=== PATIENT | female | born 1960 | race Caucasian/White ===

== ENCOUNTER 2018-11-09 15:16 | Outpatient (REF) | payer MEDICAID, SELFPAY ==
--- NOTE | 2018-11-09 14:45 | PAPFT_PTH ---
PATIENT: Marleni Christianson LOC: [facility] U#:[id number] AGE/SX: 58/F ROOM: RE11/09/[address]: AME Cedeño : 1960 BED: DIS: 11/09/2018 SPEC #: [id number] RECD: 11/09/18 18:34 STATUS: BASIM RERico #: [id number] LINDA: 11/09/18 14:[address]: Marcela Arceo DEPT: [facility] Cytology RECD BY: Leslie Younger ENTERED: 11/09/18 18:34 SP TYPE: PAPFT OTHR DR: Nimo Nair Tissues: 1 - CX/ENDOCX FOR PAP SMEARS Procedures: PAP THIN PREP/UVM Screening HPV DNA PROBE Comments: [id number]
== END 2018-11-09 15:36 ==
LOC: LBN 15:16
PROVIDERS: PCP Physician Assistant Medical; Visit Provider Nurse Practitioner Family
DX: Z12.4 Encounter for screening for malignant neoplasm of cervix (principal); Z11.51 Encounter for screening for human papillomavirus (HPV)
CPT/HCPCS: 88142; 87624

== ENCOUNTER 2018-11-18 01:10 | Outpatient (CLI) | payer MEDICAID, SELFPAY ==
--- NOTE | 2018-11-18 09:45 | DI.US_ITS ---
SYMPTOMS/DIAGNOSIS: PELVIC PAIN, R10.2 PELVIC ULTRASOUND: A transabdominal and transvaginal examination was carried out. The uterus measures 5.4 cm in length, 2.4 cm in height and 3.5 cm in width with an endometrial stripe thickness of 2.6 mm. The right ovary measures 1.5 x 1.2 x 1.8 cm. The left ovary was not visualized. In addition to the above, there is incidental note made of small nabothian cysts. A lobulated small right kidney measures 6.5 cm in length. The left kidney measures 11.6 cm. SUMMARY: The left ovary was not visualized. A small right kidney is noted. There is no evidence of a mass or hydronephrosis and the finding may be related to a previous vascular insult or be on a congenital basis.
--- NOTE | 2018-11-18 10:30 | DI.MAMMO_ITS ---
SYMPTOM/DIAGNOSIS: SCREENING, Z12.31 MAMMOGRAMS: Mammograms were interpreted according to the usual protocol including computer analysis with CAD system, tomosynthesis and C view imaging. Comparison is made with exams from [id number]. The breasts are composed of scattered fibroglandular densities, breast density, Category B. No suspicious masses or suspicious microcalcifications are seen. There has been no significant change. IMPRESSION: Category 1B, negative mammogram. Yearly screening mammography is recommended. [facility] ASSESSMENT OF FINDINGS: Negative. Category 1. Patient will receive a letter notifying them of these results. BI-RADS category B. There are scattered areas of fibroglandular density.
== END 2018-11-18 01:30 ==
PROVIDERS: PCP Physician Assistant Medical; Visit Provider Nurse Practitioner Family
DX: R10.2 Pelvic and perineal pain (principal); Z12.31 Encounter for screening mammogram for malignant neoplasm of breast
CPT/HCPCS: 77063; 77067; 76830; 76856

== ENCOUNTER 2018-12-28 14:03 | Outpatient (REF) | payer MEDICAID, SELFPAY ==
[2018-12-28 21:27] LABS: Abs Immature Grans 0.05 k/cumm (0.0-0.09); Absolute Basophil Count 0.06 k/cumm (0.0-0.2); Absolute Eosinophil Count 0.32 k/cumm (0.0-0.7); Absolute Lymphocyte Count 3.26 k/cumm (1.2-3.4); Absolute Monocyte Count 0.61 k/cumm (0.11-0.7); Absolute Neutrophil Count 5.34 k/cumm (1.2-6.7); Basophils % 0.6; Eosinophils % 3.3; HCT 41.2 % (36.0-46.0); HGB 13.9 g/dL (12.0-15.5); Immature Grans % 0.5; Lymphocytes % 33.8; Mean Corp. HGB Concentration 33.7 g/dL (32.0-36.0); Mean Corpuscular Hemoglobin 30.8 pg (27.0-33.0); Mean Corpuscular Volume 91.4 fL (80-95); Mean Platelet Volume 10.3 fL (8.0-11.0); Monocytes % 6.3; Neutrophils % 55.5; Platelet Count 284 x1000/uL (130-400); RBC 4.51 m/cumm (4.00-5.20); RBC Distribution Width 13.9 % (11.7-14.6); White Blood Cell Count 9.64 k/cumm (4.4-10.8)
[2018-12-28 23:29] LABS: ALT 59 U/L (12-78); AST 32 U/L (15-37); Albumin 3.9 g/dL (3.4-5.0); Alkaline Phosphatase 103 U/L (46-116); Anion Gap 11.9 mmol/L (3-11); BUN 17 mg/dL (7-18); Bilirubin, Total 0.3 mg/dL (0.2-1.0); CO2 29.1 mmol/L (21.0-32.0); CREATININE 1.18 mg/dL (0.55-1.02); Chloride 99 mmol/L (98-107); Estimated GFR 47.05 (mL/min/1.73m2); Glucose 89 mg/dL (70-100); Sodium 140 mmol/L (136-145); Total Protein 7.5 g/dL (6.4-8.2)
== END 2018-12-28 14:23 ==
LOC: NCHCN 14:03
PROVIDERS: PCP Physician Assistant Medical; Visit Provider Nurse Practitioner Family
DX: R10.9 Unspecified abdominal pain (principal); R13.10 Dysphagia, unspecified
CPT/HCPCS: 80053; 85025

== ENCOUNTER 2019-02-23 06:10 | Day surgery (SDC) | payer MEDICAID, SELFPAY ==
[2019-02-23 06:40] VITALS: BP 99/54; PULSE 76; RESP 16; TEMP 36.2; O2SAT 98
--- NOTE | 2019-02-23 06:40 | W.PM.ENDDOP ---
Date of service: 02/23/19 Time of Service: 07:24 Endoscopy Report DATE OF PROCEDURE: 02/23/19 PRE-OP DIAGNOSIS: Dysphagia POST-OP DIAGNOSIS: other (Gastritis and esophagitis) PROCEDURE: EGD with biopsies by cold forceps SURGEON: Karen Whitlock ANESTHESIA: other (General/ ASA 2/ Clinton Del Toro CRNA) ESTIMATED BLOOD LOSS: 3 PATHOLOGY: other (GAstritis, esophagitis) COMPLICATIONS: None DISPOSITION: same day INDICATIONS: Mrs. Arreola is a pleasant 58 year old female who was seen in the office for dysphagia and epigastric pain. She is on omeprazole 40 daily and ranitidine 75 mg daily. Risks, benefits and complications have been reviewed. Complications include but are not limited to bleeding, pain, perforation, sore throat, aspiration, and adverse reaction to the medications. Questions were entertained and answered to their satisfaction and they wished to proceed. No guarantees were given or implied. PROCEDURE START TIME: 07:24 PROCEDURE END TIME: 07:29 FINDINGS: Moderate inflammation of the stomach Moderate inflammation of the esophagus PROCEDURE DESCRIPTION: After informed consent was obtained the patient was take to the procedure room and placed in a supine position. Monitors were applied and a time out was done. The patients name, date of , procedure type, allergies to medications and metal in their body was reviewed. A bite block was placed and the patient was sedated. Once sedated and comfortable the gastroscope was advanced through the oropharynx which was grossly normal into the esophagus. The proximal and mid-esophagus were normal. In the distal esophagus there was moderate inflammation noted. The scope was advanced into the stomach and through the pylorus into the 3rd portion of the duodenum. The duodenum was noted to be normal. The scope was retracted back into the stomach and biopsies were done to rule out H. pylori. There was moderate inflammation noted. There were no ulcers. The scope was retro-flexed. The cardia and fundus were noted to be normal. There was no hiatal hernia noted. The scope was retracted back into the esophagus and biopsies were done of the GE junction to rule out Liu's. The Z line was irregular. The GE junction was at 38 cm. The scope was removed and the patient was woken up and taken back to [facility] in stable condition. Follow up: 2-3 weeks. Will increase her Zanatc to 300 mg at night and continue with omeprazole 40 in the am.
--- NOTE | 2019-02-23 06:43 | ENDO_ITS ---
Date of service: 02/23/19 Time of Service: 07:24 Endoscopy Report DATE OF PROCEDURE: 02/23/19 PRE-OP DIAGNOSIS: Dysphagia POST-OP DIAGNOSIS: other (Gastritis and esophagitis) PROCEDURE: EGD with biopsies by cold forceps SURGEON: Karen Whitlock ANESTHESIA: other (General/ ASA 2/ Clinton Del Toro CRNA) ESTIMATED BLOOD LOSS: 3 PATHOLOGY: other (GAstritis, esophagitis) COMPLICATIONS: None DISPOSITION: same day INDICATIONS: Mrs. Arreola is a pleasant 58 year old female who was seen in the office for dysphagia and epigastric pain. She is on omeprazole 40 daily and ranitidine 75 mg daily. Risks, benefits and complications have been reviewed. Complications include but are not limited to bleeding, pain, perforation, sore throat, aspiration, and adverse reaction to the medications. Questions were entertained and answered to their satisfaction and they wished to proceed. No guarantees were given or implied. PROCEDURE START TIME: 07:24 PROCEDURE END TIME: 07:29 FINDINGS: Moderate inflammation of the stomach Moderate inflammation of the esophagus PROCEDURE DESCRIPTION: After informed consent was obtained the patient was take to the procedure room and placed in a supine position. Monitors were applied and a time out was done. The patients name, date of , procedure t ype, allergies to medications and metal in their body was reviewed. A bite block was placed and the patient was sedated. Once sedated and comfortable the gastroscope was advanced through the orop harynx which was grossly normal into the esophagus. The proximal and mid- esophagus were normal. In the distal esophagus there was moderate inflammation noted. The scope was advanced into the stomach and through the pylorus into the 3rd portion of the duodenum. The duodenum was noted to be normal. The scope was retracted back into the stomach and biopsies were done to rule out H. pylori. There was moderate inflammation noted. There were no ulcers. The scope was retro-flexed. The cardia and fundus were noted to be normal. There was no hiatal hernia noted. The scope was retracted back into the esophagus and biopsies were done of the GE junction to rule out Liu's. The Z line was irregular. The GE junction was at 38 cm. The scope was removed and the patient was woken up and taken back to [facility] in stable condition. Follow up: 2-3 weeks. Will increase her Zanatc to 300 mg at night and continue with omeprazole 40 in the am.
--- NOTE | 2019-02-23 06:43 | W.PM.DSUDISC ---
Discharge Plan Disposition Patient Disposition: HOME Condition: Good Discharge Details Reason For Visit: Dysphagia and heart burn Attending Provider: Karen Whitlock Primary Care Provider: Kathy Wright Home Meds and New Rx's Prescriptions: New ranitidine HCl 300 mg capsule 300 mg PO QHS Qty: 30 RF: 5 Continued clonazepam [Klonopin] 0.5 mg tablet 0.5 mg PO BID PRNRF: 0 enalapril-hydrochlorothiazide 10-25 mg tablet 1 tab PO DAILY RF: 0 omeprazole [Prilosec] 20 MG capsule,delayed release(DR/EC) 40 mg PO DAILY RF: 0 albuterol sulfate [ProAir HFA] 8.5 GM HFA aerosol inhaler 2 puff Inhalation Q4H PRN RF: 0 clonidine HCl 0.1 MG tablet 0.1 mg PO HS RF: 0 metoprolol tartrate 50 MG tablet 50 mg PO BID RF: 0 Bupropion HCl 100 MG tablet 100 mg PO HS RF: 0 cyanocobalamin (vitamin B-12) 2,500 MCG tablet 2,000 mcg PO DAILY RF: 0 levothyroxine 100 MCG tablet 100 mcg PO DAILY Qty: 30 RF: 3 Flovent HFA 12 GM HFA aerosol inhaler 110 mcg Inhalation BID Qty: 1 RF: 0 levalbuterol tartrate [Xopenex HFA] 15 GM HFA aerosol inhaler 2 inh Inhalation Q4H PRN PRNQty: 0 RF: 0 fluticasone propionate [Flonase Allergy Relief] 50 mcg/actuation [place],Suspension 2 spray INTRANASAL DAILY PRN PRNRF: 0 Discontinued ranitidine HCl 75 mg Tablet 75 mg PO DAILY RF: 0 Discharge Instructions Instructions: Gastritis (DC), Diet for Stomach Ulcers and Gastritis (GEN), Upper Endoscopy (DC), Esophagitis (DC) Additional Instructions: Findings: Inflammation of the stomach and esophagus Follow up: 03/09/19 at 1:15 pm Please call if you develop: fevers >101.5 Nausea or Vomiting Abdominal pain that is not transient DAY SURGERY UNIT POST COLONOSCOPY INSTRUCTIONS 1. Because there will be medication in your system for the next 24 hours, you may feel a little sleepy. Your coordination will be affected. Therefore: a. Do not drive or operate dangerous equipment for 24 hours. b. Do not drink alcohol beverages for 24 hours (not even beer). c. Plan to go home and rest for the day. 2. Generally there are no restrictions on your activity after a day or so has gone by, but you may feel a bit fatigued for a few days. 3 After you arrive home you may have a light meal and return to a normal diet as you can tolerate it without feeling sick to your stomach. 4. After surgery, you may feel pain or discomfort. This should be only transient, but if it persists please contact your doctor. 5. If there are any questions regarding the findings of your procedure, please feel free to contact your doctor. 6. If you are unable to contact your doctor with a problem, contact the hospital at [phone]. 7. Continue all your regular medications unless directed otherwise. I understand the above instructions and have no questions. Signature of Patient or Responsible Adult Escort Date/Time Name of Responsible Adult Escort Signature of Nurse Date/Time Referrals: Karen Whitlock MD [ [facility] STAFF PHYSICIAN] - 03/09/19 1:15 pm Activity:: Activity as Tolerated Diet:: As Tolerated Discharge Orders Discharge Orders: Discharge Order (Routine); Ordered 02/23/19 Ordered By: Karen Whitlock DS: Diagnosis Discharge Diagnosis (1) H/O esophagogastroduodenoscopy: Status: Chronic (2) Esophagitis determined by endoscopy: Status: Acute (3) Gastritis: Status: Acute
[2019-02-23] MEDS: Lactated Ringers 1,000 ML 80 ML IV (07:02)
--- NOTE | 2019-02-23 07:24 | STOM_PTH ---
PATIENT: Marleni Christianson LOC: [facility] U#:[id number] AGE/SX: 58/F ROOM: RE02/23/[address]: Karen Whitlock MD : 1960 BED: DIS: 02/23/2019 SPEC #: [id number] RECD: 02/23/19 12:50 STATUS: BASIM CANNON #: [id number] LINDA: 02/23/19 07:[address]: Karen Whitlock DEPT: Surgical Specimen RECD BY: Leslie Younger ENTERED: 02/23/19 12:52 SP TYPE: STOMACH OTHR DR: Kathy Wright Tissues: 1 - STOMACH BIOPSY 2 - ESOPHAGUS BIOPSY Procedures: GROSS AND MICRO LEVEL 4 Comments: [id number]
[2019-02-23 08:04] VITALS: BP 111/56; PULSE 78; RESP 18; TEMP 36.3; O2SAT 95
== END 2019-02-23 08:21 | disposition home or self-care (01) ==
PROVIDERS: PCP Nurse Practitioner Family; Visit Provider Surgery
PROC: 0DJ68ZZ Inspection of Stomach, Via Natural or Artificial Opening Endoscopic (ICD-10-PCS; CPT 43235; principal; 2019-02-23 07:30)
DX: R13.10 Dysphagia, unspecified (principal); K31.89 Other diseases of stomach and duodenum; K20.9 Esophagitis, unspecified; J44.9 Chronic obstructive pulmonary disease, unspecified; I10 Essential (primary) hypertension
CPT/HCPCS: 43239; 88305

== ENCOUNTER 2019-03-19 09:24 | Outpatient (CLI) | payer MEDICAID, SELFPAY ==
[2019-03-19 10:38] LABS: Bilirubin Negative (Negative); Blood Negative (Negative); Clarity Clear; Glucose Negative (Negative); Ketones Negative (Negative); Leukocyte Esterase Trace (Negative); Nitrite Negative (Negative); Specific Gravity 1.015 (1.005-1.025); Urobilinogen 0.2 EU/dL (Up TO 0.2)
[2019-03-19 10:53] LABS: Bacteria Moderate HPF (Negative); Epithelial Cells Many HPF (Negative); Other Cells Few Renal (Negative); RBC Negative (0-2)
[2019-03-19 10:54] LABS: C & S Indicated? No/Sq. Contamination; Casts Negative LPF (Negative); Crystals Negative HPF (Negative); Mucus Negative (Negative)
[2019-03-19 11:10] LABS: Cholesterol 252 mg/dL (50-200); Glucose 116 mg/dL (70-100); HDL Cholesterol 49 mg/dL (40-60); LDL CHOLESTEROL 168 mg/dL (<100); Triglyceride 192 mg/dL (30-150)
== END 2019-03-19 09:44 ==
PROVIDERS: PCP Nurse Practitioner Family; Referring Provider Urology; Visit Provider Nurse Practitioner Family
DX: R30.0 Dysuria (principal); I10 Essential (primary) hypertension; R10.9 Unspecified abdominal pain; R13.10 Dysphagia, unspecified; M70.90 Unspecified soft tissue disorder related to use, overuse and pressure of unspecified site
CPT/HCPCS: 36415; 80061; 82947; 83721; 81003; 81015

== ENCOUNTER 2019-03-22 11:36 | Outpatient (REF) | payer MEDICAID, SELFPAY ==
[2019-03-22 22:43] LABS: Anion Gap 12.2 mmol/L (3-11); BUN 13 mg/dL (7-18); CO2 24.8 mmol/L (21.0-32.0); CREATININE 0.97 mg/dL (0.55-1.02); Calcium 9.3 mg/dL (8.5-10.1); Chloride 102 mmol/L (98-107); Estimated GFR 58.98 (mL/min/1.73m2); Glucose 115 mg/dL (70-100); Potassium 4.1 mmol/L (3.5-5.1); Sodium 139 mmol/L (136-145); TSH 0.96 uIU/mL (0.358-3.74)
[2019-03-22 23:34] LABS: Vitamin B12 1953 pg/mL (193-986)
== END 2019-03-22 11:56 ==
LOC: NCHCN 11:36
PROVIDERS: PCP Nurse Practitioner Family; Visit Provider Nurse Practitioner Family
DX: R53.83 Other fatigue (principal)
CPT/HCPCS: 80048; 82607; 84443

== ENCOUNTER 2019-04-03 09:49 | Emergency (ER) | payer MEDICAID, SELFPAY ==
[2019-04-03 10:05] VITALS: BP 113/69; PULSE 76; RESP 24; TEMP 36.7; O2SAT 100
[2019-04-03 10:37] LABS: Abs Immature Grans 0.02 k/cumm (0.0-0.09); Absolute Basophil Count 0.05 k/cumm (0.0-0.2); Absolute Eosinophil Count 0.18 k/cumm (0.0-0.7); Absolute Lymphocyte Count 2.27 k/cumm (1.2-3.4); Absolute Monocyte Count 0.37 k/cumm (0.11-0.7); Absolute Neutrophil Count 3.61 k/cumm (1.2-6.7); Basophils % 0.8; Eosinophils % 2.8; HGB 13.6 g/dL (12.0-15.5); Immature Grans % 0.3; Lymphocytes % 34.9; Mean Corp. HGB Concentration 33.2 g/dL (32.0-36.0); Mean Corpuscular Hemoglobin 30.6 pg (27.0-33.0); Mean Corpuscular Volume 92.1 fL (80-95); Mean Platelet Volume 9.8 fL (8.0-11.0); Monocytes % 5.7; Neutrophils % 55.5; Platelet Count 270 x1000/uL (130-400); RBC 4.45 m/cumm (4.00-5.20); RBC Distribution Width 13.9 % (11.7-14.6)
[2019-04-03] MEDS: Ketorolac 15 MG/ML VIAL IVP (10:39)
--- NOTE | 2019-04-03 10:48 | ED.GENADUL_ITS ---
Discharge Plan Disposition Patient Disposition: HOME Discharge Details Chief Complaint: Nk/Back Pain Clinical Impression: Compression fracture of L1 vertebra Primary Care Provider: Kathy Wright ED Provider: David Anthony Home Meds and New Rx's Prescriptions: New oxycodone 5 mg tablet 5 mg PO Q8H Qty: 5 RF: 0 Continued clonazepam [Klonopin] 0.5 mg tablet 0.5 mg PO BID PRNRF: 0 enalapril-hydrochlorothiazide 10-25 mg tablet 1 tab PO DAILY RF: 0 omeprazole [Prilosec] 20 MG capsule,delayed release(DR/EC) 40 mg PO DAILY RF: 0 albuterol sulfate [ProAir HFA] 8.5 GM HFA aerosol inhaler 2 puff Inhalation Q4H PRN RF: 0 clonidine HCl 0.1 MG tablet 0.1 mg PO HS RF: 0 metoprolol tartrate 50 MG tablet 50 mg PO BID RF: 0 Bupropion HCl 100 MG tablet 100 mg PO HS RF: 0 cyanocobalamin (vitamin B-12) 2,500 MCG tablet 2,000 mcg PO DAILY RF: 0 levothyroxine 100 MCG tablet 100 mcg PO DAILY Qty: 30 RF: 3 Flovent HFA 12 GM HFA aerosol inhaler 110 mcg Inhalation BID Qty: 1 RF: 0 levalbuterol tartrate [Xopenex HFA] 15 GM HFA aerosol inhaler 2 inh Inhalation Q4H PRN PRNQty: 0 RF: 0 fluticasone propionate [Flonase Allergy Relief] 50 mcg/actuation [place],Suspension 2 spray INTRANASAL DAILY PRN PRNRF: 0 ranitidine HCl 300 mg capsule 300 mg PO QHS Qty: 30 RF: 5 Discharge Instructions Instructions: Low Back Strain (ED) Referrals: Kathy Wright [Primary Care Provider] - 04/05/19 8:00 am Discharge Data Discharge Date/Time-TO BE ENTERED AT DEPARTURE: 04/03/19 12:27 Medical Decision Making This is a nontoxic-appearing 58-year-old female presenting with apparent L1 com pression fracture on x-ray roughly 20% loss of height as read by radiologist. No neurological symptoms on exam. Work-up in the ED today shows no concerning lab work. Patients symptoms much improved status post hydromorphone 0.5 mg IV push x1. She is able to ambulate without assistance here. We discussed pain management at home with [id number] acetaminophen and ibuprofen. Small supply of oxycodone 5 mg tablets prescribed today. I have recommended that she follow-up with her primary care provider on Friday for reevaluation and discuss the possibility of outpatient physical therapy. Strict return precautions provided including severe pain, lower extremity weakness/numbness, urinary incontinence or retention. She is stable for discharge at this Lab Data Laboratory Tests Range/Units 04/03/19 04/03/19 10:30 10:30 WBC (4.4-10.8) k/cumm 6.50 RBC (4.00-5.20) m/cumm 4.45 Hgb (12.0-15.5) g/dL 13.6 Hct (36.0-46.0) % 41.0 MCV (80-95) fL 92.1 MCH (27.0-33.0) pg 30.6 MCHC (32.0-36.0) g/dL 33.2 RDW (11.7-14.6) % 13.9 Plt Count (130-400) x1000/uL 270 MPV (8.0-11.0) fL 9.8 Immature Gran % 0.3 Neutrophils % 55.5 Lymphocytes % 34.9 Monocytes % 5.7 Eosinophils % 2.8 Basophils % 0.8 Absolute Neutrophils (1.2-6.7) k/cumm 3.61 Absolute Lymphocytes (1.2-3.4) k/cumm 2.27 Absolute Monocytes (0.11-0.7) k/cumm 0.37 Absolute Eosinophils (0.0-0.7) k/cumm 0.18 Absolute Basophils (0.0-0.2) k/cumm 0.05 Sodium (136-145) mmol/L 136 Potassium (3.5-5.1) mmol/L 4.3 Chloride (98-107) mmol/L 100 Carbon Dioxide (21.0-32.0) mmol/L 24.0 Anion Gap (3-11) mmol/L 12.0 H BUN (7-18) mg/dL 9 Creatinine (0.55-1.02) mg/dL 1.18 H Estimated GFR/1.73 m2 (mL/min/1.73m2) 47.05 Glucose (70-100) mg/dL 137 H Calcium (8.5-10.1) mg/dL 9.3 Magnesium (1.8-2.4) mg/dL 1.7 L Total Bilirubin (0.2-1.0) mg/dL 0.3 AST (15-37) U/L 42 H ALT (12-78) U/L 72 Alkaline Phosphatase (46-116) U/L 94 Troponin I (0.00-0.06) ng/mL < 0.02 Total Protein (6.4-8.2) g/dL 7.9 Albumin (3.4-5.0) g/dL 3.8 HPI General Date/Time Provider Initiated Documentation: 04/03/19 09:51 . HPI Narrative: Patient is a 58-year-old female with a significant past medical history of anxiety, fibromyalgia, GERD, hypothyroidism, hypertension, IBS and chronic pain who presents today with an unwitnessed fall. She states that she was in her living room when she fell backwards landing on her buttock. She states that her legs gave out. She denies any preceding dizziness, chest pain or lightheadedness. She does state that she felt dizzy after the fall. Her pain is located primarily in her lower back radiating to each buttock. She has some mild mid back pain. No neck or head pain. She denies any head or neck trauma. Related Data Home Medications Medication Instructions Recorded Confirmed omeprazole [Prilosec] 40 mg PO DAILY 02/10/13 04/03/19 albuterol sulfate [ProAir HFA] 2 puff INHALATION Q4H PRN inhaler 07/25/15 04/03/19 clonidine HCl 0.1 mg PO HS 06/19/16 04/03/19 Bupropion HCl 100 mg PO HS tab-cap 12/18/17 04/03/19 metoprolol tartrate 50 mg PO BID tab-cap 12/18/17 04/03/19 Flovent HFA 110 mcg INHALATION BID #1 inhaler 12/24/17 04/03/19 levalbuterol tartrate [Xopenex HFA] 2 inh INHALATION Q4H PRN PRN #0 12/24/17 04/03/19 levothyroxine 100 mcg PO DAILY #30 tab 12/24/17 04/03/19 cyanocobalamin (vitamin B-12) 2,000 mcg PO DAILY 04/02/18 04/03/19 enalapril 10 1 tab PO DAILY 11/09/18 04/03/19 mg-hydrochlorothiazide 25 mg tablet clonazepam 0.5 mg tablet 0.5 mg PO BID PRN 02/01/19 04/03/19 fluticasone propionate [Flonase 2 spray INTRANASAL DAILY PRN PRN 02/18/19 04/03/19 Allergy Relief] ranitidine HCl 300 mg PO QHS #30 cap 02/23/19 04/03/19 oxycodone 5 mg PO Q8H #5 tab 04/03/19 Previous Rx's Medication Instructions Recorded Flovent HFA 110 mcg INHALATION BID #1 inhaler 12/24/17 levalbuterol tartrate [Xopenex HFA] 2 inh INHALATION Q4H PRN PRN #0 12/24/17 levothyroxine 100 mcg PO DAILY #30 tab 12/24/17 ranitidine HCl 300 mg PO QHS #30 cap 02/23/19 oxycodone 5 mg PO Q8H #5 tab 04/03/19 Allergies Allergy/AdvReac Type Severity Reaction Status Date / Time prochlorperazine edisylate Allergy Severe Psychosis Verified 04/03/19 10:10 [From Compazine] prochlorperazine maleate Allergy Severe Psychosis Verified 04/03/19 10:10 [From Compazine] gluten Allergy Verified 04/03/19 10:10 combid Allergy Severe Psychosis Uncoded 04/03/19 10:10 General Stated Complaint: Nk/Back Pain JOSIE: 3 Review of Systems Constitutional Denies body ache(s), Denies chills, Denies fever(s), Denies headache(s), Denies lethargy, Denies night sweats, Denies weakness and Denies weight loss Eyes Denies blurry vision and Denies floaters ENT Reports dizziness, Denies headache(s), Denies nasal trauma and Denies neck pain Cardiovascular Denies chest pain, Denies syncope, Denies rapid heart rate, Denies edema, Denies dyspnea and Denies dyspnea on exertion Respiratory Denies dyspnea and Denies dyspnea on exertion Gastrointestinal Denies diarrhea, Denies nausea and Denies vomiting Genitourinary Denies dysuria and Denies urinary incontinence Musculoskeletal Reports abnormal gait, Reports back pain, Denies myalgias, Denies atrophy, Denies limited range of motion, Denies neck pain, Denies numbness and Denies radiating pain into limb Neurologic Reports abnormal gait, Reports dizziness, Denies syncope, Denies headache(s), Denies numbness and Denies weakness [facility] Medical History Gastritis (Acute) Esophagitis determined by endoscopy (Acute) Dizziness (Acute) Tachycardia (Acute) Blood glucose elevated (Chronic) COPD (chronic obstructive pulmonary disease) (Chronic) Dysphagia (Chronic) Elevated LFTs (Chronic) Memory loss (Chronic) Peripheral neuropathy (Chronic) Reflex sympathetic dystrophy (Chronic) ANXIETY STATE NOS CELIAC DISEASE CHRONIC BOWEL DISTURBANCE/CHRONIC CONSTIPATION CHRONIC PAIN SYN COUGH Chronic pain Depression Elevated lipids FYBROMYALGIA GERD HX TOBACCO USE HYPOTHYROIDISM Hypertension IBS INSOMNIA RSD SINUSITIS URINARY INCON. Surgical History H/O esophagogastroduodenoscopy (Chronic ~02/23/19) S/P rotator cuff repair (Acute) History of esophagogastroduodenoscopy (EGD) (Chronic) Bladder Surgery Ligation of fallopian tube Rotator Cuff Repair (~2007) Family History Mother Pneumonia Father Mesothelioma Grandmother Breast cancer Social History Smoking/Tobacco Use Status: Current every day Alcohol Intake: never Drug use: Rarely Substance use type: marijuana Details: can't afford it Do you feel safe at home: Yes Do you feel safe in your relationship?: Yes History History 4 Para 2 Hx # Term Pregnancies Multiple births Hx # Pregnancies Ectopic pregnancies AB induced Hx Number of Living Children AB spontaneous Exam Const General: cooperative, healthy appearing and in distress mild Nutritional Appearance: average body habitus Orientation: alert, awake and oriented x3 HENMT Head: normal to inspection Ears: hearing grossly normal bilaterally General nose exam: external nose normal Face and sinus: normal facial exam Mouth: oral mucosae normal Eyes General: appearance normal, both eyes and all related structures Alignment and Position: alignment normal Neck Neck: normal visual inspection, full ROM, no meningeal signs, trachea midline, nontender and no torticollis Lymphatic: no lymphadenopathy noted Chest Chest: normal inspection of the chest and normal palpation of entire chest wall Resp Effort & Inspection: normal respiratory effort and able to speak in complete sentences Auscultation: clear to auscultation bilaterally Cardio Jugular venous pressure: no JVD Rate: regular rate Rhythm: regular rhythm and abnormal rhythm Heart Sounds: S1 normal and S2 normal Pulses: normal peripheral pulses GI Inspection: normal to inspection Palpation: soft, no hepatosplenomegaly, not firm, no guarding and nontender Back/Spine/Pelvis Back: no CVA tenderness Cervical Spine: normal cervical lordosis and cervical ROM normal Thoracic/Lumbar Spine: thoracic and lumbar spine normal to inspection, straight leg raise negative bilaterally, pain with thoraco-lumbar ROM, paraspinal tenderness, thoraco-lumbar ROM limited, thoracic spinal tenderness and lumbar spinal tenderness Pelvis: no pain with anterior-posterior compression Sacrum: no tenderness Coccyx: no tenderness Skin General skin exam: no rashes or lesions noted Wounds: no wounds Neuro General: alert, awake, oriented x3, tone normal, moves all extremities, normal light touch, pain and propioception, no focal motor deficits and CN's II-XI intact bilaterally Extrem General: normal to inspection, full ROM and normal capillary refill Course Vital Signs Temperature 36.7 C 04/03/19 10:05 Pulse 76 04/03/19 10:05 Respiratory Rate 24 04/03/19 10:05 Blood Pressure 113/69 04/03/19 10:05 Pulse Oximetry 100 04/03/19 10:05 Temperature 36.7 C 04/03/19 10:05 Temperature Source Temporal Artery Scan 04/03/19 10:05 Pulse 76 04/03/19 10:05 Respiratory Rate 24 04/03/19 10:05 Respiratory Effort Non-Labored 04/03/19 10:08 Blood Pressure 113/69 04/03/19 10:05 Blood Pressure Position Supine 04/03/19 10:05 Pulse Oximetry 100 04/03/19 10:05 Oxygen Delivery Method Room Air 04/03/19 10:05 Oxygen Flow Rate 0 04/03/19 10:05 Pain Level 10 04/03/19 10:39 Lab/Test Results Lab/Test Results: Laboratory Tests Range/Units 04/03/19 10:30 WBC (4.4-10.8) k/cumm 6.50 RBC (4.00-5.20) m/cumm 4.45 Hgb (12.0-15.5) g/dL 13.6 Hct (36.0-46.0) % 41.0 MCV (80-95) fL 92.1 MCH (27.0-33.0) pg 30.6 MCHC (32.0-36.0) g/dL 33.2 RDW (11.7-14.6) % 13.9 Plt Count (130-400) x1000/uL 270 MPV (8.0-11.0) fL 9.8 Immature Gran % 0.3 Neutrophils % 55.5 Lymphocytes % 34.9 Monocytes % 5.7 Eosinophils % 2.8 Basophils % 0.8 Absolute Neutrophils (1.2-6.7) k/cumm 3.61 Absolute Lymphocytes (1.2-3.4) k/cumm 2.27 Absolute Monocytes (0.11-0.7) k/cumm 0.37 Absolute Eosinophils (0.0-0.7) k/cumm 0.18 Absolute Basophils (0.0-0.2) k/cumm 0.05
[2019-04-03 10:54] LABS: ALT 72 U/L (12-78); AST 42 U/L (15-37); Albumin 3.8 g/dL (3.4-5.0); Alkaline Phosphatase 94 U/L (46-116); BUN 9 mg/dL (7-18); Bilirubin, Total 0.3 mg/dL (0.2-1.0); CREATININE 1.18 mg/dL (0.55-1.02); Calcium 9.3 mg/dL (8.5-10.1); Chloride 100 mmol/L (98-107); Estimated GFR 47.05 (mL/min/1.73m2); Glucose 137 mg/dL (70-100); Magnesium 1.7 mg/dL (1.8-2.4); Potassium 4.3 mmol/L (3.5-5.1); Sodium 136 mmol/L (136-145); Total Protein 7.9 g/dL (6.4-8.2)
[2019-04-03 11:00] LABS: Troponin I < 0.02 ng/mL (0.00-0.06)
--- NOTE | 2019-04-03 11:21 | DI.RAD_ITS ---
SYMPTOM/DIAGNOSIS: AXIAL LOAD INJURY, SEVERE BACK PAIN THORACIC SPINE: Three views were obtained. There is a slight left convex thoracolumbar scoliosis. There are mild degenerative changes of the thoracic spine. Intervertebral disc spaces appear fairly well maintained. No acute fracture identified. LUMBOSACRAL SPINE: Six views were obtained. There is a mild anterior compression fracture of L vertebral body which was not present on previous abdominal CT of 05/2018. This may represent an acute fracture. The intervertebral disc spaces appear fairly well maintained throughout the lumbar region. No evidence of spondylolysis or spondylolisthesis. CONCLUSION: L 1 anterior compression fracture. Posterior elements not ideally visualized but no gross disruption of the posterior elements is seen on these films. If there further clinical concern regarding neural impingement, additional evaluation with CT or MR could be obtained.
--- NOTE | 2019-04-03 11:44 | DI.VRAD_ITS ---
EXAM: XR Thoracic Spine, 3 Views EXAM DATE/TIME: 04/03/2019 11:19 AM CLINICAL HISTORY: 58 years old, female; Other: Mid back; Patient HX: Severe midline lower back pain TECHNIQUE: Imaging protocol: XR of the thoracic spine, 3 views. COMPARISON: No relevant prior studies available. FINDINGS: Vertebrae: Degenerative changes in the thoracic spine. Mild levoscoliosis No significant compression fracture. Soft tissues: Normal. IMPRESSION: No significant compression fracture. Dictated and Authenticated by: Joelle Craven MD. Ordering:VIJAYA Hernandez MD
[2019-04-03] MEDS: HYDROmorphone 2 MG/ML VIAL 0.5 MG IVP (11:46)
--- NOTE | 2019-04-03 11:46 | DI.VRAD_ITS ---
EXAM: XR Lumbosacral Spine, 4 or 5 Views EXAM DATE/TIME: 04/03/2019 10:18 AM CLINICAL HISTORY: 58 years old, female; Low back pain; Patient HX: Severe midline lower back pain. Started today. PT reports collapse when standing TECHNIQUE: Imaging protocol: XR of the lumbosacral spine, 4 or 5 views. COMPARISON: US PELVIS TRANSVAGINAL 11/18/2018 3:28 PM FINDINGS: Vertebrae: Compression fracture of L1 may be acute. 20% compression. Soft tissues: Normal. IMPRESSION: Compression fracture of L1 may be acute. 20% compression. Dictated and Authenticated by: Joelle Craven MD. Ordering:VIJAYA Hernandez MD
[2019-04-03 12:25] VITALS: BP 123/74; PULSE 72; RESP 16; TEMP 36.6; O2SAT 98
--- NOTE | 2019-04-03 12:30 | NUR.NOTE ---
1210 up walking to states feels much betterNursing Note:
== END 2019-04-03 12:27 | disposition home or self-care (01) ==
PROVIDERS: Emergency Provider Physician Assistant; PCP Nurse Practitioner Family
DX: S32.010A Wedge compression fracture of first lumbar vertebra, initial encounter for closed fracture (principal); W01.0XXA Fall on same level from slipping, tripping and stumbling without subsequent striking against object, initial encounter; J44.9 Chronic obstructive pulmonary disease, unspecified; I10 Essential (primary) hypertension; F17.210 Nicotine dependence, cigarettes, uncomplicated
CPT/HCPCS: 36415; 80053; 96374; 96375; 99284; 72072; 72110; 83735; 84484; 85025; J1885

== ENCOUNTER 2019-04-18 09:21 | Emergency (ER) | payer MEDICAID, SELFPAY ==
[2019-04-18] VITALS (14 sets, daily range): BP systolic 63–139; BP diastolic 40–105; PULSE 55–152; RESP 16; TEMP 36.7–36.9; O2SAT 91–98
--- NOTE | 2019-04-18 09:22 | W.ED.GENAD ---
Discharge Plan Disposition Patient Disposition: HOME Condition: Fair Discharge Details Chief Complaint: GI Bleed Clinical Impression: Colitis presumed infectious, Gastritis, Acute GI bleeding, Burst fracture of lumbar vertebra, Incidental pulmonary nodule Primary Care Provider: Kathy Wright ED Provider: Sonya Buchanan Home Meds and New Rx's Prescriptions: New ciprofloxacin HCl [Cipro] 500 mg tablet 500 mg PO BID Qty: 10 RF: 0 metronidazole [Flagyl] 500 mg tablet 500 mg PO TID Qty: 15 RF: 0 sucralfate [Carafate] 1 gram tablet 1 gm PO QACHS Qty: 30 RF: 0 tramadol 50 mg tablet 50 mg PO Q6H PRN (Reason: pain) Qty: 7 RF: 0 Continued clonazepam [Klonopin] 0.5 mg tablet 0.5 mg PO BID PRNRF: 0 enalapril-hydrochlorothiazide 10-25 mg tablet 1 tab PO DAILY RF: 0 omeprazole [Prilosec] 20 MG capsule,delayed release(DR/EC) 40 mg PO DAILY RF: 0 albuterol sulfate [ProAir HFA] 8.5 GM HFA aerosol inhaler 2 puff Inhalation Q4H PRN RF: 0 clonidine HCl 0.1 MG tablet 0.1 mg PO HS RF: 0 metoprolol tartrate 50 MG tablet 50 mg PO BID RF: 0 Bupropion HCl 100 MG tablet 100 mg PO HS RF: 0 cyanocobalamin (vitamin B-12) 2,500 MCG tablet 2,000 mcg PO DAILY RF: 0 levothyroxine 100 MCG tablet 100 mcg PO DAILY Qty: 30 RF: 3 Flovent HFA 12 GM HFA aerosol inhaler 110 mcg Inhalation BID Qty: 1 RF: 0 levalbuterol tartrate [Xopenex HFA] 15 GM HFA aerosol inhaler 2 inh Inhalation Q4H PRN PRNQty: 0 RF: 0 fluticasone propionate [Flonase Allergy Relief] 50 mcg/actuation Hammond,Suspension 2 spray INTRANASAL DAILY PRN PRNRF: 0 ranitidine HCl 300 mg capsule 300 mg PO QHS Qty: 30 RF: 5 oxycodone 5 mg tablet 5 mg PO Q8H Qty: 5 RF: 0 loratadine 10 mg Capsule RF: 0 Narcan 4 mg/actuation Hammond,Non-Aerosol RF: 0 Discharge Instructions Instructions: Gastritis (ED), Infectious Colitis (ED) Additional Instructions: Encourage hydration. Your diarrhea is thought to be infectious. Please take ciprofloxacin and Flagyl as prescribed. Please take [id number] probiotic. Please continue with your previous GI regimen and add the Carafate as prescribed to help heal any possible ulcers. Stop using anti-inflammatories (ie Ibuprofen, Advil, Motrin) as these may be causing your bleeding You have a pulmonary nodule on your CT scan that will need to be addressed by your primary care. Stop smoking. In regard to your spinal fracture, please use Tylenol for your pain. Continue with your topical options (ie. patches). [facility] orthopedics advised you may benefit from TLSO brace, you may get this at [facility], bring your prescription there to pick this up. If you have difficulty getting this please call to speak with [employer]. Call [facility] spine to schedule follow up appointment tomorrow. If you develop fevers, are unable to stay hydrated, have weakness, sensation changes or other new/worsening symptoms please seek care urgently once again. Referrals: Kathy Wright [Primary Care Provider] - Discharge Data Discharge Date/Time-TO BE ENTERED AT DEPARTURE: 04/18/19 15:15 Medical Decision Making Patient is a 58-year-old female presenting today, brought in by family, with chief complaint of bloody diarrhea. She reports that this woke her up at 1 AM. Reports that after that initial episode, she had 2 more bowel movements the last of which is an hour half prior to arrival. Endorses diffuse abdominal discomfort. No previous abdominal surgeries. Patient has been taking a large amount of anti-inflammatories for recent back injury. Patient reports that she had a injury proximal 2 weeks ago resulting in spinal fracture. She reports that she continues to have severe back pain, abdominal discomfort is been much more mild began this morning at the same time as the diarrhea. She denies any fevers or chills. No chest pain or shortness of breath. Denies any vaginal bleeding, hematuria or unusual bruising. No history of bleeding disorders. Patient has not been taking iron supplements, Pepto. She does have a history of gastritis, esophagitis, chronic pain, hypertension, GERD, hyperlipidemia, atrophic kidney with poor GFR, hypothyroidism, celiac disease, fibromyalgia. Patient has had endoscopy historically. On exam, patient appears very uncomfortable with movement of but appears to be primarily driven from back pain. Patient has a very round abdomen. She denies any alcohol consumption. She is an active smoker. Normal bowel sounds. Patient is really diffusely tender, no focal area of discomfort. No rebound tenderness or guarding. Hemorrhoids noted on exam, the wound thrombosed. She did have a black stool that appears to be blood-tinged, heme positive. With the patient's recent increase in anti-inflammatory usage, I am concerned that this may be driving her heme positive stool. Also concern for possible infectious source given the patient's diarrhea. We will obtain stool sample if possible. Feel that imaging is appropriate at this time given patient's tenderness. Will obtain labs, particularly with the patient's anemic. Discussed this plan with the patient was in agreement. Patient's white count is elevated at 13.27, anion gap of 12.8 creatinine of 1.4, no acute abnormality in the urine. Troponin is less than 0.02. Patient's creatinine is elevated around the 1.1 marked, up today from typical. She is orally hydrating here, has been giving 2 L of IV fluids. Patient reports that she has greatly decreased the amount of oral intake she was concerned that hydration may drive her diarrhea further. We did discuss this and I did encourage that she continue to try to hydrate orally. CT reviewed by radiology. Concerning for colitis with inflammatory changes, they advised inflammatory versus infectious. With the patient's white count, concern for infectious source. Stool sample pending. Patient is noted to have a burst fracture of L1, patient had a known compression fracture historically from injury 2 weeks ago. 16mm lung nodule noted in the right lower lobe their concern for pneumonia versus neoplasum. Patient is an active smoker. Consulted with general surgery regarding blood in stool, my concern also with the patient's increasing his anti-inflammatory usage as well as concern for possible infectious colitis with the CT findings and elevated white count. She advised adding Carafate to patient's regimen and begin her on Cipro and Flagyl. Patient will need a follow-up colonoscopy and should see Dr. Whitlock, who performed her endoscopy, once symptoms have cleared. Spoke with radiologist who contacted department. Discussed the incidental finding of the 6 mm focal opacity in the patient's lung. She does not have any clinical findings to suggest pneumonia. She has not had fevers or chills, no recent URI or cough. Patient has been a 40-year smoker. She has been advised for bronchoscopy by general surgeon to evaluate for any abnormalities she has also been having difficulty swallowing. Consulting with rheumatology specialist at [facility] regarding the patient's burst fracture. Patient previously been diagnosed with a compression fracture but with the fracture fragments completely displaced into the canal, he will follow-up with specialist as appropriate at this time. I examined the patient and she does not have any notable neurologic deficits. Plan to perform a postvoid residual. Patient reports that she does have difficulty completely emptying her bladder at baseline and intermittently has to self cath. Spoke with Dr. Crystal with [facility] orthopedics who will compare to the patient's previous x-rays to see if there is any change in position from the previous Negative for C. difficile, positive for lactoferrin Patient given dose of Cipro and Flagyl here. Dr. Crystal advised that there does not appear to be any drastic movement from the previous x-rays. As the patient's neurologic exam is intact, he did not feel that immediate intervention is needed at this time. Rather, he did advised to follow-up in their clinic for reevaluation. He also advised TLSO brace. We are unable to obtain this today but I will write prescription for a brace that patient may lease picker at a local medical supply place. Dr. Crystal advised that [facility] will contact the patient on Friday to schedule follow-up appointment Patient discharged home with concern for GI bleed, lung nodule, L1 burst fracture, infectious colitis. Patient placed on Flagyl and Cipro. Will add Carafate to her typical daily regimen. She will discuss the lung nodule with her primary care. We will follow-up with [facility] spine regarding her burst fracture, obtain a TLSO brace as prescribed. Patient was given strict return precautions. We discussed signs of anemia, neurologic deficits, dehydration in particular. She is able to return urgently with any new or worsening symptoms. All of her questions and concerns were addressed and she is in agreement with this plan HPI General Mode of arrival: ambulatory. Date/Time Provider Initiated Documentation: 04/18/19 09:22. Limitations to Documentation: no limitations. Information obtained by: patient, family and RN notes reviewed. History of Present Illness 58 year old F presents to the emergency department with the chief complaint of bloody diarrhea, described as moderate, Quality is described as aching (diffuse discomfort in abdomen, severe pain in back from old injury), and is localized to the abdomen. Patient reports no radiation. Patient started experiencing this hour(s) (0100) and it has been constant. No relieving factors improve symptom(s), No exacerbating factors reported . Patient notes denies chest pain, cough, diaphoresis, fever/chills, headaches, loss of appetite, malaise, nausea/vomiting, rash, shortness of breath and weakness. Patient did receive the following treatments prior to arrival, none Related Data Home Medications Medication Instructions Recorded Confirmed omeprazole [Prilosec] 40 mg PO DAILY 02/10/13 04/18/19 albuterol sulfate [ProAir HFA] 2 puff INHALATION Q4H PRN inhaler 07/25/15 04/18/19 clonidine HCl 0.1 mg PO HS 06/19/16 04/18/19 Bupropion HCl 100 mg PO HS tab-cap 12/18/17 04/03/19 metoprolol tartrate 50 mg PO BID tab-cap 12/18/17 04/18/19 Flovent HFA 110 mcg INHALATION BID #1 inhaler 12/24/17 04/18/19 levalbuterol tartrate [Xopenex HFA] 2 inh INHALATION Q4H PRN PRN #0 12/24/17 04/18/19 levothyroxine 100 mcg PO DAILY #30 tab 12/24/17 04/18/19 cyanocobalamin (vitamin B-12) 2,000 mcg PO DAILY 04/02/18 04/18/19 enalapril 10 1 tab PO DAILY 11/09/18 04/18/19 mg-hydrochlorothiazide 25 mg tablet clonazepam 0.5 mg tablet 0.5 mg PO BID PRN 02/01/19 04/18/19 fluticasone propionate [Flonase 2 spray INTRANASAL DAILY PRN PRN 02/18/19 04/18/19 Allergy Relief] ranitidine HCl 300 mg PO QHS #30 cap 02/23/19 04/18/19 oxycodone 5 mg PO Q8H #5 tab 04/03/19 04/18/19 Narcan 04/18/19 ciprofloxacin HCl [Cipro] 500 mg PO BID #10 tab 04/18/19 loratadine 04/18/19 metronidazole [Flagyl] 500 mg PO TID #15 tab 04/18/19 sucralfate [Carafate] 1 gm PO QACHS #30 tab 04/18/19 tramadol 50 mg PO Q6H PRN #7 tab 04/18/19 Previous Rx's Medication Instructions Recorded Flovent HFA 110 mcg INHALATION BID #1 inhaler 12/24/17 levalbuterol tartrate [Xopenex HFA] 2 inh INHALATION Q4H PRN PRN #0 12/24/17 levothyroxine 100 mcg PO DAILY #30 tab 12/24/17 ranitidine HCl 300 mg PO QHS #30 cap 02/23/19 oxycodone 5 mg PO Q8H #5 tab 04/03/19 ciprofloxacin HCl [Cipro] 500 mg PO BID #10 tab 04/18/19 metronidazole [Flagyl] 500 mg PO TID #15 tab 04/18/19 sucralfate [Carafate] 1 gm PO QACHS #30 tab 04/18/19 tramadol 50 mg PO Q6H PRN #7 tab 04/18/19 Allergies Allergy/AdvReac Type Severity Reaction Status Date / Time prochlorperazine edisylate Allergy Severe Psychosis Verified 04/03/19 10:10 [From Compazine] prochlorperazine maleate Allergy Severe Psychosis Verified 04/03/19 10:10 [From Compazine] gluten Allergy Verified 04/03/19 10:10 combid Allergy Severe Psychosis Uncoded 04/03/19 10:10 General JOSIE: 3 Review of Systems Constitutional Reports as per HPI, Denies chills, Denies fatigue, Denies fever(s), Denies headache(s), Denies lethargy and Denies poor appetite ENT Denies headache(s) Cardiovascular Reports as per HPI, Denies chest pain, Denies palpitations, Denies dyspnea and Denies dyspnea on exertion Respiratory Reports as per HPI, Denies cough, Denies hemoptysis, Denies pain with cough, Denies dyspnea, Denies dyspnea on exertion and Reports other (patient active smoker) Gastrointestinal Reports as per HPI, Reports abdominal pain, Denies belching, Reports melena, Denies bloating, Reports change in bowel habits, Reports tenesmus, Denies coffee ground emesis, Denies cramping, Reports diarrhea, Reports loose stools, Denies nausea, Denies vomiting and Denies hematemesis Genitourinary Denies abnormal menses (patient post menopausal), Denies hematuria, Denies urinary frequency, Denies difficulty voiding, Denies flank pain, Denies vaginal discharge and Denies vaginal odor Musculoskeletal Reports as per HPI, Denies abnormal gait, Reports back pain (recent fracture), Denies muscle weakness, Denies numbness and Denies radiating pain into limb Integumentary/Breasts Reports as per HPI and Denies rash Neurologic Reports as per HPI, Denies abnormal gait, Denies headache(s) and Denies numbness Endocrine Denies fatigue and Denies palpitations [facility] Medical History Gastritis (Acute) Esophagitis determined by endoscopy (Acute) Dizziness (Acute) Tachycardia (Acute) Blood glucose elevated (Chronic) COPD (chronic obstructive pulmonary disease) (Chronic) Dysphagia (Chronic) Elevated LFTs (Chronic) Memory loss (Chronic) Peripheral neuropathy (Chronic) Reflex sympathetic dystrophy (Chronic) ANXIETY STATE NOS CELIAC DISEASE CHRONIC BOWEL DISTURBANCE/CHRONIC CONSTIPATION CHRONIC PAIN SYN COUGH Chronic pain Depression Elevated lipids FYBROMYALGIA GERD HX TOBACCO USE HYPOTHYROIDISM Hypertension IBS INSOMNIA RSD SINUSITIS URINARY INCON. Surgical History H/O esophagogastroduodenoscopy (Chronic ~02/23/19) S/P rotator cuff repair (Acute) History of esophagogastroduodenoscopy (EGD) (Chronic) Bladder Surgery Ligation of fallopian tube Rotator Cuff Repair (~2007) Social History Smoking/Tobacco Use Status: Current every day Tobacco Type: cigarettes Alcohol Intake: never Drug use: Rarely Substance use type: marijuana Details: can't afford it Do you feel safe at home: Yes Do you feel safe in your relationship?: Yes History History 4 Para 2 Hx # Term Pregnancies Multiple births Hx # Pregnancies Ectopic pregnancies AB induced Hx Number of Living Children AB spontaneous Exam Const General: cooperative, healthy appearing, comfortable, no acute distress and well developed Nutritional Appearance: well nourished and overweight Orientation: alert and awake HENMT Head: normal to inspection Mouth: mucous membranes dry (patient appears dry) Resp Effort & Inspection: normal respiratory effort, able to speak in complete sentences and no respiratory distress Auscultation: clear to auscultation bilaterally, no rales, no rhonchi and no wheezes Cardio Rate: regular rate Rhythm: regular rhythm Heart Sounds: S1 normal and S2 normal GI Inspection: no edema, distended, obesity, no visible herniation, No visible peristalsis and No caput medusae present Palpation: soft, no hepatosplenomegaly, not firm, no guarding, no hernias, tender (mild diffuse tenderness) not at McBurney's point, Dean's sign negative, obturator sign negative, psoas sign negative and with no rebound tenderness and No ascites Percussion: normal to percussion Auscultation: normal bowel sounds Rectal Exam - female: normal sphincter tone, abnormal stool Rectal exam abnormal stool - female: black stool and blood-tinged stool, No fecal impaction, No fissure, heme positive stool, hemorrhoids (do not appear to be bleeding, not thrombosed) and No tenderness Back/Spine/Pelvis Back: no CVA tenderness Skin General skin exam: no rashes or lesions noted Trauma: no lacerations or abrasions Neuro General: alert and awake Cognition: normal cognition Speech: speech normal Gait: normal gait Psych Appearance: grossly normal and well kempt Mental Status: mental status grossly normal Speech and Movement: speech and movement normal
--- NOTE | 2019-04-18 09:26 | NUR.NOTE ---
pt developed loose bloody stools at 0100 pt describe them as black mixed with bright red blood 10 times
--- NOTE | 2019-04-18 09:42 | ED.GENADUL_ITS ---
Discharge Plan Disposition Patient Disposition: HOME Condition: Fair Discharge Details Chief Complaint: GI Bleed Clinical Impression: Colitis presumed infectious, Gastritis, Acute GI bleeding, Burst fracture of lumbar vertebra, Incidental pulmonary nodule Primary Care Provider: Kathy Wright ED Provider: Sonya Buchanan Home Meds and New Rx's Prescriptions: New ciprofloxacin HCl [Cipro] 500 mg tablet 500 mg PO BID Qty: 10 RF: 0 metronidazole [Flagyl] 500 mg tablet 500 mg PO TID Qty: 15 RF: 0 sucralfate [Carafate] 1 gram tablet 1 gm PO QACHS Qty: 30 RF: 0 tramadol 50 mg tablet 50 mg PO Q6H PRN (Reason: pain) Qty: 7 RF: 0 Continued clonazepam [Klonopin] 0.5 mg tablet 0.5 mg PO BID PRNRF: 0 enalapril-hydrochlorothiazide 10-25 mg tablet 1 tab PO DAILY RF: 0 omeprazole [Prilosec] 20 MG capsule,delayed release(DR/EC) 40 mg PO DAILY RF: 0 albuterol sulfate [ProAir HFA] 8.5 GM HFA aerosol inhaler 2 puff Inhalation Q4H PRN RF: 0 clonidine HCl 0.1 MG tablet 0.1 mg PO HS RF: 0 metoprolol tartrate 50 MG tablet 50 mg PO BID RF: 0 Bupropion HCl 100 MG tablet 100 mg PO HS RF: 0 cyanocobalamin (vitamin B-12) 2,500 MCG tablet 2,000 mcg PO DAILY RF: 0 levothyroxine 100 MCG tablet 100 mcg PO DAILY Qty: 30 RF: 3 Flovent HFA 12 GM HFA aerosol inhaler 110 mcg Inhalation BID Qty: 1 RF: 0 levalbuterol tartrate [Xopenex HFA] 15 GM HFA aerosol inhaler 2 inh Inhalation Q4H PRN PRNQty: 0 RF: 0 fluticasone propionate [Flonase Allergy Relief] 50 mcg/actuation [place],Suspension 2 spray INTRANASAL DAILY PRN PRNRF: 0 ranitidine HCl 300 mg capsule 300 mg PO QHS Qty: 30 RF: 5 oxycodone 5 mg tablet 5 mg PO Q8H Qty: 5 RF: 0 loratadine 10 mg Capsule RF: 0 Narcan 4 mg/actuation [place],Non-Aerosol RF: 0 Discharge Instructions Instructions: Gastritis (ED), Infectious Colitis (ED) Additional Instructions: Encourage hydration. Your diarrhea is thought to be infectious. Please take ciprofloxacin and Flagyl as prescribed. Please take [id number] probiotic. Please continue with your previous GI regimen and add the Carafate as prescribed to help heal any possible ulcers. Stop using anti-inflammatories (ie Ibuprofen, Advil, Motrin) as these may be causing your bleeding You have a pulmonary nodule on your CT scan that will need to be addressed by your primary care. Stop smoking. In regard to your spinal fracture, please use Tylenol for your pain. Continue wi th your topical options (ie. patches). [facility] orthopedics advised you may benefit from TLSO brace, you may get this at [facility], bring your prescription there to pick this up. If you have difficulty getting this please call to speak with Lead Project Engineer. Call [facility] [place] to schedule follow up appointment tomorrow. If you develop fevers, are unable to stay hydrated, have weakness, sensation changes or other new/worsening symptoms please seek care urgently once again. Referrals: Kathy Wright [Primary Care Provider] - Discharge Data Discharge Date/Time-TO BE ENTERED AT DEPARTURE: 04/18/19 15:15 Medical Decision Making Patient is a 58-year-old female presenting today, brought in by family, with chief complaint of bloody diarrhea. She reports that this woke her up at 1 AM. Reports that after that initial episode, she had 2 more bowel movements the last of which is an hour half prior to arrival. Endorses diffuse abdominal discomfort. No previous abdominal surgeries. Patient has been taking a large amount of anti-inflammatories for recent back injury. Patient reports that she had a injury proximal 2 weeks ago resulting in spinal fracture. She reports that she continues to have severe back pain, abdominal discomfort is been much more mild began this morning at the same time as the diarrhea. She denies any fevers or chills. No chest pain or shortness of breath. Denies any vaginal bleeding, hematuria or unusual bruising. No history of bleeding disorders. Patient has not been taking iron supplements, Pepto. She does have a history of gastritis, esophagitis, chronic pain, hypertension, GERD, hyperlipidemia, atrophic kidney with poor GFR, hypothyroidism, celiac disease, fibromyalgia. Patient has had endoscopy historically. On exam, patient appears very uncomfortable with movement of but appears to be primarily driven from back pain. Patient has a very round abdomen. She denies any alcohol consumption. She is an active smoker. Normal bowel sounds. Patient is really diffusely tender, no focal area of discomfort. No rebound tenderness or guarding. Hemorrhoids noted on exam, the wound thrombosed. She did have a black stool that appears to be blood-tinged, heme positive. With the patient's recent increase in anti-inflammatory usage, I am concerned that this may be driving her heme positive stool. Also concern for possible infectious source given the patient's diarrhea. We will obtain stool sample if possible. Feel that imaging is appropriate at this time given patient's tenderness. Will obtain labs, particularly with the patient's anemic. Discussed this plan with the patient was in agreement. Patient's white count is elevated at 13.27, anion gap of 12.8 creatinine of 1.4, no acute abnormality in the urine. Troponin is less than 0.02. Patient's creatinine is elevated around the 1.1 marked, up today from typical. She is orally hydrating here, has been giving 2 L of IV fluids. Patient reports that she has greatly decreased the amount of oral intake she was concerned that hydration may drive her diarrhea further. We did discuss this and I did encourage that she continue to try to hydrate orally. CT reviewed by radiology. Concerning for colitis with inflammatory changes, they advised inflammatory versus infectious. With the patient's white count, concern for infectious source. Stool sample pending. Patient is noted to have a burst fracture of L1, patient had a known compression fracture historically from injury 2 weeks ago. 16mm lung nodule noted in the right lower lobe their concern for pneumonia versus neoplasum. Patient is an active smoker. Consulted with general surgery regarding blood in stool, my concern also with the patient's increasing his anti-inflammatory usage as well as concern for possible infectious colitis with the CT findings and elevated white count. She advised adding Carafate to patient's regimen and begin her on Cipro and Flagyl. Patient will need a follow-up colonoscopy and should see Dr. Whitlock, who performed her endoscopy, once symptoms have cleared. Spoke with radiologist who contacted department. Discussed the incidental finding of the 6 mm focal opacity in the patient's lung. She does not have any clinical findings to suggest pneumonia. She has not had fevers or chills, no recent URI or cough. Patient has been a 40-year smoker. She has been advised for bronchoscopy by general surgeon to evaluate for any abnormalities she has also been having difficulty swallowing. Consulting with cardiac rehabilitation specialist at [facility] regarding the patient's burst fracture. Patient previously been diagnosed with a compression fracture but with the fracture fragments completely displaced into the canal, he will follow- up with specialist as appropriate at this time. I examined the patient and she does not have any notable neurologic deficits. Plan to perform a postvoid resid ual. Patient reports that she does have difficulty completely emptying her bladder at baseline and intermittently has to self cath. Spoke with Dr. Crystal with [facility] orthopedics who will compare to the patient's previous x-rays to see if there is any change in position from the previous Negative for C. difficile, positive for lactoferrin Patient given dose of Cipro and Flagyl here. Dr. Crystal advised that there does not appear to be any drastic movement from the previous x-rays. As the patient's neurologic exam is intact, he did not feel that immediate intervention is needed at this time. Rather, he did advised to follow-up in their clinic for reevaluation. He also advised TLSO brace. 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 Dr. Crystal advised that [facility] will contact the patient on Friday to schedule follow-up appointment Patient discharged home with concern for GI bleed, lung nodule, L1 burst fracture, infectious colitis. Patient placed on Flagyl and Cipro. Will add Carafate to her typical daily regimen. She will discuss the lung nodule with her primary care. We will follow-up with [facility] spine regarding her burst fracture, obtain a TLSO brace as prescribed. Patient was given strict return precautions. We discussed signs of anemia, neurologic deficits, dehydration in particular. She is able to return urgently with any new or worsening symptoms. All of her questions and concerns were addressed and she is in agreement with this plan HPI General Mode of arrival: ambulatory . Date/Time Provider Initiated Documentation: 04/18/19 09:22 . Limitations to Documentation: no limitations . Information obtained by: patient, family and RN notes reviewed . History of Present Illness 58 year old F presents to the emergency department with the chief complaint of bloody diarrhea, described as moderate, Quality is described as aching (diffuse discomfort in abdomen, severe pain in back from old injury), and is localized to the abdomen. Patient reports no radiation. Patient started experiencing this hour(s) (0100) and it has been constant. No relieving factors improve symptom(s), No exacerbating factors reported . Patient notes denies chest pain, cough, diaphoresis, fever/chills, headaches, loss of appetite, malaise, nausea/vomiting, rash, shortness of breath and weakness. Patient did receive the following treatments prior to arrival, none Related Data Home Medications Medication Instructions Recorded Confirmed omeprazole [Prilosec] 40 mg PO DAILY 02/10/13 04/18/19 albuterol sulfate [ProAir HFA] 2 puff INHALATION Q4H PRN inhaler 07/25/15 04/18/19 clonidine HCl 0.1 mg PO HS 06/19/16 04/18/19 Bupropion HCl 100 mg PO HS tab-cap 12/18/17 04/03/19 metoprolol tartrate 50 mg PO BID tab-cap 12/18/17 04/18/19 Flovent HFA 110 mcg INHALATION BID #1 inhaler 12/24/17 04/18/19 levalbuterol tartrate [Xopenex HFA] 2 inh INHALATION Q4H PRN PRN #0 12/24/17 04/18/19 levothyroxine 100 mcg PO DAILY #30 tab 12/24/17 04/18/19 cyanocobalamin (vitamin B-12) 2,000 mcg PO DAILY 04/02/18 04/18/19 enalapril 10 1 tab PO DAILY 11/09/18 04/18/19 mg-hydrochlorothiazide 25 mg tablet clonazepam 0.5 mg tablet 0.5 mg PO BID PRN 02/01/19 04/18/19 fluticasone propionate [Flonase 2 spray INTRANASAL DAILY PRN PRN 02/18/19 04/18/19 Allergy Relief] ranitidine HCl 300 mg PO QHS #30 cap 02/23/19 04/18/19 oxycodone 5 mg PO Q8H #5 tab 04/03/19 04/18/19 Narcan 04/18/19 ciprofloxacin HCl [Cipro] 500 mg PO BID #10 tab 04/18/19 loratadine 04/18/19 metronidazole [Flagyl] 500 mg PO TID #15 tab 04/18/19 sucralfate [Carafate] 1 gm PO QACHS #30 tab 04/18/19 tramadol 50 mg PO Q6H PRN #7 tab 04/18/19 Previous Rx's Medication Instructions Recorded Flovent HFA 110 mcg INHALATION BID #1 inhaler 12/24/17 levalbuterol tartrate [Xopenex HFA] 2 inh INHALATION Q4H PRN PRN #0 12/24/17 levothyroxine 100 mcg PO DAILY #30 tab 12/24/17 ranitidine HCl 300 mg PO QHS #30 cap 02/23/19 oxycodone 5 mg PO Q8H #5 tab 04/03/19 ciprofloxacin HCl [Cipro] 500 mg PO BID #10 tab 04/18/19 metronidazole [Flagyl] 500 mg PO TID #15 tab 04/18/19 sucralfate [Carafate] 1 gm PO QACHS #30 tab 04/18/19 tramadol 50 mg PO Q6H PRN #7 tab 04/18/19 Allergies Allergy/AdvReac Type Severity Reaction Status Date / Time prochlorperazine edisylate Allergy Severe Psychosis Verified 04/03/19 10:10 [From Compazine] prochlorperazine maleate Allergy Severe Psychosis Verified 04/03/19 10:10 [From Compazine] gluten Allergy Verified 04/03/19 10:10 combid Allergy Severe Psychosis Uncoded 04/03/19 10:10 General JOSIE: 3 Review of Systems Constitutional Reports as per HPI, Denies chills, Denies fatigue, Denies fever(s), Denies headache(s), Denies lethargy and Denies poor appetite ENT Denies headache(s) Cardiovascular Reports as per HPI, Denies chest pain, Denies palpitations, Denies dyspnea and Denies dyspnea on exertion Respiratory Reports as per HPI, Denies cough, Denies hemoptysis, Denies pain with cough, Denies dyspnea, Denies dyspnea on exertion and Reports other (patient active smoker) Gastrointestinal Reports as per HPI, Reports abdominal pain, Denies belching, Reports melena, Denies bloating, Reports change in bowel habits, Reports tenesmus, Denies coffee ground emesis, Denies cramping, Reports diarrhea, Reports loose stools, Denies nausea, Denies vomiting and Denies hematemesis Genitourinary Denies abnormal menses (patient post menopausal), Denies hematuria, Denies urinary frequency, Denies difficulty voiding, Denies flank pain, Denies vaginal discharge and Denies vaginal odor Musculoskeletal Reports as per HPI, Denies abnormal gait, Reports back pain (recent fracture), Denies muscle weakness, Denies numbness and Denies radiating pain into limb Integumentary/Breasts Reports as per HPI and Denies rash Neurologic Reports as per HPI, Denies abnormal gait, Denies headache(s) and Denies numbness Endocrine Denies fatigue and Denies palpitations [facility] Medical History Gastritis (Acute) Esophagitis determined by endoscopy (Acute) Dizziness (Acute) Tachycardia (Acute) Blood glucose elevated (Chronic) COPD (chronic obstructive pulmonary disease) (Chronic) Dysphagia (Chronic) Elevated LFTs (Chronic) Memory loss (Chronic) Peripheral neuropathy (Chronic) Reflex sympathetic dystrophy (Chronic) ANXIETY STATE NOS CELIAC DISEASE CHRONIC BOWEL DISTURBANCE/CHRONIC CONSTIPATION CHRONIC PAIN SYN COUGH Chronic pain Depression Elevated lipids FYBROMYALGIA GERD HX TOBACCO USE HYPOTHYROIDISM Hypertension IBS INSOMNIA RSD SINUSITIS URINARY INCON. Surgical History H/O esophagogastroduodenoscopy (Chronic ~02/23/19) S/P rotator cuff repair (Acute) History of esophagogastroduodenoscopy (EGD) (Chronic) Bladder Surgery Ligation of fallopian tube Rotator Cuff Repair (~2007) Social History Smoking/Tobacco Use Status: Current every day Tobacco Type: cigarettes Alcohol Intake: never Drug use: Rarely Substance use type: marijuana Details: can't afford it Do you feel safe at home: Yes Do you feel safe in your relationship?: Yes History History 4 Para 2 Hx # Term Pregnancies Multiple births Hx # Pregnancies Ectopic pregnancies AB induced Hx Number of Living Children AB spontaneous Exam Const General: cooperative, healthy appearing, comfortable, no acute distress and well developed Nutritional Appearance: well nourished and overweight Orientation: alert and awake [facility] Head: normal to inspection Mouth: mucous membranes dry (patient appears dry) Resp Effort & Inspection: normal respiratory effort, able to speak in complete sentences and no respiratory distress Auscultation: clear to auscultation bilaterally, no rales, no rhonchi and no wheezes Cardio Rate: regular rate Rhythm: regular rhythm Heart Sounds: S1 normal and S2 normal GI Inspection: no edema, distended, obesity, no visible herniation, No visible peristalsis and No caput medusae present Palpation: soft, no hepatosplenomegaly, not firm, no guarding, no hernias, tender (mild diffuse tenderness) not at McBurney's point, Dean's sign negative, obturator sign negative, psoas sign negative and with no rebound tenderness and No ascites Percussion: normal to percussion Auscultation: normal bowel sounds Rectal Exam - female: normal sphincter tone, abnormal stool Rectal exam abnormal stool - female: black stool and blood-tinged stool, No fecal impaction, No fissure, heme positive stool, hemorrhoids (do not appear to be bleeding, not thrombosed) and No tenderness Back/Spine/Pelvis Back: no CVA tenderness Skin General skin exam: no rashes or lesions noted Trauma: no lacerations or abrasions Neuro General: alert and awake Cognition: normal cognition Speech: speech normal Gait: normal gait Psych Appearance: grossly normal and well kempt Mental Status: mental status grossly normal Speech and Movement: speech and movement normal
[2019-04-18] MEDS: Normal Saline 1,000 ML 1000 ML IV ×2 (09:56→11:15)
[2019-04-18 09:59] LABS: Abs Immature Grans 0.02 k/cumm (0.0-0.09); Absolute Basophil Count 0.05 k/cumm (0.0-0.2); Absolute Lymphocyte Count 1.96 k/cumm (1.2-3.4); Absolute Monocyte Count 0.62 k/cumm (0.11-0.7); Basophils % 0.4; Eosinophils % 1.4; HCT 43.7 % (36.0-46.0); Immature Grans % 0.2; Lymphocytes % 14.8; Mean Corp. HGB Concentration 34.3 g/dL (32.0-36.0); Mean Corpuscular Hemoglobin 31.3 pg (27.0-33.0); Mean Platelet Volume 9.8 fL (8.0-11.0); Monocytes % 4.7; Neutrophils % 78.5; Platelet Count 276 x1000/uL (130-400); RBC Distribution Width 13.2 % (11.7-14.6); White Blood Cell Count 13.27 k/cumm (4.4-10.8)
[2019-04-18 10:04] LABS: Absolute Eosinophil Count 0.19 k/cumm (0.0-0.7); Absolute Neutrophil Count 10.42 k/cumm (1.2-6.7)
[2019-04-18 10:09] LABS: Lipase 159 U/L (73-393)
[2019-04-18 10:10] LABS: PTT Activated 21.7 sec (21.0-31.4); Prothrombin Time 9.9 sec (9.3-11.0)
[2019-04-18 10:16] LABS: ALT 61 U/L (12-78); AST 30 U/L (15-37); Alkaline Phosphatase 155 U/L (46-116); Anion Gap 12.8 mmol/L (3-11); BUN 25 mg/dL (7-18); Bilirubin, Total 0.4 mg/dL (0.2-1.0); CO2 26.2 mmol/L (21.0-32.0); Calcium 9.7 mg/dL (8.5-10.1); Chloride 98 mmol/L (98-107); Estimated GFR 38.62 (mL/min/1.73m2); Glucose 159 mg/dL (70-100); Magnesium 1.9 mg/dL (1.8-2.4); Potassium 3.9 mmol/L (3.5-5.1); Sodium 137 mmol/L (136-145); Total Protein 8.1 g/dL (6.4-8.2)
[2019-04-18 10:19] LABS: Troponin I < 0.02 ng/mL (0.00-0.06)
--- NOTE | 2019-04-18 10:23 | DI.CT_ITS ---
SYMPTOMS/DIAGNOSIS: DIFFUSE ABD PAIN, MELENA CT OF THE ABDOMEN AND PELVIS: Comparison is made with [id number]. Images were performed from the lung bases through the ischial tuberosities after oral and without IV contrast. The lung bases are clear. The liver shows fatty infiltration. The gallbladder, spleen, adrenals, pancreas and left kidney are unremarkable. The right kidney is again noted to be atrophic and has a lobulated appearance. There is wall thickening in the colon extending from the mid transverse through rectosigmoid consistent with colitis. The appendix appears normal. There is no evidence of abscess, free air or free fluid. There is no small bowel dilatation. The uterus, ovaries and bladder are unremarkable. There is an area of scarring in the right lower lobe. There is a compression fracture of the superior endplate of L 1 with some retropulsion of the superior endplate which is new when compared with the previous CT but does appear stable when compared with plain films dated 4May19. The aorta shows some calcification but is normal in diameter. IMPRESSION: Diffuse wall thickening from the mid transverse through rectosigmoid, consistent with colitis.
[2019-04-18] MEDS: Omnipaque 350 MG/ML 50 ML BTL PO (10:43)
[2019-04-18 11:50] LABS: Bilirubin Negative (Negative); Blood Negative (Negative); Clarity Clear; Glucose Negative (Negative); Ketones Negative (Negative); Leukocyte Esterase Negative (Negative); Nitrite Negative (Negative); Specific Gravity <= 1.005 (1.005-1.025); Urobilinogen 0.2 EU/dL (Up TO 0.2); pH 5.5 (5-8)
--- NOTE | 2019-04-18 12:10 | DI.VRAD_ITS ---
Addendum created by Joelle Craven MD on 04/18/2019 12:13:21 PM EDT THIS REPORT CONTAINS FINDINGS THAT MAY BE CRITICAL TO PATIENT CARE. The findings were verbally communicated via telephone conference with JEWEL CLOUD at 12:13 PM EDT on 04/18/2019. The findings were acknowledged and understood. Initial report created on 04/18/2019 12:09:47 PM EDT EXAM: CT Abdomen and Pelvis Without Contrast EXAM DATE/TIME: 04/18/2019 10:27 AM CLINICAL HISTORY: 58 years old, female; Abdominal pain TECHNIQUE: Imaging protocol: Axial computed tomography images of the abdomen and pelvis without contrast. Coronal and sagittal reformatted images were created and reviewed. COMPARISON: CT ABD/PELVIS WO W CONTRAST 05/18/2018 12:35 PM FINDINGS: Lungs: 16mm focal opacity in the right lower lobe may represent pneumonia versus neoplasm. ABDOMEN: Liver: Hepatic steatosis. Hepatomegaly 18 cm Gallbladder and bile ducts: Normal. No calcified stones. No ductal dilation. Pancreas: Normal. No ductal dilation. Spleen: Normal. No splenomegaly. Adrenals: Normal. No mass. Kidneys and ureters: Right renal atrophy. Stomach and bowel: Low-attenuation bowel wall thickening in the distal half of the transverse colon and descending colon and rectosigmoid consistent with colitis. Differential diagnosis includes infectious and inflammatory etiologies.. Appendix: Normal appendix PELVIS: Bladder: Unremarkable as visualized. Reproductive: Unremarkable as visualized. ABDOMEN and PELVIS: Intraperitoneal space: Normal. No free air. No significant fluid collection. Bones/joints: Acute burst fracture of L1. Fracture fragments are displaced into the canal 6 mm. Soft tissues: Unremarkable. Vasculature: Normal. No abdominal aortic aneurysm. Lymph nodes: Normal. No enlarged lymph nodes. IMPRESSION: 1. Low-attenuation bowel wall thickening in the distal half of the transverse colon and descending colon and rectosigmoid consistent with colitis. Differential diagnosis includes infectious and inflammatory etiologies.. 2. Acute burst fracture of L1. Fracture fragments are displaced into the canal 6 mm. 3. 16mm focal opacity in the right lower lobe may represent pneumonia versus neoplasm. Dictated and Authenticated by: Joelle Craven MD. Ordering:MISBAH Hassan MD
[2019-04-18] MEDS: Ciprofloxacin 500 MG TAB PO (13:46)
[2019-04-18] MEDS: metroNIDAZOLE 500 MG TAB PO (13:47)
== END 2019-04-18 15:15 | disposition home or self-care (01) ==
PROVIDERS: Emergency Provider Physician Assistant; PCP Nurse Practitioner Family
DX: A09 Infectious gastroenteritis and colitis, unspecified; K29.01 Acute gastritis with bleeding; R91.1 Solitary pulmonary nodule; M54.9 Dorsalgia, unspecified; F17.210 Nicotine dependence, cigarettes, uncomplicated; I10 Essential (primary) hypertension; Z98.890 Other specified postprocedural states
CPT/HCPCS: 36415; 80053; 83690; 87329; 96360; 96361; 99285; 74176; 81003; 83630; 83735; 84484; 85025; 85610; 85730; 87324; 99284; Q9967

== ENCOUNTER 2019-04-19 12:43 | Outpatient (REF) | payer MEDICAID, SELFPAY ==
[2019-04-23 09:20] LABS: Amphetamine Negative ng/mL (Cutoff: 25); Amphetamines Interpretation Negative.; MDA (Ecstasy Metabolite) Negative ng/mL (Cutoff: 25); MDMA (Ecstasy) Negative ng/mL (Cutoff: 25); Methamphetamine Negative ng/mL (Cutoff: 25); Phentermine Negative ng/mL (Cutoff: 25); Pseudoephedrine/Ephedrine Negative ng/mL (Cutoff: 25)
== END 2019-04-19 13:03 ==
LOC: NCHCN 12:43
PROVIDERS: PCP Nurse Practitioner Family; Visit Provider Nurse Practitioner Family
DX: M54.5 Low back pain (principal); R50.9 Fever, unspecified; F15.20 Other stimulant dependence, uncomplicated
CPT/HCPCS: 80324; 87086

== ENCOUNTER 2019-04-28 13:14 | Emergency (ER) | payer MEDICAID, SELFPAY ==
[2019-04-28 13:23] VITALS: BP 111/65; PULSE 92; RESP 18; TEMP 36.4; O2SAT 95
--- NOTE | 2019-04-28 13:43 | W.ED.GENAD ---
Discharge Plan Disposition Patient Disposition: HOME Condition: Improving Discharge Details Chief Complaint: Nk/Back Pain Clinical Impression: Closed L1 vertebral fracture Primary Care Provider: Kathy Wright ED Provider: Timo Vences Home Meds and New Rx's Prescriptions: Continued clonazepam [Klonopin] 0.5 mg tablet 0.5 mg PO BID PRNRF: 0 enalapril-hydrochlorothiazide 10-25 mg tablet 1 tab PO DAILY RF: 0 omeprazole [Prilosec] 20 MG capsule,delayed release(DR/EC) 40 mg PO DAILY RF: 0 albuterol sulfate [ProAir HFA] 8.5 GM HFA aerosol inhaler 2 puff Inhalation Q4H PRN RF: 0 clonidine HCl 0.1 MG tablet 0.1 mg PO HS RF: 0 metoprolol tartrate 50 MG tablet 50 mg PO BID RF: 0 Bupropion HCl 100 MG tablet 100 mg PO HS RF: 0 cyanocobalamin (vitamin B-12) 2,500 MCG tablet 2,000 mcg PO DAILY RF: 0 levothyroxine 100 MCG tablet 100 mcg PO DAILY Qty: 30 RF: 3 Flovent HFA 12 GM HFA aerosol inhaler 110 mcg Inhalation BID Qty: 1 RF: 0 levalbuterol tartrate [Xopenex HFA] 15 GM HFA aerosol inhaler 2 inh Inhalation Q4H PRN PRNQty: 0 RF: 0 fluticasone propionate [Flonase Allergy Relief] 50 mcg/actuation [place],Suspension 2 spray INTRANASAL DAILY PRN PRNRF: 0 ranitidine HCl 300 mg capsule 300 mg PO QHS Qty: 30 RF: 5 oxycodone 5 mg tablet 5 mg PO Q8H Qty: 5 RF: 0 loratadine 10 mg Capsule RF: 0 Narcan 4 mg/actuation [place],Non-Aerosol RF: 0 ciprofloxacin HCl [Cipro] 500 mg tablet 500 mg PO BID Qty: 10 RF: 0 metronidazole [Flagyl] 500 mg tablet 500 mg PO TID Qty: 15 RF: 0 sucralfate [Carafate] 1 gram tablet 1 gm PO QACHS Qty: 30 RF: 0 tramadol 50 mg tablet 50 mg PO Q6H PRN (Reason: pain) Qty: 7 RF: 0 Discharge Instructions Additional Instructions: May add Metamucil once daily to help bulk up your stool. Return if you develop a fever, abdominal pain, further change to stool pattern, or any other acute concerns. Return if you have motor weakness of the lower extremity, develop numbness or tingling, or change to bladder habits. Follow-up with Christina in clinic next week for recheck as planned Medical Decision Making 58-year-old female who has had back pain since suffering an L1 fracture 1 month ago. She has had outpatient physical therapy, been prescribed a TLSO brace, and has follow-up with [facility] [place] [facility] week for recheck. She was recently prescribed an increase in oxycodone which is helped to minimize her pain. She noted to her primary care on her visit today that she had some loose stool in her underpants. There was a concern for incontinence and the patient was referred to the ED. She has normal motor and sensory function of the lower extremity as well as of the rectum and anal sphincter. She is not systemically ill and denies any other complaints. I feel that she does not require further work-up at this time. Discussed with her return precautions. She will try to bulk up the stool. She will return if she has uncontrollable bowel movements, develops a fever or abdominal pain, or any other acute concern HPI General Mode of arrival: ambulatory. Date/Time Provider Initiated Documentation: 04/28/19 13:16. Limitations to Documentation: no limitations. Information obtained by: patient. History of Present Illness 58 year old F presents to the emergency department with the chief complaint of Persistent back pain and overflow stool, described as moderate, Quality is described as dull and constant, and is localized to the back. Patient reports no radiation. Patient started experiencing this day(s) and it has been constant. Rest improves symptom(s), Movement worsens symptoms . Patient notes no other symptoms. and other (No numbness or tingling. No weakness of the lower extremity. States that she has otherwise recently been well.). Patient did receive the following treatments prior to arrival, none Related Data Home Medications Medication Instructions Recorded Confirmed omeprazole [Prilosec] 40 mg PO DAILY 02/10/13 04/18/19 albuterol sulfate [ProAir HFA] 2 puff INHALATION Q4H PRN inhaler 07/25/15 04/18/19 clonidine HCl 0.1 mg PO HS 06/19/16 04/18/19 Bupropion HCl 100 mg PO HS tab-cap 12/18/17 04/03/19 metoprolol tartrate 50 mg PO BID tab-cap 12/18/17 04/18/19 Flovent HFA 110 mcg INHALATION BID #1 inhaler 12/24/17 04/18/19 levalbuterol tartrate [Xopenex HFA] 2 inh INHALATION Q4H PRN PRN #0 12/24/17 04/18/19 levothyroxine 100 mcg PO DAILY #30 tab 12/24/17 04/18/19 cyanocobalamin (vitamin B-12) 2,000 mcg PO DAILY 04/02/18 04/18/19 enalapril 10 1 tab PO DAILY 11/09/18 04/18/19 mg-hydrochlorothiazide 25 mg tablet clonazepam 0.5 mg tablet 0.5 mg PO BID PRN 02/01/19 04/18/19 fluticasone propionate [Flonase 2 spray INTRANASAL DAILY PRN PRN 02/18/19 04/18/19 Allergy Relief] ranitidine HCl 300 mg PO QHS #30 cap 02/23/19 04/18/19 oxycodone 5 mg PO Q8H #5 tab 04/03/19 04/18/19 Narcan 04/18/19 ciprofloxacin HCl [Cipro] 500 mg PO BID #10 tab 04/18/19 loratadine 04/18/19 metronidazole [Flagyl] 500 mg PO TID #15 tab 04/18/19 sucralfate [Carafate] 1 gm PO QACHS #30 tab 04/18/19 tramadol 50 mg PO Q6H PRN #7 tab 04/18/19 Previous Rx's Medication Instructions Recorded Flovent HFA 110 mcg INHALATION BID #1 inhaler 12/24/17 levalbuterol tartrate [Xopenex HFA] 2 inh INHALATION Q4H PRN PRN #0 12/24/17 levothyroxine 100 mcg PO DAILY #30 tab 12/24/17 ranitidine HCl 300 mg PO QHS #30 cap 02/23/19 oxycodone 5 mg PO Q8H #5 tab 04/03/19 ciprofloxacin HCl [Cipro] 500 mg PO BID #10 tab 04/18/19 metronidazole [Flagyl] 500 mg PO TID #15 tab 04/18/19 sucralfate [Carafate] 1 gm PO QACHS #30 tab 04/18/19 tramadol 50 mg PO Q6H PRN #7 tab 04/18/19 Allergies Allergy/AdvReac Type Severity Reaction Status Date / Time prochlorperazine edisylate Allergy Severe Psychosis Verified 04/28/19 13:28 [From Compazine] prochlorperazine maleate Allergy Severe Psychosis Verified 04/28/19 13:28 [From Compazine] gluten Allergy Verified 04/28/19 13:28 combid Allergy Severe Psychosis Uncoded 04/28/19 13:28 General Stated Complaint: Nk/Back Pain JOSIE: 3 Review of Systems Review of Systems No fever. No abdominal pain. Denies lower extremity anesthesia. She has otherwise been well. 8 systems reviewed and otherwise - [facility] Medical History Gastritis (Acute) Esophagitis determined by endoscopy (Acute) Dizziness (Acute) Tachycardia (Acute) Blood glucose elevated (Chronic) COPD (chronic obstructive pulmonary disease) (Chronic) Dysphagia (Chronic) Elevated LFTs (Chronic) Memory loss (Chronic) Peripheral neuropathy (Chronic) Reflex sympathetic dystrophy (Chronic) ANXIETY STATE NOS CELIAC DISEASE CHRONIC BOWEL DISTURBANCE/CHRONIC CONSTIPATION CHRONIC PAIN SYN COUGH Chronic pain Depression Elevated lipids FYBROMYALGIA GERD HX TOBACCO USE HYPOTHYROIDISM Hypertension IBS INSOMNIA RSD SINUSITIS URINARY INCON. Surgical History H/O esophagogastroduodenoscopy (Chronic ~02/23/19) S/P rotator cuff repair (Acute) History of esophagogastroduodenoscopy (EGD) (Chronic) Bladder Surgery Ligation of fallopian tube Rotator Cuff Repair (~2007) Family History Mother Pneumonia Father Mesothelioma Grandmother Breast cancer Social History Smoking/Tobacco Use Status: Current every day Tobacco Type: cigarettes Alcohol Intake: never Drug use: Rarely Substance use type: marijuana Details: can't afford it Do you feel safe at home: Yes Do you feel safe in your relationship?: Yes History History 4 Para 2 Hx # Term Pregnancies Multiple births Hx # Pregnancies Ectopic pregnancies AB induced Hx Number of Living Children AB spontaneous Exam Narrative Exam Narrative: GEN: awake, alert, oriented 3. Pleasant, well groomed, interactive. HEAD: Normocephalic, atraumatic ENT: Mucous membranes moist, oropharynx unremarkable, External ear exam unremarkable EYES: PERRL, EOMI NECK: Full ROM, no LAMBERTO, no menigismus CHEST/RESP: Nontender, clear to auscultation bilateral, no wheeze/rhonchi/rales CARDIOVASCULAR: RRR, no murmur, rub leisa. 2+ Rad pulse bilateral ABDOMEN: Soft, nontender, no mass. +Bowel sounds Rectal: Normal tone and sensation of the saddle distribution and perineum. Back: Diffuse lumbar tenderness without step-off or deformity. EXT: Full ROM, no edema, no rash. Motor rated 5 out of 5. Reflexes intact at the patella bilaterally. Sensation intact throughout including saddle distribution. Gait narrow based with good heel strike Neuro: Grossly normal neurologic exam, conversant, interactive. Psych: Speech fluent, thoughts congruent, affect normal Course Vital Signs Temperature 36.4 C L 04/28/19 13:23 Pulse 92 H 04/28/19 13:23 Respiratory Rate 18 04/28/19 13:23 Blood Pressure 111/65 04/28/19 13:23 Pulse Oximetry 95 04/28/19 13:23 Temperature 36.4 C L 04/28/19 13:23 Temperature Source Temporal Artery Scan 04/28/19 13:23 Pulse 92 H 04/28/19 13:23 Respiratory Rate 18 04/28/19 13:23 Respiratory Effort Non-Labored 04/28/19 13:27 Blood Pressure 111/65 04/28/19 13:23 Blood Pressure Position Sitting 04/28/19 13:23 Pulse Oximetry 95 04/28/19 13:23 Oxygen Delivery Method Room Air 04/28/19 13:23 Oxygen Flow Rate 0 04/28/19 13:23 Pain Level 9 04/28/19 13:23
--- NOTE | 2019-04-28 13:47 | ED.GENADUL_ITS ---
Discharge Plan Disposition Patient Disposition: HOME Condition: Improving Discharge Details Chief Complaint: Nk/Back Pain Clinical Impression: Closed L1 vertebral fracture Primary Care Provider: Kathy Wright ED Provider: Timo Vences Home Meds and New Rx's Prescriptions: Continued clonazepam [Klonopin] 0.5 mg tablet 0.5 mg PO BID PRNRF: 0 enalapril-hydrochlorothiazide 10-25 mg tablet 1 tab PO DAILY RF: 0 omeprazole [Prilosec] 20 MG capsule,delayed release(DR/EC) 40 mg PO DAILY RF: 0 albuterol sulfate [ProAir HFA] 8.5 GM HFA aerosol inhaler 2 puff Inhalation Q4H PRN RF: 0 clonidine HCl 0.1 MG tablet 0.1 mg PO HS RF: 0 metoprolol tartrate 50 MG tablet 50 mg PO BID RF: 0 Bupropion HCl 100 MG tablet 100 mg PO HS RF: 0 cyanocobalamin (vitamin B-12) 2,500 MCG tablet 2,000 mcg PO DAILY RF: 0 levothyroxine 100 MCG tablet 100 mcg PO DAILY Qty: 30 RF: 3 Flovent HFA 12 GM HFA aerosol inhaler 110 mcg Inhalation BID Qty: 1 RF: 0 levalbuterol tartrate [Xopenex HFA] 15 GM HFA aerosol inhaler 2 inh Inhalation Q4H PRN PRNQty: 0 RF: 0 fluticasone propionate [Flonase Allergy Relief] 50 mcg/actuation [place],Suspension 2 spray INTRANASAL DAILY PRN PRNRF: 0 ranitidine HCl 300 mg capsule 300 mg PO QHS Qty: 30 RF: 5 oxycodone 5 mg tablet 5 mg PO Q8H Qty: 5 RF: 0 loratadine 10 mg Capsule RF: 0 Narcan 4 mg/actuation [place],Non-Aerosol RF: 0 ciprofloxacin HCl [Cipro] 500 mg tablet 500 mg PO BID Qty: 10 RF: 0 metronidazole [Flagyl] 500 mg tablet 500 mg PO TID Qty: 15 RF: 0 sucralfate [Carafate] 1 gram tablet 1 gm PO QACHS Qty: 30 RF: 0 tramadol 50 mg tablet 50 mg PO Q6H PRN (Reason: pain) Qty: 7 RF: 0 Discharge Instructions Additional Instructions: May add Metamucil once daily to help bulk up your stool. Return if you develop a fever, abdominal pain, further change to stool pattern, or any other acute concerns. Return if you have motor weakness of the lower extremity, develop numbness or tingling, or change to bladder habits. Follow-up with Christina in clinic next week for recheck as planned Medical Decision Making 58-year-old female who has had back pain since suffering an L1 fracture 1 month ago. She has had outpatient physical therapy, been prescribed a TLSO brace, and has follow-up with [facility] week for recheck. She was recently prescribed an increase in oxycodone which is helped to minimize her pain. She noted to her primary care on her visit today that she had some loose stool in her underpants. There was a concern for incontinence and the patient was referred to the ED. She has normal motor and sensory function of the lower extremity as well as of the rectum and anal sphincter. She is not systemically ill and denies any other complaints. I feel that she does not require further work-up at this time. Discussed with her return precautions. She will try to bulk up the stool. She will return if she has uncontrollable bowel movements, develops a fever or abdominal pain, or any other acute concern HPI General Mode of arrival: ambulatory . Date/Time Provider Initiated Documentation: 04/28/19 13:16 . Limitations to Documentation: no limitations . Information obtained by: patient . History of Present Illness 58 year old F presents to the emergency department with the chief complaint of Persistent back pain and overflow stool, described as moderate, Quality is described as dull and constant, and is localized to the back. Patient reports no radiation. Patient started experiencing this day(s) and it has been constant. Rest improves symptom(s), Movement worsens symptoms . Patient notes no other symptoms. and other (No numbness or tingling. No weakness of the lower extremity. States that she has otherwise recently been well.). Patient did receive the following treatments prior to arrival, none Related Data Home Medications Medication Instructions Recorded Confirmed omeprazole [Prilosec] 40 mg PO DAILY 02/10/13 04/18/19 albuterol sulfate [ProAir HFA] 2 puff INHALATION Q4H PRN inhaler 07/25/15 04/18/19 clonidine HCl 0.1 mg PO HS 06/19/16 04/18/19 Bupropion HCl 100 mg PO HS tab-cap 12/18/17 04/03/19 metoprolol tartrate 50 mg PO BID tab-cap 12/18/17 04/18/19 Flovent HFA 110 mcg INHALATION BID #1 inhaler 12/24/17 04/18/19 levalbuterol tartrate [Xopenex HFA] 2 inh INHALATION Q4H PRN PRN #0 12/24/17 04/18/19 levothyroxine 100 mcg PO DAILY #30 tab 12/24/17 04/18/19 cyanocobalamin (vitamin B-12) 2,000 mcg PO DAILY 04/02/18 04/18/19 enalapril 10 1 tab PO DAILY 11/09/18 04/18/19 mg-hydrochlorothiazide 25 mg tablet clonazepam 0.5 mg tablet 0.5 mg PO BID PRN 02/01/19 04/18/19 fluticasone propionate [Flonase 2 spray INTRANASAL DAILY PRN PRN 02/18/19 04/18/19 Allergy Relief] ranitidine HCl 300 mg PO QHS #30 cap 02/23/19 04/18/19 oxycodone 5 mg PO Q8H #5 tab 04/03/19 04/18/19 Narcan 04/18/19 ciprofloxacin HCl [Cipro] 500 mg PO BID #10 tab 04/18/19 loratadine 04/18/19 metronidazole [Flagyl] 500 mg PO TID #15 tab 04/18/19 sucralfate [Carafate] 1 gm PO QACHS #30 tab 04/18/19 tramadol 50 mg PO Q6H PRN #7 tab 04/18/19 Previous Rx's Medication Instructions Recorded Flovent HFA 110 mcg INHALATION BID #1 inhaler 12/24/17 levalbuterol tartrate [Xopenex HFA] 2 inh INHALATION Q4H PRN PRN #0 12/24/17 levothyroxine 100 mcg PO DAILY #30 tab 12/24/17 ranitidine HCl 300 mg PO QHS #30 cap 02/23/19 oxycodone 5 mg PO Q8H #5 tab 04/03/19 ciprofloxacin HCl [Cipro] 500 mg PO BID #10 tab 04/18/19 metronidazole [Flagyl] 500 mg PO TID #15 tab 04/18/19 sucralfate [Carafate] 1 gm PO QACHS #30 tab 04/18/19 tramadol 50 mg PO Q6H PRN #7 tab 04/18/19 Allergies Allergy/AdvReac Type Severity Reaction Status Date / Time prochlorperazine edisylate Allergy Severe Psychosis Verified 04/28/19 13:28 [From Compazine] prochlorperazine maleate Allergy Severe Psychosis Verified 04/28/19 13:28 [From Compazine] gluten Allergy Verified 04/28/19 13:28 combid Allergy Severe Psychosis Uncoded 04/28/19 13:28 General Stated Complaint: Nk/Back Pain JOSIE: 3 Review of Systems Review of Systems No fever. No abdominal pain. Denies lower extremity anesthesia. She has otherwise been well. 8 systems reviewed and otherwise - [facility] Medical History Gastritis (Acute) Esophagitis determined by endoscopy (Acute) Dizziness (Acute) Tachycardia (Acute) Blood glucose elevated (Chronic) COPD (chronic obstructive pulmonary disease) (Chronic) Dysphagia (Chronic) Elevated LFTs (Chronic) Memory loss (Chronic) Peripheral neuropathy (Chronic) Reflex sympathetic dystrophy (Chronic) ANXIETY STATE NOS CELIAC DISEASE CHRONIC BOWEL DISTURBANCE/CHRONIC CONSTIPATION CHRONIC PAIN SYN COUGH Chronic pain Depression Elevated lipids FYBROMYALGIA GERD HX TOBACCO USE HYPOTHYROIDISM Hypertension IBS INSOMNIA RSD SINUSITIS URINARY INCON. Surgical History H/O esophagogastroduodenoscopy (Chronic ~02/23/19) S/P rotator cuff repair (Acute) History of esophagogastroduodenoscopy (EGD) (Chronic) Bladder Surgery Ligation of fallopian tube Rotator Cuff Repair (~2007) Family History Mother Pneumonia Father Mesothelioma Grandmother Breast cancer Social History Smoking/Tobacco Use Status: Current every day Tobacco Type: cigarettes Alcohol Intake: never Drug use: Rarely Substance use type: marijuana Details: can't afford it Do you feel safe at home: Yes Do you feel safe in your relationship?: Yes History History 4 Para 2 Hx # Term Pregnancies Multiple births Hx # Pregnancies Ectopic pregnancies AB induced Hx Number of Living Children AB spontaneous Exam Narrative Exam Narrative: GEN: awake, alert, oriented 3. Pleasant, well groomed, interactive. HEAD: Normocephalic, atraumatic ENT: Mucous membranes moist, oropharynx unremarkable, External ear exam unremarkable EYES: PERRL, EOMI NECK: Full ROM, no LAMBERTO, no menigismus CHEST/RESP: Nontender, clear to auscultation bilateral, no wheeze/rhonchi/rales CARDIOVASCULAR: RRR, no murmur, rub leisa. 2+ Rad pulse bilateral ABDOMEN: Soft, nontender, no mass. +Bowel sounds Rectal: Normal tone and sensation of the saddle distribution and perineum. Back: Diffuse lumbar tenderness without step-off or deformity. EXT: Full ROM, no edema, no rash. Motor rated 5 out of 5. Reflexes intact at the patella bilaterally. Sensation intact throughout including saddle distribution. Gait narrow based with good heel strike Neuro: Grossly normal neurologic exam, conversant, interactive. Psych: Speech fluent, thoughts congruent, affect normal Course Vital Signs Temperature 36.4 C L 04/28/19 13:23 Pulse 92 H 04/28/19 13:23 Respiratory Rate 18 04/28/19 13:23 Blood Pressure 111/65 04/28/19 13:23 Pulse Oximetry 95 04/28/19 13:23 Temperature 36.4 C L 04/28/19 13:23 Temperature Source Temporal Artery Scan 04/28/19 13:23 Pulse 92 H 04/28/19 13:23 Respiratory Rate 18 04/28/19 13:23 Respiratory Effort Non-Labored 04/28/19 13:27 Blood Pressure 111/65 04/28/19 13:23 Blood Pressure Position Sitting 04/28/19 13:23 Pulse Oximetry 95 04/28/19 13:23 Oxygen Delivery Method Room Air 04/28/19 13:23 Oxygen Flow Rate 0 04/28/19 13:23 Pain Level 9 04/28/19 13:23
== END 2019-04-28 14:06 | disposition home or self-care (01) ==
PROVIDERS: Emergency Provider Emergency Medicine; PCP Nurse Practitioner Family
DX: R15.1 Fecal smearing (principal); S32.019D Unspecified fracture of first lumbar vertebra, subsequent encounter for fracture with routine healing; X58.XXXD Exposure to other specified factors, subsequent encounter
CPT/HCPCS: 99281

== ENCOUNTER 2019-07-12 13:24 | Outpatient (REF) | payer MEDICAID, SELFPAY ==
[2019-07-12 22:13] LABS: Iron 123 ug/dL (50-175); Total Iron Binding Capacity 310 ug/dL (250-450); Transferrin Sat 40 % (15-50)
[2019-07-12 22:27] LABS: Alkaline Phosphatase 103 U/L (46-116); Anion Gap 13.2 mmol/L (3-11); BUN 10 mg/dL (7-18); CO2 23.8 mmol/L (21.0-32.0); CREATININE 0.98 mg/dL (0.55-1.02); Calcium 9.7 mg/dL (8.5-10.1); Chloride 104 mmol/L (98-107); Estimated GFR 58.29 (mL/min/1.73m2); Ferritin 83 ng/mL (8-388); GGT 77 U/L (5-55); Glucose 118 mg/dL (70-100); Sodium 141 mmol/L (136-145)
[2019-07-14 10:20] LABS: Hepatitis C Ab w Rflx HCV PCR Negative (NEGAT)
[2019-07-14 10:26] LABS: Transferrin 229 mg/dL (201-352)
[2019-07-14 11:12] LABS: Hep A Total Ab w Rflx IgM Negative (NEGAT)
[2019-07-14 11:19] LABS: HBs Antibody, Quant 159.7 mIU/mL; Hepatitis B Surface Ab Positive; Hepatitis B Surface Ag Negative (NEGAT)
== END 2019-07-12 13:44 ==
LOC: NCHCN 13:24
PROVIDERS: PCP Nurse Practitioner Family; Visit Provider Nurse Practitioner Family
DX: K76.0 Fatty (change of) liver, not elsewhere classified (principal)
CPT/HCPCS: 80048; 86706; 86709; 86803; 87340; 82728; 82977; 83540; 83550; 84075; 84466

== ENCOUNTER 2019-11-16 02:59 | Outpatient (CLI) | payer MEDICAID, SELFPAY ==
[2019-11-16 08:20] LABS: Abs Immature Grans 0.01 k/cumm (0.0-0.09); Absolute Basophil Count 0.06 k/cumm (0.0-0.2); Absolute Eosinophil Count 0.36 k/cumm (0.0-0.7); Absolute Monocyte Count 0.56 k/cumm (0.11-0.7); Absolute Neutrophil Count 3.38 k/cumm (1.2-6.7); Basophils % 0.9; Eosinophils % 5.2; HCT 37.4 % (36.0-46.0); HGB 12.5 g/dL (12.0-15.5); Immature Grans % 0.1; Lymphocytes % 36.4; Mean Corp. HGB Concentration 33.4 g/dL (32.0-36.0); Mean Corpuscular Hemoglobin 30.3 pg (27.0-33.0); Mean Corpuscular Volume 90.8 fL (80-95); Mean Platelet Volume 9.2 fL (8.0-11.0); Monocytes % 8.2; Neutrophils % 49.2; Platelet Count 303 x1000/uL (130-400); RBC 4.12 m/cumm (4.00-5.20); RBC Distribution Width 13.5 % (11.7-14.6); White Blood Cell Count 6.87 k/cumm (4.4-10.8)
[2019-11-16 08:33] LABS: ALT 41 U/L (14-59); AST 23 U/L (15-37); Albumin 3.5 g/dL (3.4-5.0); Alkaline Phosphatase 109 U/L (46-116); Anion Gap 9.8 mmol/L (3-11); BUN 13 mg/dL (7-18); Bilirubin, Total 0.2 mg/dL (0.2-1.0); CO2 26.2 mmol/L (21.0-32.0); CREATININE 1.03 mg/dL (0.55-1.02); Calcium 9.1 mg/dL (8.5-10.1); Chloride 103 mmol/L (98-107); Estimated GFR 54.85 (mL/min/1.73m2); Glucose 129 mg/dL (74-106); LDH 361 U/L (81-234); Magnesium 1.7 mg/dL (1.8-2.4); Potassium 3.6 mmol/L (3.5-5.1); Sodium 139 mmol/L (136-145); Total Protein 7.3 g/dL (6.4-8.2)
== END 2019-11-16 03:19 ==
PROVIDERS: PCP Nurse Practitioner Family; Visit Provider Nurse Practitioner Adult Health
DX: C34.91 Malignant neoplasm of unspecified part of right bronchus or lung (principal)
CPT/HCPCS: 36415; 80053; 83615; 83735; 85025

== ENCOUNTER 2019-11-23 01:23 | Outpatient (CLI) | payer MEDICAID, SELFPAY ==
--- NOTE | 2019-11-23 14:41 | DI.MRI_ITS ---
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 CONTRAST MATERIAL: IV Contrast: 14 ML of Dotarem contrast administered. COMPARISON: MRI - BRAIN WO CONTRAST from 01/13/2018 FINDINGS: VENTRICLES AND EXTRA AXIAL SPACES: Normal in size and morphology for the patient's age. HEMORRHAGE: None. CEREBRAL PARENCHYMA: No focus of restricted diffusion to suggest acute infarct. No space-occupying le moreno identified. MIDLINE SHIFT: None. BRAINSTEM/CEREBELLUM: Unremarkable. CALVARIUM: Unremarkable. ENHANCEMENT: No suspicious enhancement identified. VISUALIZED PARANASAL SINUSES/MASTOIDS: Clear. OTHER FINDINGS: Partially empty sella. [id number]: Unremarkable flow void. IMPRESSION: No acute abnormality. No evidence of intracranial metastatic disease.
[2019-11-23] MEDS: Gadoterate meglumine 20 ML VIAL 14 ML IVP (15:34)
== END 2019-11-23 01:43 ==
PROVIDERS: PCP Nurse Practitioner Family; Visit Provider Internal Medicine Hematology & Oncology
DX: C34.31 Malignant neoplasm of lower lobe, right bronchus or lung (principal); Z12.89 Encounter for screening for malignant neoplasm of other sites
CPT/HCPCS: 36415; 70553; 80053; 83615; 83735; 85025

== ENCOUNTER 2019-11-23 15:27 | Outpatient (CLI) | payer MEDICAID, SELFPAY ==
[2019-11-23 15:59] LABS: Absolute Basophil Count 0.02 k/cumm (0.0-0.2); Absolute Eosinophil Count 0.08 k/cumm (0.0-0.7); Absolute Lymphocyte Count 1.69 k/cumm (1.2-3.4); Absolute Monocyte Count 0.11 k/cumm (0.11-0.7); Absolute Neutrophil Count 1.77 k/cumm (1.2-6.7); Basophils % 0.5; Eosinophils % 2.2; HCT 36.1 % (36.0-46.0); HGB 12.2 g/dL (12.0-15.5); Mean Corp. HGB Concentration 33.8 g/dL (32.0-36.0); Mean Corpuscular Hemoglobin 30.1 pg (27.0-33.0); Mean Corpuscular Volume 89.1 fL (80-95); Mean Platelet Volume 9.1 fL (8.0-11.0); Neutrophils % 48.3; Platelet Count 227 x1000/uL (130-400); RBC 4.05 m/cumm (4.00-5.20); RBC Distribution Width 12.8 % (11.7-14.6); White Blood Cell Count 3.67 k/cumm (4.4-10.8)
[2019-11-23 17:30] LABS: ALT 59 U/L (14-59); AST 24 U/L (15-37); Albumin 3.7 g/dL (3.4-5.0); Alkaline Phosphatase 123 U/L (46-116); Anion Gap 8.9 mmol/L (3-11); BUN 14 mg/dL (7-18); Bilirubin, Total 0.2 mg/dL (0.2-1.0); CO2 31.1 mmol/L (21.0-32.0); CREATININE 1.27 mg/dL (0.55-1.02); Calcium 8.8 mg/dL (8.5-10.1); Chloride 101 mmol/L (98-107); Estimated GFR 43.07 (mL/min/1.73m2); Glucose 129 mg/dL (74-106); LDH 227 U/L (81-234); Magnesium 1.3 mg/dL (1.8-2.4); Potassium 3.5 mmol/L (3.5-5.1); Sodium 141 mmol/L (136-145); Total Protein 7.3 g/dL (6.4-8.2)
== END 2019-11-23 15:47 ==
PROVIDERS: PCP Nurse Practitioner Family; Visit Provider Nurse Practitioner Adult Health
DX: C34.91 Malignant neoplasm of unspecified part of right bronchus or lung (principal)
CPT/HCPCS: 36415; 80053; 83615; 83735; 85025

== ENCOUNTER 2019-12-07 09:38 | Outpatient (REF) | payer MEDICAID, SELFPAY ==
[2019-12-07 09:54] LABS: Absolute Basophil Count 0.04 k/cumm (0.0-0.2); Absolute Eosinophil Count 0.06 k/cumm (0.0-0.7); Absolute Lymphocyte Count 2.59 k/cumm (1.2-3.4); Absolute Monocyte Count 0.77 k/cumm (0.11-0.7); Absolute Neutrophil Count 3.31 k/cumm (1.2-6.7); Basophils % 0.6; Eosinophils % 0.9; HCT 36.7 % (36.0-46.0); HGB 12.5 g/dL (12.0-15.5); Immature Grans % 1.5 %; Lymphocytes % 37.7; Mean Corp. HGB Concentration 34.1 g/dL (32.0-36.0); Mean Corpuscular Hemoglobin 30.9 pg (27.0-33.0); Mean Corpuscular Volume 90.6 fL (80-95); Mean Platelet Volume 8.9 fL (8.0-11.0); Monocytes % 11.2; Neutrophils % 48.1; RBC 4.05 m/cumm (4.00-5.20); RBC Distribution Width 14.1 % (11.7-14.6); White Blood Cell Count 6.87 k/cumm (4.4-10.8)
[2019-12-07 10:26] LABS: Diff Comment PLT Morph Reviewed; Platelet Count 482 x1000/uL (130-400)
[2019-12-07 10:27] LABS: Polychromasia Present
[2019-12-07 11:02] LABS: ALT 37 U/L (14-59); AST 20 U/L (15-37); Albumin 3.4 g/dL (3.4-5.0); Alkaline Phosphatase 115 U/L (46-116); Anion Gap 11.2 mmol/L (3-11); BUN 11 mg/dL (7-18); Bilirubin, Total 0.2 mg/dL (0.2-1.0); CO2 25.8 mmol/L (21.0-32.0); Calcium 8.6 mg/dL (8.5-10.1); Chloride 103 mmol/L (98-107); Estimated GFR 41.92 (mL/min/1.73m2); Glucose 163 mg/dL (74-106); LDH 237 U/L (81-234); Magnesium 1.4 mg/dL (1.8-2.4); Potassium 3.1 mmol/L (3.5-5.1); Sodium 140 mmol/L (136-145); Total Protein 7.1 g/dL (6.4-8.2)
== END 2019-12-07 09:58 ==
LOC: LBN 09:38
PROVIDERS: PCP Nurse Practitioner Family; Visit Provider Nurse Practitioner Adult Health
DX: C34.31 Malignant neoplasm of lower lobe, right bronchus or lung (principal)
CPT/HCPCS: 80053; 83615; 83735; 85025

== ENCOUNTER 2019-12-20 14:27 | Outpatient (REF) | payer MEDICAID, SELFPAY ==
[2019-12-20 21:53] LABS: Anion Gap 10.8 mmol/L (3-11); BUN 23 mg/dL (7-18); CO2 25.2 mmol/L (21.0-32.0); CREATININE 1.79 mg/dL (0.55-1.02); Calcium 9.3 mg/dL (8.5-10.1); Chloride 103 mmol/L (98-107); Estimated GFR 28.98 (mL/min/1.73m2); Glucose 131 mg/dL (74-106); Potassium 4.8 mmol/L (3.5-5.1); Sodium 139 mmol/L (136-145)
== END 2019-12-20 14:47 ==
LOC: NCHCN 14:27
PROVIDERS: PCP Nurse Practitioner Family; Visit Provider Nurse Practitioner Family
DX: R06.02 Shortness of breath (principal); N18.3 Chronic kidney disease, stage 3 (moderate)
CPT/HCPCS: 80048

== ENCOUNTER 2020-01-09 11:25 | Emergency (ER) | payer MEDICAID, SELFPAY ==
[2020-01-09] VITALS (72 sets, daily range): BP systolic 141–217; BP diastolic 74–118; PULSE 98–125; RESP 7–32; TEMP 36.1–37; O2SAT 95–100
--- NOTE | 2020-01-09 11:38 | ED.GENADUL_ITS ---
Discharge Plan Disposition Patient Disposition: HOME Condition: Improving Discharge Details Chief Complaint: GenMedical Clinical Impression: Abdominal pain, Nausea, Viral syndrome Primary Care Provider: Kathy Wright ED Provider: Zo Kat Home Meds and New Rx's Prescriptions: New ondansetron 4 mg tablet,disintegrating 4 mg PO TID PRN (Reason: nausea and vomiting) Qty: 6 RF: 0 Continued clonazepam [Klonopin] 0.5 mg tablet 0.5 mg PO BID PRNRF: 0 omeprazole [Prilosec] 20 MG capsule,delayed release(DR/EC) 40 mg PO DAILY RF: 0 albuterol sulfate [ProAir HFA] 8.5 GM HFA aerosol inhaler 2 puff Inhalation Q4H PRN RF: 0 metoprolol tartrate 50 MG tablet 50 mg PO BID RF: 0 Bupropion HCl 100 MG tablet 100 mg PO HS RF: 0 ranitidine HCl 300 mg capsule 300 mg PO QHS Qty: 30 RF: 5 levothyroxine 100 MCG tablet 100 mcg PO DAILY Qty: 30 RF: 3 Flovent HFA 12 GM HFA aerosol inhaler 110 mcg Inhalation BID Qty: 1 RF: 0 levalbuterol tartrate [Xopenex HFA] 15 GM HFA aerosol inhaler 2 inh Inhalation Q4H PRN PRNQty: 0 RF: 0 fluticasone propionate [Flonase Allergy Relief] 50 mcg/actuation [place],Suspension 2 spray INTRANASAL DAILY PRN PRNRF: 0 loratadine 10 mg Capsule RF: 0 sucralfate [Carafate] 1 gram tablet 1 gm PO QACHS Qty: 30 RF: 0 tramadol 50 mg tablet 50 mg PO Q6H PRN (Reason: pain) Qty: 7 RF: 0 Discharge Instructions Instructions: Acute Nausea and Vomiting (ED), Viral Syndrome (ED), Abdominal Pain (ED) Additional Instructions: Drink plenty of fluids and get plenty of rest. Alternate tylenol and motrin as needed and directed for pain. Take the Zofran as needed and directed for nausea and vomiting. Follow-up with your scheduled appointment with your primary care doctor tomorrow. Return to the emergency department if you develop any worsening or new concerning symptoms. Discharge Data Discharge Date/Time-TO BE ENTERED AT DEPARTURE: 01/09/20 19:25 Discharge Physician: Zo Kat Medical Decision Making 1215 -- 59-year-old female with a history of stage III lung cancer diagnosed in August 2019, COPD, fibromyalgia, former smoker presents with multiple symptoms including dizziness, weakness, fatigue, shortness of breath, abdominal gas and pain for the past 5 days. She has been treated with a right basilar segmentectomy of the lower lobe and mediastinal lymph node dissection and was started on chemotherapy in October 2019. Her last treatment was 6 days ago and she admits to the symptoms since then. She states she did well with her 3 previous chemotherapy treatments. BP hypertensive. Heart rate 100s. Afebrile. Normal oxygen saturation. Lungs clear. Abdomen soft without rigidity or guarding and with tenderness in the upper abdomen. Differential diagnosis includes side effects from chemotherapy, dehydration, pneumonia, PE, acute abdominal abnormality, UTI. Will place an IV, bolus IV fluids, screening labs, urinalysis and CT chest and abdomen. EKG notes a rate of 109, sinus with less than [address] depression in inferior and anterior lateral leads, but no acute ST elevation. 1445 --labs and imaging reviewed. Normal white blood cell count. Hemoglobin 10. Downtrended in 1 month ago from 12. Magnesium 1.5, will replete. Troponin negative. Urinalysis small leukocyte esterase and 5-10 WBCs, appears contaminated. CT notes a small right pleural effusion but no other acute findings. Patient reassessed -she states she stood up to urinate and felt nauseous. Still complaining of abdominal pain. BP 191/101. She states she did not take her blood pressure medication today. We will give her a dose of her metoprolol, a dose of morphine and Zofran and will reassess. 1600 --patient feels much better. She states she feels hungry. Will give a tray of food and reassess. 1730 -- pt states she feels better but nausea returned. Will give a dose of zofran and gi cocktail. Pt's BP increased again 201/101. Will give another dose of metoprolol 50mg as she receives 50mg bid. 1844 --patient feels much better. She was able to ambulate and denies any dizziness or nausea and is requesting to go home. We will send with Mari for home as well as prescription. She has an appoint with her primary care doctor tomorrow. Repeat blood pressure improved. She was advised to return here with any worsening symptoms. Medical Records Medical records reviewed: Yes I reviewed the patient's medical records. Imaging Data Radiologic Study: Radiologist's impression: CT Angiography Chest With Contrast Exam date and time: 01/09/2020 1:40 PM Age: 59 years old Clinical indication: Other: H/o lung CA; Other: Abd pain SOB; Prior surgery; Surgery date: 6+ months; Surgery type: Right lung lobectomy; Patient HX: Half dose contrast as per er doc. Due to renal fuction TECHNIQUE: Imaging protocol: Computed tomographic angiography of the chest with intravenous contrast. 3D rendering: MIP and/or 3D reconstructed images were created by the technologist. Radiation optimization: All CT scans at this facility use at least one of these dose optimization techniques: automated exposure control; mA and/or kV adjustment per patient size (includes targeted exams where dose is matched to clinical indication); or iterative reconstruction. Contrast material: OMNIPQUE; Contrast volume: 50 ml; Contrast route: RAC; COMPARISON: No relevant prior studies available. FINDINGS: Small right pleural effusion. Chronic lung disease with interstitial scarring and slight emphysematous changes. No evidence of pulmonary embolism. Thoracic aorta unremarkable. No significant focal consolidation. IMPRESSION: Small right pleural effusion with no other specific etiology identified for the patient's symptoms. CT Angiography Abdomen With Contrast Exam date and time: 01/09/2020 1:40 PM Age: 59 years old Clinical indication: Other: H/o lung CA; Other: Abd pain SOB; Prior surgery; Surgery date: 6+ months; Surgery type: Right lung lobectomy; Patient HX: Half dose contrast as per er doc. Due to renal fuction TECHNIQUE: Imaging protocol: Computed tomographic angiography images of the abdomen with intravenous contrast material. 3D rendering: MIP and/or 3D reconstructed images were created by the technologist. Radiation optimization: All CT scans at this facility use at least one of these dose optimization techniques: automated exposure control; mA and/or kV adjustment per patient size (includes targeted exams where dose is matched to clinical indication); or iterative reconstruction. Contrast material: OMNIPQUE; Contrast volume: 50 ml; Contrast route: RAC; COMPARISON: No relevant prior studies available. FINDINGS: Atrophy of the right kidney. Appendix is normal. Minimal atherosclerotic change of the abdominal aorta without aneurysmal dilatation. Otherwise unremarkable appearing solid organs. No intestinal obstruction. No obstructive uropathy. No free fluid. No free air. No inflammatory changes. IMPRESSION: No specific etiology identified for the patient's symptoms. Lab Data Lab results reviewed: Yes I reviewed the patient's lab results. Labs: Laboratory Tests Range/Units 01/09/20 01/09/20 01/09/20 12:02 12:15 12:15 WBC (4.4-10.8) k/cumm RBC (4.00-5.20) m/cumm Hgb (12.0-15.5) g/dL Hct (36.0-46.0) % MCV (80-95) fL MCH (27.0-33.0) pg MCHC (32.0-36.0) g/dL RDW (11.7-14.6) % Plt Count (130-400) x1000/uL MPV (8.0-11.0) fL Immature Gran % % Neutrophils % Lymphocytes % Monocytes % Eosinophils % Basophils % Absolute Neutrophils (1.2-6.7) k/cumm Absolute Lymphocytes (1.2-3.4) k/cumm Absolute Monocytes (0.11-0.7) k/cumm Absolute Eosinophils (0.0-0.7) k/cumm Absolute Basophils (0.0-0.2) k/cumm Sodium (136-145) mmol/L 134 L Potassium (3.5-5.1) mmol/L 4.3 Chloride (98-107) mmol/L 98 Carbon Dioxide (21.0-32.0) mmol/L 25.0 Anion Gap (3-11) mmol/L 11.0 BUN (7-18) mg/dL 20 H Creatinine (0.55-1.02) mg/dL 1.32 H Estimated GFR/1.73 m2 (mL/min/1.73m2) 41.19 Glucose (74-106) mg/dL 120 H Calcium (8.5-10.1) mg/dL 9.6 Magnesium (1.8-2.4) mg/dL 1.5 L Total Bilirubin (0.2-1.0) mg/dL 0.8 AST (15-37) U/L 36 ALT (14-59) U/L 37 Alkaline Phosphatase (46-116) U/L 121 H Troponin I (<0.06) ng/Ml < 0.05 NT-Pro-B Natriuret Pep (<300) pg/mL 585 H Total Protein (6.4-8.2) g/dL 7.8 Albumin (3.4-5.0) g/dL 3.7 Urine Color (Yellow) Yellow Urine Clarity (Clear) Cloudy Urine pH (5-8) 6.5 Ur Specific [place] (1.005-1.025) 1.015 Urine Protein (Negative) mg/dL 30 H Urine Ketones (Negative) mg/dL Negative Urine Blood (Negative) Negative Urine Nitrite (Negative) Negative Urine Bilirubin (Negative) Negative Urine Urobilinogen (Up TO 0.2) EU/dL 0.2 Ur Leukocyte Esterase (Negative) Small H Urine RBC (0-2) HPF Negative Urine WBC (0-5) HPF 5-10 Ur Epithelial Cells (Negative) HPF Many Urine Crystals (Negative) HPF Negative Urine Bacteria (Negative) HPF Moderate Urine Casts (Negative) LPF Negative Urine Mucus (Negative) Negative Urine Other (Negative) Few renal Ur Culture Indicated? No/sq. contamination Urine Glucose (Negative) mg/dL Negative Range/Units 01/09/20 12:15 WBC (4.4-10.8) k/cumm 6.69 RBC (4.00-5.20) m/cumm 3.44 L Hgb (12.0-15.5) g/dL 10.7 L Hct (36.0-46.0) % 31.6 L MCV (80-95) fL 91.9 MCH (27.0-33.0) pg 31.1 MCHC (32.0-36.0) g/dL 33.9 RDW (11.7-14.6) % 16.7 H Plt Count (130-400) x1000/uL 225 MPV (8.0-11.0) fL 9.1 Immature Gran % % 0.1 Neutrophils % 71.0 Lymphocytes % 27.2 Monocytes % 1.0 Eosinophils % 0.6 Basophils % 0.1 Absolute Neutrophils (1.2-6.7) k/cumm 4.74 Absolute Lymphocytes (1.2-3.4) k/cumm 1.82 Absolute Monocytes (0.11-0.7) k/cumm 0.07 L Absolute Eosinophils (0.0-0.7) k/cumm 0.04 Absolute Basophils (0.0-0.2) k/cumm 0.01 Sodium (136-145) mmol/L Potassium (3.5-5.1) mmol/L Chloride (98-107) mmol/L Carbon Dioxide (21.0-32.0) mmol/L Anion Gap (3-11) mmol/L BUN (7-18) mg/dL Creatinine (0.55-1.02) mg/dL Estimated GFR/1.73 m2 (mL/min/1.73m2) Glucose (74-106) mg/dL Calcium (8.5-10.1) mg/dL Magnesium (1.8-2.4) mg/dL Total Bilirubin (0.2-1.0) mg/dL AST (15-37) U/L ALT (14-59) U/L Alkaline Phosphatase (46-116) U/L Troponin I (<0.06) ng/Ml NT-Pro-B Natriuret Pep (<300) pg/mL Total Protein (6.4-8.2) g/dL Albumin (3.4-5.0) g/dL Urine Color (Yellow) Urine Clarity (Clear) Urine pH (5-8) Ur Specific [place] (1.005-1.025) Urine Protein (Negative) mg/dL Urine Ketones (Negative) mg/dL Urine Blood (Negative) Urine Nitrite (Negative) Urine Bilirubin (Negative) Urine Urobilinogen (Up TO 0.2) EU/dL Ur Leukocyte Esterase (Negative) Urine RBC (0-2) HPF Urine WBC (0-5) HPF Ur Epithelial Cells (Negative) HPF Urine Crystals (Negative) HPF Urine Bacteria (Negative) HPF Urine Casts (Negative) LPF Urine Mucus (Negative) Urine Other (Negative) Ur Culture Indicated? Urine Glucose (Negative) mg/dL ECG Data Attestation: I personally reviewed and interpreted this ECG (s) as follows: Interpretation: Rate of 109, sinus, less than [address] depression in 2, aVF, V4 through V6. No acute ST elevation. DE 130. QTc 45. QRS 92. HPI General Mode of arrival: EMS . Date/Time Provider Initiated Documentation: 01/09/20 11:47 . Limitations to Documentation: no limitations . Information obtained by: patient . History of Present Illness 59 year old F presents to the emergency department with the chief complaint of Dizziness, f atigue, weakness, abdominal pain, gas, shortness of breath, Quality is described as aching, and is localized to the abdomen. Patient reports no radiation. Patient started experiencing this day(s) (6) and it has been intermittent. No relieving factors improve symptom(s), No exacerbating factors reported . Patient notes cough (Ingested but no sputum), loss of appetite, malaise, shortness of breath and weakness; denies chest pain, diaphoresis, fever/chills, headaches, nausea/vomiting, rash, seizure and syncope. Patient did receive the following treatments prior to arrival, none Related Data Home Medications Medication Instructions Recorded Confirmed omeprazole [Prilosec] 40 mg PO DAILY 02/10/13 01/09/20 albuterol sulfate [ProAir HFA] 2 puff INHALATION Q4H PRN inhaler 07/25/15 01/09/20 Bupropion HCl 100 mg PO HS tab-cap 12/18/17 01/09/20 metoprolol tartrate 50 mg PO BID tab-cap 12/18/17 01/09/20 Flovent HFA 110 mcg INHALATION BID #1 inhaler 12/24/17 01/09/20 levalbuterol tartrate [Xopenex HFA] 2 inh INHALATION Q4H PRN PRN #0 12/24/17 01/09/20 levothyroxine 100 mcg PO DAILY #30 tab 12/24/17 01/09/20 clonazepam 0.5 mg tablet 0.5 mg PO BID PRN 02/01/19 01/09/20 fluticasone propionate [Flonase 2 spray INTRANASAL DAILY PRN PRN 02/18/19 01/09/20 Allergy Relief] loratadine 04/18/19 sucralfate [Carafate] 1 gm PO QACHS #30 tab 04/18/19 01/09/20 tramadol 50 mg PO Q6H PRN #7 tab 04/18/19 01/09/20 ranitidine HCl 300 mg capsule 300 mg PO QHS #30 cap 07/12/19 01/09/20 ondansetron 4 mg PO TID PRN #6 tab 01/09/20 Previous Rx's Medication Instructions Recorded Flovent HFA 110 mcg INHALATION BID #1 inhaler 12/24/17 levalbuterol tartrate [Xopenex HFA] 2 inh INHALATION Q4H PRN PRN #0 12/24/17 levothyroxine 100 mcg PO DAILY #30 tab 12/24/17 sucralfate [Carafate] 1 gm PO QACHS #30 tab 04/18/19 tramadol 50 mg PO Q6H PRN #7 tab 04/18/19 ranitidine HCl 300 mg capsule 300 mg PO QHS #30 cap 07/12/19 ondansetron 4 mg PO TID PRN #6 tab 01/09/20 Allergies Allergy/AdvReac Type Severity Reaction Status Date / Time prochlorperazine edisylate Allergy Severe Psychosis Verified 01/09/20 11:33 [From Compazine] prochlorperazine maleate Allergy Severe Psychosis Verified 01/09/20 11:33 [From Compazine] gluten Allergy Verified 01/09/20 11:33 combid Allergy Severe Psychosis Uncoded 01/09/20 11:33 General Stated Complaint: GenMedical JOISE: 3 Review of Systems All systems reviewed & are unremarkable except as noted in HPI and below Constitutional Constitutional: Reports as per HPI, Denies chills and Denies fever(s) Eyes Eyes: Denies blurry vision ENT Ears, Nose, Mouth, and Throat: Reports dizziness, Reports nasal congestion, Reports nasal discharge, Denies sore throat and Denies throat swelling Cardiovascular Cardiovascular: Denies chest pain and Denies dyspnea Respiratory Respiratory: Reports cough and Denies dyspnea Gastrointestinal Gastrointestinal: Reports abdominal pain, Denies diarrhea and Denies vomiting Genitourinary Genitourinary: Denies hematuria and Denies dysuria Musculoskeletal Musculoskeletal: Denies back pain and Denies numbness Integumentary/Breasts Skin/Breast: Denies lesions and Denies rash Neurologic Neurologic: Reports dizziness, Denies focal weakness and Denies numbness Allergic/Immunologic Allergic/Immunologic: Denies throat swelling [facility] Medical History ANXIETY STATE NOS Blood glucose elevated (Chronic) CELIAC DISEASE CHRONIC BOWEL DISTURBANCE/CHRONIC CONSTIPATION Chronic pain CHRONIC PAIN SYN COPD (chronic obstructive pulmonary disease) (Chronic) COUGH Depression Dizziness (Acute) Dysphagia (Chronic) Elevated LFTs (Chronic) Elevated lipids Esophagitis determined by endoscopy (Acute) FYBROMYALGIA Gastritis (Acute) GERD HX TOBACCO USE Hypertension HYPOTHYROIDISM IBS INSOMNIA Memory loss (Chronic) Peripheral neuropathy (Chronic) Reflex sympathetic dystrophy (Chronic) RSD SINUSITIS Tachycardia (Acute) URINARY INCON. Surgical History Bladder Surgery Sling Procedure tashia Moreno H/O esophagogastroduodenoscopy (Chronic ~02/23/19) History of esophagogastroduodenoscopy (EGD) (Chronic) Ligation of fallopian tube Rotator Cuff Repair (~2007) S/P rotator cuff repair (Acute) Family History Mother Pneumonia Father Mesothelioma Grandmother Breast cancer MGM Social History Smoking/Tobacco Use Status: Current every day Tobacco Type: cigarettes Alcohol Intake: never Drug use: Rarely Substance use type: marijuana Details: can't afford it Do you feel safe at home: Yes Do you feel safe in your relationship?: Yes History History 4 Para 2 Hx # Term Pregnancies Multiple births Hx # Pregnancies Ectopic pregnancies AB induced Hx Number of Living Children AB spontaneous Exam Const General: cooperative, healthy appearing and no acute distress HENMT Head: normal to inspection Face and sinus: normal facial exam Eyes General: appearance normal, both eyes and all related structures EOM: EOM intact bilaterally Neck Neck: normal visual inspection and No submandibular swelling Lymphatic: no lymphadenopathy noted Chest Chest: normal inspection of the chest and no tenderness Resp Effort & Inspection: normal respiratory effort and able to speak in complete sentences Auscultation: clear to auscultation bilaterally Cardio Rate: regular rate Rhythm: regular rhythm GI Inspection: normal to inspection Palpation: soft, not firm, not rigid and tender in the epigastrum, in the LUQ and in the RUQ Auscultation: normal bowel sounds Skin General skin exam: no rashes or lesions noted Neuro General: alert, awake and oriented x3 Cognition: normal cognition Speech: speech normal Motor: muscle tone normal throughout Sensory Exam: no sensory deficits noted Extrem General: normal to inspection, full ROM, normal capillary refill, no calf tenderness bilaterally and no edema Psych Appearance: grossly normal Mental Status: mental status grossly normal Speech and Movement: speech and movement normal Affect: normal affect Course Vital Signs Vital signs: Vital Signs Temperature 97.0 F L 01/09/20 11:28 Pulse 102 H 01/09/20 11:28 Respiratory Rate 24 01/09/20 11:28 Blood Pressure 178/105 H 01/09/20 11:28 Pulse Oximetry 99 01/09/20 11:28 Temperature 97.0 F L 01/09/20 11:28 Temperature Source Skin 01/09/20 11:28 Pulse 102 H 01/09/20 11:28 Respiratory Rate 24 01/09/20 11:28 Respiratory Effort Non-Labored 01/09/20 11:28 Blood Pressure 178/105 H 01/09/20 11:28 Blood Pressure Position Sitting 01/09/20 11:28 Pulse Oximetry 99 01/09/20 11:28 Oxygen Delivery Method Room Air 01/09/20 11:28 Oxygen Flow Rate 0 01/09/20 11:28 Pain Level 5 01/09/20 11:28 Comment 01/09/20 11:28
[2020-01-09 12:10] LABS: Bilirubin Negative (Negative); Blood Negative (Negative); Clarity Cloudy (Clear); Glucose Negative (Negative); Ketones Negative (Negative); Leukocyte Esterase Small (Negative); Nitrite Negative (Negative); Specific Gravity 1.015 (1.005-1.025); Urobilinogen 0.2 EU/dL (Up TO 0.2); pH 6.5 (5-8)
[2020-01-09 12:18] LABS: Bacteria Moderate HPF (Negative); C & S Indicated? No/Sq. Contamination; Casts Negative LPF (Negative); Crystals Negative HPF (Negative); Epithelial Cells Many HPF (Negative); Mucus Negative (Negative); Other Cells Few Renal (Negative); RBC Negative HPF (0-2)
[2020-01-09 12:24] LABS: Abs Immature Grans 0.01 k/cumm (0.0-0.09); Absolute Basophil Count 0.01 k/cumm (0.0-0.2); Absolute Eosinophil Count 0.04 k/cumm (0.0-0.7); Absolute Lymphocyte Count 1.82 k/cumm (1.2-3.4); Absolute Monocyte Count 0.07 k/cumm (0.11-0.7); Absolute Neutrophil Count 4.74 k/cumm (1.2-6.7); Basophils % 0.1; Eosinophils % 0.6; HCT 31.6 % (36.0-46.0); HGB 10.7 g/dL (12.0-15.5); Immature Grans % 0.1 %; Lymphocytes % 27.2; Mean Corp. HGB Concentration 33.9 g/dL (32.0-36.0); Mean Corpuscular Hemoglobin 31.1 pg (27.0-33.0); Mean Corpuscular Volume 91.9 fL (80-95); Mean Platelet Volume 9.1 fL (8.0-11.0); Platelet Count 225 x1000/uL (130-400); RBC 3.44 m/cumm (4.00-5.20); RBC Distribution Width 16.7 % (11.7-14.6); White Blood Cell Count 6.69 k/cumm (4.4-10.8)
[2020-01-09 12:40] LABS: ALT 37 U/L (14-59); AST 36 U/L (15-37); Albumin 3.7 g/dL (3.4-5.0); Alkaline Phosphatase 121 U/L (46-116); BUN 20 mg/dL (7-18); Bilirubin, Total 0.8 mg/dL (0.2-1.0); CREATININE 1.32 mg/dL (0.55-1.02); Calcium 9.6 mg/dL (8.5-10.1); Chloride 98 mmol/L (98-107); Estimated GFR 41.19 (mL/min/1.73m2); Glucose 120 mg/dL (74-106); Potassium 4.3 mmol/L (3.5-5.1); Sodium 134 mmol/L (136-145); Total Protein 7.8 g/dL (6.4-8.2)
[2020-01-09 12:46] LABS: Magnesium 1.5 mg/dL (1.8-2.4); NT-proBNP 585 pg/mL (<300)
[2020-01-09] MEDS: Normal Saline 1,000 ML 1000 ML IV ×2 (12:47→15:46)
[2020-01-09 12:51] LABS: Troponin I < 0.05 ng/Ml (<0.06)
[2020-01-09] MEDS: MAGNESIUM SULFATE 1 GM/100 ML BAG IVPB (13:11)
[2020-01-09] MEDS: Omnipaque 350 MG/ML 100 ML BTL IJ (13:37)
--- NOTE | 2020-01-09 13:37 | DI.CT_ITS ---
EXAM: CT CHEST PE ABD PELVIS W CLINICAL HISTORY: h/o lung ca; sob/abd pain TECHNIQUE: Chest CT was performed following IV contrast according to the pulmonary embolism protocol . Axial CT angiography was performed with multi-slice acquisition and multi-planar and/or 3D reconstruc tions. The abdomen and pelvic CT was performed subsequently without oral contrast. COMPARISON: CT ABDOMEN PELVIS WO from 04/18/2019 FINDINGS: Chest CT: The lungs are not well evaluated due to motion and expiratory technique. There is a small right pleural effusion. There is volume loss at the right lower lobe with suture material. Pulmona ry arteries are well opacified with IV contrast. No emboli are identified. There is no evidence of aortic dissection. There is left atrial and left ventricular enlargement. Abdomen and pelvic CT: Liver again shows fatty infiltration. The right kidney is atrophic. The sple en, left kidney, adrenals and pancreas are unremarkable. The appendix appears normal. There is no b owel dilatation or inflammatory change. There is mild sigmoid diverticulosis. There is calcificatio n of the abdominal aorta which shows mild luminal narrowing distally. There is a moderate compressio n fracture of L1 which has worsened when compared with the previous exam. IMPRESSION: Small right pleural effusion. Postsurgical changes at the right lower lobe. Interval worsening of L1 compression fracture. No evidence of pulmonary emboli.
--- NOTE | 2020-01-09 14:43 | DI.VRAD_ITS ---
PROCEDURE INFORMATION: Exam: CT Angiography Chest With Contrast Exam date and time: 01/09/2020 1:40 PM Age: 59 years old Clinical indication: Other: H/o lung CA; Other: Abd pain SOB; Prior surgery; Surgery date: 6+ months; Surgery type: Right lung lobectomy; Patient HX: Half dose contrast as per er doc. Due to renal fuction TECHNIQUE: Imaging protocol: Computed tomographic angiography of the chest with intravenous contrast. 3D rendering: MIP and/or 3D reconstructed images were created by the technologist. Radiation optimization: All CT scans at this facility use at least one of these dose optimization techniques: automated exposure control; mA and/or kV adjustment per patient size (includes targeted exams where dose is matched to clinical indication); or iterative reconstruction. Contrast material: OMNIPQUE; Contrast volume: 50 ml; Contrast route: RAC; COMPARISON: No relevant prior studies available. FINDINGS: Small right pleural effusion. Chronic lung disease with interstitial scarring and slight emphysematous changes. No evidence of pulmonary embolism. Thoracic aorta unremarkable. No significant focal consolidation. IMPRESSION: Small right pleural effusion with no other specific etiology identified for the patient's symptoms. PROCEDURE INFORMATION: Exam: CT Angiography Abdomen With Contrast Exam date and time: 01/09/2020 1:40 PM Age: 59 years old Clinical indication: Other: H/o lung CA; Other: Abd pain SOB; Prior surgery; Surgery date: 6+ months; Surgery type: Right lung lobectomy; Patient HX: Half dose contrast as per er doc. Due to renal fuction TECHNIQUE: Imaging protocol: Computed tomographic angiography images of the abdomen with intravenous contrast material. 3D rendering: MIP and/or 3D reconstructed images were created by the technologist. Radiation optimization: All CT scans at this facility use at least one of these dose optimization techniques: automated exposure control; mA and/or kV adjustment per patient size (includes targeted exams where dose is matched to clinical indication); or iterative reconstruction. Contrast material: OMNIPQUE; Contrast volume: 50 ml; Contrast route: RAC; COMPARISON: No relevant prior studies available. FINDINGS: Atrophy of the right kidney. Appendix is normal. Minimal atherosclerotic change of the abdominal aorta without aneurysmal dilatation. Otherwise unremarkable appearing solid organs. No intestinal obstruction. No obstructive uropathy. No free fluid. No free air. No inflammatory changes. IMPRESSION: No specific etiology identified for the patient's symptoms. Dictated and Authenticated by: Will Kraft MD. Ordering:MIGUEL ANGEL Pathak MD
[2020-01-09] MEDS: Ondansetron 4 MG/2 ML VIAL IVP ×2 (15:15→18:15)
[2020-01-09] MEDS: Metoprolol CR 50 MG TABCR PO (15:16)
[2020-01-09] MEDS: Normal Saline Flush 10 ML SYR IVP (18:15)
[2020-01-09] MEDS: Metoprolol 50 MG TAB PO (18:17)
[2020-01-09] MEDS: Ondansetron O.D.T. 4 MG TABEF, 3 TABS/BTL PO (19:20)
== END 2020-01-09 19:25 | disposition home or self-care (01) ==
PROVIDERS: Emergency Provider Physician Assistant; PCP Nurse Practitioner Family
DX: R06.02 Shortness of breath (principal); R42 Dizziness and giddiness; R11.0 Nausea; R10.816 Epigastric abdominal tenderness; E83.42 Hypomagnesemia; B34.9 Viral infection, unspecified; C34.31 Malignant neoplasm of lower lobe, right bronchus or lung; Z79.899 Other long term (current) drug therapy; J44.9 Chronic obstructive pulmonary disease, unspecified; Z87.891 Personal history of nicotine dependence; I10 Essential (primary) hypertension
CPT/HCPCS: 36415; 71275; 74177; 80053; 93005; 96361; 96365; 96375; 96376; 99285; 81003; 81015; 83735; 83880; 84484; 85025; 93010; J2405; J3475; J3490

== ENCOUNTER 2020-01-17 12:24 | Outpatient (CLI) | payer MEDICAID, SELFPAY ==
[2020-01-17 12:43] LABS: Absolute Basophil Count 0.01 k/cumm (0.0-0.2); Absolute Eosinophil Count 0.08 k/cumm (0.0-0.7); Absolute Lymphocyte Count 3.25 k/cumm (1.2-3.4); Absolute Monocyte Count 0.38 k/cumm (0.11-0.7); Absolute Neutrophil Count 1.25 k/cumm (1.2-6.7); Basophils % 0.2; Eosinophils % 1.6; HCT 22.7 % (36.0-46.0); HGB 7.8 g/dL (12.0-15.5); Lymphocytes % 65.4; Mean Corp. HGB Concentration 34.4 g/dL (32.0-36.0); Mean Platelet Volume 8.6 fL (8.0-11.0); Monocytes % 7.6; Neutrophils % 25.2; RBC 2.44 m/cumm (4.00-5.20); RBC Distribution Width 15.6 % (11.7-14.6); White Blood Cell Count 4.97 k/cumm (4.4-10.8)
[2020-01-17 12:52] LABS: Diff Comment PLT Morph Reviewed; Platelet Count 73 x1000/uL (130-400)
[2020-01-17 12:53] LABS: Anisocytosis 2+; Polychromasia Present
[2020-01-17 13:01] LABS: ALT 44 U/L (14-59); AST 23 U/L (15-37); Albumin 3.5 g/dL (3.4-5.0); Alkaline Phosphatase 94 U/L (46-116); Anion Gap 10.4 mmol/L (3-11); BUN 15 mg/dL (7-18); Bilirubin, Total 0.3 mg/dL (0.2-1.0); CO2 27.6 mmol/L (21.0-32.0); CREATININE 1.32 mg/dL (0.55-1.02); Calcium 8.7 mg/dL (8.5-10.1); Chloride 104 mmol/L (98-107); Estimated GFR 41.19 (mL/min/1.73m2); Glucose 104 mg/dL (74-106); LDH 371 U/L (81-234); Magnesium 1.4 mg/dL (1.8-2.4); Potassium 3.2 mmol/L (3.5-5.1); Sodium 142 mmol/L (136-145); Total Protein 7.2 g/dL (6.4-8.2)
== END 2020-01-17 12:44 ==
PROVIDERS: PCP Nurse Practitioner Family; Visit Provider Nurse Practitioner Adult Health
DX: C34.31 Malignant neoplasm of lower lobe, right bronchus or lung (principal)
CPT/HCPCS: 36415; 80053; 83615; 83735; 85025

== ENCOUNTER 2020-01-19 03:15 | Outpatient (RCR) | payer MEDICAID, SELFPAY ==
[2020-01-19] VITALS (8 sets, daily range): BP systolic 148–186; BP diastolic 78–120; PULSE 81–87; RESP 18–19; TEMP 36.3–36.4; O2SAT 99–100
[2020-01-19] MEDS: Normal Saline Flush 10 ML SYR 30 ML IVP (09:00)
== END 2020-01-29 23:59 | disposition home or self-care (01) ==
LOC: INF 03:15
PROVIDERS: PCP Nurse Practitioner Family; Visit Provider Internal Medicine Hematology & Oncology
DX: D64.9 Anemia, unspecified (principal); C34.31 Malignant neoplasm of lower lobe, right bronchus or lung
CPT/HCPCS: 36415; 36430; 80053; 86850; 86900; 86901; 86920; 86945; 83615; 83735; 85025; P9016

== ENCOUNTER 2020-01-19 07:33 | Outpatient (CLI) | payer MEDICAID, SELFPAY | END 2020-01-19 07:53 | PROVIDERS: PCP Nurse Practitioner Family; Visit Provider Internal Medicine Hematology & Oncology | DX: R69 Illness, unspecified (principal) | CPT/HCPCS: 36415; 80053; 86850; 86900; 86901; 86920; 83615; 83735; 85025 ==

== ENCOUNTER 2020-02-08 15:03 | Outpatient (REF) | payer MEDICAID, SELFPAY ==
[2020-02-08 20:50] LABS: BUN 25 mg/dL (7-18); CREATININE 1.37 mg/dL (0.55-1.02); Chloride 103 mmol/L (98-107); Estimated GFR 39.46 (mL/min/1.73m2); Glucose 125 mg/dL (74-106); Potassium 4.2 mmol/L (3.5-5.1); Sodium 140 mmol/L (136-145); TSH (W/Ref FT4) 8.06 uIU/mL (0.36-3.74)
[2020-02-08 21:20] LABS: FREE T4 0.93 ng/dL (0.76-1.46)
== END 2020-02-08 15:23 ==
LOC: NCHCN 15:03
PROVIDERS: PCP Nurse Practitioner Family; Visit Provider Nurse Practitioner Family
DX: E03.9 Hypothyroidism, unspecified (principal); I10 Essential (primary) hypertension; C34.90 Malignant neoplasm of unspecified part of unspecified bronchus or lung
CPT/HCPCS: 80048; 84439; 84443

== ENCOUNTER 2020-02-18 10:52 | Outpatient (CLI) | payer MEDICAID, SELFPAY ==
[2020-02-18 11:34] LABS: Abs Immature Grans 0.01 k/cumm (0.0-0.09); Absolute Basophil Count 0.06 k/cumm (0.0-0.2); Absolute Eosinophil Count 0.21 k/cumm (0.0-0.7); Absolute Lymphocyte Count 1.53 k/cumm (1.2-3.4); Absolute Monocyte Count 0.36 k/cumm (0.11-0.7); Absolute Neutrophil Count 3.52 k/cumm (1.2-6.7); Basophils % 1.1; Eosinophils % 3.7; HCT 26.5 % (36.0-46.0); HGB 8.8 g/dL (12.0-15.5); Immature Grans % 0.2 %; Lymphocytes % 26.9; Mean Corp. HGB Concentration 33.2 g/dL (32.0-36.0); Mean Corpuscular Hemoglobin 33.5 pg (27.0-33.0); Mean Corpuscular Volume 100.8 fL (80-95); Mean Platelet Volume 8.8 fL (8.0-11.0); Monocytes % 6.3; Neutrophils % 61.8; Platelet Count 280 x1000/uL (130-400); RBC 2.63 m/cumm (4.00-5.20); RBC Distribution Width 18.9 % (11.7-14.6); White Blood Cell Count 5.69 k/cumm (4.4-10.8)
[2020-02-18 11:51] LABS: ALT 41 U/L (14-59); AST 19 U/L (15-37); Albumin 3.6 g/dL (3.4-5.0); Alkaline Phosphatase 100 U/L (46-116); Anion Gap 10.7 mmol/L (3-11); BUN 19 mg/dL (7-18); Bilirubin, Total 0.2 mg/dL (0.2-1.0); CO2 26.3 mmol/L (21.0-32.0); CREATININE 1.52 mg/dL (0.55-1.02); Calcium 9.3 mg/dL (8.5-10.1); Chloride 104 mmol/L (98-107); Glucose 173 mg/dL (74-106); LDH 380 U/L (81-234); Magnesium 1.7 mg/dL (1.8-2.4); Potassium 4.3 mmol/L (3.5-5.1); Sodium 141 mmol/L (136-145); Total Protein 7.4 g/dL (6.4-8.2)
== END 2020-02-18 11:12 ==
PROVIDERS: PCP Nurse Practitioner Family; Visit Provider Internal Medicine Hematology & Oncology
DX: C34.31 Malignant neoplasm of lower lobe, right bronchus or lung (principal)
CPT/HCPCS: 36415; 80053; 83615; 83735; 85025

== ENCOUNTER 2020-02-25 08:07 | Outpatient (CLI) | payer MEDICAID, SELFPAY ==
[2020-02-25 11:33] LABS: Abs Immature Grans 0.02 k/cumm (0.0-0.09); Absolute Basophil Count 0.06 k/cumm (0.0-0.2); Absolute Eosinophil Count 0.31 k/cumm (0.0-0.7); Absolute Lymphocyte Count 2.39 k/cumm (1.2-3.4); Absolute Monocyte Count 0.79 k/cumm (0.11-0.7); Absolute Neutrophil Count 4.36 k/cumm (1.2-6.7); Basophils % 0.8; Eosinophils % 3.9; HCT 26.5 % (36.0-46.0); HGB 8.9 g/dL (12.0-15.5); Immature Grans % 0.3 %; Lymphocytes % 30.1; Mean Corp. HGB Concentration 33.6 g/dL (32.0-36.0); Mean Corpuscular Hemoglobin 33.8 pg (27.0-33.0); Mean Corpuscular Volume 100.8 fL (80-95); Mean Platelet Volume 8.8 fL (8.0-11.0); Neutrophils % 54.9; Platelet Count 278 x1000/uL (130-400); RBC 2.63 m/cumm (4.00-5.20); White Blood Cell Count 7.93 k/cumm (4.4-10.8)
[2020-02-25 11:37] LABS: ALT 50 U/L (14-59); AST 32 U/L (15-37); Albumin 3.6 g/dL (3.4-5.0); Alkaline Phosphatase 98 U/L (46-116); Anion Gap 8.8 mmol/L (3-11); BUN 16 mg/dL (7-18); Bilirubin, Total 0.3 mg/dL (0.2-1.0); CO2 25.2 mmol/L (21.0-32.0); CREATININE 1.35 mg/dL (0.55-1.02); Calcium 8.8 mg/dL (8.5-10.1); Chloride 103 mmol/L (98-107); Estimated GFR 40.14 (mL/min/1.73m2); Glucose 120 mg/dL (74-106); LDH 326 U/L (81-234); Magnesium 1.7 mg/dL (1.8-2.4); Potassium 4.2 mmol/L (3.5-5.1); Sodium 137 mmol/L (136-145); Total Protein 7.4 g/dL (6.4-8.2)
== END 2020-02-25 08:27 ==
PROVIDERS: PCP Nurse Practitioner Family; Visit Provider Internal Medicine Hematology & Oncology
DX: C34.31 Malignant neoplasm of lower lobe, right bronchus or lung (principal)
CPT/HCPCS: 36415; 80053; 83615; 83735; 85025

== ENCOUNTER 2020-03-15 17:11 | Outpatient (REF) | payer MEDICAID, SELFPAY ==
[2020-03-15 14:05] LABS: Iron 61 ug/dL (50-170); Total Iron Binding Capacity 333 ug/dL (250-450); Transferrin Sat 18 % (15-50)
[2020-03-15 14:19] LABS: Ferritin 371 ng/mL (8-252)
[2020-03-15 14:31] LABS: Bilirubin Negative (Negative); Blood Negative (Negative); Clarity Clear (Clear); Glucose Negative (Negative); Ketones Negative (Negative); Leukocyte Esterase Negative (Negative); Nitrite Negative (Negative); Specific Gravity 1.015 (1.005-1.025); Urobilinogen 0.2 EU/dL (Up TO 0.2)
[2020-03-16 12:12] LABS: Anion Gap 11.3 mmol/L (3-11); BUN 21 mg/dL (7-18); CO2 25.7 mmol/L (21.0-32.0); Calcium 9.4 mg/dL (8.5-10.1); Chloride 102 mmol/L (98-107); Estimated GFR 41.92 (mL/min/1.73m2); Glucose 116 mg/dL (74-106); Magnesium 1.5 mg/dL (1.8-2.4); Potassium 4.5 mmol/L (3.5-5.1); Sodium 139 mmol/L (136-145)
[2020-03-16 15:56] LABS: ALT 64 U/L (14-59); AST 41 U/L (15-37)
== END 2020-03-15 17:31 ==
LOC: LBN 17:11
PROVIDERS: PCP Nurse Practitioner Family; Referring Provider Family Medicine; Visit Provider Nurse Practitioner Family
DX: R11.2 Nausea with vomiting, unspecified (principal); D64.81 Anemia due to antineoplastic chemotherapy; I12.9 Hypertensive chronic kidney disease with stage 1 through stage 4 chronic kidney disease, or unspecified chronic kidney disease; N18.3 Chronic kidney disease, stage 3 (moderate); C34.91 Malignant neoplasm of unspecified part of right bronchus or lung
CPT/HCPCS: 80048; 81003; 82728; 83540; 83550; 83735; 84450; 84460

== ENCOUNTER 2020-03-20 14:38 | Outpatient (REF) | payer MEDICAID, SELFPAY ==
[2020-03-20 14:57] LABS: ALT 60 U/L (14-59); AST 33 U/L (15-37); Abs Immature Grans 0.01 k/cumm (0.0-0.09); Absolute Basophil Count 0.04 k/cumm (0.0-0.2); Absolute Lymphocyte Count 2.24 k/cumm (1.2-3.4); Absolute Monocyte Count 0.48 k/cumm (0.11-0.7); Absolute Neutrophil Count 3.62 k/cumm (1.2-6.7); Basophils % 0.6; C-Reactive Protein 0.45 mg/dL (0.0-0.3); HCT 32.3 % (36.0-46.0); Immature Grans % 0.2 %; Mean Corp. HGB Concentration 34.1 g/dL (32.0-36.0); Mean Corpuscular Hemoglobin 33.5 pg (27.0-33.0); Mean Corpuscular Volume 98.5 fL (80-95); Mean Platelet Volume 9.1 fL (8.0-11.0); Monocytes % 7.3; Neutrophils % 54.9; Platelet Count 294 x1000/uL (130-400); RBC 3.28 m/cumm (4.00-5.20); RBC Distribution Width 12.4 % (11.7-14.6); White Blood Cell Count 6.59 k/cumm (4.4-10.8)
[2020-03-20 16:01] LABS: ESR 68 mm/hr (0-30)
== END 2020-03-20 14:58 ==
LOC: LBN 14:38
PROVIDERS: PCP Nurse Practitioner Family; Visit Provider Nurse Practitioner Family
DX: C34.31 Malignant neoplasm of lower lobe, right bronchus or lung (principal); R11.2 Nausea with vomiting, unspecified; T45.1X5A Adverse effect of antineoplastic and immunosuppressive drugs, initial encounter; R71.8 Other abnormality of red blood cells; I12.9 Hypertensive chronic kidney disease with stage 1 through stage 4 chronic kidney disease, or unspecified chronic kidney disease
CPT/HCPCS: 85652; 84450; 84460; 85025; 86140

== ENCOUNTER 2020-03-31 16:05 | Outpatient (REF) | payer MEDICAID, SELFPAY ==
[2020-03-31 16:43] LABS: BUN 22 mg/dL (7-18); Calcium 9.8 mg/dL (8.5-10.1); Chloride 99 mmol/L (98-107); Estimated GFR 32.99 (mL/min/1.73m2); Glucose 105 mg/dL (74-106); Potassium 4.8 mmol/L (3.5-5.1); Sodium 134 mmol/L (136-145); TSH 1.08 uIU/mL (0.36-3.74)
== END 2020-03-31 16:25 ==
LOC: NCHCN 16:05
PROVIDERS: PCP Nurse Practitioner Family; Visit Provider Family Medicine
DX: C34.91 Malignant neoplasm of unspecified part of right bronchus or lung (principal); R11.2 Nausea with vomiting, unspecified; E83.42 Hypomagnesemia; J91.8 Pleural effusion in other conditions classified elsewhere; R71.8 Other abnormality of red blood cells; E03.9 Hypothyroidism, unspecified
CPT/HCPCS: 80048; 83735; 84443

== ENCOUNTER 2020-04-06 01:38 | Outpatient (CLI) | payer MEDICAID, SELFPAY ==
--- NOTE | 2020-04-06 12:59 | DI.CT_ITS ---
EXAM: CT CHEST WO CLINICAL HISTORY: F/U RESECTED LUNG CA, S/P CHEMO, ? RECURRENT DISEASE TECHNIQUE: Imaging Protocol: Axial computed tomography images with coronal and sagittal reformatted images were created and reviewed CONTRAST MATERIAL: Noncontrast COMPARISON: CT CT CHEST PE ABD PELVIS W from 01/09/2020 FINDINGS: Tracheobronchial tree: Patent where visualized. Mediastinum and Tammie: No dominant adenopathy or fluid collection. Pulmonary parenchyma: There is stable mild pleural thickening posteriorly at the right lung base. Flores ture material and linear scarring is noted in the right lower lobe where there is postsurgical volume loss. There is no evidence of a recurrent mass. No pulmonary nodules or infiltrates are seen. Pleura: No effusion or pneumothorax. Heart: The heart is not dilated. No coronary artery calcifications are seen. Aorta: Thoracic aorta non-dilated. Mild calcifications. Upper abdomen: Unremarkable. Lymph nodes: Within normal limits. Bones: Stable moderate L1 compression fracture. No new compression fractures or destructive lesions. . IMPRESSION: Postsurgical changes in the right lower lobe. No evidence of recurrence mass adenopathy or metastati c disease.. RADIATION DOSE DELIVERED: Total DLP DATA REPOSITORY: All CT scans at this facility are submitted to the National Radiology Data Registry (NRDR) Dose Index Registry (DIR) with the [employer] (ACR). RADIATION OPTIMIZATION: All CT scans at this facility use at least one of these dose optimization te chniques: automated exposure control; mA and/or kV adjustment per patient size (includes targeted exa ms where dose is matched to clinical indication); or iterative reconstruction.
== END 2020-04-06 01:58 ==
PROVIDERS: PCP Nurse Practitioner Family; Visit Provider Nurse Practitioner Adult Health
DX: C34.31 Malignant neoplasm of lower lobe, right bronchus or lung (principal); Z92.21 Personal history of antineoplastic chemotherapy
CPT/HCPCS: 71250

== ENCOUNTER 2020-04-06 01:39 | Outpatient (CLI) | payer MEDICAID, SELFPAY ==
--- NOTE | 2020-04-06 | DI.US_ITS ---
APPROVED REPORT EXAM: Comprehensive 2D, Doppler, and color-flow Echocardiogram Patient Location: Out-Patient [facility] Worker: Binta Mcmillan RDCS (AE) Indications: Lung Cancer, s/p Chemo, SOB Other Information Study Quality: Good Conclusion Normal left ventricular wall thickness and chamber size. Estimated ejection fraction is 55 to 60%. There are no segmental wall motion abnormalities. There is no chamber enlargement Aortic valve leaflets are mildly thickened. There is trace aortic regurgitation The mitral, tricuspid, and pulmonic valves are structurally normal. There is mild mitral regurgitati on. There is trace tricuspid and pulmonic regurgitation RVSP could not be estimated Wall motion Left Ventricle The left ventricle is normal size. The left ventricular systolic function is normal. The left ventric ular ejection fraction is within the normal range. There is normal left ventricular wall thickness. T here is normal LV segmental wall motion. Transmitral Doppler flow pattern suggests impaired LV relaxa tion. There is no ventricular septal defect visualized. LVEF is 55-60%. Right Ventricle The right ventricle is normal size. The right ventricular systolic function is normal. Atria The left atrium size is normal. The right atrium size is normal. The interatrial septum is intact wit h no evidence for an atrial septal defect. Aortic Valve The aortic valve is thickened mildly There is no aortic valvular stenosis. Trace aortic regurgitation . Mitral Valve The mitral valve is normal in structure. . No evidence of mitral valve stenosis. Mild mitral regurgit ation. Tricuspid Valve The tricuspid valve is normal in structure. There is no tricuspid valve stenosis. Trace tricuspid reg urgitation. Unable to assess PA pressure. Pulmonic Valve The pulmonary valve is normal in structure. There is no pulmonic valvular stenosis. Trace pulmonic re gurgitation. Great Vessels The aortic root is normal in size. The ascending aorta is normal in size. IVC is normal in size and c ollapses >50% with inspiration. Pericardium There is no pericardial effusion. 2D Dimensions IVSD d PLAX 0.81 cm F: 0.6-1.0 LV Vol A2C d MOD 59.2 mL LVPW d PLAX 0.81 cm F: 0.6 - 1.0 LV Vol A4C d MOD 61.9 mL LVID d PLAX 4.27 cm F: 3.8 - 5.2 LA vol/ BSA A2C s A-L 19.9 mL/m2 LVDs 3.15 cm F: 2.2 - 3.5 LA vol/ BSA A4C s A-L 17.4 mL/m2 Ao Root d 2.84 cm F: 2.7 - 3.3 LA Vol/ BSA Biplane s A-L 19.2 mL/m2 RA Area A4C 9.05 cm2 LA Area A4C s MOD 13.48 cm2 RA Vol/ BSA A4C s A-L 11.3 mL/m2 LA Area A2C s MOD 14.00 cm2 Ao Asc Diam d 2.75 cm F: 2.3 - 3.1 LV EF A4C MOD 62.9 % LV EF Teichholz 51.4 % LV EF A2C MOD 56.9 % LVEF (Lawrence's) 58.99 % F: 54 - 74 LV EF Biplane MOD 59.0 % LV Volume 48.67 mL F: 46 - 106 LV Volume Index 29.31 mL/m2 F: 29 - 61 LV Vol Biplane MOD 60.8 mL FS 26.00 % M-Mode TAPSE 1.62 cm (M/F) >1.7 LV Diastology MV E' medial 0.066 (>0.07 m/s) E/A Ratio 0.6 LV E/e MED 8.30 (<14) MV E Vmax 0.55 (0.4-1.3 m/s) MV E' lateral 0.064 (>0.1 m/s) MV A Vmax 0.85 (0.4-1.3 m/s) LV E/e LAT 8.70 (<14) MV E/A Ratio 0.64 MV E/E' medial 8.33 MV E/E' lateral 8.72 Aortic Valve LVOT Area 2.81 cm2 AoV Area Vmax 2.02 cm2 LVOT Vmax 0.71 m/s AoV Area/ BSA (Vmax) 1.21 cm2/m2 LVOT Mean Demarco. 0.47 m/s LUDY Mean Demarco. 1.92 cm2 LVOT Peak Grad 2.0 mmHg LUDY Mean Demarco. Index 1.16 cm2/m2 LVOT Mean Grad 1.0 mmHg LVOT VTI 0.162 m LVOT Diam s 1.85 cm (M/F) 1.5-2.5 AoV Vmax 0.99 (0.5-1.3 m/s) Velocity Ratio 0.71 AoV Mean Demarco. 0.69 m/s AoV Peak Grad 3.9 mmHg LVOT SV 45.37 mL AoV Mean Grad 2.1 (<5 mmHg) AoV VTI 0.215 (0.18-0.25 m) AoV Area VTI 2.11 (2.5-4.5 cm2) AoV Area/ BSA (VTI) 1.27 cm/m2 Mitral Valve MV DT 206 (160-240 msec) MV PHT 60 msec MV Area PHT 3.69 cm2 Pulmonary Valve PV Vmax 0.79 (0.5-1.5 m/s) RVOT Peak Gr. 1.27 mmHg PV Peak Grad 2.5 mmHg RVOT Mean Gr. 0.70 mmHg PV Mean Grad 1.4 mmHg RVOT VTI 0.122 m PV VTI 0.159 m RVOT Vmax 0.56 m/s
[2020-04-06] MEDS: Omnipaque 350 MG/ML 50 ML BTL PO (11:53)
[2020-04-06] MEDS: Breeza Beverage 473 ML BTL PO ×2 (11:53→11:54)
--- NOTE | 2020-04-06 12:59 | DI.CT_ITS ---
EXAM: CT ABDOMEN PELVIS WO CLINICAL HISTORY: ABD BLOATING, R14.0,URINARY RETENTION,R33.9,CHRONIC KIDNEY. TECHNIQUE: Oral contrast was administered prior to the exam. No IV contrast was administered. COMPARISON: CT CT CHEST PE ABD PELVIS W from 01/09/2020 FINDINGS: ABDOMEN: Lung Bases: Mild right basilar scarring. Liver: Enlarged. Fatty infiltration.. No measurable mass. Gallbladder and biliary tract: No radiodense calculus or dilation. Pancreas: Normal density, no abnormal calcifications or inflammatory process. Spleen: Normal. Kidneys: A atrophic right kidney is again noted. There is mild compensatory hypertrophy of the left kidney.. No radiodense stones or obstructive uropathy. No masses seen. Adrenal glands: No masses seen. Lymph nodes: Within normal limits. Abdominal Aorta: Abdominal portion non-dilated. Mild calcification. PELVIS: Bladder: Symmetric distention, no gross wall thickening. Bowel: No obstruction or bowel wall thickening. Mild sigmoid diverticulosis. Moderate quantity of s tool. Peritoneal cavity: No ascites, collection or mesenteric inflammatory response. Reproductive organs: Within normal limits. Bones: Stable moderate L1 compression fracture. The remaining vertebral bodies are well maintained i n height. IMPRESSION: Atrophic right kidney. No evidence of hydronephrosis or urinary tract calculi.. RADIATION DOSE DELIVERED: Total DLP DATA REPOSITORY: All CT scans at this facility are submitted to the National Radiology Data Registry (NRDR) Dose Index Registry (DIR) with the [employer] (ACR). RADIATION OPTIMIZATION: All CT scans at this facility use at least one of these dose optimization te chniques: automated exposure control; mA and/or kV adjustment per patient size (includes targeted exa ms where dose is matched to clinical indication); or iterative reconstruction.
== END 2020-04-06 01:59 ==
PROVIDERS: PCP Nurse Practitioner Family; Visit Provider Nurse Practitioner Family
DX: R06.02 Shortness of breath (principal); C34.31 Malignant neoplasm of lower lobe, right bronchus or lung; Z92.21 Personal history of antineoplastic chemotherapy; R14.0 Abdominal distension (gaseous); R33.9 Retention of urine, unspecified; N18.9 Chronic kidney disease, unspecified
CPT/HCPCS: 36415; 71250; 80053; 74176; 83615; 83735; 85025; 93306; Q9967

== ENCOUNTER 2020-04-06 02:41 | Outpatient (CLI) | payer MEDICAID, SELFPAY ==
[2020-04-06 13:28] LABS: Abs Immature Grans 0.01 k/cumm (0.0-0.09); Absolute Basophil Count 0.03 k/cumm (0.0-0.2); Absolute Eosinophil Count 0.16 k/cumm (0.0-0.7); Absolute Lymphocyte Count 2.24 k/cumm (1.2-3.4); Absolute Monocyte Count 0.55 k/cumm (0.11-0.7); Absolute Neutrophil Count 3.48 k/cumm (1.2-6.7); Basophils % 0.5; Eosinophils % 2.5; HCT 32.4 % (36.0-46.0); HGB 11.2 g/dL (12.0-15.5); Immature Grans % 0.2 %; Lymphocytes % 34.6; Mean Corp. HGB Concentration 34.6 g/dL (32.0-36.0); Mean Corpuscular Hemoglobin 32.6 pg (27.0-33.0); Mean Corpuscular Volume 94.2 fL (80-95); Mean Platelet Volume 8.5 fL (8.0-11.0); Monocytes % 8.5; Neutrophils % 53.7; Platelet Count 267 x1000/uL (130-400); RBC 3.44 m/cumm (4.00-5.20); RBC Distribution Width 11.9 % (11.7-14.6); White Blood Cell Count 6.47 k/cumm (4.4-10.8)
[2020-04-06 13:41] LABS: ALT 47 U/L (14-59); AST 31 U/L (15-37); Albumin 3.7 g/dL (3.4-5.0); Alkaline Phosphatase 110 U/L (46-116); Anion Gap 8.3 mmol/L (3-11); BUN 14 mg/dL (7-18); Bilirubin, Total 0.3 mg/dL (0.2-1.0); CO2 27.7 mmol/L (21.0-32.0); CREATININE 1.42 mg/dL (0.55-1.02); Calcium 9.6 mg/dL (8.5-10.1); Chloride 101 mmol/L (98-107); Estimated GFR 37.86 (mL/min/1.73m2); Glucose 95 mg/dL (74-106); LDH 260 U/L (81-234); Magnesium 1.6 mg/dL (1.8-2.4); Potassium 4.1 mmol/L (3.5-5.1); Sodium 137 mmol/L (136-145); Total Protein 8.2 g/dL (6.4-8.2)
== END 2020-04-06 03:01 ==
PROVIDERS: PCP Nurse Practitioner Family; Visit Provider Nurse Practitioner Adult Health
DX: C34.91 Malignant neoplasm of unspecified part of right bronchus or lung (principal)
CPT/HCPCS: 36415; 80053; 83615; 83735; 85025

== ENCOUNTER 2020-04-11 09:30 | Outpatient (REF) | payer MEDICAID, SELFPAY ==
[2020-04-11 10:00] LABS: Bilirubin Negative (Negative); Blood Negative (Negative); Clarity Clear (Clear); Glucose Negative (Negative); Ketones Negative (Negative); Leukocyte Esterase Negative (Negative); Nitrite Negative (Negative); Urobilinogen 0.2 EU/dL (Up TO 0.2); pH 6.5 (5-8)
[2020-04-11 10:42] LABS: *AMPHETAMINES SCREEN URINE Negative (Negative); *BARBITURATES SCREEN URINE Negative (Negative); *BENZODIAZEPINES SCREEN URINE Negative (Negative); Cannabinoids THC Negative (Negative); Cocaine Screen,Urine Negative (Negative); METHADONE URINE SCREEN Negative (Negative); OPIATES URINE SCREEN Negative (Negative)
[2020-04-11 10:44] LABS: Tricyclic Antidepressants POSITIVE (Negative)
== END 2020-04-11 09:50 ==
LOC: LBN 09:30
PROVIDERS: PCP Nurse Practitioner Family; Visit Provider Nurse Practitioner Family
DX: N18.3 Chronic kidney disease, stage 3 (moderate) (principal); F43.25 Adjustment disorder with mixed disturbance of emotions and conduct
CPT/HCPCS: 80307; 81003; 87086

== ENCOUNTER 2020-04-27 13:35 | Outpatient (REF) | payer MEDICAID, SELFPAY ==
[2020-04-27 14:24] LABS: Bilirubin Negative (Negative); Blood Negative (Negative); Clarity Sl Cloudy (Clear); Glucose Negative (Negative); Ketones Negative (Negative); Leukocyte Esterase Large (Negative); Nitrite Negative (Negative); Specific Gravity 1.015 (1.005-1.025); Urobilinogen 0.2 EU/dL (Up TO 0.2)
[2020-04-27 14:35] LABS: Bacteria Many HPF (Negative); Epithelial Cells Many HPF (Negative); RBC 0-2 HPF (0-2); WBC 20-50 HPF (0-5)
[2020-04-27 14:36] LABS: C & S Indicated? No/Sq. Contamination; Casts Negative LPF (Negative); Crystals Negative HPF (Negative); Mucus Negative (Negative)
== END 2020-04-27 13:55 ==
LOC: LBN 13:35
PROVIDERS: PCP Nurse Practitioner Family; Visit Provider Nurse Practitioner Family
DX: R82.998 Other abnormal findings in urine (principal); N18.9 Chronic kidney disease, unspecified
CPT/HCPCS: 81003; 81015

== ENCOUNTER 2020-08-21 00:34 | Outpatient (CLI) | payer MEDICAID, SELFPAY ==
--- NOTE | 2020-08-21 13:08 | DI.CT_ITS ---
EXAM: CT CHEST WO CLINICAL HISTORY: H/O LUNG CA, RESECTED,S/P CHEMO, ? DISEASE RECURRENCE. TECHNIQUE: Imaging protocol: Axial computed tomography images were obtained and coronal and sagittal reformatted images were created and reviewed. COMPARISON: CT CT CHEST WO from 04/06/2020 FINDINGS: Tracheobronchial tree: Patent where visualized. Mediastinum and Tammie: No dominant adenopathy or fluid collection. Pulmonary parenchyma: No consolidation or dominant measurable mass. There is stable scarring in the r ight lung base. No pulmonary nodules. Stable postsurgical changes in the right hemithorax. Pleura: No effusion or pneumothorax. Heart: The heart is not dilated. No coronary artery calcifications are seen. No significant pericardi al effusion. Aorta: Thoracic aorta non-dilated. Mild atherosclerosis. Upper abdomen: Diffuse fatty infiltration of the liver splenic calcified granuloma. Marked right re nal cortical atrophy. Lymph nodes: Within normal limits. Bones:Postsurgical changes in the left humeral head. Degenerative changes in the spine. Stable L1 c ompression fracture deformity. Soft tissues: Unremarkable. IMPRESSION: Stable postsurgical changes in the right hemithorax. No evidence of a recurrent mass or metastatic d isease. RADIATION DOSE DELIVERED: 550.38mGy.cm Total DLP 550.38mGy.cm Total DLP DATA REPOSITORY: All CT scans at this facility are submitted to the National Radiology Data Registry (NRDR) Dose Index Registry (DIR) with the [employer] (ACR). RADIATION OPTIMIZATION: All CT scans at this facility use at least one of these dose optimization te chniques: automated exposure control; mA and/or kV adjustment per patient size (includes targeted exa ms where dose is matched to clinical indication); or iterative reconstruction.
== END 2020-08-21 00:54 ==
PROVIDERS: PCP Nurse Practitioner Family; Visit Provider Nurse Practitioner Adult Health
DX: Z85.118 Personal history of other malignant neoplasm of bronchus and lung (principal)
CPT/HCPCS: 71250

== ENCOUNTER 2020-09-11 11:00 | Outpatient (REF) | payer MEDICAID, SELFPAY ==
[2020-09-11 19:20] LABS: HCT 36.1 % (36.0-46.0); HGB 11.9 g/dL (11.2-15.7); MCH 30.4 pg (27.0-33.0); MCV 92.3 fL (80-95); MPV 10.5 fL (8.0-11.0); Platelet Count 222 10^3/uL (130-400); RBC 3.91 10^6/uL (3.93-5.22); RDW 13.7 % (11.7-14.6); RDW-SD 45.9 fL; WBC 6.35 10^3/uL (4.4-10.8)
[2020-09-11 19:23] LABS: Anion Gap 11.7 mmol/L (3-11); BUN 15 mg/dL (7-18); CO2 24.3 mmol/L (21.0-32.0); CREATININE 1.58 mg/dL (0.55-1.02); Calcium 9.8 mg/dL (8.5-10.1); Chloride 102 mmol/L (98-107); Estimated GFR 33.36 (mL/min/1.73m2); Glucose 117 mg/dL (74-106); Potassium 4.6 mmol/L (3.5-5.1); Sodium 138 mmol/L (136-145)
[2020-09-12 09:27] LABS: TSH (W/Ref FT4) 0.49 uIU/mL (0.36-3.74)
== END 2020-09-11 11:20 ==
LOC: NCHCN 11:00
PROVIDERS: PCP Nurse Practitioner Family; Visit Provider Nurse Practitioner Family
DX: D64.81 Anemia due to antineoplastic chemotherapy (principal); E61.2 Magnesium deficiency; E03.9 Hypothyroidism, unspecified
CPT/HCPCS: 80048; 85027; 83735; 84443

== ENCOUNTER 2020-09-28 01:19 | Outpatient (CLI) | payer MEDICAID, SELFPAY ==
--- NOTE | 2020-09-28 | DI.US_ITS ---
EXAM: US RENAL CLINICAL HISTORY: URINARY RETENTION,R33.9,CHRONIC KIDNEY DISEASE,WORSENING RENAL FUNCTION TECHNIQUE: Ultrasound performed using standard protocol. COMPARISON: US US ECHOCARDIOGRAM from 04/06/2020 FINDINGS: There is an atrophic right kidney as noted prior abdominal CT. Left kidney measures 11.3 x 5.0 x 5.1 cm. Right kidney is highly echogenic and measures 8.9 x 2.8 x 3.1 cm. There is no evidence of left nephrolithiasis or hydronephrosis. Urinary bladder is grossly unremarkable as visualized, pre and postvoid urinary bladder volume measur ements are 169 cc and 47 cc respectively. Ureteral jets were nonvisualized. IMPRESSION: There is a known atrophic right kidney. No specific abnormality seen involving left kidney. No urin vadim tract obstruction. DATA REPOSITORY:
--- NOTE | 2020-09-28 11:41 | DI.MAMMO_ITS ---
EXAM: MG MAMMO SCREENING CLINICAL HISTORY: SCREENING, PREVENTIVE HEALTH CARE,Z00.00 TECHNIQUE: Mammograms were interpreted according to the usual protocol including computer analysis w MANGO BCN system, tomosynthesis and C-view imaging. COMPARISON: FINDINGS: Breasts are of moderate density. There is asymmetric radiodensity in upper outer quadrant of the lef t breast, unchanged in comparison with previous examinations including October 2018. No new mass or clumped microcalcification identified in either breast. IMPRESSION: No specific evidence of malignancy at this time. Routine screening examinations are suggested at yea rly intervals due to the family history of breast carcinoma. BI-RADS Category 1 - Negative Breast Density - Category B - Scattered areas of fibroglandular density
== END 2020-09-28 01:39 ==
PROVIDERS: PCP Nurse Practitioner Family; Visit Provider Nurse Practitioner Family
DX: Z12.31 Encounter for screening mammogram for malignant neoplasm of breast (principal); Z00.00 Encounter for general adult medical examination without abnormal findings; N26.1 Atrophy of kidney (terminal)
CPT/HCPCS: 76770; 77063; 77067

== ENCOUNTER 2020-10-17 00:35 | Outpatient (CLI) | payer MEDICAID, SELFPAY ==
--- NOTE | 2020-10-17 | DI.MRI_ITS ---
EXAM: MR LUMBAR SPINE WO CLINICAL HISTORY: LUMBAR PAIN,M54.5,H/O L1 COMP FX,H/O FALLS. TECHNIQUE: Multiplanar multisequence MRI of the Lumbar spine was performed. COMPARISON: CR XR lumbar spine complete from 04/03/[address] ABDOMEN PELVIS WO from 04/06/2020 FINDINGS: Bones: The last intervertebral disc space is designated the L5/S1 level for the numbering purpose of this examination. There is an old L1 compression fracture deformity. There is mild retropulsion in to the spinal canal but no significant central spinal canal stenosis results. There is slight exagge ration of the kyphosis at the T12-L1 level secondary to the compression fracture. The signal charact eristics are unremarkable. Cord: The conus tip ends at the L1 level. It is of normal size and signal intensity. T12-L1: No disc herniations or bulges are present. No central spinal canal or neural foraminal stenos is. L1-2: No disc herniations or bulges are present. No central spinal canal or neural foraminal stenosis . L2-3: No disc herniations or bulges are present. No central spinal canal or neural foraminal stenosis . L3-4: No disc herniations or bulges are present. No central spinal canal or neural foraminal stenosis . L4-5: No disc herniations or bulges are present. No central spinal canal or neural foraminal stenosis . L5-S1: No disc herniations or bulges are present. No central spinal canal or neural foraminal stenosi s. Soft tissues: The visualized SI joints and sacrum are well maintained. The paraspinal soft tissues ar e unremarkable. Note is again made of an atrophic right kidney. IMPRESSION: 1. Old L1 compression fracture deformity. 2. No acute fracture or subluxation in the lumbar spine. 3. No significant central spinal canal or neural foraminal stenosis in the lumbar spine. No focal di sc herniation. 4. Unchanged atrophic right kidney. DATA REPOSITORY:
== END 2020-10-17 00:55 ==
PROVIDERS: PCP Nurse Practitioner Family; Visit Provider Nurse Practitioner Family
DX: M54.5 Low back pain (principal)
CPT/HCPCS: 72148

== ENCOUNTER 2020-11-14 19:03 | Outpatient (REF) | payer MEDICAID, SELFPAY ==
[2020-11-14 20:22] LABS: Anion Gap 11.8 mmol/L (3-11); BUN 16 mg/dL (7-18); CO2 22.2 mmol/L (21.0-32.0); CREATININE 1.38 mg/dL (0.55-1.02); Calcium 9.1 mg/dL (8.5-10.1); Calculated LDL 119 mg/dL (<100); Chloride 105 mmol/L (98-107); Cholesterol 202 mg/dL (<200); Glucose 117 mg/dL (74-106); HDL Cholesterol 49 mg/dL (40-60); Potassium 4.5 mmol/L (3.5-5.1); Sodium 139 mmol/L (136-145); Triglyceride 174 mg/dL (<150)
== END 2020-11-14 19:23 ==
LOC: NCHCN 19:03
PROVIDERS: PCP Nurse Practitioner Family; Visit Provider Nurse Practitioner Family
DX: I10 Essential (primary) hypertension (principal); E78.5 Hyperlipidemia, unspecified
CPT/HCPCS: 80048; 80061

== ENCOUNTER 2020-12-19 20:14 | Outpatient (REF) | payer MEDICAID, SELFPAY ==
[2020-12-19 20:09] LABS: Iron 86 ug/dL (50-170)
[2020-12-19 20:23] LABS: Hemoglobin A1C 6.3 % (<5.7)
[2020-12-19 20:36] LABS: Ferritin 179 ng/mL (8-252); Magnesium 1.7 mg/dL (1.8-2.4); TSH 0.62 uIU/mL (0.36-3.74); Vitamin B12 452 pg/mL (193-986)
[2020-12-21 04:48] LABS: Vitamin D 25 Total 47.3 ng/ml (30-100)
[2020-12-22 20:42] LABS: Nortriptyline 99 ng/mL (70-170)
== END 2020-12-19 20:34 ==
LOC: NCHCN 20:14
PROVIDERS: PCP Nurse Practitioner Family; Visit Provider Nurse Practitioner Family
DX: D64.81 Anemia due to antineoplastic chemotherapy (principal); E03.9 Hypothyroidism, unspecified; I10 Essential (primary) hypertension; N18.30 Chronic kidney disease, stage 3 unspecified; E61.2 Magnesium deficiency; R20.2 Paresthesia of skin; R73.09 Other abnormal glucose; M79.604 Pain in right leg
CPT/HCPCS: 80335; 82306; 82607; 82728; 83036; 83540; 83735; 84443

== ENCOUNTER 2021-05-02 06:07 | Day surgery (SDC) | payer MEDICAID, SELFPAY ==
[2021-05-02 06:35] VITALS: BP 148/85; PULSE 78; RESP 20; TEMP 36.5; O2SAT 99
--- NOTE | 2021-05-02 07:29 | PDOC.DSDIS_ITS ---
Discharge Plan Disposition Patient Disposition: HOME Condition: Good Discharge Details Reason For Visit: TRIGGER FINGER Attending Provider: Alberto Lamb Primary Care Provider: Kathy Wright Home Meds and New Rx's Prescriptions: New acetaminophen 500 mg capsule 1,000 mg PO Q8H PRN PRNQty: 90 RF: 0 ibuprofen 600 mg tablet 600 mg PO TID PRN (Reason: pain) Qty: 30 RF: 0 Continued clonazepam [Klonopin] 0.5 mg tablet 1 mg PO BID PRNRF: 0 famotidine 20 mg tablet 20 mg PO DAILY RF: 0 omeprazole [Prilosec] 20 MG capsule,delayed release(DR/EC) 20 mg PO DAILY RF: 0 albuterol sulfate [ProAir HFA] 8.5 GM HFA aerosol inhaler 2 puff Inhalation Q4H PRN RF: 0 metoprolol tartrate 50 MG tablet 50 mg PO BID RF: 0 Flovent HFA 12 GM HFA aerosol inhaler 110 mcg Inhalation BID Qty: 1 RF: 0 levalbuterol tartrate [Xopenex HFA] 15 GM HFA aerosol inhaler 2 inh Inhalation Q4H PRN PRNQty: 0 RF: 0 fluticasone propionate [Flonase Allergy Relief] 50 mcg/actuation [place],Suspension 2 spray INTRANASAL DAILY PRN PRNRF: 0 bupropion HCl 100 mg tablet 100 mg PO BID RF: 0 lisinopril 10 mg tablet 10 mg PO DAILY RF: 0 gabapentin 100 mg capsule 200 mg PO BID RF: 0 albuterol sulfate [ProAir HFA] 90 mcg/actuation HFA aerosol inhaler 2 puff INHALATION PRN PRNRF: 0 amitriptyline 100 mg tablet 100 mg PO DAILY RF: 0 magnesium oxide 250 mg magnesium tablet 250 mg PO DAILY RF: 0 cholecalciferol (vitamin D3) 25 mcg (1,000 unit) tablet 1,000 unit PO DAILY RF: 0 melatonin 5 mg tablet 5 mg PO DAILY RF: 0 levothyroxine 100 MCG tablet 112 mcg PO DAILY RF: 0 ondansetron 4 mg tablet,disintegrating 4 mg PO TID PRN (Reason: nausea and vomiting) Qty: 6 RF: 0 Discharge Instructions Stand Alone Forms: Adonis Ricketts Referrals: Alberto Lamb MD [ [facility] STAFF PHYSICIAN] - Activity:: Activity as Tolerated Remove Dressings/Wound Care:: 48 hours Shower/Bathe:: 48 hours Diet:: As Tolerated Discharge Orders Discharge Orders: Discharge Order (Routine); Ordered 05/02/21 Ordered By: Rj Hager DS: Diagnosis Discharge Diagnosis (1) Trigger finger of right thumb: Status: Acute
[2021-05-02] MEDS: Sodium Bicarbonate 50 MEQ/50 ML VIAL (07:37)
[2021-05-02 07:45] VITALS: BP 150/86; PULSE 98; RESP 18; TEMP 36.1; O2SAT 96
--- NOTE | 2021-05-02 10:57 | W.PM.OP ---
Date of service: 05/02/21 Time of Service: 07:44 Operative Note Operative Note DATE OF PROCEDURE: 05/02/21 PRE-OP DIAGNOSIS: Right Trigger Thumb POST-OP DIAGNOSIS: same PROCEDURE: Trigger Finger Release - Right Thumb SURGEON: Alberto Lamb Refer to Anesthesia Record ESTIMATED BLOOD LOSS: 0 PATHOLOGY: none sent TOURNIQUET TIME: 0 COMPLICATIONS: None Patient was transported to: same day Patient's condition: stable Indications: I have seen Marleni in clinic for symptoms of a trigger finger. The catching, clicking, locking, and pain limited function. The diagnosis of trigger finger was evident. The symptoms had not responded to conservative measures. I discussed trigger finger release with the patient. I reviewed the risks of the procedure to include, but not limited to, bleeding, infection, pain, stiffness, incomplete release, damage to nerves or vessels, continued catching, recurrence. Despite these risks, the patient elected to proceed. Findings: There was a tightened A1 lupe which was released. The flexor tendon was inspected and the patient was able to move the finger without any catching, clicking, or locking. Procedure Description: Marleni was greeted in the preoperative holding area where the correct side was identified and marked. The consent was reviewed with the patient and signed. All questions were answered. She was taken back to the operating room. The patient was placed into the supine position on the operating room table with the right arm on an arm board. All bony prominences were well padded. No prophylactic antibiotics were administered since this was a clean, elective hand surgical case. The right arm was then prepped with Chloraprep and draped in a standard fashion with stockinette and extremity drape. A timeout to confirm correct identity, side and site, procedure, allergies, anesthesia, and medical concerns was performed. The surgical site was marked as a longitudinal incision directly over the A1 lupe of the involved digit. This was confirmed with palpation during finger flexion. This area, overlying the metacarpal head, was then anesthetized with 1% Lidocaine. The patient tolerated this well and once the anesthetic had setup, the procedure began. A longitudinal incision was made through skin only, approximately 1cm. The deep tissues were dissected bluntly. Once the A1 lupe and flexor tendons were identified the soft tissue including neurovascular structures were retracted medially and laterally. There were no crossing structures over the A1 lupe. The proximal edge of the lupe was identified and the lupe was incised with tenotomy scissors. There was a release of the tendons once this was fully released. The tendons were then removed from the wound and inspected. Excess synovium was resected. The tendons were then returned and the patient was asked to move the finger into deep flexion and back to extension. There was no recreation of the pre-operative symptoms. The hand was then once more inspected for any A0 lupe or area of possible constriction. The wound was then irrigated and the skin was closed with a 4-0 Nylon. This was dressed with gauze and a Conform dressing. The patient tolerated the procedure well and was returned to the Same Day Surgery area in a stable condition suffering no known complication.
== END 2021-05-02 08:12 | disposition home or self-care (01) ==
PROVIDERS: PCP Nurse Practitioner Family; Visit Provider Student in an Organized Health Care Education/Training Program
PROC: (CPT 26055; principal; 2021-05-02 07:30)
DX: M65.311 Trigger thumb, right thumb (principal)
CPT/HCPCS: 26055

== ENCOUNTER 2021-05-15 13:16 | Outpatient (REF) | payer MEDICAID, SELFPAY ==
--- NOTE | 2021-05-15 11:20 | PAPFT_PTH ---
PATIENT: Marleni Christianson LOC: [facility] U#:[id number] AGE/SX: 60/F ROOM: RE05/15/[address]: Mikki Maya NP : 1960 BED: DIS: 05/15/2021 SPEC #: [id number] RECD: 05/15/21 13:22 STATUS: [place] #: [id number] LINDA: 05/15/21 11:[address]: Mikki Maya NP DEPT: [facility] Cytology RECD BY: Leslie Younger ENTERED: 05/15/21 13:22 SP TYPE: PAPFT OTHR DR: Kathy Wright Tissues: 1 - CX/ENDOCX FOR PAP SMEARS Procedures: PAP THIN PREP/UVM Screening HPV DNA PROBE Comments: [id number]
== END 2021-05-15 13:17 | disposition home or self-care (01) ==
LOC: LBN 13:16
PROVIDERS: PCP Nurse Practitioner Family; Visit Provider Nurse Practitioner Women's Health
DX: Z12.4 Encounter for screening for malignant neoplasm of cervix (principal); Z11.51 Encounter for screening for human papillomavirus (HPV)
CPT/HCPCS: 88142; 87624

== ENCOUNTER 2021-07-09 17:37 | Outpatient (REF) | payer MEDICAID, SELFPAY ==
[2021-07-09 20:47] LABS: Anion Gap 10.4 mmol/L (3-11); BUN 16 mg/dL (7-18); CO2 25.6 mmol/L (21.0-32.0); CREATININE 1.3 mg/dL (0.55-1.02); Calcium 9.5 mg/dL (8.5-10.1); Chloride 103 mmol/L (98-107); Estimated GFR 41.78 (mL/min/1.73m2); Glucose 137 mg/dL (74-106); Magnesium 1.6 mg/dL (1.8-2.4); Potassium 4.1 mmol/L (3.5-5.1); Sodium 139 mmol/L (136-145)
== END 2021-07-09 17:38 | disposition home or self-care (01) ==
LOC: NCHCN 17:37
PROVIDERS: PCP Nurse Practitioner Family; Visit Provider Nurse Practitioner Family
DX: N18.30 Chronic kidney disease, stage 3 unspecified (principal); Z79.899 Other long term (current) drug therapy
CPT/HCPCS: 80048; 83735

== ENCOUNTER 2021-11-07 10:05 | Outpatient (REF) | payer MEDICAID, SELFPAY ==
[2021-11-07 15:51] LABS: Calculated LDL 110 mg/dL (<100); Cholesterol 195 mg/dL (<200); HDL Cholesterol 46 mg/dL (40-60); Magnesium 1.8 mg/dL (1.8-2.4); Triglyceride 197 mg/dL (<150)
== END 2021-11-07 10:06 | disposition home or self-care (01) ==
LOC: NCHCN 10:05
PROVIDERS: PCP Nurse Practitioner Family; Visit Provider Nurse Practitioner Family
DX: I10 Essential (primary) hypertension (principal); E78.5 Hyperlipidemia, unspecified; J44.9 Chronic obstructive pulmonary disease, unspecified; K21.9 Gastro-esophageal reflux disease without esophagitis; G47.00 Insomnia, unspecified
CPT/HCPCS: 80061; 83735

== ENCOUNTER 2022-01-07 03:00 | Outpatient (CLI) | payer MEDICAID, SELFPAY | END 2022-01-07 03:01 | disposition home or self-care (01) | LOC: LBO 03:00 | PROVIDERS: PCP Nurse Practitioner Family; Visit Provider Student in an Organized Health Care Education/Training Program ==

== ENCOUNTER 2022-03-04 02:10 | Outpatient (CLI) | payer MEDICAID, SELFPAY ==
--- NOTE | 2022-03-04 07:45 | DI.MAMMO_ITS ---
Exam(s) MAMMO SCREENING EXAM: MAMMO SCREENING CLINICAL HISTORY: screening,z12.39. TECHNIQUE: Bilateral full field digital CC and MLO mammographic images were obtained with 3D tomosyn thesis and utilizing computer aided detection (CAD). COMPARISON: Prior mammograms were reviewed, the most recent being August 2020. FINDINGS: There has been no significant change in the appearance and distribution of the fibroglandular tissue. There are no new spiculated masses nor malignant appearing microcalcification groups. There is no significant architectural distortion nor skin thickening-retraction. IMPRESSION: No radiographic evidence of malignancy. BI-RADS Category 1 - Negative Breast Density - Category B - Scattered areas of fibroglandular density Breast density Category C or D implies that the patient has dense breast tissue. Dense breast tissue can make it harder to find cancer on a mammogram. Dense breast tissue is also associated with an incr eased risk of breast cancer. This information about the result of the mammogram report was provided to the patient to raise their awareness. Use this report when you speak with the patient about their risks for breast cancer, which includes their family history. At that time, you may recommend additional screening tests (Ultrasoun d or MRI) as these tests may add significant information. A negative radiographic report should not delay biopsy if a dominant or clinically suspicious mass is present. Up to ten percent of cancers are not identified on mammography. A negative report may reinforce clinical impression. Adenosis and dense breasts may obscure an underlying neoplasm. False positive reports average 6 to 10%. Patient will receive a letter notifying them of these results.
== END 2022-03-04 02:30 ==
PROVIDERS: PCP Nurse Practitioner Family; Visit Provider Nurse Practitioner Women's Health
DX: Z12.31 Encounter for screening mammogram for malignant neoplasm of breast (principal)
CPT/HCPCS: 77063; 77067

== ENCOUNTER 2022-05-06 15:31 | Outpatient (REF) | payer MEDICAID, SELFPAY ==
[2022-05-06 16:23] LABS: Anion Gap 12.1 mmol/L (3-11); BUN 15 mg/dL (7-18); CO2 23.9 mmol/L (21.0-32.0); CREATININE 1.3 mg/dL (0.55-1.02); Calcium 9.1 mg/dL (8.5-10.1); Chloride 103 mmol/L (98-107); Estimated GFR 41.64 (mL/min/1.73m2); FREE T4 1.22 ng/dL (0.76-1.46); Glucose 131 mg/dL (74-106); Magnesium 1.6 mg/dL (1.8-2.4); Potassium 4.4 mmol/L (3.5-5.1); Sodium 139 mmol/L (136-145); TSH 0.42 uIU/mL (0.36-3.74)
== END 2022-05-06 15:32 | disposition home or self-care (01) ==
LOC: NCHCN 15:31
PROVIDERS: PCP Nurse Practitioner Family; Visit Provider Nurse Practitioner Family
DX: N25.81 Secondary hyperparathyroidism of renal origin (principal); E61.2 Magnesium deficiency; E78.5 Hyperlipidemia, unspecified; E03.9 Hypothyroidism, unspecified; R73.09 Other abnormal glucose
CPT/HCPCS: 80048; 83036; 83735; 84439; 84443

== ENCOUNTER → 2022-05-28 02:05 | Outpatient (CLI) | payer MEDICAID, SELFPAY ==
--- NOTE | 2022-05-28 11:08 | DI.RAD_ITS ---
Exam(s) XR KNEE LT 3V AP,LAT,JORDAN EXAM: XR KNEE LT 3V AP,LAT,JORDAN CLINICAL HISTORY: LT KNEE PAIN, M25.562. TECHNIQUE: 2D digital imaging was performed of the left knee. Three images were obtained. AP, late ral and PA tunnel views were obtained. COMPARISON: No previous for comparison. FINDINGS: BONES: No acute fracture is present. No bony destructive lesion is seen. JOINTS: The knee is normally aligned. No joint effusion is seen. SOFT TISSUE: Normal. IMPRESSION: Normal radiographs of the left knee. DATA REPOSITORY: RADIATION DOSE DELIVERED:
== END ==
PROVIDERS: PCP Nurse Practitioner Family; Visit Provider Nurse Practitioner Family
DX: M25.562 Pain in left knee (principal)
CPT/HCPCS: 73562

== ENCOUNTER 2022-05-29 15:21 | Outpatient (REF) | payer MEDICAID, SELFPAY ==
[2022-05-29 17:13] LABS: Glucose 158 mg/dL (74-106)
== END 2022-05-29 15:22 | disposition home or self-care (01) ==
LOC: NCHCN 15:21
PROVIDERS: PCP Nurse Practitioner Family; Visit Provider Nurse Practitioner Family
DX: E11.9 Type 2 diabetes mellitus without complications (principal); N39.0 Urinary tract infection, site not specified
CPT/HCPCS: 82947; 87077; 87086; 87186

== ENCOUNTER 2022-07-10 18:41 | Outpatient (REF) | payer MEDICAID, SELFPAY ==
[2022-07-10 17:29] LABS: BUN 16 mg/dL (7-18); CREATININE 1.5 mg/dL (0.55-1.02); Calcium 9.3 mg/dL (8.5-10.1); Calculated LDL 107 mg/dL (<100); Chloride 105 mmol/L (98-107); Cholesterol 202 mg/dL (<200); Glucose 135 mg/dL (74-106); HDL Cholesterol 50 mg/dL (40-60); Potassium 4.5 mmol/L (3.5-5.1); Sodium 140 mmol/L (136-145); Triglyceride 226 mg/dL (<150)
== END 2022-07-10 18:42 | disposition home or self-care (01) ==
LOC: NCHCN 18:41
PROVIDERS: PCP Nurse Practitioner Family; Visit Provider Nurse Practitioner Family
DX: E78.5 Hyperlipidemia, unspecified (principal); E11.9 Type 2 diabetes mellitus without complications; I10 Essential (primary) hypertension
CPT/HCPCS: 80048; 80061

== ENCOUNTER 2022-07-25 03:43 | Outpatient (CLI) | payer MEDICAID, SELFPAY ==
[2022-07-25] MEDS: Albuterol HFA 18 GM 200 PUFF INH IH (14:35)
[2022-07-25] MEDS: Inhaler, Assist Device 1 EACH MC (14:36)
--- NOTE | 2022-07-28 11:58 | W.PFT ---
Date of service: 07/25/22 Time of Service: 13:13 Pulmonary Function Test Result Requesting Provider Miladis Victoria Indications: Preoperative clearance for colonoscopy Interpretation Spirometry: There is no airflow limitation. There is no significant bronchodilator response. Lung Volumes: Lung volumes are normal. Diffusion Capacity: The diffusion is reduced. Airway Pressure: Normal airways resistance. Impression No airflow obstruction but there is a reduced diffusion. Note: The diffusion has slightly decreased when compared to 2010 when when accounting for aging. Clinical Correlation therefore is recommended.
== END 2022-07-25 03:44 | disposition home or self-care (01) ==
LOC: RT 03:43
PROVIDERS: PCP Nurse Practitioner Family; Visit Provider Surgery
DX: R06.09 Other forms of dyspnea; R06.02 Shortness of breath; J44.9 Chronic obstructive pulmonary disease, unspecified
CPT/HCPCS: 94060; 94726; 94729

== ENCOUNTER → 2022-07-29 02:34 | Outpatient (CLI) | payer MEDICAID, SELFPAY ==
--- NOTE | 2022-07-29 | DI.RAD_ITS ---
Exam(s) XR LUMBAR SPINE COMPLETE EXAM: XR LUMBAR SPINE COMPLETE CLINICAL HISTORY: CHRONIC LOW BACK PAIN M54.59 HX L1 COMPRESSION FX, WORSENING PAIN. TECHNIQUE: 2D digital imaging was performed of the lumbar spine. Five images were obtained. AP, la teral, right oblique, left oblique and L5-S1 spot views were obtained. COMPARISON: CR XR lumbar spine complete from 04/03/2019 MR MR LUMBAR SPINE WO from 10/17/2020 FINDINGS: BONES: No acute fracture or destructive lesion. There is a stable L1 compression fracture deformity. Small osteophytes are seen at the endplates at several vertebral bodies. Degenerative facet diseas e is seen at L5-S1. DISKS: There is disc space narrowing at T12-L1. ALIGNMENT: Lumbar spinal alignment is within normal limits. No spondylolysis or spondylolisthesis. SOFT TISSUE: Atherosclerosis is present. IMPRESSION: 1. Mild degenerative changes seen in the lumbar spine. 2. Stable old L1 compression fracture deformity. DATA REPOSITORY: RADIATION DOSE DELIVERED:
== END ==
PROVIDERS: PCP Nurse Practitioner Family; Visit Provider Nurse Practitioner Family
DX: M54.59 Other low back pain (principal); G89.29 Other chronic pain; M51.37 Other intervertebral disc degeneration, lumbosacral region; M48.56XD Collapsed vertebra, not elsewhere classified, lumbar region, subsequent encounter for fracture with routine healing
CPT/HCPCS: 72110

== ENCOUNTER 2022-08-02 05:55 | Day surgery (SDC) | payer MEDICAID, SELFPAY ==
--- NOTE | 2022-08-01 22:50 | COLE_ITS ---
Colonoscopy Report Pre-op diagnosis general: CRC screen Post-op diagnosis procedure note: other (polyps/ext hemorrhoids/prolaps e/pilonidial/scarring ) Surgeon: Miladis Victoria Anesthesia Type: Local By Surgeon Estimated blood loss (mL): 1 Prep: Miralax/Dulcolax Procedure Description: After informed consent was obtained the patient was taken to the procedure room and placed in a left decubitous position. Monitors were applied and a time out was done. The patients name, date of , procedure, allergies to medications and metal in their body was reviewed. The patient was then sedated. Once sedated and comfortable a rectal exam was done. External exam: Minor external hemorrhoids. She is starting to develop mucosal prolapse. Patient denied any prior history of colorectal surgery. She has 2 large scars 1 at the 6 o'clock position and one at the 7 o'clock position that are hypertrophic. She also has a pilonidal cyst, no infection or abscess. Internal exam revealed a normal sph incter tone and no palpable masses. The scope was then introduced and retrofelexed. No internal hemorrhoids were identified. The scope was then advanced to the cecum without difficulty. The TI and appendiceal orifice were identified. The prep was BB PS 3 in all segments for a total of 9. The scope was then slowly retracted over 10 minutes back into the rectum. She has a 0.75 pedunculated polyp at 40 cm. This is removed with a cold forcep. All specimen is retrieved and no bleeding is noted. A clip is placed across the defect. The mucosa appears pale and almost has a cobblestoning appearance to it. Random biopsies are taken at 70 and 20 cm. There are no diverticula. Patient tolerated procedure well.. The scope was removed and the patient was woken up and taken back to Same day surgery in stable condition. The patient tolerated the procedure well and there were no immediate complications. Follow up: The patient should follow up in 7 years unless they develop changes in bowel habits or other new gastrointestinal complaints.
--- NOTE | 2022-08-01 22:51 | PDOC.DSDIS_ITS ---
Discharge Plan Disposition Patient Disposition: HOME Condition: Good Discharge Details Reason For Visit: colon cancer screening Attending Provider: Miladis Victoria Primary Care Provider: Kathy Wright Home Meds and New Rx's Prescriptions: Continued clonazepam [Klonopin] 0.5 mg tablet 1 mg PO BID PRN cholecalciferol (vitamin D3) 25 mcg (1,000 unit) capsule 25 mcg PO DAILY Jardiance 10 mg tablet 10 mg PO DAILY omeprazole [Prilosec] 20 MG capsule,delayed release(DR/EC) 20 mg PO DAILY albuterol sulfate [ProAir HFA] 8.5 GM HFA aerosol inhaler 2 puff Inhalation Q4H PRN metoprolol tartrate 50 MG tablet 50 mg PO BID fluticasone propionate [Flovent HFA] 12 GM HFA aerosol inhaler 110 mcg Inhalation BID Qty: 1 0RF levalbuterol tartrate [Xopenex HFA] 15 GM HFA aerosol inhaler 2 inh Inhalation Q4H PRN PRNQty: 0 0RF Label Comments: 08/03/15- Pt states she has not used in about a week. KL lisinopril 10 mg tablet 10 mg PO DAILY Label Comments: TAKE ONE TABLET BY MOUTH EVERY DAY amitriptyline 100 mg tablet 100 mg PO DAILY Label Comments: TAKE ONE TABLET BY MOUTH AT BEDTIME magnesium oxide 250 mg magnesium tablet 250 mg PO DAILY Label Comments: TAKE ONE TABLET BY MOUTH EVERY DAY cholecalciferol (vitamin D3) 25 mcg (1,000 unit) tablet 1,000 unit PO DAILY Label Comments: TAKE ONE TABLET BY MOUTH EVERY DAY melatonin 5 mg tablet 5 mg PO DAILY Label Comments: TAKE ONE TABLET BY MOUTH EVERY EVENING NEEDED ONE HOUR PRIOR TO BED levothyroxine 100 MCG tablet 112 mcg PO DAILY acetaminophen 500 mg capsule 1,000 mg PO Q8H PRN PRNQty: 90 0RF ibuprofen 600 mg tablet 600 mg PO TID PRN (Reason: pain) Qty: 30 0RF gabapentin 100 mg capsule 200 mg PO BID Label Comments: TAKE TWO CAPSULES BY MOUTH EVERY MORNING AND five IN THE EVENING Rx Instructions: 200mg am 500mg PM Discontinued polyethylene glycol 3350 17 gram/dose powder 238 g PO ONCE Qty: 238 0RF Rx Instructions: take per colonoscopy instructions bisacodyl [Dulcolax (bisacodyl)] 5 mg tablet,delayed release (DR/EC) 5 mg PO ONCE Qty: 4 0RF Rx Instructions: take per colonoscopy instructions Discharge Instructions Instructions: Rectal Prolapse (GEN) Additional Instructions: DSU Colonoscopy Post- Op Instructions Instructions for Everyone who is given Anesthesia: For your safety, please do the following for the next twenty-four (24) hours: *Do Not operate a motor vehicle (car, truck, motorcycle, etc.) *Do Not drink alcoholic beverages or use any recreational drugs for the first 24 hours or while taking pain medications. The medications in your body may have a reaction that can be dangerous. *Do Not make any important decisions or sign any important papers. Findings: polyp prolapse-make sure you are moving your bowels on a regular basis and not straining to go to the bathroom. I recommend he start a fiber product, such as Metamucil daily. -Significant scarring and early rectal prolapse, see handout. Follow up: My office will send a letter in 2 to 3 weeks time, detailing as to what type of polyp it was and when we want you to repeat colonoscopy. 1. No lifting over 20 pounds or strenuous activity for the first 24 hours after your procedure. After 24 hours there are no restrictions on your activity but you may feel fatigued for a few days. 2. After you arrive home you may have a light meal and return to your normal diet as you can tolerate it without feeling sick to your stomach. 3. You may have a bloated, gaseous feeling in your belly (abdomen) after a colonoscopy. Passing gas and belching will help. Walking or lying down on your left side with your knees flexed may relieve the discomfort. Call the office at [phone] (Office) or [phone] (Hospital) right away if you notice any of the following: a.Vomiting of blood or ?coffee ground stools?. b.Rectal bleeding 1Tbsp, blood clots or continuous bleeding. c.Severe belly (abdominal) pain. d.A hard distended belly (abdomen) and an inability to pass gas. 4. Please don?t expect to have a normal BM (bowel movement) for 2-3 days after your procedure. 5. If there are questions regarding the findings of your procedure, please contact your doctor 6. If you are unable to contact your doctor with a problem, contact the hospital at [phone]. 7. Continue all your regular medications unless directed otherwise. I understand the above instructions and have no questions. Signature of Patient or Adult Escort Name of Responsible Adult Escort Signature of Nurse Date/Time Activity:: see aove Diet:: see above Discharge Orders Discharge Orders: Discharge Order (Routine); Ordered 08/01/22 Ordered By: Miladis Victoria
[2022-08-02 06:24] VITALS: BP 140/86; PULSE 93; RESP 16; TEMP 36.6; O2SAT 97
[2022-08-02] MEDS: Lactated Ringers 1,000 ML 80 ML IV (06:49)
--- NOTE | 2022-08-02 07:12 | W.ANESPRE ---
General Info Date of Service Date Performed: 08/02/22 Height: 5 ft Weight: 71.5 kg Body Mass Index (BMI): 30.7 Surgical Procedure: Operation Date: 08/02/22 07:35 Proposed Procedure Side Surgeon victorino Victoria, Meds Allergies and Home Medications Allergies Allergy/AdvReac Type Severity Reaction Status Date / Time prochlorperazine edisylate Allergy Severe Psychosis Verified 08/02/22 06:24 [From Compazine] prochlorperazine maleate Allergy Severe Psychosis Verified 08/02/22 06:24 [From Compazine] gluten Allergy Verified 08/02/22 06:24 combid Allergy Severe Psychosis Uncoded 08/02/22 06:24 Home Medication Medication Instructions Recorded omeprazole 20 mg capsule,delayed 20 mg PO DAILY 02/10/13 release (Prilosec) albuterol sulfate 90 mcg/actuation 2 puff inhalation Q4H PRN 07/25/15 aerosol inhaler (ProAir HFA) metoprolol tartrate 50 mg tablet 50 mg PO BID 12/18/17 fluticasone propionate 110 110 mcg inhalation BID ##1 12/24/17 mcg/actuation HFA aerosol inhaler (Flovent HFA) levalbuterol tartrate 45 2 inh inhalation Q4H PRN PRN ##0 12/24/17 mcg/actuation aerosol inhaler (Xopenex HFA) clonazepam 0.5 mg tablet (Klonopin) 1 mg PO BID PRN 03/29/21 acetaminophen 500 mg capsule 1,000 mg PO Q8H PRN PRN #90 caps 05/02/21 amitriptyline 100 mg tablet 100 mg PO DAILY 05/02/21 cholecalciferol (vitamin D3) 25 1,000 unit PO DAILY 05/02/21 mcg (1,000 unit) tablet ibuprofen 600 mg tablet 600 mg PO TID PRN pain #30 tabs 05/02/21 levothyroxine 100 mcg tablet 112 mcg PO DAILY 05/02/21 lisinopril 10 mg tablet 10 mg PO DAILY 05/02/21 magnesium oxide 250 mg PO DAILY 05/02/21 melatonin 5 mg tablet 5 mg PO DAILY 05/02/21 cholecalciferol (vitamin D3) 25 25 mcg PO DAILY 07/11/22 mcg (1,000 unit) capsule empagliflozin 10 mg tablet 10 mg PO DAILY 07/11/22 (Jardiance) gabapentin 100 mg capsule 200 mg PO BID 07/11/22 Current Visit Medications: Current Medications Generic Name Dose Route Start Last Admin Trade Name Shy PRN Reason Stop Dose Admin Hyoscyamine Sulfate 0.125 mg 08/01/22 22:48 Hyoscyamine 0.125 Mg Sl/Oral/Chew SL DIRECTED PRN Ringer's Solution 1,000 mls @ 80 mls/hr 08/02/22 06:00 08/02/22 06:49 IV 08/02/22 23:59 80 mls/hr INFUSION NIVIA Administration IV Miscellaneous Supplies 1 each 08/02/22 06:00 Iv Access IV 08/02/22 23:59 DIRECTED NIVIA Ondansetron HCl 4 mg 08/01/22 22:48 Ondansetron 4 Mg/2 Ml Vial IVP Q4H PRN PRN Nausea / Vomiting Sodium Chloride 0 ml 08/02/22 06:00 Normal Saline Flush 10 Ml Syr IV 08/02/22 23:59 PRN PRN Sodium Chloride 0 ml 08/02/22 06:00 Normal Saline 10 Ml Vial IJ 08/02/22 23:59 DIRECTED PRN Sterile Water 0 ml 08/02/22 06:00 Water,Injection,Sterile 10 Ml Vial IJ 08/02/22 23:59 DIRECTED PRN PFSH Active Problems Active Problems: Problem Status Onset Code CELIAC DISEASE IBS Chronic pain 04/12/14 G89.29 GERD (gastroesophageal reflux disease) 04/12/14 K21.9 Dysphagia R13.10 Esophagitis determined by endoscopy K20.9 Gastritis K29.70 Abdominal pain R10.9 Nausea R11.0 Encounter for screening for malignant neoplasm of colon Z12.11 Chronic kidney disease (CKD) stage G3b/A1, moderately decreased glomerular filtration rate (GFR) between 30-44 mL/min/1.73 square meter and albuminuria creatinine ratio less than 30 mg/g N18.32 SOB (shortness of breath) on exertion R06.02 MEHTA (dyspnea on exertion) R06.09 Emphysema lung J43.9 Medical History Medical History ANXIETY STATE NOS Asymptomatic postmenopausal status (age-related) (natural) (03/01/12) Bladder pain (03/05/18) Blood glucose elevated CHRONIC BOWEL DISTURBANCE/CHRONIC CONSTIPATION CHRONIC PAIN SYN Chronic rhinitis Chronic sinusitis of both maxillary sinuses COPD (chronic obstructive pulmonary disease) COUGH Depression (04/12/14) Diabetes Dizziness Dysphagia Elevated LFTs Essential hypertension (04/12/14) FYBROMYALGIA GERD HX TOBACCO USE Hyperlipidemia (04/12/14) Hypertension Hypothyroidism, unspecified (04/25/16) INSOMNIA [place] [facility] [id number] pt states she is in remission Memory loss Peripheral neuropathy Referred otalgia of right ear Reflex sympathetic dystrophy Retention of urine (03/05/18) RSD Tachycardia Trigger middle finger of left hand URINARY INCON. Viral syndrome Surgical History Surgical History Bladder Surgery Sling Procedure awrussell Moreno H/O esophagogastroduodenoscopy (~02/23/19) History of esophagogastroduodenoscopy (EGD) Ligation of fallopian tube Rotator Cuff Repair (~2007) S/P rotator cuff repair Trigger finger of right thumb S/P release: 05/02/2021 Tobacco Smoking/Tobacco Use Status: Current every day Tobacco Type: cigarettes Alcohol Alcohol Intake: never Substance Use Substance use: Rarely Substance use type: marijuana Prental History History 4 Para 2 Hx # Term Pregnancies Multiple births Hx # Pregnancies Ectopic pregnancies AB induced Hx Number of Living Children AB spontaneous Vital Signs and Lab Results Vital Signs Most Recent Vital Signs in EMR: Most Recent Vital Signs Temp Pulse Resp BP Pulse Ox 36.6 C 93 H 16 140/86 97 08/02/22 06:24 08/02/22 06:24 08/02/22 06:24 08/02/22 06:24 08/02/22 06:24 Point of Care Results Point of Care Results: Finger Stick Blood Glucose 146 08/02/22 06:43 Lab Results Blood Type / Crossmatch: No Data to Display Complete Blood Count: No Data to Display Complete Metabolic Panel: Sodium Level 140 mmol/L (136-145) 07/10/22 12:45 Potassium Level 4.5 mmol/L (3.5-5.1) 07/10/22 12:45 Chloride Level 105 mmol/L (98-107) 07/10/22 12:45 Carbon Dioxide Level 25.0 mmol/L (21.0-32.0) 07/10/22 12:45 Blood Urea Nitrogen 16 mg/dL (7-18) 07/10/22 12:45 Creatinine 1.5 mg/dL (0.55-1.02) H 07/10/22 12:45 Estimated GFR/1.73 m2 35.30 (mL/min/1.73m2) 07/10/22 12:45 Calcium Level 9.3 mg/dL (8.5-10.1) 07/10/22 12:45 Glucose Level 135 mg/dL (74-106) H 07/10/22 12:45 Liver Function Panel: No Data to Display Coagulation Panel: No Data to Display Cardiac Panel: No Data to Display Arterial Blood Gas: No Data to Display Venous Blood Gas: No Data to Display Pancreas Panel: No Data to Display Thyroid Panel: No Data to Display Infectious Disease: No Data to Display Blood Cultures: No Data to Display Toxicology Panel: No Data to Display Imaging and Studies Imaging and Studies Study information below may be from another EMR and interpreted by another provider. Please see original notes in EMR for more complete details. Echocardiogram Summary: Date of Exam: 04/06/20ex: F Admission Date: 04/06/20 : 1960 Age: 59 Exam(s) a US:US echocardiogram APPROVED REPORT EXAM: Comprehensive 2D, Doppler, and color-flow Echocardiogram Patient Location: Out-Patient Mold Filling Operator: Binta Mcmillan RDCS (AE) Indications: Lung Cancer, s/p Chemo, SOB Other Information Study Quality: Good Conclusion Normal left ventricular wall thickness and chamber size. Estimated ejection fraction is 55 to 60%. There are no segmental wall motion abnormalities. There is no chamber enlargement Aortic valve leaflets are mildly thickened. There is trace aortic regurgitation The mitral, tricuspid, and pulmonic valves are structurally normal. There is mild mitral regurgitation. There is trace tricuspid and pulmonic regurgitation RVSP could not be estimated Pulmonary Function Summary: Date of service: 07/25/22 Time of Service: 13:13 Pulmonary Function Test Result Requesting Provider Miladis Victoria Indications: Preoperative clearance for colonoscopy Interpretation Spirometry: There is no airflow limitation. There is no significant bronchodilator response. Lung Volumes: Lung volumes are normal. Diffusion Capacity: The diffusion is reduced. Airway Pressure: Normal airways resistance. Impression No airflow obstruction but there is a reduced diffusion. Note: The diffusion has slightly decreased when compared to 2011 when when accounting for aging. Clinical Correlation therefore is recommended. Anesthesia Assessment and Plan Anesthesia History Personal History: No History of Anesthesia Complications Family History: No Family History of Anesthesia Complications Exercise Tolerance Exercise Tolerance: Metabolic Equivalents>4 Pertinent Negatives Pertinent Negatives: No Symptoms of GERD and No Major Cardiovascular Symptoms or Complaints Cardiac & Pulmonary Exam Cardiac Exam: Normal S1/S2 Heart Sounds Pulmonary Exam: Clear Bilateral Breath Sounds Implantable Cardiac Device Does patient have a Pacemaker or an ICD?: No Airway Exam Known Difficult Airway: No Mallampati Class: 1 Mouth Opening: Normal (> 3cm) Thyromental Distance: Greater than 3 cm Neck Range of Motion: Full ROM Neck Circumference: Normal Teeth Condition: Normal Dentition and Removable Dentures/Plates Upper ASA Classification ASA Score: ASA 3 Emergency Case?: No NPO Status NPO Status: NPO Clears >2 hours, Solids >8 hours Anesthesia Plan Resuscitation Status: Full Code Anesthesia Technique: General Anesthesia Airway Planned: Natural Airway Monitors Used: Standard Monitors
[2022-08-02 07:23] VITALS: BMI 30.7
--- NOTE | 2022-08-02 07:47 | BOWEL_PTH ---
PATIENT: Marleni Christianson LOC: [facility] U#:[id number] AGE/SX: 61/F ROOM: RE08/02/[address]: Miladis Victoria : 1960 BED: DIS: 08/02/2022 SPEC #: [id number] RECD: 08/02/22 12:46 STATUS: [facility] #: [id number] LINDA: 08/02/22 07:[address]: Miladis Victoria DEPT: Surgical Specimen RECD BY: Leslie Younger ENTERED: 08/02/22 12:46 SP TYPE: Bowel OTHR DR: Kathy Wright Tissues: 1 - BIOPSY BOWEL 2 - BIOPSY BOWEL 3 - BIOPSY BOWEL Procedures: GROSS AND MICRO LEVEL 4 Comments: [id number]
[2022-08-02 08:02] VITALS: BP 116/86; PULSE 96; RESP 14; TEMP 36.1; O2SAT 95
--- NOTE | 2022-08-02 08:28 | W.ANESPOSTOP ---
Postoperative Evaluation Date, Time and Location Date Performed: 08/02/22 Time Performed: 08:15 Patient Location: Day Surgery Unit Vital Signs Most Recent Imported Vital Signs: Most Recent Vital Signs Temp Pulse Resp BP Pulse Ox 36.1 C L 96 H 14 116/86 95 08/02/22 08:02 08/02/22 08:02 08/02/22 08:02 08/02/22 08:02 08/02/22 08:02 Pain Score Most Recent Pain Score: Most Recent Pain Score Pain Level 0 08/02/22 08:02 Assessment Mental Status: Awake (Alert & Oriented to Patient Baseline) Airway and Respiratory Function: Patent airway with normal (patient baseline) respiratory exam Cardiovascular Function: Hemodynamically Stable Hydration Status: Adequately Hydrated Nausea & Vomiting: No Nausea or Vomiting Pain: Pt. Denies Any Pain Peripheral Nerve Block: Patient did not receive a nerve block
[2022-08-02 08:30] VITALS: BP 93/75; PULSE 93; RESP 16; TEMP 36.5; O2SAT 96
== END 2022-08-02 09:03 | disposition home or self-care (01) ==
LOC: SUR 05:55
PROVIDERS: PCP Nurse Practitioner Family; Visit Provider Surgery
PROC: 0DJD8ZZ Inspection of Lower Intestinal Tract, Via Natural or Artificial Opening Endoscopic (ICD-10-PCS; CPT 45378; principal; 2022-08-02 07:30)
DX: Z12.11 Encounter for screening for malignant neoplasm of colon (principal); K63.5 Polyp of colon; K64.4 Residual hemorrhoidal skin tags; K63.89 Other specified diseases of intestine; K90.0 Celiac disease; E11.9 Type 2 diabetes mellitus without complications
CPT/HCPCS: 45380; 88305

== ENCOUNTER 2022-10-02 17:44 | Outpatient (REF) | payer MEDICAID, SELFPAY ==
[2022-10-02 16:34] LABS: ALT 47 U/L (14-59); AST 33 U/L (15-37); Anion Gap 11.6 mmol/L (3-11); BUN 13 mg/dL (7-18); CO2 25.4 mmol/L (21.0-32.0); CREATININE 1.6 mg/dL (0.55-1.02); Calcium 9.8 mg/dL (8.5-10.1); Chloride 102 mmol/L (98-107); Estimated GFR 36.24 (mL/min/1.73m2); Glucose 143 mg/dL (74-106); HDL Cholesterol 55 mg/dL (40-60); LDL CHOLESTEROL 134 mg/dL (<100); Potassium 4.2 mmol/L (3.5-5.1); Sodium 139 mmol/L (136-145); TSH 52.87 uIU/mL (0.36-3.74)
[2022-10-02 16:55] LABS: Creatine Kinase 61 U/L (26-192); FREE T4 0.56 ng/dL (0.76-1.46)
== END 2022-10-02 17:45 | disposition home or self-care (01) ==
LOC: NCHCN 17:44
PROVIDERS: PCP Nurse Practitioner Family; Visit Provider Nurse Practitioner Family
DX: E11.9 Type 2 diabetes mellitus without complications (principal); I10 Essential (primary) hypertension; E78.5 Hyperlipidemia, unspecified; E03.9 Hypothyroidism, unspecified
CPT/HCPCS: 80048; 82550; 83721; 83036; 83718; 84439; 84443; 84450; 84460

== ENCOUNTER 2022-12-16 12:09 | Outpatient (REF) | payer MEDICAID, SELFPAY ==
[2022-12-16 16:39] LABS: ALT 47 U/L (14-59); AST 38 U/L (15-37); HDL Cholesterol 62 mg/dL (40-60); LDL CHOLESTEROL 79 mg/dL (<100); TSH 0.23 uIU/mL (0.36-3.74)
[2022-12-16 16:58] LABS: Creatine Kinase 49 U/L (26-192); FREE T4 1.29 ng/dL (0.76-1.46)
[2022-12-17 19:02] LABS: Estimated Average Glucose 151 mg/dL; Hemoglobin A1C 6.9 % (<5.7)
== END 2022-12-16 12:10 | disposition home or self-care (01) ==
LOC: NCHCN 12:09
PROVIDERS: PCP Nurse Practitioner Family; Visit Provider Nurse Practitioner Family
DX: E11.9 Type 2 diabetes mellitus without complications (principal); N25.81 Secondary hyperparathyroidism of renal origin
CPT/HCPCS: 82550; 83721; 83036; 83718; 84439; 84443; 84450; 84460

== ENCOUNTER 2022-12-26 02:28 | Outpatient (CLI) | payer MEDICAID, SELFPAY ==
[2022-12-26 13:41] LABS: Anion Gap 6.1 mmol/L (3-11); BUN 27 mg/dL (7-18); CO2 29.9 mmol/L (21.0-32.0); CREATININE 1.7 mg/dL (0.55-1.02); Calcium 9.9 mg/dL (8.5-10.1); Chloride 102 mmol/L (98-107); Glucose 110 mg/dL (74-106); Potassium 4.8 mmol/L (3.5-5.1); Sodium 138 mmol/L (136-145)
== END 2022-12-26 02:29 | disposition home or self-care (01) ==
LOC: LBO 02:28
PROVIDERS: PCP Nurse Practitioner Family; Visit Provider Nurse Practitioner Family
DX: N28.9 Disorder of kidney and ureter, unspecified (principal)
CPT/HCPCS: 36415; 80048

== ENCOUNTER 2022-12-30 12:22 | Outpatient (REF) | payer MEDICAID, SELFPAY ==
[2022-12-30 16:56] LABS: Anion Gap 7.6 mmol/L (3-11); BUN 17 mg/dL (7-18); CO2 28.4 mmol/L (21.0-32.0); CREATININE 1.6 mg/dL (0.55-1.02); Calcium 9.8 mg/dL (8.5-10.1); Chloride 106 mmol/L (98-107); Estimated GFR 36.24 (mL/min/1.73m2); Glucose 168 mg/dL (74-106); Potassium 4.5 mmol/L (3.5-5.1); Sodium 142 mmol/L (136-145)
== END 2022-12-30 12:23 | disposition home or self-care (01) ==
LOC: NCHCN 12:22
PROVIDERS: PCP Nurse Practitioner Family; Visit Provider Nurse Practitioner Family
DX: I10 Essential (primary) hypertension (principal); N28.9 Disorder of kidney and ureter, unspecified
CPT/HCPCS: 80048

== ENCOUNTER 2023-02-04 03:28 | Outpatient (CLI) | payer MEDICAID, SELFPAY ==
[2023-02-04 11:59] LABS: Anion Gap 10.1 mmol/L (3-11); BUN 21 mg/dL (7-18); CO2 24.9 mmol/L (21.0-32.0); CREATININE 1.7 mg/dL (0.55-1.02); Calcium 9.7 mg/dL (8.5-10.1); Chloride 105 mmol/L (98-107); FREE T4 1.12 ng/dL (0.76-1.46); Glucose 182 mg/dL (74-106); Potassium 4.7 mmol/L (3.5-5.1); Sodium 140 mmol/L (136-145); TSH 0.48 uIU/mL (0.36-3.74)
[2023-02-04 12:20] LABS: COMMENT (LAB VIEW ONLY) 65.59 mg/dL; Microalb ug/mg Crea 22.4 ug/mg Cr
[2023-02-04 17:21] LABS: Ionized Calcium 1.14 mmol/L (1.14-1.35)
== END 2023-02-04 03:29 | disposition home or self-care (01) ==
LOC: LBO 03:28
PROVIDERS: Student in an Organized Health Care Education/Training Program; PCP Nurse Practitioner Family; Visit Provider Nurse Practitioner Family
DX: E11.22 Type 2 diabetes mellitus with diabetic chronic kidney disease (principal); N18.9 Chronic kidney disease, unspecified; N28.9 Disorder of kidney and ureter, unspecified; N25.81 Secondary hyperparathyroidism of renal origin
CPT/HCPCS: 36415; 80048; 82043; 82330; 82570; 84439; 84443

== ENCOUNTER 2023-03-06 02:27 | Outpatient (CLI) | payer MEDICAID, SELFPAY ==
--- NOTE | 2023-03-06 | DI.MAMMO_ITS ---
Exam(s) MAMMO SCREENING EXAM: MAMMO SCREENING CLINICAL HISTORY: SCREENING, Z12.39. TECHNIQUE: Bilateral full field digital CC and MLO mammographic images were obtained with 3D tomosyn thesis and utilizing computer aided detection (CAD). COMPARISON: Prior mammograms were reviewed. FINDINGS: There has been no significant change in the appearance and distribution of the fibroglandular tissue. Asymmetric tissue in the left breast is unchanged from all prior studies. There are no new spiculated masses nor malignant appearing microcalcification groups. There is no significant architectural distortion nor skin thickening-retraction. IMPRESSION: No radiographic evidence of malignancy. BI-RADS Category 1 - Negative Breast Density - Category B - Scattered areas of fibroglandular density Breast density Category C or D implies that the patient has dense breast tissue. Dense breast tissue can make it harder to find cancer on a mammogram. Dense breast tissue is also associated with an incr eased risk of breast cancer. This information about the result of the mammogram report was provided to the patient to raise their awareness. Use this report when you speak with the patient about their risks for breast cancer, which includes their family history. At that time, you may recommend additional screening tests (Ultrasoun d or MRI) as these tests may add significant information. A negative radiographic report should not delay biopsy if a dominant or clinically suspicious mass is present. Up to ten percent of cancers are not identified on mammography. A negative report may reinforce clinical impression. Adenosis and dense breasts may obscure an underlying neoplasm. False positive reports average 6 to 10%. Patient will receive a letter notifying them of these results.
== END 2023-03-06 02:47 ==
LOC: DI 02:27
PROVIDERS: PCP Nurse Practitioner Family; Visit Provider Nurse Practitioner Family
DX: Z12.31 Encounter for screening mammogram for malignant neoplasm of breast (principal)
CPT/HCPCS: 77063; 77067

== ENCOUNTER 2023-03-19 11:54 | Outpatient (REF) | payer MEDICAID, SELFPAY ==
[2023-03-19 16:17] LABS: Hemoglobin A1C 7.5 % (<5.7)
[2023-03-19 16:30] LABS: TSH (W/Ref FT4) 0.39 uIU/mL (0.36-3.74)
== END 2023-03-19 11:55 | disposition home or self-care (01) ==
LOC: NCHCN 11:54
PROVIDERS: PCP Nurse Practitioner Family; Visit Provider Nurse Practitioner Family
DX: E11.9 Type 2 diabetes mellitus without complications (principal); E03.9 Hypothyroidism, unspecified
CPT/HCPCS: 83036; 84443

== ENCOUNTER 2023-06-17 11:35 | Outpatient (REF) | payer MEDICAID, SELFPAY ==
[2023-06-17 16:32] LABS: ALT 29 U/L (14-59); AST 25 U/L (15-37); Albumin 3.8 g/dL (3.4-5.0); Alkaline Phosphatase 131 U/L (46-116); Anion Gap 8.8 mmol/L (3-11); BUN 17 mg/dL (7-18); Bilirubin, Total 0.4 mg/dL (0.2-1.0); CO2 26.2 mmol/L (21.0-32.0); CREATININE 1.9 mg/dL (0.55-1.02); Calcium 9.4 mg/dL (8.5-10.1); Chloride 104 mmol/L (98-107); Estimated GFR 29.49 (mL/min/1.73m2); FREE T4 0.56 ng/dL (0.76-1.46); Glucose 144 mg/dL (74-106); Potassium 4.7 mmol/L (3.5-5.1); Sodium 139 mmol/L (136-145); TSH 41.26 uIU/mL (0.36-3.74); Total Protein 7.6 g/dL (6.4-8.2)
[2023-06-17 16:38] LABS: Hemoglobin A1C 6.8 % (<5.7)
== END 2023-06-17 11:36 | disposition home or self-care (01) ==
LOC: NCHCN 11:35
PROVIDERS: PCP Nurse Practitioner Family; Visit Provider Nurse Practitioner Family
DX: E11.9 Type 2 diabetes mellitus without complications (principal); N25.81 Secondary hyperparathyroidism of renal origin; I10 Essential (primary) hypertension
CPT/HCPCS: 80053; 83036; 84439; 84443

== ENCOUNTER → 2023-07-18 01:47 | Outpatient (CLI) | payer MEDICAID, SELFPAY ==
--- NOTE | 2023-07-18 13:00 | DI.MRI_ITS ---
Exam(s) MR LUMBAR SPINE WO EXAM: MR LUMBAR SPINE WO CLINICAL HISTORY: LUMBAR BACK PAIN, M54.50. TECHNIQUE: Multiplanar multisequence MRI of the Lumbar spine was performed. COMPARISON: CT CT ABDOMEN PELVIS WO from 04/06/2020 MR MR LUMBAR SPINE WO from 10/17/2020 CR XR LUMBAR SPINE COMPLETE from 07/29/2022 FINDINGS: There is transitional anatomy with sacralization of the L5 segment as seen on plain films of July 02. There is a stable compression fracture of what was previously as L1 vertebral body but is actually th e T12 vertebral body. This is the lowest rib-bearing vertebral body. It is not further decreased in height and does not exhibit abnormal edema signal. There are no new fractures evident. At this lev el there is posterior bulging of the posterosuperior cortex of the fractured vertebra with mild impre ssion upon the thecal sac but not the spinal cord. Conus medullaris is at normal level. There is no evidence of conus mass nor subjacent clumping of in trathecal nerve roots to suggest arachnoiditis. The distal thecal sac appears unremarkable.There is no evidence of Tarlov intrasacral cysts nor other significant findings within the sacral canal Bones:There are no acute fractures nor ominous osseous lesions in the lumbar vertebral bodies and vis ualized sacrum. With respect to the individual levels... T11-12: No disc herniation or canal stenosis. No foraminal stenosis. T12-L1: No disc herniation nor central canal stenosis. No foraminal stenosis. No significant facet arthropathy. L1-2: Normal disc height and signal. No disc herniation nor central canal stenosis.No foraminal steno sis L2-3: Normal disc height. No disc herniation nor central canal stenosis.No foraminal stenosis.No face t arthropathy. L3-4: Normal disc height. No disc herniation or central canal stenosis.No foraminal stenosis.No face t arthropathy. L4-5: Normal disc height and signal. No disc herniation or central canal stenosis. No foraminal wendy nosis no significant facet arthropathy. L5-S1: Rudimentary disc space due to the sacralized L5 segment here. There is no disc herniation or canal stenosis at this level. No foraminal stenosis. Soft tissues: The right kidney is noted to be atrophic. This was also evident on abdominal CT scan of March 2020. IMPRESSION: 1. There is no evidence of disc herniation, central canal stenosis, nor foraminal stenosis. 2. There is a stable appearing compression fracture of what has previously been called L1 vertebral b ronaldo but is actually T12 and rib-bearing. There is transitional anatomy here with sacralization of th e L5 segment. At the level the compression fracture there is mild posterior cortex bulging but no ti ght central spinal canal stenosis. Also no foraminal stenosis and no evidence of disc herniation at this level nor elsewhere in the lumbosacral spinal column. 3. There is no significant facet arthropathy nor malalignment. DATA REPOSITORY:
== END ==
PROVIDERS: PCP Nurse Practitioner Family; Visit Provider Nurse Practitioner Family
DX: M54.50 Low back pain, unspecified (principal)
CPT/HCPCS: 72148

== ENCOUNTER 2023-09-02 15:06 | Outpatient (REF) | payer MEDICAID, SELFPAY ==
[2023-09-02 20:05] LABS: FREE T4 1.34 ng/dL (0.76-1.46); TSH 0.81 uIU/mL (0.36-3.74)
[2023-09-02 22:12] LABS: Hemoglobin A1C 7.7 % (<5.7)
== END 2023-09-02 15:07 | disposition home or self-care (01) ==
LOC: NCHCN 15:06
PROVIDERS: PCP Nurse Practitioner Family; Visit Provider Nurse Practitioner Family
DX: E03.9 Hypothyroidism, unspecified (principal); E11.9 Type 2 diabetes mellitus without complications
CPT/HCPCS: 83036; 84439; 84443

== ENCOUNTER → 2023-09-09 00:49 | Outpatient (CLI) | payer MEDICAID, SELFPAY ==
--- NOTE | 2023-09-09 | DI.US_ITS ---
Exam(s) US RENAL EXAM: US RENAL CLINICAL HISTORY: RENAL INSUFFICIENCY N28.9 ATROPHIC KIDNEY N26.1 URINARY RETENTION R33.9. TECHNIQUE: Alcantara scale, color and spectral Doppler were used. COMPARISON: CT CT ABDOMEN PELVIS WO from 04/06/2020 US US RENAL from 09/28/2020 FINDINGS: Renal size in cm: Right: 6.8. Left: 10.4. Echogenicity: Normal. Hydronephrosis: No. Cyst or mass: No. Nephrolithiasis: No. Other findings: None. Bladder:Normal. Ureteral jets: Right: Visualized and unremarkable. Left: Visualized and unremarkable. Prevoid vol:317 cc Postvoid vol:56 cc Renal color flow: Symmetric and within normal limits. IMPRESSION: 1. Stable right renal atrophy. 2. Small postvoid urinary bladder volume. 3. Unremarkable left kidney. DATA REPOSITORY:
== END ==
PROVIDERS: PCP Nurse Practitioner Family; Visit Provider Nurse Practitioner Family
DX: N26.1 Atrophy of kidney (terminal); R33.9 Retention of urine, unspecified
CPT/HCPCS: 76770

== ENCOUNTER 2023-11-18 19:23 | Outpatient (REF) | payer MEDICAID, SELFPAY ==
[2023-11-18 15:44] LABS: Anion Gap 8.6 mmol/L (3-11); BUN 17 mg/dL (7-18); CO2 26.4 mmol/L (21.0-32.0); CREATININE 1.5 mg/dL (0.55-1.02); Calcium 9.9 mg/dL (8.5-10.1); Chloride 104 mmol/L (98-107); Estimated GFR 38.91 (mL/min/1.73m2); Glucose 140 mg/dL (74-106); Potassium 4.3 mmol/L (3.5-5.1); Sodium 139 mmol/L (136-145)
== END 2023-11-18 19:24 | disposition home or self-care (01) ==
LOC: NCHCN 19:23
PROVIDERS: PCP Nurse Practitioner Family; Visit Provider Nurse Practitioner Family
DX: E11.9 Type 2 diabetes mellitus without complications (principal)
CPT/HCPCS: 80048

== ENCOUNTER → 2023-12-15 04:42 | Outpatient (CLI) | payer MEDICAID, SELFPAY ==
--- NOTE | 2023-12-15 07:00 | DI.US_ITS ---
APPROVED REPORT EXAM: Comprehensive 2D, Doppler, and color-flow Echocardiogram Patient Location: Out-Patient Shopfitter: Vikas Lopez RDCS (AE) Indications: increased dyspnea Conclusion 1. Left atrium mildly dilated, other chambers normal sizes. 2. Normal LV systolic function without wall motion abnormality,EF 55-60%.Grade 1 diastolic dysfunctio n. Normal RV function. 3. Anatomically normal valves without significant regurgitation or stenosis. 4. No intracardiac shunt. 5. No pericardial effusion Wall motion Left Ventricle The left ventricle is normal size. The left ventricular systolic function is normal. The left ventric ular ejection fraction is within the normal range. There is normal left ventricular wall thickness. T here is normal LV segmental wall motion. There is no ventricular septal defect visualized. LVEF is 55 %. Right Ventricle The right ventricle is normal size. The right ventricular systolic function is normal. Atria The left atrium size is normal. The right atrium size is normal. Atrial septal aneurysm is present wi thout PFO. Aortic Valve The aortic valve is normal in structure. Aortic valve is trileaflet. There is no aortic valvular sten osis. Trace aortic regurgitation. Mitral Valve The mitral valve is normal in structure. No evidence of mitral valve stenosis. There is no mitral wong ve regurgitation noted. Tricuspid Valve The tricuspid valve is normal in structure. There is no tricuspid valve stenosis. Trace tricuspid reg urgitation. Unable to assess PA pressure. Pulmonic Valve The pulmonary valve is normal in structure. There is no pulmonic valvular stenosis. Trace pulmonic re gurgitation. Great Vessels The aortic root is normal in size. The ascending aorta is normal in size. Aortic arch is not well vis ualized. IVC is normal in size and collapses >50% with inspiration. Pericardium There is no pericardial effusion. 2D Dimensions IVSD d PLAX 0.79 cm F: 0.6-1.0 Ao Root d 2.93 cm F: 2.7 - 3.3 LVPW d PLAX 0.76 cm F: 0.6 - 1.0 Ao Asc Diam d 2.57 cm F: 2.3 - 3.1 LVID d PLAX 3.90 cm F: 3.8 - 5.2 LVDs 2.79 cm F: 2.2 - 3.5 LV EF Teichholz 55.3 % FS 28.26 % LV EDV (Teich) 65.7 mL LV ESV (Teich) 29.4 mL Stroke Vol Index (Teich) 21.48 M-Mode TAPSE 1.66 cm (M/F) >1.7 Auto EF LV EDV A4C 63.4 mL LV EDV A2C 57.3 mL LV EDV BP 61.1 mL LV ESV A4C 29.1 mL LV ESV A2C 25.7 mL LV ESV BP 27.6 mL LVEF(%) A4C 54.1 % LVEF(%) A2C 55.1 % LVEF(%) BP 54.9 % LV SV A4C 34.3 ml LV SV A2C 31.6 ml LV SV BP 33.5 ml LV CO A4C 2.7 L/min LV CO A2C 2.4 L/min LV CO BP 2.6 L/min HR A4C 78.43 BPM HR A2C 76.93 BPM LV EDV Index (BP) LA Volume LA Length A4C 4.7 cm LA Length A2C 4.8 cm LA Area A4C s 10.04 cm2 LA Area A2C s 9.05 cm2 LA Vol A4C A-L 18.01 mL LA Vol A2C A-L 14.58 mL LA Vol Biplane A-L 16.2 mL LA Vol/BSA A4C A-L LA Vol/BSA A2C A-L LA Vol/BSA BP A-L 9.6 mL/m2 LA Vol A4C MOD 16.4 mL LA Vol A2C MOD 13.3 mL LA Vol BP MOD 14.8 mL RA Volume RA Area A4C 7.8 cm2 RA ESV A4C (A-L) 13.4mL RA Vol/BSA A4C A-L RA Length A4C 3.9 cm RA ESV A4C (MOD) 12.9mL LV Diastology MV E' medial 0.064 (>0.07 m/s) MV E Vmax 0.55 (0.4-1.3 m/s) MV E/E' MED 8.68 (<14) MV A Vmax 0.75 (0.4-1.3 m/s) MV E' lateral 0.077 (>0.1 m/s) E/A Ratio 0.7 MV E/E' LAT 7.17 (<14) MV E' Average 0.070 m/s MV E/E'(average) 7.85 Aortic Valve AoV Vmax 1.08 m/s LVOT Vmax 0.80 m/s AoV Peak Grad 40.5 mmHg LVOT Peak Grad 2.6 mmHg AoV Area (Vmax) 1.81 cm2 LVOT VTI 0.169 m AoV VTI 0.235 m LVOT Mean Grad 1.2 mmHg AoV Mean Demarco. 0.89 m/s LVOT SV 41.51 mL AoV Mean Grad 3.3 mmHg LVOT Diam s 1.75 cm AoV Area (VTI) 1.77 cm2 AV Regurg Peak Gr. 76.30 mmHg Velocity Ratio 0.74 AR Decel Hansford 2.3m/sec2 AR DT 1861 msec AR PHT 540 msec AR Vmax 4.37 m/s Pulmonary Valve PV Vmax 0.81 (0.5-1.5 m/s) RVOT Vmax 0.63 m/s PV Peak Grad 2.6 mmHg RVOT Peak Gr. 1.6 mmHg PV Mean Demarco 0.72 m/s RVOT VTI 0.117 m PV Mean Grad 2.1 mmHg RVOT Mean Gr. 0.7 mmHg
== END ==
PROVIDERS: PCP Nurse Practitioner Family; Visit Provider Surgery
DX: R06.09 Other forms of dyspnea (principal)
CPT/HCPCS: 93306

== ENCOUNTER 2023-12-26 09:00 | Day surgery (SDC) | payer MEDICAID, SELFPAY ==
--- NOTE | 2023-12-25 16:15 | W.PREOPHP ---
Assessment and Plan Assessment and plan (1) Dysphasia: Status: Acute Assessment and plan: We did the plan for diagnostic EGD today, as well as the risks and the benefits of the procedure. I think she has a good understanding of this, and she is able to provide informed consent. We can proceed as planned. History of Present Illness History of Present Illness Chief Complaint: Dysphagia Narrative: It is very nice to meet Héctor Gamboa today. She is 63 years old, and she has been suffering from dysphagia for many months. She describes it mostly as a kind of sticking, and uncomfortable sensation that tends to be a little worse with solid foods compared to liquids. She has some symptoms consistent with reflux as well. She denies any nausea or vomiting. PFSH All Active Problems Tobacco abuse (Acute) Urinary obstruction (Acute) Stage 3b chronic kidney disease (CKD) (Acute) Acute cough (Acute) Dysphasia (Acute) Other specified peripheral vascular diseases (Acute) Diabetes mellitus with autonomic neuropathy (Acute) Type 2 diabetes mellitus with peripheral neuropathy (Acute) Lateral epicondylitis, left elbow (Acute) Tubular adenoma (Acute) Emphysema lung (Acute) MEHTA (dyspnea on exertion) (Acute) SOB (shortness of breath) on exertion (Acute) worsening pt continues to smoke Chronic kidney disease (CKD) stage G3b/A1, moderately decreased glomerular filtration rate (GFR) between 30-44 mL/min/1.73 square meter and albuminuria creatinine ratio less than 30 mg/g (Acute) Encounter for screening for malignant neoplasm of colon (Acute) Nausea (Acute) Abdominal pain (Acute) Gastritis (Acute) Esophagitis determined by endoscopy (Acute) Dysphagia (Acute) GERD (gastroesophageal reflux disease) (Acute 04/12/14) Chronic pain (Acute 04/12/14) IBS (Acute) CELIAC DISEASE (Acute) Medical History Non-small cell lung cancer right-pt. states she is in remission since 2019 IBS (irritable bowel syndrome) Generalized anxiety disorder Fibromyalgia Memory loss Recurrent UTI (urinary tract infection) Impingement syndrome of right shoulder Atrophic kidney Adjustment disorder with mixed emotional features Lumbar pain Steatosis, liver Shortness of breath Acute nontraumatic kidney injury Magnesium deficiency Sleeping difficulties Obesity COPD, mild Seborrheic dermatitis Adenocarcinoma Paresthesia Foot pain Hyperparathyroidism due to renal insufficiency History of posttraumatic stress disorder (PTSD) Arm pain, left Knee pain, left Fatigue Chronic lower back pain Tubular adenoma of colon Headache, unspecified Myalgia Personal history of COVID-19 Renal insufficiency Sinusitis Neck mass Abnormal laboratory test Diabetes Trigger middle finger of left hand Lung cancer Treated at [facility] [place] [id number], pt states she is in remission Referred otalgia of right ear Chronic sinusitis of both maxillary sinuses Chronic rhinitis Viral syndrome Reflex sympathetic dystrophy Dizziness Tachycardia COPD (chronic obstructive pulmonary disease) Blood glucose elevated Memory loss Elevated LFTs Peripheral neuropathy Dysphagia Depression (04/12/14) Retention of urine (03/05/18) Hypothyroidism, unspecified (04/25/16) Hyperlipidemia (04/12/14) Essential hypertension (04/12/14) Bladder pain (03/05/18) Asymptomatic postmenopausal status (age-related) (natural) (01/30/12) URINARY INCON. RSD INSOMNIA Hypertension HX TOBACCO USE GERD FYBROMYALGIA COUGH CHRONIC PAIN SYN CHRONIC BOWEL DISTURBANCE/CHRONIC CONSTIPATION ANXIETY STATE NOS Surgical History History of colonoscopy with polypectomy (~08/02/22) Trigger finger of right thumb S/P release: 05/02/2021 H/O esophagogastroduodenoscopy (~02/23/19) S/P rotator cuff repair History of esophagogastroduodenoscopy (EGD) Ligation of fallopian tube Rotator Cuff Repair (~2007) Bladder Surgery Sling Procedure tashia Moreno Family History Mother Pneumonia Father Mesothelioma Grandmother Breast cancer [facility] Social History Smoking/Tobacco Use Status: Current every day Tobacco Type: cigarettes Smoking risk assessment performed?: Yes Alcohol Intake: never Drug use: Rarely Substance use type: marijuana Housing: apartment Do you feel safe at home: Yes Do you feel safe in your relationship?: Yes History History 4 Para 2 Hx # Term Pregnancies Multiple births Hx # Pregnancies Ectopic pregnancies AB induced Hx Number of Living Children AB spontaneous Meds Allergies and Home Medications Allergies Allergy/AdvReac Type Severity Reaction Status Date / Time prochlorperazine edisylate Allergy Severe Psychosis Verified 12/26/23 09:35 [From Compazine] prochlorperazine maleate Allergy Severe Psychosis Verified 12/26/23 09:35 [From Compazine] gluten Allergy Verified 12/26/23 09:35 trazodone Allergy Verified 12/26/23 09:35 combid Allergy Severe Psychosis Uncoded 12/26/23 09:35 Home Medications Medication Instructions Recorded Confirmed Type omeprazole 20 mg capsule,delayed 20 mg PO DAILY 02/10/13 12/26/23 History release (Prilosec) albuterol sulfate 90 mcg/actuation 2 puff inhalation Q4H PRN 07/25/15 12/26/23 History aerosol inhaler (ProAir HFA) metoprolol tartrate 50 mg tablet 50 mg PO BID 12/18/17 12/26/23 History fluticasone propionate 110 110 mcg inhalation BID ##1 12/24/17 12/26/23 Rx mcg/actuation HFA aerosol inhaler (Flovent HFA) clonazepam 0.5 mg tablet (Klonopin) 1 mg PO BID PRN 03/29/21 12/26/23 History acetaminophen 500 mg capsule 1,000 mg (2 x 500 mg) PO Q8H PRN 05/02/21 12/26/23 Rx PRN #90 caps amitriptyline 100 mg tablet 100 mg PO DAILY 05/02/21 12/26/23 History empagliflozin 10 mg tablet 10 mg PO DAILY 07/11/22 12/25/23 History (Jardiance) gabapentin 100 mg capsule 200 mg PO BID 07/11/22 12/26/23 History atorvastatin 10 mg tablet 10 mg PO DAILY 12/17/22 12/26/23 History levothyroxine 100 mcg capsule 100 mcg PO DAILY 12/17/22 12/26/23 History Marijuana Edibles PO 03/11/23 10/17/23 History Personal Cath. 14-6 Fr. .Route 03/11/23 10/17/23 History 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 meter 03/11/23 10/17/23 History fluticasone propionate 230 2 puff inhalation BID 03/11/23 12/26/23 History mcg-salmeterol 21 mcg/actuation HFA inhaler (Advair HFA) gabapentin 400 mg capsule 400 mg PO QHS 03/11/23 12/26/23 History ketoconazole 1 % shampoo (Nizoral 1 applic topical Q3D 03/11/23 12/26/23 History A-D) naloxone 4 mg/actuation nasal 4 mg intranasal Q2M PRN 03/11/23 12/26/23 History spray (Narcan) lisinopril 10 mg tablet 10 mg PO DAILY 10/08/23 12/26/23 History Exam Const General: cooperative, healthy appearing and not in acute distress Neck Neck: normal visual inspection, no lymphadenopathy and supple Resp Effort & Inspection: normal respiratory effort Auscultation: clear to auscultation bilaterally Cardio Jugular venous pressure: no JVD Rate: regular rate Rhythm: regular rhythm Heart Sounds: S1 normal and S2 normal GI Inspection: normal to inspection Palpation: soft, no guarding, no hernias and nontender Percussion: normal to percussion Auscultation: normal bowel sounds Neuro General: patient alert, patient awake and patient oriented x3 Psych Appearance: grossly normal
--- NOTE | 2023-12-25 16:16 | W.PM.DSUDISC ---
Date of service: 12/26/23 Time of Service: 12:17 Discharge Plan Disposition Patient Disposition: Home Condition: Good Discharge Details Reason For Visit: EGD Attending Provider: Andrew Deng Primary Care Provider: Kathy Wright Home Meds and New Rx's Prescriptions: Continued clonazepam [Klonopin] 0.5 mg tablet 1 mg PO BID PRN Jardiance 10 mg tablet 10 mg PO DAILY omeprazole [Prilosec] 20 MG capsule,delayed release(DR/EC) 20 mg PO DAILY albuterol sulfate [ProAir HFA] 8.5 GM HFA aerosol inhaler 2 puff Inhalation Q4H PRN metoprolol tartrate 50 MG tablet 50 mg PO BID atorvastatin 10 mg tablet 10 mg PO DAILY levothyroxine 100 mcg capsule 100 mcg PO DAILY naloxone [Narcan] 4 mg/actuation spray,non-aerosol 4 mg intranasal Q2M PRN Rx Instructions: spray 1 dose into ONE nostril; alternate nostrils w each dose until help arrives Marijuana Edibles PO Nizoral A-D 1 % shampoo 1 applic topical Q3D (DME) 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 meter Kit See Rx Instructions .Route Rx Instructions: As directed gabapentin 400 mg capsule 400 mg PO QHS fluticasone propion-salmeterol [Advair HFA] 230-21 mcg/actuation HFA aerosol inhaler 2 puff inhalation BID Personal Cath. 14-6 Fr. .Route Rx Instructions: use 3x a day PRN lisinopril 10 mg tablet 10 mg PO DAILY Patient Comments: TAKE ONE TABLET BY MOUTH EVERY DAY fluticasone propionate [Flovent HFA] 12 GM HFA aerosol inhaler 110 mcg Inhalation BID Qty: 1 0RF amitriptyline 100 mg tablet 100 mg PO DAILY Patient Comments: TAKE ONE TABLET BY MOUTH AT BEDTIME acetaminophen 500 mg capsule 1,000 mg PO Q8H PRN PRNQty: 90 0RF gabapentin 100 mg capsule 200 mg PO BID Patient Comments: TAKE TWO CAPSULES BY MOUTH EVERY MORNING AND five IN THE EVENING Rx Instructions: 200mg am 500mg PM Discharge Instructions Instructions: GERD (Gastroesophageal Reflux Disease) (DC) Additional Instructions: Marleni, we were able to complete your upper endoscopy today without any issues. Generally speaking, your esophagus looks quite good. There is some changes around the bottom part that are consistent with gastroesophageal reflux disease, and reflux esophagitis. Fortunately, however, I do not see any signs of tumors or cancer. I did do some biopsies in this area to be safe. Your stomach also looks quite good. There are no signs of active inflammation or ulceration. I took some biopsies here to rule out Helicobacter pylori (a type of bacteria) that can sometimes be associated with some swallowing difficulty. Within the actual esophagus itself, I did not see any signs of blockage, narrowing, diverticula, or other problematic pathology. For now, I would encourage you to stay well-hydrated, and try to consume your food with some liquid to help things move along smoothly. Once I have the results of the biopsies, I will be in touch if there is anything else that we can do, or any other test that we should perform. 1. If tolerated, consume a soft, low fiber diet for 1-2 days. [address] Do not drive, drink alcohol, operate machinery, make critical decisions, or do activities that require coordination or balance for 24 hours. 3. You may experience a sore throat for 24 to 48 hours. You may use throat lozenges or gargle with warm salt water to relieve the discomfort. 4. Because air was put into your stomach during the procedure, you may experience some belching. 5. Go directly to the emergency room if you notice any of the following: Develop chills (warm to touch), or if you have a thermometer and your temperature is above 101 Difficulty breathing or difficultly swallowing Persistent vomiting Severe abdominal pain, other than gas cramps Severe chest pain Black, tarry stools Any bleeding ? exceeding one tablespoon 6 Call your physician if the site where your intravenous was started becomes red, swollen, painful, and warm to touch. 7. Your physician has reviewed your pre-procedure medications. Please continue to take those medications as previously ordered. You will be given specific information/education regarding any changes to your medications before leaving. Stand Alone Forms: Anesthesia Discharge Inst., Sapphire Meyer ([facility]) Activity:: Activity as Tolerated Diet:: As Tolerated Discharge Orders Discharge Orders: Discharge Order (Routine); Ordered 12/25/23 Ordered By: Andrew Deng DS: Diagnosis Discharge Diagnosis (1) Dysphasia: Status: Acute Asessment and Plan: Follow-up on pathology results
--- NOTE | 2023-12-25 16:18 | W.PM.ENDDOP ---
Date of service: 12/26/23 Time of Service: 12:22 Endoscopy Report DATE OF PROCEDURE: 12/26/23 PRE-OP DIAGNOSIS: Dysphagia POST-OP DIAGNOSIS: same PROCEDURE: EGD with biopsies SURGEON: Andrew Deng ANESTHESIA TYPE: General:No Airway PATHOLOGY: other (Random biopsies of gastric antrum and body. Biopsies of GE junction) COMPLICATIONS: None DISPOSITION: same day INDICATIONS: Marleni is a 63-year-old woman has been experiencing dysphagia. Her past medical history is also significant for gastroesophageal reflux disease. Given her symptoms, tobacco use, and longstanding GERD, I think it is very reasonable to proceed with EGD PROCEDURE START TIME: 11:53 PROCEDURE END TIME: 12:03 FINDINGS: Mild Z-line irregularity at 36 cm from the incisors PROCEDURE DESCRIPTION: After the initiation of anesthesia, and with the assistance of a bite block, I advanced a standard gastroscope through the mouth past the hypopharynx and into the esophagus.? Under the direct vision of the scope, I advanced down the esophagus into the stomach.? Once I entered the stomach, I performed a brief inspection, followed by retroflexion towards the gastric cardia.? This appeared normal.? After that, I gently advanced the scope around the incisura angularis and examined the pylorus.? This also appeared normal.? Next, I advanced the scope through the pylorus into the duodenum.? The mucosa was pink and healthy appearing.? There were no abnormalities.? I was able to visualize bile draining into the duodenum through the ampulla Vater. ?Next, I began retracting the endoscope.? I brought the camera back into the stomach and examined it once again. I saw no evidence of gastritis, or other pathology. I did perform some random biopsies of the gastric antrum and body to rule out Helicobacter pylori as a source of her symptoms.? I then gently desufflated some of the stomach, and withdrew the endoscope into the distal esophagus. There was very mild irregularity of the Z-line at 36 cm from the incisors. It was less than 2 cm worth of change. I did perform four-quadrant biopsies of the GE junction here.. ?Finally, I withdrew the scope along the length of the esophagus taking great care to examine the entirety of the mucosa.? I did not appreciate any abnormalities.
[2023-12-26 09:38] VITALS: BP 132/52; PULSE 82; RESP 16; TEMP 36.5; O2SAT 99
[2023-12-26] MEDS: Lactated Ringers 1,000 ML 80 ML IV (09:42)
--- NOTE | 2023-12-26 10:53 | W.ANESPRE ---
General Info Date of Service Date Performed: 12/26/23 Height: 5 ft Weight: 68.9 kg Body Mass Index (BMI): 29.6 Surgical Procedure: Operation Date: 12/26/23 10:20 Proposed Procedure Side Surgeon p Gastroscopy Andrew Deng MD Actual Procedure Side Surgeon p Gastroscopy Not Applicable Andrew Deng MD Pre-Op Diagnosis Post-Op Diagnosis EGD Meds Allergies and Home Medications Allergies Allergy/AdvReac Type Severity Reaction Status Date / Time prochlorperazine edisylate Allergy Severe Psychosis Verified 12/26/23 09:35 [From Compazine] prochlorperazine maleate Allergy Severe Psychosis Verified 12/26/23 09:35 [From Compazine] gluten Allergy Verified 12/26/23 09:35 trazodone Allergy Verified 12/26/23 09:35 combid Allergy Severe Psychosis Uncoded 12/26/23 09:35 Home Medication Medication Instructions Recorded omeprazole 20 mg capsule,delayed 20 mg PO DAILY 02/10/13 release (Prilosec) albuterol sulfate 90 mcg/actuation 2 puff inhalation Q4H PRN 07/25/15 aerosol inhaler (ProAir HFA) metoprolol tartrate 50 mg tablet 50 mg PO BID 12/18/17 fluticasone propionate 110 110 mcg inhalation BID ##1 12/24/17 mcg/actuation HFA aerosol inhaler (Flovent HFA) clonazepam 0.5 mg tablet (Klonopin) 1 mg PO BID PRN 03/29/21 acetaminophen 500 mg capsule 1,000 mg (2 x 500 mg) PO Q8H PRN 05/02/21 PRN #90 caps amitriptyline 100 mg tablet 100 mg PO DAILY 05/02/21 empagliflozin 10 mg tablet 10 mg PO DAILY 07/11/22 (Jardiance) gabapentin 100 mg capsule 200 mg PO BID 07/11/22 atorvastatin 10 mg tablet 10 mg PO DAILY 12/17/22 levothyroxine 100 mcg capsule 100 mcg PO DAILY 12/17/22 Marijuana Edibles PO 03/11/23 Personal Cath. 14-6 Fr. .Route 03/11/23 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 meter 03/11/23 fluticasone propionate 230 2 puff inhalation BID 03/11/23 mcg-salmeterol 21 mcg/actuation HFA inhaler (Advair HFA) gabapentin 400 mg capsule 400 mg PO QHS 03/11/23 ketoconazole 1 % shampoo (Nizoral 1 applic topical Q3D 03/11/23 A-D) naloxone 4 mg/actuation nasal 4 mg intranasal Q2M PRN 03/11/23 spray (Narcan) lisinopril 10 mg tablet 10 mg PO DAILY 10/08/23 Current Visit Medications: Current Medications Generic Name Dose Route Start Last Admin Trade Name Freq PRN Reason Stop Dose Admin Hyoscyamine Sulfate 0.125 mg 12/25/23 16:19 Hyoscyamine 0.125 Mg Sl/Oral/Chew SL 01/24/24 16:18 DIRECTED PRN Ringer's Solution 1,000 mls @ 80 mls/hr 12/26/23 06:00 12/26/23 09:42 IV 12/26/23 23:59 80 mls/hr INFUSION NIVIA Administration IV Miscellaneous Supplies 1 each 12/26/23 06:00 Iv Access IV 12/26/23 23:59 DIRECTED NIVIA Ondansetron HCl 4 mg 12/25/23 16:19 Ondansetron 4 Mg/2 Ml Vial IVP 01/24/24 16:18 Q4H PRN PRN Nausea / Vomiting Sodium Chloride 0 ml 12/26/23 06:00 Normal Saline Flush 10 Ml Syr IV 12/26/23 23:59 PRN PRN Sodium Chloride 0 ml 12/26/23 06:00 Normal Saline 10 Ml Vial IJ 12/26/23 23:59 DIRECTED PRN Sterile Water 0 ml 12/26/23 06:00 Water,Injection,Sterile 10 Ml Vial IJ 12/26/23 23:59 DIRECTED PRN PFSH Active Problems Active Problems: Problem Status Onset Code Tobacco abuse Z72.0 Urinary obstruction N13.9 Stage 3b chronic kidney disease (CKD) N18.32 Acute cough R05.1 Dysphasia R47.02 Other specified peripheral vascular diseases I73.89 Diabetes mellitus with autonomic neuropathy E11.43 Type 2 diabetes mellitus with peripheral neuropathy E11.42 Lateral epicondylitis, left elbow M77.12 Tubular adenoma D36.9 Emphysema lung J43.9 MEHTA (dyspnea on exertion) R06.09 SOB (shortness of breath) on exertion R06.02 Chronic kidney disease (CKD) stage G3b/A1, moderately decreased glomerular filtration rate (GFR) between 30-44 mL/min/1.73 square meter and albuminuria creatinine ratio less than 30 mg/g N18.32 Encounter for screening for malignant neoplasm of colon Z12.11 Nausea R11.0 Abdominal pain R10.9 Gastritis K29.70 Esophagitis determined by endoscopy K20.9 Dysphagia R13.10 GERD (gastroesophageal reflux disease) 04/12/14 K21.9 Chronic pain 04/12/14 G89.29 IBS CELIAC DISEASE Medical History Medical History Non-small cell lung cancer right-pt. states she is in remission since 2019 IBS (irritable bowel syndrome) Generalized anxiety disorder Fibromyalgia Memory loss Recurrent UTI (urinary tract infection) Impingement syndrome of right shoulder Atrophic kidney Adjustment disorder with mixed emotional features Lumbar pain Steatosis, liver Shortness of breath Acute nontraumatic kidney injury Magnesium deficiency Sleeping difficulties Obesity COPD, mild Seborrheic dermatitis Adenocarcinoma Paresthesia Foot pain Hyperparathyroidism due to renal insufficiency History of posttraumatic stress disorder (PTSD) Arm pain, left Knee pain, left Fatigue Chronic lower back pain Tubular adenoma of colon Headache, unspecified Myalgia Personal history of COVID-19 Renal insufficiency Sinusitis Neck mass Abnormal laboratory test Diabetes Trigger middle finger of left hand Lung cancer Treated at [facility] [id number], pt states she is in remission Referred otalgia of right ear Chronic sinusitis of both maxillary sinuses Chronic rhinitis Viral syndrome Reflex sympathetic dystrophy Dizziness Tachycardia COPD (chronic obstructive pulmonary disease) Blood glucose elevated Memory loss Elevated LFTs Peripheral neuropathy Dysphagia Depression (04/12/14) Retention of urine (03/05/18) Hypothyroidism, unspecified (04/25/16) Hyperlipidemia (04/12/14) Essential hypertension (04/12/14) Bladder pain (03/05/18) Asymptomatic postmenopausal status (age-related) (natural) (01/30/12) URINARY INCON. RSD INSOMNIA Hypertension HX TOBACCO USE GERD FYBROMYALGIA COUGH CHRONIC PAIN SYN CHRONIC BOWEL DISTURBANCE/CHRONIC CONSTIPATION ANXIETY STATE NOS Surgical History Surgical History History of colonoscopy with polypectomy (~08/02/22) Trigger finger of right thumb S/P release: 05/02/2021 H/O esophagogastroduodenoscopy (~02/23/19) S/P rotator cuff repair History of esophagogastroduodenoscopy (EGD) Ligation of fallopian tube Rotator Cuff Repair (~2007) Bladder Surgery Sling Procedure tashia Moreno Tobacco Smoking/Tobacco Use Status: Current every day Tobacco Type: cigarettes Alcohol Alcohol Intake: never Substance Use Substance use: Rarely Substance use type: marijuana Prental History History 4 Para 2 Hx # Term Pregnancies Multiple births Hx # Pregnancies Ectopic pregnancies AB induced Hx Number of Living Children AB spontaneous Vital Signs and Lab Results Vital Signs Most Recent Vital Signs in EMR: Most Recent Vital Signs Temp Pulse Resp BP Pulse Ox 36.5 C 82 16 132/52 L 99 12/26/23 09:38 12/26/23 09:38 12/26/23 09:38 12/26/23 09:38 12/26/23 09:38 Point of Care Results Point of Care Results: Finger Stick Blood Glucose 143 12/26/23 09:31 Lab Results Blood Type / Crossmatch: No Data to Display Complete Blood Count: No Data to Display Complete Metabolic Panel: No Data to Display Liver Function Panel: No Data to Display Coagulation Panel: No Data to Display Cardiac Panel: No Data to Display Arterial Blood Gas: No Data to Display Venous Blood Gas: No Data to Display Pancreas Panel: No Data to Display Thyroid Panel: No Data to Display Infectious Disease: No Data to Display Blood Cultures: No Data to Display Toxicology Panel: No Data to Display Imaging and Studies Imaging and Studies Study information below may be from another EMR and interpreted by another provider. Please see original notes in EMR for more complete details. Echocardiogram Summary: Date of Exam: 04/06/20ex: F Admission Date: 04/06/20 : 1960 Age: 59 Exam(s) a US:US echocardiogram APPROVED REPORT EXAM: Comprehensive 2D, Doppler, and color-flow Echocardiogram Patient Location: Out-Patient Continuous Miner Operator Helper: Binta Mcmillan RDCS (AE) Indications: Lung Cancer, s/p Chemo, SOB Other Information Study Quality: Good Conclusion Normal left ventricular wall thickness and chamber size. Estimated ejection fraction is 55 to 60%. There are no segmental wall motion abnormalities. There is no chamber enlargement Aortic valve leaflets are mildly thickened. There is trace aortic regurgitation The mitral, tricuspid, and pulmonic valves are structurally normal. There is mild mitral regurgitation. There is trace tricuspid and pulmonic regurgitation RVSP could not be estimated Pulmonary Function Summary: Date of service: 07/25/22 Time of Service: 13:13 Pulmonary Function Test Result Requesting Provider Miladis Victoria Indications: Preoperative clearance for colonoscopy Interpretation Spirometry: There is no airflow limitation. There is no significant bronchodilator response. Lung Volumes: Lung volumes are normal. Diffusion Capacity: The diffusion is reduced. Airway Pressure: Normal airways resistance. Impression No airflow obstruction but there is a reduced diffusion. Note: The diffusion has slightly decreased when compared to 2011 when when accounting for aging. Clinical Correlation therefore is recommended. Anesthesia Assessment and Plan Anesthesia History Personal History: No History of Anesthesia Complications Family History: No Family History of Anesthesia Complications Exercise Tolerance Exercise Tolerance: Metabolic Equivalents>4 Pertinent Negatives Pertinent Negatives: No Symptoms of GERD and No Major Cardiovascular Symptoms or Complaints Cardiac & Pulmonary Exam Cardiac Exam: Normal S1/S2 Heart Sounds Pulmonary Exam: Clear Bilateral Breath Sounds Implantable Cardiac Device Does patient have a Pacemaker or an ICD?: No Airway Exam Known Difficult Airway: No Mallampati Class: 1 Mouth Opening: Normal (> 3cm) Thyromental Distance: Greater than 3 cm Neck Range of Motion: Full ROM Neck Circumference: Normal Teeth Condition: Edentulous ASA Classification ASA Score: ASA 3 Emergency Case?: No NPO Status NPO Status: NPO Clears >2 hours, Solids >8 hours Anesthesia Plan Resuscitation Status: Full Code Anesthesia Technique: General Anesthesia Airway Planned: Natural Airway Monitors Used: Standard Monitors
[2023-12-26 10:58] VITALS: BMI 29.6
--- NOTE | 2023-12-26 12:00 | STOM_PTH ---
PATIENT: Marleni Christianson LOC: [facility] U#:[id number] AGE/SX: 63/F ROOM: RE12/26/[address]: Andrew Deng MD : 1960 BED: DIS: 12/26/2023 SPEC #: [id number] RECD: 12/26/23 12:47 STATUS: BASIM RE #: [id number] LINDA: 12/26/23 12:[address]: Andrew Deng DEPT: Surgical Specimen RECD BY: Leslie Younger ENTERED: 12/26/23 12:48 SP TYPE: STOMACH OTHR DR: Kathy Wright Tissues: 1 - STOMACH BIOPSY 2 - STOMACH BIOPSY B - ESOPHAGUS BIOPSY Procedures: GROSS AND MICRO LEVEL 4 Comments: [id number]
[2023-12-26 12:11] VITALS: BP 99/63; PULSE 80; RESP 18; TEMP 36.6; O2SAT 96
[2023-12-26 12:37] VITALS: BP 108/71; PULSE 78; RESP 16; TEMP 36.4; O2SAT 94
--- NOTE | 2023-12-26 14:03 | W.ANESPOSTOP ---
Postoperative Evaluation Date, Time and Location Date Performed: 12/26/23 Time Performed: 12:40 Patient Location: Day Surgery Unit Vital Signs Most Recent Imported Vital Signs: Most Recent Vital Signs Temp Pulse Resp BP Pulse Ox 36.4 C L 78 16 108/71 94 12/26/23 12:37 12/26/23 12:37 12/26/23 12:37 12/26/23 12:37 12/26/23 12:37 Pain Score Most Recent Pain Score: Most Recent Pain Score Pain Level 0 12/26/23 12:37 Assessment Mental Status: Awake (Alert & Oriented to Patient Baseline) Airway and Respiratory Function: Patent airway with normal (patient baseline) respiratory exam Cardiovascular Function: Hemodynamically Stable Hydration Status: Adequately Hydrated Nausea & Vomiting: No Nausea or Vomiting Pain: Pt. Denies Any Pain Peripheral Nerve Block: Patient did not receive a nerve block
== END 2023-12-26 09:01 | disposition home or self-care (01) ==
LOC: SUR 09:01
PROVIDERS: PCP Nurse Practitioner Family; Visit Provider Surgery
PROC: 0DJ68ZZ Inspection of Stomach, Via Natural or Artificial Opening Endoscopic (ICD-10-PCS; CPT 43235; principal; 2023-12-26 10:15)
DX: R13.10 Dysphagia, unspecified (principal); N18.32 Chronic kidney disease, stage 3b; F17.210 Nicotine dependence, cigarettes, uncomplicated; E11.43 Type 2 diabetes mellitus with diabetic autonomic (poly)neuropathy; E11.42 Type 2 diabetes mellitus with diabetic polyneuropathy; E11.22 Type 2 diabetes mellitus with diabetic chronic kidney disease; K90.0 Celiac disease; K21.9 Gastro-esophageal reflux disease without esophagitis; K22.89 Other specified disease of esophagus
CPT/HCPCS: 43239; 88305; J2704

== ENCOUNTER → 2024-01-09 02:04 | Outpatient (CLI) | payer MEDICAID, SELFPAY ==
--- NOTE | 2024-01-09 08:11 | DI.CT_ITS ---
Exam(s) CT CHEST WO EXAM: CT CHEST WO CLINICAL HISTORY: NON SMALL CELL LUNG CANCER RIGHT C34.91 ASSESS TREATMENT RESPONSE. TECHNIQUE: Multi planar reconstructions were performed. CONTRAST MATERIAL: None FINDINGS: CHEST: LUNGS: There are no new significant pulmonary findings. Postsurgical changes in the right lower lobe again noted but there is no new abnormal lung mass evident at this level nor elsewhere in either jorge g field. There are also no pleural effusions. No evidence of interstitial disease. No bronchiectas is. MEDIASTINUM: There is no obvious hilar nor mediastinal adenopathy. No subcarinal adenopathy. No supr aclavicular adenopathy. No axillary adenopathy. CARDIAC: Heart size is normal. There is no pericardial effusion.Caliber of the thoracic aorta is wit hin normal limits. VISUALIZED UPPER ABDOMEN:No new significant adrenal findings. The right kidney is again noted to be atrophic. Partially included left kidney appears to exhibit normal size. OSSEOUS: No new significant osseous lesions. No new fractures. Previously present compression fract ure of T12 remains unchanged. IMPRESSION: 1. Stable appearance with no evidence of new significant focal lung findings, pleural effusions, nor intrathoracic adenopathy. 2. Stable appearance of the solitary T12 compression fracture. No lytic nor blastic osseous lesions identified. RADIATION DOSE DELIVERED: 676.94mGy.cm Total DLP DATA REPOSITORY: All CT scans at this facility are submitted to the National Radiology Data Registry (NRDR) Dose Index Registry (DIR) with the [employer] (A[employer]). RADIATION OPTIMIZATION: All CT scans at this facility use at least one of these dose optimization te chniques: automated exposure control; mA and/or kV adjustment per patient size (includes targeted exa ms where dose is matched to clinical indication); or iterative reconstruction.
== END ==
PROVIDERS: PCP Nurse Practitioner Family; Visit Provider Internal Medicine Hematology & Oncology
DX: C34.91 Malignant neoplasm of unspecified part of right bronchus or lung (principal)
CPT/HCPCS: 71250

== ENCOUNTER → 2024-01-19 04:18 | Outpatient (CLI) | payer MEDICAID, SELFPAY ==
--- NOTE | 2024-01-19 10:47 | DI.RAD_ITS ---
Exam(s) RF BARIUM SWALLOW EXAM: RF BARIUM SWALLOW CLINICAL HISTORY: Dysphagia despite normal-appearing EGD,r47.02 TECHNIQUE: 2D and realtime digital imaging was performed. CONTRAST MATERIAL: Oral barium contrast was administered. COMPARISON: CR LEFT RIBS TO INCLUDE CXR from 10/28/[address] CHEST WO from 01/09/2024 FINDINGS: CHEST X-RAY: The heart and pulmonary vasculature are within normal limits. The lungs are clear. No pl eural effusion or pneumothorax is present. The bones are within normal limits for the patient's age. Postsurgical changes are seen in the left shoulder. There is an old L1 compression deformity. Degen erative changes are seen in the cervical spine characterized by disc space narrowing and osteophytes. The prevertebral soft tissues are unremarkable. ESOPHAGRAM: The esophagus is patent with no evidence for erosions, fold thickening, strictures, or ma sses. With regards to the motility, there is a normal primary stripping wave. No tertiary contraction s were noted. There is no hiatal hernia or gastroesophageal reflux. IMPRESSION: Normal esophagram RADIATION DOSE DELIVERED: christiana Tay=12.8 mGy
[2024-01-19] MEDS: Barium Sulfate 98% W/W 140 ML BTL PO (10:49)
[2024-01-19] MEDS: Simethicone/Sod Bicarb/Cit Ac, 4 gram PACKET 1 PACKET PO (10:50)
[2024-01-19] MEDS: Barium Sulfate 60% W/V 355 ML BTL PO (10:50)
== END ==
PROVIDERS: PCP Nurse Practitioner Family; Visit Provider Surgery
DX: R47.02 Dysphasia (principal)
CPT/HCPCS: 74221; J3490

== ENCOUNTER 2024-01-19 13:44 | Outpatient (CLI) | payer MEDICAID, SELFPAY ==
[2024-01-19 11:42] LABS: Abs Immature Grans 0.02 10^3/uL (0.0-0.06); Absolute Basophil Count 0.09 10^3/uL (0.0-0.2); Absolute Eosinophil Count 0.31 10^3/uL (0.0-0.7); Absolute Lymphocyte Count 2.47 10^3/uL (1.2-3.4); Absolute Monocyte Count 0.48 10^3/uL (0.1-0.8); Absolute Neutrophil Count 4.41 10^3/uL (1.2-6.7); Basophils % 1.2; HCT 43.5 % (36.0-46.0); HGB 14.1 g/dL (11.2-15.7); Immature Grans % 0.3; Lymphocytes % 31.7; MCH 28.8 pg (27.0-33.0); MCHC 32.4 % (32.0-36.0); MCV 89 fL (80-95); MPV 9.4 fL (8.0-11.0); Monocytes % 6.2; Neutrophils % 56.6; Platelet Count 244 10^3/uL (130-400); RDW 13.4 % (11.7-14.6); RDW-SD 43.8 fL; WBC 7.78 10^3/uL (4.4-10.8)
[2024-01-19 12:01] LABS: ALT 31 U/L (14-59); AST 26 U/L (15-37); Albumin 3.5 g/dL (3.4-5.0); Alkaline Phosphatase 105 U/L (46-116); Anion Gap 9.5 mmol/L (3-11); BUN 12 mg/dL (7-18); Bilirubin, Total 0.5 mg/dL (0.2-1.0); CO2 28.5 mmol/L (21.0-32.0); CREATININE 1.4 mg/dL (0.55-1.02); Chloride 104 mmol/L (98-107); Estimated GFR 42.27 (mL/min/1.73m2); Glucose 141 mg/dL (74-106); Potassium 4.2 mmol/L (3.5-5.1); Sodium 142 mmol/L (136-145); Total Protein 7.4 g/dL (6.4-8.2)
[2024-01-19 12:13] LABS: LDH 212 U/L (81-234)
== END 2024-01-19 13:45 | disposition home or self-care (01) ==
LOC: LBO 13:44
PROVIDERS: PCP Nurse Practitioner Family; Visit Provider Internal Medicine Hematology & Oncology
DX: C34.91 Malignant neoplasm of unspecified part of right bronchus or lung (principal)
CPT/HCPCS: 36415; 80053; 83615; 85025

== ENCOUNTER 2024-04-12 12:30 | Emergency (ER) | payer MEDICAID, SELFPAY ==
[2024-04-12] VITALS (19 sets, daily range): BP systolic 100–157; BP diastolic 58–74; PULSE 92–113; RESP 15–18; TEMP 36.7; O2SAT 92–100
[2024-04-12 13:31] LABS: Bilirubin Negative (Negative); Blood Trace-intact (Negative); Clarity Cloudy (Clear); Glucose >=1000 mg/dL (Negative); Ketones Negative (Negative); Leukocyte Esterase Small (Negative); Nitrite Positive (Negative); Specific Gravity <= 1.005 (1.005-1.025); Urobilinogen 0.2 mg/dL (Up to 0.2); pH 5.5 (5-8)
--- NOTE | 2024-04-12 13:37 | W.ED.GENAD ---
Discharge Plan Disposition Patient Disposition: Home Condition: Stable Discharge Details Clinical Impression: Pyelonephritis, Bronchitis, Elevated blood sugar Primary Care Provider: Kathy Wright ED Provider: Moses Castillo Home Meds and New Rx's Prescriptions: New cefpodoxime 200 mg tablet 200 mg PO BID Qty: 27 0RF Rx Instructions: must administer with a meal/food Continued clonazepam [Klonopin] 0.5 mg tablet 1 mg PO BID PRN Jardiance 10 mg tablet 10 mg PO DAILY naproxen 500 mg tablet 500 mg PO BID amitriptyline 100 mg tablet 50 mg PO DAILY citalopram [Celexa] 40 mg tablet 40 mg PO DAILY duloxetine 30 mg capsule,delayed release(DR/EC) 30 mg PO DAILY duloxetine 60 mg capsule,delayed release(DR/EC) 60 mg PO DAILY mirtazapine 7.5 mg tablet 7.5 mg PO QHS calcium-vitamin D3-vitamin K [Viactiv] 650 mg-12.5 mcg-40 mcg tablet,chewable 1 tab PO DAILY albuterol sulfate [ProAir HFA] 8.5 GM HFA aerosol inhaler 2 puff Inhalation Q4H PRN metoprolol tartrate 50 MG tablet 50 mg PO BID atorvastatin 10 mg tablet 10 mg PO DAILY levothyroxine 100 mcg capsule 100 mcg PO DAILY naloxone [Narcan] 4 mg/actuation spray,non-aerosol 4 mg intranasal Q2M PRN Rx Instructions: spray 1 dose into ONE nostril; alternate nostrils w each dose until help arrives Marijuana Edibles 1 tab PO PRN PRN Nizoral A-D 1 % shampoo 1 applic topical Q3D (DME) 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 meter Kit See Rx Instructions .Route Rx Instructions: As directed gabapentin 400 mg capsule 400 mg PO QHS fluticasone propion-salmeterol [Advair HFA] 230-21 mcg/actuation HFA aerosol inhaler 2 puff inhalation BID Personal Cath. 14-6 Fr. See Rx Instructions .ROUTE .COMPLEX Rx Instructions: Self cath. daily PRN; use 3x a day PRN lisinopril 10 mg tablet 10 mg PO DAILY Patient Comments: TAKE ONE TABLET BY MOUTH EVERY DAY fluticasone propionate [Flovent HFA] 12 GM HFA aerosol inhaler 110 mcg Inhalation BID Qty: 1 0RF acetaminophen 500 mg capsule 1,000 mg PO Q8H PRN PRNQty: 90 0RF gabapentin 100 mg capsule 200 mg PO BID Patient Comments: TAKE TWO CAPSULES BY MOUTH EVERY MORNING AND five IN THE EVENING Rx Instructions: 200mg am 500mg PM Held omeprazole [Prilosec] 20 MG capsule,delayed release(DR/EC) 20 mg PO DAILY Hold Instructions: Resume on 04/27/24. hold while on antibiotic Discharge Instructions Instructions: Acute Bronchitis (ED), Kidney Infection (ED) Additional Instructions: Please take full course of antibiotics as prescribed. Drink plenty of fluid and allow for plenty of rest. Your blood sugar was too elevated today. Please be sure to discuss this with your doctor. Medication changes may be necessary should this persist. Please contact your primary care physician to arrange follow-up. Return to the ER immediately for any worsening or new concerning symptoms. Referrals: Kathy Wright [Primary Care Provider] - [facility] General Mode of arrival: ambulatory. Date/Time Provider Initiated Documentation: 04/12/24 12:54. Limitations to Documentation: no limitations. Information obtained by: patient. HPI Narrative: 63-year-old female with multiple medical problems including history of COPD, chronic kidney disease, diabetes, lung cancer status postresection and chemotherapy remotely, here with chief complaint of cough. Patient notes severe cough, progressive over the past 6 days. Patient notes cough seems wet but nonproductive. She also notes associated left posterior mid back/flank plain over the past few days. This pain feels like prior kidney infection. No dysuria or hematuria. No associated fever. Related Data Home Medications Medication Instructions Recorded Confirmed omeprazole 20 mg capsule,delayed 20 mg PO DAILY 02/10/13 04/12/24 release (Prilosec) albuterol sulfate 90 mcg/actuation 2 puff inhalation Q4H PRN 07/25/15 04/12/24 aerosol inhaler (ProAir HFA) metoprolol tartrate 50 mg tablet 50 mg PO BID 12/18/17 04/12/24 fluticasone propionate 110 110 mcg inhalation BID ##1 12/24/17 04/12/24 mcg/actuation HFA aerosol inhaler (Flovent HFA) clonazepam 0.5 mg tablet (Klonopin) 1 mg PO BID PRN 03/29/21 04/12/24 acetaminophen 500 mg capsule 1,000 mg (2 x 500 mg) PO Q8H PRN 05/02/21 04/12/24 PRN #90 caps empagliflozin 10 mg tablet 10 mg PO DAILY 07/11/22 04/12/24 (Jardiance) gabapentin 100 mg capsule 200 mg PO BID 07/11/22 04/12/24 atorvastatin 10 mg tablet 10 mg PO DAILY 12/17/22 04/12/24 levothyroxine 100 mcg capsule 100 mcg PO DAILY 12/17/22 04/12/24 Marijuana Edibles 1 tab PO PRN PRN 03/11/23 04/12/24 Personal Cath. 14-6 Fr. See Rx Instructions .Route .COMPLEX 03/11/23 04/12/24 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 meter 03/11/23 04/12/24 fluticasone propionate 230 2 puff inhalation BID 03/11/23 04/12/24 mcg-salmeterol 21 mcg/actuation HFA inhaler (Advair HFA) gabapentin 400 mg capsule 400 mg PO QHS 03/11/23 04/12/24 ketoconazole 1 % shampoo (Nizoral 1 applic topical Q3D 03/11/23 04/12/24 A-D) naloxone 4 mg/actuation nasal 4 mg intranasal Q2M PRN 03/11/23 04/12/24 spray (Narcan) lisinopril 10 mg tablet 10 mg PO DAILY 10/08/23 04/12/24 amitriptyline 100 mg tablet 50 mg PO DAILY 03/02/24 04/12/24 calcium 650 mg-vitamin D3 12.5 1 tab PO DAILY 03/02/24 04/12/24 mcg-vitamin K 40 mcg chewable tablet (Viactiv) citalopram 40 mg tablet (Celexa) 40 mg PO DAILY 03/02/24 04/12/24 duloxetine 30 mg capsule,delayed 30 mg PO DAILY 03/02/24 04/12/24 release duloxetine 60 mg capsule,delayed 60 mg PO DAILY 03/02/24 04/12/24 release mirtazapine 7.5 mg tablet 7.5 mg PO QHS 03/02/24 04/12/24 naproxen 500 mg tablet 500 mg PO BID 03/02/24 04/12/24 cefpodoxime 200 mg tablet 200 mg PO BID #27 tabs 04/12/24 Previous Rx's Medication Instructions Recorded fluticasone propionate 110 110 mcg inhalation BID ##1 12/24/17 mcg/actuation HFA aerosol inhaler (Flovent HFA) acetaminophen 500 mg capsule 1,000 mg (2 x 500 mg) PO Q8H PRN 05/02/21 PRN #90 caps cefpodoxime 200 mg tablet 200 mg PO BID #27 tabs 04/12/24 Allergies Allergy/AdvReac Type Severity Reaction Status Date / Time prochlorperazine edisylate Allergy Severe Psychosis Verified 04/12/24 13:36 [From Compazine] prochlorperazine maleate Allergy Severe Psychosis Verified 04/12/24 13:36 [From Compazine] gluten Allergy Other (See Verified 04/12/24 13:36 Comment) trazodone Allergy Other (See Verified 04/12/24 13:36 Comment) sitagliptin [From Januvia] AdvReac Other (See Verified 04/12/24 13:36 Comment) combid Allergy Severe Psychosis Uncoded 04/12/24 13:36 General Stated Complaint: FlankPain JOSIE: 3 Review of Systems All systems reviewed & are unremarkable except as noted in HPI and below Constitutional Constitutional: Denies fever(s) Respiratory Respiratory: Reports as per HPI and Reports cough Exam Const General: cooperative and no acute distress Orientation: alert [facility] Mouth: moist mucous membranes Throat: posterior oropharynx normal Eyes Conjunctivae: normal conjunctivae Sclera: normal sclerae Neck Neck: trachea midline and supple Resp Effort & Inspection: cough and not labored Auscultation: rhonchi and other (diminished BS right) Cardio Rate: tachycardic Rhythm: regular rhythm GI Palpation: soft, not firm, no guarding, no masses, not rigid and nontender Back/Spine/Pelvis Thoracic/Lumbar Spine: paraspinal tenderness (left thoracic) Skin General skin exam: no rashes or lesions noted Neuro General: patient alert, patient awake, patient oriented x3 and tone normal Extrem General: no edema Psych Appearance: grossly normal Mental Status: mental status grossly normal Course Vital Signs Vital signs: Vital Signs Temperature 36.7 C 04/12/24 12:39 Pulse 113 H 04/12/24 12:39 Respiratory Rate 15 04/12/24 12:39 Blood Pressure 100/59 L 04/12/24 12:39 Pulse Oximetry 98 04/12/24 12:39 Temperature 36.7 C 04/12/24 12:43 Pulse 113 H 04/12/24 12:43 Respiratory Rate 15 04/12/24 12:43 Respiratory Effort Normal 04/12/24 12:43 Blood Pressure 100/59 L 04/12/24 12:43 Pulse Oximetry 98 04/12/24 12:43 Pain Level 10 04/12/24 13:23 Medical Decision Making 1342 --63-year-old female with multiple medical problems including history of COPD, lung cancer status postresection and chemotherapy remotely, chronic kidney disease, diabetes, here with hacking cough over the past 6 days, now with left flank/mid back pain over the past few days. Patient is saturating well and in no respiratory distress. She is tachycardic and normotensive. She did use her albuterol about an hour prior to arrival. Concern for pneumonia versus bronchitis. Plan to obtain chest x-ray. I suspect her flank/back pain is related to coughing but consider pyelonephritis given history. 1453 --Labs reviewed: No leukocytosis, lactic acidosis noted. Urinalysis consistent with UTI, suspect pyelonephritis given pain. Plan to initiate treatment with ceftriaxone 1 g IV. Patient has received IV fluid bolus. 1500 -- cxr reviewed and interpreted by me: no definite infiltrate. 1530 --chest x-ray interpreted by radiology: Stable linear area of scarring in the medial aspect of the right lung base. No focal consolidating infiltrates are seen. No acute pulmonary findings. Patient reassessed and vitals improved. Tolerating oral fluid. Plan to treat pyelonephritis with cefpodoxime 200mg BID for 14 days. Disposition decision was made weighing the risks and benefits of hospitalization versus outpatient treatment, the risk for further decompensation, and the patient's wishes. The patient was stable and requested discharge. Prior to discharge, my usual and customary return precautions were reviewed with the patient - this included follow-up instructions and reason to return to the emergency department if condition worsens, does not improve as expected, or other new concerns arise. Lab Data Lab results reviewed: Yes I reviewed the patient's lab results. Labs: 04/12/24 12:50 Urine - Reflex from Ua Urine Culture - Pending Laboratory Tests Range/Units 04/12/24 04/12/24 12:50 13:33 WBC (4.4-10.8) 10^3/uL 8.83 RBC (3.93-5.22) 10^6/uL 4.91 Hgb (11.2-15.7) g/dL 14.6 Hct (36.0-46.0) % 44.7 MCV (80-95) fL 91 MCH (27.0-33.0) pg 29.7 MCHC (32.0-36.0) % 32.7 RDW (11.7-14.6) % 13.3 Plt Count (130-400) 10^3/uL 196 MPV (8.0-11.0) fL 9.6 Immature Gran % % 0.3 Neutrophils % % 48.8 Lymphocytes % % 39.2 Monocytes % % 6.7 Eosinophils % % 4.1 Basophils % % 0.9 Nucleated RBC % (0.0-0.3) % 0.0 Absolute Neutrophils (1.2-6.7) 10^3/uL 4.31 Absolute Lymphocytes (1.2-3.4) 10^3/uL 3.46 H Absolute Monocytes (0.1-0.8) 10^3/uL 0.59 Absolute Eosinophils (0.0-0.7) 10^3/uL 0.36 Absolute Basophils (0.0-0.2) 10^3/uL 0.08 VBG Lactate (0.6-1.4) mmol/L 2.2 H* Sodium (136-145) mmol/L 139 Potassium (3.5-5.1) mmol/L 3.8 Chloride (98-107) mmol/L 101 Carbon Dioxide (21.0-32.0) mmol/L 25.8 Anion Gap (3-11) mmol/L 12.2 H BUN (7-18) mg/dL 16 Creatinine (0.55-1.02) mg/dL 1.6 H Est GFR (CKD-EPI 2020) (mL/min/1.73m2) 36.01 Glucose (74-106) mg/dL 194 H Calcium (8.5-10.1) mg/dL 9.4 Total Bilirubin (0.2-1.0) mg/dL 0.4 AST (15-37) U/L 33 ALT (14-59) U/L 54 Alkaline Phosphatase (46-116) U/L 135 H Total Protein (6.4-8.2) g/dL 8.0 Albumin (3.4-5.0) g/dL 3.9 Urine Color (Yellow) Yellow Urine Clarity (Clear) Cloudy Urine pH (5-8) 5.5 Ur Specific [place] (1.005-1.025) <= 1.005 Urine Protein (Neg-Trace) mg/dL Negative Urine Ketones (Negative) mg/dL Negative Urine Blood (Negative) Trace-intact H Urine Nitrite (Negative) Positive H Urine Bilirubin (Negative) Negative Urine Urobilinogen (Up to 0.2) mg/dL 0.2 Ur Leukocyte Esterase (Negative) Small H Urine RBC (0-2) HPF 0-2 Urine WBC (0-5) HPF >50 H Ur Epithelial Cells (Negative) HPF Few Urine Crystals (Negative) HPF Negative Urine Bacteria (Negative) HPF Many Urine Casts (Negative) LPF Negative Urine Mucus (Negative) Negative Ur Culture Indicated? Yes Urine Glucose (Negative) mg/dL >=1000 H COVID-19 Source Nasopharynx SARS-CoV-2 (PCR) (Negative) Negative Influenza Type A (PCR) (Negative) Negative Influenza Type B (PCR) (Negative) Negative RSV (PCR) (Negative) Negative Quality:SDOH Health Related Social Needs: No Data to Display PFSH All Active Problems (Updated 04/12/24 @ 15:39 by Moses Castillo MD) Elevated blood sugar (Acute) Bronchitis (Acute) Pyelonephritis (Acute) Tobacco abuse (Acute) Urinary obstruction (Acute) Stage 3b chronic kidney disease (CKD) (Acute) Acute cough (Acute) Dysphasia (Acute) Other specified peripheral vascular diseases (Acute) Diabetes mellitus with autonomic neuropathy (Acute) Type 2 diabetes mellitus with peripheral neuropathy (Acute) Lateral epicondylitis, left elbow (Acute) Tubular adenoma (Acute) Emphysema lung (Acute) MEHTA (dyspnea on exertion) (Acute) SOB (shortness of breath) on exertion (Acute) worsening pt continues to smoke Chronic kidney disease (CKD) stage G3b/A1, moderately decreased glomerular filtration rate (GFR) between 30-44 mL/min/1.73 square meter and albuminuria creatinine ratio less than 30 mg/g (Acute) Encounter for screening for malignant neoplasm of colon (Acute) Nausea (Acute) Abdominal pain (Acute) Gastritis (Acute) Esophagitis determined by endoscopy (Acute) Dysphagia (Acute) GERD (gastroesophageal reflux disease) (Acute 04/12/14) Chronic pain (Acute 04/12/14) IBS (Acute) CELIAC DISEASE (Acute) Medical History Non-small cell lung cancer right-pt. states she is in remission since 2019 IBS (irritable bowel syndrome) Generalized anxiety disorder Fibromyalgia Memory loss Recurrent UTI (urinary tract infection) Impingement syndrome of right shoulder Atrophic kidney Adjustment disorder with mixed emotional features Lumbar pain Steatosis, liver Shortness of breath Acute nontraumatic kidney injury Magnesium deficiency Sleeping difficulties Obesity COPD, mild Seborrheic dermatitis Adenocarcinoma Paresthesia Foot pain Hyperparathyroidism due to renal insufficiency History of posttraumatic stress disorder (PTSD) Arm pain, left Knee pain, left Fatigue Chronic lower back pain Tubular adenoma of colon Headache, unspecified Myalgia Personal history of COVID-19 Renal insufficiency Sinusitis Neck mass Abnormal laboratory test Diabetes Trigger middle finger of left hand Lung cancer [place] [facility] [id number], pt states she is in remission Referred otalgia of right ear Chronic sinusitis of both maxillary sinuses Chronic rhinitis Viral syndrome Reflex sympathetic dystrophy Dizziness Tachycardia COPD (chronic obstructive pulmonary disease) Blood glucose elevated Memory loss Elevated LFTs Peripheral neuropathy Dysphagia Depression (04/12/14) Retention of urine (03/05/18) Hypothyroidism, unspecified (04/25/16) Hyperlipidemia (04/12/14) Essential hypertension (04/12/14) Bladder pain (03/05/18) Asymptomatic postmenopausal status (age-related) (natural) (01/30/12) URINARY INCON. RSD INSOMNIA Hypertension HX TOBACCO USE GERD FYBROMYALGIA COUGH CHRONIC PAIN SYN CHRONIC BOWEL DISTURBANCE/CHRONIC CONSTIPATION ANXIETY STATE NOS Surgical History History of colonoscopy with polypectomy (~08/02/22) Trigger finger of right thumb S/P release: 05/02/2021 H/O esophagogastroduodenoscopy (~12/2023) biopsies S/P rotator cuff repair History of esophagogastroduodenoscopy (EGD) Ligation of fallopian tube Rotator Cuff Repair (~2007) Bladder Surgery Sling Procedure tashia Moreno Family History Mother Pneumonia Father Mesothelioma Grandmother Breast cancer MGM Social History Smoking/Tobacco Use Status: Former Tobacco Use Smoking risk assessment performed?: Yes Alcohol Intake: never Drug use: Rarely Substance use type: marijuana Housing: apartment Do you feel safe at home: Yes Do you feel safe in your relationship?: Yes History History 4 Para 2 Hx # Term Pregnancies Multiple births Hx # Pregnancies Ectopic pregnancies AB induced Hx Number of Living Children AB spontaneous
[2024-04-12] MEDS: Lactated Ringers 1,000 ML 1000 ML IV (13:38)
[2024-04-12 13:40] LABS: Lactate 2.2 mmol/L (0.6-1.4)
[2024-04-12 13:41] LABS: Abs Immature Grans 0.03 10^3/uL (0.0-0.06); Absolute Basophil Count 0.08 10^3/uL (0.0-0.2); Absolute Eosinophil Count 0.36 10^3/uL (0.0-0.7); Absolute Lymphocyte Count 3.46 10^3/uL (1.2-3.4); Absolute Monocyte Count 0.59 10^3/uL (0.1-0.8); Absolute Neutrophil Count 4.31 10^3/uL (1.2-6.7); Basophils % 0.9 %; Eosinophils % 4.1 %; HCT 44.7 % (36.0-46.0); HGB 14.6 g/dL (11.2-15.7); Immature Grans % 0.3 %; Lymphocytes % 39.2 %; MCH 29.7 pg (27.0-33.0); MCHC 32.7 % (32.0-36.0); MCV 91 fL (80-95); MPV 9.6 fL (8.0-11.0); Monocytes % 6.7 %; Neutrophils % 48.8 %; Platelet Count 196 10^3/uL (130-400); RBC 4.91 10^6/uL (3.93-5.22); RDW 13.3 % (11.7-14.6); RDW-SD 45.1 fL; WBC 8.83 10^3/uL (4.4-10.8)
[2024-04-12 13:42] LABS: Bacteria Many HPF (Negative); C & S Indicated? Yes; Casts Negative LPF (Negative); Crystals Negative HPF (Negative); Epithelial Cells Few HPF (Negative); Mucus Negative (Negative); RBC 0-2 HPF (0-2); WBC >50 HPF (0-5)
[2024-04-12 13:57] LABS: ALT 54 U/L (14-59); AST 33 U/L (15-37); Albumin 3.9 g/dL (3.4-5.0); Alkaline Phosphatase 135 U/L (46-116); Anion Gap 12.2 mmol/L (3-11); BUN 16 mg/dL (7-18); Bilirubin, Total 0.4 mg/dL (0.2-1.0); CO2 25.8 mmol/L (21.0-32.0); CREATININE 1.6 mg/dL (0.55-1.02); Calcium 9.4 mg/dL (8.5-10.1); Chloride 101 mmol/L (98-107); Estimated GFR 36.01 (mL/min/1.73m2); Glucose 194 mg/dL (74-106); Potassium 3.8 mmol/L (3.5-5.1); Sodium 139 mmol/L (136-145)
[2024-04-12 14:21] LABS: COVID-19 PCR Negative (Negative); Influenza A PCR Negative (Negative); Influenza B PCR Negative (Negative); RSV PCR Negative (Negative)
[2024-04-12 14:23] LABS: Source Nasopharynx
[2024-04-12] MEDS: cefTRIAXone 1 GM/50 ML BAG IVPB (14:45)
--- NOTE | 2024-04-12 15:03 | DI.RAD_ITS ---
Exam(s) XR CHEST 2V PA LATERAL EXAM: XR CHEST 2V PA LATERAL CLINICAL HISTORY: cough TECHNIQUE: 2D digital imaging was performed of the chest. Two images were obtained. PA and lateral views were obtained. COMPARISON: CR,RF RF BARIUM SWALLOW from 01/19/2024 FINDINGS: MEDIASTINUM: Normal. HEART: Normal. PULMONARY VASCULATURE: Normal. LUNGS: Stable linear area of scarring in the medial aspect of the right lung base. No focal consolid ating infiltrates are seen. PLEURAL SPACE: No pleural effusion or pneumothorax. BONE:Within normal limits for the patient's age. There is a stable L1 compression fracture deformity . OTHER FINDINGS:Normal. IMPRESSION: No acute pulmonary findings. DATA REPOSITORY: RADIATION DOSE DELIVERED:
--- NOTE | 2024-04-14 08:11 | NUR.NOTE ---
Accessed chart to look up whether or not on antibiotic for culture result. Nursing Note:
== END 2024-04-12 16:03 | disposition home or self-care (01) ==
PROVIDERS: Emergency Provider Student in an Organized Health Care Education/Training Program; PCP Nurse Practitioner Family
DX: N10 Acute pyelonephritis (principal); J40 Bronchitis, not specified as acute or chronic; E11.65 Type 2 diabetes mellitus with hyperglycemia; I12.9 Hypertensive chronic kidney disease with stage 1 through stage 4 chronic kidney disease, or unspecified chronic kidney disease; E11.22 Type 2 diabetes mellitus with diabetic chronic kidney disease; N18.9 Chronic kidney disease, unspecified; E03.9 Hypothyroidism, unspecified; E78.5 Hyperlipidemia, unspecified; J44.9 Chronic obstructive pulmonary disease, unspecified; Z79.84 Long term (current) use of oral hypoglycemic drugs; Z85.118 Personal history of other malignant neoplasm of bronchus and lung; Z92.21 Personal history of antineoplastic chemotherapy
CPT/HCPCS: 36415; 80053; 87077; 87637; 96361; 96365; 99284; 71046; 81003; 81015; 83605; 85025; 87086; 87186; J0696

== ENCOUNTER 2024-04-27 02:22 | Outpatient (CLI) | payer MEDICAID, SELFPAY ==
[2024-04-27] MEDS: Inhaler, Assist Device 1 EACH MC (09:00)
[2024-04-27] MEDS: Levalbuterol HFA 15 GM INH 4 PUFF IH (09:00)
--- NOTE | 2024-04-29 09:35 | W.PFT ---
Date of service: 04/27/24 Time of Service: 08:02 Pulmonary Function Test Result Indications: COPD Interpretation Spirometry: There is no airflow limitation. No bronchodilator response. Lung Volumes: Normal lung volumes Diffusion Capacity: Decreased diffusion Airway Pressure: Normal airways resistance Impression No airflow obstruction. Isolated diffusion deficit, which may represent emphysema, ILD or pulmonary vascular disease. Clinical Correlation therefore is recommended.
== END 2024-04-27 02:23 | disposition home or self-care (01) ==
LOC: RT 02:22
PROVIDERS: PCP Nurse Practitioner Family; Visit Provider Nurse Practitioner Family
DX: J44.9 Chronic obstructive pulmonary disease, unspecified (principal)
CPT/HCPCS: 94060; 94726; 94729

== ENCOUNTER 2024-06-02 12:30 | Day surgery (SDC) | payer MEDICAID, SELFPAY ==
[2024-06-02 12:35] VITALS: BP 117/74; PULSE 84; RESP 18; TEMP 36.4; O2SAT 97
--- NOTE | 2024-06-02 12:56 | W.PM.DSUDISC ---
Date of service: 06/02/24 Time of Service: 12:56 Discharge Plan Disposition Patient Disposition: Home Condition: Good Discharge Details Reason For Visit: RRF Trigger Release Attending Provider: Alberto Lamb Primary Care Provider: Kathy Wright Home Meds and New Rx's Prescriptions: New acetaminophen 500 mg tablet 1,000 mg PO TID Qty: 90 3RF ibuprofen 600 mg tablet 600 mg PO TID PRN (Reason: pain) Qty: 90 0RF Continued calcium-vitamin D3-vitamin K [Viactiv] 650 mg-12.5 mcg-40 mcg tablet,chewable 1 tab PO DAILY Multivitamin Women 50 Plus 8 mg iron-400 mcg-50 mcg tablet 1 tab PO DAILY Jardiance 25 mg tablet 25 mg PO DAILY Qty: 90 0RF Rx Instructions: increase in dose omeprazole [Prilosec] 20 MG capsule,delayed release(DR/EC) 20 mg PO DAILY Hold Instructions: Resume on 04/27/24. hold while on antibiotic metoprolol tartrate 50 MG tablet 50 mg PO BID atorvastatin 10 mg tablet 10 mg PO DAILY levothyroxine 100 mcg capsule 100 mcg PO DAILY Marijuana Edibles 1 tab PO PRN PRN Nizoral A-D 1 % shampoo 1 applic topical Q3D fluticasone propion-salmeterol [Advair HFA] 230-21 mcg/actuation HFA aerosol inhaler 2 puff inhalation BID lisinopril 10 mg tablet 10 mg PO DAILY Patient Comments: TAKE ONE TABLET BY MOUTH EVERY DAY amitriptyline 25 mg tablet 25 mg PO QHS Anoro Ellipta 62.5-25 mcg/actuation blister with device 1 inh inhalation DAILY (DME) cane Device See Rx Instructions .Route Rx Instructions: As directed clonazepam [Klonopin] 0.5 mg tablet 1 mg PO DAILY PRN (Reason: anxiety) gabapentin 100 mg capsule See Rx Instructions PO .COMPLEX Patient Comments: Rx Instructions: 2 caps every morning and 1 cap at bedtime orally; gabapentin 400 mg capsule 400 mg PO QHS Rx Instructions: With 100 mg cap for a total of 500 mg at bedtime mirtazapine 15 mg tablet 15 mg PO QHS Nizoral A-D 1 % shampoo 1 applic topical .COMPLEX Rx Instructions: 1 applic topically Use twice per week x4 weeks then prn; Apply to scalp in shower - leave on for 3-5 min before washing off. (DME) Personal Catheter Intermittent 14-6 Fr- misc See Rx Instructions .Route Rx Instructions: Use 1 catheter as directed three times per day as needed albuterol sulfate [Ventolin HFA] 90 mcg/actuation HFA aerosol inhaler 2 puff inhalation Q4H PRN (DME) lancets [OneTouch Delica Plus Lancet] 33 gauge misc See Rx Instructions .Route Rx Instructions: Use one lancet daily as directed (DME) 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 meter [OneTouch Verio Flex meter] Misc See Rx Instructions .Route Rx Instructions: As directed (DME) OneTouch Verio test strips Strip See Rx Instructions .Route Rx Instructions: Check blood sugar once daily as directed Discontinued acetaminophen 500 mg capsule 1,000 mg PO Q8H PRN PRNQty: 90 0RF Discharge Instructions Stand Alone Forms: Adonis Dee Finger Release Referrals: Alberto Lamb MD [ [facility] STAFF PHYSICIAN] - Activity:: Activity as Tolerated Remove Dressings/Wound Care:: 48 hours Shower/Bathe:: 48 hours Diet:: As Tolerated Discharge Orders Discharge Orders: Discharge Order (Routine); Ordered 06/02/24 Ordered By: Rj Hager DS: Diagnosis Discharge Diagnosis (1) Trigger finger, right ring finger: Status: Acute
[2024-06-02] MEDS: Sodium Bicarbonate 50 MEQ/50 ML VIAL (13:10)
[2024-06-02] MEDS: Lidocaine 1% Multi-Dose W/EPI 1/100,000 50 ML VIAL (13:10)
[2024-06-02 13:45] VITALS: BP 117/68; PULSE 81; RESP 18; TEMP 36.4; O2SAT 94
--- NOTE | 2024-06-02 14:57 | ROE_ITS ---
Date of service: 06/02/24 Time of Service: 13:00 Operative Note Operative Note DATE OF PROCEDURE: 06/02/24 PRE-OP DIAGNOSIS: Right Middle Finger Trigger Finger POST-OP DIAGNOSIS: same PROCEDURE: Trigger Finger Release - Right Middle Finger SURGEON: Alberto Lamb ANESTHESIA TYPE: Local By Surgeon Refer to Anesthesia Record ESTIMATED BLOOD LOSS: 1 PATHOLOGY: none sent COMPLICATIONS: None Patient was transported to: same day Patient's condition: stable Indications: I have seen Marleni in clinic for symptoms of a trigger finger. The catching, clicking, locking, and pain limited function. The diagnosis of trigger finger was evident. The symptoms had not responded to conservative measures. I discussed trigger finger release with the patient. I reviewed the risks of the procedure to include, but not limited to, bleeding, infection, pain, stiffness, incomplete release, damage to nerves or vessels, continued catching, recurrence. Despite these risks, the patient elected to proceed. Findings: There was a tightened A1 lupe which was released. The flexor tendons were inspected and the patient was able to move the finger without any catching, clicking, or locking. Procedure Description: Marleni was greeted in the preoperative holding area where the correct side was identified and marked. The consent was reviewed with the patient and signed. All questions were answered. She was taken back to the operating room. The patient was placed into the supine position on the operating room table with the right arm on an arm board. All bony prominences were well padded. No prophylactic antibiotics were administered since this was a clean, elective hand surgical case. The right arm was then prepped with Chloraprep and draped in a standard fashion with stockinette and extremity drape. A timeout to confirm correct identity, side and site, procedure, allergies, anesthesia, and medical concerns was performed. The surgical site was marked as a longitudinal incision directly over the A1 lupe of the involved digit. This was confirmed with palpation during finger flexion. This area, overlying the metacarpal head, was then anesthetized with 1% Lidocaine. The patient tolerated this well and once the anesthetic had setu p, the procedure began. A longitudinal incision was made through skin only, approximately 1cm. The deep tissues were dissected bluntly. Once the A1 lupe and flexor tendons were identified the soft tissue including neurovascular structures were retracted medially and laterally. There were no crossing structures over the A1 lupe. The proximal edge of the lupe was identified and the lupe was incised with tenotomy scissors. There was a release of the tendons once this was fully released. The tendons were then removed from the wound and inspected. Excess synovium was resected. The tendons were then returned and the patient was asked to move the finger into deep flexion and back to extension. There was no recreation of the pre-operative symptoms. The hand was then once more inspected for any A0 lupe or area of possible constriction. The wound was then irrigated and the skin was closed with a 4-0 Nylon. This was dressed with gauze and a Conform dressing. The patient tolerated the procedure well and was returned to the Same Day Surgery area in a stable condition suffering no known complication.
== END 2024-06-02 13:45 | disposition home or self-care (01) ==
PROVIDERS: PCP Nurse Practitioner Family; Visit Provider Student in an Organized Health Care Education/Training Program
PROC: (CPT 26055; principal; 2024-06-02 13:45)
DX: M65.341 Trigger finger, right ring finger (principal)
CPT/HCPCS: 26055; J2004

== ENCOUNTER 2024-06-23 12:02 | Outpatient (CLI) | payer MEDICAID, SELFPAY ==
[2024-06-23 12:44] LABS: Anion Gap 8.5 mmol/L (3-11); BUN 14 mg/dL (7-18); CO2 28.5 mmol/L (21.0-32.0); CREATININE 1.4 mg/dL (0.55-1.02); Calcium 10.2 mg/dL (8.5-10.1); Chloride 102 mmol/L (98-107); Estimated GFR 42.27 (mL/min/1.73m2); Glucose 149 mg/dL (74-106); Potassium 4.1 mmol/L (3.5-5.1); Sodium 139 mmol/L (136-145)
== END 2024-06-23 12:03 | disposition home or self-care (01) ==
LOC: LBO 12:04
PROVIDERS: PCP Nurse Practitioner Family; Visit Provider Nurse Practitioner Family
DX: R10.9 Unspecified abdominal pain (principal)
CPT/HCPCS: 36415; 80048

== ENCOUNTER 2024-06-23 12:10 | Outpatient (REF) | payer MEDICAID, SELFPAY | END 2024-06-23 12:11 | disposition home or self-care (01) | LOC: LBN 12:10 | PROVIDERS: PCP Nurse Practitioner Family; Visit Provider Nurse Practitioner Family | DX: R30.0 Dysuria (principal); R10.9 Unspecified abdominal pain | CPT/HCPCS: 87077; 87086; 87186 ==

== ENCOUNTER → 2024-06-24 01:04 | Outpatient (CLI) | payer MEDICAID, SELFPAY ==
--- OUTSIDE RECORDS SUMMARY | 2024-06-24 01:07 | XMS_ITS | Encounter Summary ---
Author Organization [facility] Address [address] [place] [address] Care Team Providers Care Co Supervisor Grounds And Landscape Name Role Phone Alejandro Early MD Primary Care Provider [phone] Encounter Details Date Type Department Care Team (Late st Contact Info) Description 12/22/2007 Results Only [facility] - Maple conversion [address] [place] [address] Thor Mazariegos MD [address] [address] Social History Tobacco Use Types Packs/Day Years Used Date Smoking Tobacco: Never Assessed Sex and Gender Information Value Date Recorded Sex Assigned at Not on file Gender Identity Not on file Sexual Orientation Not on file documented as of this encounter Plan of Treatment Not on file documented as of this encounter Procedures Procedure Name Priority Date/Time Associated Diagnosis Comments CYTOPATHOLOGY Routine 12/22/2007 0:00 EST documented in this encounter Results * CYTOPATHOLOGY (12/22/2007 0:00 EST) Pathology Report: CYTOPATHOLOGY REPORT Reports generated via electronic interface contain original data; however they are lacking the format of the original report. Caution should be taken when reading/interpreti ng unformatted reports. Name: ? AYLIN ALFONSO ? Accession #: ? [id number] : ? 1960 (Age: 47) ??F ?Collect Date: ? 12/22/2007 Location: ? [facility] ? Receive Date: ? 12/22/2007 Provider: ?THOR MAZARIEGOS MD Copy to: ? Specimen/Source: ?ThinPrep Pap Test, Cervix/Endocervix, processed on [employer] ThinPrep Imaging System, with manual evaluation Last Menstrual Period: ? 12/04/07 Menstrual/Pregnanc y Status: ? Irregular Other: ? Additional clinical information: Nl exam HPVA - HPV testing requested if ASC-US on the current ThinPrep Pap test. ? SPECIMEN ADEQUACY ? Satisfactory for Evaluation - transformation zone component present GENERAL CATEGORIZATION ? Negative for Intraepithelial Lesion or Malignancy ? Document reviewed and electronically signed by: ? CRISTINA Wilkerson(ASCP) ? Report Date: ??12/28/2007 11:03 End of Report [facility] 12/22/2007 12/22/2007 Thor Mazariegos MD PATHOLOGY ORDERABLES Performing Organization Address City/State/[facility] Co de Phone Number [facility] [address] [place] [address] documented in this encounter Visit Diagnoses Not on filedocumented in this encounter Care Teams Co Supervisor Grounds And Landscape Relationship Specialty Start Date End Date Alejandro Early MD [address] [place] [address] [place] [address] PCP - General 01/29/10 01/15/11 documented as of this encounter
--- OUTSIDE RECORDS SUMMARY | 2024-06-24 01:07 | XMS_ITS | Encounter Summary ---
[place] [address] Care Team Providers Care Director Life Insurance Name Role Phone GerardoKathy nicolas Butch DANIEL Primary Care Provider [phone] Encounter Details Date Type Department Care Team (Late st Contact Info) Description 01/19/2024 Telephone Hematology [place] [address] Flo Miller RN Social History Tobacco Use Types Packs/Day Years Used Date Smoking Tobacco: Every Day Cigarettes 0.5 43.7 Started: 1975; Last attempted to quit: 08/02/2019 Smokeless Tobacco: Former Quit: 07/02/2019 Comments:1 or 2 a week Alcohol Use Standard Drinks/Week Comments Never 0 (1 standard drink = 0.6 oz pur e alcohol) Sex and Gender Information Value Date Recorded Sex Assigned at Not on file Gender Identity Not on file Sexual Orientation Not on file documented as of this encounter Miscellaneous Notes * Telephone Encounter - Flo Miller RN - 01/19/2024 1:17 PM EST Lab in chart and message send to Kayla Garza:I think she's supposed to see us this month for telehealth visit to discuss labs and CT scam documented in this encounter Plan of Treatment Not on file documented as of this encounter Procedures Procedure Name Priority Date/Time Associated Diagnosis Comments CBC WITH DIFF EXTERNAL LAB PANEL Routine 01/19/2024 COMPREHENSIVE METABOLIC PANEL (NON-FASTING) Routine 01/19/2024 documented in this encounter Results * External CBC Labs (01/19/2024) WBC 7.78 RBC 4.90 Hemoglobin 14.1 Hematocrit 43.5 Platelets 244 Neutrophil Abs 4.41 01/19/2024 Historical Provider POINT OF CARE YANI T ORDERABLES * (ABNORMAL) Comprehensive metabolic panel (non-fasting) (01/19/2024) Glucose Lvl 141 BUN 12 Creatinine 1.4(A) 0.55 - 1.02 Sodium 142 Potassium 4.2 Chloride 104 Calcium 10.0 Albumin 3.5 Total Bilirubin 0.5 Alk Phos 105 AST 26 ALT 31 Blood 01/19/2024 Historical Provider CHEMISTRY ORDERAB LES documented in this encounter Visit Diagnoses Not on filedocumented in this encounter Care Teams Director Life Insurance Relationship Specialty Start Date End Date Kathy Wright APRN PCP - General Family Medicine 04/22/19 documented as of this encounter
--- OUTSIDE RECORDS SUMMARY | 2024-06-24 01:07 | XMS_ITS | Encounter Summary ---
Author Organization [facility] Address [address] [place] [address] Care Team Providers Care Filtration Plant Mechanic Name Role Phone Anahy Viveros NP Primary Care Provider [phone] Encounter Details Date Type Department Care Team (Late st Contact Info) Description 02/12/2013 Results Only [facility] [address] [place], [place] [address] Marcela Arceo, [address] DEPARTMENT [address] [place] [address] Social History Tobacco Use Types Packs/Day Years Used Date Smoking Tobacco: Never Assessed Sex and Gender Information Value Date Recorded Sex Assigned at Not on file Gender Identity Not on file Sexual Orientation Not on file documented as of this encounter Plan of Treatment Not on file documented as of this encounter Procedures Procedure Name Priority Date/Time Associated Diagnosis Comments PAP TEST- RESULT ONLY Routine 02/12/2013 0:00 EDT documented in this encounter Results * PAP TEST- RESULT ONLY (02/12/2013 0:00 EDT) Pathology Report: CYTOPATHOLOGY REPORT Reports generated via electronic interface contain original data; however they are lacking the format of the original report. Caution should be taken when reading/interpreti ng unformatted reports. Name: ? KADEN AYLIN ? Accession #: ? [id number] ? : ? 1960 (Age: 52) ??F ?Collect Date: ? 02/12/2013 ? Location: ? [facility] ? Receive Date: ? 02/15/2013 ? Provider: MARCELA ARCEO [facility] Copy to: ? Final Report SPECIMEN ADEQUACY ? Satisfactory for Evaluation - transformation zone component present GENERAL CATEGORIZATION ? Negative for Intraepithelial Lesion or Malignancy INTERPRETATION ? Reactive cellular changes associated with inflammation present (includes repair). Last Menstrual Period: 2008 Hormonal/Contracep tive status: Tubal ligation: bilateral Specimen/Source: ??Pap Test, Cervix/Endocervix, ThinPrep Imaging System with manual evaluation Document reviewed and electronically signed by: ? STUART ALICEA MD ? Report ??Date: 02/17/2013 14:59 HPV with Pap Test ? Date Ordered: ? 02/17/2013 ? Status: ?? Signed Out ?Date Complete: ? 02/19/2013 ? By: ??System Interface ? Date Reported: ? 02/19/2013 ? Interpretation RESULT: Negative for HPV. No E6 or E7 mRNA is detected from HPV types 16,18,31,33,35, 39,45,51,52,56,58, 59,66, and 68 by community engagement coordinator mediated amplification. Comments Document reviewed and electronically signed by: ? System Interface ? Report date: 02/19/2013 By the signature above, the attending physician certifies that he/she has personally conducted a gross and/or microscopic examination of the described specimens and rendered or confirmed the above diagnosis. End of Report [facility] 02/12/2013 02/15/[address] DEPARTMENT PATHOLOGY ORDERABLES [facility] [address] [place] [address] documented in this encounter Visit Diagnoses Not on filedocumented in this encounter Care Teams Filtration Plant Mechanic Relationship Specialty Start Date End Date Anahy Viveros, [facility] [address] [place] [address] PCP - General 01/16/11 documented as of this encounter
--- OUTSIDE RECORDS SUMMARY | 2024-06-24 01:07 | XMS_ITS | Encounter Summary ---
Author Organization [facility] Address [address] [place] [address] Care Team Providers Care Assembler Installer Structures Name Role Phone Unavailable Primary Care Provider Unavailabl e Encounter Details Date Type Department Care Team (Late st Contact Info) Description 01/03/2009 Before PRISM Converted Visit (Maple) [facility] - Maple conversion [address] [place] [address] Marcela Areco, [facility] [address] [place] [address] Social History Tobacco Use Types Packs/Day Years Used Date Smoking Tobacco: Never Assessed Sex and Gender Information Value Date Recorded Sex Assigned at Not on file Gender Identity Not on file Sexual Orientation Not on file documented as of this encounter Plan of Treatment Not on file documented as of this encounter Procedures Procedure Name Priority Date/Time Associated Diagnosis Comments CYTOPATHOLOGY Routine 01/03/2009 0:00 EST documented in this encounter Results * CYTOPATHOLOGY (01/03/2009 0:00 EST) Pathology Report: CYTOPATHOLOGY REPORT ? Reports generated via electronic interface contain original data; ? however they are lacking the format of the original report. ? Caution should be taken when reading/interpreti ng unformatted reports. ? Name: ? AYLIN ALFONSO ? Accession #: ? [id number] ? : ? 1960 (Age: 48) ??F ?Collect Date: ? 01/03/2009 ? Location: ? [facility] ? Receive Date: ? 01/04/2009 ? Provider: ?MARCELA PRIYANKA AIRPORT RAMP SUPERVISOR ? Copy to: ? Specimen/Source: ?Pap Test, Cervix/Endocervix, ThinPrep Imaging System ? with manual evaluation ? Last Menstrual Period: ? 08/08 ? Previous Gynecologic Pathology: ? Benign cellular changes: 2001 ? Other: ? HPVA - HPV testing requested if ASC-US on the current ThinPrep Pap test. ? SPECIMEN ADEQUACY ? Satisfactory for Evaluation ? - transformation zone component present ? GENERAL CATEGORIZATION ? Negative for Intraepithelial Lesion or Malignancy ? Document reviewed and electronically signed by: ? Christine Condelogg, CT(ASCP) ? Report Date: ??01/10/2009 15:08 ? End of Report ? [facility] 01/03/2009 01/04/2009 Marcela Arceo AIRPORT RAMP SUPERVISOR PATHOLOGY ORDERABLES [facility] [address] [place] [address] documented in this encounter Visit Diagnoses Not on filedocumented in this encounter
--- OUTSIDE RECORDS SUMMARY | 2024-06-24 01:07 | XMS_ITS | Encounter Summary ---
Author Organization [facility] Address [facility] [place] [address] Care Team Providers Care Manager Of International Name Role Phone Kathy Wright APRN Primary Care Provider [phone] Encounter Details Date Type Department Care Team (Latest Contact Info) Description 01/28/2024 Travel Social History Tobacco Use Types Packs/Day Years [...] on file documented as of this encounter Visit Diagnoses Not on filedocumented in this encounter Care Teams Manager Of International Relationship Specialty Start Date End Date Kathy Wright APRN PCP - General Family Medicine 04/22/19 documented as of this encounter
--- OUTSIDE RECORDS SUMMARY | 2024-06-24 01:07 | XMS_ITS | Encounter Summary ---
Author Organization [facility] Address [facility] [place] [address] Care Team Providers Care Case Picker Name Role Phone Kathy Wright MIRROR FINISHING MACHINE OPERATOR Primary Care Provider Reason for Referral * Diagnostic Test (Routine) - Authorized Specialty Diagnoses / Procedures Referred By Janie cassidy Referred To Contact Radiology Diagnoses Non-small cell lung cancer, right Procedures CT Chest wo Contrast (Generic) Toño West MD [facility] [address] Referral ID Status Reason Start Date Expiration Date Visits Requested Visits Authorized [id number] Authorized Specialty Service Requested 12/08/2023 06/07/2025 1 1 Encounter Details Date Type Department Care Team (Late st Contact Info) Description 12/08/2023 Orders Only Hematology [place] [address] Toño West MD [facility] MEDICAL ONCOL[facility]Y [place], [place] [id number] Non-small cell lung cancer, right (Primary Dx) Social History Tobacco Use Types Packs/Day Years [...] as of this encounter Plan of Treatment Scheduled Orders Name Type Priority Associated Diagnoses Orde r Schedule Lactate Dehydrogenase Lab Routine Non-small cell lung cancer, right Expected: 12/22/2023 (Approximate), Expires: 06/22/2024 CBC (with Diff) Lab Routine Non-small cell lung cancer, right Expected: 12/22/2023 (Approximate), Expires: 06/22/2024 Comprehensive metabolic panel (non-fasting) Lab Routine Non-small cell lung cancer, right Expected: 12/22/2023 (Approximate), Expires: 06/22/2024 CT Chest wo Contrast (Generic) Imaging Routine Non-small cell lung cancer, right Expected: 12/22/2023 (Approximate), Expires: 12/08/2024 documented as of this encounter Visit Diagnoses Diagnosis Non-small cell lung cancer, right- Primary documented in this encounter Care Teams Case Picker Relationship Specialty Start Date End Date Kathy Wright APRN PCP - General Family Medicine 04/22/19 documented as of this encounter
--- OUTSIDE RECORDS SUMMARY | 2024-06-24 01:07 | XMS_ITS | Encounter Summary ---
Author Organization [facility] Address [address] [place] [address] Care Team Providers Care Diesel Fleet Mechanic Name Role Phone Anahy Xiao NP Primary Care Provider [phone] Encounter Details Date Type Department Care Team (Late st Contact Info) Description 04/25/2016 Results Only [facility] [phone] Marcela Arceo, [facility] [address] [place] [address] Social History Tobacco Use Types Packs/Day [...] Diagnosis Comments PAP TEST- RESULT ONLY Routine 04/25/2016 0:00 EDT documented in this encounter Results * PAP TEST- RESULT ONLY (04/25/2016 0:00 EDT) Pathology Report: CYTOPATHOLOGY REPORT Reports generated via electronic interface contain original data; however they are lacking the format of the original report. Caution should be taken when reading/interpreti ng unformatted reports. Name: ? GWEN ALFONSOIE ? Accession #: ? [id number] ? : ? 1960 (Age: 55) ??F ?Collect Date: ? 04/25/2016 ? Location: ? [facility] ? Receive Date: ? 04/26/2016 ? Provider: MARCELA ARCEO WINDOWS SERVER ARCHITECT Copy to: ANAHY XIAO ORNAMENTAL IRON ERECTOR ? Final Report SPECIMEN ADEQUACY ? Satisfactory for Evaluation - transformation zone component present GENERAL CATEGORIZATION ? Negative for Intraepithelial Lesion or Malignancy ?? Last Menstrual Period: 2003 Specimen/Source: ??Pap Test, Cervix/Endocervix, ThinPrep Imaging System with manual evaluation Document reviewed and electronically signed by: ? Patricia Sampson, [facility](ASCP) ? Report ??Date: 05/07/2016 09:42 HPV with Pap Test ? Date Ordered: ? 05/07/2016 ? Status: ?? Signed Out ?Date Complete: ? 05/09/2016 ? By: ??System Interface ? Date Reported: ? 05/09/2016 ? Interpretation RESULT: Negative for HPV. No E6 or E7 mRNA is detected from HPV types 16,18,31,33,35, 39,45,51,52,56,58, 59,66, and 68 by experimental flight test mechanic mediated amplification. Comments Document reviewed and electronically signed by: ? System Interface ? Report date: 05/09/2016 By the signature above, the attending physician certifies that he/she has personally conducted a gross and/or microscopic examination of the described specimens and rendered or confirmed the above diagnosis. End of Report [facility] 04/25/2016 04/26/2016 Marcela Arceo WINDOWS SERVER ARCHITECT PATHOLOGY ORDERABLES [facility] [address] [place] [address] documented in this encounter Visit Diagnoses Not on filedocumented in this encounter Care Teams Diesel Fleet Mechanic Relationship Specialty Start Date End Date Anahy Xiao, [facility] [address] [place], [place] [address] PCP - General 01/16/11 documented as of this encounter
--- OUTSIDE RECORDS SUMMARY | 2024-06-24 01:07 | XMS_ITS | Encounter Summary ---
Author Organization [facility] Address [address] [place] [address] Care Team Providers Care Real Estate Analyst Name Role Phone Alejandro Early MD Primary Care Provider [phone] Encounter Details Date Type Department Care Team (Late st Contact Info) Description 12/04/2006 Results Only [facility] - Maple conversion [address] [place] [address] Thor Mazariegos MD [address] [address] Social History Tobacco Use Types [...] Priority Date/Time Associated Diagnosis Comments CYTOPATHOLOGY Routine 12/04/2006 0:00 EST documented in this encounter Results * CYTOPATHOLOGY (12/04/2006 0:00 EST) Pathology Report: CYTOPATHOLOGY REPORT Reports generated via electronic interface contain original data; however they are lacking the format of the original report. Caution should be taken when reading/interpreti ng unformatted reports. Name: ? AYLIN ALFONSO ? Accession #: ? [id number] : ? 1960 (Age: 46) ??F ?Collect Date: ? 12/04/2006 Location: ? [facility] ? Receive Date: ? 12/05/2006 Provider: ?THOR MAZARIEGOS MD Copy to: ? [facility] ?[address] ?[place], [place] [address] ? Specimen/Source: ?ThinPrep Pap Test, Cervix/Endocervix, processed on [employer] ThinPrep Imaging System, with manual evaluation Last Menstrual Period: ? 11/23/06 ? SPECIMEN ADEQUACY ? Satisfactory for Evaluation - transformation zone component present GENERAL CATEGORIZATION ? Negative for Intraepithelial Lesion or Malignancy ? Document reviewed and electronically signed by: ? STIVEN Morrow(ASCP) ? Report Date: ??12/08/2006 12:24 End of Report [facility] 12/04/2006 12/05/2006 Thor Mazariegos MD PATHOLOGY ORDERABLES [facility] [address] [place] [address] documented in this encounter Visit Diagnoses Not on filedocumented in this encounter Care Teams Real Estate Analyst Relationship Specialty Start Date End Date Alejandro Early MD [address] [place] [address] [place] [address] PCP - General 01/29/10 01/15/11 documented as of this encounter
--- OUTSIDE RECORDS SUMMARY | 2024-06-24 01:07 | XMS_ITS | Encounter Summary ---
Author Organization [facility] Address [address] [place] [address] Care Team Providers Care Dispatcher Refinery Name Role Phone Anahy Viveros RN GYN Primary Care Provider [phone] Encounter Details Date Type Department Care Team (Latest Contact Info) Description 02/23/2019 14:52 EDT - 02/23/2019 23:59 EDT Hospital Encounter [address] [address] Unknown, Provider, Discharge Disposition: Home or Self Care Social History Tobacco Use Types Packs/Day Years Used Date Smoking Tobacco: Never Assessed Sex and Gender Information Value Date Recorded Sex Assigned at Not on file Gender Identity Not on file Sexual Orientation Not on file documented as of this encounter Discharge Disposition Disposition Code Departure Means Destination Home or Self Longterm documented in this encounter Plan of Treatment Not on file documented as of this encounter Visit Diagnoses Not on filedocumented in this encounter Care Teams Dispatcher Refinery Relationship Specialty Start Date End Date Anahy Viveros NP [facility] [address] [place] [address] PCP - General 01/16/11 documented as of this encounter
--- OUTSIDE RECORDS SUMMARY | 2024-06-24 01:07 | XMS_ITS | Encounter Summary ---
Author Organization [facility] Address [address] [place] [address] Care Team Providers Care Oil Rigger Name Role Phone Anahy Viveros NP Primary Care Provider [phone] Encounter Details Date Type Department Care Team (Late st Contact Info) Description 02/04/2023 Lab Requisition [facility] Pathology & Laboratory Medicine - [address] [id number] Outr Resulting Lab, Provider Social History Tobacco Use Types Packs/Day Years Used Date Smoking Tobacco: Never Assessed Interpersonal Safety Answer Date Record ed Physically Hurt Never 07/02/2020 Verbally Threaten Not on file 07/02/2020 Sex and Gender Information Value Date Recorded Sex Assigned at Not on file Gender Identity Not on file Sexual Orientation Not on file documented as of this encounter Plan of Treatment Not on file documented as of this encounter Procedures Procedure Name Priority Date/Time Associated Diagnosis Comments HOLD GREEN TOP Today 02/04/2023 11:15 EST CALCIUM, IONIZED Today 02/04/2023 11:1 5 EST documented in this encounter Results * HOLD GREEN TOP (02/04/2023 11:15 EST) Hold Hold 02/04/2023 18:15 EST [facility] Blood VENOUS BLOOD / Unknown 02/04/2023 11:15 EST 02/04/2023 17:01 EST Provider Outr Resulting Lab LAB INFO SER VICE AND SUPPORT & PHONE RESULT [facility] [address] [place] [address] * CALCIUM, IONIZED (02/04/2023 11:15 EST) Calcium, Ionized 1.14 1.14 - 1.35 mmol/L 02/04/2023 17:16 EST [facility] Comment: Testing performed on heparinized plasma. Results may be biased 5% lower than that of whole blood. Blood VENOUS BLOOD / Unknown 02/04/2023 11:15 EST 02/04/2023 17:01 EST Provider Outr Resulting Lab CHEMISTRY & BLOOD GAS ORDERABLES Performing Organization Address [facility] Co de Phone Number [facility] [address] [place] [address] documented in this encounter Visit Diagnoses Not on filedocumented in this encounter Care Teams Oil Rigger Relationship Specialty Start Date End Date Anahy Viveros NP [facility] [address] [place] [address] PCP - General 01/16/11 documented as of this encounter
--- OUTSIDE RECORDS SUMMARY | 2024-06-24 01:07 | XMS_ITS | Encounter Summary ---
[place] [address] Care Team Providers Care Nurse Technician Name Role Phone Kathy Wright Butch DANIEL Primary Care Provider [phone] Encounter Details Date Type Department Care Team (Latest Contact Info) Description 08/12/2023 12:30 PM EDT Laboratory Appointment Lab [address] [place] [address] Chronic kidney disease, unspecified CKD stage Social History Tobacco Use Types Packs/Day Years [...] Procedure Name Priority Date/Time Associated Diagnosis Comments HC IMMUNOGLOBULIN FREE LIGHT CHAINS, SERUM Routine 08/12/2023 1:01 PM EDT Chronic kidney disease, unspecified CKD stage HC PARATHYROID HORMONE(PTH INTACT Routine 08/12/2023 1:01 PM EDT Chronic kidney disease, unspecified CKD stage HEMOGRAM STAT 08/12/2023 1:01 PM EDT Chronic kidney disease, unspecified CKD stage DIFFERENTIAL, AUTOMATED STAT 08/12/20 23 1:01 PM EDT Chronic kidney disease, unspecified CKD stage VITAMIN D, 25-HYDROXY Routine 08/12/2023 1:01 PM EDT HC CBC,PLT & AUTO DIFF STAT 3 1:01 PM EDT Chronic kidney disease, unspecified CKD stage HC SERUM PROT. ELECTROPHORESIS Routine 08/12/2023 1:01 PM EDT Chronic kidney disease, unspecified CKD stage HC PHOSPHORUS, SERUM Routine 08/12/2023 1:01 PM EDT Chronic kidney disease, unspecified CKD stage HC MAGNESIUM, SERUM Routine 08/12/2023 1 :01 PM EDT Chronic kidney disease, unspecified CKD stage GAMMA GT Routine 08/12/2023 1:01 PM EDT HC VENIPUNCTURE Routine 08/12/2023 1:01 PM EDT Chronic kidney disease, unspecified CKD stage documented in this encounter Results * (ABNORMAL) Gamma GT (08/12/2023 1:01 PM EDT) GGT 51(H) 5 - 36 unit/L [facility] Blood Venous Draw / Unknown 08/12/2023 1:01 PM EDT 08/12/2023 1:31 PM EDT Narrative Resulting Agency Comment Spec In Lab Lico Cagle MD CHEMISTRY ORD ERABLES [facility] [place] [address] * Vitamin D, 25-Hydroxy (08/12/2023 1:01 PM EDT) 25-OH Vit D Total 31 21 - 100 ng/mL [facility] 25-OH Vit D Interp Sufficient [facility] Blood Venous Draw / Unknown 08/12/2023 1:01 PM EDT 08/12/2023 1:31 PM EDT Narrative Resulting Agency Comment Spec In Lab Lico Cagle MD CHEMISTRY ORD ERABLES [facility] [place] [address] * (ABNORMAL) Differential, Automated (08/12/2023 1:01 PM EDT) Neutrophils % 53.3 % [facility] Neutr Abs (ANC) 6.09 1.70 - 6.10 x10(3)/[facility] Lymphocytes % 34.5 % [facility] Lymphocytes Abs 3.9(H) 0.9 - 3.2 x10(3)/[facility] Monocytes % 6.3 % [facility] Monocyte Abs 0.7 0.3 - 0.9 x10(3)/[facility] Eosinophils % 4.5 % [facility] Eosinophils Abs 0.5(H) 0.0 - 0.4 x10(3)/[facility] Basophils % 0.9 % [facility] Basophils Abs 0.1 0.0 - 0.1 x10(3)/[facility] Immature Gran % 0.50 % [facility] Comment: Immature granulocytes(IG's)percentage and absolute count will include metamyelocytes, myelocytes, and promyelocytes. Blood smears from CBCs yielding IG's will be scanned manually for concordance. If this scan disagrees with the automated IG or if promyelocytes are noted, a manual differential will be performed. Wilma Gran Abs 0.06(H) 0.00 - 0.04 x10(3)/ L [facility] Blood 08/12/2023 1:01 PM EDT 08/12/2023 1:24 PM EDT Narrative Resulting Agency Comment Spec In Lab Lico Cagle MD HEMATOLOGY OR DERABLES [facility] [place] [address] * (ABNORMAL) Hemogram (08/12/2023 1:01 PM EDT) WBC 11.4(H) 4.0 - 9.5 x10(3)/[facility] RBC 4.56 4.00 - 5.21 x10(6)/[facility] Hemoglobin 13.8 11.7 - 15.5 g/dL [facility] Hematocrit 42.9 35.7 - 45.8 % [facility] MCV 94.1 82.6 - 94.4 [facility] MCH 30.3 27.1 - 32.0 pg [facility] MCHC 32.2 31.7 - 35.0 g/dL [facility] Platelets 261 145 - 357 x10(3)/[facility] RDWSD 48.3(H) 37.0 - 46.0 [facility] RDWCV 14.1 11.5 - 14.1 % [facility] MPV 9.9 7.6 - 12.9 [facility] nRBC % Auto 0.0 % [facility] nRBC Abs Auto 0.000 0.000 - 0.000 x10(3)/[facility] Blood 08/12/2023 1:01 PM EDT 08/12/2023 1:24 PM EDT Narrative Resulting Agency Comment Spec In Lab Lico Cagle MD HEMATOLOGY OR DERABLES [facility] [place] [address] * (ABNORMAL) PTH (08/12/2023 1:01 PM EDT) Pathologist [facility] PTH 117(H) 15 - 65 pg/mL [facility] Blood 08/12/2023 1:01 PM EDT 08/12/2023 1:24 PM EDT Narrative Resulting Agency Comment Spec In Lab Samuel Little MD CHEMISTRY ORDERABLES Performing Organization Address [facility] Co de Phone Number [facility] [place] [address] * (ABNORMAL) Free Light Chains, Serum (08/12/2023 1:01 PM EDT) [facility] [place] Free Light Chain 3.58(H) 0.72 - 2.75 mg/dL [facility] Lambda Free Light Chain 2.32(H) 0.57 - 2.15 mg/dL [facility] [place] Lambda FLC Ratio 1.5431 0.4000 - 2.5800 [facility] Blood 08/12/2023 1:01 PM EDT 08/12/2023 1:25 PM EDT Narrative Resulting Agency Comment Spec In Lab Samuel Little MD CHEMISTRY ORDERABLES Performing Organization Address [facility]/ZIP Co de Phone Number [facility] [place] [address] * Protein Electrophoresis, serum (08/12/2023 1:01 PM EDT) Pathologist [facility] Total Prot Elec 6.8 6.1 - 8.0 g/dL [facility] Albumin Elect 4.22 3.20 - 5.20 g/dL [facility] Alpha1-Globul in 0.20 0.10 - 0.30 g/dL [facility] Alpha2-Globul in 0.79 0.40 - 0.90 g/dL [facility] Beta Globulin 0.82 0.50 - 1.00 g/dL [facility] Gamma Globulin 0.77 0.50 - 1.30 g/dL [facility] M1 Band None Detected None Detected [facility] Blood 08/12/2023 1:01 PM EDT 08/12/2023 1:25 PM EDT Narrative Resulting Agency Comment Spec In Lab Samuel Little MD CHEMISTRY ORDERABLES [facility] [place] [address] * Phosphorus (08/12/2023 1:01 PM EDT) Pathologist [facility] Phosphorus 3.2 2.5 - 4.5 mg/dL [facility] Blood 08/12/2023 1:01 PM EDT 08/12/2023 1:25 PM EDT Narrative Resulting Agency Comment Spec In Lab Samuel Little MD CHEMISTRY ORDERABLES Performing Organization Address City/[facility]/ZIP Co de Phone Number [facility] [place] [address] * Magnesium (08/12/2023 1:01 PM EDT) [facility] Magnesium 0.86 0.69 - 1.07 mmol/L [facility] Blood 08/12/2023 1:01 PM EDT 08/12/2023 1:25 PM EDT Narrative Resulting Agency Comment Spec In Lab Samuel Little MD CHEMISTRY ORDERABLES Performing Organization Address City/[facility]/ZIP Co de Phone Number [facility] [place] [address] * (ABNORMAL) Comprehensive metabolic panel (non-fasting) (08/12/2023 1:01 PM EDT) [facility] Glucose Lvl 154 65 - 199 mg/dL [facility] Comment:Diabetes: >=200 mg/d L plus symptoms BUN 15 8 - 18 mg/dL [facility] Creatinine 1.36(H) 0.70 - 1.20 mg/dL [facility] Sodium 141 135 - 145 mmol/L [facility] Potassium 4.6 3.5 - 5.0 mmol/L [facility] Comment: Please note: ??Patients with WBC >100,000 may have falsely elevated Potassium levels. ??For accurate Potassium quantification in these patients send serum separator tube (gold top) for subsequent determinations. ??Contact the Clinical Chemistry Laboratory if there are any questions. Chloride 103 98 - 107 mmol/L [facility] CO2 26 22 - 31 mmol/L [facility] Anion Gap 12 5 - 15 mmol/L [facility] Calcium 9.5 8.5 - 10.5 mg/dL [facility] Total Protein 7.1 6.1 - 8.0 g/dL [facility] Albumin 4.2 3.2 - 5.2 g/dL [facility] AST 33(H) 0 - 30 unit/L [facility] ALT 36(H) 0 - 30 unit/L [facility] Alk Phos 130(H) 35 - 105 unit/L [facility] Total Bilirubin 0.2 0.2 - 1.3 mg/dL [facility] Estimated GFR 44(L) >=60 mL/min/1. 73 m?? [facility] Comment: This patient's estimated GFR was calculated using the 2020 CKD-EPI equation. The estimated GFR can vary from the measured GFR by up to 30% in the absence of rapidly changing kidney function. Assessment of the estimated GFR is not appropriate when creatinine concentrations are rapidly changing. For clinical situations in which a more precise estimate of GFR is necessary, consider alternative methods of GFR estimation such as a 24-hour urine creatinine clearance. Assignment of CKD stage 1-5 for patients with an eGFR near the transition point between stages may be based on clinical assessment of muscle mass and symptoms in addition to eGFR. Blood 08/12/2023 1:01 PM EDT 08/12/2023 1:25 PM EDT Narrative Resulting Agency Comment Spec In Lab Samuel Little MD CHEMISTRY ORDERABLES Performing Organization Address City/State/[facility] Co de Phone Number [facility] [place] [address] documented in this encounter Visit Diagnoses Diagnosis Chronic kidney disease, unspecified CKD stage documented in this encounter Care Teams Nurse Technician Relationship Specialty Start Date End Date Kathy Wright APRN PCP - General Family Medicine 04/22/19 documented as of this encounter
--- OUTSIDE RECORDS SUMMARY | 2024-06-24 01:07 | XMS_ITS | Encounter Summary ---
Author Organization [facility] Address [address] [place] [address] Care Team Providers Care Warp Tester Name Role Phone Alejandro Early MD Primary Care Provider [phone] Encounter Details Date Type Department Care Team (Late st Contact Info) Description 07/09/2001 Results Only [facility] [address] [place] [address] Thor Mazariegos MD [address] [facility] [address] [address] [address] Social History Tobacco Use Types [...] Priority Date/Time Associated Diagnosis Comments CYTOPATHOLOGY Routine 07/09/2001 0:00 EDT documented in this encounter Results * CYTOPATHOLOGY (07/09/2001 0:00 EDT) Pathology Report: CYTOPATHOLOGY REPORT Reports generated via electronic interface contain original data; however they are lacking the format of the original report. Caution should be taken when reading/interpreti ng unformatted reports. Name: ? AYLIN ALFONSO ? Accession #: ? [id number] : ? 1960 (Age: 40) ??F ?Collect Date: ? 07/09/2001 Location: ? [facility] ? Receive Date: ? 07/13/2001 Provider: ?THOR MAZARIEGOS MD Copy to: ? Specimen/Source: ?ThinPrep Pap Test, Cervix/Endocervix Last Menstrual Period: ? 06/14/01 Menstrual/Pregnanc y Status: ? Irregular ? SPECIMEN ADEQUACY ? Satisfactory for evaluation. GENERAL CATEGORIZATION ? Benign Cellular Changes DESCRIPTIVE DIAGNOSIS ? Fungal organisms present morphologically consistent with Anuradha species. ? Document reviewed and electronically signed by: ? CRISTINA Neff(ASCP) ? Report Date: ??07/20/2001 09:59 End of Report [facility] 07/09/2001 07/13/2001 Thor Mazariegos MD PATHOLOGY ORDERABLES Performing Organization Address City/State/[facility] Co de Phone Number [facility] [address] [place] [address] documented in this encounter Visit Diagnoses Not on filedocumented in this encounter Care Teams Warp Tester Relationship Specialty Start Date End Date Alejandro Early MD [address] [place] [address] [place] [address] PCP - General 01/29/10 01/15/11 documented as of this encounter
--- OUTSIDE RECORDS SUMMARY | 2024-06-24 01:07 | XMS_ITS | Encounter Summary ---
Author Organization [facility] Address [address] [place] [address] Care Team Providers Care Architecture Intern Name Role Phone Felice Anahy Santa MIRANDA Primary Care Provider [phone] Encounter Details Date Type Department Care Team (Late st Contact Info) Description 08/02/2011 Results Only [facility] Laboratory Services - [facility] ([facility] [address] [place], [place] [address] Flori Edwards, [address] [facility] [address] [place], [place] [id number] Social History Tobacco Use Types Packs/Day Years Used Date Smoking Tobacco: Never Assessed Sex and Gender Information Value Date Recorded Sex Assigned at Not on file Gender Identity Not on file Sexual Orientation Not on file documented as of this encounter Plan of Treatment Not on file documented as of this encounter Procedures Procedure Name Priority Date/Time Associated Diagnosis Comments SURGICAL PATHOLOGY Routine 08/02/2011 0:00 EDT documented in this encounter Results * SURGICAL PATHOLOGY (08/02/2011 0:00 EDT) Pathology Report: SURGICAL PATHOLOGY REPORT ? Reports generated via electronic interface contain original data; ? however they are lacking the format of the original report. ? Caution should be taken when reading/interpreti ng unformatted reports. ? Name: ? KADEN, AYLIN ? Accession #: ? [id number] ? : ? 1960 (Age: 50) ??F ? Collect Date: ? 08/02/2011 ? Location: ? [facility] ? Receive Date: ? 08/02/2011 ? Provider: FLORI EDWARDS DO ? Copy to: ANAHY XIAO COMMERCIAL DIVER ? Final Pathologic Diagnosis: ? A. ?Small bowel, duodenum, biopsies: ? 1. ?Duodenal mucosa without significant abnormality. ? 2. ? Detached superficial fragment of gastric foveolar mucosa. ??See comment. ?? B. ?Stomach, antrum, biopsies: ? 1. ?Antral mucosa without significant abnormality. ? 2. ? No Helicobacter pylori-like microorganisms identified on H&E-stained ? sections. ? C. ?Esophagus, distal, biopsies: ? 1. ?Squamocolumnar junctional mucosa with mild chronic inflammation and reactive epithelial changes. ? 2. ? Negative for intestinal metaplasia/dysplas ia. ? D. ?Esophagus, mid, biopsies: ? 1. ?Squamous mucosa without significant abnormality. ? E. ?Esophagus, proximal, biopsies: ? 1. ?Squamous mucosa without significant abnormality. ? Comment: ? The detached superficial fragment may represent either true gastric surface metaplasia of the duodenum or a contaminant antral mucosa ??from Part B. ? Document reviewed and electronically signed by: ? LUZ S TREE MD ? Report ??Date: 08/08/2011 15:51 ? By the signature above, the attending physician certifies that he/she has ? personally conducted a gross and/or microscopic examination of the described ? specimens and rendered or confirmed the above diagnosis. ? Specimen(s) Received: ? A. ?Bx duodenum (#1) ? B. ? Bx antrum (#2) ? C. ? Bx distal esoph (#3) ? D. ? Bx mid esoph (#4) ? E. ? Bx proximal esoph (#5) ? Clinical History: ? Hx GERD, celiac dz ? Gross Description: ? Received in formalin labelled Aylin Arreola and latosha duodenum are six ?? de la rosa-pink irregular soft tissue fragments ranging from 0.2 x 0.2 x 0.2 cm to 0.4 x 0.3 x 0.2 cm. ??The specimen is entirely submitted as (A1) and (A2). ? Received in formalin labelled Aylin Arreola and bx antrum are two de la rosa-pink irregular soft tissue fragments measuring 0.2 x 0.2 x 0.2 cm and 0.3 x 0.3 x 0.3 cm. ??The specimen is entirely submitted as (B). ? Received in formalin labelled Aylin Arreola and distal esophagus are ? three de la rosa-pink irregular soft tissue fragments ranging from 0.2 x 0.2 x 0.2 cm ?? to 0.4 x 0.3 x 0.2 cm. ??The specimen is entirely submitted as (C). ? Received in formalin labelled Aylin Arreola and mid esophagus are two ?? de la rosa-pink irregular soft tissue fragments averaging 0.4 x 0.3 x 0.2 cm. ??The ? specimen is entirely submitted as (D). ? Received in formalin labelled Aylin Arreola and proximal esophagus are ?? two de la rosa-pink irregular soft tissue fragments averaging 0.3 x 0.2 x 0.2 cm. ??The specimen is entirely submitted as (E). ??(Kun Duncan/mms ? End of Report ? [facility] 08/02/2011 08/02/2011 8:2 9 EDT Flori Edwards DO PATHOLOGY ORDER KATHY [facility] [address] [place] [address] documented in this encounter Visit Diagnoses Not on filedocumented in this encounter Care Teams Architecture Intern Relationship Specialty Start Date End Date Anahy Xiao, COMMERCIAL DIVER [facility] [address] [place] [address] PCP - General 01/16/11 documented as of this encounter
--- OUTSIDE RECORDS SUMMARY | 2024-06-24 01:07 | XMS_ITS | Encounter Summary ---
Author Organization [facility] Address [address] [place] [address] Care Team Providers Care Switchboard Receptionist Name Role Phone Anahy Viveros NP Primary Care Provider [phone] Encounter Details Date Type Department Care Team (Late st Contact Info) Description 12/16/2022 Lab Requisition [facility] Pathology & Laboratory Medicine - [address] [id number] Outr Resulting Lab, Provider Social History Tobacco [...] Procedure Name Priority Date/Time Associated Diagnosis Comments HEMOGLOBIN A1C Routine 12/16/2022 11:40 EST documented in this encounter Results * (ABNORMAL) HEMOGLOBIN A1C (12/16/2022 11:40 EST) Hemoglobin A1c 6.9(H) <5.7 % 12/17/2022 18:56 EST [facility] Comment: Glycemic Status References: Normal: ??<5.7% Pre-Diabetes: ??5.7% - 6.4% Diagnostic of Diabetes: ??> or = 6.5% (if confirmed) Est Avg Glucose 151 mg/dL 3 18:56 EST [facility] Comment:The eAG represents t he A1c result expressed as average glucose in mg/dL. Blood VENOUS BLOOD / Unknown 12/16/2022 11:40 EST 12/17/2022 17:10 EST Provider Outr Resulting Lab CHEMISTRY & BLOOD GAS ORDERABLES Performing Organization Address City/State/[facility] Co de Phone Number [facility] [address] [place] [address] documented in this encounter Visit Diagnoses Not on filedocumented in this encounter Care Teams Switchboard Receptionist Relationship Specialty Start Date End Date Anahy Viveros NP [facility] [address] [place], [place] [id number] PCP - General 01/16/11 documented as of this encounter
--- OUTSIDE RECORDS SUMMARY | 2024-06-24 01:07 | XMS_ITS ---
Author Organization [facility] Address [facility] [place] [address] Care Team Providers Care Cardiology Associate Name Role Phone Kathy Wright SHOW GIRL Primary Care Provider [phone] Active Problems Problem Noted Date Diagnosed Date Chronic kidney disease 02/21/2023 Urinary obstruction 02/21/2023 Hypercalcemia 02/21/2023 Hypertension 02/21/2023 Tobacco abuse 02/21/2023 COPD (chronic obstructive pulmonary disease) 08/2019 Mixed anxiety and depressive disorder 11/09/2019 Non-small cell lung cancer, right 11/09/2019 Cancer Staging:Clinical stage from 08/04/2019:Stage IA2(cT1b, cN0, cM0) - Signed by Toño West MD on 11/09/2019 Pathologic:Stage IIIA(pT1b, pN2, cM0) - Signed by Toño West MD on 11/09/2019 Overview (11/09/2019): Adenocarcinoma, acinar predominant with focal micro-papillary pattern, 12/12 LN, positive 8R node with isolated cancer cells, PDL 1 TPS 5% Lung nodule 09/16/2019 Dizziness 09/16/2019 Closed compression fracture of body of L1 verteb ra 05/04/2019 Current Oncology Plans No current plan information found. Past Plans ADULT TREATMENT Plan Name Start Date Discontinue Date Treatment Medications Discontinue Reason Plan Provider Cycles DH BCN AMB ONC NONSMALL CELL LUNG CANCER - CARBOplatin / PEMEtrexed 0 02/01/2020 CARBOplatin (Paraplatin) in 150 mL infusionPEMEtrexed (Alimta) in sodium chloride 0.9% 100 mL infusion Therapy Complete Toño West MD 2 of 4 cycles started BCN AMB ONC NONSMALL CELL LUNG CANCER - CISplatin / PEMEtrexed 019 12/28/2019 CISplatin (Platinol) in sodium chloride 0.9% 250 mL infusionPEMEtrexed (Alimta) in sodium chloride 0.9% 100 mL infusion Not Tolerated Toño West MD 2 of 4 cycles started Radiation Treatments * No radiation treatments are documented for this patient in [facility]. Treatments may have been administered in another system. Lifetime Dose Tracking * Chemical Lifetime Dose Automatic Entry Manual Entr y DLP (Dose Length Product) 423 mGy-cm 423 mGy-cm 0 mGy-cm CTDI (CT Dose Index) Min 12.46 mGy 12.46 mGy 0 m Gy CTDI (CT Dose Index) Max 12.46 mGy 12.46 mGy 0 m Gy
--- OUTSIDE RECORDS SUMMARY | 2024-06-24 01:07 | XMS_ITS | Encounter Summary ---
Author Organization [facility] Address [address] [place] [address] Care Team Providers Care Miniature Set Builder Name Role Phone Alejandro Early MD Primary Care Provider [phone] Encounter Details Date Type Department Care Team (Late st Contact Info) Description 01/14/2011 Results Only [facility] Laboratory Services - [facility] ([facility]) [address] [place], [place] [address] Patricia Burnett MD [address] [place] [address] [address] [place] [address] Social History Tobacco Use Types Packs/Day Years Used Date Smoking Tobacco: Never Assessed Sex and Gender Information Value Date Recorded Sex Assigned at Not on file Gender Identity Not on file Sexual Orientation Not on file documented as of this encounter Plan of Treatment Not on file documented as of this encounter Procedures Procedure Name Priority Date/Time Associated Diagnosis Comments SURGICAL PATHOLOGY Routine 01/14/2011 0:00 EST documented in this encounter Results * SURGICAL PATHOLOGY (01/14/2011 0:00 EST) Pathology Report: SURGICAL PATHOLOGY REPORT ? Reports generated via electronic interface contain original data; ? however they are lacking the format of the original report. ? Caution should be taken when reading/interpreting unformatted reports. ? Name: ? AYLIN ALFONSO ? Accession #: ? [id number] ? : ? 1960 (Age: 50) ??F ? Collect Date: ? 01/14/2011 ? Location: ? [facility] ? Receive Date: ? 01/15/2011 ? Provider: GARFIELD CALDERA DO ? Copy to: JORGE XIAO ASSOCIATE ACCOUNT DIRECTOR ? Final Pathologic Diagnosis: ? Skin, site not further specified, punch biopsies (2): ? 1. ?Reactive epidermal hyperplasia with hyperkeratosis and dermal ? fibrosis. ??See microscopic and ? comment. ? 2. ?? Rare foreign body giant cells associated with keratinous debris. ? Comment: ? Numerous sections of both biopsies were reviewed. ??Both biopsies show ? reactive changes including epidermal hyperplasia with hyperkeratosis and dermal fibrosis. ??In one of the biopsies, there is an eccentric papule formed by more ?? prominent epidermal hyperplasia that has features suggestive of ? irritation/rubbing (prurigo nodularis). ??Specific viral cytopathic changes are ?? not identified. ??(Dr. Sosa)/marina ? Microscopic Description: ? Sections consist of two punch biopsies of skin to the deep reticular ? dermis. ??Both biopsies have a thick stratum corneum composed of compact ? orthohyperkeratosis. ??In one of the biopsies (A1), the epidermis is mildly ? hyperplastic with irregular acanthosis. ??The keratinocytes show care center manager ? maturation with no appreciable spongiosis, ballooning degeneration, or atypia. ?? The interface is generally intact. ??The underlying dermis has fibrosis with a ?? reactive vascular pattern. ??There is mild inflammation consisting of a small ? number of lymphomononuclear cells in the vicinity of the vessels. ??Eccrine units are present and generally unremarkable. ??On some of the deeper sections, ? multinucleate, foreign body-type giant cells are present within the dermis. ? These appear to be associated with keratinous material. ??The other biopsy has an eccentric focus of prominent irregular epidermal hyperplasia. ??The rete ridges ?? are thick and elongate, with fusion centrally. ??The keratinocytes show mild ? reactive changes, but generally mature in an care center manager fashion with a thick ? granular layer. ??In some of the sections, there is separation of the epidermis ?? from the overlying stratum corneum with formation of a cleft containing ? keratinous material. ??This appears artifactual due to tangential sectioning. ? The underlying dermis has fibrosis with thick bundles of collagen extending into widened papillae. ??There is a reactive vascular pattern. ??(Dr. Sosa)/marina ? Document reviewed and electronically signed by: ? TALATPat SOSA MD ? Report ??Date: 01/16/2011 15:32 ? By the signature above, the attending physician certifies that he/she has ? personally conducted a gross and/or microscopic examination of the described ? specimens and rendered or confirmed the above diagnosis. ? Specimen(s) Received: ? Skin punch biopsy (4.0 mm) ? Clinical History: ? Viral infection ? Gross Description: ? Received in formalin labelled Aylin Alfonso and skin punch biopsy viral infection are two de la rosa-pink skin punch biopsies measuring 0.4 x 0.4 cm and ? excised to a depth of 0.2 cm. ??Each of the specimens are bisected and submitted entirely as (A1) and (A2). ??(Samir Orr)/mms ? End of Report ? [facility] 01/14/2011 01/15/2011 9:1 8 EST Garfield Caldera DO PATHOLOGY ORDERABLES [facility] [address] [place] [address] documented in this encounter Visit Diagnoses Not on filedocumented in this encounter Care Teams Miniature Set Builder Relationship Specialty Start Date End Date Alejandro Early MD [address] [place] [address] [place] [address] PCP - General 01/29/10 01/15/11 documented as of this encounter
--- OUTSIDE RECORDS SUMMARY | 2024-06-24 01:07 | XMS_ITS | Encounter Summary ---
Author Organization [facility] Address [address] [place] [address] Care Team Providers Care Deputy Administrator Name Role Phone Alejandro Early MD Primary Care Provider [phone] Encounter Details Date Type Department Care Team (Late st Contact Info) Description 09/10/2002 Results Only [facility] - [facility] [address] [place] [address] Thor Mazariegos MD [address] [facility] [address] [address] Social History Tobacco Use Types [...] Priority Date/Time Associated Diagnosis Comments CYTOPATHOLOGY Routine 09/10/2002 0:00 EDT documented in this encounter Results * CYTOPATHOLOGY (09/10/2002 0:00 EDT) Pathology Report: CYTOPATHOLOGY REPORT Reports generated via electronic interface contain original data; however they are lacking the format of the original report. Caution should be taken when reading/interpreti ng unformatted reports. Name: ? AYLIN ALFONSO ? Accession #: ? [id number] : ? 1960 (Age: 42) ??F ?Collect Date: ? 09/10/2002 Location: ? [facility] ? Receive Date: ? 09/13/2002 Provider: ?THOR MAZARIEGOS MD Copy to: ? Specimen/Source: ?ThinPrep Pap Test, Cervix/Endocervix Last Menstrual Period: ? SPECIMEN ADEQUACY ? Satisfactory for Evaluation - transformation zone component absent GENERAL CATEGORIZATION ? Negative for Intraepithelial Lesion or Malignancy ? Document reviewed and electronically signed by: ? STIVEN Morrow(ASCP) ? Report Date: ??09/16/2002 11:16 End of Report [facility] 09/10/2002 09/13/2002 Thor Mazariegos MD PATHOLOGY ORDERABLES Performing Organization Address City/State/[facility] Co de Phone Number [facility] [address] [place] [address] documented in this encounter Visit Diagnoses Not on filedocumented in this encounter Care Teams Deputy Administrator Relationship Specialty Start Date End Date Alejandro Early MD [address] [place] [address] [place] [address] PCP - General 01/29/10 01/15/11 documented as of this encounter
--- OUTSIDE RECORDS SUMMARY | 2024-06-24 01:07 | XMS_ITS | Encounter Summary ---
Author Organization [facility] Address [address] [place] [address] Care Team Providers Care Fabrication Operator Name Role Phone Alejandro Early MD Primary Care Provider [phone] Encounter Details Date Type Department Care Team (Late st Contact Info) Description 09/17/2004 Results Only [facility] - [facility] conversion [address] [place] [address] Thor Mazariegos MD [address] [address] [address] Social History Tobacco Use Types [...] Priority Date/Time Associated Diagnosis Comments CYTOPATHOLOGY Routine 09/17/2004 0:00 EDT documented in this encounter Results * CYTOPATHOLOGY (09/17/2004 0:00 EDT) Pathology Report: CYTOPATHOLOGY REPORT Reports generated via electronic interface contain original data; however they are lacking the format of the original report. Caution should be taken when reading/interpreti ng unformatted reports. Name: ? AYLIN ALFONSO ? Accession #: ? [id number] : ? 1960 (Age: 44) ??F ?Collect Date: ? 09/17/2004 Location: ? [facility] ? Receive Date: ? 09/19/2004 Provider: ?THOR MAZARIEGOS MD Copy to: ? Specimen/Source: ?ThinPrep Pap Test, Cervix/Endocervix Last Menstrual Period: ? 09/03/04 Menstrual/Pregnanc y Status: ? Irregular ? SPECIMEN ADEQUACY ? Satisfactory for Evaluation - transformation zone component present GENERAL CATEGORIZATION ? Negative for Intraepithelial Lesion or Malignancy ? Document reviewed and electronically signed by: ? CRISTINA Higgins(ASCP) ? Report Date: ??09/25/2004 08:41 End of Report [facility] 09/17/2004 09/19/2004 Thor Mazariegos MD PATHOLOGY ORDERABLES Performing Organization Address City/State/[facility] Co de Phone Number [facility] [address] [place] [address] documented in this encounter Visit Diagnoses Not on filedocumented in this encounter Care Teams Fabrication Operator Relationship Specialty Start Date End Date Alejandro Early MD [address] [place] [address] [place] [address] PCP - General 01/29/10 01/15/11 documented as of this encounter
--- OUTSIDE RECORDS SUMMARY | 2024-06-24 01:07 | XMS_ITS | Encounter Summary ---
[place] [address] Care Team Providers Care Powertrain Control Systems Engineer Name Role Phone Kathy Wright MARÍA Primary Care Provider [phone] Encounter Details Date Type Department Care Team (Late st Contact Info) Description 01/12/2024 Telephone Neph[place] [address] Misti Lopes Social History Tobacco Use Types Packs/Day Years [...] encounter Miscellaneous Notes * Telephone Encounter - Misti Lopes - 01/12/2024 3:11 PM EST Pt returned call, at this time pt declined follow up appointment. Pt will follow with PCP and call our office if she feels she needs an appointment. Therefor taking out recall documented in this encounter Plan of Treatment Not on file documented as of this encounter Visit Diagnoses Not on filedocumented in this encounter Care Teams Powertrain Control Systems Engineer Relationship Specialty Start Date End Date Kathy Wright APRN PCP - General Family Medicine 04/22/19 documented as of this encounter
--- OUTSIDE RECORDS SUMMARY | 2024-06-24 01:07 | XMS_ITS | Encounter Summary ---
Author Organization [facility] Address [address] [place] [address] Care Team Providers Care Enterprise Data Architect Name Role Phone FeliceAnahy Santa MIRANDA Primary Care Provider [phone] Encounter Details Date Type Department Care Team (Late st Contact Info) Description 08/02/2022 Lab Requisition [facility] Pathology & Laboratory Medicine - [address] [address] Miladis Victoria, DO [address] [address] [place], [place] [id number] Encounter for screening for malignant neoplasm of colon Social History Tobacco Use Types Packs/Day Years [...] Priority Date/Time Associated Diagnosis Comments SURGICAL PATHOLOGY Today 08/02/2022 7:47 EDT Encounter for screening for malignant neoplasm of colon documented in this encounter Results * SURGICAL PATHOLOGY (08/02/2022 7:47 EDT) Note to Patient The following pathology results have been interpreted by your pathologist and may be available to you before your health provider has had the opportunity to review them. Please allow time for your provider to receive these results and explore management options, if applicable. 08/07/2022 9:33 [facility] Final Diagnosis A. COLON, 40 CM, POLYP, BIOPSY: - Tubular adenoma. B. COLON, 70 CM, BIOPSY: - Colonic mucosa with no significant diagnostic abnormality. C. COLON, 20 CM, BIOPSY: - Colonic mucosa with no significant diagnostic abnormality. 08/07/2022 9:33 [facility] Attestation There was significant resident/fellow involvement in the diagnostic evaluation of this case. By the signature below, the attending physician certifies that they have personally conducted a gross and/or microscopic examination of the described specimens and rendered or confirmed the above diagnosis. 08/07/2022 9:33 [facility] at 0933 Clinical History Colon cancer screening 08/07/2022 9:33 [facility] Gross Description A. Received in formalin labelled with proper patient identification (initials M, J) and polyp at 40 cm are two de la rosa tissues (1.0 x 0.1 x 0.1 cm and 0.8 x 0.1 x 0.1 cm). Entirely submitted in A1. B. Received in formalin labelled with proper patient identification (initials M, J) and biopsy at 70 cm is a single de la rosa tissue fragment (0.3 x 0.1 x 0.1 cm). Submitted intact in B1. C. Received in formalin labelled with proper patient identification (initials M, J) and biopsy at 20 cm is a single de la rosa tissue fragment (0.3 x 0.1 x 0.1 cm). Submitted intact in C1. LEAH CRANE 08/03/2022 11:16 08/07/2022 9:33 [facility] Resident/David w: Avni Mock 08/07/2022 9:33 [facility] Performing Lab [facility] 08/07/2022 9:33 [facility] Scanned Images 08/07/2022 9:33 [facility] Tissue ENTIRE COLON / Unknown 08/02/2022 7:47 EDT 08/02/2022 18:00 EDT Tissue specimen (specimen) COLON STRUCTURE / Unknown 08/02/2022 7:47 EDT 08/02/2022 18:00 EDT Tissue specimen (specimen) COLON STRUCTURE / Unknown 08/02/2022 7:47 EDT 08/02/2022 18:00 EDT Miladis Victoria DO PATHOLOGY ORDERABLES [facility] [address] [place] [address] documented in this encounter Visit Diagnoses Diagnosis Encounter for screening for malignant neoplasm of colon Special screening for malignant neoplasms, colon documented in this encounter Care Teams Enterprise Data Architect Relationship Specialty Start Date End Date Anahy Viveros NP [facility] [address] [place] [address] PCP - General 01/16/11 documented as of this encounter
--- OUTSIDE RECORDS SUMMARY | 2024-06-24 01:07 | XMS_ITS | Encounter Summary ---
Author Organization [facility] Address [address] [place] [address] Care Team Providers Care Table Cut Off Saw Operator Name Role Phone Anahy Viveros NP Primary Care Provider [phone] Encounter Details Date Type Department Care Team (Late st Contact Info) Description 12/26/2023 Lab Requisition [facility] Pathology & Laboratory Medicine - [address] [address] Andrew Deng MD [address] [place] [address], [address] [place], [place] [id number] Dysphasia Social History Tobacco Use Types Packs/Day Years [...] Date/Time Associated Diagnosis Comments SURGICAL PATHOLOGY Today 12/26/2023 12 :00 EST Dysphasia documented in this encounter Results * SURGICAL PATHOLOGY (12/26/2023 12:00 EST) Note to Patient The following pathology results have been interpreted by your pathologist and may be available to you before your health provider has had the opportunity to review them. Please allow time for your provider to receive these results and explore management options, if applicable. 12/30/2023 10:19 EST [facility] Final Diagnosis A. STOMACH, ANTRUM, BIOPSY: - Antral/oxyntic mucosa junction with no specific pathologic features. - No Helicobacter pylori like organisms identified on routine stains. B. STOMACH, GASTRIC BODY, BIOPSY: - Oxyntic mucosa with no specific pathologic features. - No Helicobacter pylori like organisms identified on routine stains. C. GASTROESOPHAGEAL JUNCTION, BIOPSIES: - Squamous and gastric cardia type mucosa with mild reactive epithelial changes. - No intestinal metaplasia or dysplasia identified. - No Helicobacter pylori like organisms identified on routine stains. 12/30/2023 10:19 [facility] Attestation By the signature below, the attending physician certifies that they have 1) personally conducted a gross and/or microscopic examination of the described specimen(s), and/or personally interpreted the results of laboratory testing of the described specimen(s), and 2) personally rendered or confirmed the above diagnosis. 12/30/2023 10:19 [facility] at 1019 Clinical History R/O H. pylori 12/30/2023 10:19 [facility] Gross Description A. Received in formalin labelled with proper patient identification (initials S, J) and gastric antrum Bx is a de la rosa tissue fragment, 0.6 x 0.2 x 0.1 cm. Entirely submitted in A1. B. Received in formalin labelled with proper patient identification (initials S, J) and gastric body is a de la rosa tissue fragments, 0.7 x 0.2 x 0.1 cm. Entirely submitted in B1. C. Received in formalin labelled with proper patient identification (initials S, J) and Bx GE junction are two soft de la rosa and bradley membranous tissues, 0.3 x 0.2 x 0.2 cm and 0.3 x 0.1 by less than 0.1 cm. The specimen is entirely submitted in C1 however the smaller fragment may not survive processing. JOSE TREJO(ASCP) 12/29/2023 7:49 12/30/2023 10:19 [facility] Performing Lab [facility] 10:19 [facility] Scanned Images 12/30/2023 10:19 [facility] Tissue ESOPHAGEAL STRUCTURE / Unknown 12/26/2023 12:00 EST 12/26/2023 17:08 EST Tissue specimen (specimen) STOMACH STRUCTURE / Unknown 12/26/2023 12:00 EST 12/26/2023 17:08 EST Tissue specimen (specimen) ESOPHAGEAL STRUCTURE / Unknown 12/26/2023 12:00 EST 12/26/2023 17:08 EST Andrew Deng MD PATHOLOGY ORDERABLES [facility] [address] [place] [address] documented in this encounter Visit Diagnoses Diagnosis Dysphasia Other speech disturbance documented in this encounter Care Teams Table Cut Off Saw Operator Relationship Specialty Start Date End Date Anahy Viveros NP [facility] [address] [place], [place] [address] PCP - General 01/16/11 documented as of this encounter
--- OUTSIDE RECORDS SUMMARY | 2024-06-24 01:07 | XMS_ITS | Encounter Summary ---
Author Organization Health system Address [address] [place] [address] Care Team Providers Care Rivet Spinner Name Role Phone Anahy Xiao NP Primary Care Provider [phone] Encounter Details Date Type Department Care Team (Late st Contact Info) Description 01/30/2012 Results Only [facility] Laboratory Services - [facility] ([facility]) [address] [place], [place] [address] Marcela Arceo, DRIVEWAY ATTENDANT [address] [address] Social History Tobacco Use Types Packs/Day [...] Diagnosis Comments PAP TEST- RESULT ONLY Routine 01/30/2012 0:00 EST documented in this encounter Results * PAP TEST- RESULT ONLY (01/30/2012 0:00 EST) Pathology Report: CYTOPATHOLOGY REPORT Reports generated via electronic interface contain original data; however they are lacking the format of the original report. Caution should be taken when reading/interpreti ng unformatted reports. Name: ? KADEN AYLIN ? Accession #: ? [id number] : ? 1960 (Age: 51) ??F ?Collect Date: ? 01/30/2012 Location: ? [facility] ? Receive Date: ? 01/31/2012 Provider: ?MARCELA ARCEO DRIVEWAY ATTENDANT Copy to: ?ANAHY XIAO MATERIAL HANDLING TECHNICIAN ? Specimen/Source: ?Pap Test, Cervix/Endocervix, ThinPrep Imaging System with manual evaluation Last Menstrual Period: ? 2009 Previous Gynecologic Pathology: ? ASC-US: 2010 negative HPV ? SPECIMEN ADEQUACY ? Satisfactory for Evaluation - transformation zone component present GENERAL CATEGORIZATION ? Negative for Intraepithelial Lesion or Malignancy ? Document reviewed and electronically signed by: ? Kirsty Rabago, CT(ASCP)(IAC) ? Report Date: ??02/04/2012 15:50 End of Report [facility] 01/30/2012 01/31/[address]IVEWAY ATTENDANT PATHOLOGY ORDERABLES [facility] [address] [place] [address] documented in this encounter Visit Diagnoses Not on filedocumented in this encounter Care Teams Rivet Spinner Relationship Specialty Start Date End Date Anahy Xiao, [facility] [address] [place] [address] PCP - General 01/16/11 documented as of this encounter
--- OUTSIDE RECORDS SUMMARY | 2024-06-24 01:07 | XMS_ITS | Encounter Summary ---
Author Organization [facility] Address [address] [place] [address] Care Team Providers Care Discharge Planner Name Role Phone Unavailable Primary Care Provider Unavailabl e Encounter Details Date Type Department Care Team (Late st Contact Info) Description 01/22/2010 Results Only [facility] Laboratory Services - [facility] ([facility]) [address] [place] [address] Marcela Arceo, [facility] [address] [facility] [place] [address] Social History Tobacco Use Types Packs/Day Years Used Date Smoking Tobacco: Never Assessed Sex and Gender Information Value Date Recorded Sex Assigned at Not on file Gender Identity Not on file Sexual Orientation Not on file documented as of this encounter Plan of Treatment Not on file documented as of this encounter Procedures Procedure Name Priority Date/Time Associated Diagnosis Comments HPV DETECTION, HIGH RISK TYPES Routine 01/22/2010 8:30 EST CYTOPATHOLOGY Routine 01/22/2010 0:00 EST documented in this encounter Results * HUMAN PAPILLOMA VIRUS DNA TEST (01/22/2010 8:30 EST) Specimen Description Cervix, ThinPrep vial [facility] Result Negative for HPV types 16, 18, 31, 33, 35, 39, 45, 51, 52, 56, 58, 59, and 68. [facility] Report Status Final 01/31/2010 [facility] 01/22/2010 8:30 EST 01/29/2010 8:30 EST Marcela Arceo CAPTAIN CANNERY TENDER MICROBIOLOGY - GENER AL ORDERABLES [facility] [address] [address] * CYTOPATHOLOGY (01/22/2010 0:00 EST) Pathology Report: CYTOPATHOLOGY REPORT ? Reports generated via electronic interface contain original data; ? however they are lacking the format of the original report. ? Caution should be taken when reading/interpreti ng unformatted reports. ? Name: ? AYLIN ALFONSO ? Accession #: ? [id number] ? : ? 1960 (Age: 49) ??F ?Collect Date: ? 01/22/2010 ? Location: ? [facility] ? Receive Date: ? 01/23/2010 ? Provider: ?MARCELA PRIYANKA CAPTAIN CANNERY TENDER ? Copy to: ? Specimen/Source: ?Pap Test, Cervix/Endocervix, ThinPrep Imaging System ? with manual evaluation ? Last Menstrual Period: ? 08/08 ? Hormonal/Contracep tive Status: ? Tubal ligation: 12/09 ? Previous Gynecologic Pathology: ? Benign cellular changes: 2001 ? Other: ? Additional clinical information: Paps wnl ? HPVA - HPV testing requested if ASC-US on the current ThinPrep Pap test. ? SPECIMEN ADEQUACY ? Satisfactory for Evaluation ? - transformation zone component present ? GENERAL CATEGORIZATION ? Epithelial Cell Abnormality ? INTERPRETATION ? Squamous Cell Abnormality - Atypical squamous cells, undetermined ? significance (ASC-US). ? Shift in nelli present suggestive of bacterial vaginosis. ? EDUCATIONAL NOTES/RECOMMENDATI ONS ? [facility] recommends following the 2006 Consensus Guidelines for the Management of Women with Abnormal Cervical Cancer Screening Tests (JLGTD, ? 2007;11(4:201-222 ). ??Consensus guidelines are available online at ? www.ASCCP.org. ? Document reviewed and electronically signed by: ? STUART ALICEA MD ? Report Date: ??01/26/2010 13:08 ? End of Report ? [facility] 01/22/2010 01/23/2010 Marcela Arceo CAPTAIN CANNERY TENDER PATHOLOGY ORDERABLES Performing Organization Address City/State/[facility] Co de Phone Number [facility] [address] [place] [address] documented in this encounter Visit Diagnoses Not on filedocumented in this encounter
--- OUTSIDE RECORDS SUMMARY | 2024-06-24 01:07 | XMS_ITS | Clinical Summary ---
Author Organization [facility] Address [address] [place] [address] Care Team Providers Care Dispatcher Tugboat Name Role Phone Anahy Viveros NP Primary Care Provider [phone] Social History Tobacco Use Types Packs/Day Years Used Date Smoking Tobacco: Never Assessed Interpersonal Safety Answer Date Record ed Physically Hurt Never 07/02/2020 Verbally Threaten Not on file 07/02/2020 Sex and Gender Information Value Date Recorded Sex Assigned at Not on file Gender Identity Not on file Sexual Orientation Not on file Plan of Treatment Health Maintenance Due Date Last Done Comments Hepatitis C Screen 1960 RSV Immunization ( o r 60+ Years) (1 - 1-dose 60+ series) 2020 COVID-19 Vaccine ( season) 2023 Marleni Christianson Personal/Family Self [address] [place] [address] Marleni Christianson Personal/Family Self [address] [place] [address] Marleni Christianson Personal/Family Self [address] [place] [address] Care Teams Dispatcher Tugboat Relationship Specialty Start Date End Date Anahy Viveros INSULATION POWER UNIT TENDER [facility] [address] [place], [place] [address] PCP - General 01/16/11
--- OUTSIDE RECORDS SUMMARY | 2024-06-24 01:07 | XMS_ITS | Encounter Summary ---
Author Organization [facility] Address [address] [place] [address] Care Team Providers Care Pit Crew Support Worker Name Role Phone Anahy Viveros NP Primary Care Provider [phone] Encounter Details Date Type Department Care Team (Late st Contact Info) Description 11/09/2018 Results Only [facility] [phone] Marcela Arceo, [facility] [address] [place] [phone] Social History Tobacco Use Types Packs/Day Years [...] Diagnosis Comments PAP TEST- RESULT ONLY Routine 11/09/2018 0:00 EST documented in this encounter Results * PAP TEST- RESULT ONLY (11/09/2018 0:00 EST) Pathology Report: CYTOPATHOLOGY REPORT Reports generated via electronic interface contain original data; however they are lacking the format of the original report. Caution should be taken when reading/interpreti ng unformatted reports. Name: ? GWEN ALFONSOIE ? Accession #: ? [id number] ? : ? 1960 (Age: 58) ??F ?Collect Date: ? 11/09/2018 ? Location: ? [facility] ? Receive Date: ? 11/10/2018 ? Provider: MARCELA ARCEO HEL[employer] DES[employer] INTERNSHIP Copy to: SIOBHAN GARCIA ? Final Report SPECIMEN ADEQUACY ? Satisfactory for Evaluation - transformation zone component present GENERAL CATEGORIZATION ? Negative for Intraepithelial Lesion or Malignancy ?? Last Menstrual Period: 2006 Specimen/Source: ??Pap Test, Cervix, ThinPrep Imaging System with manual evaluation Document reviewed and electronically signed by: ? CRISTINA Aguilera(ASCP) ? Report ??Date: 11/13/2018 15:05 HPV with Pap Test ? Date Ordered: ? 11/13/2018 ? Status: ?? Signed Out ?Date Complete: ? 11/17/2018 ? By: ??System Interface ? Date Reported: ? 11/17/2018 ? Interpretation RESULT: Negative for HPV. No E6 or E7 mRNA is detected from HPV types 16,18,31,33,35, 39,45,51,52,56,58, 59,66, and 68 by expediter service order mediated amplification. Comments Document reviewed and electronically signed by: ? System Interface ? Report date: 11/17/2018 By the signature above, the attending physician certifies that he/she has personally conducted a gross and/or microscopic examination of the described specimens and rendered or confirmed the above diagnosis. End of Report [facility] 11/09/2018 11/10/2018 Marcela Arceo HEL[employer] DES[employer] INTERNS[employer]IP PATHOLOGY ORDERABLES [facility] [address] [place] [address] documented in this encounter Visit Diagnoses Not on filedocumented in this encounter Care Teams Pit Crew Support Worker Relationship Specialty Start Date End Date Anahy Viveros NP [facility] [address] [place], [place] [id number] PCP - General 01/16/11 documented as of this encounter
--- OUTSIDE RECORDS SUMMARY | 2024-06-24 01:07 | XMS_ITS | Encounter Summary ---
Author Organization [facility] Address [address] [place] [address] Care Team Providers Care Pellet Post Inspector Name Role Phone Anahy Viveros NP Primary Care Provider [phone] Encounter Details Date Type Department Care Team (Late st Contact Info) Description 02/23/2019 Results Only [facility] [phone] Mario West MD [address] [place], [place] [id number] Social History Tobacco Use Types Packs/Day Years Used Date Smoking Tobacco: Never Assessed Sex and Gender Information Value Date Recorded Sex Assigned at Not on file Gender Identity Not on file Sexual Orientation Not on file documented as of this encounter Plan of Treatment Not on file documented as of this encounter Procedures Procedure Name Priority Date/Time Associated Diagnosis Comments SURGICAL PATHOLOGY Routine 02/23/2019 17 :14 EDT documented in this encounter Results * SURGICAL PATHOLOGY (02/23/2019 17:14 EDT) Pathology Report: SURGICAL PATHOLOGY REPORT Reports generated via electronic interface contain original data; however they are lacking the format of the original report. Caution should be taken when reading/interpretin g unformatted reports. Name: ? AYLIN ALFONSO ? Accession #: ? [id number] ? : ? 1960 (Age: 58) ??F ? Collect Date: ? 02/23/2019 ? Location: ? [facility] ? Receive Date: ? 02/23/2019 ? Provider: MARIO WEST MD Copy to: YAHAIRA KELLEY DECAL APPLIER ? Final Pathologic Diagnosis: A. STOMACH, ANTRUM, BIOPSY: - Antral and oxyntic mucosa with reactive (chemical) gastropathy. B. GASTROESOPHAGEAL JUNCTION, BIOPSY: - Squamocolumnar junctional mucosa with chronic inflammation and mild reactive change. Document reviewed and electronically signed by: JAKE ABBOTT MD Report ??Date: 02/25/2019 09:26 By the signature above, the attending physician certifies that he/she has personally conducted a gross and/or microscopic examination of the described specimens and rendered or confirmed the above diagnosis. Specimen(s) Received: A. ??Bxs antrum B. ??Bxs GE junction Clinical History: Dysphagia Gross Description: A. ?Received in formalin labelled with proper patient identification (initials M, J) and bxs antrum are three de la rosa irregular tissues ranging from 0.4 x 0.2 x 0.1 cm to 0.3 x 0.2 x 0.2 cm. Entirely submitted in A1. B. ?Received in formalin labelled with proper patient identification (initials M, J) and bxs GE junction are three de la rosa irregular tissues ranging from 0.1 x 0.1 x 0.1 cm to 0.3 x 0.1 x 0.1 cm. Entirely submitted in B1. OJSE Matthew (ASCP) 02/23/2019 5:31 PM End of Report [facility] 02/23/2019 17:1 4 EDT 02/23/2019 17:14 EDT Mario West MD PATHOLOGY ORDERJean THACKER [facility] [address] [place] [address] documented in this encounter Visit Diagnoses Not on filedocumented in this encounter Care Teams Pellet Post Inspector Relationship Specialty Start Date End Date Anahy Viveros NP [facility] [address] [place] [address] PCP - General 01/16/11 documented as of this encounter
--- OUTSIDE RECORDS SUMMARY | 2024-06-24 01:07 | XMS_ITS | Encounter Summary ---
Author Organization [facility] Address [facility] [place] [address] Care Team Providers Care Benzol Still Operator Name Role Phone Kathy Wright APRN Primary Care Provider [phone] Encounter Details Date Type Department Care Team (Latest Contact Info) Description 08/12/2023 Travel Social History Tobacco Use Types Packs/Day [...] on filedocumented in this encounter Care Teams Benzol Still Operator Relationship Specialty Start Date End Date Kathy Wright APRN PCP - General Family Medicine 04/22/19 documented as of this encounter
--- OUTSIDE RECORDS SUMMARY | 2024-06-24 01:07 | XMS_ITS | Encounter Summary ---
[place] [address] Care Team Providers Care Hazardous Materials Analyst Name Role Phone Kathy Wright APRN Primary Care Provider [phone] Encounter Details Date Type Department Care Team (Late st Contact Info) Description 01/12/2024 Telephone Neph[place] [address] Misti Lopes Social History Tobacco Use Types [...] Telephone Encounter - Misti Lopes - 01/12/2024 10:42 AM EST LM for patient to call and schedule a follow up appointment. Will send out reminder letter documented in this encounter Plan of Treatment Not on file documented as of this encounter Visit Diagnoses Not on filedocumented in this encounter Care Teams Hazardous Materials Analyst Relationship Specialty Start Date End Date Kathy Wright APRN PCP - General Family Medicine 04/22/19 documented as of this encounter
--- OUTSIDE RECORDS SUMMARY | 2024-06-24 01:07 | XMS_ITS | Encounter Summary ---
Author Organization [facility] Address [address] [place] [address] Care Team Providers Care Infantry Senior Sergeant Name Role Phone Alejandro Early MD Primary Care Provider [phone] Encounter Details Date Type Department Care Team (Late st Contact Info) Description 11/18/2005 Results Only [facility] [address] [place] [address] Thor Mazariegos MD [address] [phone] Social History Tobacco Use Types [...] Priority Date/Time Associated Diagnosis Comments CYTOPATHOLOGY Routine 11/18/2005 0:00 EST documented in this encounter Results * CYTOPATHOLOGY (11/18/2005 0:00 EST) Pathology Report: CYTOPATHOLOGY REPORT Reports generated via electronic interface contain original data; however they are lacking the format of the original report. Caution should be taken when reading/interpreti ng unformatted reports. Name: ? AYLIN ALFONSO ? Accession #: ? [id number] : ? 1960 (Age: 45) ??F ?Collect Date: ? 11/18/2005 Location: ? [facility] ? Receive Date: ? 11/19/2005 Provider: ?THOR MAZARIEGOS MD Copy to: ? [facility] ?[address] ?[place], [place] [address] ? Specimen/Source: ?ThinPrep Pap Test, Cervix/Endocervix, processed on [employer] ThinPrep Imaging System, with manual evaluation Last Menstrual Period: ? 11/10/05 Menstrual/Pregnanc y Status: ? Irregular ? SPECIMEN ADEQUACY ? Satisfactory for Evaluation - transformation zone component present GENERAL CATEGORIZATION ? Negative for Intraepithelial Lesion or Malignancy INTERPRETATION ? Reactive cellular changes associated with inflammation present (includes repair). ? Document reviewed and electronically signed by: ? STUART ALICEA MD ? Report Date: ??11/26/2005 13:50 End of Report [facility] 11/18/2005 11/19/2005 Thor Mazariegos MD PATHOLOGY ORDERABLES [facility] [address] [place] [address] documented in this encounter Visit Diagnoses Not on filedocumented in this encounter Care Teams Infantry Senior Sergeant Relationship Specialty Start Date End Date Alejandro Early MD [facility] [address] PCP - General 01/29/10 01/15/11 documented as of this encounter
--- OUTSIDE RECORDS SUMMARY | 2024-06-24 01:07 | XMS_ITS | Encounter Summary ---
Author Organization [facility] Address [address] [place] [address] Care Team Providers Care Grease Maker Name Role Phone Yocasta Early MD Primary Care Provider [phone] Encounter Details Date Type Department Care Team (Late st Contact Info) Description 08/19/2000 Results Only [facility] - [facility] [address] [place] [address] Kip Pettit MD [address] [place] [phone] Social History Tobacco Use Types Packs/Day Years Used Date Smoking Tobacco: Never Assessed Sex and Gender Information Value Date Recorded Sex Assigned at Not on file Gender Identity Not on file Sexual Orientation Not on file documented as of this encounter Plan of Treatment Not on file documented as of this encounter Procedures Procedure Name Priority Date/Time Associated Diagnosis Comments SURGICAL PATHOLOGY Routine 08/19/2000 0:00 EDT documented in this encounter Results * SURGICAL PATHOLOGY (08/19/2000 0:00 EDT) Pathology Report: SURGICAL PATHOLOGY REPORT Reports generated via electronic interface contain original data; however they are lacking the format of the original report. Caution should be taken when reading/interpreti ng unformatted reports. Name: ? GWEN ALFONSOIE ? Accession #: ? [id number] ? : ? 1960 (Age: 39) ??F ? Collect Date: ? 08/19/2000 ? Location: ? [facility] ? Receive Date: ? 08/19/2000 ? Provider: FAVIAN PETTIT MD Copy to: YOCASTA CLEMENT MD ? Final Pathologic Diagnosis: ? Esophagus, distal, biopsy: 1. ?Squamous mucosa with basal cell hyperplasia and reactive epithelial changes consistent with mild reflux esophagitis. ?? 2. ?Cardia-type gastric mucosa with minimal chronic inflammation. ??See comment. 3. ?No Helicobacter pylori-like micro-organisms identified on routine H and E stain. Comment: ? A PAS/Alcian blue stain is negative for intestinal metaplasia. ??(Dr. Quevedo)/[facility] Document reviewed and electronically signed by: SHANNON CLEMENT MD Report ??Date: 08/21/2000 15:35 By the signature above, the attending physician certifies that he/she has personally conducted a gross and/or microscopic examination of the described specimens and rendered or confirmed the above diagnosis. Specimen(s) Received: ? A. Distal esophagus bx Clinical History: ? HH, GERD, R/O H. pylori Gross Description: ? Received in Hollande' s fixative labelled Nasir and distal esophagus bx is one irregular small fragment of soft tissue which measures 0.3 x 0.2 x 0.1 cm. ??The specimen is entirely submitted intact in one cassette. ??(Dr. Quevedo)/[facility] End of Report [facility] 08/19/2000 08/19/2000 15: 05 EDT Kip Pettit MD PATHOLOGY ORDERABLES Performing Organization Address City/State/[facility] Co de Phone Number [facility] [address] [place] [address] documented in this encounter Visit Diagnoses Not on filedocumented in this encounter Care Teams Grease Maker Relationship Specialty Start Date End Date Yocasta Early MD [facility] [address] PCP - General 01/29/10 01/15/11 documented as of this encounter
--- OUTSIDE RECORDS SUMMARY | 2024-06-24 01:07 | XMS_ITS | Encounter Summary ---
Author Organization [facility] Address [address] [place] [address] Care Team Providers Care K [employer] Principal Name Role Phone Alejandro Early MD Primary Care Provider [phone] Encounter Details Date Type Department Care Team (Late st Contact Info) Description 07/03/2000 Results Only [facility] - [facility] [address] [place] [address] Thor Mazariegos MD [address] [phone] Social History Tobacco Use Types [...] Priority Date/Time Associated Diagnosis Comments CYTOPATHOLOGY Routine 07/03/2000 0:00 EDT documented in this encounter Results * CYTOPATHOLOGY (07/03/2000 0:00 EDT) Pathology Report: CYTOPATHOLOGY REPORT Reports generated via electronic interface contain original data; however they are lacking the format of the original report. Caution should be taken when reading/interpreti ng unformatted reports. Name: ? AYLIN ALFONSO ? Accession #: ? [id number] : ? 1960 (Age: 39) ??F ?Collect Date: ? 07/03/2000 Location: ? [facility] ? Receive Date: ? 07/04/2000 Provider: ?THOR MAZARIEGOS MD Copy to: ? Specimen/Source: ?ThinPrep Pap Test, Cervix/Endocervix Last Menstrual Period: ? 06/12/00 Other: ? Additional clinical information: Regular periods ? SPECIMEN ADEQUACY ? Satisfactory for evaluation. GENERAL CATEGORIZATION ? Within Normal Limits ? Document reviewed and electronically signed by: ? Adrienne Greene, ??CT(ASCP) ? Report Date: ??07/08/2000 11:41 End of Report [facility] 07/03/2000 07/04/2000 Thor Mazariegos MD PATHOLOGY ORDERABLES Performing Organization Address City/State/[facility] Co de Phone Number [facility] [address] [place] [address] documented in this encounter Visit Diagnoses Not on filedocumented in this encounter Care Teams [employer] Principal Relationship Specialty Start Date End Date Alejandro Early MD [address] [place] [address] [place] [address] PCP - General 01/29/10 01/15/11 documented as of this encounter
--- OUTSIDE RECORDS SUMMARY | 2024-06-24 01:07 | XMS_ITS | Encounter Summary ---
Author Organization [facility] Address [address] [place] [address] Care Team Providers Care Assistant Front End Manager Name Role Phone Anahy Viveros NP Primary Care Provider [phone] Encounter Details Date Type Department Care Team (Late st Contact Info) Description 01/28/2011 Results Only [facility] - [facility] ([facility] [address] [place], [place] [address] Marcela Arceo, ECOLOGIST [address] [place] [address] Social History Tobacco Use Types Packs/Day Years Used Date Smoking Tobacco: Never Assessed Sex and Gender Information Value Date Recorded Sex Assigned at Not on file Gender Identity Not on file Sexual Orientation Not on file documented as of this encounter Plan of Treatment Not on file documented as of this encounter Procedures Procedure Name Priority Date/Time Associated Diagnosis Comments CYTOPATHOLOGY Routine 01/28/2011 0:00 EST documented in this encounter Results * CYTOPATHOLOGY (01/28/2011 0:00 EST) Pathology Report: CYTOPATHOLOGY REPORT ? Reports generated via electronic interface contain original data; ? however they are lacking the format of the original report. ? Caution should be taken when reading/interpreti ng unformatted reports. ? Name: ? AYLIN ALFONSO ? Accession #: ? [id number] ? : ? 1960 (Age: 50) ??F ?Collect Date: ? 01/28/2011 ? Location: ? [facility] ? Receive Date: ? 01/29/2011 ? Provider: ?MARCELA PRIYANKA ECOLOGIST ? Copy to: ? Specimen/Source: ?Pap Test, Cervix/Endocervix, ThinPrep Imaging System ? with manual evaluation ? Last Menstrual Period: ? 2009 ? Hormonal/Contracep tive Status: ? Tubal ligation: BTL ? Previous Gynecologic Pathology: ? ASC-US: 02/23/10 neg HPV ? SPECIMEN ADEQUACY ? Satisfactory for Evaluation ? - transformation zone component present ? GENERAL CATEGORIZATION ? Negative for Intraepithelial Lesion or Malignancy ? INTERPRETATION ? Shift in nelli present suggestive of bacterial vaginosis. ? Document reviewed and electronically signed by: ? Zander N. Johan, [place](ASCP) ? Report Date: ??02/01/2011 08:21 ? End of Report ? [facility] 01/28/2011 01/29/2011 Marcela Arceo ECOLOGIST PATHOLOGY ORDERABLES [facility] [address] [place] [address] documented in this encounter Visit Diagnoses Not on filedocumented in this encounter Care Teams Assistant Front End Manager Relationship Specialty Start Date End Date Anahy Viveros NP [facility] [address] [place] [address] PCP - General 01/16/11 documented as of this encounter
--- OUTSIDE RECORDS SUMMARY | 2024-06-24 01:07 | XMS_ITS | Referral Summary ---
Author Organization [facility] Address [address] [place] [address] Care Team Providers Care Wound/Ostomy Clinical Nurse Specialist Name Role Phone Anahy Viveros NP Primary Care Provider Social History Tobacco Use Types Packs/Day Years Used Date Smoking Tobacco: Never Assessed Interpersonal Safety Answer Date Record ed Physically Hurt Never 07/02/2020 Verbally Threaten Not on file 07/02/2020 Sex and Gender Information Value Date Recorded Sex Assigned at Not on file Gender Identity Not on file Sexual Orientation Not on file Plan of Treatment Not on file Care Teams Wound/Ostomy Clinical Nurse Specialist Relationship Specialty Start Date End Date Anahy Viveros NP [facility] [address] [place], [place] [address] PCP - General 01/16/11
--- OUTSIDE RECORDS SUMMARY | 2024-06-24 01:07 | XMS_ITS | Encounter Summary ---
Author Organization [facility] Address [address] [place] [address] Care Team Providers Care Cookie Breaker Name Role Phone Alejandro Early MD Primary Care Provider [phone] Encounter Details Date Type Department Care Team (Late st Contact Info) Description 09/16/2003 Results Only [facility] - [facility] [address] [place] [address] Thor Mazariegos MD [address] [address] Social History Tobacco Use Types [...] Priority Date/Time Associated Diagnosis Comments CYTOPATHOLOGY Routine 09/16/2003 0:00 EDT documented in this encounter Results * CYTOPATHOLOGY (09/16/2003 0:00 EDT) Pathology Report: CYTOPATHOLOGY REPORT Reports generated via electronic interface contain original data; however they are lacking the format of the original report. Caution should be taken when reading/interpreti ng unformatted reports. Name: ? AYLIN ALFONSO ? Accession #: ? [id number] : ? 1960 (Age: 43) ??F ?Collect Date: ? 09/16/2003 Location: ? [facility] ? Receive Date: ? 09/19/2003 Provider: ?THOR MAZARIEGOS MD Copy to: ? Specimen/Source: ?ThinPrep Pap Test, Cervix/Endocervix Last Menstrual Period: ? 08/31/03 Other: ? Additional clinical information: Pelvic pain for years ? SPECIMEN ADEQUACY ? Satisfactory for Evaluation - transformation zone component present GENERAL CATEGORIZATION ? Negative for Intraepithelial Lesion or Malignancy ? Document reviewed and electronically signed by: ? CRISTINA De La Torre(ASCP) ? Report Date: ??09/23/2003 14:54 End of Report [facility] 09/16/2003 09/19/2003 Thor Mazariegos MD PATHOLOGY ORDERABLES Performing Organization Address City/State/[facility] Co de Phone Number [facility] [address] [place] [address] documented in this encounter Visit Diagnoses Not on filedocumented in this encounter Care Teams Cookie Breaker Relationship Specialty Start Date End Date Alejandro Early MD [address] [place] [address] [place] [address] PCP - General 01/29/10 01/15/11 documented as of this encounter
--- OUTSIDE RECORDS SUMMARY | 2024-06-24 01:07 | XMS_ITS | Encounter Summary ---
[place] [address] Care Team Providers Care Music Educator Name Role Phone GerardoKathy nicolas Butch DANIEL Primary Care Provider [phone] Reason for Referral * Diagnostic Test (Routine) - Authorized Specialty Diagnoses / Procedures Referred By Janie cassidy Referred To Contact Radiology Diagnoses Non-small cell lung cancer, right Procedures CT Chest wo Contrast (Generic) Kayla Godoy APRN [facility] [place] [address] [facility] [place] [address] Referral ID Status Reason Start Date Expiration Date Visits Requested Visits Authorized [id number] Authorized Specialty Service Requested 01/29/2024 07/29/2025 1 1 Reason for Visit * Reason Comments Follow-up Lung Cancer Encounter Details Date Type Department Care Team (Late st Contact Info) Description 01/29/2024 9:45 AM EST Office Visit Hematology [place] [address] Sophia Rossi MD [facility] HEMATOLOGY/[place] [address] Kayla Godoy APRN [facility] [place] [address] Non-small cell lung cancer, right Social History Tobacco Use Types Packs/Day Years Used Date Smoking Tobacco: Some Days Cigarettes 0.5 43.7 Started: 1975; Last attempted to quit: 08/02/2019 Smokeless Tobacco: Former Quit: 07/02/2019 Tobacco Cessation:Ready to Q uit: Not Asked; Counseling Given: Not Answered Comments:1 or 2 a week Alcohol Use Standard Drinks/Week Comments Never 0 (1 standard drink = 0.6 oz pur e alcohol) Sex and Gender Information Value Date Recorded Sex Assigned at Not on file Gender Identity Not on file Sexual Orientation Not on file documented as of this encounter Last Filed Vital Signs Vital Sign Reading Time Taken Comments Blood Pressure 125/68 01/29/2024 10:20 AM EST Pulse 85 01/29/2024 10:20 AM EST Temperature 35.6 ??C (96.1 ??F) 01/29/2024 10:[address] Respiratory Rate 14 01/29/2024 10:20 AM EST Oxygen Saturation 97% 01/29/2024 10:20 AM EST Inhaled Oxygen Concentration - - Weight 70.8 kg (156 lb 1.4 oz) 01/29/2024 10:20 AM EST Height 158.7 cm (5' 2.48) 01/29/2024 10:[address] Body Mass Index 28.11 01/29/2024 10:20 AM EST documented in this encounter Progress Notes * Kayla Godoy, MARÍA - 01/29/2024 9:45 AM EST Images from the original note were not included. Oncology Follow-Up Patient Visit Reason for visit: F/U Stage IIIa lung cancer Patient prefers to be called: Marleni HISTORY OF PRESENT ILLNESS: The patient is a 63 y.o. woman with a PMH notable for COPD, fibromyalgia and falls who presented with stage IIIa (pT1bN2) lung cancer. After a fall she underwent a CT Abd/Pelvis (performed 04/18/19) that revealed colitis, acute burst fracture of L1, as well as 16 mm focal opacity of RLL. A dedicated CT Chest was performed 07/02/18 which demonstrated stable [id number] nodules in the RLL, largest measuring 9 x 10 mm. PET was then performed 08/04/19 which revealed the 13 mm RLL nodule to be FDG avid, with no other suspected sites of involvement. She was referred to thoracic surgery for further diagnostic work up and management. She ultimately underwent right basilar segmentectomy of the lower lobe and mediastinal lymph node dissection (10/06/2019). Her pathologic diagnosis determined to be pT1bN2 (stage IIIa). She started adjuvant chemotherapy with cisplatin/pemetrexed in October 2019. She received Cycle 2 on 12/07/2019, complicated by NAHUM. The start of cycle 3 was delayed and was given with carboplatin instead of cisplatin. It was not tolerated well, she had significant nausea and fatigue, and developed NAHUM. Treatment was discontinued and surveillance initiated. INTERVAL HISTORY: The patient presents to review recent CT scan and lab work from earlier this month. She is overall feeling well. Breathing easily without cough or SOB. No new areas of pain. Energy level is stable. She has remained afebrile. Stable appetite. No other acute concerns or complaints at this time. She denies any headaches. She is not smoking. ROS See HPI. ROS otherwise unremarkable. PMHX: Patient Active Problem List Diagnosis Chronic kidney disease Urinary obstruction Hypercalcemia Hypertension Tobacco abuse COPD (chronic obstructive pulmonary disease) Mixed anxiety and depressive disorder Non-small cell lung cancer, right Adenocarcinoma, acinar predominant with focal micro-papillary pattern, 1/12 LN, positive 8R node with isolated cancer cells, PDL 1 TPS 5% Lung nodule Dizziness Closed compression fracture of body of L1 vertebra PSHX: Past Surgical History: Procedure Laterality Date PRO BRONCHOSCOPY, DIAGNOSTIC N/A 10/06/2019 BRONCHOSCOPY, DIAGNOSTIC (WRVU 2.78) performed by Juan Ny MD at [facility] MAIN OR PRO INJECTION ANES AGENT &/ STEROID INTERCOSTAL NERVE EA ADDL LEVEL Right 10/06/2019 NERVE BLOCK, INTERCOSTAL NERVE, MULTIPLE (WRVU 1.68) performed by Juan Ny MD at [facility] MAIN OR PRO THORACOSCOPY SURG LOBECTOMY Right 10/06/2019 @ROBOT XI THORACOSCOPY,SURGICAL,W\LOBECTOMY,TOTAL OR SEGMENTAL (WRVU 24.64) performed by Juan Ny MD at [facility] MAIN OR PRO THORACOSCOPY WITH MEDIASTINAL AND REGIONAL LYMPHADENECTOMY Right 10/06/2019 @ROBOT XI THORACOSCOPY,SURG; W/MEDIASTINAL& REGIONAL LYMPHADENECTOMY (WRVU 4.12) performed by Juan Ny MD at [facility] MAIN OR PRO THORACOSCOPY WITH WEDGE RESECTION AND ANATOMIC LUNG RESECTN Right 10/06/2019 @ROBOT XI THORACOSCOPY,SURG; W/DX WEDGE RESC W/ANATOMIC LUNG RESC (WRVU 3) performed by Juan Ny MD at [facility] MAIN OR MEDS: Current Outpatient Medications on File Prior to Visit Medication Sig Dispense Refill mirtazapine (Remeron) 7.5 mg tablet Take 7.5 mg by mouth nightly. Ketoconazole 1 % Shampoo Q3D OneTouch Verio test strips Strip CHECK BLOOD SUGAR ONCE DAILY DIRECTED OneTouch Delica Plus Lancet 33 gauge Misc USE ONE LANCET DAILY DIRECTED empagliflozin (Jardiance) 10 mg Tablet Take 10 mg by mouth daily. atorvastatin (Lipitor) 10 mg Tablet Take 10 mg by mouth daily. gabapentin (Neurontin) 100 mg Capsule Take 600 mg by mouth 2 times daily. 2 caps in the morning and1 400mg cap in the evening along with 1 100mg capsule lisinopriL (Zestril) 10 mg Tablet Take 10 mg by mouth daily. fluticasone propion-salmeteroL (Advair HFA) 230-21 mcg/actuation HFA Aerosol Inhaler Inhale 1 puff into the lungs 2 times daily. Use spacer. 3 Inhaler 3 inhalational spacing device Spacer As directed. 1 each 2 acetaminophen (TYLENOL) 500 mg Tablet Take 2 tablets by mouth every 6 hours. 120 tablet 1 docusate sodium (COLACE) 100 mg Capsule Take 1 capsule by mouth 3 times daily. 90 capsule 1 senna (SENOKOT) 8.6 mg Tablet Take 2 tablets by mouth every evening. 60 tablet 1 amitriptyline (ELAVIL) 100 mg Tablet 50 mg nightly. 1 clonazePAM (KLONOPIN) 0.5 mg Tablet 1 mg nightly as needed. 3 FLOVENT HFA 110 mcg/actuation HFA Aerosol Inhaler 2 puffs 2 times daily as needed. 5 levothyroxine (SYNTHROID) 100 mcg Tablet 112 mcg daily. 3 metoprolol tartrate (LOPRESSOR) 50 mg Tablet 1 tablet 2 times daily. 4 albuterol 90 mcg/actuation HFA Aerosol Inhaler Inhale 2 puffs into the lungs every 4 hours as needed for Wheezing. Use with spacer omeprazole (PRILOSEC) 40 mg capsule Take 20 mg by mouth daily. lidocaine (Lidoderm) 5% Adhesive Patch, Medicated APPLY ONE PATCH TOPICALLY TO THE SKIN DIRECTED, 12 HOURS ON AND THEN 12 HOURS OFF magnesium oxide (Mag-Ox) 400 mg (241.3 mg magnesium) Tablet TAKE ONE TABLET BY MOUTH EVERY DAY (Patient not taking: Reported on 01/29/2024) 30 tablet 1 Current Facility-Administered Medications on File Prior to Visit Medication Dose Route Frequency Provider Last Rate Last Admin sodium chloride 0.9% infusion 500 mL/hr Intravenous Continuous Toño West MD Allergies: Allergies Allergen Reactions Cis Free Text Allergy COMBID. 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 Performance status was 1. Oropharynx was clear. Sclerae were anicteric. No significant lymphadenopathy in the cervical, supraclavicular or axillary regions. Chest was with vesicular breath sounds, scattered crackles, no wheezes. Heart was with regular rate and rhythm. Normal S1, S2. Abdomen was soft, nontender, nondistendedwith active bowel sounds. No hepatosplenomegaly. Extremities showed no edema, no calf tenderness. Neurologic exam was grossly nonfocal. Back revealed mild tenderness to palpation. LABORATORY STUDIES No results found for this or any previous visit (from the past 72 hour(s)). Labs revealed mildly elevated creatinine at 1.4. RADIOLOGY STUDIES REVIEWED: I personally reviewed a CT chest from 01/09/2024 showing postoperative changes, no growth, and no new lesions. ASSESSMENT: Marleni is a 59 y/o woman with stage IIIa NSCLC who underwent right basilar segmentectomy of the lower lobe and mediastinal lymph node dissection which revealed pT1bN2 adenocarinoma. She completed 3 cycles of adjuvant chemotherapy, 2 with cisplatin pemetrexed and 1 with carboplatin and pemetrexed because of toxicities and creatinine increase. These adjustments did not reduce the toxicities and treatment was stopped. There is no evidence for cancer recurrence on today's scan. Clinically she has improved significantly. I counseled the patient about her condition. She was advised that the risks for recurrence decrease over time but they do not disappear. She also remains at risk for another primary tumor of the aerodigestive tract. There is no indication for additional anticancer treatment at present. Regular surveillance should continue. I emphasized the importance of routine health maintenance that she performs to her primary care physician's office. She has previously been evaluated by a bilingual medical receptionist, not currently following. I advised her strongly to not restart smoking. We discussed nutrition and hydration. She will come back in 12 months for restaging evaluation. I encouraged her to call with questions or new symptoms. documented in this encounter Plan of Treatment Scheduled Orders Name Type Priority Associated Diagnoses Orde r Schedule CT Chest wo Contrast (Generic) Imaging Routine Non-small cell lung cancer, right Expected: 01/28/2025 (Approximate), Expires: 07/29/2025 CBC (with Diff) Lab Routine Non-small cell lung cancer, right Expected: 01/28/2025, Expires: 07/30/2025 Comprehensive metabolic panel (non-fasting) Lab Routine Non-small cell lung cancer, right Expected: 01/28/2025, Expires: 07/30/2025 Lactate Dehydrogenase Lab Routine Non-small cell lung cancer, right Expected: 01/28/2025, Expires: 07/30/2025 documented as of this encounter Visit Diagnoses Diagnosis Non-small cell lung cancer, right documented in this encounter Care Teams Music Educator Relationship Specialty Start Date End Date Kathy Wright, INSPECTOR [employer]CH[employer]S PCP - General Family Medicine 04/22/19 documented as of this encounter
--- OUTSIDE RECORDS SUMMARY | 2024-06-24 01:07 | XMS_ITS | Encounter Summary ---
Author Organization [facility] [place] [address] Care Team Providers Care Cardiothoracic Icu Rn Name Role Phone GerardoKathy nicolas Butch DANIEL Primary Care Provider [phone] Encounter Details Date Type Department Care Team (Late st Contact Info) Description 12/25/2023 [place] [address] Don Gardner, RN Social History Tobacco Use Types Packs/Day [...] on file documented as of this encounter Progress Notes * Don Gardner, RN - 12/25/2023 7:10 AM EST Pt has an open order for CT Chest ordered by Dr. West on 12/10/22. Per provider, Let's cancel the 12/10/22 scan . Order cancelled. documented in this encounter Plan of Treatment Not on file documented as of this encounter Visit Diagnoses Not on filedocumented in this encounter Care Teams Cardiothoracic Icu Rn Relationship Specialty Start Date End Date Kathy Wright APRN PCP - General Family Medicine 04/22/19 documented as of this encounter
--- OUTSIDE RECORDS SUMMARY | 2024-06-24 01:07 | XMS_ITS | Encounter Summary ---
Author Organization [facility] Address [address] [place] [address] Care Team Providers Care Credit Collections Manager Name Role Phone Felice Anahy Santa MIRANDA Primary Care Provider Encounter Details Date Type Department Care Team (Late st Contact Info) Description 05/16/2021 Lab Requisition [facility] Pathology & Laboratory Medicine - [address] [address] Mikki Maya, BARREL PAINTER [address] [facility] [place] [id number] Encounter for other general examination Social History Tobacco Use Types Packs/Day Years [...] Name Priority Date/Time Associated Diagnosis Comments PAP TEST Today 05/15/2021 11:20 EDT Encounter for other general examination HPV DNA DETECTION WITH GENOTYPING, PCR Today 05/15/2021 11:20 EDT Encounter for other general examination documented in this encounter Results * HUMAN PAPILLOMAVIRUS (HPV) DETECTION-HIGH RISK TYPES (05/15/2021 11:20 EDT) HPV other High Risk types, PCR Negative Negative 05/28/2021 16:17 EDT [facility] Comment:No E6 or E7 mRNA is detected from HPV types 16,18,31,33,35,39,45,51,52,56,58,59,66, and 68 by tea plantation worker mediated amplification. Papanicolaou smear specimen (specimen) CERVIX UTERI STRUCTURE / Unknown 05/15/2021 11:20 EDT 05/25/2021 10:08 EDT Mikki Maya APRN MICROBIOLOGY - GE NERAL ORDERABLES [facility] [address] [place] [address] * PAP TEST (05/15/2021 11:20 EDT) Specimens A. Cervix and/or Endocervix , ThinPrep Imaging System with Manual Evaluation 05/28/2021 16:17 EDT [facility] Specimen Adequacy Satisfactory for Evaluation - transformation zone component absent 05/28/2021 16:17 T [facility] General Categorization Negative for intraepithelial lesion or malignancy 05/28/2021 16:17 T [facility] Attestation . 05/28/2021 16:17 [facility] at 1617 Clinical History See below 05/28/20 16:17 T [facility] HPV The result for the Human Papillomavirus (HPV) Detection-High Risk Types is Negative. No E6 or E7 mRNA is detected from HPV types 16,18,31,33,35,39 ,45,51,52,56,58,5 9,66, and 68 by tea plantation worker mediated amplification.Smiley ting was performed on specimen [id number] and was resulted on 05/28/2021 1608 EDT by SOURAV, LAB INSTRUMENT RESULTS IN 05/28/2021 16:17 EDT [facility] Performing Lab [facility] 05/28/2021 16:17 EDT [facility] Scanned Images 05/28/2021 16:17 EDT [facility] Papanicolaou smear specimen (specimen) CERVIX UTERI STRUCTURE / Unknown 05/15/2021 11:20 EDT 05/16/2021 16:26 EDT Mikki Maya APRN PATHOLOGY ORDERAB LES [facility] [address] [place] [address] documented in this encounter Visit Diagnoses Diagnosis Encounter for other general examination documented in this encounter Care Teams Credit Collections Manager Relationship Specialty Start Date End Date Anahy Viveros NP [facility] [address] [place] [address] PCP - General 01/16/11 documented as of this encounter
--- OUTSIDE RECORDS SUMMARY | 2024-06-24 01:07 | XMS_ITS | Clinical Summary ---
Author Organization [facility] Address [facility] [place] [address] Care Team Providers Care Leather Novelty Parts Cutter Name Role Phone Kathy Wright Butch DANIEL Primary Care Provider [phone] Allergies Active Allergy Reactions Criticality Noted Date Comments Cis Free Text Allergy COMBID. Gluten 03/31/2023 Isopropamide Prochlorperazine Trazodone 03/31/2023 Medications Medication Sig Dispensed Refills Start Date End Date Status omeprazole (PRILOSEC) 40 mg capsule Take 20 mg by mouth daily. 01/30/2010 Active amitriptyline (ELAVIL) 100 mg Tablet 50 mg nightly. 1 02/24/2019 Active clonazePAM (KLONOPIN) 0.5 mg Tablet 1 mg nightly as needed. 3 04/08/2019 Active FLOVENT HFA 110 mcg/actuation HFA Aerosol Inhaler 2 puffs 2 times daily as needed. 5 01/11/2019 Active levothyroxine (SYNTHROID) 100 mcg Tablet 112 mcg daily. 3 04/16/2019 Active metoprolol tartrate (LOPRESSOR) 50 mg Tablet 1 tablet 2 times daily. 4 04/16/2019 Active albuterol 90 mcg/actuation HFA Aerosol Inhaler Inhale 2 puffs into the lungs every 4 hours as needed for Wheezing. Use with spacer Active acetaminophen (TYLENOL) 500 mg Tablet Take 2 tablets by mouth every 6 hours. 120 tablet 1 10/08/2019 Active docusate sodium (COLACE) 100 mg Capsule Take 1 capsule by mouth 3 times daily. 90 capsule 1 10/08/2019 Active senna (SENOKOT) 8.6 mg Tablet Take 2 tablets by mouth every evening. 60 tablet 1 10/08/2019 Active magnesium oxide (Mag-Ox) 400 mg (241.3 mg magnesium) Tablet TAKE ONE TABLET BY MOUTH EVERY DAY 30 tablet 1 03/06/2020 Active Additional Information Patient not taking.Reported on 01/29/2024 fluticasone propion-salmeteroL (Advair HFA) 230-21 mcg/actuation HFA Aerosol InhalerIndications: Chronic obstructive pulmonary disease, unspecified COPD type Inhale 1 puff into the lungs 2 times daily. Use spacer. 3 Inhaler 3 04/25/2020 Active inhalational spacing device SpacerIndications:C hronic obstructive pulmonary disease, unspecified COPD type As directed. 1 each 2 04/25/2020 Active gabapentin (Neurontin) 100 mg Capsule Take 600 mg by mouth 2 times daily. 2 caps in the morning and 1 400mg cap in the evening along with 1 100mg capsule Active lisinopriL (Zestril) 10 mg Tablet Take 10 mg by mouth daily. Active empagliflozin (Jardiance) 10 mg Tablet Take 10 mg by mouth daily. Active atorvastatin (Lipitor) 10 mg Tablet Take 10 mg by mouth daily. Active OneTouch Verio test strips Strip CHECK BLOOD SUGAR ONCE DAILY DIRECTED 09/01/2022 Active OneTouch Delica Plus Lancet 33 gauge Misc USE ONE LANCET DAILY DIRECTED 09/01/2022 Active Ketoconazole 1 % Shampoo Q3D 03/11/2023 Active lidocaine (Lidoderm) 5% Adhesive Patch, Medicated APPLY ONE PATCH TOPICALLY TO THE SKIN DIRECTED, 12 HOURS ON AND THEN 12 HOURS OFF 07/22/2023 Active mirtazapine (Remeron) 7.5 mg tablet Take 7.5 mg by mouth nightly. Active Hospital, Clinic, or Other Facility Administered Medication Ordered Dose Route Frequency Start Date End Date Status sodium chloride 0.9% infusionIndications:Non-smal l cell lung cancer, right 500 mL/hr IV CONTINUOUS 02/01/2020 Active Active Problems Problem Noted Date Diagnosed Date [...] Adenocarcinoma, acinar predominant with focal micro-papillary pattern, / LN, positive 8R node with isolated cancer cells, PDL 1 TPS 5% Lung nodule 09/16/2019 Dizziness 09/16/2019 Closed compression fracture of body of L1 verteb ra 05/04/2019 Family History Medical History Relation Comments Lung Cancer Father smoker Other Sister questionable goi ter in neck Relation Status Comments Father Sister Social History Tobacco Use Types Packs/Day Years [...] on file Sexual Orientation Not on file Last Filed Vital Signs Vital Sign Reading [...] Mass Index 28.11 01/29/2024 10:20 AM EST Plan of Treatment Health Maintenance Due Date Last Done Comments CT Colonography 1960 Colonoscopy 1960 Colorectal Cancer Screening 1960 FIT DNA 1960 FIT 1960 Sigmoidoscopy (10 year) with FIT yearly 1960 Sigmoidoscopy 1960 Pneumococcal Vaccine: At-Ris k 5-64yrs (1 of 2 - PCV) 1966 HIV screen 1978 Hepatitis C Screening 1978 Tdap adult 1979 Tetanus vaccine 1979 HPV test 1990 PAP Smear 1990 Breast Cancer Share Decision Needed 2000 Breast Cancer screening 2000 Zoster vaccine (1 of 2) 2010 Covid-19 Vaccine (1 - 2022-2 4 season) 2023 Influenza (Flu) vaccine (1 o f 1 - Influenza standard series) 08/01/2024 Diabetes Screening (HgbA1C o r Glucose) 01/19/2027 01/19/2024, 08/12/2023, 02/04/2023, Additional history exists Procedures Procedure Name Priority Date/Time Associated Diagnosis Comments COMPREHENSIVE METABOLIC PANEL (NON-FASTING) Routine 01/19/2024 from Last 3 Months or Most Recently Relevant to Health Maintenance Results * (ABNORMAL) Comprehensive metabolic panel (non-fasting) (01/19/2024) Glucose Lvl 141 BUN 12 Creatinine 1.4(A) 0.55 - 1.02 Sodium 142 Potassium 4.2 Chloride 104 Calcium 10.0 Albumin 3.5 Total Bilirubin 0.5 Alk Phos 105 AST 26 ALT 31 Blood 01/19/2024 Historical Provider CHEMISTRY ORDERAB LES from Last 3 Months or Most Recently Relevant to Health Maintenance Advance Directives Documents on File Type Date Recorded Patient Herbicide Service Sales Representative Expl anation Advance Directives and Livin g Will 09/22/2019 3:01 PM 02/22/2019 * Full Code (Latest Code Status on File) Date Activated Date Inactivated Comments 10/06/2019 6:36 PM 10/08/2019 4:40 PM Question Answer Comments Does patient have capacity to make decision: Yes Healthcare Agents on File Name Relationship Healthcare Agent [facility] Communication [employer] Child Health Care Agent Care Teams Leather Novelty Parts Cutter Relationship Specialty Start Date End Date Kathy Wright APRN PCP - General Family Medicine 04/22/19
--- OUTSIDE RECORDS SUMMARY | 2024-06-24 01:08 | XMS_ITS | Encounter Summary ---
[place] [address] Care Team Providers Care Dry Sand Molder Name Role Phone Kathy Wright APRN Primary Care Provider [phone] Encounter Details Date Type Department Care Team (Late st Contact Info) Description 02/21/2023 Orders Only Nephrology [place] [address] Lico Wing MD [facility] [place] [address] Hypercalcemia Social History Tobacco Use Types Packs/Day Years [...] as of this encounter Visit Diagnoses Diagnosis Hypercalcemia documented in this encounter Care Teams Dry Sand Molder Relationship Specialty Start Date End Date Kathy Wright APRN PCP - General Family Medicine 04/22/19 documented as of this encounter
--- OUTSIDE RECORDS SUMMARY | 2024-06-24 01:08 | XMS_ITS | Encounter Summary ---
Author Organization [facility] [place] [address] Care Team Providers Care Braid Maker Name Role Phone Kathy Wright APRN Primary Care Provider [phone] Encounter Details Date Type Department Care Team (Late st Contact Info) Description 02/21/2023 Telephone Ne[place] [address] Lico Wing MD [facility] [place] [address] Social History Tobacco Use Types Packs/Day Years [...] encounter Miscellaneous Notes * Telephone Encounter - Lico Wing MD - 02/21/2023 1:33 PM EDT Attempted to call patient to inform of repeat labs that resulted after last nephrology outpatient appointment. Unfortunately, phone numbers provided are inaccurate. I have ordered the nuclear medicine parathyroid scan given previous high PTH in setting of hypercalcemia. Will attempt to follow up next outpatient appointment. documented in this encounter Plan of Treatment Not on file documented as of this encounter Visit Diagnoses Not on filedocumented in this encounter Care Teams Braid Maker Relationship Specialty Start Date End Date Kathy Wright APRN PCP - General Family Medicine 04/22/19 documented as of this encounter
--- OUTSIDE RECORDS SUMMARY | 2024-06-24 01:08 | XMS_ITS | Encounter Summary ---
Author Organization [facility] [place] [address] Care Team Providers Care [employer]er Name Role Phone Kathy Wright APRN Primary Care Provider Encounter Details Date Type Department Care Team (Late st Contact Info) Description 08/12/2023 2:00 PM EDT Office Visit [place] [address] Lico Wing MD [facility] [place] [address] Stage 3b chronic kidney disease (Primary Dx); Urinary obstruction; Hypercalcemia; Non-small cell lung cancer, right; Tobacco abuse; Hypertension, unspecified type Social History Tobacco Use Types Packs/Day Years [...] Sign Reading Time Taken Comments Blood Pressure 117/99 08/12/2023 2:23 PM EDT Pulse 78 08/12/2023 2:23 PM EDT Temperature - - Respiratory Rate - - Oxygen Saturation 97% 08/12/2023 2:23 PM EDT Inhaled Oxygen Concentration - - Weight 72.6 kg (160 lb) 08/12/2023 2:23 PM EDT Height - - Body Mass Index 29.07 12/10/2022 1:53 PM EST documented in this encounter Patient Instructions * Patient Instructions* Lico Wing MD - 08/12/2023 2:00 PM EDT [ ] Get nuclear medicine scan of your parathyroid gland to assess calcium issues. [ ] Would hold off on a lot of calcium products in your diet * Attachments The following attachments cannot be sent through Care Everywhere. * Renal Disease: Chronic: General Info (Azerbaijani) documented in this encounter Progress Notes * Lico Wing MD - 08/12/2023 2:00 PM EDT Images from the original note were not included. [facility] DEPARTMENT OF NEPHROLOGY AND HYPERTENSION OUTPATIENT OFFICE NOTE PATIENT: Marleni Arreola : 1960 Kathy Wright APRN HPI: 62 yo F with PMHx, Past Surg Hx, FMHx, and Social Hx per below presenting for re-evaluation ofCKD and hypercalcemia CKD / Urinary Obstruction: - Presenting for follow up of CKD likely induced by cisplatin chemotherapy + obstruction + diabetes. - Patient today is doing well. She has no acute issues or complaints at this time relevant to her CKD. No urinary symptoms that she complains about including hematuria, proteinuria, frothiness, frequency, dysuria, pain, etc. Patient does straight cath herself more often compared to last evaluation I saw her. She feels like she is emptying her bladder well. - Patient did sustain a small UTI while on Jardiance which was successfully treated with antibiotics. No longer having UTI symptoms. - Patient currently tolerating Jardiance and lisinopril - She states she had a renal US about several months ago in early 2022 via her PCP office. She states the renal US was normal, but forgot the exact details of her report. - Labs today: - Hgb = 13.8 - Cr = 1.36 with eGFR = 44. Remainder of BMP normal. - K/L ratio = normal. M1 band = none detected - Vit D level normal; PTH = 117 Hx of Lung Cancer / Tobacco Abuse / Dysphagia: - Stage IIIa NSCLC who underwent right basilar segmentectomy of the lower lobe and mediastinal lymph node dissection which revealed pT1bN2 adenocarinoma. She completed 3 cycles of adjuvant chemotherapy, 2 with cisplatin pemetrexed and 1 with carboplatin and pemetrexed because of toxicities and creatinine increase. These adjustments did not reduce the toxicities and treatment was stopped. There isno evidence for cancer recurrence on most recent scans - Patient now has mitigated her smoking habits since last visit in nephrology clinic. - With her dysphagia and sore throat symptoms, patient saw her ENT physician. Saw ENT several months ago and states she had an office laryngoscopy with no abnormalities noted. Was educated to be hydrating herself more. No further interventions needed per patient. - Patient is still having to cut up her foods in order to facilitate swallowing though. Incidental Hypercalcemia / BMD: - Noted last visit to have hypercalcemia of up to 10.7. PTH however was inappropriately normal at 63. - Calcium levels today = 9.5 - Patient endorsing no symptoms of hypercalcemia including constipation, stones, arthralgias, etc. - Patient has not yet obtained her PTH scan yet. Has had no interventions to mitigate her calcium between last visit to today. HTN: - BP today = 117/99 while on Jardiance 10mg + Lisinopril 10mg + Lopressor 50mg BID. - Previously had HTN in the 180s systolics prior to any treatment. - No symptoms of HTN or hypotension at home. ROS: 4 point review of sytem was done, everything was negative except for what was mentioned above. PMHX: Past Medical History: Diagnosis Date Chronic pain fibromyalgia COPD (chronic obstructive pulmonary disease) COPD-wel controlled Fibromyalgia Gastroesophageal reflux takes antacids for which controls High blood pressure controllled with medications Motion sickness only on a boat Non-small cell lung cancer, right 11/09/2019 Type 2 diabetes mellitus Vertigo for 2 weeks-w/u neg-uses a cane to be steady PSURGHX: Past Surgical History: Procedure Laterality Date PRO BRONCHOSCOPY, DIAGNOSTIC N/A 10/06/2019 BRONCHOSCOPY, DIAGNOSTIC (WRVU 2.78) performed by Juan Ny MD at [facility] MAIN OR PRO INJECTION ANES AGENT &/ STEROID INTERCOSTAL NERVE EA ADDL LEVEL Right 10/06/2019 NERVE BLOCK, INTERCOSTAL NERVE, MULTIPLE (WRVU 1.68) performed by Juan Ny MD at [facility] MAIN OR PRO THORACOSCOPY SURG LOBECTOMY Right 10/06/2019 @ROBOT XI THORACOSCOPY,SURGICAL,W\LOBECTOMY,TOTAL OR SEGMENTAL (WRVU 24.64) performed by Jaun Ny MD at [facility] MAIN OR PRO THORACOSCOPY WITH MEDIASTINAL AND REGIONAL LYMPHADENECTOMY Right 10/06/2019 @ROBOT XI THORACOSCOPY,SURG; W/MEDIASTINAL& REGIONAL LYMPHADENECTOMY (WRVU 4.12) performed by Juan Ny MD at [facility] MAIN OR PRO THORACOSCOPY WITH WEDGE RESECTION AND ANATOMIC LUNG RESECTN Right 10/06/2019 @ROBOT XI THORACOSCOPY,SURG; W/DX WEDGE RESC W/ANATOMIC LUNG RESC (WRVU 3) performed by Juan Ny MD at [facility] MAIN OR FMX: Family History Problem Relation Age of Onset Lung Cancer Father smoker Other Sister questionable goiter in neck SOCIALHX: Social History Socioeconomic History Marital status: Spouse name: Not on file Number of children: Not on file Years of education: Not on file Highest education level: Not on file Occupational History Occupation: disability Comment: on disability since 2013 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 Tobacco Use Smoking status: Every Day Packs/day: 0.50 Years: 42.00 Pack years: 21.00 Types: Cigarettes Start date: 1975 Last attempt to quit: 08/02/2019 Years since quittin.0 Smokeless tobacco: Former Quit date: 07/02/2019 Tobacco comments: 1 or 2 a week Vaping Use Vaping Use: Never used Substance and Sexual Activity Alcohol use: Never Drug use: Yes Types: Marijuana Comment: has medical marjuana card. no recent use. Only takes edibles when she can afford it Sexual activity: Not on file Other Topics Concern Not on file Social History Narrative Not on file Social Determinants of Health Financial Resource Strain: Not on file Food Insecurity: Not on file Transportation Needs: Not on file Physical Activity: Not on file Housing Stability: Not on file ALLERGIES: Allergies Allergen Reactions Cis Free Text Allergy COMBID. Gluten Isopropamide Prochlorperazine Trazodone VITALS: Last value Range last 24 hrs Temperature Temp: -- Heart Rate Heart Rate: 78 Heart Rate: [78] Blood Pressure BP: (!) 117/99 BP: (117)/(99) Respiratory Rate Resp: -- SpO2 SpO2: 97 % SpO2: [97 %] PHYSICAL EXAM: Patient is awake alert not in acute distress No jaundice oral mucosa moist Neck- supple trachea central Chest- bilateral air entry present clear to auscultation no wheeze no crepitation CVS-S1-S2 present, no murmur regurgitation gallops. Abdomen-nontender nondistended, bowel sounds present. Extremities-peripheral pulses present, no edema Neuro-patient is awake alert, moving all 4 limbs, motor examination is grossly normal. No asterixis. STUDIES: LABS: CBC: Recent Labs 08/12/23 1301 01/21/23 1329 12/10/22 1123 WBC 11.4* 10.3* 11.2* HGB 13.8 14.2 14.3 PLATELET 261 239 257 Chemistry: Recent Labs 08/12/23 1301 02/04/23 0000 01/21/23 1329 NA 141 140 139 K 4.6 4.7 4.7 CL 103 105 101 CO2 26 25 28 BUN 15 21 18 CREATININE 1.36* 1.7 1.38* GLUCOSE 154 182 102 Recent Labs 08/12/23 1301 02/04/23 0000 01/21/23 1329 CALCIUM 9.5 9.7 10.7* MAGNESIUM 0.86 -- 0.87 PHOS 3.2 -- 4.1 LFT's: Recent Labs 08/12/23 1301 01/21/23 1329 12/10/22 1123 BILITOT 0.2 0.3 0.3 ALBUMIN 4.2 4.4 4.4 ALKPHOS 130* 136* 129* ALT 36* 27 35* AST 33* 22 31* Prot/Cre Ratio Date Value Ref Range Status 08/12/2023 <0.1 ratio Final Lab Results Component Value Date TPROTEINPEP 6.8 08/12/2023 ALBELECT 4.22 08/12/2023 Lab Results Component Value Date MICROALBUR 6.7 08/12/2023 No results found for: HA1C Lab Results Component Value Date PTH 117 (H) 08/12/2023 CALCIUM 9.5 08/12/2023 CAWBION 1.14 02/04/2023 PHOS 3.2 08/12/2023 25-OH Vit D Total (ng/mL) Date Value Status 08/12/2023 31 Final IMAGING: n/a URINE MICROSCOPY: SG = 1.005; pH = 7; Leuk = +2; Nit = negative; Protein = trace; Glucose = 100; Ketones negative; Uro = negative; Bili = negative; Heme = trace; Leuks present + talc/starch crystals. ASSESSMENTS + IMPRESSIONS: - Chronic Kidney Disease Stage III / Urinary Obstruction - Incidental Transient Hypercalcemia / BMD - Hx of Lung Cancer / Tobacco Abuse / Dysphagia - Hypertension CKD / Urinary Obstruction: Hx of CKD likely induced by cisplatin chemotherapy + obstruction + now diabetes. Her renal function for the most part is stable. Patient has completed chemotherapy, but still has obstruction in voiding as a prominent issue. Her obstruction is currently addressed with self- catheterization which the patient has increased in frequency now. With her diagnosis of diabetes, patient is currently on GDMT with SGLT2 inhibition + RAAS inhibition. Moving forward, management focuses on continuing straight catheterization + Jardiance therapy + lisinopril therapy. We can send offurine for urine protein to complete CKD workup. I will inquire with her PCP to send renal US imaging results to nephrology clinic. Incidental Transient Hypercalcemia / BMD: Patient initially had a transient hypercalcemia last visit in nephrology office with inappropriate normal PTH levels. PTH level today is 117 with normalized calcium levels. Normal Vit D levels noted as well. The transient hypercalcemia is still bothersome and concerning for a primary PTH dependent mechanism. If it was a secondary PTH process, her serum calcium would most likely be lower or below normal reference range. I think at this time it is still worth pursuing the primary hyperPTH nuclear medicine scan to assess for any evidence of primary hyperPTH. We will hold off on calcitriol supplementation for her PTH until this scan is obtained. Hx of Lung Cancer / Tobacco Abuse / Dysphagia: S/p lobectomy and chemo for lung cancer. Cancer not recurrent. Patient was evaluated by ENT for dysphagia and a concern for laryngeal cancer; however, patient reports office laryngoscopy did not show any major evidence of malignancy. She is still having to resort to cut her food into pieces in order to facilitate swallowing. Patient ultimately benefit from a dysphagia workup. HTN: BP stable at 117/99 while on Jardiance 10mg + Lisinopril 10mg + Lopressor 50mg BID. OK to continue management for now. PLAN: - Send for urine protein/Cr ratio + urine albumin/Cr ratio + serum GGT + UPEP - Patient informed to obtain nuclear medicine PTH scan - OK to continue Jardiance 10mg + Lisinopril 10mg + Lopressor 50mg BID - Discussed with Dr. Obrien: will hold off on calcitriol given likelihood of primary hyperPTH. - HTN education + CKD education + BP monitoring education + hypercalcemia education + calcium dietary interventions provided to patient - Recommend continued self-catheterizations with frequent phone alarms to straight cath - Recommend dysphagia GI evaluation - Request from PCP to obtain renal US results Avoid nephrotoxic medications including NSAIDs and contrast. Thanks for letting us participate in the care of this patient. 08/13/2023 Lico Wing M.D., M.P.H., M.H.A., M.A. PGY-V Nephrology-Hypertension Fellow Page # [phone] [facility] [address] floor, Board Certified Orthodontist [address] [place] [address] * Jeovany Obrien MD - 08/12/2023 2:00 PM EDT I saw and examined this patient with the renal fellow, Dr. Wing, and I agree with the assessment and recommendations as documented.Stable to improved CKD G3b/A1 attributed to prior exposure tonephrotoxin (cisplatin) as well as DM and prior obstruction. He calcium has normalized and the PTH has climbed. The pattern remains atypical for secondary hpth and we think it would be prudent to look for primary hpth before adding calcitriol. documented in this encounter Plan of Treatment Not on file documented as of this encounter Procedures Procedure Name Priority Date/Time Associated Diagnosis Comments HC PROTEIN, QUANTITATIVE, URINE STAT 08/12/2023 2:00 PM EDT Stage 3b chronic kidney disease HC CREATININE - NON BLOOD Routine 08/12/2023 2:00 PM EDT Stage 3b chronic kidney disease documented in this encounter Results * U Albumin/Cre Ratio (08/12/2023 2:00 PM EDT) Alb/Cr Ratio, Random 12 0 - 29 mcg/mg Cr [facility] Comment: Reference Ranges: <30 mcg/mg: Normal 30-300 mcg/mg: Moderately increased albuminuria.* >300 mcg/mg: Severely increased albuminuria. * ACEI or ARB recommended if diabetic; suggested if BP>130/80 without diabetes ACEI or ARB strongly recommended if diabetic; recommended if BP>130/80 without diabetes Two of three specimens collected within a 3 to 6 month period should be abnormal before considering a patient to have albuminuria. Transient causes: exercise, fever, infection, CHF, marked hyperglycemia or hypertension. Persistent albuminuria indicates CKD and is an independent risk factor for ASCVD. ADA Standards of Medical Care in Diabetes-2016; KDIGO: Kidney International Supplements (2012) 2, 357? 362 U Albumin Conc, Random 6.7 mg/L [facility] U Creatinine 58 mg/dL [facility] Urine 08/12/2023 2:00 PM EDT 08/12/2023 4:39 PM EDT Narrative Resulting Agency Comment Spec In Lab Jeovany Obrien MD URINE ORDERABLES [facility] [place] [address] * Protein/Creatinine Ratio, urine (08/12/2023 2:00 PM EDT) U Creatinine 58 mg/dL [facility] U Protein Ran <6 0 - 12 mg/dL [facility] Prot/Cre Ratio <0.1 ratio [facility] Urine 08/12/2023 2:00 PM EDT 08/12/2023 4:39 PM EDT Narrative Resulting Agency Comment Spec In Lab Jeovany Obrien MD URINE ORDERABLES Performing Organization Address [facility]/ZIP Co de Phone Number [facility] [place] [address] * (ABNORMAL) PTH (08/12/2023 1:01 PM EDT) Pathologist [facility] PTH 117(H) 15 - 65 pg/mL [facility] Blood 08/12/2023 1:01 PM EDT 08/12/2023 1:24 PM EDT Narrative Resulting Agency Comment Spec In Lab Samuel Little MD CHEMISTRY ORDERABLES Performing Organization Address [facility] Co de Phone Number [facility] [place] [address] * (ABNORMAL) Free Light Chains, Serum (08/12/2023 1:01 PM EDT) [facility] Free Light Chain 3.58(H) 0.72 - 2.75 mg/dL [facility] Lambda Free Light Chain 2.32(H) 0.57 - 2.15 mg/dL [facility] [place] Lambda FLC Ratio 1.5431 0.4000 - 2.5800 [facility] Blood 08/12/2023 1:01 PM EDT 08/12/2023 1:25 PM EDT Narrative Resulting Agency Comment Spec In Lab Samuel Little MD CHEMISTRY ORDERABLES Performing Organization Address [facility]/ZIP Co de Phone Number [facility] [place] [address] * Protein Electrophoresis, serum (08/12/2023 1:01 PM EDT) Total Prot Elec 6.8 6.1 - 8.0 g/dL [facility] Albumin Elect 4.22 3.20 - 5.20 g/dL [facility] Alpha1-Globul in 0.20 0.10 - 0.30 g/dL [facility] Alpha2-Globul in 0.79 0.40 - 0.90 g/dL [facility] Beta Globulin 0.82 0.50 - 1.00 g/dL [facility] Gamma Globulin 0.77 0.50 - 1.30 g/dL [facility] M1 Band None Detected None Detected [facility] Blood 08/12/2023 1:01 PM EDT 08/12/2023 1:25 PM EDT Narrative Resulting Agency Comment Spec In Lab Samuel Little MD CHEMISTRY ORDERABLES Performing Organization Address City/[facility] Co de Phone Number [facility] [place] [address] * Phosphorus (08/12/2023 1:01 PM EDT) Phosphorus 3.2 2.5 - 4.5 mg/dL [facility] Blood 08/12/2023 1:01 PM EDT 08/12/2023 1:25 PM EDT Narrative Resulting Agency Comment Spec In Lab Samuel Little MD CHEMISTRY ORDERABLES Performing Organization Address City/[facility] Co de Phone Number [facility] [place] [address] * Magnesium (08/12/2023 1:01 PM EDT) Magnesium 0.86 0.69 - 1.07 mmol/L [facility] Blood 08/12/2023 1:01 PM EDT 08/12/2023 1:25 PM EDT Narrative Resulting Agency Comment Spec In Lab Samuel Little MD CHEMISTRY ORDERABLES Performing Organization Address City/[facility]/ZIP Co de Phone Number [facility] [place] [address] * (ABNORMAL) Comprehensive metabolic panel (non-fasting) (08/12/2023 1:01 PM EDT) Glucose Lvl 154 65 - 199 mg/dL [facility] Comment:Diabetes: >=200 mg/d L plus symptoms BUN 15 8 - 18 mg/dL [facility] Creatinine 1.36(H) 0.70 - 1.20 mg/dL [facility] Sodium 141 135 - 145 mmol/L [facility] Potassium 4.6 3.5 - 5.0 mmol/L [facility] Comment: Please note: ??Patients with WBC >100,000 may have falsely elevated Potassium levels. ??For accurate Potassium quantification in these patients send serum separator tube (gold top) for subsequent determinations. ??Contact the Clinical Chemistry Laboratory if there are any questions. Chloride 103 98 - 107 mmol/L [facility] CO2 26 22 - 31 mmol/L [facility] Anion Gap 12 5 - 15 mmol/L [facility] Calcium 9.5 8.5 - 10.5 mg/dL [facility] Total Protein 7.1 6.1 - 8.0 g/dL [facility] Albumin 4.2 3.2 - 5.2 g/dL [facility] AST 33(H) 0 - 30 unit/L [facility] ALT 36(H) 0 - 30 unit/L [facility] Alk Phos 130(H) 35 - 105 unit/L [facility] Total Bilirubin 0.2 0.2 - 1.3 mg/dL [facility] Estimated GFR 44(L) >=60 mL/min/1. 73 m?? [facility] Comment: This patient's estimated [...] Little MD CHEMISTRY ORDERABLES Performing Organization Address City/[facility] Co de Phone Number [facility] [place] [address] documented in this encounter Visit Diagnoses Diagnosis Stage 3b chronic kidney disease- Primary Urinary obstruction Urinary obstruction, unspecified Hypercalcemia Non-small cell lung cancer, right Tobacco abuse Tobacco use disorder Hypertension, unspecified type documented in this encounter Care Teams [employer] Relationship Specialty Start Date End Date Kathy Wright APRN PCP - General Family Medicine 04/22/19 documented as of this encounter
--- OUTSIDE RECORDS SUMMARY | 2024-06-24 01:08 | XMS_ITS | Encounter Summary ---
Author Organization [facility] [place] [address] Care Team Providers Care Cable Lacer Name Role Phone Kathy Wright MARÍA Primary Care Provider [phone] Reason for Referral * Diagnostic Test (Routine) - Closed Specialty Diagnoses / Procedures Referred By Contac t Referred To Contact Radiology Diagnoses Non-small cell lung cancer, right Procedures CT Chest wo Contrast (Generic) Toño West MD [facility] [place] [address] [facility] [place] [address] Referral ID Status Reason Start Date Expiration Date V isits Requested Visits Authorized [id number] Closed Specialty Service Requested 07/24/2021 01/24/2023 1 1 Reason for Visit * Diagnostic Test (Routine) - Closed Specialty Diagnoses / Procedures Referred By Contvincent t Referred To Contact Radiology Diagnoses Non-small cell lung cancer, right Procedures CT Chest wo Contrast (Generic) Toño West MD [facility] [place] [address] [facility] [place] [address] Referral ID Status Reason Start Date Expiration Date V isits Requested Visits Authorized [id number] Closed Specialty Service Requested 07/24/2021 01/24/2023 1 1 Encounter Details Date Type Department Care Team (Late st Contact Info) Description 03/12/2022 11:44 AM EDT - 03/12/2022 12:50 PM EDT Hospital [place] [address] Toño West MD [facility] [place] [address] Non-small cell lung cancer, right Discharge Disposition: Home Social History Tobacco Use Types Packs/Day Years Used Date Smoking Tobacco: Former Cigarettes 0.5 43.7 1 976 - 08/02/2019 Smokeless Tobacco: Former Quit: 07/02/2019 Comments:1 or 2 a week Alcohol Use Standard Drinks/Week Comments Never 0 (1 standard drink = 0.6 oz pur e alcohol) Sex and Gender Information Value Date Recorded Sex Assigned at Not on file Gender Identity Not on file Sexual Orientation Not on file documented as of this encounter Medications at Time of Discharge Medication Sig Dispensed Refills Start Date End Date gabapentin (Neurontin) 100 mg Capsule Take 600 mg by mouth 2 times daily. 2 caps in the morning and 1 400mg cap in the evening along with 1 100mg capsule lisinopriL (Zestril) 10 mg Tablet Take 10 mg by mouth daily. fluticasone propion-salmeteroL (Advair HFA) 230-21 mcg/actuation HFA Aerosol InhalerIndications:Financial Services Professional doc obstructive pulmonary disease, unspecified COPD type Inhale 1 puff into the lungs 2 times daily. Use spacer. 3 Inhaler 3 04/25/2020 inhalational spacing device SpacerIndications:Chron ic obstructive pulmonary disease, unspecified COPD type As directed. 1 each 2 04/25/2020 magnesium oxide (Mag-Ox) 400 mg (241.3 mg magnesium) Tablet TAKE ONE TABLET BY MOUTH EVERY DAY 30 tablet 1 03/06/2020 acetaminophen (TYLENOL) 500 mg Tablet Take 2 tablets by mouth every 6 hours. 120 tablet 1 10/08/2019 docusate sodium (COLACE) 100 mg Capsule Take 1 capsule by mouth 3 times daily. 90 capsule 1 10/08/2019 senna (SENOKOT) 8.6 mg Tablet Take 2 tablets by mouth every evening. 60 tablet 1 10/08/2019 amitriptyline (ELAVIL) 100 mg Tablet 50 mg nightly. 1 02/24/2019 clonazePAM (KLONOPIN) 0.5 mg Tablet 1 mg nightly as needed. 3 04/08/2019 FLOVENT HFA 110 mcg/actuation HFA Aerosol Inhaler 2 puffs 2 times daily as needed. 5 01/11/2019 levothyroxine (SYNTHROID) 100 mcg Tablet 112 mcg daily. 3 04/16/2019 metoprolol tartrate (LOPRESSOR) 50 mg Tablet 1 tablet 2 times daily. 4 04/16/2019 albuterol 90 mcg/actuation HFA Aerosol Inhaler Inhale 2 puffs into the lungs every 4 hours as needed for Wheezing. Use with spacer omeprazole (PRILOSEC) 40 mg capsule Take 20 mg by mouth daily. 01/30/2010 famotidine (Pepcid) 20 mg Tablet Take 20 mg by mouth 2 times daily. 01/21/2023 melatonin 5 mg Tablet Take by mouth. 08/01 potassium chloride ER (K-Dur/Klor-Con) 10 mEq Tablet Sustained Release Take 4 tablets by mouth daily. 120 tablet 01/18/2020 01/21/2023 dexamethasone (Decadron) 4 mg Tablet Take 1 tablet by mouth daily. 4 tablet 01/13/2020 01/21/2023 diphenhydrAMINE/aluminu m-magnesium hydroxide with simethicone/lidocaine (BMX) (6.67 mg-0.83 mg-13.33 mg-1.33 mg/mL) oral liquid Take 5 mLs by mouth 4 times daily. 200 mL 1 11/25/2019 01/21/2023 benzonatate (TESSALON) 100 mg Capsule Take 1 capsule by mouth 3 times daily as needed for Cough. 30 tablet 11/22/2019 01/21/2023 ondansetron (ZOFRAN) 4 mg TabletIndications:Non-s mall cell lung cancer, right Take 1 tablet by mouth every 8 hours as needed for Nausea. 20 tablet 3 11/12/2019 01/21/2023 enalapril-hydrochloroth iazide (VASERETIC) 10-25 mg Tablet 1 tablet daily. 5 03/20/2019 3 buPROPion (WELLBUTRIN) 100 mg Tablet 1 tablet daily. 04/19/2019 01/21/2023 cholecalciferol, Vitamin D3, 1,000 unit Tablet 1,000 Units daily. 04/05/2019 3 cloNIDine (CATAPRES) 0.1 mg Tablet 1 tablet daily. 3 02/13/2019 01/21/2023 Ranitidine HCl (ZANTAC) 300 mg Capsule 1 capsule nightly. 5 04/27/2019 023 documented as of this encounter Plan of Treatment Not on file documented as of this encounter Procedures Procedure Name Priority Date/Time Associated Diagnosis Comments CT CHEST WO CONTRAST (GENERIC) Routine 03/12/2022 11:54 AM EDT Non-small cell lung cancer, right documented in this encounter Results * CT Chest wo Contrast (Generic) (03/12/2022 11:54 AM EDT) Anatomical Region Laterality Modality Chest Computed Tomogra phy 03/12/2022 12:1 0 PM EDT Impressions 03/12/2022 12:35 PM EDT Stable exam. No locally recurrent nor metastatic disease in the chest. Thank you for letting us participate in the care of this patient. ??If you are a health care provider and have any questions regarding this report, please contact the number below. ??For patients who have questions please contact the health career technical education instructor that requested your imaging first. ? Narrative 03/12/2022 12:35 PM EDT EXAMINATION: CT CHEST WO CONTRAST (GENERIC) CLINICAL HISTORY: Non-small cell lung cancer, post treatment, no evidence of disease Lung cancer s/p treatment- surveillance scan TECHNIQUE: 3.75 mm thick axial contiguous sections were obtained through the chest via helical acquisition without intravenous contrast administration. Thin-section reconstructions as well as coronal and sagittal reformatted images were generated. COMPARISON: July 24, 2021 FINDINGS: Pulmonary parenchyma: Stable linear nodular thickening with retraction at right basilar segmentectomy margin. Soft tissue band best elucidated on orthogonal imaging. No new nodules or masses. Airways: No central filling defect Pleura: No pleural effusion Lymph nodes: No pathologically enlarged hilar nor mediastinal lymph nodes Heart, pericardium, and great vessels: No pericardial effusion Other mediastinal structures: No significant findings. Lower neck: No significant findings. Upper abdomen: Diffuse fatty infiltration of the liver. Stable right renal parenchymal scarring. Adrenal contours are stable. Calcified splenic granulomata. Body wall soft tissues: Stable asymmetric left breast soft tissues captured in the [id number]. Skeletal structures: Stable long-standing T12 compression deformity. No suspicious lytic expansile nor sclerotic osseous lesions. Procedure Note Sheela Grace MD - 03/12/2022 EXAMINATION: CT CHEST WO CONTRAST (GENERIC) CLINICAL HISTORY: Non-small cell lung cancer, post treatment, no evidenceof disease Lung cancer s/p treatment- surveillance scan TECHNIQUE: 3.75 mm thick axial contiguous sections were obtained throughthe chest via helical acquisition without intravenous contrastadministration. Thin-section reconstructions as well as coronal and sagittal reformattedimages were generated. COMPARISON: July 24, 2021 FINDINGS: Pulmonary parenchyma: Stable linear nodular thickening with retraction atright basilar segmentectomy margin. Soft tissue band best elucidated onorthogonal imaging. No new nodules or masses. Airways: No central filling defect Pleura: No pleural effusion Lymph nodes: No pathologically enlarged hilar nor mediastinal lymphnodes Heart, pericardium, and great vessels: No pericardial effusion Other mediastinal structures: No significant findings. Lower neck: No significant findings. Upper abdomen: Diffuse fatty infiltration of the liver. Stable rightrenal parenchymal scarring. Adrenal contours are stable. Calcified splenic granulomata. Body wall soft tissues: Stable asymmetric left breast soft tissuescaptured in the [id number]. Skeletal structures: Stable long-standing T12 compression deformity. No suspicious lytic expansile nor sclerotic osseous lesions. IMPRESSION Stable exam. No locally recurrent nor metastatic disease in the chest. Thank you for letting us participate in the care of this patient. If youare a health care provider and have any questions regarding this report,please contact the number below. For patients who have questions please contactthe health career technical education instructor that requested your imaging first. Toño West MD IMG CT ORDERABLE S documented in this encounter Visit Diagnoses Diagnosis Non-small cell lung cancer, right documented in this encounter Care Teams Cable Lacer Relationship Specialty Start Date End Date Kathy Wright, BOLOGNA LACER PCP - General Family Medicine 04/22/19 documented as of this encounter
--- OUTSIDE RECORDS SUMMARY | 2024-06-24 01:08 | XMS_ITS | Encounter Summary ---
Author Organization [facility] [place] [address] Care Team Providers Care Gmat Instructor Name Role Phone Kathy Wright APRN Primary Care Provider [phone] Reason for Visit * Reason Comments Follow-up Lung Cancer Encounter Details Date Type Department Care Team (Late st Contact Info) Description 12/10/2022 1:45 PM EST Office Visit Hematology [place] [address] Toño West MD [facility] [place] [address] Non-small cell lung cancer, right (Primary Dx) [...] Sign Reading Time Taken Comments Blood Pressure 117/63 12/10/2022 1:53 PM EST Pulse 80 12/10/2022 1:53 PM EST Temperature 36.3 ??C (97.3 ??F) 12/10/2022 1:53 PM ES T Respiratory Rate 18 12/10/2022 1:53 PM EST Oxygen Saturation 96% 12/10/2022 1:53 PM EST Inhaled Oxygen Concentration - - Weight 71.6 kg (157 lb 13.6 oz) 12/10/2022 1:53 PM EST Height 158 cm (5' 2.21) 12/10/2022 1:53 PM EST Body Mass Index 28.68 12/10/2022 1:53 PM EST documented in this encounter Progress Notes * Toño West MD - 12/10/2022 1:45 PM EST Images from the original note were not included. Oncology Follow-Up Patient Visit Reason for visit: F/U Stage IIIa lung cancer Patient prefers to be called: Marleni HISTORY OF PRESENT ILLNESS: The patient is a 62 y.o. woman with a PMH notable for COPD, fibromyalgia and falls who presented with stage IIIa (pT1bN2) lung cancer. After a fall she underwent a??CT Abd/Pelvis??(performed 04/18/19) that revealed??colitis, acute burst fracture of L1, as well as 16 mm focal opacity of RLL.??A dedicated??CT Chest was performed??07/02/18??which demonstrated stable [id number] nodules in the RLL, largest measuring 9 x 10 mm. PET was then performed??08/04/19??which revealed the 13 mm RLL nodule to be FDG avid, with no other suspected sites of involvement.??She was??referred to thoracic surgery for further??diagnostic work up and management. She ultimately underwent right basilar segmentectomy of the lower lobe and mediastinal lymphnode dissection (10/06/2019). Her pathologic diagnosis determined to be pT1bN2 (stage IIIa). She started adjuvant chemotherapy with cisplatin/pemetrexed in October 2019. She received Cycle 2 on 12/07/2019, complicated by NAHUM. The start of cycle 3 was delayed and was given with carboplatin instead of cisplatin. It was not tolerated well, she had significant nausea and fatigue, and developed NAHUM. Pilar tment was discontinued and surveillance initiated. INTERVAL HISTORY: The patient reports feeling better than she has felt over the past several years. She has more energy and is being more active. Her breathing is with less exertional dyspnea and no dyspnea at rest, she has fluctuating cough without hemoptysis. She is beginning to exercise more and is monitoring herdiet, and she was recently found to have diabetes. Her appetite is good, no signs or symptoms of aspiration, no nausea. Bowel movements are regular for her, no diarrhea, no bleeding. She has not had any fevers. No dysuria. She denies any headaches. She is not smoking. ROS See HPI. ROS otherwise unremarkable. PMHX: Patient Active Problem List Diagnosis ??? Non-small cell lung cancer, right Adenocarcinoma, acinar predominant with focal micro-papillary pattern, 12/12 LN, positive 8R node with isolated cancer cells, PDL 1 TPS 5% ??? COPD (chronic obstructive pulmonary disease) ??? Mixed anxiety and depressive disorder ??? Lung nodule ??? Dizziness ??? Closed compression fracture of body of L1 vertebra PSHX: Past Surgical History: Procedure Laterality Date ??? PRO BRONCHOSCOPY, DIAGNOSTIC N/A 10/06/2019 BRONCHOSCOPY, DIAGNOSTIC (WRVU 2.78) performed by Juan Ny MD at [facility] MAIN OR ? ? PRO INJECTION ANES AGENT &/ STEROID INTERCOSTAL NERVE EA ADDL LEVEL Right 10/06/2019 NERVE BLOCK, INTERCOSTAL NERVE, MULTIPLE (WRVU 1.68) performed by Juan Ny MD at [facility] MAIN OR ??? PRO THORACOSCOPY SURG LOBECTOMY Right 10/06/2019 @ROBOT XI THORACOSCOPY,SURGICAL,W\LOBECTOMY,TOTAL OR SEGMENTAL (WRVU 24.64) performed by Juan Ny MD at [facility] MAIN OR ??? PRO THORACOSCOPY WITH MEDIASTINAL AND REGIONAL LYMPHADENECTOMY Right 10/06/2019 @ROBOT XI THORACOSCOPY,SURG; W/MEDIASTINAL& REGIONAL LYMPHADENECTOMY (WRVU 4.12) performed by Juan Ny MD at [facility] MAIN OR ??? PRO THORACOSCOPY WITH WEDGE RESECTION AND ANATOMIC LUNG RESECTN Right 10/06/2019 @ROBOT XI THORACOSCOPY,SURG; W/DX WEDGE RESC W/ANATOMIC LUNG RESC (WRVU 3) performed by Juan Ny MD at [facility] MAIN OR MEDS: Current Outpatient Medications on File Prior to Visit Medication Sig Dispense Refill ??? empagliflozin (Jardiance) 10 mg Tablet Take 10 mg by mouth daily. ??? atorvastatin (Lipitor) 10 mg Tablet Take 10 mg by mouth daily. ??? gabapentin (Neurontin) 100 mg Capsule Take 600 mg by mouth 2 times daily. 2 caps 100mg in the morning and 1 400mg in the evening. ??? lisinopriL (Zestril) 10 mg Tablet Take 10 mg by mouth daily. ??? inhalational spacing device Spacer As directed. 1 each 2 ??? magnesium oxide (Mag-Ox) 400 mg (241.3 mg magnesium) Tablet TAKE ONE TABLET BY MOUTH EVERY DAY 30 tablet 1 ??? acetaminophen (TYLENOL) 500 mg Tablet Take 2 tablets by mouth every 6 hours. 120 tablet 1 ??? docusate sodium (COLACE) 100 mg Capsule Take 1 capsule by mouth 3 times daily. 90 capsule 1 ??? senna (SENOKOT) 8.6 mg Tablet Take 2 tablets by mouth every evening. 60 tablet 1 ??? amitriptyline (ELAVIL) 100 mg Tablet 1 tablet nightly. 1 ??? cholecalciferol, Vitamin D3, 1,000 unit Tablet 1,000 Units daily. ??? clonazePAM (KLONOPIN) 0.5 mg Tablet 1 tablet nightly as needed. 3 ??? FLOVENT HFA 110 mcg/actuation HFA Aerosol Inhaler 2 puffs 2 times daily as needed. 5 ??? levothyroxine (SYNTHROID) 100 mcg Tablet 112 mcg daily. 3 ??? metoprolol tartrate (LOPRESSOR) 50 mg Tablet 1 tablet 2 times daily. 4 ??? albuterol 90 mcg/actuation HFA Aerosol Inhaler Inhale 2 puffs into the lungs every 4 hours as needed for Wheezing. Use with spacer ??? omeprazole (PRILOSEC) 40 mg capsule Take by mouth. ??? famotidine (Pepcid) 20 mg Tablet Take 20 mg by mouth 2 times daily. ??? melatonin 5 mg Tablet Take by mouth. ??? fluticasone propion-salmeteroL (Advair HFA) 230-21 mcg/actuation HFA Aerosol Inhaler Inhale 1 puff into the lungs 2 times daily. Use spacer. (Patient not taking: Reported on 07/24/2021) 3 Inhaler 3 ??? potassium chloride ER (K-Dur/Klor-Con) 10 mEq Tablet Sustained Release Take 4 tablets by mouth daily. (Patient not taking: Reported on 01/23/2021) 120 tablet 0 ??? dexamethasone (Decadron) 4 mg Tablet Take 1 tablet by mouth daily. (Patient not taking: Reported on 07/24/2021) 4 tablet 0 ??? diphenhydrAMINE/aluminum-magnesium hydroxide with simethicone/lidocaine (BMX) (6.67 mg-0.83 mg-13.33 mg-1.33 mg/mL) oral liquid Take 5 mLs by mouth 4 times daily. (Patient not taking: Reported on12/10/2022) 200 mL 1 ??? benzonatate (TESSALON) 100 mg Capsule Take 1 capsule by mouth 3 times daily as needed for Cough. (Patient not taking: Reported on 12/15/2019) 30 tablet 0 ??? ondansetron (ZOFRAN) 4 mg Tablet Take 1 tablet by mouth every 8 hours as needed for Nausea. (Patient not taking: Reported on 12/15/2019) 20 tablet 3 ??? enalapril-hydrochlorothiazide (VASERETIC) 10-25 mg Tablet 1 tablet daily. 5 ??? buPROPion (WELLBUTRIN) 100 mg Tablet 1 tablet daily. ??? cloNIDine (CATAPRES) 0.1 mg Tablet 1 tablet daily. 3 ??? Ranitidine HCl (ZANTAC) 300 mg Capsule 1 capsule nightly. 5 Current Facility-Administered Medications on File Prior to Visit Medication Dose Route Frequency Provider Last Rate Last Admin ??? sodium chloride 0.9% infusion 500 mL/hr Intravenous Continuous Toño West MD Allergies: Allergies Allergen Reactions ??? Cis Free Text Allergy COMBID. ??? Isopropamide ??? 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 [...] revealed mild tenderness to palpation. LABORATORY STUDIES Recent Results (from the past 72 hour(s)) Lactate Dehydrogenase Result Value Ref Range LDH 211 110 - 220 unit/L Comprehensive metabolic panel (non-fasting) Result Value Ref Range Glucose Lvl 125 65 - 199 mg/dL BUN 17 8 - 18 mg/dL Creatinine 1.29 (H) 0.70 - 1.20 mg/dL Sodium 138 135 - 145 mmol/L Potassium 4.4 3.5 - 5.0 mmol/L Chloride 102 98 - 107 mmol/L CO2 25 22 - 31 mmol/L Anion Gap 11 5 - 15 mmol/L Calcium 10.3 8.5 - 10.5 mg/dL Total Protein 7.9 6.1 - 8.0 g/dL Albumin 4.4 3.2 - 5.2 g/dL AST 31 (H) 0 - 30 unit/L ALT 35 (H) 0 - 30 unit/L Alk Phos 129 (H) 35 - 105 unit/L Total Bilirubin 0.3 0.2 - 1.3 mg/dL Estimated GFR 47 (L) >=60 mL/min/1.73 m?? Hemogram Result Value Ref Range WBC 11.2 (H) 4.0 - 9.5 x10(3)/mcL RBC 4.69 4.00 - 5.21 x10(6)/mcL Hemoglobin 14.3 11.7 - 15.5 g/dL Hematocrit 42.4 35.7 - 45.8 % MCV 90.4 82.6 - 94.4 fL MCH 30.5 27.1 - 32.0 pg MCHC 33.7 31.7 - 35.0 g/dL Platelets 257 145 - 357 x10(3)/mcL RDWSD 44.1 37.0 - 46.0 fL RDWCV 13.4 11.5 - 14.1 % MPV 9.6 7.6 - 12.9 fL nRBC % Auto 0.0 % nRBC Abs Auto 0.000 0.000 - 0.000 x10(3)/mcL Differential, Automated Result Value Ref Range Neutrophils % 58.5 % Neutr Abs (ANC) 6.54 (H) 1.70 - 6.10 x10(3)/mcL Lymphocytes % 29.1 % Lymphocytes Abs 3.2 0.9 - 3.2 x10(3)/mcL Monocytes % 5.5 % Monocyte Abs 0.6 0.3 - 0.9 x10(3)/mcL Eosinophils % 4.7 % Eosinophils Abs 0.5 (H) 0.0 - 0.4 x10(3)/mcL Basophils % 1.0 % Basophils Abs 0.1 0.0 - 0.1 x10(3)/mcL Immature Gran % 1.20 % Wilma Gran Abs 0.13 (H) 0.00 - 0.04 x10(3)/mcL Labs revealed mildly elevated creatinine at 1.29. RADIOLOGY STUDIES REVIEWED: I personally reviewed a CT chest showing postoperative changes, no growth, and no [...] performs to her primary care physician's office. We discussed putting him related renal damage, she is followed by a air conditioning specialist. I advised her strongly to not restart smoking. We discussed nutrition and hydration. She will come back in 9 months for restaging evaluation. I encouraged her to call with questions or new symptoms. documented in this encounter Plan of Treatment Scheduled Orders Name Type Priority Associated Diagnoses Orde r Schedule Lactate Dehydrogenase Lab Routine Non-small cell lung cancer, right Expected: 12/10/2023 (Approximate), Expires: 06/10/2024 CBC (with Diff) Lab Routine Non-small cell lung cancer, right Expected: 12/10/2023 (Approximate), Expires: 06/10/2024 Comprehensive metabolic panel (non-fasting) Lab Routine Non-small cell lung cancer, right Expected: 12/10/2023 (Approximate), Expires: 06/10/2024 documented as of this encounter Visit Diagnoses Diagnosis Non-small cell lung cancer, right- Primary documented in this encounter Care Teams Gmat Instructor Relationship Specialty Start Date End Date Kathy Wright APRN PCP - General Family Medicine 04/22/19 documented as of this encounter
--- OUTSIDE RECORDS SUMMARY | 2024-06-24 01:08 | XMS_ITS | Encounter Summary ---
Author Organization [facility] [place] [address] Care Team Providers Care Computer Repairer Name Role Phone Kathy Wright Butch DANIEL Primary Care Provider [phone] Encounter Details Date Type Department Care Team (Late st Contact Info) Description 08/24/2020 Telephone [place] [address] John Heredia CMA Social History Tobacco Use Types Packs/Day Years Used Date Smoking Tobacco: Former Cigarettes 0.5 43.7 1 976 - 08/02/2019 Smokeless Tobacco: Former Quit: 07/02/2019 Alcohol Use Standard Drinks/Week Comments Never 0 (1 standard drink = 0.6 oz pur e alcohol) Sex and Gender Information Value Date Recorded Sex Assigned at Not on file Gender Identity Not on file Sexual Orientation Not on file documented as of this encounter Miscellaneous Notes * Telephone Encounter - John Heredia MA - 08/24/2020 1:21 PM EDT 5C Layout Man Pre-Telemedicine Phone Note [x] Patient not reached [] Patient reached and the following information was reviewed/obtained per protocol: [] Confirmed patient name and date of [] Confirmed location of patient - TeleVisit is taking place in [] [place] [] [place] [] [place] [] [place] [] Confirmed Pt has MyDH [] If not on myDH, working on signing up for myDH [] If no MyDH is made, how is Dr sending Pt the zoom link for video [] By Cell phone [] By E-mail [] If Pt is a phone visit how is Dr contacting Pt [] Home phone [] Cell phone [] Other number [] Reviewed patient medications [] Documented self-reported vitals: [] Weight: [] Height: [] Other information or concerns documented in this encounter Plan of Treatment Not on file documented as of this encounter Visit Diagnoses Not on filedocumented in this encounter Care Teams Computer Repairer Relationship Specialty Start Date End Date Kathy Wright APRN PCP - General Family Medicine 04/22/19 documented as of this encounter
--- OUTSIDE RECORDS SUMMARY | 2024-06-24 01:08 | XMS_ITS | Encounter Summary ---
Author Organization [facility] Address [facility] [place] [address] Care Team Providers Care Ampoule Washing Machine Operator Name Role Phone GerardoKathy nicolas Butch DANIEL Primary Care Provider [phone] Encounter Details Date Type Department Care Team (Latest Contact Info) Description 12/10/2022 11:15 AM EST - 12/10/2022 11:51 AM EST Hospital Encounter [place] [address] Non-small cell lung cancer, right Discharge Disposition: [...] Sig Dispensed Refills Start Date End Date OneTouch Verio test strips Strip CHECK BLOOD SUGAR ONCE DAILY DIRECTED 09/01/2022 OneTouch Delica Plus Lancet 33 gauge Misc USE ONE LANCET DAILY DIRECTED 09/01/2022 gabapentin (Neurontin) 100 mg Capsule Take 600 mg by mouth 2 times daily. 2 caps in the morning and 1 400mg cap in the evening along with 1 100mg capsule lisinopriL (Zestril) 10 mg Tablet Take 10 mg by mouth daily. fluticasone propion-salmeteroL (Advair HFA) 230-21 mcg/actuation HFA Aerosol InhalerIndications:Manager Copy doc obstructive pulmonary disease, unspecified COPD type [...] Take 20 mg by mouth daily. 01/30/2010 celecoxib (CeleBREX) 50 mg Capsule TAKE ONE CAPSULE BY MOUTH EVERY MORNING WITH FOOD 08/02/2022 01/21/2023 Paxlovid, EUA, 150-100 mg Tablets, Dose Pack (EUA) TAKE TWO TABLETS BY MOUTH TWICE A DAY FOR FIVE DAYS 09/16/2022 01/21/2023 predniSONE (Deltasone) 20 mg Tablet TAKE TWO TABLETS BY MOUTH EVERY MORNING FOR 4 DAYS THEN STOP 07/26/2022 01/21/2023 famotidine (Pepcid) 20 mg Tablet Take 20 [...] Procedure Name Priority Date/Time Associated Diagnosis Comments HEMOGRAM STAT 12/10/2022 11:23 AM EST Non-small cell lung cancer, right DIFFERENTIAL, AUTOMATED STAT 12/10/2022 11:23 AM EST Non-small cell lung cancer, right HC VENIPUNCTURE STAT 12/10/2022 11:23 AM EST Non-small cell lung cancer, right HC LACTIC DEHYDROGENASE STAT 12/10/2022 11:23 AM EST Non-small cell lung cancer, right COMPREHENSIVE METABOLIC PANEL (NON-FASTING) STAT 12/10/2022 11:23 AM EST Non-small cell lung cancer, right documented in this encounter Results * (ABNORMAL) Differential, Automated (12/10/2022 11:23 AM EST) Neutrophils % 58.5 % [facility] Neutr Abs (ANC) 6.54(H) 1.70 - 6.10 x10(3)/[facility] Lymphocytes % 29.1 % [facility] Lymphocytes Abs 3.2 0.9 - 3.2 x10(3)/[facility] Monocytes % 5.5 % [facility] Monocyte Abs 0.6 0.3 - 0.9 x10(3)/[facility] Eosinophils % 4.7 % [facility] Eosinophils Abs 0.5(H) 0.0 - 0.4 x10(3)/[facility] Basophils % 1.0 % [facility] Basophils Abs 0.1 0.0 - 0.1 x10(3)/[facility] Immature Gran % 1.20 % [facility] Comment: Immature granulocytes(IG's)percentage and absolute count will include metamyelocytes, myelocytes, and promyelocytes. Blood smears from CBCs yielding IG's will be scanned manually for concordance. If this scan disagrees with the automated IG or if promyelocytes are noted, a manual differential will be performed. Wilma Gran Abs 0.13(H) 0.00 - 0.04 x10(3)/[facility] Blood 12/10/2022 11:2 3 AM EST 12/10/2022 11:31 AM EST Narrative Resulting Agency Comment Spec In Lab Adrienne Mendez DRYER OPERATOR HEMATOLOGY ORDERAB LES [facility] [place] [address] * (ABNORMAL) Hemogram (12/10/2022 11:23 AM EST) WBC 11.2(H) 4.0 - 9.5 x10(3)/[facility]OR[facility] RBC 4.69 4.00 - 5.21 x10(6)/[facility] Hemoglobin 14.3 11.7 - 15.5 g/dL [facility] Hematocrit 42.4 35.7 - 45.8 % [facility] MCV 90.4 82.6 - 94.4 [facility] MCH 30.5 27.1 - 32.0 pg [facility] MCHC 33.7 31.7 - 35.0 g/dL [facility] Platelets 257 145 - 357 x10(3)/[facility] RDWSD 44.1 37.0 - 46.0 [facility] RDWCV 13.4 11.5 - 14.1 % [facility] MPV 9.6 7.6 - 12.9 [facility] nRBC % Auto 0.0 % [facility] nRBC Abs Auto 0.000 0.000 - 0.000 x10(3)/[facility] Blood 12/10/2022 11:2 3 AM EST 12/10/2022 11:31 AM EST Narrative Resulting Agency Comment Spec In Lab Adrienne Mendez DRYER OPERATOR HEMATOLOGY ORDERAB LES [facility] [place] [address] * (ABNORMAL) Comprehensive metabolic panel (non-fasting) (12/10/2022 11:23 AM EST) Glucose Lvl 125 65 - 199 mg/dL [facility] Comment:Diabetes: >=200 mg/d L plus symptoms BUN 17 8 - 18 mg/dL [facility] Creatinine 1.29(H) 0.70 - 1.20 mg/dL [facility] Sodium 138 135 - 145 mmol/L [facility] Potassium 4.4 3.5 - 5.0 mmol/L [facility] Comment: Please note: ??Patients with WBC >100,000 may have falsely elevated Potassium levels. ??For accurate Potassium quantification in these patients send serum separator tube (gold top) for subsequent determinations. ??Contact the Clinical Chemistry Laboratory if there are any questions. Chloride 102 98 - 107 mmol/L [facility] CO2 25 22 - 31 mmol/L [facility] Anion Gap 11 5 - 15 mmol/L [facility] Calcium 10.3 8.5 - 10.5 mg/dL [facility] Total Protein 7.9 6.1 - 8.0 g/dL [facility] Albumin 4.4 3.2 - 5.2 g/dL [facility] AST 31(H) 0 - 30 unit/L [facility] ALT 35(H) 0 - 30 unit/L [facility] Alk Phos 129(H) 35 - 105 unit/L [facility] Total Bilirubin 0.3 0.2 - 1.3 mg/dL [facility] Estimated GFR 47(L) >=60 mL/min/1. 73 m?? [facility] Comment: This patient's estimated GFR was [...] and symptoms in addition to eGFR. Blood 12/10/2022 11:2 3 AM EST 12/10/2022 11:31 AM EST Narrative Resulting Agency Comment Spec In Lab Adrienne Mendez DRYER OPERATOR CHEMISTRY ORDERABL ES Performing Organization Address City/[facility] Co de Phone Number [facility] [place] [address] * Lactate Dehydrogenase (12/10/2022 11:23 AM EST) LDH 211 110 - 220 unit/L [facility] Blood 12/10/2022 11:2 3 AM EST 12/10/2022 11:31 AM EST Narrative Resulting Agency Comment Spec In Lab Adrienne Mendez DRYER OPERATOR CHEMISTRY ORDERABL ES Performing Organization Address [facility] Co de Phone Number [facility] [place] [address] documented in this encounter Visit Diagnoses Diagnosis Non-small cell lung cancer, right documented in this encounter Care Teams Ampoule Washing Machine Operator Relationship Specialty Start Date End Date Kathy Wright APRN PCP - General Family Medicine 04/22/19 documented as of this encounter
--- OUTSIDE RECORDS SUMMARY | 2024-06-24 01:08 | XMS_ITS | Encounter Summary ---
[facility] Organization [facility] [place] [address] Care Team Providers Care Forest Landscape Ecology Professor Name Role Phone GerardoKathy nicolas Butch DANIEL Primary Care Provider [phone] Reason for Referral * Diagnostic Test (Routine) - Closed Specialty Diagnoses / Procedures Referred By Janie cassidy Referred To Contact Radiology Diagnoses Non-small cell lung cancer, right Procedures CT Chest w Contrast Adrienne Mendez APRN [facility] HEMATOLOGY-[place] [address] [facility] [place] [address] Referral ID Status Reason Start Date Expiration Date V isits Requested Visits Authorized [id number] Closed Specialty Service Requested 05/29/2021 11/28/2022 1 1 Encounter Details Date Type Department Care Team (Late st Contact Info) Description 05/29/2021 Orders Only Hematology [place] [address] Adrienne Mendez APRN [facility] HEMATOLOGY-[place] [address] Non-small cell lung cancer, right Social History [...] on file documented as of this encounter Results * CT Chest w Contrast (07/24/2021 2:33 PM EDT) Anatomical Region Laterality Modality Chest Computed Tomogra phy 07/24/2021 2:49 PM EDT Impressions 07/24/2021 4:26 PM EDT No evidence of local recurrence or distant metastases. I have personally reviewed the image(s) and the resident's interpretation and agree with the findings, Roderick Valadez MD at 07/24/2021 4:26 PM Thank you for letting us participate in the care of this patient. ??If you are a health care provider and have any questions regarding this report, please contact the number below. ??For patients who have questions please contact the health care team coordinator scheduler that requested your imaging first. ? Electronically signed by: Roderick Valadez MD, [facility] ([phone]), at 07/24/2021 4:26 PM Narrative 07/24/2021 4:26 PM EDT EXAMINATION: CT CHEST W CONTRAST CLINICAL HISTORY: Non-small cell lung cancer, post treatment Hx Stage IIIA NSCLC, on surveillance, r/o disease recurrence or new primary TECHNIQUE: 3.75 mm thick axial contiguous sections were obtained through the chest via helical acquisition after the intravenous administration of contrast, Administered 60.0 ml of VISIPAQUE 320.00 mg/ml. Thin-section reconstructions as well as coronal and sagittal reformatted images were generated. COMPARISON: CT chest 08/21/2020 FINDINGS: Pulmonary parenchyma: Status post right basilar segmentectomy with unchanged mild linear scarring at the right lung base. No suspicious pulmonary nodules. Airways: Large airways are patent. Pleura: No pneumothorax or pleural effusion. Lymph nodes: No significant findings. Heart, pericardium, and great vessels: No cardiomegaly or pericardial effusion. Scattered aortic and coronary calcifications. Other mediastinal structures: No significant findings. Lower neck: No significant findings. Upper abdomen: Diffuse hepatic steatosis. Unchanged atrophic right kidney. Unchanged calcified splenic granuloma. The right kidney is atrophic. Body wall soft tissues: No significant findings. Skeletal structures: Unchanged L1 compression deformity. No suspicious osseous lesions. Procedure Note Roderick Valadez MD - 07/24/2021 EXAMINATION: CT CHEST W CONTRAST CLINICAL HISTORY: Non-small cell lung cancer, post treatment Hx Stage IIIA NSCLC, on surveillance, r/o disease recurrence or newprimary TECHNIQUE: 3.75 mm thick axial contiguous sections were obtained throughthe chest via helical acquisition after the intravenous administration ofcontrast, Administered 60.0 ml of VISIPAQUE 320.00 mg/ml. Thin-sectionreconstructions as well as coronal and sagittal reformatted images were generated. COMPARISON: CT chest 08/21/2020 FINDINGS: Pulmonary parenchyma: Status post right basilar segmentectomy withunchanged mild linear scarring at the right lung base. No suspicious pulmonarynodules. Airways: Large airways are patent. Pleura: No pneumothorax or pleural effusion. Lymph nodes: No significant findings. Heart, pericardium, and great vessels: No cardiomegaly or pericardialeffusion. Scattered aortic and coronary calcifications. Other mediastinal structures: No significant findings. Lower neck: No significant findings. Upper abdomen: Diffuse hepatic steatosis. Unchanged atrophic rightkidney. Unchanged calcified splenic granuloma. The right kidney is atrophic. Body wall soft tissues: No significant findings. Skeletal structures: Unchanged L1 compression deformity. No suspiciousosseous lesions. IMPRESSION No evidence of local recurrence or distant metastases. I have personally reviewed the image(s) and the resident's interpretationand agree with the findings, Roderick Valadez MD at 07/24/2021 4:26 PM Thank you for letting us participate in the care of this patient. If youare a health care provider and have any questions regarding this report,please contact the number below. For patients who have questions please contactthe health care team coordinator scheduler that requested your imaging first. Electronically signed by: Roderick Valadez MD, [facility]([phone]), at 07/24/2021 4:26 PM Adrienne Mendez MANAGER ART IMG CT ORDERABLES * (ABNORMAL) Lactate Dehydrogenase (07/24/2021 1:22 PM EDT) LDH 270(H) 110 - 220 unit/L [facility] Blood 07/24/2021 1:22 PM EDT 07/24/2021 1:33 PM EDT Narrative Resulting Agency Comment Spec In Lab Adrienne Mendez MANAGER ART CHEMISTRY ORDERABL ES [facility] [place] [address] * (ABNORMAL) Comprehensive metabolic panel (non-fasting) (07/24/2021 1:22 PM EDT) Glucose Lvl 88 65 - 199 mg/dL [facility] Comment:Diabetes: >=200 mg/d L plus symptoms BUN 16 8 - 18 mg/dL [facility] Creatinine 1.31(H) 0.70 - 1.20 mg/dL [facility] Sodium 140 135 - 145 mmol/L [facility] Potassium 5.0 3.5 - 5.0 mmol/L [facility] Comment: Please note: ??Patients with WBC >100,000 may have falsely elevated Potassium levels. ??For accurate Potassium quantification in these patients send serum separator tube (gold top) for subsequent determinations. ??Contact the Clinical Chemistry Laboratory if there are any questions. Chloride 103 98 - 107 mmol/L [facility] CO2 26 22 - 31 mmol/L [facility] Anion Gap 11 5 - 15 mmol/L [facility] Calcium 9.6 8.5 - 10.5 mg/dL [facility] Total Protein 7.3 6.1 - 8.0 gm/dL [facility] Albumin 4.5 3.2 - 5.2 gm/dL [facility] AST 66(H) 0 - 30 unit/L [facility] ALT 88(H) 0 - 30 unit/L [facility] Alk Phos 119(H) 35 - 105 unit/L [facility] Total Bilirubin 0.2 0.2 - 1.3 mg/dL [facility] Estimated GFR 44(L) >=60 mL/min/1. 73 m?? [facility] Comment: This patient? s estimated glomerular filtration rate (eGFR) is between 44 mL/min/1.73 m2 (patients with less muscle mass) and 51 mL/min/1.73 m2 (patients with more muscle mass) as determined by the CKD-EPI equation. Assessment of eGFR is not appropriate when creatinine concentrations are rapidly changing. For clinical decisions where creatinine clearance will affect therapy, a 24-hour urine creatinine clearance may be advised. Assignment of CKD stage 1 - 5 for patients with an eGFR near the transition point between stages may be based on clinical assessment of muscle mass and symptoms in addition to eGFR. Blood 07/24/2021 1:22 PM EDT 07/24/2021 1:33 PM EDT Narrative Resulting Agency Comment Spec In Lab Adrienne Mendez APRN CHEMISTRY ORDERABL ES [facility] [place] [address] documented in this encounter Visit Diagnoses Diagnosis Non-small cell lung cancer, right Non-small cell lung cancer, right documented in this encounter Care Teams Forest Landscape Ecology Professor Relationship Specialty Start Date End Date Kathy Wright APRN PCP - General Family Medicine 04/22/19 documented as of this encounter
--- OUTSIDE RECORDS SUMMARY | 2024-06-24 01:08 | XMS_ITS | Encounter Summary ---
[place] [address] Care Team Providers Care Chainstitch Sewing Machine Operator Name Role Phone Kathy Wright APRN Primary Care Provider [phone] Encounter Details Date Type Department Care Team (Late st Contact Info) Description 07/16/2022 Telephone Nephrology [place] [address] Misti Lopes Social History Tobacco Use Types [...] * Telephone Encounter - Misti Lopes - 07/16/2022 11:11 AM EDT Tried to call patient to schedule a follow up appointment, couldn't leave message, therefor sendingout letter. documented in this encounter Plan of Treatment Not on file documented as of this encounter Visit Diagnoses Not on filedocumented in this encounter Care Teams Chainstitch Sewing Machine Operator Relationship Specialty Start Date End Date Kathy Wright, MARÍA PCP - General Family Medicine 04/22/19 documented as of this encounter
--- OUTSIDE RECORDS SUMMARY | 2024-06-24 01:08 | XMS_ITS | Encounter Summary ---
[facility] [place] [address] Care Team Providers Care Hr Administrative Assistant Name Role Phone GerardoKathy nicolas Butch DANIEL Primary Care Provider [phone] Encounter Details Date Type Department Care Team (Late st Contact Info) Description 02/07/2023 External Results [place] [address] Maame Curtis APRN [facility] [place] [address] Social History Tobacco Use Types Packs/Day Years [...] Procedure Name Priority Date/Time Associated Diagnosis Comments CALCIUM IONIZED SERUM Routine 02/04/2023 U ALBUMIN/CRE RATIO Routine 02/04/2023 BASIC METABOLIC PANEL (NON-FASTING) Routine 02/04/2023 documented in this encounter Results * Calcium, Ionized, Serum (02/04/2023) Calcium, bld, ionized 1.14 Blood 02/04/2023 Historical Provider CHEMISTRY ORDERAB LES * Basic Metabolic Panel (non-fasting) (02/04/2023) Glucose Lvl 182 BUN 21 Creatinine 1.7 Estimated GFR 33.7 Sodium 140 Potassium 4.7 Chloride 105 CO2 25 Calcium 9.7 Anion Gap 10 TSH 0.48 Free T4 1.12 Blood 02/04/2023 Historical Provider CHEMISTRY ORDERAB LES * U Albumin/Cre Ratio (02/04/2023) Alb/Cr Ratio, Random 22.4 U Albumin Conc, Random 14.7 U Creatinine 65.59 Urine 02/04/2023 Historical Provider URINE ORDERABLES documented in this encounter Visit Diagnoses Not on filedocumented in this encounter Care Teams Hr Administrative Assistant Relationship Specialty Start Date End Date Kathy Wright APRN PCP - General Family Medicine 04/22/19 documented as of this encounter
--- OUTSIDE RECORDS SUMMARY | 2024-06-24 01:08 | XMS_ITS | Encounter Summary ---
[place] [address] Care Team Providers Care Hand Pleater Name Role Phone Kathy Wright Butch DANIEL Primary Care Provider [phone] Encounter Details Date Type Department Care Team (Late st Contact Info) Description 03/03/2023 Telephone [place] [address] Misti Lopes Social History Tobacco Use Types [...] * Telephone Encounter - Misti Lopes - 03/03/2023 10:08 AM EDT LM for patient to call regarding appointment on 03/25/23 with . Pt will need labs prior to appointment. Just need to know if patient would like to get labs done on the same day as appointment or if she would like to go closer to home . documented in this encounter Plan of Treatment Not on file documented as of this encounter Visit Diagnoses Not on filedocumented in this encounter Care Teams Hand Pleater Relationship Specialty Start Date End Date Kathy Wright APRN PCP - General Family Medicine 04/22/19 documented as of this encounter
--- OUTSIDE RECORDS SUMMARY | 2024-06-24 01:08 | XMS_ITS | Encounter Summary ---
[place] [address] Care Team Providers Care Analytical Chemistry Teacher Name Role Phone Kathy Wright APRN Primary Care Provider [phone] Encounter Details Date Type Department Care Team (Late st Contact Info) Description 01/23/2022 Telephone [place] [address] Misti Lopes Social History Tobacco Use Types Packs/Day Years Used Date Smoking Tobacco: Light Smoker Cigarettes 0.5 43.7 Started: 1975; L ast attempted to quit: 08/02/2019 Smokeless Tobacco: Former [...] * Telephone Encounter - Misti Lopes - 01/23/2022 2:58 PM EST LMOM for patient to call and schedule follow up appointment. Will send out letter documented in this encounter Plan of Treatment Not on file documented as of this encounter Visit Diagnoses Not on filedocumented in this encounter Care Teams Analytical Chemistry Teacher Relationship Specialty Start Date End Date Kathy Wright APRN PCP - General Family Medicine 04/22/19 documented as of this encounter
--- OUTSIDE RECORDS SUMMARY | 2024-06-24 01:08 | XMS_ITS | Encounter Summary ---
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 doc obstructive pulmonary disease, unspecified COPD type [...] Priority Date/Time Associated Diagnosis Comments HEMOGRAM STAT 03/12/2022 1:12 PM EDT Non-small cell lung cancer, right DIFFERENTIAL, AUTOMATED STAT 03/12/2022 1:12 PM EDT Non-small cell lung cancer, right HC CBC,PLT & AUTO DIFF STAT 2 1:12 PM EDT Non-small cell lung cancer, right HC LACTIC DEHYDROGENASE STAT 03/12/2022 1:12 PM EDT Non-small cell lung cancer, right COMPREHENSIVE METABOLIC PANEL (NON-FASTING) STAT 03/12/2022 1:12 PM EDT Non-small cell lung cancer, right documented in this encounter Results * (ABNORMAL) Differential, Automated (03/12/2022 1:12 PM EDT) Neutrophils % 55.9 % [facility] Neutr Abs (ANC) 4.96 1.70 - 6.10 x10(3)/[facility] Lymphocytes % 32.5 % [facility] Lymphocytes Abs 2.9 0.9 - 3.2 x10(3)/[facility] Monocytes % 6.3 % [facility] Monocyte Abs 0.6 0.3 - 0.9 x10(3)/[facility] Eosinophils % 3.5 % [facility] Eosinophils Abs 0.3 0.0 - 0.4 x10(3)/[facility] Basophils % 0.9 % [facility] Basophils Abs 0.1 0.0 - 0.1 x10(3)/[facility] Immature Gran % 0.90 % [facility] Comment: Immature granulocytes(IG's)percentage and absolute count will include metamyelocytes, myelocytes, and promyelocytes. Blood smears from CBCs yielding IG's will be scanned manually for concordance. If this scan disagrees with the automated IG or if promyelocytes are noted, a manual differential will be performed. Wilma Gran Abs 0.08(H) 0.00 - 0.04 x10(3)/[facility] Blood 03/12/2022 1:12 PM EDT 03/12/2022 1:30 PM EDT Narrative Resulting Agency Comment Spec In Lab Toño West MD HEMATOLOGY ORDER KATHY [facility] [place] [address] * Hemogram (03/12/2022 1:12 PM EDT) WBC 8.9 4.0 - 9.5 x10(3)/[facility] RBC 4.01 4.00 - 5.21 x10(6)/[facility] Hemoglobin 12.7 11.7 - 15.5 g/dL [facility] Hematocrit 36.9 35.7 - 45.8 % [facility] MCV 92.0 82.6 - 94.4 [facility] MCH 31.7 27.1 - 32.0 pg [facility] MCHC 34.4 31.7 - 35.0 g/dL [facility] Platelets 229 145 - 357 x10(3)/[facility] RDWSD 45.6 37.0 - 46.0 [facility] RDWCV 13.5 11.5 - 14.1 % [facility] MPV 9.7 7.6 - 12.9 [facility] nRBC % Auto 0.0 % [facility] nRBC Abs Auto 0.000 0.000 - 0.000 x10(3)/[facility] Blood 03/12/2022 1:12 PM EDT 03/12/2022 1:30 PM EDT Narrative Resulting Agency Comment Spec In Lab Toño West MD HEMATOLOGY ORDER KATHY Performing Organization Address City/[facility]/ZIP Co de Phone Number [facility] [place] [address] * (ABNORMAL) Lactate Dehydrogenase (03/12/2022 1:12 PM EDT) LDH 245(H) 110 - 220 unit/L [facility] Blood 03/12/2022 1:12 PM EDT 03/12/2022 1:30 PM EDT Narrative Resulting Agency Comment Spec In Lab Toño West MD CHEMISTRY ORDERA BLES Performing Organization Address City/[facility]/ZIP Co de Phone Number [facility] [place] [address] * (ABNORMAL) Comprehensive metabolic panel (non-fasting) (03/12/2022 1:12 PM EDT) Glucose Lvl 110 65 - 199 mg/dL [facility] Comment:Diabetes: >=200 mg/d L plus symptoms BUN 13 8 - 18 mg/dL [facility] Creatinine 1.13 0.70 - 1.20 mg/dL [facility] Sodium 139 135 - 145 mmol/L [facility] Potassium 4.5 3.5 - 5.0 mmol/L [facility] Comment: Please note: ??Patients with WBC >100,000 may have falsely elevated Potassium levels. ??For accurate Potassium quantification in these patients send serum separator tube (gold top) for subsequent determinations. ??Contact the Clinical Chemistry Laboratory if there are any questions. Chloride 105 98 - 107 mmol/L [facility] CO2 22 22 - 31 mmol/L [facility] Anion Gap 12 5 - 15 mmol/L [facility] Calcium 9.8 8.5 - 10.5 mg/dL [facility] Total Protein 7.4 6.1 - 8.0 g/dL [facility] Albumin 4.4 3.2 - 5.2 g/dL [facility] AST 65(H) 0 - 30 unit/L [facility] ALT 82(H) 0 - 30 unit/L [facility] Alk Phos 107(H) 35 - 105 unit/L [facility] Total Bilirubin 0.4 0.2 - 1.3 mg/dL [facility] Estimated GFR 52(L) >=60 mL/min/1. 73 m?? [facility] Comment: This patient? s estimated glomerular filtration rate (eGFR) is between 52 mL/min/1.73 m2 (patients with less muscle mass) and 61 mL/min/1.73 m2 (patients with more muscle mass) [...] and symptoms in addition to eGFR. Blood 03/12/2022 1:12 PM EDT 03/12/2022 1:30 PM EDT Narrative Resulting Agency Comment Spec In Lab Toño West MD CHEMISTRY ORDERA BLEVinod [facility] [place] [address] documented in this encounter Visit Diagnoses Diagnosis Non-small cell lung cancer, right documented in this encounter Care Teams Manager Of Training Relationship Specialty Start Date End Date Kathy Wright APRN PCP - General Family Medicine 04/22/19 documented as of this encounter
--- OUTSIDE RECORDS SUMMARY | 2024-06-24 01:08 | XMS_ITS | Encounter Summary ---
Author Organization [facility] Address [facility] [place] [address] Care Team Providers Care [employer] Name Role Phone Kathy Wright APRN Primary Care Provider [phone] Reason for Visit * Consultation (Routine) - Closed Specialty Diagnoses / Procedures Referred By Janie cassidy Referred To Contact Nephrology Diagnoses Retention of urine, unspecified Chronic kidney disease, stage 3 unspecified Kathy Wright APRN [address] [place] [address] [facility] Nephrology [address] [place] [id number] Referral ID Status Reason Start Date Expiration Date V isits Requested Visits Authorized [id number] Closed Consult, Test & Treat Connection [facility] PCP Updated and/or Approved 09/12/2020 09/12/2021 6 6 Encounter Details Date Type Department Care Team (Latest Contact Info) Description 01/23/2021 3:00 PM EST Office Visit [place] [address] Lazarus Luu MD [facility] [place] [address] Stage 3 chronic kidney disease, unspecified whether stage 3a or 3b CKD Social History Tobacco Use Types Packs/Day Years [...] Sign Reading Time Taken Comments Blood Pressure 123/79 01/23/2021 3:35 PM EST Pulse 90 01/23/2021 3:35 PM EST Temperature - - Respiratory Rate - - Oxygen Saturation 98% 01/23/2021 3:35 PM EST Inhaled Oxygen Concentration - - Weight 72.1 kg (159 lb) 01/23/2021 3:35 PM EST Height - - Body Mass Index 28.89 02/01/2020 1:42 PM EST documented in this encounter Progress Notes * Lazarus Luu MD - 01/23/2021 3:00 PM EST Images from the original note were not included. 60 y/o woman seen at the request of for renal insufficiency The patient reports that in 1992 was found to have one atrophic kidney when treated for UTI Sshe underwent a bladder sling surgery that led to intermittent urinary obstruction and a need for self catheterizing since 10 years She currently self catheterizes once a day, not draining much, no urine changes noted, no hematuria, no dysuria She is passing urine together with loose stool The patient underwent a segmentectomy for adenocarcinoma of the lungs with neoadjuvant chemotherapywith cisplatin in 2018 and had NAHUM leasing to a dose reduction and change to carboplatin Her serum creatinine levels have not returned to her previous baseline after that Previous renal imagin04/06/20 CT abdomen and pelvis: decreased kidney size R side Past Medical Hx: Adenocarcinoma lung s/p R basilar segmentectomy S/p adjuvant chemotherapy cisplatin/pemetrxed NAHUM in 12/20 COPD Depression L1 compression fracture GERD HTN Atrophic kidney S/P bladder sling surgery with intermittent urinary retention and need for self catheterization hypothyrodism Fibromyalgia Celiac disease Fam Hx: Significant for lung cancer, no family history of renal disease Soc Hx: Quit smoking R/S: Low back pain, episodes of reflux, episodes of diarrhea, low back pain, pain in both legs, chronic dyspnea on exertion unchanged, no chest pain, no palpitation, no vision changes, no edema, no rash, no headaches, the remaining review of systems is negative Medications: Current Outpatient Medications: ??? fluticasone propion-salmeteroL (Advair HFA) 230-21 mcg/actuation HFA Aerosol Inhaler, Inhale 1 puff into the lungs 2 times daily. Use spacer., Disp: 3 Inhaler, Rfl: 3 ??? inhalational spacing device Spacer, As directed., Disp: 1 each, Rfl: 2 ??? magnesium oxide (Mag-Ox) 400 mg (241.3 mg magnesium) Tablet, TAKE ONE TABLET BY MOUTH EVERY DAY, Disp: 30 tablet, Rfl: 1 ??? dexamethasone (Decadron) 4 mg Tablet, Take 1 tablet by mouth daily., Disp: 4 tablet, Rfl: 0 ??? acetaminophen (TYLENOL) 500 mg Tablet, Take 2 tablets by mouth every 6 hours., Disp: 120 tablet, Rfl: 1 ??? docusate sodium (COLACE) 100 mg Capsule, Take 1 capsule by mouth 3 times daily., Disp: 90 capsule, Rfl: 1 ??? senna (SENOKOT) 8.6 mg Tablet, Take 2 tablets by mouth every evening., Disp: 60 tablet, Rfl: 1 ??? amitriptyline (ELAVIL) 100 mg Tablet, 1 tablet nightly., Disp: , Rfl: 1 ??? buPROPion (WELLBUTRIN) 100 mg Tablet, 1 tablet daily., Disp: , Rfl: ??? cholecalciferol, Vitamin D3, 1,000 unit Tablet, 1,000 Units daily., Disp: , Rfl: ??? clonazePAM (KLONOPIN) 0.5 mg Tablet, 1 tablet nightly as needed., Disp: , Rfl: 3 ??? FLOVENT HFA 110 mcg/actuation HFA Aerosol Inhaler, 2 puffs 2 times daily as needed., Disp: , Rfl: 5 ??? levothyroxine (SYNTHROID) 100 mcg Tablet, 1 tablet daily., Disp: , Rfl: 3 ??? metoprolol tartrate (LOPRESSOR) 50 mg Tablet, 1 tablet 2 times daily., Disp: , Rfl: 4 ??? albuterol 90 mcg/actuation HFA Aerosol Inhaler, Inhale 2 puffs into the lungs every 4 hours as needed for Wheezing. Use with spacer, Disp: , Rfl: ??? omeprazole (PRILOSEC) 40 mg capsule, , Disp: , Rfl: ??? potassium chloride ER (K-Dur/Klor-Con) 10 mEq Tablet Sustained Release, Take 4 tablets by mouthdaily. (Patient not taking: Reported on 01/23/2021), Disp: 120 tablet, Rfl: 0 ??? diphenhydrAMINE/aluminum-magnesium hydroxide with simethicone/lidocaine (BMX) (6.67 mg-0.83 mg-13.33 mg-1.33 mg/mL) oral liquid, Take 5 mLs by mouth 4 times daily. (Patient not taking: Reported on 01/23/2021), Disp: 200 mL, Rfl: 1 ??? benzonatate (TESSALON) 100 mg Capsule, Take 1 capsule by mouth 3 times daily as needed for Cough. (Patient not taking: Reported on 12/15/2019), Disp: 30 tablet, Rfl: 0 ??? ondansetron (ZOFRAN) 4 mg Tablet, Take 1 tablet by mouth every 8 hours as needed for Nausea. (Patient not taking: Reported on 12/15/2019), Disp: 20 tablet, Rfl: 3 ??? enalapril-hydrochlorothiazide (VASERETIC) 10-25 mg Tablet, 1 tablet daily., Disp: , Rfl: 5 ??? cloNIDine (CATAPRES) 0.1 mg Tablet, 1 tablet daily., Disp: , Rfl: 3 ??? Ranitidine HCl (ZANTAC) 300 mg Capsule, 1 capsule nightly., Disp: , Rfl: 5 Current Facility-Administered Medications: ??? sodium chloride 0.9% infusion, 500 mL/hr, Intravenous, Continuous, Toño West MD Allergies Allergen Reactions ??? Cis Free Text Allergy COMBID. ??? Isopropamide ??? Prochlorperazine Physical exam: Patient Vitals for the past 24 hrs: Pulse BP SpO2 01/23/21 1535 90 123/79 98 % overweight Sun tanned Lungs clears Heart regular rhythm, no rub, no murmur Abdomen soft, non tender Limbs no edema U/A: 1.015 pH 5 lase + prot trace Urine sediment:squamous epithelial cells, bacteriae Labs: Results for AYLIN ALFONSO ( ) as of 01/23/2021 18:05 Ref. Range 01/23/2021 16:15 01/23/2021 16:26 WBC Latest Ref Range: 4.0 - 9.5 x10(3)/mcL 8.2 RBC Latest Ref Range: 4.00 - 5.21 x10(6)/mcL 4.12 Hemoglobin Latest Ref Range: 11.7 - 15.5 gm/dL 12.5 Hematocrit Latest Ref Range: 35.7 - 45.8 % 37.6 MCV Latest Ref Range: 82.6 - 94.4 fL 91.3 MCH Latest Ref Range: 27.1 - 32.0 pg 30.3 MCHC Latest Ref Range: 31.7 - 35.0 gm/dL 33.2 RDWSD Latest Ref Range: 37.0 - 46.0 fL 43.5 RDWCV Latest Ref Range: 11.5 - 14.1 % 13.1 Platelets Latest Ref Range: 145 - 357 x10(3)/mcL 229 MPV Latest Ref Range: 7.6 - 12.9 fL 9.8 nRBC % Auto Latest Units: % 0.0 nRBC Abs Auto Latest Ref Range: 0.000 - 0.000 x10(3)/mcL 0.000 Neutr Abs (ANC) Latest Ref Range: 1 - 6 x10(3)/mcL 4.23 Neutrophils % Latest Units: % 51.8 Immature Gran % Latest Units: % 0.20 Lymphocytes % Latest Units: % 36.5 Monocytes % Latest Units: % 7.0 Eosinophils % Latest Units: % 3.6 Basophils % Latest Units: % 0.9 Wilma Gran Abs Latest Ref Range: 0.00 - 0.04 x10(3)/mcL 0.02 Lymphocytes Abs Latest Ref Range: 0.9 - 3.2 x10(3)/mcL 3.0 Monocyte Abs Latest Ref Range: 0.3 - 0.9 x10(3)/mcL 0.6 Eosinophils Abs Latest Ref Range: 0.0 - 0.4 x10(3)/mcL 0.3 Basophils Abs Latest Ref Range: 0.0 - 0.1 x10(3)/mcL 0.1 Sodium Latest Ref Range: 135 - 145 mmol/L 139 Potassium Latest Ref Range: 3.5 - 5.0 mmol/L 4.3 Chloride Latest Ref Range: 98 - 107 mmol/L 104 CO2 Latest Ref Range: 22 - 31 mmol/L 24 Anion Gap Latest Ref Range: 5 - 15 mmol/L 11 BUN Latest Ref Range: 8 - 18 mg/dL 22 (H) Creatinine Latest Ref Range: 0.70 - 1.20 mg/dL 1.39 (H) Estimated GFR Latest Ref Range: >=60 mL/min/1.73 m?? 41 (L) Calcium Latest Ref Range: 8.5 - 10.5 mg/dL 9.9 Phosphorus Latest Ref Range: 2.5 - 4.5 mg/dL 3.2 Glucose Lvl Latest Ref Range: 65 - 199 mg/dL 97 Albumin Latest Ref Range: 3.2 - 5.2 gm/dL 4.5 PTH Latest Ref Range: 15 - 65 pg/mL 76 (H) Alb/Cr Ratio, Random Latest Ref Range: 0 - 29 mcg/mg Cr 6 U Albumin Conc, Random Latest Units: mg/L 8.6 U Creatinine Latest Units: mg/dL 137 A/P: The patient is in stage 3 CKD She has a preexisting small right sided kidney and had NAHUM with chemotherapy in 2019 from which shehas not completely recovered She is also self catheterizing because of intermittent urinary obstruction since a previous bladdersling surgery The patient has stable renal function, her urine sediment is unremarkable and a spot urine tests negative for microalbuminuria which confers a favorable prognosis She has no anemia, secondary hyperparathyroidism is present with the PTH in the recommended range for stage of CKD, recommend to continue the vitamin D supplement The patients BP is in target range Risk factors for worsening renal function were discussed RTC in 6 months for a second look documented in this encounter Plan of Treatment Not on file documented as of this encounter Procedures Procedure Name Priority Date/Time Associated Diagnosis Comments HC PARATHYROID HORMONE(PTH INTACT Routine 01/23/2021 4:26 PM EST Stage 3 chronic kidney disease, unspecified whether stage 3a or 3b CKD HEMOGRAM Routine 01/23/2021 4:26 PM EST Stage 3 chronic kidney disease, unspecified whether stage 3a or 3b CKD DIFFERENTIAL, AUTOMATED Routine 01/23/2021 4:26 PM EST Stage 3 chronic kidney disease, unspecified whether stage 3a or 3b CKD HC CBC,PLT & AUTO DIFF Routine 01/23/2021 4:26 PM EST Stage 3 chronic kidney disease, unspecified whether stage 3a or 3b CKD HC PHOSPHORUS, SERUM Routine 01/23/2021 4:26 PM EST Stage 3 chronic kidney disease, unspecified whether stage 3a or 3b CKD HC ALBUMIN, SERUM Routine 01/23/2021 4:2 6 PM EST Stage 3 chronic kidney disease, unspecified whether stage 3a or 3b CKD HC VENIPUNCTURE Routine 01/23/2021 4:26 PM EST Stage 3 chronic kidney disease, unspecified whether stage 3a or 3b CKD HC CREATININE - NON BLOOD Routine 01/23/2021 4:15 PM EST Stage 3 chronic kidney disease, unspecified whether stage 3a or 3b CKD documented in this encounter Results * Differential, Automated (01/23/2021 4:26 PM EST) Neutrophils % 51.8 % [facility] Neutr Abs (ANC) 4.23 1.70 - 6.10 x10(3)/[facility] Lymphocytes % 36.5 % [facility] Lymphocytes Abs 3.0 0.9 - 3.2 x10(3)/[facility] Monocytes % 7.0 % [facility] Monocyte Abs 0.6 0.3 - 0.9 x10(3)/[facility] Eosinophils % 3.6 % [facility] Eosinophils Abs 0.3 0.0 - 0.4 x10(3)/[facility] Basophils % 0.9 % [facility] Basophils Abs 0.1 0.0 - 0.1 x10(3)/[facility] Immature Gran % 0.20 % [facility] Comment: Immature granulocytes(IG's)percentage and absolute count will include metamyelocytes, myelocytes, and promyelocytes. Blood smears from CBCs yielding IG's will be scanned manually for concordance. If this scan disagrees with the automated IG or if promyelocytes are noted, a manual differential will be performed. Wilma Gran Abs 0.02 0.00 - 0.04 x10(3)/[facility] Blood specimen (specimen) 01/23/2021 4:26 PM EST 01/23/2021 4:48 PM EST Narrative Resulting Agency Comment Spec In Lab Lazarus Luu MD HEMATOLOGY ORDERABLE S [facility] [place] [address] * Hemogram (01/23/2021 4:26 PM EST) WBC 8.2 4.0 - 9.5 x10(3)/[facility] RBC 4.12 4.00 - 5.21 x10(6)/[facility] Hemoglobin 12.5 11.7 - 15.5 gm/dL [facility] Hematocrit 37.6 35.7 - 45.8 % [facility] MCV 91.3 82.6 - 94.4 fL [facility] MCH 30.3 27.1 - 32.0 pg [facility] MCHC 33.2 31.7 - 35.0 gm/dL [facility] Platelets 229 145 - 357 x10(3)/[facility] RDWSD 43.5 37.0 - 46.0 [facility] RDWCV 13.1 11.5 - 14.1 % [facility] MPV 9.8 7.6 - 12.9 fL [facility] nRBC % Auto 0.0 % [facility] nRBC Abs Auto 0.000 0.000 - 0.000 x10(3)/mcL [facility] Blood specimen (specimen) 01/23/2021 4:26 PM EST 01/23/2021 4:48 PM EST Narrative Resulting Agency Comment Spec In Lab Lazarus Luu MD HEMATOLOGY ORDERABLE S Performing Organization Address [facility] Co de Phone Number [facility] [place] [address] * Phosphorus (01/23/2021 4:26 PM EST) Phosphorus 3.2 2.5 - 4.5 mg/dL [facility] Blood specimen (specimen) 01/23/2021 4:26 PM EST 01/23/2021 4:48 PM EST Narrative Resulting Agency Comment Spec In Lab Lazarus Luu MD CHEMISTRY ORDERABLES Performing Organization Address [facility] de Phone Number [facility] [place] [address] * Albumin Level (01/23/2021 4:26 PM EST) Albumin 4.5 3.2 - 5.2 gm/dL [facility] Blood specimen (specimen) 01/23/2021 4:26 PM EST 01/23/2021 4:48 PM EST Narrative Resulting Agency Comment Spec In Lab Lazarus Luu MD CHEMISTRY ORDERABLES Performing Organization Address [facility] de Phone Number [facility] [place] [address] * (ABNORMAL) PTH (01/23/2021 4:26 PM EST) PTH 76(H) 15 - 65 pg/mL [facility] Blood specimen (specimen) 01/23/2021 4:26 PM EST 01/23/2021 4:48 PM EST Narrative Resulting Agency Comment Spec In Lab Lazarus Luu MD CHEMISTRY ORDERABLES [facility] [place] [address] * (ABNORMAL) Basic Metabolic Panel (non-fasting) (01/23/2021 4:26 PM EST) Glucose Lvl 97 65 - 199 mg/dL [facility] Comment:Diabetes: >=200 mg/d L plus symptoms BUN 22(H) 8 - 18 mg/dL [facility] Creatinine 1.39(H) 0.70 - 1.20 mg/dL [facility] Sodium 139 135 - 145 mmol/L [facility] Potassium 4.3 3.5 - 5.0 mmol/L [facility] Comment: Please note: ??Patients with WBC >100,000 may have falsely elevated Potassium levels. ??For accurate Potassium quantification in these patients send serum separator tube (gold top) for subsequent determinations. ??Contact the Clinical Chemistry Laboratory if there are any questions. Chloride 104 98 - 107 mmol/L [facility] CO2 24 22 - 31 mmol/L [facility] Anion Gap 11 5 - 15 mmol/L [facility] Calcium 9.9 8.5 - 10.5 mg/dL [facility] Estimated GFR 41(L) >=60 mL/min/1. 73 m?? [facility] Comment: This patient? s estimated glomerular filtration rate (eGFR) is between 41 mL/min/1.73 m2 (patients with less muscle mass) and 48 mL/min/1.73 m2 (patients with more muscle mass) as determined by the CKD-EPI equation. Assessment of eGFR is not appropriate when creatinine concentrations are rapidly changing. For clinical decisions where creatinine clearance will affect therapy, a 24-hour urine creatinine clearance may be advised. Assignment of CKD stage 1 ? 5 for patients with an eGFR near the transition point between stages may be based on clinical assessment of muscle mass and symptoms in addition to eGFR. Blood specimen (specimen) 01/23/2021 4:26 PM EST 01/23/2021 4:48 PM EST Narrative Resulting Agency Comment Spec In Lab Lazarus Luu MD CHEMISTRY ORDERABLES Performing Organization Address [facility] [place]/[facility] Co de Phone Number [facility] [place] [address] * U Albumin/Cre Ratio (01/23/2021 4:15 PM EST) Alb/Cr Ratio, Random 6 0 - 29 mcg/mg Cr [facility] Comment: Reference Ranges: <30 mcg/mg: Normal [...] 2, 357? 362 U Albumin Conc, Random 8.6 mg/L [facility] U Creatinine 137 mg/dL [facility] Urine specimen (specimen) 01/23/2021 4:15 PM EST 01/23/2021 4:58 PM EST Narrative Resulting Agency Comment Spec In Lab Lazarus Luu MD URINE ORDERABLES Performing Organization Address City/[facility] Co de Phone Number [facility] [place] [address] documented in this encounter Visit Diagnoses Diagnosis Stage 3 chronic kidney disease, unspecified whether stage 3a or 3b CKD documented in this encounter Care Teams [employer] Relationship Specialty Start Date End Date Kathy Wright APRN PCP - General Family Medicine 04/22/19 documented as of this encounter
--- OUTSIDE RECORDS SUMMARY | 2024-06-24 01:08 | XMS_ITS | Encounter Summary ---
[place] [address] Care Team Providers Care Credit Authorizer Name Role Phone GerardoKathy nicolas Butch DANIEL Primary Care Provider [phone] Encounter Details Date Type Department Care Team (Late st Contact Info) Description 08/07/2021 Notes Only Hematology [place] [address] Miriam Polanco MSW CARE MANAGEMENT Social History Tobacco Use Types Packs/Day Years [...] as of this encounter Progress Notes * Miriam Polanco MSW - 08/07/2021 4:44 PM EDT Continuing [place] [employer]-Social Work Note [facility]/Office of Care Management Referral/Contact: Received completed/updated Advance Directive from pt by mail, naming her daughter, Rena Best, as her healthcare agent. Unfortunately, Marleni did not have two people witness her signature andtherefore the document is not valid. Attempted to reach her by phone to discuss, however phone was not in service. She has no upcoming appointments scheduled. Letter sent along with instructions for correcting/updating the document and sending back in postage- paid enclosed envelope. Intervention(s): Advance care planning Plan: [facility] remains available for psychosocial assessment, support, and resource coordination as needed. LESLY Loomis Pager: [phone] documented in this encounter Plan of Treatment Not on file documented as of this encounter Visit Diagnoses Not on filedocumented in this encounter Care Teams Credit Authorizer Relationship Specialty Start Date End Date Kathy Wright, MARÍA PCP - General Family Medicine 04/22/19 documented as of this encounter
--- OUTSIDE RECORDS SUMMARY | 2024-06-24 01:08 | XMS_ITS | Encounter Summary ---
Author Organization [facility] [place] [address] Care Team Providers Care Data Security Administrator Name Role Phone GerardoKathy nicolas Butch DANIEL Primary Care Provider [phone] Reason for Referral * Diagnostic Test (Routine) - Closed Specialty Diagnoses / Procedures Referred By Janie cassidy Referred To Contact Radiology Diagnoses Non-small cell lung cancer, right Procedures CT Chest w Contrast Adrienne Mendez APRN [facility] HEMATOLOGY-[place] [address] [facility] [place] [address] Referral ID Status Reason Start Date Expiration Date V isits Requested Visits Authorized [id number] Closed Specialty Service Requested 05/29/2021 11/28/2022 1 1 Reason for Visit * Diagnostic Test (Routine) - Closed Specialty Diagnoses / Procedures Referred By Janie cassidy Referred To Contact Radiology Diagnoses Non-small cell lung cancer, right Procedures CT Chest w Contrast Adrienne Mendez APRN [facility] HEM[facility] [address] [facility] [place] [address] Referral ID Status Reason Start Date Expiration Date V isits Requested Visits Authorized [id number] Closed Specialty Service Requested 05/29/2021 11/28/2022 1 1 Encounter Details Date Type Department Care Team (Latest Contact Info) Description 07/24/2021 1:32 PM EDT - 07/24/2021 11:59 PM EDT Hospital [place] [address] Adrienne Mendez APRN [facility] HEMATOLOGY-[place] [address] Non-small cell lung cancer, right Discharge Disposition: [...] propion-salmeteroL (Advair HFA) 230-21 mcg/actuation HFA Aerosol InhalerIndications:Trucker Hand doc obstructive pulmonary disease, unspecified COPD type [...] Priority Date/Time Associated Diagnosis Comments CT CHEST W CONTRAST Routine 07/24/2021 2 :33 PM EDT Non-small cell lung cancer, right documented in this encounter Results * CT Chest w [...] who have questions please contact the health health care administrator that requested your imaging first. ? Electronically signed by: Roderick Valadez MD, [facility] ([phone]), at 07/24/2021 4:26 PM Narrative 07/24/2021 4:26 [...] patients who have questions please contactthe health health care administrator that requested your imaging first. Electronically signed by: Roderick Valadez MD, [facility]([phone]), at 07/24/2021 4:26 PM Adrienne Mendez JUNIOR PROJECT COORDINATOR IMG CT ORDERABLES documented in this encounter Visit Diagnoses Diagnosis Non-small cell lung cancer, right documented in this encounter Administered Medications Inactive Administered Medications - up to 3 most recent administrations Medication Order MAR Action Action Date Dose Rate Site iodixanoL (Visipaque) (320 mg/mL) injection solution 0-200 mL 0-200 mL, Intravenous, ONCE PRN, 1 dose, Starting on Fri07/24/21 at 1433, Until Fri07/24/21 at 1433, Per Protocol, Radiology Contrast, Routine Given 07/24/2021 2:33 PM EDT 60 mLs documented in this encounter Care Teams Data Security Administrator Relationship Specialty Start Date End Date Kathy Wright APRN PCP - General Family Medicine 04/22/19 documented as of this encounter
--- OUTSIDE RECORDS SUMMARY | 2024-06-24 01:08 | XMS_ITS | Encounter Summary ---
Author Organization [facility] [place] [address] Care Team Providers Care Mold Closer Helper Name Role Phone GerardoKathy nicolas Butch DANIEL Primary Care Provider [phone] Reason for Referral * Diagnostic Test (Routine) - Closed Specialty Diagnoses / Procedures Referred By Janie t Referred To Contact Radiology Diagnoses Non-small cell lung cancer, right Procedures CT Chest wo Contrast (Generic) Adrienne Mendez APRN [facility]ATOLOG[facility] [address] [place] [address] Referral ID Status Reason Start Date Expiration Date V isits Requested Visits Authorized [id number] Closed Specialty Service Requested 03/13/2022 09/12/2023 1 1 Reason for Visit * Diagnostic Test (Routine) - Closed Specialty Diagnoses / Procedures Referred By Janie cassidy Referred To Contact Radiology Diagnoses Non-small cell lung cancer, right Procedures CT Chest wo Contrast (Generic) Adrienne Mendez APRN [facility]ATOLOG[facility] [address] [place] [address] Referral ID Status Reason Start Date Expiration Date V isits Requested Visits Authorized [id number] Closed Specialty Service Requested 03/13/2022 09/12/2023 1 1 Encounter Details Date Type Department Care Team (Latest Contact Info) Description 12/10/2022 11:52 AM EST - 12/10/2022 11:59 PM EST Hospital [place] [address] Adrienne Mendez, MARÍA [facility]EMATOLOGY[place] [address] Non-small cell lung cancer, right Discharge Disposition: [...] Misc USE ONE LANCET DAILY DIRECTED 09/01/2022 empagliflozin (Jardiance) 10 mg Tablet Take 10 [...] propion-salmeteroL (Advair HFA) 230-21 mcg/actuation HFA Aerosol InhalerIndications:Asset Protection Detective doc obstructive pulmonary disease, unspecified COPD type [...] Comments CT CHEST WO CONTRAST (GENERIC) Routine 12/10/2022 12:09 PM EST Non-small cell lung cancer, right documented in this encounter Results * CT Chest wo Contrast (Generic) (12/10/2022 12:09 PM EST) Anatomical Region Laterality Modality Chest Computed Tomogra phy Impressions 12/10/2022 2:04 PM EST No evidence recurrence or metastases Thank you for letting us participate in the care of this patient. ??If you are a health care provider and have any questions regarding this report, please contact the number below. ??For patients who have questions please contact the health director of career services that requested your imaging first. ? Electronically signed by: Katy Montes MD, [facility] ([phone]), at 12/10/2022 2:04 PM Narrative 12/10/2022 2:04 PM EST EXAMINATION: CT CHEST WO CONTRAST (GENERIC) CLINICAL HISTORY: Non-small cell lung cancer, post treatment, no evidence of disease Hx resected NSCLC, on surveillance, r/o recurrence TECHNIQUE: Helical CT of the chest without intravenous contrast administration. Thin-section reconstructions as well as coronal and sagittal reformatted images were generated. COMPARISON: 03/12/2022 FINDINGS: Pulmonary parenchyma: Stable postsurgical changes RIGHT lower lobe. No new pulmonary nodules Airways: No central endobronchial abnormality. Pleura: No effusion. Lymph nodes: No lymphadenopathy. Heart and vasculature: Normal size of the heart. No significant pericardial effusion. Normal caliber of the thoracic aorta. Other mediastinal structures: No significant findings. Upper abdomen: Severe hepatic steatosis. Atrophic RIGHT kidney Skeletal structures: Unchanged old T12 compression Procedure Note Katy Montes MD - 12/10/2022 EXAMINATION: CT CHEST WO CONTRAST (GENERIC) CLINICAL HISTORY: Non-small cell lung cancer, post treatment, no evidenceof disease Hx resected NSCLC, on surveillance, r/o recurrence TECHNIQUE: Helical CT of the chest without intravenous contrastadministration. Thin-section reconstructions as well as coronal and sagittal reformattedimages were generated. COMPARISON: 03/12/2022 FINDINGS: Pulmonary parenchyma: Stable postsurgical changes RIGHT lower lobe. Nonew pulmonary nodules Airways: No central endobronchial abnormality. Pleura: No effusion. Lymph nodes: No lymphadenopathy. Heart and vasculature: Normal size of the heart. No significantpericardial effusion. Normal caliber of the thoracic aorta. Other mediastinal structures: No significant findings. Upper abdomen: Severe hepatic steatosis. Atrophic RIGHT kidney Skeletal structures: Unchanged old T12 compression IMPRESSION No evidence recurrence or metastases Thank you for letting us participate in the care of this patient. If youare a health care provider and have any questions regarding this report,please contact the number below. For patients who have questions please contactthe health director of career services that requested your imaging first. Adrienne Mendez CLEANING MAID IMG CT ORDERABLES documented in this encounter Visit Diagnoses Diagnosis Non-small cell lung cancer, right documented in this encounter Care Teams Mold Closer Helper Relationship Specialty Start Date End Date Kathy Wright APRN PCP - General Family Medicine 04/22/19 documented as of this encounter
--- OUTSIDE RECORDS SUMMARY | 2024-06-24 01:08 | XMS_ITS | Encounter Summary ---
[place] [address] Care Team Providers Care Bioinformatics Support Specialist Name Role Phone Kathy Wright APRN Primary Care Provider [phone] Encounter Details Date Type Department Care Team (Late st Contact Info) Description 02/21/2023 Telephone [place] [address] Misti Lopes Social History Tobacco Use Types [...] * Telephone Encounter - Misti Lopes - 02/21/2023 9:49 AM EDT LM for patient to call and schedule a follow up appointment with documented in this encounter Plan of Treatment Not on file documented as of this encounter Visit Diagnoses Not on filedocumented in this encounter Care Teams Bioinformatics Support Specialist Relationship Specialty Start Date End Date Kathy Wright, MARÍA PCP - General Family Medicine 04/22/19 documented as of this encounter
--- OUTSIDE RECORDS SUMMARY | 2024-06-24 01:08 | XMS_ITS | Encounter Summary ---
Author Organization [facility] [place] [address] Care Team Providers Care Building Construction Estimator Name Role Phone Kathy Wright Butch DANIEL Primary Care Provider [phone] Encounter Details Date Type Department Care Team (Latest Contact Info) Description 07/24/2021 12:55 PM EDT - 07/24/2021 1:31 PM EDT Hospital Encounter Hematology [place] [address] Non-small cell lung cancer, right Discharge Disposition: [...] Sig Dispensed Refills Start Date End Date fluticasone propion-salmeteroL (Advair HFA) 230-21 mcg/actuation HFA Aerosol InhalerIndications:Stemmer Machine doc obstructive pulmonary disease, unspecified COPD type [...] Take 20 mg by mouth daily. 01/30/2010 potassium chloride ER (K-Dur/Klor-Con) 10 mEq Tablet [...] Priority Date/Time Associated Diagnosis Comments HEMOGRAM STAT 07/24/2021 1:22 PM EDT Non-small cell lung cancer, right DIFFERENTIAL, AUTOMATED STAT 07/24/2021 1:22 PM EDT Non-small cell lung cancer, right HC CBC,PLT & AUTO DIFF STAT 1:22 PM EDT Non-small cell lung cancer, right HC VENIPUNCTURE STAT 07/24/2021 1:22 PM EDT Non-small cell lung cancer, right COMPREHENSIVE METABOLIC PANEL (NON-FASTING) STAT 07/24/2021 1:22 PM EDT Non-small cell lung cancer, right documented in this encounter Results * (ABNORMAL) Differential, Automated (07/24/2021 1:22 PM EDT) Neutrophils % 48.8 % [facility] Neutr Abs (ANC) 3.77 1.70 - 6.10 x10(3)/mc L [facility] Lymphocytes % 37.7 % [facility] Lymphocytes Abs 2.9 0.9 - 3.2 x10(3)/mc L [facility] Monocytes % 7.8 % [facility] Monocyte Abs 0.6 0.3 - 0.9 x10(3)/[facility] Eosinophils % 4.1 % [facility] Eosinophils Abs 0.3 0.0 - 0.4 x10(3)/[facility] Basophils % 1.0 % [facility] Basophils Abs 0.1 0.0 - 0.1 x10(3)/[facility] Immature Gran % 0.60 % [facility] Comment: Immature granulocytes(IG's)percentage and absolute count will include metamyelocytes, myelocytes, and promyelocytes. Blood smears from CBCs yielding IG's will be scanned manually for concordance. If this scan disagrees with the automated IG or if promyelocytes are noted, a manual differential will be performed. Wilma Gran Abs 0.05(H) 0.00 - 0.04 x10(3)/[facility] Blood 07/24/2021 1:22 PM EDT 07/24/2021 1:33 PM EDT Narrative Resulting Agency Comment Spec In Lab Adrienne Joseph Mendez UNDERGROUND FOREMAN HEMATOLOGY ORDERAB LES [facility] [place] [address] * (ABNORMAL) Hemogram (07/24/2021 1:22 PM EDT) WBC 7.7 4.0 - 9.5 x10(3)/[facility] RBC 4.04 4.00 - 5.21 x10(6)/[facility] Hemoglobin 12.4 11.7 - 15.5 gm/dL [facility] Hematocrit 37.7 35.7 - 45.8 % [facility] MCV 93.3 82.6 - 94.4 fL [facility] MCH 30.7 27.1 - 32.0 pg [facility] MCHC 32.9 31.7 - 35.0 gm/dL [facility] Platelets 198 145 - 357 x10(3)/[facility] RDWSD 47.7(H) 37.0 - 46.0 [facility] RDWCV 13.9 11.5 - 14.1 % [facility] MPV 9.5 7.6 - 12.9 [facility] nRBC % Auto 0.0 % [facility] nRBC Abs Auto 0.000 0.000 - 0.000 x10(3)/[facility] Blood 07/24/2021 1:22 PM EDT 07/24/2021 1:33 PM EDT Narrative Resulting Agency Comment Spec In Lab Adrienne Mendez UNDERGROUND FOREMAN HEMATOLOGY ORDERAB LES Performing Organization Address City/State/[facility] Co de Phone Number [facility] [place] [address] * (ABNORMAL) Comprehensive metabolic panel (non-fasting) (07/24/2021 1:22 PM EDT) Glucose Lvl 88 65 - 199 mg/dL [facility] Comment:Diabetes: >=200 mg/d L plus symptoms BUN 16 8 - 18 mg/dL [facility] Creatinine 1.31(H) 0.70 - 1.20 mg/dL [facility] Sodium 140 135 - 145 mmol/L [facility] Potassium 5.0 3.5 - 5.0 mmol/L [facility] Comment: Please note: ??Patients with WBC >100,000 may have falsely elevated Potassium levels. ??For accurate Potassium quantification in these patients send serum separator tube (gold top) for subsequent determinations. ??Contact the Clinical Chemistry Laboratory if there are any questions. Chloride 103 98 - 107 mmol/L [facility] CO2 26 22 - 31 mmol/L [facility] Anion Gap 11 5 - 15 mmol/L [facility] Calcium 9.6 8.5 - 10.5 mg/dL [facility] Total Protein 7.3 6.1 - 8.0 gm/dL [facility] Albumin 4.5 3.2 - 5.2 gm/dL [facility] AST 66(H) 0 - 30 unit/L [facility] ALT 88(H) 0 - 30 unit/L [facility] Alk Phos 119(H) 35 - 105 unit/L [facility] Total Bilirubin 0.2 0.2 - 1.3 mg/dL [facility] Estimated GFR 44(L) >=60 mL/min/1. 73 m?? [facility] Comment: This patient? s [...] Agency Comment Spec In Lab Adrienne Mendez UNDERGROUND FOREMAN CHEMISTRY ORDERABL ES [facility] [place] [address] * (ABNORMAL) Lactate Dehydrogenase (07/24/2021 1:22 PM EDT) LDH 270(H) 110 - 220 unit/L [facility] Blood 07/24/2021 1:22 PM EDT 07/24/2021 1:33 PM EDT Narrative Resulting Agency Comment Spec In Lab Adrienne Mendez UNDERGROUND FOREMAN CHEMISTRY ORDERABL ES [facility] [place] [address] documented in this encounter Visit Diagnoses Diagnosis Non-small cell lung cancer, right documented in this encounter Care Teams Building Construction Estimator Relationship Specialty Start Date End Date Kathy Wright APRN PCP - General Family Medicine 04/22/19 documented as of this encounter
--- OUTSIDE RECORDS SUMMARY | 2024-06-24 01:08 | XMS_ITS | Encounter Summary ---
Author Organization [facility] Address [facility] [place] [address] Care Team Providers Care Drafter Detail Name Role Phone Kathy Wright APRN Primary Care Provider [phone] Encounter Details Date Type Department Care Team (Latest Contact Info) Description 01/21/2023 Travel Social History Tobacco Use Types Packs/Day [...] on filedocumented in this encounter Care Teams Drafter Detail Relationship Specialty Start Date End Date Kathy Wright APRN PCP - General Family Medicine 04/22/19 documented as of this encounter
--- OUTSIDE RECORDS SUMMARY | 2024-06-24 01:08 | XMS_ITS | Encounter Summary ---
Author Organization [place] [address] Care Team Providers Care Lithograph Press Feeder Name Role Phone Kathy Wright APRN Primary Care Provider [phone] Encounter Details Date Type Department Care Team (Late st Contact Info) Description 01/21/2023 2:30 PM EST Office Visit [place] [address] Lico Wing MD [facility] [place] [address] Chronic kidney disease, unspecified CKD stage; Urinary obstruction; Non-small cell lung cancer, right; Tobacco abuse; Hypercalcemia; Hypertension, unspecified type Social History Tobacco Use [...] Sign Reading Time Taken Comments Blood Pressure 108/42 01/21/2023 2:33 PM EST Pulse 76 01/21/2023 2:33 PM EST Temperature - - Respiratory Rate - - Oxygen Saturation 98% 01/21/2023 2:33 PM EST Inhaled Oxygen Concentration - - Weight 72.7 kg (160 lb 3.2 oz) 01/21/2023 2:33 P M EST Height - - Body Mass Index 29.11 12/10/2022 1:53 PM EST documented in this encounter Patient Instructions * Patient Instructions* Lico Wing MD - 01/21/2023 2:30 PM EST Calcium: - stop Vit D therapy - Get the parathyroid scan done - Get labs in one week Lung Cancer: - Go see ENT doctor for evaluation of vocal cords in setting of smoking - Stop smoking Chronic Kidney Disease: - Control your diabetes - manage your blood pressure - set alarms to self catheterize yourself for bladder Hypertension: - Keep taking medications - Monitor Blood pressure at home * Attachments The following attachments cannot be sent through Care Everywhere. * Hypercalcemia (Egyptian) * Blood Pressure Test: Home (Egyptian) documented in this encounter Progress Notes * Lico Wing MD - 01/21/2023 2:30 PM EST Images from the original note were not included. [facility] DEPARTMENT OF NEPHROLOGY AND HYPERTENSION OUTPATIENT OFFICE NOTE PATIENT: Marleni Arreola : 1960 Kathy Wright APRN HPI: 62 yo F with PMHx, Surg Hx, FMHx, and Social Hx below presenting as a follow up for CKD. Last seen in Nephrology office by Dr. Luu in 2020. Lung Cancer / Current Tobacco Abuse: - Stage IIIa NSCLC who underwent right [...] cancer recurrence on most recent scans - Currently smoking 0.5ppd still. Understands that she is still high risk for cancer given consistent smoking abuse. CKD: - Re-evaluated for CKD. CKD likely attributed to historical use of cisplatin + urinary obstruction requiring self-catheterization + and now diabetes mellitus - Symptomology entails some slight right sided back pain, chronic MSK pain especially localized in mid lumbar, slight wheezing, sinus congestion, hoarsness in voice, and discomfort upon swallowing. - Urinary symptoms: Has some difficulty occasionally with voiding. Sometimes has to use catheters, and has had to use them more frequently in past few months. Prior, she was using catheters only onceevery two weeks. Now uses 3x catheters (once at night) with urine volume being consistent to her POintake. - Patient had a bladder sling procedure in 1989 which worked excellently. However, in past few years, she has been instructed to use catheters due to retention now. - Patient recently diagnosed with diabetes given that blood sugars have been persistently high. Shehas been prescribed Jardiance and is in process of understanding diabetic food management. - Cr today = 1.38 (1.29 in December 2022) --->eGFR = 43. - Hgb stable at 14.2 - PTH = 63 Hypercalcemia: - Calcium interestingly high at 10.7 today. PTH = 63. - Patient symptoms entail some bony pain in arms and lower back that have been present for years. Denies any constipation, depression or psychiatric changes, nephrolithiasis that she could recall, etc. Only complains about some voice hoarseness currently that has worsened in severity these past fewmonths. Has some discomfort swallowing saliva as well. - Patient has been compliant with Vit D3 1000UT therapy for one year. Takes as prescribed with no overdoses. HTN: - BP = 108/42 today on Jardiance 10mg + Lisinopril 10mg + Lopressor 50mg BID - Patient currently does not measure BP at home, but is agreeable to start measuring. Is in processof obtaining a BP cuff. ROS: 4 point review of sytem was done, everything was negative except for what was mentioned above. PMHX: Past Medical History: Diagnosis Date ??? Chronic pain fibromyalgia ??? COPD (chronic obstructive pulmonary disease) COPD-wel controlled ??? Fibromyalgia ??? Gastroesophageal reflux takes antacids for which controls ??? High blood pressure controllled with medications ??? Motion sickness only on a boat ??? Non-small cell lung cancer, right 11/09/2019 ??? Vertigo for 2 weeks-w/u neg-uses a cane to be steady PSURGHX: Past Surgical History: Procedure Laterality Date ??? PRO BRONCHOSCOPY, DIAGNOSTIC N/A 10/06/2019 BRONCHOSCOPY, DIAGNOSTIC (WRVU 2.78) performed by Juan Ny MD at [facility] MAIN OR ? ? PRO INJECTION ANES AGENT &/ STEROID INTERCOSTAL NERVE EA ADDL LEVEL Right 10/06/2019 NERVE BLOCK, INTERCOSTAL NERVE, MULTIPLE (WRVU 1.68) performed by Juan Ny MD at [facility] MAIN OR ??? PRO THORACOSCOPY SURG LOBECTOMY Right 10/06/2019 @ROBOT XI THORACOSCOPY,SURGICAL,W\LOBECTOMY,TOTAL OR SEGMENTAL (WRVU 24.64) performed by Juan Ny MD at [facility] OR ??? PRO THORACOSCOPY WITH MEDIASTINAL AND REGIONAL LYMPHADENECTOMY Right 10/06/2019 @ROBOT XI THORACOSCOPY,SURG; W/MEDIASTINAL& REGIONAL LYMPHADENECTOMY (WRVU 4.12) performed by Juan Ny MD at [facility] OR ??? PRO THORACOSCOPY WITH WEDGE RESECTION AND ANATOMIC LUNG RESECTN Right 10/06/2019 @ROBOT XI THORACOSCOPY,SURG; W/DX WEDGE RESC W/ANATOMIC LUNG RESC (WRVU 3) performed by Juan Ny MD at [facility] OR FMHX: Family History Problem Relation Age of Onset ??? Lung Cancer Father smoker SOCIALHX: Social History Socioeconomic History ??? Marital status: Spouse name: Not on file ??? Number of children: Not on file ??? Years of education: Not on file ??? Highest education level: Not on file Occupational History ??? Occupation: disability Comment: on disability since 2013 ??? 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 Tobacco Use ??? Smoking status: Every Day Packs/day: 0.50 Years: 42.00 Pack years: 21.00 Types: Cigarettes Start date: 1975 Last attempt to quit: 08/02/2019 Years since quittin.4 ??? Smokeless tobacco: Former Quit date: 07/02/2019 ??? Tobacco comments: 1 or 2 a week Vaping Use ??? Vaping Use: Never used Substance and Sexual Activity ??? Alcohol use: Never ??? Drug use: Yes Types: Marijuana Comment: has medical marjuana card. no recent use. Only takes edibles when she can afford it ??? Sexual activity: Not on file Other Topics Concern ??? Not on file Social History Narrative ??? Not on file Social Determinants of Health Financial Resource Strain: Not on file Food Insecurity: Not on file Transportation Needs: Not on file Physical Activity: Not on file Housing Stability: Not on file ALLERGIES: Allergies Allergen Reactions ??? Cis Free Text Allergy COMBID. ??? Isopropamide ??? Prochlorperazine VITALS: Last value Range last 24 hrs Temperature Temp: -- Heart Rate Heart Rate: 76 Heart Rate: [76] Blood Pressure BP: 108/42 BP: (108)/(42) Respiratory Rate Resp: -- SpO2 SpO2: 98 % SpO2: [98 %] PHYSICAL EXAM: Patient is awake alert not in acute distress No jaundice oral mucosa moist Neck- supple trachea central. Small node appreciated in anterior neck. Not mobile to swallowing. Some palpable lymphadenopathy noted in neck. Chest- Mild wheezing noted. Decreased breath sounds on right chest CVS-S1-S2 present, no murmur regurgitation gallops. Abdomen-nontender nondistended, bowel sounds present. Mild tenderness to back. Extremities-peripheral pulses present, no edema Neuro-patient is awake alert, moving all 4 limbs, motor examination is grossly normal. No asterixis. STUDIES: LABS: CBC: Recent Labs 01/21/23 1329 12/10/22 1123 WBC 10.3* 11.2* HGB 14.2 14.3 PLATELET 239 257 Chemistry: Recent Labs 12/10/22 1123 NA 138 K 4.4 CL 102 CO2 25 BUN 17 CREATININE 1.29* GLUCOSE 125 Recent Labs 12/10/22 1123 CALCIUM 10.3 LFT's: Recent Labs 12/10/22 1123 BILITOT 0.3 ALBUMIN 4.4 ALKPHOS 129* ALT 35* AST 31* No results found for: UPROTCREAT No results found for: TPROTEINPEP, ALBELECT Lab Results Component Value Date MICROALBUR 8.6 01/23/2021 No results found for: HA1C Lab Results Component Value Date PTH 76 (H) 01/23/2021 CALCIUM 10.3 12/10/2022 PHOS 3.2 01/23/2021 No results found for: 25OHVITD IMAGING: CT Chest 12/10: IMPRESSION No evidence recurrence or metastases ASSESSMENTS + IMPRESSIONS: - Chronic Kidney Disease Stage III / Urinary Obstruction - History of Stage IIIa NSCLC / Current Tobacco Abuse - Incidental Hypercalcemia - Hypertension CKD / Obstruction: Hx of CKD likely induced by cisplatin chemotherapy + obstruction + now diabetes.Her renal function for the most part is stable. Patient has completed chemotherapy, but still has obstruction in voiding as a prominent issue. Her obstruction is currently addressed with self-catheter ization which the patient attempts to remember daily to perform. With her recent diagnosis of diabetes, the patient is currently on GDMT with SGLT 2 inhibition + RAAS inhibition. Management for now will focus on ensuring patient is performing straight catheterizations frequently throughout the day so as to not forget voiding (we have agreed to enable phone alarms). Moreover, we will continue her Jardiance and Lisinopril as tolerated while she works with PCP in controlling diabetes. Lastly, we will characterize her proteinuria with quantification today. Hx of Lung Cancer / Tobacco Abuse: S/p lobectomy and chemo for lung cancer. Patient unfortunately still smokes and is understanding the risks of re- development of any smoking related cancer. While recent CT scans have demonstrated no recurrent signs of malignancy, the patient does have worsening hoarseness in her throat and discomfort upon swallowing. I was able to appreciate some mild small masses in her neck and she did have a tender anterior neck upon palpation. With her long abuse of smoking, it is worth considering vocal cord laryngeal cancer as a differential for her mass in which patient has agreed to re-establish care with her ENT (she also has chronic sinusitis she wants to addresswith ENT). An office laryngoscopy may be of utility to assess vocal cord anatomy and concern for any malignancy. Incidental Hypercalcemia: Noted to have hypercalcemia on today's labs. Hypercalcemia is accompaniedby an inappropriately high-normal PTH level suggestive of a PTH mediated process. A small neck masswas appreciated by me on physical exam. The patient interestingly does not have very significant or specific signs of symptoms of hyperCa. She is on a Vit D supplement for one year and has not overdosed. She does also have suspicious history and signs for non- PTH mediated hyperCa including some concerning lymph node involvement in her neck + history of cancer to name some. At this time, management will focus on re-confirming the diagnosis of hyperCa by obtaining a BMP in 2-3 weeks time. If her Calcium level is still elevated at that time, I will perform nuclear scan to delineate a PTH relatednodule in her neck. Will also obtain Thyroid levels next lab draw given her neck mass. HTN: Pressures stable on Jardiance 10mg + Lisinopril 10mg + Lopressor 50mg BID. For now, we will continue these BP medications. I have informed the patient to obtain a BP cuff to monitor and documenttrends at home. We can adjust BP medications in response to HTN isolated at home. PLAN: - Will obtain urine protein/Cr ratio + urine albumin/Cr ratio - Patient instructed to obtain repeat BMP + thyroid labs in 2-3 weeks given hypercalcemia and neck nodule respectively. Will hold off on nuclear medicine scan pending next BMP. - OK to continue Jardiance 10mg + Lisinopril 10mg + Lopressor 50mg BID - Patient instructed to stop vit D supplements - HTN education + BP monitoring education + Tobacco cessation education provided to patient - Recommend continued self-catheterizations with frequent phone alarms to straight cath - Patient recommended to re-establish care with ENT for evaluation of potential vocal cord malignancy vs nodule Avoid nephrotoxic medications including NSAIDs and contrast. Thanks for letting us participate in the care of this patient. 01/21/2023 Lico Wing M.D., M.P.H., M.H.A. PGY-IV Nephrology-Hypertension Fellow Page # [phone] [facility] [address] 2nd floor, Ventilation Mechanic [address] [place] [address] * Samuel Little MD - 01/21/2023 2:30 PM EST I saw and discussed the patient with the fellow and agree with the assessment plan in his note. History of CKD stage III which appears stable in the interval since last seen in kidney clinic. Of notepatient has hypercalcemia with nonsuppressed PTH. We will hold vitamin D and plan for nuc med scan. documented in this encounter Plan of Treatment Not on file documented as of this encounter Procedures Procedure Name Priority Date/Time Associated Diagnosis Comments HC CREATININE - NON BLOOD Routine 01/21/2023 2:30 PM EST Chronic kidney disease, unspecified CKD stage HC CREATININE - NON BLOOD Routine 01/21/2023 2:30 PM EST Chronic kidney disease, unspecified CKD stage documented in this encounter Results * U Albumin/Cre Ratio (01/21/2023 2:30 PM EST) Alb/Cr Ratio, Random Not Calculated 0 - 29 mcg/mg Cr [facility] Comment: Reference Ranges: <30 mcg/mg: [...] 2, 357? 362 U Albumin Conc, Random <3.0 mg/L [facility] U Creatinine 47 mg/dL [facility] Urine 01/21/2023 2:30 PM EST 01/21/2023 4:54 PM EST Narrative Resulting Agency Comment Spec In Lab Samuel Little MD URINE ORDERABLES [facility] [place] [address] * Protein/Creatinine Ratio, urine (01/21/2023 2:30 PM EST) U Creatinine 47 mg/dL [facility] U Protein Ran <6 0 - 12 mg/dL [facility] Prot/Cre Ratio <0.[address] [facility] Urine 01/21/2023 2:30 PM EST 01/21/2023 4:54 PM EST Narrative Resulting Agency Comment Spec In Lab Samuel Little MD URINE ORDERABLES Performing Organization Address [facility] de Phone Number [facility] [place] [address] * PTH (01/21/2023 1:29 PM EST) PTH 63 15 - 65 pg/mL [facility] Blood 01/21/2023 1:29 PM EST 01/21/2023 1:53 PM EST Narrative Resulting Agency Comment Spec In Lab Samuel Little MD CHEMISTRY ORDERABLES Performing Organization Address [facility] de Phone Number [facility] [place] [address] * Phosphorus (01/21/2023 1:29 PM EST) Phosphorus 4.1 2.5 - 4.5 mg/dL [facility] Blood 01/21/2023 1:29 PM EST 01/21/2023 1:53 PM EST Narrative Resulting Agency Comment Spec In Lab Samuel Little MD CHEMISTRY ORDERABLES Performing Organization Address [facility] de Phone Number [facility] [place] [address] * Magnesium (01/21/2023 1:29 PM EST) Magnesium 0.87 0.69 - 1.07 mmol/L [facility] Blood 01/21/2023 1:29 PM EST 01/21/2023 1:53 PM EST Narrative Resulting Agency Comment Spec In Lab Samuel Little MD CHEMISTRY ORDERABLES [facility] [place] [address] * (ABNORMAL) Comprehensive metabolic panel (non-fasting) (01/21/2023 1:29 PM EST) Glucose Lvl 102 65 - 199 mg/dL [facility] Comment:Diabetes: >=200 mg/d L plus symptoms BUN 18 8 - 18 mg/dL [facility] Creatinine 1.38(H) 0.70 - 1.20 mg/dL [facility] Sodium 139 135 - 145 mmol/L [facility] Potassium 4.7 3.5 - 5.0 mmol/L [facility] Comment: Please note: ??Patients with WBC >100,000 may have falsely elevated Potassium levels. ??For accurate Potassium quantification in these patients send serum separator tube (gold top) for subsequent determinations. ??Contact the Clinical Chemistry Laboratory if there are any questions. Chloride 101 98 - 107 mmol/L [facility] CO2 28 22 - 31 mmol/L [facility] Anion Gap 10 5 - 15 mmol/L [facility] Calcium 10.7(H) 8.5 - 10.5 mg/dL [facility] Total Protein 7.4 6.1 - 8.0 g/dL [facility] Albumin 4.4 3.2 - 5.2 g/dL [facility] AST 22 0 - 30 unit/L [facility] ALT 27 0 - 30 unit/L [facility] Alk Phos 136(H) 35 - 105 unit/L [facility] Total Bilirubin 0.3 0.2 - 1.3 mg/dL [facility] Estimated GFR 43(L) >=60 mL/min/1. 73 m?? [facility] Comment: This patient's estimated GFR [...] and symptoms in addition to eGFR. Blood 01/21/2023 1:29 PM EST 01/21/2023 1:53 PM EST Narrative Resulting Agency Comment Spec In Lab Samuel Little MD CHEMISTRY ORDERABLES [facility] [place] [address] documented in this encounter Visit Diagnoses Diagnosis Chronic kidney disease, unspecified CKD stage Urinary obstruction Urinary obstruction, unspecified Non-small cell lung cancer, right Tobacco abuse Tobacco use disorder Hypercalcemia Hypertension, unspecified type documented in this encounter Care Teams Lithograph Press Feeder Relationship Specialty Start Date End Date Kathy Wright, MARÍA PCP - General Family Medicine 04/22/19 documented as of this encounter
--- OUTSIDE RECORDS SUMMARY | 2024-06-24 01:08 | XMS_ITS | Encounter Summary ---
Author Organization [facility] Address [facility] [place] [address] Care Team Providers Care Thermostat Maker Name Role Phone Kathy Wright APRN Primary Care Provider [phone] Encounter Details Date Type Department Care Team (Latest Contact Info) Description 12/10/2022 Travel Social History Tobacco Use Types Packs/Day [...] on filedocumented in this encounter Care Teams Thermostat Maker Relationship Specialty Start Date End Date Kathy Wright APRN PCP - General Family Medicine 04/22/19 documented as of this encounter
--- OUTSIDE RECORDS SUMMARY | 2024-06-24 01:08 | XMS_ITS | Encounter Summary ---
[place] [address] Care Team Providers Care Tree And Shrub Worker Name Role Phone Kathy Wright APRN Primary Care Provider [phone] Encounter Details Date Type Department Care Team (Late st Contact Info) Description 10/04/2022 Telephone [place] [address] Misti Lopes Social History Tobacco Use Types [...] * Telephone Encounter - Misti Lopes - 10/04/2022 11:19 AM EDT Tried calling patient to schedule a follow up appointment, couldn't leave message. Will send out letter documented in this encounter Plan of Treatment Not on file documented as of this encounter Visit Diagnoses Not on filedocumented in this encounter Care Teams Tree And Shrub Worker Relationship Specialty Start Date End Date Kathy Wright APRN PCP - General Family Medicine 04/22/19 documented as of this encounter
--- OUTSIDE RECORDS SUMMARY | 2024-06-24 01:08 | XMS_ITS | Encounter Summary ---
Author Organization [facility] Address [facility] [place] [address] Care Team Providers Care Pharmacist Helper Name Role Phone Kathy Wright APRN Primary Care Provider [phone] Encounter Details Date Type Department Care Team (Latest Contact Info) Description 2020 10:30 AM EDT TH Visit (TeleHealth) [place] [address] Timo Garcia MD [facility] [place] [address] Chronic obstructive pulmonary disease, unspecified COPD type Social History Tobacco Use Types Packs/Day [...] as of this encounter Progress Notes * Timo Garcia MD - 2020 10:30 AM EDT Failed to keep appt. documented in this encounter Plan of Treatment Not on file documented as of this encounter Visit Diagnoses Diagnosis Chronic obstructive pulmonary disease, unspecified COPD type documented in this encounter Care Teams Pharmacist Helper Relationship Specialty Start Date End Date Kathy Wright APRN PCP - General Family Medicine 04/22/19 documented as of this encounter
--- OUTSIDE RECORDS SUMMARY | 2024-06-24 01:08 | XMS_ITS | Encounter Summary ---
Author Organization [facility] [place] [address] Care Team Providers Care Manager Mail Name Role Phone Kathy Wright APRN Primary Care Provider [phone] Encounter Details Date Type Department Care Team (Late st Contact Info) Description 09/12/2022 Telephone [place] [address] Christina Almonte Social History Tobacco Use Types Packs/Day Years [...] filedocumented in this encounter Care Teams Manager Mail Relationship Specialty Start Date End Date Kathy Wright APRN PCP - General Family Medicine 04/22/19 documented as of this encounter
--- OUTSIDE RECORDS SUMMARY | 2024-06-24 01:08 | XMS_ITS | Encounter Summary ---
[place] [address] Care Team Providers Care Roll Repairer Name Role Phone Kathy Wright MARÍA Primary Care Provider [phone] Reason for Referral * Diagnostic Test (Routine) - Closed Specialty Diagnoses / Procedures Referred By Janie cassidy Referred To Contact Radiology Diagnoses Non-small cell lung cancer, right Procedures CT Chest wo Contrast (Generic) Toño West MD [facility] [place] [address] [facility] [place] [address] Referral ID Status Reason Start Date Expiration Date V isits Requested Visits Authorized [id number] Closed Specialty Service Requested 07/24/2021 01/24/2023 1 1 Reason for Visit * Reason Comments Follow-up Lung Cancer Encounter Details Date Type Department Care Team (Late st Contact Info) Description 07/24/2021 3:45 PM EDT Office Visit Hematology [place] [address] Toño West MD [facility] [place] [address] Adrienne Mendez APRN [facility] DR HEMATOLOGY-[place] [address] Non-small cell lung cancer, right (Primary Dx) [...] Sign Reading Time Taken Comments Blood Pressure 118/102 07/24/2021 3:37 PM EDT Pulse 86 07/24/2021 3:37 PM EDT Temperature 36.3 ??C (97.3 ??F) 07/24/2021 3:37 PM ED T Respiratory Rate 13 07/24/2021 3:37 PM EDT Oxygen Saturation 100% 07/24/2021 3:37 PM EDT Inhaled Oxygen Concentration - - Weight 75.3 kg (166 lb) 07/24/2021 3:37 PM EDT Height - - Body Mass Index 30.16 02/01/2020 1:42 PM EST documented in this encounter Progress Notes * Toño West MD - 07/24/2021 3:45 PM EDT Images from the original note were not included. Oncology Follow-Up Patient Visit Reason for visit: F/U Stage IIIa lung cancer Patient prefers to be called: Marleni HISTORY OF PRESENT ILLNESS: The patient is a 60 y.o. woman with a PMH notable for COPD, fibromyalgia and falls who presented with stage IIIa (pT1bN2) lung cancer. After a fall she underwent a??CT Abd/Pelvis??(performed 04/18/19) that revealed??colitis, acute burst fracture of L1, as well as 16 mm focal opacity of RLL.??A dedicated??CT Chest was performed??07/02/18??which demonstrated stable [id number] nodules in the RLL, largest measuring 9 [...] was discontinued and surveillance initiated. INTERVAL HISTORY: Feels better than on chemotherapy. Breathing is with more exertional dyspnea than a few months ago,none at rest. She attributes this to the hot weather. Uses inhaler that provides some relief. Occasional cough. Appetite is good, stable mild dysphagia, no nausea, gaining weight. Back pain is fluctuating, slightly increased recently. Bowels are regular, no bleeding. No dysuria. No recent headaches. No fevers. No numbness, no tingling. Intermittent dizziness/lightheadedness. Not smoking, not using alcohol. ROS See HPI. ROS otherwise unremarkable. PMHX: [...] 2.78) performed by Juan Ny MD at [facility] MAIN OR ? ? PRO INJECTION ANES AGENT &/ STEROID INTERCOSTAL NERVE EA ADDL LEVEL Right 10/06/2019 NERVE BLOCK, INTERCOSTAL NERVE, MULTIPLE (WRVU 1.68) performed by Juan Ny MD at [facility] MAIN OR ??? PRO THORACOSCOPY SURG LOBECTOMY Right 10/06/2019 @ROBOT XI THORACOSCOPY,SURGICAL,W\LOBECTOMY,TOTAL OR SEGMENTAL (WRVU 24.64) performed by Juan Ny MD at [facility] MAIN OR ??? PRO THORACOSCOPY WITH MEDIASTINAL AND REGIONAL LYMPHADENECTOMY Right 10/06/2019 @ROBOT XI THORACOSCOPY,SURG; W/MEDIASTINAL& REGIONAL LYMPHADENECTOMY (WRVU 4.12) performed by Juan Ny MD at [facility] MAIN OR ??? PRO THORACOSCOPY WITH WEDGE RESECTION AND ANATOMIC LUNG RESECTN Right 10/06/2019 @ROBOT XI THORACOSCOPY,SURG; W/DX WEDGE RESC W/ANATOMIC LUNG RESC (WRVU 3) performed by Juan Ny MD at [facility] MAIN OR MEDS: Current Outpatient Medications on File Prior to Visit Medication Sig Dispense Refill ??? famotidine (Pepcid) 20 mg Tablet Take 20 mg by mouth 2 times daily. ??? melatonin 5 mg Tablet Take by mouth. ??? lisinopriL (Zestril) 10 mg Tablet Take [...] mg Tablet 1 tablet nightly. 1 ??? buPROPion (WELLBUTRIN) 100 mg Tablet 1 tablet daily. ??? cholecalciferol, Vitamin D3, 1,000 unit Tablet 1,000 Units daily. ??? clonazePAM (KLONOPIN) 0.5 mg Tablet 1 tablet nightly as needed. 3 ??? levothyroxine (SYNTHROID) 100 mcg Tablet 112 mcg daily. 3 ??? metoprolol tartrate (LOPRESSOR) 50 mg Tablet 1 tablet 2 times daily. 4 ??? Ranitidine HCl (ZANTAC) 300 mg Capsule 1 capsule nightly. 5 ??? albuterol 90 mcg/actuation HFA Aerosol Inhaler Inhale 2 puffs into the lungs every 4 hours as needed for Wheezing. Use with spacer ??? gabapentin (Neurontin) 100 mg Capsule Take 600 mg by mouth 2 times daily. 2 caps 100mg in the morning and 1 400mg in the evening. ??? fluticasone propion-salmeteroL (Advair HFA) 230-21 mcg/actuation [...] 4 times daily. (Patient not taking: Reported on01/23/2021) 200 mL 1 ??? benzonatate (TESSALON) 100 [...] mg Tablet 1 tablet daily. 5 ??? cloNIDine (CATAPRES) 0.1 mg Tablet 1 tablet daily. 3 ??? FLOVENT HFA 110 mcg/actuation HFA Aerosol Inhaler 2 puffs 2 times daily as needed. 5 ??? 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) ETOH: Smoking: quit smoking in August 2019 (quit cold-turkey), previously smoking 1+PPD for 42 years Marijuana or illicit drug use: edible marijuana (has a medical marijuana card) PHYSICAL EXAM Vitals: 07/24/21 1537 BP: (!) 118/102 Patient Position: Sitting Pulse: 86 Resp: 13 Temp: 36.3 ??C (97.3 ??F) TempSrc: Temporal SpO2: 100% Weight: 75.3 kg (166 lb) Wt Readings from Last 3 Encounters: 07/24/21 75.3 kg (166 lb) 01/23/21 72.1 kg (159 lb) 02/01/20 66.8 kg (147 lb 3.2 oz) The patient was in [...] Lactate Dehydrogenase Result Value Ref Range LDH 270 (H) 110 - 220 unit/L Comprehensive metabolic panel (non-fasting) Result Value Ref Range Glucose Lvl 88 65 - 199 mg/dL BUN 16 8 - 18 mg/dL Creatinine 1.31 (H) 0.70 - 1.20 mg/dL Sodium 140 135 - 145 mmol/L Potassium 5.0 3.5 - 5.0 mmol/L Chloride 103 98 - 107 mmol/L CO2 26 22 - 31 mmol/L Anion Gap 11 5 - 15 mmol/L Calcium 9.6 8.5 - 10.5 mg/dL Total Protein 7.3 6.1 - 8.0 gm/dL Albumin 4.5 3.2 - 5.2 gm/dL AST 66 (H) 0 - 30 unit/L ALT 88 (H) 0 - 30 unit/L Alk Phos 119 (H) 35 - 105 unit/L Total Bilirubin 0.2 0.2 - 1.3 mg/dL Estimated GFR 44 (L) >=60 mL/min/1.73 m?? Hemogram Result Value Ref Range WBC 7.7 4.0 - 9.5 x10(3)/mcL RBC 4.04 4.00 - 5.21 x10(6)/mcL Hemoglobin 12.4 11.7 - 15.5 gm/dL Hematocrit 37.7 35.7 - 45.8 % MCV 93.3 82.6 - 94.4 fL MCH 30.7 27.1 - 32.0 pg MCHC 32.9 31.7 - 35.0 gm/dL Platelets 198 145 - 357 x10(3)/mcL RDWSD 47.7 (H) 37.0 - 46.0 fL RDWCV 13.9 11.5 - 14.1 % MPV 9.5 7.6 - 12.9 fL nRBC % Auto 0.0 % nRBC Abs Auto 0.000 0.000 - 0.000 x10(3)/mcL Differential, Automated Result Value Ref Range Neutrophils % 48.8 % Neutr Abs (ANC) 3.77 1.70 - 6.10 x10(3)/mcL Lymphocytes % 37.7 % Lymphocytes Abs 2.9 0.9 - 3.2 x10(3)/mcL Monocytes % 7.8 % Monocyte Abs 0.6 0.3 - 0.9 x10(3)/mcL Eosinophils % 4.1 % Eosinophils Abs 0.3 0.0 - 0.4 x10(3)/mcL Basophils % 1.0 % Basophils Abs 0.1 0.0 - 0.1 x10(3)/mcL Immature Gran % 0.60 % Wilma Gran Abs 0.05 (H) 0.00 - 0.04 x10(3)/mcL RADIOLOGY STUDIES REVIEWED: I personally reviewed a CT chest showing no growth, and no new lesions. ASSESSMENT: Marleni is a 59 y/o woman with stage IIIa NSCLC after being found to have an FDG-avid pulmonary nodule. 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 She started adjuvant cisplatin/pemetrexed on . Following Cycle 2 there was an increase in Cr which has been managed with IVF and increased PO fluid intake. Her creatinine improved and in the third cycle carboplatin was substituted for cisplatin. There were more toxicities and her creatinine has worsened. Cycle 4 was not administered. She is slowly improving from the toxicities treatment. There is no evidence for disease recurrence on recent imaging. I counseled the patient about these results, their implications for her prognosis and we discussed treatment options. The patient understands that despite completing all therapy, shewill be at significant risk for recurrence and regular surveillance will be recommended. Her increased dyspnea is likely related to COPD with some contribution from her lung resection. She was previously seen by a stoker erector and we offered to refer her back to them, she declined for now biut will call us if there is no improvement with the weather changes. Her back pain was discussed, it is felt not to be cancer-related, I suggested that she consult [facility], she will let us know if this is preferred. The patient is also closely monitored by her PCP. I reviewed the data on durationof adjuvant chemotherapy, the risks and benefits. I emphasized the need for increased oral intake of fluids. I reviewed the natural history of renal impairment related to anvik, where improvement m ay be slow over many months and sometimes is incomplete. The mildly elevated liver enzymes were reviewed, these are multifactorial, we will monitor with a repeat blood test locally in 1 month. I advised her on inutrition and fluids. The patient agrees with this plan. RTC in 6 months with labs, visit and chest CT. I advised her to call if she develops any fever, shortness of breath, new pain, weakness, bleeding or any other unusual medical symptoms. documented in this encounter Plan of Treatment Not on file documented as of this encounter Results * (ABNORMAL) Lactate Dehydrogenase (03/12/2022 1:12 PM EDT) LDH 245(H) 110 - 220 unit/L [facility] Blood 03/12/2022 1:12 PM EDT 03/12/2022 1:30 PM EDT Narrative Resulting Agency Comment Spec In Lab Toño West MD CHEMISTRY ORDERA BLES [facility] [place] [address] * (ABNORMAL) Comprehensive metabolic panel (non-fasting) (03/12/2022 1:12 PM EDT) Glucose Lvl 110 65 - 199 mg/dL [facility] Comment:Diabetes: >=200 mg/d L plus symptoms BUN 13 8 - 18 mg/dL [facility] Creatinine 1.13 0.70 - 1.20 mg/dL [facility] Sodium 139 135 - 145 mmol/L [facility] Potassium 4.5 3.5 - 5.0 mmol/L [facility] Comment: Please note: ??Patients with WBC >100,000 may have falsely elevated Potassium levels. ??For accurate Potassium quantification in these patients send serum separator tube (gold top) for subsequent determinations. ??Contact the Clinical Chemistry Laboratory if there are any questions. Chloride 105 98 - 107 mmol/L [facility] CO2 22 22 - 31 mmol/L [facility] Anion Gap 12 5 - 15 mmol/L [facility] Calcium 9.8 8.5 - 10.5 mg/dL [facility] Total Protein 7.4 6.1 - 8.0 g/dL [facility] Albumin 4.4 3.2 - 5.2 g/dL [facility] AST 65(H) 0 - 30 unit/L [facility] ALT 82(H) 0 - 30 unit/L [facility] Alk Phos 107(H) 35 - 105 unit/L [facility] Total Bilirubin 0.4 0.2 - 1.3 mg/dL [facility] Estimated GFR 52(L) >=60 mL/min/1. 73 m?? [facility] Comment: This patient? s estimated [...] In Lab Toño West MD CHEMISTRY ORDERA VERONICA [facility] [place] [address] * CT Chest wo Contrast (Generic) (03/12/2022 [...] who have questions please contact the health acute care nurse that requested your imaging first. ? Narrative [...] left breast soft tissues captured in the [id number]. Skeletal structures: Stable long-standing T12 compression deformity. [...] asymmetric left breast soft tissuescaptured in the [id number]-[id number]. Skeletal structures: Stable long-standing T12 compression deformity. [...] patients who have questions please contactthe health acute care nurse that requested your imaging first. Toño West MD IMG CT ORDERABLE S documented in this encounter Visit Diagnoses Diagnosis Non-small cell lung cancer, right- Primary Non-small cell lung cancer, right documented in this encounter Care Teams Roll Repairer Relationship Specialty Start Date End Date Kathy Wright APRN PCP - General Family Medicine 04/22/19 documented as of this encounter
--- OUTSIDE RECORDS SUMMARY | 2024-06-24 01:08 | XMS_ITS | Encounter Summary ---
[place] [address] Care Team Providers Care Calculation Clerk Name Role Phone GerardoKathy nicolas Butch DANIEL Primary Care Provider [phone] Encounter Details Date Type Department Care Team (Late st Contact Info) Description 06/22/2021 Telephone Hematology [place] [id number] Miriam Polanco MSW CARE MANAGEMENT Social History [...] encounter Miscellaneous Notes * Telephone Encounter - Miriam Polanco MSW - 06/22/2021 11:47 AM EDT Continuing Human Resources Benefits Coordinator-Social Work Note [facility]/Office of Care Management AMADO referral received from March regarding transportation needs. Pt uses [facility] for medical transportation. She needs medical confirmation that she can have someone accompany her on her rides due to her disability. Her son Blaze typically serves in this role. Attempted to reach pt; left voicemailrequesting call back. Contacted [facility] ([phone]) and spoke with Miriam Reese. She advised that pt's medical verificationof need for passenger to accompany her is expiring on 07/08/21. Pt has appointments on 07/24 for whichshe will need transportation. Miriam advised that new letter can be sent directly to [place] [employer] [facility]. Letter written and sent to [facility] (fax: [phone]) on 06/21/21 with confirmation of receipt. Also scheduled transportation for pt for her 07/24 appointments. Plan: -CCM-SW remains available for psychosocial assessment, support, and resource coordination as needed. LESLY Loomis Pager: [phone] documented in this encounter Plan of Treatment Not on file documented as of this encounter Visit Diagnoses Not on filedocumented in this encounter Care Teams Calculation Clerk Relationship Specialty Start Date End Date Kathy Wright, MARÍA PCP - General Family Medicine 04/22/19 documented as of this encounter
--- OUTSIDE RECORDS SUMMARY | 2024-06-24 01:08 | XMS_ITS | Encounter Summary ---
[place] [address] Care Team Providers Care Cash Poster Name Role Phone Kathy Wright Butch DANIEL Primary Care Provider [phone] Encounter Details Date Type Department Care Team (Latest Contact Info) Description 01/21/2023 1:30 PM EST Laboratory Appointment Lab [address] [place] [address] Chronic kidney disease, unspecified CKD stage Social [...] Name Priority Date/Time Associated Diagnosis Comments HC VENIPUNCTURE Routine 01/21/2023 1:29 PM EST Chronic kidney disease, unspecified CKD stage HEMOGRAM Routine 01/21/2023 1:29 PM EST Chronic kidney disease, unspecified CKD stage DIFFERENTIAL, AUTOMATED Routine 01/21/2023 1:29 PM EST Chronic kidney disease, unspecified CKD stage HC CBC,PLT & AUTO DIFF Routine 1:29 PM EST Chronic kidney disease, unspecified CKD stage HC PHOSPHORUS, SERUM Routine 01/21/2023 1:29 PM EST Chronic kidney disease, unspecified CKD stage HC MAGNESIUM, SERUM Routine 01/21/2023 1 :29 PM EST Chronic kidney disease, unspecified CKD stage COMPREHENSIVE METABOLIC PANEL (NON-FASTING) Routine 01/21/2023 1:29 PM EST Chronic kidney disease, unspecified CKD stage documented in this encounter Results * (ABNORMAL) Differential, Automated (01/21/2023 1:29 PM EST) Neutrophils % 52.6 % [facility] Neutr Abs (ANC) 5.41 1.70 - 6.10 x10(3)/mc L [facility] Lymphocytes % 34.7 % [facility] Lymphocytes Abs 3.6(H) 0.9 - 3.2 x10(3)/mc L [facility] Monocytes % 6.3 % [facility] Monocyte Abs 0.6 0.3 - 0.9 x10(3)/mc L [facility] Eosinophils % 4.8 % [facility] Eosinophils Abs 0.5(H) 0.0 - 0.4 x10(3)/mc L [facility] Basophils % 1.2 % [facility] Basophils Abs 0.1 0.0 - 0.1 x10(3)/mc L [facility] Immature Gran % 0.40 % [facility] Comment: Immature granulocytes(IG's)percentage and absolute count will include metamyelocytes, myelocytes, and promyelocytes. Blood smears from CBCs yielding IG's will be scanned manually for concordance. If this scan disagrees with the automated IG or if promyelocytes are noted, a manual differential will be performed. Wilma Gran Abs 0.04 0.00 - 0.04 x10(3)/mc L [facility] Blood 01/21/2023 1:29 PM EST 01/21/2023 1:53 PM EST Narrative Resulting Agency Comment Spec In Lab Lico Cagle MD HEMATOLOGY OR DERABLES Performing Organization Address City/State/[facility] Co de Phone Number [facility] [place] [address] * (ABNORMAL) Hemogram (01/21/2023 1:29 PM EST) WBC 10.3(H) 4.0 - 9.5 x10(3)/[facility] RBC 4.72 4.00 - 5.21 x10(6)/[facility] Hemoglobin 14.2 11.7 - 15.5 g/dL [facility] Hematocrit 43.2 35.7 - 45.8 % [facility] MCV 91.5 82.6 - 94.4 [facility] MCH 30.1 27.1 - 32.[address] [facility] MCHC 32.9 31.7 - 35.0 g/dL [facility] Platelets 239 145 - 357 x10(3)/[facility] RDWSD 44.6 37.0 - 46.0 [facility] RDWCV 13.2 11.5 - 14.1 % [facility] MPV 9.6 7.6 - 12.9 [facility] nRBC % Auto 0.0 % [facility] nRBC Abs Auto 0.000 0.000 - 0.000 x10(3)/[facility] Blood 01/21/2023 1:29 PM EST 01/21/2023 1:53 PM EST Narrative Resulting Agency Comment Spec In Lab Lico Cagle MD HEMATOLOGY OR DERABLES [facility] [place] [address] * (ABNORMAL) Comprehensive metabolic panel (non-fasting) (01/21/2023 1:29 PM EST) Glucose Lvl 102 65 - 199 mg/dL [facility] Comment:Diabetes: >=200 mg/d L plus symptoms BUN 18 8 - 18 mg/dL [facility] Creatinine 1.38(H) 0.70 - 1.20 mg/dL [facility] Sodium 139 135 - 145 mmol/L [facility] Potassium 4.7 3.5 - 5.0 mmol/L [facility] Comment: Please note: ??Patients with WBC >100,000 may have falsely elevated Potassium levels. ??For accurate Potassium quantification in these patients send serum separator tube (gold top) for subsequent determinations. ??Contact the Clinical Chemistry Laboratory if there are any questions. Chloride 101 98 - 107 mmol/L [facility] CO2 28 22 - 31 mmol/L [facility] Anion Gap 10 5 - 15 mmol/L [facility] Calcium 10.7(H) 8.5 - 10.5 mg/dL [facility] Total Protein 7.4 6.1 - 8.0 g/dL [facility] Albumin 4.4 3.2 - 5.2 g/dL [facility] AST 22 0 - 30 unit/L [facility] ALT 27 0 - 30 unit/L [facility] Alk Phos 136(H) 35 - 105 unit/L [facility] Total Bilirubin 0.3 0.2 - 1.3 mg/dL [facility] Estimated GFR 43(L) >=60 mL/min/1. 73 m?? [facility] Comment: This patient's estimated GFR [...] MD CHEMISTRY ORDERABLES Performing Organization Address City/[facility] Co de Phone Number [facility] [place] [address] * Magnesium (01/21/2023 1:29 PM EST) Magnesium 0.87 0.69 - 1.07 mmol/L [facility] Blood 01/21/2023 1:29 PM EST 01/21/2023 1:53 PM EST Narrative Resulting Agency Comment Spec In Lab Samuel Little MD CHEMISTRY ORDERABLES Performing Organization Address [facility] Co de Phone Number [facility] [place] [address] * Phosphorus (01/21/2023 1:29 PM EST) Phosphorus 4.1 2.5 - 4.5 mg/dL [facility] Blood 01/21/2023 1:29 PM EST 01/21/2023 1:53 PM EST Narrative Resulting Agency Comment Spec In Lab Samuel Little MD CHEMISTRY ORDERABLES Performing Organization Address [facility] Co de Phone Number [facility] [place] [address] * PTH (01/21/2023 1:29 PM EST) PTH 63 15 - 65 pg/mL [facility] Blood 01/21/2023 1:29 PM EST 01/21/2023 1:53 PM EST Narrative Resulting Agency Comment Spec In Lab Samuel Little MD CHEMISTRY ORDERABLES [facility] [place] [address] documented in this encounter Visit Diagnoses Diagnosis Chronic kidney disease, unspecified CKD stage documented in this encounter Care Teams Cash Poster Relationship Specialty Start Date End Date Kathy Wright APRN PCP - General Family Medicine 04/22/19 documented as of this encounter
--- OUTSIDE RECORDS SUMMARY | 2024-06-24 01:08 | XMS_ITS | Encounter Summary ---
[place] [address] Care Team Providers Care Skilled Nursing Facilities Professional Name Role Phone GerardoKathy nicolas MARÍA Primary Care Provider [phone] Reason for Referral * Diagnostic Test (Routine) - Closed Specialty Diagnoses / Procedures Referred By Contac t Referred To Contact Radiology Diagnoses Non-small cell lung cancer, right Procedures CT Chest wo Contrast (Generic) Adrienne Mendez APRN [facility] HEMATOLOGY[place] [address] [facility] [place] [address] Referral ID Status Reason Start Date Expiration Date V isits Requested Visits Authorized [id number] Closed Specialty Service Requested 03/13/2022 09/12/2023 1 1 * Consultation (Routine) - Closed Specialty Diagnoses / Procedures Referred By Janie cassidy Referred To Contact Diagnoses Non-small cell lung cancer, right Chronic obstructive pulmonary disease, unspecified COPD type Adrienne Mendez APRN [facility] HEMATOLOGY[place] [address] Referral ID Status Reason Start Date Expiration Date V isits Requested Visits Authorized [id number] Closed Consult, Test & Treat 03/13/2022 09/09/2022 1 1 Reason for Visit * Reason Comments Follow-up Encounter Details Date Type Department Care Team (Late st Contact Info) Description 03/12/2022 2:15 PM EDT Office Visit Hematology [place] [address] Toño West MD [facility] [place] [address] Adrienne Mendez APRN [facility] DR HEMATOLOGY[place] [address] Non-small cell lung cancer, right; Chronic obstructive pulmonary disease, unspecified COPD type [...] Sign Reading Time Taken Comments Blood Pressure 120/76 03/12/2022 2:09 PM EDT Pulse 74 03/12/2022 2:09 PM EDT Temperature 36.1 ??C (97 ??F) 03/12/2022 2:09 PM EDT Respiratory Rate 20 03/12/2022 2:09 PM EDT Oxygen Saturation 99% 03/12/2022 2:59 PM EDT Inhaled Oxygen Concentration - - Weight 74 kg (163 lb 1.6 oz) 03/12/2022 2:09 PM EDT Height - - Body Mass Index 29.64 02/01/2020 1:42 PM EST documented in this encounter Progress Notes * Adrienne Mendez APRN - 03/12/2022 2:15 PM EDT Images from the original note were not included. Oncology Follow-Up Patient Visit Reason for visit: F/U Stage IIIa lung cancer Patient prefers to be called: Marleni HISTORY OF PRESENT ILLNESS: The patient is a 61 y.o. woman with a PMH notable for COPD, fibromyalgia and falls who presented with stage IIIa (pT1bN2) lung cancer. After a fall she underwent a??CT Abd/Pelvis??(performed 04/18/19) that revealed??colitis, acute burst fracture of L1, as well as 16 mm focal opacity of RLL.??A dedicated??CT Chest was performed??07/02/18??which demonstrated stable cwdi-ai-eeyt nodules in the RLL, largest measuring 9 [...] was discontinued and surveillance initiated. INTERVAL HISTORY: Last seen 07/21. Comes today with a chest CT and for re-evaluation. Energy level is poor and lower than 6 mo ago. Activity level is limited by breathing and fatigue. Breathing is slowly worsening overtime with no acute changes. No SOB at rest. There is dyspnea with moderate exertion. Rescue inhalerdoes provide some relief. There is a chronic cough, non-productive, no hemoptysis. Rare non-exertional chest discomfort resolves with a heating pad. Mood has been fine recently. Followed by a psychologist. Eating fine, weight is similar to 6 mo ago. No fevers/chills, HAs, change in vision, heartburn (on omeprazole), N/V, abd pain, diarrhea or constipation (colace PRN), dysuria, lightheadedness, focal weakness, sensory complaints, bleeding, rash,new/worsening pain. + sensation of food getting stuck in the throat, she does feel that this has been worse over the past 6 mo. Occasional falls when she wakes in the night, no injuries. No change inbalance. Not smoking. ROS See HPI. ROS otherwise unremarkable. PMHX: Patient Active Problem List Diagnosis ??? COPD (chronic obstructive pulmonary disease) ??? Mixed anxiety and depressive disorder ??? Non-small cell lung cancer, right Adenocarcinoma, acinar predominant with focal micro-papillary pattern, 1/ LN, positive 8R node with isolated cancer cells, PDL 1 TPS 5% ??? Lung nodule ??? Dizziness ??? Closed compression fracture of body of L1 vertebra PSHX: Past Surgical History: Procedure Laterality Date ??? PRO BRONCHOSCOPY, DIAGNOSTIC N/A 10/06/2019 BRONCHOSCOPY, DIAGNOSTIC (WRVU 2.78) performed by Juan Ny MD at [facility] MAIN OR ? ? PRO INJECTION ANES AGENT &/ STEROID INTERCOSTAL NERVE EA ADDL LEVEL Right 10/06/2019 NERVE BLOCK, INTERCOSTAL NERVE, MULTIPLE (WRVU 1.68) performed by Juan Ny MD at [facility] MAIN OR ??? PRO THORACOSCOPY SURG LOBECTOMY Right 10/06/2019 @ROBOT XI THORACOSCOPY,SURGICAL,W\LOBECTOMY,TOTAL OR SEGMENTAL (WRVU 24.64) performed by Juan Ny MD at [facility] MAIN OR ??? PRO THORACOSCOPY WITH MEDIASTINAL AND REGIONAL LYMPHADENECTOMY Right 10/06/2019 @ROBOT XI THORACOSCOPY,SURG; W/MEDIASTINAL& REGIONAL LYMPHADENECTOMY (WRVU 4.12) performed by Juan Ny MD at [facility] OR ??? PRO THORACOSCOPY WITH WEDGE RESECTION AND ANATOMIC LUNG RESECTN Right 10/06/2019 @ROBOT XI THORACOSCOPY,SURG; W/DX WEDGE RESC W/ANATOMIC LUNG RESC (WRVU 3) performed by Juan Ny MD at [facility] MAIN OR MEDS: Current Outpatient Medications on File Prior to Visit Medication Sig Dispense Refill ??? gabapentin (Neurontin) 100 mg Capsule Take 600 mg by mouth 2 times daily. 2 caps 100mg in the morning and 1 400mg in the evening. ??? melatonin 5 mg Tablet Take by mouth. ??? lisinopriL (Zestril) 10 mg Tablet Take 10 mg by mouth daily. ??? inhalational spacing device Spacer As directed. 1 each 2 ??? magnesium oxide (Mag-Ox) 400 mg (241.3 mg magnesium) Tablet TAKE ONE TABLET BY MOUTH EVERY DAY 30 tablet 1 ??? diphenhydrAMINE/aluminum-magnesium hydroxide with simethicone/lidocaine (BMX) (6.67 mg-0.83 mg-13.33 mg-1.33 mg/mL) oral liquid Take 5 mLs by mouth 4 times daily. 200 mL 1 ??? docusate sodium (COLACE) 100 mg Capsule Take 1 capsule by mouth 3 times daily. 90 capsule 1 ??? senna (SENOKOT) 8.6 mg Tablet Take 2 tablets by mouth every evening. 60 tablet 1 ??? cholecalciferol, Vitamin D3, 1,000 unit [...] mg by mouth 2 times daily. ??? fluticasone propion-salmeteroL (Advair HFA) 230-21 mcg/actuation HFA Aerosol Inhaler Inhale 1 puff into the lungs 2 times daily. Use spacer. (Patient not taking: No sig reported) 3 Inhaler 3 ??? potassium chloride ER (K-Dur/Klor-Con) 10 mEq Tablet Sustained Release Take 4 tablets by mouth daily. (Patient not taking: No sig reported) 120 tablet 0 ??? dexamethasone (Decadron) 4 mg Tablet Take 1 tablet by mouth daily. (Patient not taking: No sig reported) 4 tablet 0 ??? benzonatate (TESSALON) 100 mg Capsule Take 1 capsule by mouth 3 times daily as needed for Cough. (Patient not taking: No sig reported) 30 tablet 0 ??? ondansetron (ZOFRAN) 4 mg Tablet Take 1 tablet by mouth every 8 hours as needed for Nausea. (Patient not taking: No sig reported) 20 tablet 3 ??? acetaminophen (TYLENOL) 500 mg Tablet Take 2 tablets by mouth every 6 hours. (Patient not taking: Reported on 03/12/2022) 120 tablet 1 ??? amitriptyline (ELAVIL) 100 mg Tablet 1 tablet nightly. 1 ??? enalapril-hydrochlorothiazide (VASERETIC) 10-25 mg Tablet 1 tablet daily. 5 ??? buPROPion (WELLBUTRIN) 100 mg Tablet 1 tablet daily. ??? cloNIDine (CATAPRES) 0.1 mg Tablet 1 tablet daily. 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 Performance status was 1. Oropharynx was clear. Sclerae were anicteric. No significant lymphadenopathy in the cervical, supraclavicular or axillary regions. Chest was with vesicular breath sounds, scattered crackles, no wheezes. Heart was with regular rate and rhythm. Normal S1, S2. Abdomen was soft, nontender, nondistended with active bowel sounds. No hepatosplenomegaly. Extremities showed no edema, no calf tenderness. Neurologic exam was grossly nonfocal.Back revealed mild tenderness to palpation. LABORATORY STUDIES Recent Results (from the past 72 hour(s)) Comprehensive metabolic panel (non-fasting) Result Value Ref Range Glucose Lvl 110 65 - 199 mg/dL BUN 13 8 - 18 mg/dL Creatinine 1.13 0.70 - 1.20 mg/dL Sodium 139 135 - 145 mmol/L Potassium 4.5 3.5 - 5.0 mmol/L Chloride 105 98 - 107 mmol/L CO2 22 22 - 31 mmol/L Anion Gap 12 5 - 15 mmol/L Calcium 9.8 8.5 - 10.5 mg/dL Total Protein 7.4 6.1 - 8.0 g/dL Albumin 4.4 3.2 - 5.2 g/dL AST 65 (H) 0 - 30 unit/L ALT 82 (H) 0 - 30 unit/L Alk Phos 107 (H) 35 - 105 unit/L Total Bilirubin 0.4 0.2 - 1.3 mg/dL Estimated GFR 52 (L) >=60 mL/min/1.73 m?? Lactate Dehydrogenase Result Value Ref Range LDH 245 (H) 110 - 220 unit/L Hemogram Result Value Ref Range WBC 8.9 4.0 - 9.5 x10(3)/mcL RBC 4.01 4.00 - 5.21 x10(6)/mcL Hemoglobin 12.7 11.7 - 15.5 g/dL Hematocrit 36.9 35.7 - 45.8 % MCV 92.0 82.6 - 94.4 fL MCH 31.7 27.1 - 32.0 pg MCHC 34.4 31.7 - 35.0 g/dL Platelets 229 145 - 357 x10(3)/mcL RDWSD 45.6 37.0 - 46.0 fL RDWCV 13.5 11.5 - 14.1 % MPV 9.7 7.6 - 12.9 fL nRBC % Auto 0.0 % nRBC Abs Auto 0.000 0.000 - 0.000 x10(3)/mcL Differential, Automated Result Value Ref Range Neutrophils % 55.9 % Neutr Abs (ANC) 4.96 1.70 - 6.10 x10(3)/mcL Lymphocytes % 32.5 % Lymphocytes Abs 2.9 0.9 - 3.2 x10(3)/mcL Monocytes % 6.3 % Monocyte Abs 0.6 0.3 - 0.9 x10(3)/mcL Eosinophils % 3.5 % Eosinophils Abs 0.3 0.0 - 0.4 x10(3)/mcL Basophils % 0.9 % Basophils Abs 0.1 0.0 - 0.1 x10(3)/mcL Immature Gran % 0.90 % Wilma Gran Abs 0.08 (H) 0.00 - 0.04 x10(3)/mcL RADIOLOGY STUDIES REVIEWED: Chest CT wo contrast from today: IMPRESSION Stable exam. No locally recurrent nor metastatic disease in the chest. ASSESSMENT: Marleni is a 59 y/o woman [...] There were more toxicities and her creatinine worsened. Cycle 4 was not administered. She has been followed with surveillance imaging. There is no evidence for disease recurrence on today's CT scan. I counseled the patient about these results, their implications for her prognosis and we discussed treatment options. The patient understands that despite completing all therapy, she will be at significant risk for recurrence and regular surveillance will be recommended. Will continue with the next surveillance CT scan in 6 mo. Her increased dyspnea is likely related to COPD with some contribution from her lung resection. I recommended a referral to pulmonology, which she would like at [facility] or [place]. She will also continue to follow with her PCP for routine health maintenance. # Cr today is improved. I recommended that she continue with increased hydration # Mildly elevated liver enzymes are stable over the past 6 mo- will continue to follow Referral to pulmonology at [facility] or [place]. RTC in 6 months with labs, chest CT wo contrast, clinic. I advised her to call if she develops any fever, shortness of breath, new pain, weakness, bleeding or any other unusual medical symptoms. documented in this encounter Plan of Treatment Scheduled Referrals Name Type Priority Associated Diagnoses Orde r Schedule Referral to Pulmonology Outpatient Referral Routine Non-small cell lung cancer, right Chronic obstructive pulmonary disease, unspecified COPD type Ordered: 03/13/2022 documented as of this encounter Results * CT Chest wo [...] who have questions please contact the health healthcare or medical that requested your imaging first. ? Electronically signed by: Katy Montes MD, [facility] ([phone]), at 12/10/2022 2:04 PM Narrative 12/10/2022 2:04 [...] patients who have questions please contactthe health healthcare or medical that requested your imaging first. Electronically signed by: Katy Montes MD, [facility]([phone]), at 12/10/2022 2:04 PM Adrienne Mendez [facility] CT ORDERABLES * (ABNORMAL) Comprehensive metabolic panel (non-fasting) (12/10/2022 11:23 AM EST) Glucose Lvl 125 65 - 199 mg/dL [facility] Comment:Diabetes: >=200 mg/d L plus symptoms BUN 17 8 - 18 mg/dL [facility] Creatinine 1.29(H) 0.70 - 1.20 mg/dL [facility] Sodium 138 135 - 145 mmol/L [facility] Potassium 4.4 3.5 - 5.0 mmol/L [facility] Comment: Please note: ??Patients with WBC >100,000 may have falsely elevated Potassium levels. ??For accurate Potassium quantification in these patients send serum separator tube (gold top) for subsequent determinations. ??Contact the Clinical Chemistry Laboratory if there are any questions. Chloride 102 98 - 107 mmol/L [facility] CO2 25 22 - 31 mmol/L [facility] Anion Gap 11 5 - 15 mmol/L [facility] Calcium 10.3 8.5 - 10.5 mg/dL [facility] Total Protein 7.9 6.1 - 8.0 g/dL [facility] Albumin 4.4 3.2 - 5.2 g/dL [facility] AST 31(H) 0 - 30 unit/L [facility] ALT 35(H) 0 - 30 unit/L [facility] Alk Phos 129(H) 35 - 105 unit/L [facility] Total Bilirubin 0.3 0.2 - 1.3 mg/dL [facility] Estimated GFR 47(L) >=60 mL/min/1. 73 m?? [facility] [...] Agency Comment Spec In Lab Adrienne Mendez DOWEL MAKER CHEMISTRY ORDERABL ES [facility] [place] [address] * Lactate Dehydrogenase (12/10/2022 11:23 AM EST) LDH 211 110 - 220 unit/L [facility] Blood 12/10/2022 11:2 3 AM EST 12/10/2022 11:31 AM EST Narrative Resulting Agency Comment Spec In Lab Adrienne Joseph Mendez DOWEL MAKER CHEMISTRY ORDERABL ES Performing Organization Address [facility] Co de Phone Number [facility] [place] [address] documented in this encounter Visit Diagnoses Diagnosis Non-small cell lung cancer, right Chronic obstructive pulmonary disease, unspecified COPD type Non-small cell lung cancer, right documented in this encounter Care Teams Skilled Nursing Facilities Professional Relationship Specialty Start Date End Date Kathy Wright APRN PCP - General Family Medicine 04/22/19 documented as of this encounter
--- OUTSIDE RECORDS SUMMARY | 2024-06-24 01:09 | XMS_ITS | Encounter Summary ---
[place] [address] Care Team Providers Care Assistant Professor Of Art Name Role Phone Kathy Wright APRN Primary Care Provider [phone] Encounter Details Date Type Department Care Team (Late st Contact Info) Description 07/19/2020 Tele[place] [id number] Rox Hugo Social History Tobacco Use Types Packs/Day Years [...] filedocumented in this encounter Care Teams Assistant Professor Of Art Relationship Specialty Start Date End Date Kathy Wright APRN PCP - General Family Medicine 04/22/19 documented as of this encounter
--- OUTSIDE RECORDS SUMMARY | 2024-06-24 01:09 | XMS_ITS | Encounter Summary ---
[place] [address] Care Team Providers Care Road Engineer Name Role Phone Kathy Wright MARÍA Primary Care Provider [phone] Encounter Details Date Type Department Care Team (Late st Contact Info) Description 05/03/2020 Telephone Hematology [place] [address] Radha Bynum RN Social History Tobacco Use Types Packs/Day [...] encounter Miscellaneous Notes * Telephone Encounter - Radha Bynum RN - 05/03/2020 8:28 AM EDT Follow-up: wet process assistant head miller to follow-up with Marleni tomorrow on 05/03. She needs a BMP drawn while in [place]. Multiple calls were made to Marleni today to discuss lab draw while in [place]. No call back by [facility] day. wet process assistant head miller to attempt again on 05/05 when back in office. documented in this encounter Plan of Treatment Not on file documented as of this encounter Visit Diagnoses Not on filedocumented in this encounter Care Teams Road Engineer Relationship Specialty Start Date End Date Kathy Wright APRN PCP - General Family Medicine 04/22/19 documented as of this encounter
--- OUTSIDE RECORDS SUMMARY | 2024-06-24 01:09 | XMS_ITS | Encounter Summary ---
Author Organization [facility] [place] [address] Care Team Providers Care Commercial Crabber Name Role Phone Kathy Wright MARÍA Primary Care Provider Encounter Details Date Type Department Care Team (Late st Contact Info) Description 01/24/2020 Telephone H[place]ology [place] [id number] Scarlett Castillo, RN Social History Tobacco Use Types Packs/Day [...] encounter Miscellaneous Notes * Telephone Encounter - Scarlett Castillo, RN - 01/24/2020 2:10 PM EST Message received from audio visual secretary: Patient calling to report has sinus infection started antibiotics 01/21 and she is wondering if she should be done infusions I thought I was only supposed to have 4 and I have, I am so scared to have another infusion, they make me so sick. She is scheduled for tomorrow 01/25 please advise [phone] Call placed back to pt to discuss. States she is unable to come in for appts tomorrow as she does not have a ride & has other appointments. In addition she continues to feel poorly. She did not note any improvement in energy levels with blood transfusion last week. Also continues to have SOB with any exertion. Does not improvement in dizziness but it does still occur. Also started on zithromax for sinus infection. She would like to have appts rescheduled for next week & wants to talk with Dr. West at this time about whether she needs further chemo. Advised that triage nurse would discuss this with TRADER & get back to her with plan. Per Adrienne Mendez, ELECTROPLATER HELPER: OK to reschedule pt for next week. She should call back to clinic with worsening symptoms. Message sent to audio visual secretary to reschedule & contact pt with new appt times. Call placed back to pt with plan. She is aware she will hear from audio visual secretary with new appt times. Advised to call back directly if there are further questions, or if these symptoms fail to improve as anticipated or worsen. Pt in agreement with plan and knows to call clinic with any concerns and/or questions. documented in this encounter Plan of Treatment Not on file documented as of this encounter Visit Diagnoses Not on filedocumented in this encounter Care Teams Commercial Crabber Relationship Specialty Start Date End Date Kathy Wright APRN PCP - General Family Medicine 04/22/19 documented as of this encounter
--- OUTSIDE RECORDS SUMMARY | 2024-06-24 01:09 | XMS_ITS | Encounter Summary ---
Author Organization [place] [address] Care Team Providers Care Parts Representative Name Role Phone Kathy Wright MARÍA Primary Care Provider [phone] Encounter Details Date Type Department Care Team (Late st Contact Info) Description 05/03/2020 [place] [address] Marry Wellington LNA Social History Tobacco Use Types Packs/Day Years [...] encounter Miscellaneous Notes * Telephone Encounter - aMrry Wellington LNA - 05/03/2020 3:57 PM EDT LM for pt to call us back. Dr. Garcia would like to schedule PFT and f/u 4-6 mths. Pt is scheduled for 07/[address] Garcia. Asked if she wants to keep the 07/24 appt and add a PFT or reschedule later. documented in this encounter Plan of Treatment Not on file documented as of this encounter Visit Diagnoses Not on filedocumented in this encounter Care Teams Parts Representative Relationship Specialty Start Date End Date Kathy Wright APRN PCP - General Family Medicine 04/22/19 documented as of this encounter
--- OUTSIDE RECORDS SUMMARY | 2024-06-24 01:09 | XMS_ITS | Encounter Summary ---
Author Organization [facility] [place] [address] Care Team Providers Care Sheltered Workshop Executive Director Name Role Phone GerardoKathy nicolas Butch DANIEL Primary Care Provider [phone] Encounter Details Date Type Department Care Team (Late st Contact Info) Description 02/01/2020 12:30 PM EST Clinical Support [place] [address] Christina Almonte Cigarette nicotine dependence in remission Social History Tobacco Use Types Packs/Day Years [...] as of this encounter Progress Notes * Christina Almonte - 02/01/2020 12:30 PM EST Marleni is still not smoking. She has not smoked since August. She has a lot of motivation for not smoking which includes a cancer dx and a grandchild who does not want her to smoke. She gets support from son, but little support from her daughter. I gave her nicotine lozenges to help her maintain her quit, reminding her that her brain may want nicotine but not tobacco. Congratulated Ms. Arreola for continuing to stay tobacco free. documented in this encounter Plan of Treatment Not on file documented as of this encounter Visit Diagnoses Diagnosis Cigarette nicotine dependence in remission Tobacco use disorder documented in this encounter Care Teams Sheltered Workshop Executive Director Relationship Specialty Start Date End Date Kathy Wright APRN PCP - General Family Medicine 04/22/19 documented as of this encounter
--- OUTSIDE RECORDS SUMMARY | 2024-06-24 01:09 | XMS_ITS | Encounter Summary ---
Author Organization [facility] [place] [address] Care Team Providers Care Hogshead Weigher Name Role Phone Kathy Wright MARÍA Primary Care Provider Encounter Details Date Type Department Care Team (Late st Contact Info) Description 05/19/2020 Telephone [place] [address] Scarlett Castillo, RN Social History Tobacco Use [...] Telephone Encounter - Scarlett Castillo, RN - 05/19/2020 2:04 PM EDT Follow-up: director of technology to follow-up on lab results on 05/19 from [facility] in [facility]. Lab results received, entered into EDH & sent to Dr. West to review. documented in this encounter Plan of Treatment Not on file documented as of this encounter Procedures Procedure Name Priority Date/Time Associated Diagnosis Comments CBC (WITH DIFF) Routine 05/19/2020 12:19 PM EDT COMPREHENSIVE METABOLIC PANEL (NON-FASTING) Routine 05/19/2020 12:19 PM EDT documented in this encounter Results * (ABNORMAL) Comprehensive metabolic panel (non-fasting) (05/19/2020 12:19 PM EDT) Glucose Lvl 106([facility]) 74 - 106 BUN 16(Externa l Lab) 9 - 20 Creatinine 1.20(EXTER NAL/ABN) 0.50 - 1.00 Sodium 139(SENIOR VICE PRESIDENT & GENERAL COUNSEL AL/ABN) 137 - 145 Potassium 4.0([facility]) 3.5 - 5.1 Chloride 104([facility]) 96 - 110 CO2 25(Externa l Lab) 21 - 34 Calcium 9.5([facility]) 8.4 - 10.2 Total Protein 8.6(SENIOR VICE PRESIDENT & GENERAL COUNSEL AL/ABN) 6.3 - 8.2 Albumin 4.4([facility]) 3.5 - 5 Total Bilirubin 0.6([facility]) 0.2 - 1.3 Alk Phos 106([facility]) 38 - 126 AST 46(Externa l Lab) 15 - 46 ALT 43(Externa l Lab) 0 - 34 Blood specimen (specimen) 05/19/2020 12:19 PM EDT Historical Provider CHEMISTRY ORDERAB LES * (ABNORMAL) CBC (with Diff) (05/19/2020 12:19 PM EDT) WBC 5.8([facility]) 4.8 - 11.8 Hemoglobin 11.4(EXTER NAL/ABN) 12.0 - 16.0 Hematocrit 34.3(EXTER NAL/ABN) 37.0 - 47.0 Platelets 210([facility]) 130 - 400 Neutr Abs (ANC) 2.8([facility]) 1.4 - 6.5 Blood specimen (specimen) 05/19/2020 12:19 PM EDT Historical Provider HEMATOLOGY ORDERA BLES documented in this encounter Visit Diagnoses Not on filedocumented in this encounter Care Teams Hogshead Weigher Relationship Specialty Start Date End Date Kathy Wright, CEPHALOMETRIC TECHNICIAN PCP - General Family Medicine 04/22/19 documented as of this encounter
--- OUTSIDE RECORDS SUMMARY | 2024-06-24 01:09 | XMS_ITS | Encounter Summary ---
[place] [address] Care Team Providers Care Building Rigger Name Role Phone Kathy Wright APRN Primary Care Provider [phone] Encounter Details Date Type Department Care Team (Late st Contact Info) Description 07/17/2020 [place] [address] Marry Wellington LNA Social History Tobacco Use [...] encounter Miscellaneous Notes * Telephone Encounter - Marry Wellington LNA - 07/17/2020 11:54 AM EDT LM for pt to call us back re appt on 07/[address] Garcia. Offered telehealth appt. documented in this encounter Plan of Treatment Not on file documented as of this encounter Visit Diagnoses Not on filedocumented in this encounter Care Teams Building Rigger Relationship Specialty Start Date End Date Kathy Wright APRN PCP - General Family Medicine 04/22/19 documented as of this encounter
--- OUTSIDE RECORDS SUMMARY | 2024-06-24 01:09 | XMS_ITS | Encounter Summary ---
[place] [address] Care Team Providers Care Dental Patient Coordinator Name Role Phone Kathy Wright MARÍA Primary Care Provider Encounter Details Date Type Department Care Team (Late st Contact Info) Description 04/14/2020 Telephone [place] [address] Marry Wellington LNA Social History Tobacco Use [...] Telephone Encounter - Marry Wellington LNA - 04/14/2020 2:17 PM EDT Call from March in Onc re pts appt in May with Dr. Garcia. Dr. West would like the pt to be seen or have telehealth appt sooner. Message sent to Dr. Garcia asking if he wants to see her in clinicor telehealth. documented in this encounter Plan of Treatment Not on file documented as of this encounter Visit Diagnoses Not on filedocumented in this encounter Care Teams Dental Patient Coordinator Relationship Specialty Start Date End Date Kathy Wright APRN PCP - General Family Medicine 04/22/19 documented as of this encounter
--- OUTSIDE RECORDS SUMMARY | 2024-06-24 01:09 | XMS_ITS | Encounter Summary ---
[place] [address] Care Team Providers Care Voltage Regulator Assembler Name Role Phone Kathy Wright Butch DANIEL Primary Care Provider [phone] Encounter Details Date Type Department Care Team (Late st Contact Info) Description 03/16/2020 External Results Hematology [place] [address] Gal Cartwright RN Social History Tobacco Use Types Packs/Day [...] Procedure Name Priority Date/Time Associated Diagnosis Comments EXTERNAL LAB CBC CMP THYROID RESULTS PANEL Routine 03/15/2020 documented in this encounter Results * CBC / CMP / Thyroid External Results (03/15/2020) Sodium 139 Potassium 4.5 Chloride 102 CO2 26 BUN 21 Creatinine 1.30 Estimated GFR 41.92 Glucose Lvl 116 Calcium 9.4 8.5 - 10.1 Magnesium 1.5 mg/dL Ferritin 371 Anion Gap 11 03/15/2020 Toño West MD POINT OF CARE TE ST ORDERABLES documented in this encounter Visit Diagnoses Not on filedocumented in this encounter Care Teams Voltage Regulator Assembler Relationship Specialty Start Date End Date Kathy Wright APRN PCP - General Family Medicine 04/22/19 documented as of this encounter
--- OUTSIDE RECORDS SUMMARY | 2024-06-24 01:09 | XMS_ITS | Encounter Summary ---
[place] [address] Care Team Providers Care Operations Section Manager Name Role Phone Kathy Wright MARÍA Primary Care Provider [phone] Encounter Details Date Type Department Care Team (Late st Contact Info) Description 01/19/2020 Telephone Hematology [place] [address] Marcela Joyce, RN Social History Tobacco Use Types Packs/Day [...] encounter Miscellaneous Notes * Telephone Encounter - Marcela Joyce, RN - 01/19/2020 12:04 PM EST T/C from Lia from [facility] Med infusion there received one unit of blood. She wanted to report the high blood pressure that the patient has today, before starting the transfusion she was 168/93, after receiving one unit of blood the patient is now 186/120, Lia also reported to the PCP's office as well. Patient is asymptomatic, she is still done and leaving the clinic but waiting for her ride. Per METAL BUMPER: Patient to see her PCP tomorrow for blood pressure check T/C To Patient's PCP office spoke to Sofia ), they are aware of the reading as Lia from [facility] did report it to them. They will be contacting the patient to come in for blood pressurecheck tomorrow. They have had trouble contacting the patient in the past but they will reach out. They will call back with further questions or concerns or changes in condition documented in this encounter Plan of Treatment Not on file documented as of this encounter Visit Diagnoses Not on filedocumented in this encounter Care Teams Operations Section Manager Relationship Specialty Start Date End Date Kathy Wright APRN PCP - General Family Medicine 04/22/19 documented as of this encounter
--- OUTSIDE RECORDS SUMMARY | 2024-06-24 01:09 | XMS_ITS | Encounter Summary ---
[place] [address] Care Team Providers Care Dope Firer Name Role Phone Kathy Wright MARÍA Primary Care Provider [phone] Encounter Details Date Type Department Care Team (Late st Contact Info) Description 05/02/2020 Telephone Hematology [place] [address] Radha Bynum RN Social History Tobacco Use [...] Telephone Encounter - Radha Bynum RN - 05/02/2020 8:19 AM EDT Follow-up: media consultant outside sales to follow-up on BMP results tomorrow on 05/02 and will call patient with results. Call placed to Marleni to remind her of the lab need. Marleni states she did not remember to get these drawn and she is flying to [place] in 5 hours and is not able to get these drawn. She will be staying with her family for the next 2 months. Plan: Discussed above lab need with Dr. West who states he would like to get a BMP drawn when she is settled in [place]. Call placed back to Marleni to discuss. Left a voice message with the above information. No call back by end of clinic day. media consultant outside sales to follow-up with Marleni tomorrow on 05/03. documented in this encounter Plan of Treatment Not on file documented as of this encounter Visit Diagnoses Not on filedocumented in this encounter Care Teams Dope Firer Relationship Specialty Start Date End Date Kathy Wright APRN PCP - General Family Medicine 04/22/19 documented as of this encounter
--- OUTSIDE RECORDS SUMMARY | 2024-06-24 01:09 | XMS_ITS | Encounter Summary ---
Author Organization [facility] [place] [address] Care Team Providers Care Trimmer Machine Name Role Phone Kathy Wright APRN Primary Care Provider [phone] Encounter Details Date Type Department Care Team (Late st Contact Info) Description 08/21/2020 4:20 PM EDT Ancillary Procedure Radiology Library at [facility] [place] [address] Kathy Wright APRN [address], [place] [id number] Social History Tobacco Use Types Packs/Day Years [...] Procedure Name Priority Date/Time Associated Diagnosis Comments FILM LIBRARY STORAGE ONLY CT CHEST Routine 08/21/2020 4:16 PM EDT documented in this encounter Results * Film Library- Storage Only CT Chest (08/21/2020 4:16 PM EDT) Narrative DELIA - 08/21/2020 4:16 PM EDT This exam is auto-finalizing. It's purpose is for storage only. Kathy Wright APRN IMG FILM LIBRARY ORD ERABLES DELIA [place] documented in this encounter Visit Diagnoses Not on filedocumented in this encounter Care Teams Trimmer Machine Relationship Specialty Start Date End Date Kathy Wright, MARÍA PCP - General Family Medicine 04/22/19 documented as of this encounter
--- OUTSIDE RECORDS SUMMARY | 2024-06-24 01:09 | XMS_ITS | Encounter Summary ---
Author Organization [facility] Address [facility] [place] [address] Care Team Providers Care Lubrication Technician Name Role Phone Kathy Wright PROPERTY MANAGEMENT INTERN Primary Care Provider [phone] Encounter Details Date Type Department Care Team (Latest Contact Info) Description 04/25/2020 9:00 AM EDT TH Visit (TeleHealth) [place] [address] Timo Garcia MD [facility] [place] [address] Chronic obstructive pulmonary disease, unspecified COPD type [...] Progress Notes * Timo Garcia MD - 04/25/2020 9:00 AM EDT Images from the original note were not included. SECTION OF PULMONARY AND CRITICAL CARE?? Pulmonary and [place] [address] Telephone Follow-up visit Follow-up 59 y.o. female with PMH notable for COPD, fibromyalgia and falls who presents with stage IIIa (pT1bN2) lung cancer, who underwent right basilar segmentectomy of the lower lobe and mediastinal lymph node dissection (10/06/2019). Her pathologic diagnosis determined to be pT1bN2 (stage IIIa).She started adjuvant chemotherapy with cisplatin/pemetrexed in October 2019. She received Cycle 2 on 12/07/2019, complicated by NAHUM. The start of cycle 3 was delayed and was given with carboplatin instead of cisplatin on 01/04/20. The last cycle was not tolerated well, she had significant nausea and fatigue. Was evaluated locally, received hydration. The fourth cycle was canceled because of persistent renal impairment and overall clinical deterioration. She has had dyspnea on exertion which requires stopping her activities to catch her breath. Occasional cough. Not smoking. She is currently unclear about exactly what her bronchodilator regimen is, but she had apparently not done well on a low dose of Advair, perhaps not well with Breo, somewhat better with Anoro twice daily (as well as albuterol rescue). Her medication list includes Flovent, though this is unfamiliar to her. She is planning on going to [place] shortly for the summer. PAST MEDICAL HISTORY: Patient Active Problem List Diagnosis Code ??? Closed compression fracture of body of L1 vertebra S32.010A ??? Lung nodule R91.1 ??? Dizziness R42 ??? COPD (chronic obstructive pulmonary disease) J44.9 ??? Mixed anxiety and depressive disorder F41.8 ??? Non-small cell lung cancer, right C34.91 Past Surgical History: Procedure Laterality Date ??? PRO BRONCHOSCOPY, DIAGNOSTIC N/A 10/06/2019 BRONCHOSCOPY, DIAGNOSTIC (WRVU 2.78) performed by Juan Ny MD at [facility] MAIN OR ? ? PRO INJECTION ANES AGENT &/ STEROID INTERCOSTAL NERVE EA ADDL LEVEL Right 10/06/2019 NERVE BLOCK, INTERCOSTAL NERVE, MULTIPLE (WRVU 1.68) performed by Juan Ny MD at [facility] MAIN OR ??? PRO THORACOSCOPY SURG LOBECTOMY Right 10/06/2019 @ROBOT XI THORACOSCOPY,SURGICAL,W\LOBECTOMY,TOTAL OR SEGMENTAL (WRVU 24.64) performed by Juan Ny MD at [facility] MAIN OR ??? PRO THORACOSCOPY WITH MEDIASTINAL AND REGIONAL LYMPHADENECTOMY Right 10/06/2019 @ROBOT XI THORACOSCOPY,SURG; W/MEDIASTINAL& REGIONAL LYMPHADENECTOMY (WRVU 4.12) performed by Juan Ny MD at [facility] MAIN OR ??? PRO THORACOSCOPY WITH WEDGE RESECTION AND ANATOMIC LUNG RESECTN Right 10/06/2019 @ROBOT XI THORACOSCOPY,SURG; W/DX WEDGE RESC W/ANATOMIC LUNG RESC (WRVU 3) performed by Juan Ny MD at [facility] MAIN OR MEDICATIONS: Current Outpatient Medications Medication Sig Dispense Refill ??? magnesium oxide (Mag-Ox) 400 mg (241.3 mg magnesium) Tablet TAKE ONE TABLET BY MOUTH EVERY DAY 30 tablet 1 ??? potassium chloride ER (K-Dur/Klor-Con) 10 mEq Tablet Sustained Release Take 4 tablets by mouth daily. 120 tablet 0 ??? dexamethasone (Decadron) 4 mg Tablet Take 1 tablet by mouth daily. 4 tablet 0 ??? diphenhydrAMINE/aluminum-magnesium hydroxide with simethicone/lidocaine (BMX) (6.67 mg-0.83 mg-13.33 mg-1.33 mg/mL) oral liquid Take 5 mLs by mouth 4 times daily. 200 mL 1 ??? benzonatate (TESSALON) 100 mg Capsule Take 1 capsule by mouth 3 times daily as needed for Cough. (Patient not taking: Reported on 12/15/2019) 30 tablet 0 ??? ondansetron (ZOFRAN) 4 mg Tablet Take 1 tablet by mouth every 8 hours as needed for Nausea. (Patient not taking: Reported on 12/15/2019) 20 tablet 3 ??? gabapentin (NEURONTIN) 100 mg Capsule Take 1 capsule by mouth 3 times daily as needed. 60 capsule 0 ??? acetaminophen (TYLENOL) 500 mg Tablet Take 2 tablets by mouth every 6 hours. (Patient not taking: Reported on 12/15/2019) 120 tablet 1 ??? docusate sodium (COLACE) 100 mg Capsule Take 1 capsule by mouth 3 times daily. (Patient not taking: Reported on 10/21/2019) 90 capsule 1 ??? senna (SENOKOT) 8.6 [...] 1 tablet nightly as needed. 3 ??? cloNIDine (CATAPRES) 0.1 mg Tablet 1 tablet daily. 3 ??? FLOVENT HFA 110 mcg/actuation HFA Aerosol Inhaler 2 puffs 2 times daily as needed. 5 ??? levothyroxine (SYNTHROID) 100 mcg Tablet 1 tablet daily. 3 ??? metoprolol tartrate (LOPRESSOR) 50 mg Tablet 1 tablet 2 times daily. 4 ??? Ranitidine HCl (ZANTAC) 300 mg Capsule 1 capsule nightly. 5 ??? albuterol 90 mcg/actuation HFA Aerosol Inhaler Inhale 2 puffs into the lungs every 4 hours as needed for Wheezing. Use with spacer ??? omeprazole (PRILOSEC) 40 mg capsule (Patient taking differently: Take by mouth daily.) Current Facility-Administered Medications Medication Dose Route Frequency Provider Last Rate Last Dose ??? sodium chloride 0.9% infusion 500 mL/hr Intravenous Continuous Toño West MD ALLERGIES:Cis free text allergy; Isopropamide; and Prochlorperazine PHYSICAL EXAM-deferred IMPRESSION: In summary, this is a 59 y.o. female with a mild degree of COPD prior to her surgical resection and subsequent chemotherapy, who describes dyspnea on exertion which is responsive to an albuterol rescue inhaler, but it is not clear how much benefit she has achieved with various controller medications (or whether she has been using them properly). She is not in any distress, but she states that when she is making her bed, she has to stop, rest, and then resume, not unlike what happenswith most activities. She does not endorse cough or wheeze, and is a bit hard to understand on the phone. I suggested, based upon notes in her chart, that she was on a low dose of Advair which was not very helpful, was apparently started on Breo (she has no recollection of this), and though she is using the Anoro, she was apparently placed on Flovent in addition, which she is only vaguely familiar with and cannot put her hands on it. I suggested that she continue the Anoro, the pro-air rescue, and to add Jean-Pierre ALBA 230-21, 1 puff twice daily with a spacing chamber. I will arrange a follow-up in about 6 months and check her routine PFTs as well as examine her. She is planning on spending thesummer in [place] and I encouraged her to be cautious with respect to the ongoing pandemic. Telephone visit: 35 minutes. documented in this encounter Plan of Treatment Not on file documented as of this encounter Visit Diagnoses Diagnosis Chronic obstructive pulmonary disease, unspecified COPD type documented in this encounter Care Teams Lubrication Technician Relationship Specialty Start Date End Date Kathy Wright APRN PCP - General Family Medicine 04/22/19 documented as of this encounter
--- OUTSIDE RECORDS SUMMARY | 2024-06-24 01:09 | XMS_ITS | Encounter Summary ---
[place] [address] Care Team Providers Care Recovery Operator Name Role Phone Kathy Wright COMBINATION MACHINE TOOL OPERATOR Primary Care Provider [phone] Encounter Details Date Type Department Care Team (Late st Contact Info) Description 02/15/2020 Telephone Hematology [place] [address] Radha Bynum RN Social History Tobacco Use [...] Telephone Encounter - Radha Bynum RN - 02/15/2020 2:56 PM EDT Request from provider-Dr. West: Let's reschedule in 6 weeks but get a CBC and CMP locally on 02/28. Marleni would like to have her labs drawn on 02/28 at [facility]. retort or condenser press operator to follow-up with lab results on 02/28 and call patient with results. documented in this encounter Plan of Treatment Not on file documented as of this encounter Visit Diagnoses Not on filedocumented in this encounter Care Teams Recovery Operator Relationship Specialty Start Date End Date Kathy Wright APRN PCP - General Family Medicine 04/22/19 documented as of this encounter
--- OUTSIDE RECORDS SUMMARY | 2024-06-24 01:09 | XMS_ITS | Encounter Summary ---
[place] [address] Care Team Providers Care Broadband Installer Name Role Phone GerardoKathy nicolas Butch DANIEL Primary Care Provider [phone] Encounter Details Date Type Department Care Team (Late st Contact Info) Description 04/19/2020 Tele[place] [address] Marry Wellington LNA Social History Tobacco Use [...] Telephone Encounter - Marry Wellington LNA - 04/19/2020 3:35 PM EDT Called pt to schedule telehealth appt with Dr. Garcia for 04/25. Pts PCP was at the house and got Receptor phone, pt does not have appropriate technology for a telehealth appt. Phone visit was scheduled. Pt was scheduled for in clinic visit on 06/05, pt will be in [place], rescheduled to 07/24. Letter sent. documented in this encounter Plan of Treatment Not on file documented as of this encounter Visit Diagnoses Not on filedocumented in this encounter Care Teams Broadband Installer Relationship Specialty Start Date End Date Kathy Wright APRN PCP - General Family Medicine 04/22/19 documented as of this encounter
--- OUTSIDE RECORDS SUMMARY | 2024-06-24 01:09 | XMS_ITS | Encounter Summary ---
[place] [address] Care Team Providers Care Community Service Specialist Name Role Phone Kathy Wright MARÍA Primary Care Provider [phone] Encounter Details Date Type Department Care Team (Late st Contact Info) Description 05/05/2020 Telephone Hematology [place] [address] Radha Bynum RN Social History Tobacco Use [...] Telephone Encounter - Radha Bynum RN - 05/05/2020 8:31 AM EDT Follow-up: Multiple calls were made to Marleni today to discuss lab draw while in [place]. No call back by end of clinic day. journey lineman to attempt again on 05/05 when back in office. Call placed to Marleni again to discuss lab need while in [place]. Voice message left with no call back. Call placed to Marleni's PCP office at [phone] and spoke to Debbi. Reviewed we have been trying to reach Marleni with no luck and we unfortunately do not have another number listed for her OR her emergency contact Blaze Best. She states Fe Dailey phone number is [phone]. Call placed to Blaze Best (son) at above number to discuss lab need. Multiple attempts were made. Not able to leave a message. Dr. West updated on the inability to reach Marleni to request labs while in [place]. documented in this encounter Plan of Treatment Not on file documented as of this encounter Visit Diagnoses Not on filedocumented in this encounter Care Teams Community Service Specialist Relationship Specialty Start Date End Date Kathy Wright APRN PCP - General Family Medicine 04/22/19 documented as of this encounter
--- OUTSIDE RECORDS SUMMARY | 2024-06-24 01:09 | XMS_ITS | Encounter Summary ---
[facility] [place] [address] Care Team Providers Care Needle Grader Name Role Phone Kathy Wright APRN Primary Care Provider [phone] Reason for Visit * Reason Comments Medication Refill Encounter Details Date Type Department Care Team (Late st Contact Info) Description 03/30/2020 Refill Hematology [place] [address] Adrienne Mendez APRN [facility]EMATOLOGY[place] [address] Social History Tobacco Use Types Packs/Day Years [...] on filedocumented in this encounter Care Teams Needle Grader Relationship Specialty Start Date End Date Kathy Wright APRN PCP - General Family Medicine 04/22/19 documented as of this encounter
--- OUTSIDE RECORDS SUMMARY | 2024-06-24 01:09 | XMS_ITS | Encounter Summary ---
Author Organization [facility] [place] [address] Care Team Providers Care Nurse Liaison Name Role Phone Kathy Wright APRN Primary Care Provider [phone] Encounter Details Date Type Department Care Team (Late st Contact Info) Description 06/27/2020 Orders Only Hematology [place] [address] Toño West MD [facility] [address] Non-small cell lung cancer, right Social History [...] right documented in this encounter Care Teams Nurse Liaison Relationship Specialty Start Date End Date Kathy Wright APRN PCP - General Family Medicine 04/22/19 documented as of this encounter
--- OUTSIDE RECORDS SUMMARY | 2024-06-24 01:09 | XMS_ITS | Encounter Summary ---
[place] [address] Care Team Providers Care Bacteriologist Industrial Name Role Phone Kathy Wright Butch DANIEL Primary Care Provider [phone] Encounter Details Date Type Department Care Team (Late st Contact Info) Description 01/24/2020 Telephone Hematology [place] [address] Jane Calles RN Social History Tobacco Use Types Packs/Day [...] encounter Miscellaneous Notes * Telephone Encounter - Jane Calles RN - 01/25/2020 10:48 AM EST RESEARCH NURSE TELEPHONE NOTE [id number],Adjuvant Lung Cancer Enrichment Marker Identification and Sequencing Trial Date: 01/24/2020 Time: 3:59 PM Study Day: prescreening Reason for call: incomplete informed consent (home) I spoke with Marleni and explained that the she missed checking off yes or no to the Optional Banking Study, where her leftover tissue or blood sample would be stored for future use for research at the [facility], and explained she would not have any say or knowledge of what that future research is. I read the text box directly to her. She verbalized yes she agrees to have any unused samples stored for future date. We will update her consent form with her at her next visit. I thanked her for her time. documented in this encounter Plan of Treatment Not on file documented as of this encounter Visit Diagnoses Not on filedocumented in this encounter Care Teams Bacteriologist Industrial Relationship Specialty Start Date End Date Kathy Wright APRN PCP - General Family Medicine 04/22/19 documented as of this encounter
--- OUTSIDE RECORDS SUMMARY | 2024-06-24 01:09 | XMS_ITS | Encounter Summary ---
[place] [address] Care Team Providers Care Fish Skinning Machine Feeder Name Role Phone Kathy Wright APRN Primary Care Provider [phone] Encounter Details Date Type Department Care Team (Late st Contact Info) Description 04/06/2020 External Results Hematology [place] [address] Theroux, Mer[place] E Social History Tobacco Use Types Packs/Day Years [...] on filedocumented in this encounter Care Teams Fish Skinning Machine Feeder Relationship Specialty Start Date End Date Kathy Wright APRN PCP - General Family Medicine 04/22/19 documented as of this encounter
--- OUTSIDE RECORDS SUMMARY | 2024-06-24 01:09 | XMS_ITS | Encounter Summary ---
[place] [address] Care Team Providers Care Furnace Feeder Name Role Phone Kathy Wright STATISTICIAN MATHEMATICAL Primary Care Provider [phone] Encounter Details Date Type Department Care Team (Late st Contact Info) Description 04/11/2020 Telephone Hematology [place] [address] aRdha Bynum, RN Social History Tobacco Use Types Packs/Day [...] Telephone Encounter - Radha Bynum RN - 04/11/2020 8:24 AM EDT Request from provider: JARETH at [facility] in 1 months, call her with the results and let me know. Discussed above lab need with Dr. West who states: She had labs last week, so she doesn't need them today but will need them in 3 weeks locally. The results will determine if she needs another setsooner than the 4 months. Call placed to Marleni to discuss. Left a voice message reviewing she needs to have labs drawn on 05/02 locally at [facility]. Encouraged her to call back should she have further questions or concerns. stripping machine operator to follow-up on lab results on 05/02 and call patient with results. documented in this encounter Plan of Treatment Not on file documented as of this encounter Visit Diagnoses Diagnosis Non-small cell lung cancer, right documented in this encounter Care Teams Furnace Feeder Relationship Specialty Start Date End Date Kathy Wright, MARÍA PCP - General Family Medicine 04/22/19 documented as of this encounter
--- OUTSIDE RECORDS SUMMARY | 2024-06-24 01:09 | XMS_ITS | Encounter Summary ---
Author Organization [facility] [place] [address] Care Team Providers Care Ruby Software Developer Name Role Phone Kathy Wright APRN Primary Care Provider [phone] Encounter Details Date Type Department Care Team (Late st Contact Info) Description 04/06/2020 4:25 PM EDT Ancillary Procedure [place] [address] Toño West MD [facility] [place] [address] Social History Tobacco Use Types Packs/Day Years [...] Comments FILM LIBRARY STORAGE ONLY CT CHEST ABDOMEN PELVIS Routine 04/06/2020 4:23 PM EDT documented in this encounter Results * Film Library- Storage Only CT Chest Abdomen Pelvis (04/06/2020 4:23 PM EDT) Narrative DECLAN LIN - 04/06/2020 4:23 PM EDT This exam is auto-finalizing. It's purpose is for storage only. Toño West MD IMG FILM LIBRARY ORDERABLES DEL[place], [place] documented in this encounter Visit Diagnoses Not on filedocumented in this encounter Care Teams Ruby Software Developer Relationship Specialty Start Date End Date Kathy Wright APRN PCP - General Family Medicine 04/22/19 documented as of this encounter
--- OUTSIDE RECORDS SUMMARY | 2024-06-24 01:09 | XMS_ITS | Encounter Summary ---
Author Organization [place] [address] Care Team Providers Care Clerk Checker Name Role Phone Kathy Wright MARÍA Primary Care Provider [phone] Encounter Details Date Type Department Care Team (Late st Contact Info) Description 01/17/2020 Refill Hematology [place] [address] Radha Bynum RN Non-small cell lung cancer, right Social History [...] Telephone Encounter - Radha Bynum RN - 01/17/2020 8:29 AM EST Follow-up: Triage-f/u on labs from [facility]. ??Call pt to assess symptoms-nausea, weakness, dizziness on 01/17. ??Started on dex on 01/13 for 4 days. 1L of fluid at [facility] Call placed to Marleni to discuss. Marleni states the nausea has improved and has completley gone away. She is eating and drinking without difficulty. The dizziness has also improved however she doesstill experience this at times when she has been standing for a long amount of time. No falls. Steady on her feet. Marleni does note over the past couple of days she has been having increasing SOB with exertion. She will walk to her kitchen to her bathroom and feel very SOB. Denies chest pain, palpitations, fevers or cough. She is moving her bowels without difficulty. LBM yesterday and this was normal. She completed her dexamethasone yesterday in which she had taken 4 mg daily for the past 4 days. No bleeding however does have scant blood in her nose when she blows her nose. She is using a humidifier with good relief. Plan: Lab results and above reviewed with Adrienne Mendez APRN and Dr West who states they wouldlike to draw a type and screen, transfuse 1 unit of PRBC's, start potassium 40 meq PO daily and magoxide 400 mg PO daily. She should remain on the mag and K until her next visit when labs will be repeated. Call placed back to Marleni to discuss above plan. Reviewed above with her and she verbalized understanding. She will wait to hear from the clinical department secretary regarding a time for her transfusion in [facility] [place]. She has mag oxide at home already and does not need this script, only the potassium. Encouraged her to call back should she have further questions or concerns. Type and screen order placed. Potassium scripts pended to Adrienne Mendez APRN for review and signature. Transfusion orders to be placed by Adrienne Mendez. Clinical department secretary to schedule blood transfusion in [facility] [place] and call patient with date and time. documented in this encounter Plan of Treatment Not on file documented as of this encounter Procedures Procedure Name Priority Date/Time Associated Diagnosis Comments CBC (WITH DIFF) Routine 01/17/2020 COMPREHENSIVE METABOLIC PANEL (NON-FASTING) Routine 01/17/2020 documented in this encounter Results * (ABNORMAL) CBC (with Diff) (01/17/2020) WBC 4.97(Exter nal Lab) 4.4 - 10.8 Hemoglobin 7.8(VENEREAL DISEASE INVESTIGATOR AL/ABN) 12.0 - 15.5 Hematocrit 22.7(EXTER NAL/ABN) 36.0 - 46.0 Platelets 73(EXTERNA L/ABN) 130 - 400 Neutr Abs (ANC) 1.25(Exter nal Lab) 1.2 - 6.7 Blood specimen (specimen) 01/17/2020 Historical Provider HEMATOLOGY ORDERA BLES * (ABNORMAL) Comprehensive metabolic panel (non-fasting) (01/17/2020) Glucose Lvl 104(Chamber Worker al Lab) 74 - 106 BUN 15(Externa l Lab) 7 - 18 Creatinine 1.32(EXTER NAL/ABN) 0.55 - 1.02 Sodium 142(Chamber Worker al Lab) 136 - 145 Potassium 3.2(VENEREAL DISEASE INVESTIGATOR AL/ABN) 3.5 - 5.1 Chloride 104(Chamber Worker al Lab) 98 - 107 CO2 28(Externa l Lab) 21 - 32 Calcium 8.7(Chamber Worker al Lab) 8.5 - 10.1 Albumin 3.5(Chamber Worker al Lab) 3.4 - 5.0 Total Bilirubin 0.3(Chamber Worker al Lab) 0.2 - 1.0 Alk Phos 94(Externa l Lab) 46 - 116 AST 23(Externa l Lab) 15 - 37 ALT 44(Externa l Lab) 14 - 59 Magnesium 1.4(VENEREAL DISEASE INVESTIGATOR AL/ABN) 1.8 - 2.4 mg/dL Blood specimen (specimen) 01/17/2020 Historical Provider CHEMISTRY ORDERAB LES documented in this encounter Visit Diagnoses Diagnosis Non-small cell lung cancer, right documented in this encounter Care Teams Clerk Checker Relationship Specialty Start Date End Date Kathy Wright APRN PCP - General Family Medicine 04/22/19 documented as of this encounter
--- OUTSIDE RECORDS SUMMARY | 2024-06-24 01:09 | XMS_ITS | Encounter Summary ---
Author Organization [facility] [place] [address] Care Team Providers Care Airfield Manager Name Role Phone Kathy Wright MARÍA Primary Care Provider [phone] Encounter Details Date Type Department Care Team (Late st Contact Info) Description 02/17/2020 Telephone Hematology [place] [address] Scarlett Castillo, RN Social History Tobacco Use [...] Telephone Encounter - Scarlett Castillo, RN - 02/17/2020 7:52 AM EDT Follow-up: mortgage loan officer to follow-up on BMP results on 02/16 [facility] and call patient with results. Monitoring her BUN/Cr. Lab results received, entered into ED-H & reviewed with Dr. West. Per Dr. West: Let's arrange for a repeat BMP with magnesium in 1 week locally. Orders placed for BMP, Mg+. Message sent to statistical secretary to arrange labs for 02/24 @ [facility]. Triage nurseto f/u on results. Marleni is aware of this lab draw and will get this done on 02/24. Clinical statistical secretary to fax orders to [facility]. mortgage loan officer to follow-up on lab results on 02/24 and call patient with results. Message received from statistical secretary: Marleni had more questions about her lab work on Fridays specifically the Mg ??She will go on Friday to have it drawn. She also reports that she has had a headache for days [phone] Call placed back to discuss. Pt wanting to know why she needs to have labs drawn again. Explained that her BUN/Creat (kidney function) have been elevated & her magnesium slightly low. Explained that we needed to make sure labs are improving & not getting any worse. Marleni verbalized understanding & will get labs as planned. Pt also reports she has had a headache for the past 4 days that has been constant. Headache is mid forehead & described as a dull aching pain. Pain rated 6/10 on pain scale. No nausea or vomiting. Some noted photosensitivity associated with headaches but no double vision or floaters. A/O x 3 with no mental status changes. No slurred speech, facial drooping or focal weakness. Headaches are notworse in the morning & are pretty consistent t/o the day. She has been taking one tylenol 1-2 times per day with no relief. Pt has tylenol 500 mg tabs on her med list. Advised that she can take tylenol 1000 mg po every 6 hrs prn headache. Reinforced she should not take more than 4000 mg in a 24hr period. Suggested she try tylenol 1000 mg po for her headache today & she can take a dose of6 hrs if needed. If headaches persist or worsen despite tylenol or she has any additional symptoms she should call back to clinic . Pt in agreement with plan and knows to call clinic with any concerns and/or questions. documented in this encounter Plan of Treatment Not on file documented as of this encounter Procedures Procedure Name Priority Date/Time Associated Diagnosis Comments CBC (WITH DIFF) Routine 02/18/2020 11:04 AM EDT COMPREHENSIVE METABOLIC PANEL (NON-FASTING) Routine 02/18/2020 11:04 AM EDT documented in this encounter Results * (ABNORMAL) Comprehensive metabolic panel (non-fasting) (02/18/2020 11:04 AM EDT) Glucose Lvl 173(CHILD NUTRITION DIRECTOR AL/ABN) 74 - 106 BUN 19(EXTERNA L/ABN) 7 - 18 Creatinine 1.52(EXTER NAL/ABN) 0.55 - 1.02 Sodium 141(Apparel Sales Leader al Lab) 136 - 145 Potassium 4.3(Apparel Sales Leader al Lab) 3.4 - 5.0 Chloride 104(Apparel Sales Leader al Lab) 98 - 107 CO2 26(Externa l Lab) 21 - 32 Calcium 9.3(Apparel Sales Leader al Lab) 8.5 - 10.1 Total Protein 7.4(Apparel Sales Leader al Lab) 6.4 - 8.2 Albumin 3.6(Apparel Sales Leader al Lab) 3.4 - 5 Total Bilirubin 0.2(Apparel Sales Leader al Lab) 0.2 - 1 Alk Phos 100(Apparel Sales Leader al Lab) 46 - 116 AST 19(Externa l Lab) 15 - 37 ALT 41(Externa l Lab) 14 - 59 Magnesium 1.7(CHILD NUTRITION DIRECTOR AL/ABN) 1.8 - 2.4 mg/dL Blood specimen (specimen) 02/18/2020 11:04 AM EDT Historical Provider CHEMISTRY ORDERAB LES * (ABNORMAL) CBC (with Diff) (02/18/2020 11:04 AM EDT) WBC 5.69(Exter nal Lab) 4.4 - 10.8 Hemoglobin 8.8(CHILD NUTRITION DIRECTOR AL/ABN) 12.0 - 15.5 Hematocrit 26.5(EXTER NAL/ABN) 36.0 - 46.0 Platelets 280(Apparel Sales Leader al Lab) 130 - 400 Neutr Abs (ANC) 3.52(Exter nal Lab) 1.2 - 6.7 Blood specimen (specimen) 02/18/2020 11:04 AM EDT Historical Provider HEMATOLOGY ORDERA BLES documented in this encounter Visit Diagnoses Diagnosis Non-small cell lung cancer, right documented in this encounter Care Teams Airfield Manager Relationship Specialty Start Date End Date Kathy Wright APRN PCP - General Family Medicine 04/22/19 documented as of this encounter
--- OUTSIDE RECORDS SUMMARY | 2024-06-24 01:09 | XMS_ITS | Encounter Summary ---
[place] [address] Care Team Providers Care Yard Pilot Name Role Phone Kathy Wright Butch DANIEL Primary Care Provider [phone] Encounter Details Date Type Department Care Team (Late st Contact Info) Description 04/06/2020 External Results Hematology [place] [address] Theroux, Mer[place] E Non-small cell lung cancer, right Social History [...] Date/Time Associated Diagnosis Comments CBC (WITH DIFF) STAT 04/06/2020 1:25 PM EDT Non-small cell lung cancer, right MAGNESIUM STAT 04/06/2020 1:25 PM EDT Non-small cell lung cancer, right LACTATE DEHYDROGENASE STAT 04/06/2020 1:25 PM EDT Non-small cell lung cancer, right COMPREHENSIVE METABOLIC PANEL (NON-FASTING) STAT 04/06/2020 1:25 PM EDT Non-small cell lung cancer, right documented in this encounter Results * (ABNORMAL) Lactate Dehydrogenase (04/06/2020 1:25 PM EDT) Pathologist [facility] LDH 260(EXTERNA L/ABN) 81 - 234 EXTERNAL LAB Blood specimen (specimen) 04/06/2020 1:25 PM EDT Adrienne Mendez PSYCHOLOGIST CHEMISTRY ORDERABL ES Performing Organization Address [facility] Co de Phone Number EXTERNAL LAB * (ABNORMAL) CBC (with Diff) (04/06/2020 1:25 PM EDT) Pathologist [facility] WBC 6.47 4.4 - 10.8 EXTERNAL LAB Hemoglobin 11.2(EXTER NAL/ABN) 12.0 - 15.5 EXTERNAL LAB Hematocrit 32.4(EXTER NAL/ABN) 36.0 - 46.0 EXTERNAL LAB Platelets 267 130 - 400 EXTERNAL LAB Neutr Abs (ANC) 3.48 1.2 - 6.7 EXTERNAL LAB Lymphocyte Abs 2.24 1.2 - 3.4 EXTERNAL LAB Blood specimen (specimen) 04/06/2020 1:25 PM EDT Adrienne Mendez PSYCHOLOGIST HEMATOLOGY ORDERAB LES Performing Organization Address [facility] Co de Phone Number EXTERNAL LAB * (ABNORMAL) Comprehensive metabolic panel (non-fasting) (04/06/2020 1:25 PM EDT) Pathologist [facility] Glucose Lvl 95 74 - 106 EXTERNAL LAB BUN 14 7 - 18 EXTERNAL LAB Creatinine 1.42(EXTER NAL/ABN) 0.55 - 1.02 EXTERNAL LAB Estimated GFR 37.86(EXTE RNAL/ABN) EXTERNAL LAB Sodium 137 136 - 145 EXTERNAL LAB Potassium 4.1 3.5 - 5.1 EXTERNAL LAB Chloride 101 98 - 107 EXTERNAL LAB CO2 28 21.0 - 32.0 EXTERNAL LAB Calcium 9.6 8.5 - 10.1 EXTERNAL LAB Total Protein 8.2 6.4 - 8.2 EXTERNAL LAB Total Bilirubin 0.3 0.2 - 1.0 EXTERNAL LAB Alk Phos 110 46 - 116 EXTERNAL LAB AST 31 15 - 37 EXTERNAL LAB ALT 47 14 - 59 EXTERNAL LAB Blood specimen (specimen) 04/06/2020 1:25 PM EDT Adrienne Jacksonvalerie MCGREGORN CHEMISTRY ORDERABL ES Performing Organization Address City/[facility]/ZIP Co de Phone Number EXTERNAL LAB * (ABNORMAL) Magnesium (04/06/2020 1:25 PM EDT) Magnesium 1.6(EXTERNA L/ABN) 1.8 - 2.4 mg/dL EXTERNAL LAB Blood specimen (specimen) 04/06/2020 1:25 PM EDT Adrienne Mendez MARÍA CHEMISTRY ORDERABL ES Performing Organization Address [facility] Co de Phone Number EXTERNAL LAB documented in this encounter Visit Diagnoses Diagnosis Non-small cell lung cancer, right documented in this encounter Care Teams Yard Pilot Relationship Specialty Start Date End Date Kathy Wright APRN PCP - General Family Medicine 04/22/19 documented as of this encounter
--- OUTSIDE RECORDS SUMMARY | 2024-06-24 01:09 | XMS_ITS | Encounter Summary ---
Author Organization [facility] [place] [address] Care Team Providers Care Fiberglass Autobody Repairer Name Role Phone Kathy Wright MARÍA Primary Care Provider [phone] Encounter Details Date Type Department Care Team (Late st Contact Info) Description 02/25/2020 Telephone Hematology [place] [address] Scarlett Castillo, RN Social History Tobacco Use [...] Telephone Encounter - Scarlett Castillo, RN - 02/25/2020 7:53 AM EDT Follow-up: manager digital to follow-up on lab results on 02/24 and call patient with results. Following BUN, Creat, Mg Lab results received, entered into ED-H & reviewed with Dr. West. Per Dr. West will have pt continue to push po fluids & repeat BMP & Mg in 2 weeks (03/10). Call placed pt & reviewed results. Reinforced the importance of pushing po fluids & asked her to have labs again @ [facility] on 03/10. Pt in agreement. Triage nurse to f/u on results. Message sent to construction secretary to request labs be arranged for 03/10 @ [facility]. documented in this encounter Plan of Treatment Not on file documented as of this encounter Procedures Procedure Name Priority Date/Time Associated Diagnosis Comments CBC (WITH DIFF) Routine 02/25/2020 11:00 AM EDT COMPREHENSIVE METABOLIC PANEL (NON-FASTING) Routine 02/25/2020 11:00 AM EDT documented in this encounter Results * (ABNORMAL) Comprehensive metabolic panel (non-fasting) (02/25/2020 11:00 AM EDT) Glucose Lvl 120(A) 74 - 106 BUN 16 7 - 18 Creatinine 1.35(A) 0.55 - 1.02 Sodium 137(Mobile Architect al Lab) 136 - 145 Potassium 4.2(Mobile Architect al Lab) 3.5 - 5.1 Chloride 103(Mobile Architect al Lab) 98 - 107 CO2 25(Externa l Lab) 21 - 32 Calcium 8.8(Mobile Architect al Lab) 8.5 - 10.1 Total Protein 7.4(Mobile Architect al Lab) 6.4 - 8.2 Albumin 3.6(Mobile Architect al Lab) 3.4 - 5 Total Bilirubin 0.3(Mobile Architect al Lab) 0.2 - 1 Alk Phos 98(Externa l Lab) 46 - 116 AST 32(Externa l Lab) 15 - 37 ALT 50(Externa l Lab) 14 - 59 Magnesium 1.7(WELDER FITTER APPRENTICE AL/ABN) 1.8 - 2.4 mg/dL Blood specimen (specimen) 02/25/2020 11:00 AM EDT Historical Provider CHEMISTRY ORDERAB LES * (ABNORMAL) CBC (with Diff) (02/25/2020 11:00 AM EDT) WBC 7.93(Exter nal Lab) 4.4 - 10.8 Hemoglobin 8.9(WELDER FITTER APPRENTICE AL/ABN) 12.0 - 15.5 Hematocrit 26.5(EXTER NAL/ABN) 36.0 - 46.0 Platelets 278(Mobile Architect al Lab) 130 - 400 Neutr Abs (ANC) 4.36(Exter nal Lab) 1.2 - 6.7 Blood specimen (specimen) 02/25/2020 11:00 AM EDT Historical Provider HEMATOLOGY ORDERA BLES documented in this encounter Visit Diagnoses Diagnosis Non-small cell lung cancer, right documented in this encounter Care Teams Fiberglass Autobody Repairer Relationship Specialty Start Date End Date Kathy Wright, OCCUPATIONAL HEALTH NURSE MANAGER PCP - General Family Medicine 04/22/19 documented as of this encounter
--- OUTSIDE RECORDS SUMMARY | 2024-06-24 01:09 | XMS_ITS | Encounter Summary ---
Author Organization [facility] Address [facility] [place] [address] Care Team Providers Care General Road Production Manager Name Role Phone Kathy Wright APRN Primary Care Provider [phone] Reason for Visit * Reason Comments Lung Cancer Follow-up Encounter Details Date Type Department Care Team (Late st Contact Info) Description 04/07/2020 1:00 PM EDT TH Visit (TeleHealth) [place]ematology [place] [address] Toño West MD [facility] [place] [address] Non-small cell lung cancer, right Social History [...] as of this encounter Progress Notes * Toño West MD - 04/07/2020 1:00 PM EDT Images from the original note were not included. Oncology Follow-Up Patient Visit Reason for visit: F/U Stage IIIa lung cancer Patient prefers to be called: Marleni The patient was called in follow-up consultation requested by Dr. Wright for recommendations regarding management of lung cancer. She verbally consents to this telephone visit and understands that thisvisit may be billed, similar to a clinic office visit. HISTORY OF PRESENT ILLNESS: The patient is a 59 y.o. woman with a PMH notable for COPD, fibromyalgia and falls who presents with stage IIIa (pT1bN2) lung cancer. After a fall she underwent a??CT Abd/Pelvis??(performed 04/18/19) that revealed??colitis, acute burst fracture of L1, as well as 16 mm focal opacity of RLL.??A dedicated??CT Chest was performed??07/02/18??which demonstrated stable [id number] nodules in the RLL, largest measuring 9 [...] fourth cycle was canceled because of persistent renalimpairment and overall clinical deterioration. INTERVAL HISTORY: Feels better than on chemotherapy. Breathing stable, still with exertional dyspnea on mild exertion, minimal at rest. Has dyspnea at night. Occasional cough. Appetite about the same as 2 months ago, stable mild dysphagia, no nausea, slow weight loss, yesterday was 147 lbs, drinks Boost occasionally(0-3 day). Stays home to protect against coronavirus. Right sided chest tenderness and right shoulder blade pain, uses a heating pad with relief.BM - regular, except yeterday when she had loose stoolafter the oral contrast. No bleeding. Occasional ANDUJAR. No dysuria. No numbness. Not smoking. ROS See HPI. ROS otherwise [...] 2.78) performed by Juan Ny MD at [facility] MAIN OR ? ? PRO INJECTION ANES AGENT &/ STEROID INTERCOSTAL NERVE EA ADDL LEVEL Right 10/06/2019 NERVE BLOCK, INTERCOSTAL NERVE, MULTIPLE (WRVU 1.68) performed by Juan Ny MD at [facility] MAIN OR ??? PRO THORACOSCOPY SURG LOBECTOMY Right 10/06/2019 @ROBOT XI THORACOSCOPY,SURGICAL,W\LOBECTOMY,TOTAL OR SEGMENTAL (WRVU 24.64) performed by Juan Ny MD at [facility] MAIN OR ??? PRO THORACOSCOPY WITH MEDIASTINAL AND REGIONAL LYMPHADENECTOMY Right 10/06/2019 @ROBOT XI THORACOSCOPY,SURG; W/MEDIASTINAL& REGIONAL LYMPHADENECTOMY (WRVU 4.12) performed by Juan Ny MD at [facility] MAIN OR ??? PRO THORACOSCOPY WITH WEDGE RESECTION AND ANATOMIC LUNG RESECTN Right 10/06/2019 @ROBOT XI THORACOSCOPY,SURG; W/DX WEDGE RESC W/ANATOMIC LUNG RESC (WRVU 3) performed by Juan Ny MD at [facility] MAIN OR MEDS: Current Outpatient Medications on File Prior to Visit Medication Sig Dispense Refill ??? 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 LABORATORY STUDIES Recent Results (from the past 72 hour(s)) Magnesium Result Value Ref Range Magnesium 1.6 (EXTERNAL/ABN) 1.8 - 2.4 mg/dL Comprehensive metabolic panel (non-fasting) Result Value Ref Range Glucose Lvl 95 74 - 106 BUN 14 7 - 18 Creatinine 1.42 (EXTERNAL/ABN) 0.55 - 1.02 eGFR 37.86 (EXTERNAL/ABN) Sodium 137 136 - 145 Potassium 4.1 3.5 - 5.1 Chloride 101 98 - 107 CO2 28 21.0 - 32.0 Calcium 9.6 8.5 - 10.1 Total Protein 8.2 6.4 - 8.2 Total Bilirubin 0.3 0.2 - 1.0 Alk Phos 110 46 - 116 AST 31 15 - 37 ALT 47 14 - 59 CBC (with Diff) Result Value Ref Range WBC 6.47 4.4 - 10.8 Hemoglobin 11.2 (EXTERNAL/ABN) 12.0 - 15.5 Hematocrit 32.4 (EXTERNAL/ABN) 36.0 - 46.0 Platelets 267 130 - 400 Neutr Abs (ANC) 3.48 1.2 - 6.7 Lymphocyte Abs 2.24 1.2 - 3.4 Lactate Dehydrogenase Result Value Ref Range LDH 260 (EXTERNAL/ABN) 81 - 234 RADIOLOGY STUDIES REVIEWED: I personally reviewed a outside chest and abdomen CT from March 2020 that showed postoperative changes and no new lesions, no hydronephrosis. ASSESSMENT: Marleni is a 59 y/o woman [...] resection. She was previously seen by a medical records analyst and we will contact them for a possible follow-up evaluation sooner. The patient is also closely monitored by her PCP. I reviewed the data on duration of adjuvant chemotherapy, the risks and benefits. I recommended that chemotherapy not be continued. The possible etiologies of her renal impairment were reviewed, likely platin related, with some contribution from there recent nausea and decreased appetite. I emphasized the need for increased oral intake of fluids. I reviewed the natural history of renal impairment related to ruby, where improvement may be slow over many months and sometimes is incomplete. If worsening in creatinine is noted, we will refer her to a multifocal lens assembler. I advised her on improving her nutritional intake of calories, protein and fluids. The patient agrees with this plan. RTC in [address] and labs at [facility] and phone visit, in order to reduce the risks for exposure to coronavirus. I advised her to call if she develops any fever,shortness of breath, new pain, weakness, bleeding or any other unusual medical symptoms. I provided care to the patient on lung cancer and its treatment today via telephone call, total time of call 29 minutes. documented in this encounter Plan of Treatment Not on file documented as of this encounter Visit Diagnoses Diagnosis Non-small cell lung cancer, right documented in this encounter Care Teams General Road Production Manager Relationship Specialty Start Date End Date Kathy Wright APRN PCP - General Family Medicine 04/22/19 documented as of this encounter
--- OUTSIDE RECORDS SUMMARY | 2024-06-24 01:09 | XMS_ITS | Encounter Summary ---
[place] [address] Care Team Providers Care Stars Coordinator Name Role Phone GerardoKathy nicolas Butch DANIEL Primary Care Provider [phone] Reason for Visit * Reason Onset Date Comments Prior Authorization 06/14/2020 Encounter Details Date Type Department Care Team (Late st Contact Info) Description 06/14/2020 Telephone Hematology [place] [address] Merced Bailey Prior Authorization Social History Tobacco Use Types Packs/Day Years [...] encounter Miscellaneous Notes * Telephone Encounter - Merced Kenny - 06/19/2020 1:01 PM EDT 06/19/20: 1:01pm: CT chest approved. Service order # [id number] Authorization # [id number] Valid: 06/14/20-12/11/20 * Telephone Encounter - Merced Kenny - 06/19/2020 12:01 PM EDT 06/19/20: 12:00pm: Authorization still in physician review process. Food Service Hotel Runner made aware. * Telephone Encounter - Merced Kenny - 06/14/2020 1:46 PM EDT PA request for CT chest w/o contrast ([id number]) submitted with clinical notes to [facility] via [facility]. Case is in clinical review. Service order ID #: [id number] documented in this encounter Plan of Treatment Not on file documented as of this encounter Visit Diagnoses Not on filedocumented in this encounter Care Teams Stars Coordinator Relationship Specialty Start Date End Date Kathy Wright APRN PCP - General Family Medicine 04/22/19 documented as of this encounter
--- OUTSIDE RECORDS SUMMARY | 2024-06-24 01:09 | XMS_ITS | Encounter Summary ---
[place] [address] Care Team Providers Care Collaborative Physician Name Role Phone Kathy Wright MARÍA Primary Care Provider [phone] Encounter Details Date Type Department Care Team (Late st Contact Info) Description 04/03/2020 Telephone Hematology [place] [id number] Radha Bynum RN Social History Tobacco Use [...] Telephone Encounter - Radha Bynum RN - 04/03/2020 8:31 AM EDT Follow-up: child nutrition assistant to follow up with BMP and Mag levels from [facility] on 03/31 and call patient with results. Message received from medical assistant secretary: Patient calling to report she did not make it to ct at [facility] today nor blood draw, also home health tried drawing her Friday and could not get blood, states pcp supposed to home visit this evening and she is supposed to have tov with dragnev tomorrow. Call placed to Marleni to discuss. Marleni states the [facility] was unable to draw her labs on Friday. She has an appointment today at [facility] for labs and CT scan and she is not able to go as she doesn't have a ride. She is able to get a ride on if she is able to get this done at that time. Plan: Discussed above with Dr. West who states: scan/labs and Friday call will be fine. Call placed back to Marleni to discuss. Reviewed above plan with Marleni and she verbalized understanding. Encouraged her to call back should she have further questions or concerns. Clinical medical assistant secretary to schedule labs and CT at [facility] for 04/06 in preporation for phone visit on 04/[address] West. documented in this encounter Plan of Treatment Not on file documented as of this encounter Visit Diagnoses Not on filedocumented in this encounter Care Teams Collaborative Physician Relationship Specialty Start Date End Date Kathy Wright APRN PCP - General Family Medicine 04/22/19 documented as of this encounter
--- OUTSIDE RECORDS SUMMARY | 2024-06-24 01:09 | XMS_ITS | Encounter Summary ---
[place] [address] Care Team Providers Care Multiple Effect Evaporator Operator Name Role Phone Kathy Wright MARÍA Primary Care Provider [phone] Encounter Details Date Type Department Care Team (Late st Contact Info) Description 03/31/2020 Telephone Hematology [place] [address] Radha Bynum, RN Social History Tobacco Use Types [...] Telephone Encounter - Radha Bynum RN - 03/31/2020 8:22 AM EDT Follow-up: vocational rehab consultant to follow up with BMP and Mag levels from [facility] on 03/31 and call patient with results. Patient needs potassium refilled and sent to [facility] in [facility]. Call placed to Marleni to discuss lab need. She is unable to go today and will go on Tuesday 04/03. vocational rehab consultant to follow-up with lab results on 04/03 and discuss need of potassium refill at that time. documented in this encounter Plan of Treatment Not on file documented as of this encounter Visit Diagnoses Not on filedocumented in this encounter Care Teams Multiple Effect Evaporator Operator Relationship Specialty Start Date End Date Kathy Wright APRN PCP - General Family Medicine 04/22/19 documented as of this encounter
--- OUTSIDE RECORDS SUMMARY | 2024-06-24 01:09 | XMS_ITS | Encounter Summary ---
Author Organization [facility] [place] [address] Care Team Providers Care Hosting Engineer Name Role Phone Kathy Wright ANNUAL GIVING DIRECTOR Primary Care Provider [phone] Encounter Details Date Type Department Care Team (Late st Contact Info) Description 03/17/2020 Telephone Hematology [place] [address] Radha Bynum, RN Social History Tobacco Use [...] Telephone Encounter - Radha Bynum RN - 03/17/2020 8:45 AM EDT Follow-up: can you discuss with Toño? We were watching BUN/Creat & Mag Lab results discussed with Dr. West who states: These look stable. Let's repeat in 2 weeks locally. BMP and mag order placed. Call placed back to Marleni to discuss. Lab results reviewed with Marleni and she verbalized understanding. She would like to get her repeat labs on 5/1 at [facility]. Encouraged her to call back should she have further questions or concerns. day habilitation specialist to follow up with BMP and Mag levels from [facility] on 03/31 and call patient with results. documented in this encounter Plan of Treatment Not on file documented as of this encounter Visit Diagnoses Diagnosis Non-small cell lung cancer, right documented in this encounter Care Teams Hosting Engineer Relationship Specialty Start Date End Date Kathy Wright, ANNUAL GIVING DIRECTOR PCP - General Family Medicine 04/22/19 documented as of this encounter
--- OUTSIDE RECORDS SUMMARY | 2024-06-24 01:09 | XMS_ITS | Encounter Summary ---
[place] [address] Care Team Providers Care Air And Hydronic Balancing Technician Name Role Phone Kathy Wright MARÍA Primary Care Provider [phone] Encounter Details Date Type Department Care Team (Late st Contact Info) Description 02/01/2020 Notes Only [place] [address] Christina Almonte Social History Tobacco Use Types [...] Progress Notes * Christina Almonte - 02/01/2020 1:33 PM EST Marleni is still not smoking. [...] on filedocumented in this encounter Care Teams Air And Hydronic Balancing Technician Relationship Specialty Start Date End Date Kathy Wright APRN PCP - General Family Medicine 04/22/19 documented as of this encounter
--- OUTSIDE RECORDS SUMMARY | 2024-06-24 01:09 | XMS_ITS | Encounter Summary ---
Author Organization [facility] Address [facility] [place] [address] Care Team Providers Care Helmet Hat Brim Cutter Name Role Phone GerardoKathy nicolas Butch DANIEL Primary Care Provider [phone] Reason for Visit * Reason Comments Dehydration IV hydration * Treatment/Therapy Plan Authorization (Routine) - Closed Specialty Diagnoses / Procedures Referred By Janie cassidy Referred To Contact Hematology and Oncology Diagnoses Non-small cell lung cancer, right Procedures TC PALONOSETRON HCL, 25MCG, INJECTION (ALOXI) TC APREPITANT, 1 MG, INJECTION TC PEMETREXED, 10MG, INJECTION (ALIMTA) TC CARBOPLATIN, 50MG, INJECTION (PARAPLATIN) Toño West MD [facility] [place] [address] [facility] [address] [place] [address] Referral ID Status Reason Start Date Expiration Date Visits Re quested Visits Authorized [id number] Closed 12/28/2019 12/27/2020 12 12 Encounter Details Date Type Department Care Team (Latest Contact Info) Description 02/01/2020 11:35 AM EST Hospital Encounter Hematology [place] [address] Non-small cell lung cancer, right Discharge Disposition: [...] Sig Dispensed Refills Start Date End Date acetaminophen (TYLENOL) 500 mg Tablet Take 2 [...] by mouth daily. 4 tablet 01/13/2020 01/21/2023 magnesium oxide (MAG-OX) 400 mg (241.3 mg magnesium) Tablet Take 1 tablet by mouth daily. 30 tablet 1 11/25/2019 03/06/2020 diphenhydrAMINE/aluminu m-magnesium hydroxide with simethicone/lidocaine (BMX) (6.67 [...] for Nausea. 20 tablet 3 11/12/2019 01/21/2023 gabapentin (NEURONTIN) 100 mg Capsule Take 1 capsule by mouth 3 times daily as needed. 60 capsule 11/09/2019 11/08/2020 enalapril-hydrochloroth iazide (VASERETIC) 10-25 mg Tablet 1 tablet daily. 5 03/20/2019 3 buPROPion (WELLBUTRIN) 100 mg Tablet 1 tablet daily. 04/19/2019 01/21/2023 cholecalciferol, Vitamin D3, 1,000 unit Tablet 1,000 Units daily. 04/05/2019 3 cloNIDine (CATAPRES) 0.1 mg Tablet 1 tablet daily. 3 02/13/2019 01/21/2023 Ranitidine HCl (ZANTAC) 300 mg Capsule 1 capsule nightly. 5 04/27/2019 023 documented as of this encounter Progress Notes * Bennie Vail, VENU - 02/01/2020 6:44 PM EST Patient Name: Marleni Arreola Patient Age: 59 y.o. Birthdate: 1960 Admit date: 02/01/2020 Attending Physician: No att. providers found TIME TREATMENT STARTED: 1430 TIME TREATMENT ENDED: 1645 Marelni Arreola, 59 y.o. female with diagnosis of 1. Non-small cell lung cancer, right is here for an infusion of Hydration PROTOCOL: NA CYCLE: NA WEEK: NA DAY: NA S: Pt. offers no complaints at this time. Patient discharged to home O: Patient's medication orders independently verified for correct drug name, route and dosage per patient's height, weight and BSA by Bennie Vail RN and Pharmacist. REACTIONS (DESCRIPTION, TIME, INTERVENTION AND EFFECTIVENESS) None noted. A: Pt. Tolerated treatment well. Marleni M Maxwell confirms that all questions and issues have been addressed. P: Return to clinic per routine. documented in this encounter Plan of Treatment Not on file documented as of this encounter Results * (ABNORMAL) Lactate Dehydrogenase (02/01/2020 11:42 AM EST) LDH 347(H) 110 - 220 unit/L [facility] Blood specimen (specimen) 02/01/2020 11:42 AM EST 02/01/2020 11:52 AM EST Narrative Resulting Agency Comment Spec In Lab Toño West MD CHEMISTRY ORDERA BLES [facility] [place] [address] * (ABNORMAL) Comprehensive metabolic panel (non-fasting) (02/01/2020 11:42 AM EST) Glucose Lvl 95 65 - 199 mg/dL [facility] Comment:Diabetes: >=200 mg/d L plus symptoms BUN 18 8 - 18 mg/dL [facility] Creatinine 2.46(H) 0.70 - 1.20 mg/dL [facility] Sodium 141 135 - 145 mmol/L [facility] Potassium 4.3 3.5 - 5.0 mmol/L [facility] Comment: Please note: ??Patients with WBC >100,000 may have falsely elevated Potassium levels. ??For accurate Potassium quantification in these patients send serum separator tube (gold top) for subsequent determinations. ??Contact the Clinical Chemistry Laboratory if there are any questions. Chloride 105 98 - 107 mmol/L [facility] CO2 23 22 - 31 mmol/L [facility] Anion Gap 13 5 - 15 mmol/L [facility] Calcium 9.2 8.5 - 10.5 mg/dL [facility] Total Protein 7.0 6.1 - 8.0 gm/dL [facility] Albumin 4.1 3.2 - 5.2 gm/dL [facility] AST 30 0 - 30 unit/L [facility] ALT 36(H) 0 - 30 unit/L [facility] Alk Phos 93 35 - 105 unit/L [facility] Total Bilirubin 0.2 0.2 - 1.3 mg/dL [facility] Comment:result rechecked-rigoberto Estimated GFR 21(L) >=60 mL/min/1. 73 m?? [facility] Comment: The eGFR was calculated using the CKD-EPI equation. As with all creatinine based estimates of kidney function, eGFR values calculated with the CKD-EPI equation are not accurate in patients with acute kidney failure, extremes of body mass or the acutely ill. http://[employer]/[facility] [place] eGFR 24(L) >=60 mL/min/1. 73 m?? [facility] Comment: The eGFR was calculated using the CKD-EPI equation. As with all creatinine based estimates of kidney function, eGFR values calculated with the CKD-EPI equation are not accurate in patients with acute kidney failure, extremes of body mass or the acutely ill. http://[employer]/[facility] [place] Blood specimen (specimen) 02/01/2020 11:42 AM EST 02/01/2020 11:52 AM EST Narrative Resulting Agency Comment Spec In Lab Toño West MD CHEMISTRY ORDERA BLES [facility] [place] [address] documented in this encounter Visit Diagnoses Diagnosis Non-small cell lung cancer, right documented in this encounter Administered Medications Inactive Administered Medications - up to 3 most recent administrations Medication Order MAR Action Action Date Dose Rate Site sodium chloride 0.9% infusion 500 mL/hr, Intravenous, CONTINUOUS, Starting on Fri02/01/20 at 1500, Until Fri02/02/20 at 0434, 1000 mL only. New Bag 02/01/2020 2:45 PM EST 500 mL/hr 500 mL/hr documented in this encounter Care Teams Helmet Hat Brim Cutter Relationship Specialty Start Date End Date Kathy Wright, MARÍA PCP - General Family Medicine 04/22/19 documented as of this encounter
--- OUTSIDE RECORDS SUMMARY | 2024-06-24 01:09 | XMS_ITS | Encounter Summary ---
[place] [address] Care Team Providers Care Wire Walker Name Role Phone Kathy Wright MARÍA Primary Care Provider [phone] Encounter Details Date Type Department Care Team (Late Contact Info) Description 02/07/2020 Telephone Hematology [place] [address] Radha Bynum RN Social History Tobacco Use [...] Telephone Encounter - Radha Bynum RN - 02/07/2020 8:22 AM EDT Follow-up: 02/06 BMP at [facility], remind me to review the results. Per clinical assistant corporate secretary: JOSE MARTIN : Marleni didn't go to [facility] today. Call placed to Marleni to discuss. Marleni said she is planning to go to her PCP's office today andwill have her labs drawn then. Reviewed with Marleni we will call her with these results as soon aswe have them back. She verbalized understanding. cryptographic clerk to follow-up on BMP results tomorrow on 02/08 and call patient with results. documented in this encounter Plan of Treatment Not on file documented as of this encounter Visit Diagnoses Not on filedocumented in this encounter Care Teams Wire Walker Relationship Specialty Start Date End Date Kathy Wright APRN PCP - General Family Medicine 04/22/19 documented as of this encounter
--- OUTSIDE RECORDS SUMMARY | 2024-06-24 01:09 | XMS_ITS | Encounter Summary ---
[place] [address] Care Team Providers Care Retail Analyst Name Role Phone Kathy Wright APRN Primary Care Provider [phone] Encounter Details Date Type Department Care Team (Late st Contact Info) Description 02/23/2020 Telephone [place] [phone] Rox Hugo Social History Tobacco Use Types [...] on filedocumented in this encounter Care Teams Retail Analyst Relationship Specialty Start Date End Date Kathy Wright APRN PCP - General Family Medicine 04/22/19 documented as of this encounter
--- OUTSIDE RECORDS SUMMARY | 2024-06-24 01:09 | XMS_ITS | Encounter Summary ---
[place] [address] Care Team Providers Care Outside Sales Professional Name Role Phone Kathy Wright Butch DANIEL Primary Care Provider [phone] Encounter Details Date Type Department Care Team (Late st Contact Info) Description 05/04/2020 Telephone [place]ology [place] [address] Jane Calles RN Social History Tobacco Use [...] Telephone Encounter - Jane Calles RN - 05/06/2020 10:31 AM EDT RESEARCH NURSE TELEPHONE NOTE ?? [id number],Adjuvant Lung Cancer Enrichment Marker Identification and Sequencing Trial ?? Date: 05/04/20 ?? Time: 3:59 PM ?? Reason for call: incomplete informed consent, need consent completion ?? (home) ?? I left Marleni a message that I need her to sign consent for [employer], that tissue cannot be sent out before I obtain her signature. Awaiting callback ?? * Telephone Encounter - Jane Calles RN - 05/04/2020 12:14 PM EDT RESEARCH NURSE TELEPHONE NOTE ?? [id number],Adjuvant Lung Cancer Enrichment Marker Identification and Sequencing Trial ?? Date: 05/04/20 ?? Time: 3:59 PM ?? Study Day: prescreening ?? Reason for call: incomplete informed consent ?? (home) ?? I left Marleni a message and explained that the she missed checking off yes or no to the Optional Banking Study, where her leftover tissue or blood sample would be stored for future use for research at the [facility], and explained she would not have any say or knowledge of what that future research is. Iread the text box directly to her. She verbalized yes she agrees to have any unused samples stored for future date. ?? We will update her consent form with her at her next visit. ?? I thanked her for her time. ? documented in this encounter Plan of Treatment Not on file documented as of this encounter Visit Diagnoses Not on filedocumented in this encounter Care Teams Outside Sales Professional Relationship Specialty Start Date End Date Kathy Wright APRN PCP - General Family Medicine 04/22/19 documented as of this encounter
--- OUTSIDE RECORDS SUMMARY | 2024-06-24 01:09 | XMS_ITS | Encounter Summary ---
[place] [address] Care Team Providers Care Curriculum Manager Name Role Phone Kathy Wright PIPELINE CONTROLLER Primary Care Provider [phone] Encounter Details Date Type Department Care Team (Late st Contact Info) Description 05/08/2020 Telephone Hematology [place] [id number] Radha Bynum RN Social History Tobacco Use [...] Telephone Encounter - Radha Bynum RN - 05/08/2020 8:40 AM EDT Request from provider- Dr. West: Marleni needs to have a BMP drawn while in [place]. Even thoughwe have tried all last week to reach her, Let's document these attempts and try again next week. Call placed to Marleni to discuss. Voice message left. Call placed to Blaze (son) at [phone]. Multiple calls were placed with no calls back. Call placed back to Marleni to discuss. Marleni states now is not a good time to talk however I reviewed with Marleni we have been trying to reach her for a week and we just need to know where she would like to get labs while in [place]. Marleni states she will look for a place to get them drawn and call back with a date/pace she can get this done. 05/09 - call placed by to Marleni to see if she has decided where she wants to get her labs drawn while in [place]. Left a message. No call back by end of clinic day. 05/10- Call placed back to Marleni to coordinate lab draw. Marleni states she would like to get her labs drawn at [facility] located in [place], [place]. She will call them today to make an appointment and will call me back with her appointment date. Reviewed we would fax orders to them and call her back with results. She verbalized understanding. Discussed lab need with clinical tabulating clerk who states their are [facility] in [place], [place] and we need to know which location she would like to go to. 05/12- Call placed to Marleni to see if she had decided on lab date and which [facility] location she would like to go to. Left a message. No call back by end of clinic day. certified personal trainer to follow-up on 05/15. 05/15- Call placed to Marleni to discuss. Marleni states she would like to change the place she is getting labs and would now like to go to [facility]. She called their toget their fax number on where we should send orders. They gave her two fax numbers and they state we can fax orders to either number. Fax number [phone] OR [phone]. Marleni plans to go Saturday 05/19. Reviewed we would call her and leave a message with the results. She verbalized understanding. Clinical tabulating clerk to fax CMP order to [facility]. certified personal trainer to follow-up on lab results on 05/19. documented in this encounter Plan of Treatment Not on file documented as of this encounter Visit Diagnoses Diagnosis Non-small cell lung cancer, right documented in this encounter Care Teams Curriculum Manager Relationship Specialty Start Date End Date Kathy Wright APRN PCP - General Family Medicine 04/22/19 documented as of this encounter
--- OUTSIDE RECORDS SUMMARY | 2024-06-24 01:09 | XMS_ITS | Encounter Summary ---
Author Organization [facility] [place] [address] Care Team Providers Care Pattern Layout Worker Name Role Phone GerardoKathy nicolas Butch DANIEL Primary Care Provider [phone] Encounter Details Date Type Department Care Team (Late st Contact Info) Description 03/09/2020 Orders Only [place]ematology [place] [address] Adrienne Mendez HORSE RIDER [facility] HEMATOLOGY[place] [address] Non-small cell lung cancer, right Social History [...] as of this encounter Results * (ABNORMAL) Magnesium (04/06/2020 1:25 PM EDT) Magnesium 1.6(EXTERNA L/ABN) 1.8 - 2.4 mg/dL EXTERNAL LAB Blood specimen (specimen) 04/06/2020 1:25 PM EDT Adrienne Mendez HORSE RIDER CHEMISTRY ORDERABL ES Performing Organization Address [facility] Co de Phone Number EXTERNAL LAB * (ABNORMAL) Lactate Dehydrogenase (04/06/2020 1:25 PM EDT) Pathologist [facility] LDH 260(EXTERNA L/ABN) 81 - 234 EXTERNAL LAB Blood specimen (specimen) 04/06/2020 1:25 PM EDT Adrienne Mendez HORSE RIDER CHEMISTRY ORDERABL ES Performing Organization Address [facility] Co de Phone Number EXTERNAL LAB * (ABNORMAL) Comprehensive metabolic panel (non-fasting) (04/06/2020 1:25 PM EDT) Pathologist [facility] Glucose Lvl 95 74 - 106 EXTERNAL [...] (specimen) 04/06/2020 1:25 PM EDT Adrienne Mendez HORSE RIDER CHEMISTRY ORDERABL ES Performing Organization Address [facility]/ZIP Co de Phone Number EXTERNAL LAB * (ABNORMAL) CBC (with Diff) (04/06/2020 1:25 PM EDT) Pathologist [facility] WBC 6.47 4.4 - 10.8 EXTERNAL LAB Hemoglobin 11.2(EXTER NAL/ABN) 12.0 - 15.5 EXTERNAL LAB Hematocrit 32.4(EXTER NAL/ABN) 36.0 - 46.0 EXTERNAL LAB Platelets 267 130 - 400 EXTERNAL LAB Neutr Abs (ANC) 3.48 1.2 - 6.7 EXTERNAL LAB Lymphocyte Abs 2.24 1.2 - 3.4 EXTERNAL LAB Blood specimen (specimen) 04/06/2020 1:25 PM EDT Adrienne Mendez HORSE RIDER HEMATOLOGY ORDERAB LES EXTERNAL LAB documented in this encounter Visit Diagnoses Diagnosis Non-small cell lung cancer, right documented in this encounter Care Teams Pattern Layout Worker Relationship Specialty Start Date End Date Kathy Wright, HORSE RIDER PCP - General Family Medicine 04/22/19 documented as of this encounter
--- OUTSIDE RECORDS SUMMARY | 2024-06-24 01:09 | XMS_ITS | Encounter Summary ---
[place] [address] Care Team Providers Care Discharge Planner Name Role Phone Kathy Wright REPROGRAPHICS TECHNICIAN Primary Care Provider [phone] Encounter Details Date Type Department Care Team (Late st Contact Info) Description 05/26/2020 Telephone [place]ology [place] [address] Radha Bynum RN Social History Tobacco Use [...] Telephone Encounter - Radha Bynum RN - 05/26/2020 3:47 PM EDT Message received from poultryman: Please call with lab results from 05/19 Call placed to Marleni to discuss. Left a message with lab results per the patients request. Encouraged her to call back should she have further questions or concerns. documented in this encounter Plan of Treatment Not on file documented as of this encounter Visit Diagnoses Not on filedocumented in this encounter Care Teams Discharge Planner Relationship Specialty Start Date End Date Kathy Wrgiht APRN PCP - General Family Medicine 04/22/19 documented as of this encounter
--- OUTSIDE RECORDS SUMMARY | 2024-06-24 01:09 | XMS_ITS | Encounter Summary ---
Author Organization [facility] Address [facility] [place] [address] Care Team Providers Care Film Or Tape Librarian Name Role Phone GerardoKathy nicolas Butch DANIEL Primary Care Provider [phone] Reason for Visit * Reason Comments Follow-up Lung Cancer Encounter Details Date Type Department Care Team (Late st Contact Info) Description 02/01/2020 1:15 PM EST Office Visit Hematology [place] [address] Toño West MD [facility] [place] [address] Adrienne Mendez APRN [facility] [address] HEMATOLOGY-[place] [address] Non-small cell lung cancer, right Social History [...] Sign Reading Time Taken Comments Blood Pressure 164/84 02/01/2020 1:42 PM EST Pulse 87 02/01/2020 1:42 PM EST Temperature 36.4 ??C (97.5 ??F) 02/01/2020 1:42 PM ES T Respiratory Rate 17 02/01/2020 1:42 PM EST Oxygen Saturation 99% 02/01/2020 1:42 PM EST Inhaled Oxygen Concentration - - Weight 66.8 kg (147 lb 3.2 oz) 02/01/2020 1:42 P M EST Height 158 cm (5' 2.21) 02/01/2020 1:42 PM EST Body Mass Index 26.75 02/01/2020 1:42 PM EST documented in this encounter Progress Notes * Toño West MD - 02/01/2020 1:15 PM EST Images from the original note [...] RLL.??A dedicated??CT Chest was performed??07/02/18??which demonstrated stable sgec-md-flqw nodules in the RLL, largest measuring 9 [...] was given with carboplatin instead of cisplatin. INTERVAL HISTORY: The last cycle was not tolerated well, she had significant nausea and fatigue. Was evaluated locally, received hydration. Appetite decreased, no emesis. She is slowly beginning to improve. Stable to slightly increased dyspnea on exertion. No breathlessness at rest. Inhalers help her breathing. Occasional cough without hemoptysis. Slightly fewer headaches. Bowel movements are regular, no bleeding, no dysuria. The patient denies any fevers. No numbness, no tingling. Intermittent dizziness/lightheadedness. ROS See HPI. ROS otherwise unremarkable. PMHX: [...] 2.78) performed by Juan Ny MD at [facility] OR ? ? PRO INJECTION ANES AGENT &/ STEROID INTERCOSTAL NERVE EA ADDL LEVEL Right 10/06/2019 NERVE BLOCK, INTERCOSTAL NERVE, MULTIPLE (WRVU 1.68) performed by Juan Ny MD at [facility] MA[facility] OR ??? PRO THORACOSCOPY SURG LOBECTOMY Right 10/06/2019 @ROBOT XI THORACOSCOPY,SURGICAL,W\LOBECTOMY,TOTAL OR SEGMENTAL (WRVU 24.64) performed by Juan Ny MD at [facility] OR ??? PRO THORACOSCOPY WITH MEDIASTINAL AND REGIONAL LYMPHADENECTOMY Right 10/06/2019 @ROBOT XI THORACOSCOPY,SURG; W/MEDIASTINAL& REGIONAL LYMPHADENECTOMY (WRVU 4.12) performed by Juan Ny MD at [facility] MA[facility] OR ??? PRO THORACOSCOPY WITH WEDGE RESECTION AND ANATOMIC LUNG RESECTN Right 10/06/2019 @ROBOT XI THORACOSCOPY,SURG; W/DX WEDGE RESC W/ANATOMIC LUNG RESC (WRVU 3) performed by Juan Ny MD at [facility] OR MEDS: Current Outpatient Medications on File Prior to Visit Medication Sig Dispense Refill ??? potassium chloride ER (K-Dur/Klor-Con) 10 mEq Tablet Sustained Release Take 4 tablets by mouth daily. 120 tablet 0 ??? dexamethasone (Decadron) 4 mg Tablet Take 1 tablet by mouth daily. 4 tablet 0 ??? magnesium oxide (MAG-OX) 400 mg (241.3 mg magnesium) Tablet Take 1 tablet by mouth daily. 30 tablet 1 ??? diphenhydrAMINE/aluminum-magnesium hydroxide with simethicone/lidocaine (BMX) (6.67 mg-0.83 mg-13.33 mg-1.33 mg/mL) oral liquid Take 5 mLs by mouth 4 times daily. 200 mL 1 ??? gabapentin (NEURONTIN) 100 mg Capsule Take 1 capsule by mouth 3 times daily as needed. 60 capsule 0 ??? senna (SENOKOT) 8.6 mg Tablet Take [...] (Patient taking differently: Take by mouth daily.) ??? benzonatate (TESSALON) 100 mg Capsule Take 1 capsule by mouth 3 times daily as needed for Cough. (Patient not taking: Reported on 12/15/2019) 30 tablet 0 ??? ondansetron (ZOFRAN) 4 mg Tablet Take 1 tablet by mouth every 8 hours as needed for Nausea. (Patient not taking: Reported on 12/15/2019) 20 tablet 3 ??? acetaminophen (TYLENOL) 500 mg Tablet Take 2 tablets by mouth every 6 hours. (Patient not taking: Reported on 12/15/2019) 120 tablet 1 ??? docusate sodium (COLACE) 100 mg Capsule Take 1 capsule by mouth 3 times daily. (Patient not taking: Reported on 10/21/2019) 90 capsule 1 No current facility-administered medications on file prior to visit. Allergies: Allergies Allergen Reactions ??? Cis Free Text Allergy COMBID. ??? Isopropamide ??? 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 Back revealed no tenderness to palpation or percussion. LABORATORY STUDIES Recent Results (from the past 72 hour(s)) Comprehensive metabolic panel (non-fasting) Result Value Ref Range Glucose Lvl 95 65 - 199 mg/dL BUN 18 8 - 18 mg/dL Creatinine 2.46 (H) 0.70 - 1.20 mg/dL Sodium 141 135 - 145 mmol/L Potassium 4.3 3.5 - 5.0 mmol/L Chloride 105 98 - 107 mmol/L CO2 23 22 - 31 mmol/L Anion Gap 13 5 - 15 mmol/L Calcium 9.2 8.5 - 10.5 mg/dL Total Protein 7.0 6.1 - 8.0 gm/dL Albumin 4.1 3.2 - 5.2 gm/dL AST 30 0 - 30 unit/L ALT 36 (H) 0 - 30 unit/L Alk Phos 93 35 - 105 unit/L Total Bilirubin 0.2 0.2 - 1.3 mg/dL eGFR 21 (L) >=60 mL/min/1.73 m?? eGFR 24 (L) >=60 mL/min/1.73 m?? Lactate Dehydrogenase Result Value Ref Range LDH 347 (H) 110 - 220 unit/L ABO/Rh Typing Result Value Ref Range ABORh Type A Pos Antibody screen Result Value Ref Range Ab Screen Interp Negative Expires at 2359 on: 02/04/2020 Hemogram Result Value Ref Range WBC 6.5 4.0 - 9.5 x10(3)/mcL RBC 2.82 (L) 4.00 - 5.21 x10(6)/mcL Hemoglobin 9.1 (L) 11.7 - 15.5 gm/dL Hematocrit 27.9 (L) 35.7 - 45.8 % MCV 98.9 (H) 82.6 - 94.4 fL MCH 32.3 (H) 27.1 - 32.0 pg MCHC 32.6 31.7 - 35.0 gm/dL Platelets 254 145 - 357 x10(3)/mcL RDWSD 62.3 (H) 37.0 - 46.0 fL RDWCV 18.1 (H) 11.5 - 14.1 % MPV 8.9 7.6 - 12.9 fL nRBC % Auto 0.0 % nRBC Abs Auto 0.000 0.000 - 0.000 x10(3)/mcL Differential, Automated Result Value Ref Range Neutrophils % 61.9 % Neutr Abs (ANC) 4.00 1.70 - 6.10 x10(3)/mcL Lymphocytes % 23.7 % Lymphocytes Abs 1.5 0.9 - 3.2 x10(3)/mcL Monocytes % 12.4 % Monocyte Abs 0.8 0.3 - 0.9 x10(3)/mcL Eosinophils % 0.3 % Eosinophils Abs 0.0 0.0 - 0.4 x10(3)/mcL Basophils % 0.9 % Basophils Abs 0.1 0.0 - 0.1 x10(3)/mcL Immature Gran % 0.80 % Wilma Gran Abs 0.05 (H) 0.00 - 0.04 x10(3)/mcL ABORH Recheck Status Result Value Ref Range ABORH Recheck Order Order Placed RADIOLOGY STUDIES REVIEWED: I personally reviewed a CXR from 12/15/19 showing no new lesions. ASSESSMENT: Marleni is a [...] more toxicities and her creatinine has worsened. No evidence for disease recurrence on last imaging. The start of cycle 4 was delayed. I counseled the patient about these results, their implications for her prognosis and we discussed treatment options. The patient understands that despite completing all therapy, she will be at significant risk for recurrence and regular surveillance will be recommended. Her increased dyspnea is likely related to COPD and is actively managed by her PCP. I reviewed the data on duration of adjuvant chemotherapy, the risks and benefits. I recommended that chemotherapy not be continued. The possible etiologies of her renal impairment were reviewed, likely platin related, with some contribution from there recent nausea and decreased appetite. I emphasized the need for increased oral intake of fluids. She will receive hydration today. If noimprovement in creatinine is noted by early next week, we will refer her to a employee development specialist. The patient agrees with this plan. RTC in 4 week with labs, clinic. I advised her to call if she develops any fever, shortness of breath, new pain, weakness, bleeding or any other unusual medical symptoms. documented in this encounter Plan of Treatment Not on file documented as of this encounter Visit Diagnoses Diagnosis Non-small cell lung cancer, right documented in this encounter Care Teams Film Or Tape Librarian Relationship Specialty Start Date End Date Kathy Wright APRN PCP - General Family Medicine 04/22/19 documented as of this encounter
--- OUTSIDE RECORDS SUMMARY | 2024-06-24 01:09 | XMS_ITS | Encounter Summary ---
Author Organization [facility] Address [facility] [place] [address] Care Team Providers Care Lighting Fixture Installer Name Role Phone GerardoKathy nicolas Butch DANIEL Primary Care Provider [phone] Reason for Visit * Reason Comments Medication Refill Encounter Details Date Type Department Care Team (Late st Contact Info) Description 03/03/2020 Refill [place]emat[place] [address] Adrienne Mendez APRN [facility] HEMATOLOGY-[place] [address] Social History Tobacco Use Types Packs/Day Years [...] Miscellaneous Notes * Telephone Encounter - Scarlett Castillo RN - 03/06/2020 8:07 AM EDT Refill request came in through [facility] for magnesium Oxide: 400 mg po daily. Review of chart suggests it is an appropriate refill. Order pended and routed to Adrienne Storms, TOW BOAT CAPTAIN for approval. documented in this encounter Plan of Treatment Not on file documented as of this encounter Visit Diagnoses Not on filedocumented in this encounter Care Teams Lighting Fixture Installer Relationship Specialty Start Date End Date Kathy Wright APRN PCP - General Family Medicine 04/22/19 documented as of this encounter
--- OUTSIDE RECORDS SUMMARY | 2024-06-24 01:09 | XMS_ITS | Encounter Summary ---
[place] [address] Care Team Providers Care Email Administrator Name Role Phone AdrianaKathy Butch DANIEL Primary Care Provider [phone] Encounter Details Date Type Department Care Team (Late st Contact Info) Description 02/09/2020 Telephone Hematology [place] [phone] Radha Bynum RN Social History Tobacco Use [...] Telephone Encounter - Radha Bynum RN - 02/09/2020 8:23 AM EDT Follow-up: test preparation tutor to follow-up on BMP results tomorrow on 02/08 and call patient with results. BMP being drawn at [facility] (her PCP's office). Lab results reviewed with Adrienne Mendez APRN and Dr. West who states he would like to repeat aBMP in 1 week locally. She should continue her synthroid at 100 mcg daily. Call placed to Marleni to discuss. Marleni states she is able to get her labs drawn in 1 week and she would like this drawn at her [facility]. She would like to get this done on 02/16 . Reviewed we would call her on 02/16 to go over results. Encouraged her to continue to push fluids. She verbalized understanding. Encouraged her to call back should she have further questions or concerns. BMP order placed. test preparation tutor to follow-up on BMP results on 02/16 and call patient with results. Clinical legal secretary to fax BMP order to [facility]. documented in this encounter Plan of Treatment Not on file documented as of this encounter Procedures Procedure Name Priority Date/Time Associated Diagnosis Comments BASIC METABOLIC PANEL (NON-FASTING) Routine 02/08/2020 documented in this encounter Results * (ABNORMAL) Basic Metabolic Panel (non-fasting) (02/08/2020) Glucose Lvl 125(MANUFACTURER'S SERVICE REPRESENTATIVE AL/ABN) 74 - 106 BUN 25(EXTERNA L/ABN) 7 - 18 Creatinine 1.37(EXTER NAL/ABN) 0.55 - 1.02 Sodium 140(Collar Separator al Lab) 136 - 145 Potassium 4.2(Collar Separator al Lab) 3.5 - 5.1 Chloride 103(Collar Separator al Lab) 98 - 107 CO2 28(Externa l Lab) 21 - 32 Calcium 9.0(Collar Separator al Lab) 8.5 - 10.1 TSH 8.06(EXTER NAL/ABN) 0.36 - 3.74 Free T4 0.93(Exter nal Lab) 0.76 - 1.46 Blood specimen (specimen) 02/08/2020 Historical Provider CHEMISTRY ORDERAB LES documented in this encounter Visit Diagnoses Diagnosis Non-small cell lung cancer, right documented in this encounter Care Teams Email Administrator Relationship Specialty Start Date End Date Kathy Wright APRN PCP - General Family Medicine 04/22/19 documented as of this encounter
--- OUTSIDE RECORDS SUMMARY | 2024-06-24 01:09 | XMS_ITS | Encounter Summary ---
Author Organization [facility] [place] [address] Care Team Providers Care Brace Maker Name Role Phone AdrianaKathy Butch DANIEL Primary Care Provider [phone] Encounter Details Date Type Department Care Team (Late st Contact Info) Description 05/01/2020 Telephone Hematology [place] [address] Radha Bynum RN Social History Tobacco Use [...] Telephone Encounter - Radha Bynum RN - 05/01/2020 8:25 AM EDT Per the clinical area secretary: She will get labs, ct locally 05/01 rtc or tov 05/02. Discussed above with Adrienne Mendez APRN who states: Looks like she was supposed to get labs locally at [facility] on 05/02. We have been following her kidney function so a BMP is fine. F/U isn't until Aug(4 mo from her last visit, which was March). sr risk management consultant to follow-up on BMP results tomorrow on 05/02 and will call patient with results. documented in this encounter Plan of Treatment Not on file documented as of this encounter Visit Diagnoses Not on filedocumented in this encounter Care Teams Brace Maker Relationship Specialty Start Date End Date Kathy Wright APRN PCP - General Family Medicine 04/22/19 documented as of this encounter
--- OUTSIDE RECORDS SUMMARY | 2024-06-24 01:09 | XMS_ITS | Encounter Summary ---
Author Organization Formerly [facility], [facility] Address [facility] [place] [address] Care Team Providers Care Patrol Agent Name Role Phone Kathy Wright BOG CUTTER Primary Care Provider [phone] Reason for Visit * Consultation (Routine) - Specialty Diagnoses / Procedures Referred By Janie cassidy Referred To Contact Pulmonology Diagnoses Chronic obstructive pulmonary disease, unspecified Malignant neoplasm of unspecified part of unspecified bronchus or lung FURTHER EVALUATION/MGT OF COPD. SHE JSUST FINISHED 3 CYCLES OF CHEMOTHERAPHY FOR RIGHT LOWER LOBE ADENOCARCINOMA AT . HER COURSE WAS COMPLICATED BY AN NAHUM- THE FOURTH DOSE OF CHEMO WAS NEVER ADMINISTERED. NON-SMOKER. SWITCHED HER TO BRIO ELLIPTA TO SEE IF SHE WOULD HAVE IMPROVED SYMPTOMS- SHE HAD BEENON MILD DOSE OF ADVAIR WHICH WAS NOT PROVIDING RELEIF. SHE IS QUITE DYSPNEIC WITH MOST EXERTION. HER LUNGS HAVE BEEN CLEAR OVERALL. Kathy Wright, BOG CUTTER [address] [place] [address] [facility] [address] [place] [id number] Referral ID Status Reason Start Date Expiration Date V isits Requested Visits Authorized [id number] Consult, Test & Treat Connection Center PCP Updated and/or Approved 02/11/2020 08/13/2020 6 6 Encounter Details Date Type Department Care Team (Latest Contact Info) Description 02/28/2020 9:00 AM EDT TH Visit (TeleHealth) Pulmonology at [facility] [place] [address] Timo Garcia MD [facility] [address] PULMONARY MEDICINE [place] [id number] Chronic obstructive pulmonary disease, unspecified COPD type; Non-small cell lung cancer, right Social History [...] Progress Notes * Timo Garcia MD - 02/28/2020 9:00 AM EDT Images from the original note were not included. ? DEPARTMENT ??OF MEDICINE ?SECTION OF PULMONARY AND CRITICAL CARE??MEDICINE Pulmonary and Critical Care Medicine Formerly [facility] [place] [address] Telephone follow-up visit Follow-up 59 y.o. female with stage IIIa NSCLC after being found to have an FDG- avid pulmonary nodule. 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 She started adjuvant chemotherapy with cisplatin/pemetrexed in October 2019. She received Cycle 2 on 12/07/2019, complicated by NAHUM. She has a hx ofCOPD, recently started on Anoro, and using albuterol rescue. Still limited in terms of her exertional capacity since her surgery and chemo. PAST MEDICAL HISTORY Patient Active Problem List Diagnosis Code ??? Closed compression fracture of body of L1 vertebra S32.010A ??? Lung nodule R91.1 ??? Dizziness R42 ??? COPD (chronic obstructive pulmonary disease) J44.9 ??? Mixed anxiety and depressive disorder F41.8 ??? Non-small cell lung cancer, right C34.91 MEDICATIONS: Current Outpatient Medications Medication Sig Dispense Refill ??? potassium chloride [...] 500 mL/hr Intravenous Continuous Toño West MD ALLERGIES: Cis free text allergy; Isopropamide; and Prochlorperazine I have personally reviewed the PFTs from 08/19, and my interpretation is as follows: FVC 77% predicted, FEV1 of 74% of predicted, FEV1/FVC of 75%. Diffusing capacity of 61% of predicted. The studies suggest mild restrictive disease. IMPRESSION: In summary, this is a 59 y.o. female with a clinical history suggestive of chronic airflow obstruction with bronchitis, status post segmentectomy for bronchogenic adenocarcinoma. She remains slightly debilitated since her surgery, probably in part as a result of the chemotherapy she has received, as part of her adjuvant regimen, and which has subjected her to acute renal insufficiency(improved), and apparent anemia (from which she has yet to improve). Her airflow does not appear frantz problematic at present, at least by history, though follow-up pulmonary function studies (when circumstances are appropriate) would be helpful. I discussed with her at considerable length issues related to her debilitation, postoperative and chemotherapeutic, and the likely timeline of generalized improvement of her exertional capacity. I suggested that she continue to try to increase her activity, weather permitting, with walking, and I suggested that we tentatively schedule a follow-up for3 months with PFTs. Telephone visit: 25 minutes; record review and documentation: 11 minutes. documented in this encounter Plan of Treatment Not on file documented as of this encounter Visit Diagnoses Diagnosis Chronic obstructive pulmonary disease, unspecified COPD type Non-small cell lung cancer, right documented in this encounter Care Teams Patrol Agent Relationship Specialty Start Date End Date Kathy Wright, BOG CUTTER PCP - General Family Medicine 04/22/19 documented as of this encounter
--- OUTSIDE RECORDS SUMMARY | 2024-06-24 01:09 | XMS_ITS | Encounter Summary ---
Author Organization [facility] [address] Care Team Providers Care Fire Patroller Name Role Phone Kathy Wright APRN Primary Care Provider [phone] Encounter Details Date Type Department Care Team (Late st Contact Info) Description 03/16/2020 Telephone Hematology [place] [address] Scarlett Castillo, RN Social History Tobacco Use [...] Telephone Encounter - Scarlett Castillo, RN - 03/16/2020 12:07 PM EDT Error documented in this encounter Plan of Treatment Not on file documented as of this encounter Visit Diagnoses Not on filedocumented in this encounter Care Teams Fire Patroller Relationship Specialty Start Date End Date Kathy Wright APRN PCP - General Family Medicine 04/22/19 documented as of this encounter
--- OUTSIDE RECORDS SUMMARY | 2024-06-24 01:09 | XMS_ITS | Encounter Summary ---
Author Organization [facility] [place] [address] Care Team Providers Care Information Technology Assistant Name Role Phone GerardoKathy nicolas Butch DANIEL Primary Care Provider Encounter Details Date Type Department Care Team (Latest Contact Info) Description 02/01/2020 11:35 AM [facility] Hospital Encounter [place]ematology [place] [address] Non-small cell lung cancer, right Discharge Disposition: [...] mg Tablet 1 tablet daily. 5 03/20/2019 buPROPion (WELLBUTRIN) 100 mg Tablet 1 tablet [...] Procedure Name Priority Date/Time Associated Diagnosis Comments ABORH RECHECK STATUS STAT 02/01/2020 11:42 AM EST HEMOGRAM STAT 02/01/2020 11:42 AM EST Non-small cell lung cancer, right DIFFERENTIAL, AUTOMATED STAT 02/01/2020 11:42 AM EST Non-small cell lung cancer, right ABO/RH TYPING STAT 02/01/2020 11:42 AM EST Non-small cell lung cancer, right HC CBC,PLT & AUTO DIFF STAT 0 11:42 AM EST Non-small cell lung cancer, right ANTIBODY SCREEN STAT 02/01/2020 11:42 AM EST Non-small cell lung cancer, right HC VENIPUNCTURE STAT 02/01/2020 11:42 AM EST Non-small cell lung cancer, right HC LACTIC DEHYDROGENASE STAT 02/01/2020 11:42 AM EST Non-small cell lung cancer, right COMPREHENSIVE METABOLIC PANEL (NON-FASTING) STAT 02/01/2020 11:42 AM EST Non-small cell lung cancer, right documented in this encounter Results * ABORH Recheck Status (02/01/2020 11:42 AM EST) ABORH Recheck Order Order Placed [facility] ABORH Type Recheck Not Performed [facility] Blood specimen (specimen) 02/01/2020 11:42 AM EST 02/01/2020 11:58 AM EST Narrative Resulting Agency Comment Spec In Lab Toño West MD BLOOD BANK LAB O RDERABLES [facility] [place] [address] * (ABNORMAL) Differential, Automated (02/01/2020 11:42 AM EST) Neutrophils % 61.9 % [facility] Neutr Abs (ANC) 4.00 1.70 - 6.10 x10(3)/[facility] Lymphocytes % 23.7 % [facility] Lymphocytes Abs 1.5 0.9 - 3.2 x10(3)/[facility] Monocytes % 12.4 % [facility] Monocyte Abs 0.8 0.3 - 0.9 x10(3)/[facility] Eosinophils % 0.3 % [facility] Eosinophils Abs 0.0 0.0 - 0.4 x10(3)/[facility] Basophils % 0.9 % [facility] Basophils Abs 0.1 0.0 - 0.1 x10(3)/[facility] Immature Gran % 0.80 % [facility] Comment: Immature granulocytes(IG's)percentage and absolute count will include metamyelocytes, myelocytes, and promyelocytes. Blood smears from CBCs yielding IG's will be scanned manually for concordance. If this scan disagrees with the automated IG or if promyelocytes are noted, a manual differential will be performed. Wilma Gran Abs 0.05(H) 0.00 - 0.04 x10(3)/[facility] Blood specimen (specimen) 02/01/2020 11:42 AM EST 02/01/2020 11:52 AM EST Narrative Resulting Agency Comment Spec In Lab Toño West MD HEMATOLOGY ORDER KATHY Performing Organization Address City/[facility]/ZIP Co de Phone Number [facility] [place] [address] * (ABNORMAL) Hemogram (02/01/2020 11:42 AM EST) WBC 6.5 4.0 - 9.5 x10(3)/[facility] RBC 2.82(L) 4.00 - 5.21 x10(6)/[facility] Hemoglobin 9.1(L) 11.7 - 15.5 gm/dL [facility] Hematocrit 27.9(L) 35.7 - 45.8 % [facility] MCV 98.9(H) 82.6 - 94.4 fL [facility] Comment: This result has been called to NOT CALLED by Melissa Kumar on 02 01 2020 at 1223, and has not been read back. MCH 32.3(H) 27.1 - 32.0 pg [facility] MCHC 32.6 31.7 - 35.0 gm/dL [facility] Platelets 254 145 - 357 x10(3)/[facility] RDWSD 62.3(H) 37.0 - 46.0 fL [facility] RDWCV 18.1(H) 11.5 - 14.1 % [facility] MPV 8.9 7.6 - 12.9 fL [facility] nRBC % Auto 0.0 % [facility] nRBC Abs Auto 0.000 0.000 - 0.000 x10(3)/[facility] LABORATORY Blood specimen (specimen) 02/01/2020 11:42 AM EST 02/01/2020 11:52 AM EST Narrative Resulting Agency Comment Spec In Lab Toño West MD HEMATOLOGY ORDER KATHY [facility] [place] [address] * Antibody screen (02/01/2020 11:42 AM EST) Ab Screen Interp Negative [facility] Expires at 2359 on: 02/04/2020 [facility] Blood specimen (specimen) 02/01/2020 11:42 AM EST 02/01/2020 11:58 AM EST Narrative Resulting Agency Comment Spec In Lab Toño West MD BLOOD BANK LAB O RDERABLES Performing Organization Address City/[facility]/ZIP Co de Phone Number [facility] [place] [address] * ABO/Rh Typing (02/01/2020 11:42 AM EST) ABORH Type A Pos [facility] Blood specimen (specimen) 02/01/2020 11:42 AM EST 02/01/2020 11:58 AM EST Narrative Resulting Agency Comment Spec In Lab Toño West MD BLOOD BANK LAB O RDERABLES Performing Organization Address [facility]/ZIP Co de Phone Number [facility] [place] [address] * (ABNORMAL) Lactate Dehydrogenase (02/01/2020 11:42 AM EST) [facility] LDH 347(H) 110 - 220 unit/L [facility] Blood specimen (specimen) 02/01/2020 11:42 AM EST 02/01/2020 11:52 AM EST Narrative Resulting Agency Comment Spec In Lab Toño West MD CHEMISTRY ORDERA BLES Performing Organization Address City/[facility]/ZIP Co de Phone Number [facility] [place] [address] * (ABNORMAL) Comprehensive metabolic panel (non-fasting) (02/01/2020 11:42 AM EST) [facility] Glucose Lvl 95 65 - 199 mg/dL [facility] Comment:Diabetes: >=200 mg/d L plus symptoms BUN 18 8 - 18 mg/dL [facility] Creatinine 2.46(H) 0.70 - 1.20 mg/dL [facility] Sodium 141 135 - 145 mmol/L [facility] Potassium 4.3 3.5 - 5.0 mmol/L [facility] Comment: Please note: ??Patients with WBC >100,000 may have falsely elevated Potassium levels. ??For accurate Potassium quantification in these patients send serum separator tube (gold top) for subsequent determinations. ??Contact the Clinical Chemistry Laboratory if there are any questions. Chloride 105 98 - 107 mmol/L [facility] CO2 23 22 - 31 mmol/L [facility] Anion Gap 13 5 - 15 mmol/L [facility] Calcium 9.2 8.5 - 10.5 mg/dL [facility] Total Protein 7.0 6.1 - 8.0 gm/dL [facility] Albumin 4.1 3.2 - 5.2 gm/dL [facility] AST 30 0 - 30 unit/L [facility] ALT 36(H) 0 - 30 unit/L [facility] Alk Phos 93 35 - 105 unit/L [facility] Total Bilirubin 0.2 0.2 - 1.3 mg/dL [facility] Comment:result rechecked-rigoberto Estimated GFR 21(L) >=60 mL/min/1. 73 m?? [facility] Comment: The eGFR was calculated using the CKD-EPI equation. As with all creatinine based estimates of kidney function, eGFR values calculated with the CKD-EPI equation are not accurate in patients with acute kidney failure, extremes of body mass or the acutely ill. [email or web address] eGFR 24(L) >=60 mL/min/1. 73 m?? [facility] Comment: The eGFR was calculated using the CKD-EPI equation. As with all creatinine based estimates of kidney function, eGFR values calculated with the CKD-EPI equation are not accurate in patients with acute kidney failure, extremes of body mass or the acutely ill. [email or web address] Blood specimen (specimen) 02/01/2020 11:42 AM EST 02/01/2020 11:52 AM EST Narrative Resulting Agency Comment Spec In Lab Toño West MD CHEMISTRY ORDERA BLES [facility] [place] [address] documented in this encounter Visit Diagnoses Diagnosis Non-small cell lung cancer, right documented in this encounter Care Teams Information Technology Assistant Relationship Specialty Start Date End Date Kathy Wright, MARÍA PCP - General Family Medicine 04/22/19 documented as of this encounter
--- OUTSIDE RECORDS SUMMARY | 2024-06-24 01:09 | XMS_ITS | Encounter Summary ---
Author Organization Count Includes [facility] Address [facility] [address] Care Team Providers Care Manager Construction Name Role Phone GerardoKathy nicolas Butch DANIEL Primary Care Provider [phone] Reason for Visit * Reason Comments Other Hydration Encounter Details Date Type Department Care Team (Late st Contact Info) Description 01/17/2020 1:30 PM EST Infusion Hematology Oncology at [address] [phone] Non-small cell lung cancer, right Social History [...] Sign Reading Time Taken Comments Blood Pressure 121/47 01/17/2020 2:03 PM EST Pulse 85 01/17/2020 2:03 PM EST Temperature 36.4 ??C (97.5 ??F) 01/17/2020 2:03 PM ES T Respiratory Rate 18 01/17/2020 2:03 PM EST Oxygen Saturation 100% 01/17/2020 2:03 PM EST Inhaled Oxygen Concentration - - Weight 68.2 kg (150 lb 6.4 oz) 01/17/2020 2:03 P M EST Height 158 cm (5' 2.21) 01/17/2020 2:03 PM EST Body Mass Index 27.33 01/17/2020 2:03 PM EST documented in this encounter Progress Notes * Leslie Giraldo RN - 01/17/2020 1:30 PM EST INFUSION THERAPY ADMINISTRATION NOTES DIAGNOSIS: NSCLC REASON FOR VISIT: Hydration SUBJECTIVE Marleni offers no complaints. OBJECTIVE IV ACCESS: PIV REACTIONS (DESCRIPTION, TIME, INTERVENTION AND EFFECTIVENESS) none ASSESSMENT Marleni was awake, alert and tolerated treatment well. PLAN Return to clinic per routine. documented in this encounter Plan of Treatment Not on file documented as of this encounter Visit Diagnoses Diagnosis Non-small cell lung cancer, right documented in this encounter Administered Medications Inactive Administered Medications - up to 3 most recent administrations Medication Order MAR Action Action Date Dose Rate Site sodium chloride 0.9% infusion 500 mL/hr, Intravenous, CONTINUOUS, Starting on Fri01/17/20 at 1400, Until Fri01/17/20 at 1559 New Bag 01/17/2020 2:19 PM EST 500 mL/hr 500 mL/hr documented in this encounter Care Teams Manager Construction Relationship Specialty Start Date End Date Kathy Wright APRN PCP - General Family Medicine 04/22/19 documented as of this encounter
--- OUTSIDE RECORDS SUMMARY | 2024-06-24 01:09 | XMS_ITS | Encounter Summary ---
Author Organization [facility] [place] [address] Care Team Providers Care Advertising Agent Name Role Phone Kathy Wright MANAGER EMPLOYEE RELATIONS Primary Care Provider [phone] Encounter Details Date Type Department Care Team (Late st Contact Info) Description 04/06/2020 Telephone [place]ematology [place] [address] Scarlett Castillo, RN Social History Tobacco Use [...] Telephone Encounter - Scarlett Castillo, RN - 04/06/2020 8:25 AM EDT Follow-up: knee bolter to get labs and CT results from [facility] on 04/06 in preporation for phone visit on 04/07 with Toño. Labs, CT report & echo results received & scanned into chart. Message sent to Merced Kenny to request labs be entered in anticipation of telephone visit tomorrow. documented in this encounter Plan of Treatment Not on file documented as of this encounter Visit Diagnoses Not on filedocumented in this encounter Care Teams Advertising Agent Relationship Specialty Start Date End Date Kathy Wright APRN PCP - General Family Medicine 04/22/19 documented as of this encounter
--- OUTSIDE RECORDS SUMMARY | 2024-06-24 01:09 | XMS_ITS | Encounter Summary ---
Author Organization [facility] [place] [address] Care Team Providers Care Loaders Name Role Phone Kathy Wright MARÍA Primary Care Provider [phone] Encounter Details Date Type Department Care Team (Late st Contact Info) Description 03/10/2020 Telephone Hematology [place] [address] Scarlett Castillo, RN Social History Tobacco Use [...] Telephone Encounter - Scarlett Castillo, RN - 03/10/2020 7:59 AM EDT Follow-up: Triage-f/u on BMP, Mg+ 03/10 @ [facility]. Following renal function Plan was for pt to get labs 03/10 @ [facility]. Called to f/u on results 03/10 but per lab pt had not been there. Several calls made to pt to f/u & determine reason she did not get labs. Left messages requesting pt to call back to clinic but have not heard back from pt. Message received from construction secretary: Marleni finally called with a new phone number I have updated chart, she had labs drawn by home health yesterday, I called [facility] they will add bmp, mag and send to us Lab results received & entered into ED-H. Message sent to Dr. West to request he review labs. documented in this encounter Plan of Treatment Not on file documented as of this encounter Visit Diagnoses Not on filedocumented in this encounter Care Teams Loaders Relationship Specialty Start Date End Date Kathy Wright APRN PCP - General Family Medicine 04/22/19 documented as of this encounter
--- OUTSIDE RECORDS SUMMARY | 2024-06-24 01:09 | XMS_ITS | Encounter Summary ---
[place] [address] Care Team Providers Care Calender Roll Press Operator Name Role Phone Kathy Wright Butch DANIEL Primary Care Provider [phone] Encounter Details Date Type Department Care Team (Late st Contact Info) Description 03/27/2020 Telephone Hematology [place] [phone] Radha Bynum RN Social History Tobacco Use [...] Telephone Encounter - Radha Bynum RN - 03/27/2020 10:57 AM EDT Message received from executive legal secretary: Patient does not want to go to [facility] to get chest ct 04/03, she is toscared to go to a hospital that is where all the sick people are however she is still having significant breathing problems with any activity, nose still very stuffy blowing green out of it for thepast 2months, she is having high anxiety about the covid (this has been addressed with her therapist ezra) Please call [phone] Call placed to Marleni to discuss. Marleni states she continues with SOB with exertion. She feels its slightly worse from before. While at rest she feels ok. Continues with a dry frequent cough whichis not new or worsening for her. Afebrile. Denies chills. Denies chest pain or palpitations. Marleni is scheduled to have labs and CT scan at [facility] on 03/31 in preparation for a phone visit with Dr. West on 04/04. She is not sure she will be able to get this done d/t ride concerns. She states she is willing to still get this done but she needs to talk to her neighbor to see if they can bring her. She does not feel emergent evaluation of her breathing is warranted at this time. I encouraged Marleni to call back to the clinic if she is unable to get a ride to this appointment on 03/31, her breathing is worsening or she has other questions or concerns. She verbalized understanding. Dr. West updated on the above. documented in this encounter Plan of Treatment Not on file documented as of this encounter Visit Diagnoses Not on filedocumented in this encounter Care Teams Calender Roll Press Operator Relationship Specialty Start Date End Date Kathy Wright APRN PCP - General Family Medicine 04/22/19 documented as of this encounter
--- OUTSIDE RECORDS SUMMARY | 2024-06-24 01:10 | XMS_ITS | Encounter Summary ---
Author Organization [facility] [place] [address] Care Team Providers Care Register Of Deeds Name Role Phone Gerardomaria isabel Kathy Rae APRN Primary Care Provider [phone] Reason for Visit * Reason Onset Date Comments Other 11/17/2019 transportation Encounter Details Date Type Department Care Team (Late st Contact Info) Description 11/17/2019 Telephone Hematology/Oncology at [address] [phone] Holly Schaeffer MSW OFFICE OF CARE MANAGEMENT Other (transportation) Social History Tobacco Use Types Packs/Day Years Used Date Smoking Tobacco: Former Cigarettes 0.5 42 0 08/02/1977 - 08/02/2019 Smokeless Tobacco: Former Quit: 07/02/2019 Alcohol Use Standard Drinks/Week Comments Never 0 (1 standard drink = 0.6 oz pur e alcohol) Sex and Gender Information Value Date Recorded Sex Assigned at Not on file Gender Identity Not on file Sexual Orientation Not on file documented as of this encounter Miscellaneous Notes * Telephone Encounter - Holly Schaeffer MSW - 11/17/2019 11:06 AM EST TC from pt indicated she was having trouble scheduling her next ride here on 11/29/19 because she was told she needed a referral. TC RCT to clarify pt's appointment Date, time and location. RCT thought pt going to [facility] of [facility]. Clarified issue and verified times of pt's appointment. TC pt back to update her. documented in this encounter Plan of Treatment Not on file documented as of this encounter Visit Diagnoses Not on filedocumented in this encounter Care Teams Register Of Deeds Relationship Specialty Start Date End Date Kathy Wright, MARÍA PCP - General Family Medicine 04/22/19 documented as of this encounter
--- OUTSIDE RECORDS SUMMARY | 2024-06-24 01:10 | XMS_ITS | Encounter Summary ---
Author Organization [facility] Address [facility] [place] [address] Care Team Providers Care Machine Brush Maker Name Role Phone GerardoKathy nicolas Butch DANIEL Primary Care Provider [phone] Encounter Details Date Type Department Care Team (Late Contact Info) Description 12/07/2019 Notes Only Hematology/Oncology at [address] [phone] Holly Schaeffer MSW OFFICE OF CARE MANAGEMENT Social History Tobacco Use Types [...] as of this encounter Progress Notes * Holly Schaeffer MSW - 12/07/2019 10:39 AM EST Follow up with pt during infusion. Pt indicated she is managing the best she can day to day with support from her son. Pt with questions re home making assistance and discussed contacting the [facility] or Home Health for information about their services for home making. Pt with questions about a wige andinformed her Magy Dunn RN, Nurse Assistant oversees our wig bank and she is a resource for that. Pt to consider this. Pt reports her rides through [facility] are working well and she continues to schedule her ownrides. Offered support. Reminded pt of MUD JACK OPERATOR availability and will follow for support and resources. documented in this encounter Plan of Treatment Not on file documented as of this encounter Visit Diagnoses Not on filedocumented in this encounter Care Teams Machine Brush Maker Relationship Specialty Start Date End Date Kathy Wright APRN PCP - General Family Medicine 04/22/19 documented as of this encounter
--- OUTSIDE RECORDS SUMMARY | 2024-06-24 01:10 | XMS_ITS | Encounter Summary ---
Author Organization [facility] [place] [address] Care Team Providers Care Machine Filler Shredder Name Role Phone Kathy Wright APRN Primary Care Provider [phone] Encounter Details Date Type Department Care Team (Late st Contact Info) Description 11/11/2019 Orders Only Hematology [place] [address] Adrienne Mendez APRN [facility] [place] [address] Non-small cell lung cancer, right Social History [...] right documented in this encounter Care Teams Machine Filler Shredder Relationship Specialty Start Date End Date Kathy Wright APRN PCP - General Family Medicine 04/22/19 documented as of this encounter
--- OUTSIDE RECORDS SUMMARY | 2024-06-24 01:10 | XMS_ITS | Encounter Summary ---
[place] [address] Care Team Providers Care Career Education Teacher Name Role Phone GerardoKathy nicolas Butch DANIEL Primary Care Provider [phone] Encounter Details Date Type Department Care Team (Late st Contact Info) Description 11/29/2019 Telephone Hematology [place] [address] Radha Bynum RN Social History Tobacco Use [...] Telephone Encounter - Radha Bynum RN - 11/29/2019 10:53 AM EST Request from provider- Adrienne Mendez APRN: Radha or Mary- can you call the pt and let her know that there is no evidence of cancer in the brain. Call placed to Marleni to discuss. Reviewed brain MRI results with Marleni and she was relieved andappreciated this call. She offers no other symptoms or concerns. Encouraged her to call back shouldshe have further questions or concerns. documented in this encounter Plan of Treatment Not on file documented as of this encounter Visit Diagnoses Not on filedocumented in this encounter Care Teams Career Education Teacher Relationship Specialty Start Date End Date Kathy Wright APRN PCP - General Family Medicine 04/22/19 documented as of this encounter
--- OUTSIDE RECORDS SUMMARY | 2024-06-24 01:10 | XMS_ITS | Encounter Summary ---
Author Organization [facility] [place] [address] Care Team Providers Care Bag Bundler Name Role Phone GerardoKathy nicolas Butch DANIEL Primary Care Provider [phone] Reason for Visit * Reason Onset Date Comments Appointment 11/15/2019 Encounter Details Date Type Department Care Team (Late st Contact Info) Description 11/15/2019 Telephone [place] [address] Mehran Vaughn Appointment Social History Tobacco Use Types Packs/Day Years [...] encounter Miscellaneous Notes * Telephone Encounter - Mehran Vaughn - 11/15/2019 9:14 AM EST Caller and relationship to patient (if other than patient): Marleni Arreola Best time to reach caller: anytime today Message or Reason for Call: patient thought she was scheduled for labs and an MRI of the brain before she starts visits at tomorrow. Appt Needed and Reason: labs and MRI of the brain Provider: Anant documented in this encounter Plan of Treatment Not on file documented as of this encounter Visit Diagnoses Not on filedocumented in this encounter Care Teams Bag Bundler Relationship Specialty Start Date End Date Kathy Wright APRN PCP - General Family Medicine 04/22/19 documented as of this encounter
--- OUTSIDE RECORDS SUMMARY | 2024-06-24 01:10 | XMS_ITS | Encounter Summary ---
Author Organization [facility] [place] [address] Care Team Providers Care Welder Gas Automatic Name Role Phone GerardoKathy nicolas Butch DANIEL Primary Care Provider [phone] Reason for Visit * Reason Comments Follow-up Lung Cancer Encounter Details Date Type Department Care Team (Late st Contact Info) Description 01/04/2020 9:15 AM EST Office Visit Hematology [place] [address] Toño Zuluaga MD [facility] [place] [address] Adrienne Mendez APRN [facility] [place]ATOLOG[place] [address] Letty Vargas MD [facility] DR HEMATOLOGY/[place] [address] Non-small cell lung cancer, right; NAHUM (acute kidney injury) Social History Tobacco Use Types Packs/Day Years [...] Sign Reading Time Taken Comments Blood Pressure 145/75 01/04/2020 9:18 AM EST Pulse 93 01/04/2020 9:18 AM EST Temperature 36.3 ??C (97.3 ??F) 01/04/2020 9:18 AM ES T Respiratory Rate 18 01/04/2020 9:18 AM EST Oxygen Saturation 100% 01/04/2020 9:18 AM EST Inhaled Oxygen Concentration - - Weight 67.1 kg (148 lb) 01/04/2020 9:18 AM EST w ith shoes Height 158 cm (5' 2.21) 01/04/2020 9:18 AM EST with shoes Body Mass Index 26.89 01/04/2020 9:18 AM EST documented in this encounter Progress Notes * Toño Zuluaga MD - 01/04/2020 9:15 AM EST Images from the original note [...] RLL.??A dedicated??CT Chest was performed??07/02/18??which demonstrated stable [id number] nodules in the RLL, largest measuring 9 [...] NAHUM. The start of cycle 3 was delayed. INTERVAL HISTORY: Last seen 12/28/2019. Comes today for re-evaluation and consideration of Cycle 3 of adjuvant chemotherapy. Patient reports overall improvement in her condition compared to 1 week ago with significantly improved cough and sinus congestion. Suppressed appetite since cycle #2 but continues to eat and drink well. No nausea or taste change. Patient has switched form drinking mostly coffee and tea to water and increased oral fluid intake. Stable to slightly increased dyspnea on exertion. No breathlessness at rest. Inhalers significantly improve her breathing. Cough without hemoptysis. She does acknowledge minimal blood-tinged nasal mucus associated with sinus infection. Completed course of antibiotics last week. No fevers or sore throat. Moderate headaches since beginning chemotherapy. No nausea/vomiting or aura associated with headaches. Patient has a remote history of headaches in her 20s and 30s but has not had headaches in decades. Bowel movements are regular, no bleeding, no dysuria. The patient denies any fevers. No numbness, no tingling. Two recent falls associated with positional change induced dizziness/lightheadedness. No loss of consciousness or trauma. ROS See HPI. ROS otherwise unremarkable. PMHX: [...] by Juan Ny MD at [facility] MAIN OR ? ? PRO INJECTION ANES AGENT &/ STEROID INTERCOSTAL NERVE EA ADDL LEVEL Right 10/06/2019 NERVE BLOCK, INTERCOSTAL NERVE, MULTIPLE (WRVU 1.68) performed by Juan Ny MD at [facility] MAIN OR ??? PRO THORACOSCOPY SURG LOBECTOMY Right 10/06/2019 @ROBOT XI THORACOSCOPY,SURGICAL,W\LOBECTOMY,TOTAL OR SEGMENTAL (WRVU 24.64) performed by Juan Ny MD at [facility] MAIN OR ??? PRO THORACOSCOPY WITH MEDIASTINAL AND REGIONAL LYMPHADENECTOMY Right 10/06/2019 @ROBOT XI THORACOSCOPY,SURG; W/MEDIASTINAL& REGIONAL LYMPHADENECTOMY (WRVU 4.12) performed by Juan Ny MD at [facility] MAIN OR ??? PRO THORACOSCOPY WITH WEDGE RESECTION AND ANATOMIC LUNG RESECTN Right 10/06/2019 @ROBOT XI THORACOSCOPY,SURG; W/DX WEDGE RESC W/ANATOMIC LUNG RESC (WRVU 3) performed by Juan Ny MD at [facility] MAIN OR MEDS: Current Outpatient Medications on File Prior to Visit Medication Sig Dispense Refill ??? magnesium oxide (MAG-OX) 400 mg (241.3 mg magnesium) Tablet Take 1 tablet by mouth daily. 30 tablet 1 ??? diphenhydrAMINE/aluminum-magnesium hydroxide with simethicone/lidocaine (BMX) (6.67 mg-0.83 mg-13.33 mg-1.33 mg/mL) oral liquid Take 5 mLs by mouth 4 times daily. 200 mL 1 ??? gabapentin (NEURONTIN) 100 mg Capsule Take 1 capsule by mouth 3 times daily as needed. 60 capsule 0 ??? amitriptyline (ELAVIL) 100 mg Tablet 1 [...] Take 2 tablets by mouth every evening. (Patient not taking: Reported on 01/04/2020) 60 tablet 1 No current facility-administered medications on file prior to visit. Allergies: Allergies Allergen Reactions ??? Cis Free Text Allergy COMBID. ??? Isopropamide ??? 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) ETOH: Smoking: quit smoking in August 2019 (quit cold-turkey), previously smoking 1+PPD for 42 years Marijuana or illicit drug use: edible marijuana (has a medical marijuana card) PHYSICAL EXAM Vitals: 01/04/20 0918 BP: 145/75 Patient Position: Sitting Pulse: 93 Resp: 18 Temp: 36.3 ??C (97.3 ??F) TempSrc: Temporal SpO2: 100% Weight: 67.1 kg (148 lb) Height: 158 cm (5' 2.21) Wt Readings from Last 3 Encounters: 01/04/20 67.1 kg (148 lb) 12/28/19 66.5 kg (146 lb 9.6 oz) 12/15/19 64.9 kg (143 lb) The patient was in no acute [...] LABORATORY STUDIES Recent Results (from the past 24 hour(s)) Comprehensive metabolic panel (non-fasting) Result Value Ref Range Glucose Lvl 98 65 - 199 mg/dL BUN 24 (H) 8 - 18 mg/dL Creatinine 1.18 0.70 - 1.20 mg/dL Sodium 138 135 - 145 mmol/L Potassium 4.0 3.5 - 5.0 mmol/L Chloride 102 98 - 107 mmol/L CO2 21 (L) 22 - 31 mmol/L Anion Gap 15 5 - 15 mmol/L Calcium 9.4 8.5 - 10.5 mg/dL Total Protein 7.1 6.1 - 8.0 gm/dL Albumin 4.0 3.2 - 5.2 gm/dL AST 23 0 - 30 unit/L ALT 19 0 - 30 unit/L Alk Phos 126 (H) 35 - 105 unit/L Total Bilirubin 0.2 0.2 - 1.3 mg/dL eGFR 50 (L) >=60 mL/min/1.73 m?? eGFR 58 (L) >=60 mL/min/1.73 m?? Hemogram Result Value Ref Range WBC 11.3 (H) 4.0 - 9.5 x10(3)/mcL RBC 3.39 (L) 4.00 - 5.21 x10(6)/mcL Hemoglobin 10.5 (L) 11.7 - 15.5 gm/dL Hematocrit 31.2 (L) 35.7 - 45.8 % MCV 92.0 82.6 - 94.4 fL MCH 31.0 27.1 - 32.0 pg MCHC 33.7 31.7 - 35.0 gm/dL Platelets 189 145 - 357 x10(3)/mcL RDWSD 51.3 (H) 37.0 - 46.0 fL RDWCV 16.9 (H) 11.5 - 14.1 % MPV 9.3 7.6 - 12.9 fL nRBC % Auto 0.0 % nRBC Abs Auto 0.000 0.000 - 0.000 x10(3)/mcL Differential, Automated Result Value Ref Range Neutrophils % 57.0 % Neutr Abs (ANC) 6.45 (H) 1.70 - 6.10 x10(3)/mcL Lymphocytes % 29.6 % Lymphocytes Abs 3.4 (H) 0.9 - 3.2 x10(3)/mcL Monocytes % 11.8 % Monocyte Abs 1.3 (H) 0.3 - 0.9 x10(3)/mcL Eosinophils % 0.2 % Eosinophils Abs 0.0 0.0 - 0.4 x10(3)/mcL Basophils % 0.8 % Basophils Abs 0.1 0.0 - 0.1 x10(3)/mcL Immature Gran % 0.60 % Wilma Gran Abs 0.07 (H) 0.00 - 0.04 x10(3)/mcL Improving creatinine. Slightly increased ALP with otherwise normal LFTs. RADIOLOGY STUDIES REVIEWED: I personally reviewed an outside brain MRI from 11/23/19 that showed no evidence for metastatic disease to the brain. ASSESSMENT: Marleni is a 59 y/o woman [...] and increased PO fluid intake. Her creatinine has improved over the last 3 weeks. I counseled the patient and her daughter in law about these results, their implications for her prognosis and we discussed treatment options. She knows that she can stop at any time and she prefers to continue. I recommended switching for cisplatin/pemetrexed to carboplatin/pemetrexed given NAHUM with C2. The plan is for a total of 4 cycles, if patient is able to tolerate, otherwise, we will stop after 3 cycles. She met with radiation oncology and decided against radiation. The patient understands that despite completing all therapy, she will be at significant risk for recurrence and regular surveillance will be recommended. Her increased dyspnea is likely related to COPD and is actively managed by her PCP. For her headaches, malignancy is less likely, given a negative brain MRI last month. I advised the patient she mayuse ibuprofen in limited doses followed by tylenol if headache persists, and additional evaluation may be needed. After discussion,she decided to proceed with cycle #3 with carboplatin/pemetrexed today. I recommended dose reductions. These may decrease but not eliminate the risks for complications.The patient agrees with this plan. [facility] in 3 week with labs, clinic, infusion for carboplatin/pemetrexed. I advised her to call if she develops any fever, shortness of breath, new pain, weakness, bleeding or any other unusual medical symptoms. I, Lisa Fox, have performed the documentation for this encounter in the presence of and actingas a scribe for TOÑO ZULUAGA MD. All medical record entries made by the Scribe were at my direction and personally dictated by me. Ihave reviewed the chart and agree that the record accurately reflects my personal performance of the history, physical exam, assessment and plan. I have also personally directed, reviewed, and agree with the discharge instructions. 01/04/20 documented in this encounter Plan of Treatment Not on file documented as of this encounter Visit Diagnoses Diagnosis Non-small cell lung cancer, right NAHUM (acute kidney injury) Acute kidney failure, unspecified documented in this encounter Care Teams Welder Gas Automatic Relationship Specialty Start Date End Date Kathy Wright APRN PCP - General Family Medicine 04/22/19 documented as of this encounter
--- OUTSIDE RECORDS SUMMARY | 2024-06-24 01:10 | XMS_ITS | Encounter Summary ---
Author Organization [facility] [place] [address] Care Team Providers Care Petroleum Sampler Name Role Phone GerardoKathy nicolas Butch DANIEL Primary Care Provider [phone] Encounter Details Date Type Department Care Team (Late st Contact Info) Description 12/20/2019 Telephone Hematology [place] [address] Scarlett Castillo, RN Social History Tobacco Use [...] Telephone Encounter - Scarlett Castillo, RN - 12/20/2019 8:52 AM EST Follow-up: Recheck BMP on Friday AM at [facility]. Labs received, entered into ED-H & reviewed with AIRPLANE PATROLLER. Per Adrienne Mendez APRN: We'll see her next week and recheck labs then. No intervention needed at this time and no additional labs are needed prior to next week. Can you just make sure she is hydrating with at least 2L/day of non- caffeinated, non-alcoholic fluid. Call placed to pt to review labs & plan above. Confirmed with pt she is drinking 2L/day of non-caffeinated, non-alcoholic fluid. States she is only drinking one cup of coffee today & otherwise is drinking water. Pt to return to clinic 12/28 as planned. Encouraged to call back to clinic withany questions or concerns. documented in this encounter Plan of Treatment Not on file documented as of this encounter Procedures Procedure Name Priority Date/Time Associated Diagnosis Comments BASIC METABOLIC PANEL (NON-FASTING) Routine 12/20/2019 documented in this encounter Results * (ABNORMAL) Basic Metabolic Panel (non-fasting) (12/20/2019) Glucose Lvl 131(WATER TAXI CAPTAIN AL/ABN) 74 - 106 BUN 23(EXTERNA L/ABN) 7 - 18 Creatinine 1.79(EXTER NAL/ABN) 0.55 - 1.02 Sodium 139(Cardiac Cath Technician al Lab) 136 - 145 Potassium 4.8(Cardiac Cath Technician al Lab) 3.5 - 5.1 Chloride 103(Cardiac Cath Technician al Lab) 98 - 107 CO2 25(Externa l Lab) 21 - 32 Calcium 9.3(Cardiac Cath Technician al Lab) 8.5 - 10.1 Blood specimen (specimen) 12/20/2019 Historical Provider CHEMISTRY ORDERAB LES documented in this encounter Visit Diagnoses Not on filedocumented in this encounter Care Teams Petroleum Sampler Relationship Specialty Start Date End Date Kathy Wright APRN PCP - General Family Medicine 04/22/19 documented as of this encounter
--- OUTSIDE RECORDS SUMMARY | 2024-06-24 01:10 | XMS_ITS | Encounter Summary ---
Author Organization [facility] [place] [address] Care Team Providers Care Hand Hardener Name Role Phone Kathy Wright MARÍA Primary Care Provider [phone] Reason for Visit * Reason Onset Date Comments Medication Refill 01/13/2020 Encounter Details Date Type Department Care Team (Late st Contact Info) Description 01/13/2020 Telephone [place]ology [place] [address] Scarlett Castillo, health officer Refill Social History Tobacco Use Types Packs/Day Years [...] Telephone Encounter - Scarlett Castillo, RN - 01/13/2020 11:49 AM EST Message received from engineering secretary: Marleni called to cancel her 01/[address] West because she cannot even get out of the house to check her mail let alone come all the way down here. ??I told her that we will leave it for now and that I wanted someone to call and go over her symptoms. ??She complains of still having weakness and being lightheaded. ?? She spoke with kaye on Friday, but lincoln rodriguez isnt getting any better. ?? [phone] S/O: Call placed to pt to assess symptoms. States she has been feeling poorly since last week. Ended up going to ED over the weekend & then had f/u with PCP on 01/10. Per pt all testing at ED was negative. PCP order zofran but still having nausea despite taking zofran every 8 hrs. Zofran has helped though & has not vomited again. Fluid intake has improved since starting zofran but not eat ing much. Very weak.Feels light headed & dizzy. Voiding without difficulty & describes urine as clear yellow urine.No fever or chills. Having a hard time breathing with increased SOB startingon . Using rescue inhaler with minimal relief. SOB with any exertion & this is new since she saw Dr. West last. Nasal congestion & blowing green secretions from nose. Has a cough that is occasionally productive of very small amts of fluid. Some new mid sternal chest pain that started on that feels like gas pain. Has been having headaches at night & has been taking tylenol which helps. No focal weakness, visual changes, facial drooping, slurred speech or mental status changes. Assessment: Weakness & lightheadedness in patient with stage III NSCLC s/p carbo/alimta 01/04 Plan: Discussed with Adrienne Mendez APRN. Will arrange for pt to have labs & hydration at [facility] tomorrow if pt in agreement. Call placed back to pt to discuss. She is unable to get to [facility] tomorrow. States she would be able to go on Friday. Discussed with Adrienne Mendez APRN. Will start pt on dexamethasone 4 mg po daily through the & arrange for labs & hydration Friday @ [facility]. Call placed back to pt with plan. She is able to go for labs & hydration on Friday. Let her know she will hear from engineering secretary with appointment. Reviewed reason for dexamethasone & administration instructions. Advised to call back directly if there are further questions, or if these symptomsfail to improve as anticipated or worsen. Pt in agreement with plan and knows to call clinic with any concerns and/or questions. documented in this encounter Plan of Treatment Not on file documented as of this encounter Visit Diagnoses Not on filedocumented in this encounter Care Teams Hand Hardener Relationship Specialty Start Date End Date Kathy Wright APRN PCP - General Family Medicine 04/22/19 documented as of this encounter
--- OUTSIDE RECORDS SUMMARY | 2024-06-24 01:10 | XMS_ITS | Encounter Summary ---
Author Organization [facility] [address] [address] Care Team Providers Care Vessel Engineer Name Role Phone GerardoKathy nicolas Butch DANIEL Primary Care Provider [phone] Encounter Details Date Type Department Care Team (Late Contact [facility]) Description 11/16/2019 Notes Only Hematology/Oncology at [address] [phone] Holly Schaeffer MSW OFFICE OF CARE MANAGEMENT [...] Progress Notes * Holly Schaeffer MSW - 11/16/2019 9:49 AM EST Reason for Referral: Brief assessment of social and emotional needs. Met with pt during infusion today. Social Supports: Pt identified her primary support as her son Blaze. She also identified 3 very good friends. Pt identified the [facility] worker who checks on her occasionally. Pt also has a daughter who she has a strained relationship with. Living Situation/Daily Activities/Transportation: Pt lives alone in an apartment in [place]. She uses [facility] for transportation to medical appointments and she schedules her own rides. Work/Finances/Insurance: Pt is disabled. She has income from . She has Medicaid for insurance. Advance Directives: Pt has completed her advance directive and a copy is in her medical record. Utilization of Community Resources: [facility]; [employer]/food assistance; local food shelves; [facility] services; Adjustment to Illness/Mental Health Issues: Pt indicated she has her good days and bad days but overall she is trying to stay positive. She has a 10 week old pug, Tita, who provides a lot of support and entertainment. She has tried to be a primary support to her children but her daughter in particular has had some difficulties. This has lead to estrangement from her grandchildren which saddens her. Offered support. Identified Needs: Pt did not identify any specific needs at this time. Referrals: None at this time. Plan: Informed pt of APPLICATION TECHNICAL DESIGNER availability and will follow for support and resources. documented in this encounter Plan of Treatment Not on file documented as of this encounter Visit Diagnoses Not on filedocumented in this encounter Care Teams Vessel Engineer Relationship Specialty Start Date End Date Kathy Wright APRN PCP - General Family Medicine 04/22/19 documented as of this encounter
--- OUTSIDE RECORDS SUMMARY | 2024-06-24 01:10 | XMS_ITS | Encounter Summary ---
[place] [address] Care Team Providers Care Manager Process Improvement Name Role Phone Kathy Wright MARÍA Primary Care Provider [phone] Encounter Details Date Type Department Care Team (Late st Contact Info) Description 11/23/2019 Telephone Hematology [place] [address] Radha Bynum RN Social History Tobacco Use [...] Telephone Encounter - Radha Bynum RN - 11/23/2019 8:22 AM EST Follow-up: membership solicitor to follow-up with [facility], CMP tomorrow from [facility]. No results by the end of clinic day on 11/23. membership solicitor to follow-up on lab results on 11/25. documented in this encounter Plan of Treatment Not on file documented as of this encounter Visit Diagnoses Not on filedocumented in this encounter Care Teams Manager Process Improvement Relationship Specialty Start Date End Date Kathy Wright APRN PCP - General Family Medicine 04/22/19 documented as of this encounter
--- OUTSIDE RECORDS SUMMARY | 2024-06-24 01:10 | XMS_ITS | Encounter Summary ---
Author Organization [facility] [place] [address] Care Team Providers Care Automotive Sales Representative Name Role Phone Kathy Wright APRN Primary Care Provider [phone] Encounter Details Date Type Department Care Team (Late st Contact Info) Description 12/15/2019 Orders Only Hematology [place] [address] Adrienne Mendez APRN [facility] HEMATOLOGY-[place] [address] Social History Tobacco Use Types Packs/Day Years [...] on filedocumented in this encounter Care Teams Automotive Sales Representative Relationship Specialty Start Date End Date Kathy Wright APRN PCP - General Family Medicine 04/22/19 documented as of this encounter
--- OUTSIDE RECORDS SUMMARY | 2024-06-24 01:10 | XMS_ITS | Encounter Summary ---
[facility] [place] [address] Care Team Providers Care Link Trainer Mechanic Name Role Phone GerardoKathy nicolas Butch DANIEL Primary Care Provider [phone] Encounter Details Date Type Department Care Team (Late st Contact Info) Description 01/10/2020 Telephone Hematology [place] [address] Yanna Abreu, RN Social History Tobacco Use Types Packs/Day [...] encounter Miscellaneous Notes * Telephone Encounter - Yanna Abreu, RN - 01/10/2020 3:25 PM EST Message received from clinical toolroom clerk: Patient would like to update a nurse on her ED visit yesterday at [facility] please call [phone] Call placed to patient who explains that starting on last week she started to not feel right. Explains that she had no appetite, was not eating or drinking hardly anything and was startingto get weak and tired. No fever or chills. Did develop some abdominal pain. No diarrhea and reportsthat she was moving her bowels regularly. Explains that she knew that she should have gone to the ED but did not want to so she waited. Yesterday a friend came to check in on her and ended up callingthe ambulance as patient was profoundly weak and lethargic. She was brought to [facility] where she was given some IV fluids. She explains that they did multiple tests but she was told that everything cameback normal and she was discharged last night. Today she went to her PCP's office for a f/u appt. While at the appt she collapsed as she felt weak and then she vomited. Her PCP then gave her some zofran and had her drink some pedialyte. She then started to feel much better. PCP send her home with ascript for zofran. Patient explains that she is feeling better this afternoon and just wanted this office to be aware. Is having some chicken noodle soup now. Instructed patient to be sure to call clinic back if nausea continues despite use of zofran or withany new or worsening symptoms. Instructed her to continue to increase fluid intake. Message sent to clinical secretaries to request records. Note forwarded to as FYI documented in this encounter Plan of Treatment Not on file documented as of this encounter Visit Diagnoses Not on filedocumented in this encounter Care Teams Link Trainer Mechanic Relationship Specialty Start Date End Date Kathy Wright APRN PCP - General Family Medicine 04/22/19 documented as of this encounter
--- OUTSIDE RECORDS SUMMARY | 2024-06-24 01:10 | XMS_ITS | Encounter Summary ---
[place] [address] Care Team Providers Care Lab Instructor Name Role Phone Kathy Wright MARÍA Primary Care Provider [phone] Encounter Details Date Type Department Care Team (Late st Contact Info) Description 12/31/2019 Telephone Hematology [place] [address] Radha Bynum RN Social History Tobacco Use [...] Telephone Encounter - Radha Bynum RN - 12/31/2019 2:16 PM EST Message received from medical office secretary: Marleni called and wants to move her appts on Friday. Wanted to make sure this is ok before cancelling. Let me know. Message received from medical office secretary: Sorry I didn't speak with her when she originally called but I didspeak with her and she said she is sicker than a dog. She is nauseous, has a headache, and can't eat. She denies fever and chills. It started last night, she didn't get any sleep last night. Let me know how to proceed. S/O: Call placed to Marleni to discuss. Marleni thinks she contracted the stomach virus. Last nightshe starting having nausea with vomiting, diarrhea. She vomited 4 times last night and 3 times so far today. She has had 2 watery brown loose stools. No blood. Reports abd. Cramping however this is relieved after she throws up. She reports she is hungry, she just cant keep any food down. She is able to drink water and is keeping this down. She wasn't sure of the amount she is drinking. She is using a heating pad to help with the abd. Cramps and this is helping. Afebrile. Denies chills. Reports continued headache which she reported at her last visit. She was instructed to try tylenol however has had no relief. She has since tried excedrin and this helped with her headache. Denies visual changes. Denies any other symptoms or concerns. She would like to cancel her appointments that are coming up on 01/[address] West. Assessment: Patient of Dr. West with NSCLC who last received cycle #2 of cis/pem 12/07/19. Plan: Reviewed with Marleni since she is receiving Pemetrexed she should not take any NSAIDS and this includes Excedrin. Encouraged her to continue to use tylenol. Also encouraged Marleni to push PO fluids and drink Gatorade, powerade, pedilyte, gingerale, broth, popsicles, jello, etc to help keep her hydrated. Reviewed once she is able to tolerate food she should follow a bland diet. Reviewed with Marleni we are hoping this is a 24 hour virus and she should start feeling better in the next 1-2days. Encouraged her to keep her appointment on 01/04 and we will call her on 01/03 to assess her symptoms and if still not well, we can cancel them at that time. She was comfortable with this plan and verbalized understanding. Encouraged her to call back should she have further questions or concerns. Dr. West updated on the above. documented in this encounter Plan of Treatment Not on file documented as of this encounter Visit Diagnoses Not on filedocumented in this encounter Care Teams Lab Instructor Relationship Specialty Start Date End Date Kathy Wright APRN PCP - General Family Medicine 04/22/19 documented as of this encounter
--- OUTSIDE RECORDS SUMMARY | 2024-06-24 01:10 | XMS_ITS | Encounter Summary ---
[place] [address] Care Team Providers Care Mirror Specialist Name Role Phone Kathy Wright MARÍA Primary Care Provider [phone] Encounter Details Date Type Department Care Team (Late st Contact Info) Description 11/09/2019 Notes Only Hematology [place] [address] Maame Can, RN Social History Tobacco Use Types Packs/Day [...] as of this encounter Progress Notes * Maame Can, RN - 11/09/2019 3:04 PM EST RESEARCH NURSE INFORMED CONSENT NOTE ?? Farzana [id number],Adjuvant Lung Cancer Enrichment Marker Identification and Sequencing Trial ?? Date:??11/09/19 ?? Objective of visit: Meet with the patient??in clinic to perform the On- Study:Epidemiology questionnaire. I also answer questions or concerns about study plan and evaluated interest in study participation. ?? Information Provided: Dr. West obtained consent from patient. Marleni??was advised that she may discontinue treatment at any time and that refusing to participate or discontinuing treatment will not compromise the patient???s access to treatment options or care. ? Assessment/Outcome: Marleni verbalized understanding of protocol and consents for treatment. ??Patient signed and datedconsent, copy given to patient. ?? Original, signed inforrmed consent document and questionaire given to YODIT Licea for scanning??into patient???s electronic medical record. ?? Written informed consent was obtained prior to any study procedures being done. ?? Plan: 1. ??Pt enrolled on study??[id number]?? 2.?Tissue samples will be sent as per protocol?? 3. ??Lab kit will be obtained when patient returns to clinic on 11/15/19 in [facility]. ?? documented in this encounter Plan of Treatment Not on file documented as of this encounter Visit Diagnoses Not on filedocumented in this encounter Care Teams Mirror Specialist Relationship Specialty Start Date End Date Kathy Wright, REPRODUCTION SPECIALIST PCP - General Family Medicine 04/22/19 documented as of this encounter
--- OUTSIDE RECORDS SUMMARY | 2024-06-24 01:10 | XMS_ITS | Encounter Summary ---
Author Organization [facility] [address] Care Team Providers Care Csm Consultant Name Role Phone GerardoKathy nicolas Butch DANIEL Primary Care Provider [phone] Reason for Visit * Reason Comments Chemotherapy * Treatment/Therapy Plan Authorization (Routine) - Closed Specialty Diagnoses / Procedures Referred By Janie cassidy Referred To Contact Hematology and Oncology Diagnoses Non-small cell lung cancer, right Procedures TC PALONOSETRON HCL, 25MCG, INJECTION (ALOXI) TC APREPITANT, 1 MG, INJECTION TC PEMETREXED, 10MG, INJECTION (ALIMTA) TC CARBOPLATIN, 50MG, INJECTION (PARAPLATIN) Toño West MD [facility] [place] [address] [facility] [address] [place] [address] Referral ID Status Reason Start Date Expiration Date Visits Re quested Visits Authorized [id number] Closed 12/28/2019 12/27/2020 12 12 Encounter Details Date Type Department Care Team (Latest Contact Info) Description 01/04/2020 8:29 AM EST - 01/04/2020 11:59 PM EST Hospital Encounter Hematology [place] [address] Non-small cell lung cancer, right [...] Take 20 mg by mouth daily. 01/30/2010 magnesium oxide (MAG-OX) 400 mg (241.3 mg [...] as of this encounter Progress Notes * Gabby Chaudhry, RN - 01/04/2020 2:57 PM EST Patient Name: Marleni Arreola Patient Age: 59 y.o. Birthdate: 1960 Admit date: 01/04/2020 Attending Physician: No att. providers found TIME TREATMENT STARTED: 1115 TIME TREATMENT ENDED: 1300 Marleni Arreola, 59 y.o. female with diagnosis of NSCLC is here for chemotherapy infusion of Alimta/Carbo. PROTOCOL: NA CYCLE: 1 WEEK: NA DAY: 1 S: Pt. offers no complaints at this time. O: Chemotherapy orders independently verified for correct drug name, route and dosage per patient'sheight, weight and BSA by Gabby Chaudhry RN and onsite pharmacist REACTIONS (DESCRIPTION, TIME, INTERVENTION AND EFFECTIVENESS) None A: Pt. Tolerated treatment well. Marleni Arreola confirms that all questions and issues have been addressed. P: Return to clinic per routine documented in this encounter Plan of Treatment Not on file documented as of this encounter Results * Lactate Dehydrogenase (01/04/2020 8:38 AM EST) LDH Not Perf 110 - 220 [facility] Comment:Unable to quantitate due to sample hemolysis. Sample redraw suggested. Blood specimen (specimen) 01/04/2020 8:38 AM EST 01/04/2020 8:47 AM EST Narrative Resulting Agency Comment Spec In Lab Toño West MD CHEMISTRY ORDERA BLES [facility] [place] [address] * (ABNORMAL) Comprehensive metabolic panel (non-fasting) (01/04/2020 8:38 AM EST) Glucose Lvl 98 65 - 199 mg/dL [facility] Comment:Diabetes: >=200 mg/d L plus symptoms BUN 24(H) 8 - 18 mg/dL [facility] Creatinine 1.18 0.70 - 1.20 mg/dL [facility] Sodium 138 135 - 145 mmol/L [facility] Potassium 4.0 3.5 - 5.0 mmol/L [facility] Comment: Please note: ??Patients with WBC >100,000 may have falsely elevated Potassium levels. ??For accurate Potassium quantification in these patients send serum separator tube (gold top) for subsequent determinations. ??Contact the Clinical Chemistry Laboratory if there are any questions. Chloride 102 98 - 107 mmol/L [facility] CO2 21(L) 22 - 31 mmol/L [facility] Anion Gap 15 5 - 15 mmol/L [facility] Calcium 9.4 8.5 - 10.5 mg/dL [facility] Total Protein 7.1 6.1 - 8.0 gm/dL [facility] Albumin 4.0 3.2 - 5.2 gm/dL [facility] AST 23 0 - 30 unit/L [facility] ALT 19 0 - 30 unit/L [facility] Alk Phos 126(H) 35 - 105 unit/L [facility] Total Bilirubin 0.2 0.2 - 1.3 mg/dL [facility] Estimated GFR 50(L) >=60 mL/min/1. 73 m?? [facility] Comment: The eGFR was calculated using the CKD-EPI equation. As with all creatinine based estimates of kidney function, eGFR values calculated with the CKD-EPI equation are not accurate in patients with acute kidney failure, extremes of body mass or the acutely ill. http://Epoch/[facility] eGFR 58(L) >=60 mL/min/1. 73 m?? [facility] Comment: The eGFR was calculated using the CKD-EPI equation. As with all creatinine based estimates of kidney function, eGFR values calculated with the CKD-EPI equation are not accurate in patients with acute kidney failure, extremes of body mass or the acutely ill. [email or web address]/[facility] Blood specimen (specimen) 01/04/2020 8:38 AM EST 01/04/2020 8:47 AM EST Narrative Resulting Agency Comment Spec In Lab Toño West MD CHEMISTRY ORDERA BLES [facility] [place] [address] documented in this encounter Visit Diagnoses Diagnosis Non-small cell lung cancer, right documented in this encounter Administered Medications Inactive Administered Medications - up to 3 most recent administrations Medication Order MAR Action Action Date Dose Rate Site aprepitant (CINVANTI) injection Emul 130 mg 130 mg, Intravenous, Administer over 2 Minutes, ONCE, 1 dose, On Fri01/04/20 at 1115, Alternative administration of IV push over 2 minutes is a recommendation from the partition setter. Administer prior to chemotherapy., Routine Given 01/04/2020 11:21 AM EST 130 mg CARBOplatin (PARAPLATIN) 355 mg in dextrose 5% 285.5 mL chemo infusion 355 mg (rounded from 355.05 mg, Target AUC = 4.5), Intravenous, ONCE, 1 dose, On 01/04/20 at 1215, Administer over 30 Minutes, Hold Parameters: CARBOplatin, Call provider for serum creatinine less than (mg/dL): 0.6, Call provider for serum creatinine greater than (mg/dL): 1.4 New Bag 01/04/2020 12:21 PM EST 355 mg 571 mL/hr dexamethasone (DECADRON) injection 10 mg 10 mg, Intravenous, ONCE, 1 dose, On 01/04/20 at 1115, Administer prior to chemotherapy Given 01/04/2020 11:20 AM EST 10 mg palonosetron (ALOXI) injection 0.25 mg 0.25 mg, Intravenous, ONCE, 1 dose, On 01/04/20 at 1115, Administer over 30 seconds., Routine Given 01/04/2020 11:19 AM EST 0.25 mg PEMEtrexed (ALIMTA) 700 mg in sodium chloride 0.9% 128 mL chemo infusion 700 mg, Intravenous, ONCE, 1 dose, On 01/04/20 at 1215, Administer over 10 Minutes, Dose Ordered = 760 mg (450 mg/m2). Pharmacist rounded dose per procedure., , Incompatable with calcium containing IV products New Bag 01/04/2020 12:04 PM EST 700 mg 768 mL/hr documented in this encounter Care Teams Csm Consultant Relationship Specialty Start Date End Date Kathy Wright APRN PCP - General Family Medicine 04/22/19 documented as of this encounter
--- OUTSIDE RECORDS SUMMARY | 2024-06-24 01:10 | XMS_ITS | Encounter Summary ---
Author Organization [facility] Address [facility] [place] [address] Care Team Providers Care Rewrite Editor Name Role Phone Kathy Wright MARÍA Primary Care Provider [phone] Reason for Visit * Consultation (Urgent) - Closed Specialty Diagnoses / Procedures Referred By Janie cassidy Referred To Contact Radiation Oncology Diagnoses Nodule of lower lobe of right lung Primary adenocarcinoma of lower lobe of right lung Juan Ny MD [facility] [place] [address] Doyle Delvalle MD [address] [place] [address] [place] [address] Referral ID Status Reason Start Date Expiration Date V isits Requested Visits Authorized [id number] Closed Consult, Test & Treat 10/21/2019 10/20/2020 1 1 Encounter Details Date Type Department Care Team (Late st Contact Info) Description 11/29/2019 9:00 AM EST Office Visit Radiation Oncology at [address] [phone] Doyle Delvalle MD [address] [place] [address] [place] [address] Non-small cell lung cancer, right Social History [...] Sign Reading Time Taken Comments Blood Pressure 112/37 11/29/2019 8:00 AM EST Pulse 78 11/29/2019 8:00 AM EST Temperature 36.7 ??C (98.1 ??F) 11/29/2019 8:00 AM ES T Respiratory Rate 20 11/29/2019 8:00 AM EST Oxygen Saturation 100% 11/29/2019 8:00 AM EST Inhaled Oxygen Concentration - - Weight 65.9 kg (145 lb 3.2 oz) 11/29/2019 8:00 A M EST Height - - Body Mass Index 27.52 11/16/2019 8:58 AM EST documented in this encounter Patient Instructions * Patient Instructions* Doyle Delvalle MD - 11/29/2019 9:00 AM EST Dear Ms. Arreola, Dr. Ny asked for me to see you to discuss how radiation therapy can be used to treat your lung cancer and this note is to recap our discussion regarding use of radiation treatments. As your radiation oncologist, I work closely with your other healthcare providers and most importantly, with you to make sure that the treatments we discuss and offer keep your personal preferences and goals in mind. We discussed the following next steps as part of your cancer evaluation and/or treatment: ?? Radiation treatments for Stage 3 lung cancer: Because your lung cancer spread to a nearby lymph node, it is considered stage III. However because only a microscopic amount of cancer was seen in that lymph node, the role of radiation therapy is not totally clear. You have already met with Dr. West who has discussed the chemotherapy option. Our meeting today is to discuss the radiation option. In general when cancer spreads to lymph nodes there is a risk that could be more cancer nearby. However because only a very small amount of cancer was seen in your lymph node radiation may not provide much additional benefit although there is no way to be totally sure. Radiation after surgery alsohas lots of side effects including possible lung damage, heart damage and/or heartburn. Because of all this, my recommendation would be to keep a close eye on your chest with CAT scans. If we see signs of cancer coming back in your chest, we could give radiation at that time. ?? Other treatment options include: chemotherapy followed by radiation, chemotherapy with radiation, radiation without chemotherapy or neither treatment at all. Please do not hesitate to call me at [phone] with any other questions or concerns you have. IfI am not here, one of our radiation oncology nurses can assist you or help you get in touch with me. A Radiation Oncology doctor is also television writer after our normal hours and on weekends for urgent questions or concerns related to radiation treatments that can not wait until normal business hours. To reach the on-call doctor after-hours, just call and have the console operator page the Radiation Oncologist television writer. And, as always, if you experience any life-threatening emergencies which any include the following,you need to seek emergency care immediately by calling 911: 1. Sudden and unexpected breathing difficulty without any exertion 2. Sudden onset of chest pain 3. Sudden onset of severe pain or uncontrolled pain 4. Sudden onset of severe weakness and/or unable to walk 5. Sudden new onset of a seizure 6. Fall resulting in injury 7. Uncontrollable bleeding Doyle Epps MD [employer] Supervisorsalesperson jewelry Radiation Oncology [facility] documented in this encounter Progress Notes * Doyle Delvalle MD - 11/29/2019 9:00 AM EST Images from the original note were not included. Radiation Oncology Consult Note Doyle Delvalle MD, MS [facility] [phone] PATIENT IDENTIFICATION: PATIENT NAME: Marleni Arreola DATE OF : 1960 REFERRING PROVIDER: Juan Ny MD [facility] [place] [address] REASON FOR CONSULTATION : Cancer Staging Non-small cell lung cancer, right Staging form: Lung, AJCC 8th Edition - Clinical stage from 08/04/2019: Stage IA2 (cT1b, cN0, cM0) - Signed by Toño Wets MD on11/09/2019 - Pathologic: Stage IIIA (pT1b, pN2, cM0) - Signed by Toño West MD on 11/09/2019 HISTORY OF PRESENT ILLNESS: Marleni is a 59-year-old woman with a history of COPD and fibromyalgia who also suffers from repeated falls. She was diagnosed with what appeared to be a localized lung cancer in the setting of a fall last spring. CT of the chest 07/02/2018 showed an 1 cm nodule in the right lower lobe of the lung, later found to be FDG avid on PET/CT dated 08/04/2019. She was referred for surgery and underwent right basilar segmentectomy of the lower lobe along withmediastinal lymph node dissection. She was incidentally noted to have a single station of mediastinal node positive disease and a total of 12 examined lymph nodes. Isolated tumor cells were noted in the paraesophageal region over an extent of <0.1mm. Lung tumor itself was 1.6 cm in size and otherwise resected with widely negative margins. She is seen postoperatively by Dr. Ny who also presented her case at the lung tumor board 10/19/2019. Recommendations were for completion staging with a brain MRI as well as referrals to medical and radiation oncology for consideration of adjuvant therapies. She met Dr. West 11/09/2019 whois recommending adjuvant chemotherapy. Day1/Cycle1 of Cisplatin/Alimta was delivered on 11/16/19. She believes she has tolerated it fairly well, with expected side effects per below. She is referred today for consideration of adjuvant radiotherapy upon completion of chemotherapy. REVIEW OF SYSTEMS: REVIEW OF SYSTEMS 11/29/2019 Constitutional Weakness, Fatigue, lack of energy, Pain Ear / nose / throat / mouth Nose bleeds, Dry mouth, Sore throat Eyes Blurry vision Respiratory Cough, Shortness of breath Cardiovascular None of the above Gastrointestinal Nausea, vomiting, Appetite problems Skin, hair Dry skin, Itching, Loss of hair Musculoskeletal Back pain Neurological Balance difficulty, dizziness, Headaches Hematologic / Lymphatic Easy bruising or bleeding Genitourinary Burning or painful urination, Decreased urinary flow Most of the symptoms reported above are related to chemotherapy, she thinks. She reports no dyspneaat rest, but with minor exertion (e.g. getting dressed) she will feel short of breath. This is helped by her inhalers. She has a dry cough primarily at night time. Tessalon helps with this this - shetakes it 3 times daily, as well as cough drops. A comprehensive 14 point review of systems was conducted with this patient and is otherwise negative except as documented above. This patient reported questionnaire is available for review in 'scanned documents.' PAST MEDICAL AND SURGICAL HISTORY: Past Medical History: Diagnosis Date ??? Chronic pain fibromyalgia ??? COPD (chronic obstructive pulmonary disease) COPD-wel controlled ??? Fibromyalgia ??? Gastroesophageal reflux takes antacids for which controls ??? High blood pressure controllled with medications ??? Motion sickness only on a boat ??? Non-small cell lung cancer, right 11/09/2019 ??? Vertigo for 2 weeks-w/u neg-uses a cane to be steady Past Surgical History: Procedure Laterality Date ??? PRO BRONCHOSCOPY, DIAGNOSTIC N/A 10/06/2019 BRONCHOSCOPY, DIAGNOSTIC (WRVU 2.78) performed by Juan Ny MD at [facility] MAIN OR ??? PRO INJECT NERV BLCK, INTERCOST, MULTPL Right 10/06/2019 NERVE BLOCK, INTERCOSTAL NERVE, MULTIPLE (WRVU 1.68) performed by Juan Ny MD at [facility] MAIN OR ??? PRO THORACOSCOPY SURG LOBECTOMY Right 10/06/2019 @ROBOT XI THORACOSCOPY,SURGICAL,W\LOBECTOMY,TOTAL OR SEGMENTAL (WRVU 24.64) performed by Juan Ny MD at [facility] MAIN OR ??? PRO THORACOSCOPY WITH MEDIASTINAL AND REGIONAL LYMPHADENECTOMY Right 10/06/2019 @ROBOT XI THORACOSCOPY,SURG; W/MEDIASTINAL& REGIONAL LYMPHADENECTOMY (WRVU 4.12) performed by Juan Ny MD at [facility] MAIN OR ??? PRO THORACOSCOPY WITH WEDGE RESECTION AND ANATOMIC LUNG RESECTN Right 10/06/2019 @ROBOT XI THORACOSCOPY,SURG; W/DX WEDGE RESC W/ANATOMIC LUNG RESC (WRVU 3) performed by Juan Ny MD at [facility] MAIN OR CONTRAINDICATIONS TO RADIATION THERAPY: None Prior Radiation to this Site: No Active Connective Tissue Disease (Lupus or Scleroderma) No No MEDICATIONS / ALLERGIES Medications 11/29/19 0936 Medication Sig Taking? magnesium oxide (MAG-OX) 400 mg (241.3 mg magnesium) Tablet Take 1 tablet by mouth daily. Yes diphenhydrAMINE/aluminum-magnesium hydroxide with simethicone/lidocaine (BMX) (6.67 mg-0.83 mg-13.33 mg-.33 mg/mL) oral liquid Take 5 mLs by mouth 4 times daily. Yes benzonatate (TESSALON) 100 mg Capsule Take 1 capsule by mouth 3 times daily as needed for Cough. Yes ondansetron (ZOFRAN) 4 mg Tablet Take 1 tablet by mouth every 8 hours as needed for Nausea. Yes gabapentin (NEURONTIN) 100 mg Capsule Take 1 capsule by mouth 3 times daily as needed. Yes acetaminophen (TYLENOL) 500 mg Tablet Take 2 tablets by mouth every 6 hours. Yes amitriptyline (ELAVIL) 100 mg Tablet 1 tablet nightly. Yes enalapril-hydrochlorothiazide (VASERETIC) 10-25 mg Tablet 1 tablet daily. Yes buPROPion (WELLBUTRIN) 100 mg Tablet 1 tablet daily. Yes cholecalciferol, Vitamin D3, 1,000 unit Tablet 1,000 Units daily. Yes clonazePAM (KLONOPIN) 0.5 mg Tablet 1 tablet nightly as needed. Yes cloNIDine (CATAPRES) 0.1 mg Tablet 1 tablet daily. Yes FLOVENT HFA 110 mcg/actuation HFA Aerosol Inhaler 2 puffs 2 times daily as needed. Yes levothyroxine (SYNTHROID) 100 mcg Tablet 1 tablet daily. Yes metoprolol tartrate (LOPRESSOR) 50 mg Tablet 1 tablet 2 times daily. Yes Ranitidine HCl (ZANTAC) 300 mg Capsule 1 capsule nightly. Yes albuterol 90 mcg/actuation HFA Aerosol Inhaler Inhale 2 puffs into the lungs every 4 hours as needed for Wheezing. Use with spacer Yes omeprazole (PRILOSEC) 40 mg capsule Yes docusate sodium (COLACE) 100 mg Capsule Take 1 capsule by mouth 3 times daily. Patient not taking: Reported on 10/21/2019 senna (SENOKOT) 8.6 mg Tablet Take 2 tablets by mouth every evening. Patient not taking: Reported on 11/09/2019 SOCIAL HISTORY: [place]: [facility] Living Situation: By herself - she has family support close by Transit time to [facility]: 10 minutes Employment history: On disability since 2013 - rotator cuff tear from workplace injury Smoking: Quit 08/2019 at time of diagnosis Alcohol denies Illicits: denies FAMILY HISTORY: Family History Problem Relation Age of Onset ??? Lung Cancer Neg Hx PHYSICAL EXAM BP (!) 112/37 Pulse 78 Temp 36.7 ??C (98.1 ??F) Resp 20 Wt 65.9 kg (145 lb 3.2 oz) SpO2 100% BMI 27.52 kg/m?? General: alert, appears older than stated age, and in no distress sitting in exam room alone. Resp: clear bilaterally TODAY'S PERFORMANCE STATUS: KPS Score ECOG Grade Definition 90-100 0 Fully active, able to carry on all pre-disease performance without restriction X 70-80 1 Restricted in physically strenuous activity but ambulatory and able to carry out work of a light or sedentary nature, e.g., light house work, office work 50-60 2 Ambulatory and capable of all selfcare but unable to carry out any work activities; up and about more than 50% of waking hours 30-40 3 Capable of only limited selfcare; confined to bed or chair more than 50% of waking hours 10-20 4 Completely disabled; cannot carry on any selfcare; totally confined to bed or chair IMAGING REVIEW: PET/CT 08/04/19 1cm FDG-avid RLL nodule Intermission Coordinator Images: PATHOLOGY REVIEW: Source: RLL segmentectomy Provider / Location: Dr Ny / [facility] [place] Date: 10/06/19 Histology / Grade Adenocarcinoma, predominantly acinar pattern with focal micropapillary??growth Other TPS 5% Metastatic adenocarcinoma in 1/12 lymph nodes (station 8R), present as isolated tumor cells (<0.1 mm). ASSESSMENT / PLAN: Marleni is a 59 year old former smoker incidentally diagnosed with a stage III adenocarcinoma of the right lower lobe. She had stage I disease based on all presurgical testing, and stage III diagnosis was based on a dissected solitary lymph node involving isolated tumor cells. I discussed with Marleni today that radiation therapy for N2 disease is somewhat controversial, andthat in the situation of incidentally detected regionally metastatic disease I do not feel stronglythat the benefits of treatment outweigh the risks, including potential pulmonary, cardiac or esophageal toxicity. Marleni was very reassured to hear this, as she was not particularly enthusiastic about postoperative radiotherapy herself. She does plan to continue with chemotherapy as planned, and I reinforced the appropriateness of this decision given the stage III nature of her disease. I also discussed that if upon close surveillance she is found to have a mediastinal recurrence, radiotherapy would be recommended at that time. No further follow-up will be scheduled. All of Marleni's questions were answered to her fullest satisfaction, and we have provided her withour contact information should any further questions or concerns arise. SUMMARY OF PLAN / RECOMMENDATION: 1. Intent of therapy: Curative / Postop 2. Clinical Trial Availability: Yes - Alchemist per Dr West 3. No radiation therapy recommended at this time TIME ATTESTATION: At least 40 minutes of this 60 minute visit was spent with the patient [id number] reviewing her interval medical history and answering questions related to her lung cancer. DOYLE DELVALLE MD, MS * Danuta Viramontes RN - 11/29/2019 9:00 AM EST RADIATION ONCOLOGY NURSING INITIAL NURSING ASSESSMENT IDENTIFICATION: Marleni Arreola is a 59 y.o. year-old female with lung ca PRESENTING SYMPTOMS/CHIEF COMPLAINT: freq nonproductive cough REVIEW OF SYSTEMS: Review of Systems - Oncology REVIEW OF SYSTEMS 11/29/2019 Constitutional Weakness, Fatigue, lack of energy, Pain Ear / nose / throat / mouth Nose bleeds, Dry mouth, Sore throat Eyes Blurry vision Respiratory Cough, Shortness of breath Cardiovascular None of the above Gastrointestinal Nausea, vomiting, Appetite problems Skin, hair Dry skin, Itching, Loss of hair Musculoskeletal Back pain Neurological Balance difficulty, dizziness, Headaches Hematologic / Lymphatic Easy bruising or bleeding Genitourinary Burning or painful urination, Decreased urinary flow Non productive cough, relieved by tessalon Perls. SOB even with getting dressed. [facility] - Housing 11/29/2019 What is your housing situation today??? I have housing?? Think about the place you live. Do you have problems with any of the following? None of the above?? [facility] - Financial Strain 11/29/2019 How hard is it for you to pay for the very basics like food, housing, heating, medical care, and medications? Very hard What do you have trouble paying for? Food, Utility bills (electric, etc.), Medical needs (medicines, doctor, etc), Debts [facility] - Education 11/29/2019 Do you ever need help reading health related materials? No [facility] - Social Connections 11/29/2019 Have someone to call if need help Yes [facility] - Transportation 11/29/2019 In the past 12 months, has lack of transportation kept you from medical appointments, meetings, work or from getting things needed for daily living? Yes, it has kept me from non-medical meetings, appointments, work, or getting things that I need??, No [facility] - Employment 11/29/2019 What was your main activity during most of the last 12 months? Permanently unable to work [facility] - Legal 11/29/2019 Do you have any legal issues that are getting in the way of your health or healthcare? No [facility] -Interpersonal Safety 11/29/2019 In the last 12 months, are you or have you been threatened or abused physically, emotionally or sexually by a partner, spouse or family member? No [facility] - Level of Support 11/29/2019 Confidence in managing essential needs Somewhat confident Level of Support I would like help IN THE PAST 12 MONTHS HAVE YOU: Fallen more than one time? No Injured yourself as result of the fall? No Experienced difficulty with walking/problems with balance? Yes Do you use any assistive devices? Yes, cane. Also helps with chronic back pain Any history of collagen vascular diseases:No Any Implanted Devices/Hardware: Yes Screws in left shoulder from rotator cuff repair. If yes please put alert in ARIA patient summary Prior Radiotherapy: No Prior Chemotherapy: Yes Prior Hormone Therapy: N/A LEARNING ASSESSMENT REVIEWED: Yes ADVANCED DIRECTIVE: Not discussed today. PAIN ASSESSMENT: [0] out of 10 *eD-H Adult PCS Flow Sheet if 4 or above SOCIAL ASSESSMENT: See ED social assessment information entered. Support Systems: lives alone, has supportive son Barriers to treatment: financial and transportation. Uses RCT. Referrals/Interventions: social media marketing manager RADIATION SPECIFIC TEACHING:Will provide the following information on simulation day [facility] and You Site specific teaching :chest PLAN: Per Dr Delvalle's note documented in this encounter Plan of Treatment Scheduled Referrals Name Type Priority Associated Diagnoses Orde r Schedule Referral to Radiation Oncology Outpatient Referral Routine Nodule of lower lobe of right lung Primary adenocarcinoma of lower lobe of right lung Ordered: 10/21/2019 documented as of this encounter Visit Diagnoses Diagnosis Non-small cell lung cancer, right documented in this encounter Care Teams Rewrite Editor Relationship Specialty Start Date End Date Kathy Wright, MARÍA PCP - General Family Medicine 04/22/19 documented as of this encounter
--- OUTSIDE RECORDS SUMMARY | 2024-06-24 01:10 | XMS_ITS | Encounter Summary ---
Author Organization [facility] [place] [address] Care Team Providers Care Senior Technical Editor Name Role Phone Kathy Wright APRN Primary Care Provider [phone] Encounter Details Date Type Department Care Team (Late st Contact Info) Description 01/13/2020 Orders Only Hematology [place] [address] Adrienne Mendez APRN [facility] [place] [address] Non-small cell lung cancer, right Social History [...] right documented in this encounter Care Teams Senior Technical Editor Relationship Specialty Start Date End Date Katyh Wright APRN PCP - General Family Medicine 04/22/19 documented as of this encounter
--- OUTSIDE RECORDS SUMMARY | 2024-06-24 01:10 | XMS_ITS | Encounter Summary ---
Author Organization [facility] [place] [address] Care Team Providers Care Bander Operator Name Role Phone GerardoKathy nicolas Butch DANIEL Primary Care Provider [phone] Reason for Visit * Reason Comments Chemotherapy Cycle 2 Day 1 Cispla tin/Alimta * Treatment/Therapy Plan Authorization (Routine) - Closed Specialty Diagnoses / Procedures Referred By Janie cassidy Referred To Contact Hematology and Oncology Diagnoses Non-small cell lung cancer, right Procedures TC PALONOSETRON HCL, 25MCG, INJECTION (ALOXI) TC APREPITANT, 1 MG, INJECTION TC PEMETREXED, 10MG, INJECTION (ALIMTA) TC CISPLATIN, POWDER OR SOLUTION, 10MG, INJECTION Toño West MD [facility] [place] [address] [facility] [address] [place] [address] Referral ID Status Reason Start Date Expiration Date Visits Re quested Visits Authorized [id number] Closed 11/09/2019 11/08/2020 12 12 Encounter Details Date Type Department Care Team (Late st Contact Info) Description 12/07/2019 9:30 AM EST Infusion Hematology Oncology at [address] [id number] Non-small cell lung cancer, right Social History [...] Sign Reading Time Taken Comments Blood Pressure 116/54 12/07/2019 9:25 AM EST Pulse 89 12/07/2019 9:25 AM EST Temperature 37.1 ??C (98.7 ??F) 12/07/2019 9:25 AM ES T Respiratory Rate 18 12/07/2019 9:25 AM EST Oxygen Saturation 99% 12/07/2019 9:25 AM EST Inhaled Oxygen Concentration - - Weight 64.9 kg (143 lb) 12/07/2019 9:25 AM EST Height 154.7 cm (5' 0.91) 12/07/2019 9:25 AM ES T Body Mass Index 27.1 12/07/2019 9:25 AM EST documented in this encounter Progress Notes * Andra Sanders RN - 12/07/2019 9:30 AM EST INFUSION THERAPY ADMINISTRATION NOTES DIAGNOSIS: Lung cancer VISIT REASON: Cisplatin/Alimta infusions SUBJECTIVE Marleni offers no complaints. OBJECTIVE LAB DATA: WBC 6.87, HGB 12.5, PLTS 482, ANC 3.31, Creat 1.30 IV ACCESS: PIV right wrist. Pre administration: Chemotherapy orders independently verified for drug name, route, and dosage per patient's height, weight and BSA by Jermaine Sanders RN & Rj Glez [facility]. Prior to administration of Cisplatin, Marleni voided 300 cc of urine. REACTIONS (DESCRIPTION, TIME, INTERVENTION AND EFFECTIVENESS) none ASSESSMENT Marleni was awake, alert and tolerated treatment well. Post Cisplatin infusion Marleni voided 300ccof urine. PLAN Return to clinic per routine. documented [...] over 2 Minutes, ONCE, 1 dose, On Fri12/07/19 at 1130, Alternative administration of IV push over 2 minutes is a recommendation from the ladies suit operator. Administer prior to chemotherapy., Routine Given 12/07/2019 11:32 AM EST 130 mg CISplatin (PLATINOL) 100 mg in sodium chloride 0.9% 600 mL chemo infusion 100 mg (rounded from 100.2 mg = 60 mg/m2/dose ? 1.67 m2 Treatment Plan BSA from Recorded weight), Intravenous, ONCE, 1 dose, On Fri12/07/19 at 1245, Administer over 120 Minutes New Bag 12/07/2019 1:48 PM EST 100 mg 300 mL/hr dexamethasone (DECADRON) injection 10 mg 10 mg, Intravenous, ONCE, 1 dose, On Fri12/07/19 at 1130, Administer prior to chemotherapy Given 12/07/2019 11:37 AM EST 10 mg magnesium sulfate 1g in dextrose 5% 100mL 1 g, Intravenous, EVERY HOUR, 2 doses, First dose on Fri12/07/19 at 1330, Last dose on Fri12/07/19 at 1400, Administer over 60 Minutes, Total dose is 2 grams. Post - CISplatin New Bag 12/07/2019 2:40 PM EST 1 g 100 m L/hr New Bag 12/07/2019 1:45 PM EST 1 g 100 mL/hr palonosetron (ALOXI) injection 0.25 mg 0.25 mg, Intravenous, ONCE, 1 dose, On Fri12/07/19 at 1130, Administer over 30 seconds., Routine Given 12/07/2019 11:33 AM EST 0.25 mg PEMEtrexed (ALIMTA) 800 mg in sodium chloride 0.9% 132 mL chemo infusion 800 mg, Intravenous, ONCE, 1 dose, On Fri12/07/19 at 1230, Administer over 10 Minutes, Incompatable with calcium containing IV products, Dose Ordered = 835 mg (500 mg/m2). Pharmacist rounded dose per procedure. New Bag 12/07/2019 12:55 PM EST 800 mg 792 mL/hr potassium chloride 10 mEq in 100 mL 10 mEq, Intravenous, EVERY HOUR, 2 doses, First dose on Fri12/07/19 at 1330, Last dose on Fri12/07/19 at 1400, Administer over 60 Minutes, Warning Vesicant/Irritant Medication Post-Cisplatin New Bag 12/07/2019 2:41 PM EST 10 mEq 100 mL/hr New Bag 12/07/2019 1:46 PM EST 10 mEq 100 mL/hr sodium chloride 0.9% infusion 1,000 mL, at 500 mL/hr, Intravenous, CONTINUOUS, Starting on Fri12/07/19 at 1130, Until Fri12/07/19 at 1329, Pre CISplatin New Bag 12/07/2019 9:47 AM EST 1,000 mLs 500 mL/hr sodium chloride 0.9% infusion 500 mL/hr, Intravenous, CONTINUOUS, Starting on Fri12/07/19 at 1330, Until Fri12/07/19 at 1529, Post-Hydration, Y-site with KCl IVPBs. New Bag 12/07/2019 1:45 PM EST 500 mL/hr 500 mL/hr documented in this encounter Care Teams Bander Operator Relationship Specialty Start Date End Date Kathy Wright, ENDOSCOPIC TECHNICIAN PCP - General Family Medicine 04/22/19 documented as of this encounter
--- OUTSIDE RECORDS SUMMARY | 2024-06-24 01:10 | XMS_ITS | Encounter Summary ---
Author Organization [facility] Address [facility] [place] [address] Care Team Providers Care Diesel Dragline Operator Name Role Phone GerardoKathy nicolas Butch DANIEL Primary Care Provider [phone] Reason for Visit * Reason Comments Lung Cancer * Consultation (Urgent) - Closed Specialty Diagnoses / Procedures Referred By Janie cassidy Referred To Contact Hematology and Oncology Diagnoses Nodule of lower lobe of right lung Primary adenocarcinoma of lower lobe of right lung Juan Ny MD [facility] [place] [address] [facility] Hem Onc [address] [place] [address] Referral ID Status Reason Start Date Expiration Date V isits Requested Visits Authorized [id number] Closed Consult, Test & Treat 10/21/2019 10/20/2020 1 1 Encounter Details Date Type Department Care Team (Late st Contact Info) Description 11/09/2019 10:15 AM EST Office Visit Hematology [place] [address] Toño Zuluaga MD [facility] [place] [address] Adrienne Mendez APRN [facility] DR HEMATOLOGY[place] [address] Primary malignant neoplasm of right lower lobe of lung; Non-small cell lung cancer, right Social History [...] Sign Reading Time Taken Comments Blood Pressure 118/71 11/09/2019 10:16 AM EST Pulse 89 11/09/2019 10:16 AM EST Temperature 36.9 ??C (98.4 ??F) 11/09/2019 10:[address] Respiratory Rate 18 11/09/2019 10:16 AM EST Oxygen Saturation 99% 11/09/2019 10:16 AM EST Inhaled Oxygen Concentration - - Weight 65.1 kg (143 lb 9.6 oz) 11/09/2019 10:16 AM EST Height 154.7 cm (5' 0.91) 11/09/2019 10:[address] Body Mass Index 27.22 11/09/2019 10:16 AM EST documented in this encounter Progress Notes * Yanira Perez N - 11/09/2019 10:15 AM EST Images from the original note were not included. Oncology New Patient Visit Reason for visit: Newly diagnosed stage IIIa lung cancer Patient prefers to be called: Marleni HISTORY OF PRESENT ILLNESS: In brief, the patient is a 59 y/o woman with a PMH notable for COPD, fibromyalgia and falls who presents to the Thoracic Oncology clinic unaccompanied, with newly diagnosed stage IIIa (pT1bN2) lung cancer. Per review of the patient's records, she suffered a fall earlier this year, after which she underwent a??CT Abd/Pelvis??(performed 04/18/19) that revealed??colitis, acute burst fracture of L1, as wellas 16 mm focal opacity of RLL.??A dedicated??CT Chest was performed??07/02/18??which demonstrated stable jxyb-wj-wceq nodules in the RLL, largest measuring 9 x 10 mm. PET was then performed??08/04/19??which revealed the 13 mm RLL nodule to be FDG avid, with no other suspected sites of involvement.??Shewas??referred to thoracic surgery for further??diagnostic work up and management. She ultimately underwent right basilar segmentectomy of the lower lobe and mediastinal lymph node dissection (10/06/2019). Her pathologic diagnosis determined to be pT1bN2 (stage IIIa). Today she reports that se has been feeling 'ok,' though notes some increased chest pain around her surgical site. It is worst when she is coughing. The pain is present all the time. Applying a heat pad helps with the pain. She additionally endorses shortness of breath, particularly MEHTA. She describes having a low appetite and some weight loss. ROS A 10 point ROS was obtained and negative aside from what is described above/in HPI. PMHX: Patient Active Problem List Diagnosis ??? COPD (chronic obstructive pulmonary disease) ??? Mixed anxiety and depressive disorder ??? Lung nodule ??? Dizziness ??? Closed compression fracture of body of L1 vertebra PSHX: Past Surgical History: Procedure Laterality Date ??? PRO BRONCHOSCOPY, DIAGNOSTIC N/A 10/06/2019 BRONCHOSCOPY, DIAGNOSTIC (WRVU 2.78) performed by Juan Ny MD at [facility] MAIN OR ??? PRO INJECT NERV BLCK, INTERCOST, MULTPL Right 10/06/2019 NERVE BLOCK, INTERCOSTAL NERVE, MULTIPLE (WRVU 1.68) performed by Juan Ny MD at [facility] MAIN OR ??? PRO THORACOSCOPY SURG LOBECTOMY Right 10/06/2019 @ROBOT XI THORACOSCOPY,SURGICAL,W\LOBECTOMY,TOTAL OR SEGMENTAL (WRVU 24.64) performed by Juan Ny MD at [facility] MAIN OR ??? PRO THORACOSCOPY WITH MEDIASTINAL AND REGIONAL LYMPHADENECTOMY Right 10/06/2019 @ROBOT XI THORACOSCOPY,SURG; W/MEDIASTINAL& REGIONAL LYMPHADENECTOMY (WRVU 4.12) performed by Juan Ny MD at [facility] MAIN OR ??? PRO THORACOSCOPY WITH WEDGE RESECTION AND ANATOMIC LUNG RESECTN Right 10/06/2019 @ROBOT XI THORACOSCOPY,SURG; W/DX WEDGE RESC W/ANATOMIC LUNG RESC (WRVU 3) performed by Juan Ny MD at [facility] MAIN OR MEDS: Current Outpatient Medications on File Prior to Visit Medication Sig Dispense Refill ??? acetaminophen (TYLENOL) 500 mg Tablet Take 2 tablets by mouth every 6 hours. 120 tablet 1 ??? amitriptyline (ELAVIL) 100 mg Tablet 1 tablet nightly. 1 ??? enalapril-hydrochlorothiazide (VASERETIC) 10-25 mg Tablet 1 tablet daily. 5 ??? buPROPion (WELLBUTRIN) 100 mg Tablet 1 tablet daily. ??? cholecalciferol, Vitamin D3, 1,000 unit Tablet 1,000 Units daily. ??? clonazePAM (KLONOPIN) 0.5 mg Tablet 1 tablet as needed. 3 ??? cloNIDine (CATAPRES) 0.1 [...] spacer ??? omeprazole (PRILOSEC) 40 mg capsule ??? oxyCODONE (ROXICODONE) 5 mg Tablet Take 1 tablet by mouth every 4 hours as needed for Pain. (Patient not taking: Reported on 11/09/2019) 15 tablet 0 ??? docusate sodium (COLACE) 100 mg Capsule Take 1 capsule by mouth 3 times daily. (Patient not taking: Reported on 10/21/2019) 90 capsule 1 ??? senna (SENOKOT) 8.6 mg Tablet Take 2 tablets by mouth every evening. (Patient not taking: Reported on 11/09/2019) 60 tablet 1 No current facility-administered medications on file prior to visit. Allergies: Allergies Allergen Reactions ??? Cis Free Text Allergy COMBID. ??? Isopropamide ??? 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 Body surface area is 1.67 meters squared. GENERAL: Marleni Arreola appears well and is in no acute distress. ENT: Oral pharynx clear. EYES: DIO NECK: Supple without adenopathy. AXILLARY: no adenopathy INGUINAL LN: no adenopathy OTHER LYMPH: no adenopathy CARDIAC: Regular rate and rhythm without S3,S4 or murmurs. LUNGS: Clear to auscultation./percussion ABDOMEN: Soft and non-tender without hepatosplenomegaly or masses. EXTREMITIES: No cyanosis, clubbing, edema or calf tenderness. SKIN: No bruises or petechiae. NEUROLOGICAL: Alert and oriented to person, place and time. MUSCULOSKELETAL: No spinal or chest wall tenderness. LABORATORY STUDIES No results found for this or any previous visit (from the past 72 hour(s)). PATHOLOGY Tissue: ??Lung, right lower lobe posterior, wedge resection Diagnosis: ??Adenocarcinoma, predominantly acinar pattern with focal micropapillary ??growth Tumor Proportion Score (TPS): 5% Procedure: ??Wedge resection; ??Completion lobectomy Specimen Laterality: ?? Right Tumor ?Tumor Site: ??Lower lobe of lung - Posterior ?Histologic Type: ?? Invasive adenocarcinoma, acinar predominant with focal ? micropapillary pattern ?Tumor Size: ?? 1.6 cm ?Tumor Focality: ?? Single tumor ?Visceral Pleura Invasion: ?? Not identified ?Direct Invasion of Adjacent Structures: ?No adjacent structures present ?Treatment Effect: ?? No known presurgical therapy ?Lymphovascular Invasion: ?? Present Margins ?Margins: ??All margins are uninvolved by tumor ? Margins Examined: ?? Bronchial, Vascular, Parenchymal ? Distance of Invasive Carcinoma from Closest Margin (Centimeters): ? At ?least 3.3 cm ?Closest Margin: ?? Parenchymal Lymph Nodes ?Number of Lymph Nodes Involved: ?1 ?Connie Stations Involved: ?? 8R: ??1/2, isolated tumor cells ?Number of Lymph Nodes Examined: ?12 ?Connie Stations Examined: ?? 4R: ??0/3, 10R: ??0/2, 12R: ??0/3, 7: ??0/2 Pathologic Stage Classification (pTNM, AJCC 8th Edition) ?Primary Tumor (pT): ?? pT1b NGS panel returned + for KRAS mutation RADIOLOGY STUDIES REVIEWED: CT chest w/o contrast (07/02/2019) IMPRESSION Stable vecy-hh-wrjt nodules in the right lower lobe, the largest of which measures 9 x 10 mm. Fatty infiltration liver. Progressive sclerosis and height loss at site of L1 burst fracture with stable fragment retropulsion. PET CT (08/04/2019) IMPRESSION 1. FDG avid 13 mm right lower lobe nodule, concerning for malignancy. 2. No regional connie or suspected distant metastases. 3. Increased activity at the superior endplate of the known L1 burst fracture, anatomically stable in appearance and alignment compared to 07/27/[address] chest w/ contrast (09/16/2019) 15 mm right lower lobe pulmonary nodule has been present dating back to April 18, [address] ([address]), but remains concerning for a slow-growing pulmonary malignancy in this patient with smoking history. ?? 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 Accessory ostium draining a confluence of a posterior right upper lobe and apicalright lower lobe pulmonary vein. ?? Hepatic steatosis. Atrophy of the right kidney. ASSESSMENT: Marleni is a 59 y/o woman with PMH noted above who presents to the Thoracic Oncology clinic with newly diagnosed stage IIIa NSCLC after being found to have an FDG-avid pulmonary nodule. She is now s/p right basilar segmentectomy of the lower lobe and mediastinal lymph node dissection which [id number] adenocarinoma (stage IIIa). We counseled the patient about the results, their implications for her prognosis as well as the available treatment options. She understand that surgical resection alone is not recommended. Best results with the possibility of cure may be achieved with a combined-modality treatment of chemotherapy +/- radiation. We recommend 4 cycles of adjuvant cisplatin/pemetrexed. The patient understands that despite completing all therapy, she will be at significant risk for recurrence and regular surveillance will be recommended. I reviewed the most-common side effects of chemoradiation, including, but not limited to skin damage, fatigue, difficulty swallowing with the possible need for a feeding tube as well as damage to the lungs requiring oxygen and worsening of her breathing. Injury to the heart and spinal cord are less likely. I also reviewed the side effects of chemotherapy that include, but are not limited to, myelosuppression with risks of life threatening infections, injection site reactions, hypersensitivity reactions, need for platelet or blood transfusions, fatigue, hair loss, nausea, vomiting, damage to the nerve endings with loss of sensation as well as injury to the lungs, liver, heart and kidneys, the possibility of treatment-related amongothers. She will begin chemotherapy next week at [facility]. We will reimage her chest after cycle 2 of cisplatin/pemetrexed. She will additionally need an MRI brain w/ contrast to r/o metastatic disease.We will see her back after cycle 2. Patient was seen and discussed with Oncology attending Dr. Zuluaga. Yanira Perez D.O. Hematology/Oncology Fellow Pager # [phone] 11/09/19, 10:45 AM Hematology/[place] [address] * Toño Zuluaga MD - 11/09/2019 10:15 AM EST Attending Addendum I reviewed the case with Dr. Perez, reviewed the history, saw and examined the patient, and personally reviewed relevant lab data and radiographic images, demonstrating stage IIIA lung adenocarcinoma, with a single mediastinal node involvement less than 0.1 mm. My H&P concurs with the Fellow's. I participated in medical decision making and agree with the plans as outlined. I counseled the patient about her condition and the management plan. She is recovering from the surgery. I counseled her about these results, the implications for the prognosis, as well as the available treatment options. The patient understands that despite the successful surgery, she will remain at risk for recurrence. I reviewed the data on the use of adjuvant systemic therapy with chemotherapy, that has been shown to reduce but not eliminate the risks of recurrent lung cancer. She understands that she is alsoat risk for another primary tumor of the aerodigestive tract for which continued surveillance is recommended. I reviewed the data on postoperative radiation for N2 positive disease. Given the microsco pic involvement of a single node, we will finalize the plans for radiation after completion of adjuvant chemotherapy. Observation alone is an alternative. I reviewed the most common side effects of chemotherapy, including but not limited to myelosuppression with risks of life threatening infections, injection site reactions, hypersensitivity reactions, need for platelet or blood transfusions, fatigue, hair loss, nausea, vomiting, damage to the nerve endings with loss of sensation, as well as injury to the lungs, liver, heart and kidneys, the possibility of treatment related , among others. We outlined the rationale for a clinical study ALCHEMIST, evaluating targeted treatment after surgery. I discussed the risks, benefits, and uncertainties that are part of every clinical study. The patient was given written information about the trial. She had multiple questions that were answeredto her satisfaction. Informed consent for the screening portion of the trial was obtained and signed. The patient was given a copy of the signed consent. She met with the research nurse to discuss additional details about the study. At this point, the patient is interested in pursuing active treatment with adjuvant chemotherapy and will begin next week regimen of cisplatin and pemetrexed, although other combinations are also available. I emphasized the importance of not smoking. Toño Zuluaga MD chemical processing equipment repairer Hematology/Oncology [phone], [phone] documented in this encounter Miscellaneous Notes * Addendum Note - Toño Zuluaga MD - 11/09/2019 10:15 AM ESTAddended by: TOÑO ZULUAGA on: 11/09/2019 06:44 PM Modules accepted: Orders, Level of Service documented in this encounter Plan of Treatment Not on file documented as of this encounter Results * (ABNORMAL) Lactate Dehydrogenase (12/15/2019 9:19 AM EST) LDH 270(H) 110 - 220 unit/L [facility] Blood specimen (specimen) 12/15/2019 9:19 AM EST 12/15/2019 9:47 AM EST Narrative Resulting Agency Comment Spec In Lab Toño Zuluaga MD CHEMISTRY [address] [facility] [place] [address] * (ABNORMAL) Comprehensive metabolic panel (non-fasting) (12/15/2019 9:19 AM EST) Glucose Lvl 119 65 - 199 mg/dL [facility] Comment:Diabetes: >=200 mg/d L plus symptoms BUN 36(H) 8 - 18 mg/dL [facility] Creatinine 2.10(H) 0.70 - 1.20 mg/dL [facility] Sodium 135 135 - 145 mmol/L [facility] Potassium 4.2 3.5 - 5.0 mmol/L [facility] Comment: Please note: ??Patients with WBC >100,000 may have falsely elevated Potassium levels. ??For accurate Potassium quantification in these patients send serum separator tube (gold top) for subsequent determinations. ??Contact the Clinical Chemistry Laboratory if there are any questions. Chloride 95(L) 98 - 107 mmol/L [facility] CO2 24 22 - 31 mmol/L [facility] Anion Gap 16(H) 5 - 15 mmol/L [facility] Calcium 9.8 8.5 - 10.5 mg/dL [facility] Total Protein 7.2 6.1 - 8.0 gm/dL [facility] Albumin 4.1 3.2 - 5.2 gm/dL [facility] AST 20 0 - 30 unit/L [facility] ALT 29 0 - 30 unit/L [facility] Alk Phos 105 35 - 105 unit/L [facility] Total Bilirubin 0.4 0.2 - 1.3 mg/dL [facility] Estimated GFR 25(L) >=60 mL/min/1. 73 m?? [facility] Comment: The eGFR was calculated using the CKD-EPI equation. As with all creatinine based estimates of kidney function, eGFR values calculated with the CKD-EPI equation are not accurate in patients with acute kidney failure, extremes of body mass or the acutely ill. [email or web address] eGFR 29(L) >=60 mL/min/1. 73 m?? [facility] Comment: The eGFR was calculated using the CKD-EPI equation. As with all creatinine based estimates of kidney function, eGFR values calculated with the CKD-EPI equation are not accurate in patients with acute kidney failure, extremes of body mass or the acutely ill. [email or web address] Blood specimen (specimen) 12/15/2019 9:19 AM EST 12/15/2019 9:47 AM EST Narrative Resulting Agency Comment Spec In Lab Toño Zuluaga [place] [address] documented in this encounter Visit Diagnoses Diagnosis Primary malignant neoplasm of right lower lobe of lung Malignant neoplasm of lower lobe, bronchus, or lung Non-small cell lung cancer, right documented in this encounter Care Teams Diesel Dragline Operator Relationship Specialty Start Date End Date Kathy Wright, MARÍA PCP - General Family Medicine 04/22/19 documented as of this encounter
--- OUTSIDE RECORDS SUMMARY | 2024-06-24 01:10 | XMS_ITS | Encounter Summary ---
Author Organization [facility] Address [facility] [place] [address] Care Team Providers Care Clerical Manager Name Role Phone GerardoKathy nicolas Butch DANIEL Primary Care Provider [phone] Encounter Details Date Type Department Care Team (Latest Contact Info) Description 12/15/2019 12:04 PM EST - 12/15/2019 12:39 PM [facility] Hospital Encounter XRay at [address] [place] [address] Adrienne Mendez APRN [facility] [address] Non-small cell lung cancer, right Discharge Disposition: [...] Procedure Name Priority Date/Time Associated Diagnosis Comments XR CHEST PA AND LATERAL Routine 12/15/2019 12:23 PM EST Non-small cell lung cancer, right documented in this encounter Results * XR Chest PA & Lateral (Generic) (12/15/2019 12:23 PM EST) Anatomical Region Laterality Modality Chest N/A Digital Radiogra phy Impressions 12/15/2019 2:38 PM EST Posttreatment changes on the right. No acute pathology identified. Thank you for letting us participate in the care of this patient. For questions regarding this report, please contact the number below. ? Narrative 12/15/2019 2:38 PM EST EXAMINATION: XR CHEST PA AND LATERAL (GENERIC) CLINICAL HISTORY: Resected lung ca, on adjuvant chemo with worsening dyspnea. Rule out acute change from prior. TECHNIQUE: PA and lateral views of the chest COMPARISON: 10/21/2019. FINDINGS: Known sequela of lung cancer treatment on the right with similar triangular opacity at the medial right base. Otherwise lungs remain clear. Cardiac mediastinal silhouette is stable. No interval osseous change. Procedure Note Haley Smith MD - 12/15/2019 EXAMINATION: XR CHEST PA AND LATERAL (GENERIC) CLINICAL HISTORY: Resected lung ca, on adjuvant chemo with worseningdyspnea. Rule out acute change from prior. TECHNIQUE: PA and lateral views of the chest COMPARISON: 10/21/2019. FINDINGS: Known sequela of lung cancer treatment on the right with similartriangular opacity at the medial right base. Otherwise lungs remain clear. Cardiac mediastinal silhouette is stable.No interval osseous change. IMPRESSION Posttreatment changes on the right. No acute pathology identified. Thank you for letting us participate in the care of this patient. Forquestions regarding this report, please contact the number below. Adrienne C Andrea LINUX SYSTEM ENGINEER IMG DX ORDERABLES documented in this encounter Visit Diagnoses Diagnosis Non-small cell lung cancer, right documented in this encounter Care Teams Clerical Manager Relationship Specialty Start Date End Date Kathy Wright APRN PCP - General Family Medicine 04/22/19 documented as of this encounter
--- OUTSIDE RECORDS SUMMARY | 2024-06-24 01:10 | XMS_ITS | Encounter Summary ---
Author Organization [facility] [place] [address] Care Team Providers Care Surface Ship Usw Supervisor Name Role Phone GerardoKathy nicolas Butch DANIEL Primary Care Provider [phone] Reason for Visit * Reason Onset Date Comments Appointment 10/22/2019 Encounter Details Date Type Department Care Team (Late st Contact Info) Description 10/22/2019 Telephone Radiation Oncology at [address] [phone] Lay Hauser Appointment Social History Tobacco Use Types Packs/Day [...] encounter Miscellaneous Notes * Telephone Encounter - Lay Hauser - 10/22/2019 2:05 PM EST Radiation Oncology New Patient Scheduling Note I called Marleni to inform her that Dr. Ny has referred her to see Dr. Delvalle for a radiation new patient consultation. I have confirmed her appointments on Nov 15 which will include a 30 minute visit at 10:30 to see our clinic nurse, followed by a [address] Delvalle. I confirmed our address andanswered all of her questions, and our contact information should any further questions or concernsarise. She did not want to travel to [place] and I have put her on the wait list if any cancellations happen. documented in this encounter Plan of Treatment Not on file documented as of this encounter Visit Diagnoses Not on filedocumented in this encounter Care Teams Surface Ship Usw Supervisor Relationship Specialty Start Date End Date Kathy Wright APRN PCP - General Family Medicine 04/22/19 documented as of this encounter
--- OUTSIDE RECORDS SUMMARY | 2024-06-24 01:10 | XMS_ITS | Encounter Summary ---
[place] [address] Care Team Providers Care Business Analyst Consultant Name Role Phone Kathy Wright Butch DANIEL Primary Care Provider [phone] Encounter Details Date Type Department Care Team (Late st Contact Info) Description 11/12/2019 Telephone [place]ematology [place] [phone] Maame Can RN Social History Tobacco Use Types Packs/Day [...] encounter Miscellaneous Notes * Telephone Encounter - Maame Can RN - 11/12/2019 2:43 PM EST RESEARCH NURSE TELEPHONE NOTE Farzana [id number],Adjuvant Lung Cancer Enrichment Marker Identification and Sequencing Trial ?? Date: 11/12/2019 Time: 2:43 PM Reason for call: Prescription for antemetic and dental question (home) Marleni Arreola called to let me know that the prescription for nausea had not been called in and that she wanted to make sure she got it before she started chemo on Friday. Mraleni also went to the dentist this past week and needs two teeth pulled and was asking when should she have that done. Discussed all w/ Dr. West, who called in the antimetic perscription . Radha will call and speak with patient regarding dental procedure. Plan: 1. 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 Next visit in [facility] scheduled for 11/15/19 2. Pt will olive picker nausea medication at [facility] in [facility] Pt understands and agrees with plan and knows she can call the clinic with any further questions orconcerns. documented in this encounter Plan of Treatment Not on file documented as of this encounter Visit Diagnoses Not on filedocumented in this encounter Care Teams Business Analyst Consultant Relationship Specialty Start Date End Date Kathy Wright APRN PCP - General Family Medicine 04/22/19 documented as of this encounter
--- OUTSIDE RECORDS SUMMARY | 2024-06-24 01:10 | XMS_ITS | Encounter Summary ---
[place] [address] Care Team Providers Care Network Manager Name Role Phone Kathy Wright APRN Primary Care Provider [phone] Encounter Details Date Type Department Care Team (Late st Contact Info) Description 10/26/2019 Orders [place] [address] Anna Owen, RN Social History Tobacco Use Types Packs/Day [...] on filedocumented in this encounter Care Teams Network Manager Relationship Specialty Start Date End Date Kathy Wright APRN PCP - General Family Medicine 04/22/19 documented as of this encounter
--- OUTSIDE RECORDS SUMMARY | 2024-06-24 01:10 | XMS_ITS | Encounter Summary ---
Author Organization [facility] Address [facility] [place] [address] Care Team Providers Care Brick Setter Operator Name Role Phone Kathy Wright Butch DANIEL Primary Care Provider [phone] Encounter Details Date Type Department Care Team (Latest Contact Info) Description 12/28/2019 8:15 AM EST - 12/28/2019 11:59 PM [facility] Hospital Encounter [place] [address] Non-small cell lung cancer, right Discharge Disposition: [...] Priority Date/Time Associated Diagnosis Comments HEMOGRAM STAT 12/28/2019 8:53 AM EST Non-small cell lung cancer, right DIFFERENTIAL, AUTOMATED STAT 12/28/2019 8:53 AM EST Non-small cell lung cancer, right HC CBC,PLT & AUTO DIFF STAT 0 8:53 AM EST Non-small cell lung cancer, right HC MAGNESIUM, SERUM STAT 12/28/2019 8 :53 AM EST Non-small cell lung cancer, right HC LACTIC DEHYDROGENASE STAT 12/28/2019 8:53 AM EST Non-small cell lung cancer, right COMPREHENSIVE METABOLIC PANEL (NON-FASTING) STAT 12/28/2019 8:53 AM EST Non-small cell lung cancer, right documented in this encounter Results * (ABNORMAL) Differential, Automated (12/28/2019 8:53 AM EST) Neutrophils % 37.5 % [facility] Neutr Abs (ANC) 2.84 1.70 - 6.10 x10(3)/mc L [facility] Lymphocytes % 37.5 % [facility] Lymphocytes Abs 2.8 0.9 - 3.2 x10(3)/mc L [facility] Monocytes % 19.5 % [facility] Monocyte Abs 1.5(H) 0.3 - 0.9 x10(3)/mc L [facility] Eosinophils % 1.3 % [facility] Eosinophils Abs 0.1 0.0 - 0.4 x10(3)/mc L [facility] Basophils % 0.5 % [facility] Basophils Abs 0.0 0.0 - 0.1 x10(3)/mc L [facility] Immature Gran % 3.70 % [facility] Comment: Immature granulocytes(IG's)percentage and absolute count will include metamyelocytes, myelocytes, and promyelocytes. Blood smears from CBCs yielding IG's will be scanned manually for concordance. If this scan disagrees with the automated IG or if promyelocytes are noted, a manual differential will be performed. Wilma Gran Abs 0.28(H) 0.00 - 0.04 x10(3)/ L [facility] Blood specimen (specimen) 12/28/2019 8:53 AM EST 12/28/2019 9:02 AM EST Narrative Resulting Agency Comment Spec In Lab Toño West MD HEMATOLOGY ORDER KATHY [facility] [place] [address] * (ABNORMAL) Hemogram (12/28/2019 8:53 AM EST) WBC 7.6 4.0 - 9.5 x10(3)/[facility] RBC 3.22(L) 4.00 - 5.21 x10(6)/[facility] Hemoglobin 9.9(L) 11.7 - 15.5 gm/dL [facility] Hematocrit 29.2(L) 35.7 - 45.8 % [facility] MCV 90.7 82.6 - 94.4 fL [facility] MCH 30.7 27.1 - 32.0 pg [facility] MCHC 33.9 31.7 - 35.0 gm/dL [facility] Platelets 313 145 - 357 x10(3)/[facility]OR[facility] RDWSD 42.6 37.0 - 46.0 fL [facility] RDWCV 14.4(H) 11.5 - 14.1 % [facility] MPV 8.3 7.6 - 12.9 fL [facility] nRBC % Auto 0.4 % [facility] nRBC Abs Auto 0.030(H) 0.000 - 0.000 x10(3)/mcL [facility] Blood specimen (specimen) 12/28/2019 8:53 AM EST 12/28/2019 9:02 AM EST Narrative Resulting Agency Comment Spec In Lab Toño West MD HEMATOLOGY ORDER KATHY [facility] [place] [address] * (ABNORMAL) Comprehensive metabolic panel (non-fasting) (12/28/2019 8:53 AM EST) Glucose Lvl 105 65 - 199 mg/dL [facility] Comment:Diabetes: >=200 mg/d L plus symptoms BUN 12 8 - 18 mg/dL [facility] Creatinine 1.37(H) 0.70 - 1.20 mg/dL [facility] Sodium 137 135 - 145 mmol/L [facility] Potassium 4.0 3.5 - 5.0 mmol/L [facility] Comment: Please note: ??Patients with WBC >100,000 may have falsely elevated Potassium levels. ??For accurate Potassium quantification in these patients send serum separator tube (gold top) for subsequent determinations. ??Contact the Clinical Chemistry Laboratory if there are any questions. Chloride 100 98 - 107 mmol/L [facility] CO2 22 22 - 31 mmol/L [facility] Anion Gap 15 5 - 15 mmol/L [facility] Calcium 9.8 8.5 - 10.5 mg/dL [facility] Total Protein 7.1 6.1 - 8.0 gm/dL [facility] Albumin 4.3 3.2 - 5.2 gm/dL [facility] AST 24 0 - 30 unit/L [facility] ALT 26 0 - 30 unit/L [facility] Alk Phos 112(H) 35 - 105 unit/L [facility] Total Bilirubin 0.2 0.2 - 1.3 mg/dL [facility] Estimated GFR 42(L) >=60 mL/min/1. 73 m?? [facility] Comment: The eGFR was calculated using the CKD-EPI equation. As with all creatinine based estimates of kidney function, eGFR values calculated with the CKD-EPI equation are not accurate in patients with acute kidney failure, extremes of body mass or the acutely ill. http://[employer]/[facility] eGFR 49(L) >=60 mL/min/1. 73 m?? [facility] Comment: The eGFR was calculated using the CKD-EPI equation. As with all creatinine based estimates of kidney function, eGFR values calculated with the CKD-EPI equation are not accurate in patients with acute kidney failure, extremes of body mass or the acutely ill. http://[employer]/[facility] Blood specimen (specimen) 12/28/2019 8:53 AM EST 12/28/2019 9:02 AM EST Narrative Resulting Agency Comment Spec In Lab Toño West MD CHEMISTRY ORDERA BLES Performing Organization Address City/[facility] Co de Phone Number [facility] [place] [address] * (ABNORMAL) Lactate Dehydrogenase (12/28/2019 8:53 AM EST) LDH 408(H) 110 - 220 unit/L [facility] Blood specimen (specimen) 12/28/2019 8:53 AM EST 12/28/2019 9:02 AM EST Narrative Resulting Agency Comment Spec In Lab Toño West MD CHEMISTRY ORDERA BLES Performing Organization Address City/[facility] Co de Phone Number [facility] [place] [address] * (ABNORMAL) Magnesium (12/28/2019 8:53 AM EST) Magnesium 0.65(L) 0.69 - 1.07 mmol/L [facility] Blood specimen (specimen) 12/28/2019 8:53 AM EST 12/28/2019 9:02 AM EST Narrative Resulting Agency Comment Spec In Lab Toño West MD CHEMISTRY ORDERA BLES Performing Organization Address City/State/[facility] Co de Phone Number [facility] [place] [address] documented in this encounter Visit Diagnoses Diagnosis Non-small cell lung cancer, right documented in this encounter Care Teams Brick Setter Operator Relationship Specialty Start Date End Date Kathy Wright APRN PCP - General Family Medicine 04/22/19 documented as of this encounter
--- OUTSIDE RECORDS SUMMARY | 2024-06-24 01:10 | XMS_ITS | Encounter Summary ---
Author Organization [facility] [place] [address] Care Team Providers Care Culinary Art Teacher Name Role Phone Kathy Wright APRN Primary Care Provider [phone] Encounter Details Date Type Department Care Team (Late st Contact Info) Description 12/14/2019 Orders Only Hematology [place] [address] Toño West MD [facility] [place] [address] Non-small cell lung cancer, right Social History [...] right documented in this encounter Care Teams Culinary Art Teacher Relationship Specialty Start Date End Date Kathy Wright APRN PCP - General Family Medicine 04/22/19 documented as of this encounter
--- OUTSIDE RECORDS SUMMARY | 2024-06-24 01:10 | XMS_ITS | Encounter Summary ---
Author Organization [facility] Address [facility] [place] [address] Care Team Providers Care Family And Consumer Sciences Teacher Name Role Phone Kathy Wright Butch DANIEL Primary Care Provider Encounter Details Date Type Department Care Team (Latest Contact Info) Description 12/15/2019 12:40 PM EST - 12/15/2019 11:59 PM EST Hospital Encounter Hematology [place] [address] Non-small cell lung cancer, right Discharge Disposition: [...] as of this encounter Progress Notes * Christine Liu RN - 12/15/2019 2:13 PM EST Patient Name: Marleni Arreola Patient Age: 59 y.o. Birthdate: 1960 Admit date: 12/15/2019 Attending Physician: No att. providers found Marleni Arreola, 59 y.o. female with diagnosis of NSCLC is here for infusion of hydration. S: Pt. offers no complaints at this time. O: Orders independently verified for correct drug name, route and dosage per patient's height, weight and BSA by Christine Liu RN and onsite pharmacist REACTIONS (DESCRIPTION, TIME, INTERVENTION AND EFFECTIVENESS) None. A: Pt. Tolerated treatment well. Marleni Arreola [...] infusion 500 mL/hr, Intravenous, CONTINUOUS, Starting on Fri12/15/19 at 1400, Until Fri12/15/19 at 1559 New Bag 12/15/2019 1:59 PM EST 500 mL/hr 500 mL/hr documented in this encounter Care Teams Family And Consumer Sciences Teacher Relationship Specialty Start Date End Date Kathy Wright, CAFE LEAD PCP - General Family Medicine 04/22/19 documented as of this encounter
--- OUTSIDE RECORDS SUMMARY | 2024-06-24 01:10 | XMS_ITS | Encounter Summary ---
Author Organization [facility] [place] [address] Care Team Providers Care Orthotics Prosthetics Technician Name Role Phone Kathy Wright MARÍA Primary Care Provider [phone] Encounter Details Date Type Department Care Team (Late st Contact Info) Description 01/03/2020 Telephone [place] [address] Radha Bynum RN Social History Tobacco Use [...] Telephone Encounter - Radha Bynum RN - 01/03/2020 8:24 AM EST Follow-up: cloth shrinker to call on 01/03 to assess her symptoms and make sure she can still come for 2/4appointment. Call placed to Marleni to check in. Left a message. Call placed again to pt to discuss. States she is feeling better & plans on coming in for appt tomorrow as planned. documented in this encounter Plan of Treatment Not on file documented as of this encounter Visit Diagnoses Not on filedocumented in this encounter Care Teams Orthotics Prosthetics Technician Relationship Specialty Start Date End Date Kathy Wright APRN PCP - General Family Medicine 04/22/19 documented as of this encounter
--- OUTSIDE RECORDS SUMMARY | 2024-06-24 01:10 | XMS_ITS | Encounter Summary ---
Author Organization [place] [address] Care Team Providers Care Fruit Press Operator Name Role Phone Kathy Wright MOTOR ASSEMBLER Primary Care Provider [phone] Encounter Details Date Type Department Care Team (Late st Contact Info) Description 11/22/2019 Refill Hematology [place] [address] Radha Bynum RN Non-small cell lung cancer, [...] Telephone Encounter - Radha Bynum RN - 11/22/2019 10:23 AM EST Message received from elementary secretary: Patient calling to report constant cough like she had before biopsy, back and ribs starting to hurt, cough is productive but she is unable to get it up. Wondering if someone may call her in something to ?? [id number] - [facility], [place] - [address] [place] [address]? S/O: Call placed to Marleni to discuss. Marleni states over the past week she has developed congestion in my lungs that's making me cough. She reports a dry cough prior to this however now there iscongestion however she cant cough it up. She reports green nasal congestion. Denies SOB, chest painor palpitations. Afebrile. Denies chills. Increasing fatigue. Denies sore throat. She has used tessalon pearls in the past which provided good relief. She is hoping we can prescribe something to helpher cough. She doesn't have tessalon pearls left at home. Denies any other symptoms or concerns. Assessment: Patient of Dr. West with NSCLC who received Cycle 1 of Cisplatin/Pemetrexed on 11/16/19 calling with continued cough. Plan: Discussed above with Adrienne Mendez APRN who states she would like to have Marleni get a CBCand CMP locally. We can prescribe tessalon pearls 100 mg PO TID and she may use mucinex OTC. Call placed back to Marleni to discuss. Reviewed above with Marleni. She is not able to get labs drawn today however she can go tomorrow morning. She would like these drawn [facility]. She wishes to hold off on the mucinex for now as she is worried this will increase her blood pressure. She would like touse the tessalon pearls for now and would like this script sent to [facility] in [place], [place]. Reviewed we would call her tomorrow once we received her lab results and she should call back should she have further questions, concerns or worsening symptoms. harness installer to follow-up on CBC, CMP results tomorrow on 11/23 and call patient with results. Script for tessalon pearls pended to Adrienne Mendez APRN for review and signature. CBC, CMP orders placed. Clinical elementary secretary to fax orders to [facility]. documented in this encounter Plan of Treatment Not on file documented as of this encounter Visit Diagnoses Diagnosis Non-small cell lung cancer, right documented in this encounter Care Teams Fruit Press Operator Relationship Specialty Start Date End Date Kathy Wright APRN PCP - General Family Medicine 04/22/19 documented as of this encounter
--- OUTSIDE RECORDS SUMMARY | 2024-06-24 01:10 | XMS_ITS | Encounter Summary ---
[place] [address] Care Team Providers Care Water Control Supervisor Name Role Phone Kathy Wright MARÍA Primary Care Provider [phone] Reason for Visit * Reason Onset Date Comments Medication Refill 10/26/2019 Encounter Details Date Type Department Care Team (Late st Contact Info) Description 10/26/2019 Refill [place] [phone] Anna Owen, RN Social History Tobacco Use [...] encounter Miscellaneous Notes * Telephone Encounter - Anna Owen RN - 10/26/2019 12:53 PM EST TC from Ms. Arreola Hx: s/p R VATS with RLL basilar segmentectomy on 10/06/19 Ms. Arreola is calling today to state that her cough is still bothersome. She states that it is a nonproductive cough. She denies fevers, chills, and sweats. She is coughing so hard that her right side is very sore andit is keeping her up at night. Discussed with Dr. Ny who was in agreement to send a script for Smileyanetagail Sundays for 8 days worth to see if this helps. She is in agreement with this plan and will send the script to [facility] in [facility]. She knows to call with any questions or concerns. documented in this encounter Plan of Treatment Not on file documented as of this encounter Visit Diagnoses Not on filedocumented in this encounter Care Teams Water Control Supervisor Relationship Specialty Start Date End Date Kathy Wright APRN PCP - General Family Medicine 04/22/19 documented as of this encounter
--- OUTSIDE RECORDS SUMMARY | 2024-06-24 01:10 | XMS_ITS | Encounter Summary ---
Author Organization [facility] Address [facility] [place] [address] Care Team Providers Care Surgical Services Assistant Name Role Phone GerardoKathy nicolas Butch DANIEL Primary Care Provider [phone] Encounter Details Date Type Department Care Team (Late st Contact Info) Description 11/17/2019 Telephone Hematology/Oncology at [address] [phone] Radha Pearson, VENU Social History Tobacco Use Types Packs/Day Years [...] Miscellaneous Notes * Telephone Encounter - Radha Pearson RN - 11/17/2019 11:32 AM EST Post chemo call Placed call to patient to assess tolerance of first time chemotherapy treatment. Regimen received: Cisplatin/Alimta Date of treatment: 11/17/19 Assessment: Symptom?? Present (yes[y]/no[n]/ stable[s] from baseline)?? Additional information/Assessment?? GI? Nausea?? n ?? Vomiting?? n ?? Nausea medication?? n ?? Tolerating diet?? y ?? Maintaining fluid intake (indicate volume)?? y ?? Bowel movements regular?? y ?? Diarrhea?? n ?? Mouth sores?? n ?? General? Pain (0 none - 10 high)?? 0 ?? Using pain medications?? n Neuro? Level of fatigue (0 - 5)?? 3 ??Pt resting and watching TV Falls?? n ?? Numbness/tingling in arms/legs?? n ?? Cognitive changes?? n? Skin? Skin changes?? n ?? Pinpoint red dots?? n ?? Other s/s of bleeding?? n ?? IV site/VAD problems?? n Musculoskeletal? Joint swelling or tenderness?? n ?? Arthralgias or myalgias?? n ? Voiding problems?? n ?? Color and quality of urine?? normal ?? Cardio-pulmonary? Shortness of breath?? n ?? Chest pain?? n ?? Swelling in legs?? n ?? Calf pain or tenderness?? n ?? Cough (productive/non-productive)?? n ?? Psychosocial? Coping?? y Was very pleased with the care here ? Need prescription renewals?? n ?? Other issues :?? Education provided: ?? Plan:? Reinforced to patient/care-graduate engineer to call facility 23/06 with any new/worsening signs and symptoms orconcerns or questions.?? Phone number provided.?? Pt verbalized understanding and is in agreement with plan. ? documented in this encounter Plan of Treatment Not on file documented as of this encounter Visit Diagnoses Not on filedocumented in this encounter Care Teams Surgical Services Assistant Relationship Specialty Start Date End Date Kathy Wright APRN PCP - General Family Medicine 04/22/19 documented as of this encounter
--- OUTSIDE RECORDS SUMMARY | 2024-06-24 01:10 | XMS_ITS | Encounter Summary ---
Author Organization [facility] [place] [address] Care Team Providers Care Harp Regulator Name Role Phone GerardoKathy nicolas Butch DANIEL Primary Care Provider [phone] Reason for Visit * Reason Comments Follow-up Encounter Details Date Type Department Care Team (Late st Contact Info) Description 12/28/2019 9:15 AM EST Office Visit Hematology [place] [address] Toño West MD [facility] [place] [address] Adrienne Mendez APRN [facility] [address] [place]ATOLOG[place] [address] Letty Vargas MD [facility] [address] HEMATOLOGY/[place] [address] Non-small cell lung cancer, right; NAHUM (acute kidney injury); Nausea without vomiting; Nonintractable headache, unspecified chronicity pattern, unspecified headache type Social History Tobacco Use Types Packs/Day [...] Sign Reading Time Taken Comments Blood Pressure 149/78 12/28/2019 9:03 AM EST Pulse 63 12/28/2019 9:03 AM EST Temperature 36.5 ??C (97.7 ??F) 12/28/2019 9:03 AM ES T Respiratory Rate 17 12/28/2019 9:03 AM EST Oxygen Saturation 100% 12/28/2019 9:03 AM EST Inhaled Oxygen Concentration - - Weight 66.5 kg (146 lb 9.6 oz) 12/28/2019 9:03 A M EST Height 154.5 cm (5' 0.83) 12/28/2019 9:03 AM ES T Body Mass Index 27.86 12/28/2019 9:03 AM EST documented in this encounter Progress Notes * Adrienne Mendez, [employer] PLANTING EQUIPMENT OPERATOR - 12/28/2019 9:15 AM EST Images from the original [...] RLL.??A dedicated??CT Chest was performed??07/02/18??which demonstrated stable [id number] nodules in the RLL, largest measuring 9 [...] October 2019. She received Cycle 2 on 12/07/2019 followed by NAHUM. INTERVAL HISTORY: Last seen 12/14/2019. Comes today for re-evaluation and consideration of Cycle 3 of adjuvant chemotherapy. He reports that she is overall not feeling well. She is on ABX for a sinus infection- being treated with doxycycline by PCP, which she started about 4-5 days ago, The sinus pressure and nasal congestion is improving but not resolved. There have been temporal HAs over the past week. They are occurring daily and improve with tylenol- she is taking 2g/day. No fevers, but did have shaking chills 2 days ago, none since. Sleep is interrupted due to sinus sx, reports sleeping about 2 hrs per night over recent nights. There is significant fatigue which has persisted since the last cycle of chemo. She does not feel her energy has started to recover. Main complaint today is dyspnea. This is stable compared to the last visit. No SOB at rest. There is dyspnea with minimal exertion. PCP changed her COPD regimen 1 week ago, which does seem to be providing some benefit. Uses rescue inhaler about 3x/day, which provides inconsistent relief. Cough withrecent URI, now improving. No hemoptysis. Right lower chest discomfort, intermittent, started aftersinus infection and occurs with coughing. There is intermittent, abdominal discomfort. This started after initiation of ABX. Reports she has always had a sensitive stomach. No diarrhea or constipation. Appetite is decreased but forcing herself to eat. She is doing well with hydration. Weight is up a few lbs since the last visit. There is nausea, which correlates with an empty stomach. No vomiting. No heartburn. Nausea improves with bland foods or zofran, which she takes up to 2x/day. Nausea is improving compared to 2 weeks ago. No diplopia, change in swallowing, dysuria, bleeding, rash, new or worsening pain (aside from above). Continues with lightheadedness with positional changes. Balance is slightly worse, fell once in the past week with no injuries. No focal weakness, sensory complaints. ROS See HPI. ROS otherwise unremarkable. PMHX: Patient Active Problem List Diagnosis ??? COPD (chronic obstructive pulmonary disease) ??? Mixed anxiety and depressive disorder ??? Non-small cell lung cancer, right Adenocarcinoma, acinar predominant with focal micro-papillary pattern, 12 LN, positive 8R node with isolated cancer cells, PDL 1 TPS 5% ??? Lung nodule ??? Dizziness ??? Closed compression fracture of body of L1 vertebra PSHX: Past Surgical History: Procedure Laterality Date ??? PRO BRONCHOSCOPY, DIAGNOSTIC N/A 10/06/2019 BRONCHOSCOPY, DIAGNOSTIC (WRVU 2.78) performed by Juan Ny MD at [facility] [place] MAIN OR ? ? PRO INJECTION ANES AGENT &/ STEROID INTERCOSTAL NERVE EA ADDL LEVEL Right 10/06/2019 NERVE BLOCK, INTERCOSTAL NERVE, MULTIPLE (WRVU 1.68) performed by Juan Ny MD at [facility] [place] MAIN OR ??? PRO THORACOSCOPY SURG LOBECTOMY Right 10/06/2019 @ROBOT XI THORACOSCOPY,SURGICAL,W\LOBECTOMY,TOTAL OR SEGMENTAL (WRVU 24.64) performed by Juan Ny MD at [facility] [place] MAIN OR ??? PRO THORACOSCOPY WITH MEDIASTINAL AND REGIONAL LYMPHADENECTOMY Right 10/06/2019 @ROBOT XI THORACOSCOPY,SURG; W/MEDIASTINAL& REGIONAL LYMPHADENECTOMY (WRVU 4.12) performed by Juan Ny MD at [facility] [place] MAIN OR ??? PRO THORACOSCOPY WITH WEDGE RESECTION AND ANATOMIC LUNG RESECTN Right 10/06/2019 @ROBOT XI THORACOSCOPY,SURG; W/DX WEDGE RESC W/ANATOMIC LUNG RESC (WRVU 3) performed by Juan Ny MD at [facility] [place] MAIN OR MEDS: Current Outpatient Medications on File Prior to Visit Medication Sig Dispense Refill ??? magnesium oxide (MAG-OX) 400 mg (241.3 mg magnesium) Tablet Take 1 tablet by mouth daily. 30 tablet 1 ??? gabapentin (NEURONTIN) 100 mg Capsule [...] taking differently: Take by mouth daily.) ??? diphenhydrAMINE/aluminum-magnesium hydroxide with simethicone/lidocaine (BMX) (6.67 mg-0.83 mg-13.33 mg-1.33 mg/mL) oral liquid Take 5 mLs by mouth 4 times daily. (Patient not taking: Reported on12/15/2019) 200 mL 1 ??? benzonatate (TESSALON) 100 [...] taking: Reported on 11/09/2019) 60 tablet 1 ??? enalapril-hydrochlorothiazide (VASERETIC) 10-25 mg Tablet 1 tablet daily. 5 ??? cloNIDine (CATAPRES) 0.1 mg Tablet 1 tablet daily. 3 No current facility-administered medications on file prior to visit. Allergies: Allergies Allergen Reactions ??? Cis Free Text Allergy COMBID. ??? Isopropamide ??? 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 LABORATORY STUDIES Recent Results (from the past 24 hour(s)) Magnesium Result Value Ref Range Magnesium 0.65 (L) 0.69 - 1.07 mmol/L Lactate Dehydrogenase Result Value Ref Range LDH 408 (H) 110 - 220 unit/L Comprehensive metabolic panel (non-fasting) Result Value Ref Range Glucose Lvl 105 65 - 199 mg/dL BUN 12 8 - 18 mg/dL Creatinine 1.37 (H) 0.70 - 1.20 mg/dL Sodium 137 135 - 145 mmol/L Potassium 4.0 3.5 - 5.0 mmol/L Chloride 100 98 - 107 mmol/L CO2 22 22 - 31 mmol/L Anion Gap 15 5 - 15 mmol/L Calcium 9.8 8.5 - 10.5 mg/dL Total Protein 7.1 6.1 - 8.0 gm/dL Albumin 4.3 3.2 - 5.2 gm/dL AST 24 0 - 30 unit/L ALT 26 0 - 30 unit/L Alk Phos 112 (H) 35 - 105 unit/L Total Bilirubin 0.2 0.2 - 1.3 mg/dL eGFR 42 (L) >=60 mL/min/1.73 m?? eGFR 49 (L) >=60 mL/min/1.73 m?? Hemogram Result Value Ref Range WBC 7.6 4.0 - 9.5 x10(3)/mcL RBC 3.22 (L) 4.00 - 5.21 x10(6)/mcL Hemoglobin 9.9 (L) 11.7 - 15.5 gm/dL Hematocrit 29.2 (L) 35.7 - 45.8 % MCV 90.7 82.6 - 94.4 fL MCH 30.7 27.1 - 32.0 pg MCHC 33.9 31.7 - 35.0 gm/dL Platelets 313 145 - 357 x10(3)/mcL RDWSD 42.6 37.0 - 46.0 fL RDWCV 14.4 (H) 11.5 - 14.1 % MPV 8.3 7.6 - 12.9 fL nRBC % Auto 0.4 % nRBC Abs Auto 0.030 (H) 0.000 - 0.000 x10(3)/mcL Differential, Automated Result Value Ref Range Neutrophils % 37.5 % Neutr Abs (ANC) 2.84 1.70 - 6.10 x10(3)/mcL Lymphocytes % 37.5 % Lymphocytes Abs 2.8 0.9 - 3.2 x10(3)/mcL Monocytes % 19.5 % Monocyte Abs 1.5 (H) 0.3 - 0.9 x10(3)/mcL Eosinophils % 1.3 % Eosinophils Abs 0.1 0.0 - 0.4 x10(3)/mcL Basophils % 0.5 % Basophils Abs 0.0 0.0 - 0.1 x10(3)/mcL Immature Gran % 3.70 % Wilma Gran Abs 0.28 (H) 0.00 - 0.04 x10(3)/mcL RADIOLOGY STUDIES REVIEWED: No imaging done today ASSESSMENT: Marleni is a 59 y/o woman [...] IVF and increased PO fluid intake. Her Cr has been trending back down over the past 2 weeks. She comes today for consideration of C3 of adjuvant treatment. She developed a sinus infection last week and is on treatment with ABX with improvement in sx. She has numerous sx today including (improving but not resolved)sinus pressure, HAs, fatigue, dyspnea, nausea and abd discomfort. Laboratory studies are adequate for treatment. We discussed treatment options. Recommended switching for cisplatin/pemetrexed to carboplatin/pemetrexed given NAHUM with C2. Also recommend holding treatment for 1 additional week to allow for time to recover from recent sinus infection. The plan is for a total of 4 cycles. She met withradiation oncology and decided against radiation. The patient understands that despite completing all therapy, she will be at significant risk for recurrence and regular surveillance will be recommended. # Sinus infection: Completing course of doxycycline. # ANDUJAR: This may be related to sinus infection, in which case this should improve over the next week.Recommend limited tylenol intake due to risk of rebound ANDUJAR. If the ANDUJAR persists, would obtain a brain MRI. # Dyspnea: Stable since the last visit. Her PCP recently adjusted her COPD regimen. There may also be a component of deconditioning, so recommend increasing physical activity as able. # Nausea: Recommend small frequent meals to avoid an empty stomach. If this is from chemotherapy, it should continue to improve as she gets farther out from the last cycle. # Abd discomfort: Started with initiation of doxycycline, so anticipate that this will improve onceshe completes ABX. # Fatigue: Likely multifactorial, expect that energy will improve over the next week. Increase activity level, as above. RTC in 1 week with labs, clinic, infusion for carboplatin/pemetrexed. Pt will call in the meantime with any new or worsening sx. 30 min of this 55 minute visit were spent in counseling and education about the treatment plan and sx management (9:25am until 10:20am) documented in this encounter Plan of Treatment Not on file documented as of this encounter Visit Diagnoses Diagnosis Non-small cell lung cancer, right NAHUM (acute kidney injury) Acute kidney failure, unspecified Nausea without vomiting Nonintractable headache, unspecified chronicity pattern, unspecified headache type documented in this encounter Care Teams Harp Regulator Relationship Specialty Start Date End Date Kathy Wright APRN PCP - General Family Medicine 04/22/19 documented as of this encounter
--- OUTSIDE RECORDS SUMMARY | 2024-06-24 01:10 | XMS_ITS | Encounter Summary ---
Author Organization [facility] [place] [address] Care Team Providers Care Tube Making Machine Operator Name Role Phone GerardoKathy nicolas Butch DANIEL Primary Care Provider [phone] Encounter Details Date Type Department Care Team (Latest Contact Info) Description 12/15/2019 8:55 AM EST - 12/15/2019 12:[address] [facility] Encounter Hematology [place] [address] Primary malignant neoplasm of right lower lobe of lung Discharge Disposition: Home Social History Tobacco Use [...] Procedure Name Priority Date/Time Associated Diagnosis Comments SCAN, PERIPHERAL BLOOD Routine 0 9:19 AM EST HEMOGRAM Routine 12/15/2019 9:19 AM EST Primary malignant neoplasm of right lower lobe of lung DIFFERENTIAL, AUTOMATED Routine 12/15/2019 9:19 AM EST Primary malignant neoplasm of right lower lobe of lung HC VENIPUNCTURE Routine 12/15/2019 9:19 AM EST Primary malignant neoplasm of right lower lobe of lung HC LACTIC DEHYDROGENASE Routine 12/15/2019 9:19 AM EST Primary malignant neoplasm of right lower lobe of lung COMPREHENSIVE METABOLIC PANEL (NON-FASTING) Routine 12/15/2019 9:19 AM EST Primary malignant neoplasm of right lower lobe of lung documented in this encounter Results * Scan, Peripheral Blood (12/15/2019 9:19 AM EST) Plat Estimate Decreased [facility] RBC Morphology Abnormal [facility] Stomatocytes 1-5 /HPF [facility] Blood specimen (specimen) 12/15/2019 9:19 AM EST 12/15/2019 9:47 AM EST Narrative Resulting Agency Comment Spec In Lab Yanira Perez DO HEMATOLOGY ORDERABLE S [facility] [place] [address] * (ABNORMAL) Differential, Automated (12/15/2019 9:19 AM EST) Neutrophils % 57.9 % [facility] Neutr Abs (ANC) 1.96 1.70 - 6.10 x10(3)/mc L [facility] Lymphocytes % 37.9 % [facility] Lymphocytes Abs 1.3 0.9 - 3.2 x10(3)/[facility] Monocytes % 3.0 % [facility] Monocyte Abs 0.1(L) 0.3 - 0.9 x10(3)/[facility] Eosinophils % 0.3 % [facility] Eosinophils Abs 0.0 0.0 - 0.4 x10(3)/[facility] Basophils % 0.6 % [facility] Basophils Abs 0.0 0.0 - 0.1 x10(3)/[facility] Immature Gran % 0.30 % [facility] Comment: Immature granulocytes(IG's)percentage and absolute count will include metamyelocytes, myelocytes, and promyelocytes. Blood smears from CBCs yielding IG's will be scanned manually for concordance. If this scan disagrees with the automated IG or if promyelocytes are noted, a manual differential will be performed. Wilma Gran Abs 0.01 0.00 - 0.04 x10(3)/[facility] Blood specimen (specimen) 12/15/2019 9:19 AM EST 12/15/2019 9:47 AM EST Narrative Resulting Agency Comment Spec In Lab Yanira Perez DO HEMATOLOGY ORDERABLE S Performing Organization Address City/State/[facility] Co de Phone Number [facility] [place] [address] * (ABNORMAL) Hemogram (12/15/2019 9:19 AM EST) WBC 3.4(L) 4.0 - 9.5 x10(3)/[facility] RBC 3.55(L) 4.00 - 5.21 x10(6)/[facility] Hemoglobin 10.9(L) 11.7 - 15.5 gm/dL [facility] Hematocrit 32.3(L) 35.7 - 45.8 % [facility] MCV 91.0 82.6 - 94.4 fL [facility] MCH 30.7 27.1 - 32.0 pg [facility] MCHC 33.7 31.7 - 35.0 gm/dL [facility] Platelets 135(L) 145 - 357 x10(3)/[facility] RDWSD 43.7 37.0 - 46.0 fL [facility] RDWCV 13.5 11.5 - 14.1 % [facility] MPV 9.9 7.6 - 12.9 [facility] nRBC % Auto 0.0 % [facility] nRBC Abs Auto 0.000 0.000 - 0.000 x10(3)/[facility] Blood specimen (specimen) 12/15/2019 9:19 AM EST 12/15/2019 9:47 AM EST Narrative Resulting Agency Comment Spec In Lab Yanira Perez DO HEMATOLOGY ORDERABLE S [facility] [place] [address] * (ABNORMAL) Comprehensive metabolic panel (non-fasting) (12/15/2019 9:19 AM EST) Glucose Lvl 119 65 - 199 mg/dL [facility] Comment:Diabetes: >=200 mg/d L plus symptoms BUN 36(H) 8 - 18 mg/dL [facility] Creatinine 2.10(H) 0.70 - 1.20 mg/dL [facility] Sodium 135 135 - 145 mmol/L [facility] Potassium 4.2 3.5 - 5.0 mmol/L [facility] Comment: Please note: ??Patients with WBC >100,000 may have falsely elevated Potassium levels. ??For accurate Potassium quantification in these patients send serum separator tube (gold top) for subsequent determinations. ??Contact the Clinical Chemistry Laboratory if there are any questions. Chloride 95(L) 98 - 107 mmol/L [facility] CO2 24 22 - 31 mmol/L [facility] Anion Gap 16(H) 5 - 15 mmol/L [facility] Calcium 9.8 8.5 - 10.5 mg/dL [facility] Total Protein 7.2 6.1 - 8.0 gm/dL [facility] Albumin 4.1 3.2 - 5.2 gm/dL [facility] AST 20 0 - 30 unit/L [facility] ALT 29 0 - 30 unit/L [facility] Alk Phos 105 35 - 105 unit/L [facility] Total Bilirubin 0.4 0.2 - 1.3 mg/dL [facility] Estimated GFR 25(L) >=60 mL/min/1. 73 m?? [facility] Comment: The eGFR was calculated using the CKD-EPI equation. As with all creatinine based estimates of kidney function, eGFR values calculated with the CKD-EPI equation are not accurate in patients with acute kidney failure, extremes of body mass or the acutely ill. [email or web address] CITYnkf eGFR 29(L) >=60 mL/min/1. 73 m?? [facility] Comment: The eGFR was calculated using the CKD-EPI equation. As with all creatinine based estimates of kidney function, eGFR values calculated with the CKD-EPI equation are not accurate in patients with acute kidney failure, extremes of body mass or the acutely ill. [email or web address] Blood specimen (specimen) 12/15/2019 9:19 AM EST 12/15/2019 9:47 AM EST Narrative Resulting Agency Comment Spec In Lab Toño West MD CHEMISTRY ORDERA BLES [facility] [place] [address] * (ABNORMAL) Lactate Dehydrogenase (12/15/2019 9:19 AM EST) LDH 270(H) 110 - 220 unit/L [facility] Blood specimen (specimen) 12/15/2019 9:19 AM EST 12/15/2019 9:47 AM EST Narrative Resulting Agency Comment Spec In Lab Toño West MD CHEMISTRY ORDERA BLES Performing Organization Address City/State/[facility] Co de Phone Number [facility] [place] [phone] documented in this encounter Visit Diagnoses Diagnosis Primary malignant neoplasm of right lower lobe of lung Malignant neoplasm of lower lobe, bronchus, or lung documented in this encounter Care Teams Tube Making Machine Operator Relationship Specialty Start Date End Date Kathy Wright APRN PCP - General Family Medicine 04/22/19 documented as of this encounter
--- OUTSIDE RECORDS SUMMARY | 2024-06-24 01:10 | XMS_ITS | Encounter Summary ---
[place] [address] Care Team Providers Care Pharmacy Affairs Assistant Name Role Phone Kathy Wright BLEACH PLANT OPERATOR Primary Care Provider [phone] Encounter Details Date Type Department Care Team (Late st Contact Info) Description 11/12/2019 Refill Hematology [place] [address] Radha Bynum RN Non-small cell lung cancer, [...] Telephone Encounter - Radha Bynum RN - 11/12/2019 1:35 PM EST Message received from traveling secretary: Patient needs a couple of teeth removed she is not sure if she needs to wait until after treatment is complete? Please call to discuss [phone] West who states he would prefer to have these teeth removed before or after treatment. We can push her treatment out by 2 weeks to get these done prior to start of treatment. Call placed to Marleni states her teeth aren't bothering her now and she would prefer to wait until after treatment. She states I definitely don't want them done while I am getting treatment. She would like to leave her appointments how they currently are scheduled. Also reviewed Dr. West has called in an antiemetic script for her to take PRN after her infusions. She would like thissent to [email or web address] in [facility]. Encouraged her to call back should she have further questions or concerns. documented in this encounter Plan of Treatment Not on file documented as of this encounter Visit Diagnoses Diagnosis Non-small cell lung cancer, right documented in this encounter Care Teams Pharmacy Affairs Assistant Relationship Specialty Start Date End Date Kathy Wright, MARÍA PCP - General Family Medicine 04/22/19 documented as of this encounter
--- OUTSIDE RECORDS SUMMARY | 2024-06-24 01:10 | XMS_ITS | Encounter Summary ---
Author Organization [facility] [place] [address] Care Team Providers Care Airline Operations Agent Name Role Phone Kathy Wright Butch DANIEL Primary Care Provider [phone] Encounter Details Date Type Department Care Team (Latest Contact Info) Description 01/04/2020 8:15 AM EST - 01/04/2020 8:28 AM [facility] [place] Hospital Encounter Hematology [place] [address] Non-small cell lung cancer, right Discharge Disposition: [...] Priority Date/Time Associated Diagnosis Comments HEMOGRAM STAT 01/04/2020 8:38 AM EST Non-small cell lung cancer, right DIFFERENTIAL, AUTOMATED STAT 01/04/2020 8:38 AM EST Non-small cell lung cancer, right HC CBC,PLT & AUTO DIFF STAT 0 8:38 AM EST Non-small cell lung cancer, right HC LACTIC DEHYDROGENASE STAT 01/04/2020 8:38 AM EST Non-small cell lung cancer, right COMPREHENSIVE METABOLIC PANEL (NON-FASTING) STAT 01/04/2020 8:38 AM EST Non-small cell lung cancer, right documented in this encounter Results * (ABNORMAL) Differential, Automated (01/04/2020 8:38 AM EST) Neutrophils % 57.0 % [facility] Neutr Abs (ANC) 6.45(H) 1.70 - 6.10 x10(3)/mc L [facility] Lymphocytes % 29.6 % [facility] Lymphocytes Abs 3.4(H) 0.9 - 3.2 x10(3)/mc L [facility] Monocytes % 11.8 % [facility] Monocyte Abs 1.3(H) 0.3 - 0.9 x10(3)/mc L [facility] Eosinophils % 0.2 % [facility] Eosinophils Abs 0.0 0.0 - 0.4 x10(3)/mc L [facility] Basophils % 0.8 % [facility] Basophils Abs 0.1 0.0 - 0.1 x10(3)/mc L [facility] Immature Gran % 0.60 % [facility] Comment: Immature granulocytes(IG's)percentage and absolute count will include metamyelocytes, myelocytes, and promyelocytes. Blood smears from CBCs yielding IG's will be scanned manually for concordance. If this scan disagrees with the automated IG or if promyelocytes are noted, a manual differential will be performed. Wilma Gran Abs 0.07(H) 0.00 - 0.04 x10(3)/mc L [facility] Blood specimen (specimen) 01/04/2020 8:38 AM EST 01/04/2020 8:47 AM EST Narrative Resulting Agency Comment Spec In Lab Toño West MD HEMATOLOGY ORDER KATHY [facility] [place] [address] * (ABNORMAL) Hemogram (01/04/2020 8:38 AM EST) WBC 11.3(H) 4.0 - 9.5 x10(3)/[facility] RBC 3.39(L) 4.00 - 5.21 x10(6)/[facility] Hemoglobin 10.5(L) 11.7 - 15.5 gm/dL [facility] Hematocrit 31.2(L) 35.7 - 45.8 % [facility] MCV 92.0 82.6 - 94.4 fL [facility] MCH 31.0 27.1 - 32.0 pg [facility] MCHC 33.7 31.7 - 35.0 gm/dL [facility] Platelets 189 145 - 357 x10(3)/[facility] RDWSD 51.3(H) 37.0 - 46.0 fL [facility] RDWCV 16.9(H) 11.5 - 14.1 % [facility] MPV 9.3 7.6 - 12.9 fL [facility] nRBC % Auto 0.0 % [facility] nRBC Abs Auto 0.000 0.000 - 0.000 x10(3)/mcL [facility] Blood specimen (specimen) 01/04/2020 8:38 AM EST 01/04/2020 8:47 AM EST Narrative Resulting Agency Comment Spec In Lab Toño West MD HEMATOLOGY ORDER KATHY [facility] [place] [address] * (ABNORMAL) Comprehensive metabolic panel (non-fasting) (01/04/2020 8:38 AM EST) Glucose Lvl 98 65 - 199 mg/dL [facility] Comment:Diabetes: >=200 mg/d L plus symptoms BUN 24(H) 8 - 18 mg/dL [facility] Creatinine 1.18 0.70 - 1.20 mg/dL [facility] Sodium 138 135 - 145 mmol/L [facility] Potassium 4.0 3.5 - 5.0 mmol/L [facility] Comment: Please note: ??Patients with WBC >100,000 may have falsely elevated Potassium levels. ??For accurate Potassium quantification in these patients send serum separator tube (gold top) for subsequent determinations. ??Contact the Clinical Chemistry Laboratory if there are any questions. Chloride 102 98 - 107 mmol/L [facility] CO2 21(L) 22 - 31 mmol/L [facility] Anion Gap 15 5 - 15 mmol/L [facility] Calcium 9.4 8.5 - 10.5 mg/dL [facility] Total Protein 7.1 6.1 - 8.0 gm/dL [facility] Albumin 4.0 3.2 - 5.2 gm/dL [facility] AST 23 0 - 30 unit/L [facility] ALT 19 0 - 30 unit/L [facility] Alk Phos 126(H) 35 - 105 unit/L [facility] Total Bilirubin 0.2 0.2 - 1.3 mg/dL [facility] Estimated GFR 50(L) >=60 mL/min/1. 73 m?? [facility] Comment: The eGFR was calculated using the CKD-EPI equation. As with all creatinine based estimates of kidney function, eGFR values calculated with the CKD-EPI equation are not accurate in patients with acute kidney failure, extremes of body mass or the acutely ill. [email or web address] eGFR 58(L) >=60 mL/min/1. 73 m?? [facility] Comment: The eGFR was calculated using the CKD-EPI equation. As with all creatinine based estimates of kidney function, eGFR values calculated with the CKD-EPI equation are not accurate in patients with acute kidney failure, extremes of body mass or the acutely ill. [email or web address] Blood specimen (specimen) 01/04/2020 8:38 AM EST 01/04/2020 8:47 AM EST Narrative Resulting Agency Comment Spec In Lab Toño West MD CHEMISTRY ORDERA BLES Performing Organization Address City/[facility]/ZIP Co de Phone Number [facility] [place] [address] * Lactate Dehydrogenase (01/04/2020 8:38 AM EST) LDH Not Perf 110 - 220 [facility] Comment:Unable to quantitate due to sample hemolysis. Sample redraw suggested. Blood specimen (specimen) 01/04/2020 8:38 AM EST 01/04/2020 8:47 AM EST Narrative Resulting Agency Comment Spec In Lab Toño West MD CHEMISTRY ORDERA BLES Performing Organization Address City/[facility]/ZIP Co de Phone Number [facility] [place] [address] documented in this encounter Visit Diagnoses Diagnosis Non-small cell lung cancer, right documented in this encounter Care Teams Airline Operations Agent Relationship Specialty Start Date End Date Kathy Wright APRN PCP - General Family Medicine 04/22/19 documented as of this encounter
--- OUTSIDE RECORDS SUMMARY | 2024-06-24 01:10 | XMS_ITS | Encounter Summary ---
Author Organization [facility] [place] [address] Care Team Providers Care Head Golf Coach Name Role Phone GerardoKathy nicolas Butch DANIEL Primary Care Provider [phone] Reason for Visit * Reason Comments Follow-up Encounter Details Date Type Department Care Team (Late st Contact Info) Description 12/15/2019 11:15 AM EST Office Visit Hematology [place] [address] Adrienne Mendez [facility] [place]ATOLOGY[place] [address] Non-small cell lung cancer, right Social History [...] Sign Reading Time Taken Comments Blood Pressure 91/44 12/15/2019 11:14 AM EST Pulse 87 12/15/2019 11:14 AM EST Temperature 36.1 ??C (97 ??F) 12/15/2019 11:14 AM EST Respiratory Rate 16 12/15/2019 11:14 AM EST Oxygen Saturation 99% 12/15/2019 11:14 AM EST Inhaled Oxygen Concentration - - Weight 64.9 kg (143 lb) 12/15/2019 11:14 AM EST Height 154.5 cm (5' 0.83) 12/15/2019 11:[address] Body Mass Index 27.17 12/15/2019 11:14 AM EST documented in this encounter Progress Notes * Adrienne Mendez, DIGITAL BUSINESS ANALYST - 12/15/2019 11:15 AM EST Images from the original note [...] RLL.??A dedicated??CT Chest was performed??07/02/18??which demonstrated stable [id number]-[id number] nodules in the RLL, largest measuring 9 [...] in October 2019. She received Cycle 2 last week. Comes today for symptom assessment and re- evaluation. Fatigue has been difficult. Energy level decreases after treatment and then recovers. Fatigue is more pronounced today than it was after the first cycle of treatment. Sleeping well. Napping about 1 hr per day. Her activity level is quite limited by breathing and lightheadedness. Breathing has been gradually worsening since surgery. No acute change in breathing. No SOB at rest.There is dyspnea with minimal exertion. Slight cough, managed with tessalon, non-productive. No hemoptysis. No chest pain. Has COPD and hasn't been using the maintenance inhaler recently because she forgot about it. Has an appt with her PCP next week and plans to discuss COPD management at that time. There is lightheadedness which started with chemotherapy and occurs with positional changes. She isdrinking tea and water, about 32 oz per day. There is nausea, managed with anti-emetics. No vomiting. Denies taste changes. Eating small amounts, unchanged since getting chemotherapy. Weight is stable. No fevers/chills, change in vision, difficulty swallowing, abd pain, dysuria, change in balance, falls, focal weakness, sensory complaints, bleeding, rash, new or worsening pain. There have been HAs for the past 4 days, managed with tylenol. These are overall improving. Heartburn is managed with PPI and PRN tums. Constipation is managed with stool softeners. Had mouth sores with C1, no recurrencethus far with C2. Used BMX with good effect and the sores did not interfere with her oral intake. ROS See HPI. ROS otherwise unremarkable. PMHX: [...] 2.78) performed by Juan Ny MD at [facility] MAIN OR ? ? PRO INJECTION ANES AGENT &/ STEROID INTERCOSTAL NERVE EA ADDL LEVEL Right 10/06/2019 NERVE BLOCK, INTERCOSTAL NERVE, MULTIPLE (WRVU 1.68) performed by Juan Ny MD at [facility] MAIN OR ??? PRO THORACOSCOPY SURG LOBECTOMY Right 10/06/2019 @ROBOT XI THORACOSCOPY,SURGICAL,W\LOBECTOMY,TOTAL OR SEGMENTAL (WRVU 24.64) performed by Juan Ny MD at [facility] MAIN OR ??? PRO THORACOSCOPY WITH MEDIASTINAL AND REGIONAL LYMPHADENECTOMY Right 10/06/2019 @ROBOT XI THORACOSCOPY,SURG; W/MEDIASTINAL& REGIONAL LYMPHADENECTOMY (WRVU 4.12) performed by Juan Ny MD at [facility] MAIN OR ??? PRO THORACOSCOPY WITH WEDGE RESECTION AND ANATOMIC LUNG RESECTN Right 10/06/2019 @ROBOT XI THORACOSCOPY,SURG; W/DX WEDGE RESC W/ANATOMIC LUNG RESC (WRVU 3) performed by Juan Ny MD at [facility] MAIN OR MEDS: Current Outpatient Medications [...] 1,000 unit Tablet 1,000 Units daily. ??? FLOVENT HFA 110 mcg/actuation HFA Aerosol Inhaler 2 puffs 2 times daily as needed. 5 ??? levothyroxine (SYNTHROID) 100 mcg Tablet 1 tablet daily. 3 ??? metoprolol tartrate (LOPRESSOR) 50 mg Tablet 1 tablet 2 times daily. 4 ??? Ranitidine HCl (ZANTAC) 300 mg Capsule 1 capsule nightly. 5 ??? omeprazole (PRILOSEC) 40 mg capsule [...] Reported on 11/09/2019) 60 tablet 1 ??? clonazePAM (KLONOPIN) 0.5 mg Tablet 1 tablet nightly as needed. 3 ??? cloNIDine (CATAPRES) 0.1 mg Tablet 1 tablet daily. 3 ??? albuterol 90 mcg/actuation HFA Aerosol Inhaler Inhale 2 puffs into the lungs every 4 hours as needed for Wheezing. Use with spacer No current facility-administered medications on file prior to visit. Allergies: Allergies Allergen Reactions ??? Cis Free Text Allergy COMBID. ??? Isopropamide ??? 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) ETOH: Smoking: quit smoking in August 2019 (quit cold-turkey), previously smoking 1+PPD for 42 years Marijuana or illicit drug use: edible marijuana (has a medical marijuana card) PHYSICAL EXAM Vitals: 12/15/19 1114 BP: 91/44 Patient Position: Sitting Pulse: 87 Resp: 16 Temp: 36.1 ??C (97 ??F) TempSrc: Temporal SpO2: 99% Weight: 64.9 kg (143 lb) Height: 154.5 cm (5' 0.83) Wt Readings from Last 3 Encounters: 12/15/19 64.9 kg (143 lb) 12/07/19 64.9 kg (143 lb) 11/29/19 65.9 kg (145 lb 3.2 oz) GENERAL: Marleni Arreola appears well and is [...] (non-fasting) Result Value Ref Range Glucose Lvl 119 65 - 199 mg/dL BUN 36 (H) 8 - 18 mg/dL Creatinine 2.10 (H) 0.70 - 1.20 mg/dL Sodium 135 135 - 145 mmol/L Potassium 4.2 3.5 - 5.0 mmol/L Chloride 95 (L) 98 - 107 mmol/L CO2 24 22 - 31 mmol/L Anion Gap 16 (H) 5 - 15 mmol/L Calcium 9.8 8.5 - 10.5 mg/dL Total Protein 7.2 6.1 - 8.0 gm/dL Albumin 4.1 3.2 - 5.2 gm/dL AST 20 0 - 30 unit/L ALT 29 0 - 30 unit/L Alk Phos 105 35 - 105 unit/L Total Bilirubin 0.4 0.2 - 1.3 mg/dL eGFR 25 (L) >=60 mL/min/1.73 m?? eGFR 29 (L) >=60 mL/min/1.73 m?? Hemogram Result Value Ref Range WBC 3.4 (L) 4.0 - 9.5 x10(3)/mcL RBC 3.55 (L) 4.00 - 5.21 x10(6)/mcL Hemoglobin 10.9 (L) 11.7 - 15.5 gm/dL Hematocrit 32.3 (L) 35.7 - 45.8 % MCV 91.0 82.6 - 94.4 fL MCH 30.7 27.1 - 32.0 pg MCHC 33.7 31.7 - 35.0 gm/dL Platelets 135 (L) 145 - 357 x10(3)/mcL RDWSD 43.7 37.0 - 46.0 fL RDWCV 13.5 11.5 - 14.1 % MPV 9.9 7.6 - 12.9 fL nRBC % Auto 0.0 % nRBC Abs Auto 0.000 0.000 - 0.000 x10(3)/mcL RADIOLOGY STUDIES REVIEWED: Brain MRI 11/23/19: No evidence of intracranial metastatic disease. CXR from today: IMPRESSION: Posttreatment changes on the right. No acute pathology identified. ASSESSMENT: Marleni is a 59 y/o woman with stage IIIa NSCLC after being found to have an FDG-avid pulmonary nodule. 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 She started adjuvant cisplatin/pemetrexed on . She received Cycle 2 last week, with the plan for a total of 4 cycles. She met with radiation oncology and decided against radiation. She comes today for a symptom assessment. Her main complaints are fatigue, dyspnea and lightheadedness. Vital signs with low BP. Laboratory studies reveal acute kidney injury (Cr 2.10). CXR without any acute findings to explain slow worsening of dyspnea. The plan is to give 1L of NS in infusion today, increase PO fluid intake, hold enalapril-hydrochlorothiazide and recheck BMP at [facility] on Friday. Recommend restarting COPD regimen for dyspnea. Will bring her back to clinic prior to C3 to determine whether we need to change from cisplatin to carboplatin for subsequent cycles of chemotherapy. The patient understands that despite completing all therapy, she will be at significant risk for recurrence and regular surveillance will be recommended. Recheck BMP on Friday AM at [facility]. RTC in 2 weeks with labs, clinic, infusion for cisplatin/pemetrexed. Cancel infusion at [facility]. Send note to PCP. Pt will call in the meantime with any new or worsening sx. documented in this encounter Plan of Treatment Not on file documented as of this encounter Results * XR Chest PA [...] report, please contact the number below. Adrienne Mendez DIGITAL BUSINESS ANALYST IMG DX ORDERABLES documented in this encounter Visit Diagnoses Diagnosis Non-small cell lung cancer, right Non-small cell lung cancer, right documented in this encounter Care Teams Head Golf Coach Relationship Specialty Start Date End Date Kathy Wright APRN PCP - General Family Medicine 04/22/19 documented as of this encounter
--- OUTSIDE RECORDS SUMMARY | 2024-06-24 01:10 | XMS_ITS | Encounter Summary ---
Author Organization [facility] [place] [address] Care Team Providers Care Metal Fabricating Shop Helper Name Role Phone Kathy Wright APRN Primary Care Provider [phone] Encounter Details Date Type Department Care Team (Late st Contact Info) Description 12/07/2019 Orders Only Hematology [place] [address] Toño West MD [facility] [place] [address] Social History Tobacco Use Types Packs/Day Years [...] on filedocumented in this encounter Care Teams Metal Fabricating Shop Helper Relationship Specialty Start Date End Date Kathy Wright APRN PCP - General Family Medicine 04/22/19 documented as of this encounter
--- OUTSIDE RECORDS SUMMARY | 2024-06-24 01:10 | XMS_ITS | Encounter Summary ---
Author Organization [facility] [place] [address] Care Team Providers Care Serologist Name Role Phone GerardoKathy nicolas Butch DANIEL Primary Care Provider [phone] Reason for Visit * Reason Onset Date Comments Medication Refill 11/25/2019 Encounter Details Date Type Department Care Team (Late st Contact Info) Description 11/25/2019 Refill [place] [address] Scarlett Castillo, RN Social History Tobacco Use [...] Telephone Encounter - Scarlett Castillo, RN - 11/25/2019 8:30 AM EST Follow-up: scientific associate to follow-up with CBC, CMP tomorrow from [facility]. ?? No results by the end of clinic day on 11/23. ?? scientific associate to follow-up on lab results on 11/25. Lab results received, entered into ED-H & reviewed with Adrienne Mendez APRN. Pt should push fluids & start magnesium oxide 400 mg po daily. Continue tessalon perles for cough. T/C to patient: Call placed to patient to f/u on lab results & discuss starting magnesium. Spoke to pt who states I am just not catching any breaks. Reports new mouth pain. Sore on both sides of tongue. Mouth & lips are really dry. Gums are hurting & has white gunk in the corners ofher mouth. Throat is not red & doesn't hurt to swallow No bleeding & denies fever. Uncomfortable to eat drink. Has rinsed with peroxide which was very painful. Cough is better but is still congested. Tessalon perles have really helped. Feels like she has a cold & also has nasal congestion. No fever & denies any increased SOB. A/P: Discussed mucositis with Adrienne Mendez APRN. Have pt rinse mouth with salt water/baking sodamix. Start BMX for mouth pain. Call placed back to pt to discuss. Instructed patient to rinse & gargle with oral rinses of salt & baking soda at least 6-8 times a day (1/4 tsp table salt mixed with 1/2 tsp baking soda in 4ounces of water),avoid commercial mouthwashes (biotene is ok), push po fluids, eat soft foods, avoiding hot, spicy or acidic foods, avoid smoking and alcohol usage. Reviewed instructions for BMX & reason for use. Also instructed to start magnesium 400 mg po daily. Prescriptions pended to SENIOR PROJECT CONTROLS SPECIALIST forreview, approval & signature. Advised to call back directly if there are further questions, or if these symptoms fail to improve as anticipated or worsen. Pt in agreement with plan and knows to call clinic with any concerns and/or questions. documented in this encounter Plan of Treatment Not on file documented as of this encounter Procedures Procedure Name Priority Date/Time Associated Diagnosis Comments CBC (WITH DIFF) Routine 11/23/2019 3:35 PM EST COMPREHENSIVE METABOLIC PANEL (NON-FASTING) Routine 11/23/2019 3:35 PM EST documented in this encounter Results * (ABNORMAL) Comprehensive metabolic panel (non-fasting) (11/23/2019 3:35 PM EST) Glucose Lvl 129(A) 74 - 106 BUN 14(Externa l Lab) 7 - 18 Creatinine 1.27(EXTER NAL/ABN) 0.55 - 1.02 Sodium 141(Senior It Project Manager al Lab) 136 - 145 Potassium 3.5(Senior It Project Manager al Lab) 3.5 - 5.1 Chloride 101(Senior It Project Manager al Lab) 98 - 107 CO2 31(Externa l Lab) 21 - 32 Calcium 8.8(Senior It Project Manager al Lab) 8.5 - 10.1 Total Protein 7.3(Senior It Project Manager al Lab) 6.4 - 8.2 Albumin 3.7(Senior It Project Manager al Lab) 3.4 - 5 Total Bilirubin 0.2(Senior It Project Manager al Lab) 0.2 - 1 Alk Phos 123(Senior It Project Manager al Lab) 46 - 116 AST 24(Externa l Lab) 15 - 37 ALT 59(Externa l Lab) 14 - 59 Magnesium 1.3(LIBRARY DIRECTOR AL/ABN) 1.8 - 2.4 mg/dL LDH 227(Senior It Project Manager al Lab) 82 - 234 Blood specimen (specimen) 11/23/2019 3:35 PM EST Historical Provider CHEMISTRY ORDERAB LES * (ABNORMAL) CBC (with Diff) (11/23/2019 3:35 PM EST) WBC 3.67(EXTER NAL/ABN) 4.4 - 10.8 Hemoglobin 12.2(Exter nal Lab) 12.0 - 15.5 Hematocrit 36.1(Exter nal Lab) 36.0 - 46.0 Platelets 227(Senior It Project Manager al Lab) 130 - 400 Neutr Abs (ANC) 1.77(Exter nal Lab) 1.2 - 6.7 Blood specimen (specimen) 11/23/2019 3:35 PM EST Historical Provider HEMATOLOGY ORDERA BLES documented in this encounter Visit Diagnoses Not on filedocumented in this encounter Care Teams Serologist Relationship Specialty Start Date End Date Kathy Wright APRN PCP - General Family Medicine 04/22/19 documented as of this encounter
--- OUTSIDE RECORDS SUMMARY | 2024-06-24 01:10 | XMS_ITS | Encounter Summary ---
Author Organization [facility] Address [facility] [place] [address] Care Team Providers Care Spiral Runner Name Role Phone Kathy Wright MARÍA Primary Care Provider [phone] Reason for Visit * Reason Comments Chemotherapy Cisplatin/Alimta, Cy ga 1, Day 1 * Treatment/Therapy Plan Authorization (Routine) - Closed Specialty Diagnoses / Procedures Referred By Janie cassidy Referred To Contact Hematology and Oncology Diagnoses Non-small cell lung cancer, right Procedures TC PALONOSETRON HCL, 25MCG, INJECTION (ALOXI) TC APREPITANT, 1 MG, INJECTION TC PEMETREXED, 10MG, INJECTION (ALIMTA) TC CISPLATIN, POWDER OR SOLUTION, 10MG, INJECTION Toño West MD [facility] [place] [address] [facility] [address] [address] [place] [address] Referral ID Status Reason Start Date Expiration Date Visits Re quested Visits Authorized [id number] Closed 11/09/2019 11/08/2020 12 12 Encounter Details Date Type Department Care Team (Late st Contact Info) Description 11/16/2019 9:00 AM EST Infusion Hematology Oncology at [address] [phone] Non-small cell lung cancer, right [...] Sign Reading Time Taken Comments Blood Pressure 97/77 11/16/2019 8:58 AM EST Pulse 74 11/16/2019 8:58 AM EST Temperature 36.4 ??C (97.5 ??F) 11/16/2019 8:58 AM ES T Respiratory Rate 20 11/16/2019 8:58 AM EST Oxygen Saturation - - Inhaled Oxygen Concentration - - Weight 68 kg (150 lb) 11/16/2019 8:58 AM EST Height 154.7 cm (5' 0.91) 11/16/2019 8:58 AM ES T Body Mass Index 28.43 11/16/2019 8:58 AM EST documented in this encounter Progress Notes * Leslie Giraldo RN - 11/16/2019 9:00 AM EST INFUSION THERAPY ADMINISTRATION NOTES DIAGNOSIS: Lung cancer VISIT REASON: Cisplatin/Alimta infusions SUBJECTIVE Marleni offers no complaints. OBJECTIVE LAB DATA: WBC 6.87, HGB 12.5, PLTS 303, ANC 3.38, Creat 1.03 IV ACCESS: PIV Pre administration: Chemotherapy orders independently verified for drug name, route, and dosage per patient's height, weight and BSA by Leslie Giraldo RN & [facility]. Prior to administration of Cisplatin, Marleni voided 200 cc of urine. REACTIONS (DESCRIPTION, TIME, INTERVENTION AND EFFECTIVENESS) none ASSESSMENT Marleni was awake, alert and tolerated treatment well. Post Cisplatin infusion Marleni voided 200 cc of urine. PLAN Return to clinic per routine. Pt. chemo teaching instructions included: During clinic hours (8am-5pm Friday-Friday): pt. can call [phone] with questions or concerns. After clinic hours (5pm-8am Friday-Friday and weekends) pt can call [phone] and ask for the tissue specialist/oncologist internal corrosion specialist. Marleni Arreola verbalized understanding of potential chemotherapy side effects and home care including but not limited to- handwashing to prevent infection, signs and symptoms of low blood counts (fever, fatigue, bleeding), to call with a fever of 100.4 or greater, any significant constipation/diarrhea, importance of nutrition and fluid intake (drinking at least 32-64 ounces of non-caffeinated beverages/day), mouth care. Marleni Arreola verbalized understanding of how to take prescription medications given for home useafter chemotherapy. documented in this encounter Plan of Treatment [...] over 2 Minutes, ONCE, 1 dose, On Fri11/16/19 at 0945, Alternative administration of IV push over 2 minutes is a recommendation from the asbestos coverer. Administer prior to chemotherapy., Routine Given 11/16/2019 10:02 AM EST 130 mg CISplatin (PLATINOL) 125 mg in sodium chloride 0.9% 625 mL chemo infusion 125 mg (rounded from 125.25 mg = 75 mg/m2/dose ? 1.67 m2 Treatment Plan BSA from Recorded weight), Intravenous, ONCE, 1 dose, On Fri11/16/19 at 1045, Administer over 120 Minutes New Bag 11/16/2019 11:34 AM EST 125 mg 313 mL/hr cyanocobalamin (vitamin B-12) injection 1,000 mcg 1,000 mcg, Subcutaneous, ONCE, 1 dose, On Fri11/16/19 at 0945, Administer prior to PEMEtrexed. Confirm last date of Vitamin B12 administration., Routine Given 11/16/2019 10:03 AM EST 1,000 mcg Right Arm dexamethasone (DECADRON) injection 10 mg 10 mg, Intravenous, ONCE, 1 dose, On Fri11/16/19 at 0945, Administer prior to chemotherapy Given 11/16/2019 10:02 AM EST 10 mg magnesium sulfate 1g in dextrose 5% 100mL 1 g, Intravenous, EVERY HOUR, 2 doses, First dose (after last modification) on Fri11/16/19 at 1130, Last dose on Fri11/16/19 at 1200, Administer over 60 Minutes, Total dose is 2 grams. Post - CISplatin New Bag 11/16/2019 12:25 PM EST 1 g 100 mL/hr New Bag 11/16/2019 11:30 AM EST 1 g 100 mL/hr palonosetron (ALOXI) injection 0.25 mg 0.25 mg, Intravenous, ONCE, 1 dose, On Fri11/16/19 at 0945, Administer over 30 seconds., Routine Given 11/16/2019 10:03 AM EST 0.25 mg PEMEtrexed (ALIMTA) 800 mg in sodium chloride 0.9% 132 mL chemo infusion 800 mg, Intravenous, ONCE, 1 dose, On Fri11/16/19 at 1045, Administer over 10 Minutes, Incompatable with calcium containing IV products, Dose Ordered = 835 mg (500 mg/m2). Pharmacist rounded dose per procedure. New Bag 11/16/2019 11:19 AM EST 800 mg 792 mL/hr sodium chloride 0.9% infusion 1,000 mL, at 500 mL/hr, Intravenous, CONTINUOUS, Starting on Fri11/16/19 at 0945, Until Fri11/16/19 at 1144, Pre CISplatin New Bag 11/16/2019 9:15 AM EST 1,000 mLs 500 mL/hr sodium chloride 0.9% with potassium chloride 20 mEq infusion 1,000 mL, at 500 mL/hr, Intravenous, CONTINUOUS, Starting on Fri11/16/19 at 1315, Until Fri11/16/19 at 1514, Post - CISplatin New Bag 11/16/2019 11:21 AM EST 1,000 mLs 500 mL/ hr documented in this encounter Care Teams Spiral Runner Relationship Specialty Start Date End Date Kathy Wright APRN PCP - General Family Medicine 04/22/19 documented as of this encounter
--- OUTSIDE RECORDS SUMMARY | 2024-06-24 01:10 | XMS_ITS | Encounter Summary ---
[place] [address] Care Team Providers Care Shoe Trimmer Name Role Phone Kathy Wright APRN Primary Care Provider [phone] Encounter Details Date Type Department Care Team (Late st Contact Info) Description 11/23/2019 Ancillary Procedure [place] [address] Kathy Wright APRN [address], [place] [id number] Social History Tobacco Use Types Packs/Day Years [...] Associated Diagnosis Comments FILM LIBRARY STORAGE ONLY MR HEAD Routine 11/23/2019 12:00 AM EST documented in this encounter Results * Film Library- Storage Only MR Head (11/23/2019 12:00 AM EST) Narrative [facility] - 11/26/2019 8:57 AM EST This exam is auto-finalizing. It's purpose is for storage only. Kathy Wright APRN IMG FILM LIBRARY ORD ERABLES [place], [place] documented in this encounter Visit Diagnoses Not on filedocumented in this encounter Care Teams Shoe Trimmer Relationship Specialty Start Date End Date Kathy Wright, MARÍA PCP - General Family Medicine 04/22/19 documented as of this encounter
--- OUTSIDE RECORDS SUMMARY | 2024-06-24 01:11 | XMS_ITS | Encounter Summary ---
[place] [address] Care Team Providers Care Finishing Area Supervisor Name Role Phone Kathy Wright APRN Primary Care Provider [phone] Encounter Details Date Type Department Care Team (Late st Contact Info) Description 09/16/2019 Notes [place] [address] Christina Almonte Social History Tobacco Use Types Packs/Day Years Used Date Smoking Tobacco: Former Cigarettes 0.5 42 0 07/02/1977 - 07/02/2019 Smokeless Tobacco: Former Quit: 07/02/2019 Alcohol Use Standard Drinks/Week Comments Never 0 (1 standard drink = 0.6 oz pur e alcohol) Sex and Gender Information Value Date Recorded Sex Assigned at Not on file Gender Identity Not on file Sexual Orientation Not on file documented as of this encounter Progress Notes * Christina Almonte - 09/16/2019 4:15 PM EDT Patient has quit smoking and feels confident about staying quit. documented in this encounter Plan of Treatment Not on file documented as of this encounter Visit Diagnoses Not on filedocumented in this encounter Care Teams Finishing Area Supervisor Relationship Specialty Start Date End Date Kathy Wright APRN PCP - General Family Medicine 04/22/19 documented as of this encounter
--- OUTSIDE RECORDS SUMMARY | 2024-06-24 01:11 | XMS_ITS | Encounter Summary ---
Author Organization [facility] [place] [address] Care Team Providers Care Heel Washer Stringing Machine Operator Name Role Phone GerardoKathy nicolas Butch DANIEL Primary Care Provider [phone] Reason for Visit * Reason Onset Date Comments Appointment 10/22/2019 Encounter Details Date Type Department Care Team (Late st Contact Info) Description 10/22/2019 Telephone Radiation Oncology at [address] [phone] Lay Hauser Appointment Social History Tobacco Use [...] Telephone Encounter - Lay Hauser - 10/22/2019 12:51 PM EST Called and lvm for patient to call back and schedule a NPW with NK on 10/25 in [place] or 11/15 with NK in [facility]. documented in this encounter Plan of Treatment Not on file documented as of this encounter Visit Diagnoses Not on filedocumented in this encounter Care Teams Heel Washer Stringing Machine Operator Relationship Specialty Start Date End Date Kathy Wright APRN PCP - General Family Medicine 04/22/19 documented as of this encounter
--- OUTSIDE RECORDS SUMMARY | 2024-06-24 01:11 | XMS_ITS | Encounter Summary ---
[place] [address] Care Team Providers Care Bioprocess Development Engineer Name Role Phone Kathy Wright APRN Primary Care Provider [phone] Encounter Details Date Type Department Care Team (Late st Contact Info) Description 10/06/2019 [place] [phone] Kip Wood II Social History Tobacco Use Types Packs/Day Years [...] encounter Miscellaneous Notes * Telephone Encounter - Kip Wood II - 10/06/2019 11:07 AM EST Called to notify Marleni of her bumped appt. Letter sent via mail to let her know documented in this encounter Plan of Treatment Not on file documented as of this encounter Visit Diagnoses Not on filedocumented in this encounter Care Teams Bioprocess Development Engineer Relationship Specialty Start Date End Date Kathy Wright APRN PCP - General Family Medicine 04/22/19 documented as of this encounter
--- OUTSIDE RECORDS SUMMARY | 2024-06-24 01:11 | XMS_ITS | Encounter Summary ---
[place] [address] Care Team Providers Care Business Support Manager Name Role Phone Kathy Wright MARÍA Primary Care Provider [phone] Reason for Visit * Reason Onset Date Comments Other 10/12/2019 post op call Encounter Details Date Type Department Care Team (Late st Contact Info) Description 10/12/2019 Telephone [place] [phone] Anna Owen, RN Other (post op call) Social History Tobacco Use Types Packs/Day Years [...] Telephone Encounter - Anna Owen RN - 10/12/2019 4:04 PM EST Thoracic Surgery Nursing Post-operative Follow up: Unable to reach Mrs. Arreola, left message requesting a call back to check in since she has been home. Hx: s/p R VATS with RLL basilar segmentectomy on 10/06/19 POD#: 7 General statement: Pain: tylenol 1000 mg alternate with ibuprofen 200 mg (2-3 tabs) every 3 hours : ex. Schedule - Tylenol 1000 mg at 8am, Ibuprofen 200 mg (2-3 tabs) at 11 am, then tylenol 1000 mg at 2 pm, then ibuprofen 200 mg (2-3 tabs) at 5 pm. Do not exceed more than 4000 mg of tylenol in 24 hour period. GI: appetite: Hydration: Voiding: BM: Respiratory: using IS as directed SOB: Coughing with or without sputum Activity: Integumentary: J-tube: CRIS drain: Mini Atrium: ? Air leak: check for an air leak PleurX catheter: Drainage output: Plan: RTC on CXR documented in this encounter Plan of Treatment Not on file documented as of this encounter Visit Diagnoses Not on filedocumented in this encounter Care Teams Business Support Manager Relationship Specialty Start Date End Date Kathy Wright APRN PCP - General Family Medicine 04/22/19 documented as of this encounter
--- OUTSIDE RECORDS SUMMARY | 2024-06-24 01:11 | XMS_ITS | Encounter Summary ---
Author Organization [facility] Address [facility] [place] [address] Care Team Providers Care Manufacturing Design Engineer Name Role Phone Kathy Wright Butch DANIEL Primary Care Provider [phone] Reason for Visit * Auth/Cert Specialty Diagnoses / Procedures Referred By Janie cassidy Referred To Contact Diagnoses Lung nodule right lower lobe lung nodule Procedures PRO THORACOSCOPY WITH WEDGE RESECTION AND ANATOMIC LUNG RESECTN PRO BRONCHOSCOPY, DIAGNOSTIC @ROBOT XI THORACOSCOPY,SURG; W/DX WEDGE RESC W/ANATOMIC LUNG RESC (WRVU 3) BRONCHOSCOPY, DIAGNOSTIC (WRVU 2.78) MODIFIER ROBOT,DAVINCI XI Referral ID Status Reason Start Date Expiration Date Visits Re quested Visits Authorized [id number] 1 1 Encounter Details Date Type Department Care Team (Late st Contact Info) Description 10/06/2019 2:42 PM EST Anesthesia Event [place] [id number] Donya Cordero MD [facility] [place] [address] [place] [address] [facility] [place] [address] [place] [address] Anesthesia Record Procedure Summary Procedure Name Responsible Anesthesiologist Anesthesia Start Time Anesthesia Stop Time @ROBOT XI THORACOSCOPY,SURG; W/DX WEDGE RESC W/ANATOMIC LUNG RESC (WRVU 3) (Right: Chest) Donya Cordero MD 10/06/19 1442 10/06/19 1829 Events Date Time Event Comment 10/06/2019 1209 1442 AN Verify 1442 Start 1442 An Start Data 1452 An Induction 1454 An Intubation 1456 FO Bronchoscopy 1458 Anesthesia Ready 1506 Turned LLD 1507 FO Bronchoscopy 1509 An one lung vent 1517 Procedure Start 1519 Quick Note Insufflation 1554 ABG Data Arterial Blood Gas result: pH 7.429 pCO2 36.8 pO2 64.5 %O2 Sat 95 FiO2 77 HCO3 23.8 BE -0.5 Hb 12.6 K 3.44 Glucose 122 Lactate 2.05 1706 Quick Note Left lung clamp ed, positive pressure breaths to right lung 1707 An one lung vent 1716 Handoff Intra-procedure anesthesia care was transferred after review of the patient's history, current anesthetic/surgical status and plan, according to the ANES Provider Handoff Checklist. 1750 An Dual Lung Vent 182 Extubation/LMA Out 182 an stop data 182 Recovery or ICU Handoff Coco ent care was transferred to the destination unit staff after review of the patient's medical history, current anesthetic/surgical status and plan, according to the Provider Handoff Checklist. 182 Stop Meds Name Total Midazolam 2 mg IV Lidocaine 40 mg Propofol 280 mg Rocuronium 70 mg PHENYLephrine 480 mcg Ondansetron 4 mg Dexamethasone 8 mg Neostigmine 3 mg Glycopyrrolate 0.5 mg ceFAZolin (ANCEF) 2g in dextrose 5% 100 mL 4 g Dexmedetomidine 8 mcg PHENYLephrine INF 5,320 mcg HYDROmorphone 0.8 mg lactated ringers infusion 400 mL Lactated Ringers 400 mL * Agents Name O2 Air N2O Sevoflurane (et) * Blood No blood administrations on file. Lines, Drains, and Airways Type Details Placement Removal Urethral Catheter 10/06/19; Physician order; indwelling double lumen catheter; latex, silicone coated; 14; inserted at this facility; drainage bag to dependent drainage; urethral catheter removed, tubing intact; 10/07/19; 0936 10/06/19 0000 by Patricia Rodarte RN 10/07/19 0936 by Malka Claire RN Incision 10/06/19; abdomen; laparoscopic punctures (specify); Multiple trocar sites.; 07/29/22 (LDA cleanup utility RA#[id number]); 1715 (LDA cleanup utility RA#[id number]) 10/06/19 0000 by Patricia Rodarte RN 07/29/22 1715 by Marika Childs (RETIRED) Peripheral IV Line - Single Lumen 10/06/19; 1233; metacarpal vein (top of hand), right; uexi-oiy-elpanl catheter system; 22 gauge; Patricia Shi RN; distraction, intradermal injection, tolerated well; 2; median cubital vein (antecubital fossa), left, metacarpal vein (top of hand), left; 10/08/19; 1318 10/06/19 1233 by Patricia Shi RN 10/08/19 131 by Brandi Collins RN ETT Mask Ventilation: Ea sy (1); ETT Type: Cuffed, Oral; Double Lumen: 37 Fr, Left; Mac Blade: 3; Notes: Asleep, Pre-O2, Stylette; Attempts: 1; Laryngoscopy Grade: 1; ETT Placement Verified By: Auscultation, Capnometry, Visual; Secured at Teeth: 28 cm; Inserted by: Jean Bhat CRNA; Removal Date: 10/06/19; Removal Time: 182010/06/19 145 by Eva Bhat CRNA 10/06/191820 by Les Lewis CRNA (RETIRED) Peripheral IV Line - Single Lumen 10/06/19; 1458; median vein (underside of arm), left; yrpu-zla-ievdci catheter system; 18 gauge; Obed Medina MD; 10/08/19; 1318 10/06/19 1458 by Eva Bhat BUSINESS INSTRUCTOR 10/08/19 1318 by Brandi Collins RN Arterial Line 10/06/19; 1458; radi al artery, right; 20 gauge; Eva Bhat CRNA; Sterile Prep, Sterile Gloves; catheter intact, no longer indicated; 10/06/19; 211210/06/19 145 by Eva Bhat, BUSINESS INSTRUCTOR 10/06/192112 by Khadra Garcia RN Chest Tube 10/06/19; 1757; Righ t; lateral; 28Fr. ; 10/07/19 (removed by MD at bedside); 1040 10/06/19 1757 by Shayy Landon RN 10/07/19 1040 by Malka Claire RN documented in this encounter Social History Tobacco Use Types Packs/Day Years [...] on file documented as of this encounter OR Notes * Anesthesia Postprocedure Evaluation - Donya Cordero MD - 10/06/2019 7:40 PM EST Department of Anesthesiology Post-procedure Note Patient: Marleni Arreola Procedure Summary Date: 10/06/19 Room / Location: [facility] MAIN OR Anesthesia Start: 1442 Anesthesia Stop: 1828 Procedures: @ROBOT XI THORACOSCOPY,SURG; W/DX WEDGE RESC W/ANATOMIC LUNG RESC (WRVU 3) (Right Chest) BRONCHOSCOPY, DIAGNOSTIC (WRVU 2.78) (N/A ) MODIFIER ROBOT,DAVINCI XI (N/A ) NERVE BLOCK, INTERCOSTAL NERVE, MULTIPLE (WRVU 1.68) (Right ) @ROBOT XI THORACOSCOPY,SURG; W/MEDIASTINAL& REGIONAL LYMPHADENECTOMY (WRVU 4.12) (Right Chest) @ROBOT XI THORACOSCOPY,SURGICAL,W\LOBECTOMY,TOTAL OR SEGMENTAL (WRVU 24.64) (Right Chest) Diagnosis: Lung nodule (right lower lobe lung nodule) Surgeon: Juna Ny MD Responsible Provider: Donya Cordero MD Anesthesia Type: general ASA Status: 3 All Anesthesia Providers: Anesthesiologist: Donya Cordero MD; Obed Medina MD BUSINESS INSTRUCTOR: Les Lewis CRNA; Eva Bhat CRNA Student Nurse Systems Trainer: Promise Pantoja Vitals Value Taken Time BP 118/62 10/06/2019 7:30 PM Temp Pulse 82 10/06/2019 7:40 PM Resp 9 10/06/2019 7:40 PM SpO2 98 % 10/06/2019 7:39 PM Pain Level 5 10/06/2019 7:14 PM Vitals shown include unvalidated device data. Patient Location: PACU/[facility] Level of Consciousness: Awake and Alert Pain Management: Satisfactory Analgesia PONV: None Cardiovascular Status: At Baseline and Hemodynamically Stable Respiratory Status: Supplemental O2 (NC or FM) Postoperative Fluid Status: Intravascular EUvolemia Possible Anesthetic Complications: NONE apparent at time of evaluation Final Primary Anesthesia Type: General (The anesthetic type performed was the same as planned.) Comments: Donya Cordero MD * Anesthesia Preprocedure Evaluation - Obed Medina MD - 10/06/2019 12:07 PM EST Pre-Anesthesia Evaluation for: Marleni Arreola a 59 y.o. female. Procedure(s): @ROBOT XI THORACOSCOPY,SURG; W/DX WEDGE RESC W/ANATOMIC LUNG RESC (WRVU 3) BRONCHOSCOPY, DIAGNOSTIC (WRVU 2.78) MODIFIER ROBOT,DAVINCI XI Patient Active Problem List Diagnosis ??? Lung nodule ??? Dizziness ??? Closed compression fracture of body of L1 vertebra Past Medical History: Diagnosis Date ??? Chronic pain fibromyalgia ??? COPD (chronic obstructive pulmonary disease) COPD-wel controlled ??? Gastroesophageal reflux takes antacids for which controls ??? High blood pressure controllled with medications ??? Motion sickness only on a boat ??? Vertigo for 2 weeks-w/u neg-uses a cane to be steady No past surgical history on file. Social History Tobacco Use ??? Smoking status: Former Smoker Packs/day: 0.50 Years: 42.00 Pack years: 21.00 Types: Cigarettes Last attempt to quit: 07/02/2019 Years since quittin.2 ??? Smokeless tobacco: Former User Quit date: 07/02/2019 Substance Use Topics ??? Alcohol use: Never Social History Substance and Sexual Activity Drug Use Never Allergies Allergen Reactions ??? Cis Free Text Allergy COMBID. ??? Isopropamide ??? Prochlorperazine Medications: MAR and/or home medications have been reviewed. Physical Exam: Most Recent Vitals: 10/06/19 1153 BP: 150/69 Pulse: 73 Resp: Temp: 36.1 ??C (97 ??F) SpO2: 93% Body mass index is 28.34 kg/m??. Height: 154.9 cm (5' 1) Weight: 68 kg (150 lb) Airway Assessment: Mallampati: II TM distance: >3 FB Neck ROM: full Cardiovascular Assessment: cardiovascular exam normal Pulmonary Assessment: (+) rhonchi Dental Assessment: (+) upper dentures Misc Assessment: Anesthesia Plan: ASA 3 general, with a(n) intravenous induction Pt seen chart reviewed r lung mass discovered incidentally s/p fall and RT exams No SOB, cough, or hemoptysis PMHx; -CAD -SOB -CP, good exercise tolerance +HTN -DM +RAD rare inhaler Former smoker (stopped x 3 mos) -Liver/kidney disease -URI -GERD NPO Anes Hx - for complications R & B reviewed Plan RIVERA +/- penny Region - Intrathoracic Non-Cardiac Informed Consent: Anesthetic plan and risks discussed with patient. Use of blood products discussed with patient who consented to blood products. Plan discussed with BUSINESS INSTRUCTOR. PAT Clinic Note documented in this encounter Plan of Treatment Not on file documented as of this encounter Visit Diagnoses Not on filedocumented in this encounter Administered Medications Inactive Administered Medications - up to 3 most recent administrations Medication Order MAR Action Action Date Dose Rate Site ceFAZolin (ANCEF) 2g in dextrose 5% 100 mL 2 g, Intravenous, EVERY 3 HOURS, 1 dose, First dose on Fri10/06/19 at 1215, Administer over 30 Minutes, Intra-Operative (Intra-Procedure), Indication for (Active or Suspected): Prophylaxis Given 10/06/2019 5:58 PM EST 2 g Given 10/06/2019 2:58 PM EST 2 g dexamethasone (DECADRON) injection PRN, Starting on Fri10/06/19 at 1533, Until Fri10/06/19 at 1829, Anesthesia Intra-op, Routine Given 10/06/2019 3:33 PM EST 8 mg dexmedetomidine (PRECEDEX) injection PRN, Starting on Fri10/06/19 at 1516, Until Fri10/06/19 at 1829, Anesthesia Intra-op, Routine Given 10/06/2019 3:16 PM EST 8 mcg glycopyrrolate (ROBINUL) multi-dose injection PRN, Starting on Fri10/06/19 at 1758, Until Fri10/06/19 at 1829, Anesthesia Intra-op, Routine Given 10/06/2019 5:58 PM EST 0.5 mg HYDROmorphone (DILAUDID) injection PRN, Starting on Fri10/06/19 at 1803, Until Fri10/06/19 at 1829, Anesthesia Intra-op, Routine Given 10/06/2019 6:08 PM EST 0.4 mg Given 10/06/2019 6:03 PM EST 0.4 mg lactated ringers infusion 1,000 mL, at 100 mL/hr, Intravenous, CONTINUOUS, Starting on Fri10/06/19 at 1215, Until Fri10/06/19 at 2123, Day of Surgery (Day of Procedure) New Bag 10/06/2019 2:42 PM EST lactated ringers infusion CONTINUOUS PRN, Starting on Fri10/06/19 at 1458, Until Fri10/06/19 at 1829, Anesthesia Intra-op New Bag 10/06/2019 2:58 PM EST lidocaine (PF) (XYLOCAINE) 100 mg/5 mL (2 %) injection PRN, Starting on Fri10/06/19 at 1454, Until Fri10/06/19 at 1829, Anesthesia Intra-op, Routine Given 10/06/2019 2:54 PM EST 40 mg midazolam (PF) (VERSED) multi-dose injection PRN, Starting on Fri10/06/19 at 1442, Until Fri10/06/19 at 1829, Anesthesia Intra-op, Routine Given 10/06/2019 2:42 PM EST 2 mg neostigmine (BLOXIVERZ) injection PRN, Starting on Fri10/06/19 at 1758, Until Fri10/06/19 at 1829, Anesthesia Intra-op, Routine Given 10/06/2019 5:58 PM EST 3 mg ondansetron (ZOFRAN) injection PRN, Starting on Fri10/06/19 at 1748, Until Fri10/06/19 at 1829, Anesthesia Intra-op, Routine Given 10/06/2019 5:48 PM EST 4 mg PHENYLephrine (BENJAMIN-SYNEPHRINE) 20 mg in sodium chloride 250 mL (standard ADULT & Pedi greater than 20kg) infusion CONTINUOUS PRN, Starting on Fri10/06/19 at 1548, Until Fri10/06/19 at 1829, Anesthesia Intra-op, Routine New Bag 10/06/2019 3:48 PM EST 40 mcg/min 30 mL/hr PHENYLephrine in NS (PF) (BENJAMIN-SYNEPHRINE) 0.8 mg/10 mL (80 mcg/mL) multi-dose injection Syrg PRN, Starting on Fri10/06/19 at 1529, Until Fri10/06/19 at 1829, Anesthesia Intra-op, Routine Given 10/06/2019 4:17 PM EST 80 mcg Given 10/06/2019 3:55 PM EST 160 mcg Given 10/06/2019 3:48 PM EST 80 mcg propofol (DIPRIVAN) 10 mg/mL bolus injection (Anesthesia) PRN, Starting on Fri10/06/19 at 1454, Until Fri10/06/19 at 1829, Anesthesia Intra-op Given 10/06/2019 3:21 PM EST 40 mg Given 10/06/2019 3:18 PM EST 40 mg Given 10/06/2019 2:58 PM EST 50 mg rocuronium (ZEMURON) multi-dose injection PRN, Starting on Fri10/06/19 at 1454, Until Fri10/06/19 at 1829, Anesthesia Intra-op, Routine Given 10/06/2019 5:44 PM EST 10 mg Given 10/06/2019 4:13 PM EST 10 mg Given 10/06/2019 2:54 PM EST 50 mg documented in this encounter Care Teams Manufacturing Design Engineer Relationship Specialty Start Date End Date Kathy Wright, GIFT WRAPPER PCP - General Family Medicine 04/22/19 documented as of this encounter
--- OUTSIDE RECORDS SUMMARY | 2024-06-24 01:11 | XMS_ITS | Encounter Summary ---
Author Organization [facility] [place] [address] Care Team Providers Care Exercise Equipment Repair Technician Name Role Phone Kathy Wright MARÍA Primary Care Provider [phone] Reason for Visit * Reason Onset Date Comments Other 10/15/2019 call to check in regarding BM. Encounter Details Date Type Department Care Team (Late st Contact Info) Description 10/15/2019 Telephone [place] [phone] Anna Owen RN Other (call to check in regarding BM.) Social History Tobacco Use Types Packs/Day Years [...] Telephone Encounter - Anna Owen RN - 10/15/2019 4:00 PM EST TC to Ms. Arreola Unable to reach Ms. Arreola, left a message requesting a call back in regards to BM's. documented in this encounter Plan of Treatment Not on file documented as of this encounter Visit Diagnoses Not on filedocumented in this encounter Care Teams Exercise Equipment Repair Technician Relationship Specialty Start Date End Date Kathy Wright APRN PCP - General Family Medicine 04/22/19 documented as of this encounter
--- OUTSIDE RECORDS SUMMARY | 2024-06-24 01:11 | XMS_ITS | Encounter Summary ---
Author Organization [facility] [place] [address] Care Team Providers Care Zinc Plate Grainer Name Role Phone GerardoKathy nicolas Butch DANIEL Primary Care Provider [phone] Encounter Details Date Type Department Care Team (Latest Contact Info) Description 09/16/2019 12:00 PM EDT Clinical [place] [address] Cigarette nicotine dependence without complication; Lung nodule; Vertigo Social History Tobacco Use Types Packs/Day Years [...] as of this encounter Progress Notes * Lela Salas RN - 09/16/2019 12:00 PM EDT PAT questionnaire reviewed with patient while in Pre Admission testing. Pre- operative instruction booklet reviewed with patient. Reviewed importance of pain control and cough and deep breathing exercise during the post-operative period. Instructed patient on use of Hibiclens soap to shower with thenight before surgery or the morning of surgery. Pt verbalizes a good understanding of all information reviewed PLAN Testing: Blood work and EKG performed while in PAT. Special medication instructions: None Procedure date: 10/06 Ny documented in this encounter Plan of Treatment Not on file documented as of this encounter Procedures Procedure Name Priority Date/Time Associated Diagnosis Comments EKG 12-LEAD Routine 09/16/2019 12:51 PM EDT Cigarette nicotine dependence without complication Lung nodule Vertigo documented in this encounter Results * EKG 12 Lead (09/16/2019 12:51 PM EDT) Ventricular rate 80 BPM MUSE SYSTEM Atrial Rate 80 BPM MUSE SYSTEM P-R Interval 154 ms MUSE SYSTEM QRS Duration 98 ms MUSE SYSTEM Q-T Interval 416 ms MUSE SYSTEM QTC Calculated (Bezet) 479 ms MUSE SYSTEM Calculated P [place] 52 degrees MUSE SYSTEM Calculated R [place] 56 degrees MUSE SYSTEM Calculated T [place] 40 degrees MUSE SYSTEM INTERPRETATION Normal sinus rhythm RSR' or QR pattern in V1 suggests right ventricular conduction delay Otherwise normal ECG No previous ECGs available Confirmed by MD Danyelle, Mehran Tristan ([id number]) on 09/16/2019 4:36:55 PM MUSE SYSTEM 09/16/2019 12:5 1 PM EDT 09/16/2019 4:36 PM EDT Juan Ny MD ECG ORDERABLES MUSE SYSTEM documented in this encounter Visit Diagnoses Diagnosis Cigarette nicotine dependence without complication Tobacco use disorder Lung nodule Solitary pulmonary nodule Vertigo Dizziness and giddiness documented in this encounter Care Teams Zinc Plate Grainer Relationship Specialty Start Date End Date Kathy Wright APRN PCP - General Family Medicine 04/22/19 documented as of this encounter
--- OUTSIDE RECORDS SUMMARY | 2024-06-24 01:11 | XMS_ITS | Encounter Summary ---
[place] [address] Care Team Providers Care Look Out Tower Fire Watcher Name Role Phone Kathy Wright MARÍA Primary Care Provider Reason for Visit * Reason Onset Date Comments Other 09/28/2019 call regarding p omar Encounter Details Date Type Department Care Team (Late st Contact Info) Description 09/28/2019 Telephone [place] [phone] Anna Owen, RN Other (call regarding plan) Social History Tobacco Use Types Packs/Day Years [...] Telephone Encounter - Anna Owen RN - 09/28/2019 9:05 AM EDT TC to Mrs. Arreola Unable to reach Ms. Arreola - left a message regarding her echocardiogram and that her surgery is allset for October. Requested a call back ?? documented in this encounter Plan of Treatment Not on file documented as of this encounter Visit Diagnoses Not on filedocumented in this encounter Care Teams Look Out Tower Fire Watcher Relationship Specialty Start Date End Date Kathy Wright APRN PCP - General Family Medicine 04/22/19 documented as of this encounter
--- OUTSIDE RECORDS SUMMARY | 2024-06-24 01:11 | XMS_ITS | Encounter Summary ---
Author Organization [place] [address] Care Team Providers Care Solar Sales Advisor Name Role Phone GerardoKathy nicolas Butch DANIEL Primary Care Provider [phone] Reason for Referral * Diagnostic Test (Routine) - Denied Specialty Diagnoses / Procedures Referred By Contac t Referred To Contact Radiology Diagnoses Nodule of lower lobe of right lung Procedures CT Chest w Contrast [facility] Thoracic Surg [address] [place] [id number] [facility] [place] [address] Referral ID Status Reason Start Date Expiration Date V isits Requested Visits Authorized [id number] Denied Specialty Service Requested 09/15/2019 09/14/2020 1 0 Reason for Visit * Diagnostic Test (Routine) - Denied Specialty Diagnoses / Procedures Referred By Contac t Referred To Contact Radiology Diagnoses Nodule of lower lobe of right lung Procedures CT Chest w Contrast [facility] Thoracic Surg [address] [place] [phone] [facility] [place] [address] Referral ID Status Reason Start Date Expiration Date V isits Requested Visits Authorized [id number] Denied Specialty Service Requested 09/15/2019 09/14/2020 1 0 Encounter Details Date Type Department Care Team (Latest Contact Info) Description 09/16/2019 7:30 AM EDT - 09/16/2019 11:59 PM EDT Hospital Encounter CT Scan at [facility] [address] Juan Ny MD [facility] [place] [address] Nodule of lower lobe of right lung Discharge Disposition: Home Social History Tobacco [...] Take 20 mg by mouth daily. 01/30/2010 oxyCODONE (ROXICODONE) 5 mg Tablet Take 1 tablet by mouth every 4 hours as needed for Pain. 15 tablet 10/08/2019 11/29/2019 enalapril-hydrochloroth iazide (VASERETIC) 10-25 mg Tablet 1 tablet daily. 5 03/20/2019 3 buPROPion (WELLBUTRIN) 100 mg Tablet 1 tablet daily. 04/19/2019 01/21/2023 cholecalciferol, Vitamin D3, 1,000 unit Tablet 1,000 Units daily. 04/05/2019 3 cloNIDine (CATAPRES) 0.1 mg Tablet 1 tablet daily. 3 02/13/2019 01/21/2023 naproxen (NAPROSYN) 375 mg Tablet 1 tablet 2 times daily as needed. 04/05/2019 10/21/2019 oxyCODONE (ROXICODONE) 5 mg Tablet 1 tablet 3 times daily. 0 05/02/2019 10/08/2019 Ranitidine HCl (ZANTAC) 300 mg Capsule 1 capsule nightly. 5 04/27/2019 023 documented as of this encounter Plan of Treatment Not on file documented as of this encounter Procedures Procedure Name Priority Date/Time Associated Diagnosis Comments CT CHEST W CONTRAST Routine 09/16/2019 9 :28 AM EDT Nodule of lower lobe of right lung documented in this encounter Results * CT Chest w Contrast (09/16/2019 9:28 AM EDT) Anatomical Region Laterality Modality Chest Computed Tomogra phy Impressions 09/16/2019 11:26 AM EDT 15 mm right lower lobe pulmonary nodule has been present dating back to April 18, 2019 (outside CT), but remains concerning for a slow-growing pulmonary malignancy in this patient with smoking history. 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 Accessory ostium draining a confluence of a posterior right upper lobe and apical right lower lobe pulmonary vein. Hepatic steatosis. Atrophy of the right kidney. Thank you for letting us participate in the care of this patient. For questions regarding this report, please contact the number below. ? Narrative 09/16/2019 11:26 AM EDT EXAMINATION: CT CHEST W CONTRAST CLINICAL HISTORY: FDG avid right lower lobe lung nodule, please eval for changes and thoracic surgical planning TECHNIQUE: Chest CT with 60 ml of Omnipaque 350. COMPARISON: PET/CT August 04, 2019. FINDINGS: Pulmonary parenchyma: Accounting for interobserver variability, the 15 mm mildly lobulated and mildly spiculated pulmonary nodule at the right lower lobe base is very similar compared to the prior exam (series 3, image 141). Underlying centrilobular emphysema is seen again. No acute pulmonary pathology. Airways: Central and segmental airways are patent. Pleura: No effusion. Heart and vasculature: Overall size of the heart is within normal limits. Normal caliber and contour of the thoracic aorta. No pericardial effusion. Noted is a broad-based aneurysm of the interatrial septum, which bulges into the right atrium. Also, note is made of an anatomic pulmonary venous variant with an accessory ostium that drains veins from the posterior aspect of the right upper lobe as well as the apex of the right lower lobe (series 900, image 45). Limited upper abdomen: Diffuse low-density of the liver parenchyma consistent with hepatic steatosis. Punctate calcific density in the spleen. Atrophic right kidney. Skeleton: Fracture deformity of vertebral body L1 with mild focal narrowing of the spinal canal is stable. Procedure Note Haley Smith MD - 09/16/2019 EXAMINATION: CT CHEST W CONTRAST CLINICAL HISTORY: FDG avid right lower lobe lung nodule, please eval forchanges and thoracic surgical planning TECHNIQUE: Chest CT with 60 ml of Omnipaque 350. COMPARISON: PET/CT August 04, 2019. FINDINGS: Pulmonary parenchyma: Accounting for interobserver variability, the 15 mmmildly lobulated and mildly spiculated pulmonary nodule at the right lower lobebase is very similar compared to the prior exam (series 3, image 141). Underlying centrilobular emphysema is seen again. No acute pulmonarypathology. Airways: Central and segmental airways are patent. Pleura: No effusion. Heart and vasculature: Overall size of the heart is within normal limits.Normal caliber and contour of the thoracic aorta. No pericardial effusion. Notedis a broad-based aneurysm of the interatrial septum, which bulges into theright atrium. Also, note is made of an anatomic pulmonary venous variant with anaccessory ostium that drains veins from the posterior aspect of the right upper lobeas well as the apex of the right lower lobe (series 900, image 45). Limited upper abdomen: Diffuse low-density of the liver parenchymaconsistent with hepatic steatosis. Punctate calcific density in the spleen. Atrophicright kidney. Skeleton: Fracture deformity of vertebral body L1 with mild focalnarrowing of the spinal canal is stable. IMPRESSION 15 mm right lower lobe pulmonary nodule has been present dating back toMay 2018 (outside CT), but remains concerning for a slow-growing pulmonary malignancy in this patient with smoking history. 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 Accessory ostium draininga confluence of a posterior right upper lobe and apical right lower lobepulmonary vein. Hepatic steatosis. Atrophy of the right kidney. Thank you for letting us participate in the care of this patient. Forquestions regarding this report, please contact the number below. Electronically signed by: Haley Cline [facility]([phone]), at 09/16/2019 11:26 AM Juan Ny MD IMG CT ORDERABLES documented in this encounter Visit Diagnoses Diagnosis Nodule of lower lobe of right lung documented in this encounter Administered Medications Inactive Administered Medications - up to 3 most recent administrations Medication Order MAR Action Action Date Dose Rate Site iohexol (OMNIPAQUE) 350 mg/mL solution 0-200 mL 0-200 mL, Intravenous, ONCE PRN, 1 dose, Starting on Cheryl 09/16/19 at 0917, Until Cheryl 09/16/19 at 0925, Per Protocol, Warning Vesicant/Irritant Medication , Radiology Contrast, Routine Given 09/16/2019 9:25 AM EDT 60 mLs documented in this encounter Care Teams Solar Sales Advisor Relationship Specialty Start Date End Date Kathy Wright, MORTGAGE BRANCH MANAGER PCP - General Family Medicine 04/22/19 documented as of this encounter
--- OUTSIDE RECORDS SUMMARY | 2024-06-24 01:11 | XMS_ITS | Encounter Summary ---
Author Organization Formerly [facility] Address [facility] [place] [address] Care Team Providers Care Improvement Auditor Name Role Phone Kathy Wright APRN Primary Care Provider [phone] Encounter Details Date Type Department Care Team (Late st Contact Info) Description 09/21/2019 Notes Only [place] [address] Juan Ny MD [facility] [place] [address] Social History Tobacco Use Types Packs/Day Years [...] as of this encounter Progress Notes * Juan Ny MD - 09/21/2019 7:06 PM EDT Per Chuck Rodarte in the spine surgery clinic, she is cleared for thoracic surgery from a compression fracture standpoint. This was communicated directly to me via eD message. Juan Ny MD 09/21/2019 documented in this encounter Plan of Treatment Not on file documented as of this encounter Visit Diagnoses Not on filedocumented in this encounter Care Teams Improvement Auditor Relationship Specialty Start Date End Date Kathy Wright APRN PCP - General Family Medicine 04/22/19 documented as of this encounter
--- OUTSIDE RECORDS SUMMARY | 2024-06-24 01:11 | XMS_ITS | Encounter Summary ---
Author [place] [address] Care Team Providers Care Guide Cruise Name Role Phone Kathy Wright APRN Primary Care Provider [phone] Encounter Details Date Type Department Care Team (Late st Contact Info) Description 09/16/2019 11:00 AM EDT Office Visit [place] [address] Christina Almonte Cigarette nicotine dependence with withdrawal Social History Tobacco Use Types Packs/Day Years [...] Progress Notes * Christina Almonte - 09/16/2019 11:00 AM EDT Patient has quit smoking and feels confident about staying quit documented in this encounter Plan of Treatment Not on file documented as of this encounter Visit Diagnoses Diagnosis Cigarette nicotine dependence with withdrawal Drug withdrawal documented in this encounter Care Teams Guide Cruise Relationship Specialty Start Date End Date Kathy Wright APRN PCP - General Family Medicine 04/22/19 documented as of this encounter
--- OUTSIDE RECORDS SUMMARY | 2024-06-24 01:11 | XMS_ITS | Encounter Summary ---
[place] [address] Care Team Providers Care Smt Machine Operator Name Role Phone GerardoKathy nicolas Butch DANIEL Primary Care Provider [phone] Encounter Details Date Type Department Care Team (Latest Contact Info) Description 09/16/2019 12:40 PM EDT Laboratory [place] [address] Cigarette nicotine dependence without complication; Lung nodule; [...] Name Priority Date/Time Associated Diagnosis Comments HEMOGRAM Routine 09/16/2019 12:43 PM EDT Cigarette nicotine dependence without complication Lung nodule Vertigo DIFFERENTIAL, AUTOMATED Routine 09/16/2019 12:43 PM EDT Cigarette nicotine dependence without complication Lung nodule Vertigo HC CBC,PLT & AUTO DIFF Routine 9 12:43 PM EDT Cigarette nicotine dependence without complication Lung nodule Vertigo COMPREHENSIVE METABOLIC PANEL (NON-FASTING) Routine 09/16/2019 12:43 PM EDT Cigarette nicotine dependence without complication Lung nodule Vertigo documented in this encounter Results * Differential, Automated (09/16/2019 12:43 PM EDT) Neutrophils % 50.6 % [facility] Neutr Abs (ANC) 4.22 1.70 - 6.10 x10(3)/[facility] Lymphocytes % 37.5 % [facility] Lymphocytes Abs 3.1 0.9 - 3.2 x10(3)/[facility] Monocytes % 7.2 % [facility] Monocyte Abs 0.6 0.3 - 0.9 x10(3)/[facility] Eosinophils % 3.1 % [facility] Eosinophils Abs 0.3 0.0 - 0.4 x10(3)/[facility] Basophils % 1.1 % [facility] Basophils Abs 0.1 0.0 - 0.1 x10(3)/[facility] Immature Gran % 0.50 % [facility] Comment: Immature granulocytes(IG's)percentage and absolute count will include metamyelocytes, myelocytes, and promyelocytes. Blood smears from CBCs yielding IG's will be scanned manually for concordance. If this scan disagrees with the automated IG or if promyelocytes are noted, a manual differential will be performed. Wilma Gran Abs 0.04 0.00 - 0.04 x10(3)/[facility] Blood specimen (specimen) 09/16/2019 12:43 PM EDT 09/16/2019 1:05 PM EDT Narrative Resulting Agency Comment Spec In Lab Juan Ny MD HEMATOLOGY ORDERABL ES [facility] [place] [address] * Hemogram (09/16/2019 12:43 PM EDT) WBC 8.3 4.0 - 9.5 x10(3)/[facility] RBC 4.54 4.00 - 5.21 x10(6)/[facility] Hemoglobin 13.6 11.7 - 15.5 gm/dL [facility] Hematocrit 42.3 35.7 - 45.8 % [facility] MCV 93.2 82.6 - 94.4 fL [facility] MCH 30.0 27.1 - 32.0 pg [facility] MCHC 32.2 31.7 - 35.0 gm/dL [facility] Platelets 249 145 - 357 x10(3)/[facility] RDWSD 45.5 37.0 - 46.0 [facility] RDWCV 13.3 11.5 - 14.1 % [facility] MPV 9.6 7.6 - 12.9 [facility] nRBC % Auto 0.0 % [facility] nRBC Abs Auto 0.000 0.000 - 0.000 x10(3)/[facility] Blood specimen (specimen) 09/16/2019 12:43 PM EDT 09/16/2019 1:05 PM EDT Narrative Resulting Agency Comment Spec In Lab Juan Ny MD HEMATOLOGY ORDERABL ES [facility] [place] [address] * (ABNORMAL) Comprehensive metabolic panel (non-fasting) (09/16/2019 12:43 PM EDT) [facility] Glucose Lvl 94 65 - 199 mg/dL [facility] Comment:Diabetes: >=200 mg/d L plus symptoms BUN 8 8 - 18 mg/dL [facility] Creatinine 0.91 0.70 - 1.20 mg/dL [facility] Sodium 138 135 - 145 mmol/L [facility] Potassium 4.0 3.5 - 5.0 mmol/L [facility] Comment: Please note: ??Patients with WBC >100,000 may have falsely elevated Potassium levels. ??For accurate Potassium quantification in these patients send serum separator tube (gold top) for subsequent determinations. ??Contact the Clinical Chemistry Laboratory if there are any questions. Chloride 99 98 - 107 mmol/L [facility] CO2 24 22 - 31 mmol/L [facility] Anion Gap 15 5 - 15 mmol/L [facility] Calcium 9.6 8.5 - 10.5 mg/dL [facility] Total Protein 7.8 6.1 - 8.0 gm/dL [facility] Albumin 4.6 3.2 - 5.2 gm/dL [facility] AST 32(H) 0 - 30 unit/L [facility] ALT 45(H) 0 - 30 unit/L [facility] Alk Phos 97 35 - 105 unit/L [facility] Total Bilirubin 0.3 0.2 - 1.3 mg/dL [facility] Estimated GFR 69 >=60 mL/min/1. 73 m?? [facility] Comment: The eGFR was calculated using the CKD-EPI equation. As with all creatinine based estimates of kidney function, eGFR values calculated with the CKD-EPI equation are not accurate in patients with acute kidney failure, extremes of body mass or the acutely ill. [email or web address] ENIDnkf eGFR 80 >=60 mL/min/1. 73 m?? [facility] Comment: The eGFR was calculated using the CKD-EPI equation. As with all creatinine based estimates of kidney function, eGFR values calculated with the CKD-EPI equation are not accurate in patients with acute kidney failure, extremes of body mass or the acutely ill. [email or web address] Blood specimen (specimen) 09/16/2019 12:43 PM EDT 09/16/2019 12:52 PM EDT Narrative Resulting Agency Comment Spec In Lab Juan Ny MD CHEMISTRY ORDERABLE S [facility] [place] [address] documented in this encounter Visit Diagnoses Diagnosis Cigarette nicotine dependence without complication Tobacco use disorder Lung nodule Solitary pulmonary nodule Vertigo Dizziness and giddiness documented in this encounter Care Teams Smt Machine Operator Relationship Specialty Start Date End Date Kathy Wright, IP COUNSEL PCP - General Family Medicine 04/22/19 documented as of this encounter
--- OUTSIDE RECORDS SUMMARY | 2024-06-24 01:11 | XMS_ITS | Encounter Summary ---
Author Organization [facility] Address [facility] [place] [address] Care Team Providers Care Archives Technician Name Role Phone Kathy Wright MARÍA Primary Care Provider [phone] Reason for Referral * Diagnostic Test (Routine) - Closed Specialty Diagnoses / Procedures Referred By Contac t Referred To Contact Cardiology Diagnoses Cigarette nicotine dependence without complication Lung nodule Vertigo Procedures Echocardiogram Transthoracic([facility]) Juan Ny MD [facility] [place] [address] [facility] [place] [address] Referral ID Status Reason Start Date Expiration Date V isits Requested Visits Authorized [id number] Closed Specialty Service Requested 09/17/2019 12/16/2019 1 1 Reason for Visit * Diagnostic Test (Routine) - Closed Specialty Diagnoses / Procedures Referred By Contac t Referred To Contact Cardiology Diagnoses Cigarette nicotine dependence without complication Lung nodule Vertigo Procedures Echocardiogram Transthoracic([facility]) Juan Ny MD [facility] [place] [address] [facility] [place] [address] Referral ID Status Reason Start Date Expiration Date V isits Requested Visits Authorized [id number] Closed Specialty Service Requested 09/17/2019 12/16/2019 1 1 Encounter Details Date Type Department Care Team (Latest Contact Info) Description 09/22/2019 1:38 PM EDT - 09/22/2019 11:59 PM EDT Hospital Encounter Non[place] [address] Juan Ny MD [facility] [place] [address] Cigarette nicotine dependence without complication; Lung nodule; Vertigo Discharge Disposition: Home Social History Tobacco Use [...] Procedure Name Priority Date/Time Associated Diagnosis Comments ECHO COMPLETE W CONTRAST Routine 09/22/2019 3:05 PM EDT Cigarette nicotine dependence without complication Lung nodule Vertigo documented in this encounter Results * ECHO COMPLETE W CONTRAST (09/22/2019 3:05 PM EDT) Pathologist [facility] EF 64 HEARTLAB SYSTEM Anatomical Region Laterality Modality Other 09/22/2019 Narrative 09/22/2019 5:12 PM EDT Procedure: ?Transthoracic Echocardiogram Patient: ?KADEN Puente ? (Age): 1960(59y) Med Rec#: ? [id number] ?Sex: ?F ? Site Loc: ? [facility] ?Ht / Wt: ??155(cm)/68(kg) Pt. Loc: ?Echo Lab ?BSA: ?1.67 Study Date: ?? 09/22/2019 ?Pt. Type: Outpatient Tape: ? Referring: DEBRA Reading: Alejandro Oakley ([id number]) Wrapper Operator: Esteban Solorio [facility] Nurse: Kailyn Garcia Diagnosis: *Solitary pulmonary nodule (R91.1) *Dizziness and giddiness (R42) *Nicotine dependence, cigarettes, uncomplicated (F17.210) BP: ? 136/84 SUMMARY: 1. The left ventricular chamber size is normal. The quantitative left ventricular ejection fraction by biplane Lawrence's method is 64%. There are no left ventricular segmental wall motion abnormalities. Assessment of diastolic function is indeterminate. 2. Right ventricular global systolic function is low normal. The right ventricle is normal in size. 3. The left atrium is normal in size. The right atrium appears normal. 4. The aortic valve is probably tricuspid. There is no evidence of aortic valve stenosis. There is no evidence of aortic regurgitation. 5. The mitral valve leaflets are mildly thickened. There is trace mitral regurgitation present. 6. The tricuspid valve appears normal in structure and function. There is trace tricuspid regurgitation present. 7. The inferior vena cava appears normal in size with less than 50% respiratory change in dimension consistent with elevated right atrial pressure. 8. There is no prior echocardiogram available for comparison Findings ? : Study Quality: ? Adequate Left Ventricle: ? The left ventricular chamber size is normal. ?Left ventricular wall thickness is normal. ?There is no evidence of LVOT obstruction. ?No ventricular septal defect is visualized. ?There is normal global left ventricular systolic function. ?The quantitative left ventricular ejection fraction by biplane Lawrence's method is 64%. ?There are no left ventricular segmental wall motion abnormalities. ?Assessment of diastolic function is indeterminate. Left Atrium: ? The left atrium is normal in size. Right Ventricle: ? The right ventricle is normal in size. ?Right ventricular global systolic function is low normal. ?Pulmonary artery hypertension could not be assessed due to inadequate tricuspid regurgitation jet. Right Atrium: ? The right atrium appears normal. Aortic Valve: ? The aortic valve is not well visualized. ?The aortic valve is probably tricuspid. ?Systolic excursion of the aortic valve is normal. ?There is no evidence of aortic valve stenosis. ?There is no evidence of aortic regurgitation. Mitral Valve: ? The mitral valve leaflets are mildly thickened. ?There is trace mitral regurgitation present. Tricuspid Valve: ? The tricuspid valve appears normal in structure and function. ?There is trace tricuspid regurgitation present. Pulmonic Valve: ? The pulmonic valve appears normal in structure and function. ?There is trace pulmonic regurgitation present. Pericardium: ? The pericardium appears normal and there is no evidence of a pericardial effusion. ?A pericardial fat pad is visualized. Aorta: ? The aortic root is normal in size. ?The ascending aorta is normal in size. Pulmonary Artery: ? The main pulmonary artery appears normal. Venous: ? The inferior vena cava appears normal in size. ?There is less than 50% respiratory change in the inferior vena cava dimension consistent with elevated right atrial pressure. Misc: ? Two-dimensional echo, spectral Doppler and color Doppler performed. ?Optison contrast (one 3 ml vial) was used to enhance endocardial definition. Excess contrast was discarded. Chambers 2D ?Value ?Units (Range) ? IVSd (2D) ? 0.9 ?cm ? LVPWd (2D) ?0.8 ?cm ? IVS:LVPW ratio (2D) 1 ?ratio ? RWT (2D) ?0.4 ?ratio ? RWT PW (2D) ? 0.4 ?ratio ? LVIDd (2D) ?4.4 ?cm ? LVIDs (2D) ?3.6 ?cm ? LVIDd (2D) index ?2.6 ?cm/m2 ? LVIDs (2D) index ?2.2 ?cm/m2 ? LV FS (2D) ?17 ? % ? Ao root diameter (2D3.1 ?cm (2.1 - 3.6) ? Ascending Ao ?2.6 ?cm (2 - 3.5) ? Volumes/Mass ?Value ?Units (Range) ? LA Area 4 CH ?12 ? cm2 (<21) ? RA AREA 4CH ? 10 ? cm2 ? LA ESV BP (MOD) inde15.6 ? ml/m2 ? LV ESV SP 4CH (MOD) 25.3 ? ml ? LV ESV SP 2CH (MOD) 16.5 ? ml ? LV EDV BP ? 60 ? ml ? LV ESV BP ? 21.5 ? ml ? LV EDV BP index ? 35.9 ? ml/m2 ? LV ESV BP index ? 12.9 ? ml/m2 ? BP EF (MOD) ? 64 ? % ? LV mass (2D) ?117.6 ?g ? LV mass (2D) index ??70.4 ? g/m2 ? Diastolic/Systolic Function ?Value ?Units (Range) ? MV E-wave Vmax ?0.4 ?m/sec ? MV deceleration [id number] ?msec ? MV A-wave Vmax ?0.6 ?m/sec ? MV E:A ratio ?0.7 ?ratio ? LV septal e' Vmax ?? 0.1 ?m/sec ? LV lateral e' Vmax ??0.1 ?m/sec ? LV average e' Vmax ??0.1 ?m/sec ? LV E:e' septal ratio7.4 ?ratio ? LV E:e' lateral rati6.4 ?ratio ? LV average E:e' rati7.4 ?ratio ? Wall Motion: Segment Name ?Rest ? Base-Anteroseptal ?? Normal ? Base-Anterior ? Normal ? Base-Anterolateral ??Normal ? Base-Posterolateral Normal ? Base-Inferior ? Normal ? Base-Inferoseptal ?? Normal ? Mid-Anteroseptal ?Normal ? Mid-Anterior ?Normal ? Mid-Anterolateral ?? Normal ? Mid-Posterolateral ??Normal ? Mid-Inferior ?Normal ? Mid-Inferoseptal ?Normal ? [place]-Septal ? Normal ? [place]-Anterior ? Normal ? [place]-Lateral ?Normal ? [place]-Inferior ? Normal ? [place]-Tip ?Normal ? This report has been electronically signed by: Alejandro Oakley MD ? 09/22/2019 17:11:03 Images reviewed and interpretation verified [facility] Cardiac Ultrasound Laboratory Procedure Note Alejandro Oakley MD - 09/22/2019 Procedure: Transthoracic Echocardiogram Patient: KADEN Puente DOB(Age): 1960(59y) Med Rec#: [id number] Sex: F Site Loc: [facility] Ht / Wt: 155(cm)/68(kg) Pt. Loc: Echo Lab BSA: 1.67 Study Date: 09/22/2019 Pt. Type: Outpatient Tape: Referring: DEBRA Reading: Alejandro Oakley ([id number]) Wrapper Operator: Esteban Solorio [facility] Nurse: Kailyn Garcia Diagnosis: *Solitary pulmonary nodule (R91.1) *Dizziness and giddiness (R42) *Nicotine dependence, cigarettes, uncomplicated (F17.210) BP: 136/84 SUMMARY: 1. The left ventricular chamber size is normal. The quantitative left ventricular ejection fraction by biplane Lawrence's method is 64%. There are no left ventricular segmental wall motion abnormalities. Assessment of diastolic function is indeterminate. 2. Right ventricular global systolic function is low normal. The right ventricle is normal in size. 3. The left atrium is normal in size. The right atrium appears normal. 4. The aortic valve is probably tricuspid. There is no evidence of aortic valve stenosis. There is no evidence of aortic regurgitation. 5. The mitral valve leaflets are mildly thickened. There is trace mitral regurgitation present. 6. The tricuspid valve appears normal in structure and function. There is trace tricuspid regurgitation present. 7. The inferior vena cava appears normal in size with less than 50% respiratory change in dimension consistent with elevated right atrial pressure. 8. There is no prior echocardiogram available for comparison Findings : Study Quality: Adequate Left Ventricle: The left ventricular chamber size is normal. Left ventricular wall thickness is normal. There is no evidence of LVOT obstruction. No ventricular septal defect is visualized. There is normal global left ventricular systolic function. The quantitative left ventricular ejection fraction by biplane Lawrence's method is 64%. There are no left ventricular segmental wall motion abnormalities. Assessment of diastolic function is indeterminate. Left Atrium: The left atrium is normal in size. Right Ventricle: The right ventricle is normal in size. Right ventricular global systolic function is low normal. Pulmonary artery hypertension could not be assessed due to inadequate tricuspid regurgitation jet. Right Atrium: The right atrium appears normal. Aortic Valve: The aortic valve is not well visualized. The aortic valve is probably tricuspid. Systolic excursion of the aortic valve is normal. There is no evidence of aortic valve stenosis. There is no evidence of aortic regurgitation. Mitral Valve: The mitral valve leaflets are mildly thickened. There is trace mitral regurgitation present. Tricuspid Valve: The tricuspid valve appears normal in structure and function. There is trace tricuspid regurgitation present. Pulmonic Valve: The pulmonic valve appears normal in structure and function. There is trace pulmonic regurgitation present. Pericardium: The pericardium appears normal and there is no evidence of a pericardial effusion. A pericardial fat pad is visualized. Aorta: The aortic root is normal in size. The ascending aorta is normal in size. Pulmonary Artery: The main pulmonary artery appears normal. Venous: The inferior vena cava appears normal in size. There is less than 50% respiratory change in the inferior vena cava dimension consistent with elevated right atrial pressure. Misc: Two-dimensional echo, spectral Doppler and color Doppler performed. Optison contrast (one 3 ml vial) was used to enhance endocardial definition. Excess contrast was discarded. Chambers 2D Value Units (Range) IVSd (2D) 0.9 cm LVPWd (2D) 0.8 cm IVS:LVPW ratio (2D) 1 ratio RWT (2D) 0.4 ratio RWT PW (2D) 0.4 ratio LVIDd (2D) 4.4 cm LVIDs (2D) 3.6 cm LVIDd (2D) index 2.6 cm/m2 LVIDs (2D) index 2.2 cm/m2 LV FS (2D) 17 % Ao root diameter (2D3.1 cm (2.1 - 3.6) Ascending Ao 2.6 cm (2 - 3.5) Volumes/Mass Value Units (Range) LA Area 4 CH 12 cm2 (<21) RA AREA 4CH 10 cm2 LA ESV BP (MOD) inde15.6 ml/m2 LV ESV SP 4CH (MOD) 25.3 ml LV ESV SP 2CH (MOD) 16.5 ml LV EDV BP 60 ml LV ESV BP 21.5 ml LV EDV BP index 35.9 ml/m2 LV ESV BP index 12.9 ml/m2 BP EF (MOD) 64 % LV mass (2D) 117.6 g LV mass (2D) index 70.4 g/m2 Diastolic/Systolic Function Value Units (Range) MV E-wave Vmax 0.4 m/sec MV deceleration [id number] msec MV A-wave Vmax 0.6 m/sec MV E:A ratio 0.7 ratio LV septal e' Vmax 0.1 m/sec LV lateral e' Vmax 0.1 m/sec LV average e' Vmax 0.1 m/sec LV E:e' septal ratio7.4 ratio LV E:e' lateral rati6.4 ratio LV average E:e' rati7.4 ratio Wall Motion: Segment Name Rest Base-Anteroseptal Normal Base-Anterior Normal Base-Anterolateral Normal Base-Posterolateral Normal Base-Inferior Normal Base-Inferoseptal Normal Mid-Anteroseptal Normal Mid-Anterior Normal Mid-Anterolateral Normal Mid-Posterolateral Normal Mid-Inferior Normal Mid-Inferoseptal Normal Mcarthur-Septal Normal Mc[place]-Anterior Normal Mc[place]-Lateral Normal [place]-Inferior Normal [place]-Tip Normal This report has been electronically signed by: Alejandro Oakley MD 09/22/2019 17:11:03 Images reviewed and interpretation verified [facility] Cardiac Ultrasound [facility] Juan Ny MD ECHO ORDERABLES documented in this encounter Visit Diagnoses Diagnosis Cigarette nicotine dependence without complication Tobacco use disorder Lung nodule Solitary pulmonary nodule Vertigo Dizziness and giddiness documented in this encounter Administered Medications Inactive Administered Medications - up to 3 most recent administrations Medication Order MAR Action Action Date Dose Rate Site perflutren protein-A microspheres (OPTISON) 0.22 mg/mL injection 0.5 mL 0.5 mL, Intravenous, ONCE PRN, 1 dose, Starting on Fri09/22/19 at 1505, Until Fri09/22/19 at 1400, for enhancement of sub-optimal echo images, Echo Lab (Intra-Procedure), Routine Given 09/22/2019 2:00 PM EDT 2 mLs documented in this encounter Care Teams Archives Technician Relationship Specialty Start Date End Date Kathy Wright APRN PCP - General Family Medicine 04/22/19 documented as of this encounter
--- OUTSIDE RECORDS SUMMARY | 2024-06-24 01:11 | XMS_ITS | Encounter Summary ---
Author Organization [facility] [place] [address] Care Team Providers Care Data Warehouse Consultant Name Role Phone Kathy Wright APRN Primary Care Provider [phone] Encounter Details Date Type Department Care Team (Latest Contact Info) Description 10/19/2019 Multidisciplinary Ca re [place] [address] Juan Ny MD [facility] [place] [address] Social History Tobacco Use Types Packs/Day Years [...] Progress Notes * Juan Ny MD - 10/19/2019 10:00 AM EST Thoracic - Tumor Board Note ?? Date Presented: 10/19/2019 Presenting Physician: Anant Diagnosis/Tumor Site: Right lower lobe adenocarcinoma Is this Metastatic Disease: No Synopsis of History/HPI: 59y/o female s/p right basilar segmentectomy of the lower lobe and mediastinal lymph node dissection Imaging: CT, PET/CT Pathology/Histology: adenocarcinoma Stage: pT1bN2, stage IIIA Clinical Trial Availability: Alchemist Options Discussed: needs brain MRI, medical and radiation oncology referrals Recommendations: as above She is seeing me on 10/21/2019. My office will make the appropriate arrangements and referrals. Juan Ny MD 10/19/2019 documented in this encounter Plan of Treatment Not on file documented as of this encounter Visit Diagnoses Not on filedocumented in this encounter Care Teams Data Warehouse Consultant Relationship Specialty Start Date End Date Kathy Wright, LAN SPECIALIST PCP - General Family Medicine 04/22/19 documented as of this encounter
--- OUTSIDE RECORDS SUMMARY | 2024-06-24 01:11 | XMS_ITS | Encounter Summary ---
[place] [address] Care Team Providers Care Space And Missile Operations Spacelift Name Role Phone Kathy Wright MARÍA Primary Care Provider [phone] Encounter Details Date Type Department Care Team (Late st Contact Info) Description 10/22/2019 Notes [place] [address] Anna Owen, RN Social History Tobacco Use [...] as of this encounter Progress Notes * Anna Owen, RN - 10/22/2019 7:50 AM EST Documentation of Informed Consent to Participate in Clinical Trial [id number]: Creating a National Resource for Opioid Prescribing Across Surgical Specialties AYLIN ALFONSO was contacted post-operatively on (date) 10/21/19 AYLIN ALFONSO was offered the opportunity to participate in study [id number]: Creating a National Resource for Opioid Prescribing Across Surgical Specialties .The study protocol was reviewed with the patient, including a description of the study purpose, potential risks and benefits, the voluntary nature of participation, as well as the requirements of participation. Discussed confidentiality of patient's private health information as specified in the consent script. Patient informed that HE/SHE may discontinue study involvement at any time; informed HIM/HER thatdeclining to participate or discontinuing study treatment will not compromise his access to treatment options or care at this institution. AYLIN ALFONSO was given adequate time to ask questions and review concerns, all of which were answered to HIS/HER satisfaction. Patient verbalized understanding of this protocol and verbally consented to participate in [id number]: Creating a National Resource for Opioid Prescribing Across Surgical Specialties. documented in this encounter Plan of Treatment Not on file documented as of this encounter Visit Diagnoses Not on filedocumented in this encounter Care Teams Space And Missile Operations Spacelift Relationship Specialty Start Date End Date Kathy Wright APRN PCP - General Family Medicine 04/22/19 documented as of this encounter
--- OUTSIDE RECORDS SUMMARY | 2024-06-24 01:11 | XMS_ITS | Encounter Summary ---
Author Organization [facility] [place] [address] Care Team Providers Care Field Director Name Role Phone GerardoKathy nicolas Butch DANIEL Primary Care Provider [phone] Reason for Visit * Reason Onset Date Comments Other 10/19/2019 post op Encounter Details Date Type Department Care Team (Late st Contact Info) Description 10/19/2019 Telephone [place] [id number] Anna Owen, RN Other (post op ) Social History Tobacco Use Types Packs/Day Years [...] Miscellaneous Notes * Telephone Encounter - Anna Owen, RN - 10/19/2019 10:50 AM EST TC to Mrs. Arreola Hx: s/p R VATS with RLL basilar segmentectomy on 10/06/19 Mrs. Arreola was able to have a BM last after speaking to this TS nurse. I did not even have to take any of the medications to have a BM. Mrs. Arreola is also still stating that she has a dry, non productive cough. Reviewed that this is common after surgery. She is staying well hydrated and using her inhaler with relief. She is also stating that she does have a tight pulling sensation around her right side. Discussed what she is taking for pain/discomfort. She is only taking tylenol as she was told in the past not totake ibuprofen, as it caused colitis in the past and is afraid to take it. She is aware of the appointments for this . She knows to call with any questions or concerns. documented in this encounter Plan of Treatment Not on file documented as of this encounter Visit Diagnoses Not on filedocumented in this encounter Care Teams Field Director Relationship Specialty Start Date End Date Kathy Wright APRN PCP - General Family Medicine 04/22/19 documented as of this encounter
--- OUTSIDE RECORDS SUMMARY | 2024-06-24 01:11 | XMS_ITS | Encounter Summary ---
Author [facility] [place] [address] Care Team Providers Care Recreation Leader Name Role Phone Kathy Wright MARÍA Primary Care Provider [phone] Reason for Visit * Reason Onset Date Comments Other 10/13/2019 post op call Encounter Details Date Type Department Care Team (Late st Contact Info) Description 10/13/2019 Telephone [place] [phone] Anna Owen, RN Other (post op call) [...] Telephone Encounter - Anna Owen RN - 10/13/2019 1:12 PM EST Thoracic Surgery Nursing Post-operative Follow up: Hx: s/p R VATS with RLL basilar segementectomy POD#: General statement: Pain: tylenol 1000 mg once day - Oxycodone 5 mg once a day GI: appetite: I have not really been hungry, I force myself to eat. Hydration: a lot of water Voiding: without difficulty BM: LBM on 10/07/19, I have always had trouble with my bowels. The last one was soft and hurt a little bit. Explained that she needs to start taking colace (this has worked great in the past). She is aware and in agreement with this plan. She will call tomorrow to state whether she has had a BM ornot. Respiratory: using IS as directed every time - 6 to 7 times 1500 - 2000 - goal to reach 2500 by theend of the week - encouraged to increase use , she is in agreement with this plan. SOB: when walked to mailbox, had to stop 1/[address], goal to get to Mailbox by Friday without difficulty Coughing with or without sputum - c/o dry nagging cough, explained that this is very common after surgery - she needs to increase her IS use and start getting up and walking more. She is in agreementwith this plan. Activity: Up and about - encouraged to get up and walk 3 times a day - 10 minutes each time for a total of 30 minutes a day. Once she tolerates this to increase to 15 minutes each time, then for 20 minutes etc... She was in agreement with this plan Integumentary: Incisions are without any redness, swelling or drainage Plan: RTC on 10/21/[address] Ny Mrs. Arreola is aware of appointments and knows to call with any questions or concerns. documented in this encounter Plan of Treatment Not on file documented as of this encounter Visit Diagnoses Not on filedocumented in this encounter Care Teams Recreation Leader Relationship Specialty Start Date End Date Kathy Wright APRN PCP - General Family Medicine 04/22/19 documented as of this encounter
--- OUTSIDE RECORDS SUMMARY | 2024-06-24 01:11 | XMS_ITS | Encounter Summary ---
[facility] [place] [address] Care Team Providers Care Solar Energy Sales Specialist Name Role Phone Kathy Wright MARÍA Primary Care Provider Reason for Visit * Reason Onset Date Comments Other 09/24/2019 Encounter Details Date Type Department Care Team (Late st Contact Info) Description 09/24/2019 Telephone [place] [address] Anna Owen, RN Other Social History Tobacco Use Types Packs/Day Years [...] Telephone Encounter - Anna Owen RN - 09/24/2019 5:18 PM EDT TC to Ms. Arreola Unable to reach Ms. Arreola - left a message regarding her echocardiogram and that her surgery is allset for October. Requested a call back documented in this encounter Plan of Treatment Not on file documented as of this encounter Visit Diagnoses Not on filedocumented in this encounter Care Teams Solar Energy Sales Specialist Relationship Specialty Start Date End Date Kathy Wright APRN PCP - General Family Medicine 04/22/19 documented as of this encounter
--- OUTSIDE RECORDS SUMMARY | 2024-06-24 01:11 | XMS_ITS | Encounter Summary ---
[place] [address] Care Team Providers Care Fish Inspector Name Role Phone Kathy Wirght APRN Primary Care Provider [phone] Encounter Details Date Type Department Care Team (Late st Contact Info) Description 10/06/2019 Notes [place] [address] Anna Owen, RN Social History Tobacco Use [...] Progress Notes * Anna Owen, RN - 10/06/2019 11:18 AM EST Peer to Peer review for CT scan 09/16/19 - peer to peer completed on 10/05/19 Approved - Approval Number is [id number] effective immediately documented in this encounter Plan of Treatment Not on file documented as of this encounter Visit Diagnoses Not on filedocumented in this encounter Care Teams Fish Inspector Relationship Specialty Start Date End Date Kathy Wright APRN PCP - General Family Medicine 04/22/19 documented as of this encounter
--- OUTSIDE RECORDS SUMMARY | 2024-06-24 01:11 | XMS_ITS | Encounter Summary ---
[place] [address] Care Team Providers Care Rail Car Mechanic Name Role Phone Kathy Wright MARÍA Primary Care Provider [phone] Encounter Details Date Type Department Care Team (Late st Contact Info) Description 09/16/2019 Notes Only [place] [address] Love Verdin Social History Tobacco Use Types Packs/Day Years [...] as of this encounter Progress Notes * Love Verdin - 09/16/2019 1:59 PM EDT Consent for the [facility] Biobank protocol [id number] titled Total Cancer Care Protocol: Lifetime partnership with patients who have or may be at risk of having cancer. Marleni Maxwell was seen in the Thoracic Surgery clinic on 09/16/2019. I reviewed with her the rationale for the biobanking protocol study and how there is no physical risk to being in the study as only left over tumor tissue will be used for biobanking. We discussed how there will be no benefit to her per se for participating but that his/her participation and thatof other patients involved will hopefully allow future cancer discoveries to be advanced. The study will entail molecular and genetic analysis of the left over tumor tissue in addition to demographic, oncologic and clinical data collection. We discussed how by participating in the study that he/she consents to allowing to be contacted by phone in the future to answer health related questions. The details of the study, length of the study and risks were reviewed by me with the patient.The patient was given adequate time to ask questions, and all questions were answered to her satisfaction. Upon review, the patient verbalized an adequate understanding of the protocol and signed the consent document. No study procedures were initiated prior to signing consent. The consent will be scannedinto the [facility] medical record. A copy of the signed consent was provided to the patient. The originalis given to the [facility] [employer] to file with the study documentation. 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 The study entails an additional blood draw for analysis of peripheral blood lymphocytes. The details of the study, length of the study and risks were reviewed by me with the patient. The patient was given adequate time to ask questions, and all questions were answered to her satisfaction. Upon review, the patient verbalized an adequate understanding of the protocol and signed the consent document. No study procedures were initiated prior to signing consent. The consent will be scannedinto the [facility] medical record. A copy of the signed consent was provided to the patient. The originalis given to the [facility] to file with the study documentation. documented in this encounter Plan of Treatment Not on file documented as of this encounter Visit Diagnoses Not on filedocumented in this encounter Care Teams Rail Car Mechanic Relationship Specialty Start Date End Date Kathy Wright APRN PCP - General Family Medicine 04/22/19 documented as of this encounter
--- OUTSIDE RECORDS SUMMARY | 2024-06-24 01:11 | XMS_ITS | Encounter Summary ---
Author Organization [facility] Address [facility] [place] [address] Care Team Providers Care Learning Center Instructor Name Role Phone GerardoKathy nicolas Butch DANIEL Primary Care Provider [phone] Encounter Details Date Type Department Care Team (Latest Contact Info) Description 09/16/2019 6:56 AM EDT - 09/16/2019 7:29 AM EDT Hospital Encounter Hematology [place] [address] Nodule of lower lobe of right lung; Hypertension, unspecified type Discharge Disposition: Home Social History Tobacco Use [...] Priority Date/Time Associated Diagnosis Comments HC VENIPUNCTURE STAT 09/16/2019 7:20 AM EDT Nodule of lower lobe of right lung Hypertension, unspecified type documented in this encounter Results * Creatinine (09/16/2019 7:20 AM EDT) Creatinine 0.93 0.70 - 1.20 mg/dL [facility] Estimated GFR 67 >=60 mL/min/1.7 3 m?? [facility] Comment: The eGFR was calculated using the CKD-EPI equation. As with all creatinine based estimates of kidney function, eGFR values calculated with the CKD-EPI equation are not accurate in patients with acute kidney failure, extremes of body mass or the acutely ill. http://PlayEnable/[facility] [place] eGFR 78 >=60 mL/min/1.7 3 m?? [facility] Comment: The eGFR was calculated using the CKD-EPI equation. As with all creatinine based estimates of kidney function, eGFR values calculated with the CKD-EPI equation are not accurate in patients with acute kidney failure, extremes of body mass or the acutely ill. http://PlayEnable/[facility] [place] Blood specimen (specimen) 09/16/2019 7:20 AM EDT 09/16/2019 8:20 AM EDT Narrative Resulting Agency Comment Spec In Lab Juan Ny MD CHEMISTRY ORDERABLE S [facility] [place] [address] documented in this encounter Visit Diagnoses Diagnosis Nodule of lower lobe of right lung Hypertension, unspecified type documented in this encounter Care Teams Learning Center Instructor Relationship Specialty Start Date End Date Kathy Wright APRN PCP - General Family Medicine 04/22/19 documented as of this encounter
--- OUTSIDE RECORDS SUMMARY | 2024-06-24 01:11 | XMS_ITS | Encounter Summary ---
[place] [address] Care Team Providers Care Instrument Technician Helper Name Role Phone Kathy Wright APRN Primary Care Provider [phone] Encounter Details Date Type Department Care Team (Late st Contact Info) Description 09/17/2019 Telephone [place] [address] Bebe Reddy Social History Tobacco Use Types Packs/Day Years [...] encounter Miscellaneous Notes * Telephone Encounter - Bebe Reddy LNA - 09/17/2019 1:58 PM EDT Call made message left letting pt know her [place] [facility] [place] @ 2PM documented in this encounter Plan of Treatment Not on file documented as of this encounter Visit Diagnoses Not on filedocumented in this encounter Care Teams Instrument Technician Helper Relationship Specialty Start Date End Date Kathy Wright APRN PCP - General Family Medicine 04/22/19 documented as of this encounter
--- OUTSIDE RECORDS SUMMARY | 2024-06-24 01:11 | XMS_ITS | Encounter Summary ---
Author Organization [facility] Address [facility] [place] [address] Care Team Providers Care Banking Analyst Name Role Phone Kathy Wright FIELD APPLICATION ENGINEER Primary Care Provider [phone] Encounter Details Date Type Department Care Team (Latest Contact Info) Description 10/21/2019 10:27 AM EST - 10/21/2019 11:59 PM [facility] Hospital Encounter XRay at [address] [place] [address] Juan Ny MD [facility] [place] [address] Lung nodule Discharge Disposition: Home Social History Tobacco Use [...] Comments XR CHEST PA AND LATERAL Routine 10/21/2019 10:41 AM EST Lung nodule documented in this encounter Results * XR Chest PA & Lateral (Generic) (10/21/2019 10:41 AM EST) Anatomical Region Laterality Modality Chest N/A Digital Radiogra phy Impressions 10/21/2019 10:55 AM EST Resolved body wall air. Trace right effusion. Thank you for letting us participate in the care of this patient. For questions regarding this report, please contact the number below. ? Electronically signed by: Savanna Callejas [facility] ([phone]), at 10/21/2019 10:55 AM Narrative 10/21/2019 10:55 AM EST EXAMINATION: XR CHEST PA AND LATERAL (GENERIC) CLINICAL HISTORY: s/p basilar RLL segmenectomy TECHNIQUE: PA and lateral views of the chest. COMPARISON: 10/07/2019. FINDINGS right-sided body wall air resolved. Right lung volume loss, consistent with prior resection. Trace right base effusion. No effusion on the left. No new pulmonary opacity is seen on the right. Left lung remains clear. Unchanged cardiac silhouette and vascular markings. No interval osseous findings are seen. Procedure Note Savanna Callejas MD - 10/21/2019 EXAMINATION: XR CHEST PA AND LATERAL (GENERIC) CLINICAL HISTORY: s/p basilar RLL segmenectomy TECHNIQUE: PA and lateral views of the chest. COMPARISON: 10/07/2019. FINDINGS right-sided body wall air resolved. Right lung volume loss,consistent with prior resection. Trace right base effusion. No effusion on the left.No new pulmonary opacity is seen on the right. Left lung remains clear.Unchanged cardiac silhouette and vascular markings. No interval osseous findings areseen. IMPRESSION Resolved body wall air. Trace right effusion. Thank you for letting us participate in the care of this patient. Forquestions regarding this report, please contact the number below. Electronically signed by: Savanna Callejas [facility]([phone]), at 10/21/2019 10:55 AM Juan Ny MD IMG DX ORDERABLES documented in this encounter Visit Diagnoses Diagnosis Lung nodule Solitary pulmonary nodule documented in this encounter Care Teams Banking Analyst Relationship Specialty Start Date End Date Kathy Wright APRN PCP - General Family Medicine 04/22/19 documented as of this encounter
--- OUTSIDE RECORDS SUMMARY | 2024-06-24 01:11 | XMS_ITS | Encounter Summary ---
Author Organization [facility] Address [facility] [place] [address] Care Team Providers Care Wool Scourer Name Role Phone Kathy Wright MARÍA Primary Care Provider [phone] Reason for Visit * Reason Onset Date Comments Other 10/04/2019 SOB Encounter Details Date Type Department Care Team (Late st Contact Info) Description 10/04/2019 Telephone Thoracic Surgery at [facility] [place] [address] Anna Owen, RN Other (SOB) Social History Tobacco Use Types Packs/Day Years [...] Telephone Encounter - Anna Owen, RN - 10/04/2019 10:56 AM EST TC from Ms. Arreola When I stand and wash the dishes, with any exertion I am having SOB. With further investigation of the SOB, this is not new to Ms. Arreola. I have been having some SOB for the past year or so. It only happens once a day and sometimes does not even happen. I have been using the IS at least 40 times per day and getting to [phone]. She stated On Friday, I had a rough day, my daughter showed up to my house and I had to do some tough love, because she is a heroin addict and I had to send her away. Maybe this is anxiety. She was able to hold a conversation without any difficulty breathing or SOB noted. I am nervous about my surgery on Friday. Confirmed with Ms. Arreola that she indeed has had SOB for a while and that she should increase her use of IS to at least 60 times a day. She agrees with this plan and will call if the SOB gets worse. Ms. Arreola is aware that the OR nurses will call tomorrow to confirm her arrival time, what medications to take and when to stop eating and drinking. She knows to call with any questions or concerns. documented in this encounter Plan of Treatment Not on file documented as of this encounter Visit Diagnoses Not on filedocumented in this encounter Care Teams Wool Scourer Relationship Specialty Start Date End Date Kathy Wright APRN PCP - General Family Medicine 04/22/19 documented as of this encounter
--- OUTSIDE RECORDS SUMMARY | 2024-06-24 01:11 | XMS_ITS | Encounter Summary ---
Author Organization [facility] Address [facility] [place] [address] Care Team Providers Care Urologist Name Role Phone Kathy Wright HEADER BOSS Primary Care Provider [phone] Reason for Visit * Auth/Cert Specialty Diagnoses [...] Expiration Date Visits Re quested Visits Authorized [id number] 1 1 Encounter Details Date Type Department Care Team (Latest Contact Info) Description 10/06/2019 10:30 AM EST - 10/08/2019 2:40 PM [facility] Hospital Encounter [address] [place] [address] Juan Tran MD [facility] [place] [address] Lung nodule Discharge Disposition: Home Social History [...] Sign Reading Time Taken Comments Blood Pressure 104/80 10/08/2019 1:16 PM EST Pulse 94 10/08/2019 9:51 AM EST Temperature 36.5 ??C (97.7 ??F) 10/08/2019 1:16 PM ES T Respiratory Rate 14 10/08/2019 1:16 PM EST Oxygen Saturation 95% 10/08/2019 1:16 PM EST Inhaled Oxygen Concentration - - Weight 68 kg (150 lb) 10/06/2019 11:53 AM EST Height 154.9 cm (5' 1) 10/06/2019 11:39 AM EST Body Mass Index 28.34 10/06/2019 11:39 AM EST documented in this encounter Discharge Summaries * Pau Guerrero PA - 10/08/2019 12:03 PM EST Images from the original note were not included. Department of Thoracic Surgery - Discharge Summary Patient Name: Marleni Arreola Patient Age: 59 y.o. Birthdate: 1960 Admit date: 10/06/2019 Discharge date: 10/08/2019 Attending Physician: Juan Tran MD Discharge Diagnoses (Hospital Problems) and Secondary Diagnoses (Chronic Problems): Active Hospital Problems Diagnosis ??? Lung nodule Resolved Hospital Problems No resolved problems to display. Active Non-Hospital Problems Diagnosis ??? Dizziness ??? Closed compression fracture of body of L1 vertebra Operations/Major Procedures: Operations: Case Date: 10/06/2019 Surgeon: Surgeon(s) and Role: * Juan Tran MD - Primary * Pau Guerrero PA - Physician Voltmeter Operator * Tan Quigley MD - Resident Procedure: Procedure(s) with comments: @ROBOT XI THORACOSCOPY,SURG; W/DX WEDGE RESC W/ANATOMIC LUNG RESC (WRVU 3) - Bronchoscopy, robotic wedge, possible lobectomy/segmentectomy BRONCHOSCOPY, DIAGNOSTIC (WRVU 2.78) MODIFIER ROBOT,DAVINCI XI NERVE BLOCK, INTERCOSTAL NERVE, MULTIPLE (WRVU 1.68) @ROBOT XI THORACOSCOPY,SURG; W/MEDIASTINAL& REGIONAL LYMPHADENECTOMY (WRVU 4.12) @ROBOT XI THORACOSCOPY,SURGICAL,W\LOBECTOMY,TOTAL OR SEGMENTAL (WRVU 24.64) Other Major Procedures: None History of Presentation: Today,??09/16/2019,??I??saw??Ms.??Arreola??in the Thoracic Surgery Clinic at [facility]??in consultation for a Right??lower lobe??lung nodule at your request.?Her??history was obtained from the patient. ??I have also reviewed her??medical records and imaging prior to today's visit. ??As you know, ??[facility]is a 59 y.o.??female that in??May??2019 fell backward while opening a drawer, and she was alsohaving issues with abdominal pain around that time. A CT Abd/Pelvis??was performed 04/18/19??which revealed??colitis, acute burst fracture of L1, as well as 16 mm focal opacity of RLL. A dedicated CT Chest was performed??07/02/18??which demonstrated stable gfgn-cv-[id number] nodules in the RLL, largest measuring 9 x 10 mm. PET was then performed??08/04/19??which revealed the 13 mm RLL nodule to be FDG avid,with no other suspected sites of involvement.??She was referred to thoracic surgery for further diagnostic work up and management. ?? She is a former smoker of about 1 ppd x42 years, but states that she quit in July 2019. She rarely drinks alcohol, and occasionally consumes marijuana edibles. She admits prior dizzy spells severalmonths ago which have subsided (reports she had this worked up by her PCP and neurology in [facility]), reflux symptoms and occasional nausea.??She??denies fevers, night sweats, or chest pain on exertion. ??She??has lost no weight recently.?She??is able to walk on the flat with the assistanceof a cane, and up a flight??of stairs??however this takes a while.??Her??ECOG performance status??is 1 - Symptomatic but completely ambulatory.?? Hospital Course: Marleni Arreola was admitted to [facility] on 10/06/2019 via the Same Day Program. She was brought to the operating room on 10/06/[address] Juan Tran performed surgery as described above. She tolerated the procedure well and was brought to the Post Anesthesia Care Unit for recovery. After a brief period of time she was transferred to the floor for continued rehabilitation. The right chest tube was discontinued on post operative day # 1. A chest Xray after this demonstrated a trace right apical pneumothorax as well as subcutaneous emphyshemaof the right chest. A subsequent chest XRAY was obtained 2 hours later no appreciable pneumothorax and decreased subcutaneous air. Patient with reported history of bladder sling complicated by intermittent urinary retention which requires home straight catheterizations. Walden was removed POD1 and patient required straight cath for urinary retention. By postoperative day # 2 she had met all criteria for discharge to home and was instructed to continue home straight catheterizations as needed every 12 hours if she is not urinating. Pain was controlled on oral medications. She had walked 5 minutes. She was tolerating a regular diet and had had a bowel movement. Vital signs: Vital Signs Temp: 36.4 ??C (97.5 ??F) Temp src: Oral Heart Rate from SpO2: 90 bpm Heart Rate: 94 Heart Rate Source: Monitor Resp: 14 BP: 129/70 MAP (NBP): 94 mmHg BP Method: Automatic Patient Position: Lying SpO2: 99 % O2 Flow Rate (L/min): 2 L/min O2 Device: None (Room air) Admission Wt: 68.04 kg Last Wt: Wt Readings from Last 3 Encounters: 10/06/19 68 kg (150 lb) 09/16/19 68.2 kg (150 lb 4.8 oz) 07/02/19 65.3 kg (144 lb) Pertinent physical exam findings prior to discharge: General: NAD, A&Ox3, resting in bed, cooperative HEENT: normocephalic, anicteric sclerae CVS: RRR, no m/r/g Pulm: Right lung with ronchi appreciated throughout, left lung CTA, no wheezes, right chest incisions are c/d/i Abd: soft, non-tender/appropriately tender, non-distended. No guarding. Skin: warm, dry Ext: well perfused, no edema Neuro: Grossly intact, nonfocal, moving all four extremities spontaneously. Important Lab Data: Lab Results Component Value Date WBC 12.2 (H) 10/07/2019 HGB 10.5 (L) 10/07/2019 HCT 31.3 (L) 10/07/2019 MCV 90.2 10/07/2019 Lab Results Component Value Date NA 130 (L) 10/07/2019 K 4.0 10/07/2019 CL 94 (L) 10/07/2019 CO2 21 (L) 10/07/2019 Lab Results Component Value Date CREATININE 1.08 10/07/2019 Lab Results Component Value Date BUN 18 10/07/2019 No results found for: PREALBUMIN No results for input(s): PT, PTT, INR in the last 168 hours. Studies: CXR 10/07/19 (2 hrs later): 1. There is no appreciable pneumothorax. 2. The amount of subcutaneous emphysema in the right chest wall slightly diminished from the prior exam. CXR 10/07/19 (post pull): Trace right apical pneumothorax. Extensive subcutaneous emphysema in the right chest wall. CXR 10/07/19: 1. ??Increased right lower lateral chest wall air. 2. ??Apically oriented right chest tube in unchanged position. No right pneumothorax. Pending Studies and Lab Data: No current labs Discharge Conditions/Prognosis: Stable Discharge to: Home Discharge Medications: Your Medications New Medications Dose Details acetaminophen 500 mg Tab Commonly known as: TYLENOL Take 2 tablets by mouth every 6 hours. 1,000 mg Quantity: 120 tablet Refills: 1 docusate sodium 100 mg Cap Commonly known as: COLACE Take 1 capsule by mouth 3 times daily. 100 mg Quantity: 90 capsule Refills: 1 senna 8.6 mg Tab Commonly known as: SENOKOT Take 2 tablets by mouth every evening. 2 tablet Quantity: 60 tablet Refills: 1 Continued medications with new dosing Dose Details oxyCODONE 5 mg Tab Commonly known as: ROXICODONE Take 1 tablet by mouth every 4 hours as needed for Pain. What changed: ?? how to take this ?? when to take this ?? reasons to take this 5 mg Quantity: 15 tablet Refills: 0 Continued medications, unchanged Dose Details albuterol 90 mcg/actuation Hfaa Inhale 2 puffs into the lungs every 4 hours as needed for Wheezing. Use with spacer 2 puff Refills: 0 amitriptyline 100 mg Tab Commonly known as: ELAVIL 1 tablet nightly. 1 tablet Refills: 1 buPROPion 100 mg Tab Commonly known as: WELLBUTRIN 1 tablet daily. 1 tablet Refills: 0 cholecalciferol (Vitamin D3) 1,000 unit Tab 1,000 Units daily. 1,000 Units Refills: 0 clonazePAM 0.5 mg Tab Commonly known as: KlonoPIN 1 tablet as needed. 1 tablet Refills: 3 cloNIDine 0.1 mg Tab Commonly known as: CATAPRES 1 tablet daily. 1 tablet Refills: 3 cyanocobalamin (vitamin B-12) 1,000 mcg Tab Take 1,000 mcg by mouth daily. 1,000 mcg Refills: 0 enalapril-hydrochlorothiazide 10-25 mg Tab Commonly known as: VASERETIC 1 tablet daily. 1 tablet Refills: 5 FLOVENT HFA 110 mcg/actuation Hfaa 2 puffs 2 times daily as needed. Generic drug: fluticasone propionate 2 puff Refills: 5 levothyroxine 100 mcg Tab Commonly known as: SYNTHROID 1 tablet daily. 1 tablet Refills: 3 loratadine 10 mg Tab Commonly known as: CLARITIN 1 tablet daily. 1 tablet Refills: 0 metoprolol tartrate 50 mg Tab Commonly known as: LOPRESSOR 1 tablet 2 times daily. 1 tablet Refills: 4 naproxen 375 mg Tab Commonly known as: NAPROSYN 1 tablet 2 times daily as needed. 1 tablet Refills: 0 PriLOSEC 40 mg Cpdr Generic drug: omeprazole Refills: 0 Ranitidine HCl 300 mg Cap Commonly known as: ZANTAC 1 capsule nightly. 1 capsule Refills: 5 Updated Allergies/ADRs: Allergies Allergen Reactions ??? Cis Free Text Allergy COMBID. ??? Isopropamide ??? Prochlorperazine Instructions Given to Patient at Discharge: Patient Instructions Call if you have a fever of greater than 101 degrees, shaking chills, develop redness or drainage from your incision site(s), or if you have questions. During normal business hours, Friday- Friday 8:00 a.m.-5:00 p.m., please call to speak to a nurse in the Thoracic Clinic at [phone]. After hours or on weekends or holidays please call: [phone] and ask to speak to the Thoracic Surgeon on c all. Exercise & Activity Level: As you recover from surgery exercise at least 30 minutes a day. Thiscan be broken up into several times a day to achieve this goal at first, but you will be able to work up to doing all 30 minutes at once. Walking, treadmill, stationary bike, elliptical machine or there stationary exercise equipment is appropriate. Take your incentive spirometer home with you. You should use this every hour while awake, 10 times each. This helps you to exercise your respiratory muscles and to breathe deeply. Taking purposeful deep breaths can be just as effective. Do not lift more than 10 pounds for 2 weeks (nothing heavier than a gallon of milk). Don???t exhaust yourself. Rest between activities as you recover from your procedure. Diet: You should follow a regular diet. Driving: No driving for 1 week or while taking narcotic pain medication. Shower/Bath: You may shower daily starting 2 days after chest tube removal, no bathing or swimming until your follow-up appointment. Incision care: Wash your incision(s) daily with soap and rinse well, pat dry. Assess for any signs of infection such as increased redness, pain, warmth or drainage. If you had a chest tube, you may remove the dressing over the chest tube site in 2 days after the chest tube was removed and leave it open to the air if it is not draining. Otherwise change the dressing twice a day and as needed. The dressing may remain off once there is no drainage. If you have steri-strips over an incision site, these will remain in place for 7-10 days. You may shower with them, and they will fall off naturally in 7-10 days. If they do not fall off by 10 days, you may remove them. Pain: Pain after surgery is normal. The goal is for you to be able to tolerate pain so you can complete your daily activities. You may notice a burning or numbness on the side of your incision that may include your breast area. This should improve over time but there may be areas that remain numb. You may use a heating pad set on low or medium, over your incision to help relax the muscles in the area and decrease discomfort. Please take your medication as prescribed. If you are not having good pain control, please call and speak to the nurse in the Thoracic Clinic or the Thoracic Surgeon retail loss prevention investigator after hours. Please take over the counter Tylenol and Ibuprofen in an alternating fashion, as instructed, for baseline pain coverage. Take the Oxycodone, as prescribed, for pain not controlled by the Tylenol and Ibuprofen. We are unable to refill narcotics after 5 pm or on weekends or holidays. If you need more pain medication please call us before you run out of pills. Please allow 3 days for us to mail a refill for pain medication to you. Narcotic medication is intended for your use only. Do not share with others. If you are given a prescription for narcotics please keep these in a safe place and dispose of properly when you no longerneed these pills. Opioid PDMP 09/16/2019 [place] PDMP Query Date 10/08/2019 [place] PDMP Query Date 10/08/2019 [place] PDMP Query Date 10/08/2019 Marleni Arreola is being prescribed a prescription opioid for the treatment of acute post-operativepain related to surgery. Marleni Arreola has been advised to take the smallest dose possible to control their pain and as their pain improves to take smaller doses and increase the time between doses. In addition to this medication, non-opioid medications have been prescribed for adjunct treatment of their pain. Non-pharmacological treatment such as ice, elevation and activity modification have been recommended as appropriate. The Acute Opioid Therapy Informed Consent form has been completed and sent to medical records for scanning to chart. Please take your medication exactly as prescribed. Read all instructions that come with your medication. ?? Using narcotic pain medication (such as oxycodone, hydromorphone (Dilaudid), morphine, fentanyl,or tramadol) may cause addiction. While addiction is more common in people with a personal or family history of addiction, it can occur in anyone. ?? Taking more than the prescribed amount of medication or using with alcohol or other drugs can cause you to stop breathing resulting in coma, brain damage, or . ?? Opioids (oxycodone, hydromorphone/Dilaudid, morphine, fentanyl, tramadol) can slow reaction time, cause drowsiness, or cloud judgement. It is unsafe for you to drive or operate heavy machinery while taking this medication. ?? Opioids (oxycodone, hydromorphone/Dilaudid, morphine, fentanyl, tramadol) are at risk of being diverted by anyone with access to your home. Opioids should be stored in a safe and secure place, such as a locked cabinet or safe. ?? Unused opioids (oxycodone, hydromorphone/Dilaudid, morphine, fentanyl, tramadol) should be disposed of according to the label or patient information. If there are no specific instructions, medications may be returned to a take- back location or mixed with a small amount of water and an undesirable waste substance such as coffee grounds or cat litter. Sleep: Try to establish normal sleep patterns. Long naps during the day may make it hard for you tosleep at night. Use the pain medication at bedtime for the first week at home if needed. Bowel Movements: After surgery, your bowel movements may not be regular for you, but you should be able to get back to your daily routine quickly. Please make sure to take the stool softeners or mildlaxatives as prescribed to get back to your normal routine. If you do not have a bowel movement formore than 2 days, please call the office. Follow up appointments: You will see Dr. Tran in approximately 2 weeks with a chest Xray withinone hour of the appointment. Our office staff will call you on this Friday or Friday to check up on you and discuss appointment information. A letter will be mailed to you confirming your appointment information. You should arrange to see your primary care physician, in two weeks. No future appointments. General Instructions None Future Appointments and Orders Future Orders Complete By Expires XR Chest PA & Lateral (Generic) [[id number] Custom] 10/22/2019 (Approximate) 04/22/2020 Process Instructions: Scheduling Instructions: Questions: Where will study be performed?: [facility] Radiology Portable exam?: Reason for exam and clinical history: s/p basilar RLL segmenectomy Other pertinent information: Stat read required?: Date of injury if applicable: Requested Time: Provider Contact Information: Primary Care Provider: Kathy Wright, HEADER BOSS [phone] Discharge References/Attachments: Discharge References/Attachments None For questions regarding this document or issues relating to this hospitalization on the Thoracic Surgery Service, please contact Dr. Tran's office at . Signed: JOSE Salvador 10/08/2019 CC: PCP: Kathy Wright APRN Referring: No referring provider defined for this encounter. documented in this encounter Discharge Instructions * Patient Instructions* Pau Guerrero PA - 10/08/2019 11:56 AM EST Images from the original note were not included. Call if you have a fever of greater than 101 degrees, shaking chills, develop redness or drainage from your incision site(s), or if you have questions. During normal business hours, Friday- Friday 8:00 a.m.-5:00 p.m., please call to speak to a nurse in the Thoracic Clinic at [phone]. After hours or on weekends or holidays please call: [phone] and ask to speak to the Thoracic Surgeon on c all. Exercise & Activity Level: As you recover from surgery exercise at least 30 minutes a day. Thiscan be broken up into several times a day to achieve this goal at first, but you will be able to work up to doing all 30 minutes at once. Walking, treadmill, stationary bike, elliptical machine or there stationary exercise equipment is appropriate. Take your incentive spirometer home with you. You should use this every hour while awake, 10 times each. This helps you to exercise your respiratory muscles and to breathe deeply. Taking purposeful deep breaths can be just as effective. Do not lift more than 10 pounds for 2 weeks (nothing heavier than a gallon of milk). Don???t exhaust yourself. Rest between activities as you recover from your procedure. Diet: You should follow a regular diet. Driving: No driving for 1 week or while taking narcotic pain medication. Shower/Bath: You may shower daily starting 2 days after chest tube removal, no bathing or swimming until your follow-up appointment. Incision care: Wash your incision(s) daily with soap and rinse well, pat dry. Assess for any signs of infection such as increased redness, pain, warmth or drainage. If you had a chest tube, you may remove the dressing over the chest tube site in 2 days after the chest tube was removed and leave it open to the air if it is not draining. Otherwise change the dressing twice a day and as needed. The dressing may remain off once there is no drainage. If you have steri-strips over an incision site, these will remain in place for 7-10 days. You may shower with them, and they will fall off naturally in 7-10 days. If they do not fall off by 10 days, you may remove them. Pain: Pain after surgery is normal. The goal is for you to be able to tolerate pain so you can complete your daily activities. You may notice a burning or numbness on the side of your incision that may include your breast area. This should improve over time but there may be areas that remain numb. You may use a heating pad set on low or medium, over your incision to help relax the muscles in the area and decrease discomfort. Please take your medication as prescribed. If you are not having good pain control, please call and speak to the nurse in the Thoracic Clinic or the Thoracic Surgeon retail loss prevention investigator after hours. Please take over the counter Tylenol and Ibuprofen in an alternating fashion, as instructed, for baseline pain coverage. Take the Oxycodone, as prescribed, for pain not controlled by the Tylenol and Ibuprofen. We are unable to refill narcotics after 5 pm or on weekends or holidays. If you need more pain medication please call us before you run out of pills. Please allow 3 days for us to mail a refill for pain medication to you. Narcotic medication is intended for your use only. Do not share with others. If you are given a prescription for narcotics please keep these in a safe place and dispose of properly when you no longerneed these pills. Opioid PDMP 09/16/2019 [place] PDMP Query Date 10/08/2019 [place] PDMP Query Date 10/08/2019 [place] PDMP Query Date 10/08/2019 Marleni Arreola is being prescribed a prescription opioid for the treatment of acute post-operativepain related to surgery. Marleni Arreola has been advised to take the smallest dose possible to control their pain and as their pain improves to take smaller doses and increase the time between doses. In addition to this medication, non-opioid medications have been prescribed for adjunct treatment of their pain. Non-pharmacological treatment such as ice, elevation and activity modification have been recommended as appropriate. The Acute Opioid Therapy Informed Consent form has been completed and sent to medical records for scanning to chart. Please take your medication exactly as prescribed. Read all instructions that come with your medication. ?? Using narcotic pain medication (such as oxycodone, hydromorphone (Dilaudid), morphine, fentanyl,or tramadol) may cause addiction. While addiction is more common in people with a personal or family history of addiction, it can occur in anyone. ?? Taking more than the prescribed amount of medication or using with alcohol or other drugs can cause you to stop breathing resulting in coma, brain damage, or . ?? Opioids (oxycodone, hydromorphone/Dilaudid, morphine, fentanyl, tramadol) can slow reaction time, cause drowsiness, or cloud judgement. It is unsafe for you to drive or operate heavy machinery while taking this medication. ?? Opioids (oxycodone, hydromorphone/Dilaudid, morphine, fentanyl, tramadol) are at risk of being diverted by anyone with access to your home. Opioids should be stored in a safe and secure place, such as a locked cabinet or safe. ?? Unused opioids (oxycodone, hydromorphone/Dilaudid, morphine, fentanyl, tramadol) should be disposed of according to the label or patient information. If there are no specific instructions, medications may be returned to a take- back location or mixed with a small amount of water and an undesirable waste substance such as coffee grounds or cat litter. Sleep: Try to establish normal sleep patterns. Long naps during the day may make it hard for you tosleep at night. Use the pain medication at bedtime for the first week at home if needed. Bowel Movements: After surgery, your bowel movements may not be regular for you, but you should be able to get back to your daily routine quickly. Please make sure to take the stool softeners or mildlaxatives as prescribed to get back to your normal routine. If you do not have a bowel movement formore than 2 days, please call the office. Follow up appointments: You will see Dr. Tran in approximately 2 weeks with a chest Xray withinone hour of the appointment. Our office staff will call you on this Friday or Friday to check up on you and discuss appointment information. A letter will be mailed to you confirming your appointment information. You should arrange to see your primary care physician, in two weeks. No future appointments. documented in this encounter Medications at Time of Discharge [...] 2 times daily as needed. 04/05/2019 10/21/2019 Ranitidine HCl (ZANTAC) 300 mg Capsule 1 capsule nightly. 5 04/27/2019 023 documented as of this encounter Progress Notes * Chandan Wasserman RN - 10/08/2019 2:10 PM EST Pt d/c to home per md order. Patient AOx4 hrr, lung sounds clear, no n/v sob or chest pain at time of discharge. +bs, lbm 08 Oct 2019, voiding clear yellow urine. Patient ambulating independently at this time. Pain well controlled with tylenol, oxycodone. All LDA's removed. All belongings home with patient. Prescriptions given to patient, all discharge instructions reviewed with patient. All questions answered. Please see flowsheet for full assessment. Chandan Wasserman RN * La Camejo RN - 10/07/2019 4:30 PM EST Report received from VENU Ace. Patient arrived via bed to floor from PACU alert and oriented x4, VSS. Patient states that pain is tolerable but rates pain at an 8 residing in her lower back. See MAR for pain medications administered. Educated patient on pain management. Patient verbalizes understanding of pain control. Patient denies CP/SOB. Right flank incisions are well approximated, sutures in place, sites open to air. Chest tube site covered with gauze and a tegaderm, sanguionous drainagebut dressing is intact. Patient ordered dinner. Oriented patient to room, call guadalupe is within reach. Will continue to monitor. La Camejo RN * Malka Claire RN - 10/07/2019 3:08 PM EST Report called La LEA on receiving unit; patient awaiting transfer; SPEECH LANGUAGE PATHOLOGY ASSISTANTVENU ortega. * Tan Quigley MD - 10/07/2019 7:37 AM EST THORACIC SURGERY INPATIENT DAILY PROGRESS NOTE Patient Name: Marleni Arreola Patient Age: 59 y.o. Birthdate: 1960 Admit date: 10/06/2019 Attending Physician: Juan Tran MD ID: Marleni Arreola is a 59 y.o. female No POD# 1 s/p Robotic R VATS RLL basilar segmentectomy for a RLL NSCLC. 24hr events: Some low urine output post op - given 500 cc bolus X 2 with good response Subjective: Pain is well controlled. Taking in deep breaths. Has yet to ambulate. On RA this AM. Tolerating reg diet O: Last value Range last 24hrs Temperature Temp: 36.4 ??C (97.5 ??F) Temp: [36 ??C (96.8 ??F)-36.4 ??C (97.5 ??F)] Heart Rate Heart Rate: 87 Heart Rate: [73-89] Blood Pressure BP: 100/47 BP: (90-150)/(43-108) Respiratory Rate Resp: 18 Resp: [8-18] SpO2 SpO2: 90 % SpO2: [87 %-100 %] 10/06 701 - 10/07 07 In: 3771.3 [P.O.:730; I.V.:3041.3] Out: 605 [Urine:535] Regular diet CT output: 50 since OR, 0 overnight Physical Exam: General: NAD, A&Ox3, resting in bed, cooperative HEENT: normocephalic, anicteric sclerae CVS: RRR, no m/r/g Pulm: CTAB, no wheezes or rhonchi, right chest tube with SS fluid, no air leak on waterseal, incisions are c/d/i Abd: soft, non-tender/appropriately tender, non-distended. No guarding. Walden with clear yellow urine. Skin: warm, dry Ext: well perfused, no edema Neuro: Grossly intact, nonfocal, moving all four extremities spontaneously. Recent Labs 10/07/19 0726 WBC 12.2* HGB 10.5* HCT 31.3* PLATELET 187 Recent Labs 10/07/19 0726 NA 130* K 4.0 CL 94* CO2 21* BUN 18 CREATININE 1.08 GLUCOSE 145 CALCIUM 8.2* Other Labs: Imaging: CXR: IMPRESSION 1. Increased right lower lateral chest wall air. 2. Apically oriented right chest tube in unchanged position. No right pneumothorax. ASSESSMENT: Marleni Arreola is a 59 y.o. female POD# 1 s/p Robotic R VATS RLL basilar segmentectomyfor RLL lung nodule. Frozen c/w adenocarcinoma. Pt doing well this AM with great pain control. UOP low overnight with response to bolus. No air leak and minimal chest tube output. Will plan on removing and getting a post pull. Possible DC home this afternoon. PLAN Neuro: Tylenol, oxycodone PRN if needed (will hold toradol for now given low UOP overnight pending Cr.) CV: No issues, continue home metoprolol, hold other home anti-hypertensive for now. Pulm: Aggressive IS. Scheduled Duonebs. Will remove chest tube today. Post removal Xray GI: Reg diet, bowel meds scheduled, HLIVF : Keep walden in for the AM. If continues to have good UOP will remove. Cr 1.08--will encourage POhydration FEK: HLIV PPX Q8 SQH, SCDs, Ambulating, IS, cont home PPI dosing DISPO: if doing well today plan for dc this afternoon Tan Quigley MD [id number] Associated attestation - Juan Tran MD - 10/07/2019 11:26 AM EST I have seen the patient and reviewed the resident's above note and I agree with the details as written. The assessment and plan were formulated in discussion with me and I agree with them as documented. Doing well this am. Chest tube removed. Plan for discharge today if able to void and ambulate without issues. Juan Tran MD 10/07/2019 * Robert You MD - 10/06/2019 10:47 PM EST Surgery Post Op Check Marleni Arreola is a 59 y.o. female status post RLL segmentectomy and wedge resection S: No nausea/vomiting, chest pain, SOB, pain well controlled, offers no complaints O: Temp: [36 ??C (96.8 ??F)-36.2 ??C (97.2 ??F)] Heart Rate: [81-89] Resp: [8-18] BP: (91-133)/(46-108) SpO2: [92 %-100 %] Heart Rate from SpO2: [81 bpm-89 bpm] I/O last 3 completed shifts: In: 1040 [P.O.:240; I.V.:800] Out: 325 [Urine:275; Blood:50] I/O this shift: In: 640 [P.O.:240; I.V.:400] Out: 40 [Urine:35; Other:5] UOP since OR: 400cc Physical Exam General: NAD, resting comfortably HEENT: PERRL, anicteric sclerae CVS: Regular rate, no murmurs rubs or gallops Pulm: Clear bilaterally, no wheezes, Right CT to ws with no appreciable leak, draining ss fluid, breathing comfortably on 2L NC Abd: soft, non tender, non distended Ext: wwp Neuro: No focal neuro deficits AP Marleni Arreola is a 59 y.o. female status post RLL segmentectomy and wedge resection currently in stable condition and recovering well. No complaints. -continue current team plan - pain well controlled - hemodynamically stable - UOP adequate * Khadra Aquino RN - 10/06/2019 6:43 PM EST 1828: Pt arrived to PACU10 from OR, vital signs stable, alarms audible and set appropriately, arterial line leveled and zeroed, urethral catheter draining clear yellow urine, R chest tube to water seal, nasal airway placed by SPEECH LANGUAGE PATHOLOGY ASSISTANT for airway obstruction, pt in no apparent distress, will continueto monitor 1844: nasal airway removed 1904: chest x-ray completed 0: Dr. Tran at the bedside 2029: Pt visitors at the bedside, pt resting in bed, appears comfortable, converses appropriately, tolerating ice chips and sips of water. 2134: Report given to VENU Ferro. documented in this encounter H&P Notes * Tan Quigley MD - 10/06/2019 11:37 AM EST Thoracic Surgery Preop NAME: Marleni Arreola DATE: 10/06/19 SURGEON: JUAN TRAN PROCEDURE: Bronchoscopy + Robotic R lower lobe wedge, possible segmentectomy/lobectomy BRIEF HISTORY: Marleni Arreola is a 59 y.o. female with PMHx significant for COPD, fibromyalgia, hypothyroidism, HTN, CKD stage III, PTSD and anxiety. Patient reports that in March 2019 she fell backward while opening a drawer, and she was also having issues with abdominal pain around that time. CT Abd/Pelvis was performed 04/18/19 which revealed colitis, acute burst fracture of L1, as well as 16 mmfocal opacity of RLL. CT Chest was performed 07/02/18 which demonstrated stable [id number] nodules in the RLL, largest measuring 9 x 10 mm. PET was then performed 08/04/19 which revealed the 15 mm RLL nodule to be FDG avid, with no other suspected sites of involvement. Of note she has anomalous pulmonary venous return with a separate venous ostium from the posterior aspect of the upper lobe and thesuperior segment of the lower lobe. The patient reports no interval change. There has been no interval medical illness or hospitalizations. Questions have been addressed. Denies new SOB chest pain fevers chills. continues to not smoke. Smoking HX: Social History Tobacco Use Smoking Status Former Smoker ??? Packs/day: 0.50 ??? Years: 42.00 ??? Pack years: 21.00 ??? Types: Cigarettes ??? Last attempt to quit: 07/02/2019 ??? Years since quittin.2 Smokeless Tobacco Former User ??? Quit date: 07/02/2019 PMH: Patient Active Problem List Diagnosis Date Noted ??? Lung nodule 09/16/2019 ??? Dizziness 09/16/2019 ??? Closed compression fracture of body of L1 vertebra 05/04/2019 PSH: No past surgical history on file. MEDS: No current facility-administered medications on file prior to encounter. Current Outpatient Medications on File Prior to Encounter Medication Sig Dispense Refill ??? amitriptyline (ELAVIL) 100 mg Tablet 1 [...] mcg Tablet 1 tablet daily. 3 ??? loratadine (CLARITIN) 10 mg Tablet 1 tablet daily. ??? metoprolol tartrate (LOPRESSOR) 50 mg Tablet 1 tablet 2 times daily. 4 ??? naproxen (NAPROSYN) 375 mg Tablet 1 tablet 2 times daily as needed. ??? Ranitidine HCl (ZANTAC) 300 mg Capsule 1 capsule nightly. 5 ??? cyanocobalamin, vitamin B-12, 1,000 mcg Tablet Take 1,000 mcg by mouth daily. ??? albuterol 90 mcg/actuation HFA Aerosol Inhaler Inhale 2 puffs into the lungs every 4 hours as needed for Wheezing. Use with spacer ??? omeprazole (PRILOSEC) 40 mg capsule ??? oxyCODONE (ROXICODONE) 5 mg Tablet 1 tablet 3 times daily. 0 ALL: Allergies Allergen Reactions ??? Cis Free Text Allergy COMBID. ??? Isopropamide ??? Prochlorperazine Physical Exam There were no vitals filed for this visit. Gen: NAD, pleasant, sitting HEENT: normocephalic, atraumatic, EOMI, sclerae anicteric Neck: supple, trachea midline Card: RRR, no M/R/G appreciated Pulm: CTAB, no wheeze/ronchi/rales appreciated, non-labored breathing Abd: soft, NT, BS+ Ext: warm, dry, no edema Neuro: A&Ox3, CN II-XII grossly intact nonfocal, conversant LABS: Lab Results Component Value Date WBC 8.3 09/16/2019 RBC 4.54 09/16/2019 HGB 13.6 09/16/2019 HCT 42.3 09/16/2019 MCV 93.2 09/16/2019 MCH 30.0 09/16/2019 MCHC 32.2 09/16/2019 PLATELET 249 09/16/2019 RDWCV 13.3 09/16/2019 Lab Results Component Value Date/Time NA 138 09/16/2019 12:43 PM K 4.0 09/16/2019 12:43 PM CL 99 09/16/2019 12:43 PM CO2 24 09/16/2019 12:43 PM BUN 8 09/16/2019 12:43 PM CREATININE 0.91 09/16/2019 12:43 PM ECHO (TTE): (09/22/19): 1. The left ventricular chamber size is [...] is no prior echocardiogram available for comparison CT: (09/16/19) IMPRESSION 15 mm right lower lobe pulmonary [...] and apical right lower lobe pulmonary vein. PET (08/04/19): 1. FDG avid 13 mm Right lower lobe nodule, concerning for malignancy. 2. No regional connie or suspected distant metastases. 3. Increased activity at the superior endplate of the known L1 burst fracture, anatomically stable in appearance and alignment compared to 07/27/2019 CT. PFTs: (08/04/19): FVC of 2.31, 77% of predicted; and FEV1 of 1.73, 74% predicted; and a DLCO of 61% PATHOLOGY: NA FILM ON PACS: Yes CONSENT: Yes/EMR - Yes Assessment/Plan: Marleni Arreola is a 59 y.o. female presenting today for planned a Bronch + RLL Wedge possible segementectomy, possible lobectomy for a PET avid RLL 1.5 cm noldue. Consent signed andconfirmed in chart. Questions addressed. Will proceed with planned surgery. Heparin SQ to be given prior to induction. 2g of Ancef prior to incision. Tan Quigley MD 10/06/2019 Thoracic Surgery Service Pager [phone] Associated attestation - Juan Tran MD - 10/06/2019 2:42 PM EST I have seen the patient and reviewed the resident's above note and I agree with the details as written. The assessment and plan were formulated in discussion with me and I agree with them as documented. Juan Tran MD 10/06/2019 documented in this encounter Miscellaneous Notes * Plan of Care - Shahnaz Pfeiffer, RN - 10/08/2019 5:41 AM EST Problem: Patient Care Overview Goal: Plan of Care Review Outcome: Ongoing (Interventions Implemented as Appropriate) 10/07/19 0558 10/07/19 2130 Coping/Psychosocial Plan Of Care Reviewed With -- patient Plan of Care Review Progress progress toward functional goals as expected -- OUTCOME EVALUATION NOTE: OUTCOME SUMMARY: Pt ambulating to bathroom with standby assist, steady gait. Minimal complaints of pain. Admin neb treatments per orders. Pt reports using IS throughout day, reinforced need to use. Incisions to R chest well approximated with dermabond in place. Old chest tube site dressing with old serosanguineous drainage, no crepitus noted. Pt retaining urine throughout night, PVRs as high as 600. aware, straight cath x2 for 900ml and 800ml each. Pt stated that she straight caths at home occasionally as well, and has been having problems voiding since the initial fall. VSS. Neuro checks unchanged from previous shift. PLAN MOVING FORWARD: Neuro checks, continue to track PVR and obtain orders for straight cath as needed, pain control, neb treatments, pulm toilet, notify team of changes. INDIVIDUALIZED FALL PREVENTION INTERVENTIONS: Patient-specific fall risk factors per assessment: [current deficits]: Generalized weakness, IV, SCD Assistance [level of assistance required for transfers and ambulation]: 1 assist Supervision [direct monitoring required during toileting and ADLs]: Standby Surveillance [continuous indirect monitoring]: Spencer, hourly rounding Patient-specific fall prevention interventions for sensory deficits provided, if applicable: [X] No CPG GOAL OUTCOME EVALUATION: Goal: Fall Prevention-Safe Patient Handling Outcome: Ongoing (Interventions Implemented as Appropriate) 10/07/19 [id number] Ocasio Fall Risk History of Falling -- 25 -- Secondary Diagnosis -- 15 -- Ambulatory Aids -- 15 -- Intravenous Therapy/Heparin/Saline Lock -- 20 -- Gait/Transferring -- 10 -- Mental Status -- 0 -- Score -- 85 -- OTHER Ocasio Fall Risk High -- -- Restraint Interventions Safety Promotion/Fall Prevention -- activity supervised;fall prevention program maintained;nonskid shoes/slippers when out of bed;safety round/check completed -- Positioning Body Position -- independent -- Activity Activity Type -- -- ambulated to bathroom Activity Assistance Provided -- -- assistance, stand-by Assistive Device Utilized -- -- none Goal: Infection Control Outcome: Ongoing (Interventions Implemented as Appropriate) 10/07/192129 Safety Interventions Isolation Precautions standard precautions maintained Infection Prevention barrier precautions utilized;environmental surveillance performed;personal protective equipment utilized;rest/sleep promoted Coping Strategies Supportive Measures active listening utilized;self-care encouraged;verbalization of feelings encouraged * Plan of Care - Vini Lizama RN - 10/07/2019 6:07 AM EST Problem: Patient Care Overview Goal: Plan of Care Review Outcome: Ongoing (Interventions Implemented as Appropriate) 10/07/19 0558 Coping/Psychosocial Plan Of Care Reviewed With patient Plan of Care Review Progress progress toward functional goals as expected OUTCOME EVALUATION NOTE: OUTCOME SUMMARY: Pt is s/p thoracoscopy with R lung mass resection. A/O x4, LS CTA, non productive cough noted. Pt sats>95% on RA while awake but required 2L while sleeping. Chest tube to RCW to h2o seal, slight fluctuation noted, no crepitus, dressing cdi, under 20 cc of serosanguineous drainage this shift. Scheduled nebs admin bper order. S1S2, pt had low SBP and diastolic pressures (see doc flow) and was given (2) 500 cc LR boluses. Last BP was 100/47. +BS, denies n/v/d, Pt has Walden draining clear keke urine, rates were as low as 12/hr (MD aware) but now are >30/hr. Pt reported pain in lower back (Chronic) as well as surgical pain. This was treated with prn oxycodone and scheduled Tylenol, reducing pain to a tolerable 4/10. Pt used IS with encouragement 10xs to volume of 1700 and also stood at bedside and marched in place, she tolerated both well. Plan: PT/OT Pain control Discharge planning * Op Note - Juan Tran MD - 10/06/2019 6:54 PM EST [facility] [place] Operative Note Patient Name: Marleni Arreola : [id number] MR#: [id number] Case Date: 10/06/2019 Surgeon: Surgeon(s) and Role: * Juan Tran MD - Primary * Pau Guerrero PA - Physician Voltmeter Operator * Tan Quigley MD - Resident Preoperative diagnosis: right lower lobe lung nodule Postoperative diagnosis: right lower lobe lung cancer Procedure(s) (LRB): @ROBOT XI THORACOSCOPY,SURG; W/DX WEDGE RESC W/ANATOMIC LUNG RESC (WRVU 3) (Right) BRONCHOSCOPY, DIAGNOSTIC (WRVU 2.78) (N/A) MODIFIER ROBOT,JONH XI (N/A) NERVE BLOCK, INTERCOSTAL NERVE, MULTIPLE (WRVU 1.68) (Right) @ROBOT XI THORACOSCOPY,SURG; W/MEDIASTINAL& REGIONAL LYMPHADENECTOMY (WRVU 4.12) (Right) @ROBOT XI THORACOSCOPY,SURGICAL,W\LOBECTOMY,TOTAL OR SEGMENTAL (WRVU 24.64) (Right) Findings: Normal endobronchial anatomy. Frozen sectioning of the posterior wedge was positive for malignancy. The anterior wedge resection was negative for malignancy. A completion basilar segmentectomy of the right lower lobe was performed. A mediastinal lymph node dissection was performed. Anesthesia: General Estimated Blood Loss: 50cc Specimens removed during surgery: Order Name Source Comment Collection Info Order Time SPECIMEN TO PATHOLOGY OR11 [id number] right lower lobe lung nodule Right lower lobe wedge excision YES, Please perform frozen section 10/06/2019 3:49 PM Number of tissue samples (in container) 1 Time specimen removed from patient: 3:48 PM SPECIMEN TO PATHOLOGY OR11 [id number] right lower lobe lung nodule Right lower lobe wedge posterior excision YES, Please perform frozen section 10/06/2019 4:06 PM Number of tissue samples (in container) 1 Time specimen removed from patient: 4:06 PM PATHOLOGY ORDER UPDATE 10/06/2019 4:13 PM Additional information: Additional Info Enter requested changes: stitch chen nodule eD-H Order Id number [id number] SPECIMEN TO PATHOLOGY [id number] right lower lobe lung nodule 12R lymph node in fissure excision 10/06/2019 4:15 PM Number of tissue samples (in container) 1 Time specimen removed from patient: 4:15 PM SPECIMEN TO PATHOLOGY right lower lobe lung nodule 12R lymph node in fissure #2 excision 10/06/2019 4:19 PM Number of tissue samples (in container) 1 Time specimen removed from patient: 4:19 PM SPECIMEN TO PATHOLOGY [id number] right lower lobe lung nodule 8R Lymph Node excision 10/06/2019 4:25 PM Number of tissue samples (in container) 1 Time specimen removed from patient: 4:25 PM SPECIMEN TO PATHOLOGY [id number] right lower lobe lung nodule level 7 excision 10/06/2019 4:27 PM Number of tissue samples (in container) 1 Time specimen removed from patient: 4:27 PM PATHOLOGY ORDER UPDATE 10/06/2019 4:31 PM Additional information: Additional Info Enter requested changes: level 7 lymph node packet eD-H Order Id number [id number] SPECIMEN TO PATHOLOGY [id number] right lower lobe lung nodule 12R lymph node posterior excision 10/06/2019 4:54 PM Number of tissue samples (in container) 1 Time specimen removed from patient: 4:54 PM SPECIMEN TO PATHOLOGY OR 11 [id number] right lower lobe lung nodule 10R lymph node packet excision 10/06/2019 5:26 PM Time specimen removed from patient: 5:25 PM Number of tissue samples (in container) 1 SPECIMEN TO PATHOLOGY OR 11 [id number] right lower lobe lung nodule 4R lymph node packet excision No 10/06/2019 5:29 PM Time specimen removed from patient: 5:29 PM Number of tissue samples (in container) 1 Biospecimen to store? No SPECIMEN TO PATHOLOGY OR 11 [id number] right lower lobe lung nodule completion RLL basilar segmentectomy-stitch chen superior margin excision 10/06/2019 5:41 PM Time specimen removed from patient: 5:40 PM Number of tissue samples (in container) 1 Drains: 28F chest tube Surgical Closure: Primary Closure - skin incision is completely closed without any wires, sangeeta, drains or other devices Disposition: awakened from anesthesia, extubated and taken to the recovery room in a stable condition, having suffered no apparent untoward event. Condition: stable (Please see the Surgical Encounter Summary for any Implant and Specimen details pertinent to this patient.) HPI/Surgical Indications: Ms.??Arreola??is a 59 y.o.??female??with a PET avid 13mm??RLL??lung nodule.??We have discussed the differential diagnosis including primary lung cancer, metastatic cancer to the lung, or benign lung nodule.??We have discussed options including observation/surveillance, percutaneous or bronchoscopic biopsy, or surgical resection.??We??have discussed with her??the risks of a Bronchoscopy and??robot assisted Right lower lobe wedge resection with possible Right lower lobe segmentectomy/lobectomy and mediastinal lymph node dissection.?She??understands the risks of bleeding, damage to surrounding structures, including the laryngeal nerve resulting in hoarseness, the phrenic nerve resulting in diaphragmatic paralysis, possible shortness of breath, the need for oxygen,a benign nodule, cancer recurrence (if cancer), a prolonged air leak, heart attack, arrhythmia, stroke and .?She??asked appropriate questions and would like to proceed. Given her lung function, I would plan to perform a basilar segmentectomy if the nodule is found to be a lung cancer, whichwill be facilitated by her anomalous pulmonary venous return with a separate venous ostium from theposterior aspect of the upper lobe and the superior segment of the lower lobe. ?? Procedure Description: The patient was identified in the preoperative holding area. She was broughtto the operating room. A second verification process including patient's name, medical record number, date of and planned procedure was performed. She was placed supine on the operating table. S equential compression devices and subcutaneous heparin were administered. She received appropriate prophylactic IV antibiotics prior to the incision. General anesthesia was induced by the anesthesiology staff with a double-lumen endotracheal tube. This was confirmed to be in the appropriate position bronchoscopically. A timeout was performed. The flexible diagnostic bronchoscope was inserted on the tracheal lumen. This demonstrated no evidence of any endobronchial abnormality in the distal trachea. The emmy was sharp. Scope was advanced to the right mainstem bronchus and sequential into theright upper, middle, and lower lobes. Scope was removed and advanced on the left mainstem bronchus.It was sequentially advanced into the left upper and lower lobes. There is no evidence of any endobronchial abnormality to level the subsegmental bronchi bilaterally. The scope was removed. The patient was rotated into the left lateral decubitus position. She was properly padded in all areas. She is prepped and draped in usual sterile fashion. An 8 mm incision was made the seventh intercostal space in the posterior axillary line. Blunt dissection was used to enter the right pleural space following isolation of the right lung. A 8 millimeter robotic port was inserted and the thoracoscope was inserted. This demonstrated good isolation of the right lung. There is no evidence of gross peritoneal disease. Multilevel intercostal nerve block with Exparel was performed. Additional robotic ports were then placed in a standard fashion under direct vision. The da Britton robot was brought onto the field and docked to the patient. Robotic instruments were inserted under direct vision. Attention was turned to the right lower lobe. There is a clearly visible nodule that was present on the inferior medial aspect of the right lower lobe. This was removed with a generous wedge resection with several firings of the robotic stapler with blue loads. This was placed in a specimen retrieval bag and removed from the patient. There is a clearly palpable nodule that was present here but did not appear to be consistent with the size of the nodule that was present on the patient's CAT scan. This was sent for frozen sectioning and was negative for malignancy. Additional review of the patient's CAT scan and additional palpation found another palpable nodule that was present in the inferior aspect of the lower lobe more posteriorly. This was removed with an additional wedge resection with several firings of the robotic stapler with blue loads. This was placed in a specimen retrieval bag and removed from the patient. This was examined on back table there is clearly a palpable nodule present in the specimen. This was also sent for frozen sectioning was positive for malignancy. Consequently, a completion basilar segmentectomy of the right lower lobe was then performed. The lung was rotated anteriorly. The posterior pleura was incised. Inferior pulmonary ligament was divided. There is no obvious 9R lymph node. There were several paraesophageal lymph nodes. These were circumferentially dissected and sent as a 8R lymph nodes for permanent histology. Dissection of the posterior pleura extended up to the level the azygos vein. A level 7 lymph node dissection was performed in the subcarinal space. Multiple lymph nodes were identified in this area and circumferentially dissected. They were sent for permanent histology. The inferior pulmonary vein was circumferentially dissected. Care was taken to avoid injury to the anomalous branch that was a confluence of the p ulmonary veins from the superior segment of the lower lobe in the posterior segment of the upper lobe. The inferior pulmonary vein was divided with a single firing of the robotic stapler with a whiteload. Dissection was then begun in the fissure. The pulmonary artery was easily identified. The basilar trunk of the pulmonary artery was circumferentially dissected. Care was taken to avoid injury to the branch to the superior segment of the lower lobe. The ongoing pulmonary artery was divided with a single firing of the robotic stapler with a white load. This allowed for additional visualization of the lower lobe bronchus. The superior segment bronchus was identified. Several 12 R lymph nodes were identified and sent for permanent histology. The basilar trunk bronchus was then circumferentially dissected. This was divided with a single firing of the robotic stapler with a green load. Thisleft only the lung parenchyma of the basilar segment in place. This was divided with several firings of the robotic stapler with blue loads. The specimen was then placed in a specimen retrieval bag and removed from the patient. This was sent for permanent histology with a suture marking the superior margin. The lung was then rotated inferiorly. The pleura above the azygos vein and posterior to the superior vena cava was incised. 4R lymph node dissection was performed. There are multiple lymph nodes present in this area. They were circumferentially dissected and sent for permanent histology. Similar dissection was then performed below the level of the azygos vein. There were multiple 10 R lymph nodes that were present in this area. These were circumferentially dissected and sent for permanent histology. Hemostasis was checked for meticulously achieved. All staple lines were inspected and there is excellent hemostasis at the staple lines. There is no evidence of any ongoing bleeding in the dissectionbeds. The robotic instruments were removed and the da Britton robot was de-docked from the patient removed from the field. A 28 Mongolian chest tube was placed through the initial incision and directed posterior and apically. Was secured to the skin with an 0 silk suture. Lung was reinflated under direct vision there is excellent reexpansion of the upper and middle lobes. There was good reexpansion ofthe superior segment of the lower lobe. The ports were removed and there is no bleeding from the port sites. The incisions were closed in layers with 2-0 Vicryl suture in the deep muscular deep dermal tissue and 4 Monocryl in the skin. Sterile dressings of Dermabond were applied to the incisions. Asterile dressing was applied to the chest tube site. Repeat bronchoscopy was performed this demonstrated an intact bronchial stump at the basilar trunk of the right lower lobe. The superior segment bronchus was entirely patent. Any additional blood mucus was suctioned from the central airways. The patient tolerated the procedure well. There were no apparent complications. All sponge and instrument counts were correct at the end of the case. She was awoken from general anesthesia and extubated in the operating room. She was taken to the recovery room. I was scrubbed and/or present for the entire procedure. Juan Tran MD 10/06/2019 * Brief Op Note - Tan Quigley MD - 10/06/2019 6:38 PM EST Brief Operative Note Patient Name: Marleni Arreola : [id number] MR#: [id number] Case Date: 10/06/2019 Surgeon: Surgeon(s) and Role: * Juan Tran MD - Primary * Pau Guerrero PA - Physician Voltmeter Operator * Tan Quigley MD - Resident Preoperative diagnosis: right lower lobe lung nodule Postoperative diagnosis: right lower lobe lung nodule Procedure(s) (LRB): @ROBOT XI THORACOSCOPY,SURG; W/DX WEDGE RESC W/ANATOMIC LUNG RESC (WRVU 3) (Right) BRONCHOSCOPY, DIAGNOSTIC (WRVU 2.78) (N/A) MODIFIER ROBOT,DAVINCI XI (N/A) NERVE BLOCK, INTERCOSTAL NERVE, MULTIPLE (WRVU 1.68) (Right) @ROBOT XI THORACOSCOPY,SURG; W/MEDIASTINAL& REGIONAL LYMPHADENECTOMY (WRVU 4.12) (Right) Anesthesia: General Findings: 1) normal appearing airways on bronchoscopy 2) No evidence of metastatic disease in right hemithorax 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 Posterior RLL wedge consistent with nodule seen CT scan and PET sent for frozen- positive for adenocarcinoma. - right lower lobe basilar segmentectomy with sparing of the superior segment performed. MLND performed and good hemostasis at end of case 4) completion bronch with surgically absent basilar bronchus and patent superior segment of RLL bronchus. Complications: none Estimated Blood Loss: * No values recorded between 10/06/2019 3:17 PM and 10/06/2019 6:07 PM * Specimens removed during surgery: Order Name Source Comment Collection Info Order Time SPECIMEN TO PATHOLOGY OR11 [id number] right lower lobe lung nodule Right lower lobe wedge excision YES, Please perform frozen section 10/06/2019 3:49 PM Number of tissue samples (in container) 1 Time specimen removed from patient: 3:48 PM SPECIMEN TO PATHOLOGY OR11 [id number] right lower lobe lung nodule Right lower lobe wedge posterior excision YES, Please perform frozen section 10/06/2019 4:06 PM Number of tissue samples (in container) 1 Time specimen removed from patient: 4:06 PM PATHOLOGY ORDER UPDATE 10/06/2019 4:13 PM Additional information: Additional Info Enter requested changes: stitch chen nodule eD-H Order Id number [id number] SPECIMEN TO PATHOLOGY [id number] right lower lobe lung nodule 12R lymph node in fissure excision 10/06/2019 4:15 PM Number of tissue samples (in container) 1 Time specimen removed from patient: 4:15 PM SPECIMEN TO PATHOLOGY right lower lobe lung nodule 12R lymph node in fissure #2 excision 10/06/2019 4:19 PM Number of tissue samples (in container) 1 Time specimen removed from patient: 4:19 PM SPECIMEN TO PATHOLOGY [id number] right lower lobe lung nodule 8R Lymph Node excision 10/06/2019 4:25 PM Number of tissue samples (in container) 1 Time specimen removed from patient: 4:25 PM SPECIMEN TO PATHOLOGY [id number] right lower lobe lung nodule level 7 excision 10/06/2019 4:27 PM Number of tissue samples (in container) 1 Time specimen removed from patient: 4:27 PM PATHOLOGY ORDER UPDATE 10/06/2019 4:31 PM Additional information: Additional Info Enter requested changes: level 7 lymph node packet eD-H Order Id number [id number] SPECIMEN TO PATHOLOGY [id number] right lower lobe lung nodule 12R lymph node posterior excision 10/06/2019 4:54 PM Number of tissue samples (in container) 1 Time specimen removed from patient: 4:54 PM SPECIMEN TO PATHOLOGY OR 11 [id number] right lower lobe lung nodule 10R lymph node packet excision 10/06/2019 5:26 PM Time specimen removed from patient: 5:25 PM Number of tissue samples (in container) 1 SPECIMEN TO PATHOLOGY OR 11 [id number] right lower lobe lung nodule 4R lymph node packet excision No 10/06/2019 5:29 PM Time specimen removed from patient: 5:29 PM Number of tissue samples (in container) 1 Biospecimen to store? No SPECIMEN TO PATHOLOGY OR 11 [id number] right lower lobe lung nodule completion RLL basilar segmentectomy-stitch chen superior margin excision 10/06/2019 5:41 PM Time specimen removed from patient: 5:40 PM Number of tissue samples (in container) 1 Fluids: Intraprocedure Crystalloid Total None PRBCs: none (See Anesthesia Record/Report for Other Blood Products) Urine Output: 210 mL Drains: 28 Fr chest tube Disposition: awakened from anesthesia, extubated and taken to the recovery room in a stable condition, having suffered no apparent untoward event. Condition: doing well without problems (Please see the Surgical Encounter Summary for any Implant and Specimen details pertinent to this patient.) Infection Bundle used? No Tan Quigley MD documented in this encounter Plan of Treatment Not on file documented as of this encounter Procedures Procedure Name Priority Date/Time Associated Diagnosis Comments XR CHEST PA AND LATERAL Routine 10/07/20 4:28 PM EST XR CHEST PA AND LATERAL Timed 10/07/20 1:39 PM EST HEMOGRAM STAT 10/07/2019 7:26 AM EST DIFFERENTIAL, AUTOMATED STAT 10/07/20 7:26 AM EST HC CBC,PLT & AUTO DIFF STAT 9 7:26 AM EST BASIC METABOLIC PANEL (NON-FASTING) STAT 10/07/2019 7:26 AM EST XR CHEST PA AND LATERAL Timed 10/07/20 3:14 AM EST XR CHEST ONE VIEW STAT 10/06/2019 7:1 7 PM EST ROBOT XI THORACOSCOPY,SURGICAL,W \LOBECTOMY,TOTAL OR SEGMENTAL Routine 10/06/2019 6:54 PM EST Lung nodule SPECIMEN TO PATHOLOGY Routine 10/06/2019 5:41 PM EST SPECIMEN TO PATHOLOGY Routine 10/06/2019 5:29 PM EST SPECIMEN TO PATHOLOGY Routine 10/06/2019 5:26 PM EST ROBOT XI THORACOSCOPY,SURG; W/MEDIASTINAL& REGIONAL LYMPHADENECTOMY Routine 10/06/2019 5:08 PM EST Lung nodule NERVE BLOCK, INTERCOSTAL NERVE, MULTIPLE Routine 10/06/2019 5:08 PM EST Lung nodule SPECIMEN TO PATHOLOGY Routine 10/06/2019 4:54 PM EST SPECIMEN TO PATHOLOGY Routine 10/06/2019 4:27 PM EST SPECIMEN TO PATHOLOGY Routine 10/06/2019 4:25 PM EST SPECIMEN TO PATHOLOGY Routine 10/06/2019 4:20 PM EST SPECIMEN TO PATHOLOGY Routine 10/06/2019 4:15 PM EST SPECIMEN TO PATHOLOGY STAT 10/06/2019 4:07 PM EST BLOOD GAS 2 ARTERIAL Routine 10/06/2019 3:51 PM EST SPECIMEN TO PATHOLOGY STAT 10/06/2019 3:49 PM EST SOLID TUMOR NGS PANEL Routine 10/06/2019 3:48 PM EST SURGICAL PATHOLOGY REPORT Routine 10/06/2019 3:48 PM EST Thoracoscopy Surg Lobectomy (46512) 10/06/2019 2:49 PM EST Lung nodule Thoracoscopy With Mediastinal And Regional Lymphadenectomy 10/06/2019 2:49 PM EST Lung nodule Injection Anes Agent &/ Steroid Intercostal Nerve Ea Addl Level (93475) 10/06/2019 2:49 PM EST Lung nodule MODIFIER ROBOT,DAVINCI XI 10/06/2019 2:49 PM EST Lung nodule Bronchoscopy, Diagnostic (18031) 10/06/2019 2:49 PM EST Lung nodule Thoracoscopy With Wedge Resection And Anatomic Lung Resectn 10/06/2019 2:49 PM EST Lung nodule BRONCHOSCOPY,DIAGNOSTIC Routine 10/06/20 19 11:31 AM EST Lung nodule documented in this [...] please contact the number below. ? Narrative 10/21/2019 10:55 AM EST EXAMINATION: XR [...] this report, please contact the number below. Juan Tran MD IMG DX ORDERABLES * XR Chest PA & Lateral (Generic) (10/07/2019 4:28 PM EST) Anatomical Region Laterality Modality Chest N/A Digital Radiogra phy Impressions 10/07/2019 4:39 PM EST 1. There is no appreciable pneumothorax. 2. The amount of subcutaneous emphysema in the right chest wall slightly diminished from the prior exam. Thank you for letting us participate in the care of this patient. For questions regarding this report, please contact the number below. ? Narrative 10/07/2019 4:39 PM EST EXAMINATION: XR CHEST PA AND LATERAL (GENERIC) CLINICAL HISTORY: s/p R Lower lobe segmentectomy. Please eval for interval changes in ptx and subq air TECHNIQUE: PA and lateral views of the chest COMPARISON: 10/07/2019 FINDINGS: There is no appreciable right pneumothorax. The left lung is grossly clear. The cardiomediastinal silhouette is unchanged. The amount of subcutaneous emphysema in the right chest wall appears slightly diminished from the prior exam. Procedure Note Jyotsna Bullock MD - 10/07/2019 EXAMINATION: XR CHEST PA AND LATERAL (GENERIC) CLINICAL HISTORY: s/p R Lower lobe segmentectomy. Please eval forinterval changes in ptx and subq air TECHNIQUE: PA and lateral views of the chest COMPARISON: 10/07/2019 FINDINGS: There is no appreciable right pneumothorax. The left lung is grosslyclear. The cardiomediastinal silhouette is unchanged. The amount of subcutaneousemphysema in the right chest wall appears slightly diminished from the prior exam. IMPRESSION 1. There is no appreciable pneumothorax. 2. The amount of subcutaneous emphysema in the right chest wall slightly diminished from the prior exam. Thank you for letting us participate in the care of this patient. Forquestions regarding this report, please contact the number below. Juan Tran MD IMG DX ORDERABLES * XR Chest PA & Lateral (Generic) (10/07/2019 1:39 PM EST) Anatomical Region Laterality Modality Chest N/A Digital Radiogra phy Impressions 10/07/2019 2:36 PM EST Trace right apical pneumothorax. Extensive subcutaneous emphysema in the right chest wall. Thank you for letting us participate in the care of this patient. For questions regarding this report, please contact the number below. ? Narrative 10/07/2019 2:36 PM EST EXAMINATION: XR CHEST PA AND LATERAL (GENERIC) CLINICAL HISTORY: s/p removal of right chest tube TECHNIQUE: PA and lateral views of the chest COMPARISON: 10/07/2019 FINDINGS: There has been interval removal of the right chest tube. There is a trace residual apical pneumothorax. Extensive subcutaneous emphysema along the right lateral chest wall. The left lung is grossly clear. Cardiac silhouette is unchanged. Procedure Note Jyotsna Bullock MD - 10/07/2019 EXAMINATION: XR CHEST PA AND LATERAL (GENERIC) CLINICAL HISTORY: s/p removal of right chest tube TECHNIQUE: PA and lateral views of the chest COMPARISON: 10/07/2019 FINDINGS: There has been interval removal of the right chest tube. There is atrace residual apical pneumothorax. Extensive subcutaneous emphysema along theright lateral chest wall. The left lung is grossly clear. Cardiac silhouetteis unchanged. IMPRESSION Trace right apical pneumothorax. Extensive subcutaneous emphysema in theright chest wall. Thank you for letting us participate in the care of this patient. Forquestions regarding this report, please contact the number below. Juan Tran MD IMG DX ORDERABLES * (ABNORMAL) Differential, Automated (10/07/2019 7:26 AM EST) Neutrophils % 85.1 % [facility] Neutr Abs (ANC) 10.38(H) 1.70 - 6.10 x10(3)/[facility] Lymphocytes % 10.2 % [facility] Lymphocytes Abs 1.2 0.9 - 3.2 x10(3)/[facility] Monocytes % 4.3 % [facility] Monocyte Abs 0.5 0.3 - 0.9 x10(3)/[facility] Eosinophils % 0.0 % [facility] Eosinophils Abs 0.0 0.0 - 0.4 x10(3)/[facility] Basophils % 0.2 % [facility] Basophils Abs 0.0 0.0 - 0.1 x10(3)/[facility] Immature Gran % 0.20 % [facility] Comment: Immature granulocytes(IG's)percentage and absolute count will include metamyelocytes, myelocytes, and promyelocytes. Blood smears from CBCs yielding IG's will be scanned manually for concordance. If this scan disagrees with the automated IG or if promyelocytes are noted, a manual differential will be performed. Wilma Gran Abs 0.03 0.00 - 0.04 x10(3)/[facility] Blood specimen (specimen) 10/07/2019 7:26 AM EST 10/07/2019 7:31 AM EST Narrative Resulting Agency Comment Spec In Lab Robert You MD HEMATOLOGY ORDERABLE S [facility] [place] [address] * (ABNORMAL) Hemogram (10/07/2019 7:26 AM EST) Pathologist [facility] WBC 12.2(H) 4.0 - 9.5 x10(3)/[facility] RBC 3.47(L) 4.00 - 5.21 x10(6)/[facility] Hemoglobin 10.5(L) 11.7 - 15.5 gm/dL [facility] Hematocrit 31.3(L) 35.7 - 45.8 % [facility] MCV 90.2 82.6 - 94.4 [facility] MCH 30.3 27.1 - 32.0 pg [facility] MCHC 33.5 31.7 - 35.0 gm/dL [facility] Platelets 187 145 - 357 x10(3)/[facility] RDWSD 42.7 37.0 - 46.0 [facility] RDWCV 13.0 11.5 - 14.1 % [facility] MPV 10.3 7.6 - 12.9 [facility] nRBC % Auto 0.0 % [facility] nRBC Abs Auto 0.000 0.000 - 0.000 x10(3)/[facility] Blood specimen (specimen) 10/07/2019 7:26 AM EST 10/07/2019 7:31 AM EST Narrative Resulting Agency Comment Spec In Lab Robert You MD HEMATOLOGY ORDERABLE S [facility] [place] [address] * (ABNORMAL) Basic Metabolic Panel (non-fasting) (10/07/2019 7:26 AM EST) Pathologist [facility] Glucose Lvl 145 65 - 199 mg/dL [facility] Comment:Diabetes: >=200 mg/d L plus symptoms BUN 18 8 - 18 mg/dL [facility] Creatinine 1.08 0.70 - 1.20 mg/dL [facility] Sodium 130(L) 135 - 145 mmol/L [facility] Potassium 4.0 3.5 - 5.0 mmol/L [facility] Comment: Please note: ??Patients with WBC >100,000 may have falsely elevated Potassium levels. ??For accurate Potassium quantification in these patients send serum separator tube (gold top) for subsequent determinations. ??Contact the Clinical Chemistry Laboratory if there are any questions. Chloride 94(L) 98 - 107 mmol/L [facility] CO2 21(L) 22 - 31 mmol/L [facility] Anion Gap 15 5 - 15 mmol/L [facility] Calcium 8.2(L) 8.5 - 10.5 mg/dL [facility] Estimated GFR 56(L) >=60 mL/min/1. 73 m?? [facility] Comment: The eGFR was calculated using the CKD-EPI equation. As with all creatinine based estimates of kidney function, eGFR values calculated with the CKD-EPI equation are not accurate in patients with acute kidney failure, extremes of body mass or the acutely ill. [email or web address] [email or web address] eGFR 65 >=60 mL/min/1. 73 m?? [facility] Comment: The eGFR was calculated using the CKD-EPI equation. As with all creatinine based estimates of kidney function, eGFR values calculated with the CKD-EPI equation are not accurate in patients with acute kidney failure, extremes of body mass or the acutely ill. [email or web address] [email or web address] Blood specimen (specimen) 10/07/2019 7:26 AM EST 10/07/2019 7:31 AM EST Narrative Resulting Agency Comment Spec In Lab Juan Tran MD CHEMISTRY ORDERABLE S [facility] [place] [address] * XR Chest PA & Lateral (Generic) (10/07/2019 3:14 AM EST) Anatomical Region Laterality Modality Chest N/A Digital Radiogra phy Impressions 10/07/2019 4:23 AM EST 1. ??Increased right lower lateral chest wall air. 2. ??Apically oriented right chest tube in unchanged position. No right pneumothorax. I have personally reviewed the image(s) and the residents interpretation and agree with the findings, Tracee Leavitt at 10/07/2019 4:23 AM Thank you for letting us participate in the care of this patient. For questions regarding this report, please contact the number below. ? Narrative 10/07/2019 4:23 AM EST EXAMINATION: XR CHEST PA AND LATERAL (GENERIC) CLINICAL HISTORY: s/p R Lower lobe segmentectomy TECHNIQUE: PA and lateral views of the chest COMPARISON: Chest radiograph dated 10/06/2019. FINDINGS: Apically oriented right chest tube is in unchanged position. No right pneumothorax or pleural effusion. Lungs are well expanded with minimal linear opacities at both lung bases compatible with mild atelectasis. Unchanged mild elevation of the right hemidiaphragm. Right lower lateral chest wall air is significantly increased compared to prior study. Cardiac silhouette is stable. No acute osseous findings. Procedure Note Tracee Leavitt MD - 10/07/2019 EXAMINATION: XR CHEST PA AND LATERAL (GENERIC) CLINICAL HISTORY: s/p R Lower lobe segmentectomy TECHNIQUE: PA and lateral views of the chest COMPARISON: Chest radiograph dated 10/06/2019. FINDINGS: Apically oriented right chest tube is in unchanged position. No right pneumothorax or pleural effusion. Lungs are well expanded withminimal linear opacities at both lung bases compatible with mild atelectasis.Unchanged mild elevation of the right hemidiaphragm. Right lower lateral chest wallair is significantly increased compared to prior study. Cardiac silhouette isstable. No acute osseous findings. IMPRESSION 1. Increased right lower lateral chest wall air. 2. Apically oriented right chest tube in unchanged position. No right pneumothorax. I have personally reviewed the image(s) and the residents interpretationand agree with the findings, Tracee Leavitt at 10/07/2019 4:23 AM Thank you for letting us participate in the care of this patient. Forquestions regarding this report, please contact the number below. Juan Tran MD IMG DX ORDERABLES * XR Chest One View (10/06/2019 7:17 PM EST) Anatomical Region Laterality Modality Chest N/A Digital Radiogra phy Impressions 10/06/2019 8:21 PM EST 1. ??No appreciable pneumothorax status post right lower lobe wedge resection. 2. ??Nonspecific left lung base opacity may represent any combination of atelectasis, pleural effusion, aspiration pneumonitis, or pneumonia. Preliminary report signed by: Dank Dobbins at 10/06/2019 7:52 PM I have personally reviewed the image(s) and the residents interpretation and agree with the findings, William Dietz at 10/06/2019 8:21 PM Thank you for letting us participate in the care of this patient. For questions regarding this report, please contact the number below. ? Narrative 10/06/2019 8:21 PM EST EXAMINATION: XR CHEST ONE VIEW CLINICAL HISTORY: 59-year-old woman with COPD and right lower lobe pulmonary nodule status post wedge resection TECHNIQUE: AP view of the chest COMPARISON: CT chest on 09/16/2019 FINDINGS: There is an apically-oriented right-sided chest tube with port projecting over the mid lung and tip projecting over the apex. There is no appreciable pneumothorax. Slight elevation of the right hemidiaphragm is compatible with right lower lobe wedge resection. There is no opacity or large pleural effusion in the right lung. There is an ill-defined opacity in the left lung base with blunting of the left costophrenic angle and obscuration of the lateral left hemidiaphragm. The cardiomediastinal silhouette and pulmonary vascular markings are within normal limits. Procedure Note William Dietz MD - 10/06/2019 EXAMINATION: XR CHEST ONE VIEW CLINICAL HISTORY: 59-year-old woman with COPD and right lower lobepulmonary nodule status post wedge resection TECHNIQUE: AP view of the chest COMPARISON: CT chest on 09/16/2019 FINDINGS: There is an apically-oriented right-sided chest tube with port projectingover the mid lung and tip projecting over the apex. There is no appreciable pneumothorax. Slight elevation of the right hemidiaphragm is compatible with right lower lobe wedge resection. Thereis no opacity or large pleural effusion in the right lung. There is anill-defined opacity in the left lung base with blunting of the left costophrenic angleand obscuration of the lateral left hemidiaphragm. The cardiomediastinalsilhouette and pulmonary vascular markings are within normal limits. IMPRESSION 1. No appreciable pneumothorax status post right lower lobe wedgeresection. 2. Nonspecific left lung base opacity may represent any combination of atelectasis, pleural effusion, aspiration pneumonitis, or pneumonia. Preliminary report signed by: Dank Dobbins at 10/06/2019 7:52 PM I have personally reviewed the image(s) and the residents interpretationand agree with the findings, William Dietz at 10/06/2019 8:21 PM Thank you for letting us participate in the care of this patient. Forquestions regarding this report, please contact the number below. Juan Tran MD IMG DX ORDERABLES * Specimen to Pathology (10/06/2019 5:41 PM EST) AP Specimen 10/06/2019 5:41 PM EST 10/06/2019 6:00 PM EST Narrative [facility] - 10/06/2019 6:00 PM EST Specimen requisition ordered. ??Separate Pathology report to follow Resulting Agency Comment Spec In Lab Juan Tran MD PATHOLOGY/[place] [address] * Specimen to Pathology (10/06/2019 5:29 PM EST) AP Specimen 10/06/2019 5:29 PM EST 10/06/2019 6:00 PM EST Narrative [facility] - 10/06/2019 6:00 PM EST Specimen requisition ordered. ??Separate Pathology report to follow Resulting Agency Comment Spec In Lab Juan Tran MD PATHOLOGY/CYTOLOGY ORDERABLES Performing Organization Address City/[facility]/[place] [address] * Specimen to Pathology (10/06/2019 5:26 PM EST) AP Specimen 10/06/2019 5:26 PM EST 10/06/2019 6:00 PM EST Narrative [facility] - 10/06/2019 6:00 PM EST Specimen requisition ordered. ??Separate Pathology report to follow Resulting Agency Comment Spec In Lab Juan Tran MD PATHOLOGY/CYTOLOGY ORDERABLES [facility] [place] [place] [address] * Specimen to Pathology (10/06/2019 4:54 PM EST) AP Specimen 10/06/2019 4:54 PM EST 10/06/2019 6:00 PM EST Narrative [facility] - 10/06/2019 6:00 PM EST Specimen requisition ordered. ??Separate Pathology report to follow Resulting Agency Comment Spec In Lab Juan Tran MD PATHOLOGY/CYTOLOGY ORDERABLES Performing Organization Address [facility] [place] [address] * Specimen to Pathology (10/06/2019 4:27 PM EST) AP Specimen 10/06/2019 4:27 PM EST 10/06/2019 6:00 PM EST Narrative [facility] - 10/06/2019 6:00 PM EST Specimen requisition ordered. ??Separate Pathology report to follow Resulting Agency Comment Spec In Lab Juan Tran MD PATHOLOGY/CYTOLOGY ORDERABLES Performing Organization Address [facility] [place] [address] * Specimen to Pathology (10/06/2019 4:25 PM EST) AP Specimen 10/06/2019 4:25 PM EST 10/06/2019 6:00 PM EST Narrative [facility] - 10/06/2019 6:00 PM EST Specimen requisition ordered. ??Separate Pathology report to follow Resulting Agency Comment Spec In Lab Juan Tran MD PATHOLOGY/CYTOLOGY ORDERABLES Performing Organization Address [facility] [place] [address] * Specimen to Pathology (10/06/2019 4:20 PM EST) AP Specimen 10/06/2019 4:20 PM EST 10/06/2019 6:00 PM EST Narrative [facility] - 10/06/2019 6:00 PM EST Specimen requisition ordered. ??Separate Pathology report to follow Resulting Agency Comment Spec In Lab Juan Tran MD PATHOLOGY/CYTOLOGY ORDERABLES Performing Organization Address City/[facility]/ZIP Co de Phone Number [facility] [place] [address] * Specimen to Pathology (10/06/2019 4:15 PM EST) AP Specimen 10/06/2019 4:15 PM EST 10/06/2019 6:00 PM EST Narrative [facility] - 10/06/2019 6:00 PM EST Specimen requisition ordered. ??Separate Pathology report to follow Resulting Agency Comment Spec In Lab Juan Tran MD PATHOLOGY/CYTOLOGY ORDERABLES Performing Organization Address [facility] [place] [address] * Specimen to Pathology (10/06/2019 4:07 PM EST) AP Specimen 10/06/2019 4:07 PM EST 10/06/2019 4:07 PM EST Narrative [facility] - 10/06/2019 4:07 PM EST Specimen requisition ordered. ??Separate Pathology report to follow Juan Tran MD PATHOLOGY/CYTOLOGY ORDERABLES Performing Organization Address [facility] Co de Phone Number [facility] [place] [place] [address] * (ABNORMAL) BLOOD GAS 2 ARTERIAL (10/06/2019 3:51 PM EST) pH Art 7.43 7.35 - 7.45 [facility] pCO2 Art 37 35 - 45 mmHg [facility] pO2 Art 64(L) 85 - 104 mmHg [facility] HCO3 Art 23.8 20.0 - 26.0 mmol/L [facility] BE Art -0.5 -3.0 - 3.0 mmol/L [facility] Hgb Blood Gas 12.6 11.7 - 15.5 gm/dL [facility] O2HB Art 92.8(L) 94.0 - 97.0 % [facility] COHB Art 0.2 % [facility] Comment: Nonsmokers: 0.5-1.5% COHB Smokers: Variable, but usually less than 10% Toxic: 20-30% COHB Lethal: Greater than 60% COHB METHB Art 0.3 <=1.5 % [facility] Na Whole Blood 136 135 - 145 mmol/L [facility] K Whole Blood 3.4(L) 3.5 - 5.0 mmol/L [facility] Comment: Please note: Patients with WBC >100,000 may have falsely elevated Potassium levels. Contact the Clinical Chemistry Laboratory if there are any questions. ICa Whole Blood 1.17 1.15 - 1.33 mmol/L [facility] Comment: Note: ??Total bilirubin higher than 20 mg/dL may lead to falsely low ionized calcium. CL Whole Blood 102 98 - 107 mmol/L [facility] Gluc Whole Bld 122 65 - 199 mg/dL [facility] Comment:Diabetes: >=200 mg/d L plus symptoms. Lactate WB 2.0 0.5 - 2.2 mmol/L [facility] FIO2 Art 77 % [facility] PF Ratio Art 83 [facility] Blood specimen (specimen) 10/06/2019 3:51 PM EST 10/06/2019 3:51 PM EST Juan Tran MD CHEMISTRY ORDERABLE S Performing Organization Address City/[facility] Co de Phone Number [facility] [place] [address] * Specimen to Pathology (10/06/2019 3:49 PM EST) AP Specimen 10/06/2019 3:49 PM EST 10/06/2019 3:49 PM EST Narrative [facility] - 10/06/2019 3:49 PM EST Specimen requisition ordered. ??Separate Pathology report to follow Juan Tran MD PATHOLOGY/CYTOLOGY ORDERABLES Performing Organization Address City/[facility] Co de Phone Number [facility] [place] [place] [address] * Solid Tumor NGS Panel (10/06/2019 3:48 PM EST) Tissue specimen (specimen) 10/06/2019 3:48 PM EST 10/19/2019 1:05 PM EST Narrative Resulting Agency Comment Spec In Lab Juan Tran MD PATHOLOGY/CYTOLOGY ORDERABLES [facility] [place] [place] [address] * Surgical Pathology Report (10/06/2019 3:48 PM EST) FINAL DIAGNOSIS (AP) [id number] ? Location: 3T; 0326; A The signing pathologist has (i) examined the relevant preparation(s) for the specimen(s) and (ii) rendered or confirmed the diagnosis(es). . ? 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 <1% ?PD-L1 Negative ? >=1% ? PD-L1 Expression ? >=50% ?PD-L1 High Expression Immunohistochemical assay was performed on paraffin-embedded tissue sections fixed in 10% neutral buffered formalin for 6-72 hours using the polymer system technique with appropriate controls. The assay was performed according to the specification consultant's instructions using Anti-PD-L1 (22C3, pharmDX) antibody. Electronically signed by: ??Israel Leiva MD Verified: ??10/21/2019 ?Pathologist Performed at: ??-[facility] Dept. of Pathology, [place], [place] ?Surgical Pathology DIAGNOSIS A - Right lower lobe wedge, resection: Nodular fibrosis with surrounding mild chronic inflammation, negative for malignancy. B - Lung, right lower lobe posterior, wedge resection: Adenocarcinoma, predominantly acinar pattern with focal micropapillary growth, 1.6 cm (See SYNOPTIC REPORT). C - 12R lymph node, excision: Fragments of lymph node, negative for malignancy (0/1). D - 12R lymph node #2, excision: One lymph node, negative for malignancy (0/1). E - 8R lymph node, excision: Metastatic adenocarcinoma in one of two lymph nodes (1/2), present as isolated tumor cells (<0.1 mm). F - Level 7 lymph node, excision: Two lymph nodes, negative for malignancy (0/2). G - 12R lymph node posterior, excision: - Adenocarcinoma, present within lymphatics (see Comment). - One lymph node, negative for malignancy (0/1). . DIAGNOSIS Comment: Scattered tumor cells are present within a lymphatic channel adjacent to an uninvolved lymph node. H - 10R lymph node packet, excision: Two lymph nodes, negative for malignancy (0/2). I - 4R lymph node packet, excision: Three lymph nodes, negative for malignancy (0/3). J - Lung, right lower lobe, completion basilar segmentectomy: Pulmonary parenchyma, negative for malignancy. Synoptic Report Specimen Parts: ?? A - J Specimen ? Procedure: ??Wedge resection; ??Completion lobectomy ? Specimen Laterality: ?? Right Tumor ? Tumor Site: ??Lower lobe of lung - Posterior ? Histologic Type: ?? Invasive adenocarcinoma, acinar predominant with focal ?micropapillary pattern ? Tumor Size: ?? 1.6 cm ? Tumor Focality: ?? Single tumor ? Visceral Pleura Invasion: ?? Not identified ? Direct Invasion of Adjacent Structures: ?No adjacent structures present ? Treatment Effect: ?? No known presurgical therapy ? Lymphovascular Invasion: ?? Present Margins ? Margins: ??All margins are uninvolved by tumor ?Margins Examined: ?? Bronchial, Vascular, Parenchymal ?Distance of Invasive Carcinoma from Closest Margin (Centimeters): ? At ? least 3.3 cm ? Closest Margin: ?? Parenchymal Lymph Nodes ? Number of Lymph Nodes Involved: ?1 ? Connie Stations Involved: ?? 8R: ??1/2, isolated tumor cells ? Number of Lymph Nodes Examined: ?12 ? Connie Stations Examined: ?? 4R: ??0/3, 10R: ??0/2, 12R: ??0/3, 7: ??0/2 Pathologic Stage Classification (pTNM, AJCC 8th Edition) ? Primary Tumor (pT): ?? pT1b ? Regional Lymph Nodes (pN): ?? pN2 Additional Findings ? Additional Pathologic Findings: ?? Metaplasia (type) - squamous; ??Emphysema Tumor Block(s): ?? B1, B2 Normal Block(s): ?? A3 CAP eCC January 2019 Annual Release Electronically signed by: ??Nichol Soto MD Verified: ??10/15/2019 ?Pathologist Performed at: ??-[facility] Dept. of Pathology, [place], [place] ADDITIONAL STUDIES Immunohistochemistry Studies: Formalin-fixed, paraffin-embedded tissue sections are studied using the polymer technique with appropriate positive and negative controls. ?These IHC studies provide the pathologist with adjunctive diagnostic information. Antibody specificity has been verified by testing antibodies on a series of in-house tissues with known immunohistochemical performance characteristics. The clinical interpretation of any antibody positive staining or its absence is evaluated within the context of clinical presentation, morphology, histopathological criteria and other diagnostic tests. . ADDITIONAL STUDIES Block ? Antibody ?Result (Positive/Negative) A1 ?S100 ? Negative A1 ?Langerin ? Negative B2 ?TTF-1 ?Positive Multiple deeper levels were examined (E1, G1). PD-L1 immunohistochemistry and lung molecular panel are pending, and results will be reported subsequently. CLINICAL INFORMATION Specimen Submitted: A - Right lower lobe wedge for frozen section B - Right lower lobe wedge posterior for frozen section C - 12R lymph node in fissure D - 12R lymph node in fissure #2 E - 8R lymph node F - Level 7 G - 12R lymph node posterior H - 10R lymph node packet I - 4R lymph node packet J - Completion RLL basilar segmentectomy-stitch chen superior margin Clinical History and Diagnosis: Right lower lobe lung nodule SPECIMEN PROCESSING A - Labeled/Fixative: Right lower lobe wedge, fresh. Quantity/Size: ??Single, 8.5 x 6.0 x 2.0 cm. Tissue Description: Intact, wedge resection of lung. Pleural Surface: ??Smooth, red-purple. LESION ??Description: Nodule. ??Size: 0.3 x 0.3 x 0.2 cm. ??Color: [place]. ??Consistency: Firm. ??Location: Subpleural. ??Closest parenchymal margin: ??0.8 cm to staple line. Parenchyma: Spongy, red-brown. Sections/Processing: The following tissue is submitted for frozen section: The entire nodule. Customs Manager sections in 3 cassettes as follows: ?A1: ??Frozen section residue ?A2: ??Nearest staple line margin tissue ?A3: ??Additional normal parenchyma B - Labeled/Fixative: Right lower lobe wedge posterior, fresh. Quantity/Size: ??Single, 9.5 x 5.0 x 3.5 cm. Tissue Description: Intact, wedge resection of lung. Pleural Surface: ??Smooth, red-purple with a 15.0 cm staple line margin of resection and a central suture marking the nodule. LESION ??Description: Mass. ??Size: 1.6 x 1.0 x 1.0 cm. ??Color: De [place] Rosa. ??Consistency: Firm. ??Location: Subpleural, beneath suture. ??Closest parenchymal margin: ??0.5 cm to staple line. Parenchyma: Spongy red-brown. Sections/Processing: The following tissue is submitted for frozen section: Customs Manager section of the mass. . SPECIMEN PROCESSING Customs Manager sections in 4 cassettes as follows: ?B1: ??Frozen section residue ?B2: ??Additional lesion with adjacent normal parenchyma and additional overlying ? pleura ?B3: ??Nearest parenchymal staple line margin ?B4: ??Additional normal parenchyma C - Labeled/Fixative: 12 R lymph node in fissure, fresh. Quantity/Size: Two, 0.3 and 0.4 cm. Tissue Description: Brown-black lymph node tissue Sections/Processing: Submitted en toto ??in 1 cassette labeled C1. D - Labeled/Fixative: 12 R lymph node in fissure #2, fresh. Quantity/Size: Single, 1.0 x 0.8 x 0.3 cm. Tissue Description: Firm, de la rosa-brown lymph node Sections/Processing: Submitted en toto ??in 1 cassette labeled D1. E - Labeled/Fixative: 8R lymph node, fresh. Quantity/Size: Single, 1.5 x 1.0 x 0.6 cm. Tissue Description: Adipose tissue with two lymph nodes, up to 1.2 cm. Sections/Processing: Customs Manager sections in 1 cassettes as follows: ?E1: ??Two intact lymph nodes F - Labeled/Fixative: Level 7, fresh. Quantity/Size: Multiple, 2.0 x 1.0 x 0.6 cm. Tissue Description: Adipose tissue with two lymph nodes, up to 1.5 cm. Largest lymph node is partially fragmented Sections/Processing: Customs Manager sections in 2 cassettes as follows: ?F1: ??One fragmented lymph node ?F2: ??One lymph node, bisected G - Labeled/Fixative: 12 R lymph node posterior, fresh. Quantity/Size: Two, averaging 0.5 cm. Tissue Description: Soft, yellow-de la rosa lymphoid tissue Sections/Processing: Submitted en toto ??in 1 cassette labeled G1. H - Labeled/Fixative: 10 R lymph node packet, fresh. Quantity/Size: Single, 1.0 x 0.6 x 0.4 cm. Tissue Description: Adipose tissue with two lymph nodes, up to 0.5 cm. Sections/Processing: Customs Manager sections in 1 cassettes as follows: ?H1: ??Two intact lymph nodes I - Labeled/Fixative: 4R lymph node packet, fresh. Quantity/Size: Single, 3.0 x 2.0 x 1.2 cm. Tissue Description: Adipose tissue with three lymph nodes, up to 1.4 cm. Sections/Processing: Customs Manager sections in 3 cassettes as follows: ?I1: ??One node, bisected ?I2: ??One node, bisected ?I3: ??One node, trisected J - Labeled/Fixative: Completion RLL basilar segmentectomy-stitch chen superior margin, fresh. Qty/Size/Weight: ??Single, 11.5 x 4.8 x 2.8 cm, 74 g. SPECIMEN DESCRIPTION Resection Specimen: Intact, right, Completion basilar segmentectomy. . SPECIMEN PROCESSING Pleural Surface: ??Predominantly smooth, glistening and purple with several staple line margins measuring up to 10.0 cm. One of the staple lines displays a suture marking the superior margin. Parenchyma: Spongy, congested red-brown. Sections/Processing: Customs Manager sections in 3 cassettes as follows: ?J1: ??Bronchial and vascular margin ?J2: ??Tissue immediately beneath superior margin suture ?J3: ??Additional normal parenchyma ??ejr ?Frozen Section FROZEN SECTION DIAGNOSIS A - Right lower lobe wedge for frozen section - The nodule is fibro-inflammatory. 10/06/19 16:16 B - Right lower lobe wedge, posterior for frozen section - Adenocarcinoma. 10/06/19 16:34 Electronically signed by: ??Adeline Connors DO Verified: ??10/06/2019 ?Pathologist Performed at: ??-[facility] Dept. of Pathology, [place], [place] This intraoperative consultation should be interpreted as a preliminary diagnosis pending review of the entire specimen and special studies, if any. 10/21/2019 1:34 PM EST [facility] 10/06/2019 3:48 PM EST Juan Tran MD PATHOLOGY/CYTOLOGY ORDERABLES [facility] [place] [address] documented in this encounter Visit Diagnoses Diagnosis Lung nodule Solitary pulmonary nodule Lung nodule Solitary pulmonary nodule Lung nodule Solitary pulmonary nodule documented in this encounter Admitting Diagnoses Diagnosis Lung nodule Solitary pulmonary nodule documented in this encounter Administered Medications Inactive Administered Medications - up to 3 most recent administrations Medication Order MAR Action Action Date Dose Rate Site acetaminophen (TYLENOL) tablet 1,000 mg 1,000 mg, Oral, EVERY 6 HOURS SCHEDULED, First dose on Fri10/06/19 at 1915, Until Discontinued, Do not exceed 4,000 mg in 24 hours, Recovery (Recovery-Hospital Unit), Routine Given 10/08/2019 12:11 PM EST 1,000 mg Given 10/08/2019 6:13 AM EST 1,000 mg Given 10/07/2019 5:47 PM EST 1,000 mg albuterol (PROVENTIL) nebulizer solution 2.5 mg 2.5 mg, Nebulization, EVERY 6 HOURS, First dose on Fri10/06/19 at 2100, Until Discontinued, Routine Given 10/07/2019 2:40 AM EST 2.5 mg Given 10/06/2019 10:42 PM EST 2.5 mg amitriptyline (ELAVIL) tablet 100 mg 100 mg, Oral, NIGHTLY, First dose on Fri10/06/19 at 2100, Until Discontinued, Routine Given 10/07/2019 9:26 PM EST 100 mg Given 10/06/2019 10:41 PM EST 100 mg buPROPion (WELLBUTRIN) tablet 100 mg 100 mg, Oral, DAILY, First dose on Fri10/07/19 at 0900, Until Discontinued, Routine Given 10/08/2019 9:52 AM EST 100 mg Given 10/07/2019 9:35 AM EST 100 mg cloNIDine (CATAPRES) tablet 0.1 mg 0.1 mg, Oral, DAILY, First dose on Fri10/07/19 at 0900, Until Discontinued, Routine Given 10/08/2019 9:52 AM EST 0.1 mg Given 10/07/2019 9:35 AM EST 0.1 mg docusate sodium (COLACE) capsule 100 mg 100 mg, Oral, 3 TIMES DAILY, First dose on Fri10/06/19 at 2100, Until Discontinued, Routine Given 10/08/2019 9:52 AM EST 100 mg Given 10/07/2019 9:11 PM EST 100 mg Given 10/07/2019 1:45 PM EST 100 mg famotidine (PEPCID) tablet 40 mg 40 mg, Oral, DAILY, First dose on Fri10/07/19 at 0900, Until Discontinued Given 10/08/2019 9:51 AM EST 40 mg Given 10/07/2019 9:35 AM EST 40 mg heparin (Porcine) subcutaneous injection 5,000 Units 5,000 Units, Subcutaneous, ONCE, 1 dose, On Fri10/06/19 at 1200, Routine Given 10/06/2019 2:38 PM EST 5,000 Units Left Lower Quadrant heparin (Porcine) subcutaneous injection 5,000 Units 5,000 Units, Subcutaneous, EVERY 8 HOURS SCHEDULED, First dose on Fri10/06/19 at 2200, Until Discontinued, Routine Given 10/08/2019 6:15 AM EST 5,000 Units Given 10/07/2019 9:11 PM EST 5,000 Units Given 10/07/2019 1:45 PM EST 5,000 Units ipratropium (ATROVENT) 0.02 % nebulizer solution 0.5 mg 0.5 mg, Nebulization, EVERY 6 HOURS, First dose on Fri10/06/19 at 2100, Until Discontinued, Routine Given 10/07/2019 2:41 AM EST 0.5 mg Given 10/06/2019 10:43 PM EST 0.5 mg ipratropium-albuterol (DUONEB) 0.5 mg-3 mg(2.5 mg base)/3 mL nebulizer solution 3 mL 3 mL, Nebulization, EVERY 6 HOURS, First dose on Fri10/07/19 at 0845, Until Discontinued, Routine Given 10/08/2019 9:51 AM EST 3 mLs Given 10/07/2019 9:12 PM EST 3 mLs Given 10/07/2019 1:45 PM EST 3 mLs ketorolac (TORADOL) injection 15 mg 15 mg, Intravenous, EVERY 8 HOURS PRN, 6 doses, Starting on Fri10/06/19 at 1846, Until Fri10/07/19 at 0826, Pain, Recovery (Recovery-Hospital Unit), Routine Given 10/06/2019 7:14 PM EST 15 mg lactated Ringers 500 mL IV bolus Intravenous, ONCE, 1 dose, On Fri10/07/19 at 0100 New Bag 10/07/2019 12:46 AM EST lactated Ringers 500 mL IV bolus Intravenous, ONCE, 1 dose, On Fri10/07/19 at 0445 New Bag 10/07/2019 4:21 AM EST 500 mL/hr lactated ringers infusion 10 mL/hr, Intravenous, CONTINUOUS, Starting on Fri10/06/19 at 1915, Until Fri10/08/19 at 1640, Recovery (Recovery-Hospital Unit) New Bag 10/07/2019 6:38 AM EST 125 mL/hr 125 mL /hr Rate/Dose Change 10/07/2019 4:15 AM EST 125 mL/hr 125 mL/ hr New Bag 10/07/2019 1:47 AM EST 100 mL/hr 100 mL/hr levothyroxine (SYNTHROID) tablet 100 mcg 100 mcg, Oral, EVERY MORNING, First dose on Fri10/07/19 at 0600, Until Discontinued, Routine Given 10/08/2019 6:15 AM EST 100 mcg Given 10/07/2019 5:40 AM EST 100 mcg loratadine (CLARITIN) tablet 10 mg 10 mg, Oral, DAILY, First dose on Fri10/07/19 at 0900, Until Discontinued, Routine Given 10/08/2019 9:52 AM EST 10 mg metoprolol tartrate (LOPRESSOR) tablet 50 mg 50 mg, Oral, 2 TIMES DAILY, First dose on Fri10/06/19 at 2100, Until Discontinued, Routine Given 10/08/2019 9:52 AM EST 50 mg Given 10/07/2019 9:12 PM EST 50 mg Given 10/07/2019 9:37 AM EST 50 mg ondansetron (ZOFRAN) injection 4 mg 4 mg, Intravenous, EVERY 30 MIN PRN, Starting on Fri10/06/19 at 1807, Until Fri10/06/19 at 2123, Nausea, May repeat 4 mg once in 30 minutes. If multiple antiemetics ordered, use ondansetron first and if ineffective use prochlorperazine second and if ineffective use promethazine, PACU Recovery Given 10/06/2019 7:17 PM EST 4 mg oxyCODONE (ROXICODONE) immediate release tablet 5 mg 5 mg, Oral, EVERY 4 HOURS PRN, Starting on Fri10/06/19 at 1846, Until Fri10/08/19 at 1640, Pain, May repeat 5 mg in 60 minutes if pain not relieved., Recovery (Recovery-Hospital Unit), Routine Given 10/08/2019 10:11 AM EST 5 mg Given 10/08/2019 6:14 AM EST 5 mg Given 10/07/2019 2:48 PM EST 5 mg pantoprazole (PROTONIX) tablet 40 mg 40 mg, Oral, DAILY, First dose on Cheryl 10/07/19 at 0900, Until Discontinued, DO NOT CRUSH OR OPEN Given 10/08/2019 9:52 AM EST 40 mg Given 10/07/2019 9:37 AM EST 40 mg senna (SENOKOT) tablet 17.2 mg 17.2 mg, Oral, EVERY EVENING, First dose on Fri10/07/19 at 1700, Until Discontinued, Routine Given 10/07/2019 5:47 PM EST 17.2 mg sodium chloride 0.9 % (flush) flush 5 mL 5 mL, Intravenous, 2 TIMES DAILY, First dose on Fri10/06/19 at 2215, Until Discontinued, Recovery (Recovery-Hospital Unit), Routine Given 10/08/2019 9:57 AM EST 5 mLs Given 10/07/2019 9:26 PM EST 5 mLs Given 10/07/2019 9:35 AM EST 5 mLs documented in this encounter Active and Recently Administered Medications Times are shown in EST. Scheduled Medication Order 10/06/2019 10/07/2019 10/08/2019 acetaminophen (TYLENOL) tablet 1,000 mg 1,000 mg, Oral, EVERY 6 HOURS SCHEDULED, First dose on Fri10/06/19 at 1915, Until Discontinued, Do not exceed 4,000 mg in 24 hours, Recovery (Recovery-Hospital Unit), Routine 1913 (Given - Provider: Khadra Aquino RN)1705 (Given - Provider: Vini Lizama RN) 0540 (Given - Provider: Vini Lizama RN)1156 (Given - Provider: Malka Claire, VENU)1747 (Given - Provider: La Camejo RN) 0000 (Not Given - Provider: Shahnaz Pfeiffer RN - Reason: See comment - Comment: pt sleeping)0613 (Given - Provider: Shahnaz Pfeiffer, RN)1211 (Given - Provider: Chandan Wasserman RN) albuterol (PROVENTIL) nebulizer solution 2.5 mg (CANCELED) 2.5 mg, Nebulization, EVERY 6 HOURS, First dose on Fri10/06/19 at 2100, Until Discontinued, Routine 224 (Given - Provider: Vini Lizama RN) 0240 (Given - Provider: Vini Lizama RN) amitriptyline (ELAVIL) tablet 100 mg 100 mg, Oral, NIGHTLY, First dose on Fri10/06/19 at 2100, Until Discontinued, Routine 224 (Given - Provider: Vini Lizama RN) 2126 (Given - Provider: Shahnaz Pfeiffer RN) buPROPion (WELLBUTRIN) tablet 100 mg 100 mg, Oral, DAILY, First dose on Cheryl 10/07/19 at 0900, Until Discontinued, Routine 0935 (Given - Provider: Malka Claire RN) 0952 (Given - Provider: Chandan Wasserman RN) ceFAZolin (ANCEF) 2g in dextrose 5% 100 mL (COMPLETED) 2 g, Intravenous, EVERY 3 HOURS, 1 dose, First dose on Fri10/06/19 at 1215, Administer over 30 Minutes, Intra-Operative (Intra-Procedure), Indication for (Active or Suspected): Prophylaxis 1215 (Not Given - Provider: Harriet Rodriguez RN - Reason: See comment - Comment: duplicate order)1458 (Given - Provider: Eva Bhat CRNA)1758 (Given - Provider: Les Lewis CRNA) cloNIDine (CATAPRES) tablet 0.1 mg 0.1 mg, Oral, DAILY, First dose on Cheryl 10/07/19 at 0900, Until Discontinued, Routine 0935 (Given - Provider: Malka Claire RN) 0952 (Given - Provider: Chandan Wasserman, VENU) docusate sodium (COLACE) capsule 100 mg 100 mg, Oral, 3 TIMES DAILY, First dose on Fri10/06/19 at 2100, Until Discontinued, Routine 2243 (Given - Provider: Vini Lizama RN) 0935 (Given - Provider: Malka Claire, RN)1345 (Given - Provider: Malka Claire, VENU - Comment: patient request)1403 (Not Given - Provider: Malka Claire RN - Reason: See comment - Comment: see previous documentation)2110 (Given - Provider: Shahnaz Pfeiffer, VENU) 0952 (Given - Provider: Chandan Wasserman, VENU) famotidine (PEPCID) tablet 40 mg 40 mg, Oral, DAILY, First dose on Fri10/07/19 at 0900, Until Discontinued 0935 (Given - Provider: Malka Claire RN) 0951 (Given - Provider: Chandan Wasserman RN) heparin (Porcine) subcutaneous injection 5,000 Units (COMPLETED) 5,000 Units, Subcutaneous, ONCE, 1 dose, On Fri10/06/19 at 1200, Routine 1438 (Given - Provider: Patricia Shi RN) heparin (Porcine) subcutaneous injection 5,000 Units 5,000 Units, Subcutaneous, EVERY 8 HOURS SCHEDULED, First dose on Fri10/06/19 at 2200, Until Discontinued, Routine 2243 (Given - Provider: Vini Lizama RN) 0540 (Given - Provider: Vini Lizama RN)1345 (Given - Provider: Malka Claire RN)211 (Given - Provider: Shahnaz Pfeiffer RN) 0615 (Given - Provider: Shahnaz Pfeiffer, VENU)1400 (Due) ipratropium (ATROVENT) 0.02 % nebulizer solution 0.5 mg (CANCELED) 0.5 mg, Nebulization, EVERY 6 HOURS, First dose on Fri10/06/19 at 2100, Until Discontinued, Routine 2243 (Given - Provider: Vini Lizama RN) 0241 (Given - Provider: Vini Lizama RN) ipratropium-albuterol (DUONEB) 0.5 mg-3 mg(2.5 mg base)/3 mL nebulizer solution 3 mL 3 mL, Nebulization, EVERY 6 HOURS, First dose on Fri10/07/19 at 0845, Until Discontinued, Routine 0934 (Given - Provider: Malka Claire, VENU)1345 (Given - Provider: Malka Claire, RN)2112 (Given - Provider: Shahnaz Pfeiffer, RN) 0245 (Not Given - Provider: Shahnaz Pfeiffer, RN - Reason: Patient/family refused)0951 (Given - Provider: Chandan Wasserman RN) lactated Ringers 500 mL IV bolus (COMPLETED) Intravenous, ONCE, 1 dose, On Fri10/07/19 at 0100 0046 (New Bag - Provider: Vini Lizama, VENU) lactated Ringers 500 mL IV bolus (COMPLETED) Intravenous, ONCE, 1 dose, On Fri10/07/19 at 0445 0421 (New Bag - Provider: Vini Lizama, RN) levothyroxine (SYNTHROID) tablet 100 mcg 100 mcg, Oral, EVERY MORNING, First dose on Fri10/07/19 at 0600, Until Discontinued, Routine 0540 (Given - Provider: Vini Lizama RN) 0615 (Given - Provider: Shahnaz Pfeiffer, VENU) loratadine (CLARITIN) tablet 10 mg 10 mg, Oral, DAILY, First dose on Fri10/07/19 at 0900, Until Discontinued, Routine 0935 (Not Given - Provider: Malka Claire RN - Reason: Patient/family refused) 0952 (Given - Provider: Chandan Wasserman, VENU) metoprolol tartrate (LOPRESSOR) tablet 50 mg 50 mg, Oral, 2 TIMES DAILY, First dose on Fri10/06/19 at 2100, Until Discontinued, Routine 2244 (Given - Provider: Vini Lizama RN) 0937 (Given - Provider: Malka Claire, VENU)211 (Given - Provider: Shahnaz Pfeiffer, VENU) 0952 (Given - Provider: Chandan Wasserman RN) pantoprazole (PROTONIX) tablet 40 mg 40 mg, Oral, DAILY, First dose on Fri10/07/19 at 0900, Until Discontinued, DO NOT CRUSH OR OPEN 0937 (Given - Provider: Malka Claire, VENU) 0952 (Given - Provider: Chandan Wasserman, RN) senna (SENOKOT) tablet 17.2 mg 17.2 mg, Oral, EVERY EVENING, First dose on Cheryl 10/07/19 at 1700, Until Discontinued, Routine 1747 (Given - Provider: La Camejo, VENU) sodium chloride 0.9 % (flush) flush 5 mL 5 mL, Intravenous, 2 TIMES DAILY, First dose on Fri10/06/19 at 2215, Until Discontinued, Recovery (Recovery-Hospital Unit), Routine 2242 (Given - Provider: Vini Lizama, VENU) 0935 (Given - Provider: Malka Claire, RN)2126 (Given - Provider: Shahnaz Pfeiffer, VENU) 0957 (Given - Provider: Chandan Wasserman, RN) Continuous Medication Order 10/06/2019 10/07/2019 10/08/2019 lactated ringers infusion (CANCELED) 1,000 mL, at 100 mL/hr, Intravenous, CONTINUOUS, Starting on Fri10/06/19 at 1215, Until Fri10/06/19 at 2123, Day of Surgery (Day of Procedure) 1442 (New Bag - Provider: Eva Bhat CRNA)1537 (Anesthesia Volume Adjustment - Provider: Promise Pantoja) lactated ringers infusion 10 mL/hr, Intravenous, CONTINUOUS, Starting on Fri10/06/19 at 1915, Until Fri10/08/19 at 1640, Recovery (Recovery-Hospital Unit) 1952 (New Bag - Provider: Khadra Aquino RN) 0041 (Rate/Dose Change - Provider: Vini Lizama RN)0147 (New Bag - Provider: Vini Lizama RN)0415 (Rate/Dose Change - Provider: Vini Lizama RN)0638 (New Bag - Provider: Vini Lizama RN)0936 (Stopped - Provider: Malka Claire, VENU) 1229 (Stopped - Provider: Chandan Wasserman, RN) PRN Medication Order 10/06/2019 10/07/2019 10/08/2019 BUpivacaine (PF) (MARCAINE) 0.5 % (5 mg/mL) injection (CANCELED) ONCE PRN, Starting on Fri10/06/19 at 1534, Until Fri10/08/19 at 1640, Intra-Operative (Intra-Procedure), Routine 153 (Given - Provider: Juan Tran MD) ketorolac (TORADOL) injection 15 mg (CANCELED) 15 mg, Intravenous, EVERY 8 HOURS PRN, 6 doses, Starting on Fri10/06/19 at 1846, Until Cheryl 10/07/19 at 0826, Pain, Recovery (Recovery-Hospital Unit), Routine 1913 (Given - Provider: Khadra Aquino RN) lidocaine (XYLOCAINE) 10 mg/mL (1 %) injection 3 mg 3 mg (0.3 mL), Subcutaneous, ONCE PRN, 1 dose, Starting on Fri10/06/19 at 2154, Until Fri10/08/19 at 1640, for discomfort with PIV insertion, Recovery (Recovery-Hospital Unit), Routine ondansetron (ZOFRAN) injection 4 mg (CANCELED) 4 mg, Intravenous, EVERY 30 MIN PRN, Starting on Fri10/06/19 at 1807, Until Fri10/06/19 at 2123, Nausea, May repeat 4 mg once in 30 minutes. If multiple antiemetics ordered, use ondansetron first and if ineffective use prochlorperazine second and if ineffective use promethazine, PACU Recovery 1916 (Given - Provider: Khadra Aquino RN) ondansetron (ZOFRAN) injection 4 mg 4 mg, Intravenous, EVERY 8 HOURS PRN, Starting on Fri10/06/19 at 2154, Until Fri10/08/19 at 1640, Nausea oxyCODONE (ROXICODONE) immediate release tablet 5 mg 5 mg, Oral, EVERY 4 HOURS PRN, Starting on Fri10/06/19 at 1846, Until Fri10/08/19 at 1640, Pain, May repeat 5 mg in 60 minutes if pain not relieved., Recovery (Recovery-Hospital Unit), Routine 1913 (Given - Provider: Khadra Aquino RN) 0030 (Given - Provider: Vini Lizama RN)0935 (Given - Provider: Malka Claire, VENU)1448 (Given - Provider: Malka Claire, VENU) 0614 (Given - Provider: Shahnaz Pfeiffer RN)1011 (Given - Provider: Chandan Wasserman RN) sodium chloride 0.9 % (flush) flush 5-20 mL 5-20 mL, Intravenous, EVERY 1 MIN PRN, Starting on Fri10/06/19 at 2154, Until Fri10/08/19 at 1640, flush, Flush pertains to all indwelling lines. Flush per protocol found in the job aid using the link provided on this medication record., Recovery (Recovery-Hospital Unit), Routine documented in this encounter Care Teams Urologist Relationship Specialty Start Date End Date Kathy Wright, MARÍA PCP - General Family Medicine 04/22/19 documented as of this encounter
--- OUTSIDE RECORDS SUMMARY | 2024-06-24 01:11 | XMS_ITS | Encounter Summary ---
Author Organization [facility] Address [facility] [place] [address] Care Team Providers Care Luster Applicator Name Role Phone Kathy Wright MARÍA Primary Care Provider [phone] Reason for Referral * Consultation (Urgent) - Closed Specialty Diagnoses / Procedures Referred By Contac t Referred To Contact Radiation Oncology Diagnoses Nodule of lower lobe of right lung Primary adenocarcinoma of lower lobe of right lung Juan Ny MD [facility] [place] [address] Doyle Delvalle MD [address] [place] [address] [place] [address] Referral ID Status Reason Start Date Expiration Date V isits Requested Visits Authorized [id number] Closed Consult, Test & Treat 10/21/2019 10/20/2020 1 1 * Consultation (Urgent) - Closed Specialty Diagnoses / Procedures Referred By Contac t Referred To Contact Hematology and Oncology Diagnoses Nodule of lower lobe of right lung Primary adenocarcinoma of lower lobe of right lung Juan Ny MD [facility] [place] [address] [facility] [address] [place] [address] Referral ID Status Reason Start Date Expiration Date V isits Requested Visits Authorized [id number] Closed Consult, Test & Treat 10/21/2019 10/20/2020 1 1 Reason for Visit * Reason Comments Follow-up Encounter Details Date Type Department Care Team (Latest Contact Info) Description 10/21/2019 11:45 AM EST Office [place] [address] Juan Ny MD [facility] [place] [address] Nodule of lower lobe of right lung; Primary adenocarcinoma of lower lobe of right lung Social History Tobacco Use Types Packs/Day Years [...] Sign Reading Time Taken Comments Blood Pressure 128/78 10/21/2019 11:34 AM EST Pulse 87 10/21/2019 11:34 AM EST Temperature 36.6 ??C (97.9 ??F) 10/21/2019 11:[address] Respiratory Rate 18 10/21/2019 11:34 AM EST Oxygen Saturation 91% 10/21/2019 11:34 AM EST Inhaled Oxygen Concentration - - Weight 67.9 kg (149 lb 9.6 oz) 10/21/2019 11:34 AM EST Height 155 cm (5' 1.02) 10/21/2019 11:34 AM EST Body Mass Index 28.24 10/21/2019 11:34 AM EST documented in this encounter Patient Instructions * Patient Instructions* Anna Owen, RN - 10/21/2019 11:45 AM EST Thank you for visiting Dr. Ny in clinic 10/21/19 Dr. Ny has stated that you are now on an as needed basis with Thoracic Surgery. Please call Thoracic surgery at with any questions or concerns. documented in this encounter Progress Notes * Juan Ny MD - 10/21/2019 11:45 AM EST Thoracic Surgery Attending Outpatient Consultation Note Juan Ny MD [place] [id number] Today I saw Ms. Marleni Arreola in follow-up from her robotic right lower lobe basilar segmentectomy and mediastinal lymph node dissection for a lung carcinoma on 10/06/2019. She was discharged after anuneventful postoperative course on POD2. She is breathing comfortably and denies fevers. She is offpain medication. She does note that she gets slightly dizzy if she stands up to fast. She is drinking fluids but has not been eating that much as she doesn't have much of an appetite. She has no other complaints. On physical examination today, her height is 155 cm (5' 1.02) and weight is 67.9 kg (149 lb 9.6 oz). Her oral temperature is 36.6 ??C (97.9 ??F). Her blood pressure is 128/78 and her pulse is 87. Her respiration is 18 and oxygen saturation is 91%. Body mass index is 28.24 kg/m??. In general, she is in no acute distress. Her pupils are reactive. Her lungs are clear to auscultation bilaterally. Her heart has a regular rate with no murmurs. Her incisions are healing well with no erythema or drainage. Her abdomen is soft and nontender. Her extremities are warm with no edema. Neurologically, she is grossly intact. Today's chest x-ray shows postoperative changes with no acute infiltrates, masses nor concerning effusion. In summary, Ms. Marleni Arreola has made a good early recovery from her robotic right basilar segmentectomy and mediastinal lymph node dissection. I spoke to herat length regarding her pathology results which showed a 1.6cm lung adenocarcinoma, pT1bN2, stage IIIA. The N2 disease was noted incidentally on final pathology of the 8R (paraesophageal lymph node). This is in a transition zone between theparaesophageal lymph nodes and low subcarinal lymph nodes. We discussed the consensus recommendations of our multidisciplinary [facility] thoracic oncology tumor board for medical oncology and radiation oncology consultation. These referrals were placed today. We reviewed with her the recommended follow-u p imaging plan of a Chest CT with contrast for which she will return to see me in 4-6 months when she is finishing treatment. I instructed her to make sure she takes her time getting up to decrease the dizziness. I also advised her to drink plenty of liquids like water and gatorade. She is having a lot of tea currently. Shewas advised to make sure she is eating enough. She will notify my office in the interim if she has questions or concerns, and we will check on her by telephone early next week to make sure she is doing ok. Juan Ny MD 10/21/2019 documented in this encounter Plan of Treatment Scheduled Referrals Name Type Priority Associated Diagnoses Orde r Schedule Referral to Hematology and Oncology Outpatient Referral Routine Nodule of lower lobe of right lung Primary adenocarcinoma of lower lobe of right lung Ordered: 10/21/2019 Referral to Radiation Oncology Outpatient Referral Routine Nodule of lower lobe of right lung Primary adenocarcinoma of lower lobe of right lung Ordered: 10/21/2019 documented as of this encounter Visit Diagnoses Diagnosis Nodule of lower lobe of right lung Primary adenocarcinoma of lower lobe of right lung documented in this encounter Care Teams Luster Applicator Relationship Specialty Start Date End Date Kathy Wright APRN PCP - General Family Medicine 04/22/19 documented as of this encounter
--- OUTSIDE RECORDS SUMMARY | 2024-06-24 01:11 | XMS_ITS | Encounter Summary ---
Author Organization [facility] Address [facility] [place] [address] Care Team Providers Care Occ Therapy Asst Name Role Phone Kathy Wright ELECTRICAL RESEARCH ENGINEER Primary Care Provider [phone] Reason for Visit * Auth/Cert Specialty Diagnoses [...] Expiration Date Visits Re quested Visits Authorized [id number] 1 1 Encounter Details Date Type Department Care Team (Late st Contact Info) Description 10/06/2019 11:58 AM EST - 10/06/2019 3:27 PM EST Surgery [place] [address] Juan Tran MD [facility] [place] [address] @ROBOT XI THORACOSCOPY,SURGICAL, W\LOBECTOMY,TOTAL OR SEGMENTAL (WRVU 24.64) Social History Tobacco Use Types Packs/Day Years [...] Sign Reading Time Taken Comments Blood Pressure 150/69 10/06/2019 11:53 AM EST Pulse 73 10/06/2019 11:53 AM EST Temperature 36.1 ??C (97 ??F) 10/06/2019 11:53 AM EST Respiratory Rate 16 10/06/2019 11:39 AM EST Oxygen Saturation 93% 10/06/2019 11:53 AM EST Inhaled Oxygen Concentration - - [...] Primary * Pau Guerrero PA - Physician Spray Applicator * Tan Quigley MD - Resident Procedure: Procedure(s) with comments: @ROBOT XI THORACOSCOPY,SURG; W/DX WEDGE RESC W/ANATOMIC LUNG RESC (WRVU 3) - Bronchoscopy, robotic wedge, possible lobectomy/segmentectomy BRONCHOSCOPY, DIAGNOSTIC (WRVU 2.78) MODIFIER ROBOT,JONH XI NERVE BLOCK, INTERCOSTAL NERVE, MULTIPLE (WRVU 1.68) @ROBOT XI THORACOSCOPY,SURG; W/MEDIASTINAL& REGIONAL LYMPHADENECTOMY (WRVU 4.12) @ROBOT XI THORACOSCOPY,SURGICAL,W\LOBECTOMY,TOTAL OR SEGMENTAL (WRVU 24.64) Other Major Procedures: None History of Presentation: Today,??09/16/2019,??I??saw??Ms.??Arreola??in the Thoracic Surgery Clinic at [facility]??in consultation for a Right??lower lobe??lung nodule at your request.?Her??history was obtained from the patient. ??I have also reviewed her??medical records and imaging prior to today's visit. ??As you know, .??[facility]??is a 59 y.o.??female that in??May??2019 fell backward while opening a drawer, and she was alsohaving issues with abdominal pain around that time. A CT Abd/Pelvis??was performed 04/18/19??which revealed??colitis, acute burst fracture of L1, as well as 16 mm focal opacity of RLL. A dedicated CT Chest was performed??07/02/18??which demonstrated stable gsud-tk-mlik nodules in the RLL, largest measuring 9 [...] Hospital Course: Marleni Arreola was admitted to [facility] on 10/06/2019 via the Same Day Program. [...] you have questions. During normal business hours, Joshua- Friday 8:00 a.m.-5:00 p.m., please call to speak to a nurse in the Thoracic Clinic at [phone]. After hours or on weekends or holidays please call: [phone] and ask to speak to the Thoracic [...] the Thoracic Clinic or the Thoracic Surgeon fire and explosion investigator after hours. Please take over the [...] Expires XR Chest PA & Lateral (Generic) [[id number] Custom] 10/22/2019 (Approximate) 04/22/2020 Process Instructions: Scheduling Instructions: Questions: Where will study be performed?: [facility] Radiology Portable exam?: Reason for exam and clinical history: s/p basilar RLL segmenectomy Other pertinent information: Stat read required?: Date of injury if applicable: Requested Time: Provider Contact Information: Primary Care Provider: aKthy Wright, ELECTRICAL RESEARCH ENGINEER [phone] Discharge References/Attachments: Discharge References/Attachments None For questions regarding this document or issues relating to this hospitalization on the Thoracic Surgery Service, please contact Dr. Tran's office at . Signed: JOSE Salvador 10/08/2019 CC: PCP: Kathy Wrihgt APRN Referring: No referring provider defined for [...] a nurse in the Thoracic Clinic at [phone]. After hours or on weekends or holidays please call: [phone] and ask to speak to the Thoracic [...] the Thoracic Clinic or the Thoracic Surgeon fire and explosion investigator after hours. 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 * Tan Quigley MD - 10/07/2019 [...] [87 %-100 %] 10/06 701 - 10/07 700 In: 3771.3 [P.O.:730; I.V.:3041.3] Out: 605 [Urine:535] [...] - hemodynamically stable - UOP adequate * Kharda Aquino RN - 10/06/2019 6:43 PM EST 1828: Pt arrived to PACU10 from OR, vital signs stable, alarms audible and set appropriately, arterial line leveled and zeroed, urethral catheter draining clear yellow urine, R chest tube to water seal, nasal airway placed by VIGOUREUX PRINTER for airway obstruction, pt in no apparent distress, will continueto monitor 1844: nasal airway removed 1904: chest x-ray completed 1929: Dr. Tran at the bedside 2029: Pt [...] Chest was performed 07/02/18 which demonstrated stable giqe-zg-ofqe nodules in the RLL, largest measuring 9 [...] Quigley MD 10/06/2019 Thoracic Surgery Service Pager [phone] Associated attestation - Juan Tran MD - [...] Tran MD - 10/06/2019 6:54 PM EST [facility] Operative Note Patient Name: Marleni Arreola : [id number] MR#: [id number] Case Date: 10/06/2019 Surgeon: Surgeon(s) and Role: * Juan Tran MD - Primary * Pau Guerrero PA - Physician Spray Applicator * Jafferji, Mohammad S, MD - Resident Preoperative diagnosis: right lower lobe lung nodule Postoperative diagnosis: right lower lobe lung cancer Procedure(s) (LRB): @ROBOT XI THORACOSCOPY,SURG; W/DX WEDGE RESC W/ANATOMIC LUNG RESC (WRVU 3) (Right) BRONCHOSCOPY, DIAGNOSTIC (WRVU 2.78) (N/A) MODIFIER ROBOT,[employer] XI (N/A) NERVE BLOCK, INTERCOSTAL NERVE, MULTIPLE [...] Info Order Time SPECIMEN TO PATHOLOGY OR11 74249 right lower lobe lung nodule Right lower lobe wedge excision YES, Please perform frozen section 10/06/2019 3:49 PM Number of tissue samples (in container) 1 Time specimen removed from patient: 3:48 PM SPECIMEN TO PATHOLOGY OR11 70690 right lower lobe lung nodule Right lower lobe wedge posterior excision YES, Please perform frozen section 10/06/2019 4:06 PM Number of tissue samples (in container) 1 Time specimen removed from patient: 4:06 PM PATHOLOGY ORDER UPDATE 10/06/2019 4:13 PM Additional information: Additional Info Enter requested changes: stitch chen nodule eD-H Order Id number [id number] SPECIMEN TO PATHOLOGY [id number] right lower lobe lung nodule 12R lymph node in fissure excision 10/06/2019 4:15 PM Number of tissue samples (in container) 1 Time specimen removed from patient: 4:15 PM SPECIMEN TO PATHOLOGY right lower lobe lung nodule 12R lymph node in fissure #2 excision 10/06/2019 4:19 PM Number of tissue samples (in container) 1 Time specimen removed from patient: 4:19 PM SPECIMEN TO PATHOLOGY 61476 right lower lobe lung nodule 8R Lymph Node excision 10/06/2019 4:25 PM Number of tissue samples (in container) 1 Time specimen removed from patient: 4:25 PM SPECIMEN TO PATHOLOGY 16520 right lower lobe lung nodule level 7 excision 10/06/2019 4:27 PM Number of tissue samples (in container) 1 Time specimen removed from patient: 4:27 PM PATHOLOGY ORDER UPDATE 10/06/2019 4:31 PM Additional information: Additional Info Enter requested changes: level 7 lymph node packet eD-H Order Id number [id number] SPECIMEN TO PATHOLOGY [id number] right lower lobe lung nodule 12R lymph node posterior excision 10/06/2019 4:54 PM Number of tissue samples (in container) 1 Time specimen removed from patient: 4:54 PM SPECIMEN TO PATHOLOGY OR 11 39374 right lower lobe lung nodule 10R lymph node packet excision 10/06/2019 5:26 PM Time specimen removed from patient: 5:25 PM Number of tissue samples (in container) 1 SPECIMEN TO PATHOLOGY OR 11 11767 right lower lobe lung nodule 4R lymph node packet excision No 10/06/2019 5:29 PM Time specimen removed from patient: 5:29 PM Number of tissue samples (in container) 1 Biospecimen to store? No SPECIMEN TO PATHOLOGY OR 11 20409 right lower lobe lung nodule completion RLL [...] details pertinent to this patient.) HPI/Surgical Indications: .??Arreola??is a 59 y.o.??female??with a PET avid 13mm??RLL??lung [...] a standard fashion under direct vision. The Ne[employer] robot was brought onto the field and [...] patient removed from the field. A 28 Sami chest tube was placed through the initial [...] Operative Note Patient Name: Marleni Arreola : [id number] MR#: [id number] Case Date: 10/06/2019 Surgeon: Surgeon(s) and Role: * Juan Tran MD - Primary * Pau Guerrero PA - Physician Spray Applicator * Tan Quigley MD - Resident Preoperative [...] Info Order Time SPECIMEN TO PATHOLOGY OR11 [id number] right lower lobe lung nodule Right lower lobe wedge excision YES, Please perform frozen section 10/06/2019 3:49 PM Number of tissue samples (in container) 1 Time specimen removed from patient: 3:48 PM SPECIMEN TO PATHOLOGY OR11 73539 right lower lobe lung nodule Right lower lobe wedge posterior excision YES, Please perform frozen section 10/06/2019 4:06 PM Number of tissue samples (in container) 1 Time specimen removed from patient: 4:06 PM PATHOLOGY ORDER UPDATE 10/06/2019 4:13 PM Additional information: Additional Info Enter requested changes: stitch chen nodule eD-H Order Id number [id number] SPECIMEN TO PATHOLOGY 73844 right lower lobe lung nodule 12R lymph node in fissure excision 10/06/2019 4:15 PM Number of tissue samples (in container) 1 Time specimen removed from patient: 4:15 PM SPECIMEN TO PATHOLOGY right lower lobe lung nodule 12R lymph node in fissure #2 excision 10/06/2019 4:19 PM Number of tissue samples (in container) 1 Time specimen removed from patient: 4:19 PM SPECIMEN TO PATHOLOGY 62540 right lower lobe lung nodule 8R Lymph Node excision 10/06/2019 4:25 PM Number of tissue samples (in container) 1 Time specimen removed from patient: 4:25 PM SPECIMEN TO PATHOLOGY 14331 right lower lobe lung nodule level 7 excision 10/06/2019 4:27 PM Number of tissue samples (in container) 1 Time specimen removed from patient: 4:27 PM PATHOLOGY ORDER UPDATE 10/06/2019 4:31 PM Additional information: Additional Info Enter requested changes: level 7 lymph node packet eD-H Order Id number [id number] SPECIMEN TO PATHOLOGY 99992 right lower lobe lung nodule 12R lymph node posterior excision 10/06/2019 4:54 PM Number of tissue samples (in container) 1 Time specimen removed from patient: 4:54 PM SPECIMEN TO PATHOLOGY OR 11 26324 right lower lobe lung nodule 10R lymph node packet excision 10/06/2019 5:26 PM Time specimen removed from patient: 5:25 PM Number of tissue samples (in container) 1 SPECIMEN TO PATHOLOGY OR 11 13254 right lower lobe lung nodule 4R lymph node packet excision No 10/06/2019 5:29 PM Time specimen removed from patient: 5:29 PM Number of tissue samples (in container) 1 Biospecimen to store? No SPECIMEN TO PATHOLOGY OR 11 25114 right lower lobe lung nodule completion RLL [...] 10/06/2019 3:48 PM EST Thoracoscopy Surg Lobectomy (88178) 10/06/2019 2:49 PM EST Lung nodule Thoracoscopy With Mediastinal And Regional Lymphadenectomy 10/06/2019 2:49 PM EST Lung nodule Injection Anes Agent &/ Steroid Intercostal Nerve Ea Addl Level (24376) 10/06/2019 2:49 PM EST Lung nodule MODIFIER ROBOT,DAVINCI XI 10/06/2019 2:49 PM EST Lung nodule Bronchoscopy, Diagnostic (24298) 10/06/2019 2:49 PM EST Lung nodule Thoracoscopy [...] below. ? Electronically signed by: Savanna Callejas [facility] ([phone]), at 10/21/2019 10:55 AM Narrative 10/21/2019 10:55 [...] number below. Electronically signed by: Savanna Callejas [facility]([phone]), at 10/21/2019 10:55 AM Juan Tran MD IMG DX ORDERABLES * [...] the number below. ? Electronically signed by: Jyotsna Bullock [facility] ([phone]), at 10/07/2019 4:39 PM Narrative 10/07/2019 4:39 PM EST EXAMINATION: XR [...] contact the number below. Electronically signed by: Jyotsna Bullock [facility]([phone]), at 10/07/2019 4:39 PM Juan Tran MD IMG DX ORDERABLES * [...] the number below. ? Electronically signed by: Jyotsna Bullock [facility] ([phone]), at 10/07/2019 2:36 PM Narrative 10/07/2019 2:36 PM EST EXAMINATION: XR [...] contact the number below. Electronically signed by: Jyotsna Bullock [facility]([phone]), at 10/07/2019 2:36 PM Juan Tran MD IMG DX ORDERABLES * (ABNORMAL) Differential, Automated (10/07/2019 7:26 AM EST) Neutrophils % 85.1 % [facility] Neutr Abs (ANC) 10.38(H) 1.70 - 6.10 x10(3)/[facility] Lymphocytes % 10.2 % [facility] Lymphocytes Abs 1.2 0.9 - 3.2 x10(3)/[facility] Monocytes % 4.3 % [facility] Monocyte Abs 0.5 0.3 - 0.9 x10(3)/[facility] Eosinophils % 0.0 % [facility] Eosinophils Abs 0.0 0.0 - 0.4 x10(3)/[facility] Basophils % 0.2 % [facility] Basophils Abs 0.0 0.0 - 0.1 x10(3)/[facility] Immature Gran % 0.20 % [facility] Comment: Immature granulocytes(IG's)percentage and absolute count will include metamyelocytes, myelocytes, and promyelocytes. Blood smears from CBCs yielding IG's will be scanned manually for concordance. If this scan disagrees with the automated IG or if promyelocytes are noted, a manual differential will be performed. Wilma Gran Abs 0.03 0.00 - 0.04 x10(3)/[facility] Blood specimen (specimen) 10/07/2019 7:26 AM EST 10/07/2019 7:31 AM EST Narrative Resulting Agency Comment Spec In Lab Robert You MD HEMATOLOGY ORDERABLE S [facility] [place] [address] * (ABNORMAL) Hemogram (10/07/2019 7:26 AM EST) Pathologist [facility] WBC 12.2(H) 4.0 - 9.5 x10(3)/[facility] RBC 3.47(L) 4.00 - 5.21 x10(6)/[facility] Hemoglobin 10.5(L) 11.7 - 15.5 gm/dL [facility] Hematocrit 31.3(L) 35.7 - 45.8 % [facility] MCV 90.2 82.6 - 94.4 [facility] MCH 30.3 27.1 - 32.0 pg [facility] MCHC 33.5 31.7 - 35.0 gm/dL [facility] Platelets 187 145 - 357 x10(3)/[facility] RDWSD 42.7 37.0 - 46.0 [facility] RDWCV 13.0 11.5 - 14.1 % [facility] MPV 10.3 7.6 - 12.9 [facility] nRBC % Auto 0.0 % [facility] nRBC Abs Auto 0.000 0.000 - 0.000 x10(3)/[facility] Blood specimen (specimen) 10/07/2019 7:26 AM EST 10/07/2019 7:31 AM EST Narrative Resulting Agency Comment Spec In Lab Robert You MD HEMATOLOGY ORDERABLE S [facility] [place] [address] * (ABNORMAL) Basic Metabolic Panel (non-fasting) (10/07/2019 7:26 AM EST) Glucose Lvl 145 65 - 199 mg/dL [facility] Comment:Diabetes: >=200 mg/d L plus symptoms BUN 18 8 - 18 mg/dL [facility] Creatinine 1.08 0.70 - 1.20 mg/dL [facility] Sodium 130(L) 135 - 145 mmol/L [facility] Potassium 4.0 3.5 - 5.0 mmol/L [facility] Comment: Please note: ??Patients with WBC >100,000 may have falsely elevated Potassium levels. ??For accurate Potassium quantification in these patients send serum separator tube (gold top) for subsequent determinations. ??Contact the Clinical Chemistry Laboratory if there are any questions. Chloride 94(L) 98 - 107 mmol/L [facility] CO2 21(L) 22 - 31 mmol/L [facility] Anion Gap 15 5 - 15 mmol/L [facility] Calcium 8.2(L) 8.5 - 10.5 mg/dL [facility] Estimated GFR 56(L) >=60 mL/min/1. 73 m?? [facility] Comment: The eGFR was calculated using the CKD-EPI equation. As with all creatinine based estimates of kidney function, eGFR values calculated with the CKD-EPI equation are not accurate in patients with acute kidney failure, extremes of body mass or the acutely ill. [email or web address]nkf eGFR 65 >=60 mL/min/1. 73 m?? [facility] Comment: The eGFR was calculated using the CKD-EPI equation. As with all creatinine based estimates of kidney function, eGFR values calculated with the CKD-EPI equation are not accurate in patients with acute kidney failure, extremes of body mass or the acutely ill. [email or web address] Blood specimen (specimen) 10/07/2019 7:26 AM EST 10/07/2019 7:31 AM EST Narrative Resulting Agency Comment Spec In Lab Juan Tran MD CHEMISTRY ORDERABLE S [facility] [place] [address] * XR Chest PA & Lateral (Generic) [...] the number below. ? Electronically signed by: Tracee Leavitt [facility] ([phone]), at 10/07/2019 4:23 AM Narrative 10/07/2019 4:23 AM EST EXAMINATION: XR [...] PM EST 10/06/2019 6:00 PM EST Narrative [facility] - 10/06/2019 6:00 PM EST Specimen requisition ordered. ??Separate Pathology report to follow Resulting Agency Comment Spec In Lab Juan Tran MD PATHOLOGY/CYTOLOGY ORDERABLES Performing Organization Address City/[facility]/ZIP Co de Phone Number [place] [phone] * Specimen to Pathology (10/06/2019 5:29 PM EST) AP Specimen 10/06/2019 5:29 PM EST 10/06/2019 6:00 PM EST Narrative [facility] - 10/06/2019 6:00 PM EST Specimen requisition ordered. ??Separate Pathology report to follow Resulting Agency Comment Spec In Lab Juan Tran MD PATHOLOGY/CYTOLOGY ORDERABLES Performing Organization Address City/[facility]/[place] [address] * Specimen to Pathology (10/06/2019 5:26 PM EST) AP Specimen 10/06/2019 5:26 PM EST 10/06/2019 6:00 PM EST Narrative [facility] - 10/06/2019 6:00 PM EST Specimen requisition ordered. ??Separate Pathology report to follow Resulting Agency Comment Spec In Lab Authorizing Provider Result Amadou Tran MD PATHOLOGY/CYTOLOGY ORDERABLES Performing Organization Address City/[facility]/ZIP Co de Phone Number [facility] [place] [address] * Specimen to Pathology (10/06/2019 4:54 PM EST) AP Specimen 10/06/2019 4:54 PM EST 10/06/2019 6:00 PM EST Narrative [facility] - 10/06/2019 6:00 PM EST Specimen requisition ordered. ??Separate Pathology report to follow Resulting Agency Comment Spec In Lab Juan Tran MD PATHOLOGY/CYTOLOGY ORDERABLES Performing Organization Address City/[facility]/[place] [address] * Specimen to Pathology (10/06/2019 4:27 PM EST) AP Specimen 10/06/2019 4:27 PM EST 10/06/2019 6:00 PM EST Narrative [facility] - 10/06/2019 6:00 PM EST Specimen requisition ordered. ??Separate Pathology report to follow Resulting Agency Comment Spec In Lab Juan Tran MD PATHOLOGY/CYTOLOGY ORDERABLES Performing Organization Address City/[facility]/[place] [address] * Specimen to Pathology (10/06/2019 4:25 PM EST) AP Specimen 10/06/2019 4:25 PM EST 10/06/2019 6:00 PM EST Narrative [facility] - 10/06/2019 6:00 PM EST Specimen requisition ordered. ??Separate Pathology report to follow Resulting Agency Comment Spec In Lab Juan Tran MD PATHOLOGY/CYTOLOGY ORDERABLES Performing Organization Address City/[facility]/ZIP Co de Phone Number [facility] [place] [address] * Specimen to Pathology (10/06/2019 4:20 PM EST) AP Specimen 10/06/2019 4:20 PM EST 10/06/2019 6:00 PM EST Narrative [facility] - 10/06/2019 6:00 PM EST Specimen requisition ordered. ??Separate Pathology report to follow Resulting Agency Comment Spec In Lab Juan Tran MD PATHOLOGY/CYTOLOGY ORDERABLES Performing Organization Address City/[facility]/ZIP Co de Phone Number [facility] [place] [address] * Specimen to Pathology (10/06/2019 4:15 PM EST) AP Specimen 10/06/2019 4:15 PM EST 10/06/2019 6:00 PM EST Narrative [facility] - 10/06/2019 6:00 PM EST Specimen requisition ordered. ??Separate Pathology report to follow Resulting Agency Comment Spec In Lab Juan Tran MD PATHOLOGY/CYTOLOGY ORDERABLES Performing Organization Address [facility] Co de Phone Number [facility] [place] [address] * Specimen to Pathology (10/06/2019 4:07 PM EST) AP Specimen 10/06/2019 4:07 PM EST 10/06/2019 4:07 PM EST Narrative [facility] - 10/06/2019 4:07 PM EST Specimen requisition ordered. ??Separate Pathology report to follow Authorizing Provider Result Amadou Tran MD PATHOLOGY/CYTOLOGY ORDERABLES Performing Organization Address [facility] Co de Phone Number [facility] [place] [address] * (ABNORMAL) BLOOD GAS 2 ARTERIAL (10/06/2019 3:51 PM EST) pH Art 7.43 7.35 - 7.45 [facility] pCO2 Art 37 35 - 45 mmHg [facility] pO2 Art 64(L) 85 - 104 mmHg [facility] HCO3 Art 23.8 20.0 - 26.0 mmol/L [facility] BE Art -0.5 -3.0 - 3.0 mmol/L [facility] Hgb Blood Gas 12.6 11.7 - 15.5 gm/dL [facility] O2HB Art 92.8(L) 94.0 - 97.0 % [facility] COHB Art 0.2 % [facility] Comment: Nonsmokers: 0.5-1.5% COHB Smokers: Variable, but usually less than 10% Toxic: 20-30% COHB Lethal: Greater than 60% COHB METHB Art 0.3 <=1.5 % [facility] Na Whole Blood 136 135 - 145 mmol/L [facility] K Whole Blood 3.4(L) 3.5 - 5.0 mmol/L [facility] Comment: Please note: Patients with WBC >100,000 may have falsely elevated Potassium levels. Contact the Clinical Chemistry Laboratory if there are any questions. ICa Whole Blood 1.17 1.15 - 1.33 mmol/L [facility] Comment: Note: ??Total bilirubin higher than 20 mg/dL may lead to falsely low ionized calcium. CL Whole Blood 102 98 - 107 mmol/L [facility] Gluc Whole Bld 122 65 - 199 mg/dL [facility] Comment:Diabetes: >=200 mg/d L plus symptoms. Lactate WB 2.0 0.5 - 2.2 mmol/L [facility] FIO2 Art 77 % [facility] PF Ratio Art [address] [facility] Blood specimen (specimen) 10/06/2019 3:51 PM EST 10/06/2019 3:51 PM EST Juan Tran MD CHEMISTRY ORDERABLE S Performing Organization Address City/[facility]/ZIP Co de Phone Number [facility] [place] [address] * Specimen to Pathology (10/06/2019 3:49 PM EST) AP Specimen 10/06/2019 3:49 PM EST 10/06/2019 3:49 PM EST Narrative [facility] - 10/06/2019 3:49 PM EST Specimen requisition ordered. ??Separate Pathology report to follow Juan Tran MD PATHOLOGY/CYTOLOGY ORDERABLES [facility] [place] [address] * Solid Tumor NGS Panel (10/06/2019 3:48 PM EST) Tissue specimen (specimen) 10/06/2019 3:48 PM EST 10/19/2019 1:05 PM EST Narrative Resulting Agency Comment Spec In Lab Juan Tran MD PATHOLOGY/CYTOLOGY ORDERABLES Performing Organization Address City/State/[facility] Co de Phone Number [facility] [place] [address] * Surgical Pathology Report (10/06/2019 3:48 PM EST) FINAL DIAGNOSIS (AP) [id number] ? [facility]; The signing pathologist has (i) examined the [...] The assay was performed according to the screenplay writer's instructions using Anti-PD-L1 (22C3, pharmDX) antibody. Electronically signed by: ??Israel Leiva MD Verified: ??10/21/2019 ?Pathologist Performed at: ??-[facility] [facility] Dept. of Pathology, [place], [place] ?Surgical Pathology DIAGNOSIS A - Right [...] Soto MD Verified: ??10/15/2019 ?Pathologist Performed at: ??[facility] Dept. of Pathology, [place], [place] ADDITIONAL STUDIES Immunohistochemistry Studies: Formalin-fixed, paraffin-embedded [...] submitted for frozen section: The entire nodule. Code Machine Operator sections in 3 cassettes as follows: ?A1: [...] following tissue is submitted for frozen section: Code Machine Operator section of the mass. . SPECIMEN PROCESSING Code Machine Operator sections in 4 cassettes as follows: ?B1: [...] lymph nodes, up to 1.2 cm. Sections/Processing: Code Machine Operator sections in 1 cassettes as follows: ?E1: ??Two intact lymph nodes F - Labeled/Fixative: Level 7, fresh. Quantity/Size: Multiple, 2.0 x 1.0 x 0.6 cm. Tissue Description: Adipose tissue with two lymph nodes, up to 1.5 cm. Largest lymph node is partially fragmented Sections/Processing: Code Machine Operator sections in 2 cassettes as follows: ?F1: ??One fragmented lymph node ?F2: ??One lymph node, bisected G - Labeled/Fixative: 12 R lymph node posterior, fresh. Quantity/Size: Two, averaging 0.5 cm. Tissue Description: Soft, yellow-de la roas lymphoid tissue Sections/Processing: Submitted en toto ??in 1 cassette labeled G1. H - Labeled/Fixative: 10 R lymph node packet, fresh. Quantity/Size: Single, 1.0 x 0.6 x 0.4 cm. Tissue Description: Adipose tissue with two lymph nodes, up to 0.5 cm. Sections/Processing: Code Machine Operator sections in 1 cassettes as follows: ?H1: ??Two intact lymph nodes I - Labeled/Fixative: 4R lymph node packet, fresh. Quantity/Size: Single, 3.0 x 2.0 x 1.2 cm. Tissue Description: Adipose tissue with three lymph nodes, up to 1.4 cm. Sections/Processing: Code Machine Operator sections in 3 cassettes as follows: ?I1: [...] superior margin. Parenchyma: Spongy, congested red-brown. Sections/Processing: Code Machine Operator sections in 3 cassettes as follows: ?J1: [...] Connors DO Verified: ??10/06/2019 ?Pathologist Performed at: [facility] Dept. of Pathology, [place], [place] This intraoperative consultation should be interpreted as a preliminary diagnosis pending review of the entire specimen and special studies, if any. 10/21/2019 1:34 PM EST [facility] 10/06/2019 3:48 PM EST Juan Tran MD PATHOLOGY/CYTOLOGY ORDERABLES [facility] [place] [address] documented in this encounter Visit Diagnoses Diagnosis [...] Given 10/07/2019 5:47 PM EST 1,000 mg amitriptyline (ELAVIL) tablet 100 mg 100 mg, Oral, NIGHTLY, First dose on Fri10/06/19 at 2100, Until Discontinued, Routine Given 10/07/2019 9:26 PM EST 100 mg Given 10/06/2019 10:41 PM EST 100 mg BUpivacaine (PF) (MARCAINE) 0.5 % (5 mg/mL) injection ONCE PRN, Starting on Fri10/06/19 at 1534, Until Fri10/08/19 at 1640, Intra-Operative (Intra-Procedure), Routine Given 10/06/2019 3:34 PM EST 24 mLs 19- Surgical Site buPROPion (WELLBUTRIN) tablet 100 mg 100 mg, Oral, DAILY, First dose on Cheryl 10/07/19 at 0900, Until Discontinued, Routine Given 10/08/2019 [...] Routine Given 10/08/2019 6:15 AM EST 5,000 Unit s Given 10/07/2019 9:11 PM EST 5,000 Units Given 10/07/2019 1:45 PM EST 5,000 Units ipratropium-albuterol (DUONEB) 0.5 mg-3 mg(2.5 mg base)/3 mL nebulizer solution 3 mL 3 mL, Nebulization, EVERY 6 HOURS, First dose on Fri10/07/19 at 0845, Until Discontinued, Routine Given 10/08/2019 9:51 AM EST 3 mLs Given 10/07/2019 9:12 PM EST 3 mLs Given 10/07/2019 1:45 PM EST 3 mLs lactated ringers infusion 10 mL/hr, Intravenous, CONTINUOUS, [...] Given 10/07/2019 9:37 AM EST 50 mg oxyCODONE (ROXICODONE) immediate release tablet 5 [...] in 24 hours, Recovery (Recovery-Hospital Unit), Routine 1914 (Given - Provider: Khadra Aquino RN)2327 (Given - Provider: Vini Lizama RN) 0540 (Given - Provider: Vini Lizama, VENU)1156 (Given - Provider: Malka Claire, VENU)1747 (Given - Provider: aL Camejo RN) 0000 (Not Given - Provider: Shahnaz Pfeiffer RN - Reason: See comment - Comment: pt sleeping)0613 (Given - Provider: Shahnaz Pfeiffer, VENU)1211 (Given - Provider: Chandan Wasserman, VENU) albuterol (PROVENTIL) nebulizer solution 2.5 mg (CANCELED) 2.5 mg, Nebulization, EVERY 6 HOURS, First dose on Fri10/06/19 at 2100, Until Discontinued, Routine 2242 (Given - Provider: Vini Lizama RN) 0240 (Given - Provider: iVni Lizama, VENU) amitriptyline (ELAVIL) tablet 100 mg 100 mg, Oral, NIGHTLY, First dose on Fri10/06/19 at 2100, Until Discontinued, Routine 224 (Given - Provider: Vini Lizama RN) 2126 (Given - Provider: Shahnaz Pfeiffer, VENU) buPROPion (WELLBUTRIN) tablet 100 mg 100 mg, Oral, DAILY, First dose on Cheryl 10/07/19 at 0900, Until Discontinued, Routine 0935 (Given - Provider: Malka Claire, VENU) 0952 (Given - Provider: Chandan Wasserman, VENU) ceFAZolin (ANCEF) 2g in dextrose 5% 100 [...] Fri10/07/19 at 0900, Until Discontinued, Routine 0935 (Given - Provider: Malka Claire RN) 0952 (Given - Provider: Chandan Wasserman, VENU) docusate sodium (COLACE) capsule 100 mg 100 mg, Oral, 3 TIMES DAILY, First dose on Fri10/06/19 at 2100, Until Discontinued, Routine 2243 (Given - Provider: Vini Lizama RN) 0935 (Given - Provider: Malka Claire, VENU)1345 (Given - Provider: Malka Claire RN - Comment: patient request)1403 (Not Given - Provider: Malka Claire RN - Reason: See comment - Comment: see previous documentation)2111 (Given - Provider: Shahnaz Pfeiffer, VENU) 0952 (Given - Provider: Chandan Wasserman, VENU) famotidine (PEPCID) tablet 40 mg 40 mg, Oral, DAILY, First dose on Cheryl 10/07/19 at 0900, Until Discontinued 0935 (Given - Provider: Malka Claire, VENU) 0951 (Given - Provider: Chandan Wasserman, VENU) heparin (Porcine) subcutaneous injection 5,000 Units (COMPLETED) 5,000 Units, Subcutaneous, ONCE, 1 dose, On Fri10/06/19 at 1200, Routine 1438 (Given - Provider: Patricia Shi, VENU) heparin (Porcine) subcutaneous injection 5,000 Units 5,000 Units, Subcutaneous, EVERY 8 HOURS SCHEDULED, First dose on Fri10/06/19 at 2200, Until Discontinued, Routine 2243 (Given - Provider: Vini Lizama RN) 0540 (Given - Provider: Vini Lizama, VENU)1345 (Given - Provider: Malka Claire, VENU)2111 (Given - Provider: Shahnaz Pfeiffer RN) 0615 (Given - Provider: Shahnaz Pfeiffer RN)1400 (Due) ipratropium (ATROVENT) 0.02 % nebulizer solution [...] Discontinued, Routine 0934 (Given - Provider: Malka Claire RN)1345 (Given - Provider: Malka Claire, RN)2112 (Given - Provider: Shahnaz Pfeiffer RN) 0245 (Not Given - Provider: Shahnaz Pfeiffer RN - Reason: Patient/family refused)0951 (Given - Provider: Chandan Wasserman RN) lactated Ringers 500 mL IV bolus (COMPLETED) Intravenous, ONCE, 1 dose, On Fri10/07/19 at 0100 0046 (New Bag - Provider: Vini Lizama RN) lactated Ringers 500 mL IV bolus (COMPLETED) Intravenous, ONCE, 1 dose, On Fri10/07/19 at 0445 0421 (New Bag - Provider: Vini Lizama RN) levothyroxine (SYNTHROID) tablet 100 mcg 100 mcg, Oral, EVERY MORNING, First dose on Fri10/07/19 at 0600, Until Discontinued, Routine 0540 (Given - Provider: Viin Lizama RN) 0615 (Given - Provider: Shahnaz Pfeiffer RN) loratadine (CLARITIN) tablet 10 mg 10 mg, Oral, DAILY, First dose on Fri10/07/19 at 0900, Until Discontinued, Routine 0935 (Not Given - Provider: Malka Claire RN - Reason: Patient/family refused) 0952 (Given - Provider: Chandan Wasserman RN) metoprolol tartrate (LOPRESSOR) tablet 50 mg 50 mg, Oral, 2 TIMES DAILY, First dose on Fri10/06/19 at 2100, Until Discontinued, Routine 2244 (Given - Provider: Vini Lizama, VENU) 0937 (Given - Provider: Malka Claire, VENU)2111 (Given - Provider: Shahnaz Pfeiffer, RN) 0952 (Given - Provider: Chandan Wasserman, RN) pantoprazole (PROTONIX) tablet 40 mg 40 mg, Oral, DAILY, First dose on Cheryl 10/07/19 at 0900, Until Discontinued, DO NOT CRUSH OR OPEN 0937 (Given - Provider: Malka Claire, RN) 0952 (Given - Provider: Chandan Wasserman, RN) senna (SENOKOT) tablet 17.2 mg 17.2 mg, Oral, EVERY EVENING, First dose on Fri10/07/19 at 1700, Until Discontinued, Routine 1747 (Given - Provider: La Camejo RN) sodium chloride 0.9 % (flush) flush 5 mL 5 mL, Intravenous, 2 TIMES DAILY, First dose on Fri10/06/19 at 2215, Until Discontinued, Recovery (Recovery-Hospital Unit), Routine 2242 (Given - Provider: Vini Lizama RN) 0935 (Given - Provider: Malka Claire, VENU)2125 (Given - Provider: Shahnaz Pfeiffer, VENU) 0957 [...] Lizama RN)0147 (New Bag - Provider: Vini Lizaam, VENU)0415 (Rate/Dose Change - Provider: Vini Lizama RN)0638 [...] pain not relieved., Recovery (Recovery-Hospital Unit), Routine 191 (Given - Provider: Khadra Aquino, RN) 0030 (Given - Provider: Vini Lizama, RN)0935 (Given - Provider: Malka Claire, RN)1448 (Given - Provider: Malka Claire, RN) 0614 (Given - Provider: Shahnaz Pfeiffer, VENU)1011 (Given - Provider: Chandan Wasserman RN) sodium chloride 0.9 % (flush) flush 5-20 mL 5-20 mL, Intravenous, EVERY 1 MIN PRN, Starting on Fri10/06/19 at 2154, Until Fri10/08/19 at 1640, flush, Flush pertains to all indwelling lines. Flush per protocol found in the job aid using the link provided on this medication record., Recovery (Recovery-Hospital Unit), Routine documented in this encounter Care Teams Occ Therapy Asst Relationship Specialty Start Date End Date Kathy Wright APRN PCP - General Family Medicine 04/22/19 documented as of this encounter
--- OUTSIDE RECORDS SUMMARY | 2024-06-24 01:12 | XMS_ITS | Encounter Summary ---
[place] [address] Care Team Providers Care Systems Coordinator Name Role Phone Nimo Nair Primary Care Provider + Encounter Details Date Type Department Care Team (Late st Contact Info) Description 04/18/2019 12:50 PM EDT Ancillary Procedure [place] [address] Chuck Velazco MD [facility] [place] [address] Social History Tobacco Use Types Packs/Day Years [...] Diagnosis Comments FILM LIBRARY STORAGE ONLY CT ABDOMEN AND PELVIS Routine 04/18/2019 12:46 PM EDT documented in this encounter Results * Film Library- Storage Only CT Abdomen & Pelvis (04/18/2019 12:46 PM EDT) Narrative [facility] - 04/18/2019 12:46 PM EDT This exam is auto-finalizing. It's purpose is for storage only. Chuck Velazco MD IMG FILM LIBRARY ORD ERABLES [facility] [place], [place] documented in this encounter Visit Diagnoses Not on filedocumented in this encounter Care Teams Systems Coordinator Relationship Specialty Start Date End Date Nimo Nair PA PCP - General Orthopaedic Surgery 01/15/18 04/21/19 documented as of this encounter
--- OUTSIDE RECORDS SUMMARY | 2024-06-24 01:12 | XMS_ITS | Encounter Summary ---
[place] [address] Care Team Providers Care Volunteer Fire Fighter Name Role Phone Kathy Wright APRN Primary Care Provider Encounter Details Date Type Department Care Team (Late st Contact Info) Description 08/31/2019 [place] [address] Anahy Sharma Social History Tobacco Use Types Packs/Day Years Used Date Smoking Tobacco: Every Day Cigarettes 1 42 Smokeless Tobacco: Never Comments:5 cigarettes a day Sex and Gender Information Value Date Recorded Sex Assigned at Not on file Gender Identity Not on file Sexual Orientation Not on file documented as of this encounter Plan of Treatment Not on file documented as of this encounter Visit Diagnoses Not on filedocumented in this encounter Care Teams Volunteer Fire Fighter Relationship Specialty Start Date End Date Kathy Wright APRN PCP - General Family Medicine 04/22/19 documented as of this encounter
--- OUTSIDE RECORDS SUMMARY | 2024-06-24 01:12 | XMS_ITS | Encounter Summary ---
Author Organization [facility] [place] [address] Care Team Providers Care Bellhop Name Role Phone GerardoKathy nicolas Butch DANIEL Primary Care Provider [phone] Reason for Visit * Diagnostic Test (Routine) - Closed Specialty Diagnoses / Procedures Referred By Janie cassidy Referred To Contact Radiology Diagnoses Lung nodule Procedures NM PET CT Skull Base to Mid-thigh Kellee Wylie MD [facility] [place] [address] [place] [address] Referral ID Status Reason Start Date Expiration Date V isits Requested Visits Authorized [id number] Closed Specialty Service Requested 07/14/2019 10/12/2019 1 1 Encounter Details Date Type Department Care Team (Latest Contact Info) Description 08/04/2019 11:57 AM EDT Hospital Encounter [place] [address] Kellee Wylie MD [facility] [place] [address] Discharge Disposition: Home Social History Tobacco Use [...] Sig Dispensed Refills Start Date End Date amitriptyline (ELAVIL) 100 mg Tablet 50 mg [...] Take 20 mg by mouth daily. 01/30/2010 enalapril-hydrochlorothi azide (VASERETIC) 10-25 mg Tablet 1 tablet daily. 5 03/20/2019 01/21/2023 buPROPion (WELLBUTRIN) 100 mg Tablet 1 tablet daily. 04/19/2019 01/21/2023 cholecalciferol, Vitamin D3, 1,000 unit Tablet 1,000 Units daily. 04/05/2019 01/21/2023 cloNIDine (CATAPRES) 0.1 mg Tablet 1 tablet [...] Procedure Name Priority Date/Time Associated Diagnosis Comments NM PET CT SKULL BASE TO MID-THIGH ([facility]) Routine 08/04/2019 1:45 PM EDT Lung nodule documented in this encounter Results * NM PET CT Skull Base to Mid-thigh (08/04/2019 1:45 PM EDT) Anatomical Region Laterality Modality Positron Emissio n Tomography (PET) Impressions 08/04/2019 6:10 PM EDT 1. ??FDG avid 13 mm right lower lobe nodule, concerning for malignancy. 2. ??No regional connie or suspected distant metastases. 3. ??Increased activity at the superior endplate of the known L1 burst fracture, anatomically stable in appearance and alignment compared to 07/27/2019 CT. I have personally reviewed the image(s) and the residents interpretation and agree with the findings, Michelle Rogers at 08/04/2019 6:10 PM Thank you for letting us participate in the care of this patient. For questions regarding this report, please contact the number below. ? Narrative 08/04/2019 6:10 PM EDT EXAMINATION: NM PET CT SKULL BASE TO MID-THIGH ? CLINICAL HISTORY: lung nodule TECHNIQUE: Following IV injection of 35-ffimen-6-deoxyglucose (FDG) a standard uptake of approximately 60 minutes, a noncontrast CT scan followed by a PET scan were acquired from the base of the skull to mid thighs. The noncontrast CT was used for anatomic localization and photon attenuation correction of the PET scan. No oral contrast was administered. Blood glucose level: 105 (mg/dL) FDG dose: 12.3 mCi Reference mean liver SUV: 2.4 COMPARISON: Chest CT 07/02/2019. CT abdomen pelvis or [facility] 04/18/2019. FINDINGS: HEAD/NECK: Normal activity in all soft tissue regions of the neck and visualized lower head. CHEST: Anatomically unchanged approximately 13 mm FDG avid right lower lobe pulmonary nodule with surrounding groundglass opacity, with a maxSUV of 4. Normal activity in all other soft tissue regions. ABDOMEN/PELVIS: Normal activity in all soft tissue regions. Stable CT visualized hepatic steatosis, atrophic right kidney, and splenic calcified granuloma. Suspect gallbladder sludge. SKELETON/EXTREMITIES: Increased uptake within the superior endplate of the L1 burst fracture, which appears anatomically similar to the 07/27/2019 CT. Asymmetric uptake at the left shoulder in the region of the CT visualized suture anchors in the left humeral head, likely representing enthesopathy. Procedure Note Michelle Rogers MD - 08/04/2019 EXAMINATION: NM PET CT SKULL BASE TO MID-THIGH CLINICAL HISTORY: lung nodule TECHNIQUE: Following IV injection of 29-rxinsb-3-deoxyglucose (FDG) astandard uptake of approximately 60 minutes, a noncontrast CT scan followed by aPET scan were acquired from the base of the skull to mid thighs. The noncontrast CTwas used for anatomic localization and photon attenuation correction of thePET scan. No oral contrast was administered. Blood glucose level: 105 (mg/dL) FDG dose: 12.3 mCi Reference mean liver SUV: 2.4 COMPARISON: Chest CT 07/02/2019. CT abdomen pelvis or [facility] 04/18/2019. FINDINGS: HEAD/NECK: Normal activity in all soft tissue regions of the neck and visualizedlower head. CHEST: Anatomically unchanged approximately 13 mm FDG avid right lower lobepulmonary nodule with surrounding groundglass opacity, with a maxSUV of 4. Normalactivity in all other soft tissue regions. ABDOMEN/PELVIS: Normal activity in all soft tissue regions. Stable CT visualized hepatic steatosis, atrophic right kidney, andsplenic calcified granuloma. Suspect gallbladder sludge. SKELETON/EXTREMITIES: Increased uptake within the superior endplate of the L1 burst fracture,which appears anatomically similar to the 07/27/2019 CT. Asymmetric uptake at theleft shoulder in the region of the CT visualized suture anchors in the lefthumeral head, likely representing enthesopathy. IMPRESSION 1. FDG avid 13 mm right lower lobe nodule, concerning for malignancy. 2. No regional connie or suspected distant metastases. 3. Increased activity at the superior endplate of the known L1 burstfracture, anatomically stable in appearance and alignment compared to 07/27/2019CT. I have personally reviewed the image(s) and the residents interpretationand agree with the findings, Michelle Rogers at 08/04/2019 6:10 PM Thank you for letting us participate in the care of this patient. Forquestions regarding this report, please contact the number below. Kellee Cagle MD IMG PET ORDERABLE S documented in this encounter Visit Diagnoses Not on filedocumented in this encounter Care Teams Bellhop Relationship Specialty Start Date End Date Kathy Wright, NCA CERTIFIED CONCIERGE PCP - General Family Medicine 04/22/19 documented as of this encounter
--- OUTSIDE RECORDS SUMMARY | 2024-06-24 01:12 | XMS_ITS | Encounter Summary ---
Author Organization [facility] [place] [address] Care Team Providers Care Coal Sample Tester Name Role Phone Kathy Wright MARÍA Primary Care Provider [phone] Reason for Visit * Reason Comments Back Pain Bilateral Hip Pain Bilateral Foot Pain numbness Encounter Details Date Type Department Care Team (Late st Contact Info) Description 05/04/2019 10:40 AM EDT Office [place] [address] Chuck Rodarte CUSTOMS BROKERAGE MANAGER [facility] [place] [address] Closed compression fracture of body of L1 vertebra Social History Tobacco Use Types Packs/Day Years Used Date Smoking Tobacco: Every Day Cigarettes Smokeless Tobacco: Never Comments:5 cigarettes a day Sex and Gender Information Value Date Recorded Sex Assigned at Not on file Gender Identity Not on file Sexual Orientation Not on file documented as of this encounter Last Filed Vital Signs Vital Sign Reading Time Taken Comments Blood Pressure 91/59 05/04/2019 10:18 AM EDT Pulse - - Temperature - - Respiratory Rate - - Oxygen Saturation - - Inhaled Oxygen Concentration - - Weight 66.2 kg (146 lb) 05/04/2019 10:18 AM EDT Height 154.9 cm (5' 1) 05/04/2019 10:18 AM EDT Body Mass Index 27.59 05/04/2019 10:18 AM EDT documented in this encounter Progress Notes * Chuck Rodarte, CUSTOMS BROKERAGE MANAGER - 05/04/2019 10:40 AM EDT SUBJECTIVE: Marleni Arreola is a 58 y.o. year old female being seen at the request of with a chief complaint oflow back pain. Patient states that her low back pain began suddenly approximately 4 weeks ago when she was pulling a drawer and a Falls and fell backwards landing on her buttocks on a hard floor. She describes her pain is being diffusely from the upper lumbar spine the lumbosacral junction midlineand bilateral of midline in a fairly large area. She denies pain or weakness in either lower extremity does report numbness in the bilateral feet that she believes began after the fall. Her back painis aggravated by standing and walking and is somewhat alleviated by sitting and firm chair. She noted the other day when she went to the grocery store that the being up and about and being active in the grocery store actually helped reduce her pain but then later the day she experienced more pain. Her sleep is disrupted by the symptoms. She reports baseline balance disturbances for approximately 2 years denies unexplained falls Prior treatments include oxycodone which is helpful, acetaminophen ibuprofen and naproxen all not helpful, superficial heat helpful, tends very helpful, and a brief encounter with physical therapy since the fall not helpful. Review of systems is negative for constitutional, GI, symptoms with the exception of a bout of diarrhea. Patient smokes 5 cigarettes a day, denies alcohol use, lives alone in [facility] and is disabled. Past medical history includes fibromyalgia, PTSD, depression, and hypothyroidism. OBJECTIVE: On examination the patient's affect is bright, her speech is in good time to the point, and she responds to questions and direction. She stands a level hips and straight lumbar spine. She is tender and dysesthetic diffusely from the upper lumbar spine to the lumbosacral junction midline in the bilateral paraspinals and buttocks. She is tender to percussion of multiple vertebral bodies in the low thoracic and lumbar spine. Lumbar ROM is 45 degrees of flexion and 10 degrees of extension both of which aggravate her diffuse low back pain. She walks with a slow but steady gait, is able to toe walk, heel walk, and is able to tandem walk. Motor exam is 5/5 strength of all lower extremity muscle groups bilaterally. Sensation is intact in the bilateral L3 and L4 dermatomes of the lower extremitiesmildly impaired in the bilateral L5 and S1 dermatomes. Reflexes are 2 at the knees, to the ankles. There is no clonus or Babinski. Hip ROM and straight leg raise exams are negative. Lumbar spine x-ray of 05/04/2019 is reviewed and contrasted with abdominal CT of 04/18/2019. There is compression deformity of the superior endplate of L1 with minimal retropulsion. In comparing today'sx-ray with CT of 2 weeks ago there has been mild degree of settling of the compression to I appreciate no significant central canal stenosis as a result of the minimal retropulsion of the L1 compression deformity. I appreciate no other evidence of fracture. There is perhaps mild disc height loss at2 levels a low lumbar spine with no significant degenerative changes in the facet joints and no foraminal or central canal stenosis of significance. ASSESSMENT: This is a 58 y.o. year old female with diffuse low back pain in the setting of superior endplate compression deformity of L1 presumably acute and as the result of her fall and diffuse pain that I explained to the patient I expect to be myofascial in nature in a wide area of her low back. I explained to the patient I see no indications for invasive treatments given the diffuse nature of her back pain and also explained that it could be a number of weeks for her symptoms to slowly improve. I did suggest that she minimize activities that involve flexion additional loading of the spine and rotation as her compression deformity heals but I did encourage her to try to be as active as possible and stand and walk slowly increasing that activity she has not yet begun wearing a TLSO which has been suggested but is scheduled to see an triage licensed practical nurse in a few days. I briefly reviewed this patient's symptoms and imaging with Aleks Ellis MD, spine surgeon who agrees with the information noted above that I provided to the patient.. PLAN: 1/proceed with being fitted for TLSO. 2/slowly on increase standing and walking activities. In a few weeks it may be appropriate to restart physical therapy. 3/at this point I see no need for follow-up with the patient but certainly would be happy to see her on an as-needed basis. documented in this encounter Plan of Treatment Not on file documented as of this encounter Visit Diagnoses Diagnosis Closed compression fracture of body of L1 vertebra documented in this encounter Care Teams Coal Sample Tester Relationship Specialty Start Date End Date Kathy Wright, MARÍA PCP - General Family Medicine 04/22/19 documented as of this encounter
--- OUTSIDE RECORDS SUMMARY | 2024-06-24 01:12 | XMS_ITS | Encounter Summary ---
Author Organization [facility] Address [facility] [place] [address] Care Team Providers Care Bioanalyst Name Role Phone GerardoKathy nicolas Butch DANIEL Primary Care Provider Encounter Details Date Type Department Care Team (Latest Contact Info) Description 05/04/2019 9:37 AM EDT - 05/04/2019 11:59 PM EDT Hospital Encounter XRay at [address] [place] [address] Chuck Velazco MD [facility] [place] [address] Closed stable burst fracture of first lumbar vertebra, initial encounter Discharge Disposition: Home Social History Tobacco Use [...] Name Priority Date/Time Associated Diagnosis Comments XR LUMBAR SPINE 2 OR 3 VIEWS Routine 05/04/2019 9:49 AM EDT Closed stable burst fracture of first lumbar vertebra, initial encounter documented in this encounter Results * XR Lumbar Spine 2 Or 3 Views (Generic) (05/04/2019 9:49 AM EDT) Anatomical Region Laterality Modality L-spine N/A Digital Radiogra phy Impressions 05/04/2019 3:10 PM EDT Slight interval worsening of loss of height at the L1 burst fracture. I have personally reviewed the image(s) and the residents interpretation and agree with the findings, Andra Staton at 05/04/2019 3:10 PM Thank you for letting us participate in the care of this patient. For questions regarding this report, please contact the number below. ? Electronically signed by: Andra Staton [facility] ([phone]), at 05/04/2019 3:10 PM Narrative 05/04/2019 3:10 PM EDT EXAMINATION: XR LUMBAR SPINE 2 OR 3 VIEWS (GENERIC) CLINICAL HISTORY: Lower back pain, access known L1 fracture with burst component TECHNIQUE: AP and lateral views of the lumbar spine COMPARISON: CT abdomen and pelvis dated 04/18/2019 FINDINGS: Unchanged appearance of the L1 burst fracture with between 60% 70% loss of L1 vertebral body height, increased since the 04/18/2019 CT images, which showed between 40% to 50% loss of L1 vertebral body height. Mild retropulsion of the superior fracture fragment is again noted, without radiographic evidence of significant change in the degree of bony retropulsion when compared with the CT images. Procedure Note Andra Staton MD - 05/04/2019 EXAMINATION: XR LUMBAR SPINE 2 OR 3 VIEWS (GENERIC) CLINICAL HISTORY: Lower back pain, access known L1 fracture with burstcomponent TECHNIQUE: AP and lateral views of the lumbar spine COMPARISON: CT abdomen and pelvis dated 04/18/2019 FINDINGS: Unchanged appearance of the L1 burst fracture with between 60% 70% loss ofL1 vertebral body height, increased since the 04/18/2019 CT images, whichshowed between 40% to 50% loss of L1 vertebral body height. Mild retropulsion ofthe superior fracture fragment is again noted, without radiographic evidenceof significant change in the degree of bony retropulsion when compared withthe CT images. IMPRESSION Slight interval worsening of loss of height at the L1 burst fracture. I have personally reviewed the image(s) and the residents interpretationand agree with the findings, Andra Staton at 05/04/2019 3:10 PM Thank you for letting us participate in the care of this patient. Forquestions regarding this report, please contact the number below. Electronically signed by: Andra Staton [facility] [place] ([phone]),at 05/04/2019 3:10 PM Chuck Velazco MD IMG DX ORDERABLES documented in this encounter Visit Diagnoses Diagnosis Closed stable burst fracture of first lumbar vertebra, initial encounter documented in this encounter Care Teams Bioanalyst Relationship Specialty Start Date End Date Kathy Wright, ENGRAVER HAND HARD METALS PCP - General Family Medicine 04/22/19 documented as of this encounter
--- OUTSIDE RECORDS SUMMARY | 2024-06-24 01:12 | XMS_ITS | Encounter Summary ---
Author Organization [facility] Address [facility] [place] [address] Care Team Providers Care Cdl Truck Driver Name Role Phone Kathy Wright MARÍA Primary Care Provider [phone] Reason for Referral * Consultation (Routine) - Specialty Diagnoses / Procedures Referred By Janie cassidy Referred To Contact Thoracic Surgery Diagnoses Pulmonary nodule Kellee Wylie MD [facility] [place] [address] [facility] [place] [address] Referral ID Status Reason Start Date Expiration Date V isits Requested Visits Authorized [id number] Consult, Test & Treat 09/05/2019 09/04/2020 1 1 Encounter Details Date Type Department Care Team (Late st Contact Info) Description 09/05/2019 Telephone Pulmonology at [facility] [place] [phone] [facility] [address] [place] [address] Social History Tobacco Use Types Packs/Day Years Used Date Smoking Tobacco: Every Day Cigarettes 1 42 Smokeless Tobacco: Never Comments:5 cigarettes a day Sex and Gender Information Value Date Recorded Sex Assigned at Not on file Gender Identity Not on file Sexual Orientation Not on file documented as of this encounter Miscellaneous Notes * Telephone Encounter - Kellee Wylie MD - 09/05/2019 1:55 PM EDT Called patient to discuss plan for the newly discovered FDG avid pulmonary nodule. Patient whith a one time Ct chest and a PET/ct. performed in July and August of this year respectively. Patientis an active and every day smoker and carries about [id number] history. Today, we discussed multiple different options, as I was planning to do during the clinic visit, which patient missed. She states that she has talked to her family and currently would like to pursue surgical option without prior biopsy, due to difficult position of the nodule. She understands that she would be asked to quit tobacco prior to surgery and I would like for her to have a repeat CT chest prior to meeting with 1 of our thoracic surgeons, as it would provide at least 2 months window tosee if the nodule has changed in size or shape. I have answered all of her questions. I will be placing a referral to our colleagues in thoracic surgery as well as ordering a CT chest. documented in this encounter Plan of Treatment Scheduled Referrals Name Type Priority Associated Diagnoses Orde r Schedule Referral to Thoracic Surgery Outpatient Referral Routine Pulmonary nodule Ordered: 09/05/2019 documented as of this encounter Visit Diagnoses Diagnosis Pulmonary nodule- Primary Solitary pulmonary nodule documented in this encounter Care Teams Cdl Truck Driver Relationship Specialty Start Date End Date Kathy Wright, MARÍA PCP - General Family Medicine 04/22/19 documented as of this encounter
--- OUTSIDE RECORDS SUMMARY | 2024-06-24 01:12 | XMS_ITS | Encounter Summary ---
[place] [address] Care Team Providers Care Country Printer Name Role Phone Nimo Nair Primary Care Provider + Encounter Details Date Type Department Care Team (Late st Contact Info) Description 04/03/2019 12:05 AM EDT Ancillary Procedure [place] [address] Chuck Velazco MD [facility] [address] Social History Tobacco Use Types Packs/Day Years [...] Associated Diagnosis Comments FILM LIBRARY STORAGE ONLY DX SPINE Routine 04/03/2019 12:05 AM EDT documented in this encounter Results * Film Library- Storage Only DX Spine (04/03/2019 12:05 AM EDT) Narrative RAD - 04/18/2019 1:21 PM EDT This exam is auto-finalizing. It's purpose is for storage only. Chuck Velazco MD IMG FILM LIBRARY ORD ERABLES DH RAD [place], [place] documented in this encounter Visit Diagnoses Not on filedocumented in this encounter Care Teams Country Printer Relationship Specialty Start Date End Date Nimo Nair PA PCP - General Orthopaedic Surgery 01/15/18 04/21/19 documented as of this encounter
--- OUTSIDE RECORDS SUMMARY | 2024-06-24 01:12 | XMS_ITS | Encounter Summary ---
[place] [address] Care Team Providers Care Stoper Name Role Phone Kathy Wright Butch DANIEL Primary Care Provider [phone] Reason for Referral * Diagnostic Test (Routine) - Denied Specialty Diagnoses / Procedures Referred By Janie cassidy Referred To Contact Radiology Diagnoses Nodule of lower lobe of right lung Procedures CT Chest w Contrast [facility] Thoracic Surg [address] [place] [address] [facility] [place] [address] Referral ID Status Reason Start Date Expiration Date V isits Requested Visits Authorized [id number] Denied Specialty Service Requested 09/15/2019 09/14/2020 1 0 Encounter Details Date Type Department Care Team (Late st Contact Info) Description 09/15/2019 Orders [place] [address] Anna Owen, RN Nodule of lower lobe of right lung Social [...] the number below. ? Electronically signed by: Haley Cline [facility] ([phone]), at 09/16/2019 11:26 AM Narrative 09/16/2019 11:26 AM EDT EXAMINATION: CT [...] contact the number below. Electronically signed by: Hlaey Cline [facility]([phone]), at 09/16/2019 11:26 AM Juan Ny MD IMG CT ORDERABLES documented in this encounter Visit Diagnoses Diagnosis Nodule of lower lobe of right lung Nodule of lower lobe of right lung documented in this encounter Care Teams Stoper Relationship Specialty Start Date End Date Kathy Wright, MARÍA PCP - General Family Medicine 04/22/19 documented as of this encounter
--- OUTSIDE RECORDS SUMMARY | 2024-06-24 01:12 | XMS_ITS | Encounter Summary ---
[place] [address] Care Team Providers Care Independent Film Maker Name Role Phone Nimo Nair Primary Care Provider + Encounter Details Date Type Department Care Team (Late st Contact Info) Description 04/19/2019 Orders [place] [address] Yesica Mckeon, RN Closed stable burst fracture of first lumbar vertebra, initial encounter Social History Tobacco Use Types Packs/Day Years Used Date Smoking Tobacco: Never Assessed Sex and Gender Information Value Date Recorded Sex Assigned at Not on file Gender Identity Not on file Sexual Orientation Not on file documented as of this encounter Progress Notes * Yesica Mckeon RN - 04/19/2019 9:54 AM EDT Xray order placed to be performed on arrival to clinic eval IN FU to phone call via TC from [facility]. Xray and appt in ~ 2 wks to assess L1 fx with a burst component. IB to [place] schedulers requesting they arrange Xray and 40' appt with non surgical provider (ideally when Dr Velazco or a surgeon is in clinic). Requested efforts be made to get notes from [facility], pt was in ED or inpt on/around Friday/Friday. documented in this encounter Plan of Treatment Not on file documented as of this encounter Results * XR Lumbar Spine [...] please contact the number below. ? Narrative 05/04/2019 3:10 PM EDT EXAMINATION: XR [...] number below. Electronically signed by: Andra Staton [facility] ([phone]),at 05/04/2019 3:10 PM Chuck Velazco MD IMG DX ORDERABLES documented in this encounter Visit Diagnoses Diagnosis Closed stable burst fracture of first lumbar vertebra, initial encounter Closed stable burst fracture of first lumbar vertebra, initial encounter documented in this encounter Care Teams Independent Film Maker Relationship Specialty Start Date End Date Nimo Nair PA PCP - General Orthopaedic Surgery 01/15/18 04/21/19 documented as of this encounter
--- OUTSIDE RECORDS SUMMARY | 2024-06-24 01:12 | XMS_ITS | Encounter Summary ---
Author Organization [facility] Address [facility] [place] [address] Care Team Providers Care Steffen House Supervisor Name Role Phone GerardoKathy nicolas Butch DANIEL Primary Care Provider [phone] Encounter Details Date Type Department Care Team (Latest Contact Info) Description 08/04/2019 11:08 AM EDT - 08/04/2019 11:56 AM EDT Hospital [place] [address] Chronic obstructive pulmonary disease, unspecified COPD type Discharge Disposition: Home Social History Tobacco [...] 04/27/2019 023 documented as of this encounter Procedure Notes * Kellee Wylie MD - 08/04/2019 11:56 AM EDTAssociated Order(s): PULMONARY FUNCTION TEST Pulmonary Function Study Interpretation Presence of what appears to be a mixed pattern mild obstructive and restrictive disorder. DLCO is mildly reduced. Resting pulse oximetry is normal on room air Kellee Wylie MD documented in this encounter Plan of Treatment Not on file documented as of this encounter Procedures Procedure Name Priority Date/Time Associated Diagnosis Comments COMMON PULMONARY FUNCTION TEST Routine 08/04/2019 11:56 AM EDT Chronic obstructive pulmonary disease, unspecified COPD type documented in this encounter Results * Pulmonary Function Testing (08/04/2019 11:56 AM EDT) Narrative Kellee Wylie MD - 08/04/2019 11:56 AM EDT Kellee Wylie MD ? 08/05/2019 ??2:51 PM Pulmonary Function Study Interpretation Presence of what appears to be a mixed pattern mild obstructive and restrictive disorder. DLCO is mildly reduced. Resting pulse oximetry is normal on room air Kellee Wylie MD Kellee Cagle MD PFT ORDERABLES documented in this encounter Visit Diagnoses Diagnosis Chronic obstructive pulmonary disease, unspecified COPD type documented in this encounter Care Teams Steffen House Supervisor Relationship Specialty Start Date End Date Kathy Wright, SELLING MANAGER PCP - General Family Medicine 04/22/19 documented as of this encounter
--- OUTSIDE RECORDS SUMMARY | 2024-06-24 01:12 | XMS_ITS | Encounter Summary ---
[place] [address] Care Team Providers Care Wild Animal Caretaker Name Role Phone Nimo Nair Primary Care Provider + Encounter Details Date Type Department Care Team (Late st Contact Info) Description 04/03/2019 Ancillary Procedure [place] [address] Chuck Velazco MD [facility] [place] [address] Social History Tobacco Use Types Packs/Day Years [...] LIBRARY STORAGE ONLY DX SPINE Routine 04/03/2019 12:00 AM EDT documented in this encounter Results * Film Library- Storage Only DX Spine (04/03/2019 12:00 AM EDT) Narrative [facility] - 04/18/2019 1:20 PM EDT This exam is auto-finalizing. It's purpose is for storage only. Chuck Velazco MD G FILM LIBRARY ORD ERABLES DH [place], [place] documented in this encounter Visit Diagnoses Not on filedocumented in this encounter Care Teams Wild Animal Caretaker Relationship Specialty Start Date End Date Nimo Nair PA PCP - General Orthopaedic Surgery 01/15/18 04/21/19 documented as of this encounter
--- OUTSIDE RECORDS SUMMARY | 2024-06-24 01:12 | XMS_ITS | Encounter Summary ---
Author Organization [facility] Address [facility] [place] [address] Care Team Providers Care Ferryboat Operator Helper Name Role Phone Nimo Nair Primary Care Provider + Encounter Details Date Type Department Care Team (Late st Contact Info) Description 04/18/2019 Telephone [place] [address] Moreno Crystal MD [facility] [place] [address] Social History Tobacco Use Types Packs/Day Years Used Date Smoking Tobacco: Never Assessed Sex and Gender Information Value Date Recorded Sex Assigned at Not on file Gender Identity Not on file Sexual Orientation Not on file documented as of this encounter Miscellaneous Notes * Telephone Encounter - Moreno Crystal - 04/18/2019 2:18 PM EDT Patient is a 58-year-old female who sustained a lumbar spine injury approximately 2 weeks ago. She was evaluated at [facility] where radiographs demonstrated an L1 compression deformity. Since that time she has been treated symptomatically. She presented to [facility] with diarrhea today, and a CT scan was performed to evaluate her abdomen. The CT scan demonstrated the known L1 fracture but also demonstrated a burst component with minimal retropulsion into the canal. There is approximately 10% loss of height. She does not have any neurologic deficits. She does continue to have some low back pain. It was recommended that she can be treated in a TLSO brace and follow-up with a spine surgeon in 2 weeks, or sooner if her symptoms worsen. documented in this encounter Plan of Treatment Not on file documented as of this encounter Visit Diagnoses Not on filedocumented in this encounter Care Teams Ferryboat Operator Helper Relationship Specialty Start Date End Date Nimo Nair PA PCP - General Orthopaedic Surgery 01/15/18 04/21/19 documented as of this encounter
--- OUTSIDE RECORDS SUMMARY | 2024-06-24 01:12 | XMS_ITS | Encounter Summary ---
[place] [address] Care Team Providers Care Pan Helper Name Role Phone Kathy Wright APRN Primary Care Provider [phone] Encounter Details Date Type Department Care Team (Late st Contact Info) Description 08/05/2019 [place] [address] Andrea Martini Social History Tobacco Use Types Packs/Day Years Used Date Smoking Tobacco: Every Day Cigarettes 1 42 Smokeless Tobacco: Never Comments:5 cigarettes a day Sex and Gender Information Value Date Recorded Sex Assigned at Not on file Gender Identity Not on file Sexual Orientation Not on file documented as of this encounter Miscellaneous Notes * Telephone Encounter - Andrea Martini - 08/05/2019 11:40 AM EDT Patient calling to speak with Dr. Wylie, looking to go over results of her testing, done recently. She will not be home for the next hour or so, but will be home this afternoon. FYI: Dr. Wylie documented in this encounter Plan of Treatment Not on file documented as of this encounter Visit Diagnoses Not on filedocumented in this encounter Care Teams Pan Helper Relationship Specialty Start Date End Date Kathy Wright APRN PCP - General Family Medicine 04/22/19 documented as of this encounter
--- OUTSIDE RECORDS SUMMARY | 2024-06-24 01:12 | XMS_ITS | Encounter Summary ---
[place] [address] Care Team Providers Care Bed And Breakfast Cook Name Role Phone Kathy Wright APRN Primary Care Provider [phone] Encounter Details Date Type Department Care Team (Late st Contact Info) Description 09/15/2019 Telephone [place] [address] Ayla Vides Social History Tobacco Use Types Packs/Day Years [...] on filedocumented in this encounter Care Teams Bed And Breakfast Cook Relationship Specialty Start Date End Date Kathy Wright APRN PCP - General Family Medicine 04/22/19 documented as of this encounter
--- OUTSIDE RECORDS SUMMARY | 2024-06-24 01:12 | XMS_ITS | Encounter Summary ---
[place] [address] Care Team Providers Care Spinneret Person Name Role Phone Kathy Wright APRN Primary Care Provider [phone] Encounter Details Date Type Department Care Team (Late st Contact Info) Description 08/24/2019 Telephone [place] [address] Kip Wood II Social History Tobacco Use [...] Telephone Encounter - Kip Wood II - 08/24/2019 4:09 PM EDT Called to notifyvrose Yepez of a change in her appt time. Changed to 2:30p from 3:30p documented in this encounter Plan of Treatment Not on file documented as of this encounter Visit Diagnoses Not on filedocumented in this encounter Care Teams Spinneret Person Relationship Specialty Start Date End Date Kathy Wright APRN PCP - General Family Medicine 04/22/19 documented as of this encounter
--- OUTSIDE RECORDS SUMMARY | 2024-06-24 01:12 | XMS_ITS | Encounter Summary ---
Author Organization [facility] [place] [address] Care Team Providers Care Caddy Packer Name Role Phone Kathy Wright MARÍA Primary Care Provider [phone] Reason for Referral * Diagnostic Test (Routine) - Closed Specialty Diagnoses / Procedures Referred By Janie t Referred To Contact Radiology Diagnoses Abnormal CT of the chest Procedures CT Chest wo Contrast (Generic) Corby Anton MD [facility] [place] [id number] [facility] [place] [address] Referral ID Status Reason Start Date Expiration Date V isits Requested Visits Authorized [id number] Closed Specialty Service Requested 06/25/2019 09/23/2019 1 1 Reason for Visit * Diagnostic Test (Routine) - Closed Specialty Diagnoses / Procedures Referred By Janie cassidy Referred To Contact Radiology Diagnoses Abnormal CT of the chest Procedures CT Chest wo Contrast (Generic) Corby Anton MD [facility] [place] [address] [facility] [place] [address] Referral ID Status Reason Start Date Expiration Date V isits Requested Visits Authorized [id number] Closed Specialty Service Requested 06/25/2019 09/23/2019 1 1 Encounter Details Date Type Department Care Team (Latest Contact Info) Description 07/02/2019 12:50 PM EDT - 07/02/2019 11:59 PM EDT Hospital Encounter CT Scan at [facility] [place] [address] Corby Anton MD [facility] [place] [id number] of the chest Discharge Disposition: Home Social History Tobacco Use [...] Comments CT CHEST WO CONTRAST (GENERIC) Routine 07/02/2019 1:[address] of the chest documented in this encounter Results * CT Chest wo Contrast (Generic) (07/02/2019 1:38 PM EDT) Anatomical Region Laterality Modality Chest Computed Tomogra phy Impressions 07/02/2019 4:11 PM EDT Stable [id number]-yw-[id number] nodules in the right lower lobe, the largest of which measures 9 x 10 mm. Fatty infiltration liver. Progressive sclerosis and height loss at site of L1 burst fracture with stable fragment retropulsion. Thank you for letting us participate in the care of this patient. For questions regarding this report, please contact the number below. ? Electronically signed by: Sheela Grace [facility] ([phone]), at 07/02/2019 4:11 PM Narrative 07/02/2019 4:11 PM EDT EXAMINATION: CT CHEST WO CONTRAST (GENERIC) CLINICAL HISTORY: Abnormal CT scan TECHNIQUE: 3.75mm thick axial contiguous sections were obtained through the chest via helical acquisition without intravenous contrast administration. Thin-section reconstructions as well as coronal and sagittal reformatted images were generated. COMPARISON: CT abdomen April 18, 2019 FINDINGS: Pulmonary parenchyma: Stable side by side nodules in the right lower lobe the largest of which measures 9 x 10 mm. Airways: No bronchiectasis Pleura: No pneumothorax. No pleural effusion. Lymph nodes:No pathologically enlarged hilar, mediastinal nor axillary lymph nodes. Heart, pericardium, and great vessels: Normal size heart without pericardial effusion. Other mediastinal structures: No hematoma. Lower neck: Symmetric thyroid lobes. Upper abdomen: Fatty infiltration of the liver. Body wall soft tissues: No significant findings. Skeletal structures: Progressive sclerosis and height loss at site of L1 burst fracture with retropulsion of fragments unchanged. Procedure Note Sheela Grace MD - 07/02/2019 EXAMINATION: CT CHEST WO CONTRAST (GENERIC) CLINICAL HISTORY: Abnormal CT scan TECHNIQUE: 3.75mm thick axial contiguous sections were obtained throughthe chest via helical acquisition without intravenous contrastadministration. Thin-section reconstructions as well as coronal and sagittal reformattedimages were generated. COMPARISON: CT abdomen April 18, 2019 FINDINGS: Pulmonary parenchyma: Stable side by side nodules in the right lower lobethe largest of which measures 9 x 10 mm. Airways: No bronchiectasis Pleura: No pneumothorax. No pleural effusion. Lymph nodes:No pathologically enlarged hilar, mediastinal nor axillarylymph nodes. Heart, pericardium, and great vessels: Normal size heart withoutpericardial effusion. Other mediastinal structures: No hematoma. Lower neck: Symmetric thyroid lobes. Upper abdomen: Fatty infiltration of the liver. Body wall soft tissues: No significant findings. Skeletal structures: Progressive sclerosis and height loss at site of W7bonmv fracture with retropulsion of fragments unchanged. IMPRESSION Stable tgys-wd-[id number] nodules in the right lower lobe, the largest ofwhich measures 9 x 10 mm. Fatty infiltration liver. Progressive sclerosis and height loss at site of L1 burst fracture withstable fragment retropulsion. Thank you for letting us participate in the care of this patient. Forquestions regarding this report, please contact the number below. Electronically signed by: Sheela Grace [facility] ([phone]),at 07/02/2019 4:11 PM Corby Anton MD G CT ORDERABLES documented in this encounter Visit Diagnoses Diagnosis Abnormal CT of the chest Nonspecific (abnormal) findings on radiological and other examination of other intrathoracic organs documented in this encounter Care Teams Caddy Packer Relationship Specialty Start Date End Date Kathy Wright APRN PCP - General Family Medicine 04/22/19 documented as of this encounter
--- OUTSIDE RECORDS SUMMARY | 2024-06-24 01:12 | XMS_ITS | Encounter Summary ---
Author Organization [facility] [place] [address] Care Team Providers Care Duplicating Machine Servicer Name Role Phone Kathy Wright APRN Primary Care Provider [phone] Reason for Referral * Diagnostic Test (Routine) - Closed Specialty Diagnoses / Procedures Referred By Contac t Referred To Contact Radiology Diagnoses Lung nodule Procedures NM PET CT Skull Base to Mid-thigh [place] [address] [place] [address] Referral ID Status Reason Start Date Expiration Date V isits Requested Visits Authorized [id number] Closed Specialty Service Requested 07/14/2019 10/12/2019 1 1 Reason for Visit * Reason Comments Referral * Consultation (Routine) - Specialty Diagnoses / Procedures Referred By Contac t Referred To Contact Pulmonology Diagnoses abnormal chest CT scan Kathy Wright APRN [address] [place] [id number] [facility] [address] [place] [id number] Referral ID Status Reason Start Date Expiration Date V isits Requested Visits Authorized [id number] Consult, [facility] 04/22/2019 04/21/2020 6 6 Encounter Details Date Type Department Care Team (Late st Contact Info) Description 07/02/2019 2:00 PM EDT Office Visit Pulmonology at [facility] [place] [address] Kellee Wylie [place] [address] Lung nodule (Primary Dx); Chronic obstructive pulmonary disease, unspecified COPD type; Cigarette nicotine dependence in remission Social History [...] Sign Reading Time Taken Comments Blood Pressure 116/53 07/02/2019 1:53 PM EDT Pulse 84 07/02/2019 1:53 PM EDT Temperature - - Respiratory Rate 18 07/02/2019 1:53 PM EDT Oxygen Saturation 97% 07/02/2019 1:53 PM EDT Inhaled Oxygen Concentration - - Weight 65.3 kg (144 lb) 07/02/2019 1:53 PM EDT Height 154.9 cm (5' 1) 07/02/2019 1:53 PM EDT Body Mass Index 27.21 07/02/2019 1:53 PM EDT documented in this encounter Progress Notes * Kellee Wylie MD - 07/02/2019 2:00 PM EDT Images from the original note were not included. [facility] Section of Pulmonary and Critical Care Medicine Outpatient Consultation Date of Encounter: 07/02/2019 Referring Provider: Kathy Wright APRN [address] [place] [address] Reason for Evaluation: Kathy Wright APRN referred Ms. Marleni Arreola to me to evaluate and manage lung nodule. I independently interviewed and examined the patient in the office and have reviewed available records. History of Present Illness: 58 Yo female that had a fall in January and had a CT lumbar spine that detected presence of a pulmonary nodule. Since then, has had a dedicated CT chest that re demonstrated presence of the pulmonary nodule. Referred to us to establish care. Patient states that her health is good however she has a lot of problems with falling. Denies any constitutional symtpoms, no weight changes. No hemoptysis or hematemsis. Patient is a current every day smoker. She carries about [id number] history of tobacco inhalation and does use Flovent as wellas Ventolin regular occasions for control of symptoms of cough and mucus production. In terms of her COPD, patient states that her symptoms are relatively well controlled with current inhaler. She has not had any scheduled or performed PFTs to truly define the character of her COPD. In terms of her comorbidities, patient does have a known history of fibromyalgia, hypothyroidism and is currently on disability. 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 She is living by herself. She is an active and every day smoker and does have some alcohol intake throughout the week. She denies any illicits or history of drug use. Past Medical and Surgical History: No hx of DM, CVA or AMI History of anxiety and depression Hypertension Fibromyalgia PTSD Acute L1 fracture with current mobility issues related to that Family Hx : dad of lung cancer No past medical history on file. No past surgical history on file. Family History: Social and Occupational History: Social History Socioeconomic History ??? Marital status: Spouse name: None ??? Number of children: None ??? Years of education: None ??? Highest education level: None Occupational History ??? None Social Needs ??? Financial resource strain: None ??? Food insecurity: Worry: None Inability: None ??? Transportation needs: Medical: None Non-medical: None Tobacco Use ??? Smoking status: Current Every Day Smoker Types: Cigarettes ??? Smokeless tobacco: Never Used ??? Tobacco comment: 5 cigarettes a day Substance and Sexual Activity ??? Alcohol use: None ??? Drug use: None ??? Sexual activity: None Lifestyle ??? Physical activity: Days per week: None Minutes per session: None ??? Stress: None Relationships ??? Social connections: Talks on phone: None Gets together: None Attends gnosticist service: None Active member of club or organization: None Attends meetings of clubs or organizations: None Relationship status: None ??? Intimate partner violence: Fear of current or ex partner: None Emotionally abused: None Physically abused: None Forced sexual activity: None Other Topics Concern ??? None Social History Narrative ??? None Social narrative: Ms. Arreola lives by herself Tuberculosis risk factors include none Current Medications at Start of Encounter: Outpatient Medications Prior to Visit Medication Sig Dispense Refill ??? amitriptyline (ELAVIL) [...] 1 tablet 2 times daily. 4 ??? oxyCODONE (ROXICODONE) 5 mg Tablet 1 tablet 3 times daily. 0 ??? Ranitidine HCl (ZANTAC) 300 mg Capsule 1 capsule nightly. 5 ??? cyanocobalamin, vitamin B-12, 1,000 mcg Tablet Take 1,000 mcg by mouth daily. ??? albuterol 90 mcg/actuation HFA Aerosol Inhaler Inhale 2 puffs into the lungs every 4 hours as needed for Wheezing. Use with spacer ??? omeprazole (PRILOSEC) 40 mg capsule ??? naproxen (NAPROSYN) 375 mg Tablet 1 tablet 2 times daily as needed. No facility-administered medications prior to visit. Adverse Drug Reactions: Allergies Allergen Reactions ??? Cis Free Text Allergy COMBID. ??? Isopropamide ??? Prochlorperazine Review of Systems: An 11-point ROS was negative except per the HPI. Physical Examination: BP 116/53 Pulse 84 Resp 18 Ht 154.9 cm (5' 1) Wt 65.3 kg (144 lb) SpO2 97% BMI 27.21 kg/m?? Alert and oriented x3, pleasant, no apparent distress no evidence of respiratory distress Pupils equal and reactive to light, no jaundice Neck no evidence of lymphadenopathy or thyromegaly Breath sounds are decreased bilaterally no obvious wheezes or rhonchi rales Heart S1 and S2 are regular Extremities are cool, no edema is noted Neurological grossly nonfocal Labs: I personally reviewed relevant laboratory results which were significant for: Metabolic Parameters Hematologic Parameters LFT and Associated Parameters Coagulation Parameters Diabetes Laboratory Tests Autoantibodies No results for input(s): TAMERA, ANATITER, YOSVANY, DNAABDS, DNAABDSTITER, SMANTIBODY, HISTONEAB, CANCA, PR3AB, PANCA, MYELOP, SSAROAB, SSBLAAB, CYCCITPEP, RF, SCL70, CENTSCR, R0WSWYN, JO1, MYOSITISAB in the last 7068 hours. Acute Phase Reactants No results for input(s): CRP, SEDRATE, IRON, IRONSAT, FERRITIN, FIBRINOGEN, INTERLEUKIN6, [id number], CALPROTECTIN in the last 7068 hours. Imaging: I personally reviewed imaging from essentially normal liver kidney and electrolyte panel. Normal CBC CT Scan of the Chest for Pulmonary Embolism (PE) No results found for this or any previous visit. Contrast-enhanced CT Scan of the Chest No results found for this or any previous visit. High-Resolution (non-contrast) CT Scan of the Chest No results found for this or any previous visit. PA and lateral (2-view) CXR No results found for this or any previous visit. AP CXR (1-view) No results found for this or any previous visit. Echocardiogram: Not available Pulmonary Function Tests: Pending at this time Impression and Plan of Care: This is a pleasant 58-year-old female with evidence of persistent 8 x 10 mm nodule in the right lower for primary lung malignancy 1. Lung nodule--at this point in time, given high risk status, age as well as family history would proceed with PET/CT. If this nodule is above the threshold of detection and if it is PET positive, would recommend direct surgical resection. If no evidence of adenopathy or FDG uptake is present in the mediastinum, patient does not qualify for mediastinal staging at this point and therefore can be referred directly to surgery. Pulmonary function studies are pending at this time and we are ordering them as well 2. Emphysema--question of presence of COPD as well as emphysema. Pulmonary function studies will beordered ordered to clarify the current treatment strategies as well as risk stratify prior to surgery, if needed. Currently patient is an excellent functional status and is only limited by her activeback pain as well as presence of depression anxiety that is been long-standing. 3. Tobacco cessation--we had a long conversation regarding tobacco cessation and her specific case.I also recommend that she increases her physical activity level, to which patient states that she is active taking care of her grandkids at baseline. PET/CT PFT Blood work today Workup will be based on the findings of the PET/CT of the RLL nodule High risk Kellee Wylie MD,[facility] AT [facility] [address] Dept: [phone] Loc: [phone] documented in this encounter Plan of Treatment Not on file documented as of this encounter Procedures Procedure Name Priority Date/Time Associated Diagnosis Comments HEMOGRAM Routine 07/02/2019 3:33 PM EDT Chronic obstructive pulmonary disease, unspecified COPD type DIFFERENTIAL, AUTOMATED Routine 07/02/2019 3:33 PM EDT Chronic obstructive pulmonary disease, unspecified COPD type CBC (WITH DIFF) Routine 07/02/2019 3:33 PM EDT Chronic obstructive pulmonary disease, unspecified COPD type COMPREHENSIVE METABOLIC PANEL (NON-FASTING) Routine 07/02/2019 3:33 PM EDT Chronic obstructive pulmonary disease, unspecified COPD type documented in this encounter Results * NM [...] the number below. ? Electronically signed by: Michelle Rogers [facility] ([phone]), at 08/04/2019 6:10 PM Narrative 08/04/2019 6:10 PM EDT EXAMINATION: NM PET CT SKULL BASE TO MID-THIGH ? CLINICAL HISTORY: lung nodule TECHNIQUE: Following IV injection of 50-swblmd-9-deoxyglucose (FDG) a standard uptake of approximately 60 [...] Chest CT 07/02/2019. CT abdomen pelvis or [facility] 04/18/2019. FINDINGS: HEAD/NECK: Normal activity in [...] lung nodule TECHNIQUE: Following IV injection of 41-dimpox-9-deoxyglucose (FDG) astandard uptake of approximately 60 minutes, [...] Chest CT 07/02/2019. CT abdomen pelvis or [facility] 04/18/2019. FINDINGS: HEAD/NECK: Normal activity in [...] contact the number below. Electronically signed by: Michelle Rogers [facility]([phone]), at 08/04/2019 6:10 PM Kellee Cagle MD IMG PET ORDERABLE S * Pulmonary Function Testing (08/04/2019 11:56 AM EDT) Narrative Kellee Wylie MD - 08/04/2019 11:56 AM EDT Kellee Wylie MD ? 08/05/2019 ??2:51 PM Pulmonary Function Study Interpretation Presence of what appears to be a mixed pattern mild obstructive and restrictive disorder. DLCO is mildly reduced. Resting pulse oximetry is normal on room air Kellee Wylie MD Kellee Cagle MD PFT ORDERABLES * (ABNORMAL) Differential, Automated (07/02/2019 3:33 PM EDT) Neutrophils % 49.8 % [facility] Neutr Abs (ANC) 4.13 1.70 - 6.10 x10(3)/mc L [facility] Lymphocytes % 39.1 % [facility] Lymphocytes Abs 3.2 0.9 - 3.2 x10(3)/ L [facility] Monocytes % 7.1 % [facility] Monocyte Abs 0.6 0.3 - 0.9 x10(3)/mc L [facility] Eosinophils % 2.6 % [facility] Eosinophils Abs 0.2 0.0 - 0.4 x10(3)/mc L [facility] Basophils % 0.8 % [facility] Basophils Abs 0.1 0.0 - 0.1 x10(3)/mc L [facility] Immature Gran % 0.60 % [facility] Comment: Immature granulocytes(IG's)percentage and absolute count will include metamyelocytes, myelocytes, and promyelocytes. Blood smears from CBCs yielding IG's will be scanned manually for concordance. If this scan disagrees with the automated IG or if promyelocytes are noted, a manual differential will be performed. Wilma Gran Abs 0.05(H) 0.00 - 0.04 x10(3)/mc L [facility] Blood specimen (specimen) 07/02/2019 3:33 PM EDT 07/02/2019 3:58 PM EDT Narrative Resulting Agency Comment Spec In Lab Kellee Cagle MD HEMATOLOGY ORDERA BLES [facility] [place] [address] * Hemogram (07/02/2019 3:33 PM EDT) WBC 8.3 4.0 - 9.5 x10(3)/[facility] RBC 4.67 4.00 - 5.21 x10(6)/[facility] Hemoglobin 13.8 11.7 - 15.5 gm/dL [facility] Hematocrit 42.0 35.7 - 45.8 % [facility] MCV 89.9 82.6 - 94.4 fL [facility] MCH 29.6 27.1 - 32.0 pg [facility] MCHC 32.9 31.7 - 35.0 gm/dL [facility] Platelets 265 145 - 357 x10(3)/[facility] RDWSD 43.4 37.0 - 46.0 [facility] RDWCV 13.2 11.5 - 14.1 % [facility] MPV 9.5 7.6 - 12.9 fL [facility] nRBC % Auto 0.0 % [facility] nRBC Abs Auto 0.000 0.000 - 0.000 x10(3)/[facility] Blood specimen (specimen) 07/02/2019 3:33 PM EDT 07/02/2019 3:58 PM EDT Narrative Resulting Agency Comment Spec In Lab Kellee Cagle MD HEMATOLOGY ORDERA KEDAR [facility] [place] [address] * (ABNORMAL) Comprehensive metabolic panel (non-fasting) (07/02/2019 3:33 PM EDT) Glucose Lvl 85 65 - 199 mg/dL [facility] Comment:Diabetes: >=200 mg/d L plus symptoms BUN 10 8 - 18 mg/dL [facility] Creatinine 0.82 0.70 - 1.20 mg/dL [facility] Sodium 140 135 - 145 mmol/L [facility] Potassium 3.9 3.5 - 5.0 mmol/L [facility] Comment: Please note: ??Patients with WBC >100,000 may have falsely elevated Potassium levels. ??For accurate Potassium quantification in these patients send serum separator tube (gold top) for subsequent determinations. ??Contact the Clinical Chemistry Laboratory if there are any questions. Chloride 102 98 - 107 mmol/L [facility] CO2 23 22 - 31 mmol/L [facility] Anion Gap 15 5 - 15 mmol/L [facility] Calcium 9.9 8.5 - 10.5 mg/dL [facility] Total Protein 7.7 6.1 - 8.0 gm/dL [facility] Albumin 4.4 3.2 - 5.2 gm/dL [facility] AST 29 0 - 30 unit/L [facility] ALT 33(H) 0 - 30 unit/L [facility] Alk Phos 94 35 - 105 unit/L [facility] Total Bilirubin 0.3 0.2 - 1.3 mg/dL [facility] Estimated GFR 79 >=60 mL/min/1. 73 m?? [facility] Comment: The eGFR was calculated using the CKD-EPI equation. As with all creatinine based estimates of kidney function, eGFR values calculated with the CKD-EPI equation are not accurate in patients with acute kidney failure, extremes of body mass or the acutely ill. http://[employer]/DHMCnkf eGFR 91 >=60 mL/min/1. 73 m?? [facility] Comment: The eGFR was calculated using the CKD-EPI equation. As with all creatinine based estimates of kidney function, eGFR values calculated with the CKD-EPI equation are not accurate in patients with acute kidney failure, extremes of body mass or the acutely ill. http://[employer]/DHMCnkf Blood specimen (specimen) 07/02/2019 3:33 PM EDT 07/02/2019 3:58 PM EDT Narrative Resulting Agency Comment Spec In Lab Kellee Cagle MD CHEMISTRY ORDERAB LES Performing Organization Address City/State/[facility] Co de Phone Number [facility] [place] [address] documented in this encounter Visit Diagnoses Diagnosis Lung nodule- Primary Solitary pulmonary nodule Chronic obstructive pulmonary disease, unspecified COPD type Cigarette nicotine dependence in remission Tobacco use disorder Lung nodule Solitary pulmonary nodule Chronic obstructive pulmonary disease, unspecified COPD type documented in this encounter Care Teams Duplicating Machine Servicer Relationship Specialty Start Date End Date Kathy Wright APRN PCP - General Family Medicine 04/22/19 documented as of this encounter
--- OUTSIDE RECORDS SUMMARY | 2024-06-24 01:12 | XMS_ITS | Encounter Summary ---
Author Organization [facility] [place] [address] Care Team Providers Care Deputy Brand Inspector Name Role Phone Kathy Wright APRN Primary Care Provider [phone] Encounter Details Date Type Department Care Team (Late st Contact Info) Description 08/16/2019 Telephone Pulmonology at [facility] [place] [address] Kellee Wylie MD [facility] [place] [address] Social History Tobacco Use Types Packs/Day Years Used Date Smoking Tobacco: Every Day Cigarettes 1 42 Smokeless Tobacco: Never Comments:5 cigarettes a day Sex and Gender Information Value Date Recorded Sex Assigned at Not on file Gender Identity Not on file Sexual Orientation Not on file documented as of this encounter Miscellaneous Notes * Telephone Encounter - Kellee Wylie MD - 08/16/2019 11:04 AM EDT Tried calling patient back regarding questions that she had regarding presence of a pulmonary nodule. I was not able to reach her at her home , nor her sister's house, which is a phone number given during her phone call today. I will try calling back later documented in this encounter Plan of Treatment Not on file documented as of this encounter Visit Diagnoses Not on filedocumented in this encounter Care Teams Deputy Brand Inspector Relationship Specialty Start Date End Date Kathy Wright, MARÍA PCP - General Family Medicine 04/22/19 documented as of this encounter
--- OUTSIDE RECORDS SUMMARY | 2024-06-24 01:12 | XMS_ITS | Encounter Summary ---
Author Organization [facility] Address [facility] [place] [address] Care Team Providers Care Crematory Operator Name Role Phone Kathy Wright SHOEBLACK Primary Care Provider [phone] Encounter Details Date Type Department Care Team (Late st Contact Info) Description 08/05/2019 Telephone Pulmonology at [facility] [place] [address] Kellee Wylie MD [facility] [place] [address] Social History Tobacco Use Types Packs/Day Years Used Date Smoking Tobacco: Every Day Cigarettes 1 42 Smokeless Tobacco: Never Comments:5 cigarettes a day Sex and Gender Information Value Date Recorded Sex Assigned at Not on file Gender Identity Not on file Sexual Orientation Not on file documented as of this encounter Miscellaneous Notes * Telephone Encounter - Kellee Wylie MD - 08/05/2019 12:37 PM EDT I called patient back regarding presence of PET avid pulmonary nodule. This nodule was initially discovered in May 2019 and patient was seen in May to establish care. A PET/CT in the beginning of August showed FDG avidity of the nodule, however no increase in size. I had presented the patient with several different options which include but are not limited to direct surgical excision, waiting and radiographic surveillance, as well as potential either endobronchial or transthoracic needle aspiration and biopsy of the nodule. I think with the biopsy, given the size and position of the nodule we would not be successful in obtaining the diagnosis. The first 2 op tions are probably the most reasonable with my recommendation being to proceed directly to surgicalexcision given high risk patient. However patient would like to think about it and wait. She has anappointment scheduled with me in September 03 and at that time she would let me know in terms of her decision. documented in this encounter Plan of Treatment Not on file documented as of this encounter Visit Diagnoses Not on filedocumented in this encounter Care Teams Crematory Operator Relationship Specialty Start Date End Date Kathy Wright APRN PCP - General Family Medicine 04/22/19 documented as of this encounter
--- OUTSIDE RECORDS SUMMARY | 2024-06-24 01:12 | XMS_ITS | Encounter Summary ---
Author Organization [facility] Address [facility] [place] [address] Care Team Providers Care Event Set Up Specialist Name Role Phone Kathy Wright MARÍA Primary Care Provider [phone] Reason for Referral * Diagnostic Test (Routine) - Closed Specialty Diagnoses / Procedures Referred By Contac t Referred To Contact Cardiology Diagnoses Cigarette nicotine dependence without complication Lung nodule Vertigo Procedures Echocardiogram Transthoracic([facility]) Juan Ny MD [facility] [place] [address] [facility] [place] [address] Referral ID Status Reason Start Date Expiration Date V isits Requested Visits Authorized [id number] Closed Specialty Service Requested 09/17/2019 12/16/2019 1 1 Reason for Visit * Reason Comments Nodule * Consultation (Routine) - Specialty Diagnoses / Procedures Referred By Contac t Referred To Contact Thoracic Surgery Diagnoses Pulmonary nodule Kellee Wylie MD [facility] [address] Juan Ny MD [facility] [place] [address] Referral ID Status Reason Start Date Expiration Date V isits Requested Visits Authorized [id number] Consult, Test & Treat 09/05/2019 09/04/2020 1 1 Encounter Details Date Type Department Care Team (Late st Contact Info) Description 09/16/2019 10:15 AM EDT Office Visit Thoracic Surgery at [facility] [place] [address] Juan Ny MD [facility] [place] [address] Cigarette nicotine dependence without complication; Lung nodule; [...] Sign Reading Time Taken Comments Blood Pressure 122/60 09/16/2019 9:50 AM EDT Pulse 78 09/16/2019 9:50 AM EDT Temperature 37 ??C (98.6 ??F) 09/16/2019 9:50 AM EDT Respiratory Rate 16 09/16/2019 9:50 AM EDT Oxygen Saturation 98% 09/16/2019 9:50 AM EDT Inhaled Oxygen Concentration - - Weight 68.2 kg (150 lb 4.8 oz) 09/16/2019 9:50 A M EDT Height 154.7 cm (5' 0.91) 09/16/2019 9:50 AM ED T Body Mass Index 28.49 09/16/2019 9:50 AM EDT documented in this encounter Patient Instructions * Patient Instructions* Anna Owen RN - 09/16/2019 10:15 AM EDT Thank you for visiting Dr. Ny in clinic 09/16/19 Dr. Ny would like to schedule you for your Robotic Wedge resection possible lobectomy. He would also like to schedule an Echocardiogram. You will check in for your Transthoracic echocardiogram at outpatient receptionist area 4A. In RVATS or robot-assisted video-assisted thoracic surgery, the surgeon controls the camera, light source and surgical tools from a console, with the same degree of flexibility and dexterity as if they were held in the surgeon's hand. The tiny size of the instruments and the precision movement of the robotic arms allow the surgeon to operate in small and hscw-wu-uapgy places in the chest cavity, and to move carefully around sensitive blood vessels, tissues and organs, enabling more difficult procedures to be performed with RVATS versus open surgery. A wedge is the removal of a small part of the lobe of the lung. A lobectomy is when a surgeon removed a lobe of your lung. A video-assisted thoracoscopic surgery, or VATS, involves a range of technologies to enable the removal of tissue through several small cutsin the chest. A tiny camera, light supply and surgical tools are inserted in the incisions and through the body to the surgical site. In RVATS or robot-assisted video-assisted thoracic surgery, the surgeon controls the camera, light source and surgical tools from a console, with the same degree of flexibility and dexterity as if they were held in the surgeon's hand. The tiny size of the instruments and the precision movement of the robotic arms allow the surgeon to operate in small and ebfn-iw-fnqvp places in the chest cavity, and to move carefully around sensitive blood vessels, tissues and organs, enabling more difficult procedures to be performed with RVATS versus open surgery. Before your Surgery: ?? Preadmission Testing today in clinic 4V ?? Exercise: Daily aerobic exercise for at least 30 minutes will help improve your endurance and improve the breathing capacity of your lungs. This means that you are breathing hard, your heart is beating fast and that you are sweating. Examples of this include walking, biking, swimming, and using a treadmill or stationary bike. You will be expected to exercise after surgery as well. ?? Incentive Spirometer: Use your incentive spirometer as you were shown in clinic: 6 times daily/10 breaths each time. Takea slow, deep breath in through your mouth. While the piston rises, the indicator on the right should move upwards. It should stay between the 2 arrows for 2 to 4 seconds with each breath. If the indicator does not stay between the arrows, you are breathing either too fast or too slowly. The incentive spirometer will help you expand your lungs and encourage you to breathe deeply and fully. Please bring your incentive spirometer to the hospital with you on the day of surgery. You willuse the incentive spirometer as part of your recovery process and to prevent complications such as pneumonia. ?? If you take the medication Lovenox, you will need to take your last dose by 6:30 am the day before your surgery. Some things to expect during your surgery and while you are in the hospital: Before your surgery you will most likely have an epidural placed for pain control. This is a very thin catheter placed just outside the covering of the spinal cord (the epidural space). This will be done just before your operation and you will receive some medication to sedate you before having it placed. You will lie on your belly or prone, to have this procedure. The epidural will help to control your pain by focusing pain medications near the site of your operation. An anesthesiologist will put the epidural in. The area on your back will be cleaned first. A numbing medicine will be injected into the area. Once the area is numb, the doctor will insert a needle into the area. They will check for correct placement with an x-ray. When the needle is in the correct spot, a thin wire-like catheter will be inserted through the needle and the needle will be removed. You will be able to walk with this epidural. It typically is removed a day or two after surgery, but may stay in for a week. Small amounts of pain medication will be administered through the catheter continuously with a pump mo nitored by the nurse and doctor. You will also be able to give yourself a small amount of medication by pushing a button attached to the pain medication pump. The nursing staff will be giving you acetaminophen or tylenol along with the epidural pain medication. Please have acetaminophen at home to take after surgery along with your prescription pain medication. If your pain is not adequately controlled please let your nurse know. You will leave the operating room with a urinary catheter. The catheter is usually removed a day ortwo after surgery. You will have a chest tube placed while you are in surgery. A Chest tube is a flexible tube that isused to drain blood, fluid and air from around your lungs after surgery. The tube enters your body between your ribs and goes into the space where the piece of lung was removed. The chest tube will come out a day after surgery, if there is no air leak in your lung. If there is an air leak, the chest tube will stay in until it stops. The nurse and doctor will be watching for the air leak to clear up regularly throughout the day. Dr. Ny's team will see you twice per day while you are in the hospital. Two weeks after you leave the hospital, you will be scheduled to see Dr. Martini in his clinic and will also have a chestx-ray before you see him on this day. Please call the Thoracic Surgery nurse if you have any questions before or after your surgery at . documented in this encounter H&P Notes * Rashaun Thurman PA - 09/16/2019 10:15 AM EDT Thoracic Surgery Outpatient Consultation Note Rashaun Thurman PA-C [place] [address] Referring Provider: Kellee Cagle MD [facility] [place] [address] Reason for Consultation: FDG avid RLL lung nodule Ms. Arreola is a 59 y.o. female with [...] as 16 mm focal opacity of RLL. CT Chest was performed 07/02/18 which demonstrated stable akfv-sk-kwyb nodules in the RLL, largest measuring 9 x 10 mm. PET was then performed 08/04/19 which revealed the 13 mm RLL nodule to be FDG avid, with no other suspected sites of involvement. Patient was then referred to [facility] thoracic surgery for further workup. We have personally reviewed the following scans and results that are part of the work up, including: CT Chest I+ (09/16/19): - 15 mm right lower lobe pulmonary nodule has been present dating back to April 18, 2019 ([address] CT), but remains concerning for a slow-growing pulmonary malignancy in this patient with smoking history. 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 Accessory ostium draining a confluence of a posterior right upper lobe and apical right lower lobe pulmonary vein. - Hepatic steatosis. - Atrophy of the right kidney. CT Chest I- (07/02/19): Stable kdmc-xr-gqpd nodules in the Right lower lobe, the largest of which measures 9 x 10 mm. Fatty infiltration liver. Progressive sclerosis and height loss at site of L1 burst fracture with stable fragment retropulsion. CT Abd/Pelvis (04/18/19): 1. Low-attenuation bowel wall thickening in the distal half of the transverse colon and descending colon and rectosigmoid consistent with colitis. Differential diagnosis includes infectious and inflammatory etiologies. 2. Acute burst fracture of L1. Fracture fragments are displaced into the canal 6 mm. 3. 16 mm focal opacity in the Right lower lobe may represent pneumonia versus neoplasm. PET (08/04/19): 1. FDG avid 13 mm Right lower lobe nodule, concerning for malignancy. 2. No regional connie or suspected distant metastases. 3. Increased activity at the superior endplate of the known L1 burst fracture, anatomically stable in appearance and alignment compared to 07/27/2019 CT. Pulmonary function tests on 08/04/19 showed an FVC of 2.31, 77% of predicted; and FEV1 of 1.73, 74% predicted; and a DLCO of 61% predicted. Patient is a former smoker of about 1 ppd x42 years (around 42 pack year smoking history), quit in July 2019. She rarely drinks alcohol, and occasionally consumes marijuana edibles. She admits prior dizzy spells several months ago which have subsided (reports she had this worked up by her PCP andneurology in [facility]), reflux symptoms and occasional nausea. She denies fevers, night sweats, or chest pain on exertion. She has lost no weight recently. She is able to walk on the flat with the assistance of a cane, and up a flight of stairs however this takes a while. Her ECOG performance status is 1 - Symptomatic but completely ambulatory. A 14-point review of systems is otherwise negative, except where noted above. She has a past medical history of Chronic pain, COPD (chronic obstructive pulmonary disease), Gastroesophageal reflux, High blood pressure, Motion sickness, and Vertigo. She has no past surgical history on file. She has a current medication list which includes the following prescription(s): amitriptyline, enalapril-hydrochlorothiazide, bupropion, cholecalciferol (vitamin d3), clonidine, levothyroxine, metoprolol tartrate, ranitidine hcl, prilosec, clonazepam, flovent hfa, loratadine, naproxen, oxycodone, cy anocobalamin (vitamin b-12), and albuterol. She is allergic to cis free text allergy; isopropamide; and prochlorperazine. Her family history is not on file. A review of her social history shows: Social History Tobacco Use ??? Smoking status: Former Smoker Packs/day: 0.50 Years: 42.00 Pack years: 21.00 Types: Cigarettes Last attempt to quit: 07/02/2019 Years since quittin.2 ??? Smokeless tobacco: Former User Quit date: 07/02/2019 Substance Use Topics ??? Alcohol use: Never On examination, Ms. Arreola is a well nourished, well-developed female. She is alert and oriented. Vital Signs: BP 122/60 (Patient Position: Sitting) Pulse 78 Temp 37 ??C (98.6 ??F) (Oral) Resp 16 Ht 154.7 cm (5' 0.91) Wt 68.2 kg (150 lb 4.8 oz) SpO2 98% BMI 28.49 kg/m?? Body mass index is 28.49 kg/m??. Her pulse is regular, breathing is unlabored and temperature is afebrile. In general she is in no acute distress. Her pupils are reactive. Her sclera are anicteric. She has no palpable cervical or supraclavicular adenopathy. The lung gomez are clear to auscultation bilaterally. Heart rate and rhythm are normal, and there is no murmur. The abdomen is soft and nontender. No organs or masses are palpable. There is no peripheral edema, cyanosis, or clubbing of the extremities. Pulses are full and equal bilaterally. Neurologic examination is grossly intact. Musculoskelatal exam is grossly intact with 5/5 strength in bilat upper extremities and 4+/5 strength in bilat lower extremities. Her skin is non-jaundiced. In summary, Ms. Arreola is a 59 y.o. female with a RLL lung nodule. We have discussed the differential diagnosis including primary lung cancer, metastatic cancer to the lung, or benign lung nodule. We have discussed options including observation/surveillance, percutaneous or bronchoscopic biopsy, or surgical resection. We have discussed with her the risks of a Bronchoscopy and robot assisted Right lower lobe wedge resection with possible Right lower lobe segmentectomy/lobectomy and mediastinal lymph node dissection. She understands the risks of bleeding, damage to surrounding structures, including the laryngeal nerve resulting in hoarseness, the phrenic nerve resulting in diaphragmatic paralysis, possible shortness of breath, the need for oxygen, a benign nodule, cancer recurrence (if cancer), a prolonged air leak, heart attack, arrhythmia, stroke and . She asked appropriate questions and would like to proceed. We have asked Ms. Arreola to begin a regular exercise regimen that involves dedicated walking 30-60 minutes per day, 6 days per week, or some equivalent form of exercise/activity. We have provided her with an incentive spirometer and instructed her on its use, asking her to use it several times a day. Her procedure will be scheduled in the next few weeks. Additional work up will include TTE to assess cardiac function given her history of dizzy spells and clearance from our spine service, which she last saw back in May, to ensure that it will be safe to position the patient during surgery with her Left side down and with the bed in a flexed position. If she should have any further questions or concerns, she should feel free to contact us. Patient was seen and evaluated in conjunction with Dr. Ny. JOSE Smith 09/16/2019 Thoracic Surgery [facility] I have seen the patient and reviewed the PA's above history and I agree with the details as written. The assessment and plan were formulated in discussion with me and I agree with them as documented.I have edited the note where appropriate. Please see my separate note for further details. Juan Ny MD 09/16/2019 * Juan Ny MD - 09/16/2019 10:15 AM EDT Thoracic Surgery Attending Outpatient Consultation Note Juan Ny MD [place], [place] [address] ? Referring Provider: Kellee Cagle MD [facility] [place] [address] ?? Reason for Consultation: FDG avid RLL lung nodule ?? Today, 09/16/2019, I saw Ms. Arreola in the Thoracic Surgery Clinic at [facility] in consultation for a Right lower lobe lung nodule at your request. Her history was obtained from the patient. I have also reviewed her medical records and imaging prior to today's visit. As you know, Ms. Arreola is a 59 y.o. female that in March 2019 fell backward while opening a drawer, and she was also having issues with abdominal pain around that time. A CT Abd/Pelvis was performed 04/18/19 which revealed colitis, acute burst fracture of L1, as well as 16 mm focal opacity of RLL. A dedicated CT Chest was performed 07/02/18which demonstrated stable asbb-bp-hkir nodules in the RLL, largest measuring 9 x 10 mm. PET was then performed 08/04/19 which revealed the 13 mm RLL nodule to be FDG avid, with no other suspected sitesof involvement. She was referred to thoracic surgery for further diagnostic work up and management. She is a former smoker of about 1 ppd x42 years, but states that she quit in July 2019. She rarely drinks alcohol, and occasionally consumes marijuana edibles. She admits prior dizzy spells severalmonths ago which have subsided (reports she had this worked up by her PCP and neurology in [facility]), reflux symptoms and occasional nausea. She denies fevers, night sweats, or chest pain on exertion. She has lost no weight recently. She is able to walk on the flat with the assistance of a cane, and up a flight of stairs however this takes a while. Her ECOG performance status is 1 - Symptomatic but completely ambulatory.?? I have personally reviewed the following scans and results that are part of the work up, including: ?? CT Chest I+ (09/16/19): - 15 mm right lower lobe pulmonary nodule has been present dating back to April 18, 2019 (outside CT), but remains concerning for a slow-growing pulmonary malignancy in this patient with smoking history. 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 Accessory ostium draining a confluence of a posterior right upper lobe and apical right lower lobe pulmonary vein. - Hepatic steatosis. - Atrophy of the right kidney. ?? CT Chest I- (07/02/19): Stable nooa-bt-llug nodules in the Right lower lobe, the largest of which measures 9 x 10 mm. Fatty infiltration liver. Progressive sclerosis and height loss at site of L1 burst fracture with stable fragment retropulsion. ?? CT Abd/Pelvis (04/18/19): 1. Low-attenuation bowel wall thickening in the distal half of the transverse colon and descending colon and rectosigmoid consistent with colitis. Differential diagnosis includes infectious and inflammatory etiologies. 2. Acute burst fracture of L1. Fracture fragments are displaced into the canal 6 mm. 3. 16 mm focal opacity in the Right lower lobe may represent pneumonia versus neoplasm. ?? PET (08/04/19): 1. FDG avid 13 mm Right lower lobe nodule, concerning for malignancy. 2. No regional connie or suspected distant metastases. 3. Increased activity at the superior endplate of the known L1 burst fracture, anatomically stable in appearance and alignment compared to 07/27/2019 CT. ?? Pulmonary function tests on 08/04/19 showed an FVC of 2.31, 77% of predicted; and FEV1 of 1.73, 74% predicted; and a DLCO of 61% predicted. ?? A 14-point review of systems is otherwise negative, except where noted above. ?? She has a past medical history of Chronic pain, COPD (chronic obstructive pulmonary disease), Gastroesophageal reflux, High blood pressure, Motion sickness, and Vertigo. ?? She has no past surgical history on file. ?? She has a current medication list which includes the following prescription(s): amitriptyline, enalapril-hydrochlorothiazide, bupropion, cholecalciferol (vitamin d3), clonidine, levothyroxine, metoprolol tartrate, ranitidine hcl, prilosec, clonazepam, flovent hfa, loratadine, naproxen, oxycodone, cy anocobalamin (vitamin b-12), and albuterol. ?? She is allergic to cis free text allergy; isopropamide; and prochlorperazine. ?? Her family family history is significant for lung cancer in her father. ?? A review of her social history shows: Social History ?? Tobacco Use ??? Smoking status: Former Smoker ? Packs/day: 1 ? Years: 42.00 ? Pack years: 42 ? Types: Cigarettes ? Last attempt to quit: 07/02/2019 ? Years since quittin.2 ??? Smokeless tobacco: Former User ? Quit date: 07/02/2019 Substance Use Topics ??? Alcohol use: Never ?? On examination, Ms. Arreola is a well nourished, well-developed female. She is alert and oriented. Vital Signs: BP 122/60 (Patient Position: Sitting) Pulse 78 Temp 37 ??C (98.6 ??F) (Oral) Resp 16 Ht 154.7 cm (5' 0.91) Wt 68.2 kg (150 lb 4.8 oz) SpO2 98% BMI 28.49 kg/m?? Body mass index is 28.49 kg/m??. Her pulse is regular, breathing is unlabored and temperature is afebrile. In general she is in no acute distress. Her pupils are reactive. Her sclera are anicteric. She has no palpable cervical or supraclavicular adenopathy. The lung gomez are clear to auscultation bilaterally. Heart rate and rhythm are normal, and there is no murmur. The abdomen is soft and nontender. No organs or masses are palpable. There is no peripheral edema, cyanosis, or clubbing of the extremities. Pulses are full and equal bilaterally. Neurologic examination is grossly intact. Musculoskelatal exam is grossly intact with 5/5 strength in bilat upper extremities and 4+/5 strength in bilat lower extremities. Her skin is non-jaundiced. ?? In summary, Ms. Arreola is a 59 y.o. female with a PET avid 13mm RLL lung nodule. We have discussed the differential diagnosis including primary lung cancer, metastatic cancer to the lung, or benign lung nodule. We have discussed options including observation/surveillance, percutaneous or bronchoscopic biopsy, or surgical resection. We have discussed with her the risks of a Bronchoscopy and robot assisted Right lower lobe wedge resection with possible Right lower lobe segmentectomy/lobectomy and mediastinal lymph node dissection. She understands the risks of bleeding, damage to surrounding structures, including the laryngeal nerve resulting in hoarseness, the phrenic nerve resulting in diaphragmatic paralysis, possible shortness of breath, the need for oxygen, a benign nodule, cancer recurrence (if cancer), a prolonged air leak, heart attack, arrhythmia, stroke and . She asked appropriate questions and would like to proceed. Given her lung function, I would plan to perform a basilar segmentectomy if the nodule is found to be a lung cancer, which will be facilitated by her anomalous pulmonary venous return with a separatevenous ostium from the posterior aspect of the upper lobe and the superior segment of the lower lobe. ?? We have asked Ms. Arreola to begin a regular exercise regimen that involves dedicated walking 30-60 minutes per day, 6 days per week, or some equivalent form of exercise/activity. We have provided her with an incentive spirometer and instructed her on its use, asking her to use it several times a day. ?? Her procedure will be scheduled in the next few weeks. ?? Additional work up will include TTE to assess cardiac function given her history of dizzy spells. She is unsure if this was done as part of her prior work up. We have sent a note to Chuck Rodarte APRN in the spine clinic that saw her in May 2019 for the burst fracture to confirm it will be safe to position the patient during surgery with her Left side down and with the bed in a flexed position. Her surgery is tentatively scheduled for Oct 06, 2019. She also consented to our biobanking and Treg research protocols. ?? If she should have any further questions or concerns, she should feel free to contact us. ?? Juan Ny MD 09/16/2019 documented in this encounter Plan of Treatment Scheduled Orders Name Type Priority Associated Diagnoses Orde r Schedule CBC (with Diff) Lab Routine Cigarette nicotine dependence without complication Lung nodule Vertigo Expected: 09/16/2019 (Approximate), Expires: 12/15/2019 Comprehensive metabolic panel (non-fasting) Lab Routine Cigarette nicotine dependence without complication Lung nodule Vertigo Expected: 09/16/2019 (Approximate), Expires: 12/15/2019 documented as of this encounter Procedures Procedure Name Priority Date/Time Associated Diagnosis Comments ROBOT XI THORACOSCOPY,SURG; W/DX WEDGE RESC W/ANATOMIC LUNG RESC Routine 09/16/2019 11:20 AM EDT Lung nodule documented in this encounter Results * ECHO COMPLETE W CONTRAST (09/22/2019 3:05 PM EDT) EF 64 HEARTLAB SYSTEM Anatomical Region Laterality Modality Other 09/22/2019 Narrative 09/22/2019 5:12 PM EDT Procedure: ?Transthoracic Echocardiogram Patient: ?KADEN Puente ? (Age): 1960(59y) Med Rec#: ? [id number] ?Sex: ?F ? Site Loc: ? [facility] ?Ht / Wt: ??155(cm)/68(kg) Pt. Loc: ?Echo Lab ?BSA: ?1.67 Study Date: ?? 09/22/2019 ?Pt. Type: Outpatient Tape: ? Referring: DEBRA Reading: Alejandro Oakley ([id number]) [employer] Manager Architect: Esteban Solorio, [facility] Nurse: Kailyn Garcia Diagnosis: *Solitary pulmonary nodule [...] E-wave Vmax ?0.4 ?m/sec ? MV deceleration [id number] ?msec ? MV A-wave Vmax ?0.6 ?m/sec [...] ? Mid-Inferior ?Normal ? Mid-Inferoseptal ?Normal ? [place]-Septal ? Normal ? [place]-Anterior ? Normal ? [place]-Lateral ?Normal ? [place]-Inferior ? Normal ? [place]-Tip ?Normal ? This report has been electronically signed by: Alejandro Oakley MD ? 09/22/2019 17:11:03 Images reviewed and interpretation verified [facility] Procedure Note Alejandro Oakley MD - 09/22/2019 Procedure: Transthoracic Echocardiogram Patient: KADEN Puente (Age): 1960(59y) Med Rec#: [id number] Sex: F Site Loc: [facility] Ht / Wt: 155(cm)/68(kg) Pt. Loc: Echo Lab BSA: 1.67 Study Date: 09/22/2019 Pt. Type: Outpatient Tape: Referring: [facility]ST[facility] LabsPHD Reading: Alejandro Oakley ([id number]) [employer] Manager Architect: Esteban Solorio, CS Nurse: Kailyn Garcia Diagnosis: *Solitary pulmonary nodule [...] MV E-wave Vmax 0.4 m/sec MV deceleration [id number] msec MV A-wave Vmax 0.6 m/sec MV [...] Normal Mid-Posterolateral Normal Mid-Inferior Normal Mid-Inferoseptal Normal [place]-Septal Normal [place]-Anterior Normal [place]-Lateral Normal [place]-Inferior Normal [place]-Tip Normal This report has been electronically signed by: Alejandro Oakley MD 09/22/2019 17:11:03 Images reviewed and interpretation verified [facility] Juan Ny MD ECHO ORDERABLES * EKG 12 Lead (09/16/2019 12:51 PM EDT) Ventricular rate 80 BPM MUSE SYSTEM Atrial Rate 80 BPM MUSE SYSTEM P-R Interval 154 ms MUSE SYSTEM QRS Duration 98 ms MUSE SYSTEM Q-T Interval 416 ms MUSE SYSTEM QTC Calculated (Bezet) 479 ms MUSE SYSTEM Calculated P [place] 52 degrees MUSE SYSTEM Calculated R [place] 56 degrees MUSE SYSTEM Calculated T [place] 40 degrees MUSE SYSTEM INTERPRETATION Normal sinus rhythm RSR' or QR pattern in V1 suggests right ventricular conduction delay Otherwise normal ECG No previous ECGs available Confirmed by MD Danyelle, Mehran Tristan ([id number]) on 09/16/2019 4:36:55 PM MUSE SYSTEM 09/16/2019 12:5 1 PM EDT 09/16/2019 4:36 PM EDT Juan Ny MD ECG ORDERABLES MUSE SYSTEM * (ABNORMAL) Comprehensive metabolic panel (non-fasting) (09/16/2019 12:43 PM EDT) Glucose Lvl 94 65 - 199 mg/dL [facility] Comment:Diabetes: >=200 mg/d L plus symptoms BUN 8 8 - 18 mg/dL [facility] Creatinine 0.91 0.70 - 1.20 mg/dL [facility] Sodium 138 135 - 145 mmol/L [facility] Potassium 4.0 3.5 - 5.0 mmol/L [facility] Comment: Please note: ??Patients with WBC >100,000 may have falsely elevated Potassium levels. ??For accurate Potassium quantification in these patients send serum separator tube (gold top) for subsequent determinations. ??Contact the Clinical Chemistry Laboratory if there are any questions. Chloride 99 98 - 107 mmol/L [facility] CO2 24 22 - 31 mmol/L [facility] Anion Gap 15 5 - 15 mmol/L [facility] Calcium 9.6 8.5 - 10.5 mg/dL [facility] Total Protein 7.8 6.1 - 8.0 gm/dL [facility] Albumin 4.6 3.2 - 5.2 gm/dL [facility] AST 32(H) 0 - 30 unit/L [facility] ALT 45(H) 0 - 30 unit/L [facility] Alk Phos 97 35 - 105 unit/L [facility] Total Bilirubin 0.3 0.2 - 1.3 mg/dL [facility] Estimated GFR 69 >=60 mL/min/1. 73 m?? [facility] Comment: The eGFR was calculated using the CKD-EPI equation. As with all creatinine based estimates of kidney function, eGFR values calculated with the CKD-EPI equation are not accurate in patients with acute kidney failure, extremes of body mass or the acutely ill. http://FilterEasy/[employer] Club[employer]f eGFR 80 >=60 mL/min/1. 73 m?? [facility] Comment: The eGFR was calculated using the CKD-EPI equation. As with all creatinine based estimates of kidney function, eGFR values calculated with the CKD-EPI equation are not accurate in patients with acute kidney failure, extremes of body mass or the acutely ill. http://FilterEasy/DHMCnkf Blood specimen (specimen) 09/16/2019 12:43 PM EDT 09/16/2019 12:52 PM EDT Narrative Resulting Agency Comment Spec In Lab Juan Ny MD CHEMISTRY ORDERABLE S Performing Organization Address City/State/[facility] Co de Phone Number [facility] [place] [phone] documented in this encounter Visit Diagnoses Diagnosis Cigarette nicotine dependence without complication Tobacco use disorder Lung nodule Solitary pulmonary nodule Vertigo Dizziness and giddiness Cigarette nicotine dependence without complication Tobacco use disorder Lung nodule Solitary pulmonary nodule Vertigo Dizziness and giddiness documented in this encounter Care Teams Event Set Up Specialist Relationship Specialty Start Date End Date Kathy Wright APRN PCP - General Family Medicine 04/22/19 documented as of this encounter
--- OUTSIDE RECORDS SUMMARY | 2024-06-24 01:12 | XMS_ITS | Encounter Summary ---
Author Organization [facility] Address [facility] [place] [address] Care Team Providers Care Pellet Mill Operator Name Role Phone GerardoKathy nicolas Butch DANIEL Primary Care Provider [phone] Encounter Details Date Type Department Care Team (Late st [facility] Info) Description 12/26/2003 Orders Only Dermatology at [address] [place] [address] Samuel Will MD [address] DERMATOLOGY [place], [place] [id number] Social History Tobacco Use Types Packs/Day Years Used Date Smoking Tobacco: Never Assessed Sex and Gender Information Value Date Recorded Sex Assigned at Not on file Gender Identity Not on file Sexual Orientation Not on file documented as of this encounter Plan of Treatment Not on file documented as of this encounter Procedures Procedure Name Priority Date/Time Associated Diagnosis Comments SURGICAL PATHOLOGY REPORT Routine 12/26/2003 8:34 PM EST documented in this encounter Results * Surgical Pathology Report (12/26/2003 8:34 PM EST) Surgical Pathology Report [id number] ? Location: The signing pathologist has (i) examined the relevant preparation(s) for the specimen(s) and (ii) rendered or confirmed the diagnosis(es). . ?Pathology Surgical Pathology Final Report Clinical Information Specimen Submitted: (L) Anterior cooper, shave Clinical History: 2 x 2 1/2 erythematous patch tx'ed with shave C & D. ??Keyes's disease / superficial SCCa Gross Description Labeled/Fixative : ? Labeled with the patient's name, formalin. Qty/Size/Weight: ?Three pieces ranging from 1.0 x 0.5 x 0.1 cm to ?2.2 x 1.2 x 0.1 cm. Tissue Description: ?? Portions of crusted de la rosa-white and de la rosa-brown skin. Sections/Process ing: ??The smallest portion of tissue is bisected and ?submitted in (A1). ??The intermediate portion of tissue is serially sectioned and submitted in (A2) and the largest portion of tissue is serially sectioned and submitted in (A3-4). ??(T4) ??cam/EJR Microscopic Description Slides reviewed, microscopic description not recorded. Diagnosis Irritated and inflamed seborrheic keratosis, shave biopsy, left anterior cooper, (see Comment). CR-0 12/28/03 CM 12/28/03 Verified by: ? Joellen Napier MD ?Dermatopatholo gist ?(Electronic Signature) The attending pathologist whose signature appears on this report has reviewed all diagnostic slides and has edited the gross and/or microscopic portion of the report in rendering the final pathologic diagnosis. Comment This is a large lesion. ??There are areas that show a clonal pattern of seborrheic keratosis. ??There is also a raised thick component which is partially transected, and this area is more typical of an acanthotic seborrheic keratosis. ??There are marked secondary changes of irritation. [facility] 12/26/2003 8:34 PM EST Samuel Will MD PATHOLOGY/[facility] documented in this encounter Visit Diagnoses Not on filedocumented in this encounter Care Teams Pellet Mill Operator Relationship Specialty Start Date End Date Kathy Wright, MARÍA PCP - General Family Medicine 04/22/19 documented as of this encounter
--- OUTSIDE RECORDS SUMMARY | 2024-06-24 01:12 | XMS_ITS | Encounter Summary ---
Author Organization [facility] [place] [address] Care Team Providers Care Counter Intelligence Agent Name Role Phone Kathy Wright PATIENT SITTER Primary Care Provider [phone] Reason for Referral * Diagnostic Test (Routine) - Closed Specialty Diagnoses / Procedures Referred By Janie cassidy Referred To Contact Radiology Diagnoses Abnormal CT of the chest Procedures CT Chest wo Contrast (Generic) Corby Anton MD [facility] [place] [address] [facility] [place] [address] Referral ID Status Reason Start Date Expiration Date V isits Requested Visits Authorized [id number] Closed Specialty Service Requested 06/25/2019 09/23/2019 1 1 Encounter Details Date Type Department Care Team (Late st Contact Info) Description 05/05/2019 Orders [place] [address] Corby Anton MD [facility] [place] [id number] of the chest Social History Tobacco Use Types Packs/Day Years [...] phy Impressions 07/02/2019 4:11 PM EDT Stable osww-wh-jufu nodules in the right lower lobe, the largest of which measures 9 x 10 mm. Fatty infiltration liver. Progressive sclerosis and height loss at site of L1 burst fracture with stable fragment retropulsion. Thank you for letting us participate in the care of this patient. For questions regarding this report, please contact the number below. ? Electronically signed by: Sheela Grace [facility] ([phone]), at 07/02/2019 4:11 PM Narrative 07/02/2019 4:11 [...] sclerosis and height loss at site of F9rrqyo fracture with retropulsion of fragments unchanged. IMPRESSION Stable ipwl-uc-cwzm nodules in the right lower lobe, the largest ofwhich measures 9 x 10 mm. Fatty infiltration liver. Progressive sclerosis and height loss at site of L1 burst fracture withstable fragment retropulsion. Thank you for letting us participate in the care of this patient. Forquestions regarding this report, please contact the number below. Electronically signed by: Sheela Grace [facility] ([phone]),at 07/02/2019 4:11 PM Corby Anton MD IMG CT ORDERABLES documented in this encounter Visit Diagnoses Diagnosis Abnormal CT of the chest Nonspecific (abnormal) findings on radiological and other examination of other intrathoracic organs Abnormal CT of the chest Nonspecific (abnormal) findings on radiological and other examination of other intrathoracic organs documented in this encounter Care Teams Counter Intelligence Agent Relationship Specialty Start Date End Date Kathy Wright APRN PCP - General Family Medicine 04/22/19 documented as of this encounter
--- OUTSIDE RECORDS SUMMARY | 2024-06-24 01:12 | XMS_ITS | Encounter Summary ---
Author Organization [facility] [place] [address] Care Team Providers Care Firestopper Installer Name Role Phone Kathy Wright UNLOADER OPERATOR Primary Care Provider [phone] Encounter Details Date Type Department Care Team (Late st Contact Info) Description 09/03/2019 Telephone Pulmonology at [facility] [place] [address] Kellee Wylie MD [facility] [place] [address] Social History Tobacco Use Types Packs/Day Years Used Date Smoking Tobacco: Every Day Cigarettes 1 42 Smokeless Tobacco: Never Comments:5 cigarettes a day Sex and Gender Information Value Date Recorded Sex Assigned at Not on file Gender Identity Not on file Sexual Orientation Not on file documented as of this encounter Miscellaneous Notes * Telephone Encounter - Kellee Wylie MD - 09/03/2019 1:37 PM EDT Patient cancelled the appointment with me today. We were going to discuss further management of FDGavid 13 mm pulmonary nodule. I tried to reach the patient on the phone however was not able to. Message was left for a call back. patient is rescheduled for Oct 15 documented in this encounter Plan of Treatment Not on file documented as of this encounter Visit Diagnoses Not on filedocumented in this encounter Care Teams Firestopper Installer Relationship Specialty Start Date End Date Kathy Wright APRN PCP - General Family Medicine 04/22/19 documented as of this encounter
--- OUTSIDE RECORDS SUMMARY | 2024-06-24 01:12 | XMS_ITS | Encounter Summary ---
Author Organization [facility] Address [facility] [place] [address] Care Team Providers Care Restaurant Greeter Name Role Phone GerardoKathy nicolas MARÍA Primary Care Provider [phone] Encounter Details Date Type Department Care Team (Late st Contact Info) Description 08/05/2019 Telephone Pulmonary [facility] [place] [address] Kellee Wylie MD [facility] [place] [address] Social History Tobacco Use Types Packs/Day Years Used Date Smoking Tobacco: Every Day Cigarettes 1 42 Smokeless Tobacco: Never Comments:5 cigarettes a day Sex and Gender Information Value Date Recorded Sex Assigned at Not on file Gender Identity Not on file Sexual Orientation Not on file documented as of this encounter Miscellaneous Notes * Telephone Encounter - Kellee Wylie MD - 08/05/2019 10:16 AM EDT Attempted to call patient regarding presence of PET avid pulmonary nodule. Was not able to leave a message as voice mail is full and not personalized. Will attempt a phone call again. Patient has f/u appt scheduled with me on Sep 03 documented in this encounter Plan of Treatment Not on file documented as of this encounter Visit Diagnoses Not on filedocumented in this encounter Care Teams Restaurant Greeter Relationship Specialty Start Date End Date Kathy Wright, MARÍA PCP - General Family Medicine 04/22/19 documented as of this encounter
--- OUTSIDE RECORDS SUMMARY | 2024-06-24 01:12 | XMS_ITS | Encounter Summary ---
[place] [address] Care Team Providers Care Sales Agent Food Vending Service Name Role Phone GerardoKathy nicolas Butch DANIEL Primary Care Provider [phone] Encounter Details Date Type Department Care Team (Late st Contact Info) Description 09/15/2019 Orders [place] [address] Anna Owen, RN Nodule of lower lobe of right lung; Hypertension, unspecified type Social History Tobacco Use [...] documented as of this encounter Results * Creatinine (09/16/2019 7:20 AM EDT) Creatinine 0.93 0.70 - 1.20 mg/dL [facility] Estimated GFR 67 >=60 mL/min/1.7 3 m?? [facility] Comment: The eGFR was calculated using the CKD-EPI equation. As with all creatinine based estimates of kidney function, eGFR values calculated with the CKD-EPI equation are not accurate in patients with acute kidney failure, extremes of body mass or the acutely ill. http://reBuy.de/[facility] TULSAnkf eGFR 78 >=60 mL/min/1.7 3 m?? [facility] Comment: The eGFR was calculated using the CKD-EPI equation. As with all creatinine based estimates of kidney function, eGFR values calculated with the CKD-EPI equation are not accurate in patients with acute kidney failure, extremes of body mass or the acutely ill. http://reBuy.de/DHMCnkf Blood specimen (specimen) 09/16/2019 7:20 AM EDT 09/16/2019 8:20 AM EDT Narrative Resulting Agency Comment Spec In Lab Juan Ny MD CHEMISTRY ORDERABLE S [facility] [place] [address] documented in this encounter Visit Diagnoses Diagnosis Nodule of lower lobe of right lung Hypertension, unspecified type documented in this encounter Care Teams Sales Agent Food Vending Service Relationship Specialty Start Date End Date Kathy Wright APRN PCP - General Family Medicine 04/22/19 documented as of this encounter
--- OUTSIDE RECORDS SUMMARY | 2024-06-24 01:12 | XMS_ITS | Encounter Summary ---
[place] [address] Care Team Providers Care Maker Up Folding Name Role Phone Kathy Wright APRN Primary Care Provider [phone] Encounter Details Date Type Department Care Team (Late st Contact Info) Description 07/02/2019 Orders [place] [address] Andrea Martini Social History Tobacco Use Types [...] on filedocumented in this encounter Care Teams Maker Up Folding Relationship Specialty Start Date End Date Kathy Wright APRN PCP - General Family Medicine 04/22/19 documented as of this encounter
--- OUTSIDE RECORDS SUMMARY | 2024-06-24 01:12 | XMS_ITS | Encounter Summary ---
Author Organization [facility] [place] [address] Care Team Providers Care Independent Producer Name Role Phone Kathy Wright MARÍA Primary Care Provider [phone] Reason for Referral * Diagnostic Test (Routine) - Closed Specialty Diagnoses / Procedures Referred By Contac t Referred To Contact Radiology Diagnoses Lung nodule Procedures NM PET CT Skull Base to Mid-thigh Kellee Wylie MD [facility] [place] [address] [place] [address] Referral ID Status Reason Start Date Expiration Date V isits Requested Visits Authorized [id number] Closed Specialty Service Requested 07/14/2019 10/12/2019 1 1 Reason for Visit * Diagnostic Test (Routine) - Closed Specialty Diagnoses / Procedures Referred By Contac t Referred To Contact Radiology Diagnoses Lung nodule Procedures NM PET CT Skull Base to Mid-thigh Kellee Wylie MD [facility] [place] [address] [place] [address] Referral ID Status Reason Start Date Expiration Date V isits Requested Visits Authorized [id number] Closed Specialty Service Requested 07/14/2019 10/12/2019 1 1 Encounter Details Date Type Department Care Team (Latest Contact Info) Description 08/04/2019 11:57 AM EDT Hospital Encounter Nuclear Medicine [place] [facility] [place] [address] Kellee Wylie MD [facility] [place] [address] Lung nodule Discharge Disposition: Home Social History [...] as of this encounter Progress Notes * Kellee Wylie MD - 08/04/2019 11:57 AM EDT Dustiny, I tried calling this patient regarding PET/CT results. She has one single PET avid nodule highly concerning for primary lung malignancy. I was not able to reach her and I am gone next week on vacation. She has a f/u with me scheduled on September 03 which is fine to wait but my plan was to refer her to thoracic surgery for resection if she is OK with that. If she calls back, let her know that I will call her after I get back ie to discuss the results and next steps documented in this encounter Plan of Treatment Not on file documented as of this encounter Procedures Procedure Name Priority Date/Time Associated Diagnosis Comments NM PET CT SKULL BASE TO MID-THIGH ([facility]) Routine 08/04/2019 1:45 PM EDT Lung nodule POCT GLUCOSE Routine 08/04/2019 12:12 PM EDT documented in this encounter Results * NM [...] below. ? Electronically signed by: Michelle Rogers [facility] ([phone]), at 08/04/2019 6:10 PM Narrative 08/04/2019 6:10 PM EDT EXAMINATION: NM PET CT SKULL BASE TO MID-THIGH ? CLINICAL HISTORY: lung nodule TECHNIQUE: Following IV injection of 15-bnohor-0-deoxyglucose (FDG) a standard uptake of approximately 60 [...] Chest CT 07/02/2019. CT abdomen pelvis or [facility] 04/18/2019. FINDINGS: HEAD/NECK: Normal activity [...] lung nodule TECHNIQUE: Following IV injection of 08-xrnudi-6-deoxyglucose (FDG) astandard uptake of approximately 60 minutes, [...] Chest CT 07/02/2019. CT abdomen pelvis or [facility] 04/18/2019. FINDINGS: HEAD/NECK: Normal activity [...] number below. Electronically signed by: Michelle Rogers [facility]([phone]), at 08/04/2019 6:10 PM Kellee Cagle MD IMG PET ORDERABLE S * POCT Glucose (08/04/2019 12:12 PM EDT) POC Glucose 105 65 - 199 mg/dL [facility] Comment: Supplemental ranges: <140 mg/dL before meals <180 mg/dL all other times of the day Blood specimen (specimen) 08/04/2019 12:12 PM EDT 08/04/2019 12:12 PM EDT Kellee Cagle MD POINT OF CARE YANI T ORDERABLES [facility] [place] [address] documented in this encounter Visit Diagnoses Diagnosis Lung nodule Solitary pulmonary nodule documented in this encounter Administered Medications Inactive Administered Medications - up to 3 most recent administrations Medication Order MAR Action Action Date Dose Rate Site fludeoxyglucose (F-18) FDG injection 12.3 mCi 12.3 mCi, Intravenous, ONCE PRN, 1 dose, Starting on Fri08/04/19 at 1220, Until Fri08/04/19 at 1220, Per Protocol, Routine Given 08/04/2019 12:20 PM EDT 12.3 mCi Right Arm documented in this encounter Care Teams Independent Producer Relationship Specialty Start Date End Date Kathy Wright APRN PCP - General Family Medicine 04/22/19 documented as of this encounter
--- NOTE | 2024-06-24 15:20 | DI.CT_ITS ---
Exam(s) CT RENAL COLIC WO EXAM: CT RENAL COLIC WO CLINICAL HISTORY: R10.9 abd pain, Acute flank pain; r/o kidney stone. TECHNIQUE: Imaging Protocol: Axial computed tomography images with coronal and sagittal reformatted images were created and reviewed. COMPARISON: CT CT ABDOMEN PELVIS WO from 04/06/2020 FINDINGS: ABDOMEN: Lung Bases: Normal where visualized. Liver: There is fatty infiltration of the liver. No measurable mass. Gallbladder and biliary tract: No radiodense calculus or biliary ductal dilation. Pancreas: Normal density, no abnormal calcifications or inflammatory process. Spleen: Calcified granulomas again seen in the spleen. Kidneys: There is again seen right renal cortical atrophy.No radiodense stones or obstructive uropath y. No masses seen. Adrenal glands: No mass is seen. Lymph nodes: Within normal limits. Abdominal Aorta: Abdominal portion non-dilated. Atherosclerotic calcification is present. PELVIS: Bladder:Symmetric distention, no gross wall thickening. Bowel: There are scattered diverticula in the colon but no evidence of acute diverticulitis. Appendi x is unremarkable. No evidence of bowel obstruction or bowel wall thickening. Peritoneal cavity: No ascites, collection or mesenteric inflammatory response. No free air. Reproductive organs: Unremarkable as visualized. Bones: Within normal limits. There is a stable L1 compression fracture deformity. No acute fracture is identified at this time. Soft Tissues: Within normal limits. IMPRESSION: 1. No acute abdominal pelvic process. 2. No evidence of nephrolithiasis or hydronephrosis. 3. Normal appendix. RADIATION DOSE DELIVERED: Total DLP DATA REPOSITORY: All CT scans at this facility are submitted to the National Radiology Data Registry (NRDR) Dose Index Registry (DIR) with the [employer] (ACR). RADIATION OPTIMIZATION: All CT scans at this facility use at least one of these dose optimization te chniques: automated exposure control; mA and/or kV adjustment per patient size (includes targeted exa ms where dose is matched to clinical indication); or iterative reconstruction.
== END ==
PROVIDERS: PCP Nurse Practitioner Family; Visit Provider Nurse Practitioner Family
DX: R10.9 Unspecified abdominal pain (principal)
CPT/HCPCS: 74176

== ENCOUNTER 2024-07-28 01:59 | Outpatient (CLI) | payer MEDICAID, SELFPAY ==
--- OUTSIDE RECORDS SUMMARY | 2024-07-28 02:07 | XMS_ITS | Clinical Summary ---
Author Organization [facility] Address [facility] [place] [address] Care Team Providers Care Homogenizer Operator Name Role Phone Kathy Wright Butch DANIEL Primary Care Provider [phone] Allergies Active Allergy Reactions Criticality Noted Date [...] Date/Time Associated Diagnosis Comments COMPREHENSIVE METABOLIC PANEL Routine 01/19/2024 from Last 3 Months or Most Recently Relevant to Health Maintenance Results * (ABNORMAL) Comprehensive metabolic panel (non-fasting) (01/19/2024) Glucose 141 Blood Urea Nitrogen 12 Creatinine 1.4(A) 0.55 - 1.02 Sodium 142 Potassium 4.2 Chloride 104 Calcium 10.0 Albumin 3.5 Bilirubin, Total 0.5 Alkaline Phosphatase 105 Aspartate Aminotransferase 26 Alanine Aminotransferase 31 Blood 01/19/2024 Historical Provider CHEMISTRY ORDERAB LES from Last 3 Months or Most Recently Relevant to Health Maintenance Advance Directives Documents on File Type Date Recorded Patient Cardiac Technician Expl onur Advance Directives and Sumi g Will 09/22/2019 3:01 PM 02/22/2019 * Full Code (Latest Code Status on File) Date Activated Date Inactivated Comments 10/06/2019 6:36 PM 10/08/2019 4:40 PM Question Answer Comments Does patient have capacity to make decision: Yes Healthcare Agents on File Name Relationship Healthcare Agent [facility] Communication Blaze Best Child Health Care Agent Care Teams Homogenizer Operator Relationship Specialty Start Date End Date Kathy Wright APRN PCP - General Family Medicine 04/22/19
--- OUTSIDE RECORDS SUMMARY | 2024-07-28 02:07 | XMS_ITS | Encounter Summary ---
[place] [address] Care Team Providers Care Chief Architect Name Role Phone Kathy Wright APRN Primary Care Provider [phone] Encounter Details Date Type Department Care Team (Late st Contact Info) Description 02/21/2023 Telephone Neph[place] [address] Misti Lopes Social History Tobacco Use Types [...] on filedocumented in this encounter Care Teams Chief Architect Relationship Specialty Start Date End Date Kathy Wright, MARÍA PCP - General Family Medicine 04/22/19 documented as of this encounter
--- OUTSIDE RECORDS SUMMARY | 2024-07-28 02:07 | XMS_ITS | Encounter Summary ---
Author Organization [facility] Address [facility] [place] [address] Care Team Providers Care Yacht Master Name Role Phone Kathy Wright BULK PIGMENT REDUCER Primary Care Provider [phone] Reason for Referral * Diagnostic Test (Routine) - Authorized Specialty Diagnoses / Procedures Referred By Janie cassidy Referred To Contact Radiology Diagnoses Non-small cell lung cancer, right Procedures CT Chest wo Contrast (Generic) Toño West MD [facility] [place] [address] Referral ID Status Reason Start Date Expiration Date Visits Requested Visits Authorized [id number] Authorized Specialty Service Requested 12/08/2023 06/07/2025 1 1 Encounter Details Date Type Department Care Team (Late st Contact Info) Description 12/08/2023 Orders Only [place] [address] Toño West MD [facility] [place], [place] [id number] Non-small cell lung cancer, right (Primary Dx) [...] Primary documented in this encounter Care Teams Yacht Master Relationship Specialty Start Date End Date Kathy Wright APRN PCP - General Family Medicine 04/22/19 documented as of this encounter
--- OUTSIDE RECORDS SUMMARY | 2024-07-28 02:07 | XMS_ITS | Encounter Summary ---
[place] [address] Care Team Providers Care Dye Range Feeder Name Role Phone Kathy Wright APRN Primary Care Provider [phone] Encounter Details Date Type Department Care Team (Late st Contact Info) Description 02/21/2023 Orders Only [place] [address] Lico Wing MD [facility] [place] [address] Hypercalcemia Social History Tobacco Use Types Packs/Day [...] Hypercalcemia documented in this encounter Care Teams Dye Range Feeder Relationship Specialty Start Date End Date Kathy Wright APRN PCP - General Family Medicine 04/22/19 documented as of this encounter
--- OUTSIDE RECORDS SUMMARY | 2024-07-28 02:07 | XMS_ITS | Encounter Summary ---
Author Organization [facility] Address [address] [place] [address] Care Team Providers Care Lathe Machine Operator Name Role Phone Unavailable Primary Care Provider Unavailabl e Encounter Details Date Type Department Care Team (Late st Contact Info) Description 01/22/2010 Results Only [facility] Laboratory Services - [facility] ([facility]) [address] [place] [address] Marcela Arceo, [facility] [address] [facility] [address] [place] [address] Social History Tobacco Use Types [...] 52, 56, 58, 59, and 68. [facility] Report Status Final 01/31/2010 [facility] 01/22/2010 8:30 EST 01/29/2010 8:30 EST Marcela Arceo ROOM SERVICE FOOD SERVICE ATTENDANT MICROBIOLOGY - GENER AL ORDERABLES [facility] [address] [address] * CYTOPATHOLOGY (01/22/2010 0:00 EST) Pathology Report: CYTOPATHOLOGY REPORT ? Reports generated via electronic interface contain original data; ? however they are lacking the format of the original report. ? Caution should be taken when reading/interpreti ng unformatted reports. ? Name: ? AYLIN ALFONSO ? Accession #: ? [id number] ? : ? 1960 (Age: 49) ??F ?Collect Date: ? 01/22/2010 ? Location: ? [facility] ? Receive Date: ? 01/23/2010 ? Provider: ?MARCELA PRIYANKA ROOM SERVICE FOOD SERVICE ATTENDANT ? Copy to: ? Specimen/Source: ?Pap Test, [...] bacterial vaginosis. ? EDUCATIONAL NOTES/RECOMMENDATI ONS ? FOR[facility]LY [facility] recommends following the 2006 Consensus Guidelines for the Management of Women with Abnormal Cervical Cancer Screening Tests (JLGTD, ? 2007;11(4:201-222 ). ??Consensus guidelines are available online at ? www.ASCCP.org. ? Document reviewed and electronically signed by: ? STUART ALICEA MD ? Report Date: ??01/26/2010 13:08 ? End of Report ? [facility] 01/22/2010 01/23/2010 Marcela Arceo ROOM SERVICE FOOD SERVICE ATTENDANT PATHOLOGY ORDERABLES Performing Organization Address City/State/[facility] Co de Phone Number [facility] [address] [place] [address] documented in this encounter Visit Diagnoses Not on filedocumented in this encounter
--- OUTSIDE RECORDS SUMMARY | 2024-07-28 02:07 | XMS_ITS | Encounter Summary ---
Author Organization [facility] Address [address] [place] [address] Care Team Providers Care Homeland Security Program Specialist Name Role Phone Alejandro Early MD Primary Care Provider [phone] Encounter Details Date Type Department Care Team (Late st Contact Info) Description 07/03/2000 Results Only [facility] - Maple conversion [address] [place] [address] Thor Mazariegos MD [address] [facility] [address] [address] Social History Tobacco Use Types [...] ? AYLIN ALFONSO ? Accession #: ? [id number] : ? 1960 (Age: 39) ??F ?Collect [...] Mazariegos MD PATHOLOGY ORDERABLES Performing Organization Address City/State/[facility] Co de Phone Number [facility] [address] [place] [address] documented in this encounter Visit Diagnoses Not on filedocumented in this encounter Care Teams Homeland Security Program Specialist Relationship Specialty Start Date End Date Alejandro Early MD [address] [place] [address] [place] [address] PCP - General 01/29/10 01/15/11 documented as of this encounter
--- OUTSIDE RECORDS SUMMARY | 2024-07-28 02:07 | XMS_ITS | Encounter Summary ---
Author Organization [facility] Address [address] [place] [address] Care Team Providers Care Hospital Chief Executive Officer Name Role Phone Anahy Xiao NP Primary Care Provider [phone] Encounter Details Date Type Department Care Team (Late st Contact Info) Description 01/30/2012 Results Only [facility] Laboratory Services - [facility] ([facility] [address] [place], [place] [address] Marcela Arceo, ELECTRICAL INSPECTOR [address] [facility] [place] [address] Social History Tobacco Use Types Packs/Day [...] ? KADEN AYLIN ? Accession #: ? [id number] : ? 1960 (Age: 51) ??F ?Collect Date: ? 01/30/2012 Location: ? [facility] ? Receive Date: ? 01/31/2012 Provider: ?MARCELA ARCEO ELECTRICAL INSPECTOR Copy to: ?ANAHY XIAO ASP NET PROGRAMMER ? Specimen/Source: ?Pap Test, Cervix/Endocervix, ThinPrep Imaging [...] Report [facility] 01/30/2012 01/31/2012 Marcela Arceo ELECTRICAL INSPECTOR PATHOLOGY ORDERABLES [facility] [address] [place] [address] documented in this encounter Visit Diagnoses Not on filedocumented in this encounter Care Teams Hospital Chief Executive Officer Relationship Specialty Start Date End Date Anahy Xiao, [facility] [address] [place] [address] PCP - General 01/16/11 documented as of this encounter
--- OUTSIDE RECORDS SUMMARY | 2024-07-28 02:07 | XMS_ITS | Encounter Summary ---
Author Organization [facility] Address [address] [place] [address] Care Team Providers Care Quality Rep Name Role Phone Alejandro Early MD Primary Care Provider [phone] Encounter Details Date Type Department Care Team (Late st Contact Info) Description 07/09/2001 Results Only [facility] - Maple conversion [address] [place] [address] Thor Mazariegos MD [address] [facility] [address] [address] Social History Tobacco Use Types [...] ? AYLIN ALFONSO ? Accession #: ? [id number] : ? 1960 (Age: 40) ??F ?Collect [...] Mazariegos MD PATHOLOGY ORDERABLES Performing Organization Address City/State/[facility] Co de Phone Number [facility] [address] [place] [address] documented in this encounter Visit Diagnoses Not on filedocumented in this encounter Care Teams Quality Rep Relationship Specialty Start Date End Date Alejandro Early MD [address] [place] [address] [place] [address] PCP - General 01/29/10 01/15/11 documented as of this encounter
--- OUTSIDE RECORDS SUMMARY | 2024-07-28 02:07 | XMS_ITS | Encounter Summary ---
Author Organization [facility] Address [address] [place] [address] Care Team Providers Care Paint Line Production Supervisor Name Role Phone Anahy Viveros NP Primary Care Provider Encounter Details Date Type Department Care Team (Late st Contact Info) Description 12/26/2023 Lab Requisition [facility] Pathology & Laboratory Medicine - [address] [address] Andrew Deng MD [address] [place] [address], [address] [place], [place] [id number] Dysphasia Social History Tobacco Use Types Packs/Day [...] management options, if applicable. 12/30/2023 10:19 EST [facility] Final Diagnosis A. STOMACH, ANTRUM, [...] organisms identified on routine stains. 12/30/2023 10:19 [facility] Attestation By the signature below, the attending physician certifies that they have 1) personally conducted a gross and/or microscopic examination of the described specimen(s), and/or personally interpreted the results of laboratory testing of the described specimen(s), and 2) personally rendered or confirmed the above diagnosis. 12/30/2023 10:19 [facility] at 1019 Clinical History R/O H. pylori 12/30/2023 10:19 [facility] Gross Description A. [...] processing. JOSE TREJO(ASCP) 12/29/2023 7:49 12/30/2023 10:19 [facility] Performing Lab [facility] 10:19 [facility] Scanned Images 12/30/2023 10:19 [facility] Tissue ESOPHAGEAL STRUCTURE / Unknown 12/26/2023 12:00 EST 12/26/2023 17:08 EST Tissue specimen (specimen) STOMACH STRUCTURE / Unknown 12/26/2023 12:00 EST 12/26/2023 17:08 EST Tissue specimen (specimen) ESOPHAGEAL STRUCTURE / Unknown 12/26/2023 12:00 EST 12/26/2023 17:08 EST Andrew Deng MD PATHOLOGY ORDERABLES [facility] [address] [place] [address] documented in this encounter Visit Diagnoses Diagnosis Dysphasia Other speech disturbance documented in this encounter Care Teams Paint Line Production Supervisor Relationship Specialty Start Date End Date Anahy Viveros NP [facility] [address] [place], [place] [address] PCP - General 01/16/11 documented as of this encounter
--- OUTSIDE RECORDS SUMMARY | 2024-07-28 02:07 | XMS_ITS | Encounter Summary ---
Author Organization [facility] Address [address] [place] [address] Care Team Providers Care Slag Mixer Name Role Phone Anahy Viveros NP Primary Care Provider [phone] Encounter Details Date Type Department Care Team (Late st Contact Info) Description 01/28/2011 Results Only [facility] Laboratory Services - [facility] ([facility]) [address] [place], [place] [address] Marcela Arceo, DIPLOMA MEDICAL ASSISTANT [address] [place] [address] Social History Tobacco Use Types Packs/Day [...] ? AYLIN ALFONSO ? Accession #: ? [id number] ? : ? 1960 (Age: 50) ??F ?Collect Date: ? 01/28/2011 ? Location: ? [facility] ? Receive Date: ? 01/29/2011 ? Provider: ?MARCELA PRIYANKA DIPLOMA MEDICAL ASSISTANT ? Copy to: ? Specimen/Source: ?Pap Test, [...] [facility] 01/28/2011 01/29/2011 Marcela Arceo DIPLOMA MEDICAL ASSISTANT PATHOLOGY ORDERABLES [facility] [address] [place] [address] documented in this encounter Visit Diagnoses Not on filedocumented in this encounter Care Teams Slag Mixer Relationship Specialty Start Date End Date Anahy Viveros NP [facility] [address] [place] [address] PCP - General 01/16/11 documented as of this encounter
--- OUTSIDE RECORDS SUMMARY | 2024-07-28 02:07 | XMS_ITS | Encounter Summary ---
Author Organization [facility] Address [address] [place] [address] Care Team Providers Care Booky Name Role Phone Anahy Viveros NP Primary Care Provider [phone] Encounter Details Date Type Department Care Team (Late st Contact Info) Description 02/12/2013 Results Only [facility] Laboratory Services - [facility] ([facility]) [address] [place], [place] [address] Marcela Arceo, [facility] [address] [facility] [place] [address] Social History Tobacco Use Types Packs/Day [...] ? KADEN AYLIN ? Accession #: ? [id number] ? : ? 1960 (Age: 52) ??F ?Collect Date: ? 02/12/2013 ? Location: ? [facility] ? Receive Date: ? 02/15/2013 ? Provider: MARCELA ARCEO [facility] Copy to: ? Final Report SPECIMEN ADEQUACY [...] types 16,18,31,33,35, 39,45,51,52,56,58, 59,66, and 68 by pharmacists mediated amplification. Comments Document reviewed and electronically signed by: ? System Interface ? Report date: 02/19/2013 By the signature above, the attending physician certifies that he/she has personally conducted a gross and/or microscopic examination of the described specimens and rendered or confirmed the above diagnosis. End of Report [facility] 02/12/2013 02/15/2013 Marcela Arceo INTELLIGENT SYSTEMS ENGINEER PATHOLOGY ORDERABLES [facility] [address] [place] [address] documented in this encounter Visit Diagnoses Not on filedocumented in this encounter Care Teams Booky Relationship Specialty Start Date End Date Anahy Viveros, [facility] [address] [place] [address] PCP - General 01/16/11 documented as of this encounter
--- OUTSIDE RECORDS SUMMARY | 2024-07-28 02:07 | XMS_ITS | Encounter Summary ---
Author Organization [facility] Address [address] [place] [address] Care Team Providers Care Stem Shaper Name Role Phone Anahy Viveros NP Primary Care Provider [phone] Encounter Details Date Type Department Care Team (Late st Contact Info) Description 12/16/2022 Lab Requisition [facility] Pathology & Laboratory Medicine - [address] [address] Outr Resulting Lab, Provider Social History Tobacco [...] A1c 6.9(H) <5.7 % 12/17/2022 18:56 EST [facility] Comment: Glycemic Status References: Normal: ??<5.7% Pre-Diabetes: ??5.7% - 6.4% Diagnostic of Diabetes: ??> or = 6.5% (if confirmed) Est Avg Glucose 151 mg/dL 3 18:56 EST [facility] Comment:The eAG represents t he A1c result expressed as average glucose in mg/dL. Blood VENOUS BLOOD / Unknown 12/16/2022 11:40 EST 12/17/2022 17:10 EST Provider Outr Resulting Lab CHEMISTRY & BLOOD GAS ORDERABLES Performing Organization Address City/State/[facility] Co de Phone Number [facility] [address] [place] [address] documented in this encounter Visit Diagnoses Not on filedocumented in this encounter Care Teams Stem Shaper Relationship Specialty Start Date End Date Anahy Viveros NP [facility] [address] [place], [place] [address] PCP - General 01/16/11 documented as of this encounter
--- OUTSIDE RECORDS SUMMARY | 2024-07-28 02:07 | XMS_ITS | Encounter Summary ---
Author Organization [facility] Address [address] [place] [address] Care Team Providers Care Oracle Wms Consultant Name Role Phone Felice Anahy Santa MIRANDA Primary Care Provider [phone] Encounter Details Date Type Department Care Team (Late st Contact Info) Description 08/02/2011 Results Only [facility] Laboratory Services - [facility] ([facility]) [address] [place], [place] [address] Flori Edwards, [address] [facility] [address] [place], [place] [address] Social History Tobacco Use Types Packs/Day Years [...] ? KADEN, AYLIN ? Accession #: ? [id number] ? : ? 1960 (Age: 50) ??F ? Collect Date: ? 08/02/2011 ? Location: ? [facility] ? Receive Date: ? 08/02/2011 ? Provider: FLORI EDWARDS DO ? Copy to: ANAHY XIAO CONTINUOUS LINTER DRIER OPERATOR ? Final Pathologic Diagnosis: ? A. ?Small [...] PATHOLOGY ORDER KATHY [facility] [address] [place] [address] documented in this encounter Visit Diagnoses Not on filedocumented in this encounter Care Teams Oracle Wms Consultant Relationship Specialty Start Date End Date Anahy Xiao, CONTINUOUS LINTER DRIER OPERATOR [facility] [address] [place] [address] PCP - General 01/16/11 documented as of this encounter
--- OUTSIDE RECORDS SUMMARY | 2024-07-28 02:07 | XMS_ITS | Encounter Summary ---
Author Organization [facility] Address [address] [place] [address] Care Team Providers Care Gameplay Engineer Name Role Phone Alejandro Early MD Primary Care Provider [phone] Encounter Details Date Type Department Care Team (Late st Contact Info) Description 09/16/2003 Results Only [facility] - Maple conversion [address] [place] [address] Thor Mazariegos MD [address] [facility] [address] [address] Social History Tobacco Use Types [...] ? AYLIN ALFONSO ? Accession #: ? [id number] : ? 1960 (Age: 43) ??F ?Collect [...] [facility] Co de Phone Number [facility] [address] [place] [address] documented in this encounter Visit Diagnoses Not on filedocumented in this encounter Care Teams Gameplay Engineer Relationship Specialty Start Date End Date Alejandro Early MD [address] [place] [address] [place] [address] PCP - General 01/29/10 01/15/11 documented as of this encounter
--- OUTSIDE RECORDS SUMMARY | 2024-07-28 02:07 | XMS_ITS | Encounter Summary ---
Author Organization [facility] Address [address] [place] [address] Care Team Providers Care Brand Advocate Name Role Phone Anahy Viveros NP Primary Care Provider [phone] Encounter Details Date Type Department Care Team (Late st Contact Info) Description 11/09/2018 Results Only [facility] [phone] Marcela Arceo, [facility] [address] [facility] [address] Social History Tobacco Use Types Packs/Day Years [...] ? GWEN ALFONSOIE ? Accession #: ? [id number] ? : ? 1960 (Age: 58) ??F ?Collect Date: ? 11/09/2018 ? Location: ? [facility] ? Receive Date: ? 11/10/2018 ? Provider: MARCELA ARCEO LENS GRINDER APPRENTICE Copy to: SIOBHAN GARCIA ? Final Report [...] types 16,18,31,33,35, 39,45,51,52,56,58, 59,66, and 68 by sales agent protective service mediated amplification. Comments Document reviewed and electronically signed by: ? System Interface ? Report date: 11/17/2018 By the signature above, the attending physician certifies that he/she has personally conducted a gross and/or microscopic examination of the described specimens and rendered or confirmed the above diagnosis. End of Report [facility] 11/09/2018 11/10/2018 Marcela Arceo LENS GRINDER APPRENTICE PATHOLOGY ORDERABLES [facility] [address] [place] [address] documented in this encounter Visit Diagnoses Not on filedocumented in this encounter Care Teams Brand Advocate Relationship Specialty Start Date End Date Anahy Viveros NP [facility] [address] [place], [place] [id number] PCP - General 01/16/11 documented as of this encounter
--- OUTSIDE RECORDS SUMMARY | 2024-07-28 02:07 | XMS_ITS | Referral Summary ---
Author Organization [facility] Address [address] [place] [address] Care Team Providers Care Biomass Power Plant Superintendent Name Role Phone Anahy Viveros NP Primary Care Provider [phone] Social History Tobacco Use Types Packs/Day Years Used Date Smoking Tobacco: Never Assessed Interpersonal Safety Answer Date Record ed Physically Hurt Never 07/02/2020 Verbally Threaten Not on file 07/02/2020 Sex and Gender Information Value Date Recorded Sex Assigned at Not on file Gender Identity Not on file Sexual Orientation Not on file Plan of Treatment Not on file Care Teams Biomass Power Plant Superintendent Relationship Specialty Start Date End Date Anahy Viveros NP [facility] [address] [place], [place] [address] PCP - General 01/16/11
--- OUTSIDE RECORDS SUMMARY | 2024-07-28 02:07 | XMS_ITS | Encounter Summary ---
Author Organization [facility] [place] [address] Care Team Providers Care Process Environmental Technician Name Role Phone Kathy Wright APRN Primary Care Provider [phone] Encounter Details Date Type Department Care Team (Late st Contact Info) Description 08/12/2023 2:00 PM EDT Office Visit Nephrology [place] [address] Lico Wing MD [facility] [place] [address] Stage 3b chronic kidney disease (Primary Dx); [...] Everywhere. * Renal Disease: Chronic: General Info (Greek) documented in this encounter Progress Notes * Lico Wing MD - 08/12/2023 2:00 PM EDT Images from the original note were not included. [facility] DEPARTMENT OF NEPHROLOGY AND HYPERTENSION OUTPATIENT [...] 2.78) performed by Juan Ny MD at [facility] MAIN OR PRO INJECTION ANES AGENT &/ STEROID INTERCOSTAL NERVE EA ADDL LEVEL Right 10/06/2019 NERVE BLOCK, INTERCOSTAL NERVE, MULTIPLE (WRVU 1.68) performed by Juan Ny MD at [facility] MAIN OR PRO THORACOSCOPY SURG LOBECTOMY Right 10/06/2019 @ROBOT XI THORACOSCOPY,SURGICAL,W\LOBECTOMY,TOTAL OR SEGMENTAL (WRVU 24.64) performed by Juan Ny MD at [facility] MAIN OR PRO THORACOSCOPY WITH MEDIASTINAL AND REGIONAL LYMPHADENECTOMY Right 10/06/2019 @ROBOT XI THORACOSCOPY,SURG; W/MEDIASTINAL& REGIONAL LYMPHADENECTOMY (WRVU 4.12) performed by Juan Ny MD at [facility] MAIN OR PRO THORACOSCOPY WITH WEDGE RESECTION AND ANATOMIC LUNG RESECTN Right 10/06/2019 @ROBOT XI THORACOSCOPY,SURG; W/DX WEDGE RESC W/ANATOMIC LUNG RESC (WRVU 3) performed by Juan Ny MD at [facility] MAIN OR FMX: Family History Problem Relation Age of Onset Lung Cancer Father smoker Other Sister questionable goiter in neck SOCIALHX: Social History Socioeconomic History Marital status: Spouse name: Not on file Number of children: Not on file Years of education: Not on file Highest education level: Not on file Occupational History Occupation: disability Comment: on disability since 2013 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 PGY-V Nephrology-Hypertension Fellow Page # [phone] floor, Hat Cleaner [address] [place] [address] * Jeovany Obrien MD - 08/12/2023 2:00 [...] Procedure Name Priority Date/Time Associated Diagnosis Comments PROTEIN/CREATININE RATIO, URINE STAT 08/12/2023 2:00 PM EDT Stage 3b chronic kidney disease U ALBUMIN/CRE RATIO Routine 08/12/2023 2 :00 PM EDT Stage 3b chronic kidney disease documented in this encounter Results * U Albumin/Cre Ratio (08/12/2023 2:00 PM EDT) Albumin / Creatinin Ratio, Urine 12 0 - 29 mcg/mg Cr [facility] Comment: Reference Ranges: <30 [...] [employer] Supplements (2012) 2, 357? 362 Albumin, Urine 6.7 mg/L [facility] Creatinine, Urine 58 mg/dL [facility] Urine 08/12/2023 2:00 PM EDT 08/12/2023 4:39 PM EDT Narrative Resulting Agency Comment Spec In Lab Jeovany Obrien MD URINE ORDERABLES [facility] [place] [address] * Protein/Creatinine Ratio, urine (08/12/2023 2:00 PM EDT) Creatinine, Urine 58 mg/dL [facility] Protein, Urine <6 0 - 12 mg/dL [facility] Protein / Creatinine Ratio, Urine <0.1 ratio [facility] Urine 08/12/2023 2:00 PM EDT 08/12/2023 4:39 PM EDT Narrative Resulting Agency Comment Spec In Lab Jeovany Obrien MD URINE ORDERABLES Performing Organization Address [facility] Co de Phone Number [facility] [place] [address] * (ABNORMAL) PTH (08/12/2023 1:01 PM EDT) Parathyroid Hormone 117(H) 15 - 65 pg/mL [facility] Blood 08/12/2023 1:01 PM EDT 08/12/2023 1:24 PM EDT Narrative Resulting Agency Comment Spec In Lab Samuel Little MD CHEMISTRY ORDERABLES Performing Organization Address [facility] Co de Phone Number [facility] [place] [address] * (ABNORMAL) Free Light Chains, Serum (08/12/2023 1:01 PM EDT) Gerald Free Light Chain 3.58(H) 0.72 - 2.75 mg/dL [facility] Lambda Free Light Chain 2.32(H) 0.57 - 2.15 mg/dL [facility] Gerald/Lambda FLC Ratio 1.5431 0.4000 - 2.5800 [facility] Blood 08/12/2023 1:01 PM EDT 08/12/2023 1:25 PM EDT Narrative Resulting Agency Comment Spec In Lab Samuel Little MD CHEMISTRY ORDERABLES Performing Organization Address [facility] Co de Phone Number [facility] [place] [address] * Protein Electrophoresis, serum (08/12/2023 1:01 PM EDT) Total Prot Electrophoresis 6.8 6.1 - 8.0 g/dL [facility] Albumin Electrophoresis 4.22 3.20 - 5.20 g/dL [facility] Alpha 1 Globulin 0.20 0.10 - 0.30 g/dL [facility] Alpha 2 Globulin 0.79 0.40 - 0.90 g/dL [facility] Beta Globulin 0.82 0.50 - 1.00 g/dL [facility] Gamma Globulin 0.77 0.50 - 1.30 g/dL [facility] M1 Band None Detected None Detected [facility] Blood 08/12/2023 1:01 PM EDT 08/12/2023 1:25 PM EDT Narrative Resulting Agency Comment Spec In Lab Samuel Little MD CHEMISTRY ORDERABLES Performing Organization Address [facility] de Phone Number [facility] [place] [address] * Phosphorus (08/12/2023 1:01 PM EDT) Phosphorus 3.2 2.5 - 4.5 mg/dL [facility] Blood 08/12/2023 1:01 PM EDT 08/12/2023 1:25 PM EDT Narrative Resulting Agency Comment Spec In Lab Samuel Little MD CHEMISTRY ORDERABLES Performing Organization Address [facility] de Phone Number [facility] [place] [address] * Magnesium (08/12/2023 1:01 PM EDT) Magnesium 0.86 0.69 - 1.07 mmol/L [facility] Blood 08/12/2023 1:01 PM EDT 08/12/2023 1:25 PM EDT Narrative Resulting Agency Comment Spec In Lab Samuel Little MD CHEMISTRY ORDERABLES Performing Organization Address [facility] de Phone Number [facility] [place] [address] * (ABNORMAL) Comprehensive metabolic panel (non-fasting) (08/12/2023 1:01 PM EDT) Glucose 154 65 - 199 mg/dL [facility] Comment:Diabetes: >=200 mg/d L plus symptoms Blood Urea Nitrogen 15 8 - 18 mg/dL [facility] Creatinine 1.36(H) 0.70 - 1.20 mg/dL [facility] Sodium 141 135 - 145 mmol/L [facility] Potassium 4.6 3.5 - 5.0 mmol/L [facility] Comment: Please note: ??Patients with WBC >100,000 may have falsely elevated Potassium levels. ??For accurate Potassium quantification in these patients send serum separator tube (gold top) for subsequent determinations. ??Contact the Clinical Chemistry Laboratory if there are any questions. Chloride 103 98 - 107 mmol/L [facility] Carbon Dioxide 26 22 - 31 mmol/L [facility] Anion Gap 12 5 - 15 mmol/L [facility] Calcium 9.5 8.5 - 10.5 mg/dL [facility] Protein, Total 7.1 6.1 - 8.0 g/dL [facility] Albumin 4.2 3.2 - 5.2 g/dL [facility] Aspartate Aminotransferase 33(H) 0 - 30 unit/L [facility] Alanine Aminotransferase 36(H) 0 - 30 unit/L [facility] Alkaline Phosphatase 130(H) 35 - 105 unit/L [facility] Bilirubin, Total 0.2 0.2 - 1.3 mg/dL [facility] Est Glomerular Filtration Rate 44(L) >=60 mL/min/1. 73 m?? [facility] Comment: This patient's estimated [...] In Lab Samuel Little MD CHEMISTRY ORDERABLES [facility] [place] [address] documented in this encounter Visit Diagnoses Diagnosis Stage 3b chronic kidney disease- Primary Urinary obstruction Urinary obstruction, unspecified Hypercalcemia Non-small cell lung cancer, right Tobacco abuse Tobacco use disorder Hypertension, unspecified type documented in this encounter Care Teams Process Environmental Technician Relationship Specialty Start Date End Date Kathy Wright APRN PCP - General Family Medicine 04/22/19 documented as of this encounter
--- OUTSIDE RECORDS SUMMARY | 2024-07-28 02:07 | XMS_ITS | Encounter Summary ---
Author Organization [facility] Address [address] [place] [address] Care Team Providers Care Furniture Maker Name Role Phone Felice Anahy Santa MIRANDA Primary Care Provider [phone] Encounter Details Date Type Department Care Team (Late st Contact Info) Description 05/16/2021 Lab Requisition [facility] Pathology & Laboratory Medicine - [address] [address] Mikki Maya, GINNING OPERATOR [address] [facility] [id number] Encounter for other general examination Social History [...] types, PCR Negative Negative 05/28/2021 16:17 EDT [facility] Comment:No E6 or E7 mRNA is detected from HPV types 16,18,31,33,35,39,45,51,52,56,58,59,66, and 68 by winder operator mediated amplification. Papanicolaou smear specimen (specimen) CERVIX UTERI STRUCTURE / Unknown 05/15/2021 11:20 EDT 05/25/2021 10:08 EDT Mikki Maya APRN MICROBIOLOGY - GE NERAL ORDERABLES [facility] [address] [place] [address] * PAP TEST (05/15/2021 11:20 EDT) Specimens A. Cervix and/or Endocervix , ThinPrep Imaging System with Manual Evaluation 05/28/2021 16:17 EDT [facility] Specimen Adequacy Satisfactory for Evaluation - transformation zone component absent 05/28/2021 16:17 T [facility] General Categorization Negative for intraepithelial lesion or malignancy 05/28/2021 16:17 T [facility] Attestation . 05/28/2021 16:17 [facility] at 1617 Clinical History See below 05/28/20 16:17 T [facility] HPV The result for the Human Papillomavirus (HPV) Detection-High Risk Types is Negative. No E6 or E7 mRNA is detected from HPV types 16,18,31,33,35,39 ,45,51,52,56,58,5 9,66, and 68 by winder operator mediated amplification.Smiley ting was performed on specimen [id number] and was resulted on 05/28/2021 1608 EDT by SOURAV, LAB INSTRUMENT RESULTS IN 05/28/2021 16:17 EDT [facility] Performing Lab [facility] 05/28/2021 16:17 EDT [facility] Scanned Images 05/28/2021 16:17 EDT [facility] Papanicolaou smear specimen (specimen) CERVIX UTERI STRUCTURE / Unknown 05/15/2021 11:20 EDT 05/16/2021 16:26 EDT Mikki Maya APRN PATHOLOGY ORDERAB LES [facility] [address] [place] [address] documented in this encounter Visit Diagnoses Diagnosis Encounter for other general examination documented in this encounter Care Teams Furniture Maker Relationship Specialty Start Date End Date Anahy Viveros NP [facility] [address] [place] [address] PCP - General 01/16/11 documented as of this encounter
--- OUTSIDE RECORDS SUMMARY | 2024-07-28 02:07 | XMS_ITS | Encounter Summary ---
Author Organization Health system Address [address] [place] [address] Care Team Providers Care Salesperson Recreational Vehicles Name Role Phone Anahy Viveros NP Primary Care Provider [phone] Encounter Details Date Type Department Care Team (Late st Contact Info) Description 02/23/2019 Results Only [facility] [phone] Mario West MD [address] [place] [id number] Social History Tobacco Use Types Packs/Day Years [...] ? AYLIN ALFONSO ? Accession #: ? [id number] ? : ? 1960 (Age: 58) ??F ? Collect Date: ? 02/23/2019 ? Location: ? [facility] ? Receive Date: ? 02/23/2019 ? Provider: AMRIO WEST MD Copy to: YAHAIRA KELLEY MILK WAGON DRIVER ? Final Pathologic Diagnosis: A. STOMACH, ANTRUM, [...] x 0.1 cm. Entirely submitted in B1. JOSE Matthew (ASCP) 02/23/2019 5:31 PM End of Report [facility] 02/23/2019 17:1 4 EDT 02/23/2019 17:14 EDT Mario West MD PATHOLOGY ORDERJean THACKER [facility] [address] [place] [address] documented in this encounter Visit Diagnoses Not on filedocumented in this encounter Care Teams Salesperson Recreational Vehicles Relationship Specialty Start Date End Date Anahy Viveros NP [facility] [address] [place] [address] PCP - General 01/16/11 documented as of this encounter
--- OUTSIDE RECORDS SUMMARY | 2024-07-28 02:07 | XMS_ITS | Encounter Summary ---
Author Organization [facility] [place] [address] Care Team Providers Care Otr Owner Operator Truck Driver Name Role Phone GerardoKathy nicolas Butch DANIEL Primary Care Provider [phone] Encounter Details Date Type Department Care Team (Late st Contact Info) Description 12/25/2023 [place] [address] Don Gardner, RN Social History Tobacco Use [...] on filedocumented in this encounter Care Teams Otr Owner Operator Truck Driver Relationship Specialty Start Date End Date Kathy Wright APRN PCP - General Family Medicine 04/22/19 documented as of this encounter
--- OUTSIDE RECORDS SUMMARY | 2024-07-28 02:07 | XMS_ITS | Encounter Summary ---
[place] [address] Care Team Providers Care Medical Office Supervisor Name Role Phone Kathy Wright Butch DANIEL Primary Care Provider [phone] Encounter Details Date Type Department Care Team (Latest Contact Info) Description 01/21/2023 1:30 PM EST Laboratory Appointment Lab [address] [place] [address] Chronic kidney disease, unspecified CKD stage Social [...] disease, unspecified CKD stage COMPREHENSIVE METABOLIC PANEL Routine 01/21/2023 1:29 PM EST Chronic kidney disease, unspecified CKD stage documented in this encounter Results * (ABNORMAL) Differential, Automated (01/21/2023 1:29 PM EST) Neutrophil % 52.6 % [facility] Neutrophil Absolute 5.41 1.70 - 6.10 x10(3)/mc L [facility] Lymph % 34.7 % [facility] Lymphocytes Abs 3.6(H) 0.9 - 3.2 x10(3)/mc L [facility] Monocyte % 6.3 % [facility] Monocyte Abs 0.6 0.3 - 0.9 x10(3)/mc L [facility] Eos % 4.8 % [facility] Eosinophils Abs 0.5(H) 0.0 - 0.4 x10(3)/mc L [facility] Basophil % 1.2 % [facility] Baso Absolute 0.1 0.0 - 0.1 x10(3)/mc L [facility] Immature Gran % 0.40 % [facility] Comment: Immature granulocytes(IG's)percentage and absolute count will include metamyelocytes, myelocytes, and promyelocytes. Blood smears from CBCs yielding IG's will be scanned manually for concordance. If this scan disagrees with the automated IG or if promyelocytes are noted, a manual differential will be performed. Immature Gran Absolute 0.04 0.00 - 0.04 x10(3)/mc L [facility] Blood 01/21/2023 1:29 PM EST 01/21/2023 1:53 PM EST Narrative Resulting Agency Comment Spec In Lab Lico Cagle MD HEMATOLOGY OR DERABLES [facility] [address] * (ABNORMAL) Hemogram (01/21/2023 1:29 PM EST) White Blood Cell 10.3(H) 4.0 - 9.5 x10(3)/mc L [facility] Red Blood Cell 4.72 4.00 - 5.21 x10(6)/mc L [facility] Hemoglobin 14.2 11.7 - 15.5 g/dL [facility] Hematocrit 43.2 35.7 - 45.8 % [facility] Mean Cell Volume 91.5 82.6 - 94.4 fL [facility] Mean Cell Hemoglobin 30.1 27.1 - 32.0 pg [facility] Mean Cell Hemoglobin Concentration 32.9 31.7 - 35.0 g/dL [facility] Platelet 239 145 - 357 x10(3)/mc L [facility] RDW Standard Deviation 44.6 37.0 - 46.0 fL [facility] RDW coefficient of variation 13.2 11.5 - 14.1 % [facility] Mean Platelet Volume 9.6 7.6 - 12.9 fL [facility] NRBC% auto 0.0 % [facility] NRBC Absolute 0.000 0.000 - 0.000 x10(3)/mc L [facility] Blood 01/21/2023 1:29 PM EST 01/21/2023 1:53 PM EST Narrative Resulting Agency Comment Spec In Lab Lico Cagle MD HEMATOLOGY OR DERABLES [facility] [address] * (ABNORMAL) Comprehensive metabolic panel (non-fasting) (01/21/2023 1:29 PM EST) Glucose 102 65 - 199 mg/dL [facility] Comment:Diabetes: >=200 mg/d L plus symptoms Blood Urea Nitrogen 18 8 - 18 mg/dL [facility] Creatinine 1.38(H) 0.70 - 1.20 mg/dL [facility] Sodium 139 135 - 145 mmol/L [facility] Potassium 4.7 3.5 - 5.0 mmol/L [facility] Comment: Please note: ??Patients with WBC >100,000 may have falsely elevated Potassium levels. ??For accurate Potassium quantification in these patients send serum separator tube (gold top) for subsequent determinations. ??Contact the Clinical Chemistry Laboratory if there are any questions. Chloride 101 98 - 107 mmol/L [facility] Carbon Dioxide 28 22 - 31 mmol/L [facility] Anion Gap 10 5 - 15 mmol/L [facility] Calcium 10.7(H) 8.5 - 10.5 mg/dL [facility] Protein, Total 7.4 6.1 - 8.0 g/dL [facility] Albumin 4.4 3.2 - 5.2 g/dL [facility] Aspartate Aminotransferase 22 0 - 30 unit/L [facility] Alanine Aminotransferase 27 0 - 30 unit/L [facility] Alkaline Phosphatase 136(H) 35 - 105 unit/L [facility] Bilirubin, Total 0.3 0.2 - 1.3 mg/dL [facility] Est Glomerular Filtration Rate 43(L) >=60 mL/min/1. 73 m?? [facility] Comment: This patient's estimated GFR [...] In Lab Samuel Little MD CHEMISTRY ORDERABLES [facility] [address] * Magnesium (01/21/2023 1:29 PM EST) Magnesium 0.87 0.69 - 1.07 mmol/L [facility] Blood 01/21/2023 1:29 PM EST 01/21/2023 1:53 PM EST Narrative Resulting Agency Comment Spec In Lab Samuel Little MD CHEMISTRY ORDERABLES [facility] [place] [address] * Phosphorus (01/21/2023 1:29 PM EST) Phosphorus 4.1 2.5 - 4.5 mg/dL [facility] Blood 01/21/2023 1:29 PM EST 01/21/2023 1:53 PM EST Narrative Resulting Agency Comment Spec In Lab Samuel Little MD CHEMISTRY ORDERABLES Performing Organization Address City/[facility] [address]/ZIP Co de Phone Number [facility] [place] [address] * PTH (01/21/2023 1:29 PM EST) Parathyroid Hormone 63 15 - 65 pg/mL [facility] Blood 01/21/2023 1:29 PM EST 01/21/2023 1:53 PM EST Narrative Resulting Agency Comment Spec In Lab Samuel Little MD CHEMISTRY ORDERABLES Performing Organization Address City/[facility] [address]/ZIP Co de Phone Number [facility] [address] documented in this encounter Visit Diagnoses Diagnosis Chronic kidney disease, unspecified CKD stage documented in this encounter Care Teams Medical Office Supervisor Relationship Specialty Start Date End Date Kathy Wright APRN PCP - General Family Medicine 04/22/19 documented as of this encounter
--- OUTSIDE RECORDS SUMMARY | 2024-07-28 02:07 | XMS_ITS | Encounter Summary ---
[place] [address] Care Team Providers Care Hotel Server Name Role Phone GerardoKathy nicolas Butch DANIEL Primary Care Provider Encounter Details Date Type Department Care Team (Late st Contact Info) Description 01/19/2024 Telephone Hematology [place] [address] Flo Miller RN Social History Tobacco Use [...] LAB PANEL Routine 01/19/2024 COMPREHENSIVE METABOLIC PANEL Routine 01/19/2024 documented in this encounter Results * External CBC Labs (01/19/2024) White Blood Cell 7.78 Red Blood Cell 4.90 Hemoglobin 14.1 Hematocrit 43.5 Platelet 244 Segs Absolute Manual 4.41 01/19/2024 Historical Provider POINT OF CARE [...] on filedocumented in this encounter Care Teams Hotel Server Relationship Specialty Start Date End Date Kathy Wright APRN PCP - General Family Medicine 04/22/19 documented as of this encounter
--- OUTSIDE RECORDS SUMMARY | 2024-07-28 02:07 | XMS_ITS ---
Author Organization [facility] Address [facility] [place] [address] Care Team Providers Care Hog Buyer Name Role Phone Kathy Wright COUNTER SALES PERSON Primary Care Provider [phone] Active Problems Problem Noted Date Diagnosed Date [...] treatments are documented for this patient in [facility]. Treatments may have been administered in another system. Lifetime Dose Tracking * Chemical Lifetime Dose Automatic Entry Manual Entr y DLP (Dose Length Product) 423 mGy-cm 423 mGy-cm 0 mGy-cm CTDI (CT Dose Index) Min 12.46 mGy 12.46 mGy 0 m Gy CTDI (CT Dose Index) Max 12.46 mGy 12.46 mGy 0 m Gy
--- OUTSIDE RECORDS SUMMARY | 2024-07-28 02:07 | XMS_ITS | Encounter Summary ---
Author Organization [facility] Address [address] [place] [address] Care Team Providers Care Tree Marker Name Role Phone Alejandro Early MD Primary Care Provider [phone] Encounter Details Date Type Department Care Team (Late st Contact Info) Description 11/18/2005 Results Only [facility] - Maple conversion [address] [place] [address] Thor Mazariegos MD [address] [address] Social History Tobacco Use Types [...] ? AYLIN ALFONSO ? Accession #: ? [id number] : ? 1960 (Age: 45) ??F ?Collect Date: ? 11/18/2005 Location: ? [facility] ? Receive Date: ? 11/19/2005 Provider: ?THOR MAZARIEGOS MD Copy to: ? [facility] ?[address] ?[place], [place] [address] ? Specimen/Source: ?ThinPrep Pap Test, Cervix/Endocervix, processed on Fora ThinPrep Imaging System, with manual evaluation Last [...] Mazariegos MD PATHOLOGY ORDERABLES ALISON KUMARI [address] [place] [address] documented in this encounter Visit Diagnoses Not on filedocumented in this encounter Care Teams Tree Marker Relationship Specialty Start Date End Date Alejandro Early MD [facility] [facility] [address] PCP - General 01/29/10 01/15/11 documented as of this encounter
--- OUTSIDE RECORDS SUMMARY | 2024-07-28 02:07 | XMS_ITS | Encounter Summary ---
Author Organization [facility] Address [facility] [place] [address] Care Team Providers Care Engineering Technician Parking Name Role Phone Kathy Wright APRN Primary Care Provider [phone] Encounter Details Date Type Department Care Team [...] on filedocumented in this encounter Care Teams Engineering Technician Parking Relationship Specialty Start Date End Date Kathy Wright APRN PCP - General Family Medicine 04/22/19 documented as of this encounter
--- OUTSIDE RECORDS SUMMARY | 2024-07-28 02:07 | XMS_ITS | Encounter Summary ---
Author Organization [facility] Address [address] [place] [address] Care Team Providers Care Back Tender Insulation Board Name Role Phone Unavailable Primary Care Provider Unavailabl e Encounter Details Date Type Department Care Team (Late st Contact Info) Description 01/03/2009 Before PRISM Converted Visit (Maple) [facility] - Maple conversion [address] [place] [address] Marcela Arceo, [facility] [address] [address] Social History Tobacco Use Types [...] ? AYLIN ALFONSO ? Accession #: ? [id number] ? : ? 1960 (Age: 48) ??F ?Collect Date: ? 01/03/2009 ? Location: ? [facility] ? Receive Date: ? 01/04/2009 ? Provider: ?MARCELA PRIYANKA CHARTER DRIVER ? Copy to: ? Specimen/Source: ?Pap Test, [...] ? ALISON KUMARI 01/03/2009 01/04/2009 Marcela Arceo CHARTER DRIVER PATHOLOGY ORDERABLES [facility] [address] [place] [address] documented in this encounter Visit Diagnoses Not on filedocumented in this encounter
--- OUTSIDE RECORDS SUMMARY | 2024-07-28 02:07 | XMS_ITS | Clinical Summary ---
Author Organization [facility] Address [address] [place] [address] Care Team Providers Care Business Office Representative Name Role Phone Anahy Viveros NP Primary Care Provider [phone] Social History Tobacco Use Types Packs/Day Years [...] series) 2020 COVID-19 Vaccine ( season) 2023 Care Teams Business Office Representative Relationship Specialty Start Date End Date Anahy Viveros LENS COATING TECHNICIAN [facility] [address] [place], [place] [address] PCP - General 01/16/11
--- OUTSIDE RECORDS SUMMARY | 2024-07-28 02:07 | XMS_ITS | Encounter Summary ---
[place] [address] Care Team Providers Care Counter Control Operator Name Role Phone Kathy Wright Butch DANIEL Primary Care Provider [phone] Encounter Details Date Type Department Care Team (Late st Contact Info) Description 03/03/2023 Telephone Nephrology [place] [address] Misti Lopes Social History Tobacco Use Types [...] on filedocumented in this encounter Care Teams Counter Control Operator Relationship Specialty Start Date End Date Kathy Wright APRN PCP - General Family Medicine 04/22/19 documented as of this encounter
--- OUTSIDE RECORDS SUMMARY | 2024-07-28 02:07 | XMS_ITS | Encounter Summary ---
[place] [address] Care Team Providers Care Health Associate Name Role Phone Kathy Wright MARÍA Primary Care Provider Encounter Details Date Type Department Care Team (Latest Contact Info) Description 08/12/2023 12:30 PM EDT Laboratory Appointment Lab [address] [place] [address] Chronic kidney disease, unspecified CKD stage Social [...] Procedure Name Priority Date/Time Associated Diagnosis Comments IMMUNOGLOBULIN FREE LIGHT CHAINS, SERUM Routine 08/12/2023 1:01 PM EDT Chronic kidney disease, unspecified CKD stage PTH Routine 08/12/2023 1:01 PM EDT Chronic kidney disease, unspecified CKD stage HEMOGRAM STAT 08/12/2023 1:01 PM EDT Chronic kidney disease, unspecified CKD stage DIFFERENTIAL, AUTOMATED STAT 08/12/2023 1:01 PM EDT Chronic kidney disease, unspecified CKD stage VITAMIN D, 25-HYDROXY Routine 08/12/2023 1:01 PM EDT CBC (WITH DIFF) STAT 08/12/2023 1:01 PM EDT Chronic kidney disease, unspecified CKD stage PROTEIN ELECTROPHORESIS, SERUM Routine 08/12/2023 1:01 PM EDT Chronic kidney disease, unspecified CKD stage PHOSPHORUS Routine 08/12/2023 1:01 PM EDT Chronic kidney disease, unspecified CKD stage MAGNESIUM Routine 08/12/2023 1:01 PM EDT Chronic kidney disease, unspecified CKD stage GAMMA GT Routine 08/12/2023 1:01 PM EDT COMPREHENSIVE METABOLIC PANEL Routine 08/12/2023 1:01 PM EDT Chronic kidney disease, unspecified CKD stage documented in this encounter Results * (ABNORMAL) Gamma GT (08/12/2023 1:01 PM EDT) Gamma Glutamyl Transferase 51(H) 5 - 36 unit/L [facility] Blood Venous Draw / Unknown 08/12/2023 1:01 PM EDT 08/12/2023 1:31 PM EDT Narrative Resulting Agency Comment Spec In Lab Lico Cagle MD CHEMISTRY ORD ERABLES [facility] [place] [address] * Vitamin D, 25-Hydroxy (08/12/2023 1:01 PM EDT) Vitamin D Total 25 OH 31 21 - 100 ng/mL [facility] Vit D Interp Sufficient [facility] Blood Venous Draw / Unknown 08/12/2023 1:01 PM EDT 08/12/2023 1:31 PM EDT Narrative Resulting Agency Comment Spec In Lab Lico Cagle MD [place] [address] * (ABNORMAL) Differential, Automated (08/12/2023 1:01 PM EDT) Neutrophil % 53.3 % [facility] Neutrophil Absolute 6.09 1.70 - 6.10 x10(3)/mc L [facility] Lymph % 34.5 % [facility] Lymphocytes Abs 3.9(H) 0.9 - 3.2 x10(3)/mc L [facility] Monocyte % 6.3 % [facility] Monocyte Abs 0.7 0.3 - 0.9 x10(3)/mc L [facility] Eos % 4.5 % [facility] Eosinophils Abs 0.5(H) 0.0 - 0.4 x10(3)/mc L [facility] Basophil % 0.9 % [facility] Baso Absolute 0.1 0.0 - 0.1 x10(3)/mc L [facility] Immature Gran % 0.50 % [facility] Comment: Immature granulocytes(IG's)percentage and absolute count will include metamyelocytes, myelocytes, and promyelocytes. Blood smears from CBCs yielding IG's will be scanned manually for concordance. If this scan disagrees with the automated IG or if promyelocytes are noted, a manual differential will be performed. Immature Gran Absolute 0.06(H) 0.00 - 0.04 x10(3)/mc L [facility] Blood 08/12/2023 1:01 PM EDT 08/12/2023 1:24 PM EDT Narrative Resulting Agency Comment Spec In Lab Lico Cagle MD HEMATOLOGY OR DERABLES Performing Organization Address City/[facility]/[place] [address] * (ABNORMAL) Hemogram (08/12/2023 1:01 PM EDT) White Blood Cell 11.4(H) 4.0 - 9.5 x10(3)/mc L [facility] Red Blood Cell 4.56 4.00 - 5.21 x10(6)/mc L [facility] Hemoglobin 13.8 11.7 - 15.5 g/dL [facility] Hematocrit 42.9 35.7 - 45.8 % [facility] Mean Cell Volume 94.1 82.6 - 94.4 fL [facility] Mean Cell Hemoglobin 30.3 27.1 - 32.0 pg [facility] Mean Cell Hemoglobin Concentration 32.2 31.7 - 35.0 g/dL [facility] Platelet 261 145 - 357 x10(3)/mc L [facility] RDW Standard Deviation 48.3(H) 37.0 - 46.0 fL [facility] RDW coefficient of variation 14.1 11.5 - 14.1 % [facility] Mean Platelet Volume 9.9 7.6 - 12.9 fL [facility] NRBC% auto 0.0 % [facility] NRBC Absolute 0.000 0.000 - 0.000 x10(3)/ L [facility] Blood 08/12/2023 1:01 PM EDT 08/12/2023 1:24 PM EDT Narrative Resulting Agency Comment Spec In Lab Lico Cagle MD HEMATOLOGY OR DERABLES Performing Organization Address City/[facility] Co de Phone Number [facility] [place] [address] * (ABNORMAL) PTH (08/12/2023 1:01 PM EDT) Parathyroid Hormone 117(H) 15 - 65 pg/mL [facility] Blood 08/12/2023 1:01 PM EDT 08/12/2023 1:24 PM EDT Narrative Resulting Agency Comment Spec In Lab Samuel Little MD CHEMISTRY ORDERABLES Performing Organization Address City/State/[facility] Co de Phone Number [facility] [place] [address] * (ABNORMAL) Free Light Chains, Serum (08/12/2023 1:01 PM EDT) [place] Free Light Chain 3.58(H) 0.72 - 2.75 mg/dL [facility] Lambda Free Light Chain 2.32(H) 0.57 - 2.15 mg/dL [facility] [place]/Lambda FLC Ratio 1.5431 0.4000 - 2.5800 [facility] Blood 08/12/2023 1:01 PM EDT 08/12/2023 1:25 PM EDT Narrative Resulting Agency Comment Spec In Lab Samuel Little MD CHEMISTRY ORDERABLES Performing Organization Address [facility] Number [facility] [place] [address] * Protein Electrophoresis, serum (08/12/2023 1:01 PM EDT) Pathologist [facility] Total Prot Electrophoresis 6.8 6.1 - 8.0 g/dL [facility] Albumin Electrophoresis 4.22 3.20 - 5.20 g/dL [facility] Alpha 1 Globulin 0.20 0.10 - 0.30 g/dL [facility] Alpha 2 Globulin 0.79 0.40 - 0.90 g/dL [facility] Beta Globulin 0.82 0.50 - 1.00 g/dL [facility] Gamma Globulin 0.77 0.50 - 1.30 g/dL [facility] M1 Band None Detected None Detected [facility] Blood 08/12/2023 1:01 PM EDT 08/12/2023 1:25 PM EDT Narrative Resulting Agency Comment Spec In Lab Samuel Little MD CHEMISTRY ORDERABLES Performing Organization Address [facility] Co de Phone Number [facility] [place] [address] * Phosphorus (08/12/2023 1:01 PM EDT) Pathologist [facility] Phosphorus 3.2 2.5 - 4.5 mg/dL [facility] Blood 08/12/2023 1:01 PM EDT 08/12/2023 1:25 PM EDT Narrative Resulting Agency Comment Spec In Lab Samuel Little MD CHEMISTRY ORDERABLES Performing Organization Address City/[facility] Co de Phone Number [facility] [place] [address] * Magnesium (08/12/2023 1:01 PM EDT) Magnesium 0.86 0.69 - 1.07 mmol/L [facility] Blood 08/12/2023 1:01 PM EDT 08/12/2023 1:25 PM EDT Narrative Resulting Agency Comment Spec In Lab Samuel Little MD CHEMISTRY ORDERABLES Performing Organization Address [facility] Co de Phone Number [facility] [place] [address] * (ABNORMAL) Comprehensive metabolic panel (non-fasting) (08/12/2023 1:01 PM EDT) Glucose 154 65 - 199 mg/dL [facility] Comment:Diabetes: >=200 mg/d L plus symptoms Blood Urea Nitrogen 15 8 - 18 mg/dL [facility] Creatinine 1.36(H) 0.70 - 1.20 mg/dL [facility] Sodium 141 135 - 145 mmol/L [facility] Potassium 4.6 3.5 - 5.0 mmol/L [facility] Comment: Please note: ??Patients with WBC >100,000 may have falsely elevated Potassium levels. ??For accurate Potassium quantification in these patients send serum separator tube (gold top) for subsequent determinations. ??Contact the Clinical Chemistry Laboratory if there are any questions. Chloride 103 98 - 107 mmol/L [facility] Carbon Dioxide 26 22 - 31 mmol/L [facility] Anion Gap 12 5 - 15 mmol/L [facility] Calcium 9.5 8.5 - 10.5 mg/dL [facility] Protein, Total 7.1 6.1 - 8.0 g/dL [facility] Albumin 4.2 3.2 - 5.2 g/dL [facility] Aspartate Aminotransferase 33(H) 0 - 30 unit/L [facility] Alanine Aminotransferase 36(H) 0 - 30 unit/L [facility] Alkaline Phosphatase 130(H) 35 - 105 unit/L [facility] Bilirubin, Total 0.2 0.2 - 1.3 mg/dL [facility] Est Glomerular Filtration Rate 44(L) >=60 mL/min/1. 73 m?? [facility] Comment: This patient's estimated [...] Narrative Resulting Agency Comment Spec In Lab aSmuel Little MD CHEMISTRY ORDERABLES Performing Organization Address City/State/[facility] Co de Phone Number [facility] [place] [address] documented in this encounter Visit Diagnoses Diagnosis Chronic kidney disease, unspecified CKD stage documented in this encounter Care Teams Health Associate Relationship Specialty Start Date End Date Kathy Wright APRN PCP - General Family Medicine 04/22/19 documented as of this encounter
--- OUTSIDE RECORDS SUMMARY | 2024-07-28 02:07 | XMS_ITS | Encounter Summary ---
Author Organization [facility] Address [facility] [place] [address] Care Team Providers Care Police Chief Deputy Name Role Phone Kathy Wright APRN Primary Care Provider [phone] Encounter Details Date Type Department Care Team [...] on filedocumented in this encounter Care Teams Police Chief Deputy Relationship Specialty Start Date End Date Kathy Wright APRN PCP - General Family Medicine 04/22/19 documented as of this encounter
--- OUTSIDE RECORDS SUMMARY | 2024-07-28 02:07 | XMS_ITS | Encounter Summary ---
Author Organization [facility] [place] [address] Care Team Providers Care Shoe Cleaner Name Role Phone Kathy Wright APRN Primary Care Provider [phone] Encounter Details Date Type Department Care Team (Late st Contact Info) Description 02/21/2023 Telephone [place] [address] Lico Wing MD [facility] [place] [address] Social History Tobacco Use Types Packs/Day Years [...] filedocumented in this encounter Care Teams Shoe Cleaner Relationship Specialty Start Date End Date Kathy Wright APRN PCP - General Family Medicine 04/22/19 documented as of this encounter
--- OUTSIDE RECORDS SUMMARY | 2024-07-28 02:07 | XMS_ITS | Encounter Summary ---
Author Organization [facility] Address [address] [place] [address] Care Team Providers Care Liquid Waste Treatment Plant Operator Name Role Phone Alejandro Early MD Primary Care Provider [phone] Encounter Details Date Type Department Care Team (Late st Contact Info) Description 09/10/2002 Results Only [facility] - Maple conversion [address] [place] [address] Thor Mazariegos MD [address] [address] Social History Tobacco Use Types [...] reading/interpreti ng unformatted reports. Name: ? AYLIN ALFOSNO ? Accession #: ? [id number] : ? 1960 (Age: 42) ??F ?Collect [...] Mazariegos MD PATHOLOGY ORDERABLES Performing Organization Address City/State/[facility] Co de Phone Number [facility] [address] [place] [address] documented in this encounter Visit Diagnoses Not on filedocumented in this encounter Care Teams Liquid Waste Treatment Plant Operator Relationship Specialty Start Date End Date Alejandro Early MD [address] [place] [address] [place] [address] PCP - General 01/29/10 01/15/11 documented as of this encounter
--- OUTSIDE RECORDS SUMMARY | 2024-07-28 02:07 | XMS_ITS | Encounter Summary ---
Author Organization [facility] Address [facility] [place] [address] Care Team Providers Care Progress Developer Name Role Phone Kathy Wright APRN Primary Care Provider [phone] Encounter Details Date Type Department Care Team [...] on filedocumented in this encounter Care Teams Progress Developer Relationship Specialty Start Date End Date Kathy Wright APRN PCP - General Family Medicine 04/22/19 documented as of this encounter
--- OUTSIDE RECORDS SUMMARY | 2024-07-28 02:07 | XMS_ITS | Encounter Summary ---
Author Organization [facility] Address [address] [place] [address] Care Team Providers Care Automotive Internet Sales Consultant Name Role Phone FeliceAnahy Santa MIRANDA Primary Care Provider [phone] Encounter Details Date Type Department Care Team (Late st Contact Info) Description 08/02/2022 Lab Requisition [facility] - [address] [address] Miladis Victoria, DO [address] [place], [place] [id number] Encounter for screening for malignant neoplasm of [...] explore management options, if applicable. 08/07/2022 9:33 [facility] Final Diagnosis A. COLON, 40 CM, POLYP, BIOPSY: - Tubular adenoma. B. COLON, 70 CM, BIOPSY: - Colonic mucosa with no significant diagnostic abnormality. C. COLON, 20 CM, BIOPSY: - Colonic mucosa with no significant diagnostic abnormality. 08/07/2022 9:33 [facility] Attestation There was significant resident/fellow involvement in the diagnostic evaluation of this case. By the signature below, the attending physician certifies that they have personally conducted a gross and/or microscopic examination of the described specimens and rendered or confirmed the above diagnosis. 08/07/2022 9:33 [facility] at 0933 Clinical History Colon cancer screening 08/07/2022 9:33 [facility] Gross Description A. [...] C1. LEAH CRANE 08/03/2022 11:16 08/07/2022 9:33 [facility] Resident/David w: Avni Mock 08/07/2022 9:33 [facility] Performing Lab [facility] 08/07/2022 9:33 [facility] Scanned Images 08/07/2022 9:33 [facility] Tissue ENTIRE COLON / Unknown 08/02/2022 7:47 EDT 08/02/2022 18:00 EDT Tissue specimen (specimen) COLON STRUCTURE / Unknown 08/02/2022 7:47 EDT 08/02/2022 18:00 EDT Tissue specimen (specimen) COLON STRUCTURE / Unknown 08/02/2022 7:47 EDT 08/02/2022 18:00 EDT Miladis Victoria DO PATHOLOGY ORDERABLES [facility] [address] [place] [address] documented in this encounter Visit Diagnoses Diagnosis Encounter for screening for malignant neoplasm of colon Special screening for malignant neoplasms, colon documented in this encounter Care Teams Automotive Internet Sales Consultant Relationship Specialty Start Date End Date Anahy Viveros NP [facility] [address] [place] [address] PCP - General 01/16/11 documented as of this encounter
--- OUTSIDE RECORDS SUMMARY | 2024-07-28 02:07 | XMS_ITS | Encounter Summary ---
Author Organization [facility] Address [address] [place] [address] Care Team Providers Care Resident Care Associate Name Role Phone Anahy Xiao NP Primary Care Provider [phone] Encounter Details Date Type Department Care Team (Late st Contact Info) Description 04/25/2016 Results Only [facility] [place] [phone] Marcela Arceo, [facility] [address] [place] [address] Social History [...] ? KADEN AYLIN ? Accession #: ? [id number] ? : ? 1960 (Age: 55) ??F ?Collect Date: ? 04/25/2016 ? Location: ? [facility] ? Receive Date: ? 04/26/2016 ? Provider: MARCELA ARCEO MOLD BLOWER Copy to: ANAHY XIAO SIDE PANEL HANGER ? Final Report SPECIMEN ADEQUACY ? Satisfactory for Evaluation - transformation zone component present GENERAL CATEGORIZATION ? Negative for Intraepithelial Lesion or Malignancy ?? Last Menstrual Period: 2003 Specimen/Source: ??Pap Test, Cervix/Endocervix, ThinPrep Imaging System with manual evaluation Document reviewed and electronically signed by: ? Patricia Sampson, [facility](ASCP) ? Report ??Date: 05/07/2016 09:42 HPV with Pap Test ? Date Ordered: ? 05/07/2016 ? Status: ?? Signed Out ?Date Complete: ? 05/09/2016 ? By: ??System Interface ? Date Reported: ? 05/09/2016 ? Interpretation RESULT: Negative for HPV. No E6 or E7 mRNA is detected from HPV types 16,18,31,33,35, 39,45,51,52,56,58, 59,66, and 68 by peer counselor mediated amplification. Comments Document reviewed and electronically signed by: ? System Interface ? Report date: 05/09/2016 By the signature above, the attending physician certifies that he/she has personally conducted a gross and/or microscopic examination of the described specimens and rendered or confirmed the above diagnosis. End of Report [facility] 04/25/2016 04/26/2016 Marcela Arceo MOLD BLOWER PATHOLOGY ORDERABLES [facility] [address] [place] [address] documented in this encounter Visit Diagnoses Not on filedocumented in this encounter Care Teams Resident Care Associate Relationship Specialty Start Date End Date Anahy Xiao, [facility] [address] [place], [place] [address] PCP - General 01/16/11 documented as of this encounter
--- OUTSIDE RECORDS SUMMARY | 2024-07-28 02:07 | XMS_ITS | Encounter Summary ---
[place] [address] Care Team Providers Care Manufacturing Team Member Name Role Phone GerardoKathy nicolas Butch DANIEL Primary Care Provider [phone] Reason for Referral * Diagnostic Test (Routine) - Authorized Specialty Diagnoses / Procedures Referred By Janie cassidy Referred To Contact Radiology Diagnoses Non-small cell lung cancer, right Procedures CT Chest wo Contrast (Generic) Kayla Godoy APRN [facility] [place] [address] [facility] [place] [address] Referral ID Status Reason Start Date Expiration Date Visits Requested Visits Authorized [id number] Authorized Specialty Service Requested 01/29/2024 07/29/2025 1 1 Reason for Visit * Reason Comments Follow-up Lung Cancer Encounter Details Date Type Department Care Team (Late st Contact Info) Description 01/29/2024 9:45 AM EST Office Visit Hematology [place] [address] Sophia Rossi MD [facility] DR HEMATOLOGY [place] [address] Kayla Godoy APRN [facility] [place] [address] Non-small cell lung cancer, right Social History [...] in this encounter Progress Notes * Kayla Godoy APRN - 01/29/2024 9:45 AM EST Images from [...] Chest was performed 07/02/18 which demonstrated stable fhnk-ew-jnok nodules in the RLL, largest measuring 9 [...] 2.78) performed by Juan Ny MD at [facility] MAIN OR PRO INJECTION ANES AGENT &/ STEROID INTERCOSTAL NERVE EA ADDL LEVEL Right 10/06/2019 NERVE BLOCK, INTERCOSTAL NERVE, MULTIPLE (WRVU 1.68) performed by Juan Ny MD at [facility] MAIN OR PRO THORACOSCOPY SURG LOBECTOMY Right 10/06/2019 @ROBOT XI THORACOSCOPY,SURGICAL,W\LOBECTOMY,TOTAL OR SEGMENTAL (WRVU 24.64) performed by Juan Ny MD at [facility] MAIN OR PRO THORACOSCOPY WITH MEDIASTINAL AND REGIONAL LYMPHADENECTOMY Right 10/06/2019 @ROBOT XI THORACOSCOPY,SURG; W/MEDIASTINAL& REGIONAL LYMPHADENECTOMY (WRVU 4.12) performed by Juan Ny MD at [facility] MAIN OR PRO THORACOSCOPY WITH WEDGE RESECTION AND ANATOMIC LUNG RESECTN Right 10/06/2019 @ROBOT XI THORACOSCOPY,SURG; W/DX WEDGE RESC W/ANATOMIC LUNG RESC (WRVU 3) performed by Juan Ny MD at [facility] MAIN OR MEDS: Current Outpatient Medications on [...] Personal: Lives at home by herself in [place], [place] 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 I advised her strongly [...] right documented in this encounter Care Teams Manufacturing Team Member Relationship Specialty Start Date End Date Kathy Wright, MARÍA PCP - General Family Medicine 04/22/19 documented as of this encounter
--- OUTSIDE RECORDS SUMMARY | 2024-07-28 02:07 | XMS_ITS | Encounter Summary ---
Author Organization [facility] Address [address] [place] [address] Care Team Providers Care Machinist Supervisor Name Role Phone Yocasta Early MD Primary Care Provider [phone] Encounter Details Date Type Department Care Team (Late st Contact Info) Description 08/19/2000 Results Only [facility] - Maple conversion [address] [place] [address] Kip Pettit MD [address] [place] [address] Social History Tobacco Use Types Packs/Day Years [...] ? KADEN AYLIN ? Accession #: ? [id number] ? : ? 1960 (Age: 39) ??F [...] stain is negative for intestinal metaplasia. ??(Dr. Quevedo)/[facility] Document reviewed and electronically signed by: [...] entirely submitted intact in one cassette. ??(Dr. Quevedo)/[facility] [place] [place] End of Report ALISON KUMAR[facility] 08/19/2000 08/19/2000 15: 05 EDT Kip Pettit MD PATHOLOGY ORDERABLES Performing Organization Address City/State/[facility] Co de Phone Number ALISON KUMARI [address] [place] [address] documented in this encounter Visit Diagnoses Not on filedocumented in this encounter Care Teams Machinist Supervisor Relationship Specialty Start Date End Date Yocasta Early MD [facility] [place] [address] PCP - General 01/29/10 01/15/11 documented as of this encounter
--- OUTSIDE RECORDS SUMMARY | 2024-07-28 02:07 | XMS_ITS | Encounter Summary ---
[place] [address] Care Team Providers Care Advertising Display Rotator Name Role Phone Kathy Wright MARÍA Primary Care Provider [phone] Encounter Details Date Type Department Care Team (Late st Contact Info) Description 01/12/2024 Telephone [place] [address] Misti Lopes Social History Tobacco Use Types [...] filedocumented in this encounter Care Teams Advertising Display Rotator Relationship Specialty Start Date End Date Kathy Wright APRN PCP - General Family Medicine 04/22/19 documented as of this encounter
--- OUTSIDE RECORDS SUMMARY | 2024-07-28 02:07 | XMS_ITS | Encounter Summary ---
Author Organization [facility] Address [address] [place] [address] Care Team Providers Care Sugar Chipper Machine Operator Name Role Phone Alejandro Early MD Primary Care Provider [phone] Encounter Details Date Type Department Care Team (Late st Contact Info) Description 12/04/2006 Results Only [facility] - Maple conversion [address] [place] [address] Thor Mazariegos MD [address] [address] [address] Social History Tobacco Use Types [...] MAZARIEGOS MD Copy to: ? [facility] ?[address] ?[place], [place] [address] ? Specimen/Source: ?ThinPrep Pap Test, Cervix/Endocervix, processed on Capitaine Train ThinPrep Imaging System, with manual evaluation Last Menstrual Period: ? 11/23/06 ? SPECIMEN ADEQUACY ? Satisfactory for Evaluation - transformation zone component present GENERAL CATEGORIZATION ? Negative for Intraepithelial Lesion or Malignancy ? Document reviewed and electronically signed by: ? STIVEN Morrow(ASCP) ? Report Date: ??12/08/2006 12:24 End of Report ALISON KUMARI 12/04/2006 12/05/2006 Thor Mazariegos MD PATHOLOGY ORDERABLES [facility] [address] [place] [address] documented in this encounter Visit Diagnoses Not on filedocumented in this encounter Care Teams Sugar Chipper Machine Operator Relationship Specialty Start Date End Date Alejandro Early MD [address] [place] [address] [place] [address] PCP - General 01/29/10 01/15/11 documented as of this encounter
--- OUTSIDE RECORDS SUMMARY | 2024-07-28 02:07 | XMS_ITS | Encounter Summary ---
[place] [address] Care Team Providers Care Coffee Shop Manager Name Role Phone Kathy Wright APRN Primary Care Provider [phone] Encounter Details Date Type Department Care Team (Late st Contact Info) Description 01/12/2024 Telephone Nephrology [place] [address] Misti Lopes Social History Tobacco Use Types [...] on filedocumented in this encounter Care Teams Coffee Shop Manager Relationship Specialty Start Date End Date Kathy Wright APRN PCP - General Family Medicine 04/22/19 documented as of this encounter
--- OUTSIDE RECORDS SUMMARY | 2024-07-28 02:07 | XMS_ITS | Encounter Summary ---
Author Organization [facility] Address [address] [place] [address] Care Team Providers Care Supervisor Tubing Name Role Phone Alejandro Early MD Primary Care Provider [phone] Encounter Details Date Type Department Care Team (Late st Contact Info) Description 01/14/2011 Results Only [facility] Services - [facility] ([facility] [address] [place], [place] [address] Patricia Burnett MD [address] [place] [address] [address] [place] [address] Social History Tobacco Use Types [...] ? AYLIN ALFONSO ? Accession #: ? [id number] ? : ? 1960 (Age: 50) ??F ? Collect Date: ? 01/14/2011 ? Location: ? [facility] ? Receive Date: ? 01/15/2011 ? Provider: GARFIELD CALDERA DO ? Copy to: [facility] DIRECTOR LEAD TEACHER ? Final Pathologic Diagnosis: ? Skin, site [...] hyperplastic with irregular acanthosis. ??The keratinocytes show cooler servicer ? maturation with no appreciable spongiosis, ballooning [...] reactive changes, but generally mature in an cooler servicer fashion with a thick ? granular layer. [...] DO PATHOLOGY ORDERABLES [facility] [address] [place] [address] documented in this encounter Visit Diagnoses Not on filedocumented in this encounter Care Teams Supervisor Tubing Relationship Specialty Start Date End Date Alejandro Early MD [address] [place] [address] [place] [address] PCP - General 01/29/10 01/15/11 documented as of this encounter
--- OUTSIDE RECORDS SUMMARY | 2024-07-28 02:07 | XMS_ITS | Encounter Summary ---
Author Organization [facility] [place] [address] Care Team Providers Care General Operations Manager Name Role Phone GerardoKathy nicolas Butch DANIEL Primary Care Provider [phone] Encounter Details Date Type Department Care Team (Late st Contact Info) Description 02/07/2023 External Results [place] [address] Maame Curtis APRN [facility] [place] [address] Social History Tobacco Use Types Packs/Day Years [...] ALBUMIN/CRE RATIO Routine 02/04/2023 BASIC METABOLIC PANEL Routine 02/04/2023 documented in this encounter Results * Calcium, Ionized, Serum (02/04/2023) Calcium, bld, ionized 1.14 Blood 02/04/2023 Historical Provider CHEMISTRY ORDERAB LES * Basic Metabolic Panel (non-fasting) (02/04/2023) Glucose 182 Blood Urea Nitrogen 21 Creatinine 1.7 Est Glomerular Filtration Rate 33.7 Sodium 140 Potassium 4.7 Chloride 105 Carbon Dioxide 25 Calcium 9.7 Anion Gap 10 Thyroid Stimulating Hormone 0.48 Free T4 1.12 Blood 02/04/2023 Historical Provider CHEMISTRY ORDERAB LES * U Albumin/Cre Ratio (02/04/2023) Albumin / Creatinin Ratio, Urine 22.4 Albumin, Urine 14.7 Creatinine, Urine 65.59 Urine 02/04/2023 Historical Provider URINE ORDERABLES documented in this encounter Visit Diagnoses Not on filedocumented in this encounter Care Teams General Operations Manager Relationship Specialty Start Date End Date Kathy Wright, CERAMIC RESTORER PCP - General Family Medicine 04/22/19 documented as of this encounter
--- OUTSIDE RECORDS SUMMARY | 2024-07-28 02:07 | XMS_ITS | Encounter Summary ---
Author Organization [facility] Address [address] [place] [address] Care Team Providers Care Three Dimensional Art Instructor Name Role Phone Anahy Viveros PLASTER FORM MAKER Primary Care Provider [phone] Encounter Details Date Type Department Care Team (Latest Contact Info) Description 02/23/2019 14:52 EDT - 02/23/2019 23:59 EDT Hospital Encounter [address] [address] Unknown, Provider, Discharge Disposition: Home or Self Care Social History Tobacco Use Types Packs/Day Years Used Date Smoking Tobacco: Never Assessed Sex and Gender Information Value Date Recorded Sex Assigned at Not on file Gender Identity Not on file Sexual Orientation Not on file documented as of this encounter Discharge Disposition Disposition Code Departure Means Destination Home or Self Prison documented in this encounter Plan of Treatment Not on file documented as of this encounter Visit Diagnoses Not on filedocumented in this encounter Care Teams Three Dimensional Art Instructor Relationship Specialty Start Date End Date Anahy Viveros NP [facility] [address] [place] [address] PCP - General 01/16/11 documented as of this encounter
--- OUTSIDE RECORDS SUMMARY | 2024-07-28 02:07 | XMS_ITS | Encounter Summary ---
Author Organization [facility] Address [address] [place] [address] Care Team Providers Care Odd Jobs Day Worker Name Role Phone Anahy Vievros NP Primary Care Provider [phone] Encounter Details Date Type Department Care Team (Late st Contact Info) Description 02/04/2023 Lab Requisition [facility] Pathology & Laboratory Medicine - [address] [address] Outr Resulting Lab, Provider Social History Tobacco [...] 11:15 EST) Hold Hold 02/04/2023 18:15 EST [facility] Blood VENOUS BLOOD / Unknown 02/04/2023 11:15 EST 02/04/2023 17:01 EST Provider Outr Resulting Lab LAB INFO SER VICE AND SUPPORT & PHONE RESULT [facility] [address] [place] [address] * CALCIUM, IONIZED (02/04/2023 11:15 EST) Calcium, Ionized 1.14 1.14 - 1.35 mmol/L 02/04/2023 17:16 EST [facility] Comment: Testing performed on heparinized plasma. Results may be biased 5% lower than that of whole blood. Blood VENOUS BLOOD / Unknown 02/04/2023 11:15 EST 02/04/2023 17:01 EST Provider Outr Resulting Lab CHEMISTRY & BLOOD GAS ORDERABLES Performing Organization Address [facility] [place] [facility] Co de Phone Number [facility] [address] [place] [address] documented in this encounter Visit Diagnoses Not on filedocumented in this encounter Care Teams Odd Jobs Day Worker Relationship Specialty Start Date End Date Anahy Viveros NP [facility] [address] [place] [address] PCP - General 01/16/11 documented as of this encounter
--- OUTSIDE RECORDS SUMMARY | 2024-07-28 02:07 | XMS_ITS | Encounter Summary ---
Author Organization [facility] Address [address] [place] [address] Care Team Providers Care Assistant Professor Of Criminal Justice Name Role Phone Alejandro Early MD Primary Care Provider [phone] Encounter Details Date Type Department Care Team (Late st Contact Info) Description 12/22/2007 Results Only [facility] - Maple conversion [address] [place] [address] Thor Mazariegos MD [address] [facility] [address] [address] Social History Tobacco Use Types [...] ? AYLIN ALFONSO ? Accession #: ? [id number] : ? 1960 (Age: 47) ??F ?Collect Date: ? 12/22/2007 Location: ? [facility] ? Receive Date: ? 12/22/2007 Provider: ?THOR MAZARIEGOS MD Copy to: ? Specimen/Source: ?ThinPrep Pap Test, Cervix/Endocervix, processed on Bandwidth ThinPrep Imaging System, with manual evaluation Last [...] Mazariegos MD PATHOLOGY ORDERABLES Performing Organization Address City/State/[facility] Co de Phone Number [facility] [address] [place] [address] documented in this encounter Visit Diagnoses Not on filedocumented in this encounter Care Teams Assistant Professor Of Criminal Justice Relationship Specialty Start Date End Date Alejandro Early MD [address] [place] [address] [place] [address] PCP - General 01/29/10 01/15/11 documented as of this encounter
--- OUTSIDE RECORDS SUMMARY | 2024-07-28 02:07 | XMS_ITS | Encounter Summary ---
Author Organization [facility] Address [address] [place] [address] Care Team Providers Care Recruiter Name Role Phone Alejandro Early MD Primary Care Provider [phone] Encounter Details Date Type Department Care Team (Late st Contact Info) Description 09/17/2004 Results Only [facility] - Maple conversion [address] [place] [address] Thor Mazariegos MD [address] [facility] [facility] [address] [address] [address] Social History Tobacco Use Types [...] ? AYLIN ALFONSO ? Accession #: ? [id number] : ? 1960 (Age: 44) ??F ?Collect [...] Mazariegos MD PATHOLOGY ORDERABLES Performing Organization Address City/State/[facility] Co de Phone Number [facility] [address] [place] [address] documented in this encounter Visit Diagnoses Not on filedocumented in this encounter Care Teams Recruiter Relationship Specialty Start Date End Date Alejandro Early MD [address] [place] [address] [place] [address] PCP - General 01/29/10 01/15/11 documented as of this encounter
--- OUTSIDE RECORDS SUMMARY | 2024-07-28 02:08 | XMS_ITS | Encounter Summary ---
[place] [address] Care Team Providers Care School Janitor Name Role Phone Kathy Wright APRN Primary Care Provider [phone] Encounter Details Date Type Department Care Team (Late st Contact Info) Description 10/04/2022 Telephone [place] [address] Misti Lopes Social History Tobacco Use Types [...] on filedocumented in this encounter Care Teams School Janitor Relationship Specialty Start Date End Date Kathy Wright APRN PCP - General Family Medicine 04/22/19 documented as of this encounter
--- OUTSIDE RECORDS SUMMARY | 2024-07-28 02:08 | XMS_ITS | Encounter Summary ---
Author Organization [facility] [place] [address] Care Team Providers Care Personal Development Mentor Name Role Phone Kathy Wright MARÍA Primary Care Provider [phone] Reason for Referral * Diagnostic Test (Routine) - Closed Specialty Diagnoses / Procedures Referred By Contac t Referred To Contact Radiology Diagnoses Non-small cell lung cancer, right Procedures CT Chest wo Contrast (Generic) Toño West MD [facility] [place] [address] [facility] [place] [address] Referral ID Status Reason Start Date Expiration Date V isits Requested Visits Authorized [id number] Closed Specialty Service Requested 07/24/2021 01/24/2023 1 1 Reason for Visit * Diagnostic Test (Routine) - Closed Specialty Diagnoses / Procedures Referred By Contvincent t Referred To Contact Radiology Diagnoses Non-small cell lung cancer, right Procedures CT Chest wo Contrast (Generic) Toño West MD [facility] [place] [address] [facility] [place] [address] Referral ID Status Reason Start Date Expiration Date V isits Requested Visits Authorized [id number] Closed Specialty Service Requested 07/24/2021 01/24/2023 1 1 Encounter Details Date Type Department Care Team (Late st Contact Info) Description 03/12/2022 11:44 AM EDT - 03/12/2022 12:50 PM EDT Hospital [place] [address] Toño West MD [facility] [place] [address] Non-small cell lung cancer, right Discharge Disposition: [...] propion-salmeteroL (Advair HFA) 230-21 mcg/actuation HFA Aerosol InhalerIndications:Wrapper Off doc obstructive pulmonary disease, unspecified COPD type [...] have questions please contact the health care services manager that requested your imaging first. ? Narrative [...] left breast soft tissues captured in the [id number]. Skeletal structures: Stable long-standing T12 compression deformity. [...] asymmetric left breast soft tissuescaptured in the [id number]. Skeletal structures: Stable long-standing T12 compression deformity. [...] who have questions please contactthe health care services manager that requested your imaging first. Toño West MD IMG CT ORDERABLE S documented in this encounter Visit Diagnoses Diagnosis Non-small cell lung cancer, right documented in this encounter Care Teams Personal Development Mentor Relationship Specialty Start Date End Date Kathy Wright, COIL WINDER PCP - General Family Medicine 04/22/19 documented as of this encounter
--- OUTSIDE RECORDS SUMMARY | 2024-07-28 02:08 | XMS_ITS | Encounter Summary ---
[place] [address] Care Team Providers Care Vp Data Name Role Phone Kathy Wright APRN Primary Care Provider [phone] Encounter Details Date Type Department Care Team (Late st Contact Info) Description 01/23/2022 Telephone [place] [address] Misti Lopes Social History Tobacco Use Types [...] on filedocumented in this encounter Care Teams Vp Data Relationship Specialty Start Date End Date Kathy Wright APRN PCP - General Family Medicine 04/22/19 documented as of this encounter
--- OUTSIDE RECORDS SUMMARY | 2024-07-28 02:08 | XMS_ITS | Encounter Summary ---
[place] [address] Care Team Providers Care Program Management Intern Name Role Phone Kathy Wright TELEVISION PRODUCER Primary Care Provider [phone] Encounter Details Date Type Department Care Team (Late st Contact Info) Description 04/11/2020 Telephone Hematology [place] [address] Radha Bynum, RN Social History Tobacco Use [...] AM EDT Request from provider: JARETH at [facility] in 1 months, call her with the [...] have labs drawn on 05/02 locally at [facility]. Encouraged her to call back should she have further questions or concerns. community health representative to follow-up on lab results on 05/02 and call patient with results. documented in this encounter Plan of Treatment Not on file documented as of this encounter Visit Diagnoses Diagnosis Non-small cell lung cancer, right documented in this encounter Care Teams Program Management Intern Relationship Specialty Start Date End Date Kathy Wright, MARÍA PCP - General Family Medicine 04/22/19 documented as of this encounter
--- OUTSIDE RECORDS SUMMARY | 2024-07-28 02:08 | XMS_ITS | Encounter Summary ---
Author Organization [facility] Address [facility] [place] [address] Care Team Providers Care Department Of Natural Resources Officer Name Role Phone Kathy Wright APRN Primary Care Provider [phone] Encounter Details Date Type Department Care Team [...] on filedocumented in this encounter Care Teams Department Of Natural Resources Officer Relationship Specialty Start Date End Date Kathy Wright APRN PCP - General Family Medicine 04/22/19 documented as of this encounter
--- OUTSIDE RECORDS SUMMARY | 2024-07-28 02:08 | XMS_ITS | Encounter Summary ---
Author Organization [place] [address] Care Team Providers Care Fashion Artist Name Role Phone Kathy Wright LOCKER ROOM CLERK Primary Care Provider [phone] Encounter Details Date Type Department Care Team (Latest Contact Info) Description 03/12/2022 12:51 PM EDT - 03/12/2022 11:59 PM EDT Hospital Encounter Hematology [place] [address] Non-small cell lung cancer, right Discharge Disposition: [...] propion-salmeteroL (Advair HFA) 230-21 mcg/actuation HFA Aerosol InhalerIndications:Dioramist doc obstructive pulmonary disease, unspecified COPD type [...] cell lung cancer, right COMPREHENSIVE METABOLIC PANEL STAT 03/12/2022 1:12 PM EDT Non-small cell lung cancer, right documented in this encounter Results * (ABNORMAL) Differential, Automated (03/12/2022 1:12 PM EDT) Neutrophil % 55.9 % [facility] Neutrophil Absolute 4.96 1.70 - 6.10 x10(3)/[facility] Lymph % 32.5 % [facility] Lymphocytes Abs 2.9 0.9 - 3.2 x10(3)/[facility] Monocyte % 6.3 % [facility] Monocyte Abs 0.6 0.3 - 0.9 x10(3)/[facility] Eos % 3.5 % [facility] Eosinophils Abs 0.3 0.0 - 0.4 x10(3)/[facility] Basophil % 0.9 % [facility] Baso Absolute 0.1 0.0 - 0.1 x10(3)/[facility] Immature Gran % 0.90 % [facility] Comment: Immature granulocytes(IG's)percentage and absolute count will include metamyelocytes, myelocytes, and promyelocytes. Blood smears from CBCs yielding IG's will be scanned manually for concordance. If this scan disagrees with the automated IG or if promyelocytes are noted, a manual differential will be performed. Immature Gran Absolute 0.08(H) 0.00 - 0.04 x10(3)/[facility] Blood 03/12/2022 1:12 PM EDT 03/12/2022 1:30 PM EDT Narrative Resulting Agency Comment Spec In Lab Toño West MD HEMATOLOGY ORDER KATHY [facility] [place] [address] * Hemogram (03/12/2022 1:12 PM EDT) Pathologist [facility] White Blood Cell 8.9 4.0 - 9.5 x10(3)/[facility] LABOR[facility] Red Blood Cell 4.01 4.00 - 5.21 x10(6)/[facility] Hemoglobin 12.7 11.7 - 15.5 g/dL [facility] Hematocrit 36.9 35.7 - 45.8 % [facility] Mean Cell Volume 92.0 82.6 - 94.4 [facility] Mean Cell Hemoglobin 31.7 27.1 - 32.[address] [facility] Mean Cell Hemoglobin Concentration 34.4 31.7 - 35.0 g/dL [facility] Platelet 229 145 - 357 x10(3)/[facility] RDW Standard Deviation 45.6 37.0 - 46.[address] [facility] RDW coefficient of variation 13.5 11.5 - 14.1 % [facility] Mean Platelet Volume 9.7 7.6 - 12.[address] [facility] NRBC% auto 0.0 % [facility] NRBC Absolute 0.000 0.000 - 0.000 x10(3)/[facility] Blood 03/12/2022 1:12 PM EDT 03/12/2022 1:30 PM EDT Narrative Resulting Agency Comment Spec In Lab Toño West MD HEMATOLOGY ORDER KATHY Performing Organization Address City/[facility]/ZIP Co de Phone Number [facility] [place] [address] * (ABNORMAL) Lactate Dehydrogenase (03/12/2022 1:12 PM EDT) Lactate Dehydrogenase 245(H) 110 - 220 unit/L [facility] Blood 03/12/2022 1:12 PM EDT 03/12/2022 1:30 PM EDT Narrative Resulting Agency Comment Spec In Lab Toño West MD CHEMISTRY ORDERA BLES Performing Organization Address City/[facility]/ZIP Co de Phone Number [facility] [place] [address] * (ABNORMAL) Comprehensive metabolic panel (non-fasting) (03/12/2022 1:12 PM EDT) Glucose 110 65 - 199 mg/dL [facility] Comment:Diabetes: >=200 mg/d L plus symptoms Blood Urea Nitrogen 13 8 - 18 mg/dL [facility] Creatinine 1.13 0.70 - 1.20 mg/dL [facility] Sodium 139 135 - 145 mmol/L [facility] Potassium 4.5 3.5 - 5.0 mmol/L [facility] Comment: Please note: ??Patients with WBC >100,000 may have falsely elevated Potassium levels. ??For accurate Potassium quantification in these patients send serum separator tube (gold top) for subsequent determinations. ??Contact the Clinical Chemistry Laboratory if there are any questions. Chloride 105 98 - 107 mmol/L [facility] Carbon Dioxide 22 22 - 31 mmol/L [facility] Anion Gap 12 5 - 15 mmol/L [facility] Calcium 9.8 8.5 - 10.5 mg/dL [facility] Protein, Total 7.4 6.1 - 8.0 g/dL [facility] Albumin 4.4 3.2 - 5.2 g/dL [facility] Aspartate Aminotransferase 65(H) 0 - 30 unit/L [facility] Alanine Aminotransferase 82(H) 0 - 30 unit/L [facility] Alkaline Phosphatase 107(H) 35 - 105 unit/L [facility] Bilirubin, Total 0.4 0.2 - 1.3 mg/dL [facility] Est Glomerular Filtration Rate 52(L) >=60 mL/min/1. 73 m?? [facility] Comment: This patient? s estimated [...] Lab Toño West MD CHEMISTRY ORDERA BLEVinod [facility] [place] [address] documented in this encounter Visit Diagnoses Diagnosis Non-small cell lung cancer, right documented in this encounter Care Teams Fashion Artist Relationship Specialty Start Date End Date Kathy Wright APRN PCP - General Family Medicine 04/22/19 documented as of this encounter
--- OUTSIDE RECORDS SUMMARY | 2024-07-28 02:08 | XMS_ITS | Encounter Summary ---
Author Organization [facility] [place] [address] Care Team Providers Care Line Out Man Name Role Phone Kathy Wright APRN Primary Care Provider [phone] Reason for Visit * Reason Comments Follow-up Lung Cancer Encounter Details Date Type Department Care Team (Late st Contact Info) Description 12/10/2022 1:45 PM EST Office Visit [place]ematology [place] [address] Toño West MD [facility] [place] [address] Non-small cell lung cancer, right (Primary Dx) [...] RLL.??A dedicated??CT Chest was performed??07/02/18??which demonstrated stable xwbq-gh-rvxn nodules in the RLL, largest measuring 9 [...] 2.78) performed by Juan Ny MD at [facility] MAIN OR ? ? PRO INJECTION ANES AGENT &/ STEROID INTERCOSTAL NERVE EA ADDL LEVEL Right 10/06/2019 NERVE BLOCK, INTERCOSTAL NERVE, MULTIPLE (WRVU 1.68) performed by Juan Ny MD at [facility] MAIN OR ??? PRO THORACOSCOPY SURG LOBECTOMY Right 10/06/2019 @ROBOT XI THORACOSCOPY,SURGICAL,W\LOBECTOMY,TOTAL OR SEGMENTAL (WRVU 24.64) performed by Juan Ny MD at [facility] MAIN OR ??? PRO THORACOSCOPY WITH MEDIASTINAL AND REGIONAL LYMPHADENECTOMY Right 10/06/2019 @ROBOT XI THORACOSCOPY,SURG; W/MEDIASTINAL& REGIONAL LYMPHADENECTOMY (WRVU 4.12) performed by Juan Ny MD at [facility] MAIN OR ??? 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 I advised her strongly to not restart [...] Primary documented in this encounter Care Teams Line Out Man Relationship Specialty Start Date End Date Kathy Wright APRN PCP - General Family Medicine 04/22/19 documented as of this encounter
--- OUTSIDE RECORDS SUMMARY | 2024-07-28 02:08 | XMS_ITS | Encounter Summary ---
Author Organization [facility] Address [facility] [place] [address] Care Team Providers Care Hydraulic Pile Hammer Operator Name Role Phone Kathy Wright OPTICAL EFFECTS CAMERA OPERATOR Primary Care Provider [phone] Encounter Details Date Type Department Care Team (Latest Contact Info) Description 04/25/2020 9:00 AM EDT TH Visit (TeleHealth) [place] [address] Timo Garcia MD [facility] [place] [address] Chronic obstructive pulmonary disease, unspecified COPD type [...] CRITICAL CARE?? Pulmonary and [place] [address] Telephone Follow-up visit Follow-up 59 y.o. female [...] her. She is planning on going to [place] shortly for the summer. PAST MEDICAL HISTORY: [...] 2.78) performed by Juan Ny MD at [facility] MAIN OR ? ? PRO INJECTION ANES AGENT &/ STEROID INTERCOSTAL NERVE EA ADDL LEVEL Right 10/06/2019 NERVE BLOCK, INTERCOSTAL NERVE, MULTIPLE (WRVU 1.68) performed by Juan Ny MD at [facility] MAIN OR ??? PRO THORACOSCOPY SURG LOBECTOMY Right 10/06/2019 @ROBOT XI THORACOSCOPY,SURGICAL,W\LOBECTOMY,TOTAL OR SEGMENTAL (WRVU 24.64) performed by Juan Ny MD at [facility] MAIN OR ??? PRO THORACOSCOPY WITH MEDIASTINAL AND REGIONAL LYMPHADENECTOMY Right 10/06/2019 @ROBOT XI THORACOSCOPY,SURG; W/MEDIASTINAL& REGIONAL LYMPHADENECTOMY (WRVU 4.12) performed by Juan Ny MD at [facility] MAIN OR ??? PRO THORACOSCOPY WITH WEDGE RESECTION AND ANATOMIC LUNG RESECTN Right 10/06/2019 @ROBOT XI THORACOSCOPY,SURG; W/DX WEDGE RESC W/ANATOMIC LUNG RESC (WRVU 3) performed by Juan Ny MD at [facility] MAIN OR MEDICATIONS: Current Outpatient Medications Medication [...] She is planning on spending thesummer in [place] and I encouraged her to be cautious with respect to the ongoing pandemic. Telephone visit: 35 minutes. documented in this encounter Plan of Treatment Not on file documented as of this encounter Visit Diagnoses Diagnosis Chronic obstructive pulmonary disease, unspecified COPD type documented in this encounter Care Teams Hydraulic Pile Hammer Operator Relationship Specialty Start Date End Date Kathy Wright APRN PCP - General Family Medicine 04/22/19 documented as of this encounter
--- OUTSIDE RECORDS SUMMARY | 2024-07-28 02:08 | XMS_ITS | Encounter Summary ---
[place] [address] Care Team Providers Care Baseball Scout Name Role Phone GerardoKathy nicolas Butch DANI[place] Primary Care Provider [phone] Encounter Details Date Type Department Care Team (Late st Contact Info) Description 06/22/2021 Telephone [place]ology [place] [id number] Miriam Polanco MSW CARE MANAGEMENT Social History [...] MSW - 06/22/2021 11:47 AM EDT [employer] Lieutenant-Social Work Note [facility]/Office of Care Management AMADO referral received from March regarding transportation needs. Pt uses [facility] for medical transportation. She needs medical confirmation that she can have someone accompany her on her rides due to her disability. Her son Blaze typically serves in this role. Attempted to reach pt; left voicemailrequesting call back. Contacted [facility] ([phone]) and spoke with Miriam Reese. She advised that pt's medical verificationof need for passenger to accompany her is expiring on 07/08/21. Pt has appointments on 07/24 for whichshe will need transportation. Miriam advised that new letter can be sent directly to [place] [employer] Access. Letter written and sent to [facility] (fax: [phone]) on 06/21/21 with confirmation of receipt. Also scheduled transportation for pt for her 07/24 appointments. Plan: -CCM-SW remains available for psychosocial assessment, support, and resource coordination as needed. LESLY Loomis Pager: [phone] documented in this encounter Plan of Treatment Not on file documented as of this encounter Visit Diagnoses Not on filedocumented in this encounter Care Teams Baseball Scout Relationship Specialty Start Date End Date Kathy Wright, MARÍA PCP - General Family Medicine 04/22/19 documented as of this encounter
--- OUTSIDE RECORDS SUMMARY | 2024-07-28 02:08 | XMS_ITS | Encounter Summary ---
[place] [address] Care Team Providers Care Well Tender Name Role Phone GerardoKathy nicolas Butch DANIEL Primary Care Provider [phone] Reason for Visit * Reason Onset Date Comments Prior Authorization 06/14/2020 Encounter Details Date Type Department Care Team (Late st Contact Info) Description 06/14/2020 Telephone Hematology [place] [address] Merced Bailey Prior Authorization Social History Tobacco [...] 1:01pm: CT chest approved. Service order # [id number] Authorization # [id number] Valid: 06/14/20-12/11/20 * Telephone Encounter - Merced Kenny - 06/19/2020 12:01 PM EDT 06/19/20: 12:00pm: Authorization still in physician review process. [place] made aware. * Telephone Encounter - Merced Kenny - 06/14/2020 1:46 PM EDT PA request for CT chest w/o contrast ([id number]) submitted with clinical notes to [facility] via [facility]on. Case is in clinical review. Service order ID #: [id number] documented in this encounter Plan of Treatment Not on file documented as of this encounter Visit Diagnoses Not on filedocumented in this encounter Care Teams Well Tender Relationship Specialty Start Date End Date Kathy Wright APRN PCP - General Family Medicine 04/22/19 documented as of this encounter
--- OUTSIDE RECORDS SUMMARY | 2024-07-28 02:08 | XMS_ITS | Encounter Summary ---
Author Organization [facility] Address [facility] [place] [address] Care Team Providers Care Parts Sales Associate Name Role Phone Kathy Wright APRN Primary Care Provider [phone] Encounter Details Date Type Department Care Team (Latest Contact Info) Description 2020 10:30 AM EDT TH Visit (TeleHealth) [place] [address] Timo Garcia MD [facility] [place] [address] Chronic obstructive pulmonary disease, unspecified COPD type [...] type documented in this encounter Care Teams Parts Sales Associate Relationship Specialty Start Date End Date Kathy Wright APRN PCP - General Family Medicine 04/22/19 documented as of this encounter
--- OUTSIDE RECORDS SUMMARY | 2024-07-28 02:08 | XMS_ITS | Encounter Summary ---
[place] [address] Care Team Providers Care Regional Hr Manager Name Role Phone Kathy Wright MARÍA Primary Care Provider [phone] Encounter Details Date Type Department Care Team (Late st Contact Info) Description 05/02/2020 Telephone Hematology [place] [address] Radha Bynum RN Social History Tobacco Use [...] RN - 05/02/2020 8:19 AM EDT Follow-up: kit assembler to follow-up on BMP results tomorrow on 05/02 and will call patient with results. Call placed to Marleni to remind her of the lab need. Marleni states she did not remember to get these drawn and she is flying to [place] in 5 hours and is not able to get these drawn. She will be staying with her family for the next 2 months. Plan: Discussed above lab need with Dr. West who states he would like to get a BMP drawn when she is settled in [place]. Call placed back to Marleni to discuss. Left a voice message with the above information. No call back by end of clinic day. kit assembler to follow-up with Marleni tomorrow on 05/03. documented in this encounter Plan of Treatment Not on file documented as of this encounter Visit Diagnoses Not on filedocumented in this encounter Care Teams Regional Hr Manager Relationship Specialty Start Date End Date Kathy Wright APRN PCP - General Family Medicine 04/22/19 documented as of this encounter
--- OUTSIDE RECORDS SUMMARY | 2024-07-28 02:08 | XMS_ITS | Encounter Summary ---
[place] [address] Care Team Providers Care Rn Outpatient Surgery Name Role Phone Kathy Wright MARÍA Primary Care Provider [phone] Encounter Details Date Type Department Care Team (Late st Contact Info) Description 05/03/2020 Telephone Hematology [place] [address] Radha Bynum RN Social History Tobacco Use [...] RN - 05/03/2020 8:28 AM EDT Follow-up: appliance line assembler to follow-up with Marleni tomorrow on 05/03. She needs a BMP drawn while in [place]. Multiple calls were made to Marleni today to discuss lab draw while in [place]. No call back by [facility] clinic day. appliance line assembler to attempt again on 05/05 when back in office. documented in this encounter Plan of Treatment Not on file documented as of this encounter Visit Diagnoses Not on filedocumented in this encounter Care Teams Rn Outpatient Surgery Relationship Specialty Start Date End Date Kathy Wright APRN PCP - General Family Medicine 04/22/19 documented as of this encounter
--- OUTSIDE RECORDS SUMMARY | 2024-07-28 02:08 | XMS_ITS | Encounter Summary ---
[place] [address] Care Team Providers Care Medical Reception Name Role Phone Kathy Wright MARÍA Primary Care Provider [phone] Reason for Referral * Diagnostic Test (Routine) - Closed Specialty Diagnoses / Procedures Referred By Janie cassidy Referred To Contact Radiology Diagnoses Non-small cell lung cancer, right Procedures CT Chest wo Contrast (Generic) Toño West MD [facility] [place] [address] [facility] [place] [address] Referral ID Status Reason Start Date Expiration Date V isits Requested Visits Authorized [id number] Closed Specialty Service Requested 07/24/2021 01/24/2023 1 1 Reason for Visit * Reason Comments Follow-up Lung Cancer Encounter Details Date Type Department Care Team (Late st Contact Info) Description 07/24/2021 3:45 PM EDT Office Visit Hematology [place] [address] Toño West MD [facility] [place] [address] Adrienne Mendez APRN [facility] DR HEMATOLOGY-[place] [address] Non-small cell lung cancer, right (Primary Dx) [...] RLL.??A dedicated??CT Chest was performed??07/02/18??which demonstrated stable tgvb-ho-djod nodules in the RLL, largest measuring 9 [...] 2.78) performed by Juan Ny MD at [facility] MAIN OR ? ? PRO INJECTION ANES AGENT &/ STEROID INTERCOSTAL NERVE EA ADDL LEVEL Right 10/06/2019 NERVE BLOCK, INTERCOSTAL NERVE, MULTIPLE (WRVU 1.68) performed by Juan Ny MD at [facility] MAIN OR ??? PRO THORACOSCOPY SURG LOBECTOMY Right 10/06/2019 @ROBOT XI THORACOSCOPY,SURGICAL,W\LOBECTOMY,TOTAL OR SEGMENTAL (WRVU 24.64) performed by Juan Ny MD at [facility] MAIN OR ??? PRO THORACOSCOPY WITH MEDIASTINAL AND REGIONAL LYMPHADENECTOMY Right 10/06/2019 @ROBOT XI THORACOSCOPY,SURG; W/MEDIASTINAL& REGIONAL LYMPHADENECTOMY (WRVU 4.12) performed by Juan Ny MD at [facility] MAIN OR ??? 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 She was previously seen by a wreath maker and we offered to refer her back [...] natural history of renal impairment related to [place], where improvement m ay be slow over [...] Lactate Dehydrogenase 245(H) 110 - 220 unit/L [facility] Blood 03/12/2022 1:12 PM EDT 03/12/2022 1:30 PM EDT Narrative Resulting Agency Comment Spec In Lab Toño West MD CHEMISTRY ORDERA BLES [facility] [place] [address] * (ABNORMAL) Comprehensive metabolic panel (non-fasting) (03/12/2022 1:12 PM EDT) Glucose 110 65 - 199 mg/dL [facility] Comment:Diabetes: >=200 mg/d L plus symptoms Blood Urea Nitrogen 13 8 - 18 mg/dL [facility] - 107 mmol/L [facility] Carbon Dioxide 22 22 - 31 mmol/L [facility] Anion Gap 12 5 - 15 mmol/L [facility] Calcium 9.8 8.5 - 10.5 mg/dL [facility] Protein, Total 7.4 6.1 - 8.0 g/dL [facility] Albumin 4.4 3.2 - 5.2 g/dL [facility] Aspartate Aminotransferase 65(H) 0 - 30 unit/L [facility] Alanine Aminotransferase 82(H) 0 - 30 unit/L [facility] Alkaline Phosphatase 107(H) 35 - 105 unit/L [facility] Bilirubin, Total 0.4 0.2 - 1.3 mg/dL [facility] Est Glomerular Filtration Rate 52(L) >=60 mL/min/1. 73 m?? [facility] [...] In Lab Toño West MD CHEMISTRY ORDERA KEDAR [facility] [place] [address] * CT Chest wo Contrast (Generic) (03/12/2022 [...] who have questions please contact the health youth care specialist that requested your imaging first. ? Electronically signed by: Sheela Grace MD, [facility] ([phone]), at 03/12/2022 12:35 PM Narrative 03/12/2022 12:35 PM EDT EXAMINATION: CT [...] left breast soft tissues captured in the [id number]. Skeletal structures: Stable long-standing T12 compression deformity. [...] asymmetric left breast soft tissuescaptured in the foyim-co-gttk. Skeletal structures: Stable long-standing T12 compression deformity. [...] patients who have questions please contactthe health youth care specialist that requested your imaging first. Electronically signed by: Sheela Grace MD, [facility]([phone]), at 03/12/2022 12:35 PM Toño West MD IMG CT ORDERABLE S documented in this encounter Visit Diagnoses Diagnosis Non-small cell lung cancer, right- Primary Non-small cell lung cancer, right documented in this encounter Care Teams Medical Reception Relationship Specialty Start Date End Date Kathy Wright APRN PCP - General Family Medicine 04/22/19 documented as of this encounter
--- OUTSIDE RECORDS SUMMARY | 2024-07-28 02:08 | XMS_ITS | Encounter Summary ---
[place] [address] Care Team Providers Care Water Treatment Plant Repairer Name Role Phone Kathy Wright MENTALLY IMPAIRED TEACHER Primary Care Provider [phone] Encounter Details Date Type Department Care Team (Late st Contact Info) Description 05/08/2020 Telephone Hematology [place] [id number] Radha Bynum RN Social History Tobacco Use [...] to have a BMP drawn while in [place]. Even thoughwe have tried all last week to reach her, Let's document these attempts and try again next week. Call placed to Marleni to discuss. Voice message left. Call placed to Blaze (son) at [phone]. Multiple calls were placed with no calls back. Call placed back to Marleni to discuss. Marleni states now is not a good time to talk however I reviewed with Marleni we have been trying to reach her for a week and we just need to know where she would like to get labs while in [place]. Marleni states she will look for a place to get them drawn and call back with a date/pace she can get this done. 05/09 - call placed by to Marleni to see if she has decided where she wants to get her labs drawn while in [place]. Left a message. No call back by end of clinic day. 05/10- Call placed back to Marleni to coordinate lab draw. Marleni states she would like to get her labs drawn at [facility] located in [place], [place]. She will call them today to make an appointment and will call me back with her appointment date. Reviewed we would fax orders to them and call her back with results. She verbalized understanding. Discussed lab need with clinical executive secretary who states their are [facility] in [place], [place] and we need to know which location she would like to go to. 05/12- Call placed to Marleni to see if she had decided on lab date and which [facility] location she would like to go to. Left a message. No call back by end of clinic day. mutual fund manager to follow-up on 05/15. 05/15- Call placed to Marleni to discuss. Marleni states she would like to change the place she is getting labs and would now like to go to [facility] in [facility]. She called their toget their fax number on where we should send orders. They gave her two fax numbers and they state we can fax orders to either number. Fax number [phone] OR [phone]. Marleni plans to go Saturday 05/19. Reviewed we would call her and leave a message with the results. She verbalized understanding. Clinical executive secretary to fax CMP order to [facility]. mutual fund manager to follow-up on lab results on 05/19. documented in this encounter Plan of Treatment Not on file documented as of this encounter Visit Diagnoses Diagnosis Non-small cell lung cancer, right documented in this encounter Care Teams Water Treatment Plant Repairer Relationship Specialty Start Date End Date Kathy Wright APRN PCP - General Family Medicine 04/22/19 documented as of this encounter
--- OUTSIDE RECORDS SUMMARY | 2024-07-28 02:08 | XMS_ITS | Encounter Summary ---
Author Organization [facility] Address [facility] [place] [address] Care Team Providers Care [facility] Name Role Phone Kathy Wright APRN Primary Care Provider [phone] Reason for Visit * Consultation (Routine) - Closed Specialty Diagnoses / Procedures Referred By Janie cassidy Referred To Contact Nephrology Diagnoses Retention of urine, unspecified Chronic kidney disease, stage 3 unspecified Kathy Wright APRN [address] [place] [address] [facility] Nephrology [address] [place] [phone] Referral ID Status Reason Start Date Expiration Date V isits Requested Visits Authorized [id number] Closed Consult, Test & [facility] PCP Updated and/or Approved 09/12/2020 09/12/2021 6 6 Encounter Details Date Type Department Care Team (Latest Contact Info) Description 01/23/2021 3:00 PM EST Office Visit [place] [address] Lazarus Luu MD [facility] [place] [address] Stage 3 chronic kidney disease, [...] * Differential, Automated (01/23/2021 4:26 PM EST) Neutrophil % 51.8 % [facility] Neutrophil Absolute 4.23 1.70 - 6.10 x10(3)/[facility] Lymph % 36.5 % [facility] Lymphocytes Abs 3.0 0.9 - 3.2 x10(3)/[facility] Monocyte % 7.0 % [facility] Monocyte Abs 0.6 0.3 - 0.9 x10(3)/[facility] Eos % 3.6 % [facility] Eosinophils Abs 0.3 0.0 - 0.4 x10(3)/[facility] Basophil % 0.9 % [facility] Baso Absolute 0.1 0.0 - 0.1 x10(3)/[facility] Immature Gran % 0.20 % [facility] Comment: Immature granulocytes(IG's)percentage and absolute count will include metamyelocytes, myelocytes, and promyelocytes. Blood smears from CBCs yielding IG's will be scanned manually for concordance. If this scan disagrees with the automated IG or if promyelocytes are noted, a manual differential will be performed. Immature Gran Absolute 0.02 0.00 - 0.04 x10(3)/[facility] Blood specimen (specimen) 01/23/2021 4:26 PM EST 01/23/2021 4:48 PM EST Narrative Resulting Agency Comment Spec In Lab Lazarus Luu MD HEMATOLOGY ORDERABLE S [facility] [place] [address] * Hemogram (01/23/2021 4:26 PM EST) White Blood Cell 8.2 4.0 - 9.5 x10(3)/[facility] Red Blood Cell 4.12 4.00 - 5.21 x10(6)/[facility] Hemoglobin 12.5 11.7 - 15.5 gm/dL [facility] Hematocrit 37.6 35.7 - 45.8 % [facility] Mean Cell Volume 91.3 82.6 - 94.4 fL [facility] Mean Cell Hemoglobin 30.3 27.1 - 32.0 pg [facility] Mean Cell Hemoglobin Concentration 33.2 31.7 - 35.0 gm/dL [facility] Platelet 229 145 - 357 x10(3)/[facility] RDW Standard Deviation 43.5 37.0 - 46.0 fL [facility] RDW coefficient of variation 13.1 11.5 - 14.1 % [facility] Mean Platelet Volume 9.8 7.6 - 12.9 fL [facility] NRBC% auto 0.0 % [facility] NRBC Absolute 0.000 0.000 - 0.000 x10(3)/mcL [facility] Blood specimen (specimen) 01/23/2021 4:26 PM EST 01/23/2021 4:48 PM EST Narrative Resulting Agency Comment Spec In Lab Lazarus Luu MD HEMATOLOGY ORDERABLE S Performing Organization Address City/[facility]/ZIP Co de Phone Number [facility] [place] [address] * Phosphorus (01/23/2021 4:26 PM EST) Phosphorus 3.2 2.5 - 4.5 mg/dL [facility] Blood specimen (specimen) 01/23/2021 4:26 PM EST 01/23/2021 4:48 PM EST Narrative Resulting Agency Comment Spec In Lab Lazarus Luu MD CHEMISTRY ORDERABLES Performing Organization Address City/[facility] Co de Phone Number [facility] [place] [address] * Albumin Level (01/23/2021 4:26 PM EST) Albumin 4.5 3.2 - 5.2 gm/dL [facility] Blood specimen (specimen) 01/23/2021 4:26 PM EST 01/23/2021 4:48 PM EST Narrative Resulting Agency Comment Spec In Lab Lazarus Luu MD CHEMISTRY ORDERABLES Performing Organization Address City/[facility] Co de Phone Number [facility] [place] [address] * (ABNORMAL) PTH (01/23/2021 4:26 PM EST) Parathyroid Hormone 76(H) 15 - 65 pg/mL [facility] Blood specimen (specimen) 01/23/2021 4:26 PM EST 01/23/2021 4:48 PM EST Narrative Resulting Agency Comment Spec In Lab Lazarus Luu MD CHEMISTRY ORDERABLES [facility] [place] [address] * (ABNORMAL) Basic Metabolic Panel (non-fasting) (01/23/2021 4:26 PM EST) Glucose 97 65 - 199 mg/dL [facility] Comment:Diabetes: >=200 mg/d L plus symptoms Blood Urea Nitrogen 22(H) 8 - 18 mg/dL [facility] Creatinine 1.39(H) 0.70 - 1.20 mg/dL [facility] Sodium 139 135 - 145 mmol/L [facility] Potassium 4.3 3.5 - 5.0 mmol/L [facility] Comment: Please note: ??Patients with WBC >100,000 may have falsely elevated Potassium levels. ??For accurate Potassium quantification in these patients send serum separator tube (gold top) for subsequent determinations. ??Contact the Clinical Chemistry Laboratory if there are any questions. Chloride 104 98 - 107 mmol/L [facility] Carbon Dioxide 24 22 - 31 mmol/L [facility] Anion Gap 11 5 - 15 mmol/L [facility] Calcium 9.9 8.5 - 10.5 mg/dL [facility] Est Glomerular Filtration Rate 41(L) >=60 mL/min/1. 73 m?? [facility] Comment: This patient? s estimated glomerular [...] Luu MD CHEMISTRY ORDERABLES Performing Organization Address [facility] Co de Phone Number [facility] [place] [address] * U Albumin/Cre Ratio (01/23/2021 4:15 PM EST) Albumin / Creatinin Ratio, Urine 6 0 - 29 mcg/mg Cr [facility] Comment: Reference Ranges: <30 [...] Supplements (2012) 2, 357? 362 Albumin, Urine 8.6 mg/L [facility] Creatinine, Urine 137 mg/dL [facility] Urine specimen (specimen) 01/23/2021 4:15 PM EST 01/23/2021 4:58 PM EST Narrative Resulting Agency Comment Spec In Lab Lazarus Luu MD URINE ORDERABLES Performing Organization Address City/[facility]/ZIP Co de Phone Number [facility] [place] [address] documented in this encounter Visit Diagnoses Diagnosis Stage 3 chronic kidney disease, unspecified whether stage 3a or 3b CKD documented in this encounter Care Teams [facility] Hospice Relationship Specialty Start Date End Date Kathy Wright APRN PCP - General Family Medicine 04/22/19 documented as of this encounter
--- OUTSIDE RECORDS SUMMARY | 2024-07-28 02:08 | XMS_ITS | Encounter Summary ---
Author Organization [facility] [place] [address] Care Team Providers Care Vfx Artist Name Role Phone Kathy Wright APRN Primary Care Provider [phone] Encounter Details Date Type Department Care Team (Late st Contact Info) Description 08/21/2020 4:20 PM EDT Ancillary Procedure Radiology Library at [facility] [place] [address] Kathy Wright APRN [address], [place] [id number] Social History Tobacco Use Types Packs/Day Years [...] APRN IMG FILM LIBRARY ORD ERABLES [place], [place] documented in this encounter Visit Diagnoses Not on filedocumented in this encounter Care Teams Vfx Artist Relationship Specialty Start Date End Date Kathy Wright, MARÍA PCP - General Family Medicine 04/22/19 documented as of this encounter
--- OUTSIDE RECORDS SUMMARY | 2024-07-28 02:08 | XMS_ITS | Encounter Summary ---
Author Organization [facility] [place] [address] Care Team Providers Care Associate Media Planner Name Role Phone Kathy Wright MARÍA Primary Care Provider [phone] Encounter Details Date Type Department Care Team (Late st Contact Info) Description 08/24/2020 [place] [address] John Heredia CMA Social History Tobacco Use [...] MA - 08/24/2020 1:21 PM EDT 5C Payable Representative Pre-Telemedicine Phone Note [x] Patient not reached [] Patient reached and the following information was reviewed/obtained per protocol: [] Confirmed patient name and date of [] Confirmed location of patient - TeleVisit is taking place in [] [place] [] [place] [] [place] [] [place] [] Confirmed Pt [...] on filedocumented in this encounter Care Teams Associate Media Planner Relationship Specialty Start Date End Date Kathy Wright APRN PCP - General Family Medicine 04/22/19 documented as of this encounter
--- OUTSIDE RECORDS SUMMARY | 2024-07-28 02:08 | XMS_ITS | Encounter Summary ---
[place] [address] Care Team Providers Care Fire Control Officer Name Role Phone Kahty Wright MARÍA Primary Care Provider [phone] Reason for Referral * Diagnostic Test (Routine) - Closed Specialty Diagnoses / Procedures Referred By Contac t Referred To Contact Radiology Diagnoses Non-small cell lung cancer, right Procedures CT Chest wo Contrast (Generic) Adrienne Mendez APRN [facility] [place]ATOLOG[place] [address] [facility] [place] [address] Referral ID Status Reason Start Date Expiration Date V isits Requested Visits Authorized [id number] Closed Specialty Service Requested 03/13/2022 09/12/2023 1 1 * Consultation (Routine) - Closed Specialty Diagnoses / Procedures Referred By Janie cassidy Referred To Contact Diagnoses Non-small cell lung cancer, right Chronic obstructive pulmonary disease, unspecified COPD type Adrienne Mendez APRN [facility] [place]ATOLOGY[place] [address] Referral ID Status Reason Start Date Expiration Date V isits Requested Visits Authorized [id number] Closed Consult, Test & Treat 03/13/2022 09/09/2022 1 1 Reason for Visit * Reason Comments Follow-up Encounter Details Date Type Department Care Team (Late st Contact Info) Description 03/12/2022 2:15 PM EDT Office Visit Hematology [place] [address] Toño West MD [facility] [place] [address] Adrienne Mendez APRN [facility] DR [place]ATOLOGY[place] [address] Non-small cell lung cancer, right; Chronic obstructive [...] RLL.??A dedicated??CT Chest was performed??07/02/18??which demonstrated stable [id number] nodules in the RLL, largest measuring 9 [...] 2.78) performed by Juan Ny MD at [facility] MAIN OR ? ? PRO INJECTION ANES AGENT &/ STEROID INTERCOSTAL NERVE EA ADDL LEVEL Right 10/06/2019 NERVE BLOCK, INTERCOSTAL NERVE, MULTIPLE (WRVU 1.68) performed by Juan Ny MD at [facility] MAIN OR ??? PRO THORACOSCOPY SURG LOBECTOMY Right 10/06/2019 @ROBOT XI THORACOSCOPY,SURGICAL,W\LOBECTOMY,TOTAL OR SEGMENTAL (WRVU 24.64) performed by Juan Ny MD at [facility] MAIN OR ??? PRO THORACOSCOPY WITH MEDIASTINAL AND REGIONAL LYMPHADENECTOMY Right 10/06/2019 @ROBOT XI THORACOSCOPY,SURG; W/MEDIASTINAL& REGIONAL LYMPHADENECTOMY (WRVU 4.12) performed by Juan Ny MD at [facility] OR ??? 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 She will also continue to follow with her PCP for routine health maintenance. # Cr today is improved. I recommended that she continue with increased hydration # Mildly elevated liver enzymes are stable over the past 6 mo- will continue to follow Referral to pulmonology at [facility] or [place]. RTC in 6 months with labs, chest [...] who have questions please contact the health child care giver that requested your imaging first. ? Narrative 12/10/2022 2:04 PM EST EXAMINATION: CT [...] patients who have questions please contactthe health child care giver that requested your imaging first. Adrienne Mendez [facility] CT ORDERABLES * (ABNORMAL) Comprehensive metabolic panel (non-fasting) (12/10/2022 11:23 AM EST) Glucose 125 65 - 199 mg/dL [facility] Comment:Diabetes: >=200 mg/d L plus symptoms Blood Urea Nitrogen 17 8 - 18 mg/dL [facility] Creatinine 1.29(H) 0.70 - 1.20 mg/dL [facility] Sodium 138 135 - 145 mmol/L [facility] Potassium 4.4 3.5 - 5.0 mmol/L [facility] Comment: Please note: ??Patients with WBC >100,000 may have falsely elevated Potassium levels. ??For accurate Potassium quantification in these patients send serum separator tube (gold top) for subsequent determinations. ??Contact the Clinical Chemistry Laboratory if there are any questions. Chloride 102 98 - 107 mmol/L [facility] Carbon Dioxide 25 22 - 31 mmol/L [facility] Anion Gap 11 5 - 15 mmol/L [facility] Calcium 10.3 8.5 - 10.5 mg/dL [facility] Protein, Total 7.9 6.1 - 8.0 g/dL [facility] Albumin 4.4 3.2 - 5.2 g/dL [facility] Aspartate Aminotransferase 31(H) 0 - 30 unit/L [facility] Alanine Aminotransferase 35(H) 0 - 30 unit/L [facility] Alkaline Phosphatase 129(H) 35 - 105 unit/L [facility] Bilirubin, Total 0.3 0.2 - 1.3 mg/dL [facility] Est Glomerular Filtration Rate 47(L) >=60 mL/min/1. 73 m?? [facility] Comment: This patient's estimated GFR was [...] Agency Comment Spec In Lab Adrienne Mendez RETAIL CLIENT SOLUTIONS CONSULTANT CHEMISTRY ORDERABL ES [facility] [address] * Lactate Dehydrogenase (12/10/2022 11:23 AM EST) Lactate Dehydrogenase 211 110 - 220 unit/L [facility] Blood 12/10/2022 11:2 3 AM EST 12/10/2022 11:31 AM EST Narrative Resulting Agency Comment Spec In Lab Adrienne Mendez RETAIL CLIENT SOLUTIONS CONSULTANT CHEMISTRY ORDERABL ES [facility] [address] documented in this encounter Visit Diagnoses Diagnosis Non-small cell lung cancer, right Chronic obstructive pulmonary disease, unspecified COPD type Non-small cell lung cancer, right documented in this encounter Care Teams Fire Control Officer Relationship Specialty Start Date End Date Kathy Wright, RETAIL CLIENT SOLUTIONS CONSULTANT PCP - General Family Medicine 04/22/19 documented as of this encounter
--- OUTSIDE RECORDS SUMMARY | 2024-07-28 02:08 | XMS_ITS | Encounter Summary ---
[place] [address] Care Team Providers Care Loan Interviewer Name Role Phone GerardoKathy nicolas Butch DANIEL Primary Care Provider [phone] Encounter Details Date Type Department Care Team (Late st Contact Info) Description 08/07/2021 Notes Only Hematology [place] [address] Miriam Polanco MSW CARE MANAGEMENT Social History [...] MSW - 08/07/2021 4:44 PM EDT Continuing Manager Local-Social Work Note [facility]/Office of Care Management Referral/Contact: Received completed/updated Advance [...] enclosed envelope. Intervention(s): Advance care planning Plan: [facility] remains available for psychosocial assessment, support, and resource coordination as needed. LESLY Loomis Pager: [phone] documented in this encounter Plan of Treatment Not on file documented as of this encounter Visit Diagnoses Not on filedocumented in this encounter Care Teams Loan Interviewer Relationship Specialty Start Date End Date Kathy Wright, MARÍA PCP - General Family Medicine 04/22/19 documented as of this encounter
--- OUTSIDE RECORDS SUMMARY | 2024-07-28 02:08 | XMS_ITS | Encounter Summary ---
[place] [address] Care Team Providers Care Asphalt Paving Superintendent Name Role Phone Kathy Wright APRN Primary Care Provider [phone] Encounter Details Date Type Department Care Team (Late st Contact Info) Description 07/17/2020 Tele[place] [address] Marry Wellington LNA Social History Tobacco Use [...] on filedocumented in this encounter Care Teams Asphalt Paving Superintendent Relationship Specialty Start Date End Date Kathy Wright APRN PCP - General Family Medicine 04/22/19 documented as of this encounter
--- OUTSIDE RECORDS SUMMARY | 2024-07-28 02:08 | XMS_ITS | Encounter Summary ---
Author Organization [facility] [place] [address] Care Team Providers Care Stunt Person Name Role Phone Kathy Wright APRN Primary Care Provider [phone] Encounter Details Date Type Department Care Team (Late st Contact Info) Description 06/27/2020 Orders Only Hematology [place] [address] Toño West MD [facility] [place] [address] Non-small cell lung cancer, right Social History [...] right documented in this encounter Care Teams Stunt Person Relationship Specialty Start Date End Date Kathy Wright APRN PCP - General Family Medicine 04/22/19 documented as of this encounter
--- OUTSIDE RECORDS SUMMARY | 2024-07-28 02:08 | XMS_ITS | Encounter Summary ---
Author Organization [facility] [place] [address] Care Team Providers Care Associate Professor Of History Name Role Phone Kathy Wright Butch DANIEL Primary Care Provider [phone] Encounter Details Date Type Department Care Team (Latest Contact Info) Description 07/24/2021 12:55 PM EDT - 07/24/2021 1:31 PM EDT Hospital Encounter [place] [address] Non-small cell lung cancer, right Discharge Disposition: [...] propion-salmeteroL (Advair HFA) 230-21 mcg/actuation HFA Aerosol InhalerIndications:Count Room Clerk doc obstructive pulmonary disease, unspecified COPD type [...] lung cancer, right COMPREHENSIVE METABOLIC PANEL STAT 07/24/2021 1:22 PM EDT Non-small cell lung cancer, right documented in this encounter Results * (ABNORMAL) Differential, Automated (07/24/2021 1:22 PM EDT) Neutrophil % 48.8 % [facility] Neutrophil Absolute 3.77 1.70 - 6.10 x10(3)/mc L [facility] Lymph % 37.7 % [facility] Lymphocytes Abs 2.9 0.9 - 3.2 x10(3)/mc L [facility] Monocyte % 7.8 % [facility] Monocyte Abs 0.6 0.3 - 0.9 x10(3)/[facility] Eos % 4.1 % [facility] Eosinophils Abs 0.3 0.0 - 0.4 x10(3)/[facility] Basophil % 1.0 % [facility] Baso Absolute 0.1 0.0 - 0.1 x10(3)/[facility] Immature Gran % 0.60 % [facility] Comment: Immature granulocytes(IG's)percentage and absolute count will include metamyelocytes, myelocytes, and promyelocytes. Blood smears from CBCs yielding IG's will be scanned manually for concordance. If this scan disagrees with the automated IG or if promyelocytes are noted, a manual differential will be performed. Immature Gran Absolute 0.05(H) 0.00 - 0.04 x10(3)/[facility] Blood 07/24/2021 1:22 PM EDT 07/24/2021 1:33 PM EDT Narrative Resulting Agency Comment Spec In Lab Adrienne Joseph Mendez TRACK REPAIRER HEMATOLOGY ORDERAB LES [facility] [place] [address] * (ABNORMAL) Hemogram (07/24/2021 1:22 PM EDT) White Blood Cell 7.7 4.0 - 9.5 x10(3)/[facility] Red Blood Cell 4.04 4.00 - 5.21 x10(6)/[facility] Hemoglobin 12.4 11.7 - 15.5 gm/dL [facility] Hematocrit 37.7 35.7 - 45.8 % [facility] Mean Cell Volume 93.3 82.6 - 94.4 fL [facility] Mean Cell Hemoglobin 30.7 27.1 - 32.0 pg [facility] Mean Cell Hemoglobin Concentration 32.9 31.7 - 35.0 gm/dL [facility] Platelet 198 145 - 357 x10(3)/mc L [facility] RDW Standard Deviation 47.7(H) 37.0 - 46.0 fL [facility] RDW coefficient of variation 13.9 11.5 - 14.1 % [facility] Mean Platelet Volume 9.5 7.6 - 12.9 fL [facility] NRBC% auto 0.0 % [facility] NRBC Absolute 0.000 0.000 - 0.000 x10(3)/mc L [facility] Blood 07/24/2021 1:22 PM EDT 07/24/2021 1:33 PM EDT Narrative Resulting Agency Comment Spec In Lab Adrienne Mendez TRACK REPAIRER HEMATOLOGY ORDERAB LES [facility] [place] [address] * (ABNORMAL) Comprehensive metabolic panel (non-fasting) (07/24/2021 1:22 PM EDT) Glucose 88 65 - 199 mg/dL [facility] Comment:Diabetes: >=200 mg/d L plus symptoms Blood Urea Nitrogen 16 8 - 18 mg/dL [facility] Creatinine 1.31(H) 0.70 - 1.20 mg/dL [facility] Sodium 140 135 - 145 mmol/L [facility] Potassium 5.0 3.5 - 5.0 mmol/L [facility] Comment: Please note: ??Patients with WBC >100,000 may have falsely elevated Potassium levels. ??For accurate Potassium quantification in these patients send serum separator tube (gold top) for subsequent determinations. ??Contact the Clinical Chemistry Laboratory if there are any questions. Chloride 103 98 - 107 mmol/L [facility] Carbon Dioxide 26 22 - 31 mmol/L [facility] Anion Gap 11 5 - 15 mmol/L [facility] Calcium 9.6 8.5 - 10.5 mg/dL [facility] Protein, Total 7.3 6.1 - 8.0 gm/dL [facility] Albumin 4.5 3.2 - 5.2 gm/dL [facility] Aspartate Aminotransferase 66(H) 0 - 30 unit/L [facility] Alanine Aminotransferase 88(H) 0 - 30 unit/L [facility] Alkaline Phosphatase 119(H) 35 - 105 unit/L [facility] Bilirubin, Total 0.2 0.2 - 1.3 mg/dL [facility] Est Glomerular Filtration Rate 44(L) >=60 mL/min/1. 73 m?? [facility] Comment: This patient? s estimated [...] Agency Comment Spec In Lab Adrienne Mendez TRACK REPAIRER CHEMISTRY ORDERABL ES [facility] [place] [address] * (ABNORMAL) Lactate Dehydrogenase (07/24/2021 1:22 PM EDT) Lactate Dehydrogenase 270(H) 110 - 220 unit/L [facility] Blood 07/24/2021 1:22 PM EDT 07/24/2021 1:33 PM EDT Narrative Resulting Agency Comment Spec In Lab Adrienne Mendez TRACK REPAIRER CHEMISTRY ORDERABL ES [facility] [place] [address] documented in this encounter Visit Diagnoses Diagnosis Non-small cell lung cancer, right documented in this encounter Care Teams Associate Professor Of History Relationship Specialty Start Date End Date Kathy Wright APRN PCP - General Family Medicine 04/22/19 documented as of this encounter
--- OUTSIDE RECORDS SUMMARY | 2024-07-28 02:08 | XMS_ITS | Encounter Summary ---
Author Organization [facility] [place] [address] Care Team Providers Care Drying Room Supervisor Name Role Phone GerardoKathy nicolas Butch DANIEL Primary Care Provider [phone] Reason for Referral * Diagnostic Test (Routine) - Closed Specialty Diagnoses / Procedures Referred By Janie t Referred To Contact Radiology Diagnoses Non-small cell lung cancer, right Procedures CT Chest wo Contrast (Generic) Adrienne Mendez APRN [facility] [place] [address] [facility] [place] [address] Referral ID Status Reason Start Date Expiration Date V isits Requested Visits Authorized [id number] Closed Specialty Service Requested 03/13/2022 09/12/2023 1 1 Reason for Visit * Diagnostic Test (Routine) - Closed Specialty Diagnoses / Procedures Referred By Janie cassidy Referred To Contact Radiology Diagnoses Non-small cell lung cancer, right Procedures CT Chest wo Contrast (Generic) Adrienne Mendez APRN [facility] [place]ATOLOG[place] [address] [facility] [place] [address] Referral ID Status Reason Start Date Expiration Date V isits Requested Visits Authorized [id number] Closed Specialty Service Requested 03/13/2022 09/12/2023 1 1 Encounter Details Date Type Department Care Team (Latest Contact Info) Description 12/10/2022 11:52 AM EST - 12/10/2022 11:59 PM EST Hospital En[place] [address] Adrienne Mendez, MARÍA [facility] HEMATOLOGY[place] [address] Non-small cell lung cancer, right Discharge Disposition: [...] propion-salmeteroL (Advair HFA) 230-21 mcg/actuation HFA Aerosol InhalerIndications:Psychiatric Social Worker Supervisor doc obstructive pulmonary disease, unspecified COPD type [...] who have questions please contact the health home care specialist that requested your imaging first. ? Electronically signed by: Katy Montes MD, [facility] ([phone]), at 12/10/2022 2:04 PM Narrative 12/10/2022 2:04 [...] patients who have questions please contactthe health home care specialist that requested your imaging first. Electronically signed by: Katy Montes MD, [facility]([phone]), at 12/10/2022 2:04 PM Adrienne Mendez SPACE SCHEDULER IMG CT ORDERABLES documented in this encounter Visit Diagnoses Diagnosis Non-small cell lung cancer, right documented in this encounter Care Teams Drying Room Supervisor Relationship Specialty Start Date End Date Kathy Wright APRN PCP - General Family Medicine 04/22/19 documented as of this encounter
--- OUTSIDE RECORDS SUMMARY | 2024-07-28 02:08 | XMS_ITS | Encounter Summary ---
[place] [address] Care Team Providers Care Veterinarian Assistant Name Role Phone Kathy Wright APRN Primary Care Provider [phone] Encounter Details Date Type Department Care Team (Late st Contact Info) Description 07/16/2022 Telephone Neph[place] [address] Misti Lopes Social History Tobacco Use Types [...] on filedocumented in this encounter Care Teams Veterinarian Assistant Relationship Specialty Start Date End Date Kathy Wright, MARÍA PCP - General Family Medicine 04/22/19 documented as of this encounter
--- OUTSIDE RECORDS SUMMARY | 2024-07-28 02:08 | XMS_ITS | Encounter Summary ---
Author Organization [facility] [place] [address] Care Team Providers Care Under Ground Miner Name Role Phone Kathy Wright APRN Primary Care Provider [phone] Encounter Details Date Type Department Care Team (Late st Contact Info) Description 09/12/2022 Telephone [place] [address] Christina Almonte Social History Tobacco Use Types [...] on filedocumented in this encounter Care Teams Under Ground Miner Relationship Specialty Start Date End Date Kathy Wright APRN PCP - General Family Medicine 04/22/19 documented as of this encounter
--- OUTSIDE RECORDS SUMMARY | 2024-07-28 02:08 | XMS_ITS | Encounter Summary ---
Author Organization [facility] [place] [address] Care Team Providers Care Account Resolution Specialist Name Role Phone AdrianaKathy Butch DANIEL Primary Care Provider [phone] Encounter Details Date Type Department Care Team (Late st Contact Info) Description 05/01/2020 Telephone Hematology [place] [address] Radha Bynum RN Social History Tobacco Use [...] 05/01/2020 8:25 AM EDT Per the clinical bottom precipitator operator: She will get labs, ct locally 05/01 rtc or tov 05/02. Discussed above with Adrienne Mendez APRN who states: Looks like she was supposed to get labs locally at [facility] on 05/02. We have been following her kidney function so a BMP is fine. F/U isn't until Aug(4 mo from her last visit, which was March). rating specialist to follow-up on BMP results tomorrow on 05/02 and will call patient with results. documented in this encounter Plan of Treatment Not on file documented as of this encounter Visit Diagnoses Not on filedocumented in this encounter Care Teams Account Resolution Specialist Relationship Specialty Start Date End Date Kathy Wright APRN PCP - General Family Medicine 04/22/19 documented as of this encounter
--- OUTSIDE RECORDS SUMMARY | 2024-07-28 02:08 | XMS_ITS | Encounter Summary ---
Author Organization [facility] [place] [address] Care Team Providers Care Engagement Lead Name Role Phone GerardoKathy nicolas Butch DANIEL Primary Care Provider [phone] Reason for Referral * Diagnostic Test (Routine) - Closed Specialty Diagnoses / Procedures Referred By Janie cassidy Referred To Contact Radiology Diagnoses Non-small cell lung cancer, right Procedures CT Chest w Contrast Adrienne Mendez APRN [facility] HEMATOLOGY[place] [address] [facility] [place] [address] Referral ID Status Reason Start Date Expiration Date V isits Requested Visits Authorized [id number] Closed Specialty Service Requested 05/29/2021 11/28/2022 1 1 Reason for Visit * Diagnostic Test (Routine) - Closed Specialty Diagnoses / Procedures Referred By Janie cassidy Referred To Contact Radiology Diagnoses Non-small cell lung cancer, right Procedures CT Chest w Contrast Adrienne Mendez APRN [facility] HEMATOLOGY[place] [address] [facility] [place] [address] Referral ID Status Reason Start Date Expiration Date V isits Requested Visits Authorized [id number] Closed Specialty Service Requested 05/29/2021 11/28/2022 1 1 Encounter Details Date Type Department Care Team (Latest Contact Info) Description 07/24/2021 1:32 PM EDT - 07/24/2021 11:59 PM EDT Hospital Encounter [place] [address] Adrienne Mendez APRN [facility] HEMATOLOGY-[place] [address] Non-small cell lung cancer, right Discharge Disposition: [...] propion-salmeteroL (Advair HFA) 230-21 mcg/actuation HFA Aerosol InhalerIndications:Customer Support Engineer doc obstructive pulmonary disease, unspecified COPD type [...] who have questions please contact the health pediatric acute care unit nurse that requested your imaging first. ? Electronically signed by: Roderick Valadez MD, [facility] ([phone]), at 07/24/2021 4:26 PM Narrative 07/24/2021 4:26 [...] patients who have questions please contactthe health pediatric acute care unit nurse that requested your imaging first. Electronically signed by: Roderick Valadez MD, [facility]([phone]), at 07/24/2021 4:26 PM Adrienne Mendez PURSE FRAMER IMG CT ORDERABLES documented in this encounter [...] mLs documented in this encounter Care Teams Engagement Lead Relationship Specialty Start Date End Date Kathy Wright APRN PCP - General Family Medicine 04/22/19 documented as of this encounter
--- OUTSIDE RECORDS SUMMARY | 2024-07-28 02:08 | XMS_ITS | Encounter Summary ---
[place] [address] Care Team Providers Care Quenching Machine Operator Name Role Phone Kathy Wright MARÍA Primary Care Provider [phone] Encounter Details Date Type Department Care Team (Late st Contact Info) Description 05/05/2020 Telephone Hematology [place] [address] Radha Bynum RN Social History Tobacco Use [...] today to discuss lab draw while in [place]. No call back by end of clinic day. debt counselor to attempt again on 05/05 when back in office. Call placed to Marleni again to discuss lab need while in [place]. Voice message left with no call back. Call placed to Marleni's PCP office at [phone] and spoke to Debbi. Reviewed we have been trying to reach Marleni with no luck and we unfortunately do not have another number listed for her OR her emergency contact Blaze Best. She states Fe Dailey phone number is [phone]. Call placed to Blaze Best (son) at above number to discuss lab need. Multiple attempts were made. Not able to leave a message. Dr. West updated on the inability to reach Marleni to request labs while in [place]. documented in this encounter Plan of Treatment Not on file documented as of this encounter Visit Diagnoses Not on filedocumented in this encounter Care Teams Quenching Machine Operator Relationship Specialty Start Date End Date Kathy Wright APRN PCP - General Family Medicine 04/22/19 documented as of this encounter
--- OUTSIDE RECORDS SUMMARY | 2024-07-28 02:08 | XMS_ITS | Encounter Summary ---
[place] [address] Care Team Providers Care Food Service Driver Name Role Phone Kathy Wright Butch DANIEL Primary Care Provider [phone] Encounter Details Date Type Department Care Team (Late st Contact Info) Description 05/04/2020 Telephone [place]ematology [place] [address] Jane Calles RN Social History Tobacco Use [...] AM EDT RESEARCH NURSE TELEPHONE NOTE ?? [id number],Adjuvant Lung Cancer Enrichment Marker Identification and Sequencing [...] PM EDT RESEARCH NURSE TELEPHONE NOTE ?? [id number],Adjuvant Lung Cancer Enrichment Marker Identification and Sequencing [...] for future use for research at the [facility], and explained she would not [...] on filedocumented in this encounter Care Teams Food Service Driver Relationship Specialty Start Date End Date Kathy Wright APRN PCP - General Family Medicine 04/22/19 documented as of this encounter
--- OUTSIDE RECORDS SUMMARY | 2024-07-28 02:08 | XMS_ITS | Encounter Summary ---
[place] [address] Care Team Providers Care Sed Middle School Teacher Name Role Phone Kathy Wright SKETCH LINER Primary Care Provider [phone] Encounter Details Date Type Department Care Team (Late st Contact Info) Description 05/26/2020 Telephone Hematology [place] [address] Radha Bynum RN Social History Tobacco Use [...] 05/26/2020 3:47 PM EDT Message received from corporation secretary: Please call with lab results from 05/19 Call placed to Marleni to discuss. Left a message with lab results per the patients request. Encouraged her to call back should she have further questions or concerns. documented in this encounter Plan of Treatment Not on file documented as of this encounter Visit Diagnoses Not on filedocumented in this encounter Care Teams Sed Middle School Teacher Relationship Specialty Start Date End Date Kathy Wright APRN PCP - General Family Medicine 04/22/19 documented as of this encounter
--- OUTSIDE RECORDS SUMMARY | 2024-07-28 02:08 | XMS_ITS | Encounter Summary ---
Author Organization [place] [address] Care Team Providers Care Cook House Supervisor Name Role Phone GerardoKathy nicolas Butch DANIEL Primary Care Provider [phone] Reason for Referral * Diagnostic Test (Routine) - Closed Specialty Diagnoses / Procedures Referred By Janie cassidy Referred To Contact Radiology Diagnoses Non-small cell lung cancer, right Procedures CT Chest w Contrast Adrienne Mendez APRN [facility] HEMATOLOGY-[place] [address] [facility] [place] [address] Referral ID Status Reason Start Date Expiration Date V isits Requested Visits Authorized [id number] Closed Specialty Service Requested 05/29/2021 11/28/2022 1 1 Encounter Details Date Type Department Care Team (Late st Contact Info) Description 05/29/2021 Orders Only Hematology [place] [address] Adrienne Mendez APRN [facility] [place]EMATOLOGY[place] [address] Non-small cell lung cancer, right [...] who have questions please contact the health rn palliative care that requested your imaging first. ? Electronically signed by: Roderick Valadez MD, [facility] ([phone]), at 07/24/2021 4:26 PM Narrative 07/24/2021 4:26 [...] patients who have questions please contactthe health rn palliative care that requested your imaging first. Electronically signed by: Roderick Valadez MD, [facility]([phone]), at 07/24/2021 4:26 PM Adrienne Mendez PHOTOVOLTAIC POWER SYSTEMS ENGINEER IMG CT ORDERABLES * (ABNORMAL) Lactate Dehydrogenase (07/24/2021 1:22 PM EDT) Lactate Dehydrogenase 270(H) 110 - 220 unit/L [facility] Blood 07/24/2021 1:22 PM EDT 07/24/2021 1:33 PM EDT Narrative Resulting Agency Comment Spec In Lab Adrienne Mendez PHOTOVOLTAIC POWER SYSTEMS ENGINEER CHEMISTRY ORDERABL ES [facility] [place] [address] * (ABNORMAL) Comprehensive metabolic panel (non-fasting) (07/24/2021 1:22 PM EDT) Glucose 88 65 - 199 mg/dL [facility] Comment:Diabetes: >=200 mg/d L plus symptoms Blood Urea Nitrogen 16 8 - 18 mg/dL [facility] Creatinine 1.31(H) 0.70 - 1.20 mg/dL [facility] Sodium 140 135 - 145 mmol/L [facility] Potassium 5.0 3.5 - 5.0 mmol/L [facility] Comment: Please note: ??Patients with WBC >100,000 may have falsely elevated Potassium levels. ??For accurate Potassium quantification in these patients send serum separator tube (gold top) for subsequent determinations. ??Contact the Clinical Chemistry Laboratory if there are any questions. Chloride 103 98 - 107 mmol/L [facility] Carbon Dioxide 26 22 - 31 mmol/L [facility] Anion Gap 11 5 - 15 mmol/L [facility] Calcium 9.6 8.5 - 10.5 mg/dL [facility] Protein, Total 7.3 6.1 - 8.0 gm/dL [facility] Albumin 4.5 3.2 - 5.2 gm/dL [facility] Aspartate Aminotransferase 66(H) 0 - 30 unit/L [facility] Alanine Aminotransferase 88(H) 0 - 30 unit/L [facility] Alkaline Phosphatase 119(H) 35 - 105 unit/L [facility] Bilirubin, Total 0.2 0.2 - 1.3 mg/dL [facility] Est Glomerular Filtration Rate 44(L) >=60 mL/min/1. 73 m?? [facility] Comment: This patient? s [...] Agency Comment Spec In Lab Adrienne Mendez PHOTOVOLTAIC POWER SYSTEMS ENGINEER CHEMISTRY ORDERABL ES [facility] [place] [address] documented in this encounter Visit Diagnoses Diagnosis Non-small cell lung cancer, right Non-small cell lung cancer, right documented in this encounter Care Teams Cook House Supervisor Relationship Specialty Start Date End Date Kathy Wright APRN PCP - General Family Medicine 04/22/19 documented as of this encounter
--- OUTSIDE RECORDS SUMMARY | 2024-07-28 02:08 | XMS_ITS | Encounter Summary ---
Author Organization [place] [address] Care Team Providers Care Special Education Educational Assistant Name Role Phone Kathy Wright APRN Primary Care Provider [phone] Encounter Details Date Type Department Care Team (Late st Contact Info) Description 01/21/2023 2:30 PM EST Office Visit [place] [address] Lico Wing MD [facility] [address] [place] [address] Chronic kidney disease, unspecified CKD stage; Urinary [...] be sent through Care Everywhere. * Hypercalcemia (Guinean) * Blood Pressure Test: Home (Guinean) documented in this encounter Progress Notes * Lico Wing MD - 01/21/2023 2:30 PM EST Images from the original note were not included. [facility] DEPARTMENT OF NEPHROLOGY AND HYPERTENSION OUTPATIENT [...] performed by Juan Ny MD at [facility] MAIN OR ? ? PRO INJECTION ANES AGENT &/ STEROID INTERCOSTAL NERVE EA ADDL LEVEL Right 10/06/2019 NERVE BLOCK, INTERCOSTAL NERVE, MULTIPLE (WRVU 1.68) performed by Juan Ny MD at [facility] MAIN OR ??? PRO THORACOSCOPY SURG LOBECTOMY Right 10/06/2019 @ROBOT XI THORACOSCOPY,SURGICAL,W\LOBECTOMY,TOTAL OR SEGMENTAL (WRVU 24.64) performed by Juan Ny MD at [facility] OR ??? PRO THORACOSCOPY WITH MEDIASTINAL AND REGIONAL LYMPHADENECTOMY Right 10/06/2019 @ROBOT XI THORACOSCOPY,SURG; W/MEDIASTINAL& REGIONAL LYMPHADENECTOMY (WRVU 4.12) performed by Juan Ny MD at [facility] OR ??? PRO THORACOSCOPY WITH WEDGE RESECTION AND ANATOMIC LUNG RESECTN Right 10/06/2019 @ROBOT XI THORACOSCOPY,SURG; W/DX WEDGE RESC W/ANATOMIC LUNG RESC (WRVU 3) performed by Juan Ny MD at [facility] OR FMHX: Family History Problem Relation Age of Onset ??? Lung Cancer Father smoker SOCIALHX: Social History Socioeconomic History ??? Marital status: Spouse name: Not on file ??? Number of children: Not on file ??? Years of education: Not on file ??? Highest education level: Not on file Occupational History ??? Occupation: disability Comment: on disability since 2013 ??? 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 PGY-IV Nephrology-Hypertension Fellow Page # [phone] [facility] [address] [facility] [address] 2nd floor, Machine Operations Supervisor [address] [place] [address] * Samuel Little MD - 01/21/2023 2:30 [...] U Albumin/Cre Ratio (01/21/2023 2:30 PM EST) Albumin / Creatinin Ratio, Urine Not Calculated 0 - 29 mcg/mg Cr [facility] Comment: Reference Ranges: <30 mcg/mg: [...] Supplements (2012) 2, 357? 362 Albumin, Urine <3.0 mg/L [facility] Creatinine, Urine 47 mg/dL [facility] Urine 01/21/2023 2:30 PM EST 01/21/2023 4:54 PM EST Narrative Resulting Agency Comment Spec In Lab Samuel Little MD URINE ORDERABLES [facility] [place] [address] * Protein/Creatinine Ratio, urine (01/21/2023 2:30 PM EST) Creatinine, Urine 47 mg/dL [facility] Protein, Urine <6 0 - 12 mg/dL [facility] Protein / Creatinine Ratio, Urine <0.1 ratio [facility] Urine 01/21/2023 2:30 PM EST 01/21/2023 4:54 PM EST Narrative Resulting Agency Comment Spec In Lab Samuel Little MD URINE ORDERABLES Performing Organization Address [facility] Co de Phone Number [facility] [place] [address] * PTH (01/21/2023 1:29 PM EST) Parathyroid Hormone 63 15 - 65 pg/mL [facility] Blood 01/21/2023 1:29 PM EST 01/21/2023 1:53 PM EST Narrative Resulting Agency Comment Spec In Lab Samuel Little MD CHEMISTRY ORDERABLES Performing Organization Address [facility] Co de Phone Number [facility] [place] [address] * Phosphorus (01/21/2023 1:29 PM EST) Phosphorus 4.1 2.5 - 4.5 mg/dL [facility] Blood 01/21/2023 1:29 PM EST 01/21/2023 1:53 PM EST Narrative Resulting Agency Comment Spec In Lab Samuel Little MD CHEMISTRY ORDERABLES Performing Organization Address [facility] de Phone Number [facility] [place] [address] * Magnesium (01/21/2023 1:29 PM EST) Magnesium 0.87 0.69 - 1.07 mmol/L [facility] Blood 01/21/2023 1:29 PM EST 01/21/2023 1:53 PM EST Narrative Resulting Agency Comment Spec In Lab Samuel Little MD CHEMISTRY ORDERABLES Performing Organization Address [facility] Co de Phone Number [facility] [place] [address] * (ABNORMAL) Comprehensive metabolic panel (non-fasting) (01/21/2023 1:29 PM EST) Glucose 102 65 - 199 mg/dL [facility] Comment:Diabetes: >=200 mg/d L plus symptoms Blood Urea Nitrogen 18 8 - 18 mg/dL [facility] Creatinine 1.38(H) 0.70 - 1.20 mg/dL [facility] Sodium 139 135 - 145 mmol/L [facility] Potassium 4.7 3.5 - 5.0 mmol/L [facility] Comment: Please note: ??Patients with WBC >100,000 may have falsely elevated Potassium levels. ??For accurate Potassium quantification in these patients send serum separator tube (gold top) for subsequent determinations. ??Contact the Clinical Chemistry Laboratory if there are any questions. Chloride 101 98 - 107 mmol/L [facility] Carbon Dioxide 28 22 - 31 mmol/L [facility] Anion Gap 10 5 - 15 mmol/L [facility] Calcium 10.7(H) 8.5 - 10.5 mg/dL [facility] Protein, Total 7.4 6.1 - 8.0 g/dL [facility] Albumin 4.4 3.2 - 5.2 g/dL [facility] Aspartate Aminotransferase 22 0 - 30 unit/L [facility] Alanine Aminotransferase 27 0 - 30 unit/L [facility] Alkaline Phosphatase 136(H) 35 - 105 unit/L [facility] Bilirubin, Total 0.3 0.2 - 1.3 mg/dL [facility] Est Glomerular Filtration Rate 43(L) >=60 mL/min/1. 73 m?? [facility] Comment: This patient's estimated GFR [...] In Lab Samuel Little MD [place] [address] documented in this encounter Visit Diagnoses Diagnosis Chronic kidney disease, unspecified CKD stage Urinary obstruction Urinary obstruction, unspecified Non-small cell lung cancer, right Tobacco abuse Tobacco use disorder Hypercalcemia Hypertension, unspecified type documented in this encounter Care Teams Special Education Educational Assistant Relationship Specialty Start Date End Date Kathy Wright, MARÍA PCP - General Family Medicine 04/22/19 documented as of this encounter
--- OUTSIDE RECORDS SUMMARY | 2024-07-28 02:08 | XMS_ITS | Encounter Summary ---
[place] [address] Care Team Providers Care Shirt Creaser Name Role Phone Kathy rWight MARÍA Primary Care Provider [phone] Encounter Details Date Type Department Care Team (Late st Contact Info) Description 04/14/2020 [place] [address] Marry Wellington LNA Social History Tobacco Use [...] on filedocumented in this encounter Care Teams Shirt Creaser Relationship Specialty Start Date End Date Kathy Wright APRN PCP - General Family Medicine 04/22/19 documented as of this encounter
--- OUTSIDE RECORDS SUMMARY | 2024-07-28 02:08 | XMS_ITS | Encounter Summary ---
Author Organization [facility] [place] [address] Care Team Providers Care Wallcovering Hanger Name Role Phone Kathy Wright MARÍA Primary Care Provider [phone] Encounter Details Date Type Department Care Team (Late st Contact Info) Description 05/19/2020 Telephone Hematology [place] [address] Scarlett Castillo, RN Social History Tobacco Use [...] RN - 05/19/2020 2:04 PM EDT Follow-up: subscription crew leader to follow-up on lab results on 05/19 from [facility] in [facility]. Lab results received, entered into EDH & sent to Dr. West to review. documented in this encounter Plan of Treatment Not on file documented as of this encounter Procedures Procedure Name Priority Date/Time Associated Diagnosis Comments CBC (WITH DIFF) Routine 05/19/2020 12:19 PM EDT COMPREHENSIVE METABOLIC PANEL Routine 05/19/2020 12:19 PM EDT documented in this encounter Results * (ABNORMAL) Comprehensive metabolic panel (non-fasting) (05/19/2020 12:19 PM EDT) Glucose 106(Exter nal Lab) 74 - 106 Blood Urea Nitrogen 16(Family Services Specialist al Lab) 9 - 20 Creatinine 1.20(EXTE RNAL/ABN) 0.50 - 1.00 Sodium 139(EXTER NAL/ABN) 137 - 145 Potassium 4.0(Exter nal Lab) 3.5 - 5.1 Chloride 104(Exter nal Lab) 96 - 110 Carbon Dioxide 25(Family Services Specialist al Lab) 21 - 34 Calcium 9.5(Exter nal Lab) 8.4 - 10.2 Protein, Total 8.6(EXTER NAL/ABN) 6.3 - 8.2 Albumin 4.4(Exter nal Lab) 3.5 - 5 Bilirubin, Total 0.6(Exter nal Lab) 0.2 - 1.3 Alkaline Phosphatase 106(Exter nal Lab) 38 - 126 Aspartate Aminotransferase 46(Family Services Specialist al Lab) 15 - 46 Alanine Aminotransferase 43(Family Services Specialist al Lab) 0 - 34 Blood specimen (specimen) 05/19/2020 12:19 PM EDT Historical Provider CHEMISTRY ORDERAB LES * (ABNORMAL) CBC (with Diff) (05/19/2020 12:19 PM EDT) White Blood Cell 5.8(Family Services Specialist al Lab) 4.8 - 11.8 Hemoglobin 11.4(EXTER NAL/ABN) 12.0 - 16.0 Hematocrit 34.3(EXTER NAL/ABN) 37.0 - 47.0 Platelet 210(Family Services Specialist al Lab) 130 - 400 ANC 2.8(Family Services Specialist al Lab) 1.4 - 6.5 Blood specimen (specimen) 05/19/2020 12:19 PM EDT Historical Provider HEMATOLOGY ORDERA BLES documented in this encounter Visit Diagnoses Not on filedocumented in this encounter Care Teams Wallcovering Hanger Relationship Specialty Start Date End Date Kathy Wright, MARÍA PCP - General Family Medicine 04/22/19 documented as of this encounter
--- OUTSIDE RECORDS SUMMARY | 2024-07-28 02:08 | XMS_ITS | Encounter Summary ---
Author Organization [facility] Address [facility] [place] [address] Care Team Providers Care Ultrasound Tech Name Role Phone GerardoKathy nicolas Butch DANIEL Primary Care Provider [phone] Encounter Details Date Type Department Care Team (Latest Contact Info) Description 12/10/2022 11:15 AM EST - 12/10/2022 11:51 AM EST Hospital Encounter [place]ematology [place] [address] Non-small cell lung cancer, right Discharge Disposition: [...] propion-salmeteroL (Advair HFA) 230-21 mcg/actuation HFA Aerosol InhalerIndications:Magnesium Mill Operator doc obstructive pulmonary disease, unspecified COPD type [...] lung cancer, right COMPREHENSIVE METABOLIC PANEL STAT 12/10/2022 11:23 AM EST Non-small cell lung cancer, right documented in this encounter Results * (ABNORMAL) Differential, Automated (12/10/2022 11:23 AM EST) Neutrophil % 58.5 % [facility] Neutrophil Absolute 6.54(H) 1.70 - 6.10 x10(3)/mc L [facility] Lymph % 29.1 % [facility] Lymphocytes Abs 3.2 0.9 - 3.2 x10(3)/mc L [facility] Monocyte % 5.5 % [facility] Monocyte Abs 0.6 0.3 - 0.9 x10(3)/mc L [facility] Eos % 4.7 % [facility] Eosinophils Abs 0.5(H) 0.0 - 0.4 x10(3)/mc L [facility] Basophil % 1.0 % [facility] Baso Absolute 0.1 0.0 - 0.1 x10(3)/mc L [facility] Immature Gran % 1.20 % [facility] Comment: Immature granulocytes(IG's)percentage and absolute count will include metamyelocytes, myelocytes, and promyelocytes. Blood smears from CBCs yielding IG's will be scanned manually for concordance. If this scan disagrees with the automated IG or if promyelocytes are noted, a manual differential will be performed. Immature Gran Absolute 0.13(H) 0.00 - 0.04 x10(3)/mc L [facility] Blood 12/10/2022 11:2 3 AM EST 12/10/2022 11:31 AM EST Narrative Resulting Agency Comment Spec In Lab Adrienne C Storms LUNCH TRUCK DRIVER HEMATOLOGY ORDERAB LES [facility] [place] [address] * (ABNORMAL) Hemogram (12/10/2022 11:23 AM EST) White Blood Cell 11.2(H) 4.0 - 9.5 x10(3)/mc L [facility] Red Blood Cell 4.69 4.00 - 5.21 x10(6)/mc L [facility] Hemoglobin 14.3 11.7 - 15.5 g/dL [facility] Hematocrit 42.4 35.7 - 45.8 % [facility] Mean Cell Volume 90.4 82.6 - 94.4 fL [facility] Mean Cell Hemoglobin 30.5 27.1 - 32.0 pg [facility] Mean Cell Hemoglobin Concentration 33.7 31.7 - 35.0 g/dL [facility] Platelet 257 145 - 357 x10(3)/mc L [facility] RDW Standard Deviation 44.1 37.0 - 46.0 fL [facility] RDW coefficient of variation 13.4 11.5 - 14.1 % [facility] Mean Platelet Volume 9.6 7.6 - 12.9 fL [facility] NRBC% auto 0.0 % [facility] NRBC Absolute 0.000 0.000 - 0.000 x10(3)/mc L [facility] Blood 12/10/2022 11:2 3 AM EST 12/10/2022 11:31 AM EST Narrative Resulting Agency Comment Spec In Lab Adrienne Mendez LUNCH TRUCK DRIVER HEMATOLOGY ORDERAB LES [facility] [place] [address] * (ABNORMAL) Comprehensive metabolic panel (non-fasting) (12/10/2022 11:23 AM EST) Glucose 125 65 - 199 mg/dL [facility] Comment:Diabetes: >=200 mg/d L plus symptoms Blood Urea Nitrogen 17 8 - 18 mg/dL [facility] Creatinine 1.29(H) 0.70 - 1.20 mg/dL [facility] Sodium 138 135 - 145 mmol/L [facility] Potassium 4.4 3.5 - 5.0 mmol/L [facility] Comment: Please note: ??Patients with WBC >100,000 may have falsely elevated Potassium levels. ??For accurate Potassium quantification in these patients send serum separator tube (gold top) for subsequent determinations. ??Contact the Clinical Chemistry Laboratory if there are any questions. Chloride 102 98 - 107 mmol/L [facility] Carbon Dioxide 25 22 - 31 mmol/L [facility] Anion Gap 11 5 - 15 mmol/L [facility] Calcium 10.3 8.5 - 10.5 mg/dL [facility] Protein, Total 7.9 6.1 - 8.0 g/dL [facility] Albumin 4.4 3.2 - 5.2 g/dL [facility] Aspartate Aminotransferase 31(H) 0 - 30 unit/L [facility] Alanine Aminotransferase 35(H) 0 - 30 unit/L [facility] Alkaline Phosphatase 129(H) 35 - 105 unit/L [facility] Bilirubin, Total 0.3 0.2 - 1.3 mg/dL [facility] Est Glomerular Filtration Rate 47(L) >=60 mL/min/1. 73 m?? [facility] Comment: This patient's estimated GFR [...] Agency Comment Spec In Lab Adrienne Mendez LUNCH TRUCK DRIVER CHEMISTRY ORDERABL ES [facility] [place] [address] * Lactate Dehydrogenase (12/10/2022 11:23 AM EST) Lactate Dehydrogenase 211 110 - 220 unit/L [facility] Blood 12/10/2022 11:2 3 AM EST 12/10/2022 11:31 AM EST Narrative Resulting Agency Comment Spec In Lab Adrienne Ruiz Andrea LUNCH TRUCK DRIVER CHEMISTRY ORDERABL ES [facility] [place] [address] documented in this encounter Visit Diagnoses Diagnosis Non-small cell lung cancer, right documented in this encounter Care Teams Ultrasound Tech Relationship Specialty Start Date End Date Kathy Wright APRN PCP - General Family Medicine 04/22/19 documented as of this encounter
--- OUTSIDE RECORDS SUMMARY | 2024-07-28 02:08 | XMS_ITS | Encounter Summary ---
[place] [address] Care Team Providers Care Human Factors Advisor Lead Name Role Phone Kathy Wright APRN Primary Care Provider [phone] Encounter Details Date Type Department Care Team (Late st Contact Info) Description 07/19/2020 [place] [address] Rox Hugo Social History Tobacco Use Types [...] on filedocumented in this encounter Care Teams Human Factors Advisor Lead Relationship Specialty Start Date End Date Kathy Wright APRN PCP - General Family Medicine 04/22/19 documented as of this encounter
--- OUTSIDE RECORDS SUMMARY | 2024-07-28 02:08 | XMS_ITS | Encounter Summary ---
Author Organization [facility] [place] [address] Care Team Providers Care Transmitter Tester Name Role Phone Kathy Wright MARÍA Primary Care Provider [phone] Encounter Details Date Type Department Care Team (Late st Contact Info) Description 05/03/2020 Telephone [place] [address] Marry Wellington LNA Social History Tobacco Use [...] Telephone Encounter - Marry Wellington LNA - 05/03/2020 3:57 PM EDT [...] on filedocumented in this encounter Care Teams Transmitter Tester Relationship Specialty Start Date End Date Kathy Wright APRN PCP - General Family Medicine 04/22/19 documented as of this encounter
--- OUTSIDE RECORDS SUMMARY | 2024-07-28 02:08 | XMS_ITS | Encounter Summary ---
[place] [address] Care Team Providers Care Dry Cell And Battery Assembler Name Role Phone GerardoKathy nicolas Butch DANIEL Primary Care Provider [phone] Encounter Details Date Type Department Care Team (Late st Contact Info) Description 04/19/2020 Telephone [place] [address] Marry Wellington LNA Social History Tobacco Use [...] PCP was at the house and got [employer] phone, pt does not have appropriate technology for a telehealth appt. Phone visit was scheduled. Pt was scheduled for in clinic visit on 06/05, pt will be in [place], rescheduled to 07/24. Letter sent. documented in this encounter Plan of Treatment Not on file documented as of this encounter Visit Diagnoses Not on filedocumented in this encounter Care Teams Dry Cell And Battery Assembler Relationship Specialty Start Date End Date Kathy Wright APRN PCP - General Family Medicine 04/22/19 documented as of this encounter
--- OUTSIDE RECORDS SUMMARY | 2024-07-28 02:09 | XMS_ITS | Encounter Summary ---
Author Organization [facility] [place] [address] Care Team Providers Care Manager Client Name Role Phone GerardoKathy nicolas Butch DANIEL Primary Care Provider [phone] Encounter Details Date Type Department Care Team (Late st Contact Info) Description 12/20/2019 Telephone Hematology [place] [address] Scarlett Castillo, RN Social History Tobacco Use [...] Follow-up: Recheck BMP on Friday AM at [facility]. Labs received, entered into ED-H & reviewed with KAYAK MAKER. Per Adrienne Mendez APRN: We'll see her [...] Date/Time Associated Diagnosis Comments BASIC METABOLIC PANEL Routine 12/20/2019 documented in this encounter Results * (ABNORMAL) Basic Metabolic Panel (non-fasting) (12/20/2019) Glucose 131(BIOLOGY SPECIMEN TECHNICIAN AL/ABN) 74 - 106 Blood Urea Nitrogen 23(EXTERNA L/ABN) 7 - 18 Creatinine 1.79(EXTER NAL/ABN) 0.55 - 1.02 Sodium 139(Equine Breeder al Lab) 136 - 145 Potassium 4.8(Equine Breeder al Lab) 3.5 - 5.1 Chloride 103(Equine Breeder al Lab) 98 - 107 Carbon Dioxide 25(Externa l Lab) 21 - 32 Calcium 9.3(Equine Breeder al Lab) 8.5 - 10.1 Blood specimen (specimen) 12/20/2019 Historical Provider CHEMISTRY ORDERAB LES documented in this encounter Visit Diagnoses Not on filedocumented in this encounter Care Teams Manager Client Relationship Specialty Start Date End Date Kathy Wright APRN PCP - General Family Medicine 04/22/19 documented as of this encounter
--- OUTSIDE RECORDS SUMMARY | 2024-07-28 02:09 | XMS_ITS | Encounter Summary ---
Author Organization [facility] [place] [address] Care Team Providers Care Wireless Cellular Technician Name Role Phone GerardoKathy nicolas Butch DANIEL Primary Care Provider [phone] Reason for Visit * Reason Comments Chemotherapy * Treatment/Therapy Plan Authorization (Routine) - Closed Specialty Diagnoses / Procedures Referred By Janie cassidy Referred To Contact Hematology and Oncology Diagnoses Non-small cell lung cancer, right Procedures TC PALONOSETRON HCL, 25MCG, INJECTION (ALOXI) TC APREPITANT, 1 MG, INJECTION TC PEMETREXED, 10MG, INJECTION (ALIMTA) TC CARBOPLATIN, 50MG, INJECTION (PARAPLATIN) Toño West MD [facility] [place] [address] [facility] [address] [place] [address] Referral ID Status Reason Start Date Expiration Date Visits Re quested Visits Authorized [id number] Closed 12/28/2019 12/27/2020 12 12 Encounter Details Date Type Department Care Team (Latest Contact Info) Description 01/04/2020 8:29 AM EST - 01/04/2020 11:59 PM EST Hospital Encounter [place]ematology [place] [address] Non-small cell lung cancer, right [...] * Lactate Dehydrogenase (01/04/2020 8:38 AM EST) Lactate Dehydrogenase Not Perf 110 - 220 [facility] Comment:Unable to quantitate due to sample hemolysis. Sample redraw suggested. Blood specimen (specimen) 01/04/2020 8:38 AM EST 01/04/2020 8:47 AM EST Narrative Resulting Agency Comment Spec In Lab Toño West MD CHEMISTRY ORDERA BLES [facility] [place] [address] * (ABNORMAL) Comprehensive metabolic panel (non-fasting) (01/04/2020 8:38 AM EST) Glucose 98 65 - 199 mg/dL [facility] Comment:Diabetes: >=200 mg/d L plus symptoms Blood Urea Nitrogen 24(H) 8 - 18 mg/dL [facility] Creatinine 1.18 0.70 - 1.20 mg/dL [facility] Sodium 138 135 - 145 mmol/L [facility] Potassium 4.0 3.5 - 5.0 mmol/L [facility] Comment: Please note: ??Patients with WBC >100,000 may have falsely elevated Potassium levels. ??For accurate Potassium quantification in these patients send serum separator tube (gold top) for subsequent determinations. ??Contact the Clinical Chemistry Laboratory if there are any questions. Chloride 102 98 - 107 mmol/L [facility] Carbon Dioxide 21(L) 22 - 31 mmol/L [facility] Anion Gap 15 5 - 15 mmol/L [facility] Calcium 9.4 8.5 - 10.5 mg/dL [facility] Protein, Total 7.1 6.1 - 8.0 gm/dL [facility] Albumin 4.0 3.2 - 5.2 gm/dL [facility] Aspartate Aminotransferase 23 0 - 30 unit/L [facility] Alanine Aminotransferase 19 0 - 30 unit/L [facility] Alkaline Phosphatase 126(H) 35 - 105 unit/L [facility] Bilirubin, Total 0.2 0.2 - 1.3 mg/dL [facility] Est Glomerular Filtration Rate 50(L) >=60 mL/min/1. 73 m?? [facility] Comment: The eGFR was calculated using the CKD-EPI equation. As with all creatinine based estimates of kidney function, eGFR values calculated with the CKD-EPI equation are not accurate in patients with acute kidney failure, extremes of body mass or the acutely ill. http://[employer]Bu[employer]/[facility] eGFR 58(L) >=60 mL/min/1. 73 m?? [facility] Comment: The eGFR was calculated using the CKD-EPI equation. As with all creatinine based estimates of kidney function, eGFR values calculated with the CKD-EPI equation are not accurate in patients with acute kidney failure, extremes of body mass or the acutely ill. http://MinuteBuzz/[facility] CITYnkf Blood specimen (specimen) 01/04/2020 8:38 AM EST 01/04/2020 8:47 AM EST Narrative Resulting Agency Comment Spec In Lab Toño West MD CHEMISTRY ORDERA [facility] Organization Address City/State/[facility] Co de Phone Number [facility] [place] [address] documented in this encounter Visit Diagnoses Diagnosis [...] 2 minutes is a recommendation from the powerhouse mechanic supervisor. Administer prior to chemotherapy., Routine Given 01/04/2020 [...] 10 mg, Intravenous, ONCE, 1 dose, On e 01/04/20 at 1115, Administer prior to chemotherapy [...] mL/hr documented in this encounter Care Teams Wireless Cellular Technician Relationship Specialty Start Date End Date Kathy Wright, FINANCING ANALYST PCP - General Family Medicine 04/22/19 documented as of this encounter
--- OUTSIDE RECORDS SUMMARY | 2024-07-28 02:09 | XMS_ITS | Encounter Summary ---
Author Organization [facility] [place] [address] Care Team Providers Care Account Clerk Name Role Phone Kathy Wright APRN Primary Care Provider Encounter Details Date Type Department Care Team (Late st Contact Info) Description 04/06/2020 4:25 PM EDT Ancillary Procedure [place] [address] Toño West MD [facility] [place] [address] Social History Tobacco Use Types Packs/Day Years [...] West MD IMG FILM LIBRARY ORDERABLES DELIA [place], [place] documented in this encounter Visit Diagnoses Not on filedocumented in this encounter Care Teams Account Clerk Relationship Specialty Start Date End Date Kathy Wright APRN PCP - General Family Medicine 04/22/19 documented as of this encounter
--- OUTSIDE RECORDS SUMMARY | 2024-07-28 02:09 | XMS_ITS | Encounter Summary ---
Author Organization [facility] [place] [address] Care Team Providers Care Senior Health Consultant Name Role Phone GerardoKathy nicolas Butch DANIEL Primary Care Provider [phone] Encounter Details Date Type Department Care Team (Late st Contact Info) Description 01/10/2020 Telephone Hematology [place] [address] Yanna Abreu, RN Social History Tobacco Use [...] 3:25 PM EST Message received from clinical secretary administrative assistant: Patient would like to update a nurse on her ED visit yesterday at [facility] please call [phone] Call placed to patient who explains that [...] weak and lethargic. She was brought to [facility] where she was given some IV [...] on filedocumented in this encounter Care Teams Senior Health Consultant Relationship Specialty Start Date End Date Kathy Wright APRN PCP - General Family Medicine 04/22/19 documented as of this encounter
--- OUTSIDE RECORDS SUMMARY | 2024-07-28 02:09 | XMS_ITS | Encounter Summary ---
[place] [address] Care Team Providers Care Instrument Tech Name Role Phone Kathy Wright MARÍA Primary Care Provider [phone] Encounter Details Date Type Department Care Team (Late st Contact Info) Description 02/01/2020 Notes [place] [address] Christina Almonte Social History Tobacco Use Types [...] filedocumented in this encounter Care Teams Instrument Tech Relationship Specialty Start Date End Date Kathy Wright APRN PCP - General Family Medicine 04/22/19 documented as of this encounter
--- OUTSIDE RECORDS SUMMARY | 2024-07-28 02:09 | XMS_ITS | Encounter Summary ---
Author [facility] [place] [place] [address] Care Team Providers Care Ceramics Technician Name Role Phone Kathy Wright PACKER DRIED BEEF Primary Care Provider [phone] Encounter Details Date Type Department Care Team (Late st Contact Info) Description 03/17/2020 Telephone Hematology [place] [address] Radha Bynum RN Social History Tobacco Use [...] get her repeat labs on 5/1 at [facility]. Encouraged her to call back should she have further questions or concerns. glazier helper to follow up with BMP and Mag levels from [facility] on 03/31 and call patient with results. documented in this encounter Plan of Treatment Not on file documented as of this encounter Visit Diagnoses Diagnosis Non-small cell lung cancer, right documented in this encounter Care Teams Ceramics Technician Relationship Specialty Start Date End Date Kathy Wright, PACKER DRIED BEEF PCP - General Family Medicine 04/22/19 documented as of this encounter
--- OUTSIDE RECORDS SUMMARY | 2024-07-28 02:09 | XMS_ITS | Encounter Summary ---
Author Organization [facility] [place] [address] Care Team Providers Care Soap Slabber Name Role Phone Kathy Wright APRN Primary Care Provider [phone] Encounter Details Date Type Department Care Team (Late st Contact Info) Description 01/13/2020 Orders Only Hematology [place] [address] Adrienne Mendez APRN [facility] [place] [address] Non-small cell lung cancer, right Social History [...] right documented in this encounter Care Teams Soap Slabber Relationship Specialty Start Date End Date Kathy Wright APRN PCP - General Family Medicine 04/22/19 documented as of this encounter
--- OUTSIDE RECORDS SUMMARY | 2024-07-28 02:09 | XMS_ITS | Encounter Summary ---
Author Organization [facility] [place] [address] Care Team Providers Care Slitter Creaser Slotter Operator Name Role Phone Kathy Wright Butch DANIEL Primary Care Provider [phone] Encounter Details Date Type Department Care Team (Latest Contact Info) Description 01/04/2020 8:15 AM EST - 01/04/2020 8:28 AM [facility] Hospital Encounter [place]ematology [place] [address] Non-small cell lung cancer, right Discharge Disposition: [...] lung cancer, right COMPREHENSIVE METABOLIC PANEL STAT 01/04/2020 8:38 AM EST Non-small cell lung cancer, right documented in this encounter Results * (ABNORMAL) Differential, Automated (01/04/2020 8:38 AM EST) Neutrophil % 57.0 % [facility] Neutrophil Absolute 6.45(H) 1.70 - 6.10 x10(3)/mc L [facility] Lymph % 29.6 % [facility] Lymphocytes Abs 3.4(H) 0.9 - 3.2 x10(3)/mc L [facility] Monocyte % 11.8 % [facility] Monocyte Abs 1.3(H) 0.3 - 0.9 x10(3)/mc L [facility] Eos % 0.2 % [facility] Eosinophils Abs 0.0 0.0 - 0.4 x10(3)/mc L [facility] Basophil % 0.8 % [facility] Baso Absolute 0.1 0.0 - 0.1 x10(3)/mc L [facility] Immature Gran % 0.60 % [facility] Comment: Immature granulocytes(IG's)percentage and absolute count will include metamyelocytes, myelocytes, and promyelocytes. Blood smears from CBCs yielding IG's will be scanned manually for concordance. If this scan disagrees with the automated IG or if promyelocytes are noted, a manual differential will be performed. Immature Gran Absolute 0.07(H) 0.00 - 0.04 x10(3)/mc L [facility] Blood specimen (specimen) 01/04/2020 8:38 AM EST 01/04/2020 8:47 AM EST Narrative Resulting Agency Comment Spec In Lab Toño West MD HEMATOLOGY ORDER KATHY [facility] [place] [address] * (ABNORMAL) Hemogram (01/04/2020 8:38 AM EST) White Blood Cell 11.3(H) 4.0 - 9.5 x10(3)/mc L [facility] Red Blood Cell 3.39(L) 4.00 - 5.21 x10(6)/mc L [facility] Hemoglobin 10.5(L) 11.7 - 15.5 gm/dL [facility] Hematocrit 31.2(L) 35.7 - 45.8 % [facility] Mean Cell Volume 92.0 82.6 - 94.4 fL [facility] Mean Cell Hemoglobin 31.0 27.1 - 32.0 pg [facility] Mean Cell Hemoglobin Concentration 33.7 31.7 - 35.0 gm/dL [facility] Platelet 189 145 - 357 x10(3)/mc L [facility] RDW Standard Deviation 51.3(H) 37.0 - 46.0 fL [facility] RDW coefficient of variation 16.9(H) 11.5 - 14.1 % [facility] Mean Platelet Volume 9.3 7.6 - 12.9 fL [facility] NRBC% auto 0.0 % [facility] NRBC Absolute 0.000 0.000 - 0.000 x10(3)/mc L [facility] Blood specimen (specimen) 01/04/2020 8:38 AM EST 01/04/2020 8:47 AM EST Narrative Resulting Agency Comment Spec In Lab Toño West MD HEMATOLOGY ORDER KATHY [facility] [place] [address] * (ABNORMAL) Comprehensive metabolic panel (non-fasting) (01/04/2020 8:38 AM EST) Glucose 98 65 - 199 mg/dL [facility] Comment:Diabetes: >=200 mg/d L plus symptoms Blood Urea Nitrogen 24(H) 8 - 18 mg/dL [facility] Creatinine 1.18 0.70 - 1.20 mg/dL [facility] Sodium 138 135 - 145 mmol/L [facility] Potassium 4.0 3.5 - 5.0 mmol/L [facility] Comment: Please note: ??Patients with WBC >100,000 may have falsely elevated Potassium levels. ??For accurate Potassium quantification in these patients send serum separator tube (gold top) for subsequent determinations. ??Contact the Clinical Chemistry Laboratory if there are any questions. Chloride 102 98 - 107 mmol/L [facility] Carbon Dioxide 21(L) 22 - 31 mmol/L [facility] Anion Gap 15 5 - 15 mmol/L [facility] Calcium 9.4 8.5 - 10.5 mg/dL [facility] Protein, Total 7.1 6.1 - 8.0 gm/dL [facility] Albumin 4.0 3.2 - 5.2 gm/dL [facility] Aspartate Aminotransferase 23 0 - 30 unit/L [facility] Alanine Aminotransferase 19 0 - 30 unit/L [facility] Alkaline Phosphatase 126(H) 35 - 105 unit/L [facility] Bilirubin, Total 0.2 0.2 - 1.3 mg/dL [facility] Est Glomerular Filtration Rate 50(L) >=60 mL/min/1. 73 m?? [facility] Comment: The eGFR was calculated using the CKD-EPI equation. As with all creatinine based estimates of kidney function, eGFR values calculated with the CKD-EPI equation are not accurate in patients with acute kidney failure, extremes of body mass or the acutely ill. http://[employer] Mix/[facility] CITY[facility] eGFR 58(L) >=60 mL/min/1. 73 m?? [facility] Comment: The eGFR was calculated using the CKD-EPI equation. As with all creatinine based estimates of kidney function, eGFR values calculated with the CKD-EPI equation are not accurate in patients with acute kidney failure, extremes of body mass or the acutely ill. http://[employer]/[facility] CITYnk[facility] Blood specimen (specimen) 01/04/2020 8:38 AM EST 01/04/2020 8:47 AM EST Narrative Resulting Agency Comment Spec In Lab Toño West MD CHEMISTRY ORDERA BLES Performing Organization Address City/[facility]/ZIP Co de Phone Number [facility] [place] [address] * Lactate Dehydrogenase (01/04/2020 8:38 AM EST) Lactate Dehydrogenase Not Perf 110 - 220 [facility] Comment:Unable to quantitate due to sample hemolysis. Sample redraw suggested. Blood specimen (specimen) 01/04/2020 8:38 AM EST 01/04/2020 8:47 AM EST Narrative Resulting Agency Comment Spec In Lab Toño West MD CHEMISTRY ORDERA BLES Performing Organization Address City/[facility]/ZIP Co de Phone Number [facility] [place] [address] documented in this encounter Visit Diagnoses Diagnosis Non-small cell lung cancer, right documented in this encounter Care Teams Slitter Creaser Slotter Operator Relationship Specialty Start Date End Date Kathy Wright APRN PCP - General Family Medicine 04/22/19 documented as of this encounter
--- OUTSIDE RECORDS SUMMARY | 2024-07-28 02:09 | XMS_ITS | Encounter Summary ---
Author Organization [facility] [place] [address] Care Team Providers Care Talking Books Library Clerk Name Role Phone Kathy Wright MARÍA Primary Care Provider [phone] Encounter Details Date Type Department Care Team (Late st Contact Info) Description 02/17/2020 Telephone Hematology [place] [address] Scarlett Castillo, RN Social History Tobacco Use [...] RN - 02/17/2020 7:52 AM EDT Follow-up: janitorial account manager to follow-up on BMP results on 02/16 [facility] and call patient with results. Monitoring her BUN/Cr. Lab results received, entered into ED-H & reviewed with Dr. West. Per Dr. West: Let's arrange for a repeat BMP with magnesium in 1 week locally. Orders placed for BMP, Mg+. Message sent to press secretary to arrange labs for 02/[address] [facility]. Triage nurseto f/u on results. Marleni is aware of this lab draw and will get this done on 02/24. Clinical press secretary to fax orders to [facility]. janitorial account manager to follow-up on lab results on 02/24 and call patient with results. Message received from press secretary: Marleni had more questions about her lab work on Fridays specifically the Mg ??She will go on Friday to have it drawn. She also reports that she has had a headache for days [phone] Call placed back to discuss. Pt wanting [...] 02/18/2020 11:04 AM EDT COMPREHENSIVE METABOLIC PANEL Routine 02/18/2020 11:04 AM EDT documented in this encounter Results * (ABNORMAL) Comprehensive metabolic panel (non-fasting) (02/18/2020 11:04 AM EDT) Pathologist [facility] [place] Glucose 173(EXTER NAL/ABN) 74 - 106 Blood Urea Nitrogen 19(TAKER OFF AL/ABN) 7 - 18 Creatinine 1.52(EXTE RNAL/ABN) 0.55 - 1.02 Sodium 141(Exter nal Lab) 136 - 145 Potassium 4.3(Exter nal Lab) 3.4 - 5.0 Chloride 104(Exter nal Lab) 98 - 107 Carbon Dioxide 26(Irrigator al Lab) 21 - 32 Calcium 9.3(Exter nal Lab) 8.5 - 10.1 Protein, Total 7.4(Exter nal Lab) 6.4 - 8.2 Albumin 3.6(Exter nal Lab) 3.4 - 5 Bilirubin, Total 0.2(Exter nal Lab) 0.2 - 1 Alkaline Phosphatase 100(Exter nal Lab) 46 - 116 Aspartate Aminotransferase 19(Irrigator al Lab) 15 - 37 Alanine Aminotransferase 41(Irrigator al Lab) 14 - 59 Magnesium 1.7(EXTER NAL/ABN) 1.8 - 2.4 mg/dL Blood specimen (specimen) 02/18/2020 11:04 AM EDT Historical Provider CHEMISTRY ORDERAB LES * (ABNORMAL) CBC (with Diff) (02/18/2020 11:04 AM EDT) Pathologist [facility] [place] White Blood Cell 5.69(Exter nal Lab) 4.4 - 10.8 Hemoglobin 8.8(TAKER OFF AL/ABN) 12.0 - 15.5 Hematocrit 26.5(EXTER NAL/ABN) 36.0 - 46.0 Platelet 280(Irrigator al Lab) 130 - 400 ANC 3.52(Exter nal Lab) 1.2 - 6.7 Blood specimen (specimen) 02/18/2020 11:04 AM EDT Historical Provider HEMATOLOGY ORDERA BLES documented in this encounter Visit Diagnoses Diagnosis Non-small cell lung cancer, right documented in this encounter Care Teams Talking Books Library Clerk Relationship Specialty Start Date End Date Kathy Wright, SUPERVISOR GATE SERVICES PCP - General Family Medicine 04/22/19 documented as of this encounter
--- OUTSIDE RECORDS SUMMARY | 2024-07-28 02:09 | XMS_ITS | Encounter Summary ---
[place] [address] Care Team Providers Care Nuclear Medicine Technician Name Role Phone Kathy Wright LABORER DRYING DEPARTMENT Primary Care Provider [phone] Encounter Details Date Type Department Care Team (Late st Contact Info) Description 12/31/2019 Telephone Hematology [place] [address] Radha Bynum RN Social History Tobacco Use [...] 12/31/2019 2:16 PM EST Message received from flying i instructor: Marleni called and wants to move her appts on Friday. Wanted to make sure this is ok before cancelling. Let me know. Message received from flying i instructor: Sorry I didn't speak with her when [...] on filedocumented in this encounter Care Teams Nuclear Medicine Technician Relationship Specialty Start Date End Date Kathy Wright APRN PCP - General Family Medicine 04/22/19 documented as of this encounter
--- OUTSIDE RECORDS SUMMARY | 2024-07-28 02:09 | XMS_ITS | Encounter Summary ---
[place] [address] Care Team Providers Care Critical Care Unit Nurse Name Role Phone Kathy Wright Butch DANIEL Primary Care Provider [phone] Encounter Details Date Type Department Care Team (Late st Contact Info) Description 01/24/2020 Telephone Hematology [place] [address] Jane Calles RN Social History Tobacco Use [...] 10:48 AM EST RESEARCH NURSE TELEPHONE NOTE [id number],Adjuvant Lung Cancer Enrichment Marker Identification and Sequencing Trial Date: 01/24/2020 Time: 3:59 PM Study Day: prescreening Reason for call: incomplete informed consent (home) I spoke with Marleni and explained that the she missed checking off yes or no to the Optional Banking Study, where her leftover tissue or blood sample would be stored for future use for research at the [facility], and explained she would not [...] on filedocumented in this encounter Care Teams Critical Care Unit Nurse Relationship Specialty Start Date End Date Kathy Wirght APRN PCP - General Family Medicine 04/22/19 documented as of this encounter
--- OUTSIDE RECORDS SUMMARY | 2024-07-28 02:09 | XMS_ITS | Encounter Summary ---
[place] [address] Care Team Providers Care Sql Report Analyst Name Role Phone Kathy Wright DIRECTOR PHARMACY SERVICES Primary Care Provider [phone] Encounter Details Date Type Department Care Team (Late st Contact Info) Description 02/15/2020 Telephone Hematology [place] [address] Radha Bynum RN Social History Tobacco Use [...] have her labs drawn on 02/[address] [facility]. superintendent drilling to follow-up with lab results on 02/28 and call patient with results. documented in this encounter Plan of Treatment Not on file documented as of this encounter Visit Diagnoses Not on filedocumented in this encounter Care Teams Sql Report Analyst Relationship Specialty Start Date End Date Kathy Wright APRN PCP - General Family Medicine 04/22/19 documented as of this encounter
--- OUTSIDE RECORDS SUMMARY | 2024-07-28 02:09 | XMS_ITS | Encounter Summary ---
Author Organization Formerly [facility] Address [facility] [place] [address] Care Team Providers Care Hide Inspector And Sorter Name Role Phone Kathy Wright APRN Primary Care Provider [phone] Reason for Visit * Reason Comments Lung Cancer Follow-up Encounter Details Date Type Department Care Team (Late st Contact Info) Description 04/07/2020 1:00 PM EDT TH Visit (TeleHealth) [place] [address] Toño West MD [facility] [address] Non-small cell lung cancer, right Social History [...] RLL.??A dedicated??CT Chest was performed??07/02/18??which demonstrated stable srbb-ip-wttw nodules in the RLL, largest measuring 9 [...] 2.78) performed by Juan Ny MD at [facility] MAIN OR ? ? PRO INJECTION ANES AGENT &/ STEROID INTERCOSTAL NERVE EA ADDL LEVEL Right 10/06/2019 NERVE BLOCK, INTERCOSTAL NERVE, MULTIPLE (WRVU 1.68) performed by Juan Ny MD at [facility] MAIN OR ??? PRO THORACOSCOPY SURG LOBECTOMY Right 10/06/2019 @ROBOT XI THORACOSCOPY,SURGICAL,W\LOBECTOMY,TOTAL OR SEGMENTAL (WRVU 24.64) performed by Juan Ny MD at [facility] MAIN OR ??? PRO THORACOSCOPY WITH MEDIASTINAL AND REGIONAL LYMPHADENECTOMY Right 10/06/2019 @ROBOT XI THORACOSCOPY,SURG; W/MEDIASTINAL& REGIONAL LYMPHADENECTOMY (WRVU 4.12) performed by Juan Ny MD at [facility] MAIN OR ??? 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 She was previously seen by a debeader and we will contact them for a [...] natural history of renal impairment related to [place], where improvement may be slow over many months and sometimes is incomplete. If worsening in creatinine is noted, we will refer her to a secret service agent. I advised her on improving her nutritional intake of calories, protein and fluids. The patient agrees with this plan. RTC in [address] and labs at [facility] and phone visit, in order to reduce [...] right documented in this encounter Care Teams Hide Inspector And Sorter Relationship Specialty Start Date End Date Kathy Wright APRN PCP - General Family Medicine 04/22/19 documented as of this encounter
--- OUTSIDE RECORDS SUMMARY | 2024-07-28 02:09 | XMS_ITS | Encounter Summary ---
Author Organization [facility] Address [facility] [place] [address] Care Team Providers Care Technical Supervisor Name Role Phone GerardoKathy nicolas Butch DANIEL Primary Care Provider [phone] Reason for Visit * Reason Comments Follow-up Lung Cancer Encounter Details Date Type Department Care Team (Late st Contact Info) Description 02/01/2020 1:15 PM EST Office Visit Hematology [place] [address] Toño West MD [facility] [place] [address] Adrienne Mendez APRN [facility] [address] [place]ATOLOG[place] [address] Non-small cell lung cancer, right Social History [...] RLL.??A dedicated??CT Chest was performed??07/02/18??which demonstrated stable fimi-wy-npkc nodules in the RLL, largest measuring 9 [...] 2.78) [facility] ? ? PRO INJECTION ANES AGENT &/ STEROID INTERCOSTAL NERVE EA ADDL LEVEL Right 10/06/2019 NERVE BLOCK, INTERCOSTAL NERVE, MULTIPLE (WRVU 1.68) performed by [facility] MA[facility] ??? PRO THORACOSCOPY SURG LOBECTOMY Right 10/06/2019 @ROBOT XI THORACOSCOPY,SURGICAL,W\LOBECTOMY,TOTAL OR SEGMENTAL (WRVU 24.64) performed by [facility] MA[facility] OR ??? PRO THORACOSCOPY WITH MEDIASTINAL AND REGIONAL LYMPHADENECTOMY Right 10/06/2019 @ROBOT XI THORACOSCOPY,SURG; W/MEDIASTINAL& REGIONAL LYMPHADENECTOMY (WRVU 4.12) performed by [facility] MA[facility] OR ??? 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 The patient agrees with this plan. RTC [...] right documented in this encounter Care Teams Technical Supervisor Relationship Specialty Start Date End Date Kathy Wright APRN PCP - General Family Medicine 04/22/19 documented as of this encounter
--- OUTSIDE RECORDS SUMMARY | 2024-07-28 02:09 | XMS_ITS | Encounter Summary ---
Author Organization Formerly [facility] Address [facility] [place] [address] Care Team Providers Care Biomedical Service Engineer Name Role Phone GerardoKathy nicolas Butch DANIEL Primary Care Provider [phone] Reason for Visit * Reason Comments Dehydration IV hydration * Treatment/Therapy Plan Authorization (Routine) - Closed Specialty Diagnoses / Procedures Referred By Janie cassidy Referred To Contact Hematology and Oncology Diagnoses Non-small cell lung cancer, right Procedures TC PALONOSETRON HCL, 25MCG, INJECTION (ALOXI) TC APREPITANT, 1 MG, INJECTION TC PEMETREXED, 10MG, INJECTION (ALIMTA) TC CARBOPLATIN, 50MG, INJECTION (PARAPLATIN) Toño West MD [facility] [place] [address] [facility] [address] [place] [address] Referral ID Status Reason Start Date Expiration Date Visits Re quested Visits Authorized [id number] Closed 12/28/2019 12/27/2020 12 12 Encounter Details Date Type Department Care Team (Latest Contact Info) Description 02/01/2020 11:35 AM EST Hospital Encounter Hematology [place] [address] Non-small cell lung cancer, right [...] TREATMENT STARTED: 1430 TIME TREATMENT ENDED: 1645 Marleni Arreola, 59 y.o. female with diagnosis [...] (ABNORMAL) Lactate Dehydrogenase (02/01/2020 11:42 AM EST) Lactate Dehydrogenase 347(H) 110 - 220 unit/L [facility] Blood specimen (specimen) 02/01/2020 11:42 AM EST 02/01/2020 11:52 AM EST Narrative Resulting Agency Comment Spec In Lab Toño West MD CHEMISTRY ORDERA BLES [facility] [place] [address] * (ABNORMAL) Comprehensive metabolic panel (non-fasting) (02/01/2020 11:42 AM EST) Glucose 95 65 - 199 mg/dL [facility] Comment:Diabetes: >=200 mg/d L plus symptoms Blood Urea Nitrogen 18 8 - 18 mg/dL [facility] Creatinine 2.46(H) 0.70 - 1.20 mg/dL [facility] Sodium 141 135 - 145 mmol/L [facility] Potassium 4.3 3.5 - 5.0 mmol/L [facility] Comment: Please note: ??Patients with WBC >100,000 may have falsely elevated Potassium levels. ??For accurate Potassium quantification in these patients send serum separator tube (gold top) for subsequent determinations. ??Contact the Clinical Chemistry Laboratory if there are any questions. Chloride 105 98 - 107 mmol/L [facility] Carbon Dioxide 23 22 - 31 mmol/L [facility] Anion Gap 13 5 - 15 mmol/L [facility] Calcium 9.2 8.5 - 10.5 mg/dL [facility] Protein, Total 7.0 6.1 - 8.0 gm/dL [facility] Albumin 4.1 3.2 - 5.2 gm/dL [facility] Aspartate Aminotransferase 30 0 - 30 unit/L [facility] Alanine Aminotransferase 36(H) 0 - 30 unit/L [facility] Alkaline Phosphatase 93 35 - 105 unit/L [facility] Bilirubin, Total 0.2 0.2 - 1.3 mg/dL [facility] Comment:result rechecked-rigoberto Est Glomerular Filtration Rate 21(L) >=60 mL/min/1. 73 m?? [facility] Comment: The eGFR was calculated using the CKD-EPI equation. As with all creatinine based estimates of kidney function, eGFR values calculated with the CKD-EPI equation are not accurate in patients with acute kidney failure, extremes of body mass or the acutely ill. [email or web address]/[email or web address] [email or web address] eGFR 24(L) >=60 mL/min/1. 73 m?? [facility] Comment: The eGFR was calculated using the CKD-EPI equation. As with all creatinine based estimates of kidney function, eGFR values calculated with the CKD-EPI equation are not accurate in patients with acute kidney failure, extremes of body mass or the acutely ill. [email or web address] Blood specimen (specimen) 02/01/2020 11:42 AM EST 02/01/2020 11:52 AM EST Narrative Resulting Agency Comment Spec In Lab Toño West MD CHEMISTRY ORDERA KEDAR [facility] [place] [address] documented in this encounter Visit Diagnoses Diagnosis [...] mL/hr documented in this encounter Care Teams Biomedical Service Engineer Relationship Specialty Start Date End Date Kathy Wright, SUPERANNUATION FUNDS MANAGER PCP - General Family Medicine 04/22/19 documented as of this encounter
--- OUTSIDE RECORDS SUMMARY | 2024-07-28 02:09 | XMS_ITS | Encounter Summary ---
Author Organization [facility] [place] [address] Care Team Providers Care Soap Chipper Name Role Phone Kathy Wright MARÍA Primary Care Provider Encounter Details Date Type Department Care Team (Late st Contact Info) Description 01/03/2020 Telephone [place] [address] Radha Bynum RN Social History Tobacco Use [...] RN - 01/03/2020 8:24 AM EST Follow-up: credit relationship manager to call on 01/03 to assess her [...] on filedocumented in this encounter Care Teams Soap Chipper Relationship Specialty Start Date End Date Kathy Wright APRN PCP - General Family Medicine 04/22/19 documented as of this encounter
--- OUTSIDE RECORDS SUMMARY | 2024-07-28 02:09 | XMS_ITS | Encounter Summary ---
Author Organization [facility] [place] [address] Care Team Providers Care Electronics Maintenance Technician Name Role Phone GerardoKathy nicolas Butch DANIEL Primary Care Provider [phone] Reason for Visit * Reason Comments Follow-up Encounter Details Date Type Department Care Team (Late st Contact Info) Description 12/28/2019 9:15 AM EST Office Visit Hematology [place] [address] Toño West MD [facility] [place] [address] Adrienne Mendez APRN [facility] DR HEMATOLOGY[place] [address] Letty Vargas MD [facility] DR HEMATOLOGY/[place] [address] Non-small cell lung cancer, right; NAHUM (acute [...] this encounter Progress Notes * Adrienne Mendez, WHITE KID BUFFER - 12/28/2019 9:15 AM EST Images from [...] RLL.??A dedicated??CT Chest was performed??07/02/18??which demonstrated stable icqq-rl-pijd nodules in the RLL, largest measuring 9 [...] 2.78) performed by Juan Ny MD at [facility] MAIN OR ? ? PRO INJECTION ANES AGENT &/ STEROID INTERCOSTAL NERVE EA ADDL LEVEL Right 10/06/2019 NERVE BLOCK, INTERCOSTAL NERVE, MULTIPLE (WRVU 1.68) performed by Juan Ny MD at [facility] MAIN OR ??? PRO THORACOSCOPY SURG LOBECTOMY Right 10/06/2019 @ROBOT XI THORACOSCOPY,SURGICAL,W\LOBECTOMY,TOTAL OR SEGMENTAL (WRVU 24.64) performed by Juan Ny MD at [facility] MAIN OR ??? PRO THORACOSCOPY WITH MEDIASTINAL AND REGIONAL LYMPHADENECTOMY Right 10/06/2019 @ROBOT XI THORACOSCOPY,SURG; W/MEDIASTINAL& REGIONAL LYMPHADENECTOMY (WRVU 4.12) performed by Juan Ny MD at [facility] MAIN OR ??? PRO THORACOSCOPY WITH WEDGE RESECTION AND ANATOMIC LUNG RESECTN Right 10/06/2019 @ROBOT XI THORACOSCOPY,SURG; W/DX WEDGE RESC W/ANATOMIC LUNG RESC (WRVU 3) performed by Juan Ny MD at [facility] MAIN OR MEDS: Current Outpatient Medications on [...] Personal: Lives at home by herself in [place], [place] Work history: Disabled, previously a [...] type documented in this encounter Care Teams Electronics Maintenance Technician Relationship Specialty Start Date End Date Kathy Wright APRN PCP - General Family Medicine 04/22/19 documented as of this encounter
--- OUTSIDE RECORDS SUMMARY | 2024-07-28 02:09 | XMS_ITS | Encounter Summary ---
Author Organization [facility] Address [facility] [place] [address] Care Team Providers Care Nurse Practitioner Physician Assistant Name Role Phone GerardoKathy nicolas Butch DANIEL Primary Care Provider [phone] Reason for Visit * Reason Comments Other Hydration Encounter Details Date Type Department Care Team (Late st Contact Info) Description 01/17/2020 1:30 PM EST Infusion Hematology Oncology at [address] [id number] Non-small cell lung cancer, right Social History [...] mL/hr documented in this encounter Care Teams Nurse Practitioner Physician Assistant Relationship Specialty Start Date End Date Kathy Wright APRN PCP - General Family Medicine 04/22/19 documented as of this encounter
--- OUTSIDE RECORDS SUMMARY | 2024-07-28 02:09 | XMS_ITS | Encounter Summary ---
[place] [address] Care Team Providers Care Roof Cement And Paint Maker Helper Name Role Phone Kathy Wright MARÍA Primary Care Provider [phone] Encounter Details Date Type Department Care Team (Late st Contact Info) Description 03/31/2020 Telephone Hematology [place] [address] Radha Bynum, RN Social History Tobacco Use [...] RN - 03/31/2020 8:22 AM EDT Follow-up: facilities specialist to follow up with BMP and Mag levels from [facility] on 03/31 and call patient with results. Patient needs potassium refilled and sent to [facility] in [facility]. Call placed to Marleni to discuss lab need. She is unable to go today and will go on Tuesday 04/03. facilities specialist to follow-up with lab results on 04/03 and discuss need of potassium refill at that time. documented in this encounter Plan of Treatment Not on file documented as of this encounter Visit Diagnoses Not on filedocumented in this encounter Care Teams Roof Cement And Paint Maker Helper Relationship Specialty Start Date End Date Kathy Wright APRN PCP - General Family Medicine 04/22/19 documented as of this encounter
--- OUTSIDE RECORDS SUMMARY | 2024-07-28 02:09 | XMS_ITS | Encounter Summary ---
[place] [address] Care Team Providers Care Director Ambulatory Name Role Phone Kathy Wright MARÍA Primary Care Provider [phone] Encounter Details Date Type Department Care Team (Late st Contact Info) Description 04/03/2020 Telephone Hematology [place] [phone] Radha Bynum RN Social History Tobacco Use [...] RN - 04/03/2020 8:31 AM EDT Follow-up: oyster worker to follow up with BMP and Mag levels from [facility] on 03/31 and call patient with results. Message received from corporate secretary: Patient calling to report she did not make it to ct at [facility] today nor blood draw, also home health tried drawing her Friday and could not get blood, states pcp supposed to home visit this evening and she is supposed to have tov with dragnev tomorrow. Call placed to Marleni to discuss. Marleni states the [facility] was unable to draw her labs on Friday. She has an appointment today at [facility] for labs and CT scan and she [...] she have further questions or concerns. Clinical corporate secretary to schedule labs and CT at [facility] for 04/06 in preporation for phone visit on 04/[address] West. documented in this encounter Plan of Treatment Not on file documented as of this encounter Visit Diagnoses Not on filedocumented in this encounter Care Teams Director Ambulatory Relationship Specialty Start Date End Date Kathy Wright APRN PCP - General Family Medicine 04/22/19 documented as of this encounter
--- OUTSIDE RECORDS SUMMARY | 2024-07-28 02:09 | XMS_ITS | Encounter Summary ---
[place] [address] Care Team Providers Care Pie Icer Machine Name Role Phone Kathy Wright Butch DANIEL Primary Care Provider [phone] Encounter Details Date Type Department Care Team (Late st Contact Info) Description 04/06/2020 External Results Hematology [place] [address] [place], [place] Non-small cell lung cancer, [...] lung cancer, right COMPREHENSIVE METABOLIC PANEL STAT 04/06/2020 1:25 PM EDT Non-small cell lung cancer, right documented in this encounter Results * (ABNORMAL) Lactate Dehydrogenase (04/06/2020 1:25 PM EDT) [facility] Lactate Dehydrogenase 260(EXTER NAL/ABN) 81 - 234 EXTERNAL LAB Blood specimen (specimen) 04/06/2020 1:25 PM EDT Adrienne Mendez FIBERGLASS SKI MAKER CHEMISTRY ORDERABL ES Performing Organization Address [facility]/ZIP Co de Phone Number EXTERNAL LAB * (ABNORMAL) CBC (with Diff) (04/06/2020 1:25 PM EDT) [facility] White Blood Cell 6.47 4.4 - 10.8 EXTERNAL LAB Hemoglobin 11.2(EXTER NAL/ABN) 12.0 - 15.5 EXTERNAL LAB Hematocrit 32.4(EXTER NAL/ABN) 36.0 - 46.0 EXTERNAL LAB Platelet 267 130 - 400 EXTERNAL LAB ANC 3.48 1.2 - 6.7 EXTERNAL LAB Lymph Absolute Manual 2.24 1.2 - 3.4 EXTERNAL LAB Blood specimen (specimen) 04/06/2020 1:25 PM EDT Adrienne Mendez FIBERGLASS SKI MAKER HEMATOLOGY ORDERAB LES Performing Organization Address [facility] Co de Phone Number EXTERNAL LAB * (ABNORMAL) Comprehensive metabolic panel (non-fasting) (04/06/2020 1:25 PM EDT) Pathologist [facility] Glucose 95 74 - 106 EXTERNAL LAB Blood Urea Nitrogen 14 7 - 18 EXTERNAL LAB Creatinine 1.42(EXTE RNAL/ABN) 0.55 - 1.02 EXTERNAL LAB Est Glomerular Filtration Rate 37.86(EXT ERNAL/ABN ) EXTERNAL LAB Sodium 137 136 - 145 EXTERNAL LAB Potassium 4.1 3.5 - 5.1 EXTERNAL LAB Chloride 101 98 - 107 EXTERNAL LAB Carbon Dioxide 28 21.0 - 32.0 EXTERNAL LAB Calcium 9.6 8.5 - 10.1 EXTERNAL LAB Protein, Total 8.2 6.4 - 8.2 EXTERNAL LAB Bilirubin, Total 0.3 0.2 - 1.0 EXTERNAL LAB Alkaline Phosphatase 110 46 - 116 EXTERNAL L AB Aspartate Aminotransferase 31 15 - 37 EXTERNAL LAB Alanine Aminotransferase 47 14 - 59 EXTERNAL LAB Blood specimen (specimen) 04/06/2020 1:25 PM EDT Adrienne Mendez MARÍA CHEMISTRY ORDERABL ES Performing Organization Address [facility] Co de Phone Number EXTERNAL LAB * (ABNORMAL) Magnesium (04/06/2020 1:25 PM EDT) Magnesium 1.6(EXTERNA L/ABN) 1.8 - 2.4 mg/dL EXTERNAL LAB Blood specimen (specimen) 04/06/2020 1:25 PM EDT Adrienne Mendez MARÍA CHEMISTRY ORDERABL ES Performing Organization Address [facility] de Phone Number EXTERNAL LAB documented in this encounter Visit Diagnoses Diagnosis Non-small cell lung cancer, right documented in this encounter Care Teams Pie Icer Machine Relationship Specialty Start Date End Date Kathy Wright APRN PCP - General Family Medicine 04/22/19 documented as of this encounter
--- OUTSIDE RECORDS SUMMARY | 2024-07-28 02:09 | XMS_ITS | Encounter Summary ---
Author Organization [facility] [place] [address] Care Team Providers Care Conveyor Man Name Role Phone GerardoKathy nicolas Butch DANIEL Primary Care Provider [phone] Encounter Details Date Type Department Care Team (Latest Contact Info) Description 02/01/2020 11:35 AM [facility] Encounter [place] [address] Non-small cell lung cancer, right Discharge Disposition: [...] lung cancer, right COMPREHENSIVE METABOLIC PANEL STAT 02/01/2020 11:42 AM EST Non-small cell lung cancer, right documented in this encounter Results * ABORH Recheck Status (02/01/2020 11:42 AM EST) ABORH Recheck Order Order Placed [facility] ABORH Type Recheck Not Performed [facility] Blood specimen (specimen) 02/01/2020 11:42 AM EST 02/01/2020 11:58 AM EST Narrative Resulting Agency Comment Spec In Lab Toño West MD BLOOD BANK LAB O RDERABLES Performing Organization Address [facility]/[place] [address] * (ABNORMAL) Differential, Automated (02/01/2020 11:42 AM EST) Neutrophil % 61.9 % [facility] Neutrophil Absolute 4.00 1.70 - 6.10 x10(3)/mc L [facility] Lymph % 23.7 % [facility] Lymphocytes Abs 1.5 0.9 - 3.2 x10(3)/ L [facility] Monocyte % 12.4 % [facility] Monocyte Abs 0.8 0.3 - 0.9 x10(3)/ L [facility] Eos % 0.3 % [facility] Eosinophils Abs 0.0 0.0 - 0.4 x10(3)/ L [facility] Basophil % 0.9 % [facility] Baso Absolute 0.1 0.0 - 0.1 x10(3)/ L [facility] Immature Gran % 0.80 % [facility] Comment: Immature granulocytes(IG's)percentage and absolute count will include metamyelocytes, myelocytes, and promyelocytes. Blood smears from CBCs yielding IG's will be scanned manually for concordance. If this scan disagrees with the automated IG or if promyelocytes are noted, a manual differential will be performed. Immature Gran Absolute 0.05(H) 0.00 - 0.04 x10(3)/ L [facility] Blood specimen (specimen) 02/01/2020 11:42 AM EST 02/01/2020 11:52 AM EST Narrative Resulting Agency Comment Spec In Lab Toño West MD HEMATOLOGY ORDER KATHY Performing Organization Address City/[facility]/ZIP Co de Phone Number [facility] [place] [address] * (ABNORMAL) Hemogram (02/01/2020 11:42 AM EST) White Blood Cell 6.5 4.0 - 9.5 x10(3)/mc L [facility] Red Blood Cell 2.82(L) 4.00 - 5.21 x10(6)/mc L [facility] Hemoglobin 9.1(L) 11.7 - 15.5 gm/dL [facility] Hematocrit 27.9(L) 35.7 - 45.8 % [facility] Mean Cell Volume 98.9(H) 82.6 - 94.4 fL [facility] Comment: This result has been called to NOT CALLED by Melissa Kumar on 02 01 2020 at 1223, and has not been read back. Mean Cell Hemoglobin 32.3(H) 27.1 - 32.0 pg [facility] Mean Cell Hemoglobin Concentration 32.6 31.7 - 35.0 gm/dL [facility] Platelet 254 145 - 357 x10(3)/ L [facility] RDW Standard Deviation 62.3(H) 37.0 - 46.0 fL [facility] RDW coefficient of variation 18.1(H) 11.5 - 14.1 % [facility] Mean Platelet Volume 8.9 7.6 - 12.9 fL [facility] NRBC% auto 0.0 % [facility] NRBC Absolute 0.000 0.000 - 0.000 x10(3)/mc L [facility] Blood specimen (specimen) 02/01/2020 11:42 AM EST 02/01/2020 11:52 AM EST Narrative Resulting Agency Comment Spec In Lab Toño West MD HEMATOLOGY ORDER KATHY [facility] [place] [address] * Antibody screen (02/01/2020 11:42 AM EST) Ab Screen Interp Negative [facility] Expires at [id number] on: 02/04/2020 [facility] Blood specimen (specimen) 02/01/2020 11:42 AM EST 02/01/2020 11:58 AM EST Narrative Resulting Agency Comment Spec In Lab Toño West MD BLOOD BANK LAB O RDERABLES [facility] [place] [address] * ABO/Rh Typing (02/01/2020 11:42 AM EST) ABORH Type A Pos [facility] Blood specimen (specimen) 02/01/2020 11:42 AM EST 02/01/2020 11:58 AM EST Narrative Resulting Agency Comment Spec In Lab Toño West MD BLOOD BANK LAB O RDERABLES Performing Organization Address [facility]/ZIP Co de Phone Number [facility] [place] [address] * (ABNORMAL) Lactate Dehydrogenase (02/01/2020 11:42 AM EST) [facility] Lactate Dehydrogenase 347(H) 110 - 220 unit/L [facility] Blood specimen (specimen) 02/01/2020 11:42 AM EST 02/01/2020 11:52 AM EST Narrative Resulting Agency Comment Spec In Lab Toño West MD CHEMISTRY ORDERA BLES Performing Organization Address [facility]/ZIP Co de Phone Number [facility] [place] [address] * (ABNORMAL) Comprehensive metabolic panel (non-fasting) (02/01/2020 11:42 AM EST) [facility] Glucose 95 65 - 199 mg/dL [facility] [...] [facility] Calcium 9.2 8.5 - 10.5 mg/dL [facility] Protein, Total 7.0 6.1 - 8.0 [...] [facility] Comment:result rechecked-rigoberto Reynold Glomerular Filtration Rate 21(L) >=60 mL/min/1. 73 m?? [facility] Comment: The eGFR was calculated using the CKD-EPI equation. As with all creatinine based estimates of kidney function, eGFR values calculated with the CKD-EPI equation are not accurate in patients with acute kidney failure, extremes of body mass or the acutely ill. http://Cell-[employer]-Spot/DHMCnkf eGFR 24(L) >=60 mL/min/1. 73 m?? [facility] Comment: The eGFR was calculated using the CKD-EPI equation. As with all creatinine based estimates of kidney function, eGFR values calculated with the CKD-EPI equation are not accurate in patients with acute kidney failure, extremes of body mass or the acutely ill. http://[employer].com/DHMCnkf Blood specimen (specimen) 02/01/2020 11:42 AM EST 02/01/2020 11:52 AM EST Narrative Resulting Agency Comment Spec In Lab Toño West MD CHEMISTR[place] [address] documented in this encounter Visit Diagnoses Diagnosis Non-small cell lung cancer, right documented in this encounter Care Teams Conveyor Man Relationship Specialty Start Date End Date Kathy Wright APRN PCP - General Family Medicine 04/22/19 documented as of this encounter
--- OUTSIDE RECORDS SUMMARY | 2024-07-28 02:09 | XMS_ITS | Encounter Summary ---
[place] [address] Care Team Providers Care Smoking Pipe Repairer Name Role Phone Kathy Wright APRN Primary Care Provider Encounter Details Date Type Department Care Team (Late st Contact Info) Description 02/23/2020 [place] [id number] Rox Hugo Social History Tobacco Use Types [...] on filedocumented in this encounter Care Teams Smoking Pipe Repairer Relationship Specialty Start Date End Date Kathy Wright APRN PCP - General Family Medicine 04/22/19 documented as of this encounter
--- OUTSIDE RECORDS SUMMARY | 2024-07-28 02:09 | XMS_ITS | Encounter Summary ---
Author Organization [facility] Address [facility] [place] [address] Care Team Providers Care Family Services Manager Name Role Phone Kathy Wright BLACKTOP SPREADER Primary Care Provider [phone] Reason for Visit * Consultation (Routine) - Specialty Diagnoses / Procedures Referred By Jaine cassidy Referred To Contact Pulmonology Diagnoses Chronic [...] LUNGS HAVE BEEN CLEAR OVERALL. Kathy Wright, BLACKTOP SPREADER [address] [place] [address] [facility] Pulmonology [address] [place] [id number] Referral ID Status Reason Start Date Expiration Date V isits Requested Visits Authorized [id number] Consult, Test & [facility] PCP Updated and/or Approved 02/11/2020 08/13/2020 6 6 Encounter Details Date Type Department Care Team (Latest Contact Info) Description 02/28/2020 9:00 AM EDT TH Visit (TeleHealth) Pulmonology at [facility] [place] [address] [facility] [address] PULMONARY MEDICINE [place] [id number] Chronic obstructive pulmonary disease, unspecified COPD type; [...] CRITICAL CARE??MEDICINE Pulmonary and Critical Care Medicine [facility] [place] [address] Telephone follow-up visit Follow-up 59 y.o. female [...] right documented in this encounter Care Teams Family Services Manager Relationship Specialty Start Date End Date Kathy Wright, BLACKTOP SPREADER PCP - General Family Medicine 04/22/19 documented as of this encounter
--- OUTSIDE RECORDS SUMMARY | 2024-07-28 02:09 | XMS_ITS | Encounter Summary ---
[place] [address] Care Team Providers Care Capital Project Engineer Name Role Phone AdrianaKathy Butch DANIEL Primary Care Provider [phone] Encounter Details Date Type Department Care Team (Late st Contact Info) Description 02/09/2020 Telephone [place]ematology [place] [phone] Radha Bynum RN Social History Tobacco Use [...] RN - 02/09/2020 8:23 AM EDT Follow-up: coyote hunter to follow-up on BMP results tomorrow on 02/08 and call patient with results. BMP being drawn at [facility] (her PCP's office). Lab results reviewed with Adrienne Mendez APRN and Dr. West who states he would like to repeat aBMP in 1 week locally. She should continue her synthroid at 100 mcg daily. Call placed to Marleni to discuss. Marleni states she is able to get her labs drawn in 1 week and she would like this drawn at her [facility]. She would like to get this done on 02/16 . Reviewed we would call her on 02/16 to go over results. Encouraged her to continue to push fluids. She verbalized understanding. Encouraged her to call back should she have further questions or concerns. BMP order placed. coyote hunter to follow-up on BMP results on 02/16 and call patient with results. Clinical racing secretary and handicapper to fax BMP order to [facility]. documented in this encounter Plan of Treatment Not on file documented as of this encounter Procedures Procedure Name Priority Date/Time Associated Diagnosis Comments BASIC METABOLIC PANEL Routine 02/08/2020 documented in this encounter Results * (ABNORMAL) Basic Metabolic Panel (non-fasting) (02/08/2020) Glucose 125(ADDICTION PROFESSIONAL AL/ABN) 74 - 106 Blood Urea Nitrogen 25(EXTERNA L/ABN) 7 - 18 Creatinine 1.37(EXTER NAL/ABN) 0.55 - 1.02 Sodium 140(Machinist 2Nd Shift al Lab) 136 - 145 Potassium 4.2(Machinist 2Nd Shift al Lab) 3.5 - 5.1 Chloride 103(Machinist 2Nd Shift al Lab) 98 - 107 Carbon Dioxide 28(Externa l Lab) 21 - 32 Calcium 9.0(Machinist 2Nd Shift al Lab) 8.5 - 10.1 Thyroid Stimulating Hormone 8.06(EXTER NAL/ABN) 0.36 - 3.74 Free T4 0.93(Exter nal Lab) 0.76 - 1.46 Blood specimen (specimen) 02/08/2020 Historical Provider CHEMISTRY ORDERAB LES documented in this encounter Visit Diagnoses Diagnosis Non-small cell lung cancer, right documented in this encounter Care Teams Capital Project Engineer Relationship Specialty Start Date End Date Kathy Wright APRN PCP - General Family Medicine 04/22/19 documented as of this encounter
--- OUTSIDE RECORDS SUMMARY | 2024-07-28 02:09 | XMS_ITS | Encounter Summary ---
Author Organization [facility] [place] [address] Care Team Providers Care Excel Expert Name Role Phone Kathy Wright MARÍA Primary Care Provider [phone] Encounter Details Date Type Department Care Team (Late st Contact Info) Description 01/17/2020 Refill [place]ematology [place] [address] Radha Bynum RN Non-small cell lung cancer, [...] AM EST Follow-up: Triage-f/u on labs from [facility]. ??Call pt to assess symptoms-nausea, weakness, dizziness [...] will wait to hear from the clinical social secretary regarding a time for her transfusion in [facility]. She has mag oxide at home already and does not need this script, only the potassium. Encouraged her to call back should she have further questions or concerns. Type and screen order placed. Potassium scripts pended to Adrienne Mendez APRN for review and signature. Transfusion orders to be placed by Adreinne Mendez. Clinical social secretary to schedule blood transfusion in [facility] and call patient with date and time. documented in this encounter Plan of Treatment Not on file documented as of this encounter Procedures Procedure Name Priority Date/Time Associated Diagnosis Comments CBC (WITH DIFF) Routine 01/17/2020 COMPREHENSIVE METABOLIC PANEL Routine 01/17/2020 documented in this encounter Results * (ABNORMAL) CBC (with Diff) (01/17/2020) White Blood Cell 4.97(Exter nal Lab) 4.4 - 10.8 Hemoglobin 7.8(FUNNEL COATER AL/ABN) 12.0 - 15.5 Hematocrit 22.7(EXTER NAL/ABN) 36.0 - 46.0 Platelet 73(EXTERNA L/ABN) 130 - 400 ANC 1.25(Exter nal Lab) 1.2 - 6.7 Blood specimen (specimen) 01/17/2020 Historical Provider HEMATOLOGY ORDERA BLES * (ABNORMAL) Comprehensive metabolic panel (non-fasting) (01/17/2020) Glucose 104(Exter nal Lab) 74 - 106 Blood Urea Nitrogen 15(Load Planner al Lab) 7 - 18 Creatinine 1.32(EXTE RNAL/ABN) 0.55 - 1.02 Sodium 142(Exter nal Lab) 136 - 145 Potassium 3.2(EXTER NAL/ABN) 3.5 - 5.1 Chloride 104(Exter nal Lab) 98 - 107 Carbon Dioxide 28(Load Planner al Lab) 21 - 32 Calcium 8.7(Exter nal Lab) 8.5 - 10.1 Albumin 3.5(Exter nal Lab) 3.4 - 5.0 Bilirubin, Total 0.3(Exter nal Lab) 0.2 - 1.0 Alkaline Phosphatase 94(Load Planner al Lab) 46 - 116 Aspartate Aminotransferase 23(Load Planner al Lab) 15 - 37 Alanine Aminotransferase 44(Load Planner al Lab) 14 - 59 Magnesium 1.4(EXTER NAL/ABN) 1.8 - 2.4 mg/dL Blood specimen (specimen) 01/17/2020 Historical Provider CHEMISTRY ORDERAB LES documented in this encounter Visit Diagnoses Diagnosis Non-small cell lung cancer, right documented in this encounter Care Teams Excel Expert Relationship Specialty Start Date End Date Kathy Wright APRN PCP - General Family Medicine 04/22/19 documented as of this encounter
--- OUTSIDE RECORDS SUMMARY | 2024-07-28 02:09 | XMS_ITS | Encounter Summary ---
[place] [address] Care Team Providers Care Trackmobile Operator Name Role Phone GerardoKathy nicolas Butch DANIEL Primary Care Provider [phone] Encounter Details Date Type Department Care Team (Late st Contact Info) Description 02/01/2020 12:30 PM EST Clinical Support [place] [address] Christina Almonte Cigarette nicotine dependence in remission [...] disorder documented in this encounter Care Teams Trackmobile Operator Relationship Specialty Start Date End Date Kathy Wright APRN PCP - General Family Medicine 04/22/19 documented as of this encounter
--- OUTSIDE RECORDS SUMMARY | 2024-07-28 02:09 | XMS_ITS | Encounter Summary ---
Author Organization [facility] [place] [address] Care Team Providers Care Machine Ironer Name Role Phone Kathy Wright MARÍA Primary Care Provider [phone] Encounter Details Date Type Department Care Team (Late st Contact Info) Description 03/10/2020 Telephone [place] [address] Scarlett Castillo, RN Social History Tobacco Use [...] Follow-up: Triage-f/u on BMP, Mg+ 03/10 @ [facility]. Following renal function Plan was for pt to get labs 03/10 @ [facility]. Called to f/u on results 03/10 but per lab pt had not been there. Several calls made to pt to f/u & determine reason she did not get labs. Left messages requesting pt to call back to clinic but have not heard back from pt. Message received from legal administrative secretary: Marleni finally called with a new phone number I have updated chart, she had labs drawn by home health yesterday, I called [facility] they will add bmp, mag and send to us Lab results received & entered into ED-H. Message sent to Dr. West to request he review labs. documented in this encounter Plan of Treatment Not on file documented as of this encounter Visit Diagnoses Not on filedocumented in this encounter Care Teams Machine Ironer Relationship Specialty Start Date End Date Kathy Wright APRN PCP - General Family Medicine 04/22/19 documented as of this encounter
--- OUTSIDE RECORDS SUMMARY | 2024-07-28 02:09 | XMS_ITS | Encounter Summary ---
Author Organization [facility] [place] [address] Care Team Providers Care Factory Engineer Name Role Phone Kathy Wright MARÍA Primary Care Provider [phone] Encounter Details Date Type Department Care Team (Late st Contact Info) Description 01/24/2020 Telephone Hematology [place] [phone] Scarlett Castillo, RN Social History Tobacco Use [...] 01/24/2020 2:10 PM EST Message received from workers compensation legal secretary: Patient calling to report has sinus infection started antibiotics 01/21 and she is wondering if she should be done infusions I thought I was only supposed to have 4 and I have, I am so scared to have another infusion, they make me so sick. She is scheduled for tomorrow 01/25 please advise [phone] Call placed back to pt to discuss. [...] that triage nurse would discuss this with ASSOCIATE SPA DIRECTOR & get back to her with plan. Per Adrienne Mendez, ERP MANAGER: OK to reschedule pt for next week. She should call back to clinic with worsening symptoms. Message sent to workers compensation legal secretary to reschedule & contact pt with new appt times. Call placed back to pt with plan. She is aware she will hear from workers compensation legal secretary with new appt times. Advised to [...] on filedocumented in this encounter Care Teams Factory Engineer Relationship Specialty Start Date End Date Kathy Wright APRN PCP - General Family Medicine 04/22/19 documented as of this encounter
--- OUTSIDE RECORDS SUMMARY | 2024-07-28 02:09 | XMS_ITS | Encounter Summary ---
Author Organization [facility] [place] [address] Care Team Providers Care Card Hanger Name Role Phone GerardoKathy nicolas Butch DANIEL Primary Care Provider [phone] Encounter Details Date Type Department Care Team (Late st Contact Info) Description 03/09/2020 Orders Only Hematology [place] [address] Adrienne Mendez MIXER AND BLENDER [facility] HEMATOLOGY[place] [address] Non-small cell lung cancer, right Social History [...] (specimen) 04/06/2020 1:25 PM EDT Adrienne Mendez MIXER AND BLENDER CHEMISTRY ORDERABL ES Performing Organization Address [facility] Co de Phone Number EXTERNAL LAB * (ABNORMAL) Lactate Dehydrogenase (04/06/2020 1:25 PM EDT) Pathologist [facility] Lactate Dehydrogenase 260(EXTER NAL/ABN) 81 - 234 EXTERNAL LAB Blood specimen (specimen) 04/06/2020 1:25 PM EDT Adrienne Mendez MIXER AND BLENDER CHEMISTRY ORDERABL ES Performing Organization Address [facility] de Phone Number EXTERNAL LAB * (ABNORMAL) Comprehensive metabolic panel (non-fasting) (04/06/2020 1:25 PM EDT) Glucose 95 74 - 106 EXTERNAL LAB [...] (specimen) 04/06/2020 1:25 PM EDT Adrienne Mendez MIXER AND BLENDER CHEMISTRY ORDERABL ES Performing Organization Address [facility]/ZIP Co de Phone Number EXTERNAL LAB * (ABNORMAL) CBC (with Diff) (04/06/2020 1:25 PM EDT) White Blood Cell 6.47 4.4 - 10.8 EXTERNAL LAB Hemoglobin 11.2(EXTER NAL/ABN) 12.0 - 15.5 EXTERNAL LAB Hematocrit 32.4(EXTER NAL/ABN) 36.0 - 46.0 EXTERNAL LAB Platelet 267 130 - 400 EXTERNAL LAB ANC 3.48 1.2 - 6.7 EXTERNAL LAB Lymph Absolute Manual 2.24 1.2 - 3.4 EXTERNAL LAB Blood specimen (specimen) 04/06/2020 1:25 PM EDT Adrienne Mendez MIXER AND BLENDER HEMATOLOGY ORDERAB LES EXTERNAL LAB documented in this encounter Visit Diagnoses Diagnosis Non-small cell lung cancer, right documented in this encounter Care Teams Card Hanger Relationship Specialty Start Date End Date Kathy Wright MIXER AND BLENDER PCP - General Family Medicine 04/22/19 documented as of this encounter
--- OUTSIDE RECORDS SUMMARY | 2024-07-28 02:09 | XMS_ITS | Encounter Summary ---
[place] [address] Care Team Providers Care Automotive Service Assistant Name Role Phone Kathy Wright APRN Primary Care Provider [phone] Encounter Details Date Type Department Care Team (Late st Contact Info) Description 04/06/2020 External Results Hematology [place] [address] [place], [place] E Social History Tobacco Use [...] filedocumented in this encounter Care Teams Automotive Service Assistant Relationship Specialty Start Date End Date Kathy Wright APRN PCP - General Family Medicine 04/22/19 documented as of this encounter
--- OUTSIDE RECORDS SUMMARY | 2024-07-28 02:09 | XMS_ITS | Encounter Summary ---
[place] [address] Care Team Providers Care Electronics Assembler Name Role Phone Kathy Wright MARÍA Primary Care Provider [phone] Encounter Details Date Type Department Care Team (Late st Contact Info) Description 03/16/2020 External Results Hematology [place] [address] Gal Cartwright RN Social History Tobacco Use [...] (03/15/2020) Sodium 139 Potassium 4.5 Chloride 102 Carbon Dioxide 26 Blood Urea Nitrogen 21 Creatinine 1.30 Est Glomerular Filtration Rate 41.92 Glucose 116 Calcium 9.4 8.5 - 10.1 Magnesium 1.5 mg/dL Ferritin 371 Anion Gap 11 03/15/2020 Toño West MD EXTERNAL LAB ORD ERABLES documented in this encounter Visit Diagnoses Not on filedocumented in this encounter Care Teams Electronics Assembler Relationship Specialty Start Date End Date Kathy Wright APRN PCP - General Family Medicine 04/22/19 documented as of this encounter
--- OUTSIDE RECORDS SUMMARY | 2024-07-28 02:09 | XMS_ITS | Encounter Summary ---
Author Organization [facility] [place] [address] Care Team Providers Care Engraver Picture Name Role Phone Kathy Wright APRN Primary Care Provider [phone] Encounter Details Date Type Department Care Team (Late st Contact Info) Description 03/16/2020 Telephone Hematology [place] [address] Scarlett Castillo, RN Social History Tobacco Use [...] on filedocumented in this encounter Care Teams Engraver Picture Relationship Specialty Start Date End Date Kathy Wright APRN PCP - General Family Medicine 04/22/19 documented as of this encounter
--- OUTSIDE RECORDS SUMMARY | 2024-07-28 02:09 | XMS_ITS | Encounter Summary ---
Author Organization [facility] [place] [address] Care Team Providers Care Bottle Capping Machine Operator Name Role Phone GerardoKathy nicolas Butch DANIEL Primary Care Provider [phone] Reason for Visit * Reason Comments Follow-up Lung Cancer Encounter Details Date Type Department Care Team (Late st Contact Info) Description 01/04/2020 9:15 AM EST Office Visit [place] [address] Toño Zuluaga MD [facility] [address] Adrienne Mendez APRN [facility] [address] [place] [address] Ltety Vargas MD [facility] [address] HEMATOLOGY/[place] [address] Non-small cell lung cancer, right; NAHUM (acute [...] RLL.??A dedicated??CT Chest was performed??07/02/18??which demonstrated stable [id number] nodules in the RLL, largest measuring 9 [...] 2.78) performed by Juan Ny MD at [facility] MAIN OR ? ? PRO INJECTION ANES AGENT &/ STEROID INTERCOSTAL NERVE EA ADDL LEVEL Right 10/06/2019 NERVE BLOCK, INTERCOSTAL NERVE, MULTIPLE (WRVU 1.68) performed by Juan Ny MD at [facility] MAIN OR ??? PRO THORACOSCOPY SURG LOBECTOMY Right 10/06/2019 @ROBOT XI THORACOSCOPY,SURGICAL,W\LOBECTOMY,TOTAL OR SEGMENTAL (WRVU 24.64) performed by Juan Ny MD at [facility] MAIN OR ??? PRO THORACOSCOPY WITH MEDIASTINAL AND REGIONAL LYMPHADENECTOMY Right 10/06/2019 @ROBOT XI THORACOSCOPY,SURG; W/MEDIASTINAL& REGIONAL LYMPHADENECTOMY (WRVU 4.12) performed by Juan Ny MD at [facility] MAIN OR ??? 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
--- OUTSIDE RECORDS SUMMARY | 2024-07-28 02:09 | XMS_ITS | Encounter Summary ---
Author Organization [place] [address] Care Team Providers Care Tool Crib Supervisor Name Role Phone Kathy Wright APRN Primary Care Provider [phone] Reason for Visit * Reason Comments Medication Refill Encounter Details Date Type Department Care Team (Late st Contact Info) Description 03/30/2020 Refill Hematology [place] [address] Adrienne Mendez APRN [facility] HEMATOLOGY-[place] [address] Social History Tobacco Use Types Packs/Day Years [...] on filedocumented in this encounter Care Teams Tool Crib Supervisor Relationship Specialty Start Date End Date Kathy Wright APRN PCP - General Family Medicine 04/22/19 documented as of this encounter
--- OUTSIDE RECORDS SUMMARY | 2024-07-28 02:09 | XMS_ITS | Encounter Summary ---
Author Organization [facility] Address [facility] [place] [address] Care Team Providers Care Electronic Component Processor Name Role Phone GerardoKathy nicolas Butch DANIEL Primary Care Provider [phone] Reason for Visit * Reason Comments Medication Refill Encounter Details Date Type Department Care Team (Late st Contact Info) Description 03/03/2020 Refill Hematology [place] [address] Adrienne Mendez APRN [facility] [place]ATOLOGY[place] [address] Social History Tobacco Use Types Packs/Day Years [...] Order pended and routed to Adrienne Storms, COMPUTER CLERK for approval. documented in this encounter Plan of Treatment Not on file documented as of this encounter Visit Diagnoses Not on filedocumented in this encounter Care Teams Electronic Component Processor Relationship Specialty Start Date End Date Kathy Wright APRN PCP - General Family Medicine 04/22/19 documented as of this encounter
--- OUTSIDE RECORDS SUMMARY | 2024-07-28 02:09 | XMS_ITS | Encounter Summary ---
[place] [address] Care Team Providers Care Skills Trainer Name Role Phone Kathy Wright MARÍA Primary Care Provider [phone] Encounter Details Date Type Department Care Team (Late Contact Info) Description 02/07/2020 Telephone Hematology [place] [address] Radha Bynum RN Social History Tobacco Use [...] 8:22 AM EDT Follow-up: 02/06 BMP at [facility], remind me to review the results. Per clinical alumnae secretary: JOSE MARTIN : Marleni didn't go to [facility] today. Call placed to Marleni to discuss. Marleni said she is planning to go to her PCP's office today andwill have her labs drawn then. Reviewed with Marleni we will call her with these results as soon aswe have them back. She verbalized understanding. bessemer converter operator to follow-up on BMP results tomorrow on 02/08 and call patient with results. documented in this encounter Plan of Treatment Not on file documented as of this encounter Visit Diagnoses Not on filedocumented in this encounter Care Teams Skills Trainer Relationship Specialty Start Date End Date Kathy Wright APRN PCP - General Family Medicine 04/22/19 documented as of this encounter
--- OUTSIDE RECORDS SUMMARY | 2024-07-28 02:09 | XMS_ITS | Encounter Summary ---
Author Organization [facility] [place] [address] Care Team Providers Care Media Supervisor Name Role Phone Kathy Wright MARÍA Primary Care Provider [phone] Encounter Details Date Type Department Care Team (Late st Contact Info) Description 02/25/2020 Telephone Hematology [place] [phone] Scarlett Castillo, RN Social History Tobacco Use [...] RN - 02/25/2020 7:53 AM EDT Follow-up: supplier specialist to follow-up on lab results on 02/24 [...] asked her to have labs again @ [facility] on 03/10. Pt in agreement. Triage nurse to f/u on results. Message sent to departmental secretary to request labs be arranged for 03/10 @ [facility]. documented in this encounter Plan of Treatment Not on file documented as of this encounter Procedures Procedure Name Priority Date/Time Associated Diagnosis Comments CBC (WITH DIFF) Routine 02/25/2020 11:00 AM EDT COMPREHENSIVE METABOLIC PANEL Routine 02/25/2020 11:00 AM EDT documented in this encounter Results * (ABNORMAL) Comprehensive metabolic panel (non-fasting) (02/25/2020 11:00 AM EDT) Glucose 120(A) 74 - 106 Blood Urea Nitrogen 16 7 - 18 Creatinine 1.35(A) 0.55 - 1.02 Sodium 137(Exter nal Lab) 136 - 145 Potassium 4.2(Exter nal Lab) 3.5 - 5.1 Chloride 103(Exter nal Lab) 98 - 107 Carbon Dioxide 25(Geophysical Prospecting Surveyor al Lab) 21 - 32 Calcium 8.8(Exter nal Lab) 8.5 - 10.1 Protein, Total 7.4(Exter nal Lab) 6.4 - 8.2 Albumin 3.6(Exter nal Lab) 3.4 - 5 Bilirubin, Total 0.3(Exter nal Lab) 0.2 - 1 Alkaline Phosphatase 98(Geophysical Prospecting Surveyor al Lab) 46 - 116 Aspartate Aminotransferase 32(Geophysical Prospecting Surveyor al Lab) 15 - 37 Alanine Aminotransferase 50(Geophysical Prospecting Surveyor al Lab) 14 - 59 Magnesium 1.7(EXTER NAL/ABN) 1.8 - 2.4 mg/dL Blood specimen (specimen) 02/25/2020 11:00 AM EDT Historical Provider CHEMISTRY ORDERAB LES * (ABNORMAL) CBC (with Diff) (02/25/2020 11:00 AM EDT) White Blood Cell 7.93(Exter nal Lab) 4.4 - 10.8 Hemoglobin 8.9(AIRCRAFT MAGNETO MECHANIC AL/ABN) 12.0 - 15.5 Hematocrit 26.5(EXTER NAL/ABN) 36.0 - 46.0 Platelet 278(Geophysical Prospecting Surveyor al Lab) 130 - 400 ANC 4.36(Exter nal Lab) 1.2 - 6.7 Blood specimen (specimen) 02/25/2020 11:00 AM EDT Historical Provider HEMATOLOGY ORDERA BLES documented in this encounter Visit Diagnoses Diagnosis Non-small cell lung cancer, right documented in this encounter Care Teams Media Supervisor Relationship Specialty Start Date End Date Kathy Wright, MARÍA PCP - General Family Medicine 04/22/19 documented as of this encounter
--- OUTSIDE RECORDS SUMMARY | 2024-07-28 02:09 | XMS_ITS | Encounter Summary ---
Author Organization [facility] Address [facility] [place] [address] Care Team Providers Care Centrifuge Operator Name Role Phone Kathy Wright Butch DANIEL Primary Care Provider [phone] Encounter Details Date Type Department Care Team (Latest Contact Info) Description 12/28/2019 8:15 AM EST - 12/28/2019 11:59 PM [facility] Hospital Encounter [place] [address] Non-small cell lung cancer, right Discharge Disposition: [...] lung cancer, right COMPREHENSIVE METABOLIC PANEL STAT 12/28/2019 8:53 AM EST Non-small cell lung cancer, right documented in this encounter Results * (ABNORMAL) Differential, Automated (12/28/2019 8:53 AM EST) Neutrophil % 37.5 % [facility] Neutrophil Absolute 2.84 1.70 - 6.10 x10(3)/mc L [facility] Lymph % 37.5 % [facility] Lymphocytes Abs 2.8 0.9 - 3.2 x10(3)/mc L [facility] Monocyte % 19.5 % [facility] Monocyte Abs 1.5(H) 0.3 - 0.9 x10(3)/mc L [facility] Eos % 1.3 % [facility] Eosinophils Abs 0.1 0.0 - 0.4 x10(3)/mc L [facility] Basophil % 0.5 % [facility] Baso Absolute 0.0 0.0 - 0.1 x10(3)/mc L [facility] Immature Gran % 3.70 % [facility] Comment: Immature granulocytes(IG's)percentage and absolute count will include metamyelocytes, myelocytes, and promyelocytes. Blood smears from CBCs yielding IG's will be scanned manually for concordance. If this scan disagrees with the automated IG or if promyelocytes are noted, a manual differential will be performed. Immature Gran Absolute 0.28(H) 0.00 - 0.04 x10(3)/mc L [facility] Blood specimen (specimen) 12/28/2019 8:53 AM EST 12/28/2019 9:02 AM EST Narrative Resulting Agency Comment Spec In Lab Toño West MD HEMATOLOGY ORDER KATHY [facility] [place] [id number] * (ABNORMAL) Hemogram (12/28/2019 8:53 AM EST) White Blood Cell 7.6 4.0 - 9.5 x10(3)/mc L [facility] Red Blood Cell 3.22(L) 4.00 - 5.21 x10(6)/mc L [facility] Hemoglobin 9.9(L) 11.7 - 15.5 gm/dL [facility] Hematocrit 29.2(L) 35.7 - 45.8 % [facility] Mean Cell Volume 90.7 82.6 - 94.4 fL [facility] Mean Cell Hemoglobin 30.7 27.1 - 32.0 pg [facility] Mean Cell Hemoglobin Concentration 33.9 31.7 - 35.0 gm/dL [facility] Platelet 313 145 - 357 x10(3)/mc L [facility] RDW Standard Deviation 42.6 37.0 - 46.0 fL [facility] RDW coefficient of variation 14.4(H) 11.5 - 14.1 % [facility] Mean Platelet Volume 8.3 7.6 - 12.9 fL [facility] NRBC% auto 0.4 % [facility] NRBC Absolute 0.030(H) 0.000 - 0.000 x10(3)/mc L [facility] Blood specimen (specimen) 12/28/2019 8:53 AM EST 12/28/2019 9:02 AM EST Narrative Resulting Agency Comment Spec In Lab Toño West MD HEMATOLOGY ORDER KATHY [facility] [place] [address] * (ABNORMAL) Comprehensive metabolic panel (non-fasting) (12/28/2019 8:53 AM EST) Glucose 105 65 - 199 mg/dL [facility] Comment:Diabetes: >=200 mg/d L plus symptoms Blood Urea Nitrogen 12 8 - 18 mg/dL [facility] Creatinine 1.37(H) 0.70 - 1.20 mg/dL [facility] Sodium 137 135 - 145 mmol/L [facility] [...] questions. Chloride 100 98 - 107 mmol/L [facility] Carbon Dioxide 22 22 - 31 mmol/L [facility] Anion Gap 15 5 - 15 mmol/L [facility] Calcium 9.8 8.5 - 10.5 mg/dL [facility] Protein, Total 7.1 6.1 - 8.0 gm/dL [facility] Albumin 4.3 3.2 - 5.2 gm/dL [facility] Aspartate Aminotransferase 24 0 - 30 unit/L [facility] Alanine Aminotransferase 26 0 - 30 unit/L [facility] Alkaline Phosphatase 112(H) 35 - 105 unit/L [facility] Bilirubin, Total 0.2 0.2 - 1.3 mg/dL [facility] Est Glomerular Filtration Rate 42(L) >=60 mL/min/1. 73 m?? [facility] Comment: The eGFR was calculated using the CKD-EPI equation. As with all creatinine based estimates of kidney function, eGFR values calculated with the CKD-EPI equation are not accurate in patients with acute kidney failure, extremes of body mass or the acutely ill. http://[facility]/[facility] eGFR 49(L) >=60 mL/min/1. 73 m?? [facility] Comment: The eGFR was calculated using the CKD-EPI equation. As with all creatinine based estimates of kidney function, eGFR values calculated with the CKD-EPI equation are not accurate in patients with acute kidney failure, extremes of body mass or the acutely ill. http://[employer]/[facility] TULSAnkf Blood specimen (specimen) 12/28/2019 8:53 AM EST 12/28/2019 9:02 AM EST Narrative Resulting Agency Comment Spec In Lab Toño West MD CHEMISTRY ORDERA BLES Performing Organization Address [facility]/ZIP Co de Phone Number [facility] [place] [address] * (ABNORMAL) Lactate Dehydrogenase (12/28/2019 8:53 AM EST) Lactate Dehydrogenase 408(H) 110 - 220 unit/L [facility] Blood specimen (specimen) 12/28/2019 8:53 AM EST 12/28/2019 9:02 AM EST Narrative Resulting Agency Comment Spec In Lab Toño West MD CHEMISTRY ORDERA BLES Performing Organization Address City/[facility]/ZIP Co de Phone Number [facility] [place] [address] * (ABNORMAL) Magnesium (12/28/2019 8:53 AM EST) Magnesium 0.65(L) 0.69 - 1.07 mmol/L [facility] Blood specimen (specimen) 12/28/2019 8:53 AM EST 12/28/2019 9:02 AM EST Narrative Resulting Agency Comment Spec In Lab Toño West MD CHEMISTRY ORDERA BLES Performing Organization Address City/State/[facility] Co de Phone Number [facility] [place] [address] documented in this encounter Visit Diagnoses Diagnosis Non-small cell lung cancer, right documented in this encounter Care Teams Centrifuge Operator Relationship Specialty Start Date End Date Kathy Wright APRN PCP - General Family Medicine 04/22/19 documented as of this encounter
--- OUTSIDE RECORDS SUMMARY | 2024-07-28 02:09 | XMS_ITS | Encounter Summary ---
[place] [address] Care Team Providers Care Mason Liner Name Role Phone Kathy Wright Butch DANIEL Primary Care Provider [phone] Encounter Details Date Type Department Care Team (Late st Contact Info) Description 03/27/2020 Telephone [place]ematology [place] [address] Radha Bynum RN Social History Tobacco Use [...] 03/27/2020 10:57 AM EDT Message received from pathology secretary/transcriptionist: Patient does not want to go to [facility] to get chest ct 04/03, she is toscared to go to a hospital that is where all the sick people are however she is still having significant breathing problems with any activity, nose still very stuffy blowing green out of it for thepast 2months, she is having high anxiety about the covid (this has been addressed with her therapist ezra) Please call [phone] Call placed to Marleni to discuss. Marleni states she continues with SOB with exertion. She feels its slightly worse from before. While at rest she feels ok. Continues with a dry frequent cough whichis not new or worsening for her. Afebrile. Denies chills. Denies chest pain or palpitations. Marleni is scheduled to have labs and CT scan at [facility] on 03/31 in preparation for a phone [...] on filedocumented in this encounter Care Teams Mason Liner Relationship Specialty Start Date End Date Kathy Wright APRN PCP - General Family Medicine 04/22/19 documented as of this encounter
--- OUTSIDE RECORDS SUMMARY | 2024-07-28 02:09 | XMS_ITS | Encounter Summary ---
[place] [address] Care Team Providers Care Government Program Manager Name Role Phone Kathy Wright MARÍA Primary Care Provider [phone] Encounter Details Date Type Department Care Team (Late st Contact Info) Description 01/19/2020 Telephone Hematology [place] [address] Marcela Joyce, RN Social History Tobacco Use [...] 12:04 PM EST T/C from Lia from [facility] Med infusion there received one unit of [...] clinic but waiting for her ride. Per THERMOSTATIC CONTROLS SUPERVISOR: Patient to see her PCP tomorrow for blood pressure check T/C To Patient's PCP office spoke to Sofia ), they are aware of the reading as Lia from [facility] did report it to them. They will [...] on filedocumented in this encounter Care Teams Government Program Manager Relationship Specialty Start Date End Date Kathy Wright APRN PCP - General Family Medicine 04/22/19 documented as of this encounter
--- OUTSIDE RECORDS SUMMARY | 2024-07-28 02:09 | XMS_ITS | Encounter Summary ---
Author Organization [facility] [place] [address] Care Team Providers Care Farebox Repairer Name Role Phone Kathy Wright MARÍA Primary Care Provider [phone] Reason for Visit * Reason Onset Date Comments Medication Refill 01/13/2020 Encounter Details Date Type Department Care Team (Late st Contact Info) Description 01/13/2020 Telephone Hematology [place] [address] Scarlett Castillo, sales financial analyst Refill Social History Tobacco Use Types Packs/Day [...] 01/13/2020 11:49 AM EST Message received from department secretary: Marleni called to cancel her 01/25 [...] lincoln rodriguez isnt getting any better. ?? [phone] S/O: Call placed to pt to assess [...] this is new since she saw Dr. Wset last. Nasal congestion & blowing green secretions [...] pt to have labs & hydration at [facility] tomorrow if pt in agreement. Call placed back to pt to discuss. She is unable to get to [facility] tomorrow. States she would be able to go on Friday. Discussed with Adrienne Mendez APRN. Will start pt on dexamethasone 4 mg po daily through the & arrange for labs & hydration Friday @ [facility]. Call placed back to pt with plan. She is able to go for labs & hydration on Friday. Let her know she will hear from department secretary with appointment. Reviewed reason for dexamethasone [...] on filedocumented in this encounter Care Teams Farebox Repairer Relationship Specialty Start Date End Date Kathy Wright APRN PCP - General Family Medicine 04/22/19 documented as of this encounter
--- OUTSIDE RECORDS SUMMARY | 2024-07-28 02:09 | XMS_ITS | Encounter Summary ---
Author Organization [facility] [place] [address] Care Team Providers Care Supervisor Fabrication And Assembly Name Role Phone Kathy Wright KNIFE SETTER ASSEMBLER Primary Care Provider [phone] Encounter Details Date Type Department Care Team (Late st Contact Info) Description 04/06/2020 Telephone [place]ematology [place] [address] Scarlett Castillo, RN Social History Tobacco Use [...] RN - 04/06/2020 8:25 AM EDT Follow-up: laborer syrup machine to get labs and CT results from [facility] on 04/06 in preporation for phone visit [...] filedocumented in this encounter Care Teams Supervisor Fabrication And Assembly Relationship Specialty Start Date End Date Kathy Wright APRN PCP - General Family Medicine 04/22/19 documented as of this encounter
--- OUTSIDE RECORDS SUMMARY | 2024-07-28 02:10 | XMS_ITS | Encounter Summary ---
Author Organization [facility] [place] [address] Care Team Providers Care Specification Manager Name Role Phone Kathy Wright APRN Primary Care Provider [phone] Encounter Details Date Type Department Care Team (Late st Contact Info) Description 12/07/2019 Orders Only Hematology [place] [address] Toño West MD [facility] [place] [address] Social History Tobacco Use Types Packs/Day Years [...] on filedocumented in this encounter Care Teams Specification Manager Relationship Specialty Start Date End Date Kathy Wright APRN PCP - General Family Medicine 04/22/19 documented as of this encounter
--- OUTSIDE RECORDS SUMMARY | 2024-07-28 02:10 | XMS_ITS | Encounter Summary ---
Author Organization [facility] Address [facility] [place] [address] Care Team Providers Care Golf Course Patroller Name Role Phone Kathy Wright MARÍA Primary Care Provider Reason for Visit * Reason Comments Chemotherapy [...] OR SOLUTION, 10MG, INJECTION Toño West MD [facility] [place] [address] [facility] [address] [place] [address] Referral ID Status Reason Start Date Expiration Date Visits Re quested Visits Authorized [id number] Closed 11/09/2019 11/08/2020 12 12 Encounter Details Date Type Department Care Team (Late st Contact Info) Description 11/16/2019 9:00 AM EST Infusion Hematology Oncology at [address] [address] Non-small cell lung cancer, right [...] by Leslie Giraldo RN & Rj Glez [facility]. Prior to administration of Cisplatin, Marleni voided 200 cc of urine. REACTIONS (DESCRIPTION, TIME, INTERVENTION AND EFFECTIVENESS) none ASSESSMENT Marleni was awake, alert and tolerated treatment well. Post Cisplatin infusion Marleni voided 200 cc of urine. PLAN Return to clinic per routine. Pt. chemo teaching instructions included: During clinic hours (8am-5pm Friday-Friday): pt. can call [phone] with questions or concerns. After clinic hours (5pm-8am Friday-Friday and weekends) pt can call [phone] and ask for the crotch piece baster/oncologist conference interpreter. Marleni Arreola verbalized understanding of potential chemotherapy [...] 2 minutes is a recommendation from the ruby on rails web developer. Administer prior to chemotherapy., Routine Given 11/16/2019 [...] hr documented in this encounter Care Teams Golf Course Patroller Relationship Specialty Start Date End Date Kathy Wright APRN PCP - General Family Medicine 04/22/19 documented as of this encounter
--- OUTSIDE RECORDS SUMMARY | 2024-07-28 02:10 | XMS_ITS | Encounter Summary ---
Author Organization [place] [address] Care Team Providers Care Model And Mold Maker Plaster Name Role Phone Kathy Wright APRN Primary Care Provider [phone] Encounter Details Date Type Department Care Team (Latest Contact Info) Description 10/19/2019 Multidisciplinary Ca re [place] [address] Juan Ny MD [facility] [place] [address] Social History Tobacco Use Types Packs/Day Years [...] on filedocumented in this encounter Care Teams Model And Mold Maker Plaster Relationship Specialty Start Date End Date Kathy Wright, INTRANET SUPPORT PCP - General Family Medicine 04/22/19 documented as of this encounter
--- OUTSIDE RECORDS SUMMARY | 2024-07-28 02:10 | XMS_ITS | Encounter Summary ---
Author Organization [facility] [place] [address] Care Team Providers Care Sheet Rock Finisher Name Role Phone GerardoKathy nicolas Butch DANIEL Primary Care Provider [phone] Reason for Visit * Reason Onset Date Comments Appointment 10/22/2019 Encounter Details Date Type Department Care Team (Late st Contact Info) Description 10/22/2019 Telephone Radiation Oncology at [address] [phone] Lay Hauser Appointment Social History Tobacco Use [...] a NPW with NK on 10/25 in [place] or 11/15 with NK in [facility]. documented in this encounter Plan of Treatment Not on file documented as of this encounter Visit Diagnoses Not on filedocumented in this encounter Care Teams Sheet Rock Finisher Relationship Specialty Start Date End Date Kathy Wright APRN PCP - General Family Medicine 04/22/19 documented as of this encounter
--- OUTSIDE RECORDS SUMMARY | 2024-07-28 02:10 | XMS_ITS | Encounter Summary ---
Author Organization [facility] Address [facility] [place] [address] Care Team Providers Care Visual And Stock Associate Name Role Phone Kathy Wright MARÍA Primary Care Provider [phone] Reason for Referral * Consultation (Urgent) - Closed Specialty Diagnoses / Procedures Referred By Contac t Referred To Contact Radiation Oncology Diagnoses Nodule of lower lobe of right lung Primary adenocarcinoma of lower lobe of right lung Juan Ny MD [facility] [place] [address] Doyle Delvalle MD [address] [place] [address] [place] [address] Referral ID Status Reason Start Date Expiration Date V isits Requested Visits Authorized [id number] Closed Consult, Test & Treat 10/21/2019 10/20/2020 1 1 * Consultation (Urgent) - Closed Specialty Diagnoses / Procedures Referred By Contac t Referred To Contact Hematology and Oncology Diagnoses Nodule of lower lobe of right lung Primary adenocarcinoma of lower lobe of right lung Juan Ny MD [facility] [place] [address] [facility] Hem Onc [address] [place] [address] Referral ID Status Reason Start Date Expiration Date V isits Requested Visits Authorized [id number] Closed Consult, Test & Treat 10/21/2019 10/20/2020 1 1 Reason for Visit * Reason Comments Follow-up Encounter Details Date Type Department Care Team (Latest Contact Info) Description 10/21/2019 11:45 AM EST Office Visit [place] [address] Juan Ny MD [facility] DR [place] [address] Nodule of lower lobe of right lung; [...] Attending Outpatient Consultation Note Juan Ny MD [place] [address] Today I saw Ms. Marleni Arreola in [...] lung documented in this encounter Care Teams Visual And Stock Associate Relationship Specialty Start Date End Date Kathy Wright APRN PCP - General Family Medicine 04/22/19 documented as of this encounter
--- OUTSIDE RECORDS SUMMARY | 2024-07-28 02:10 | XMS_ITS | Encounter Summary ---
[place] [address] Care Team Providers Care Cashier Credit Name Role Phone Kathy Wright APRN Primary Care Provider [phone] Encounter Details Date Type Department Care Team (Late st Contact Info) Description 10/06/2019 [place] [phone] Kip Wood II Social History Tobacco Use [...] on filedocumented in this encounter Care Teams Cashier Credit Relationship Specialty Start Date End Date Kathy Wright APRN PCP - General Family Medicine 04/22/19 documented as of this encounter
--- OUTSIDE RECORDS SUMMARY | 2024-07-28 02:10 | XMS_ITS | Encounter Summary ---
Author Organization [facility] Address [facility] [place] [address] Care Team Providers Care Army Ranger Name Role Phone GerardoKathy nicolas Butch DANIEL Primary Care Provider [phone] Encounter Details Date Type Department Care Team (Late st Contact Info) Description 11/17/2019 Telephone Hematology/Oncology at [address] [phone] Radha Pearson, VENU Social History Tobacco Use [...] :?? Education provided: ?? Plan:? Reinforced to patient/care-summer child caregiver to call facility 23/06 with any new/worsening signs and symptoms orconcerns or questions.?? Phone number provided.?? Pt verbalized understanding and is in agreement with plan. ? documented in this encounter Plan of Treatment Not on file documented as of this encounter Visit Diagnoses Not on filedocumented in this encounter Care Teams Army Ranger Relationship Specialty Start Date End Date Kathy Wright APRN PCP - General Family Medicine 04/22/19 documented as of this encounter
--- OUTSIDE RECORDS SUMMARY | 2024-07-28 02:10 | XMS_ITS | Encounter Summary ---
Author Organization [facility] Address [facility] [place] [address] Care Team Providers Care Bottom Precipitator Operator Name Role Phone Kathy Wright Butch DANIEL Primary Care Provider [phone] Encounter Details Date Type Department Care Team (Latest Contact Info) Description 12/15/2019 12:40 PM EST - 12/15/2019 11:59 PM EST Hospital Encounter Hematology [place] [address] Non-small cell lung cancer, right Discharge Disposition: [...] mL/hr documented in this encounter Care Teams Bottom Precipitator Operator Relationship Specialty Start Date End Date Kathy Wright, PRESS ROOM SUPERVISOR PCP - General Family Medicine 04/22/19 documented as of this encounter
--- OUTSIDE RECORDS SUMMARY | 2024-07-28 02:10 | XMS_ITS | Encounter Summary ---
Author Organization [facility] [place] [address] Care Team Providers Care Sausage Inspector Name Role Phone Kathy Wright ROW BOSS HOEING Primary Care Provider [phone] Encounter Details Date Type Department Care Team (Late st Contact Info) Description 11/22/2019 Refill Hematology [place] [address] Radha Bynum RN Non-small cell lung cancer, [...] 11/22/2019 10:23 AM EST Message received from secretary of state: Patient calling to report constant cough like she had before biopsy, back and ribs starting to hurt, cough is productive but she is unable to get it up. Wondering if someone may call her in something to ?? [id number] - [facility], [place] - [address] [place] [address]? S/O: Call placed to Marleni to discuss. [...] tomorrow morning. She would like these drawn [facility]. She wishes to hold off on the mucinex for now as she is worried this will increase her blood pressure. She would like touse the tessalon pearls for now and would like this script sent to Ana Morrison in [place], [place]. Reviewed we would call her tomorrow once we received her lab results and she should call back should she have further questions, concerns or worsening symptoms. revenue collector to follow-up on CBC, CMP results tomorrow on 11/23 and call patient with results. Script for tessalon pearls pended to Adrienne Mendez APRN for review and signature. CBC, CMP orders placed. Clinical secretary of state to fax orders to [facility]. documented in this encounter Plan of Treatment Not on file documented as of this encounter Visit Diagnoses Diagnosis Non-small cell lung cancer, right documented in this encounter Care Teams Sausage Inspector Relationship Specialty Start Date End Date Kathy Wright APRN PCP - General Family Medicine 04/22/19 documented as of this encounter
--- OUTSIDE RECORDS SUMMARY | 2024-07-28 02:10 | XMS_ITS | Encounter Summary ---
Author Organization [facility] [place] [address] Care Team Providers Care Program Engineer Name Role Phone Kathy Wright APRN Primary Care Provider [phone] Encounter Details Date Type Department Care Team (Late st Contact Info) Description 12/15/2019 Orders Only Hematology [place] [address] Adrienne Mendez APRN [facility] HEMATOLOGY-[place] [address] Social History Tobacco Use Types Packs/Day Years [...] on filedocumented in this encounter Care Teams Program Engineer Relationship Specialty Start Date End Date Kathy Wright APRN PCP - General Family Medicine 04/22/19 documented as of this encounter
--- OUTSIDE RECORDS SUMMARY | 2024-07-28 02:10 | XMS_ITS | Encounter Summary ---
[place] [address] Care Team Providers Care Production Control Supervisor Name Role Phone Kathy Wright MARÍA Primary Care Provider Encounter Details Date Type Department Care Team (Late st Contact Info) Description 11/09/2019 Notes Only Hematology [place] [address] Maame Can, RN Social History Tobacco Use [...] RESEARCH NURSE INFORMED CONSENT NOTE ?? Farzana [id number],Adjuvant Lung Cancer Enrichment Marker Identification and Sequencing Trial ?? Date:??11/09/19 ?? Objective of visit: Meet with the patient??in clinic to perform the On- Study:Epidemiology questionnaire. I also answer questions or concerns about study plan and evaluated interest in study participation. ?? Information Provided: Dr. Wets obtained consent from patient. Marleni??was advised that [...] done. ?? Plan: 1. ??Pt enrolled on study??[id number]?? 2.?Tissue samples will be sent as per protocol?? 3. ??Lab kit will be obtained when patient returns to clinic on 11/15/19 in [facility]. ?? documented in this encounter Plan of Treatment Not on file documented as of this encounter Visit Diagnoses Not on filedocumented in this encounter Care Teams Production Control Supervisor Relationship Specialty Start Date End Date Kathy Wright, APPRISE COUNSELOR PCP - General Family Medicine 04/22/19 documented as of this encounter
--- OUTSIDE RECORDS SUMMARY | 2024-07-28 02:10 | XMS_ITS | Encounter Summary ---
[place] [address] Care Team Providers Care Collar Band Creaser Name Role Phone Kathy Wright APRN Primary Care Provider [phone] Encounter Details Date Type Department Care Team (Late st Contact Info) Description 10/06/2019 Notes [place] [address] Anna Owen, RN Social History Tobacco Use [...] on 10/05/19 Approved - Approval Number is [id number] effective immediately documented in this encounter Plan of Treatment Not on file documented as of this encounter Visit Diagnoses Not on filedocumented in this encounter Care Teams Collar Band Creaser Relationship Specialty Start Date End Date Kathy Wright APRN PCP - General Family Medicine 04/22/19 documented as of this encounter
--- OUTSIDE RECORDS SUMMARY | 2024-07-28 02:10 | XMS_ITS | Encounter Summary ---
Author Organization [facility] [place] [address] Care Team Providers Care Unified Communications Engineer Name Role Phone GerardoKathy nicolas Butch DANIEL Primary Care Provider [phone] Reason for Visit * Reason Onset Date Comments Medication Refill 11/25/2019 Encounter Details Date Type Department Care Team (Late st Contact Info) Description 11/25/2019 Refill [place] [address] Scarlett Castillo, RN Social History Tobacco Use [...] RN - 11/25/2019 8:30 AM EST Follow-up: scrub wheel operator to follow-up with CBC, CMP tomorrow from [facility]. ?? No results by the end of clinic day on 11/23. ?? scrub wheel operator to follow-up on lab results on 11/25. [...] 400 mg po daily. Prescriptions pended to HOOP FLARING MACHINE OPERATOR HELPER forreview, approval & signature. Advised to call [...] 11/23/2019 3:35 PM EST COMPREHENSIVE METABOLIC PANEL Routine 11/23/2019 3:35 PM EST documented in this encounter Results * (ABNORMAL) Comprehensive metabolic panel (non-fasting) (11/23/2019 3:35 PM EST) Glucose 129(A) 74 - 106 Blood Urea Nitrogen 14(Instructor Weaving al Lab) 7 - 18 Creatinine 1.27(EXTE RNAL/ABN) 0.55 - 1.02 Sodium 141(Exter nal Lab) 136 - 145 Potassium 3.5(Exter nal Lab) 3.5 - 5.1 Chloride 101(Exter nal Lab) 98 - 107 Carbon Dioxide 31(Instructor Weaving al Lab) 21 - 32 Calcium 8.8(Exter nal Lab) 8.5 - 10.1 Protein, Total 7.3(Exter nal Lab) 6.4 - 8.2 Albumin 3.7(Exter nal Lab) 3.4 - 5 Bilirubin, Total 0.2(Exter nal Lab) 0.2 - 1 Alkaline Phosphatase 123(Exter nal Lab) 46 - 116 Aspartate Aminotransferase 24(Instructor Weaving al [facility]) 15 - 37 Alanine Aminotransferase 59(Instructor Weaving al Lab) 14 - 59 Magnesium 1.3(EXTER NAL/ABN) 1.8 - 2.4 mg/dL Lactate Dehydrogenase 227(Exter nal Lab) 82 - 234 Blood specimen (specimen) 11/23/2019 3:35 PM EST Historical Provider CHEMISTRY ORDERAB LES * (ABNORMAL) CBC (with Diff) (11/23/2019 3:35 PM EST) Pathologist [facility] White Blood Cell 3.67(EXTER NAL/ABN) 4.4 - 10.8 Hemoglobin 12.2(Exter nal Lab) 12.0 - 15.5 Hematocrit 36.1(Exter nal Lab) 36.0 - 46.0 Platelet 227(Instructor Weaving al Lab) 130 - 400 ANC 1.77(Exter nal Lab) 1.2 - 6.7 Blood specimen (specimen) 11/23/2019 3:35 PM EST Historical Provider HEMATOLOGY ORDERA BLES documented in this encounter Visit Diagnoses Not on filedocumented in this encounter Care Teams Unified Communications Engineer Relationship Specialty Start Date End Date Kathy Wright APRN PCP - General Family Medicine 04/22/19 documented as of this encounter
--- OUTSIDE RECORDS SUMMARY | 2024-07-28 02:10 | XMS_ITS | Encounter Summary ---
Author Organization [facility] Address [facility] [place] [address] Care Team Providers Care Industrial Court Magistrate Name Role Phone GerardoKathy nicolas Butch DANIEL Primary Care Provider [phone] Encounter Details Date Type Department Care Team (Late Contact Info) Description 12/07/2019 Notes Only Hematology/Oncology at [address] [phone] Holly Schaeffer MSW OFFICE OF CARE MANAGEMENT [...] a wige andinformed her Magy Dunn RN, Mobile Sales Consultant oversees our wig bank and she is a resource for that. Pt to consider this. Pt reports her rides through [facility] are working well and she continues to schedule her ownrides. Offered support. Reminded pt of STRUCTURAL SHOP HELPER availability and will follow for support and resources. documented in this encounter Plan of Treatment Not on file documented as of this encounter Visit Diagnoses Not on filedocumented in this encounter Care Teams Industrial Court Magistrate Relationship Specialty Start Date End Date Kathy Wright APRN PCP - General Family Medicine 04/22/19 documented as of this encounter
--- OUTSIDE RECORDS SUMMARY | 2024-07-28 02:10 | XMS_ITS | Encounter Summary ---
Author Organization [facility] [place] [address] Care Team Providers Care Regulator Mechanic Name Role Phone Kathy Wright APRN Primary Care Provider [phone] Encounter Details Date Type Department Care Team (Late st Contact Info) Description 12/14/2019 Orders Only Hematology [place] [address] Toño West MD [facility] [place] [address] Non-small cell lung cancer, right Social History [...] right documented in this encounter Care Teams Regulator Mechanic Relationship Specialty Start Date End Date Kathy Wright APRN PCP - General Family Medicine 04/22/19 documented as of this encounter
--- OUTSIDE RECORDS SUMMARY | 2024-07-28 02:10 | XMS_ITS | Encounter Summary ---
[place] [address] Care Team Providers Care Enterprise Analyst Name Role Phone Kathy Wright MARÍA Primary Care Provider [phone] Reason for Visit * Reason Onset Date Comments Medication Refill 10/26/2019 Encounter Details Date Type Department Care Team (Late st Contact Info) Description 10/26/2019 Refill [place] [phone] Anna Owen, RN Social History Tobacco Use [...] send the script to Ana Morrison in [facility]. She knows to call with any questions or concerns. documented in this encounter Plan of Treatment Not on file documented as of this encounter Visit Diagnoses Not on filedocumented in this encounter Care Teams Enterprise Analyst Relationship Specialty Start Date End Date Kathy Wright APRN PCP - General Family Medicine 04/22/19 documented as of this encounter
--- OUTSIDE RECORDS SUMMARY | 2024-07-28 02:10 | XMS_ITS | Encounter Summary ---
[place] [address] Care Team Providers Care Attic Blower Name Role Phone Kathy Wright MARÍA Primary Care Provider [phone] Reason for Visit * Reason Onset Date Comments Other 10/12/2019 post op call Encounter Details Date Type Department Care Team (Late st Contact Info) Description 10/12/2019 Telephone Thoracic [place] [phone] Anna Owen, RN Other (post op call) [...] on filedocumented in this encounter Care Teams Attic Blower Relationship Specialty Start Date End Date Kathy Wright APRN PCP - General Family Medicine 04/22/19 documented as of this encounter
--- OUTSIDE RECORDS SUMMARY | 2024-07-28 02:10 | XMS_ITS | Encounter Summary ---
Author Organization [facility] [place] [address] Care Team Providers Care Licensed Social Worker Name Role Phone Gerardomaria isabel Kathy Rae APRN Primary Care Provider [phone] Reason for Visit * Reason Onset Date Comments Other 11/17/2019 transportation Encounter Details Date Type Department Care Team (Late st Contact Info) Description 11/17/2019 Telephone Hematology/Oncology at [address] [phone] Holly Schaeffer MSW OFFICE OF CARE MANAGEMENT [...] and location. RCT thought pt going to [facility] of [facility]. Clarified issue and verified times of pt's appointment. TC pt back to update her. documented in this encounter Plan of Treatment Not on file documented as of this encounter Visit Diagnoses Not on filedocumented in this encounter Care Teams Licensed Social Worker Relationship Specialty Start Date End Date Kathy Wright, MARÍA PCP - General Family Medicine 04/22/19 documented as of this encounter
--- OUTSIDE RECORDS SUMMARY | 2024-07-28 02:10 | XMS_ITS | Encounter Summary ---
Author Organization [facility] [place] [address] Care Team Providers Care Merchandise Distributor Name Role Phone Kathy Wright APRN Primary Care Provider [phone] Encounter Details Date Type Department Care Team (Late st Contact Info) Description 11/11/2019 Orders Only Hematology [place] [address] Adrienne Mendez APRN [facility] [place]EMATOLOGY[place] [address] Non-small cell lung cancer, right Social History [...] right documented in this encounter Care Teams Merchandise Distributor Relationship Specialty Start Date End Date Kathy Wright APRN PCP - General Family Medicine 04/22/19 documented as of this encounter
--- OUTSIDE RECORDS SUMMARY | 2024-07-28 02:10 | XMS_ITS | Encounter Summary ---
Author Organization [facility] [place] [address] Care Team Providers Care Sales Advisor Name Role Phone GerardoKathy nicolas Butch DANIEL Primary Care Provider [phone] Reason for Visit * Reason Onset Date Comments Other 10/19/2019 post op Encounter Details Date Type Department Care Team (Late st Contact Info) Description 10/19/2019 Telephone [place] [phone] Anna Owen, RN Other (post op ) [...] on filedocumented in this encounter Care Teams Sales Advisor Relationship Specialty Start Date End Date Kathy Wright APRN PCP - General Family Medicine 04/22/19 documented as of this encounter
--- OUTSIDE RECORDS SUMMARY | 2024-07-28 02:10 | XMS_ITS | Encounter Summary ---
Author Organization [facility] [place] [address] Care Team Providers Care Industrial Gas Service Helper Name Role Phone GerardoKathy nciolas Butch DANIEL Primary Care Provider Reason for Visit * Reason Onset Date Comments Appointment 11/15/2019 Encounter Details Date Type Department Care Team (Late st Contact Info) Description 11/15/2019 Telephone [place] [address] Mehran Vaughn Appointment Social History Tobacco Use [...] filedocumented in this encounter Care Teams Industrial Gas Service Helper Relationship Specialty Start Date End Date Kathy Wright APRN PCP - General Family Medicine 04/22/19 documented as of this encounter
--- OUTSIDE RECORDS SUMMARY | 2024-07-28 02:10 | XMS_ITS | Encounter Summary ---
[place] [address] Care Team Providers Care Yard Hostler Name Role Phone Kathy Wright APRN Primary Care Provider [phone] Encounter Details Date Type Department Care Team (Late st Contact Info) Description 10/26/2019 Orders Only [place] [address] Anna Owen, RN Social History Tobacco Use [...] on filedocumented in this encounter Care Teams Yard Hostler Relationship Specialty Start Date End Date Kathy Wright APRN PCP - General Family Medicine 04/22/19 documented as of this encounter
--- OUTSIDE RECORDS SUMMARY | 2024-07-28 02:10 | XMS_ITS | Encounter Summary ---
Author Organization Formerly [facility], [facility] Address [facility] [place] [address] Care Team Providers Care Stave Saw Operator Name Role Phone Kathy Wright CODING COORDINATOR Primary Care Provider [phone] Reason for Visit * Auth/Cert Specialty Diagnoses [...] Expiration Date Visits Re quested Visits Authorized [id number] 1 1 Encounter Details Date Type Department Care Team (Latest Contact Info) Description 10/06/2019 10:30 AM EST - 10/08/2019 2:40 PM [facility] Hospital Encounter [address] [place] [address] Juan Tran MD [facility] [place] [address] Lung nodule Discharge Disposition: Home Social History [...] Primary * Pau Guerrero PA - Physician Chuck Tender * Tan Quigley MD - Resident Procedure: [...] Presentation: Today,??09/16/2019,??I??saw??Ms.??Arreola??in the Thoracic Surgery Clinic at [facility]??in consultation for a Right??lower lobe??lung nodule at your request.?Her??history was obtained from the patient. ??I have also reviewed her??medical records and imaging prior to today's visit. ??As you know, ??Janel rust??is a 59 y.o.??female that in??May??2019 fell backward while opening a drawer, and she was alsohaving issues with abdominal pain around that time. A CT Abd/Pelvis??was performed 04/18/19??which revealed??colitis, acute burst fracture of L1, as well as 16 mm focal opacity of RLL. A dedicated CT Chest was performed??07/02/18??which demonstrated stable nojz-zs-akjs nodules in the RLL, largest measuring 9 [...] up by her PCP and neurology in [facility]), reflux symptoms and occasional nausea.??She??denies fevers, night sweats, or chest pain on exertion. ??She??has lost no weight recently.?She??is able to walk on the flat with the assistanceof a cane, and up a flight??of stairs??however this takes a while.??Her??ECOG performance status??is 1 - Symptomatic but completely ambulatory.?? Hospital Course: Marleni Arreola was admitted to [facility] on 10/06/2019 via the Same Day Program. [...] a nurse in the Thoracic Clinic at [phone]. After hours or on weekends or holidays please call: [phone] and ask to speak to the Thoracic [...] the Thoracic Clinic or the Thoracic Surgeon transmissions systems operator after hours. Please take over the counter [...] Expires XR Chest PA & Lateral (Generic) [[id number] Custom] 10/22/2019 (Approximate) 04/22/2020 Process Instructions: Scheduling Instructions: Questions: Where will study be performed?: [facility] Radiology Portable exam?: Reason for exam and clinical history: s/p basilar RLL segmenectomy Other pertinent information: Stat read required?: Date of injury if applicable: Requested Time: Provider Contact Information: Primary Care Provider: Kathy Wright, CODING COORDINATOR [phone] Discharge References/Attachments: Discharge References/Attachments None For questions regarding this document or issues relating to this hospitalization on the Thoracic Surgery Service, please contact Dr. Tran's office at . Signed: JOSE Salvador 10/08/2019 CC: PCP: Ktahy Wright APRN Referring: No referring provider defined [...] a nurse in the Thoracic Clinic at [phone]. After hours or on weekends or holidays please call: [phone] and ask to speak to the Thoracic [...] the Thoracic Clinic or the Thoracic Surgeon transmissions systems operator after hours. Please take over the counter [...] LEA on receiving unit; patient awaiting transfer; RED HAT ENGINEERVENU ortega. * Tan Quigley MD - 10/07/2019 [...] to water seal, nasal airway placed by RED HAT ENGINEER for airway obstruction, pt in no apparent [...] Chest was performed 07/02/18 which demonstrated stable gstz-qm-gtiu nodules in the RLL, largest measuring 9 [...] Quigley MD 10/06/2019 Thoracic Surgery Service Pager [phone] Associated attestation - Juan Tran MD - [...] Tran MD - 10/06/2019 6:54 PM EST [facility] Operative Note Patient Name: Marleni Arreola : [id number] MR#: [id number] Case Date: 10/06/2019 Surgeon: Surgeon(s) and Role: * Juan Tran MD - Primary * Pau Guerrero PA - Physician Chuck Tender * Tan Quigley MD - Resident Preoperative [...] Info Order Time SPECIMEN TO PATHOLOGY OR11 [id number] right lower lobe lung nodule Right lower lobe wedge excision YES, Please perform frozen section 10/06/2019 3:49 PM Number of tissue samples (in container) 1 Time specimen removed from patient: 3:48 PM SPECIMEN TO PATHOLOGY OR11 85989 right lower lobe lung nodule Right lower lobe wedge posterior excision YES, Please perform frozen section 10/06/2019 4:06 PM Number of tissue samples (in container) 1 Time specimen removed from patient: 4:06 PM PATHOLOGY ORDER UPDATE 10/06/2019 4:13 PM Additional information: Additional Info Enter requested changes: stitch chen nodule eD-H Order Id number [id number] SPECIMEN TO PATHOLOGY [id number] right lower lobe lung nodule 12R lymph node in fissure excision 10/06/2019 4:15 PM Number of tissue samples (in container) 1 Time specimen removed from patient: 4:15 PM SPECIMEN TO PATHOLOGY right lower lobe lung nodule 12R lymph node in fissure #2 excision 10/06/2019 4:19 PM Number of tissue samples (in container) 1 Time specimen removed from patient: 4:19 PM SPECIMEN TO PATHOLOGY 53933 right lower lobe lung nodule 8R Lymph Node excision 10/06/2019 4:25 PM Number of tissue samples (in container) 1 Time specimen removed from patient: 4:25 PM SPECIMEN TO PATHOLOGY 29193 right lower lobe lung nodule level 7 excision 10/06/2019 4:27 PM Number of tissue samples (in container) 1 Time specimen removed from patient: 4:27 PM PATHOLOGY ORDER UPDATE 10/06/2019 4:31 PM Additional information: Additional Info Enter requested changes: level 7 lymph node packet eD-H Order Id number [id number] SPECIMEN TO PATHOLOGY [id number] right lower lobe lung nodule 12R lymph node posterior excision 10/06/2019 4:54 PM Number of tissue samples (in container) 1 Time specimen removed from patient: 4:54 PM SPECIMEN TO PATHOLOGY OR 11 26557 right lower lobe lung nodule 10R lymph node packet excision 10/06/2019 5:26 PM Time specimen removed from patient: 5:25 PM Number of tissue samples (in container) 1 SPECIMEN TO PATHOLOGY OR 11 76732 right lower lobe lung nodule 4R lymph node packet excision No 10/06/2019 5:29 PM Time specimen removed from patient: 5:29 PM Number of tissue samples (in container) 1 Biospecimen to store? No SPECIMEN TO PATHOLOGY OR 11 17224 right lower lobe lung nodule completion RLL [...] patient removed from the field. A 28 [place]yan chest tube was placed through the initial [...] Operative Note Patient Name: Marleni Arreola : [id number] MR#: [id number] Case Date: 10/06/2019 Surgeon: Surgeon(s) and Role: * Juan Tran MD - Primary * Pau Guerrero PA - Physician Chuck Tender * Tan Quigley MD - Resident Preoperative [...] Info Order Time SPECIMEN TO PATHOLOGY OR11 [id number] right lower lobe lung nodule Right lower lobe wedge excision YES, Please perform frozen section 10/06/2019 3:49 PM Number of tissue samples (in container) 1 Time specimen removed from patient: 3:48 PM SPECIMEN TO PATHOLOGY OR11 99013 right lower lobe lung nodule Right lower lobe wedge posterior excision YES, Please perform frozen section 10/06/2019 4:06 PM Number of tissue samples (in container) 1 Time specimen removed from patient: 4:06 PM PATHOLOGY ORDER UPDATE 10/06/2019 4:13 PM Additional information: Additional Info Enter requested changes: stitch chen nodule eD-H Order Id number [id number] SPECIMEN TO PATHOLOGY 39778 right lower lobe lung nodule 12R lymph node in fissure excision 10/06/2019 4:15 PM Number of tissue samples (in container) 1 Time specimen removed from patient: 4:15 PM SPECIMEN TO PATHOLOGY right lower lobe lung nodule 12R lymph node in fissure #2 excision 10/06/2019 4:19 PM Number of tissue samples (in container) 1 Time specimen removed from patient: 4:19 PM SPECIMEN TO PATHOLOGY 00334 right lower lobe lung nodule 8R Lymph Node excision 10/06/2019 4:25 PM Number of tissue samples (in container) 1 Time specimen removed from patient: 4:25 PM SPECIMEN TO PATHOLOGY 68516 right lower lobe lung nodule level 7 excision 10/06/2019 4:27 PM Number of tissue samples (in container) 1 Time specimen removed from patient: 4:27 PM PATHOLOGY ORDER UPDATE 10/06/2019 4:31 PM Additional information: Additional Info Enter requested changes: level 7 lymph node packet eD-H Order Id number [id number] SPECIMEN TO PATHOLOGY 70752 right lower lobe lung nodule 12R lymph node posterior excision 10/06/2019 4:54 PM Number of tissue samples (in container) 1 Time specimen removed from patient: 4:54 PM SPECIMEN TO PATHOLOGY OR 11 84546 right lower lobe lung nodule 10R lymph node packet excision 10/06/2019 5:26 PM Time specimen removed from patient: 5:25 PM Number of tissue samples (in container) 1 SPECIMEN TO PATHOLOGY OR 11 66093 right lower lobe lung nodule 4R lymph node packet excision No 10/06/2019 5:29 PM Time specimen removed from patient: 5:29 PM Number of tissue samples (in container) 1 Biospecimen to store? No SPECIMEN TO PATHOLOGY OR 11 10210 right lower lobe lung nodule completion RLL [...] 9 7:26 AM EST BASIC METABOLIC PANEL STAT 10/07/2019 7:26 AM EST XR CHEST [...] STAT 10/06/2019 4:07 PM EST BLOOD GAS ARTERIAL POC Routine 9 3:51 PM EST SPECIMEN TO PATHOLOGY STAT 10/06/2019 3:49 PM EST SOLID TUMOR NGS PANEL Routine 10/06/2019 3:48 PM EST SURGICAL PATHOLOGY REPORT Routine 10/06/2019 3:48 PM EST Thoracoscopy Surg Lobectomy (62135) 10/06/2019 2:49 PM EST Lung nodule Thoracoscopy With Mediastinal And Regional Lymphadenectomy 10/06/2019 2:49 PM EST Lung nodule Injection Anes Agent &/ Steroid Intercostal Nerve Ea Addl Level (37359) 10/06/2019 2:49 PM EST Lung nodule MODIFIER ROBOT,DAVINCI XI 10/06/2019 2:49 PM EST Lung nodule Bronchoscopy, Diagnostic (62506) 10/06/2019 2:49 PM EST Lung nodule Thoracoscopy [...] below. ? Electronically signed by: Savanna Callejas [facility] ([phone]), at 10/21/2019 10:55 AM Narrative 10/21/2019 10:55 [...] the number below. Electronically signed by: Savanna aCllejas [facility]([phone]), at 10/21/2019 10:55 AM Juan Tran MD [...] below. ? Electronically signed by: Jyotsna Bullock [facility] ([phone]), at 10/07/2019 4:39 PM Narrative 10/07/2019 4:39 [...] number below. Electronically signed by: Jyotsna Bullock [facility]([phone]), at 10/07/2019 4:39 PM Juan Tran MD [...] below. ? Electronically signed by: Jyotsna Bullock [facility] ([phone]), at 10/07/2019 2:36 PM Narrative 10/07/2019 2:36 [...] number below. Electronically signed by: Jyotsna Bullock [facility]([phone]), at 10/07/2019 2:36 PM Juan Tran MD IMG DX ORDERABLES * (ABNORMAL) Differential, Automated (10/07/2019 7:26 AM EST) Neutrophil % 85.1 % [facility] Neutrophil Absolute 10.38(H) 1.70 - 6.10 x10(3)/ L [facility] Lymph % 10.2 % [facility] Lymphocytes Abs 1.2 0.9 - 3.2 x10(3)/[facility] Monocyte % 4.3 % [facility] Monocyte Abs 0.5 0.3 - 0.9 x10(3)/[facility] Eos % 0.0 % [facility] Eosinophils Abs 0.0 0.0 - 0.4 x10(3)/[facility] Basophil % 0.2 % [facility] Baso Absolute 0.0 0.0 - 0.1 x10(3)/[facility] Immature Gran % 0.20 % [facility] Comment: Immature granulocytes(IG's)percentage and absolute count will include metamyelocytes, myelocytes, and promyelocytes. Blood smears from CBCs yielding IG's will be scanned manually for concordance. If this scan disagrees with the automated IG or if promyelocytes are noted, a manual differential will be performed. Immature Gran Absolute 0.03 0.00 - 0.04 x10(3)/ L [facility] Blood specimen (specimen) 10/07/2019 7:26 AM EST 10/07/2019 7:31 AM EST Narrative Resulting Agency Comment Spec In Lab Robert You MD HEMATOLOGY ORDERABLE S [facility] [place] [address] * (ABNORMAL) Hemogram (10/07/2019 7:26 AM EST) Pathologist [facility] White Blood Cell 12.2(H) 4.0 - 9.5 x10(3)/ L [facility] Red Blood Cell 3.47(L) 4.00 - 5.21 x10(6)/ L [facility] Hemoglobin 10.5(L) 11.7 - 15.5 gm/dL [facility] Hematocrit 31.3(L) 35.7 - 45.8 % [facility] Mean Cell Volume 90.2 82.6 - 94.4 fL [facility] Mean Cell Hemoglobin 30.3 27.1 - 32.0 pg [facility] Mean Cell Hemoglobin Concentration 33.5 31.7 - 35.0 gm/dL [facility] Platelet 187 145 - 357 x10(3)/[facility] RDW Standard Deviation 42.7 37.0 - 46.0 [facility] RDW coefficient of variation 13.0 11.5 - 14.1 % [facility] Mean Platelet Volume 10.3 7.6 - 12.9 fL [facility] NRBC% auto 0.0 % [facility] NRBC Absolute 0.000 0.000 - 0.000 x10(3)/[facility] Blood specimen (specimen) 10/07/2019 7:26 AM EST 10/07/2019 7:31 AM EST Narrative Resulting Agency Comment Spec In Lab Robert You MD HEMATOLOGY ORDERABLE S [facility] [place] [address] * (ABNORMAL) Basic Metabolic Panel (non-fasting) (10/07/2019 7:26 AM EST) [facility] Glucose 145 65 - 199 mg/dL [facility] Comment:Diabetes: >=200 mg/d L plus symptoms Blood Urea Nitrogen 18 8 - 18 mg/dL [facility] Creatinine 1.08 0.70 - 1.20 mg/dL [facility] Sodium 130(L) 135 - 145 mmol/L [facility] Potassium 4.0 3.5 - 5.0 mmol/L [facility] Comment: Please note: ??Patients with WBC >100,000 may have falsely elevated Potassium levels. ??For accurate Potassium quantification in these patients send serum separator tube (gold top) for subsequent determinations. ??Contact the Clinical Chemistry Laboratory if there are any questions. Chloride 94(L) 98 - 107 mmol/L [facility] Carbon Dioxide 21(L) 22 - 31 mmol/L [facility] Anion Gap 15 5 - 15 mmol/L [facility] Calcium 8.2(L) 8.5 - 10.5 mg/dL [facility] Est Glomerular Filtration Rate 56(L) >=60 mL/min/1. 73 m?? [facility] Comment: The eGFR was calculated using the CKD-EPI equation. As with all creatinine based estimates of kidney function, eGFR values calculated with the CKD-EPI equation are not accurate in patients with acute kidney failure, extremes of body mass or the acutely ill. http://[employer]/[facility] eGFR 65 >=60 mL/min/1. 73 m?? [facility] Comment: The eGFR was calculated using the CKD-EPI equation. As with all creatinine based estimates of kidney function, eGFR values calculated with the CKD-EPI equation are not accurate in patients with acute kidney failure, extremes of body mass or the acutely ill. http://[employer]/[facility] Blood specimen (specimen) 10/07/2019 7:26 AM EST 10/07/2019 7:31 AM EST Narrative Resulting Agency Comment Spec In Lab Juan Tran MD CHEMISTRY ORDERABLE S [facility] [place] [address] * XR Chest PA & Lateral (Generic) [...] below. ? Electronically signed by: Tracee Leavitt [facility] ([phone]), at 10/07/2019 4:23 AM Narrative 10/07/2019 4:23 [...] PM EST 10/06/2019 6:00 PM EST Narrative [facility] - 10/06/2019 6:00 PM EST Specimen requisition ordered. ??Separate Pathology report to follow Resulting Agency Comment Spec In Lab Juan Tran MD PATHOLOGY/CYTOLOGY ORDERABLES Performing Organization Address City/[facility]/[place] [address] * Specimen to Pathology (10/06/2019 5:29 PM EST) AP Specimen 10/06/2019 5:29 PM EST 10/06/2019 6:00 PM EST Narrative [facility] - 10/06/2019 6:00 PM EST Specimen requisition ordered. ??Separate Pathology report to follow Resulting Agency Comment Spec In Lab Juan Tran MD PATHOLOGY/CYTOLOGY ORDERABLES Performing Organization Address City/[facility]/[place] [address] * Specimen to Pathology (10/06/2019 5:26 PM EST) AP Specimen 10/06/2019 5:26 PM EST 10/06/2019 6:00 PM EST Narrative [facility] - 10/06/2019 6:00 PM EST Specimen requisition ordered. ??Separate Pathology report to follow Resulting Agency Comment Spec In Lab Juan Tran MD PATHOLOGY/CYTOLOGY ORDERABLES Performing Organization Address City/[facility]/ZIP Co de Phone Number [facility] [place] [address] * Specimen to Pathology (10/06/2019 4:54 PM EST) AP Specimen 10/06/2019 4:54 PM EST 10/06/2019 6:00 PM EST Narrative [facility] - 10/06/2019 6:00 PM EST Specimen requisition ordered. ??Separate Pathology report to follow Resulting Agency Comment Spec In Lab Juan Tran MD PATHOLOGY/CYTOLOGY ORDERABLES Performing Organization Address City/[facility]/ZIP Co de Phone Number [facility] [place] [address] * Specimen to Pathology (10/06/2019 4:27 PM EST) AP Specimen 10/06/2019 4:27 PM EST 10/06/2019 6:00 PM EST Narrative [facility] - 10/06/2019 6:00 PM EST Specimen requisition ordered. ??Separate Pathology report to follow Resulting Agency Comment Spec In Lab Juan Tran MD PATHOLOGY/CYTOLOGY ORDERABLES Performing Organization Address City/[facility]/[place] [address] * Specimen to Pathology (10/06/2019 4:25 PM EST) AP Specimen 10/06/2019 4:25 PM EST 10/06/2019 6:00 PM EST Narrative [facility] - 10/06/2019 6:00 PM EST Specimen requisition ordered. ??Separate Pathology report to follow Resulting Agency Comment Spec In Lab Juan Tran MD PATHOLOGY/CYTOLOGY ORDERABLES Performing Organization Address [facility] Co de Phone Number [facility] [place] [address] * Specimen to Pathology (10/06/2019 4:20 PM EST) AP Specimen 10/06/2019 4:20 PM EST 10/06/2019 6:00 PM EST Narrative [facility] - 10/06/2019 6:00 PM EST Specimen requisition ordered. ??Separate Pathology report to follow Resulting Agency Comment Spec In Lab Juan Tran MD PATHOLOGY/CYTOLOGY ORDERABLES Performing Organization Address City/[facility]/[place] [address] * Specimen to Pathology (10/06/2019 4:15 PM EST) AP Specimen 10/06/2019 4:15 PM EST 10/06/2019 6:00 PM EST Narrative [facility] - 10/06/2019 6:00 PM EST Specimen requisition ordered. ??Separate Pathology report to follow Resulting Agency Comment Spec In Lab Juan Tran MD PATHOLOGY/CYTOLOGY ORDERABLES Performing Organization Address [facility] [place] [address] * Specimen to Pathology (10/06/2019 4:07 PM EST) AP Specimen 10/06/2019 4:07 PM EST 10/06/2019 4:07 PM EST Narrative [facility] - 10/06/2019 4:07 PM EST Specimen requisition ordered. ??Separate Pathology report to follow Authorizing Provider Result Amadou Tran MD PATHOLOGY/CYTOLOGY ORDERABLES Performing Organization Address [facility] Co de Phone Number [facility] [place] [address] * (ABNORMAL) BLOOD GAS 2 ARTERIAL (10/06/2019 3:51 PM EST) pH, Arterial 7.43 7.35 - 7.45 [facility] PCO2, Arterial 37 35 - 45 mmHg [facility] PO2, Arterial 64(L) 85 - 104 mmHg [facility] Bicarbonate, Arterial 23.8 20.0 - 26.0 mmol/L [facility] Base Excess, Arterial -0.5 -3.0 - 3.0 mmol/L [facility] Hgb Blood Gas 12.6 11.7 - 15.5 gm/dL [facility] Oxyhemoglobin, Arterial 92.8(L) 94.0 - 97.0 % [facility] Carboxyhemoglob in, Arterial 0.2 % [facility] Comment: Nonsmokers: 0.5-1.5% COHB Smokers: Variable, but usually less than 10% Toxic: 20-30% COHB Lethal: Greater than 60% COHB Methemoglobin, Arterial 0.3 <=1.5 % [facility] Na Whole Blood 136 135 - 145 mmol/L [facility] K Whole Blood 3.4(L) 3.5 - 5.0 mmol/L [facility] Comment: Please note: Patients with WBC >100,000 may have falsely elevated Potassium levels. Contact the Clinical Chemistry Laboratory if there are any questions. ICa Whole Blood 1.17 1.15 - 1.33 mmol/L [facility] Comment: Note: ??Total bilirubin higher than 20 mg/dL may lead to falsely low ionized calcium. CL Whole Blood 102 98 - 107 mmol/L [facility] Gluc Whole Bld 122 65 - 199 mg/dL [facility] Comment:Diabetes: >=200 mg/d L plus symptoms. Lactate WB 2.0 0.5 - 2.2 mmol/L [facility] FIO2 Art 77 % [facility] PF Ratio Art 83 [facility] Blood specimen (specimen) 10/06/2019 3:51 PM EST 10/06/2019 3:51 PM EST Juan Tran MD POINT OF CARE TEST ORDERABLES Performing Organization Address City/State/[facility] Co de Phone Number [facility] [place] [address] * Specimen to Pathology (10/06/2019 3:49 PM EST) AP Specimen 10/06/2019 3:49 PM EST 10/06/2019 3:49 PM EST Narrative [facility] - 10/06/2019 3:49 PM EST Specimen requisition ordered. ??Separate Pathology report to follow Juan Tran MD PATHOLOGY/CYTOLOGY ORDERABLES Performing Organization Address City/State/[facility] de Phone Number [facility] [place] [address] * Solid Tumor NGS Panel (10/06/2019 3:48 PM EST) Tissue specimen (specimen) 10/06/2019 3:48 PM EST 10/19/2019 1:05 PM EST Narrative Resulting Agency Comment Spec In Lab Juan Tran MD PATHOLOGY/CYTOLOGY ORDERABLES Performing Organization Address [facility] Co de Phone Number [facility] [place] [address] * Surgical Pathology Report (10/06/2019 3:48 PM EST) Final Diagnosis [id number] ? [facility]; A The signing pathologist has (i) examined [...] The assay was performed according to the hepatologist's instructions using Anti-PD-L1 (22C3, pharmDX) antibody. Electronically signed by: ??Israel Leiva MD Verified: ??10/21/2019 ?Pathologist Performed at: ??-[facility] Dept. of Pathology, [place], [place] ?Surgical Pathology DIAGNOSIS A - Right [...] Soto MD Verified: ??10/15/2019 ?Pathologist Performed at: ??-[facility] Dept. of Pathology, [place], [place] ADDITIONAL STUDIES Immunohistochemistry Studies: Formalin-fixed, paraffin-embedded [...] submitted for frozen section: The entire nodule. Medical Assistant Float sections in 3 cassettes as follows: ?A1: [...] following tissue is submitted for frozen section: Medical Assistant Float section of the mass. . SPECIMEN PROCESSING Medical Assistant Float sections in 4 cassettes as follows: ?B1: [...] lymph nodes, up to 1.2 cm. Sections/Processing: Medical Assistant Float sections in 1 cassettes as follows: ?E1: ??Two intact lymph nodes F - Labeled/Fixative: Level 7, fresh. Quantity/Size: Multiple, 2.0 x 1.0 x 0.6 cm. Tissue Description: Adipose tissue with two lymph nodes, up to 1.5 cm. Largest lymph node is partially fragmented Sections/Processing: Medical Assistant Float sections in 2 cassettes as follows: ?F1: [...] lymph nodes, up to 0.5 cm. Sections/Processing: Medical Assistant Float sections in 1 cassettes as follows: ?H1: ??Two intact lymph nodes I - Labeled/Fixative: 4R lymph node packet, fresh. Quantity/Size: Single, 3.0 x 2.0 x 1.2 cm. Tissue Description: Adipose tissue with three lymph nodes, up to 1.4 cm. Sections/Processing: Medical Assistant Float sections in 3 cassettes as follows: ?I1: [...] superior margin. Parenchyma: Spongy, congested red-brown. Sections/Processing: Medical Assistant Float sections in 3 cassettes as follows: ?J1: [...] Connors DO Verified: ??10/06/2019 ?Pathologist Performed at: ??-[facility] Dept. of Pathology, [place], [place] This intraoperative consultation should be interpreted as a preliminary diagnosis pending review of the entire specimen and special studies, if any. 10/21/2019 1:34 PM EST [facility] LUNG STRUCTURE / Unknown 10/06/2019 3:48 PM EST 10/06/2019 3:48 PM EST Frozen Specimen 10/06/2019 3 :48 PM EST 10/06/2019 3:48 PM EST LYMPH NODE SPECIMEN / Unknown 10/06/2019 3:48 PM EST 10/06/2019 3:48 PM EST LYMPH NODE SPECIMEN / Unknown 10/06/2019 3:48 PM EST 10/06/2019 3:48 PM EST LYMPH NODE SPECIMEN / Unknown 10/06/2019 3:48 PM EST 10/06/2019 3:48 PM EST LYMPH NODE SPECIMEN / Unknown 10/06/2019 3:48 PM EST 10/06/2019 3:48 PM EST LYMPH NODE SPECIMEN / Unknown 10/06/2019 3:48 PM EST 10/06/2019 3:48 PM EST LYMPH NODE SPECIMEN / Unknown 10/06/2019 3:48 PM EST 10/06/2019 3:48 PM EST LYMPH NODE SPECIMEN / Unknown 10/06/2019 3:48 PM EST 10/06/2019 3:48 PM EST LUNG STRUCTURE / Unknown 10/06/2019 3:48 PM EST 10/06/2019 3:48 PM EST Juan Tran MD PATHOLOGY/CYTOLOGY ORDERABLES [facility] [place] [address] documented in this encounter Visit Diagnoses Diagnosis [...] Nebulization, EVERY 6 HOURS, First dose on Cheryl 10/07/19 at 0845, Until Discontinued, Routine Given 10/08/2019 [...] IV bolus Intravenous, ONCE, 1 dose, On Cheryl 10/07/19 at 0100 New Bag 10/07/2019 12:46 AM EST lactated Ringers 500 mL IV bolus Intravenous, ONCE, 1 dose, On Cheryl 10/07/19 at 0445 New Bag 10/07/2019 4:21 AM [...] mcg, Oral, EVERY MORNING, First dose on Cheryl 10/07/19 at 0600, Until Discontinued, Routine Given 10/08/2019 6:15 AM EST 100 mcg Given 10/07/2019 5:40 AM EST 100 mcg loratadine (CLARITIN) tablet 10 mg 10 mg, Oral, DAILY, First dose on Cheryl [...] Cheryl 10/07/19 at 1700, Until Discontinued, Routine Given 10/07/2019 [...] Routine 1913 (Given - Provider: Khadra Aquino RN)2327 (Given - Provider: Vini Lizama RN) 0540 (Given - Provider: Vini Lizama RN)1156 (Given - Provider: Malka Claire RN)1747 (Given - Provider: La Camejo RN) 0000 (Not Given - Provider: Shahnaz Pfeiffer RN - Reason: See comment - Comment: pt sleeping)0613 (Given - Provider: Shahnaz Pfeiffer RN)1211 (Given - Provider: Chandan Wasserman RN) albuterol (PROVENTIL) nebulizer solution 2.5 mg (CANCELED) 2.5 mg, Nebulization, EVERY 6 HOURS, First dose on Fri10/06/19 at 2100, Until Discontinued, Routine 2241 (Given - Provider: Vini Lizama RN) 0240 [...] 0952 (Given - Provider: Chandan Wasserman, RN) ceFAZolin (ANCEF) 2g in dextrose 5% [...] 0952 (Given - Provider: Chandan Wasserman RN) docusate sodium (COLACE) capsule 100 mg 100 mg, Oral, 3 TIMES DAILY, First dose on Fri10/06/19 at 2100, Until Discontinued, Routine 2243 (Given - Provider: Vini Lizama RN) 0935 (Given - Provider: Malka Claire, VENU)1345 (Given - Provider: Malak Claire RN - Comment: patient request)1403 (Not Given - Provider: Malka Claire RN - Reason: See comment - Comment: see previous documentation)2111 (Given - Provider: Shahnaz Pfeiffer, VENU) 0952 (Given - Provider: Chandan Wasserman, RN) famotidine (PEPCID) tablet 40 mg 40 mg, Oral, DAILY, First dose on Fri10/07/19 at 0900, Until Discontinued 0935 (Given - Provider: Malka Claire, VENU) 0951 (Given - Provider: Chandan Wasserman, RN) heparin (Porcine) subcutaneous injection 5,000 Units [...] Lizama RN)1345 (Given - Provider: Malka Claire RN)2111 (Given - Provider: Shahnaz Pfeiffer, VENU) 0615 (Given - Provider: Shahnaz Pfeiffer, VENU)1400 [...] Malka Claire RN)1345 (Given - Provider: Malka Claire RN)2112 (Given - Provider: Shahnaz Pfeiffer, VENU) 0245 (Not Given - Provider: Shahnaz Pfeiffer [...] Discontinued, Routine 0540 (Given - Provider: Vini Lizama, RN) 0615 (Given - Provider: Shahnaz Pfeiffer, RN) loratadine (CLARITIN) tablet 10 mg 10 mg, Oral, DAILY, First dose on Fri10/07/19 at 0900, Until Discontinued, Routine 0935 (Not Given - Provider: Malka Claire RN - Reason: Patient/family refused) 0952 (Given - Provider: Chandan Wasserman, RN) metoprolol tartrate (LOPRESSOR) tablet 50 mg 50 mg, Oral, 2 TIMES DAILY, First dose on Fri10/06/19 at 2100, Until Discontinued, Routine 2244 (Given - Provider: Vini Lizama, RN) 0937 (Given - Provider: Malka Claire, VENU)211 (Given - Provider: Shahnaz Pfeiffer, RN) 0952 (Given - Provider: Chandan Wassermna, RN) pantoprazole (PROTONIX) tablet 40 mg 40 mg, Oral, DAILY, First dose on Fri10/07/19 at 0900, Until Discontinued, DO NOT CRUSH OR OPEN 0937 (Given - Provider: Malka Claire, VENU) 0952 (Given - Provider: Chandan Wasserman, VENU) senna (SENOKOT) tablet 17.2 mg 17.2 mg, [...] VENU) 0935 (Given - Provider: Malka Claire, VENU)212 (Given - Provider: Shahnaz Pfeiffer, RN) 0957 (Given - Provider: Chandan Wasserman, RN) [...] Vini Lizama RN)0936 (Stopped - Provider: Malka Claire RN) 1229 (Stopped - Provider: Chandan Wasserman RN) PRN Medication Order 10/06/2019 10/07/2019 10/08/2019 BUpivacaine (PF) (MARCAINE) 0.5 % (5 mg/mL) injection (CANCELED) ONCE PRN, Starting on Fri10/06/19 at 1534, Until Fri10/08/19 at 1640, Intra-Operative (Intra-Procedure), Routine 1533 (Given - Provider: Juan Tran MD) ketorolac [...] PACU Recovery 1916 (Given - Provider: Khadra Aquino, RN) ondansetron (ZOFRAN) injection 4 mg 4 [...] Unit), Routine 1913 (Given - Provider: Khadra Aquino, VENU) 0030 (Given - Provider: Vini Lizama, VENU)0935 (Given - Provider: Malka Claire, VENU)1448 (Given - Provider: Malka Claire, VENU) 0614 (Given - Provider: Shahnaz Pfeiffer, VENU)1011 (Given - Provider: Chandan Wasserman, VENU) sodium chloride 0.9 % (flush) flush 5-20 mL 5-20 mL, Intravenous, EVERY 1 MIN PRN, Starting on Fri10/06/19 at 2154, Until Fri10/08/19 at 1640, flush, Flush pertains to all indwelling lines. Flush per protocol found in the job aid using the link provided on this medication record., Recovery (Recovery-Hospital Unit), Routine documented in this encounter Care Teams Stave Saw Operator Relationship Specialty Start Date End Date Kathy Wright, CODING COORDINATOR PCP - General Family Medicine 04/22/19 documented as of this encounter
--- OUTSIDE RECORDS SUMMARY | 2024-07-28 02:10 | XMS_ITS | Encounter Summary ---
[place] [address] Care Team Providers Care Professor Of Psychology Name Role Phone Kathy Wright SUPERVISOR DRYING Primary Care Provider [phone] Encounter Details Date Type Department Care Team (Late st Contact Info) Description 11/12/2019 Refill [place]ematology [place] [address] Radha Bynum RN Non-small cell lung cancer, [...] 11/12/2019 1:35 PM EST Message received from admin secretary: Patient needs a couple of teeth removed she is not sure if she needs to wait until after treatment is complete? Please call to discuss [phone] West who states [...] her infusions. She would like [facility] to [facility]. Encouraged her to call back should she have further questions or concerns. documented in this encounter Plan of Treatment Not on file documented as of this encounter Visit Diagnoses Diagnosis Non-small cell lung cancer, right documented in this encounter Care Teams Professor Of Psychology Relationship Specialty Start Date End Date Kathy Wright, MARÍA PCP - General Family Medicine 04/22/19 documented as of this encounter
--- OUTSIDE RECORDS SUMMARY | 2024-07-28 02:10 | XMS_ITS | Encounter Summary ---
Author Organization [facility] [place] [address] Care Team Providers Care Paper Machine Operator Name Role Phone Kathy Wright MARÍA Primary Care Provider [phone] Reason for Visit * Reason Onset Date Comments Other 10/13/2019 post op call Encounter Details Date Type Department Care Team (Late st Contact Info) Description 10/13/2019 Telephone [place] [phone] Anna Owen, RN Other (post op call) [...] on filedocumented in this encounter Care Teams Paper Machine Operator Relationship Specialty Start Date End Date Kathy Wright APRN PCP - General Family Medicine 04/22/19 documented as of this encounter
--- OUTSIDE RECORDS SUMMARY | 2024-07-28 02:10 | XMS_ITS | Encounter Summary ---
[place] [address] Care Team Providers Care Mini Bar Attendant Name Role Phone Kathy Wright Butch DANIEL Primary Care Provider [phone] Encounter Details Date Type Department Care Team (Late st Contact Info) Description 11/12/2019 Telephone Hematology [place] [phone] Maame Can RN Social History Tobacco Use [...] PM EST RESEARCH NURSE TELEPHONE NOTE Farzana [id number],Adjuvant Lung Cancer Enrichment Marker Identification and Sequencing Trial ?? Date: 11/12/2019 Time: 2:43 PM Reason for call: Prescription for antemetic and dental question (home) Malreni Arreola called to let me know that the prescription for nausea had not been called in and that she wanted to make sure she got it before she started chemo on Friday. Marleni also went to the dentist this past week and needs two teeth pulled and was asking when should she have that done. Discussed all w/ Dr. West, who called in the antimetic perscription . Radha will call and speak with patient regarding dental procedure. Plan: 1. 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 Next visit in [facility] scheduled for 11/15/19 2. Pt will setup operator nausea medication at [facility] in [facility] Pt understands and agrees with plan and knows she can call the clinic with any further questions orconcerns. documented in this encounter Plan of Treatment Not on file documented as of this encounter Visit Diagnoses Not on filedocumented in this encounter Care Teams Mini Bar Attendant Relationship Specialty Start Date End Date Kathy Wright APRN PCP - General Family Medicine 04/22/19 documented as of this encounter
--- OUTSIDE RECORDS SUMMARY | 2024-07-28 02:10 | XMS_ITS | Encounter Summary ---
Author Organization [facility] Address [facility] [place] [address] Care Team Providers Care Cuff Matcher Name Role Phone Kathy Wright TEST BORE HELPER Primary Care Provider [phone] Encounter Details Date Type Department Care Team (Latest Contact Info) Description 10/21/2019 10:27 AM EST - 10/21/2019 11:59 PM [facility] Hospital Encounter XRay at [address] [place] [address] Juan Ny MD [facility] [place] [address] Lung nodule Discharge Disposition: Home Social History [...] report, please contact the number below. Juan Ny MD IMG DX ORDERABLES documented in this encounter Visit Diagnoses Diagnosis Lung nodule Solitary pulmonary nodule documented in this encounter Care Teams Cuff Matcher Relationship Specialty Start Date End Date Kathy Wright APRN PCP - General Family Medicine 04/22/19 documented as of this encounter
--- OUTSIDE RECORDS SUMMARY | 2024-07-28 02:10 | XMS_ITS | Encounter Summary ---
[place] [address] Care Team Providers Care Tube Machine Operator Helper Name Role Phone GerardoKathy nicolas Butch DANIEL Primary Care Provider [phone] Encounter Details Date Type Department Care Team (Late st Contact Info) Description 11/29/2019 Telephone Hematology [place] [address] Radha Bynum RN Social History Tobacco Use [...] on filedocumented in this encounter Care Teams Tube Machine Operator Helper Relationship Specialty Start Date End Date Kathy Wright APRN PCP - General Family Medicine 04/22/19 documented as of this encounter
--- OUTSIDE RECORDS SUMMARY | 2024-07-28 02:10 | XMS_ITS | Encounter Summary ---
Author Organization [facility] [address] [place] [address] Care Team Providers Care Senior Analyst Programmer Name Role Phone GerardoKathy nicolas Butch DANIEL Primary Care Provider [phone] Encounter Details Date Type Department Care Team (Late Contact [facility]) Description 11/16/2019 Notes Only Hematology/Oncology at [address] [phone] Holly Schaeffer MSW OFFICE OF CARE MANAGEMENT [...] 3 very good friends. Pt identified the [facility] worker who checks on her occasionally. Pt also has a daughter who she has a strained relationship with. Living Situation/Daily Activities/Transportation: Pt lives alone in an apartment in [facility]. She uses [facility] for transportation to medical appointments and she schedules her own rides. Work/Finances/Insurance: Pt is disabled. She has income from . She has Medicaid for insurance. Advance Directives: Pt has completed her advance directive and a copy is in her medical record. Utilization of Community Resources: RCT; [employer]/food assistance; local food shelves; [facility] services; Adjustment to Illness/Mental Health Issues: [...] at this time. Plan: Informed pt of [employer] availability and will follow for support and resources. documented in this encounter Plan of Treatment Not on file documented as of this encounter Visit Diagnoses Not on filedocumented in this encounter Care Teams Senior Analyst Programmer Relationship Specialty Start Date End Date Kathy Wright APRN PCP - General Family Medicine 04/22/19 documented as of this encounter
--- OUTSIDE RECORDS SUMMARY | 2024-07-28 02:10 | XMS_ITS | Encounter Summary ---
[place] [address] Care Team Providers Care Pickling Machine Operator Name Role Phone Kathy Wright WHEEL FILLER Primary Care Provider [phone] Encounter Details Date Type Department Care Team (Late st Contact Info) Description 10/22/2019 Notes Only [place]acic [place] [address] Anna Owen, RN Social History Tobacco Use [...] Informed Consent to Participate in Clinical Trial [id number]: Creating a National Resource for Opioid Prescribing Across Surgical Specialties AYLIN ALFONSO was contacted post-operatively on (date) 10/21/19 AYLIN ALFONSO was offered the opportunity to participate in study [id number]: Creating a National Resource for Opioid Prescribing [...] protocol and verbally consented to participate in C41107: Creating a National Resource for Opioid Prescribing Across Surgical Specialties. documented in this encounter Plan of Treatment Not on file documented as of this encounter Visit Diagnoses Not on filedocumented in this encounter Care Teams Pickling Machine Operator Relationship Specialty Start Date End Date Kathy Wright APRN PCP - General Family Medicine 04/22/19 documented as of this encounter
--- OUTSIDE RECORDS SUMMARY | 2024-07-28 02:10 | XMS_ITS | Encounter Summary ---
Author Organization [facility] Address [facility] [place] [address] Care Team Providers Care Hydrological Technical Officer Name Role Phone Kathy Wright Butch DANIEL Primary Care Provider [phone] Encounter Details Date Type Department Care Team (Latest Contact Info) Description 12/15/2019 8:55 AM EST - 12/15/2019 12:03 PM [facility] Hospital Encounter [place]ology [place] [address] Primary malignant neoplasm of right lower lobe [...] lower lobe of lung COMPREHENSIVE METABOLIC PANEL Routine 12/15/2019 9:19 AM EST Primary malignant neoplasm of right lower lobe of lung documented in this encounter Results * Scan, Peripheral Blood (12/15/2019 9:19 AM EST) Plat estimate Decreased [facility] RBC Morphology Abnormal [facility] Stomatocytes 1-5 /HPF [facility] Blood specimen (specimen) 12/15/2019 9:19 AM EST 12/15/2019 9:47 AM EST Narrative Resulting Agency Comment Spec In Lab Yanira Perez DO HEMATOLOGY ORDERABLE S [facility] [place] [address] * (ABNORMAL) Differential, Automated (12/15/2019 9:19 AM EST) Neutrophil % 57.9 % [facility] Neutrophil Absolute 1.96 1.70 - 6.10 x10(3)/mc L [facility] Lymph % 37.9 % [facility] Lymphocytes Abs 1.3 0.9 - 3.2 x10(3)/ L [facility] Monocyte % 3.0 % [facility] Monocyte Abs 0.1(L) 0.3 - 0.9 x10(3)/ L [facility] Eos % 0.3 % [facility] Eosinophils Abs 0.0 0.0 - 0.4 x10(3)/[facility] Basophil % 0.6 % [facility] Baso Absolute 0.0 0.0 - 0.1 x10(3)/[facility] Immature Gran % 0.30 % [facility] Comment: Immature granulocytes(IG's)percentage and absolute count will include metamyelocytes, myelocytes, and promyelocytes. Blood smears from CBCs yielding IG's will be scanned manually for concordance. If this scan disagrees with the automated IG or if promyelocytes are noted, a manual differential will be performed. Immature Gran Absolute 0.01 0.00 - 0.04 x10(3)/[facility] Blood specimen (specimen) 12/15/2019 9:19 AM EST 12/15/2019 9:47 AM EST Narrative Resulting Agency Comment Spec In Lab Yanira Perez DO HEMATOLOGY ORDERABLE S Performing Organization Address City/State/[facility] Co de Phone Number [facility] [place] [address] * (ABNORMAL) Hemogram (12/15/2019 9:19 AM EST) White Blood Cell 3.4(L) 4.0 - 9.5 x10(3)/[facility] Red Blood Cell 3.55(L) 4.00 - 5.21 x10(6)/[facility] Hemoglobin 10.9(L) 11.7 - 15.5 gm/dL [facility] Hematocrit 32.3(L) 35.7 - 45.8 % [facility] Mean Cell Volume 91.0 82.6 - 94.4 fL [facility] Mean Cell Hemoglobin 30.7 27.1 - 32.0 pg [facility] Mean Cell Hemoglobin Concentration 33.7 31.7 - 35.0 gm/dL [facility] Platelet 135(L) 145 - 357 x10(3)/mc L [facility] RDW Standard Deviation 43.7 37.0 - 46.0 fL [facility] RDW coefficient of variation 13.5 11.5 - 14.1 % [facility] Mean Platelet Volume 9.9 7.6 - 12.9 fL [facility] NRBC% auto 0.0 % [facility] NRBC Absolute 0.000 0.000 - 0.000 x10(3)/mc L [facility] Blood specimen (specimen) 12/15/2019 9:19 AM EST 12/15/2019 9:47 AM EST Narrative Resulting Agency Comment Spec In Lab Yanira Perez DO HEMATOLOGY ORDERABLE S [facility] [place] [address] * (ABNORMAL) Comprehensive metabolic panel (non-fasting) (12/15/2019 9:19 AM EST) Glucose 119 65 - 199 mg/dL [facility] Comment:Diabetes: >=200 mg/d L plus symptoms Blood Urea Nitrogen 36(H) 8 - 18 mg/dL [facility] Creatinine 2.10(H) 0.70 - 1.20 mg/dL [facility] Sodium 135 135 - 145 mmol/L [facility] Potassium 4.2 3.5 - 5.0 mmol/L [facility] Comment: Please note: ??Patients with WBC >100,000 may have falsely elevated Potassium levels. ??For accurate Potassium quantification in these patients send serum separator tube (gold top) for subsequent determinations. ??Contact the Clinical Chemistry Laboratory if there are any questions. Chloride 95(L) 98 - 107 mmol/L [facility] Carbon Dioxide 24 22 - 31 mmol/L [facility] Anion Gap 16(H) 5 - 15 mmol/L [facility] Calcium 9.8 8.5 - 10.5 mg/dL [facility] Protein, Total 7.2 6.1 - 8.0 gm/dL [facility] Albumin 4.1 3.2 - 5.2 gm/dL [facility] Aspartate Aminotransferase 20 0 - 30 unit/L [facility] Alanine Aminotransferase 29 0 - 30 unit/L [facility] Alkaline Phosphatase 105 35 - 105 unit/L [facility] Bilirubin, Total 0.4 0.2 - 1.3 mg/dL [facility] Est Glomerular Filtration Rate 25(L) >=60 mL/min/1. 73 m?? [facility] Comment: The eGFR was calculated using the CKD-EPI equation. As with all creatinine based estimates of kidney function, eGFR values calculated with the CKD-EPI equation are not accurate in patients with acute kidney failure, extremes of body mass or the acutely ill. [email or web address]/[email or web address] eGFR 29(L) >=60 mL/min/1. 73 m?? [facility] Comment: The eGFR was calculated using the CKD-EPI equation. As with all creatinine based estimates of kidney function, eGFR values calculated with the CKD-EPI equation are not accurate in patients with acute kidney failure, extremes of body mass or the acutely ill. [email or web address] Blood specimen (specimen) 12/15/2019 9:19 AM EST 12/15/2019 9:47 AM EST Narrative Resulting Agency Comment Spec In Lab Toño West MD CHEMISTRY ORDERA BLES [facility] [place] [address] * (ABNORMAL) Lactate Dehydrogenase (12/15/2019 9:19 AM EST) Lactate Dehydrogenase 270(H) 110 - 220 unit/L [facility] Blood specimen (specimen) 12/15/2019 9:19 AM EST 12/15/2019 9:47 AM EST Narrative Resulting Agency Comment Spec In Lab Toño West MD CHEMISTRY ORDERA BLES Performing Organization Address City/State/[facility] Co de Phone Number [facility] [place] [phone] documented in this encounter Visit Diagnoses Diagnosis Primary malignant neoplasm of right lower lobe of lung Malignant neoplasm of lower lobe, bronchus, or lung documented in this encounter Care Teams Hydrological Technical Officer Relationship Specialty Start Date End Date Kathy Wright, MARÍA PCP - General Family Medicine 04/22/19 documented as of this encounter
--- OUTSIDE RECORDS SUMMARY | 2024-07-28 02:10 | XMS_ITS | Encounter Summary ---
Author Organization [facility] [place] [address] Care Team Providers Care Drafting Layout Man Name Role Phone GerardoKathy nicolas Butch DANIEL Primary Care Provider Reason for Visit * Reason Onset Date Comments Appointment 10/22/2019 Encounter Details Date Type Department Care Team (Late st Contact Info) Description 10/22/2019 Telephone Radiation Oncology at [address] [phone] Lay Hauser Appointment Social History Tobacco Use [...] She did not want to travel to [place] and I have put her on the wait list if any cancellations happen. documented in this encounter Plan of Treatment Not on file documented as of this encounter Visit Diagnoses Not on filedocumented in this encounter Care Teams Drafting Layout Man Relationship Specialty Start Date End Date Kathy Wright APRN PCP - General Family Medicine 04/22/19 documented as of this encounter
--- OUTSIDE RECORDS SUMMARY | 2024-07-28 02:10 | XMS_ITS | Encounter Summary ---
Author Organization [facility] [place] [address] Care Team Providers Care Automobile Body Worker Name Role Phone GerardoKathy nicolas Butch [...] 10MG, INJECTION Toño West MD [facility] [place] [address] [facility] [place] [address] [place] [address] Referral ID Status Reason Start Date Expiration Date Visits Re quested Visits Authorized [id number] Closed 11/09/2019 11/08/2020 12 12 Encounter Details Date Type Department Care Team (Late st Contact Info) Description 12/07/2019 9:30 AM EST Infusion Hematology Oncology at [address] [address] Non-small cell lung cancer, right [...] by Jermaine Sanders RN & Rj Glez [facility]. Prior to administration of Cisplatin, [...] 2 minutes is a recommendation from the library consultant. Administer prior to chemotherapy., Routine Given 12/07/2019 [...] mL/hr documented in this encounter Care Teams Automobile Body Worker Relationship Specialty Start Date End Date Kathy Wright, WIND TURBINE ERECTOR PCP - General Family Medicine 04/22/19 documented as of this encounter
--- OUTSIDE RECORDS SUMMARY | 2024-07-28 02:10 | XMS_ITS | Encounter Summary ---
Author Organization [facility] [place] [address] Care Team Providers Care Sheet Finisher Name Role Phone GerardoKathy nicolas Butch DANIEL Primary Care Provider Reason for Visit * Reason Comments Follow-up Encounter Details Date Type Department Care Team (Late st Contact Info) Description 12/15/2019 11:15 AM EST Office Visit [place]emat[place] [address] Adrienne Mendez [facility]-[place] [address] Non-small cell lung cancer, right Social History [...] this encounter Progress Notes * Adrienne Mendez, HUB LEAD - 12/15/2019 11:15 AM EST Images from [...] RLL.??A dedicated??CT Chest was performed??07/02/18??which demonstrated stable rhog-px-iegw nodules in the RLL, largest measuring 9 [...] performed by Juan Ny MD at [facility] MAIN OR ? ? PRO INJECTION ANES AGENT &/ STEROID INTERCOSTAL NERVE EA ADDL LEVEL Right 10/06/2019 NERVE BLOCK, INTERCOSTAL NERVE, MULTIPLE (WRVU 1.68) performed by Juan Ny MD at [facility] MAIN OR ??? PRO THORACOSCOPY SURG LOBECTOMY Right 10/06/2019 @ROBOT XI THORACOSCOPY,SURGICAL,W\LOBECTOMY,TOTAL OR SEGMENTAL (WRVU 24.64) performed by Juan Ny MD at [facility] MAIN OR ??? PRO THORACOSCOPY WITH MEDIASTINAL AND REGIONAL LYMPHADENECTOMY Right 10/06/2019 @ROBOT XI THORACOSCOPY,SURG; W/MEDIASTINAL& REGIONAL LYMPHADENECTOMY (WRVU 4.12) performed by Juan Ny MD at [facility] MAIN OR ??? 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 on Friday. Recommend restarting COPD regimen for dyspnea. Will bring her back to clinic prior to C3 to determine whether we need to change from cisplatin to carboplatin for subsequent cycles of chemotherapy. The patient understands that despite completing all therapy, she will be at significant risk for recurrence and regular surveillance will be recommended. Recheck BMP on Friday AM at [facility]. RTC in 2 weeks with labs, clinic, infusion for cisplatin/pemetrexed. Cancel infusion at [facility]. Send note to PCP. Pt [...] please contact the number below. Adrienne Mendez HUB LEAD IMG DX ORDERABLES documented in this encounter Visit Diagnoses Diagnosis Non-small cell lung cancer, right Non-small cell lung cancer, right documented in this encounter Care Teams Sheet Finisher Relationship Specialty Start Date End Date Kathy Wright APRN PCP - General Family Medicine 04/22/19 documented as of this encounter
--- OUTSIDE RECORDS SUMMARY | 2024-07-28 02:10 | XMS_ITS | Encounter Summary ---
Author Organization [facility] Address [facility] [place] [address] Care Team Providers Care Vacuum Pan Tender Name Role Phone Kathy Wright MARÍA Primary Care Provider [phone] Reason for Visit * Consultation (Urgent) - Closed Specialty Diagnoses / Procedures Referred By Janie cassidy Referred To Contact Radiation Oncology Diagnoses Nodule of lower lobe of right lung Primary adenocarcinoma of lower lobe of right lung Juan Ny MD [facility] [place] [address] Doyle Delvalle MD [address] [place] [address] [place] [address] Referral ID Status Reason Start Date Expiration Date V isits Requested Visits Authorized [id number] Closed Consult, Test & Treat 10/21/2019 10/20/2020 1 1 Encounter Details Date Type Department Care Team (Late st Contact Info) Description 11/29/2019 9:00 AM EST Office Visit Radiation Oncology at [address] [address] Doyle Delvalle MD [address] [place] [address] [place] [address] Non-small cell lung cancer, right [...] do not hesitate to call me at [phone] with any other questions or concerns you have. IfI am not here, one of our radiation oncology nurses can assist you or help you get in touch with me. A Radiation Oncology doctor is also distribution systems superintendent after our normal hours and on weekends for urgent questions or concerns related to radiation treatments that can not wait until normal business hours. To reach the on-call doctor after-hours, just call and have the refinery operator light ends recovery page the Radiation Oncologist distribution systems superintendent. And, as always, if you experience any [...] injury 7. Uncontrollable bleeding Doyle Epps MD Pai Gow Managercemetery keeper Radiation Oncology [facility] documented in this encounter Progress Notes * Doyle Delvalle MD - 11/29/2019 9:00 AM EST Images from the original note were not included. Radiation Oncology Consult Note Doyle Delvalle MD, MS [facility] [phone] PATIENT IDENTIFICATION: PATIENT NAME: Marleni Arreola DATE OF : 1960 REFERRING PROVIDER: Juan Ny MD [facility] [place] [address] REASON FOR CONSULTATION : Cancer Staging Non-small cell lung cancer, right Staging form: Lung, AJCC 8th Edition - Clinical stage from 08/04/2019: Stage IA2 (cT1b, cN0, cM0) - Signed by Toño West MD on11/09/2019 - Pathologic: Stage IIIA (pT1b, [...] BRONCHOSCOPY, DIAGNOSTIC (WRVU 2.78) performed by Juan yN MD at [facility] MAIN OR ??? PRO INJECT NERV BLCK, INTERCOST, MULTPL Right 10/06/2019 NERVE BLOCK, INTERCOSTAL NERVE, MULTIPLE (WRVU 1.68) performed by Juan Ny MD at [facility] MAIN OR ??? PRO THORACOSCOPY SURG LOBECTOMY Right 10/06/2019 @ROBOT XI THORACOSCOPY,SURGICAL,W\LOBECTOMY,TOTAL OR SEGMENTAL (WRVU 24.64) performed by Juan Ny MD at [facility] MAIN OR ??? PRO THORACOSCOPY WITH MEDIASTINAL AND REGIONAL LYMPHADENECTOMY Right 10/06/2019 @ROBOT XI THORACOSCOPY,SURG; W/MEDIASTINAL& REGIONAL LYMPHADENECTOMY (WRVU 4.12) performed by Juan Ny MD at [facility] MAIN OR ??? PRO THORACOSCOPY WITH WEDGE RESECTION AND ANATOMIC LUNG RESECTN Right 10/06/2019 @ROBOT XI THORACOSCOPY,SURG; W/DX WEDGE RESC W/ANATOMIC LUNG RESC (WRVU 3) performed by Juan Ny MD at [facility] MAIN OR CONTRAINDICATIONS TO RADIATION THERAPY: None [...] not taking: Reported on 11/09/2019 SOCIAL HISTORY: [place]: [facility] Living Situation: By herself - she has family support close by Transit time to [facility]: 10 minutes Employment history: On disability [...] REVIEW: PET/CT 08/04/19 1cm FDG-avid RLL nodule Pharmacist Critical Care Images: PATHOLOGY REVIEW: Source: RLL segmentectomy Provider / Location: Dr Ny / [facility] Date: 10/06/19 Histology / Grade Adenocarcinoma, predominantly [...] minute visit was spent with the patient [id number] reviewing her interval medical history and answering [...] treatment: financial and transportation. Uses RCT. Referrals/Interventions: delinquency prevention social worker RADIATION SPECIFIC TEACHING:Will provide the following information [...] right documented in this encounter Care Teams Vacuum Pan Tender Relationship Specialty Start Date End Date Kathy Wright, MARÍA PCP - General Family Medicine 04/22/19 documented as of this encounter
--- OUTSIDE RECORDS SUMMARY | 2024-07-28 02:10 | XMS_ITS | Encounter Summary ---
Author Organization [facility] Address [facility] [place] [address] Care Team Providers Care Instrument And Control Technician Name Role Phone GerardoKathy nicolas Butch DANIEL Primary Care Provider [phone] Encounter Details Date Type Department Care Team (Latest Contact Info) Description 12/15/2019 12:04 PM EST - 12/15/2019 12:39 PM [facility] Hospital Encounter XRay at [address] [place] [address] Adrienne Mendez APRN [facility] HEMATOLOGY-[place] [address] Non-small cell lung cancer, right Discharge Disposition: [...] the number below. ? Electronically signed by: DECLAN Galloway [facility] ([phone]), at 12/15/2019 2:38 PM Narrative 12/15/2019 2:38 PM EST EXAMINATION: XR [...] contact the number below. Electronically signed by: DECLAN Galloway [facility]([phone]), at 12/15/2019 2:38 PM Adrienne C Andrea DATA GOVERNANCE CONSULTANT IMG DX ORDERABLES documented in this encounter Visit Diagnoses Diagnosis Non-small cell lung cancer, right documented in this encounter Care Teams Instrument And Control Technician Relationship Specialty Start Date End Date Kathy Wright APRN PCP - General Family Medicine 04/22/19 documented as of this encounter
--- OUTSIDE RECORDS SUMMARY | 2024-07-28 02:10 | XMS_ITS | Encounter Summary ---
[facility] [place] [address] Care Team Providers Care Dip Lube Operator Name Role Phone Kathy Wright MARÍA Primary Care Provider [phone] Reason for Visit * Reason Onset Date Comments Other 10/15/2019 call to check in regarding BM. Encounter Details Date Type Department Care Team (Late st Contact Info) Description 10/15/2019 Telephone [place] [address] Anna Owen RN Other (call to check [...] on filedocumented in this encounter Care Teams Dip Lube Operator Relationship Specialty Start Date End Date Kathy Wirght APRN PCP - General Family Medicine 04/22/19 documented as of this encounter
--- OUTSIDE RECORDS SUMMARY | 2024-07-28 02:10 | XMS_ITS | Encounter Summary ---
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 No results by the end of clinic day on 11/23. laborer fryer farm to follow-up on lab results on 11/25. documented in this encounter Plan of Treatment Not on file documented as of this encounter Visit Diagnoses Not on filedocumented in this encounter Care Teams Production Illustrator Relationship Specialty Start Date End Date Kathy Wright APRN PCP - General Family Medicine 04/22/19 documented as of this encounter
--- OUTSIDE RECORDS SUMMARY | 2024-07-28 02:10 | XMS_ITS | Encounter Summary ---
[place] [address] Care Team Providers Care Liquefaction Supervisor Name Role Phone Kathy Wright APRN Primary Care Provider [phone] Encounter Details Date Type Department Care Team (Late st Contact Info) Description 11/23/2019 Ancillary Procedure [place] [address] Kathy Wright APRN [address], [place] [id number] Social History Tobacco Use Types Packs/Day Years [...] MR Head (11/23/2019 12:00 AM EST) Narrative [facility] - 11/26/2019 8:57 AM EST This exam is auto-finalizing. It's purpose is for storage only. Kathy Wright APRN IMG FILM LIBRARY ORD ERABLES [place], [place] documented in this encounter Visit Diagnoses Not on filedocumented in this encounter Care Teams Liquefaction Supervisor Relationship Specialty Start Date End Date Kathy Wright, MARÍA PCP - General Family Medicine 04/22/19 documented as of this encounter
--- OUTSIDE RECORDS SUMMARY | 2024-07-28 02:10 | XMS_ITS | Encounter Summary ---
Author Organization [facility] Address [facility] [address] Care Team Providers Care Blast Furnace Blower Name Role Phone GerardoKathy nicolas Butch DANIEL Primary Care Provider [phone] Reason for Visit * Reason Comments Lung Cancer * Consultation (Urgent) - Closed Specialty Diagnoses / Procedures Referred By Janie cassidy Referred To Contact Hematology and Oncology Diagnoses Nodule of lower lobe of right lung Primary adenocarcinoma of lower lobe of right lung Juan Ny MD [facility] [place] [address] [facility] [address] [place] [address] Referral ID Status Reason Start Date Expiration Date V isits Requested Visits Authorized [id number] Closed Consult, Test & Treat 10/21/2019 10/20/2020 1 1 Encounter Details Date Type Department Care Team (Late st Contact Info) Description 11/09/2019 10:15 AM EST Office Visit Hematology [place] [address] Toño Zuluaga MD [facility] [place] [address] Adrienne Mendez APRN [facility] DR HEMATOLOGY[place] [address] Primary malignant neoplasm of right [...] RLL.??A dedicated??CT Chest was performed??07/02/18??which demonstrated stable enfo-on-xrwm nodules in the RLL, largest measuring 9 [...] 2.78) performed by Juan Ny MD at [facility] MAIN OR ??? PRO INJECT NERV BLCK, INTERCOST, MULTPL Right 10/06/2019 NERVE BLOCK, INTERCOSTAL NERVE, MULTIPLE (WRVU 1.68) performed by Juan Ny MD at [facility] MAIN OR ??? PRO THORACOSCOPY SURG LOBECTOMY Right 10/06/2019 @ROBOT XI THORACOSCOPY,SURGICAL,W\LOBECTOMY,TOTAL OR SEGMENTAL (WRVU 24.64) performed by Juan Ny MD at [facility] MAIN OR ??? PRO THORACOSCOPY WITH MEDIASTINAL AND REGIONAL LYMPHADENECTOMY Right 10/06/2019 @ROBOT XI THORACOSCOPY,SURG; W/MEDIASTINAL& REGIONAL LYMPHADENECTOMY (WRVU 4.12) performed by Juan Ny MD at [facility] MAIN OR ??? 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 8R: ??1/2, isolated tumor cells ?Number of Lymph Nodes Examined: ?12 ?Leonie Stations Examined: ?? 4R: ??0/3, 10R: ??0/2, 12R: ??0/3, 7: ??0/2 Pathologic Stage Classification (pTNM, AJCC 8th Edition) ?Primary Tumor (pT): ?? pT1b NGS panel returned + for KRAS mutation RADIOLOGY STUDIES REVIEWED: CT chest w/o contrast (07/02/2019) IMPRESSION Stable hbfs-ua-wwfj nodules in the right lower lobe, the largest of which measures 9 x 10 mm. Fatty infiltration liver. Progressive sclerosis and height loss at site of L1 burst fracture with stable fragment retropulsion. PET CT (08/04/2019) IMPRESSION 1. FDG avid 13 mm right lower lobe nodule, concerning for malignancy. 2. No regional leonie or suspected distant metastases. 3. Increased activity [...] lobe and mediastinal lymph node dissection which [id number] adenocarinoma (stage IIIa). We counseled the patient [...] She will begin chemotherapy next week at [facility]. We will reimage her chest after cycle 2 of cisplatin/pemetrexed. She will additionally need an MRI brain w/ contrast to r/o metastatic disease.We will see her back after cycle 2. Patient was seen and discussed with Oncology attending Dr. Zuluaga. Yanira Perez D.O. Hematology/Oncology Fellow Pager # [phone] 11/09/19, 10:45 AM Hematology/[place] [address] * Toño Zuluaga MD - 11/09/2019 10:15 [...] importance of not smoking. Toño Zuluaga MD cushion former Hematology/Oncology [phone], beeper [phone] documented in this encounter Miscellaneous Notes * Addendum Note - Toño Zuluaga MD - 11/09/2019 10:15 AM ESTAddended by: TOÑO ZULUAGA on: 11/09/2019 06:44 PM Modules accepted: Orders, Level of Service documented in this encounter Plan of Treatment Not on file documented as of this encounter Results * (ABNORMAL) Lactate Dehydrogenase (12/15/2019 9:19 AM EST) Lactate Dehydrogenase 270(H) 110 - 220 unit/L [facility] Blood specimen (specimen) 12/15/2019 9:19 AM EST 12/15/2019 9:47 AM EST Narrative Resulting Agency Comment Spec In Lab Toño Zuluaga MD CHEMISTRY ORDERA BLES [facility] [place] [address] * (ABNORMAL) Comprehensive metabolic panel (non-fasting) (12/15/2019 9:19 AM EST) Glucose 119 65 - 199 mg/dL [facility] Comment:Diabetes: >=200 mg/d L plus symptoms Blood Urea Nitrogen 36(H) 8 - 18 mg/dL [facility] Creatinine 2.10(H) 0.70 - 1.20 mg/dL [facility] Sodium 135 135 - 145 mmol/L [facility] Potassium 4.2 3.5 - 5.0 mmol/L [facility] Comment: Please note: ??Patients with WBC >100,000 may have falsely elevated Potassium levels. ??For accurate Potassium quantification in these patients send serum separator tube (gold top) for subsequent determinations. ??Contact the Clinical Chemistry Laboratory if there are any questions. Chloride 95(L) 98 - 107 mmol/L [facility] Carbon Dioxide 24 22 - 31 mmol/L [facility] Anion Gap 16(H) 5 - 15 mmol/L [facility] Calcium 9.8 8.5 - 10.5 mg/dL [facility] Protein, Total 7.2 6.1 - 8.0 gm/dL [facility] Albumin 4.1 3.2 - 5.2 gm/dL [facility] Aspartate Aminotransferase 20 0 - 30 unit/L [facility] Alanine Aminotransferase 29 0 - 30 unit/L [facility] Alkaline Phosphatase 105 35 - 105 unit/L [facility] Bilirubin, Total 0.4 0.2 - 1.3 mg/dL [facility] Est Glomerular Filtration Rate 25(L) >=60 mL/min/1. 73 m?? [facility] Comment: The eGFR was calculated using the CKD-EPI equation. As with all creatinine based estimates of kidney function, eGFR values calculated with the CKD-EPI equation are not accurate in patients with acute kidney failure, extremes of body mass or the acutely ill. http://[employer]/[facility] OK[facility] CITYnkf eGFR 29(L) >=60 mL/min/1. 73 m?? [facility] Comment: The eGFR was calculated using the CKD-EPI equation. As with all creatinine based estimates of kidney function, eGFR values calculated with the CKD-EPI equation are not accurate in patients with acute kidney failure, extremes of body mass or the acutely ill. http://[employer]/[facility] CITYnkf Blood specimen (specimen) 12/15/2019 9:19 AM EST 12/15/2019 9:47 AM EST Narrative Resulting Agency Comment Spec In Lab Toño Zuluaga [place] [address] documented in this encounter Visit Diagnoses Diagnosis Primary malignant neoplasm of right lower lobe of lung Malignant neoplasm of lower lobe, bronchus, or lung Non-small cell lung cancer, right documented in this encounter Care Teams Blast Furnace Blower Relationship Specialty Start Date End Date Kathy Wright APRN PCP - General Family Medicine 04/22/19 documented as of this encounter
--- OUTSIDE RECORDS SUMMARY | 2024-07-28 02:11 | XMS_ITS | Encounter Summary ---
Author Organization [facility] Address [facility] [place] [address] Care Team Providers Care Supervisor Packing Room Name Role Phone GerardoKathy nicolas Butch DANIEL Primary Care Provider [phone] Encounter Details Date Type Department Care Team (Latest Contact Info) Description 08/04/2019 11:08 AM EDT - 08/04/2019 11:56 AM EDT Hospital [place] [address] Chronic obstructive pulmonary disease, unspecified COPD type [...] type documented in this encounter Care Teams Supervisor Packing Room Relationship Specialty Start Date End Date Kathy Wright, STATE SUPERINTENDENT [employer] SCHOOLS PCP - General Family Medicine 04/22/19 documented as of this encounter
--- OUTSIDE RECORDS SUMMARY | 2024-07-28 02:11 | XMS_ITS | Encounter Summary ---
[place] [address] Care Team Providers Care Manager College Name Role Phone Kathy Wright APRN Primary Care Provider [phone] Encounter Details Date Type Department Care Team (Late st Contact Info) Description 08/31/2019 Tele[place] [phone] Anahy Sharma Social History Tobacco Use Types [...] filedocumented in this encounter Care Teams Manager College Relationship Specialty Start Date End Date Kathy Wright APRN PCP - General Family Medicine 04/22/19 documented as of this encounter
--- OUTSIDE RECORDS SUMMARY | 2024-07-28 02:11 | XMS_ITS | Encounter Summary ---
Author Organization [facility] [place] [address] Care Team Providers Care Antenna Installer Name Role Phone Kathy Wright MARÍA Primary Care Provider [phone] Reason for Visit * Reason Comments Back Pain Bilateral Hip Pain Bilateral Foot Pain numbness Encounter Details Date Type Department Care Team (Late st Contact Info) Description 05/04/2019 10:40 AM EDT Office [place] [address] Chuck Rodarte MECHANICAL PENCILS ASSEMBLER [facility] [place] [address] Closed compression fracture of body of L1 [...] this encounter Progress Notes * Chuck Rodarte, MECHANICAL PENCILS ASSEMBLER - 05/04/2019 10:40 AM EDT SUBJECTIVE: Marleni Arreola is a 58 y.o. year old female being seen at the request of with a chief complaint oflow back pain. Patient states that her low back pain began suddenly approximately 4 weeks ago when she was pulling a drawer and a [place] and fell backwards landing on her buttocks [...] day, denies alcohol use, lives alone in [facility] and is disabled. Past medical history includes [...] suggested but is scheduled to see an election clerk in a few days. I briefly reviewed [...] vertebra documented in this encounter Care Teams Antenna Installer Relationship Specialty Start Date End Date Kathy Wright, MARÍA PCP - General Family Medicine 04/22/19 documented as of this encounter
--- OUTSIDE RECORDS SUMMARY | 2024-07-28 02:11 | XMS_ITS | Encounter Summary ---
[place] [address] Care Team Providers Care Features Reporter Name Role Phone Kathy Wright APRN Primary Care Provider [phone] Encounter Details Date Type Department Care Team (Late st Contact Info) Description 09/16/2019 11:00 AM EDT Office [place] [address] Christina Almonte Cigarette nicotine dependence with withdrawal [...] withdrawal documented in this encounter Care Teams Features Reporter Relationship Specialty Start Date End Date Kathy Wright APRN PCP - General Family Medicine 04/22/19 documented as of this encounter
--- OUTSIDE RECORDS SUMMARY | 2024-07-28 02:11 | XMS_ITS | Encounter Summary ---
[place] [address] Care Team Providers Care Linotype Operator Name Role Phone GerardoKathy nicolas Butch DANIEL Primary Care Provider [phone] Encounter Details Date Type Department Care Team (Latest Contact Info) Description 09/16/2019 12:40 PM EDT [place] [address] Cigarette nicotine dependence without complication; Lung nodule; [...] complication Lung nodule Vertigo COMPREHENSIVE METABOLIC PANEL Routine 09/16/2019 12:43 PM EDT Cigarette nicotine dependence without complication Lung nodule Vertigo documented in this encounter Results * Differential, Automated (09/16/2019 12:43 PM EDT) Pathologist [facility] Neutrophil % 50.6 % [facility] Neutrophil Absolute 4.22 1.70 - 6.10 x10(3)/[facility] Lymph % 37.5 % [facility] Lymphocytes Abs 3.1 0.9 - 3.2 x10(3)/[facility] Monocyte % 7.2 % [facility] Monocyte Abs 0.6 0.3 - 0.9 x10(3)/[facility] Eos % 3.1 % [facility] Eosinophils Abs 0.3 0.0 - 0.4 x10(3)/[facility] Basophil % 1.1 % [facility] Baso Absolute 0.1 0.0 - 0.1 x10(3)/[facility] Immature Gran % 0.50 % [facility] Comment: Immature granulocytes(IG's)percentage and absolute count will include metamyelocytes, myelocytes, and promyelocytes. Blood smears from CBCs yielding IG's will be scanned manually for concordance. If this scan disagrees with the automated IG or if promyelocytes are noted, a manual differential will be performed. Immature Gran Absolute 0.04 0.00 - 0.04 x10(3)/[facility] Blood specimen (specimen) 09/16/2019 12:43 PM EDT 09/16/2019 1:05 PM EDT Narrative Resulting Agency Comment Spec In Lab Juan Ny MD HEMATOLOGY ORDERABL ES [facility] [place] [place] [address] * Hemogram (09/16/2019 12:43 PM EDT) White Blood Cell 8.3 4.0 - 9.5 x10(3)/[facility] Red Blood Cell 4.54 4.00 - 5.21 x10(6)/[facility] Hemoglobin 13.6 11.7 - 15.5 gm/dL [facility] Hematocrit 42.3 35.7 - 45.8 % [facility] Mean Cell Volume 93.2 82.6 - 94.4 fL [facility] Mean Cell Hemoglobin 30.0 27.1 - 32.0 pg [facility] Mean Cell Hemoglobin Concentration 32.2 31.7 - 35.0 gm/dL [facility] Platelet 249 145 - 357 x10(3)/[facility] RDW Standard Deviation 45.5 37.0 - 46.0 [facility] RDW coefficient of variation 13.3 11.5 - 14.1 % [facility] Mean Platelet Volume 9.6 7.6 - 12.9 [facility] NRBC% auto 0.0 % [facility] NRBC Absolute 0.000 0.000 - 0.000 x10(3)/[facility] Blood specimen (specimen) 09/16/2019 12:43 PM EDT 09/16/2019 1:05 PM EDT Narrative Resulting Agency Comment Spec In Lab Juan Ny MD HEMATOLOGY ORDERABL ES [facility] [place] [place] [address] * (ABNORMAL) Comprehensive metabolic panel (non-fasting) (09/16/2019 12:43 PM EDT) Glucose 94 65 - 199 mg/dL [facility] Comment:Diabetes: >=200 mg/d L plus symptoms Blood Urea Nitrogen 8 8 - 18 mg/dL [facility] Creatinine 0.91 0.70 - 1.20 mg/dL [facility] Sodium 138 135 - 145 mmol/L [facility] Potassium 4.0 3.5 - 5.0 mmol/L [facility] Comment: Please note: ??Patients with WBC >100,000 may have falsely elevated Potassium levels. ??For accurate Potassium quantification in these patients send serum separator tube (gold top) for subsequent determinations. ??Contact the Clinical Chemistry Laboratory if there are any questions. Chloride 99 98 - 107 mmol/L [facility] Carbon Dioxide 24 22 - 31 mmol/L [facility] Anion Gap 15 5 - 15 mmol/L [facility] Calcium 9.6 8.5 - 10.5 mg/dL [facility] Protein, Total 7.8 6.1 - 8.0 gm/dL [facility] Albumin 4.6 3.2 - 5.2 gm/dL [facility] Aspartate Aminotransferase 32(H) 0 - 30 unit/L [facility] Alanine Aminotransferase 45(H) 0 - 30 unit/L [facility] Alkaline Phosphatase 97 35 - 105 unit/L [facility] Bilirubin, Total 0.3 0.2 - 1.3 mg/dL [facility] Est Glomerular Filtration Rate 69 >=60 mL/min/1. 73 m?? [facility] Comment: The eGFR was calculated using the CKD-EPI equation. As with all creatinine based estimates of kidney function, eGFR values calculated with the CKD-EPI equation are not accurate in patients with acute kidney failure, extremes of body mass or the acutely ill. http://[employer]/[facility] TULS[facility]kf eGFR 80 >=60 mL/min/1. 73 m?? [facility] Comment: The eGFR was calculated using the CKD-EPI equation. As with all creatinine based estimates of kidney function, eGFR values calculated with the CKD-EPI equation are not accurate in patients with acute kidney failure, extremes of body mass or the acutely ill. http://[employer]/[facility]kf Blood specimen (specimen) 09/16/2019 12:43 PM EDT 09/16/2019 12:52 PM EDT Narrative Resulting Agency Comment Spec In Lab Juan Ny MD CHEMISTRY ORDERABLE S Performing Organization Address City/State/[facility] Co de Phone Number [facility] [place] [place] [address] documented in this encounter Visit Diagnoses Diagnosis Cigarette nicotine dependence without complication Tobacco use disorder Lung nodule Solitary pulmonary nodule Vertigo Dizziness and giddiness documented in this encounter Care Teams Linotype Operator Relationship Specialty Start Date End Date Kathy Wright, SENIOR PHP DEVELOPER PCP - General Family Medicine 04/22/19 documented as of this encounter
--- OUTSIDE RECORDS SUMMARY | 2024-07-28 02:11 | XMS_ITS | Encounter Summary ---
Author Organization [facility] Address [facility] [place] [address] Care Team Providers Care Can Operator Name Role Phone Kathy Wright Butch DANIEL Primary Care Provider [phone] Encounter Details Date Type Department Care Team (Latest Contact Info) Description 09/16/2019 6:56 AM EDT - 09/16/2019 7:29 AM EDT Hospital Encounter [place]ology [place] [address] Nodule of lower lobe of right lung; [...] EDT) Creatinine 0.93 0.70 - 1.20 mg/dL [facility] Est Glomerular Filtration Rate 67 >=60 mL/min/1.7 3 m?? [facility] Comment: The eGFR was calculated using the CKD-EPI equation. As with all creatinine based estimates of kidney function, eGFR values calculated with the CKD-EPI equation are not accurate in patients with acute kidney failure, extremes of body mass or the acutely ill. http://[email or web address]/[facility] CL[facility]EMOREnkf eGFR 78 >=60 mL/min/1.7 3 m?? [facility] Comment: The eGFR was calculated using the CKD-EPI equation. As with all creatinine based estimates of kidney function, eGFR values calculated with the CKD-EPI equation are not accurate in patients with acute kidney failure, extremes of body mass or the acutely ill. [email or web address] Blood specimen (specimen) 09/16/2019 7:20 AM EDT 09/16/2019 8:20 AM EDT Narrative Resulting Agency Comment Spec In Lab Juan Ny MD CHEMISTRY ORDERABLE S [facility] [place] [address] documented in this encounter Visit Diagnoses Diagnosis Nodule of lower lobe of right lung Hypertension, unspecified type documented in this encounter Care Teams Can Operator Relationship Specialty Start Date End Date Kathy Wrigth APRN PCP - General Family Medicine 04/22/19 documented as of this encounter
--- OUTSIDE RECORDS SUMMARY | 2024-07-28 02:11 | XMS_ITS | Encounter Summary ---
Author Organization [facility] Address [facility] [place] [address] Care Team Providers Care Twister Hand Name Role Phone Kathy Wright APRN Primary Care Provider [phone] Encounter Details Date Type Department Care Team (Late st Contact Info) Description 09/21/2019 Notes [place] [address] Juan Ny MD [facility] [place] [address] Social History Tobacco Use Types Packs/Day Years [...] on filedocumented in this encounter Care Teams Twister Hand Relationship Specialty Start Date End Date Kathy Wright APRN PCP - General Family Medicine 04/22/19 documented as of this encounter
--- OUTSIDE RECORDS SUMMARY | 2024-07-28 02:11 | XMS_ITS | Encounter Summary ---
Author Organization [facility] Address [facility] [place] [address] Care Team Providers Care Applications Coordinator Name Role Phone GerardoKathy nicolas Butch DNAIEL Primary Care Provider [phone] Encounter Details Date Type Department Care Team (Latest Contact Info) Description 05/04/2019 9:37 AM EDT - 05/04/2019 11:59 PM EDT Hospital Encounter XRay at [address] [place] [address] Chuck Velazco MD [facility] [place] [address] Closed stable burst fracture of first lumbar [...] below. Electronically signed by: Andra Staton [facility] [place] ([phone]),at 05/04/2019 3:10 PM Chuck Velazco MD IMG DX ORDERABLES documented in this encounter Visit Diagnoses Diagnosis Closed stable burst fracture of first lumbar vertebra, initial encounter documented in this encounter Care Teams Applications Coordinator Relationship Specialty Start Date End Date Kathy Wright, PROJECT CONTROL MANAGER PCP - General Family Medicine 04/22/19 documented as of this encounter
--- OUTSIDE RECORDS SUMMARY | 2024-07-28 02:11 | XMS_ITS | Encounter Summary ---
[place] [address] Care Team Providers Care Human Service Coordinator Name Role Phone Kathy Wright APRN Primary Care Provider [phone] Encounter Details Date Type Department Care Team (Late st Contact Info) Description 09/16/2019 Notes Only Thoracic [place] [address] Christina Almonte Social History Tobacco Use Types [...] filedocumented in this encounter Care Teams Human Service Coordinator Relationship Specialty Start Date End Date Kathy Wright APRN PCP - General Family Medicine 04/22/19 documented as of this encounter
--- OUTSIDE RECORDS SUMMARY | 2024-07-28 02:11 | XMS_ITS | Encounter Summary ---
Author Organization [facility] [place] [address] Care Team Providers Care Brim Setter Name Role Phone Kathy Wright CARE PROGRAM RESIDENT Primary Care Provider [phone] Encounter Details Date Type Department Care Team (Late st Contact Info) Description 09/03/2019 Telephone Pulmonology at [facility] [place] [address] Kellee Wylie MD [facility] [place] [address] Social History Tobacco Use Types Packs/Day Years [...] on filedocumented in this encounter Care Teams Brim Setter Relationship Specialty Start Date End Date Kathy Wright APRN PCP - General Family Medicine 04/22/19 documented as of this encounter
--- OUTSIDE RECORDS SUMMARY | 2024-07-28 02:11 | XMS_ITS | Encounter Summary ---
Author Organization [facility] [place] [address] Care Team Providers Care Cooling Tower Technician Name Role Phone GerardoKathy nicolas Butch DANIEL Primary Care Provider [phone] Reason for Referral * Diagnostic Test (Routine) - Denied Specialty Diagnoses / Procedures Referred By Contac t Referred To Contact Radiology Diagnoses Nodule of lower lobe of right lung Procedures CT Chest w Contrast [facility] Thoracic Surg [address] [place] [address] [facility] [place] [address] Referral ID Status Reason Start Date Expiration Date V isits Requested Visits Authorized [id number] Denied Specialty Service Requested 09/15/2019 09/14/2020 1 0 Reason for Visit * Diagnostic Test (Routine) - Denied Specialty Diagnoses / Procedures Referred By Contac t Referred To Contact Radiology Diagnoses Nodule of lower lobe of right lung Procedures CT Chest w Contrast [facility] Thoracic Surg [address] [place] [phone] [facility] [place] [address] Referral ID Status Reason Start Date Expiration Date V isits Requested Visits Authorized [id number] Denied Specialty Service Requested 09/15/2019 09/14/2020 1 0 Encounter Details Date Type Department Care Team (Latest Contact Info) Description 09/16/2019 7:30 AM EDT - 09/16/2019 11:59 PM EDT Hospital Encounter CT Scan at [facility] [place] [address] Juan Ny MD [facility] [place] [address] Nodule of lower lobe of right lung [...] below. ? Electronically signed by: DECLAN Galloway [facility] ([phone]), at 09/16/2019 11:26 AM Narrative 09/16/2019 11:26 [...] the number below. Juan Ny MD IMG CT ORDERABLES documented [...] mLs documented in this encounter Care Teams Cooling Tower Technician Relationship Specialty Start Date End Date Kathy Wright, POULTRY PROCESSING SUPERVISOR PCP - General Family Medicine 04/22/19 documented as of this encounter
--- OUTSIDE RECORDS SUMMARY | 2024-07-28 02:11 | XMS_ITS | Encounter Summary ---
Author Organization [facility]ily [facility] [place] [address] Care Team Providers Care Vice President Of Manufacturing Name Role Phone Kathy Wright APRN Primary Care Provider [phone] Reason for Referral * Diagnostic Test (Routine) - Closed Specialty Diagnoses / Procedures Referred By Contac t Referred To Contact Radiology Diagnoses Lung nodule Procedures NM PET CT Skull Base to Mid-thigh [place] [address] [place] [address] Referral ID Status Reason Start Date Expiration Date V isits Requested Visits Authorized [id number] Closed Specialty Service Requested 07/14/2019 10/12/2019 1 1 Reason for Visit * Reason Comments Referral * Consultation (Routine) - Specialty Diagnoses / Procedures Referred By Contac t Referred To Contact Pulmonology Diagnoses abnormal chest CT scan Kathy Wright APRN [address] [place] [id number] [facility] [address] [place] [id number] Referral ID Status Reason Start Date Expiration Date V isits Requested Visits Authorized [id number] Consult, [facility] 04/22/2019 04/21/2020 6 6 Encounter Details Date Type Department Care Team (Late st Contact Info) Description 07/02/2019 2:00 PM EDT Office Visit Pulmonology at [facility] [place] [address] Kellee Wylie MD [facility] [place] [address] Lung nodule (Primary Dx); Chronic obstructive pulmonary [...] from the original note were not included. [facility] Section of Pulmonary and Critical Care Medicine Outpatient Consultation Date of Encounter: 07/02/2019 Referring Provider: Kathy Wright APRN [address] [place] [address] Reason for Evaluation: Kathy Wright APRN referred [...] current every day smoker. She carries about 10-[id number]-[id number] history of tobacco inhalation and does use [...] on phone: None Gets together: None Attends religion service: None Active member of club or [...] MYELOP, SSAROAB, SSBLAAB, CYCCITPEP, RF, SCL70, CENTSCR, D6RMXNE, JO1, MYOSITISAB in the last 7068 hours. Acute Phase Reactants No results for input(s): CRP, SEDRATE, IRON, IRONSAT, FERRITIN, FIBRINOGEN, INTERLEUKIN6, [id number], CALPROTECTIN in the last 7068 hours. Imaging: [...] nodule High risk Kellee Wylie MD,[facility] PULMONOLOGY AT [facility] [address] Dept: [phone] Loc: [phone] documented in this encounter Plan of Treatment [...] disease, unspecified COPD type COMPREHENSIVE METABOLIC PANEL Routine 07/02/2019 3:33 PM EDT Chronic obstructive [...] lung nodule TECHNIQUE: Following IV injection of 49-gdpdug-5-deoxyglucose (FDG) a standard uptake of approximately 60 [...] Chest CT 07/02/2019. CT abdomen pelvis or [facility] 04/18/2019. FINDINGS: HEAD/NECK: Normal activity [...] lung nodule TECHNIQUE: Following IV injection of 63-pjyzoy-7-deoxyglucose (FDG) astandard uptake of approximately 60 minutes, [...] Chest CT 07/02/2019. CT abdomen pelvis or [facility] 04/18/2019. FINDINGS: HEAD/NECK: Normal activity [...] (ABNORMAL) Differential, Automated (07/02/2019 3:33 PM EDT) Neutrophil % 49.8 % [facility] Neutrophil Absolute 4.13 1.70 - 6.10 x10(3)/mc L [facility] Lymph % 39.1 % [facility] Lymphocytes Abs 3.2 0.9 - 3.2 x10(3)/mc L [facility] Monocyte % 7.1 % [facility] Monocyte Abs 0.6 0.3 - 0.9 x10(3)/mc L [facility] Eos % 2.6 % [facility] Eosinophils Abs 0.2 0.0 - 0.4 x10(3)/mc L [facility] Basophil % 0.8 % [facility] Baso Absolute 0.1 0.0 - 0.1 x10(3)/mc L [facility] Immature Gran % 0.60 % [facility] Comment: Immature granulocytes(IG's)percentage and absolute count will include metamyelocytes, myelocytes, and promyelocytes. Blood smears from CBCs yielding IG's will be scanned manually for concordance. If this scan disagrees with the automated IG or if promyelocytes are noted, a manual differential will be performed. Immature Gran Absolute 0.05(H) 0.00 - 0.04 x10(3)/mc L [facility] Blood specimen (specimen) 07/02/2019 3:33 PM EDT 07/02/2019 3:58 PM EDT Narrative Resulting Agency Comment Spec In Lab Kellee Cagle MD HEMATOLOGY ORDERA BLES [facility] [place] [address] * Hemogram (07/02/2019 3:33 PM EDT) White Blood Cell 8.3 4.0 - 9.5 x10(3)/[facility] Red Blood Cell 4.67 4.00 - 5.21 x10(6)/[facility] Hemoglobin 13.8 11.7 - 15.5 gm/dL [facility] Hematocrit 42.0 35.7 - 45.8 % [facility] Mean Cell Volume 89.9 82.6 - 94.4 fL [facility] Mean Cell Hemoglobin 29.6 27.1 - 32.0 pg [facility] Mean Cell Hemoglobin Concentration 32.9 31.7 - 35.0 gm/dL [facility] Platelet 265 145 - 357 x10(3)/[facility] RDW Standard Deviation 43.4 37.0 - 46.0 [facility] RDW coefficient of variation 13.2 11.5 - 14.1 % [facility] Mean Platelet Volume 9.5 7.6 - 12.9 [facility] NRBC% auto 0.0 % [facility] NRBC Absolute 0.000 0.000 - 0.000 x10(3)/[facility] Blood specimen (specimen) 07/02/2019 3:33 PM EDT 07/02/2019 3:58 PM EDT Narrative Resulting Agency Comment Spec In Lab Kellee Cagle MD HEMATOLOGY ORDERA KEDAR [facility] [place] [address] * (ABNORMAL) Comprehensive metabolic panel (non-fasting) (07/02/2019 3:33 PM EDT) Glucose 85 65 - 199 mg/dL [facility] Comment:Diabetes: >=200 mg/d L plus symptoms Blood Urea Nitrogen 10 8 - 18 mg/dL [facility] Creatinine 0.82 0.70 - 1.20 mg/dL [facility] Sodium 140 135 - 145 mmol/L [facility] Potassium 3.9 3.5 - 5.0 mmol/L [facility] Comment: Please note: ??Patients with WBC >100,000 may have falsely elevated Potassium levels. ??For accurate Potassium quantification in these patients send serum separator tube (gold top) for subsequent determinations. ??Contact the Clinical Chemistry Laboratory if there are any questions. Chloride 102 98 - 107 mmol/L [facility] Carbon Dioxide 23 22 - 31 mmol/L [facility] Anion Gap 15 5 - 15 mmol/L [facility] Calcium 9.9 8.5 - 10.5 mg/dL [facility] Protein, Total 7.7 6.1 - 8.0 gm/dL [facility] Albumin 4.4 3.2 - 5.2 gm/dL [facility] Aspartate Aminotransferase 29 0 - 30 unit/L [facility] Alanine Aminotransferase 33(H) 0 - 30 unit/L [facility] Alkaline Phosphatase 94 35 - 105 unit/L [facility] Bilirubin, Total 0.3 0.2 - 1.3 mg/dL [facility] Est Glomerular Filtration Rate 79 >=60 mL/min/1. 73 m?? [facility] Comment: The eGFR was calculated using the CKD-EPI equation. As with all creatinine based estimates of kidney function, eGFR values calculated with the CKD-EPI equation are not accurate in patients with acute kidney failure, extremes of body mass or the acutely ill. http://[email or web address] eGFR 91 >=60 mL/min/1. 73 m?? [facility] Comment: The eGFR was calculated using the CKD-EPI equation. As with all creatinine based estimates of kidney function, eGFR values calculated with the CKD-EPI equation are not accurate in patients with acute kidney failure, extremes of body mass or the acutely ill. [email or web address] Blood specimen (specimen) 07/02/2019 3:33 PM EDT 07/02/2019 3:58 PM EDT Narrative Resulting Agency Comment Spec In Lab Kellee Cagle MD CHEMISTRY ORDERAB LES Performing Organization Address City/State/[facility] Co de Phone Number [facility] [place] [address] documented in this encounter Visit Diagnoses Diagnosis Lung nodule- Primary Solitary pulmonary nodule Chronic obstructive pulmonary disease, unspecified COPD type Cigarette nicotine dependence in remission Tobacco use disorder Lung nodule Solitary pulmonary nodule Chronic obstructive pulmonary disease, unspecified COPD type documented in this encounter Care Teams Vice President Of Manufacturing Relationship Specialty Start Date End Date Kathy Wright APRN PCP - General Family Medicine 04/22/19 documented as of this encounter
--- OUTSIDE RECORDS SUMMARY | 2024-07-28 02:11 | XMS_ITS | Encounter Summary ---
Author Organization [facility] Address [facility] [place] [address] Care Team Providers Care Top Coater Name Role Phone Kathy Wright MARÍA Primary Care Provider [phone] Reason for Referral * Diagnostic Test (Routine) - Closed Specialty Diagnoses / Procedures Referred By Contac t Referred To Contact Cardiology Diagnoses Cigarette nicotine dependence without complication Lung nodule Vertigo Procedures Echocardiogram Transthoracic([facility]) Juan Ny MD [facility] [place] [address] [facility] [place] [address] Referral ID Status Reason Start Date Expiration Date V isits Requested Visits Authorized [id number] Closed Specialty Service Requested 09/17/2019 12/16/2019 1 1 Reason for Visit * Diagnostic Test (Routine) - Closed Specialty Diagnoses / Procedures Referred By Contac t Referred To Contact Cardiology Diagnoses Cigarette nicotine dependence without complication Lung nodule Vertigo Procedures Echocardiogram Transthoracic([facility]) Juan Ny MD [facility] [place] [address] [facility] [place] [address] Referral ID Status Reason Start Date Expiration Date V isits Requested Visits Authorized [id number] Closed Specialty Service Requested 09/17/2019 12/16/2019 1 1 Encounter Details Date Type Department Care Team (Latest Contact Info) Description 09/22/2019 1:38 PM EDT - 09/22/2019 11:59 PM EDT Hospital Encounter Non-Invasive [place]iology [place] [address] Juan Ny MD [facility] [place] [address] Cigarette nicotine dependence without complication; Lung nodule; [...] W CONTRAST (09/22/2019 3:05 PM EDT) Pathologist [facility] EF 64 HEARTLAB SYSTEM Anatomical Region Laterality Modality Other 09/22/2019 Narrative 09/22/2019 5:12 PM EDT Procedure: ?Transthoracic Echocardiogram Patient: ?KADEN Puente ? (Age): 1960(59y) Med Rec#: ? [id number] ?Sex: ?F ? [place] [facility] [place]Ht / Wt: ??155(cm)/68(kg) Pt. Loc: ?Echo Lab ?BSA: ?1.67 Study Date: ?? 09/22/2019 ?Pt. Type: Outpatient Tape: ? Referring: DEBRA Reading: Alejandro Oakley ([id number]) Bariatric Surgeon: Esteban Solorio [facility] Nurse: Kailyn Garcia Diagnosis: [...] E-wave Vmax ?0.4 ?m/sec ? MV deceleration [id number] ?msec ? MV A-wave Vmax ?0.6 ?m/sec [...] ? Mid-Inferior ?Normal ? Mid-Inferoseptal ?Normal ? [place]-Septal ? Normal ? [place]-Anterior ? Normal ? [place]-Lateral ?Normal ? [place]-Inferior ? Normal ? [place]-Tip ?Normal ? This report has been electronically signed by: Alejandro Oakley MD ? 09/22/2019 17:11:03 Images reviewed and interpretation verified [facility] Cardiac Ultrasound Laboratory Procedure Note Alejandro Oakley MD - 09/22/2019 Procedure: Transthoracic Echocardiogram Patient: KADEN Puente DOB(Age): 1960(59y) Med Rec#: [id number] Sex: F [place] [facility] [place] Ht / Wt: 155(cm)/68(kg) Pt. Loc: Echo Lab BSA: 1.67 Study Date: 09/22/2019 Pt. Type: Outpatient Tape: Referring: DEBRA Reading: Alejandro Oakley ([id number]) Bariatric Surgeon: Esteban Solorio [facility] Nurse: Kailyn Garcia Diagnosis: [...] MV E-wave Vmax 0.4 m/sec MV deceleration [id number] msec MV A-wave Vmax 0.6 m/sec MV [...] Normal Mid-Posterolateral Normal Mid-Inferior Normal Mid-Inferoseptal Normal [place]-Septal Normal [place]-Anterior Normal [place]-Lateral Normal [place]-Inferior Normal [place]-Tip Normal This report has been electronically signed by: Alejandro Oakley MD 09/22/2019 17:11:03 Images reviewed and interpretation verified [facility] Cardiac Ultrasound Laboratory Juan Ny MD ECHO [...] mLs documented in this encounter Care Teams Top Coater Relationship Specialty Start Date End Date Kathy Wright APRN PCP - General Family Medicine 04/22/19 documented as of this encounter
--- OUTSIDE RECORDS SUMMARY | 2024-07-28 02:11 | XMS_ITS | Encounter Summary ---
[place] [address] Care Team Providers Care Administrative Services Director Name Role Phone Kathy Wright APRN Primary Care Provider [phone] Encounter Details Date Type Department Care Team (Late st Contact Info) Description 09/17/2019 Telephone [place] [address] Bebe Reddy Social History Tobacco Use Types [...] Miscellaneous Notes * Telephone Encounter - Bebe eRddy LNA - 09/17/2019 1:58 PM EDT Call made message left letting pt know her echo is scheduled here @ [facility] on 09/22 @ 2PM documented in this encounter Plan of Treatment Not on file documented as of this encounter Visit Diagnoses Not on filedocumented in this encounter Care Teams Administrative Services Director Relationship Specialty Start Date End Date Kathy Wright APRN PCP - General Family Medicine 04/22/19 documented as of this encounter
--- OUTSIDE RECORDS SUMMARY | 2024-07-28 02:11 | XMS_ITS | Encounter Summary ---
[place] [address] Care Team Providers Care Scalloper Name Role Phone Kathy Wright APRN Primary Care Provider [phone] Encounter Details Date Type Department Care Team (Late st Contact Info) Description 08/24/2019 Telephone [place] [address] Kip Wood II Social History Tobacco Use [...] on filedocumented in this encounter Care Teams Scalloper Relationship Specialty Start Date End Date Kathy Wright APRN PCP - General Family Medicine 04/22/19 documented as of this encounter
--- OUTSIDE RECORDS SUMMARY | 2024-07-28 02:11 | XMS_ITS | Encounter Summary ---
Author Organization [facility] Address [facility] [place] [address] Care Team Providers Care Back Office Medical Assistant Name Role Phone GerardoKathy nicolas MARÍA Primary Care Provider [phone] Encounter Details Date Type Department Care Team (Late st Contact Info) Description 08/05/2019 Telephone Pulmonary [facility] [place] [address] Kellee Wylie MD [facility] [place] [address] Social History Tobacco Use Types Packs/Day Years [...] on filedocumented in this encounter Care Teams Back Office Medical Assistant Relationship Specialty Start Date End Date Kathy Wright, MARÍA PCP - General Family Medicine 04/22/19 documented as of this encounter
--- OUTSIDE RECORDS SUMMARY | 2024-07-28 02:11 | XMS_ITS | Encounter Summary ---
[facility] [place] [address] Care Team Providers Care Railway Shunter Name Role Phone Kathy Wright Butch DANIEL Primary Care Provider [phone] Encounter Details Date Type Department Care Team (Latest Contact Info) Description 09/16/2019 12:00 PM EDT Clinical [place] [address] Cigarette nicotine dependence without complication; Lung nodule; [...] (Bezet) 479 ms MUSE SYSTEM Calculated P [place] 52 degrees MUSE SYSTEM Calculated R [place] 56 degrees MUSE SYSTEM Calculated T [place] 40 degrees MUSE SYSTEM INTERPRETATION Normal sinus rhythm RSR' or QR pattern in V1 suggests right ventricular conduction delay Otherwise normal ECG No previous ECGs available Confirmed by MD Danyelle, Mehran Tristan ([id number]) on 09/16/2019 4:36:55 PM MUSE SYSTEM 09/16/2019 12:5 1 PM EDT 09/16/2019 4:36 PM EDT Juan Ny MD ECG ORDERABLES MUSE SYSTEM documented in this encounter Visit Diagnoses Diagnosis Cigarette nicotine dependence without complication Tobacco use disorder Lung nodule Solitary pulmonary nodule Vertigo Dizziness and giddiness documented in this encounter Care Teams Railway Shunter Relationship Specialty Start Date End Date Kathy Wright APRN PCP - General Family Medicine 04/22/19 documented as of this encounter
--- OUTSIDE RECORDS SUMMARY | 2024-07-28 02:11 | XMS_ITS | Encounter Summary ---
[place] [address] Care Team Providers Care Gang Worker Name Role Phone Kathy Wright MARÍA Primary Care Provider [phone] Encounter Details Date Type Department Care Team (Late st Contact Info) Description 09/16/2019 Notes [place] [address] Love Verdin Social History Tobacco Use Types [...] 09/16/2019 1:59 PM EDT Consent for the [facility] Biobank protocol [id number] titled Total Cancer Care Protocol: Lifetime partnership [...] consent. The consent will be scannedinto the [facility] medical record. A copy of the signed consent was provided to the patient. The originalis given to the [facility] Machinist Mate to file with the study documentation. 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 [...] consent. The consent will be scannedinto the [facility] medical record. A copy of the signed consent was provided to the patient. The originalis given to the [facility] to file with the study documentation. documented in this encounter Plan of Treatment Not on file documented as of this encounter Visit Diagnoses Not on filedocumented in this encounter Care Teams Gang Worker Relationship Specialty Start Date End Date Kathy Wright APRN PCP - General Family Medicine 04/22/19 documented as of this encounter
--- OUTSIDE RECORDS SUMMARY | 2024-07-28 02:11 | XMS_ITS | Encounter Summary ---
Author Organization [facility] Address [facility] [place] [address] Care Team Providers Care Consulting Hr Professional Name Role Phone Kathy Wright STRUCTURAL METAL WORKER Primary Care Provider [phone] Reason for Visit * Auth/Cert Specialty Diagnoses [...] Expiration Date Visits Re quested Visits Authorized [id number] 1 1 Encounter Details Date Type Department Care Team (Late st Contact Info) Description 10/06/2019 11:58 AM EST - 10/06/2019 3:27 PM EST Surgery [place] [address] Juan Tran MD [facility] [place] [address] @ROBOT XI THORACOSCOPY,SURGICAL, W\LOBECTOMY,TOTAL OR SEGMENTAL (WRVU [...] Primary * Pau Guerrero PA - Physician Senior Piping Designer * Tan Quigley MD - Resident Procedure: [...] prior to today's visit. ??As you know, .??[facility]??is a 59 y.o.??female that in??May??2019 fell backward while opening a drawer, and she was alsohaving issues with abdominal pain around that time. A CT Abd/Pelvis??was performed 04/18/19??which revealed??colitis, acute burst fracture of L1, as well as 16 mm focal opacity of RLL. A dedicated CT Chest was performed??07/02/18??which demonstrated stable bxlo-do-xqpl nodules in the RLL, largest measuring 9 [...] up by her PCP and neurology in [facility]), reflux symptoms and occasional nausea.??She??denies fevers, night sweats, or chest pain on exertion. ??She??has lost no weight recently.?She??is able to walk on the flat with the assistanceof a cane, and up a flight??of stairs??however this takes a while.??Her??ECOG performance status??is 1 - Symptomatic but completely ambulatory.?? Hospital Course: Marleni Arreola was admitted to [facility] on 10/06/2019 via the Same Day [...] a nurse in the Thoracic Clinic at [phone]. After hours or on weekends or holidays please call: [phone] and ask to speak to the Thoracic [...] the Thoracic Clinic or the Thoracic Surgeon building construction estimator after hours. Please take over the counter [...] Expires XR Chest PA & Lateral (Generic) [[id number] Custom] 10/22/2019 (Approximate) 04/22/2020 Process Instructions: Scheduling Instructions: Questions: Where will study be performed?: [facility] Radiology Portable exam?: Reason for exam and clinical history: s/p basilar RLL segmenectomy Other pertinent information: Stat read required?: Date of injury if applicable: Requested Time: Provider Contact Information: Primary Care Provider: Kathy Wright, STRUCTURAL METAL WORKER [phone] Discharge References/Attachments: Discharge References/Attachments None For questions [...] a nurse in the Thoracic Clinic at [phone]. After hours or on weekends or holidays please call: [phone] and ask to speak to the Thoracic [...] the Thoracic Clinic or the Thoracic Surgeon building construction estimator after hours. Please take over the counter [...] LEA on receiving unit; patient awaiting transfer; REFINING MACHINE OPERATORVENU ortega. * Tan Quigley MD - 10/07/2019 [...] to water seal, nasal airway placed by REFINING MACHINE OPERATOR for airway obstruction, pt in no apparent [...] Chest was performed 07/02/18 which demonstrated stable mdum-jt-yzme nodules in the RLL, largest measuring 9 [...] Quigley MD 10/06/2019 Thoracic Surgery Service Pager [phone] Associated attestation - Juan Tran MD - [...] Operative Note Patient Name: Marleni Arreola : [id number] MR#: [id number] Case Date: 10/06/2019 Surgeon: Surgeon(s) and Role: * Juan Tran MD - Primary * Pau Guerrero PA - Physician Senior Piping Designer * Jafferji, Mohammad S, MD - Resident Preoperative diagnosis: right lower lobe lung nodule Postoperative diagnosis: right lower lobe lung cancer Procedure(s) (LRB): @ROBOT XI THORACOSCOPY,SURG; W/DX WEDGE RESC W/ANATOMIC LUNG RESC (WRVU 3) (Right) BRONCHOSCOPY, DIAGNOSTIC (WRVU 2.78) (N/A) MODIFIER ROBOT,PushforINCI XI (N/A) NERVE BLOCK, INTERCOSTAL NERVE, MULTIPLE [...] Info Order Time SPECIMEN TO PATHOLOGY OR11 [id number] right lower lobe lung nodule Right lower lobe wedge excision YES, Please perform frozen section 10/06/2019 3:49 PM Number of tissue samples (in container) 1 Time specimen removed from patient: 3:48 PM SPECIMEN TO PATHOLOGY OR11 68242 right lower lobe lung nodule Right lower lobe wedge posterior excision YES, Please perform frozen section 10/06/2019 4:06 PM Number of tissue samples (in container) 1 Time specimen removed from patient: 4:06 PM PATHOLOGY ORDER UPDATE 10/06/2019 4:13 PM Additional information: Additional Info Enter requested changes: stitch chen nodule eD-H Order Id number [id number] SPECIMEN TO PATHOLOGY [id number] right lower lobe lung nodule 12R lymph node in fissure excision 10/06/2019 4:15 PM Number of tissue samples (in container) 1 Time specimen removed from patient: 4:15 PM SPECIMEN TO PATHOLOGY right lower lobe lung nodule 12R lymph node in fissure #2 excision 10/06/2019 4:19 PM Number of tissue samples (in container) 1 Time specimen removed from patient: 4:19 PM SPECIMEN TO PATHOLOGY 29982 right lower lobe lung nodule 8R Lymph Node excision 10/06/2019 4:25 PM Number of tissue samples (in container) 1 Time specimen removed from patient: 4:25 PM SPECIMEN TO PATHOLOGY 11442 right lower lobe lung nodule level 7 excision 10/06/2019 4:27 PM Number of tissue samples (in container) 1 Time specimen removed from patient: 4:27 PM PATHOLOGY ORDER UPDATE 10/06/2019 4:31 PM Additional information: Additional Info Enter requested changes: level 7 lymph node packet eD-H Order Id number [id number] SPECIMEN TO PATHOLOGY 17714 right lower lobe lung nodule 12R lymph node posterior excision 10/06/2019 4:54 PM Number of tissue samples (in container) 1 Time specimen removed from patient: 4:54 PM SPECIMEN TO PATHOLOGY OR 11 49655 right lower lobe lung nodule 10R lymph node packet excision 10/06/2019 5:26 PM Time specimen removed from patient: 5:25 PM Number of tissue samples (in container) 1 SPECIMEN TO PATHOLOGY OR 11 84252 right lower lobe lung nodule 4R lymph node packet excision No 10/06/2019 5:29 PM Time specimen removed from patient: 5:29 PM Number of tissue samples (in container) 1 Biospecimen to store? No SPECIMEN TO PATHOLOGY OR 11 84547 right lower lobe lung nodule completion RLL [...] a standard fashion under direct vision. The [employer] robot was brought onto the field and [...] patient removed from the field. A 28 Bhutanese chest tube was placed through the initial [...] Operative Note Patient Name: Marleni Arreola : [id number] MR#: [id number] Case Date: 10/06/2019 Surgeon: Surgeon(s) and Role: * Juan Tran MD - Primary * Pau Guerrero PA - Physician Senior Piping Designer * Tan Quigley MD - Resident Preoperative [...] Info Order Time SPECIMEN TO PATHOLOGY OR11 [id number] right lower lobe lung nodule Right lower lobe wedge excision YES, Please perform frozen section 10/06/2019 3:49 PM Number of tissue samples (in container) 1 Time specimen removed from patient: 3:48 PM SPECIMEN TO PATHOLOGY OR11 88417 right lower lobe lung nodule Right lower lobe wedge posterior excision YES, Please perform frozen section 10/06/2019 4:06 PM Number of tissue samples (in container) 1 Time specimen removed from patient: 4:06 PM PATHOLOGY ORDER UPDATE 10/06/2019 4:13 PM Additional information: Additional Info Enter requested changes: stitch chen nodule eD-H Order Id number [id number] SPECIMEN TO PATHOLOGY [id number] right lower lobe lung nodule 12R lymph node in fissure excision 10/06/2019 4:15 PM Number of tissue samples (in container) 1 Time specimen removed from patient: 4:15 PM SPECIMEN TO PATHOLOGY right lower lobe lung nodule 12R lymph node in fissure #2 excision 10/06/2019 4:19 PM Number of tissue samples (in container) 1 Time specimen removed from patient: 4:19 PM SPECIMEN TO PATHOLOGY 42595 right lower lobe lung nodule 8R Lymph Node excision 10/06/2019 4:25 PM Number of tissue samples (in container) 1 Time specimen removed from patient: 4:25 PM SPECIMEN TO PATHOLOGY 95450 right lower lobe lung nodule level 7 excision 10/06/2019 4:27 PM Number of tissue samples (in container) 1 Time specimen removed from patient: 4:27 PM PATHOLOGY ORDER UPDATE 10/06/2019 4:31 PM Additional information: Additional Info Enter requested changes: level 7 lymph node packet eD-H Order Id number [id number] SPECIMEN TO PATHOLOGY 08263 right lower lobe lung nodule 12R lymph node posterior excision 10/06/2019 4:54 PM Number of tissue samples (in container) 1 Time specimen removed from patient: 4:54 PM SPECIMEN TO PATHOLOGY OR 11 43730 right lower lobe lung nodule 10R lymph node packet excision 10/06/2019 5:26 PM Time specimen removed from patient: 5:25 PM Number of tissue samples (in container) 1 SPECIMEN TO PATHOLOGY OR 11 [id number] right lower lobe lung nodule 4R lymph node packet excision No 10/06/2019 5:29 PM Time specimen removed from patient: 5:29 PM Number of tissue samples (in container) 1 Biospecimen to store? No SPECIMEN TO PATHOLOGY OR 11 57568 right lower lobe lung nodule completion RLL [...] 10/06/2019 3:48 PM EST Thoracoscopy Surg Lobectomy (26436) 10/06/2019 2:49 PM EST Lung nodule Thoracoscopy With Mediastinal And Regional Lymphadenectomy 10/06/2019 2:49 PM EST Lung nodule Injection Anes Agent &/ Steroid Intercostal Nerve Ea Addl Level (72994) 10/06/2019 2:49 PM EST Lung nodule MODIFIER ROBOT,AVELINOI XI 10/06/2019 2:49 PM EST Lung nodule Bronchoscopy, Diagnostic (38251) 10/06/2019 2:49 PM EST Lung nodule Thoracoscopy [...] below. ? Electronically signed by: Savanna Callejas [facility] ([phone]), at 10/21/2019 10:55 AM Narrative 10/21/2019 10:55 [...] number below. Electronically signed by: Savanna Callejas [facility]([phone]), at 10/21/2019 10:55 AM Juan Tran MD [...] below. ? Electronically signed by: Jyotsna Bullock [facility] ([phone]), at 10/07/2019 4:39 PM Narrative 10/07/2019 4:39 [...] number below. Electronically signed by: Jyotsna Bullock [facility]([phone]), at 10/07/2019 4:39 PM Juan Tran MD [...] below. ? Electronically signed by: Jyotsna Bullock [facility] ([phone]), at 10/07/2019 2:36 PM Narrative 10/07/2019 2:36 [...] number below. Electronically signed by: Jyotsna Bullock [facility]([phone]), at 10/07/2019 2:36 PM Juan Tran MD IMG DX ORDERABLES * (ABNORMAL) Differential, Automated (10/07/2019 7:26 AM EST) Neutrophil % 85.1 % [facility] Neutrophil Absolute 10.38(H) 1.70 - 6.10 x10(3)/[facility] Lymph % 10.2 % [facility] Lymphocytes Abs 1.2 0.9 - 3.2 x10(3)/[facility] Monocyte % 4.3 % [facility] Monocyte Abs 0.5 0.3 - 0.9 x10(3)/[facility] Eos % 0.0 % [facility] Eosinophils Abs 0.0 0.0 - 0.4 x10(3)/[facility] Basophil % 0.2 % [facility] Baso Absolute 0.0 0.0 - 0.1 x10(3)/[facility] Immature Gran % 0.20 % [facility] Comment: Immature granulocytes(IG's)percentage and absolute count will include metamyelocytes, myelocytes, and promyelocytes. Blood smears from CBCs yielding IG's will be scanned manually for concordance. If this scan disagrees with the automated IG or if promyelocytes are noted, a manual differential will be performed. Immature Gran Absolute 0.03 0.00 - 0.04 x10(3)/ L [facility] Blood specimen (specimen) 10/07/2019 7:26 AM EST 10/07/2019 7:31 AM EST Narrative Resulting Agency Comment Spec In Lab Robert You MD HEMATOLOGY ORDERABLE S [facility] [place] [address] * (ABNORMAL) Hemogram (10/07/2019 7:26 AM EST) White Blood Cell 12.2(H) 4.0 - 9.5 x10(3)/ L [facility] Red Blood Cell 3.47(L) 4.00 - 5.21 x10(6)/ L [facility] Hemoglobin 10.5(L) 11.7 - 15.5 gm/dL [facility] Hematocrit 31.3(L) 35.7 - 45.8 % [facility] Mean Cell Volume 90.2 82.6 - 94.4 fL [facility] Mean Cell Hemoglobin 30.3 27.1 - 32.0 pg [facility] Mean Cell Hemoglobin Concentration 33.5 31.7 - 35.0 gm/dL [facility] Platelet 187 145 - 357 x10(3)/[facility] RDW Standard Deviation 42.7 37.0 - 46.0 fL [facility] RDW coefficient of variation 13.0 11.5 - 14.1 % [facility] Mean Platelet Volume 10.3 7.6 - 12.9 fL [facility] NRBC% auto 0.0 % [facility] NRBC Absolute 0.000 0.000 - 0.000 x10(3)/[facility] Blood specimen (specimen) 10/07/2019 7:26 AM EST 10/07/2019 7:31 AM EST Narrative Resulting Agency Comment Spec In Lab Robert You MD HEMATOLOGY ORDERABLE S [facility] [place] [address] * (ABNORMAL) Basic Metabolic Panel (non-fasting) (10/07/2019 7:26 AM EST) Glucose 145 65 - 199 mg/dL [facility] Comment:Diabetes: >=200 mg/d L plus symptoms Blood Urea Nitrogen 18 8 - 18 mg/dL [facility] Creatinine 1.08 0.70 - 1.20 mg/dL [facility] Sodium 130(L) 135 - 145 mmol/L [facility] Potassium 4.0 3.5 - 5.0 mmol/L [facility] Comment: Please note: ??Patients with WBC >100,000 may have falsely elevated Potassium levels. ??For accurate Potassium quantification in these patients send serum separator tube (gold top) for subsequent determinations. ??Contact the Clinical Chemistry Laboratory if there are any questions. Chloride 94(L) 98 - 107 mmol/L [facility] Carbon Dioxide 21(L) 22 - 31 mmol/L [facility] Anion Gap 15 5 - 15 mmol/L [facility] Calcium 8.2(L) 8.5 - 10.5 mg/dL [facility] Est Glomerular Filtration Rate 56(L) >=60 mL/min/1. 73 m?? [facility] Comment: The eGFR was calculated using the CKD-EPI equation. As with all creatinine based estimates of kidney function, eGFR values calculated with the CKD-EPI equation are not accurate in patients with acute kidney failure, extremes of body mass or the acutely ill. [email or web address] CITYnkf eGFR 65 >=60 mL/min/1. 73 m?? [facility] Comment: The eGFR was calculated using the CKD-EPI equation. As with all creatinine based estimates of kidney function, eGFR values calculated with the CKD-EPI equation are not accurate in patients with acute kidney failure, extremes of body mass or the acutely ill. [email or web address] Blood specimen (specimen) 10/07/2019 7:26 AM EST 10/07/2019 7:31 AM EST Narrative Resulting Agency Comment Spec In Lab Juan Tran MD CHEMISTRY ORDERABLE S [facility] [place] [address] * XR Chest PA & Lateral (Generic) [...] below. ? Electronically signed by: Tracee Leavitt [facility] ([phone]), at 10/07/2019 4:23 AM Narrative 10/07/2019 4:23 [...] contact the number below. Electronically signed by: Tracee Leavitt [facility]([phone]), at 10/07/2019 4:23 AM Juan Tran MD IMG DX ORDERABLES [...] PM EST 10/06/2019 6:00 PM EST Narrative [facility] - 10/06/2019 6:00 PM EST Specimen requisition ordered. ??Separate Pathology report to follow Resulting Agency Comment Spec In Lab Juan Tran MD PATHOLOGY/CYTOLOGY ORDERABLES Performing Organization Address [facility] Co de Phone Number [place] [phone] * Specimen to Pathology (10/06/2019 5:29 PM EST) AP Specimen 10/06/2019 5:29 PM EST 10/06/2019 6:00 PM EST Narrative [facility] - 10/06/2019 6:00 PM EST Specimen requisition ordered. ??Separate Pathology report to follow Resulting Agency Comment Spec In Lab Juan Tran MD PATHOLOGY/CYTOLOGY ORDERABLES Performing Organization Address [facility] Co de Phone Number [place] [phone] * Specimen to Pathology (10/06/2019 5:26 PM EST) AP Specimen 10/06/2019 5:26 PM EST 10/06/2019 6:00 PM EST Narrative [facility] - 10/06/2019 6:00 PM EST Specimen requisition ordered. ??Separate Pathology report to follow Resulting Agency Comment Spec In Lab Juan Tran MD PATHOLOGY/CYTOLOGY ORDERABLES Performing Organization Address [facility]/State/[place] [address] * Specimen to Pathology (10/06/2019 4:54 PM EST) AP Specimen 10/06/2019 4:54 PM EST 10/06/2019 6:00 PM EST Narrative [facility] - 10/06/2019 6:00 PM EST Specimen requisition ordered. ??Separate Pathology report to follow Resulting Agency Comment Spec In Lab Juan Tran MD PATHOLOGY/[place] [address] * Specimen to Pathology (10/06/2019 4:27 PM EST) AP Specimen 10/06/2019 4:27 PM EST 10/06/2019 6:00 PM EST Narrative [facility] - 10/06/2019 6:00 PM EST Specimen requisition ordered. ??Separate Pathology report to follow Resulting Agency Comment Spec In Lab Juan Tran MD PATHOLOGY/[place] [address] * Specimen to Pathology (10/06/2019 4:25 PM EST) AP Specimen 10/06/2019 4:25 PM EST 10/06/2019 6:00 PM EST Narrative [facility] - 10/06/2019 6:00 PM EST Specimen requisition ordered. ??Separate Pathology report to follow Resulting Agency Comment Spec In Lab Juan Tran MD PATHOLOGY/[place] [address] * Specimen to Pathology (10/06/2019 4:20 PM EST) AP Specimen 10/06/2019 4:20 PM EST 10/06/2019 6:00 PM EST Narrative [facility] - 10/06/2019 6:00 PM EST Specimen requisition ordered. ??Separate Pathology report to follow Resulting Agency Comment Spec In Lab Authorizing Provider Result Amadou Tran MD PATHOLOGY/CYTOLOGY ORDERABLES Performing Organization Address [facility] Co de Phone Number [facility] [place] [address] * Specimen to Pathology (10/06/2019 4:15 PM EST) AP Specimen 10/06/2019 4:15 PM EST 10/06/2019 6:00 PM EST Narrative [facility] - 10/06/2019 6:00 PM EST Specimen requisition ordered. ??Separate Pathology report to follow Resulting Agency Comment Spec In Lab Authorizing Provider Result Amadou Tran MD PATHOLOGY/CYTOLOGY ORDERABLES Performing Organization Address [facility] de Phone Number [facility] [place] [address] * Specimen to Pathology (10/06/2019 4:07 PM EST) AP Specimen 10/06/2019 4:07 PM EST 10/06/2019 4:07 PM EST Narrative [facility] - 10/06/2019 4:07 PM EST Specimen requisition ordered. ??Separate Pathology report to follow Authorizing Provider Result Amadou Tran MD PATHOLOGY/CYTOLOGY ORDERABLES Performing Organization Address [facility] Co de Phone Number [facility] [place] [address] * (ABNORMAL) BLOOD GAS 2 ARTERIAL (10/06/2019 3:51 PM EST) pH, Arterial 7.43 7.35 - 7.45 [facility] PCO2, Arterial 37 35 - 45 mmHg [facility] PO2, Arterial 64(L) 85 - 104 mmHg [facility] Bicarbonate, Arterial 23.8 20.0 - 26.0 mmol/L [facility] Base Excess, Arterial -0.5 -3.0 - 3.0 mmol/L [facility] Hgb Blood Gas 12.6 11.7 - 15.5 gm/dL [facility] Oxyhemoglobin, Arterial 92.8(L) 94.0 - 97.0 % [facility] Carboxyhemoglob in, Arterial 0.2 % [facility] Comment: Nonsmokers: 0.5-1.5% COHB Smokers: Variable, but usually less than 10% Toxic: 20-30% COHB Lethal: Greater than 60% COHB Methemoglobin, Arterial 0.3 <=1.5 % [facility] Na Whole Blood 136 135 - 145 mmol/L [facility] K Whole Blood 3.4(L) 3.5 - 5.0 mmol/L [facility] Comment: Please note: Patients with WBC >100,000 may have falsely elevated Potassium levels. Contact the Clinical Chemistry Laboratory if there are any questions. ICa Whole Blood 1.17 1.15 - 1.33 mmol/L [facility] Comment: Note: ??Total bilirubin higher than 20 mg/dL may lead to falsely low ionized calcium. CL Whole Blood 102 98 - 107 mmol/L [facility] Gluc Whole Bld 122 65 - 199 mg/dL [facility] Comment:Diabetes: >=200 mg/d L plus symptoms. Lactate WB 2.0 0.5 - 2.2 mmol/L [facility] FIO2 Art 77 % [facility] PF Ratio Art 83 [facility] Blood specimen (specimen) 10/06/2019 3:51 PM EST 10/06/2019 3:51 PM EST Juan Tran MD POINT OF CARE TEST ORDERABLES [facility] [place] [address] * Specimen to Pathology (10/06/2019 3:49 PM EST) AP Specimen 10/06/2019 3:49 PM EST 10/06/2019 3:49 PM EST Narrative [facility] - 10/06/2019 3:49 PM EST Specimen requisition ordered. ??Separate Pathology report to follow Juan Tran MD PATHOLOGY/CYTOLOGY ORDERABLES Performing Organization Address [facility] Co de Phone Number [facility] [place] [address] * Solid Tumor NGS Panel (10/06/2019 3:48 PM EST) Tissue specimen (specimen) 10/06/2019 3:48 PM EST 10/19/2019 1:05 PM EST Narrative Resulting Agency Comment Spec In Lab Juan Tran MD PATHOLOGY/CYTOLOGY ORDERABLES Performing Organization Address [facility] Co de Phone Number [facility] [place] [address] * Surgical Pathology Report (10/06/2019 3:48 PM EST) Final Diagnosis [id number] ? Location: [facility]; [facility]; The signing pathologist has (i) examined the [...] The assay was performed according to the traffic representative's instructions using Anti-PD-L1 (22C3, pharmDX) antibody. Electronically signed by: ??Israel Leiva MD Verified: ??10/21/2019 ?Pathologist Performed at: ??-[facility] Dept. of Pathology, [place], [place] ?Surgical Pathology DIAGNOSIS A - Right [...] [facility] [place] Dept. [place], [place], [place] ADDITIONAL STUDIES Immunohistochemistry Studies: Formalin-fixed, paraffin-embedded [...] submitted for frozen section: The entire nodule. [employer] sections in 3 cassettes as follows: ?A1: [...] following tissue is submitted for frozen section: [employer] section of the mass. . SPECIMEN PROCESSING [employer] sections in 4 cassettes as follows: ?B1: [...] lymph nodes, up to 1.2 cm. Sections/Processing: [employer] sections in 1 cassettes as follows: ?E1: ??Two intact lymph nodes F - Labeled/Fixative: Level 7, fresh. Quantity/Size: Multiple, 2.0 x 1.0 x 0.6 cm. Tissue Description: Adipose tissue with two lymph nodes, up to 1.5 cm. Largest lymph node is partially fragmented Sections/Processing: [employer] sections in 2 cassettes as follows: ?F1: [...] lymph nodes, up to 0.5 cm. Sections/Processing: [employer] sections in 1 cassettes as follows: ?H1: ??Two intact lymph nodes I - Labeled/Fixative: 4R lymph node packet, fresh. Quantity/Size: Single, 3.0 x 2.0 x 1.2 cm. Tissue Description: Adipose tissue with three lymph nodes, up to 1.4 cm. Sections/Processing: [employer] sections in 3 cassettes as follows: ?I1: [...] superior margin. Parenchyma: Spongy, congested red-brown. Sections/Processing: [employer] sections in 3 cassettes as follows: ?J1: [...] [facility] [place] Dept. of Pathology, [place], [place] This intraoperative consultation should be interpreted as a preliminary diagnosis pending review of the entire specimen and special studies, if any. 10/21/2019 1:34 PM EST [facility] LUNG STRUCTURE / Unknown 10/06/2019 3:48 [...] PM EST Juan Tran MD PATHOLOGY/CYTOLOGY ORDERABLES [facility] [place] [address] documented in this encounter Visit Diagnoses Diagnosis [...] Khadra Aquino RN)2327 (Given - Provider: Vini Lizama, VENU) 0540 (Given - Provider: Vini Lizama RN)1156 [...] Lizama RN) 0240 (Given - Provider: Vini Lizama, VENU) amitriptyline (ELAVIL) tablet 100 mg 100 mg, Oral, NIGHTLY, First dose on Fri10/06/19 at 2100, Until Discontinued, Routine 2241 (Given - Provider: Vini Lizama, VENU) 2126 (Given - Provider: Shahnaz Pfeiffer RN) [...] see previous documentation)2110 (Given - Provider: Shahnaz Pfeiffer RN) 0952 (Given - Provider: Chandan Wasserman, RN) famotidine (PEPCID) tablet 40 mg 40 mg, Oral, DAILY, First dose on Fri10/07/19 at 0900, Until Discontinued 0935 (Given - Provider: Malka Claire RN) 0951 (Given - Provider: Chandan Wasserman, RN) [...] Lizama RN)1345 (Given - Provider: Malka Claire RN)2110 (Given - Provider: Shahnaz Pfeiffer, VENU) 0615 [...] Routine 0934 (Given - Provider: Malka Claire RN)134 (Given - Provider: Malka Claire RN)211 (Given - Provider: Shahnaz Pfeiffer, VENU) 0245 [...] Routine 0540 (Given - Provider: Vini Lizama, VENU) 0615 (Given - Provider: Shahnaz Pfeiffer, VENU) [...] Lizama RN) 0937 (Given - Provider: Malka Claire RN)2112 (Given - Provider: Shahnaz Pfeiffer, VENU) 0952 (Given - Provider: Chandan Wasserman, VENU) pantoprazole (PROTONIX) tablet 40 mg 40 mg, Oral, DAILY, First dose on Fri10/07/19 at 0900, Until Discontinued, DO NOT CRUSH OR OPEN 0937 (Given - Provider: Malka Claire RN) 0952 (Given - Provider: Chandan Wasserman RN) senna (SENOKOT) tablet 17.2 mg 17.2 [...] at 0826, Pain, Recovery (Recovery-Hospital Unit), Routine 191 (Given - Provider: Khadra Aquino RN) lidocaine [...] Recovery 1916 (Given - Provider: Khadra Aquino, VENU) ondansetron (ZOFRAN) injection 4 mg 4 mg, Intravenous, EVERY 8 HOURS PRN, Starting on Fri10/06/19 at 215, Until Fri10/08/19 at 1640, Nausea oxyCODONE (ROXICODONE) [...] Routine documented in this encounter Care Teams Consulting Hr Professional Relationship Specialty Start Date End Date Kathy Wright APRN PCP - General Family Medicine 04/22/19 documented as of this encounter
--- OUTSIDE RECORDS SUMMARY | 2024-07-28 02:11 | XMS_ITS | Encounter Summary ---
Author Organization [facility] [place] [address] Care Team Providers Care Helpdesk Analyst Name Role Phone GerardoKatyh nicolas Butch DANIEL Primary Care Provider [phone] Reason for Visit * Diagnostic Test (Routine) - Closed Specialty Diagnoses / Procedures Referred By Janie cassidy Referred To Contact Radiology Diagnoses Lung nodule Procedures NM PET CT Skull Base to Mid-thigh Kellee Wylie MD [facility] [place] [address] [place] [address] Referral ID Status Reason Start Date Expiration Date V isits Requested Visits Authorized [id number] Closed Specialty Service Requested 07/14/2019 10/12/2019 1 1 Encounter Details Date Type Department Care Team (Latest Contact Info) Description 08/04/2019 11:57 AM EDT Hospital Encounter [place] [address] Kellee Wylie MD [facility] [place] [address] Discharge Disposition: Home Social History Tobacco [...] below. ? Electronically signed by: Michelle Rogers [facility] ([phone]), at 08/04/2019 6:10 PM Narrative 08/04/2019 6:10 PM EDT EXAMINATION: NM PET CT SKULL BASE TO MID-THIGH ? CLINICAL HISTORY: lung nodule TECHNIQUE: Following IV injection of 53-jnchej-3-deoxyglucose (FDG) a standard uptake of approximately 60 [...] Chest CT 07/02/2019. CT abdomen pelvis or [facility] 04/18/2019. FINDINGS: HEAD/NECK: Normal activity [...] lung nodule TECHNIQUE: Following IV injection of 71-uglynw-3-deoxyglucose (FDG) astandard uptake of approximately 60 minutes, [...] Chest CT 07/02/2019. CT abdomen pelvis or [facility] 04/18/2019. FINDINGS: HEAD/NECK: Normal activity [...] on filedocumented in this encounter Care Teams Helpdesk Analyst Relationship Specialty Start Date End Date Kathy Wright, MONOMER RECOVERY OPERATOR PCP - General Family Medicine 04/22/19 documented as of this encounter
--- OUTSIDE RECORDS SUMMARY | 2024-07-28 02:11 | XMS_ITS | Encounter Summary ---
Author Organization [facility] [place] [address] Care Team Providers Care Brand Communications Manager Name Role Phone Kathy Wright PROCUREMENT PROFESSIONAL LOGISTICS Primary Care Provider [phone] Reason for Referral * Diagnostic Test (Routine) - Closed Specialty Diagnoses / Procedures Referred By Janie cassidy Referred To Contact Radiology Diagnoses Abnormal CT of the chest Procedures CT Chest wo Contrast (Generic) Corby Anton MD [facility] [place] [address] [facility] [place] [address] Referral ID Status Reason Start Date Expiration Date V isits Requested Visits Authorized [id number] Closed Specialty Service Requested 06/25/2019 09/23/2019 1 1 Encounter Details Date Type Department Care Team (Late st Contact Info) Description 05/05/2019 Orders [place] [address] Corby Anton MD [facility] [place] [address] of the chest Social [...] phy Impressions 07/02/2019 4:11 PM EDT Stable mrrh-bb-hafo nodules in the right lower lobe, the largest of which measures 9 x 10 mm. Fatty infiltration liver. Progressive sclerosis and height loss at site of L1 burst fracture with stable fragment retropulsion. Thank you for letting us participate in the care of this patient. For questions regarding this report, please contact the number below. ? Narrative 07/02/2019 4:11 PM EDT EXAMINATION: CT [...] sclerosis and height loss at site of V2jmjdl fracture with retropulsion of fragments unchanged. IMPRESSION Stable hjwo-lh-tahq nodules in the right lower lobe, the largest ofwhich measures 9 x 10 mm. Fatty infiltration liver. Progressive sclerosis and height loss at site of L1 burst fracture withstable fragment retropulsion. Thank you for letting us participate in the care of this patient. Forquestions regarding this report, please contact the number below. Electronically signed by: Sheela Grace [facility] ([phone]),at 07/02/2019 4:11 PM Corby Anton MD IMG CT ORDERABLES documented in this encounter Visit Diagnoses Diagnosis Abnormal CT of the chest Nonspecific (abnormal) findings on radiological and other examination of other intrathoracic organs Abnormal CT of the chest Nonspecific (abnormal) findings on radiological and other examination of other intrathoracic organs documented in this encounter Care Teams Brand Communications Manager Relationship Specialty Start Date End Date Katyh Wright APRN PCP - General Family Medicine 04/22/19 documented as of this encounter
--- OUTSIDE RECORDS SUMMARY | 2024-07-28 02:11 | XMS_ITS | Encounter Summary ---
Author Organization [facility] Address [facility] [place] [address] Care Team Providers Care Activity Director Name Role Phone Kathy Wright MARÍA Primary Care Provider [phone] Reason for Visit * Reason Onset Date Comments Other 10/04/2019 SOB Encounter Details Date Type Department Care Team (Late st Contact Info) Description 10/04/2019 Telephone Thoracic Surgery at [facility] [place] [address] Anna Owen, RN Other (SOB) Social History [...] 40 times per day and getting to [phone]. She stated On Friday, I had a [...] on filedocumented in this encounter Care Teams Activity Director Relationship Specialty Start Date End Date Kathy Wright APRN PCP - General Family Medicine 04/22/19 documented as of this encounter
--- OUTSIDE RECORDS SUMMARY | 2024-07-28 02:11 | XMS_ITS | Encounter Summary ---
[place] [address] Care Team Providers Care Rvda Master Certified Rv Technician Name Role Phone Kathy Wright Butch DANIEL Primary Care Provider [phone] Reason for Referral * Diagnostic Test (Routine) - Denied Specialty Diagnoses / Procedures Referred By Janie cassidy Referred To Contact Radiology Diagnoses Nodule of lower lobe of right lung Procedures CT Chest w Contrast [facility] Surg [address] [place] [address] [facility] [place] [address] Referral ID Status Reason Start Date Expiration Date V isits Requested Visits Authorized [id number] Denied Specialty Service Requested 09/15/2019 09/14/2020 1 0 Encounter Details Date Type Department Care Team (Late st Contact Info) Description 09/15/2019 Orders [place] [address] Anna Owen, RN Nodule of [...] lung documented in this encounter Care Teams Rvda Master Certified Rv Technician Relationship Specialty Start Date End Date Kathy Wright, MARÍA PCP - General Family Medicine 04/22/19 documented as of this encounter
--- OUTSIDE RECORDS SUMMARY | 2024-07-28 02:11 | XMS_ITS | Encounter Summary ---
[place] [address] Care Team Providers Care Shaper Operator Name Role Phone GerardoKathy nicolas Butch DANIEL Primary Care Provider [phone] Encounter Details Date Type Department Care Team (Late st Contact Info) Description 09/15/2019 Orders [place] [address] Anna Owen, RN Nodule of lower lobe [...] EDT) Creatinine 0.93 0.70 - 1.20 mg/dL [facility] Est Glomerular Filtration Rate 67 >=60 mL/min/1.7 3 m?? [facility] Comment: The eGFR was calculated using the CKD-EPI equation. As with all creatinine based estimates of kidney function, eGFR values calculated with the CKD-EPI equation are not accurate in patients with acute kidney failure, extremes of body mass or the acutely ill. http://[employer]/[facility] eGFR 78 >=60 mL/min/1.7 3 m?? [facility] Comment: The eGFR was calculated using the CKD-EPI equation. As with all creatinine based estimates of kidney function, eGFR values calculated with the CKD-EPI equation are not accurate in patients with acute kidney failure, extremes of body mass or the acutely ill. [email or web address] Blood specimen (specimen) 09/16/2019 7:20 AM EDT 09/16/2019 8:20 AM EDT Narrative Resulting Agency Comment Spec In Lab Juan Ny MD CHEMISTRY ORDERABLE S [facility] [place] [address] documented in this encounter Visit Diagnoses Diagnosis Nodule of lower lobe of right lung Hypertension, unspecified type documented in this encounter Care Teams Shaper Operator Relationship Specialty Start Date End Date Kathy Wright APRN PCP - General Family Medicine 04/22/19 documented as of this encounter
--- OUTSIDE RECORDS SUMMARY | 2024-07-28 02:11 | XMS_ITS | Encounter Summary ---
[place] [address] Care Team Providers Care Hand Bander Name Role Phone Nimo Nair Primary Care Provider + Encounter Details Date Type Department Care Team (Late st Contact Info) Description 04/19/2019 Orders [place] [address] Yesica Mckeon, RN Closed stable burst fracture [...] FU to phone call via TC from [facility]. Xray and appt in ~ 2 wks to assess L1 fx with a burst component. IB to [place] schedulers requesting they arrange Xray and 40' appt with non surgical provider (ideally when Dr Velazco or a surgeon is in clinic). Requested efforts be made to get notes from [facility], pt was in ED or inpt on/around [...] number below. Electronically signed by: Andra Staton [facility] [place] ([phone]),at 05/04/2019 3:10 PM Chuck Velazco MD IMG DX ORDERABLES documented in this encounter Visit Diagnoses Diagnosis Closed stable burst fracture of first lumbar vertebra, initial encounter Closed stable burst fracture of first lumbar vertebra, initial encounter documented in this encounter Care Teams Hand Bander Relationship Specialty Start Date End Date Nimo Nair PA PCP - General Orthopaedic Surgery 01/15/18 04/21/19 documented as of this encounter
--- OUTSIDE RECORDS SUMMARY | 2024-07-28 02:11 | XMS_ITS | Encounter Summary ---
Author Organization [facility] [place] [address] Care Team Providers Care Territory Account Representative Name Role Phone Kathy Wright APRN Primary Care Provider [phone] Encounter Details Date Type Department Care Team (Late st Contact Info) Description 08/16/[address] [facility] [place] [address] Kellee [address]yl[address] MD [facility] [place] [address] Social History Tobacco Use Types Packs/Day Years [...] on filedocumented in this encounter Care Teams Territory Account Representative Relationship Specialty Start Date End Date Kathy Wright, MARÍA PCP - General Family Medicine 04/22/19 documented as of this encounter
--- OUTSIDE RECORDS SUMMARY | 2024-07-28 02:11 | XMS_ITS | Encounter Summary ---
Author Organization [facility] Address [facility] [place] [address] Care Team Providers Care Tube Balancer Name Role Phone Kathy Wright APRN Primary Care Provider [phone] Encounter Details Date Type Department Care Team (Late st Contact Info) Description 08/05/2019 Telephone Pulmonology at [facility] [place] [address] Kellee Wylie MD [facility] [place] [address] Social History Tobacco Use Types Packs/Day Years [...] filedocumented in this encounter Care Teams Tube Balancer Relationship Specialty Start Date End Date Kathy Wright APRN PCP - General Family Medicine 04/22/19 documented as of this encounter
--- OUTSIDE RECORDS SUMMARY | 2024-07-28 02:11 | XMS_ITS | Encounter Summary ---
Author Organization [facility] [place] [address] Care Team Providers Care Supervisor Gate Services Name Role Phone Kathy Wright MARÍA Primary Care Provider [phone] Reason for Referral * Diagnostic Test (Routine) - Closed Specialty Diagnoses / Procedures Referred By Contac t Referred To Contact Radiology Diagnoses Lung nodule Procedures NM PET CT Skull Base to Mid-thigh Kellee Wylie MD [facility] [place] [address] [place] [address] Referral ID Status Reason Start Date Expiration Date V isits Requested Visits Authorized [id number] Closed Specialty Service Requested 07/14/2019 10/12/2019 1 1 Reason for Visit * Diagnostic Test (Routine) - Closed Specialty Diagnoses / Procedures Referred By Contac t Referred To Contact Radiology Diagnoses Lung nodule Procedures NM PET CT Skull Base to Mid-thigh Kellee Wylie MD [facility] [place] [address] [place] [address] Referral ID Status Reason Start Date Expiration Date V isits Requested Visits Authorized [id number] Closed Specialty Service Requested 07/14/2019 10/12/2019 1 1 Encounter Details Date Type Department Care Team (Latest Contact Info) Description 08/04/2019 11:57 AM EDT Hospital Encounter Nuclear Medicine at [facility] [place] [address] Kellee Wylie MD [facility] [place] [address] Lung nodule Discharge Disposition: Home Social History [...] lung nodule TECHNIQUE: Following IV injection of 02-uvryae-2-deoxyglucose (FDG) a standard uptake of approximately 60 [...] Chest CT 07/02/2019. CT abdomen pelvis or [facility] 04/18/2019. FINDINGS: HEAD/NECK: Normal activity in [...] lung nodule TECHNIQUE: Following IV injection of 92-pwjwsx-8-deoxyglucose (FDG) astandard uptake of approximately 60 minutes, [...] Chest CT 07/02/2019. CT abdomen pelvis or [facility] 04/18/2019. FINDINGS: HEAD/NECK: Normal activity in [...] * POCT Glucose (08/04/2019 12:12 PM EDT) Glucose, POC 105 65 - 199 mg/dL [facility] Comment: Supplemental ranges: <140 mg/dL before meals <180 mg/dL all other times of the day Blood specimen (specimen) 08/04/2019 12:12 PM EDT 08/04/2019 12:12 PM EDT Kellee Cagle MD POINT OF CARE YANI T ORDERABLES [facility] [place] [id number] documented in this encounter Visit Diagnoses Diagnosis [...] Arm documented in this encounter Care Teams Supervisor Gate Services Relationship Specialty Start Date End Date Kathy Wright APRN PCP - General Family Medicine 04/22/19 documented as of this encounter
--- OUTSIDE RECORDS SUMMARY | 2024-07-28 02:11 | XMS_ITS | Encounter Summary ---
Author Organization [facility] [place] [address] Care Team Providers Care Pipe Insulator Helper Name Role Phone Kathy Wright MARÍA Primary Care Provider [phone] Reason for Referral * Diagnostic Test (Routine) - Closed Specialty Diagnoses / Procedures Referred By Janie t Referred To Contact Radiology Diagnoses Abnormal CT of the chest Procedures CT Chest wo Contrast (Generic) Corby Anton MD [facility] [place] [address] [facility] [place] [address] Referral ID Status Reason Start Date Expiration Date V isits Requested Visits Authorized [id number] Closed Specialty Service Requested 06/25/2019 09/23/2019 1 1 Reason for Visit * Diagnostic Test (Routine) - Closed Specialty Diagnoses / Procedures Referred By Janie cassidy Referred To Contact Radiology Diagnoses Abnormal CT of the chest Procedures CT Chest wo Contrast (Generic) Corby Anton MD [facility] [place] [address] [facility] [place] [address] Referral ID Status Reason Start Date Expiration Date V isits Requested Visits Authorized [id number] Closed Specialty Service Requested 06/25/2019 09/23/2019 1 1 Encounter Details Date Type Department Care Team (Latest Contact Info) Description 07/02/2019 12:50 PM EDT - 07/02/2019 11:59 PM EDT Hospital Encounter CT Scan at [facility] [place] [address] Corby Anton MD [facility] [place] [address] of the chest Discharge Disposition: [...] phy Impressions 07/02/2019 4:11 PM EDT Stable rgsx-dg-bhox nodules in the right lower lobe, the [...] sclerosis and height loss at site of C6penhu fracture with retropulsion of fragments unchanged. IMPRESSION Stable rouk-vl-ennt nodules in the right lower lobe, the largest ofwhich measures 9 x 10 mm. Fatty infiltration liver. Progressive sclerosis and height loss at site of L1 burst fracture withstable fragment retropulsion. Thank you for letting us participate in the care of this patient. Forquestions regarding this report, please contact the number below. Electronically signed by: Sheela Grace [facility] ([phone]),at 07/02/2019 4:11 PM Corby Anton MD G CT ORDERABLES documented in this encounter Visit Diagnoses Diagnosis Abnormal CT of the chest Nonspecific (abnormal) findings on radiological and other examination of other intrathoracic organs documented in this encounter Care Teams Pipe Insulator Helper Relationship Specialty Start Date End Date Kathy Wright APRN PCP - General Family Medicine 04/22/19 documented as of this encounter
--- OUTSIDE RECORDS SUMMARY | 2024-07-28 02:11 | XMS_ITS | Encounter Summary ---
Author Organization [facility] [place] [address] Care Team Providers Care Forge Shop Supervisor Name Role Phone Kathy Wright MARÍA Primary Care Provider [phone] Reason for Visit * Reason Onset Date Comments Other 09/24/2019 Encounter Details Date Type Department Care Team (Late st Contact Info) Description 09/24/2019 Telephone [place] [address] Anna Owen, RN Other Social History Tobacco [...] on filedocumented in this encounter Care Teams Forge Shop Supervisor Relationship Specialty Start Date End Date Kathy Wright APRN PCP - General Family Medicine 04/22/19 documented as of this encounter
--- OUTSIDE RECORDS SUMMARY | 2024-07-28 02:11 | XMS_ITS | Encounter Summary ---
[place] [address] Care Team Providers Care Final Inspector And Tester Name Role Phone Kathy Wright MARÍA Primary Care Provider [phone] Reason for Visit * Reason Onset Date Comments Other 09/28/2019 call regarding p omar Encounter Details Date Type Department Care Team (Late st Contact Info) Description 09/28/2019 Telephone [place] [address] Anna Owen, RN Other (call regarding plan) [...] on filedocumented in this encounter Care Teams Final Inspector And Tester Relationship Specialty Start Date End Date Kathy Wright APRN PCP - General Family Medicine 04/22/19 documented as of this encounter
--- OUTSIDE RECORDS SUMMARY | 2024-07-28 02:11 | XMS_ITS | Encounter Summary ---
Author Organization [facility] Address [facility] [place] [address] Care Team Providers Care Lime Kiln Tender Name Role Phone Kathy Wright MARÍA Primary Care Provider [phone] Reason for Referral * Consultation (Routine) - Specialty Diagnoses / Procedures Referred By Janie cassidy Referred To Contact Thoracic Surgery Diagnoses Pulmonary nodule Kellee Wylie MD [facility] [place] [address] Juan Ny MD [facility] [place] [address] Referral ID Status Reason Start Date Expiration Date V isits Requested Visits Authorized [id number] Consult, Test & Treat 09/05/2019 09/04/2020 1 1 Encounter Details Date Type Department Care Team (Late st Contact Info) Description 09/05/2019 Telephone Pulmonology at [facility] [place] [id number] Kellee Wylie MD [facility] [address] [place] [address] Social History Tobacco Use Types Packs/Day Years [...] and every day smoker and carries about 22-aojm-cmaw history. Today, we discussed multiple different options, [...] nodule documented in this encounter Care Teams Lime Kiln Tender Relationship Specialty Start Date End Date Kathy Wright, MARÍA PCP - General Family Medicine 04/22/19 documented as of this encounter
--- OUTSIDE RECORDS SUMMARY | 2024-07-28 02:11 | XMS_ITS | Encounter Summary ---
Author Organization [facility] Address [facility] [place] [address] Care Team Providers Care Stewarding Supervisor Name Role Phone Kathy Wright MARÍA Primary Care Provider [phone] Reason for Visit * Auth/Cert Specialty Diagnoses [...] Expiration Date Visits Re quested Visits Authorized [id number] 1 1 Encounter Details Date Type Department Care Team (Late st Contact Info) Description 10/06/2019 2:42 PM EST Anesthesia [place] [id number] Donya Cordero MD [facility] [place] [address] Obed Medina MD [facility] [place] [address] Anesthesia Record Procedure Summary Procedure Name Responsible [...] Multiple trocar sites.; 07/29/22 (LDA cleanup utility RA#[id number]); 1715 (LDA cleanup utility RA#[id number]) 10/06/19 0000 by Patricia Rodarte RN 07/29/22 1715 by Marika Childs (RETIRED) Peripheral IV Line - Single Lumen 10/06/19; 1233; metacarpal vein (top of hand), right; xbls-pex-tomndb catheter system; 22 gauge; Patricia Shi RN; distraction, intradermal injection, tolerated well; 2; median cubital vein (antecubital fossa), left, metacarpal vein (top of hand), left; 10/08/19; 13110/06/19 1233 by Patricia Shi RN 10/08/19 131 [...] 1458; median vein (underside of arm), left; icsh-kzm-rpoynm catheter system; 18 gauge; Obed Medina MD; 10/08/19; 1318 10/06/19 1458 by Eva Bhat CRNA 10/08/19 1318 by Brandi Collins RN Arterial Line 10/06/19; 1458; radi al artery, right; 20 gauge; Eva Bhat CRNA; Sterile Prep, Sterile Gloves; catheter intact, no longer indicated; 10/06/19; 211210/06/19 145 by Eva Bhat BULK FLUIDS HANDLER 10/06/192112 by Khadra Garcia RN Chest Tube [...] Procedure Summary Date: 10/06/19 Room / Location: [facility] MAIN OR Anesthesia Start: 1442 Anesthesia Stop: [...] nodule (right lower lobe lung nodule) Surgeon: Juan Ny MD Responsible Provider: Donya Cordero MD Anesthesia Type: general ASA Status: 3 All Anesthesia Providers: Anesthesiologist: Donya Cordero MD; Obed Medina MD BULK FLUIDS HANDLER: Les Lewis CRNA; Eva Bhat CRNA Student Nurse Local City Driver: Promise Pantoja Vitals Value Taken Time BP 118/62 10/06/2019 7:30 PM Temp Pulse 82 10/06/2019 7:40 PM Resp 9 10/06/2019 7:40 PM SpO2 98 % 10/06/2019 7:39 PM Pain Level 5 10/06/2019 7:14 PM Vitals shown include unvalidated device data. Patient Location: [facility] Level of Consciousness: Awake and Alert Pain [...] consented to blood products. Plan discussed with BULK FLUIDS HANDLER. PAT Clinic Note documented in this encounter [...] mg documented in this encounter Care Teams Stewarding Supervisor Relationship Specialty Start Date End Date Kathy Wright, INFORMATION SYSTEMS SECURITY ANALYST PCP - General Family Medicine 04/22/19 documented as of this encounter
--- OUTSIDE RECORDS SUMMARY | 2024-07-28 02:11 | XMS_ITS | Encounter Summary ---
[place] [address] Care Team Providers Care Gore Inserter Name Role Phone Kathy Wright APRN Primary Care Provider [phone] Encounter Details Date Type Department Care Team (Late st Contact Info) Description 07/02/2019 Orders [place] [address] Andrea Martini Social History Tobacco Use Types [...] on filedocumented in this encounter Care Teams Gore Inserter Relationship Specialty Start Date End Date Kathy Wright APRN PCP - General Family Medicine 04/22/19 documented as of this encounter
--- OUTSIDE RECORDS SUMMARY | 2024-07-28 02:11 | XMS_ITS | Encounter Summary ---
[place] [address] Care Team Providers Care Music Specialist Name Role Phone Kathy Wright APRN Primary Care Provider [phone] Encounter Details Date Type Department Care Team (Late st Contact Info) Description 09/15/2019 Telephone [place] [address] Ayla Vides Social History Tobacco Use Types [...] on filedocumented in this encounter Care Teams Music Specialist Relationship Specialty Start Date End Date Kathy Wright APRN PCP - General Family Medicine 04/22/19 documented as of this encounter
--- OUTSIDE RECORDS SUMMARY | 2024-07-28 02:11 | XMS_ITS | Encounter Summary ---
Author Organization [facility] Address [facility] [place] [address] Care Team Providers Care Antisqueak Filler Name Role Phone Kathy Wright MARÍA Primary Care Provider [phone] Reason for Referral * Diagnostic Test (Routine) - Closed Specialty Diagnoses / Procedures Referred By Contac t Referred To Contact Cardiology Diagnoses Cigarette nicotine dependence without complication Lung nodule Vertigo Procedures Echocardiogram Transthoracic([facility]) Juan Ny MD [facility] [place] [address] [facility] [place] [address] Referral ID Status Reason Start Date Expiration Date V isits Requested Visits Authorized [id number] Closed Specialty Service Requested 09/17/2019 12/16/2019 1 1 Reason for Visit * Reason Comments Nodule * Consultation (Routine) - Specialty Diagnoses / Procedures Referred By Contac t Referred To Contact Thoracic Surgery Diagnoses Pulmonary nodule Kellee Wylie MD [facility] [place] [address] Juan Ny MD [facility] [place] [address] Referral ID Status Reason Start Date Expiration Date V isits Requested Visits Authorized [id number] Consult, Test & Treat 09/05/2019 09/04/2020 1 1 Encounter Details Date Type Department Care Team (Late st Contact Info) Description 09/16/2019 10:15 AM EDT Office Visit Thoracic Surgery at [facility] [place] [address] Juan Ny MD [facility] [place] [address] Cigarette nicotine dependence without complication; Lung nodule; [...] check in for your Transthoracic echocardiogram at customer service receptionist area 4A. In RVATS or robot-assisted video-assisted thoracic surgery, the surgeon controls the camera, light source and surgical tools from a console, with the same degree of flexibility and dexterity as if they were held in the surgeon's hand. The tiny size of the instruments and the precision movement of the robotic arms allow the surgeon to operate in small and qwcf-tp-ahvnj places in the chest cavity, and to [...] the surgeon to operate in small and meta-dj-qazrf places in the chest cavity, and to [...] Surgery Outpatient Consultation Note Rashaun Thurman PA-C [place] [address] Referring Provider: Kellee Cagle MD [facility] [place] [address] Reason for Consultation: FDG avid RLL lung [...] Chest was performed 07/02/18 which demonstrated stable pcco-sv-ppgi nodules in the RLL, largest measuring 9 x 10 mm. PET was then performed 08/04/19 which revealed the 13 mm RLL nodule to be FDG avid, with no other suspected sites of involvement. Patient was then referred to [facility] thoracic surgery for further workup. We have [...] right kidney. CT Chest I- (07/02/19): Stable ompc-um-rrkl nodules in the Right lower lobe, the [...] worked up by her PCP andneurology in [facility]), reflux symptoms and occasional nausea. She denies [...] Dr. Ny. JOSE Smith 09/16/2019 Thoracic Surgery [facility] I have seen the patient and reviewed [...] Attending Outpatient Consultation Note Juan Ny MD [place], [place] [address] ? Referring Provider: Kellee Cagle [place] [facility] [address] ?? Reason for Consultation: FDG avid RLL lung nodule ?? Today, 09/16/2019, I saw Ms. Arreola in the Thoracic Surgery Clinic at [facility] in consultation for a Right lower lobe [...] CT Chest was performed 07/02/18which demonstrated stable msvg-fc-gwad nodules in the RLL, largest measuring 9 [...] up by her PCP and neurology in [facility]), reflux symptoms and occasional nausea. She denies [...] kidney. ?? CT Chest I- (07/02/19): Stable enrk-kg-lrvs nodules in the Right lower lobe, the [...] Puente ? (Age): 1960(59y) Med Rec#: ? [id number] ?Sex: ?F ? Site Loc: ? [facility] ?Ht / Wt: ??155(cm)/68(kg) Pt. Loc: ?Echo Lab ?BSA: ?1.67 Study Date: ?? 09/22/2019 ?Pt. Type: Outpatient Tape: ? Referring: DEBRA Reading: Alejandro Oakley ([id number]) Molded Parts Inspector: Esteban Solorio, [facility] Nurse: Kailyn Garcia Diagnosis: *Solitary pulmonary nodule [...] E-wave Vmax ?0.4 ?m/sec ? MV deceleration [id number] ?msec ? MV A-wave Vmax ?0.6 ?m/sec [...] ? Mid-Inferior ?Normal ? Mid-Inferoseptal ?Normal ? [place]-Septal ? Normal ? [place]-Anterior ? Normal ? [place]-Lateral ?Normal ? [place]-Inferior ? Normal ? [place]-Tip ?Normal ? This report has been electronically signed by: Alejandro Oakley MD ? 09/22/2019 17:11:03 Images reviewed and interpretation verified [facility] Cardiac Ultrasound Laboratory Procedure Note Alejandro Oakley MD - 09/22/2019 Procedure: Transthoracic Echocardiogram Patient: KADEN Puente (Age): 1960(59y) Med Rec#: [id number] Sex: F Site Loc: [facility] Ht / Wt: 155(cm)/68(kg) Pt. Loc: Echo Lab BSA: 1.67 Study Date: 09/22/2019 Pt. Type: Outpatient Tape: Referring: [email or web address] Reading: Alejandro Oakley ([id number]) Molded Parts Inspector: Esteban Solorio, CS Nurse: Kailyn Garcia Diagnosis: [...] MV E-wave Vmax 0.4 m/sec MV deceleration [id number] msec MV A-wave Vmax 0.6 m/sec MV [...] Normal Mid-Posterolateral Normal Mid-Inferior Normal Mid-Inferoseptal Normal [place]-Septal Normal [place]-Anterior Normal [place]-Lateral Normal [place]-Inferior Normal [place]-Tip Normal This report has been electronically signed by: Alejandro Oakley MD 09/22/2019 17:11:03 Images reviewed and interpretation verified [facility] Cardiac Ultrasound Laboratory Juan Ny MD ECHO ORDERABLES * EKG 12 Lead (09/16/2019 12:51 PM EDT) Ventricular rate 80 BPM MUSE SYSTEM Atrial Rate 80 BPM MUSE SYSTEM P-R Interval 154 ms MUSE SYSTEM QRS Duration 98 ms MUSE SYSTEM Q-T Interval 416 ms MUSE SYSTEM QTC Calculated (Bezet) 479 ms MUSE SYSTEM Calculated P [place] 52 degrees MUSE SYSTEM Calculated R [place] 56 degrees MUSE SYSTEM Calculated T [place] 40 degrees MUSE SYSTEM INTERPRETATION Normal sinus rhythm RSR' or QR pattern in V1 suggests right ventricular conduction delay Otherwise normal ECG No previous ECGs available Confirmed by MD Danyelle, Mehran Tristan ([id number]) on 09/16/2019 4:36:55 PM MUSE SYSTEM 09/16/2019 12:5 1 PM EDT 09/16/2019 4:36 PM EDT Juan Ny MD ECG ORDERABLES MUSE SYSTEM * (ABNORMAL) Comprehensive metabolic panel (non-fasting) (09/16/2019 12:43 PM EDT) Glucose 94 65 - 199 mg/dL [facility] Comment:Diabetes: >=200 mg/d L plus symptoms Blood Urea Nitrogen 8 8 - 18 mg/dL [facility] Creatinine 0.91 0.70 - 1.20 mg/dL [facility] [...] questions. Chloride 99 98 - 107 mmol/L [facility] Carbon Dioxide 24 22 - 31 mmol/L [facility] Anion Gap 15 5 - 15 mmol/L [facility] Calcium 9.6 8.5 - 10.5 mg/dL [facility] Protein, Total 7.8 6.1 - 8.0 gm/dL [facility] Albumin 4.6 3.2 - 5.2 gm/dL [facility] Aspartate Aminotransferase 32(H) 0 - 30 unit/L [facility] Alanine Aminotransferase 45(H) 0 - 30 unit/L [facility] Alkaline Phosphatase 97 35 - 105 unit/L [facility] Bilirubin, Total 0.3 0.2 - 1.3 mg/dL [facility] Est Glomerular Filtration Rate 69 >=60 mL/min/1. 73 m?? [facility] Comment: The eGFR was calculated using the CKD-EPI equation. As with all creatinine based estimates of kidney function, eGFR values calculated with the CKD-EPI equation are not accurate in patients with acute kidney failure, extremes of body mass or the acutely ill. http://[employer] University[employer]f eGFR 80 >=60 mL/min/1. 73 m?? [facility] Comment: The eGFR was calculated using the CKD-EPI equation. As with all creatinine based estimates of kidney function, eGFR values calculated with the CKD-EPI equation are not accurate in patients with acute kidney failure, extremes of body mass or the acutely ill. http://Eve[employer]/DHMCnkf Blood specimen (specimen) 09/16/2019 12:43 PM EDT 09/16/2019 12:52 PM EDT Narrative Resulting Agency Comment Spec In Lab Juan Ny MD CHEMISTRY ORDERABLE S Performing Organization Address City/State/[facility] Co de Phone Number [facility] [place] [address] documented in this encounter Visit Diagnoses Diagnosis Cigarette nicotine dependence without complication Tobacco use disorder Lung nodule Solitary pulmonary nodule Vertigo Dizziness and giddiness Cigarette nicotine dependence without complication Tobacco use disorder Lung nodule Solitary pulmonary nodule Vertigo Dizziness and giddiness documented in this encounter Care Teams Antisqueak Filler Relationship Specialty Start Date End Date Kathy Wright APRN PCP - General Family Medicine 04/22/19 documented as of this encounter
--- OUTSIDE RECORDS SUMMARY | 2024-07-28 02:11 | XMS_ITS | Encounter Summary ---
[place] [address] Care Team Providers Care Buffing Wheel Presser Name Role Phone Kathy Wright APRN Primary Care Provider [phone] Encounter Details Date Type Department Care Team (Late st Contact Info) Description 08/05/2019 Telephone [place] [address] Andrea Martiin Social History Tobacco Use Types Packs/Day Years [...] on filedocumented in this encounter Care Teams Buffing Wheel Presser Relationship Specialty Start Date End Date Kathy Wright APRN PCP - General Family Medicine 04/22/19 documented as of this encounter
--- OUTSIDE RECORDS SUMMARY | 2024-07-28 02:12 | XMS_ITS | Encounter Summary ---
[place] [address] Care Team Providers Care Systems Trainer Name Role Phone Nimo Nair Primary Care Provider + Encounter Details Date Type Department Care Team (Late st Contact Info) Description 04/03/2019 12:05 AM EDT Ancillary Procedure [place] [address] Chuck Velazco MD [facility] [place] [address] [place] [address] Social History Tobacco Use Types Packs/Day Years [...] IMG FILM LIBRARY ORD ERABLES DH RAD [place], [place] documented in this encounter Visit Diagnoses Not on filedocumented in this encounter Care Teams Systems Trainer Relationship Specialty Start Date End Date Nimo Nair PA PCP - General Orthopaedic Surgery 01/15/18 04/21/19 documented as of this encounter
--- OUTSIDE RECORDS SUMMARY | 2024-07-28 02:12 | XMS_ITS | Encounter Summary ---
[place] [address] Care Team Providers Care Park Maintenance Technician Name Role Phone Nimo Nair Primary Care Provider + Encounter Details Date Type Department Care Team (Late st Contact Info) Description 04/18/2019 12:50 PM EDT Ancillary Procedure [place] [address] Chuck Velazco MD [facility] [place] [address] [place] [address] Social History Tobacco Use Types Packs/Day Years [...] & Pelvis (04/18/2019 12:46 PM EDT) Narrative [facility] - 04/18/2019 12:46 PM EDT This exam is auto-finalizing. It's purpose is for storage only. Chuck Velazco MD IMG FILM LIBRARY ORD ERABLES DH [place], [place] documented in this encounter Visit Diagnoses Not on filedocumented in this encounter Care Teams Park Maintenance Technician Relationship Specialty Start Date End Date Nimo Nair PA PCP - General Orthopaedic Surgery 01/15/18 04/21/19 documented as of this encounter
--- OUTSIDE RECORDS SUMMARY | 2024-07-28 02:12 | XMS_ITS | Encounter Summary ---
[place] [address] Care Team Providers Care Legal Billing Coordinator Name Role Phone Nimo Nair Primary Care Provider + Encounter Details Date Type Department Care Team (Late st Contact Info) Description 04/03/2019 Ancillary Procedure [place] [address] Chuck Velazco MD [facility] [place] [address] Social History Tobacco Use Types Packs/Day Years [...] Spine (04/03/2019 12:00 AM EDT) Narrative [facility] - 04/18/2019 1:20 PM EDT This exam is auto-finalizing. It's purpose is for storage only. Chuck Velazco MD G FILM LIBRARY ORD ERABLES DH [place], [place] documented in this encounter Visit Diagnoses Not on filedocumented in this encounter Care Teams Legal Billing Coordinator Relationship Specialty Start Date End Date Nimo Nair PA PCP - General Orthopaedic Surgery 01/15/18 04/21/19 documented as of this encounter
--- OUTSIDE RECORDS SUMMARY | 2024-07-28 02:12 | XMS_ITS | Encounter Summary ---
Author Organization [facility] Address [facility] [place] [address] Care Team Providers Care Wrist Liner Name Role Phone GerardoKathy nicolas Butch DANIEL Primary Care Provider [phone] Encounter Details Date Type Department Care Team (Late st Contact Info) Description 12/26/2003 Orders Only Dermatology at [place] [address] [place] [address] Samuel Will MD [address], [place] [address] Social History Tobacco Use Types Packs/Day Years [...] (12/26/2003 8:34 PM EST) Surgical Pathology Report [id number] ? Location: The signing pathologist has (i) [...] ??There are marked secondary changes of irritation. CERNER MILLENNIUM 12/26/2003 8:34 PM EST Samuel Will MD PATHOLOGY/CYTOLOGY O RDERABLES [facility] documented in this encounter Visit Diagnoses Not on filedocumented in this encounter Care Teams Wrist Liner Relationship Specialty Start Date End Date Kathy Wright, CELL COVERER PCP - General Family Medicine 04/22/19 documented as of this encounter
--- OUTSIDE RECORDS SUMMARY | 2024-07-28 02:12 | XMS_ITS | Encounter Summary ---
Author Organization [facility] Address [facility] [place] [address] Care Team Providers Care Photonics Technician Name Role Phone Nimo Nair Primary Care Provider + Encounter Details Date Type Department Care Team (Late st Contact Info) Description 04/18/2019 Telephone [place] [address] Moreno Crystal MD [facility] [place] [address] Social History Tobacco Use Types Packs/Day Years [...] 2 weeks ago. She was evaluated at [facility] where radiographs demonstrated an L1 compression deformity. Since that time she has been treated symptomatically. She presented to [facility] with diarrhea today, and a CT scan [...] on filedocumented in this encounter Care Teams Photonics Technician Relationship Specialty Start Date End Date Nimo Nair PA PCP - General Orthopaedic Surgery 01/15/18 04/21/19 documented as of this encounter
--- NOTE | 2024-07-28 07:50 | DI.RAD_ITS ---
Exam(s) XR ARTHRITIS SERIES EXAM: XR ARTHRITIS SERIES CLINICAL HISTORY: ? oa,joint pain both nand, m25.541,m25.542. TECHNIQUE: 2D digital imaging was performed. Two views of both hands. COMPARISON: CR RIGHT HAND COMPLETE from 03/20/2014 FINDINGS: BONES: No acute fracture is present. No erosive or productive bony lesions are seen. The bones are n ormally mineralized. JOINTS: No dislocation present. Minimal periarticular spurring at the interphalangeal joints. SOFT TISSUE: Normal. IMPRESSION: Minimal degenerative changes of the interphalangeal joints. DATA REPOSITORY: RADIATION DOSE DELIVERED:
== END 2024-07-28 02:19 ==
LOC: DI 01:59
PROVIDERS: PCP Nurse Practitioner Family; Visit Provider Nurse Practitioner Family
DX: M25.541 Pain in joints of right hand (principal); M25.542 Pain in joints of left hand
CPT/HCPCS: 73120

== ENCOUNTER 2024-08-03 10:33 | Day surgery (SDC) | payer MEDICAID, SELFPAY ==
--- NOTE | 2024-08-03 10:13 | PDOC.DSDIS_ITS ---
Date of service: 08/03/24 Time of Service: 10:14 Discharge Plan Disposition Patient Disposition: Home Condition: Good Discharge Details Reason For Visit: Left ring finger trigger Attending Provider: Alberto Lamb Primary Care Provider: Kathy Wright Home Meds and New Rx's Prescriptions: Continued calcium-vitamin D3-vitamin K [Viactiv] 650 mg-12.5 mcg-40 mcg tablet,chewable 1 tab PO DAILY celecoxib 50 mg capsule 50 mg PO BID Qty: 60 1RF ketoconazole 2 % cream 1 applic topical DAILY Qty: 120 6RF Rx Instructions: Apply to toenails once daily naloxone [Narcan] 4 mg/actuation spray,non-aerosol 4 mg intranasal Q2-3M PRN Rx Instructions: spray 1 dose into ONE nostril; alternate nostrils w each dose until help arrives Multivitamin Women 50 Plus 8 mg iron-400 mcg-50 mcg tablet 1 tab PO DAILY metoprolol tartrate 50 MG tablet 50 mg PO BID Marijuana Edibles 1 tab PO PRN PRN Nizoral A-D 1 % shampoo 1 applic topical Q3D fluticasone propion-salmeterol [Advair HFA] 230-21 mcg/actuation HFA aerosol inhaler 2 puff inhalation BID lisinopril 10 mg tablet 10 mg PO DAILY Patient Comments: TAKE ONE TABLET BY MOUTH EVERY DAY Anoro Ellipta 62.5-25 mcg/actuation blister with device 1 inh inhalation DAILY (DME) cane Device See Rx Instructions .Route Rx Instructions: As directed clonazepam [Klonopin] 0.5 mg tablet 1 mg PO DAILY PRN (Reason: anxiety) gabapentin 400 mg capsule 400 mg PO QHS Rx Instructions: With 100 mg cap for a total of 500 mg at bedtime mirtazapine 15 mg tablet 15 mg PO QHS Nizoral A-D 1 % shampoo 1 applic topical .COMPLEX Rx Instructions: 1 applic topically Use twice per week x4 weeks then prn; Apply to scalp in shower - leave on for 3-5 min before washing off. (DME) Personal Catheter Intermittent 14-6 Fr- misc See Rx Instructions .Route Rx Instructions: Use 1 catheter as directed three times per day as needed albuterol sulfate [Ventolin HFA] 90 mcg/actuation HFA aerosol inhaler 2 puff inhalation Q4H PRN (DME) lancets [OneTouch Delica Plus Lancet] 33 gauge [facility] See Rx Instructions .Route Rx Instructions: Use one lancet daily as directed (DME) 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 meter [OneTouch Verio Flex meter] [facility] See Rx Instructions .Route Rx Instructions: As directed (DME) OneTouch Verio test strips Strip See Rx Instructions .Route Rx Instructions: Check blood sugar once daily as directed amitriptyline 25 mg tablet 25 mg PO QHS Qty: 30 3RF atorvastatin 10 mg tablet 10 mg PO DAILY Qty: 90 3RF levothyroxine 100 mcg capsule 100 mcg PO DAILY Qty: 90 3RF omeprazole 20 mg capsule,delayed release(DR/EC) 20 mg PO DAILY Qty: 90 3RF gabapentin 100 mg capsule See Rx Instructions PO .COMPLEX Qty: 90 3RF Rx Instructions: 2 caps every morning and 1 cap at bedtime orally; Jardiance 25 mg tablet See Rx Instructions .ROUTE .COMPLEX Qty: 90 3RF Dose Instruction: TAKE ONE TABLET BY MOUTH EVERY DAY Rx Instructions: TAKE ONE TABLET BY MOUTH EVERY DAY acetaminophen 500 mg tablet 1,000 mg PO TID Qty: 90 3RF Discharge Instructions Stand Alone Forms: [place] T. Finger Release Activity:: Activity as Tolerated Remove Dressings/Wound Care:: 48 hours Shower/Bathe:: 48 hours Diet:: As Tolerated Discharge Orders Discharge Orders: Discharge Order (Routine); Ordered 08/03/24 Ordered By: Miladis Holland
[2024-08-03] MEDS: Lidocaine 1% Multi-Dose W/EPI 1/100,000 50 ML VIAL (12:51)
[2024-08-03] MEDS: Sodium Bicarbonate 50 MEQ/50 ML VIAL (12:51)
[2024-08-03 13:00] VITALS: BP 134/68; PULSE 88; RESP 16; TEMP 35.9; O2SAT 96
--- NOTE | 2024-08-03 13:48 | W.PM.OP ---
Date of service: 08/03/24 Time of Service: 13:00 Operative Note Operative Note DATE OF PROCEDURE: 08/03/24 PRE-OP DIAGNOSIS: Left Ring Finger Trigger Finger POST-OP DIAGNOSIS: same PROCEDURE: Trigger Finger Release - Left Ring Finger SURGEON: Alberto Lamb ANESTHESIA TYPE: Local By Surgeon Refer to Anesthesia Record ESTIMATED BLOOD LOSS: 0 PATHOLOGY: none sent COMPLICATIONS: None Patient was transported to: same day Patient's condition: stable Indications: I have seen Marleni in clinic for symptoms of a trigger finger. The catching, clicking, locking, and pain limited function. The diagnosis of trigger finger was evident. The symptoms had not responded to conservative measures. I discussed trigger finger release with the patient. I reviewed the risks of the procedure to include, but not limited to, bleeding, infection, pain, stiffness, incomplete release, damage to nerves or vessels, continued catching, recurrence. Despite these risks, the patient elected to proceed. Findings: There was a tightened A1 lupe which was released. The flexor tendons were inspected and the patient was able to move the finger without any catching, clicking, or locking. Procedure Description: Marleni was greeted in the preoperative holding area where the correct side was identified and marked. The consent was reviewed with the patient and signed. All questions were answered. She was taken back to the operating room. The patient was placed into the supine position on the operating room table with the left arm on an arm board. All bony prominences were well padded. No prophylactic antibiotics were administered since this was a clean, elective hand surgical case. The left arm was then prepped with Chloraprep and draped in a standard fashion with stockinette and extremity drape. A timeout to confirm correct identity, side and site, procedure, allergies, anesthesia, and medical concerns was performed. The surgical site was marked as a longitudinal incision directly over the A1 lupe of the involved digit. This was confirmed with palpation during finger flexion. This area, overlying the metacarpal head, was then anesthetized with 1% Lidocaine. The patient tolerated this well and once the anesthetic had setup, the procedure began. A longitudinal incision was made through skin only, approximately 1cm. The deep tissues were dissected bluntly. Once the A1 lupe and flexor tendons were identified the soft tissue including neurovascular structures were retracted medially and laterally. There were no crossing structures over the A1 lupe. The proximal edge of the lupe was identified and the lupe was incised with tenotomy scissors. There was a release of the tendons once this was fully released. The tendons were then removed from the wound and inspected. Excess synovium was resected. The tendons were then returned and the patient was asked to move the finger into deep flexion and back to extension. There was no recreation of the pre-operative symptoms. The hand was then once more inspected for any A0 lupe or area of possible constriction. The wound was then irrigated and the skin was closed with a 4-0 Nylon. This was dressed with gauze and a Conform dressing. The patient tolerated the procedure well and was returned to the Same Day Surgery area in a stable condition suffering no known complication.
== END 2024-08-03 13:08 | disposition home or self-care (01) ==
LOC: SUR 10:34
PROVIDERS: PCP Nurse Practitioner Family; Visit Provider Student in an Organized Health Care Education/Training Program
PROC: (CPT 26055; principal; 2024-08-03 13:30)
DX: M65.342 Trigger finger, left ring finger (principal)
CPT/HCPCS: 26055; J2004

== ENCOUNTER 2024-09-30 03:03 | Outpatient (CLI) | payer MEDICAID, SELFPAY ==
[2024-09-30 10:12] LABS: Anion Gap 11.6 mmol/L (3-11); BUN 14 mg/dL (7-18); CO2 25.4 mmol/L (21.0-32.0); CREATININE 1.5 mg/dL (0.55-1.02); Calcium 9.4 mg/dL (8.5-10.1); Calculated LDL 52 mg/dL (<100); Chloride 105 mmol/L (98-107); Cholesterol 142 mg/dL (<200); Estimated GFR 38.67 (mL/min/1.73m2); Glucose 212 mg/dL (74-106); HDL Cholesterol 52 mg/dL (40-60); Sodium 142 mmol/L (136-145); Triglyceride 193 mg/dL (<150)
== END 2024-09-30 03:04 | disposition home or self-care (01) ==
LOC: LBO 03:03
PROVIDERS: PCP Nurse Practitioner Family; Referring Provider Nurse Practitioner Family; Visit Provider Nurse Practitioner Family
DX: N18.32 Chronic kidney disease, stage 3b (principal); E11.43 Type 2 diabetes mellitus with diabetic autonomic (poly)neuropathy
CPT/HCPCS: 36415; 80048; 80061

== ENCOUNTER 2024-10-05 07:49 | Outpatient (CLI) | payer MEDICAID, SELFPAY ==
--- NOTE | 2024-10-05 09:30 | DI.US_ITS ---
Exam(s) US RENAL EXAM: US RENAL CLINICAL HISTORY: ? retention, please do PVR R33.9 RETENTION URINE. TECHNIQUE: [place] scale, color and spectral Doppler were used. COMPARISON: US US RENAL from 09/09/[address] RENAL COLIC WO from 06/24/2024 FINDINGS: Renal size in cm: Right: 5.4. Left: 9.6. Echogenicity: There is again noted an atrophic right kidney. Hydronephrosis: No. Cyst or mass: No. Nephrolithiasis: No. Other findings: None. Bladder:Normal. Ureteral jets: Right: Visualized and unremarkable. Left: Visualized and unremarkable. Prevoid vol:219 cc Postvoid vol:43 cc Renal color flow: Symmetric and within normal limits. IMPRESSION: 1. There is again seen an atrophic right kidney. 2. Small postvoid urinary residual of 43 cc. DATA REPOSITORY:
== END 2024-10-05 08:09 ==
PROVIDERS: PCP Nurse Practitioner Family; Visit Provider Nurse Practitioner Family
DX: R33.9 Retention of urine, unspecified (principal)
CPT/HCPCS: 76770

== ENCOUNTER 2024-10-05 09:24 | Outpatient (REF) | payer MEDICAID, SELFPAY | END 2024-10-05 09:25 | disposition home or self-care (01) | LOC: LBN 09:24 | PROVIDERS: PCP Nurse Practitioner Family; Visit Provider Nurse Practitioner Family | DX: R10.2 Pelvic and perineal pain (principal); R82.998 Other abnormal findings in urine; R39.9 Unspecified symptoms and signs involving the genitourinary system; E11.42 Type 2 diabetes mellitus with diabetic polyneuropathy | CPT/HCPCS: 87086 ==

== ENCOUNTER 2024-10-06 16:10 | Outpatient (REF) | payer MEDICAID, SELFPAY | END 2024-10-06 16:11 | disposition home or self-care (01) | LOC: LBN 16:10 | PROVIDERS: PCP Nurse Practitioner Family; Visit Provider Nurse Practitioner Family | DX: R10.2 Pelvic and perineal pain (principal); R82.998 Other abnormal findings in urine; R39.9 Unspecified symptoms and signs involving the genitourinary system; E11.42 Type 2 diabetes mellitus with diabetic polyneuropathy; Z12.39 Encounter for other screening for malignant neoplasm of breast | CPT/HCPCS: 87086; 87480; 87510; 87660 ==

== ENCOUNTER 2025-01-27 02:09 | Outpatient (CLI) | payer MEDICAID, SELFPAY ==
--- NOTE | 2025-01-27 07:15 | DI.RAD_ITS ---
Exam(s) XR CHEST 2V PA LATERAL EXAM: XR CHEST 2V PA LATERAL CLINICAL HISTORY: F/u pneumonia, COUGH, SOB,r06.02 TECHNIQUE: 2D digital imaging was performed. Two views. COMPARISON: CT CT CHEST WO from 01/09/2024 CR,RF RF BARIUM SWALLOW from 01/19/2024 CR XR CHEST 2V PA LATERAL from 04/12/2024 FINDINGS: HEART: Normal size. Aorta: Not dilated. PULMONARY VASCULATURE: Normal. MEDIASTINUM: Unremarkable. LUNGS: Linear scarring medial right lung base, otherwise clear. PLEURAL SPACE: No pleural effusion or pneumothorax. BONE:Unremarkable for age. SOFT TISSUES: Unremarkable. IMPRESSION: No acute abnormality. DATA REPOSITORY: RADIATION DOSE DELIVERED:
== END 2025-01-27 02:29 ==
LOC: DI 02:09
PROVIDERS: PCP Nurse Practitioner Family; Visit Provider Nurse Practitioner Family
DX: R06.02 Shortness of breath (principal)
CPT/HCPCS: 71046

== ENCOUNTER 2025-01-27 12:00 | Outpatient (REF) | payer MEDICAID, SELFPAY ==
[2025-01-28 11:33] LABS: Campylobacter PCR Negative (Negative); Salmonella PCR Negative (Negative); Shiga Toxin PCR Negative (Negative); Shigella/Enteroinvasive Ecoli Negative (Negative)
== END 2025-01-27 12:01 | disposition home or self-care (01) ==
LOC: LBN 12:00
PROVIDERS: PCP Nurse Practitioner Family; Visit Provider Nurse Practitioner Family
DX: R19.7 Diarrhea, unspecified (principal); E11.42 Type 2 diabetes mellitus with diabetic polyneuropathy; R06.02 Shortness of breath; R21 Rash and other nonspecific skin eruption
CPT/HCPCS: 87493; 87505; 82272; 87177

== ENCOUNTER 2025-02-25 00:48 | Outpatient (CLI) | payer MEDICAID, SELFPAY ==
--- NOTE | 2025-02-25 14:26 | DI.CT_ITS ---
Exam(s) CT CHEST WO EXAM: CT CHEST WO CLINICAL HISTORY: hx lung CA,emphysema lung,cough,chronic obstructive lung disease. TECHNIQUE: Imaging protocol: Axial computed tomography images were obtained and coronal and sagittal reformatted images were created and reviewed. Computer aided detection (CAD) was utilized. CONTRAST MATERIAL: Noncontrast COMPARISON: CT CT CHEST WO from 01/09/2024 CR XR CHEST 2V PA LATERAL from 01/27/2025 FINDINGS: Pulmonary parenchyma: Resection of the majority of the left lower lobe. Suture material. Stable are a of scarring. No consolidation. Interstitial changes: None. Emphysema: Mdhw-jj-egshduvh centrilobular emphysema. Tracheobronchial tree: No mucous plugging. No bronchiectasis . Pleura: On pleural thickening arm is seen at the medial lung base. Trace pleural effusion. The find ings are new when compared the previous exam. No pneumothorax. Heart: The left ventricle and left atrium are moderately dilated. The coronary arteries show minimal calcifications. Aorta: Thoracic aorta non-dilated. Mild atherosclerotic changes. Lymph nodes: No enlarged lymph nodes. Bones: Minimal degenerative changes are seen. Stable T12 compression fracture. No lytic or blasti c lesions. Upper abdomen: Atrophic right kidney. Soft tissues: Unremarkable. IMPRESSION: Postsurgical changes of the right lower lobe. Area of scarring. No recurrence mass. New tiny right pleural effusion and medial pleural thickening. RADIATION DOSE DELIVERED: Total DLP Total DLP DATA REPOSITORY: All CT scans at this facility are submitted to the National Radiology Data Registry (NRDR) Dose Index Registry (DIR) with the [employer] (A[employer]). RADIATION OPTIMIZATION: All CT scans at this facility use at least one of these dose optimization te chniques: automated exposure control; mA and/or kV adjustment per patient size (includes targeted exa ms where dose is matched to clinical indication); or iterative reconstruction.
== END 2025-02-25 01:08 ==
LOC: DI 00:48
PROVIDERS: PCP Nurse Practitioner Family; Visit Provider Nurse Practitioner Family
DX: J44.9 Chronic obstructive pulmonary disease, unspecified
CPT/HCPCS: 71250

== ENCOUNTER 2025-02-25 01:02 | Outpatient (CLI) | payer MEDICAID, SELFPAY ==
[2025-02-25 14:55] LABS: Abs Immature Grans 0.02 10^3/uL (0.0-0.06); Absolute Basophil Count 0.09 10^3/uL (0.0-0.2); Absolute Eosinophil Count 0.31 10^3/uL (0.0-0.7); Absolute Lymphocyte Count 4.12 10^3/uL (1.2-3.4); Absolute Monocyte Count 0.74 10^3/uL (0.1-0.8); Absolute Neutrophil Count 4.64 10^3/uL (1.2-6.7); Basophils % 0.9 %; Eosinophils % 3.1 %; HCT 40.1 % (36.0-46.0); HGB 13.2 g/dL (11.2-15.7); Immature Grans % 0.2 %; Lymphocytes % 41.5 %; MCH 30.1 pg (27.0-33.0); MCHC 32.9 % (32.0-36.0); MCV 92 fL (80-95); MPV 9.5 fL (8.0-11.0); Monocytes % 7.5 %; Neutrophils % 46.8 %; Platelet Count 303 10^3/uL (130-400); RBC 4.38 10^6/uL (3.93-5.22); RDW 13.4 % (11.7-14.6); RDW-SD 45.5 fL; WBC 9.92 10^3/uL (4.4-10.8)
[2025-02-25 15:14] LABS: Anion Gap 8.8 mmol/L (3-11); BUN 15 mg/dL (7-18); CO2 28.2 mmol/L (21.0-32.0); CREATININE 1.2 mg/dL (0.55-1.02); Chloride 107 mmol/L (98-107); Estimated GFR 50.55 (mL/min/1.73m2); Glucose 99 mg/dL (74-106); Potassium 4.1 mmol/L (3.5-5.1); Sodium 144 mmol/L (136-145); TSH (W/Ref FT4) 1.97 uIU/mL (0.36-3.74); Vitamin B12 293 pg/mL (193-986)
== END 2025-02-25 01:03 | disposition home or self-care (01) ==
LOC: LBO 01:02
PROVIDERS: Absent Provider Nurse Practitioner Family; PCP Nurse Practitioner Family; Referring Provider Nurse Practitioner Family; Visit Provider Nurse Practitioner Family
DX: I10 Essential (primary) hypertension (principal); N18.32 Chronic kidney disease, stage 3b; E03.9 Hypothyroidism, unspecified; G62.9 Polyneuropathy, unspecified; C34.31 Malignant neoplasm of lower lobe, right bronchus or lung
CPT/HCPCS: 36415; 80048; 82607; 84443; 85025

== ENCOUNTER 2025-06-28 04:40 | Outpatient (CLI) | payer MEDICAID, SELFPAY ==
[2025-06-28 12:48] LABS: ALT 31 U/L (14-59); AST 18 U/L (15-37); Albumin 3.6 g/dL (3.4-5.0); Alkaline Phosphatase 113 U/L (46-116); Anion Gap 11.0 mmol/L (3-11); BUN 13 mg/dL (7-18); Bilirubin, Total 0.4 mg/dL (0.2-1.0); CO2 26.0 mmol/L (21.0-32.0); Calcium 9.2 mg/dL (8.5-10.1); Chloride 106 mmol/L (98-107); Estimated GFR 62.91 (mL/min/1.73m2); Glucose 156 mg/dL (74-106); Magnesium 1.5 mg/dL (1.8-2.4); Potassium 3.6 mmol/L (3.5-5.1); Sodium 143 mmol/L (136-145); Total Protein 7.1 g/dL (6.4-8.2)
[2025-06-28 12:51] LABS: Creatine Kinase 58 U/L (26-192)
== END 2025-06-28 04:41 | disposition home or self-care (01) ==
LOC: LBO 04:40
PROVIDERS: PCP Nurse Practitioner Family; Visit Provider Nurse Practitioner Family
DX: I73.9 Peripheral vascular disease, unspecified (principal); R79.0 Abnormal level of blood mineral; I10 Essential (primary) hypertension
CPT/HCPCS: 36415; 80053; 82550; 83735

== ENCOUNTER 2025-08-11 04:16 | Outpatient (CLI) | payer MEDICARE, MEDICAID, SELFPAY ==
[2025-08-11 10:26] LABS: HCT 42.4 % (36.0-46.0); HGB 13.9 g/dL (11.2-15.7); MCH 29.4 pg (27.0-33.0); MCHC 32.8 % (32.0-36.0); MCV 90 fL (80-95); MPV 9.6 fL (8.0-11.0); Platelet Count 272 10^3/uL (130-400); RBC 4.73 10^6/uL (3.93-5.22); RDW 13.6 % (11.7-14.6); RDW-SD 44.5 fL; WBC 11.11 10^3/uL (4.4-10.8)
[2025-08-11 11:04] LABS: ALT 16 U/L (14-59); AST < 5 U/L (15-37); Albumin 3.6 g/dL (3.4-5.0); Alkaline Phosphatase 109 U/L (46-116); Anion Gap 11.9 mmol/L (3-11); BUN 13 mg/dL (7-18); Bilirubin, Total 0.3 mg/dL (0.2-1.0); CO2 24.1 mmol/L (21.0-32.0); Calcium 9.5 mg/dL (8.5-10.1); Chloride 107 mmol/L (98-107); Estimated GFR 56.11 (mL/min/1.73m2); Glucose 117 mg/dL (74-106); Lipase 69 U/L (<78); Potassium 4.0 mmol/L (3.5-5.1); Sodium 143 mmol/L (136-145); Total Protein 7.1 g/dL (6.4-8.2)
== END 2025-08-11 04:17 | disposition home or self-care (01) ==
LOC: LBO 04:16
PROVIDERS: PCP Nurse Practitioner Family; Visit Provider Nurse Practitioner Family
DX: R10.9 Unspecified abdominal pain (principal)
CPT/HCPCS: 36415; 80053; 83690; 85027

== ENCOUNTER → 2025-08-12 11:29 | Outpatient (BNVA) | payer MEDICARE, MEDICAID, SELFPAY | PROVIDERS: PCP Nurse Practitioner Family; Referring Provider Nurse Practitioner Family; Visit Provider Surgery | DX: K92.1 Melena (principal); R10.13 Epigastric pain; Z86.0109 Personal history of other colon polyps; Z72.0 Tobacco use | CPT/HCPCS: 99214 ==

== ENCOUNTER 2025-08-18 06:19 | Day surgery (SDC) | payer MEDICARE, MEDICAID, SELFPAY ==
[2025-08-18 06:40] VITALS: BP 121/109; PULSE 79; RESP 20; TEMP 36.4; O2SAT 99
[2025-08-18] MEDS: Lactated Ringers 1,000 ML 80 ML IV (06:52)
[2025-08-18 07:21] VITALS: BMI 26.6
--- NOTE | 2025-08-18 07:21 | W.ANESPRE ---
General Info Date of Service Date Performed: 08/18/25 Height: 5 ft 1 in Weight: 63.9 kg Body Mass Index (BMI): 26.6 Surgical Procedure: Operation Date: 08/18/25 07:35 Proposed Procedure Side Surgeon p Colonoscopy/Gastroscopy Meg Fields MD Actual Procedure Side Surgeon p Colonoscopy/Gastroscopy Not Applicable Meg Fields MD Meds Allergies and Home Medications Allergies Allergy/AdvReac Type Severity Reaction Status Date / Time prochlorperazine (From Allergy Severe Psychosis Verified 08/18/25 06:25 Compazine) prochlorperazine edisylate Allergy Severe Psychosis Verified 08/18/25 06:25 (From Compazine) prochlorperazine maleate Allergy Severe Psychosis Verified 08/18/25 06:25 (From Compazine) gluten Allergy Other (See Verified 08/18/25 06:25 Comment) trazodone Allergy Other (See Verified 08/18/25 06:25 Comment) sitagliptin (From Januvia) AdvReac Other (See Verified 08/18/25 06:25 Comment) Home Medication ?Medication ?Instructions ?Recorded Marijuana Edibles 1 tab PO PRN PRN 03/11/23 fluticasone propionate 230 2 puff inhalation BID 03/11/23 mcg-salmeterol 21 mcg/actuation HFA inhaler (Advair HFA) calcium 650 mg-vitamin D3 12.5 1 tab PO DAILY 03/02/24 mcg-vitamin K 40 mcg chewable tablet (Viactiv) albuterol sulfate 90 mcg/actuation 2 puff inhalation Q4H PRN 04/29/24 aerosol inhaler (Ventolin HFA) blood sugar diagnostic (OneTouch 04/29/24 Verio test strips) 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 meter (OneTouch 04/29/24 Verio Flex Meter) cane 04/29/24 catheter 14 Fr-6 (Personal 04/29/24 Catheter Intermittent) lancets 33 gauge (OneTouch Delica 04/29/24 Plus Lancet) umeclidinium 62.5 mcg-vilanterol 1 inh inhalation DAILY 04/29/24 25 mcg/actuation powdr for inhalation (Anoro Ellipta) wcdxblde-katt-tixs 8 mg-folic 400 1 tab PO DAILY 05/19/24 mcg-K 50 mcg-lutein 300 mcg tablet (Multivitamin Women 50 Plus) naloxone 4 mg/actuation nasal 4 mg intranasal Q2-3M PRN 07/02/24 spray (Narcan) pen needle, diabetic 31 gauge x #100 ea 11/05/24 5/16 (Easy Comfort Pen Mineral) 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 sensor (Dexcom G7 #9 ea 12/10/24 Sensor device) 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,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,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 #1 ea 12/10/24 (Dexcom G7 Billet Header) acetaminophen 500 mg tablet 1,000 mg PO TID PRN 03/30/25 vitamin B12 500 mcg-folic acid 400 1 tab PO DAILY #30 tabs 03/30/25 mcg tablet insulin glargine 100 unit/mL (3 See Rx Instructions .Route 04/07/25 mL) subcutaneous pen (Lantus .COMPLEX #15 mL Solostar U-100 Insulin) artificial tears(hypromellose) 0.3 See Rx Instructions ophthalmic 05/17/25 % eye drops (eye) .COMPLEX PRN dry eye(s) atorvastatin 10 mg tablet See Rx Instructions .Route 06/01/25 .COMPLEX #90 tabs levothyroxine 100 mcg tablet See Rx Instructions .Route 06/01/25 .COMPLEX #90 tabs lisinopril 20 mg tablet 20 mg PO DAILY htn #90 tabs 06/08/25 gabapentin 100 mg capsule See Rx Instructions .Route 06/10/25 .COMPLEX #120 caps gabapentin 400 mg capsule 800 mg (2 x 400 mg) PO QHS #60 caps 06/10/25 blood pressure monitor #1 ea 07/08/25 magnesium 250 mg tablet 250 mg PO DAILY #30 tabs 07/08/25 celecoxib 50 mg capsule See Rx Instructions .Route 07/29/25 Held on 07/30/25. .COMPLEX #60 caps Instructions: ? gi bleed metoprolol tartrate 50 mg tablet 50 mg PO BID #180 tabs 07/29/25 simethicone 250 mg capsule (Gas-X) 250 mg PO DAILY PRN 07/29/25 clonazepam 0.5 mg tablet (Klonopin) 1 mg (2 x 0.5 mg) PO DAILY PRN 08/09/25 anxiety #60 tabs bisacodyl 5 mg tablet,delayed 5 mg PO ONCE #4 tabs 08/12/25 release (Dulcolax (bisacodyl)) pantoprazole 40 mg tablet,delayed 40 mg PO DAILY #30 tabs 08/12/25 release polyethylene glycol 3350 17 17 g PO ONCE #238 grams 08/12/25 gram/dose oral powder sucralfate 1 gram tablet 1 g PO QACHS 30 days #120 tabs 08/12/25 Current Visit Medications: Current Medications Generic Name Dose Route Start Last Admin Trade Name Shy PRN Reason Stop Dose Admin Ringer's Solution 1,000 mls @ 80 mls/hr 08/18/25 06:00 08/18/25 06:52 IV 08/18/25 23:59 80 mls/hr INFUSION NIVIA Administration IV Miscellaneous Supplies 1 each 08/18/25 06:00 Iv Access IV 08/18/25 23:59 DIRECTED NIVIA Sodium Biphosphate/Sodium Phosphate 133 ml 08/18/25 06:00 Na Phosphate Enema-Adult 133 Ml Btl NJ 08/18/25 23:59 DIRECTED PRN Sodium Chloride 0 ml 08/18/25 06:00 Normal Saline Flush 10 Ml Syr IV 08/18/25 23:59 PRN PRN Sodium Chloride 0 ml 08/18/25 06:00 Normal Saline 10 Ml Vial IJ 08/18/25 23:59 DIRECTED PRN Sterile Water 0 ml 08/18/25 06:00 Water,Injection,Sterile 10 Ml Vial IJ 08/18/25 23:59 DIRECTED PRN PFSH Active Problems Active Problems: Problem Status Onset Code Epigastric pain Acute R10.13 Nevus Acute D22.9 Rectal bleed Acute K62.5 Low magnesium level Acute R79.0 Trigger finger, left index finger Acute M65.322 PVD (peripheral vascular disease) Chronic I73.9 Claudication of both lower extremities Acute I73.9 Atherosclerosis of artery of both lower extremities Acute I70.203 Lumbar spondylosis Acute M47.816 Joint pain in both hands Acute M25.541, M25.542 Lung cancer, lower lobe Acute C34.30 Neuropathy Acute G62.9 Trigger finger, right ring finger Acute M65.341 Melena Acute K92.1 Chronic obstructive lung disease Chronic J44.9 Other idiopathic peripheral autonomic neuropathy Acute G90.09 Insomnia Acute G47.00 Generalized anxiety disorder Acute F41.1 Obesity Chronic E66.9 Magnesium deficiency Acute E61.2 Hyperlipidemia Acute E78.5 Hypothyroidism Chronic E03.9 Chronic sinusitis Acute J32.9 Essential hypertension Acute I10 Complex regional pain syndrome type 1 Acute G90.50 Adjustment disorder with mixed disturbance of emotions and conduct Acute F43.25 Benign neoplasm of colon Acute D12.6 Stage 3b chronic kidney disease (CKD) Acute N18.32 Dysphasia Acute R47.02 Other specified peripheral vascular diseases Acute I73.89 Diabetes mellitus with autonomic neuropathy Acute E11.43 Type 2 diabetes mellitus with peripheral neuropathy Acute E11.42 Lateral epicondylitis, left elbow Acute M77.12 Tubular adenoma Acute D36.9 Emphysema lung Acute J43.9 MEHTA (dyspnea on exertion) Acute R06.09 Encounter for screening for malignant neoplasm of colon Acute Z12.11 Abdominal pain Acute R10.9 Gastritis Acute K29.70 Esophagitis determined by endoscopy Acute K20.9 Dysphagia Acute R13.10 Retention of urine Acute 18 R33.9 GERD (gastroesophageal reflux disease) Acute 14 K21.9 Chronic pain Acute 14 G89.29 IBS Acute CELIAC DISEASE Acute Medical History Medical History Ear itch Rash Changes in vision Otalgia of right ear UTI symptoms Tinea pedis Acute flank pain History of psychiatric disorder Genitourinary symptoms Sleep disorder Low back pain Gastroesophageal reflux disease without esophagitis Type 2 diabetes mellitus Tobacco abuse Urinary obstruction Urinary tract infectious disease Abdominal distension Dyspnea Acute kidney injury Acute exacerbation of chronic obstructive airways disease Acute cough SOB (shortness of breath) on exertion worsening pt continues to smoke Chronic kidney disease (CKD) stage G3b/A1, moderately decreased glomerular filtration rate (GFR) between 30-44 mL/min/1.73 square meter and albuminuria creatinine ratio less than 30 mg/g Nausea Non-small cell lung cancer right-pt. states she is in remission since 2019 IBS (irritable bowel syndrome) Fibromyalgia Memory loss Recurrent UTI (urinary tract infection) Impingement syndrome of right shoulder Atrophic kidney Adjustment disorder with mixed emotional features Lumbar pain Steatosis, liver Shortness of breath Acute nontraumatic kidney injury Sleeping difficulties COPD, mild Seborrheic dermatitis Adenocarcinoma Paresthesia Foot pain Hyperparathyroidism due to renal insufficiency History of posttraumatic stress disorder (PTSD) Arm pain, left Knee pain, left Fatigue Chronic lower back pain Tubular adenoma of colon Headache, unspecified Myalgia Personal history of COVID-19 Renal insufficiency Sinusitis Neck mass Abnormal laboratory test Diabetes Trigger middle finger of left hand Lung cancer Treated at [facility] [place] [id number], pt states she is in remission Referred otalgia of right ear Chronic sinusitis of both maxillary sinuses Chronic rhinitis Viral syndrome Reflex sympathetic dystrophy Dizziness Tachycardia Blood glucose elevated Memory loss Elevated LFTs Peripheral neuropathy Dysphagia Depression (04/12/14) Essential hypertension (04/12/14) Bladder pain (03/05/18) Asymptomatic postmenopausal status (age-related) (natural) (01/30/12) URINARY INCON. RSD Hypertension HX TOBACCO USE GERD FYBROMYALGIA COUGH CHRONIC PAIN SYN CHRONIC BOWEL DISTURBANCE/CHRONIC CONSTIPATION ANXIETY STATE NOS Surgical History Surgical History Trigger finger, left ring finger S/P Release: 06/02/2024 History of lung surgery at [facility] [place]. Pt. lobectomy took 1/3 of her lung related to lung cancer 2018 History of colonoscopy with polypectomy (~08/02/22) Trigger finger of right thumb S/P release: 05/02/2021 H/O esophagogastroduodenoscopy (~12/2023) biopsies S/P rotator cuff repair History of esophagogastroduodenoscopy (EGD) Ligation of fallopian tube Rotator Cuff Repair (~2007) Bladder Surgery Sling Procedure ovidioith Dr Moreno Tobacco Smoking/Tobacco Use Status: Former Tobacco Use Second hand exposure: No Alcohol Alcohol Intake: never Substance Use Substance use: Occasionally Substance use type: marijuana Prental History History 4 Para 2 Hx # Term Pregnancies Multiple births Hx # Pregnancies Ectopic pregnancies AB induced Hx Number of Living Children AB spontaneous Vital Signs and Lab Results Vital Signs Most Recent Vital Signs in EMR: Most Recent Vital Signs Temp Pulse Resp BP Pulse Ox 36.4 C L 79 20 121/109 H 99 08/18/25 06:40 08/18/25 06:40 08/18/25 06:40 08/18/25 06:40 08/18/25 06:40 Point of Care Results Point of Care Results: Finger Stick Blood Glucose 114 08/18/25 06:32 Lab Results Complete Blood Count: WBC, (4.4-10.8) 11.11 10^3/uL H 08/11/25, 10:12 RBC, (3.93-5.22) 4.73 10^6/uL 08/11/25, 10:12 Hgb, (11.2-15.7) 13.9 g/dL 08/11/25, 10:12 Hct, (36.0-46.0) 42.4 % 08/11/25, 10:12 Plt Count, (130-400) 272 10^3/uL 08/11/25, 10:12 Complete Metabolic Panel: Sodium, (136-145) 143 mmol/L 08/11/25, 10:12 Potassium, (3.5-5.1) 4.0 mmol/L 08/11/25, 10:12 Chloride, (98-107) 107 mmol/L 08/11/25, 10:12 Carbon Dioxide, (21.0-32.0) 24.1 mmol/L 08/11/25, 10:12 BUN, (7-18) 13 mg/dL 08/11/25, 10:12 Creatinine, (0.55-1.02) 1.1 mg/dL H 08/11/25, 10:12 Est GFR (CKD-EPI 2020), (mL/min/1.73m2) 56.11 08/11/25, 10:12 Calcium, (8.5-10.1) 9.5 mg/dL 08/11/25, 10:12 Albumin, (3.4-5.0) 3.6 g/dL 08/11/25, 10:12 Glucose, (74-106) 117 mg/dL H 08/11/25, 10:12 Liver Function Panel: ALT, (14-59) 16 U/L 08/11/25, 10:12 AST, (15-37) < 5 U/L L 08/11/25, 10:12 Pancreas Panel: Lipase, (<78) 69 U/L 08/11/25, 10:12 Imaging and Studies Imaging and Studies Study information below may be from another EMR and interpreted by another provider. Please see original notes in EMR for more complete details. Echocardiogram Summary: Date of Exam: 04/06/20ex: F Admission Date: 04/06/20 : 1960 Age: 59 Exam(s) a US:US echocardiogram APPROVED REPORT EXAM: Comprehensive 2D, Doppler, and color-flow Echocardiogram Patient Location: Out-Patient Student Truck Driver: Binta Mcmillan RDCS (AE) Indications: Lung Cancer, s/p Chemo, SOB Other Information Study Quality: Good Conclusion Normal left ventricular wall thickness and chamber size. Estimated ejection fraction is 55 to 60%. There are no segmental wall motion abnormalities. There is no chamber enlargement Aortic valve leaflets are mildly thickened. There is trace aortic regurgitation The mitral, tricuspid, and pulmonic valves are structurally normal. There is mild mitral regurgitation. There is trace tricuspid and pulmonic regurgitation RVSP could not be estimated Pulmonary Function Summary: Date of service: 07/25/22 Time of Service: 13:13 Pulmonary Function Test Result Requesting Provider Miladis Victoria Indications: Preoperative clearance for colonoscopy Interpretation Spirometry: There is no airflow limitation. There is no significant bronchodilator response. Lung Volumes: Lung volumes are normal. Diffusion Capacity: The diffusion is reduced. Airway Pressure: Normal airways resistance. Impression No airflow obstruction but there is a reduced diffusion. Note: The diffusion has slightly decreased when compared to 2011 when when accounting for aging. Clinical Correlation therefore is recommended. Anesthesia Assessment and Plan Anesthesia History Personal History: No History of Anesthesia Complications Family History: No Family History of Anesthesia Complications Exercise Tolerance Exercise Tolerance: Metabolic Equivalents>4 Pertinent Negatives Pertinent Negatives: No Symptoms of GERD Cardiac & Pulmonary Exam Cardiac Exam: Normal S1/S2 Heart Sounds Pulmonary Exam: Clear Bilateral Breath Sounds Implantable Cardiac Device Does patient have a Pacemaker or an ICD?: No Airway Exam Known Difficult Airway: No Mallampati Class: 1 Mouth Opening: Normal (> 3cm) Thyromental Distance: Greater than 3 cm Neck Range of Motion: Full ROM Neck Circumference: Normal Teeth Condition: Edentulous ASA Classification ASA Score: ASA 3 Emergency Case?: No NPO Status NPO Status: NPO Clears >2 hours, Solids >8 hours Anesthesia Plan Resuscitation Status: Full Code Anesthesia Technique: General Anesthesia Airway Planned: Natural Airway Monitors Used: Standard Monitors
--- NOTE | 2025-08-18 07:39 | BOWEL_PTH ---
PATIENT: Marleni Christianson LOC: [facility] U#:[id number] AGE/SX: 64/F ROOM: RE08/18/[address]: Meg Fields MD : 1960 BED: DIS: 08/18/2025 SPEC #: [id number] RECD: 08/18/25 12:20 STATUS: BASIM Rico #: [id number] LINDA: 08/18/25 07:[address]: Meg Fields DEPT: Surgical Specimen RECD BY: Leslie Younger ENTERED: 08/18/25 12:23 SP TYPE: Bowel OTHR DR: Kathy Wright APRN Tissues: 1 - STOMACH BIOPSY 2 - STOMACH BIOPSY 3 - BIOPSY BOWEL 4 - BIOPSY BOWEL Procedures: GROSS AND MICRO LEVEL 4 Comments: [id number]
--- NOTE | 2025-08-18 07:43 | W.PM.ENDDOP ---
Date of service: 08/18/25 Time of Service: 07:43 Endoscopy Report DATE OF PROCEDURE: 08/18/25 PRE-OP DIAGNOSIS: Epigastric pain, rectal bleeding, melena POST-OP DIAGNOSIS: same (gastritis, gastric polyps) PROCEDURE: EGD with biopsy SURGEON: Meg Fields ANESTHESIA TYPE: General:No Airway ESTIMATED BLOOD LOSS: 2 PATHOLOGY: other (1. antrum biopsy. 2. gastric polyps (cardia)) COMPLICATIONS: None DISPOSITION: same day INDICATIONS: Evaluation of upper digestive system for epigastric pain and GI bleeding source/cause PROCEDURE DESCRIPTION: Lubricated endoscope was passed through a bite block into the second portion of the duodenum. The endoscope was withdrawn and the duodenum stomach and esophageal mucosa examined. The duodenum appeared normal overall. There is no inflammation or ulceration or erosion. The antrum appears inflamed, moderate in degree. No ulcers. No erosions. The fundus appears normal. The cardia appears normal with two small adjacent polyps removed piecemeal and sent together. There is no evidence of hiatal hernia upon retroflexion. The distal esophagus is normal without evidence of acute inflammation or ulceration, varices or candidiasis. The Z-line is regular and there is no evidence of Liu's esophagus. Remainder of the esophagus appears normal Cold forceps biopsies obtained from the duodenum the antrum for microscopic evaluation for H. pylori. The upper digestive system was desufflated and the endoscope withdrawn. No complications. Assessment and plan: Moderate gastritis. No ulcer or major findings otherwise to explain GI bleeding and pain. Continue pantoprazole. Office follow up in 2-4 weeksto review biopsy. Proceed with colonoscopy.
--- NOTE | 2025-08-18 08:02 | W.COLOREPORT ---
Date of service: 08/18/25 Time of Service: 08:02 Colonoscopy Report Pre-op diagnosis general: rectal bleeding, melena, abd pain Post-op diagnosis procedure note: same Procedure: Colonoscopy with biopsy Surgeon: Meg Fields Anesthesia Type: General:No Airway Estimated blood loss (mL): 2 Pathology: other (1. ascending colon biopsy. 2. transverse colon biopsy) Complications: None Indications: screening for colorectal cancer Prep: Miralax/Dulcolax (good) Procedure Description: Patient is here for routine screening colonoscopy. Informed consent was obtained and the patient was taken to the procedure area. The patient was placed in left lateral decubitus position on the procedure table. Timeout was performed. Anesthesia was induced. A lubricated colonoscope was inserted through the anus and passed to the cecum. The cecum was identified by the ileocecal valve and the appendiceal orifice. The scope was then slowly withdrawn and the colonic and rectal mucosa examined. Unable to successfully intubate the terminal ileum for assessment. There are no colon or rectal mass lesions, polyps, AVMs. No diverticulosis was seen. There is inflammatory change, friability and pinpoint mucosal bleeding through the ascending colon and transverse colon. No ulcerations, no pseudomembranes. Cold forceps biopsies obtained separately from asc colon and transverse colon. Unable to successfully retroflex at the anal junction due to narrow short segment. Uncomplicated external hemorrhoids without fissure or mass lesion. Normal TJ. Assessment and plan; Colitis of the ascending and transverse colon noted, biopsies obtained. This colitis is likely the cause of pain and bleeding. Will give cipro and flagyl for 7 days and await biopsy results. She has not had bloody diarrhea, just bleeding and pain, so suspicion for a shiga toxin is low. Next screening colonoscopy will be due in 10 years.
[2025-08-18 08:08] VITALS: BP 100/62; PULSE 72; RESP 18; TEMP 36.1; O2SAT 94
--- NOTE | 2025-08-18 08:09 | W.PM.DSUDISC ---
Date of service: 08/18/25 Discharge Plan Disposition Patient Disposition: Home Discharge Details Attending Provider: Meg Fields Primary Care Provider: Kathy Wright Recommendations for Follow Up Recommended tests to be ordered by follow up provider: follow up colitis symptoms and resolution. limit NSAID use, follow for biopsy results to ensure no inflammatory bowel disease. Home Meds and New Rx's Prescriptions: New ciprofloxacin HCl 500 mg tablet 500 mg PO BID Qty: 14 0RF metronidazole 500 mg tablet 500 mg PO BID Qty: 14 0RF Continued calcium-vitamin D3-vitamin K [Viactiv] 650 mg-12.5 mcg-40 mcg tablet,chewable 1 tab PO DAILY naloxone [Narcan] 4 mg/actuation spray,non-aerosol 4 mg intranasal Q2-3M PRN Rx Instructions: spray 1 dose into ONE nostril; alternate nostrils w each dose until help arrives acetaminophen 500 mg tablet 1,000 mg PO TID PRN vitamin H25-zziqq acid 500-400 mcg tablet 1 tab PO DAILY Qty: 30 3RF Rx Instructions: administer with a meal Multivitamin Women 50 Plus 8 mg iron-400 mcg-50 mcg tablet 1 tab PO DAILY lisinopril 20 mg tablet 20 mg PO DAILY Qty: 90 3RF clonazepam [Klonopin] 0.5 mg tablet 1 mg PO DAILY PRN (Reason: anxiety) Qty: 60 2RF (DME) blood pressure monitor Kit See Rx Instructions .Route Qty: 1 0RF Rx Instructions: As directed magnesium 250 mg tablet 250 mg PO DAILY Qty: 30 3RF Gas-X 250 mg capsule 250 mg PO DAILY PRN celecoxib 50 mg capsule See Rx Instructions .ROUTE .COMPLEX Qty: 60 1RF Dose Instruction: TAKE ONE CAPSULE BY MOUTH TWICE A DAY FOR JOINT PAIN Rx Instructions: TAKE ONE CAPSULE BY MOUTH TWICE A DAY FOR JOINT PAIN metoprolol tartrate 50 mg tablet 50 mg PO BID Qty: 180 2RF bisacodyl [Dulcolax (bisacodyl)] 5 mg tablet,delayed release (DR/EC) 5 mg PO ONCE Qty: 4 0RF Rx Instructions: Take per colonoscopy instructions provided by ordering providers office polyethylene glycol 3350 17 gram/dose powder 17 g PO ONCE Qty: 238 0RF Rx Instructions: Take per colonoscopy instructions provided by ordering providers office sucralfate 1 gram tablet 1 g PO QACHS 30 Days Qty: 120 0RF pantoprazole 40 mg tablet,delayed release (DR/EC) 40 mg PO DAILY Qty: 30 2RF Marijuana Edibles 1 tab PO PRN PRN fluticasone propion-salmeterol [Advair HFA] 230-21 mcg/actuation HFA aerosol inhaler 2 puff inhalation BID umeclidinium-vilanterol [Anoro Ellipta] 62.5-25 mcg/actuation blister with device 1 inh inhalation DAILY (DME) cane Device See Rx Instructions .Route Rx Instructions: As directed (DME) Personal Catheter Intermittent 14-6 Fr- misc See Rx Instructions .Route Rx Instructions: Use 1 catheter as directed three times per day as needed albuterol sulfate [Ventolin HFA] 90 mcg/actuation HFA aerosol inhaler 2 puff inhalation Q4H PRN (DME) lancets [OneTouch Delica Plus Lancet] 33 gauge misc See Rx Instructions .Route Rx Instructions: Use one lancet daily as directed (DME) 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 meter [OneTouch Verio Flex meter] Misc See Rx Instructions .Route Rx Instructions: As directed (DME) OneTouch Verio test strips Strip See Rx Instructions .Route Rx Instructions: Check blood sugar once daily as directed (DME) pen needle, diabetic [Easy Comfort Pen [place]] 31 gauge x 5/16 needle See Rx Instructions .Route Qty: 100 3RF Rx Instructions: Use one daily with insulin injection. DX:E11.9. Keep A1c below 7. May fill with whatever brand insurance will cover. (DME) Dexcom G7 Control Clerk Food [employer] Beverage Misc See Rx Instructions .Route Qty: 1 0RF Rx Instructions: As directed for DX:E11.9. Keep A1c below 7 (DME) Dexcom G7 Sensor Device See Rx Instructions .Route Qty: 9 3RF Rx Instructions: As directed for DX: E11.9. Keep A1c below 7 insulin glargine [Lantus Solostar U-100 Insulin] 100 unit/mL (3 mL) insulin pen See Rx Instructions .ROUTE .COMPLEX Qty: 15 3RF Dose Instruction: INJECT 5 UNIT UNDER THE SKIN EVERY MORNING Rx Instructions: INJECT 5 UNIT UNDER THE SKIN EVERY MORNING artificial tears(hypromellose) 0.3 % drops See Rx Instructions ophthalmic (eye) .COMPLEX PRN (Reason: dry eye(s)) Rx Instructions: into the eye(s) 4-5 x/day PRN; atorvastatin 10 mg tablet See Rx Instructions .ROUTE .COMPLEX Qty: 90 3RF Dose Instruction: TAKE ONE TABLET BY MOUTH EVERY DAY Rx Instructions: TAKE ONE TABLET BY MOUTH EVERY DAY levothyroxine 100 mcg tablet See Rx Instructions .ROUTE .COMPLEX Qty: 90 3RF Dose Instruction: TAKE ONE TABLET BY MOUTH EVERY DAY Rx Instructions: TAKE ONE TABLET BY MOUTH EVERY DAY gabapentin 400 mg capsule 800 mg PO QHS Qty: 60 3RF gabapentin 100 mg capsule See Rx Instructions .ROUTE .COMPLEX Qty: 120 3RF Dose Instruction: TAKE TWO CAPSULES BY MOUTH EVERY MORNING; THEN TAKE TWO CAPSULES BY MOUTH AT BEDTIME ALONG WITH 400MG DOSE OF GABAPENTIN Rx Instructions: TAKE TWO CAPSULES BY MOUTH EVERY MORNING; THEN TAKE TWO CAPSULES BY MOUTH AT BEDTIME ALONG WITH 400MG DOSE OF GABAPENTIN Discharge Instructions Additional Instructions: Colitis of the ascending and transverse colon noted, biopsies obtained. This could be from celebrex use or could be an infectin. The biopsies will help us to know. This colitis is likely the cause of pain and bleeding. Will give cipro and flagyl, two antibiotics, for 7 days and await biopsy results. Next colonoscopy will be due in 2027. Stand Alone Forms: Anesthesia Discharge Inst., DSU Post EGD Instructions, Colonoscopy Post Instructions, [facility] ([facility]) Discharge Orders Discharge Orders: Discharge Order (Routine); Ordered 08/18/25 Ordered By: Meg Fields DS: Diagnosis Discharge Diagnosis (1) Gastritis: Status: Acute (2) Rectal bleed: Status: Acute (3) Epigastric pain: Status: Acute (4) Melena: Status: Acute (5) Colitis with rectal bleeding: Status: Acute
--- NOTE | 2025-08-18 08:17 | W.ANESPOSTOP ---
Postoperative Evaluation Date, Time and Location Date Performed: 08/18/25 Time Performed: 08:17 Patient Location: Day Surgery Unit Vital Signs Most Recent Imported Vital Signs: Most Recent Vital Signs Temp Pulse Resp BP Pulse Ox 36.1 C L 72 18 100/62 94 08/18/25 08:08 08/18/25 08:08 08/18/25 08:08 08/18/25 08:08 08/18/25 08:08 Pain Score Most Recent Pain Score: Most Recent Pain Score Pain Level 0 08/18/25 08:08 Assessment Mental Status: Awake (Alert & Oriented to Patient Baseline) Airway and Respiratory Function: Patent airway with normal (patient baseline) respiratory exam Cardiovascular Function: Hemodynamically Stable Hydration Status: Adequately Hydrated Nausea & Vomiting: No Nausea or Vomiting Pain: Pt. Denies Any Pain Peripheral Nerve Block: Patient did not receive a nerve block
[2025-08-18 08:37] VITALS: BP 97/49; PULSE 67; RESP 16; TEMP 36.1; O2SAT 96
== END 2025-08-18 08:48 | disposition home or self-care (01) ==
LOC: SUR 06:19
PROVIDERS: PCP Nurse Practitioner Family; Visit Provider Surgery
PROC: (CPT 43239; principal; 2025-08-18 07:30)
DX: K29.00 Acute gastritis without bleeding (principal); K62.5 Hemorrhage of anus and rectum; R10.13 Epigastric pain; K52.9 Noninfective gastroenteritis and colitis, unspecified; K31.7 Polyp of stomach and duodenum
CPT/HCPCS: 43239; 45380; 88305; J2003; J2704

== ENCOUNTER → 2025-10-07 09:42 | Outpatient (BNVA) | payer MEDICARE, MEDICAID, SELFPAY | PROVIDERS: PCP Nurse Practitioner Family; Referring Provider Nurse Practitioner Family; Visit Provider Surgery | DX: K52.9 Noninfective gastroenteritis and colitis, unspecified (principal); K62.5 Hemorrhage of anus and rectum; K21.00 Gastro-esophageal reflux disease with esophagitis, without bleeding; E11.42 Type 2 diabetes mellitus with diabetic polyneuropathy; F17.200 Nicotine dependence, unspecified, uncomplicated | CPT/HCPCS: 99214 ==

== ENCOUNTER → 2025-10-19 10:36 | Outpatient (BNVA) | payer MEDICARE, MEDICAID, SELFPAY | PROVIDERS: PCP Nurse Practitioner Family; Referring Provider Nurse Practitioner Family; Visit Provider Surgery | DX: L82.1 Other seborrheic keratosis (principal) | CPT/HCPCS: 11402 ==

== ENCOUNTER 2025-10-19 10:53 | Outpatient (REF) | payer MEDICARE, MEDICAID, SELFPAY ==
--- NOTE | 2025-10-19 10:55 | SKI_PTH ---
PATIENT: Marleni Christianson LOC: [facility] U#:[id number] AGE/SX: 65/F ROOM: RE10/19/[address]: Meg Fields MD : [id number] BED: DIS: 10/19/2025 SPEC #: [id number] RECD: 10/19/25 12:45 STATUS: [facility] [place] #: [id number] LINDA: 10/19/25 10:[address]: Meg Fields DEPT: Surgical Specimen RECD BY: Leslie Younger ENTERED: 10/19/25 12:45 SP TYPE: NENO MATA DR: Kathy Wright APRN Tissues: 1 - SKIN BIOPSY(SHAVE/PUNCH) Procedures: SKIN LEVEL 4 Comments: [id number]
== END 2025-10-19 10:54 | disposition home or self-care (01) ==
LOC: LBN 10:53
PROVIDERS: PCP Nurse Practitioner Family; Visit Provider Surgery
DX: L82.1 Other seborrheic keratosis (principal)
CPT/HCPCS: 88305

== ENCOUNTER → 2025-10-24 02:11 | Outpatient (CLI) | payer MEDICARE, MEDICAID, SELFPAY ==
--- NOTE | 2025-10-24 07:15 | DI.CT_ITS ---
Exam(s) CT ABDOMEN PELVIS CTA EXAM: CT ABDOMEN PELVIS CTA CLINICAL HISTORY: re-eval colitis and check for vascular/ischemia,rectal bleeding. TECHNIQUE: Imaging Protocol: Axial CT angiography was performed with multi- slice acquisition and multi-planar and/or 3D reconstructions. CONTRAST MATERIAL: Intravenous: Omnipaque 350 Contrast volume:70mL Oral: No COMPARISON: CT CT RENAL COLIC WO from 06/24/2024 FINDINGS: ABDOMEN AND PELVIS: Abdomen: Celiac axis/mesenteric arteries: No evidence of occlusion or significant stenosis. Renal Arteries: No evidence of occlusion or significant stenosis. Aorta: No evidence of occlusion or significant stenosis. No aneurysm or dissection. Atherosclerotic calcification is present. Pelvis: Iliac Arteries: No evidence of occlusion or significant stenosis. Mild atherosclerotic calcification is seen in the common iliac arteries bilaterally. Common Femoral Arteries: No evidence of occlusion or significant stenosis. ABDOMEN: Lung bases: Unremarkable. Liver: Normal density. No measurable mass. Portal, Superior Mesenteric, and Splenic Veins: Unremarkable. There is no evidence of portal venous gas. Gallbladder and Biliary Tract: No radiodense calculus or dilation. Pancreas: Normal density, no abnormal calcifications or inflammatory process. Spleen: Calcified granuloma in the spleen. Adrenals: No masses seen. Kidneys: There is again seen marked right renal cortical atrophy. The left kidney is unremarkable. No radiodense stones or obstructive uropathy. No masses seen. Bowel: There are few diverticula in the colon but no evidence of acute diverticulitis. There is no bowel wall thickening or evidence of obstruction. There is no evidence of pneumatosis. Appendix is unremarkable. Peritoneal Cavity: No ascites, collection or mesenteric inflammatory response. No free air. Lymph Nodes: Within normal limits. Bones: Unremarkable. There is an old stable compression deformity of L1. Soft Tissues: Unremarkable. PELVIS: Bladder: Symmetric distention, no gross wall thickening. Reproductive Organs: Unremarkable as visualized. Lymph Nodes: Within normal limits. Bones: Within normal limits. IMPRESSION: 1. The bowel appears unremarkable without evidence of obstruction or inflammation. 2. Stable old right renal cortical atrophy and L1 compression deformity. 3. There is no evidence of an abdominal aortic aneurysm or dissection. 4. Mild atherosclerotic calcification is present. RADIATION DOSE DELIVERED: 502.36mGy.cm Total DLP DATA REPOSITORY: All CT scans at this facility are submitted to the National Radiology Data Registry (NRDR) Dose Index Registry (DIR) with the [employer] (A[employer]). RADIATION OPTIMIZATION: All CT scans at this facility use at least one of these dose optimization techniques: automated exposure control; mA and/or kV adjustment per patient size (includes targeted exams where dose is matched to clinical indication); or iterative reconstruction.
[2025-10-24 09:43] LABS: Magnesium 1.8 mg/dL (1.6-2.6)
[2025-10-24] MEDS: Normal Saline - Diluent 50 ML VIAL IJ (09:57)
[2025-10-24] MEDS: Omnipaque 350 MG/ML 100 ML BTL IJ (09:58)
[2025-10-24] MEDS: Normal Saline Flush 10 ML SYR IVP (09:59)
[2025-10-24 10:33] LABS: Vitamin B12 741 pg/mL (211-911)
[2025-10-24 10:57] LABS: Creatine Kinase 42 U/L (34-145)
== END ==
PROVIDERS: PCP Nurse Practitioner Family; Visit Provider Surgery
DX: M79.604 Pain in right leg (principal); M79.605 Pain in left leg; R10.84 Generalized abdominal pain; K52.9 Noninfective gastroenteritis and colitis, unspecified; K62.5 Hemorrhage of anus and rectum; I73.9 Peripheral vascular disease, unspecified; F17.200 Nicotine dependence, unspecified, uncomplicated
CPT/HCPCS: 82550; 74174; 82565; 82607; 83735; J3490

== ENCOUNTER → 2025-11-10 01:12 | Outpatient (CLI) | payer MEDICARE, MEDICAID, SELFPAY ==
--- NOTE | 2025-11-10 07:30 | DI.RAD_ITS ---
Exam(s) XR LUMBAR SPINE COMPLETE EXAM: XR LUMBAR SPINE COMPLETE CLINICAL HISTORY: ? worsening OA,bilat leg pain, lumbar spondylosis,h/o comp fx sppine,. TECHNIQUE: 2D digital imaging was performed. Five views. COMPARISON: MR MR LUMBAR SPINE WO from 07/18/[address] ABDOMEN PELVIS CTA from 10/24/2025 FINDINGS: BONES: No fracture or destructive lesion. Stable L1 compression fracture. The remaining vertebral body heights are maintained. Moderate facet hypertrophy identified at L4-5 and L5-S1. DISKS: Intervertebral disc spaces are maintained. ALIGNMENT: Mild dextroscoliosis. SOFT TISSUE: Calcification in the abdominal aorta. IMPRESSION: Stable L1 compression fracture. No new abnormalities. DATA REPOSITORY: RADIATION DOSE DELIVERED:
== END ==
LOC: DI 01:12
PROVIDERS: PCP Nurse Practitioner Family; Visit Provider Nurse Practitioner Family
DX: M79.604 Pain in right leg (principal); M79.605 Pain in left leg; M47.816 Spondylosis without myelopathy or radiculopathy, lumbar region; Z87.81 Personal history of (healed) traumatic fracture
CPT/HCPCS: 72110

== ENCOUNTER → 2025-11-18 09:23 | Outpatient (BNVA) | payer MEDICARE, MEDICAID, SELFPAY | PROVIDERS: PCP Nurse Practitioner Family; Referring Provider Nurse Practitioner Family; Visit Provider Surgery | DX: R10.84 Generalized abdominal pain (principal); K52.9 Noninfective gastroenteritis and colitis, unspecified | CPT/HCPCS: 99215 ==

== ENCOUNTER 2025-11-21 01:43 | Outpatient (CLI) | payer MEDICARE, MEDICAID, SELFPAY ==
[2025-11-21 14:53] LABS: Uric Acid 6.1 mg/dL (3.1-7.8)
[2025-11-22 10:41] LABS: Lyme Ab w Rflx to Lyme Confirm Positive (Negative)
[2025-11-22 11:28] LABS: Lyme IgG Ab Positive (Negative)
[2025-11-24 12:49] LABS: B. miyamotoi PCR Negative (Negative); Babesia divergens/MO-1 Negative (Negative); Ehrlichia muris eauclairensis Negative (Negative)
== END 2025-11-21 01:44 | disposition home or self-care (01) ==
LOC: LBO 01:43
PROVIDERS: PCP Nurse Practitioner Family; Referring Provider Nurse Practitioner Family; Visit Provider Nurse Practitioner Family
DX: M79.604 Pain in right leg (principal); M79.605 Pain in left leg
CPT/HCPCS: 36415; 86617; 87798; 84550; 86618